=== PATIENT | female | born 1960 | race Caucasian/White ===

== ENCOUNTER → 2020-05-19 08:50 | Outpatient (CLI) | payer OTHER, SELFPAY ==
[2020-05-19 10:17] LABS: Absolute Lymphocyte Count 1.46 X10^3/uL (0.83-4.51); Absolute Neutrophil Count 1.9 X10^3/uL (2.0-7.7); Basophil# 0.01 X10^3/uL; Basophil% 0.2 % (0-1); Eosinophil# 0.21 X10^3/uL; Eosinophils% 5.2 % (0-5); Hematocrit 38.2 % (37-47); Hemoglobin 11.6 g/dL (12.0-15.0); Lymphocyte # 1.46 X10^3/ul (4.0); Lymphocyte % 36.1 % (19-41); Mean Corp Hgb Conc 30.4 g/dL (32-36); Mean Corpuscular Hgb 26.2 pg (27.0-32.0); Mean Corpuscular Volume 86.2 fL (81-99); Mean Platelet Vol. 10.5 fl (6.2-12.0); Monocyte# 0.41 X10^3/uL; Monocyte% 10.1 % (0-10); NRBC Flagged by Analyzer 0 % (0-5); Neutrophil # 1.93 X10^3/uL (2.7-7.7); Neutrophil % 47.9 % (47-70); Platelet Count 164 K/mm3 (150-450); RBC Distribution Width CV 19.5 % (11.6-14.6); RBC Distribution Width SD 57.8 fl (35.1-43.9); Red Blood Count 4.43 M/mm3 (4.2-5.4)
[2020-05-19 10:42] LABS: Hemoglobin A1c 5.6 % (3.8-5.6)
[2020-05-19 10:47] LABS: ALB/GLOB Ratio 1.5 RATIO (0.9-2.4); AST(SGOT) 15 U/L (15-37); Alanine Aminotransfer ALT/SGPT 22 U/L (13-56); Alkaline Phosphatase 73 U/L (45-117); Anion Gap 4 (5-15); BUN 17 mg/dL (7-18); BUN/Creat Ratio 23.2 RATIO (10-20); Calcium,Total 9.1 mg/dL (8.5-10.1); Chloride 110 mmol/L (98-107); Cholesterol 171 mg/dL (200); Creatinine, Serum 0.73 mg/dL (0.55-1.02); EST Glomerular Filtration Rate 86 mL/min (>60); Est Glom Filt Rate - Afr Amer 104 mL/min (>60); Globulin 2.7 g/dL (2.2-4.2); Glucose 100 mg/dL (74-106); High Density Lipoprotein 58 mg/dL; Potassium 4.4 mmol/L (3.5-5.1); Protein, Total 6.7 g/dL (6.4-8.2); Sodium Level 144 mmol/L (136-145); Thyroid Stim Hormone (TSH) 2.87 uIU/mL (0.358-3.74); Triglycerides 63 mg/dL; Very Low Density Lipoprotein 13 mg/dL (5-40)
== END ==
PROVIDERS: PCP Family Medicine; Referring Provider Family Medicine; Visit Provider Family Medicine
DX: I10 Essential (primary) hypertension (principal); R73.01 Impaired fasting glucose; E03.9 Hypothyroidism, unspecified
CPT/HCPCS: 36415; 80053; 80061; 83036; 84443; 85025

== ENCOUNTER 2021-03-15 12:00 | Outpatient (CLI) | payer OTHER, SELFPAY ==
--- NOTE | 2021-03-15 12:05 | RAD_ITS ---
STUDY: X-RAY CHEST REASON FOR EXAM: Female, 60 years old. Elevated d-dimer. COVID. TECHNIQUE: Frontal and lateral views of the chest. COMPARISON: None. FINDINGS: The lungs are clear and expanded. There is no demonstrated pleural abnormality. Normal size heart. Normal mediastinum and kathrine. Normal visualized pulmonary arteries. Normal visualized aortic arch and descending thoracic aorta. Thoracic spondylosis. Normal visualized ribs, clavicles, and shoulders. There is no demonstrated abnormality of the visualized soft tissue structures of the upper abdomen. RAD/Chest PA and Lateral IMPRESSION: No active or acute cardiopulmonary disease. Electronically Signed: Mohit Cerna MD at 9:20 EST , Service support ,
[2021-03-15 15:22] LABS: Hematocrit 38.6 % (37-47); Mean Corp Hgb Conc 31.1 g/dL (32-36); Mean Corpuscular Hgb 25.3 pg (27.0-32.0); Mean Corpuscular Volume 81.4 fL (81-99); Mean Platelet Vol. 10.6 fl (6.2-12.0); Platelet Count 224 K/mm3 (150-450); RBC Distribution Width CV 17.3 % (11.6-14.6); RBC Distribution Width SD 49.9 fl (35.1-43.9); Red Blood Count 4.74 M/mm3 (4.2-5.4); White Blood Count 6.5 K/mm3 (4.4-11.0)
[2021-03-15 15:43] LABS: Anion Gap 8 (5-15); BUN 13 mg/dL (7-18); Calcium,Total 9.2 mg/dL (8.5-10.1); Chloride 111 mmol/L (98-107); Creatinine, Serum 0.87 mg/dL (0.55-1.02); EST Glomerular Filtration Rate 71 mL/min (>60); Est Glom Filt Rate - Afr Amer 86 mL/min (>60); Glucose 103 mg/dL (74-106); Potassium 3.6 mmol/L (3.5-5.1); Sodium Level 143 mmol/L (136-145)
[2021-03-15 15:51] LABS: D-Dimer Quantitative (DVT/PE) 0.82 FEU/ug/m (0.27-0.49)
== END 2021-03-15 23:59 | disposition short-term general hospital (02) ==
LOC: MTLAB 12:02
PROVIDERS: Referring Provider Family Medicine; Visit Provider Family Medicine
DX: U07.1 COVID-19 (principal)
CPT/HCPCS: 36415; 71046; 80048; 85027; 85379

== ENCOUNTER 2021-03-15 17:18 | Outpatient (CLI) | payer OTHER, SELFPAY ==
--- NOTE | 2021-03-15 17:19 | CT_ITS ---
STUDY: CTA CHEST REASON FOR EXAM: Female, 60 years old. elevated ddimer RADIATION DOSAGE (If Supplied By Facility): CTDIvol = ( 17.53 ) mGy, DLP = ( 440.66 ) mGycm TECHNIQUE: The examination was performed with the intravenous administration of IV 100mL Isovue-370. Post-processing of the angiographic images was performed, with multiplanar reformation and 3D reconstruction. Individualized dose optimization techniques were used for this CT. COMPARISON: None. FINDINGS: Normal enhancement of the main pulmonary artery and right and left pulmonary arteries. Normal enhancement of the bilateral peripheral pulmonary arteries. There is no demonstrated pulmonary embolism. Normal thoracic aorta and visualized great vessels. There is no demonstrated aortic dissection. Normal heart and pericardium. Normal mediastinum. Normal hilar regions. Normal visualized trachea and bronchi. The lungs are well expanded. Minimal subsegmental atelectasis or scarring at left base.. Normal pleura. Normal chest wall structures. Dorsal spine demonstrates arthritic changes. Small calcified nodule in left lobe of the liver.. CT/CTA Chest W/WO Contrast IMPRESSION: Minimal scarring or subsegmental atelectasis at left base. No acute cardiopulmonary pathology. No evidence for pulmonary embolus Electronically Signed: Jaren Guardado MD at 18:20 EST , Service support ,
== END 2021-03-15 23:59 | disposition short-term general hospital (02) ==
LOC: CT 17:19
PROVIDERS: PCP Family Medicine; Referring Provider Family Medicine; Visit Provider Family Medicine
DX: R79.1 Abnormal coagulation profile (principal)
CPT/HCPCS: 71275; Q9967

== ENCOUNTER 2021-04-20 17:02 | Outpatient (CLI) | payer OTHER, SELFPAY ==
[2021-04-20 18:41] LABS: ALB/GLOB Ratio 1.1 RATIO (0.9-2.4); AST(SGOT) 16 U/L (15-37); Alanine Aminotransfer ALT/SGPT 27 U/L (13-56); Albumin, Serum 3.9 g/dL (3.2-5.0); Alkaline Phosphatase 74 U/L (45-117); Anion Gap 5 (5-15); BUN 11 mg/dL (7-18); BUN/Creat Ratio 18.5 RATIO (10-20); Calcium,Total 8.6 mg/dL (8.5-10.1); Chloride 110 mmol/L (98-107); Cholesterol 173 mg/dL (200); EST Glomerular Filtration Rate 109 mL/min (>60); Est Glom Filt Rate - Afr Amer 132 mL/min (>60); Globulin 3.4 g/dL (2.2-4.2); Glucose 121 mg/dL (74-106); High Density Lipoprotein 47 mg/dL; Potassium 3.4 mmol/L (3.5-5.1); Protein, Total 7.3 g/dL (6.4-8.2); Sodium Level 142 mmol/L (136-145); Triglycerides 127 mg/dL; Very Low Density Lipoprotein 25 mg/dL (5-40)
== END 2021-04-20 23:59 | disposition home or self-care (01) ==
LOC: MFPLAB 17:03
PROVIDERS: PCP Family Medicine; Referring Provider Family Medicine; Visit Provider Family Medicine
DX: I10 Essential (primary) hypertension (principal); E03.9 Hypothyroidism, unspecified
CPT/HCPCS: 36415; 80053; 80061; 84443

== ENCOUNTER → 2022-05-06 | Outpatient (CLI) | payer OTHER, SELFPAY ==
[2022-05-06 10:43] LABS: Microalbumin,Random Urine 20.2 mg/L (NO RANGE EST.)
[2022-05-06 11:01] LABS: ALB/GLOB Ratio 1.5 RATIO (0.9-2.4); AST(SGOT) 17 U/L (15-37); Alanine Aminotransfer ALT/SGPT 21 U/L (13-56); Albumin, Serum 4.1 g/dL (3.2-5.0); Alkaline Phosphatase 72 U/L (45-117); Anion Gap 7 (5-15); BUN 20 mg/dL (7-18); BUN/Creat Ratio 28.4 RATIO (10-20); Chloride 106 mmol/L (98-107); Cholesterol 184 mg/dL (200); EST Glomerular Filtration Rate 90 mL/min (>60); Est Glom Filt Rate - Afr Amer 108 mL/min (>60); Globulin 2.8 g/dL (2.2-4.2); Glucose 159 mg/dL (74-106); High Density Lipoprotein 50 mg/dL; Potassium 3.5 mmol/L (3.5-5.1); Protein, Total 6.9 g/dL (6.4-8.2); Sodium Level 142 mmol/L (136-145); Thyroid Stim Hormone (TSH) 3.72 uIU/mL (0.358-3.74); Triglycerides 95 mg/dL; Very Low Density Lipoprotein 19 mg/dL (5-40)
[2022-05-06 11:07] LABS: Hemoglobin A1c 6.4 % (3.8-5.6)
== END | disposition home or self-care (01) ==
LOC: MTLAB 07:59
PROVIDERS: PCP Family Medicine; Referring Provider Family Medicine; Visit Provider Family Medicine
DX: I10 Essential (primary) hypertension (principal); E11.9 Type 2 diabetes mellitus without complications; E03.9 Hypothyroidism, unspecified
CPT/HCPCS: 36415; 80053; 80061; 82043; 83036; 84443

== ENCOUNTER → 2022-10-27 | Outpatient (CLI) | payer OTHER, SELFPAY ==
--- NOTE | 2022-10-31 07:44 | PFT ---
INTRODUCTION: The patient is a 62-year-old female who presents for pulmonary function studies secondary to a diagnosis of asthma. Respiratory therapy reported good patient effort. Bronchodilators were used during testing. INTERPRETATION: Forced expiration spirometry demonstrates no evidence of a large airways obstructive ventilatory defect. There was no significant response to aerosolized bronchodilators. Spirograms are of good quality and plateau normally. Body plethysmography was performed and revealed a decreased TLC to 3.45 L, 75% of predicted, indicative of a mild restrictive ventilatory impairment. Diffusing capacity by single breath CO was within normal limits. IMPRESSION: Mild restrictive ventilatory impairment with preserved diffusing capacity.
== END | disposition home or self-care (01) ==
LOC: PSN 09:22
PROVIDERS: PCP Family Medicine; Referring Provider Family Medicine; Visit Provider Family Medicine
DX: J45.909 Unspecified asthma, uncomplicated (principal)
CPT/HCPCS: 94060; 94726; 94729

== ENCOUNTER → 2022-12-30 | Outpatient (CLI) | payer OTHER, SELFPAY ==
[2022-12-30 18:27] LABS: Thyroid Stim Hormone (TSH) 1.73 uIU/mL (0.358-3.74)
== END | disposition home or self-care (01) ==
LOC: MTLAB 14:49
PROVIDERS: PCP Family Medicine; Referring Provider Family Medicine; Visit Provider Family Medicine
DX: E03.9 Hypothyroidism, unspecified (principal)
CPT/HCPCS: 36415; 84443

== ENCOUNTER 2024-01-11 17:30 | Inpatient (IN) | payer OTHER, SELFPAY ==
[2024-01-11] VITALS (8 sets, daily range): BP systolic 145–185; BP diastolic 77–100; PULSE 86–93; RESP 16–30; TEMP 36.6–36.8; O2SAT 92–99; BMI 33.6; BMI 33.0
--- NOTE | 2024-01-11 17:49 | EKG12_ITS ---
Test Reason : Blood Pressure : */* mmHG Vent. Rate : 91 BPM Atrial Rate : 91 BPM P-R Int : 118 ms QRS Dur : 78 ms QT Int : 402 ms P-R-T Axes : 75 24 -12 degrees QTcB Int : 494 ms Normal sinus rhythm Low voltage QRS T WAVE ABNORMALITY, NON SPECIFIC Prolonged QT Abnormal ECG Confirmed by ALFONZO DORMAN, NAVIN ([id number]), movie editor MOMO HENDERSON ([id number]) on 01/15/2024 10:11:25 AM Referred By: Confirmed By: NAVIN MEJÍA MD
--- NOTE | 2024-01-11 17:54 | EDS_ITS ---
HPI <NELA Lanier - Last Filed: 01/11/24 21:09> History of Present Illness Chief Complaint: Abn Labs Narrative Narrative: 63-year-old female with past medical history of hypertension, hypothyroidism, rheumatoid arthritis states she was sent in by her primary care doctor after outpatient blood work this morning showed abnormalities. She states since the beginning of December she was sick having a cough and shortness of breath. She took antibiotics and briefly felt better but then about 5 days ago again developed a dry cough and felt very short of breath on exertion. She states after going up 1 set of stairs she have to rest for about 20 minutes till her breathing would go back to normal. She does also feel slightly short of breath at rest. She states her chest hurts with coughing but denies exertional chest pain. No nausea or vomiting. No fever or chills. She has a history of asthma and uses a rescue inhaler as needed. She has never been smoker. [facility] <NELA Lanier - Last Filed: 01/11/24 21:09> [facility] Medical History (Updated 01/11/24 @ 22:23 by Annika Adam) Hypothyroidism Diabetes Migraines Hypertension Arthritis Asthma Rheumatoid arthritis Home Medications ?Medication ?Instructions ?Recorded ?Last Taken ?Type albuterol sulfate 2.5 mg/3 mL 1 inhalation UD 01/11/24 Unknown History (0.083 %) solution for nebulization albuterol sulfate 90 mcg/actuation 1 puff inhalation Q6H PRN PRN 01/11/24 Unknown History aerosol inhaler shortness of breath or wheezing fluticasone fur. 100 mcg-umeclid 1 ea inhalation DAILY 01/11/24 Unknown History 62.5 mcg-vilant 25 mcg inhalat.powder (Trelegy Ellipta) folic acid 1 mg tablet 1 mg PO DAILY 01/11/24 Unknown History hydroxychloroquine 200 mg tablet 200 mg PO DAILY 01/11/24 Unknown History infliximab-abda 100 mg intravenous IV Q7W RA 01/11/24 11/03/23 History solution (Renflexis) ipratropium bromide 42 mcg (0.06 2 spray intranasal TID 01/11/24 Unknown History %) nasal spray levothyroxine 25 mcg tablet 25 mcg PO DAILY 01/11/24 Unknown History lisinopril 20 mg tablet 20 mg PO DAILY 01/11/24 Unknown History metformin 500 mg tablet,extended 1,000 mg PO DAILY 01/11/24 Unknown History release 24 hr methotrexate sodium 2.5 mg tablet 20 mg PO QWEEK 01/11/24 Unknown History montelukast 10 mg tablet 10 mg PO DAILY 01/11/24 Unknown History tizanidine 2 mg tablet 2 - 6 mg PO QHS PRN PRN muscle 01/11/24 Unknown History spasticity Allergy/AdvReac Type Severity Reaction Status Date / Time No Known Allergies Allergy Verified 01/11/24 17:31 Surgical History (Updated 01/11/24 @ 22:23 by Annika Adam) History of appendectomy History of cholecystectomy Social History Smoking Status: Never smoker ROS <NELA Lanier - Last Filed: 01/11/24 21:09> ROS ED ROS Narrative Constitutional: Negative for fever, chills, malaise. CVS: Negative for chest pain, syncope. Respiratory: Negative for shortness of breath, cough, orthopnea. GI: Negative for abdominal pain, nausea, vomiting, diarrhea, constipation, melena, hematochezia. : Negative for dysuria, hematuria or frequency. Neuro: Negative for headache, motor/sensory dysfunction. Skin: Negative for rash, abscess, or wound. Musc: Negative for joint pain, swelling, trauma. Heme: Negative for easy bruising, bleeding, lymphadenopathy. EXAM <NELA Lanier - Last Filed: 01/11/24 21:09> Physical Exam Narrative Exam Narrative: CONST: Patient sitting in no acute distress. EYES: Normal inspection. NECK: Normal inspection. RESP: No respiratory distress, CTAB. CVS: Regular rate and rhythm, no murmur, no gallop. SKIN: Color normal, no rash, warm, dry, intact. EXTREMITIES: Normal appearance, no pedal edema. NEURO: Alert and answering questions appropriately. PSYCH: Normal affect. Const Vital Signs: 01/11/24 17:31 01/11/24 18:08 01/11/24 18:08 Temperature 98 F 98 F Temperature Source Temporal Temporal Pulse Rate 91 93 Respiratory Rate 16 21 H Respiratory Effort Normal Respiratory Depth Respiratory Pattern Normal Blood Pressure 159/100 H 155/78 H Blood Pressure Mean 119 103 Pulse Ox 99 96 Oxygen Delivery Method Room Air 11/07/24 19:06 01/11/24 19:31 01/11/24 19:58 Temperature 98.1 F Temperature Source Temporal Pulse Rate 86 92 Respiratory Rate 23 H 18 Respiratory Effort Normal Non-Labored Respiratory Depth Normal Respiratory Pattern Normal Blood Pressure 185/92 H Blood Pressure Mean 123 Pulse Ox 94 98 Oxygen Delivery Method Room Air Room Air 01/11/24 20:00 01/11/24 21:00 Temperature 98 F 98.2 F Temperature Source Oral Oral Pulse Rate 91 91 Respiratory Rate 25 H 30 H Respiratory Effort Respiratory Depth Respiratory Pattern Blood Pressure 157/77 H 173/87 H Blood Pressure Mean 103 115 Pulse Ox 92 96 Oxygen Delivery Method Room Air Room Air <Dr. Corey De Jesus DO - Last Filed: 01/11/24 23:00> Physical Exam Const Vital Signs: 01/11/24 17:31 01/11/24 18:08 01/11/24 18:08 Temperature 98 F 98 F Temperature Source Temporal Temporal Pulse Rate 91 93 Respiratory Rate 16 21 H Respiratory Effort Normal Respiratory Depth Respiratory Pattern Normal Blood Pressure 159/100 H 155/78 H Blood Pressure Mean 119 103 Pulse Ox 99 96 Oxygen Delivery Method Room Air 01/11/24 19:06 01/11/24 19:31 01/11/24 19:58 Temperature 98.1 F Temperature Source Temporal Pulse Rate 86 92 Respiratory Rate 23 H 18 Respiratory Effort Normal Non-Labored Respiratory Depth Normal Respiratory Pattern Normal Blood Pressure 185/92 H Blood Pressure Mean 123 Pulse Ox 94 98 Oxygen Delivery Method Room Air Room Air 01/11/24 20:00 01/11/24 21:00 Temperature 98 F 98.2 F Temperature Source Oral Oral Pulse Rate 91 91 Respiratory Rate 25 H 30 H Respiratory Effort Respiratory Depth Respiratory Pattern Blood Pressure 157/77 H 173/87 H Blood Pressure Mean 103 115 Pulse Ox 92 96 Oxygen Delivery Method Room Air Room Air MDM <NELA Lanier - Last Filed: 01/11/24 21:09> [facility] Narrative Medical decision making narrative: History gathered from: Patient, family members Differential: NSTEMI, pneumonia, PE among others Consults: Cardiology, hospitalist Patient was sent in for abnormal labs. She has had recent cough and dyspnea on exertion. She appears well and nontoxic. BP is slightly elevated 159/100, otherwise normal vital signs. Heart is regular rate and rhythm and lungs are clear. Overall exam is unremarkable. Outpatient labs from this morning show her troponin was 570 and it is trended up to 581. EKG is sinus rhythm with some T wave inversions in the lateral leads and flattening/depression of the ST segment in anterior lateral leads with no prior EKG for comparison. She does not have active chest pain but with recent exertional dyspnea this is concerning for NSTEMI versus rule out PE. She is also anemic at 8.9 but denies any source of bleeding. Prior to this she was 12.0 in 2021. She had an outpatient chest x-ray done earlier today which shows no acute process. D-dimer was high so CTA was ordered and shows no pulmonary embolism but there is a left lower lobe atelectasis versus infiltrate with small effusion. Since patient has had a cough and has a white count of 13.2 treat for pneumonia with Rocephin and Zithromax. I discussed the case with cardiology, Dr. Cintron who reviewed the EKG. He recommended giving the patient Lovenox and requested that repeat cardiac enzymes and EKG to be done in the morning. Case will be discussed with the hospitalist for admission. Lab Data Attestation: I reviewed the patient's lab results. Labs: Laboratory Results - last 24 hr 01/11/24 18:00 WBC 13.2 H RBC 3.66 L Hgb 8.9 L Hct 28.8 L MCV 78.7 L MCH 24.3 L MCHC 30.9 L RDW Std Deviation 52.1 H RDW Coeff of Jeison 18.7 H Plt Count 380 MPV 8.9 Immature Gran % (Auto) 2.900 H Neut % (Auto) 75.2 H Lymph % (Auto) 11.1 L [place] % (Auto) 9.2 Eos % (Auto) 1.1 Baso % (Auto) 0.5 Absolute Neuts (auto) 9.9 H Absolute Lymphs (auto) 1.46 Nucleated RBC % 0.2 D-Dimer Quant (PE/DVT) 1.58 H* Sodium 138 Potassium 3.3 L Chloride 106 Carbon Dioxide 25.0 Anion Gap 6 BUN 9 Creatinine 0.65 Estim Creat Clear Calc 88.73 Est GFR (MDRD) Af Amer 118 Est GFR (MDRD) Non-Af 98 BUN/Creatinine Ratio 13.8 Glucose 165 H Calcium 8.9 Troponin I High Sens 581 H* Radiography Diagnostic Testing: Clinical Impression(s) from Imaging Studies Chest CTA 01/11/24 18:32 IMPRESSION: Normal CTA chest examination, without a demonstrated pulmonary embolism or arterial dissection. Atelectasis or infiltrate in the left lung base with small effusion. Electronically Signed: Emiliano Regalado MD at 19:57 EST , EKG Initial EKG: Attestation: I personally reviewed and interpreted this EKG as follows: Interpretation: Sinus Rhythm Comments: Normal sinus rhythm at 91 bpm Inverted T waves lateral leads No acute ST elevation Prolonged QTc 494 ms Prior EKG tracings: not available for review Prior: No Prior <Dr. Corey De Jesus, - Last Filed: 01/11/24 23:00> [facility] Lab Data Labs: Laboratory Results - last 24 hr 01/11/24 18:00 WBC 13.2 H RBC 3.66 L Hgb 8.9 L Hct 28.8 L MCV 78.7 L MCH 24.3 L MCHC 30.9 L RDW Std Deviation 52.1 H RDW Coeff of Jeison 18.7 H Plt Count 380 MPV 8.9 Immature Gran % (Auto) 2.900 H Neut % (Auto) 75.2 H Lymph % (Auto) 11.1 L [place] % (Auto) 9.2 Eos % (Auto) 1.1 Baso % (Auto) 0.5 Absolute Neuts (auto) 9.9 H Absolute Lymphs (auto) 1.46 Nucleated RBC % 0.2 D-Dimer Quant (PE/DVT) 1.58 H* Sodium 138 Potassium 3.3 L Chloride 106 Carbon Dioxide 25.0 Anion Gap 6 BUN 9 Creatinine 0.65 Estim Creat Clear Calc 88.73 Est GFR (MDRD) Af Amer 118 Est GFR (MDRD) Non-Af 98 BUN/Creatinine Ratio 13.8 Glucose 165 H Calcium 8.9 Troponin I High Sens 581 H* Radiography Diagnostic Testing: Clinical Impression(s) from Imaging Studies Chest CTA 01/11/24 18:32 IMPRESSION: Normal CTA chest examination, without a demonstrated pulmonary embolism or arterial dissection. Atelectasis or infiltrate in the left lung base with small effusion. Electronically Signed: Emiliano Regalado MD at 19:57 EST , Treatment and Re-Evaluation :: I have personally performed a face to face assessment of the patient and have reviewed the PETER Note. I performed a substantive portion of the visit including all aspects of the following. My day findings include: History: Patient presents with shortness of breath that has been getting worse over the past 3 to 4 days. Patient is also noted some increased swelling in her legs. Patient states her breathing is worse with any exertion. Patient states that whenever she goes up a flight of stairs, she has to stay there for several minutes until she cannot catch her breath. Patient states she has been taking some Mucinex which has been helping with her cough. Patient denies any sputum production. Patient does admit to some pain in her left scapula. Patient denies any nausea or vomiting. Patient denies any fevers or chills. Exam: Vital signs are stable. Patient is afebrile. Patient is in no acute distress. Oral mucosa is pink and moist. Neck is supple. Trachea is midline. There is no JVD. Heart with regular rate and rhythm. Lungs are diminished bilaterally. There is adequate respiratory effort noted. Abdomen is soft. Bowel sounds are normal. There is no tenderness. Cranial nerves II through XII are intact. There are no focal motor or sensory deficits noted. Medical Decision Making: Differential diagnosis includes cardiac dysrhythmia, cardiac ischemia, electrolyte abnormality, pneumonia, pulmonary embolism, and bronchitis. CBC will be obtained to assess for leukocytosis and anemia. Basic metabolic profile will be obtained to assess for electrolyte abnormality and renal function. High-sensitivity troponin will be obtained to assess for cardiac ischemia. D-dimer will be obtained to assess for pulmonary embolism. EKG will be obtained to assess for cardiac dysrhythmia and cardiac ischemia. CTA of the chest will be obtained to assess for pulmonary embolism pneumonia and bronchitis. Patient was given aspirin here. EKG was obtained. On my independent interpretation it shows a normal sinus rhythm with a rate of 91. There are nonspecific ST-T wave changes noted in the lateral leads. There is no ST elevation noted. CBC was reviewed and showed a mild leukocytosis of 13.2. There is a mild anemia with a hemoglobin of 8.9 and hematocrit of 28.8. Basic metabolic profile was reviewed. Potassium was slightly low at 3.3. Glucose is slightly elevated at 165. D-dimer was reviewed and was elevated at 1.58. High- sensitivity troponin was reviewed and was elevated at 581. Because of the elevated D-dimer, CTA of the chest was obtained. There is no evidence of pulmonary embolism or aortic dissection. This was interpreted by the radiologist and was also dependently reviewed by myself. Patient was advised of her findings. Case was discussed with Dr. Cintron from cardiology. He recommended starting the patient on Lovenox. Case was discussed with the hospitalist. He will admit the patient to his service. Patient understood and was agreeable with the plan. All questions were answered. Discharge Plan Dx/Rx/DC Orders Clinical Impression: Pneumonia, Nonspecific ST-T wave electrocardiographic changes, Elevated tr oponin Disposition Disposition: Acute Care Hospital [facility] Discharge Date/Time: 01/11/24 21:53
[2024-01-11 18:17] LABS: Absolute Lymphocyte Count 1.46 X10^3/uL (0.83-4.51); Absolute Neutrophil Count 9.9 X10^3/uL (2.0-7.7); Basophil# 0.07 X10^3/uL; Basophil% 0.5 % (0-1); Eosinophil# 0.15 X10^3/uL; Eosinophils% 1.1 % (0-5); Hematocrit 28.8 % (37-47); Hemoglobin 8.9 g/dL (12.0-15.0); Lymphocyte # 1.46 X10^3/ul (0.83-4.51); Lymphocyte % 11.1 % (19-41); Mean Corp Hgb Conc 30.9 g/dL (32-36); Mean Corpuscular Hgb 24.3 pg (27.0-32.0); Mean Corpuscular Volume 78.7 fL (81-99); Mean Platelet Vol. 8.9 fl (6.2-12.0); Monocyte# 1.22 X10^3/uL; Monocyte% 9.2 % (0-10); NRBC Flagged by Analyzer 0.2 % (0-5); Neutrophil # 9.93 X10^3/uL (2.7-7.7); Neutrophil % 75.2 % (47-70); Platelet Count 380 K/mm3 (150-450); RBC Distribution Width CV 18.7 % (11.6-14.6); RBC Distribution Width SD 52.1 fl (35.1-43.9); Red Blood Count 3.66 M/mm3 (4.2-5.4); White Blood Count 13.2 K/mm3 (4.4-11.0)
[2024-01-11] MEDS: Aspirin 325 MG Tablet PO (18:21)
[2024-01-11 18:29] LABS: D-Dimer Quantitative (DVT/PE) 1.58 FEU/ug/m (0.27-0.49)
--- NOTE | 2024-01-11 18:32 | CT_ITS ---
STUDY: CTA CHEST REASON FOR EXAM: Female, 63 years old. dyspnea, high d dimer RADIATION DOSAGE (If Supplied By Facility): CTDIvol = ( 11.19 ) mGy, DLP = ( 484.20 ) mGycm TECHNIQUE: The examination was performed with the intravenous administration of IV 100mL Isovue-370. Post-processing of the angiographic images was performed, with multiplanar reformation and 3D reconstruction. Individualized dose optimization techniques were used for this CT. COMPARISON: None. FINDINGS: Normal enhancement of the main pulmonary artery and right and left pulmonary arteries. Normal enhancement of the bilateral peripheral pulmonary arteries. There is no demonstrated pulmonary embolism. Normal thoracic aorta and visualized great vessels. There is no demonstrated aortic dissection. Normal heart and pericardium. Normal mediastinum. Normal hilar regions. Normal visualized trachea and bronchi. The lungs are well expanded. Right lung is clear. On the left there is streaky and patchy pulmonary opacities of the lung bases consistent with atelectasis or infiltrate. There is also a very small left pleural effusion. There are degenerative changes of thoracic spine. Normal visualized upper abdomen. CT/CTA Chest W/WO Contrast IMPRESSION: Normal CTA chest examination, without a demonstrated pulmonary embolism or arterial dissection. Atelectasis or infiltrate in the left lung base with small effusion. Electronically Signed: Emiliano Regalado MD at 19:57 EST ,
[2024-01-11 18:35] LABS: Anion Gap 6 (5-15); BUN 9 mg/dL (7-18); BUN/Creat Ratio 13.8 RATIO (10-20); Calcium,Total 8.9 mg/dL (8.5-10.1); Chloride 106 mmol/L (98-107); Creatinine, Serum 0.65 mg/dL (0.55-1.02); EST Glomerular Filtration Rate 98 mL/min (>60); Est Glom Filt Rate - Afr Amer 118 mL/min (>60); Estimated Creatinine Clearance 88.73 ml/min; Glucose 165 mg/dL (74-106); Potassium 3.3 mmol/L (3.5-5.1); Sodium Level 138 mmol/L (136-145); Troponin-I HS 581 pg/mL (3.0-54.0)
[2024-01-11] MEDS: Ceftriaxone 1 GM/50 ML BAG IV (20:31)
[2024-01-11] MEDS: Enoxaparin 100 MG/ML Syringe 85 MG SC (20:32)
--- NOTE | 2024-01-11 20:51 | HP.PCM.HOS_ITS ---
HPI - General General
--- NOTE | 2024-01-11 20:51 | PCM.HP.STD ---
[facility] - General General Date of Admission: 01/11/24 Date of Service: 01/11/24 Chief Complaint: Chest Pain, Cough and GUTIERREZ. HPI Narrative JAYLIN CARROLL, is a 63 F with a past medical history of essential hypertension, hypothyroidism, obesity; with BMI of 33.7 present on admission, DM-2; of unknown control on Farxiga and Metformin, RA; on Hydroxychloroquine and Methotrexate, history of asthma, OA and recently diagnosed respiratory illness with likely bronchitis in early December 2023 for which she was treated with a course of oral antibiotics with subsequent improvement who presents to [facility] ER complaining of chest pain, cough and dyspnea on exertion. Ms. Carroll reports her symptoms began approximately 5 days prior to admission with a dry cough and GUTIERREZ that has progressively worsened since that time. She then has to rest ~20 minutes after climbing a flight of stairs which is new and unusual for her so she went to be evaluated by her PCP. She denies associated chest pain, palpitations, heart racing, fever, chills, nausea, vomiting or diaphoresis. She also denies a history of tobacco abuse or known CAD. Her PCP ordered outpatient labs that revealed an elevated troponin of 570 pg/mL consistent with suspected NSTEMI so she was sent in to the ER for further evaluation and treatment. In the ER she was noted to have an elevated d-dimer of 1.58 present on admission with CT evidence of LLL infiltrate consistent with Community-Acquired Pneumonia with a corresponding Leukocytosis of 13.2K with Left-shift (2.9%) of immature granulocytes present on admission with a follow up troponin in the ER trending up to 581 pg/mL this evening compounded by laboratory evidence of hypokalemia of 3.3 mmol/L present on admission and she was then admitted to the PCU for ongoing care for a stay that is expected to extend beyond 2 midnights. [facility] Medical History (Updated 01/12/24 @ 03:[address] Zeke Silva, ) Hypothyroidism Diabetes Migraines Hypertension Arthritis Asthma Rheumatoid arthritis Home Medications ?Medication ?Instructions ?Recorded ?Last Taken ?Type albuterol sulfate 2.5 mg/3 mL 1 inhalation DAILY PRN PRN sob 01/11/24 Unknown History (0.083 %) solution for nebulization albuterol sulfate 90 mcg/actuation 1 puff inhalation Q6H PRN PRN 01/11/24 Unknown History aerosol inhaler shortness of breath or wheezing fluticasone fur. 100 mcg-umeclid 1 ea inhalation DAILY 01/11/24 Unknown History 62.5 mcg-vilant 25 mcg inhalat.powder (Trelegy Ellipta) folic acid 1 mg tablet 1 mg PO DAILY 01/11/24 Unknown History hydroxychloroquine 200 mg tablet 200 mg PO DAILY 01/11/24 Unknown History infliximab-abda 100 mg intravenous IV Q7W RA 01/11/24 11/03/23 History solution (Renflexis) ipratropium bromide 42 mcg (0.06 2 spray intranasal TID PRN sinus 01/11/24 Unknown History %) nasal spray symptoms levothyroxine 25 mcg tablet 25 mcg PO DAILY 01/11/24 Unknown History lisinopril 20 mg tablet 20 mg PO DAILY 01/11/24 Unknown History metformin 500 mg tablet,extended 1,000 mg PO DAILY 01/11/24 Unknown History release 24 hr methotrexate sodium 2.5 mg tablet 20 mg PO QWEEK RA 01/11/24 01/07/24 History montelukast 10 mg tablet 10 mg PO DAILY 01/11/24 Unknown History tizanidine 2 mg tablet 2 - 6 mg PO QHS PRN PRN muscle 01/11/24 Unknown History spasticity naproxen 500 mg tablet 500 mg PO BID arthritis 01/12/24 01/11/24 09:00 History 500 mg Allergy/AdvReac Type Severity Reaction Status Date / Time No Known Allergies Allergy Verified 01/11/24 17:31 Surgical History (Updated 01/11/24 @ 22:23 by Annika Adam) History of appendectomy History of cholecystectomy Social History Smoking Status: Never smoker ROS ROS Narrative Review of Systems: Constitutional: Patient denies fever or chills. Eyes: Patient denies changes in vision or discharge from eyes. ENT: Patient denies runny nose, sore throat or ear pain. Resp: Patient admits to progressively worsening GUTIERREZ and nonproductive cough as per HPI. CV: Patient denies chest pain, palpitations or heart racing. GI: Patient denies abdominal pain, nausea, vomiting, diarrhea or constipation. : Patient denies dysuria or hematuria. MSK: Patient denies arthralgias or myalgias. Skin: Patient denies rash, abscess or jaundice. Psych: Patient denies symptoms of uncontrolled depression or anxiety. Neuro: Patient denies headache, paresthesias or focal neurologic deficits. Allergy: Patient denies lip swelling, tongue swelling or urticaria. Hematology: Patient denies easy bleeding or easy bruisability. Endocrinology: Patient denies polyuria, polydipsia or polyphagia. !4 point ROS otherwise negative except for positives noted above in HPI. Vital Signs Vital Signs Vital Signs: 01/11/24 17:31 01/11/24 18:08 01/11/24 18:08 Temperature 98 F 98 F Temperature Source Temporal Temporal Pulse Rate 91 93 Respiratory Rate 16 21 H Respiratory Effort Normal Respiratory Depth Respiratory Pattern Normal Blood Pressure 159/100 H 155/78 H Blood Pressure Mean 119 103 Pulse Ox 99 96 Oxygen Delivery Method Room Air 01/11/24 19:06 01/11/24 19:31 01/11/24 19:58 Temperature 98.1 F Temperature Source Temporal Pulse Rate 86 92 Respiratory Rate 23 H 18 Respiratory Effort Normal Non-Labored Respiratory Depth Normal Respiratory Pattern Normal Blood Pressure 185/92 H Blood Pressure Mean 123 Pulse Ox 94 98 Oxygen Delivery Method Room Air Room Air Weight Weight: 184 lb Body Mass Index (BMI) 33.6 Physical Exam Const alert, oriented x3 and no apparent distress Constitutional Narrative: Obese. General Appearance: cooperative HEENT normocephalic, head/scalp atraumatic, hearing grossly normal bilaterally and moist oral mucous membranes Eyes PERRL and EOMs intact bilaterally Neck no lymphadenopathy and supple Resp Resp Narrative: Decreased breath sounds over LLL. Cardio regular rate and regular rhythm GI normal to inspection, nondistended, normoactive bowel sounds, soft to palpation, non-tender and non-distended GI Narrative: Obese. Extremity normal to inspection, full ROM and no clubbing, cyanosis or edema Skin Skin Narrative: Patient has no evidence of rash, abscess or jaundice. Neuro oriented x3, CN's II-XII intact bilaterally, moves all extremities and no focal motor deficits Sensorium / Orientation: awake, alert, oriented to person, oriented to place and oriented to time Speech: speech normal Psych affect normal Results Medical Records Data Attestation: I reviewed the patient's medical records Lab / Micro Data Attestation: I reviewed the patient's lab results. 01/11/24 18:00 01/11/24 18:00 Labs: Laboratory Results - last 24 hr 01/11/24 18:00: WBC 13.2 H, RBC 3.66 L, Hgb 8.9 L, Hct 28.8 L, MCV 78.7 L, MCH 24.3 L, MCHC 30.9 L, RDW Std Deviation 52.1 H, RDW Coeff of Jeison 18.7 H, Plt Count 380, MPV 8.9, Immature Gran % (Auto) 2.900 H, Neut % (Auto) 75.2 H, Lymph % (Auto) 11.1 L, [place] % (Auto) 9.2, Eos % (Auto) 1.1, Baso % (Auto) 0.5, Absolute Neuts (auto) 9.9 H, Absolute Lymphs (auto) 1.46, Nucleated RBC % 0.2, D-Dimer Quant (PE/DVT) 1.58 H*, Sodium 138, Potassium 3.3 L, Chloride 106, Carbon Dioxide 25.0, Anion Gap 6, BUN 9, Creatinine 0.65, Estim Creat Clear Calc 88.73, Est GFR (MDRD) Af Amer 118, Est GFR (MDRD) Non-Af 98, BUN/Creatinine Ratio 13.8, Glucose 165 H, Calcium 8.9, Troponin I High Sens 581 H* Imaging Radiology Impression Chest CTA 01/11/24 18:32 IMPRESSION: Normal CTA chest examination, without a demonstrated pulmonary embolism or arterial dissection. Atelectasis or infiltrate in the left lung base with small effusion. Electronically Signed: Emiliano Regalado MD at 19:57 EST , Assessment & Plan Assessment/Plan (1) NSTEMI, initial episode of care: (2) Pneumonia: QUALIFIERS: Laterality: left Lung location: lower lobe of lung Pneumonia type: due to unspecified organism Qualified Code(s): J18.9 - Pneumonia, unspecified organism (3) Hypokalemia: (4) Obesity (BMI 30.0-34.9): (5) Diabetes mellitus, type 2: QUALIFIERS: Diabetes mellitus complication status: without complication Diabetes mellitus senior care insulin use: without senior care use Qualified Code(s): E11.9 - Type 2 diabetes mellitus without complications (6) Rheumatoid arthritis: QUALIFIERS: Rheumatoid arthritis location: unspecified site Rheumatoid factor presence: unspecified presence Qualified Code(s): M06.9 - Rheumatoid arthritis, unspecified PLAN: Plan 1. NSTEMI; evidenced by elevated troponin of 570 pg/mL as outpatient rising to 581 pg/mL present on admission - Admit to PCU for treatment under the NSTEMI protocol. Serialize troponin. Maintain ECASA and full-dose Lovenox plus add Plavix and statin. Check echocardiogram to evaluate LVEF. Give SL NTG prn angina. Give IV Morphine prn for severe (level 6-10/10) pain. Finally, we will consult [facility] to see this patient on-rounds in the AM for further recommendations regarding LHC this admission with help appreciated in advance. 2. CT evidence of LLL infiltrate consistent with Community-Acquired Pneumonia with a corresponding Leukocytosis of 13.2K with Left-shift (2.9%) of immature granulocytes present on admission complicating #1 - Continue IV Rocephin and IV Azithromycin begun in the ER and await culture and sensitivity data. Check urinary antigens for Streptococcus pneumonia and Legionella. Give Tylenol prn for [id number] (level 1-5/10) pain or fever. Give Mucinex 600 mg PO BID. 3. Hypokalemia of 3.3 mmol/L present on admission compounding #1 & #2 - Give supplemental potassium chloride and then recheck level in a.m. to ensure improvement. 4. Obesity; with BMI of 33.7 present on admission - Weight loss will be recommended. Check TSH. This complicates her case and may hamper recovery. 5. DM-2; of unknown control on Farxiga and Metformin adding to the medical complexity of #1 - #3 - Hold Metformin ~72 hours after IV contrast dye. ADA diet. FSBS q. AC/HS plus SSI. Check HgbA1c to objectively evaluate quality of diabetic control. 6. Essential hypertension - Resume current regimen plus give prn Hydralazine IV for systolic blood pressure > 160 mmHg. 7. Hypothyroidism - Current dose of Synthroid to continue as previous. Check TSH. 8. RA; on Hydroxychloroquine and Methotrexate - Maintain current treatment. 9. History of asthma - Stable without evidence of acute flare at this time. Resume prn nebulizers. 10. OA - Give Tylenol prn. 11. DVT prophylaxis - Patient already on full-dose Lovenox for #1. Total time: Approximately (but not less than) 75 minutes. Charges/Coding Visit Charges Inpatient E&M: 10571 Init Hosp L3
[2024-01-11] MEDS: Azithromycin 500 MG in Dextrose 5%-Water (250mL Bag) 250 ML 250 MG IV (21:32)
--- NOTE | 2024-01-11 21:55 | ECHOCS_ITS ---
Reason For Study: S/P ID Procedure This was a 2D Doppler, Color Flow transthoracic echocardiogram. The study was technically difficult. Poor apical accoustic window. Contrast injection was performed. Exam performed portable in patient room. Left Ventricle Normal LV size. Left ventricular systolic function is normal. The estimated ejection fraction is 60 %. No evidence for diastolic dysfunction. Right Ventricle Normal RV size. Normal systolic function. Atria The left atrium is mildly enlarged. Normal right atrium. Port catheter tip noted in right atrium. Mitral Valve The mitral valve is structurally normal. No prolapse or stenosis seen. Mild-Moderate (1-2+) mitral valve insufficiency. Tricuspid Valve Normal tricuspid valve. Moderate (2+) tricuspid valve insufficiency. Pulmonary artery systolic pressure is 33 mmHg. Aortic Valve Trisinus/trileaflet aortic valve. Trivial aortic valve insufficiency. Pulmonic Valve Normal pulmonic valve. Great Vessels Normal aortic root. Pericardium/Pleural No pericardial effusion. MMode/2D Measurements & Calculations LVIDd: 4.7 cm IVSd: 1.0 cm Ao root diam: 3.0 cm LVIDs: 3.1 cm LVPWd: 1.0 cm RVDd: 3.4 cm FS: 34.0 % asc Aorta Diam: 3.7 cm LAV(MOD-bp): 61.3 ml LVAd ap4: 24.5 cm2 LAV(MOD-bp) Indexed: 33.3 ml/m2 LVLd ap4: 7.5 cm LAV(MOD-sp2): 61.4 ml EDV(MOD-sp4): 69.2 ml LAV(MOD-sp4): 60.2 ml EDV(sp4-el): 68.0 ml LVAs ap4: 13.6 cm2 LVLs ap4: 6.0 cm ESV(MOD-sp4): 26.2 ml ESV(sp4-el): 26.3 ml EF(MOD-sp4): 62.1 % EF(sp4-el): 61.3 % SV(MOD-sp4): 42.9 ml SV(sp4-el): 41.7 ml LA A4 area: 20.9 cm2 SI(MOD-sp4): 23.3 ml/m2 LA dimension(2D): 4.1 cm RA A4 area: 15.7 cm2 TAPSE: 1.1 cm Time Measurements MV dec time: 0.16 sec Doppler Measurements & Calculations MV E max jose: 94.0 cm/sec Lat Peak E' Jose: 18.4 cm/sec Med Peak E' Jose: 12.7 cm/sec MV A max jose: 54.1 cm/sec E/E' lat: 5.1 E/E' med: 7.4 MV E/A: 1.7 MV V2 max: 100.8 cm/sec MV P1/2t max jose: 112.0 cm/sec Ao V2 max: 111.8 cm/sec MV max P.1 mmHg MV P1/2t: 53.7 msec Ao max P.0 mmHg MV V2 mean: 59.5 cm/sec Ao V2 mean: 75.4 cm/sec MV mean P.6 mmHg MV dec slope: 610.7 cm/sec2 Ao mean P.6 mmHg MV V2 VTI: 25.5 cm MVA(P1/2t): 4.1 cm2 Ao V2 VTI: 19.2 cm AV (velocity ratio): 0.88 LV V1 max: 85.7 cm/sec MR max jose: 531.2 cm/sec PA V2 max: 81.2 cm/sec LV V1 max P.9 mmHg MR max P.9 mmHg PA V2 mean: 53.0 cm/sec LV V1 mean P.6 mmHg MR mean jose: 436.6 cm/sec LV V1 mean: 58.2 cm/sec MR mean P.4 mmHg LV V1 VTI: 17.0 cm MR VTI: 159.0 cm TR max jose: 272.6 cm/sec TR max P.7 mmHg ECHO/Echo Complete W/ Contrast Interpretation Summary The estimated ejection fraction is 60 %. No evidence for diastolic dysfunction. Mild-Moderate (1-2+) mitral valve insufficiency. Moderate (2+) tricuspid valve insufficiency. The study was technically difficult. Contrast injection was performed. Ordering Physician: Zeke Silva Referring Physician: Paul Huston Performed By: Saray Garcia RDCS, RVT
--- NOTE | 2024-01-11 22:42 | EKG12_ITS ---
Test Reason : NSTEMI ADMIT Blood Pressure : */* mmHG Vent. Rate : 88 BPM Atrial Rate : 88 BPM P-R Int : 122 ms QRS Dur : 82 ms QT Int : 350 ms P-R-T Axes : 74 19 -88 degrees QTcB Int : 423 ms Normal sinus rhythm Nonspecific T wave abnormality Abnormal ECG When compared with ECG of 11-Jan-2024 18:01, MANUAL COMPARISON REQUIRED DATA IS UNCONFIRMED Confirmed by ALFONZO DORMAN, NAVIN ([id number]), non linear editor BENY HARRISON ([id number]) on 01/15/2024 12:36:38 PM Referred By: LAWRENCE Confirmed By: NAVIN MEJÍA MD
[2024-01-11] MEDS: 0.9% Normal Saline (1000mL) 1,000 ML 70 ML IV (23:18)
[2024-01-11] MEDS: Potassium Chloride Oral Tablet 20 MEQ 60 MEQ PO (23:19)
[2024-01-11] MEDS: Atorvastatin Calcium 80 MG Tablet PO (23:19)
[2024-01-11 23:20] LABS: Troponin-I HS 624 pg/mL (3.0-54.0)
[2024-01-11] MEDS: Doxycycline 100 MG in Dextrose 5%-Water (250mL Bag) 250 ML 250 MG IV (23:21)
[2024-01-11] MEDS: Ipratropium Bromide 0.06% NASAL SPRAY 2 SPRAY NASAL (23:22)
[2024-01-11] MEDS: guaiFENesin 600 MG Tablet PO (23:23)
[2024-01-11] MEDS: Acetaminophen 325 MG Tablet 650 MG PO (23:24)
[2024-01-11] MEDS: tiZANidine HCl 2 MG Tablet PO (23:24)
[2024-01-11] MEDS: MELATONIN 3 MG TABLET PO (23:24)
[2024-01-11 23:40] LABS: Bedside Glucose 155 mg/dL (74-106)
[2024-01-12] VITALS (17 sets, daily range): BP systolic 100–168; BP diastolic 62–95; PULSE 77–92; RESP 14–20; TEMP 36.5–37; O2SAT 94–100; BMI 33.3
--- NOTE | 2024-01-12 05:55 | EKG12_ITS ---
Test Reason : PRE-OP Blood Pressure : */* mmHG Vent. Rate : 76 BPM Atrial Rate : 76 BPM P-R Int : 138 ms QRS Dur : 80 ms QT Int : 416 ms P-R-T Axes : 72 31 17 degrees QTcB Int : 468 ms Normal sinus rhythm Nonspecific T wave abnormality Abnormal ECG When compared with ECG of 11-Jan-2024 22:44, MANUAL COMPARISON REQUIRED DATA IS UNCONFIRMED Confirmed by ALFONZO DORMAN, NAVIN ([id number]), digital editor BENY HARRISON ([id number]) on 01/15/2024 12:36:54 PM Referred By: Confirmed By: NAVIN MEJÍA MD
[2024-01-12] MEDS: Ipratropium Bromide 0.06% NASAL SPRAY 2 SPRAY NASAL ×2 (06:12→20:09)
[2024-01-12] MEDS: Levothyroxine 25 MCG TABLET PO (06:13)
[2024-01-12] MEDS: Lisinopril 20 MG Tablet PO (06:14)
[2024-01-12] MEDS: Aspirin 81 MG TAB.CHEW PO (06:14)
[2024-01-12] MEDS: Clopidogrel Bisulfate 75 MG Tablet PO (06:14)
[2024-01-12 06:41] LABS: Absolute Lymphocyte Count 1.67 X10^3/uL (0.83-4.51); Absolute Neutrophil Count 7.3 X10^3/uL (2.0-7.7); Basophil# 0.04 X10^3/uL; Basophil% 0.4 % (0-1); Eosinophil# 0.16 X10^3/uL; Eosinophils% 1.5 % (0-5); Hematocrit 25.7 % (37-47); Hemoglobin 7.9 g/dL (12.0-15.0); Lymphocyte # 1.67 X10^3/ul (0.83-4.51); Mean Corp Hgb Conc 30.7 g/dL (32-36); Mean Corpuscular Hgb 24.1 pg (27.0-32.0); Mean Corpuscular Volume 78.4 fL (81-99); Monocyte# 1.13 X10^3/uL; Monocyte% 10.8 % (0-10); NRBC Flagged by Analyzer 0 % (0-5); Neutrophil # 7.28 X10^3/uL (2.7-7.7); Neutrophil % 69.7 % (47-70); Platelet Count 289 K/mm3 (150-450); RBC Distribution Width SD 52.6 fl (35.1-43.9); Red Blood Count 3.28 M/mm3 (4.2-5.4); White Blood Count 10.5 K/mm3 (4.4-11.0)
--- NOTE | 2024-01-12 06:58 | PCM.PN.HOSP ---
Reason for Visit Reason for Visit: Diagnoses Type 2 diabetes mellitus without complications (01/11/24) Obesity, class 1 (01/11/24) Hypokalemia (01/11/24) Non-ST elevation (NSTEMI) myocardial infarction (01/11/24) Pneumonia, unspecified organism (01/11/24) Rheumatoid arthritis, unspecified (01/11/24) Subjective Subjective Patient denies any further chest tightness or banding around her chest but does states she has reproducible discomfort with palpation to her focal left chest and left shoulder which she reports more severe with coughing and palpation of these regions. She notes feeling less dyspneic and has had less coughing but fatigued. Discussed plan of care with patient given elevated troponins and her current situation with also reviewed with cardiology with plan to continue aspirin, Plavix, Lovenox, maintain on telemetry monitoring, echocardiogram obtained and given hemoglobin mildly decreased and unclear exact baseline plan to obtain guaiac and if this is negative then would pursue cardiac stress testing otherwise patient may need GI evaluation per cardiology request and resolution of her pneumonia prior to cardiac catheterization. She denies any specific black stools or tarry stools or bright red blood. Patient denies fevers, chills, nausea, emesis, abdominal pain. Objective Data Objective Data Vital Signs: Vital Signs Temp Pulse Resp BP Pulse Ox O2 Del Method 98.3 F 77 16 100/62 99 Room Air 01/12/24 06:23 01/12/24 06:23 01/12/24 06:23 01/12/24 06:23 01/12/24 06:23 01/12/24 06:24 Oxygen Delivery Method Room Air Weight: 180 lb 5.41 oz Body Mass Index (BMI) 33.0 Intake & Output: Intake and Output for Last 24 Hours 01/10/24 01/11/24 01/12/24 23:59 23:59 23:59 Intake Total 305 / 305 260 / 260 Output Total 100 / 100 Balance 305 / 205 160 / 160 Lab / Micro Data 01/12/24 10:10 01/12/24 06:24 Labs: Laboratory Results - last 24 hr 01/11/24 18:00: WBC 13.2 H, RBC 3.66 L, Hgb 8.9 L, Hct 28.8 L, MCV 78.7 L, MCH 24.3 L, MCHC 30.9 L, RDW Std Deviation 52.1 H, RDW Coeff of Jeison 18.7 H, Plt Count 380, MPV 8.9, Immature Gran % (Auto) 2.900 H, Neut % (Auto) 75.2 H, Lymph % (Auto) 11.1 L, [place] % (Auto) 9.2, Eos % (Auto) 1.1, Baso % (Auto) 0.5, Absolute Neuts (auto) 9.9 H, Absolute Lymphs (auto) 1.46, Nucleated RBC % 0.2, D-Dimer Quant (PE/DVT) 1.58 H*, Sodium 138, Potassium 3.3 L, Chloride 106, Carbon Dioxide 25.0, Anion Gap 6, BUN 9, Creatinine 0.65, Estim Creat Clear Calc 88.73, Est GFR (MDRD) Af Amer 118, Est GFR (MDRD) Non-Af 98, BUN/Creatinine Ratio 13.8, Glucose 165 H, Calcium 8.9, Troponin I High Sens 581 H* 01/11/24 22:11: POC Glucose 155 H 01/11/24 22:30: Troponin I High Sens 624 H* 01/12/24 06:24: WBC 10.5, RBC 3.28 L, Hgb 7.9 L, Hct 25.7 L, MCV 78.4 L, MCH 24.1 L, MCHC 30.7 L, RDW Std Deviation 52.6 H, RDW Coeff of Jeison 19.0 H, Plt Count 289, MPV 9.0, Immature Gran % (Auto) 1.600 H, Neut % (Auto) 69.7, Lymph % (Auto) 16.0 L, [place] % (Auto) 10.8 H, Eos % (Auto) 1.5, Baso % (Auto) 0.4, Absolute Neuts (auto) 7.3, Absolute Lymphs (auto) 1.67, Nucleated RBC % 0 Radiography Diagnostic Testing: Radiology Impression Chest CTA 01/11/24 18:32 IMPRESSION: Normal CTA chest examination, without a demonstrated pulmonary embolism or arterial dissection. Atelectasis or infiltrate in the left lung base with small effusion. Electronically Signed: Emiliano Regalado MD at 19:57 EST , Physical Exam Narrative Physical Examination: General: Awake, alert, oriented x 3 and cooperative, laying in the PCU bed, fatigued, ill-appearing. Skin: Normal color, normal turgor, no icterus, no cyanosis. HEENT: AT/NC, EOMI, PERRLA, mildly dry MM. Lungs: Mildly diminished, greater bases, left greater than right, no evidence of any distress, no rales, ronchi or wheezing. Heart: Currently regular rate and rhythm; no gallop, rub audible. Repeat reproducible chest discomfort with palpation of the left focal chest and also behind the left shoulder blade. Abdomen: Soft, obese, NTTP, ND, normal BS. Extremities: No cyanosis, clubbing, or edema. Neurological: Patient awake, alert, oriented as noted, cognitive function intact; pupils equally reactive to light and accommodation, cranial nerves gross normal, moving all 4 extremities, no focal deficits, strength moderately global decrease secondary to acute presentation. Psychiatric: Affect appears fatigued, ill-appearing, no acute evidence of depressive or anxiety feelings. Assessment & Plan Assessment/Plan (1) NSTEMI, initial episode of care: PLAN: Plan The patient is a 63 y/o F w/ PMHx: Obesity, Diabetes mellitus type II, Asthma with allergic rhinitis, Rheumatoid arthritis, HTN, Chronic anemia, Hypothyroidism who presents to the [facility] ED on 01/12/24 with history of chest discomfort, dyspnea worse with exertion and cough with fatigue and malaise prompting eventual ED evaluation. #1. Acute NSTEMI, suspected type II, demand secondary to #2: EKG with sinus rhythm with inverted T waves laterally with QTc 494 with no prior EKGs for comparison. Chest CTA with no evidence of any PE or dissection with atelectasis and/or infiltrate in the left lung base with small effusion. Initial cardiac troponin 570. Patient admitted to PCU, maintain on a monitored bed, serial cardiac enzymes continued with repeat troponin 581-> 624-> 466. Patient magnesium level normal. Initiated upon admission on therapeutic Lovenox which is continued. Maintained on aspirin, Plavix, statin therapy. Beta-tamir initiation held given lower blood pressure. FLP with total cholesterol 69, triglyceride 71, LDL 30, VLDL 14, HDL 25. Echocardiogram with EF 60%, no evidence of any diastolic dysfunction, mild to moderate MVI, moderate TBI. As noted to given hemoglobin level preference for cardiology to obtain guaiac and if negative would pursue cardiac catheterization however if positive would require GI evaluation previous to this as well as resolution of pneumonia. #2. Left lower lobe pneumonia, unclear organism: Will maintain on oxygen with wean as tolerated to room air, ATC budesonide/DuoNeb therapies, PRN albuterol, maintained on IV Rocephin and azithromycin, HOB, IS parameters w/ pending sputum cultures and urine antigens. Bld cx x 2 obtained in the ED. Will obtain AM oxygenation trial for discharge planning daily. #3. Chronic anemia, Currently appears Microcytic, appears to be consistent at least in part with anemia of chronic disease: Admission Hgb 9.4, MCV 79.1, previous patient has been remotely 11-12 range thus suspect there is some chronic component of anemia. Most recent repeat 01/12/2024 CBC with hemoglobin 8.4, MCV 79.9, iron 11, TIBC 163, iron saturation 6.7, ferritin 290 consistent with at least in part anemia of chronic disease, stool guaiac is pending and as noted if this is positive cardiology requested that gastroenterology be consulted prior to consideration of cardiac catheterization. Will continue to trend CBC. #4. Chronic asthma with allergic rhinitis: Will maintain on oxygen with wean as tolerated to room air, hold home inhalers in the interim maintain on ATC budesonide/DuoNeb therapies, PRN albuterol, HOB, IS parameters, continue patient home montelukast regimen. #5. Hypertension: Temporarily holding patient lisinopril given low blood pressure in the acute infectious presentation, once clinically improves may need to consider beta-tamir therapy but given her underlying asthma will review with cardiology previous. #6. Diabetes mellitus type II: Hold oral home regimen, ADA diet, accu checks w/ ISS. #7. Rheumatoid arthritis: Complicates presentation, given infectious presentation currently will temporally hold Plaquenil, resume once clinically appropriate. Patient is not on any chronic steroid regimen. #8. Hypothyroidism: Will continue home levothyroxine regimen, TSH normal. #9. Obesity: Weight loss and lifestyle changes encouraged. #10. DVT prophylaxis: Continue therapeutic Lovenox. #11. CODE STATUS: Full Code status. Charges/Coding Visit Charges Inpatient E&M: 80870 Subs Hosp L3
[2024-01-12] MEDS: Budesonide Respules 0.5 MG/2 ML AMPUL.NEB. INHALATION ×2 (07:13→20:39)
[2024-01-12] MEDS: Ipratropium/Albuterol Sulfate 3 ML AMPUL.NEB INHALATION ×3 (07:13→20:39)
--- NOTE | 2024-01-12 08:46 | CON.PCM.CA_ITS ---
<Statement entered by Antolin Wolfe MD - 01/12/24 15:43> Pt seen & evaluated w/PETER. I personally interviewed & exam the pt. I was involved in all aspects of pt's orders, interpretation of results & treatment I independently examined this patient, review all the current lab evaluation Which included the high sensitive troponin which was significant elevated Patient has substernal chest pain with some radiation to the left shoulder and to the back. She also have anemia with a hemoglobin around 8.4 today. I reviewed the echocardiogram which showed LV function is within normal with no significant wall motion abnormality Based on her clinical presentation patient underwent cardiac catheterization. Which revealed moderate disease with some haziness involving the proximal RCA stenosis of around 40-50% LAUREL-3 flow noted in the RCA. Rest of the coronary arteries showed left main LAD left circumflex normal The LAD has the apical portion of the LAD had significant atherosclerosis which is a small vessel. I discussed the cardiac care plan which will include an antiplatelet with Plavix Due to history of anemia with recommend GI evaluation No aspirin at present time. Patient remained stable clinically does not have any further episode of chest pain and hemodynamically been stable The technical lead showed normal sinus rhythm An echocardiographic evaluation showed LV function is within normal. 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 Echocardiogram demonstrated preserved ejection fraction with no wall motion abnormality. Based on findings of diagnostic heart catheterization further recommendations will be made * Patient's blood pressure has been controlled. In regards to her blood pressure will continue with her home medication. Based on heart catheterization we will decide if any changes need to be done. Beta-tamir was not added overnight due to some hypotension. * Anemia: Recommend that we continue workup with guaiac to see if this is positive. If this is positive recommend that she follow-up with GI. HPI Consult Data Date of Consult: 01/12/24 HPI Narrative HPI Narrative: JAYLIN MONTIEL, is a 63 F who presented to [facility] on 01/11/2004 24 for chest pain, cough and shortness of breath with exertion. Last month she was treated with antibiotics for bronchitis because she did not feel any better. She presented to the emergency room. She also notes that 5 days prior to admission she had a dry cough and shortness of breath that progressively worsened over that time. When she does have shortness of breath she needs to stop and rest which is unusual for her. Troponin was elevated at 570 which is consistent with a non-STEMI. She did undergo CT scan for an elevated D-dimer, CT scan demonstrated left lower lobe infiltrate consistent with community-acquired pneumonia. She was admitted to PCU. Troponins have trended 570, 581, 624. She is also noted to be anemic, hemoglobin initially 9.4 has trended to 7.9. She does have a history of hypertension, rheumatoid arthritis and diabetes. [facility] Medical History (Updated 01/12/24 @ 14:43 by Ana Rosa RONDON, PA) Hypothyroidism Diabetes Migraines Hypertension Arthritis Asthma Rheumatoid arthritis Home Medications ?Medication ?Instructions ?Recorded ?Last Taken ?Type albuterol sulfate 2.5 mg/3 mL 1 inhalation DAILY PRN PRN sob 01/11/24 Unknown History (0.083 %) solution for nebulization albuterol sulfate 90 mcg/actuation 1 puff inhalation Q6H PRN PRN 01/11/24 Unknown History aerosol inhaler shortness of breath or wheezing fluticasone fur. 100 mcg-umeclid 1 ea inhalation DAILY 01/11/24 Unknown History 62.5 mcg-vilant 25 mcg inhalat.powder (Trelegy Ellipta) folic acid 1 mg tablet 1 mg PO DAILY 01/11/24 Unknown History hydroxychloroquine 200 mg tablet 200 mg PO DAILY 01/11/24 Unknown History infliximab-abda 100 mg intravenous IV Q7W RA 01/11/24 11/03/23 History solution (Renflexis) ipratropium bromide 42 mcg (0.06 2 spray intranasal TID PRN sinus 01/11/24 Unknown History %) nasal spray symptoms levothyroxine 25 mcg tablet 25 mcg PO DAILY 01/11/24 Unknown History lisinopril 20 mg tablet 20 mg PO DAILY 01/11/24 Unknown History metformin 500 mg tablet,extended 1,000 mg PO DAILY 01/11/24 Unknown History release 24 hr methotrexate sodium 2.5 mg tablet 20 mg PO QWEEK RA 01/11/24 01/07/24 History montelukast 10 mg tablet 10 mg PO DAILY 01/11/24 Unknown History tizanidine 2 mg tablet 2 - 6 mg PO QHS PRN PRN muscle 01/11/24 Unknown History spasticity naproxen 500 mg tablet 500 mg PO BID arthritis 01/12/24 01/11/24 09:00 History 500 mg Allergy/AdvReac Type Severity Reaction Status Date / Time No Known Allergies Allergy Verified 01/11/24 17:31 Surgical History (Updated 01/11/24 @ 22:23 by Annika Adam) History of appendectomy History of cholecystectomy Social History Smoking Status: Never smoker ROS Constitutional Constitutional: Reports systems reviewed and no addt'l complaints, except as documented Eyes Eyes: Reports none ENT HEENT: Reports systems reviewed and no addt'l complaints, except as documented Cardiovascular Cardiovascular: Reports chest pain with activity, dyspnea on exertion, easily tiring during activity, fatigue and other Details: Radiating to arm ; Denies chest pain at rest or dyspnea at rest Respiratory/Chest Respiratory/Chest: Reports chest congestion, chest tightness, cough and dyspnea on exertion Gastrointestinal Gastrointestinal: Denies coffee ground emesis, heartburn or hematochezia Musculoskeletal Musculoskeletal: Reports systems reviewed and no addt'l complaints, except as documented Physical Exam Const alert, oriented x3 and no apparent distress Constitutional Narrative: Obese. General Appearance: cooperative HEENT normocephalic, head/scalp atraumatic, hearing grossly normal bilaterally and moist oral mucous membranes Eyes PERRL and EOMs intact bilaterally Neck no lymphadenopathy and supple Resp Resp Narrative: Decreased breath sounds over LLL. Cardio regular rate, regular rhythm, no murmurs, no rub, no gallops, no clicks and no JVD GI normal to inspection, nondistended, normoactive bowel sounds, soft to palpation, non-tender and non-distended GI Narrative: Obese. Extremity normal to inspection, full ROM and no clubbing, cyanosis or edema Neuro oriented x3, CN's II-XII intact bilaterally, moves all extremities and no focal motor deficits Sensorium / Orientation: awake, alert, oriented to person, oriented to place and oriented to time Speech: speech normal Psych affect normal Risk Stratification Risk Stratification Applicable: Yes Age >/= 65: No >/= 3 CAD Risk Factors (HTN, HLD, DM, family hx of CAD, or current smoker): Yes Aspirin Use in the Past 7 Days: No Severe Angina (>/= episodes in 24 hours): No EKG ST Changes >/= 0.5mm: No Positive Cardiac Marker: Yes LAUREL Risk Stratification Score: 2 LAUREL % Risk: 8% Risk Charges/Coding Multi Select Codes Visit Charges Office Visit/Consults: 92901 IP Consult L4 Objective Data Vital Signs: Vital Signs Temp Pulse Resp BP Pulse Ox O2 Del Method 98.3 F 77 16 100/62 99 Room Air 01/12/24 06:23 01/12/24 06:23 01/12/24 06:23 01/12/24 06:23 01/12/24 06:23 01/12/24 08:00 Oxygen Delivery Method Room Air Weight: 181 lb 14.102 oz Body Mass Index (BMI) 33.3 Intake & Output: Intake and Output for Last 24 Hours 01/10/24 01/11/24 01/12/24 23:59 23:59 23:59 Intake Total 305 / 305 260 / 260 Output Total 100 / 100 Balance 305 / 205 160 / 160 Lab / Micro Data 01/12/24 10:10 01/12/24 06:24 Labs: Laboratory Results - last 24 hr 01/11/24 18:00: WBC 13.2 H, RBC 3.66 L, Hgb 8.9 L, Hct 28.8 L, MCV 78.7 L, MCH 24.3 L, MCHC 30.9 L, RDW Std Deviation 52.1 H, RDW Coeff of Jeison 18.7 H, Plt Count 380, MPV 8.9, Immature Gran % (Auto) 2.900 H, Neut % (Auto) 75.2 H, Lymph % (Auto) 11.1 L, [place] % (Auto) 9.2, Eos % (Auto) 1.1, Baso % (Auto) 0.5, A bsolute Neuts (auto) 9.9 H, Absolute Lymphs (auto) 1.46, Nucleated RBC % 0.2, D- Dimer Quant (PE/DVT) 1.58 H*, Sodium 138, Potassium 3.3 L, Chloride 106, Carbon Dioxide 25.0, Anion Gap 6, BUN 9, Creatinine 0.65, Estim Creat Clear Calc 88.73, Est GFR (MDRD) Af Amer 118, Est GFR (MDRD) Non-Af 98, BUN/Creatinine Ratio 13.8, Glucose 165 H, Calcium 8.9, Troponin I High Sens 581 H* 01/11/24 22:11: POC Glucose 155 H 01/11/24 22:30: Troponin I High Sens 624 H* 01/12/24 06:24: WBC 10.5, RBC 3.28 L, Hgb 7.9 L, Hct 25.7 L, MCV 78.4 L, MCH 24.1 L, MCHC 30.7 L, RDW Std Deviation 52.6 H, RDW Coeff of Jeison 19.0 H, Plt Count 289, MPV 9.0, Immature Gran % (Auto) 1.600 H, Neut % (Auto) 69.7, Lymph % (Auto) 16.0 L, [place] % (Auto) 10.8 H, Eos % (Auto) 1.5, Baso % (Auto) 0.4, Absolute Neuts (auto) 7.3, Absolute Lymphs (auto) 1.67, Nucleated RBC % 0 Micro: Microbiology 01/11/24 23:50 Urine, Random Legionella Antigen - Final 01/11/24 23:50 Urine, Random Streptococcus pneumoniae Antigen (M - Final Cardiology Labs/Tests 01/11/24 18:00: WBC 13.2 H, RBC 3.66 L, Hgb 8.9 L, Hct 28.8 L, MCV 78.7 L, MCH 24.3 L, MCHC 30.9 L, Plt Count 380, MPV 8.9, Immature Gran % (Auto) 2.900 H, N eut % (Auto) 75.2 H, Lymph % (Auto) 11.1 L, [place] % (Auto) 9.2, Eos % (Auto) 1.1, Baso % (Auto) 0.5, Absolute Neuts (auto) 9.9 H, Nucleated RBC % 0.2, D-Dimer Quant (PE/DVT) 1.58 H*, Sodium 138, Potassium 3.3 L, Chloride 106, Carbon Dioxide 25.0, Anion Gap 6, BUN 9, Creatinine 0.65, Est GFR (MDRD) Af Amer 118, Est GFR (MDRD) Non-Af 98, BUN/Creatinine Ratio 13.8, Glucose 165 H, Calcium 8.9 01/12/24 06:24: WBC 10.5, RBC 3.28 L, Hgb 7.9 L, Hct 25.7 L, MCV 78.4 L, MCH 24.1 L, MCHC 30.7 L, Plt Count 289, MPV 9.0, Immature Gran % (Auto) 1.600 H, Neut % (Auto) 69.7, Lymph % (Auto) 16.0 L, [place] % (Auto) 10.8 H, Eos % (Auto) 1.5, Baso % (Auto) 0.4, Absolute Neuts (auto) 7.3, Nucleated RBC % 0 ECHO:The estimated ejection fraction is 60 %. No evidence for diastolic dysfunction. Mild-Moderate (1-2+) mitral valve insufficiency. Moderate (2+) tricuspid valve insufficiency. The study was technically difficult. Contrast injection was performed. Radiography Diagnostic Testing: Radiology Impression Chest CTA 01/11/24 18:32 IMPRESSION: Normal CTA chest examination, without a demonstrated pulmonary embolism or arterial dissection. Atelectasis or infiltrate in the left lung base with small effusion. Electronically Signed: Emiliano Regalado MD at 19:57 EST ,
[2024-01-12 08:59] LABS: ALB/GLOB Ratio 0.6 RATIO (0.9-2.4); AST(SGOT) 20 U/L (15-37); Alanine Aminotransfer ALT/SGPT 21 U/L (13-56); Albumin, Serum 2.3 g/dL (3.2-5.0); Alkaline Phosphatase 90 U/L (45-117); Anion Gap 6 (5-15); BUN 10 mg/dL (7-18); BUN/Creat Ratio 18.1 RATIO (10-20); Calcium,Total 8.8 mg/dL (8.5-10.1); Chloride 110 mmol/L (98-107); Cholesterol 69 mg/dL (200); Creatinine, Serum 0.55 mg/dL (0.55-1.02); EST Glomerular Filtration Rate 118 mL/min (>60); Est Glom Filt Rate - Afr Amer 143 mL/min (>60); Estimated Creatinine Clearance 104.22 ml/min; Ferritin 290 ng/mL (8-252); Globulin 3.7 g/dL (2.2-4.2); Glucose 167 mg/dL (74-106); High Density Lipoprotein 25 mg/dL; Iron 11 ug/dL (50-170); Iron Binding Capacity,Total 163 ug/dL (250-450); PERCENT IRON SATURATION 6.7 % (15.0-55.0); Phosphorus 3.2 mg/dL (2.5-4.9); Potassium 3.8 mmol/L (3.5-5.1); Sodium Level 140 mmol/L (136-145); Triglycerides 71 mg/dL; Troponin-I HS 466 pg/mL (3.0-54.0); Very Low Density Lipoprotein 14 mg/dL (5-40)
[2024-01-12] MEDS: Doxycycline 100 MG in Dextrose 5%-Water (250mL Bag) 250 ML 250 MG IV ×2 (10:05→20:13)
[2024-01-12] MEDS: FLU VACC 2024-25(6MOS UP)/PF 45 MCG/0.5 ML SYRINGE IM (10:18)
[2024-01-12 10:25] LABS: Absolute Lymphocyte Count 1.19 X10^3/uL (0.83-4.51); Absolute Neutrophil Count 7.4 X10^3/uL (2.0-7.7); Basophil# 0.05 X10^3/uL; Basophil% 0.5 % (0-1); Eosinophil# 0.08 X10^3/uL; Eosinophils% 0.8 % (0-5); Hematocrit 28.6 % (37-47); Hemoglobin 8.4 g/dL (12.0-15.0); Lymphocyte # 1.19 X10^3/ul (0.83-4.51); Lymphocyte % 11.7 % (19-41); Mean Corp Hgb Conc 29.4 g/dL (32-36); Mean Corpuscular Hgb 23.5 pg (27.0-32.0); Mean Corpuscular Volume 79.9 fL (81-99); Mean Platelet Vol. 8.8 fl (6.2-12.0); Monocyte% 11.8 % (0-10); NRBC Flagged by Analyzer 0.2 % (0-5); Neutrophil # 7.39 X10^3/uL (2.7-7.7); Platelet Count 338 K/mm3 (150-450); RBC Distribution Width CV 19.1 % (11.6-14.6); RBC Distribution Width SD 53.8 fl (35.1-43.9); Red Blood Count 3.58 M/mm3 (4.2-5.4); White Blood Count 10.1 K/mm3 (4.4-11.0)
--- NOTE | 2024-01-12 10:35 | CASEMGMT ---
RN RASHMI Face to Face with patient for initial transition planning/care coordination assessment. RN CM introduced self and role at [facility]. Patient lying in bed, alert and oriented. Patient willing to participate in assessment and is able to answer all questions appropriately. Care providers, pharmacy, and demographics verified. 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 Patient is independent and able to ambulate stairs. Transportation: self, brother DME/HHC: Patient has glucometer at home. No previous SNF or HHC. Will montior for oxygen, prefers [employer]. Patient wishes to discharge home, denies need for home health at this time. Patient states she has no further needs or concerns at this time. CM to follow for discharge planning needs that may arise. Disposition Plan: Patient to discharge home with family support and follow up plans in place. Will monitor for home oxygen Kathia BUSTOS, RN, CM
--- NOTE | 2024-01-12 10:58 | CASEMGMT ---
[facility] is recommended is as follows: [facility], [facility], [facility], [facility], and . Balbina Baldwin, Discharge Planning Asst.
[2024-01-12] MEDS: Insulin Lispro 100 UNIT/ML INSULN.PEN SC ×3 (11:38→20:26)
--- NOTE | 2024-01-12 13:45 | NURSING ---
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
--- NOTE | 2024-01-12 15:26 | PCI.CARDCATH ---
PCI Cardiac Cath Report PCI Report: Left heart catheterization; 1. Moderate sedation 2. Selective left coronary angiography 3. Selective right coronary angiography 4. Measurement of LVEDP 5. Placement of TR band to close the right radial artery arteriotomy site. Preprocedure diagnosis 63-year-old patient presented with epigastric and chest pain radiating to the left shoulder Evaluation by high sensitive troponins were positive With a clinical diagnosis of non-ST elevation [place] Echocardiographic evaluation LV function is preserved. Based on her clinical presentation all records have been reviewed Patient noted to have anemia last hemoglobin is 8.4. Recommend to consult GI for further evaluation Consent; Risk and benefits of procedure explained in detail to the patient and she elected to proceed informed consent obtained. Diagnostic catheter used #1 6 [place] sheath to the right radial artery 2. 5 [place] JL 3.5 3. 5 [place] JR4. Procedure in detail; Patient brought to the [employer] in fasting state Right radial artery area prepped and draped in the usual sterile fashion Access obtained from the right radial artery and a 6 [place] sheath placed in the right radial artery. Then we proceed with diagnostic catheter we used 5 [place] JL to assess 5 and 5 [place] JR4 advanced sending aorta cannulated the left main without difficulty multiple views the left coronary system were obtained following this catheter exchange for 5 [place] JR4 catheter Angiographic view of the right coronary system obtained. Following this all catheter removed hemostasis maintained with a TR band to right radial artery arteriotomy site. Findings Hemodynamic LVEDP measuring around 15 mmHg There is no gradient across aortic valve. Coronary angiography; 1. Left main coronary artery normal angiographically bifurcating into LAD and left circumflex 2. Left anterior descending artery large vessel reach all the way to the apex Angiographically apical portion of the LAD had significant disease but small vessel. 3. Left circumflex is normal angiographically. 4. RCA large dominant Proximal RCA has mild haziness, moderate atherosclerosis of around 40-50% Impression and recommendations; This patient has a non-STEMI with elevated enzymes and symptoms of substernal chest pain, with typical radiation to left shoulder Patient has anemia with a last hemoglobin around 8.4 Start the patient on antiplatelet with Plavix will hold on aspirin awaiting further evaluation by the GI. From cardiac standpoint she has moderate disease involving the proximal RCA which is likely the culprit with a ruptured plaque which is recannulized. With recommended follow-up with the cardiology team for continuation of cardiac care. Antolin Wolfe MD, FACC,[facility] temperature inspector
[2024-01-12 15:58] LABS: Bedside Glucose 198 mg/dL (74-106)
[2024-01-12] MEDS: Zinc Sulfate 50 mg zinc (220 mg) ORAL capsule PO (16:39)
[2024-01-12] MEDS: Montelukast 10 MG Tablet PO (16:39)
[2024-01-12] MEDS: Ascorbic Acid 500 MG Tablet 1000 MG PO (16:39)
[2024-01-12] MEDS: Cholecalciferol (Vit D3) 125 MCG CAPSULE (5,000 UNITS) PO (16:39)
[2024-01-12] MEDS: Folic Acid 1 MG Tablet PO (16:43)
--- NOTE | 2024-01-12 16:49 | NURSING ---
morning medications given late at this time due to heart cath/NPO
[2024-01-12 17:05] LABS: Bedside Glucose 156 mg/dL (74-106)
[2024-01-12] MEDS: guaiFENesin 600 MG Tablet PO (20:12)
[2024-01-12] MEDS: Atorvastatin Calcium 80 MG Tablet PO (20:12)
[2024-01-12] MEDS: 0.9% Saline Lock 10 ML Syringe IV (20:25)
[2024-01-12] MEDS: Ceftriaxone 1 GM/50 ML BAG IV (22:30)
[2024-01-12 23:04] LABS: Bedside Glucose 196 mg/dL (74-106)
[2024-01-12] MEDS: MELATONIN 3 MG TABLET PO (23:41)
[2024-01-12] MEDS: tiZANidine HCl 2 MG Tablet PO (23:41)
[2024-01-13 03:00] VITALS: PULSE 89
[2024-01-13 04:51] VITALS: BMI 34.1
[2024-01-13 05:30] VITALS: BP 152/80; PULSE 86; RESP 18; TEMP 36.2; O2SAT 96
[2024-01-13] MEDS: Enoxaparin 100 MG/ML Syringe 85 MG SC (06:16)
[2024-01-13] MEDS: Ipratropium Bromide 0.06% NASAL SPRAY 2 SPRAY NASAL (06:16)
[2024-01-13] MEDS: Levothyroxine 25 MCG TABLET PO (06:17)
[2024-01-13 07:02] LABS: Absolute Lymphocyte Count 1.15 X10^3/uL (0.83-4.51); Absolute Neutrophil Count 5.9 X10^3/uL (2.0-7.7); Basophil# 0.04 X10^3/uL; Basophil% 0.5 % (0-1); Eosinophil# 0.17 X10^3/uL; Hemoglobin 8.2 g/dL (12.0-15.0); Lymphocyte # 1.15 X10^3/ul (0.83-4.51); Lymphocyte % 13.5 % (19-41); Mean Corp Hgb Conc 30.4 g/dL (32-36); Mean Corpuscular Hgb 24.1 pg (27.0-32.0); Mean Corpuscular Volume 79.4 fL (81-99); Mean Platelet Vol. 9.1 fl (6.2-12.0); Monocyte# 0.98 X10^3/uL; Monocyte% 11.5 % (0-10); NRBC Flagged by Analyzer 0.2 % (0-5); Neutrophil # 5.87 X10^3/uL (2.7-7.7); Neutrophil % 69.1 % (47-70); Platelet Count 324 K/mm3 (150-450); RBC Distribution Width CV 19.1 % (11.6-14.6); RBC Distribution Width SD 54.2 fl (35.1-43.9); White Blood Count 8.5 K/mm3 (4.4-11.0)
--- NOTE | 2024-01-13 07:21 | PN.HOSP_ITS ---
Reason for Visit Reason for Visit: Diagnoses Anemia, unspecified (01/11/24) Type 2 diabetes mellitus without complications (01/11/24) Hypokalemia (01/11/24) Essential (primary) hypertension (01/11/24) Non-ST elevation (NSTEMI) myocardial infarction (01/11/24) Objective Data Objective Data Vital Signs: Vital Signs Temp Pulse Resp BP Pulse Ox O2 Del Method 97.2 F L 86 18 152/80 H 96 Room Air 01/13/24 05:30 01/13/24 05:30 01/13/24 05:30 01/13/24 05:30 01/13/24 05:30 01/13/24 05:30 Oxygen Delivery Method Room Air Weight: 186 lb 11.704 oz Body Mass Index (BMI) 34.1 Intake & Output: Intake and Output for Last 24 Hours 01/11/24 01/12/24 01/13/24 23:59 23:59 23:59 Intake Total 305 / 305 2190.00 / 2550.00 720 / 720 Output Total 100 / 100 Balance 305 / 205 2090.00 / 2450.00 720 / 720 Lab / Micro Data 01/13/24 06:03 01/12/24 06:24 Labs: Laboratory Results - last 24 hr 01/12/24 06:24: Sodium 140, Potassium 3.8, Chloride 110 H, Carbon Dioxide 24.0, Anion Gap 6, BUN 10, Creatinine 0.55, Estim Creat Clear Calc 104.22, Est GFR (MDRD) Af Amer 143, Est GFR (MDRD) Non-Af 118, BUN/Creatinine Ratio 18.1, G lucose 167 H, Calcium 8.8, Phosphorus 3.2, Magnesium 2.0, Iron 11 L, TIBC 163 L, Iron Saturation 6.7 L, Ferritin 290 H, Total Bilirubin 0.50, AST 20, ALT 21, Alkaline Phosphatase 90, Troponin I High Sens 466 H*, Total Protein 6.0 L, A lbumin 2.3 L, Globulin 3.7, Albumin/Globulin Ratio 0.6 L, Triglycerides 71, Cholesterol 69, LDL Cholesterol 30, VLDL Cholesterol 14, HDL Cholesterol 25 L, TSH 2.490 01/12/24 10:10: WBC 10.1, RBC 3.58 L, Hgb 8.4 L, Hct 28.6 L, MCV 79.9 L, MCH 23.5 L, MCHC 29.4 L, RDW Std Deviation 53.8 H, RDW Coeff of Jeison 19.1 H, Plt Count 338, MPV 8.8, Immature Gran % (Auto) 2.200 H, Neut % (Auto) 73.0 H, Lymph % (Auto) 11.7 L, [place] % (Auto) 11.8 H, Eos % (Auto) 0.8, Baso % (Auto) 0.5, Absolute Neuts (auto) 7.4, Absolute Lymphs (auto) 1.19, Nucleated RBC % 0.2 01/12/24 11:33: POC Glucose 198 H 01/12/24 16:36: POC Glucose 156 H 01/12/24 20:24: POC Glucose 196 H 01/13/24 06:03: WBC 8.5, RBC 3.40 L, Hgb 8.2 L, Hct 27.0 L, MCV 79.4 L, MCH 24.1 L, MCHC 30.4 L, RDW Std Deviation 54.2 H, RDW Coeff of Jeison 19.1 H, Plt Count 324, MPV 9.1, Immature Gran % (Auto) 3.400 H, Neut % (Auto) 69.1, Lymph % (Auto) 13.5 L, [place] % (Auto) 11.5 H, Eos % (Auto) 2.0, Baso % (Auto) 0.5, Absolute Neuts (auto) 5.9, Absolute Lymphs (auto) 1.15, Nucleated RBC % 0.2 Micro: Microbiology 01/12/24 18:12 Stool Stool Occult Blood (MIGDALIA) - Final 01/11/24 23:50 Urine, Random Legionella Antigen - Final 01/11/24 23:50 Urine, Random Streptococcus pneumoniae Antigen (M - Final Radiography Diagnostic Testing: Radiology Impression Echocardiogram 01/11/24 21:55 Interpretation Summary The estimated ejection fraction is 60 %. No evidence for diastolic dysfunction. Mild-Moderate (1-2+) mitral valve insufficiency. Moderate (2+) tricuspid valve insufficiency. The study was technically difficult. Contrast injection was performed. Ordering Physician: Zeke Silva Referring Physician: Paul Huston Performed By: Saray Garcia, CHARLENECS, RVT Physical Exam Narrative Physical Examination: General: Awake, alert, oriented x 3 and cooperative, laying in the PCU bed, fatigued, ill-appearing. Skin: Normal color, normal turgor, no icterus, no cyanosis. HEENT: AT/NC, EOMI, PERRLA, mildly dry MM. Lungs: Mildly diminished, greater bases, left greater than right, no evidence of any distress, no rales, ronchi or wheezing. Heart: Currently regular rate and rhythm; no gallop, rub audible. Repeat reproducible chest discomfort with palpation of the left focal chest and also behind the left shoulder blade. Abdomen: Soft, obese, NTTP, ND, normal BS. Extremities: No cyanosis, clubbing, or edema. Neurological: Patient awake, alert, oriented as noted, cognitive function intact; pupils equally reactive to light and accommodation, cranial nerves gross normal, moving all 4 extremities, no focal deficits, strength moderately global decrease secondary to acute presentation. Psychiatric: Affect appears fatigued, ill-appearing, no acute evidence of depressive or anxiety feelings. Assessment & Plan Assessment/Plan (1) NSTEMI, initial episode of care: PLAN: Plan The patient is a 63 y/o F w/ PMHx: Obesity, Diabetes mellitus type II, Asthma with allergic rhinitis, Rheumatoid arthritis, HTN, Chronic anemia, Hypothyroidism who presents to the [facility] ED on 01/12/24 with history of chest discomfort, dyspnea worse with exertion and cough with fatigue and malaise prompting eventual ED evaluation. #1. Acute NSTEMI, suspected type II, demand secondary to #2: EKG with sinus rhythm with inverted T waves laterally with QTc 494 with no prior EKGs for comparison. Chest CTA with no evidence of any PE or dissection with atelectasis and/or infiltrate in the left lung base with small effusion. Initial cardiac troponin 570. Patient admitted to PCU, maintain on a monitored bed, serial cardiac enzymes continued with repeat troponin 581-> 624-> 466. Patient magnesium level normal. Initiated upon admission on therapeutic Lovenox which is continued. Maintained on aspirin, Plavix, statin therapy. Beta-tamir initiation held given lower blood pressure. FLP with total cholesterol 69, triglyceride 71, LDL 30, VLDL 14, HDL 25. Echocardiogram with EF 60%, no evidence of any diastolic dysfunction, mild to moderate MVI, moderate TBI. As noted to given hemoglobin level preference for cardiology to obtain guaiac and if negative would pursue cardiac catheterization however if positive would require GI evaluation previous to this as well as resolution of pneumonia. #2. Left lower lobe pneumonia, unclear organism: Will maintain on oxygen with wean as tolerated to room air, ATC budesonide/DuoNeb therapies, PRN albuterol, maintained on IV Rocephin and azithromycin, HOB, IS parameters w/ pending sputum cultures and urine antigens. Bld cx x 2 obtained in the ED. Will obtain AM oxygenation trial for discharge planning daily. #3. Chronic anemia, Currently appears Microcytic, appears to be consistent at least in part with anemia of chronic disease: Admission Hgb 9.4, MCV 79.1, previous patient has been remotely 11-12 range thus suspect there is some chronic component of anemia. Most recent repeat 01/12/2024 CBC with hemoglobin 8.4, MCV 79.9, iron 11, TIBC 163, iron saturation 6.7, ferritin 290 consistent with at least in part anemia of chronic disease, stool guaiac is pending and as noted if this is positive cardiology requested that gastroenterology be consulted prior to consideration of cardiac catheterization. Will continue to trend CBC. #4. Chronic asthma with allergic rhinitis: Will maintain on oxygen with wean as tolerated to room air, hold home inhalers in the interim maintain on ATC budesonide/DuoNeb therapies, PRN albuterol, HOB, IS parameters, continue patient home montelukast regimen. #5. Hypertension: Temporarily holding patient lisinopril given low blood pressure in the acute infectious presentation, once clinically improves may need to consider beta-tamir therapy but given her underlying asthma will review with cardiology previous. #6. Diabetes mellitus type II: Hold oral home regimen, ADA diet, accu checks w/ ISS. #7. Rheumatoid arthritis: Complicates presentation, given infectious presentation currently will temporally hold Plaquenil, resume once clinically appropriate. Patient is not on any chronic steroid regimen. #8. Hypothyroidism: Will continue home levothyroxine regimen, TSH normal. #9. Obesity: Weight loss and lifestyle changes encouraged. #10. DVT prophylaxis: Continue therapeutic Lovenox. #11. CODE STATUS: Full Code status.
[2024-01-13 07:26] LABS: ALB/GLOB Ratio 0.6 RATIO (0.9-2.4); AST(SGOT) 21 U/L (15-37); Alanine Aminotransfer ALT/SGPT 20 U/L (13-56); Albumin, Serum 2.3 g/dL (3.2-5.0); Alkaline Phosphatase 98 U/L (45-117); Anion Gap 5 (5-15); BUN 8 mg/dL (7-18); BUN/Creat Ratio 12.9 RATIO (10-20); Calcium,Total 8.4 mg/dL (8.5-10.1); Chloride 111 mmol/L (98-107); Creatinine, Serum 0.62 mg/dL (0.55-1.02); EST Glomerular Filtration Rate 103 mL/min (>60); Est Glom Filt Rate - Afr Amer 125 mL/min (>60); Estimated Creatinine Clearance 93.75 ml/min; Globulin 3.9 g/dL (2.2-4.2); Glucose 161 mg/dL (74-106); Magnesium 1.8 mg/dL (1.6-2.6); Phosphorus 2.8 mg/dL (2.5-4.9); Potassium 3.2 mmol/L (3.5-5.1); Protein, Total 6.2 g/dL (6.4-8.2); Sodium Level 140 mmol/L (136-145)
[2024-01-13 07:28] VITALS: PULSE 80; RESP 16; O2SAT 93
[2024-01-13] MEDS: Budesonide Respules 0.5 MG/2 ML AMPUL.NEB. INHALATION (07:28)
[2024-01-13] MEDS: Ipratropium/Albuterol Sulfate 3 ML AMPUL.NEB INHALATION ×2 (07:28→13:21)
[2024-01-13 07:41] LABS: Magnesium 1.8 mg/dL (1.6-2.6)
[2024-01-13 07:46] LABS: Bedside Glucose 148 mg/dL (74-106)
[2024-01-13 08:31] VITALS: BP 157/75; PULSE 95; RESP 20; TEMP 36; O2SAT 95
[2024-01-13] MEDS: Potassium Chloride Oral Tablet 20 MEQ 40 MEQ PO (08:43)
[2024-01-13] MEDS: Lisinopril 20 MG Tablet PO (08:44)
[2024-01-13] MEDS: Ascorbic Acid 500 MG Tablet 1000 MG PO (08:44)
[2024-01-13] MEDS: Cholecalciferol (Vit D3) 125 MCG CAPSULE (5,000 UNITS) PO (08:44)
[2024-01-13] MEDS: Montelukast 10 MG Tablet PO (08:44)
[2024-01-13] MEDS: Aspirin 81 MG TAB.CHEW PO (08:45)
[2024-01-13] MEDS: Zinc Sulfate 50 mg zinc (220 mg) ORAL capsule PO (08:45)
[2024-01-13] MEDS: guaiFENesin 600 MG Tablet PO (08:45)
[2024-01-13] MEDS: Clopidogrel Bisulfate 75 MG Tablet PO (08:50)
[2024-01-13] MEDS: Folic Acid 1 MG Tablet PO (08:50)
[2024-01-13] MEDS: Acetaminophen 325 MG Tablet 650 MG PO (08:50)
[2024-01-13] MEDS: Insulin Lispro 100 UNIT/ML INSULN.PEN SC (11:51)
[2024-01-13 11:54] VITALS: O2SAT 97
[2024-01-13] MEDS: Doxycycline 100 MG in Dextrose 5%-Water (250mL Bag) 250 ML 250 MG IV (12:00)
[2024-01-13 12:08] LABS: Bedside Glucose 203 mg/dL (74-106)
--- NOTE | 2024-01-13 12:10 | PCM.DC.SUM ---
Providers Date of Admission: 01/11/24 Date of Discharge: 01/13/24 Primary Care Physician: Paul Huston MD Consultations 01/12/24 06:56 Consult: Cardiology Routine Consulting Provider: Antolin Wolfe Reason for Consult: NSTEMI EMERGENT Consult: No MD Notified: Yes Date Notified: 01/12/24 Time Notified: 06:56 Method of Notification: Text Reason For Visit: NSTEMI & CAP Diagnosis Discharge Diagnosis (1) NSTEMI, initial episode of care: Status: Acute Code(s): I21.4 - Non-ST elevation (NSTEMI) myocardial infarction Plan: DISCHARGE DIAGNOSES: #1. Acute NSTEMI, suspected type II, demand secondary to #2 with noted proximal RCA has mild haziness, moderate atherosclerosis of around 40-50% #2. Left lower lobe pneumonia, unclear organism, Community Acquired #3. Chronic anemia, Currently appears Microcytic, appears to be consistent at least in part with anemia of chronic disease/component Fe deficiency with negative stool guiac #4. Chronic asthma with allergic rhinitis #5. Hypertension #6. Diabetes mellitus type II #7. Rheumatoid arthritis #8. Hypothyroidism #9. Obesity #10. CODE STATUS: Full Code status. Medications at Discharge Home Medications fluticasone fur. 100 mcg-umeclid 62.5 mcg-vilant 25 mcg inhalat.powder (Trelegy Ellipta) 1 ea inhalation DAILY 01/11/24 folic acid 1 mg tablet 1 mg PO DAILY 01/11/24 hydroxychloroquine 200 mg tablet 200 mg PO DAILY 01/11/24 infliximab-abda 100 mg intravenous solution (Renflexis) IV Q7W RA 01/11/24 ipratropium bromide 42 mcg (0.06 %) nasal spray 2 spray intranasal TID PRN sinus symptoms 01/11/24 levothyroxine 25 mcg tablet 25 mcg PO DAILY 01/11/24 lisinopril 20 mg tablet 20 mg PO DAILY 01/11/24 metformin 500 mg tablet,extended release 24 hr 1,000 mg PO DAILY 01/11/24 methotrexate sodium 2.5 mg tablet 20 mg PO QWEEK RA 01/11/24 montelukast 10 mg tablet 10 mg PO DAILY 01/11/24 tizanidine 2 mg tablet 2 - 6 mg PO QHS PRN PRN muscle spasticity 01/11/24 albuterol sulfate 2.5 mg/3 mL (0.083 %) solution for nebulization 2.5 mg (3 mL) inhalation Q4H PRN PRN sob #180 mL 01/13/24 albuterol sulfate 90 mcg/actuation aerosol inhaler 2 puff inhalation Q4H PRN shortness of breath or wheezing #8.5 grams 01/13/24 atorvastatin 80 mg tablet 80 mg PO QHS 30 days #30 tabs 01/13/24 clopidogrel 75 mg tablet 75 mg PO DAILY 30 days #30 tabs 01/13/24 doxycycline hyclate 100 mg tablet 100 mg PO BID Pneumonia 5 days #10 tabs 01/13/24 ferrous gluconate 240 mg (27 mg iron) tablet (Ferate) 240 mg PO DAILY 30 days #30 tabs 01/13/24 guaifenesin 600 mg tablet, extended release 12 hr (Mucinex) 600 mg PO BID 30 days #60 tabs 01/13/24 Hospital Course Operations None Procedures 2-D Echocardiogram, Cardiac catheterization and EKG Summary of Care Provided Minutes Spent on Discharge: 35 Hospital Course: The patient is a 63 y/o F w/ PMHx: Obesity, Diabetes mellitus type II, Asthma with allergic rhinitis, Rheumatoid arthritis, HTN, Chronic anemia, Hypothyroidism who presented to the [facility] ED on 01/12/24 with history of chest discomfort, dyspnea worse with exertion and cough with fatigue and malaise prompting eventual ED evaluation. EKG with sinus rhythm with inverted T waves laterally with QTc 494 with no prior EKGs for comparison. Chest CTA with no evidence of any PE or dissection with atelectasis and/or infiltrate in the left lung base with small effusion. Initial cardiac troponin 570. Patient admitted to PCU, cardiac troponin series with 570-> 581-> 624-> 466. Initially maintained on aspirin, Plavix, statin therapy. Beta-fahad initiation held given lower blood pressure I discussed that patient will be reevaluated at cardiology follow-up for consideration of initiation at that time but also considering her underlying asthma. FLP with total cholesterol 69, triglyceride 71, LDL 30, VLDL 14, HDL 25. Echocardiogram with EF 60%, no evidence of any diastolic dysfunction, mild to moderate MVI, moderate TBI. Cardiac catheterization with normal angiographically bifurcating left main coronary into LAD and left circumflex, left anterior descending artery large vessel reaching all the way to the apex with angiographically apical portion of the LAD with significant disease but small vessel, left circumflex normal angiographically, RCA large dominant with proximal RCA mild haziness, moderate atherosclerosis of around 40 to 50%. Jack Machine Operator recommendation to continue Plavix 75 mg daily only until follow-up with gastroenterology and assure that hemoglobin remained stable at which time he recommends adding baby aspirin in addition. Patient maintained on aerosols with hold on home inhalers temporarily and treated with IV doxycycline transitioned to oral regimen upon discharge for her PNA treatment. Urine antigens were negative. Encourage continued incentive spirometry usage 10x/hr from waking to bed for the next 5-7 days until pneumonia resolved. Admission Hgb 9.4, MCV 79.1, previous patient has been remotely 11-12 range thus suspect there is some chronic component of anemia with noted iron 11, TIBC 163, iron saturation 6.7, ferritin 290 consistent with at least in part anemia of chronic disease, stool guaiac negative. 01/13/24 hemoglobin 8.2, MCV 79.4 with no black tarry stools, bright red stools or dark red stools nor any hemoptysis. Given discussion and plan of care with cardiology decision for follow-up with gastroenterology outpatient at discharge with continuation of Plavix only and hold on aspirin additional regimen until cleared per gastroenterology. Patient also initiated on iron supplementation. Discussed possibility of inpatient evaluation however patient preference to follow-up outpatient with gastroenterology. Given patient's stability, clinically appropriate quicker than expected decision with patient eagerness for discharge to home with follow-up with primary care physician with repeat CBC to assure stability, cardiology as well as gastroenterology for further anemia evaluation outpatient. DAY OF DISCHARGE PROGRESS NOTE: Subjective: Patient without acute event overnight per self and nursing report. Patient denies fever, chills, nausea, emesis, abdominal pain and does report that her previous reproducible left anterior lateral chest and discomfort behind her shoulder are completely resolved at this point and improved. She denies any continued marked dyspnea but still does occasionally cough. She denies any chest pain. She is eager for discharged home. Patient will be discharged with follow-up with primary care physician within 3-5 days in addition to cardiology and gastroenterology as noted. Objective: T96.8, heart rate 95, BP 157/75, respiratory rate 20, 95% room air. Physical Examination: General: awake, alert, oriented x 3 and cooperative, seated upright in the PCU bed, NAD, much improved in appearance. Skin: normal color, turgor, no icterus, cyanosis except occasional stage ecchymoses likely from lab draws/IV placements. HEENT: AT/NC, EOMI, PERRLA, MMM. Lungs: Improved aeration, improved effort, still mildly decreased at bases, left greater than right, no rales, ronchi or wheezing; Heart: Regular rate and rhythm; no gallop, rub audible. Abdomen: soft, obese, NTTP, ND, normal BS. Extremities: no cyanosis, clubbing, or edema. Neurological: patient awake, alert, oriented as noted, cognitive function appears intact upon questioning,; pupils equally reactive to light and accommodation, cranial nerves grossly normal, moving all 4 extremities, strength improving, mildly globally decreased. Psychiatric: affect appears fatigued otherwise normal, no acute evidence of depressive or anxiety feelings. Assessment and Plan: Please see hospital summary above. Weight / BMI Weight Weight: 186 lb 11.704 oz Body Mass Index (BMI) 34.1 ABG / Lab / Microbiology Data 01/13/24 06:03 01/13/24 06:03 Laboratory: Laboratory Results - last 24 hr 01/12/24 11:33: POC Glucose 198 H 01/12/24 16:36: POC Glucose 156 H 01/12/24 20:24: POC Glucose 196 H 01/13/24 06:03: WBC 8.5, RBC 3.40 L, Hgb 8.2 L, Hct 27.0 L, MCV 79.4 L, MCH 24.1 L, MCHC 30.4 L, RDW Std Deviation 54.2 H, RDW Coeff of Jeison 19.1 H, Plt Count 324, MPV 9.1, Immature Gran % (Auto) 3.400 H, Neut % (Auto) 69.1, Lymph % (Auto) 13.5 L, [place] % (Auto) 11.5 H, Eos % (Auto) 2.0, Baso % (Auto) 0.5, Absolute Neuts (auto) 5.9, Absolute Lymphs (auto) 1.15, Nucleated RBC % 0.2, Sodium 140, Potassium 3.2 L, Chloride 111 H, Carbon Dioxide 25.0, Anion Gap 5, BUN 8, Creatinine 0.62, Estim Creat Clear Calc 93.75, Est GFR (MDRD) Af Amer 125, Est GFR (MDRD) Non-Af 103, BUN/Creatinine Ratio 12.9, Glucose 161 H, Calcium 8.4 L, Phosphorus 2.8, Magnesium 1.8 01/13/24 06:03: Magnesium 1.8, Total Bilirubin 0.30, AST 21, ALT 20, Alkaline Phosphatase 98, Total Protein 6.2 L, Albumin 2.3 L, Globulin 3.9, Albumin/Globulin Ratio 0.6 L 01/13/24 06:19: POC Glucose 148 H 01/13/24 11:49: POC Glucose 203 H Microbiology: Microbiology 01/12/24 18:12 Stool Stool Occult Blood (MIGDALIA) - Final 01/11/24 23:50 Urine, Random Legionella Antigen - Final 01/11/24 23:50 Urine, Random Streptococcus pneumoniae Antigen (M - Final D/C Instructions Discharge Diet: Low fat / Low cholesterol and 1800 Calorie Control Diet May resume sexual activity in: 10-14 days Call your doctor if you observe: Fever of 101 or Higher, Numbness or Tingling, Shortness of breath, Dizziness, Chest pain, Increased palpitations (irregular heartbeat), Calf discomfort and Uncontrolled pain Meaningful Use Info Meaningful Use Meaningful Use Diagnoses (Choose all that apply): AMI AMI/Post PCI/Angioplasty Aspirin given w/in 24hrs of arrival?: Yes ASA at discharge?: No Reason ASA not ordered:: Drug Interaction (Given anemia, cardiology decision to d/c on plavix only) Antiplatelet Therapy at Discharge:: Yes Statins at discharge?: Yes Malachi/ARB at discharge?: Yes Reason Malachi/ARB not ordered:: Hypotension Beta Fahad at discharge?: No Reason Beta Fahad not ordered:: Hypotension Done w/ Acute ID measure.: Yes Documented LVEF (%): 60 Ischemic Stroke Statin Dosing Therapy Reference: STATIN DOSE THERAPY REFERENCE: * Patients > 75 years receive moderate or high dose statin therapy. * Patients 75 years or YOUNGER should receive HIGH intensity statin dose unless contraindicated. You will be required to document reason for non-treatment if statin daily dose does not meet guidelines. HIGH DOSE STATIN THERAPY DAILY Atorvastatin > than or = to 40 mg Rosuvastatin > than or = to 20 mg Amlodipine + Atorvastatin > than or = to 2.5/40 mg Ezetimibe + Simvastatin 10/80 mg Simvastatin 80mg Discharge Plan Admission Admit Date/Time: 01/11/24 21:23 Primary Reason for Your Visit: Community Acquired Pneumonia, NSTEMI Attending Provider: Natalie Gaspar Primary Care Provider: Paul Huston Consulting Providers: Zeke Silva; Antolin Wolfe Instructions Patient Instructions: Heart Attack Dc, Pneumonia Additional Instructions / Restrictions: ADDITIONAL DISCHARGE REVIEW: #1. Acute NSTEMI, suspected type II, demand secondary to #2: --EKG with sinus rhythm with inverted T waves laterally with QTc 494 with no prior EKGs for comparison. --Chest CTA with no evidence of any PE or dissection with atelectasis and/or infiltrate in the left lung base with small effusion. --Initial cardiac troponin 570-> 581-> 624-> 466. --Maintained on aspirin, Plavix, statin therapy. --Beta-fahad initiation held given lower blood pressure. --FLP with total cholesterol 69, triglyceride 71, LDL 30, VLDL 14, HDL 25. --Echocardiogram with EF 60%, no evidence of any diastolic dysfunction, mild to moderate MVI, moderate TBI. --Cardiac catheterization with normal angiographically bifurcating left main coronary into LAD and left circumflex, left anterior descending artery large vessel reaching all the way to the apex with angiographically apical portion of the LAD with significant disease but small vessel, left circumflex normal angiographically, RCA large dominant with proximal RCA mild haziness, moderate atherosclerosis of around 40 to 50%. --Jack Machine Operator recommendation at this point to continue Plavix 75 mg daily only until follow-up with gastroenterology and assure that hemoglobin remained stable at which time he recommends adding baby aspirin in addition. -- Please follow-up with cardiology as recommended. #2. Left lower lobe pneumonia, unclear organism: --On imaging it demonstrated left lower lobe pneumonia. --Please continue antibiotic therapy until completion (doxycycline). --Pneumonia urine antigens were negative. --Continue her home inhaler regimen with refills given on albuterol inhaler and nebulizers. --Encourage continued incentive spirometry usage 10x/hr from waking to bed for the next 5-7 days until pneumonia resolved. #3. Chronic anemia, Currently appears Microcytic, appears to be consistent at least in part with anemia of chronic disease: --Admission Hgb 9.4, MCV 79.1, previous patient has been remotely 11-12 range thus suspect there is some chronic component of anemia. --01/12/2024 iron 11, TIBC 163, iron saturation 6.7, ferritin 290 consistent with at least in part anemia of chronic disease. --Stool guiac negative. --Discharge 01/13/24 Hgb 8.2, MCV 79.4, stable VS. --Per discussion per preference will plan follow-up outpatient with gastroenterology to continue assessment for anemia. --Again given your underlying disease history likely anemia of chronic disease is a component but certainly could have iron deficiency anemia therefore you have also been initiated on oral iron supplementation. --Because of this anemia we have chosen to maintain you only on Plavix and hold off on additional baby aspirin. --Please have follow-up complete blood count with your primary care physician at follow-up. Discharge Orders/Prescriptions Prescriptions: New atorvastatin 80 mg Tablet 80 mg PO QHS 30 Days Qty: 30 0RF clopidogrel 75 mg Tablet 75 mg PO DAILY 30 Days Qty: 30 0RF guaifenesin [Mucinex] 600 mg Tablet Extended Release 12hr 600 mg PO BID 30 Days Qty: 60 0RF doxycycline hyclate 100 mg tablet 100 mg PO BID 5 Days Qty: 10 0RF ferrous gluconate [Ferate] 240 mg (27 mg iron) tablet 240 mg PO DAILY 30 Days Qty: 30 0RF Continued tizanidine 2 mg tablet 2 - 6 mg PO QHS PRN PRN (Reason: muscle spasticity) lisinopril 20 mg tablet 20 mg PO DAILY levothyroxine 25 mcg tablet 25 mcg PO DAILY methotrexate sodium 2.5 mg tablet 20 mg PO QWEEK Patient Comments: takes it every Monday folic acid 1 mg tablet 1 mg PO DAILY montelukast 10 mg tablet 10 mg PO DAILY hydroxychloroquine 200 mg tablet 200 mg PO DAILY ipratropium bromide 42 mcg (0.06 %) spray,non-aerosol 2 spray INTRANASAL TID PRN (Reason: sinus symptoms) metformin 500 mg tablet extended release 24 hr 1,000 mg PO DAILY Trelegy Ellipta 100-62.5-25 mcg blister with device 1 ea inhalation DAILY Renflexis 100 mg recon soln IV Q7W Patient Comments: gets it every 7 weeks Changed albuterol sulfate 2.5 mg /3 mL (0.083 %) solution for nebulization 2.5 mg inhalation Q4H PRN PRN (Reason: sob) Qty: 180 0RF albuterol sulfate 90 mcg/actuation HFA aerosol inhaler 2 puff inhalation Q4H PRN (Reason: shortness of breath or wheezing) Qty: 8.5 0RF Discontinued naproxen 500 mg tablet 500 mg PO BID Referrals / Follow Up: Paul Huston MD [Primary Care Provider] - (Follow-up within 3-5 days to review admission and have repeat CBC to assure remains stable.) Brandon Cintron MD [Med Staff - Active Staff] - (Follow-up within 1-2 weeks. Continue plavix only per Cardiology recommendation until follow-up with GI.) Ken Xie DO [Med Staff - Active Staff] - (Follow-up in 1-2 weeks for outpatient evaluation for anemia. May see [employer]/PA.) Disposition Disposition (needs filled in before D/C Order can be placed): Home, Self Care Charges/Coding Visit Charges Inpatient E&M: 15399 Disch Hosp >30min
[2024-01-13 13:22] VITALS: PULSE 82; RESP 16
[2024-01-13] MEDS: 0.9 % NaCl (Sterile) Posiflush 10 mL IV (14:09)
== END 2024-01-13 14:25 | disposition home or self-care (01) | DRG 280 ==
LOC: ED 19:25 → PCU 22:05
PROVIDERS: Physician Assistant; Admitting Provider Internal Medicine; Emergency Provider Emergency Medicine; PCP Family Medicine; Visit Provider Family Medicine
DX: I21.A1 Myocardial infarction type 2 (principal); J18.9 Pneumonia, unspecified organism; E11.9 Type 2 diabetes mellitus without complications; M06.9 Rheumatoid arthritis, unspecified; I10 Essential (primary) hypertension; E03.9 Hypothyroidism, unspecified; J45.909 Unspecified asthma, uncomplicated; E66.9 Obesity, unspecified; E87.6 Hypokalemia; I25.10 Atherosclerotic heart disease of native coronary artery without angina pectoris; R79.89 Other specified abnormal findings of blood chemistry; Z79.890 Hormone replacement therapy; Z68.33 Body mass index [BMI] 33.0-33.9, adult; Z79.84 Long term (current) use of oral hypoglycemic drugs
CPT/HCPCS: 36415; 36591; 71275; 80048; 80053; 80061; 82274; 82728; 82962; 83540; 83550; 83735; 84100; 84443; 84484; 85025; 85379; 87449; 90656; 93005; 93306; 93454; 94640; 99152; 99153; 99285; Q9957; Q9967; A4216; C1769; C1894; C8929

== ENCOUNTER → 2024-01-11 | Outpatient (CLI) | payer OTHER, SELFPAY ==
[2024-01-11 14:56] LABS: Absolute Lymphocyte Count 1.85 X10^3/uL (0.83-4.51); Absolute Neutrophil Count 9.4 X10^3/uL (2.0-7.7); Basophil# 0.09 X10^3/uL; Basophil% 0.7 % (0-1); Eosinophil# 0.13 X10^3/uL; Hemoglobin 9.4 g/dL (12.0-15.0); Lymphocyte # 1.85 X10^3/ul (0.83-4.51); Lymphocyte % 14.4 % (19-41); Mean Corp Hgb Conc 30.3 g/dL (32-36); Mean Corpuscular Volume 79.1 fL (81-99); Monocyte# 1.11 X10^3/uL; Monocyte% 8.6 % (0-10); NRBC Flagged by Analyzer 0 % (0-5); Neutrophil # 9.41 X10^3/uL (2.7-7.7); Platelet Count 411 K/mm3 (150-450); RBC Distribution Width CV 18.7 % (11.6-14.6); RBC Distribution Width SD 52.8 fl (35.1-43.9); Red Blood Count 3.92 M/mm3 (4.2-5.4); White Blood Count 12.9 K/mm3 (4.4-11.0)
[2024-01-11 16:39] LABS: ALB/GLOB Ratio 0.7 RATIO (0.9-2.4); AST(SGOT) 13 U/L (15-37); Alanine Aminotransfer ALT/SGPT 21 U/L (13-56); Alkaline Phosphatase 103 U/L (45-117); Anion Gap 8 (5-15); BUN 6 mg/dL (7-18); BUN/Creat Ratio 8.7 RATIO (10-20); Calcium,Total 9.2 mg/dL (8.5-10.1); Chloride 107 mmol/L (98-107); Creatinine, Serum 0.69 mg/dL (0.55-1.02); EST Glomerular Filtration Rate 91 mL/min (>60); Est Glom Filt Rate - Afr Amer 110 mL/min (>60); Globulin 4.3 g/dL (2.2-4.2); Glucose 165 mg/dL (74-106); Potassium 3.1 mmol/L (3.5-5.1); Protein, Total 7.3 g/dL (6.4-8.2); Sodium Level 139 mmol/L (136-145); Troponin-I HS 570 pg/mL (3.0-54.0)
[2024-01-11 17:55] LABS: Vitamin D,25 Hydroxy 17.8 ng/mL
== END | disposition home or self-care (01) ==
PROVIDERS: PCP Family Medicine; Referring Provider Family Medicine; Visit Provider Family Medicine
DX: R06.02 Shortness of breath (principal)
CPT/HCPCS: 36415; 71046; 80053; 82306; 84443; 84484; 85025

== ENCOUNTER → 2024-01-24 | Outpatient (CLI) | payer OTHER, SELFPAY ==
--- NOTE | 2024-01-24 08:14 | PCM.CR.HP2 ---
CR - History & Physical General Arrival date:: 01/24/24 Arrival time:: 08:15 Date of Referral:: 01/17/24 Date of CR Evaluation:: 01/24/24 Referring Physician: Dr. Mondragon Primary Diagnosis: OR-NonSTEMI<12months History of Present Cardiac Event Onset Date Acute Myocardial Infarction within 12 months:: Yes (01/12/24 onset) Medications Ambulatory Orders ?Medication ?Instructions ?Recorded fluticasone fur. 100 mcg-umeclid 1 ea inhalation DAILY 01/11/24 62.5 mcg-vilant 25 mcg inhalat.powder (Trelegy Ellipta) folic acid 1 mg tablet 1 mg PO DAILY 01/11/24 hydroxychloroquine 200 mg tablet 200 mg PO DAILY 01/11/24 infliximab-abda 100 mg intravenous IV Q7W RA 01/11/24 solution (Renflexis) ipratropium bromide 42 mcg (0.06 2 spray intranasal TID PRN sinus 01/11/24 %) nasal spray symptoms levothyroxine 25 mcg tablet 25 mcg PO DAILY 01/11/24 lisinopril 20 mg tablet 20 mg PO DAILY 01/11/24 metformin 500 mg tablet,extended 1,000 mg PO DAILY 01/11/24 release 24 hr methotrexate sodium 2.5 mg tablet 20 mg PO QWEEK RA 01/11/24 montelukast 10 mg tablet 10 mg PO DAILY 01/11/24 tizanidine 2 mg tablet 2 - 6 mg PO QHS PRN PRN muscle 01/11/24 spasticity albuterol sulfate 2.5 mg/3 mL 2.5 mg (3 mL) inhalation Q4H PRN 01/13/24 (0.083 %) solution for nebulization PRN sob #180 mL albuterol sulfate 90 mcg/actuation 2 puff inhalation Q4H PRN 01/13/24 aerosol inhaler shortness of breath or wheezing #8.5 grams atorvastatin 80 mg tablet 80 mg PO QHS 30 days #30 tabs 01/13/24 clopidogrel 75 mg tablet 75 mg PO DAILY 30 days #30 tabs 01/13/24 doxycycline hyclate 100 mg tablet 100 mg PO BID Pneumonia 5 days #10 01/13/24 tabs ferrous gluconate 240 mg (27 mg 240 mg PO DAILY 30 days #30 tabs 01/13/24 iron) tablet (Ferate) guaifenesin 600 mg tablet, 600 mg PO BID 30 days #60 tabs 01/13/24 extended release 12 hr (Mucinex) Allergies Allergies No Known Allergies Allergy (Verified 01/11/24 17:31) Sleep Disorder Evaluation Hx of Sleep Apnea: No Do you snore loudly (louder than talking or can be heard through closed doors)?: No Do you often feel tired/ fatigued/ sleepy during daytime?: No Has anyone observed you stop breathing during sleep?: No History of Hypertension (for STOP score): Yes STOP Results: Negative Advanced Directives Advanced Directives Power of Refinery [employer]: No Living Will: No Advance Directives Information Provided: No Advance Directives on File: No DNR Order?:: No Past Medical History Covid-19 Screening Physicial Symptoms Other Clinical Concerns Exposure Risk Pertinent Comorbidities Has a serious heart condition:: Yes Past Medical Illness Past Medical History (Updated 01/21/24 @ 00:02 by Vipin Marion) Anemia D64.9 Diabetes mellitus, type 2 E11.9 Obesity (BMI 30.0-34.9) E66.811 NSTEMI, initial episode of care I21.4 Hypothyroidism E03.9 Diabetes E11.9 Migraines G43.909 Hypertension I10 Arthritis M19.90 Asthma J45.909 Rheumatoid arthritis M06.9 Past Surgical History Past Surgical History (Updated 01/11/24 @ 22:23 by Annika Adam) History of appendectomy Z90.49 History of cholecystectomy Z90.49 Social History Smoking History Smoking Status: Never smoker Alcohol Use Alcohol Usage: Yes (rare) Substance Abuse Hx Substance Use: No Occupation 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 (List type of work in comments):: 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 Hours worked per day:: 5 Hobbies, Recreation, Social Activities Hobbies: Other Recreational Activities: I am able to engage in all my recreational activities Social Environment Status Marital Status: Current Living Arrangements Living Environment:: Alone Children How many children do you have?: 2 Do any of your children live nearby?: No Safety Do you feel safe in your surroundings?: Yes Assistance Do you need any assistance at home?: no Review of Systems Review of Systems Hints Review of Present Symptoms: Reports Shortness of Breath with Exertion, Fatigue and Appetite - Special Diet; Denies Shortness of Breath at Rest, PVD, Operative Discomfort, Angina, Wound Healing, Dizziness/Lightheadedness, Heart Arrhythmia/Irregularities, Appetite - Normal, Sleep - Normal or Sexual Changes Pain Is Patient Pain Free?: No Pain Location: other (everywhere ) Pain Level: 5/10 Risk Factor Assessment Chief Complaint Chief Complaint: OR-NonSTEMI<12months Vital Signs Pulse Ox: 95 Blood Pressure: 150/90 Pulse Pulse Rate: 104 Pulse Rhythm: Regular Hypertension Blood Pressure Sitting - Left Arm: 150/90 Stress Stress: Work-related Diabetes Diabetic History: Type II Nutrition Referral for Diabetes: Yes Obesity Height: 5 ft 2 in Weight:: 174 lb Weight in Pounds: 174.0 lbs Body Mass Index (BMI): 31.8 Nutritional Referral for Obesity: Yes Physical Inactivity Physical Inactivity: None Risk Stratification Risk Guidelines: Moderate Risk: Risk Factor for Smoking, Risk Factor for Dyslipidemia and Risk Factor for Depression and Highest Risk: Risk Factor for Diabetes, Risk Factor for Obesity, Risk Factor for Hypertension and Risk Factor for Sedentary Lifestyle For Smoking Smoking Risk Guidelines For Dyslipidemia Dyslipidemia Risk Guidelines For Diabetes Mellitus Diabetes Risk Guidelines For Obesity/Overweight Obesity/Overweight Risk Guidelines For Hypertension Hypertension Risk Guidelines For Sedentary Lifestyle Sedentary Lifestyle Risk Guidelines For Depression Depression Risk Guidelines Motivation Motivation to Participate On a scale of 1 to 10, how prepared are you to commit to attending program?: 8 What do you see as barriers to successfully being able to complete the program?: nothing What do you see as the benefits of succesfully completing the program? In other words, what do you hope to get out of participating in the program?: energy, knowledge Are there issues you are dealing with that will interfere with completing the program?: no Do you have a spouse or signficant other, family or friends who will help support you to complete the program?: yes
--- NOTE | 2024-01-24 08:20 | CR.ITP_ITS ---
Diagnosis General Information Admitting Diagnosis: AK-NonSTEMI<12months Personal Learning Style:: Audio/Visual Barriers to Learning: No Barriers Stage of change r/t lifestyle modifications:: Contemplation Gave educational material for:: Treating Heart Disease, How The Heart Works, What it means to have Heart Disease, How Coronary Artery Disease is Diagnosed, Heart Procedures, What Heart Medications Do, Risk Factors & Modifications, Living an Active Life, Nutrition, Emotions & Heart Disease, Stress Management & Relaxation and Sleep Disorders & Heart Disease Education/Goals Cardiac Rehabilitation Goals Personal Goals: Initial Assessment: Improve management of stress and emotions, Improve energy level, Participate in home exercise program, Get back to work, or to resume activities faster, Improve knowledge of cardiac disease, Improve muscle strength and endurance, Improve diet and eating habits (eat healthier), Control risk factors (learn risk factor modification) and Other goal: Scale for measuring improvement of personal goals Diagnosis & Disease Process Outcomes/Goals: Pt IDs own risk factors & lifestyle modifications by Session 10, Verbalizes symptoms of angina & response by session 3., Pt independently manages and Other Additional Outcomes/Goals: Plan/Interventions: Assist Pt to ID & engage in lifestyle modification to reduce CVD risk, Instruct on individual risk factors, Review symptoms of angina & emergency actions, Review secondary diagnosis & identify educational needs. and Other see comment 30 day Reassessments:: Not Met 30 day Reassessments:: Not Met 30 day Reassessments:: Not Met 30 day Reassessments:: Not Met Final Reassessments:: Not Met Safety Referral to Physical Therapy: No Referral to [facility] Case Management: No Fall Risk Assessed:: Yes Assistive Devices:: None Exercise - Initial Assessment Visit Date of Eval: 01/24/24 (initial eval ) Mets: Pre-: >3 METS for 30 minutes by discharge, >5 METS for 30 minutes by discharge, >7 METS for 30 minutes by discharge and Unable to meet goal due to: (see comment below) Physician Prescribed Exercise Modalities: Treadmill, Rower, Barbara Boylene AD-7, SciFit Stepper, SciFit Pro- II Ergometer and SciFit Lateral Silk Screen Cutter Frequency: 3x/week for 12 weeks [36 sessions] Intensity: 60-80% of age predicted maximum heart rate reserve Duration: 30 - 45 minutes Current METSs:: 3 Target Heart Rate:: 94-118 Resting Blood Pressure: 150/90 EKG Type: NSR nonspecific T wave abnormality Outcomes & Goals Goals:: Verbalizes understanding of THR, RPE & goal METS by session 6, Documents in home exercise log/reports 30 min aerobic 5 day/wk by DC, Demonstrates accurate pulse taking by DC and Other additional outcome/goals: see below Intervention & Plan Exercise Program Goals: Instruct on personal THR & RPE, Instruct on MET level & personal MET goal, Show patient to take own pulse /validate performance until accurate, Instruct on home exercise and Other additional plan/int Physical Activity Home Exercise Physical Activity - Home Exercise: Safe Exercise, Warm-up, Self-monitoring, Cool-Down, Home Exercise > 30 min Daily and Sitting Time <3 hours/daily Outcomes & Goals Outcomes/Goals: Demonstrates correct Warm-up/exercise Cool-Down (S3) if = 2.5 METs, Verbalizes symptoms of exercise intolerance by Session 3 (S3), Demonstrate safe equipment use (S3) & follows exercise prescrition (6) and Other: See below Intervention & Plan Plan/Intervention: Instruct warm-up & cool-down if exercising at > 2 METs, Instruct on symptoms of exercise intolerance & actions to take, Instruct & monitor on saf, Assess intial functional capacity & safety risk and Other See below Nutrition - Initial Assessment Program Goals Nutrition Program Goals Patient has diagnosis of Hyperlipidemia (ICD E78)?: No Visit Date of Eval: 01/24/24 (initial eval ) Cholesterol/Lipids (Other Core Measures) Determine presence & major risk factors that modify LDL goal: Hypertension or hypertensive medication, Low HDL cholesterol <40 mg/dL*, Family history of premature CHD in Male < 55 years: female <65 yearsFa and Age men > 45 years; women >/= 55 years Outcomes/Goals: Pt IDs own risk factors & lifestyle modifications by Session 10, Verbalizes symptoms of angina & response by session 3., Pt independently manages and Other Additional Outcomes/Goals: Intervention/Plan: Advocate for lipid panel cholesterol medication if applicable, Instruct on personal lipid levels & lipid goals/NCEP guidelines, Instruct on cholesterol and Other additional plan/int Diabetes (Other Core Measures) Diabetes Type: Diagnosis Type II ICD-10 E11 Insulin dependent injection/pump?: No Non-Insulin Dependent?: Yes Do you monitor your blood sugar at home?: Yes Referral to Diabetic Clinic:: Yes Weight Mgt (Other Care) Height: 5 ft 2 in Weight:: 174 lb BMI: 31.8 Diagnosis Overweight/Obesity BMI> 30% ICD-10 E66: Yes Diagnosis High BMI/Morbid Obesity BMI> 35% ICD-10 Z68: No Outcomes/Goals: Pt sets, maintains & shows weight loss goal & trend during rehab and Other additional outcomes/goals Intervention/Plan: Instruct on ideal BMI & set weight loss goal w/patient, Assist pt to ID & incorporate diet changes for weight loss by S9, Refer to Structured Weight Loss program as appropriate, Encourage goal of using 250- 300dcal per session for weight loss and Other additional plan/interventions Healthy Eating Habits Will attend diet classes:: Yes Outcomes/Goals:: Consume diet rich in vegs,fruits,whole grain/high fiber,fish,lean meat, Limit sat/trans fats,cholesterol & added salts & sugars and Other additional outcome/goals: Intervention/Plan:: Assess current eating habits and Other Additional plan/interventions Education Gave educational materials for:: Signs & symptoms of hypoglycemia, Signs & sy mptoms of hyperglycemia, Relate diabetes to coronary artery disease and Healthy eating Core - Initial Assessment Visit Date of Eval: 01/24/24 (initial eval ) Medication Compliance Preventative Medication(s):: KAREN inhibitor, Clopidogrel/P2Y12 inhibit and Statin/lipid H/O mental health issues: depression, anxiety, or addiction?: No Doesn?t believe in the benefits of treatment?: No Believes medications are unnecessary or harmful?: No Has a concern about medication side effects?: No Expresses concern over the cost of medications?: No Outcomes/Goals: Verbalizes medications,desired effect & common side effects @ DC, Pt self-reports following medication regimen, Keeps card in wallet w/medications listed by DC and Other additional outcome/goals: Interventions/plans: Instruct on medication effects & side effects, Review medication list w/patient every two weeks, Instruct importance of taking meds as ordered & assist problem solving and Other additional Tobacco Use Tobacco Use: Non-smoker Hypertension Resting Blood Pressure:: 150/90 [place] [employer] Hypertension Guidelines Outcomes/Goals: Able to verbalize/achieve optimal blood pressure <130/80, Incorporates diet changes & exercise for blood pressure control by DC and Other additional outcomes/goals Interventions/plan: Instruct on optimal blood pressure, hypertension & medications, Instruct on effects of sodium, alcohol, stress, exercise &hypertension and Other additional plan/interventions Tobacco Cessation Referral Smoking Cessation Referral:: No Individual Education/Counseling:: No Education Schedule Given:: Yes Psychosocial - Initial Assess VIsit Date of Eval: 01/24/24 (initial eval ) History of previous Mental disease:: No Target Goals Target Goals Psychosocial Test Tool Used:: Vic Hilario QOL Cardiac and PHQ-9 Questionnaire phq-9 Severity Referral to Behavioral Health PS - Interventions: Yes: Attend Stress Management Classes Outcomes/Goals: See list Psychosocial Outcomes/Goals:: ID's personal stressors & 2 strategies to manage stress by discharge and Other Additional outcome/goals: Intervention/Plan: See List Interventions/Plan:: Assess stressors,coping strategies & signs of derpression on admission, Instruct/assist pt to develop coping & personal stress Mgt strategies, Refer to Behavioral Health if appropriate, Refer to Physician if appropriate, Instruct patient to recognize signs & symptoms of depression, Instruct patient to recog and Other additional plan/intervention Patient Health Questionnaire PHQ-9 Screening Initial Assessment: 1. Little interest or pleasure in doing things: Several days 2. Feeling down, depressed, or hopeless: Not at all 3. Trouble falling or staying asleep, or sleeping too much: Nearly every day 4. Feeling tired or having little energy: Several days 5. Poor appetite or overeating: Several days 6. Feeling bad about yourself -- or that you are a failure or have let yourself or your family down: Not at all 7. Trouble concentrating on things, such as reading the newspaper or watching television: Not at all 8. Moving or speaking so slowly that other people could have noticed. Or the opposite - being so fidgety or restless that you have been moving around a lot more than usual: Not at all 9. Thoughts that you would be better off , or of hurting yourself in some way: Not at all How difficult have these problems made it for you to do your work, take care of things at home, or get along with other people?: Somewhat difficult Total Score: 6 MARTINA-Q SV Test Statements CAD is a disease of the arteries in the heart: False Examples of risk factors for heart disease: False Angina is chest pain or discomfort: True The benefits of resistance training include: I Don't Know Eating more meat and dairy products: False Anti-platelet medications such as aspirin are important: I Don't Know The only effective way to manage stress: False An exercise warm-up slowly increases heart rate: I Don't Know Prepared, processed foods usually have high sodium: True Depression is common after a heart attack: True The statin medications lower cholesterol: True To control blood pressure, lower the amount of sodium: True If someone gets chest discomfort during walking: False Transfats are partially hydrogenated vegetable oils: True Sleep apnea that is not treated increases the risk: False To control cholesterol, one should become a vegetarian: False Someone knows if he/she is exercising at the right level: I Don't Know Diabetes cannot be prevented with exercise & health eating: False Stress is a large risk for heart attack: True A diet that can help lower blood pressure is rich in: True Total Score Total Correct Responses: 15 Self-Efficacy 6-Item Scale Initial Assessment: We would like to know how confident you are in doing certain activities. Please select your confidence level for: Fatigue Select Number: 5 Physical Discomfort or Pain Select Number: 7 Emotional Distress Select Number: 7 Other Symptoms or Health Problems Select Number: 7 Different Tasks and Activities Select Number: 5 Medication Select Number: 7 Total Score:: 6 Nutrition Survey Nutrition Survey Instructions Scoring Instructions Nutrition Survey Initial: Have you lost >10 lbs over the past 2 months without trying?: Yes Are you following a special diet at home for diabetes, low fat, or low salt?: Yes Are you interested in meeting with a dietitian for help understanding your diet?: Yes Do you eat less than 3 meals a day?: Yes Do you eat fatty meats (aguilar, sausage, ribs, etc), fried foods, desserts, large amounts of salad dressings, margarine, butter, or cheese most days?: No Do you have food allergies? [Enter types in comment field]: No Do you eat in restaurants more than 3 times a week?: No Do you season food with salt, seasoning salt, or garlic salt?: No Do you used canned, boxed, frozen meals, or soups, seasoning packets?: Yes Total Score:: 5 Exercise - 30-day Assessment Physician Prescribed Exercise Modalities: Treadmill, Rower, Barbara Boylene AD-7, SciFit Stepper, SciFit Pro- II Ergometer and SciFit Lateral Silk Screen Cutter Exercise - 60-day Assessment Physician Prescribed Exercise Modalities: Treadmill, Rower, Jessicainn Airdyne AD-7, SciFit Stepper, SciFit Pro- II Ergometer and SciFit Lateral Silk Screen Cutter Exercise - 90-day Assessment Physician Prescribed Exercise Modalities: Treadmill, Rower, Schwinn Airdyne AD-7, SciFit Stepper, SciFit Pro- II Ergometer and SciFit Lateral Silk Screen Cutter Exercise - Final/Discharge Physician Prescribed Exercise Modalities: Treadmill, Rower, Schwinn Airdyne AD-7, SciFit Stepper, SciFit Pro- II Ergometer and SciFit Lateral [place] Frequency: 3x/week for 12 weeks [36 sessions] Intensity: 60-80% of age predicted maximum heart rate reserve Current METSs:: 3 Target Heart Rate:: 94-118 Nutrition - 30-Day Assessment Weight Mgt (Other Care) Height: 5 ft 2 in Weight:: 174 lb BMI: 31.8 Nutrition - 60-Day Assessment Weight Mgt (Other Care) Height: 5 ft 2 in Weight:: 174 lb BMI: 31.8 Core - Final Assessment Hypertension Resting Blood Pressure:: 150/90 [place] [employer] Hypertension Guidelines Core - 60-Day Assessment Hypertension Resting Blood Pressure:: 150/90 [place] [employer] Hypertension Guidelines Psychosocial - 30-Day Assess Target Goals Target Goals Referral to Behavioral Health PS - Interventions: Yes: Attend Stress Management Classes Psychosocial - 60-Day Assess Target Goals Target Goals Referral to Behavioral Health PS - Interventions: Yes: Attend Stress Management Classes Psychosocial - 90-Day Assess Target Goals Target Goals Referral to Behavioral Health PS - Interventions: Yes: Attend Stress Management Classes Psychosocial - Final Assessmen Target Goals Target Goals Referral to Behavioral Health PS - Interventions: Yes: Attend Stress Management Classes Nutrition - 90-Day Assessment Weight Mgt (Other Care) Height: 5 ft 2 in Weight:: 174 lb BMI: 31.8 Nutrition - Final Assessment Program Goals Patient has diagnosis of Hyperlipidemia (ICD E78)?: No Weight Mgt (Other Care) Height: 5 ft 2 in Weight:: 174 lb BMI: 31.8
[2024-01-24 08:42] VITALS: BP 150/90; PULSE 104; O2SAT 95; BMI 31.8
[2024-01-24 09:04] VITALS: BP 150/90; BMI 31.8
[2024-01-24 09:22] VITALS: BP 150/90
== END | disposition home or self-care (01) ==
LOC: CR 08:07
PROVIDERS: PCP Family Medicine; Referring Provider Internal Medicine Cardiovascular Disease; Visit Provider Internal Medicine Cardiovascular Disease
DX: I21.4 Non-ST elevation (NSTEMI) myocardial infarction (principal); I10 Essential (primary) hypertension

== ENCOUNTER 2024-01-31 09:15 | Outpatient (RCR) | payer OTHER, SELFPAY ==
[2024-01-24 09:04] VITALS: BMI 31.8
== END 2024-02-03 23:59 ==
LOC: CR 09:15
PROVIDERS: PCP Family Medicine; Referring Provider Internal Medicine Cardiovascular Disease; Visit Provider Internal Medicine Cardiovascular Disease
DX: I10 Essential (primary) hypertension (principal); D64.9 Anemia, unspecified; I21.4 Non-ST elevation (NSTEMI) myocardial infarction; R79.89 Other specified abnormal findings of blood chemistry
CPT/HCPCS: 93798

== ENCOUNTER → 2024-01-31 | Outpatient (CLI) | payer OTHER, SELFPAY ==
[2024-01-24 09:04] VITALS: BMI 31.8
[2024-01-31 08:47] LABS: Absolute Lymphocyte Count 1.73 X10^3/uL (0.83-4.51); Absolute Neutrophil Count 2.4 X10^3/uL (2.0-7.7); Basophil# 0.05 X10^3/uL; Eosinophil# 0.16 X10^3/uL; Eosinophils% 3.3 % (0-5); Hematocrit 38.6 % (37-47); Hemoglobin 11.7 g/dL (12.0-15.0); Lymphocyte # 1.73 X10^3/ul (0.83-4.51); Lymphocyte % 35.6 % (19-41); Mean Corp Hgb Conc 30.3 g/dL (32-36); Mean Corpuscular Hgb 24.8 pg (27.0-32.0); Mean Corpuscular Volume 81.8 fL (81-99); Mean Platelet Vol. 9.9 fl (6.2-12.0); Monocyte# 0.48 X10^3/uL; Monocyte% 9.9 % (0-10); NRBC Flagged by Analyzer 0 % (0-5); Neutrophil # 2.43 X10^3/uL (2.7-7.7); Platelet Count 268 K/mm3 (150-450); RBC Distribution Width SD 58.1 fl (35.1-43.9); Red Blood Count 4.72 M/mm3 (4.2-5.4); White Blood Count 4.9 K/mm3 (4.4-11.0)
[2024-01-31 09:28] LABS: ALB/GLOB Ratio 1.1 RATIO (0.9-2.4); AST(SGOT) 18 U/L (15-37); Alanine Aminotransfer ALT/SGPT 23 U/L (13-56); Albumin, Serum 3.6 g/dL (3.2-5.0); Alkaline Phosphatase 107 U/L (45-117); Anion Gap 6 (5-15); BUN 9 mg/dL (7-18); BUN/Creat Ratio 12.9 RATIO (10-20); Calcium,Total 9.6 mg/dL (8.5-10.1); Chloride 105 mmol/L (98-107); EST Glomerular Filtration Rate 90 mL/min (>60); Est Glom Filt Rate - Afr Amer 109 mL/min (>60); Globulin 3.3 g/dL (2.2-4.2); Glucose 216 mg/dL (74-106); Potassium 3.1 mmol/L (3.5-5.1); Protein, Total 6.9 g/dL (6.4-8.2); Sodium Level 142 mmol/L (136-145)
[2024-01-31 11:01] LABS: BNP,B-Type NATRIURETIC PEPTIDE 55.2 pg/mL (0-100)
== END | disposition home or self-care (01) ==
LOC: LAB 07:58
PROVIDERS: PCP Family Medicine; Referring Provider Nurse Practitioner Family; Visit Provider Nurse Practitioner Family
DX: D64.9 Anemia, unspecified (principal); R06.02 Shortness of breath
CPT/HCPCS: 36415; 80053; 83880; 85025

== ENCOUNTER 2024-02-09 15:12 | Emergency (ER) | payer OTHER, SELFPAY ==
[2024-01-24 09:04] VITALS: BMI 31.8
[2024-02-09] VITALS (10 sets, daily range): BP systolic 136–176; BP diastolic 84–116; PULSE 109–148; RESP 16–22; TEMP 36.6–37.3; O2SAT 95–99; BMI 32.8
--- NOTE | 2024-02-09 15:17 | EKG12_ITS ---
Test Reason : CP Blood Pressure : */* mmHG Vent. Rate : 137 BPM Atrial Rate : 137 BPM P-R Int : 120 ms QRS Dur : 76 ms QT Int : 364 ms P-R-T Axes : 67 13 63 degrees QTcB Int : 549 ms Sinus tachycardia vs svt Nonspecific ST and T wave abnormality Abnormal ECG Confirmed by Brandon Cintron ([id number]), material expeditor MOMO HENDERSON ([id number]) on 02/12/2024 6:49:39 AM Referred By: Confirmed By: Brandon Cintron
--- NOTE | 2024-02-09 16:01 | ED.VIS.CHEST ---
HPI <NELA Lanier - Last Filed: 02/09/24 19:42> History of Present Illness Chief Complaint: Chest Pain Narrative Narrative: 63-year-old female with PMH of HTN, HLD, DM2, CAD, rheumatoid arthritis states she has had a few days of congestion and cough and this morning around 8 AM developed left-sided chest heaviness radiating to the left shoulder. With walking she does not have worsening chest pain but she does feel short of breath and very lightheaded like she may pass out. No nausea or vomiting. About a month ago on 01/11/2024 she was admitted for pneumonia and NSTEMI. She states she had a cardiac catheterization and she did not require stents. She was started on Plavix, statin, and iron for anemia. Over the last week her resting heart rate has been high between 120?130 and she was unable to complete cardiac rehab due to this. Today it is in the 140s. She had outpatient labs today showing an abnormality/possibly elevated troponin and was sent in for evaluation. PFS <NELA Lanier - Last Filed: 02/09/24 19:42> [facility] Medical History (Updated 02/09/24 @ 19:04 by NELA Lanier) Anemia Diabetes mellitus, type 2 Obesity (BMI 30.0-34.9) NSTEMI, initial episode of care Hypothyroidism Diabetes Migraines Hypertension Arthritis Asthma Rheumatoid arthritis Home Medications ?Medication ?Instructions ?Recorded ?Last Taken ?Type fluticasone fur. 100 mcg-umeclid 1 ea inhalation DAILY 01/11/24 Unknown History 62.5 mcg-vilant 25 mcg inhalat.powder (Trelegy Ellipta) folic acid 1 mg tablet 1 mg PO DAILY 01/11/24 Unknown History hydroxychloroquine 200 mg tablet 200 mg PO DAILY 01/11/24 Unknown History infliximab-abda 100 mg intravenous IV Q7W RA 01/11/24 11/03/23 History solution (Renflexis) ipratropium bromide 42 mcg (0.06 2 spray intranasal TID PRN sinus 01/11/24 Unknown History %) nasal spray symptoms levothyroxine 25 mcg tablet 25 mcg PO DAILY 01/11/24 Unknown History lisinopril 20 mg tablet 20 mg PO DAILY 01/11/24 Unknown History metformin 500 mg tablet,extended 1,000 mg PO DAILY 01/11/24 Unknown History release 24 hr methotrexate sodium 2.5 mg tablet 20 mg PO QWEEK RA 01/11/24 01/07/24 History montelukast 10 mg tablet 10 mg PO DAILY 01/11/24 Unknown History tizanidine 2 mg tablet 2 - 6 mg PO QHS PRN PRN muscle 01/11/24 Unknown History spasticity albuterol sulfate 2.5 mg/3 mL 2.5 mg (3 mL) inhalation Q4H PRN 01/13/24 Unknown Rx (0.083 %) solution for nebulization PRN sob #180 mL albuterol sulfate 90 mcg/actuation 2 puff inhalation Q4H PRN 01/13/24 Unknown Rx aerosol inhaler shortness of breath or wheezing #8.5 grams atorvastatin 80 mg tablet 80 mg PO QHS 30 days #30 tabs 01/13/24 Unknown Rx clopidogrel 75 mg tablet 75 mg PO DAILY 30 days #30 tabs 01/13/24 Unknown Rx ferrous gluconate 240 mg (27 mg 240 mg PO DAILY 30 days #30 tabs 01/13/24 Unknown Rx iron) tablet (Ferate) guaifenesin 600 mg tablet, 600 mg PO BID 30 days #60 tabs 01/13/24 Unknown Rx extended release 12 hr (Mucinex) cholecalciferol (vitamin D3) 1,250 1,250 mcg PO QWEEK 02/09/24 Unknown History mcg (50,000 unit) capsule lisinopril 30 mg tablet 30 mg PO DAILY 02/09/24 Unknown History metoprolol succinate 25 mg 25 mg PO QHS #30 tabs 02/09/24 Unknown Rx tablet,extended release 24 hr metoprolol tartrate 50 mg tablet 50 mg PO BID 30 days #60 tabs 02/09/24 Unknown Rx naproxen 500 mg tablet 500 mg PO BID 02/09/24 Unknown History potassium chloride 20 mEq 20 meq PO QDAY #30 tabs 02/09/24 Unknown Rx tablet,extended release Allergy/AdvReac Type Severity Reaction Status Date / Time meperidine (From Demerol) AdvReac HYPOTENSION Verified 02/09/24 15:15 Sulfa (Sulfonamide AdvReac Abd Verified 02/09/24 15:15 Antibiotics) cramps/diarrhea Surgical History History of appendectomy History of cholecystectomy Social History Smoking Status: Never smoker ROS <NELA Lanier - Last Filed: 02/09/24 19:42> ROS ED ROS Narrative Constitutional: Negative for fever, chills, malaise. ENT: Positive for rhinorrhea. CVS: Positive for chest pain. Respiratory: Positive for cough. GI: Negative for abdominal pain, nausea, vomiting. EXAM <NELA Lanier - Last Filed: 02/09/24 19:42> Physical Exam Narrative Exam Narrative: CONST: Patient sitting in no acute distress. EYES: Normal inspection. ENT: Normal inspection, moist mucous membranes. NECK: Normal inspection. RESP: No respiratory distress, CTAB. CVS: Tachycardic regular rate and rhythm, no murmur, no gallop. ABD: Soft and nontender, no guarding or rebound, nondistended. SKIN: Color normal, no rash, warm, dry, intact. EXTREMITIES: Normal appearance, no pedal edema. NEURO: Alert and answering questions appropriately. PSYCH: Normal affect. Const Vital Signs: 02/09/24 15:12 02/09/24 16:12 02/09/24 16:49 Temperature 97.8 F Temperature Source Oral Pulse Rate 148 H 133 H Respiratory Rate 16 22 H Respiratory Effort Blood Pressure 136/116 H 156/103 H Blood Pressure Mean 122 120 Pulse Ox 96 98 Oxygen Delivery Method Room Air Room Air Room Air 02/09/24 16:49 02/09/24 17:00 02/09/24 17:00 Temperature Temperature Source Pulse Rate 133 H 130 H Respiratory Rate 22 H 22 H Respiratory Effort Blood Pressure 176/95 H 176/95 H Blood Pressure Mean 122 119 Pulse Ox 95 98 98 Oxygen Delivery Method Room Air 02/09/24 17:09 02/09/24 17:15 02/09/24 17:30 Temperature Temperature Source Pulse Rate 128 H 129 H Respiratory Rate 16 22 H Respiratory Effort Short of Breath Blood Pressure 167/105 H 175/91 H Blood Pressure Mean 125 114 Pulse Ox 99 98 Oxygen Delivery Method Room Air 02/09/24 17:44 02/09/24 18:00 02/09/24 19:00 Temperature 98.4 F Temperature Source Oral Pulse Rate 113 H 109 H 112 H Respiratory Rate 16 19 H 16 Respiratory Effort Blood Pressure 161/84 H 166/86 H 152/95 H Blood Pressure Mean 109 112 114 Pulse Ox 97 96 96 Oxygen Delivery Method Room Air Room Air 02/09/24 19:47 Temperature 99.1 F Temperature Source Pulse Rate 111 H Respiratory Rate 16 Respiratory Effort Blood Pressure 152/95 H Blood Pressure Mean 114 Pulse Ox 96 Oxygen Delivery Method <Dr. Gustabo العلي DO - Last Filed: 02/09/24 23:36> Physical Exam Const Vital Signs: 02/09/24 15:12 02/09/24 16:12 02/09/24 16:49 Temperature 97.8 F Temperature Source Oral Pulse Rate 148 H 133 H Respiratory Rate 16 22 H Respiratory Effort Blood Pressure 136/116 H 156/103 H Blood Pressure Mean 122 120 Pulse Ox 96 98 Oxygen Delivery Method Room Air Room Air Room Air 02/09/24 16:49 02/09/24 17:00 02/09/24 17:00 Temperature Temperature Source Pulse Rate 133 H 130 H Respiratory Rate 22 H 22 H Respiratory Effort Blood Pressure 176/95 H 176/95 H Blood Pressure Mean 122 119 Pulse Ox 95 98 98 Oxygen Delivery Method Room Air 02/09/24 17:09 02/09/24 17:15 02/09/24 17:30 Temperature Temperature Source Pulse Rate 128 H 129 H Respiratory Rate 16 22 H Respiratory Effort Short of Breath Blood Pressure 167/105 H 175/91 H Blood Pressure Mean 125 114 Pulse Ox 99 98 Oxygen Delivery Method Room Air 02/09/24 17:44 02/09/24 18:00 02/09/24 19:00 Temperature 98.4 F Temperature Source Oral Pulse Rate 113 H 109 H 112 H Respiratory Rate 16 19 H 16 Respiratory Effort Blood Pressure 161/84 H 166/86 H 152/95 H Blood Pressure Mean 109 112 114 Pulse Ox 97 96 96 Oxygen Delivery Method Room Air Room Air 02/09/24 19:47 Temperature 99.1 F Temperature Source Pulse Rate 111 H Respiratory Rate 16 Respiratory Effort Blood Pressure 152/95 H Blood Pressure Mean 114 Pulse Ox 96 Oxygen Delivery Method MDM <NELA Lanier - Last Filed: 02/09/24 19:42> MDM MDM Narrative Medical decision making narrative: Patient was sent in for outpatient elevated troponin. She has had recent URI and developed chest pain this morning especially with coughing. She appears well and nontoxic. Her heart rate is in the 140s?it was read as sinus tachycardia but it is hard to tell if there may be a flutter component. Her lungs are clear. She is in no distress. Hemoglobin 11.7 is significantly improved from previous. Potassium slightly low at 3.0, otherwise unremarkable electrolytes. Troponin is 214. During her admission a month ago with pneumonia/NSTEMI was in the 500?600 range. Due to significant tachycardia and elevated troponin I ordered a CTA which shows no acute process. She was given IV metoprolol 5 mg x 2 and heart rate improved to around 110. Repeat EKG confirms this is sinus tachycardia. She had a cardiac catheterization 1 month ago which showed no significant disease requiring intervention. I discussed the case with Dr. Cintron who reviewed pictures of the EKGs and agrees this is sinus tachycardia. Since her catheterization last month did not show significant disease he did not think this was cardiac in nature. He thought that her chest pain could be pleuritic in nature from her URI and recommended Toradol here and Tylenol at home. He also wanted me to prescribe metoprolol tartrate 50 mg twice daily and she will follow-up with the cardiology office. She was discharged in stable condition. Consults: Cardiology Differential includes but not limited to viral URI, pneumonia, ACS, PE, arrhythmia External records reviewed: Cardiac cath report 01/12/2024 NSTEMI with elevated enzymes From cardiac standpoint she has moderate disease 40 to 50% involving the proximal RCA which is likely the culprit with a ruptured plaque which is recannulized. Started on Plavix, hold aspirin awaiting GI evaluation. Lab Data Attestation: I reviewed the patient's lab results. Labs: Laboratory Results - last 24 hr 02/09/24 17:05 WBC 8.0 RBC 4.62 Hgb 11.7 L Hct 37.5 MCV 81.2 MCH 25.3 L MCHC 31.2 L RDW Std Deviation 54.4 H RDW Coeff of Jeison 19.0 H Plt Count 219 MPV 10.1 Immature Gran % (Auto) 0.400 Neut % (Auto) 67.2 Lymph % (Auto) 18.8 L [place] % (Auto) 12.0 H Eos % (Auto) 1.1 Baso % (Auto) 0.5 Absolute Neuts (auto) 5.4 Absolute Lymphs (auto) 1.50 Nucleated RBC % 0 PT 13.9 INR 1.1 Sodium 141 Potassium 3.0 L Chloride 110 H Carbon Dioxide 23.0 Anion Gap 9 BUN 10 Creatinine 0.62 Estim Creat Clear Calc 91.87 Est GFR (MDRD) Af Amer 125 Est GFR (MDRD) Non-Af 104 BUN/Creatinine Ratio 16.2 Glucose 147 H Calcium 9.1 Troponin I High Sens 214 H* Radiography Diagnostic Testing: Clinical Impression(s) from Imaging Studies Chest CTA 02/09/24 16:07 IMPRESSION: Negative CTA chest. Electronically Signed: Fabrizio Zhang MD at 18:40 EST , <Dr. Gustabo العلي, DO - Last Filed: 02/09/24 23:36> [facility] MDM Narrative Medical decision making narrative: Patient was sent in for outpatient elevated troponin. She has had recent URI and developed chest pain this morning especially with coughing. She appears well and nontoxic. Her heart rate is in the 140s?it was read as sinus tachycardia but it is hard to tell if there may be a flutter component. Her lungs are clear. She is in no distress. Hemoglobin 11.7 is significantly improved from previous. Potassium slightly low at 3.0, otherwise unremarkable electrolytes. Troponin is 214. During her admission a month ago with pneumonia/NSTEMI was in the 500?600 range. Due to significant tachycardia and elevated troponin I ordered a CTA which shows no acute process. She was given IV metoprolol 5 mg x 2 and heart rate improved to around 110. Repeat EKG confirms this is sinus tachycardia. She had a cardiac catheterization 1 month ago which showed no significant disease requiring intervention. I discussed the case with Dr. Cintron who reviewed pictures of the EKGs and agrees this is sinus tachycardia. Since her catheterization last month did not show significant disease he did not think this was cardiac in nature. He thought that her chest pain could be pleuritic in nature from her URI and recommended Toradol here and Tylenol at home. He also wanted me to prescribe metoprolol tartrate 50 mg twice daily and she will follow-up with the cardiology office. She was discharged in stable condition. Consults: Cardiology Differential includes but not limited to viral URI, pneumonia, ACS, PE, arrhythmia External records reviewed: Cardiac cath report 01/12/2024 NSTEMI with elevated enzymes From cardiac standpoint she has moderate disease 40 to 50% involving the proximal RCA which is likely the culprit with a ruptured plaque which is recannulized. Started on Plavix, hold aspirin awaiting GI evaluation. Attending note: I have personally performed a face to face assessment of the patient and have reviewed the PETER note. I personally made/approved the management plan and take responsibility for the patient management. I performed a substantive portion of the visit including all aspects of the following. My day findings include: Increasing cough for past couple days chest pain with cough. Diagnosed NSTEMI secondary pneumonia earlier January. Heart cath with nonobstructive right coronary disease. She is on Plavix and Statin. No fever or chills. She was told by her doctor not to wait for illnesses significant from her department. Arrival tachycardic EKG sinus rhythm. Concern for possible a flutter. She had no vomiting or diarrhea. She was given Lopressor heart rate down to 110s, did not show any other rhythms. Cardiac workup troponin was 214 when she was admitted last month she is in the 400 range. Nonobstructive coronary disease. She has CT of the chest due to her tachycardia negative for PE. Discussed with on-call cardiology recommended starting beta-tamir agree likely sinus tachycardia. Outpatient follow-up. Lab Data Labs: Laboratory Results - last 24 hr 02/09/24 17:05 WBC 8.0 RBC 4.62 Hgb 11.7 L Hct 37.5 MCV 81.2 MCH 25.3 L MCHC 31.2 L RDW Std Deviation 54.4 H RDW Coeff of Jeison 19.0 H Plt Count 219 MPV 10.1 Immature Gran % (Auto) 0.400 Neut % (Auto) 67.2 Lymph % (Auto) 18.8 L [place] % (Auto) 12.0 H Eos % (Auto) 1.1 Baso % (Auto) 0.5 Absolute Neuts (auto) 5.4 Absolute Lymphs (auto) 1.50 Nucleated RBC % 0 PT 13.9 INR 1.1 Sodium 141 Potassium 3.0 L Chloride 110 H Carbon Dioxide 23.0 Anion Gap 9 BUN 10 Creatinine 0.62 Estim Creat Clear Calc 91.87 Est GFR (MDRD) Af Amer 125 Est GFR (MDRD) Non-Af 104 BUN/Creatinine Ratio 16.2 Glucose 147 H Calcium 9.1 Troponin I High Sens 214 H* Radiography Diagnostic Testing: Clinical Impression(s) from Imaging Studies Chest CTA 02/09/24 16:07 IMPRESSION: Negative CTA chest. Electronically Signed: Fabrizio Zhang MD at 18:40 EST Reading Location ID and State: [facility] / [place] Tel , Service support , Discharge Plan Triage Chief Complaint: Chest Pain ED Midlevel Provider: Sofya Rodrigues ED Provider: Gustabo العلي Dx/Rx/DC Orders Clinical Impression: Upper respiratory infection, Elevated troponin, Sinus tachycardia, Hypokalemia Instructions: Adult Self-Care for Colds, Understanding Tachycardia Prescriptions: New metoprolol tartrate 50 mg tablet 50 mg PO BID 30 Days Qty: 60 0RF No Action lisinopril 30 mg tablet 30 mg PO DAILY naproxen 500 mg tablet 500 mg PO BID cholecalciferol (vitamin D3) 1,250 mcg (50,000 unit) capsule 1,250 mcg PO QWEEK tizanidine 2 mg tablet 2 - 6 mg PO QHS PRN PRN (Reason: muscle spasticity) lisinopril 20 mg tablet 20 mg PO DAILY Patient Comments: increased to 30 mg today but has not started new dose yet 02/09/24 levothyroxine 25 mcg tablet 25 mcg PO DAILY methotrexate sodium 2.5 mg tablet 20 mg PO QWEEK Patient Comments: takes it every Monday folic acid 1 mg tablet 1 mg PO DAILY montelukast 10 mg tablet 10 mg PO DAILY hydroxychloroquine 200 mg tablet 200 mg PO DAILY ipratropium bromide 42 mcg (0.06 %) spray,non-aerosol 2 spray INTRANASAL TID PRN (Reason: sinus symptoms) metformin 500 mg tablet extended release 24 hr 1,000 mg PO DAILY Trelegy Ellipta 100-62.5-25 mcg blister with device 1 ea inhalation DAILY Renflexis 100 mg recon soln IV Q7W Patient Comments: gets it every 7 weeks atorvastatin 80 mg Tablet 80 mg PO QHS 30 Days Qty: 30 0RF clopidogrel 75 mg Tablet 75 mg PO DAILY 30 Days Qty: 30 0RF guaifenesin [Mucinex] 600 mg Tablet Extended Release 12hr 600 mg PO BID 30 Days Qty: 60 0RF albuterol sulfate 2.5 mg /3 mL (0.083 %) solution for nebulization 2.5 mg inhalation Q4H PRN PRN (Reason: sob) Qty: 180 0RF albuterol sulfate 90 mcg/actuation HFA aerosol inhaler 2 puff inhalation Q4H PRN (Reason: shortness of breath or wheezing) Qty: 8.5 0RF ferrous gluconate [Ferate] 240 mg (27 mg iron) tablet 240 mg PO DAILY 30 Days Qty: 30 0RF metoprolol succinate 25 mg tablet extended release 24 hr 25 mg PO QHS Qty: 30 11RF potassium chloride 20 mEq tablet extended release 20 meq PO QDAY Qty: 30 11RF Primary Care Provider: Paul Huston Referrals: Paul Huston MD [Primary Care Provider] - Activity Restrictions/Additional Instructions: Your heart enzymes are elevated likely secondary from the upper respiratory infection you have. Your CT scan showed no evidence of blood clot or pneumonia. I spoke with Dr. Cintron who recommended starting metoprolol tartrate 50 mg twice a day, morning and evening. Take Tylenol as needed for pain. Follow-up with the cardiology office. Print Language: Ukrainian Disposition Disposition: Home, Self Care Discharge Date/Time: 02/09/24 20:32
--- NOTE | 2024-02-09 16:07 | CT_ITS ---
EXAM: CT ANGIOGRAPHY CHEST WITHOUT AND WITH INTRAVENOUS CONTRAST CLINICAL INDICATION: chest pain, tachycardia TECHNIQUE: Helically acquired angiography images were obtained of the chest without and with intravenous contrast. This CT exam was performed using one or more of the following dose reduction techniques: automated exposure control, adjustment of the mA and/or kV according to patient size, and/or use of iterative reconstruction technique. MIP reconstructed images were created and reviewed. CONTRAST: IV 100mL [id number] COMPARISON: 03/15/2021 FINDINGS: PULMONARY ARTERIES: Unremarkable. Normal in caliber. No evidence of pulmonary embolism. AORTA: Unremarkable. Normal in caliber. No evidence of dissection. GREAT VESSELS OF AORTIC ARCH: Unremarkable. Normal in caliber. No evidence of dissection. LUNGS AND PLEURAL SPACES: Unremarkable. No mass. No consolidation or edema. No pleural effusion or thickening. No pneumothorax. HEART: Unremarkable. Heart size is normal. No pericardial effusion. No significant coronary artery calcifications. MEDIASTINUM: Unremarkable. No mediastinal or hilar adenopathy. Esophagus is unremarkable. No hiatal hernia. THYROID: Unremarkable. No thyroid lesions. BONES/JOINTS: Unremarkable. No suspicious lytic or blastic abnormality. CT/CTA Chest W/WO Contrast IMPRESSION: Negative CTA chest. Electronically Signed: Fabrizio Zhang MD at 18:40 EST ,
[2024-02-09] MEDS: Aspirin 325 MG Tablet PO (16:50)
[2024-02-09 17:21] LABS: Absolute Neutrophil Count 5.4 X10^3/uL (2.0-7.7); Basophil# 0.04 X10^3/uL; Basophil% 0.5 % (0-1); Eosinophil# 0.09 X10^3/uL; Eosinophils% 1.1 % (0-5); Hematocrit 37.5 % (37-47); Hemoglobin 11.7 g/dL (12.0-15.0); Lymphocyte % 18.8 % (19-41); Mean Corp Hgb Conc 31.2 g/dL (32-36); Mean Corpuscular Hgb 25.3 pg (27.0-32.0); Mean Corpuscular Volume 81.2 fL (81-99); Mean Platelet Vol. 10.1 fl (6.2-12.0); Monocyte# 0.96 X10^3/uL; NRBC Flagged by Analyzer 0 % (0-5); Neutrophil # 5.37 X10^3/uL (2.7-7.7); Neutrophil % 67.2 % (47-70); Platelet Count 219 K/mm3 (150-450); RBC Distribution Width SD 54.4 fl (35.1-43.9); Red Blood Count 4.62 M/mm3 (4.2-5.4)
[2024-02-09 17:28] LABS: International Normalized Ratio 1.1; Prothrombin Time (Protime)PT. 13.9 SECONDS (11.7-14.9)
[2024-02-09] MEDS: Metoprolol Tartrate 5 MG/5 ML Vial IV ×2 (17:36→18:12)
[2024-02-09 17:47] LABS: Anion Gap 9 (5-15); BUN 10 mg/dL (7-18); BUN/Creat Ratio 16.2 RATIO (10-20); Calcium,Total 9.1 mg/dL (8.5-10.1); Chloride 110 mmol/L (98-107); Creatinine, Serum 0.62 mg/dL (0.55-1.02); EST Glomerular Filtration Rate 104 mL/min (>60); Est Glom Filt Rate - Afr Amer 125 mL/min (>60); Estimated Creatinine Clearance 91.87 ml/min; Glucose 147 mg/dL (74-106); Sodium Level 141 mmol/L (136-145); Troponin-I HS (w/2H Reflex) 214 pg/mL (3.0-54.0)
--- NOTE | 2024-02-09 17:59 | ED.RN ---
Patient transported to CT
[2024-02-09] MEDS: Potassium Chloride Oral Tablet 20 MEQ 40 MEQ PO (18:20)
--- NOTE | 2024-02-09 18:45 | EKG12_ITS ---
Test Reason : DYSRHYTHMIA Blood Pressure : */* mmHG Vent. Rate : 110 BPM Atrial Rate : 110 BPM P-R Int : 140 ms QRS Dur : 80 ms QT Int : 352 ms P-R-T Axes : 53 0 44 degrees QTcB Int : 476 ms Sinus tachycardia Nonspecific ST abnormality Abnormal ECG Confirmed by Brandon Cintron ([id number]), story editor BENY HARRISON ([id number]) on 02/12/2024 9:07:15 AM Referred By: Confirmed By: Brandon Cintron
[2024-02-09 19:18] LABS: Reflex Troponin-HS? (from REC) Y
[2024-02-09] MEDS: Ketorolac 15 MG/ML Vial IV (19:59)
--- NOTE | 2024-02-09 20:30 | ED.RN ---
This RN was given this patient, who needed to be discharged. When this RN went to discharge the patient, this RN found that the patient had a port accessed in her chest by [facility]. However, the port access was not charted on, the flush protocol was not put in, and this RN was not informed during report.
== END 2024-02-09 20:32 | disposition home or self-care (01) ==
PROVIDERS: Emergency Provider Emergency Medicine; PCP Family Medicine; Visit Provider Emergency Medicine
DX: J06.9 Acute upper respiratory infection, unspecified (principal); E11.9 Type 2 diabetes mellitus without complications; I25.10 Atherosclerotic heart disease of native coronary artery without angina pectoris; I10 Essential (primary) hypertension; I25.2 Old myocardial infarction; E78.5 Hyperlipidemia, unspecified; E87.6 Hypokalemia; R79.89 Other specified abnormal findings of blood chemistry; R00.0 Tachycardia, unspecified; Z79.02 Long term (current) use of antithrombotics/antiplatelets; Z79.84 Long term (current) use of oral hypoglycemic drugs; Z79.899 Other long term (current) drug therapy
CPT/HCPCS: 36591; 71275; 80048; 84484; 85025; 85610; 93005; 96374; 96375; 96376; 99285; Q9967; A4216

== ENCOUNTER → 2024-02-09 | Outpatient (CLI) | payer OTHER, SELFPAY ==
[2024-01-24 09:04] VITALS: BMI 31.8
[2024-02-09 12:15] LABS: Absolute Lymphocyte Count 1.61 X10^3/uL (0.83-4.51); Absolute Neutrophil Count 6.1 X10^3/uL (2.0-7.7); Basophil# 0.04 X10^3/uL; Basophil% 0.5 % (0-1); Eosinophils% 1.1 % (0-5); Hematocrit 39.9 % (37-47); Hemoglobin 12.2 g/dL (12.0-15.0); Lymphocyte # 1.61 X10^3/ul (0.83-4.51); Lymphocyte % 18.4 % (19-41); Mean Corp Hgb Conc 30.6 g/dL (32-36); Mean Corpuscular Hgb 25.1 pg (27.0-32.0); Mean Corpuscular Volume 82.1 fL (81-99); Mean Platelet Vol. 10.5 fl (6.2-12.0); Monocyte# 0.92 X10^3/uL; Monocyte% 10.5 % (0-10); NRBC Flagged by Analyzer 0 % (0-5); Neutrophil # 6.05 X10^3/uL (2.7-7.7); Platelet Count 246 K/mm3 (150-450); RBC Distribution Width CV 19.4 % (11.6-14.6); RBC Distribution Width SD 56.5 fl (35.1-43.9); Red Blood Count 4.86 M/mm3 (4.2-5.4); White Blood Count 8.8 K/mm3 (4.4-11.0)
[2024-02-09 13:42] LABS: AST(SGOT) 12 U/L (15-37); Alanine Aminotransfer ALT/SGPT 21 U/L (13-56); Albumin, Serum 3.8 g/dL (3.2-5.0); Alkaline Phosphatase 77 U/L (45-117); Anion Gap 10 (5-15); BUN 8 mg/dL (7-18); BUN/Creat Ratio 13.1 RATIO (10-20); Calcium,Total 9.4 mg/dL (8.5-10.1); Chloride 107 mmol/L (98-107); Creatinine, Serum 0.61 mg/dL (0.55-1.02); EST Glomerular Filtration Rate 105 mL/min (>60); Est Glom Filt Rate - Afr Amer 127 mL/min (>60); Globulin 3.7 g/dL (2.2-4.2); Glucose 174 mg/dL (74-106); Potassium 3.1 mmol/L (3.5-5.1); Protein, Total 7.5 g/dL (6.4-8.2); Sodium Level 140 mmol/L (136-145); Troponin-I HS 213 pg/mL (3.0-54.0)
== END | disposition home or self-care (01) ==
LOC: MFPLAB 10:31
PROVIDERS: PCP Family Medicine; Referring Provider Family Medicine; Visit Provider Family Medicine
DX: R06.02 Shortness of breath (principal)
CPT/HCPCS: 36415; 80053; 82306; 84443; 84484; 85025

== ENCOUNTER 2024-02-21 09:15 | Outpatient (RCR) | payer OTHER, SELFPAY ==
[2024-01-24 09:04] VITALS: BMI 31.8
--- NOTE | 2024-02-23 11:14 | CR.ITP_ITS ---
Exercise - Initial Assessment Visit Session #:: 8 Physician Prescribed Exercise Modalities: Treadmill and SciFit Stepper Nutrition - Initial Assessment Weight Mgt (Other Care) Height: 5 ft 2 in Weight:: 174 lb 8 oz BMI: 31.8 Psychosocial - Initial Assess Target Goals Target Goals Referral to Behavioral Health PS - Interventions: Yes: Attend Stress Management Classes Patient Health Questionnaire PHQ-9 Screening 30-Day Re-eval Assessment: 1. Little interest or pleasure in doing things: Several days 2. Feeling down, depressed, or hopeless: Not at all 3. Trouble falling or staying asleep, or sleeping too much: Nearly every day 4. Feeling tired or having little energy: Several days 5. Poor appetite or overeating: Several days 6. Feeling bad about yourself -- or that you are a failure or have let yourself or your family down: Not at all 7. Trouble concentrating on things, such as reading the newspaper or watching television: Not at all 8. Moving or speaking so slowly that other people could have noticed. Or the opposite - being so fidgety or restless that you have been moving around a lot more than usual: Not at all 9. Thoughts that you would be better off , or of hurting yourself in some way: Not at all How difficult have these problems made it for you to do your work, take care of things at home, or get along with other people?: Somewhat difficult Total Score: 6 Self-Efficacy 6-Item Scale 30-Day Re-eval Assessment: We would like to know how confident you are in doing certain activities. Please select your confidence level for: Fatigue Select Number: 5 Physical Discomfort or Pain Select Number: 7 Emotional Distress Select Number: 7 Other Symptoms or Health Problems Select Number: 7 Different Tasks and Activities Select Number: 5 Medication Select Number: 7 Total Score:: 6 Nutrition Survey Nutrition Survey Instructions Scoring Instructions Exercise - 30-day Assessment Visit Date of Eval: 02/23/24 Session #:: 8 Physician Prescribed Exercise Modalities: Treadmill and SciFit Stepper Frequency: 3x/week for 12 weeks [36 sessions] Intensity: 60-80% of age predicted maximum heart rate reserve Duration: 30 - 45 minutes Current METSs:: 3.3 Target Heart Rate:: 94-118 Current RPE:: 13 Maximum Excercise HR:: 120 Resting Blood Pressure: 148/80 Maximum Exercise Blood Pressure: 140/80 EKG Type: Sr to ST with a rare pac, pvc. Outcomes & Goals Goals:: Verbalizes understanding of THR, RPE & goal METS by session 6, Documents in home exercise log/reports 30 min aerobic 5 day/wk by DC, Demonstrates accurate pulse taking by DC and Other additional outcome/goals: see below Intervention & Plan Exercise Program Goals: Instruct on personal THR & RPE, Instruct on MET level & personal MET goal, Show patient to take own pulse /validate performance until accurate, Instruct on home exercise and Other additional plan/int Physical Activity Home Exercise Physical Activity - Home Exercise: Safe Exercise, Warm-up, Self-monitoring, Cool-Down, Home Exercise > 30 min Daily and Sitting Time <3 hours/daily Outcomes & Goals Outcomes/Goals: Demonstrates correct Warm-up/exercise Cool-Down (S3) if = 2.5 METs, Verbalizes symptoms of exercise intolerance by Session 3 (S3), Demonstrate safe equipment use (S3) & follows exercise prescrition (6) and Other: See below Intervention & Plan Plan/Intervention: Instruct warm-up & cool-down if exercising at > 2 METs, Instruct on symptoms of exercise intolerance & actions to take, Instruct & monitor on saf, Assess intial functional capacity & safety risk and Other See below 30-day Reassessments 30 day Reassessments:: Progressing Reassessment Notes & Comments:: RPE explained to pt. Pt is able to return demonstration. Exercise - 60-day Assessment Physician Prescribed Exercise Modalities: Treadmill and SciFit Stepper Exercise - 90-day Assessment Physician Prescribed Exercise Modalities: Treadmill and SciFit Stepper Exercise - Final/Discharge Physician Prescribed Exercise Modalities: Treadmill and SciFit Stepper Nutrition - 30-Day Assessment Program Goals Nutrition Program Goals Patient has diagnosis of Hyperlipidemia (ICD E78)?: No Visit Date of Eval: 02/23/24 Session #:: 8 Cholesterol/Lipids (Other Core Measures) Determine presence & major risk factors that modify LDL goal: Hypertension or hypertensive medication, Low HDL cholesterol <40 mg/dL*, Family history of premature CHD in Male < 55 years: female <65 yearsFa and Age men > 45 years; women >/= 55 years Outcomes/Goals: Pt IDs own risk factors & lifestyle modifications by Session 10, Verbalizes symptoms of angina & response by session 3., Pt independently manages and Other Additional Outcomes/Goals: Intervention/Plan: Advocate for lipid panel cholesterol medication if applicable, Instruct on personal lipid levels & lipid goals/NCEP guidelines, Instruct on cholesterol and Other additional plan/int Diabetes (Other Core Measures) Diabetes Type: Diagnosis Type II ICD-10 E11 Insulin dependent injection/pump?: No Non-Insulin Dependent?: Yes Do you monitor your blood sugar at home?: Yes Referral to Diabetic Clinic:: Yes Outcomes/Goals:: Able to state symptoms of, Able to state, Able to state and Other additional Intervention/Plan:: Instruct on, Refer to, Instruct on and Other Weight Mgt (Other Care) Height: 5 ft 2 in Weight:: 174 lb 8 oz BMI: 31.8 Diagnosis Overweight/Obesity BMI> 30% ICD-10 E66: Yes Diagnosis High BMI/Morbid Obesity BMI> 35% ICD-10 Z68: No Outcomes/Goals: Pt sets, maintains & shows weight loss goal & trend during rehab and Other additional outcomes/goals Intervention/Plan: Instruct on ideal BMI & set weight loss goal w/patient, Assist pt to ID & incorporate diet changes for weight loss by S9, Refer to Structured Weight Loss program as appropriate, Encourage goal of using 250- 300dcal per session for weight loss and Other additional plan/interventions Healthy Eating Habits Will attend diet classes:: Yes Outcomes/Goals:: Consume diet rich in vegs,fruits,whole grain/high fiber,fish,lean meat, Limit sat/trans fats,cholesterol & added salts & sugars and Other additional outcome/goals: Intervention/Plan:: Assess current eating habits and Other Additional plan/interventions 30-day Reassessments:: Progressing Reassessment Notes & Comments:: Pt is to attend nutrition class. Pt has lost 4 lbs. Education Gave educational materials for:: Signs & symptoms of hypoglycemia, Signs & symptoms of hyperglycemia, Relate diabetes to coronary artery disease and Healthy eating Nutrition - 60-Day Assessment Weight Mgt (Other Care) Height: 5 ft 2 in Weight:: 174 lb 8 oz BMI: 31.8 Core - 30-Day Assessment Visit Date of Eval: 02/23/24 Session #:: 8 Medication Compliance Preventative Medication(s):: KAREN inhibitor, Clopidogrel/P2Y12 inhibit and Statin/lipid H/O mental health issues: depression, anxiety, or addiction?: No Doesn?t believe in the benefits of treatment?: No Believes medications are unnecessary or harmful?: No Has a concern about medication side effects?: No Expresses concern over the cost of medications?: No Outcomes/Goals: Verbalizes medications,desired effect & common side effects @ DC, Pt self-reports following medication regimen, Keeps card in wallet w/medications listed by DC and Other additional outcome/goals: Interventions/plans: Instruct on medication effects & side effects, Review medication list w/patient every two weeks, Instruct importance of taking meds as ordered & assist problem solving and Other additional Tobacco Use Tobacco Use: Non-smoker Hypertension Resting Blood Pressure:: 148/80 [place] [employer] Hypertension Guidelines Peak Exercise Blood Pressure:: 140/80 Outcomes/Goals: Able to verbalize/achieve optimal blood pressure <130/80, Incorporates diet changes & exercise for blood pressure control by DC and Other additional outcomes/goals Interventions/plan: Instruct on optimal blood pressure, hypertension & medications, Instruct on effects of sodium, alcohol, stress, exercise &hypertension and Other additional plan/interventions 30 day Reassessments:: Progressing Reassessment Notes & Comments:: Importance of taking meds stressed in education. Pt demonstrates understanding. Tobacco Cessation Referral Smoking Cessation Referral:: No Individual Education/Counseling:: No Education Schedule Given:: Yes Psychosocial - 30-Day Assess VIsit Date of Eval: 02/23/24 Session #:: 8 History of previous Mental disease:: No Target Goals Target Goals Psychosocial Test Tool Used:: [employer] QOL Cardiac and PHQ-9 Questionnaire phq-9 Severity Referral to Behavioral Health PS - Interventions: Yes: Attend Stress Management Classes Outcomes/Goals: See list Psychosocial Outcomes/Goals:: ID's personal stressors & 2 strategies to manage stress by discharge and Other Additional outcome/goals: Intervention/Plan: See List Interventions/Plan:: Assess stressors,coping strategies & signs of derpression on admission, Instruct/assist pt to develop coping & personal stress Mgt strategies, Refer to Behavioral Health if appropriate, Refer to Physician if appropriate, Instruct patient to recognize signs & symptoms of depression, Inst ruct patient to recog and Other additional plan/intervention 30-day Reassessments: 30 day Reassessments:: Met Reassessment Notes & Comments:: Pt denies any psychosocial issues at this time. Psychosocial - 60-Day Assess Target Goals Target Goals Referral to Behavioral Health PS - Interventions: Yes: Attend Stress Management Classes Outcomes/Goals: See list Psychosocial Outcomes/Goals:: ID's personal stressors & 2 strategies to manage stress by discharge and Other Additional outcome/goals: Psychosocial - 90-Day Assess Target Goals Target Goals Referral to Behavioral Health PS - Interventions: Yes: Attend Stress Management Classes Psychosocial - Final Assessmen Target Goals Target Goals Referral to Behavioral Health PS - Interventions: Yes: Attend Stress Management Classes Nutrition - 90-Day Assessment Weight Mgt (Other Care) Height: 5 ft 2 in Weight:: 174 lb 8 oz BMI: 31.8 Nutrition - Final Assessment Weight Mgt (Other Care) Height: 5 ft 2 in Weight:: 174 lb 8 oz BMI: 31.8
[2024-02-23 11:26] VITALS: BP 148/80; BMI 31.8
== END 2024-03-05 23:59 ==
LOC: CR 09:15
PROVIDERS: PCP Family Medicine; Referring Provider Internal Medicine Cardiovascular Disease; Visit Provider Internal Medicine Cardiovascular Disease
DX: I10 Essential (primary) hypertension (principal); D64.9 Anemia, unspecified; I21.4 Non-ST elevation (NSTEMI) myocardial infarction; R79.89 Other specified abnormal findings of blood chemistry
CPT/HCPCS: 93798

== ENCOUNTER → 2024-02-26 | Outpatient (CLI) | payer OTHER, SELFPAY ==
[2024-02-23 11:26] VITALS: BMI 31.8
[2024-02-26 11:06] LABS: Anion Gap 6 (5-15); BUN 10 mg/dL (7-18); BUN/Creat Ratio 16.1 RATIO (10-20); Calcium,Total 9.7 mg/dL (8.5-10.1); Chloride 106 mmol/L (98-107); Creatinine, Serum 0.62 mg/dL (0.55-1.02); EST Glomerular Filtration Rate 103 mL/min (>60); Est Glom Filt Rate - Afr Amer 125 mL/min (>60); Glucose 152 mg/dL (74-106); Potassium 4.2 mmol/L (3.5-5.1); Sodium Level 139 mmol/L (136-145)
== END | disposition home or self-care (01) ==
LOC: LAB 10:08
PROVIDERS: PCP Family Medicine; Referring Provider Physician Assistant Medical; Visit Provider Physician Assistant Medical
DX: I21.4 Non-ST elevation (NSTEMI) myocardial infarction (principal); I10 Essential (primary) hypertension; D64.9 Anemia, unspecified
CPT/HCPCS: 36415; 80048

== ENCOUNTER 2024-03-08 06:14 | Outpatient (RCR) | payer OTHER, SELFPAY ==
[2024-03-06 00:19] VITALS: BP 148/80
== END 2024-04-05 23:59 ==
LOC: CR 06:14
PROVIDERS: PCP Family Medicine; Referring Provider Internal Medicine Cardiovascular Disease; Visit Provider Internal Medicine Cardiovascular Disease
DX: I10 Essential (primary) hypertension (principal); D64.9 Anemia, unspecified; I21.4 Non-ST elevation (NSTEMI) myocardial infarction; R79.89 Other specified abnormal findings of blood chemistry

== ENCOUNTER 2024-03-10 20:18 | Emergency (ER) | payer OTHER, SELFPAY ==
[2024-03-10] VITALS (7 sets, daily range): BP systolic 147–177; BP diastolic 76–101; PULSE 105–122; RESP 18–20; TEMP 37.1; O2SAT 94–99; BMI 32.4
--- NOTE | 2024-03-10 20:37 | EKG12_ITS ---
Test Reason : CP Blood Pressure : */* mmHG Vent. Rate : 115 BPM Atrial Rate : 115 BPM P-R Int : 126 ms QRS Dur : 74 ms QT Int : 342 ms P-R-T Axes : 40 5 43 degrees QTcB Int : 473 ms Sinus tachycardia Nonspecific ST abnormality Abnormal ECG Confirmed by Brandon Cintron ([id number]), assignment editor BENY HARRISON ([id number]) on 03/11/2024 9:58:00 AM Referred By: Confirmed By: Brandon Cintron
--- NOTE | 2024-03-10 20:37 | RAD_ITS ---
EXAM: XR CHEST, 2 VIEWS CLINICAL INDICATION: chest pain TECHNIQUE: Frontal and lateral views of the chest. COMPARISON: 01/11/2024 FINDINGS: LUNGS AND PLEURAL SPACES: Unremarkable. No consolidation or edema. No pneumothorax. No effusion. HEART: Unremarkable. Cardiac silhouette not enlarged. MEDIASTINUM: Central airways and mediastinal contour are unremarkable. BONES/JOINTS: Unremarkable. No acute fracture. SOFT TISSUES: Unremarkable. TUBES, LINES AND DEVICES: Right-sided Port-A-Cath in stable position. RAD/Chest PA and Lateral IMPRESSION: No acute findings in the chest. Electronically Signed: Fabrizio Zhang MD at 21:32 EST ,
[2024-03-10] MEDS: 0.9% Normal Saline (1000mL) 1,000 ML 999 ML IV (20:44)
--- NOTE | 2024-03-10 20:49 | EDS_ITS ---
HPI <NICK Ku - Last Filed: 03/10/24 22:05> History of Present Illness Chief Complaint: Chest Pain Narrative Narrative: Patient is a 63-year-old female with history of rheumatoid arthritis, history of NSTEMI, presenting to the emergency department for cough, congestion, chest heaviness, tachycardia. Patient states that over the last month, she has been intermittently ill with different coughing. She does get her infusions for her RA every 6 weeks. Patient states that she is on a biologic and this does decrease her immune system. Patient states today, she felt flushed, she started having chest pressure palpitations and her heart rate was 161. Patient states that she got scared and called her sister, secondary to her heart rate not decreasing to normal and her recent NSTEMI she is here for evaluation. She does state to have a cough, congestion has been ongoing over the last several days. [facility] <NICK Ku - Last Filed: 03/10/24 22:05> [facility] Medical History (Updated 03/10/24 @ 22:05 by NICK Ku) Hypertension NSTEMI, initial episode of care Anemia Diabetes mellitus, type 2 Obesity (BMI 30.0-34.9) Hypothyroidism Diabetes Migraines Arthritis Asthma Rheumatoid arthritis Home Medications ?Medication ?Instructions ?Recorded ?Last Taken ?Type fluticasone fur. 100 mcg-umeclid 1 ea inhalation DAILY 01/11/24 Unknown History 62.5 mcg-vilant 25 mcg inhalat.powder (Trelegy Ellipta) folic acid 1 mg tablet 1 mg PO DAILY 01/11/24 Unknown History hydroxychloroquine 200 mg tablet 200 mg PO DAILY 01/11/24 Unknown History infliximab-abda 100 mg intravenous IV Q7W RA 01/11/24 11/03/23 History solution (Renflexis) ipratropium bromide 42 mcg (0.06 2 spray intranasal TID PRN sinus 01/11/24 Unknown History %) nasal spray symptoms levothyroxine 25 mcg tablet 25 mcg PO DAILY 01/11/24 Unknown History methotrexate sodium 2.5 mg tablet 20 mg PO QWEEK RA 01/11/24 01/07/24 History montelukast 10 mg tablet 10 mg PO DAILY 01/11/24 Unknown History tizanidine 2 mg tablet 2 - 6 mg PO QHS PRN PRN muscle 01/11/24 Unknown History spasticity albuterol sulfate 2.5 mg/3 mL 2.5 mg (3 mL) inhalation Q4H PRN 01/13/24 Unknown Rx (0.083 %) solution for nebulization PRN sob #180 mL albuterol sulfate 90 mcg/actuation 2 puff inhalation Q4H PRN 01/13/24 Unknown Rx aerosol inhaler shortness of breath or wheezing #8.5 grams atorvastatin 80 mg tablet 80 mg PO QHS 30 days #30 tabs 01/13/24 Unknown Rx clopidogrel 75 mg tablet 75 mg PO DAILY 30 days #30 tabs 01/13/24 Unknown Rx ferrous gluconate 240 mg (27 mg 240 mg PO DAILY 30 days #30 tabs 02/26/24 Unknown Rx iron) tablet (Ferate) metformin 500 mg tablet 1,000 mg PO QDAY 02/26/24 Unknown History metoprolol tartrate 50 mg tablet 50 mg PO BID #180 tabs 02/26/24 Unknown Rx spironolactone 25 mg tablet 25 mg PO DAILY #30 tabs 02/26/24 Unknown Rx Allergy/AdvReac Type Severity Reaction Status Date / Time meperidine (From Demerol) AdvReac HYPOTENSION Verified 03/10/24 20:19 Sulfa (Sulfonamide AdvReac Abd Verified 03/10/24 20:19 Antibiotics) cramps/diarrhea Surgical History History of appendectomy History of cholecystectomy Social History Smoking Status: Never smoker ROS <NICK Ku - Last Filed: 03/10/24 22:05> ROS ED ROS Narrative Constitutional: Negative for fever, chills, weight loss, weakness Eyes: Negative for vision loss, vision change, double vision ENT: Negative for any sore throat, ear pain, congestion Cardiovascular: Positive for chest tightness, palpitations Respiratory: Negative for any sputum production, hemoptysis, dyspnea on exertion, orthopnea. Positive for cough, dyspnea Gastrointestinal: Negative for any abdominal pain, nausea, vomiting, diarrhea, constipation, blood in stool, blood in vomit : Negative for any urinary frequency, dysuria, retention, blood in urine Muscle skeletal: Negative for any neck pain, back pain Neurological: Negative for any headache, syncope, dizziness Skin: Negative for any rashes, itching, abrasions, lacerations Psychiatric: Negative for any depression, anxiety, stress, suicidal ideation, homicidal ideation Hematologic: Negative for any excessive bruising, easy bleeding EXAM <NICK Ku - Last Filed: 03/10/24 22:05> Physical Exam Narrative Exam Narrative: Vital signs reviewed. Patient is in no obvious distress, patient is tachycardic at a rate of 122. HEET: Head normocephalic atraumatic, TMs clear bilaterally. Posterior pharynx is clear, moist mucous membranes. Nares clear bilaterally. Neck: Supple with no lymphadenopathy or tenderness. No signs of meningismus. Cardiac: Tachycardic rate no murmurs gallops or rubs, equal peripheral pulses bilaterally. Respiratory: Lungs have slight crackles to both bases.. No chest tenderness. Abdomen: Soft, nontender, nondistended. No abdominal bruit or pulsatile masses. No hepatosplenomegaly Extremities: No peripheral edema, no signs of gross trauma or deformity. Active full range of motion of all extremities. Neuro: Cranial nerves II through XII intact, no focal neurological deficits. Skin: Clean dry and intact with no rash, purpura, petechiae, vesicles or pustules. Backs/flank: No CVA tenderness, no midline spinal tenderness, no deformity. Psych: Normal mood and affect. No SI, HI or acute psychosis. Const Vital Signs: 03/10/24 20:18 03/10/24 20:32 03/10/24 20:32 Temperature 98.8 F Temperature Source Oral Pulse Rate 122 H Respiratory Rate 18 Respiratory Effort Normal Non-Labored Normal Non-Labored Respiratory Depth Normal Respiratory Pattern Normal Blood Pressure 177/101 H Blood Pressure Mean 126 Pulse Ox 98 Oxygen Delivery Method Room Air Room Air 03/10/24 20:47 03/10/24 21:18 03/10/24 21:21 Temperature 98.7 F Temperature Source Oral Pulse Rate 105 H 105 H Respiratory Rate 18 18 Respiratory Effort Respiratory Depth Respiratory Pattern Blood Pressure 149/82 H 149/82 H Blood Pressure Mean 104 104 Pulse Ox 98 98 Oxygen Delivery Method Room Air Room Air Room Air 03/10/24 22:00 03/10/24 23:00 03/10/24 23:25 Temperature 98.7 F 98.7 F 98.7 F Temperature Source Oral Oral Pulse Rate 107 H 112 H 111 H Respiratory Rate 19 H 20 H 20 H Respiratory Effort Respiratory Depth Respiratory Pattern Blood Pressure 147/76 H 166/83 H 166/86 H Blood Pressure Mean 99 110 112 Pulse Ox 99 94 94 Oxygen Delivery Method Room Air Room Air Positive well nourished and well developed General Appearance ED: well developed <Zurdo Polo MD - Last Filed: 03/10/24 23:54> Physical Exam Const Vital Signs: 03/10/24 20:18 03/10/24 20:32 03/10/24 20:32 Temperature 98.8 F Temperature Source Oral Pulse Rate 122 H Respiratory Rate 18 Respiratory Effort Normal Non-Labored Normal Non-Labored Respiratory Depth Normal Respiratory Pattern Normal Blood Pressure 177/101 H Blood Pressure Mean 126 Pulse Ox 98 Oxygen Delivery Method Room Air Room Air 03/10/24 20:47 03/10/24 21:18 03/10/24 21:21 Temperature 98.7 F Temperature Source Oral Pulse Rate 105 H 105 H Respiratory Rate 18 18 Respiratory Effort Respiratory Depth Respiratory Pattern Blood Pressure 149/82 H 149/82 H Blood Pressure Mean 104 104 Pulse Ox 98 98 Oxygen Delivery Method Room Air Room Air Room Air 03/10/24 22:00 03/10/24 23:00 03/10/24 23:25 Temperature 98.7 F 98.7 F 98.7 F Temperature Source Oral Oral Pulse Rate 107 H 112 H 111 H Respiratory Rate 19 H 20 H 20 H Respiratory Effort Respiratory Depth Respiratory Pattern Blood Pressure 147/76 H 166/83 H 166/86 H Blood Pressure Mean 99 110 112 Pulse Ox 99 94 94 Oxygen Delivery Method Room Air Room Air MDM <NICK Ku - Last Filed: 03/10/24 22:05> MDM Lab Data Labs: Laboratory Results - last 24 hr 03/10/24 03/10/24 20:45 23:17 WBC 10.8 RBC 4.22 Hgb 10.2 L Hct 33.5 L MCV 79.4 L MCH 24.2 L MCHC 30.4 L RDW Std Deviation 51.0 H RDW Coeff of Jeison 17.8 H Plt Count 311 MPV 9.3 Immature Gran % (Auto) 1.100 H Neut % (Auto) 74.1 H Lymph % (Auto) 14.8 L Stevens % (Auto) 8.6 Eos % (Auto) 1.1 Baso % (Auto) 0.3 Absolute Neuts (auto) 8.0 H Absolute Lymphs (auto) 1.59 Nucleated RBC % 0 Sodium 137 Potassium 3.4 L Chloride 103 Carbon Dioxide 26.0 Anion Gap 8 BUN 9 Creatinine 0.67 Estim Creat Clear Calc 84.43 Est GFR (MDRD) Af Amer 114 Est GFR (MDRD) Non-Af 94 BUN/Creatinine Ratio 13.4 Glucose 349 H Calcium 9.3 Troponin I High Sens 502 H* 508 H* Radiography Diagnostic Testing: Clinical Impression(s) from Imaging Studies Chest X-Ray 03/10/24 20:37 IMPRESSION: No acute findings in the chest. Electronically Signed: Fabrizio Zhang MD at 21:32 EST , Treatment and Re-Evaluation :: Differential diagnosis includes however is not limited to: Community-acquired pneumonia, COVID-19, influenza, RSV, PE, ACS, [place] Patient on my initial evaluation had a heart rate of 106, blood pressure 149/82, oxygen was 98% and in no obvious distress. Patient was nontoxic. Presenting to the emergency department with complaints of chest pressure, cough, tachycardia. Patient will receive a full cardiac workup including 2 view chest x-ray, troponin x 2, CBC, BMP, IV fluids. Patient was given COVID-19 influenza RSV swab. All radiologic examinations were read, reviewed by the emergency department attending. From these reads, a plan of care will be put in place. Patient's CBC shows a stable anemia with a hemoglobin of 10.2. Patient's chemistry showed potassium of 3.4 slightly low, glucose 249, patient's initial troponin was 502. Patient's viral swab was positive for COVID-19. At this time, I did look at the patient's past admission 1.5 months ago that was similar. Patient had a pneumonia with elevated troponins, this might be a type II like elevation secondary to demand. Patient's ejection fraction was 60%, cardiac cath showed no significant main artery occlusion, 40 to 50%. Some small artery disease. Patient received a second troponin. However patient will need to be admitted to the hospital. Chest x-ray was negative for any acute process. Patient is not hypoxic. EKG shows sinus tachycardia, no acute ST elevation. Patient will need to be admitted to the hospital. <Zurdo Polo MD - Last Filed: 03/10/24 23:54> [facility] Narrative Medical decision making narrative: Dr. Polo: I have personally performed a face to face assessment of the patient and have reviewed the PETER Note. I performed a substantive portion of the visit including all aspects of the following. My day findings include: History is chest pain, shortness of breath. Recent NSTEMI back in January of last year, few months ago. Exam is afebrile. Vital signs noted. Positive tachycardia. Lungs clear to auscultation bilaterally. Abdomen soft and nontender. Positive bowel sounds. Medical Decision Making: Comprehensive workup was pursued. EKG obtained and interpreted by myself independently as sinus tachycardia at 115 bpm without ect opy or acute ST changes. No STEMI. Patient bolused IV fluids and she is improved with her tachycardia. I reviewed her laboratory work and she has a white count of 10.8 normal, hemoglobin stable at 10.2 with platelet count 311. Potassium slightly low at 3.4 which I think is nonspecific, glucose of 349 but normal anion gap of 8 so I doubt diabetic ketoacidosis. Initial high- sensitivity troponin is 502. In review of prior laboratories it was high in the 500s when she had her NSTEMI. I reviewed the catheterization report and she may have had a right coronary artery lesion which was recannulated, but most of her coronary artery disease with small vessel disease. This could explain a type II elevation in her troponin. Her repeat troponin is 508 for no significant change. I did discuss the patient with Dr. Jimena Mantilla. As she is COVID- positive on her swab, she may have more of a hypercoagulable state and she remains tachycardic but is satting 94 to 98% on room air. She wanted the CTA of the chest to be performed to rule out pulmonary embolism as this could be cause of her chest pain, shortness of breath, and elevation in troponins as well. At this point in time, she was states that she will check out the results of the CTA, and discussed the patient with the oncoming physician, Dr. Osmani Marie at that time for final disposition which is anticipated admission regardless. Currently, patient is in stable condition. Other additions or changes: [None] History & Record Review Discussion w/independent historian: Patient Lab Data Attestation: I reviewed the patient's lab results. Labs: Laboratory Results - last 24 hr 03/10/24 03/10/24 20:45 23:17 WBC 10.8 RBC 4.22 Hgb 10.2 L Hct 33.5 L MCV 79.4 L MCH 24.2 L MCHC 30.4 L RDW Std Deviation 51.0 H RDW Coeff of Jeison 17.8 H Plt Count 311 MPV 9.3 Immature Gran % (Auto) 1.100 H Neut % (Auto) 74.1 H Lymph % (Auto) 14.8 L Stevens % (Auto) 8.6 Eos % (Auto) 1.1 Baso % (Auto) 0.3 Absolute Neuts (auto) 8.0 H Absolute Lymphs (auto) 1.59 Nucleated RBC % 0 Sodium 137 Potassium 3.4 L Chloride 103 Carbon Dioxide 26.0 Anion Gap 8 BUN 9 Creatinine 0.67 Estim Creat Clear Calc 84.43 Est GFR (MDRD) Af Amer 114 Est GFR (MDRD) Non-Af 94 BUN/Creatinine Ratio 13.4 Glucose 349 H Calcium 9.3 Troponin I High Sens 502 H* 508 H* Radiography Chest X-Ray - ED: Read by ED Physician and Read by Radiologist Diagnostic Testing: Clinical Impression(s) from Imaging Studies Chest X-Ray 03/10/24 20:37 IMPRESSION: No acute findings in the chest. Electronically Signed: Fabrizio Zhang MD at 21:32 EST , Discharge Plan Dx/Rx/DC Orders Clinical Impression: Cough, Shortness of breath, Elevated troponin, Tachycardia, COVID-19 Disposition Disposition: [facility] Care [facility]
[2024-03-10 21:02] LABS: Absolute Lymphocyte Count 1.59 X10^3/uL (0.83-4.51); Basophil# 0.03 X10^3/uL; Basophil% 0.3 % (0-1); Eosinophil# 0.12 X10^3/uL; Eosinophils% 1.1 % (0-5); Hematocrit 33.5 % (37-47); Hemoglobin 10.2 g/dL (12.0-15.0); Lymphocyte # 1.59 X10^3/ul (0.83-4.51); Lymphocyte % 14.8 % (19-41); Mean Corp Hgb Conc 30.4 g/dL (32-36); Mean Corpuscular Hgb 24.2 pg (27.0-32.0); Mean Corpuscular Volume 79.4 fL (81-99); Mean Platelet Vol. 9.3 fl (6.2-12.0); Monocyte# 0.93 X10^3/uL; Monocyte% 8.6 % (0-10); NRBC Flagged by Analyzer 0 % (0-5); Neutrophil # 7.98 X10^3/uL (2.7-7.7); Neutrophil % 74.1 % (47-70); Platelet Count 311 K/mm3 (150-450); RBC Distribution Width CV 17.8 % (11.6-14.6); Red Blood Count 4.22 M/mm3 (4.2-5.4); White Blood Count 10.8 K/mm3 (4.4-11.0)
[2024-03-10 21:22] LABS: Anion Gap 8 (5-15); BUN 9 mg/dL (7-18); BUN/Creat Ratio 13.4 RATIO (10-20); Calcium,Total 9.3 mg/dL (8.5-10.1); Chloride 103 mmol/L (98-107); Creatinine, Serum 0.67 mg/dL (0.55-1.02); EST Glomerular Filtration Rate 94 mL/min (>60); Est Glom Filt Rate - Afr Amer 114 mL/min (>60); Estimated Creatinine Clearance 84.43 ml/min; Glucose 349 mg/dL (74-106); Potassium 3.4 mmol/L (3.5-5.1); Sodium Level 137 mmol/L (136-145); Troponin-I HS (w/2H Reflex) 502 pg/mL (3.0-54.0)
[2024-03-10 22:57] LABS: Reflex Troponin-HS? (from REC) Y
[2024-03-10] MEDS: Acetaminophen 500 MG Tablet 1000 MG PO (23:32)
[2024-03-10 23:44] LABS: Troponin-I HS 508 pg/mL (3.0-54.0)
--- NOTE | 2024-03-10 23:50 | CT_ITS ---
STUDY: CTA CHEST REASON FOR EXAM: Female, 63 years old. tachycardia RADIATION DOSAGE (If Supplied By Facility): CTDIvol = ( 9.7 ) mGy, DLP = ( 496.85 ) mGycm TECHNIQUE: The examination was performed with the intravenous administration of IV 100mL Isovue-370. Post-processing of the angiographic images was performed, with multiplanar reformation and 3D reconstruction. Individualized dose optimization techniques were used for this CT. COMPARISON: Prior study dated: 02/09/2024 FINDINGS: PULMONARY ARTERIES: Normal enhancement of the main pulmonary artery and right and left pulmonary arteries. Normal enhancement of the bilateral peripheral pulmonary arteries. There is no demonstrated pulmonary embolism. AORTA: Normal thoracic aorta and visualized great vessels. There is no demonstrated aortic dissection. MEDIASTINUM: Enlarged heart. Small pericardial effusion. No mediastinal lymphadenopathy. Normal hilar regions. LUNGS/PLEURA: Normal visualized trachea and bronchi. Linear left basilar atelectasis. No consolidation. No pulmonary nodules. Normal pleura. No pneumothorax. CHEST WALL: Normal chest wall structures. Right chest wall port. UPPER ABDOMEN: Normal visualized upper abdomen. OSSEOUS STRUCTURES: No acute or suspicious osseous abnormality. Mild degenerative changes throughout the spine. CT/CTA Chest W/WO Contrast IMPRESSION: No pulmonary embolism. Prominent heart. Left basilar atelectasis. Electronically Signed: Bakari Jay MD at 1:02 [facility] ,
[2024-03-10] MEDS: tiZANidine HCl 2 MG Tablet 4 MG PO (23:57)
[2024-03-11 00:21] VITALS: BP 169/91; PULSE 112; RESP 20; TEMP 37.1; O2SAT 95
[2024-03-11 01:00] VITALS: BP 106/53; PULSE 101; RESP 18; TEMP 37.1; O2SAT 94
[2024-03-11 02:00] VITALS: BP 105/66; BP 150/66; PULSE 97; RESP 20; TEMP 36.9; O2SAT 95
[2024-03-11 03:00] VITALS: BP 113/65; PULSE 96; RESP 18; O2SAT 99
[2024-03-11 04:00] VITALS: BP 114/73; PULSE 93; RESP 19; O2SAT 92
[2024-03-11 04:16] LABS: Troponin-I HS 412 pg/mL (3.0-54.0)
[2024-03-11 04:26] VITALS: BP 114/73; PULSE 98; RESP 17; TEMP 36.6; O2SAT 93
== END 2024-03-11 08:30 | disposition home or self-care (01) ==
PROVIDERS: Emergency Medicine; Nurse Practitioner; Emergency Provider Emergency Medicine; PCP Family Medicine; Visit Provider Emergency Medicine
DX: U07.1 COVID-19 (principal); E11.9 Type 2 diabetes mellitus without complications; I25.10 Atherosclerotic heart disease of native coronary artery without angina pectoris; I10 Essential (primary) hypertension; I25.2 Old myocardial infarction; Z79.02 Long term (current) use of antithrombotics/antiplatelets; Z79.84 Long term (current) use of oral hypoglycemic drugs; Z79.899 Other long term (current) drug therapy
CPT/HCPCS: 36591; 71046; 71275; 80048; 84484; 85025; 87631; 93005; 96360; 96361; 99285; Q9967; A4216

== ENCOUNTER 2024-04-15 10:42 | Day surgery (SDC) | payer OTHER, SELFPAY ==
[2024-01-24 09:04] VITALS: BMI 31.8
--- NOTE | 2024-04-12 14:14 | PAT.ANESEVAL ---
Pre-Assessment Diagnosis/Proposed Procedure Planned Operative Procedure(s): EGD, COLONOSCOPY Anesthesia History Anesthesia History - correction officer supervisor: Anesthesia History - correction officer supervisor Hx Hospitalization No 04/12/24 13:46 Any Problems With Anesthesia No 04/12/24 13:46 Cholinesterase deficiency No 04/12/24 13:46 You/Your Family Experience No 04/12/24 13:46 fever (hyperthermia) with Relationship Recent Exposure to Contagious Disease Does patient have nerve No 04/12/24 13:46 stimulator Patient instructed to have device shut off --Does patient have Pacemaker or ICD? When Was Last Pacemaker Check QUESTION #4 FULL TEXT: You/Your Family Experience fever (hyperthermia) with Anesthesia Last Oral Intake Last Oral intake: Last Oral Intake NPO since Meds taken in AM with sips of water? Meds patient instructed to take am of surgery PONV PONV - correction officer supervisor: PONV - correction officer supervisor Female Yes 04/12/24 13:46 HX of Motion Sickness No 04/12/24 13:46 HX of N/V After Surgery No 04/12/24 13:46 Non-Smoker Yes 04/12/24 13:46 Duration of Surgery greater No 04/12/24 13:46 than 60 minutes Number of Risk Factors 2 04/12/24 13:46 PONV Score Moderate Risk 04/12/24 13:46 Height & Weight Height & Weight: Anesthesia: Height & Weight Height 5 ft 2 in 03/10/24 20:18 Respiratory Assessment Respiratory Assessment - correction officer supervisor: Respiratory Tract Infection Hx - correction officer supervisor Hx Respiratory Tract Infection No 04/12/24 13:46 STOP Sleep Apnea STOP Sleep Apnea - correction officer supervisor: STOP Sleep Apnea - correction officer supervisor Hx Hypertension Yes 04/12/24 13:46 Hx Sleep Apnea No 04/12/24 13:46 CPAP BIPAP Do you snore loudly (louder No 04/12/24 13:46 than talking or can be heard Do you often feel tired/ No 04/12/24 13:46 fatigued/ sleepy during daytime? Has anyone observed you stop No 04/12/24 13:46 breathing during sleep? STOP Results Negative 04/12/24 13:46 QUESTION #5 FULL TEXT : Do you snore loudly (louder than talking or can be heard through closed doors)? Tobacco Use History Tobacco Use History - correction officer supervisor: Tobacco Use History - correction officer supervisor Tobacco Use Smoking Status Never smoker 04/12/24 13:46 Hx Tobacco Use No 04/12/24 13:46 Years Smoking Packs Smoked per Day Smoking Cessation Date was within the last 15 years Hx Smoking Cessation Date Hx Smoking Cessation Counseling Hematologic Medial History Hematologic Hx - correction officer supervisor: Hematologic Medical Hx - baker bench Hx of Blood Transfusion No 04/12/24 13:46 Hx of Transfusion in last 3 No 04/12/24 13:46 Months Date of Last Transfusion (if within last 3 months) Ever experience any problems No 04/12/24 13:46 with transfusion(s)? Specify any problems Hx of Preganancy in last 3 No 04/12/24 13:46 Months Nurse Filling Out Transfusion VLEHMAN 04/12/24 13:46 & Questions: Date: 04/12/24 04/12/24 13:46 Time: 13:55 04/12/24 13:46 Patient unable to answer at this time (ie. confused, unrespo /Reproduction History /Reproductive History - correction officer supervisor: /Reproductive Hx- correction officer supervisor Hx Now Gestational Age (in weeks): EDC: Hx Hx Para Hx [facility] Medical History (Updated 04/12/24 @ 13:54 by Yarelis Hooper) Wears partial dentures Wears glasses Thyroid disease Rheumatoid arthritis High cholesterol Dietary restriction History of rheumatic fever Non-smoker History of echocardiogram Cardiology follow-up encounter Anemia Hypothyroidism Diabetes Migraines Hypertension Arthritis Asthma Diabetes mellitus, type 2 Obesity (BMI 30.0-34.9) NSTEMI, initial episode of care Rheumatoid arthritis Home Medications ?Medication ?Instructions ?Recorded ?Last Taken ?Type folic acid 1 mg tablet 1 mg PO DAILY 01/11/24 Unknown History hydroxychloroquine 200 mg tablet 200 mg PO DAILY 01/11/24 Unknown History infliximab-abda 100 mg intravenous IV .Q6W RA 01/11/24 11/03/23 History solution (Renflexis) ipratropium bromide 42 mcg (0.06 2 spray intranasal TID PRN sinus 01/11/24 Unknown History %) nasal spray symptoms levothyroxine 25 mcg tablet 25 mcg PO DAILY 01/11/24 Unknown History methotrexate sodium 2.5 mg tablet 20 mg PO QWEEK RA 01/11/24 01/07/24 History montelukast 10 mg tablet 10 mg PO DAILY 01/11/24 Unknown History tizanidine 2 mg tablet 2 - 6 mg PO QHS PRN PRN muscle 01/11/24 Unknown History spasticity albuterol sulfate 2.5 mg/3 mL 2.5 mg (3 mL) inhalation Q4H PRN 01/13/24 Unknown Rx (0.083 %) solution for nebulization PRN sob #180 mL albuterol sulfate 90 mcg/actuation 2 puff inhalation Q4H PRN 01/13/24 Unknown Rx aerosol inhaler shortness of breath or wheezing #8.5 grams atorvastatin 80 mg tablet 80 mg PO QHS 30 days #30 tabs 01/13/24 Unknown Rx clopidogrel 75 mg tablet 75 mg PO DAILY 30 days #30 tabs 01/13/24 Unknown Rx metformin 500 mg tablet 1,000 mg PO QDAY 02/26/24 Unknown History metoprolol tartrate 50 mg tablet 50 mg PO BID #180 tabs 02/26/24 Unknown Rx spironolactone 25 mg tablet 25 mg PO DAILY #30 tabs 02/26/24 Unknown Rx amlodipine 5 mg tablet 5 mg PO 1400 04/12/24 Unknown History hydralazine 25 mg tablet 25 mg PO TID 04/12/24 Unknown History Allergy/AdvReac Type Severity Reaction Status Date / Time meperidine (From Demerol) AdvReac HYPOTENSION Verified 04/12/24 13:41 Sulfa (Sulfonamide AdvReac Abd Verified 04/12/24 13:41 Antibiotics) cramps/diarrhea Surgical History (Updated 04/12/24 @ 13:54 by Yarelis Hooper) History of cardiac catheterization History of laparoscopy History of tonsillectomy History of hysterectomy History of History of appendectomy History of cholecystectomy Social History Smoking Status: Never smoker Audit: Pertinent Findings Pertinent Findings EKG Perinent findings: 03/10/2024 sinus tachycardia [address] abnormality Echo (EF%) pertinent findings: 01/11/2024 ejection fraction 60% Consult pertinent findings: Cardiology 02/26/2024 moderate coronary artery disease status post non-STEMI currently stable in cardiac rehab currently stable in cardiac rehab hypertension chronic and stable Recommendation Anesthesia Recommendation Anesthesia recommendation: OPTIMIZED for anesthesia
--- NOTE | 2024-04-15 | IMM_PTH ---
PATIENT: JAYLIN MONTIEL LOC: EN U#:[id number] AGE/SX: 63/F ROOM: RE04/15/[address]: Dr. Ken Xie DO : 1960 BED: DIS: 04/15/2024 SPEC #: [id number] RECD: 04/15/24 15:09 STATUS: SYLVAIN REJoey #: [id number] KELY: 04/15/24 00:[address]: Ken Xie DEPT: IMMUNOHISTOCHEMISTRY RECD BY: Tejinder Vela ENTERED: 04/15/24 15:10 SP TYPE: IMMUNO OTHR DR: Paul Huston MD Tissues: B - Pyloric sphincter Procedures: H Pylori (initial) PHYSICIAN & INSTITUTION [place] [id number] SPECIMEN INFORMATION: Tissue Source: B- Pyloric sphincter biopsy Clinical Info: Anemia Specimen Number: [id number] CPT code: 66775 METHODOLOGY: Deparaffinized sections of prefer/formalin-fixed tissue or PAP/DQ stained slides are incubated with monoclonal/polyclonal antibodies/oligonucleotide probes. Localization is made via biotin free immunoperoxidase method. Appropriate controls are performed and reacted as expected. Results on target cell population are indicated in the following table: RESULTS: ANTIBODY / CLONE RESULT Block B H Pylori (polyclonal) negative These tests were developed and their performance characteristics determined by [facility]. They may not have been cleared or approved by the [place]. Food and Drug Administration. The FDA has determined that such clearance or approval is not necessary. The above immunohistochemical/dualISH markers are ordered and reviewed by the Pathologist. INTERPRETATION: B. Pyloric sphincter, biopsy: Negative for Helicobacter pylori organisms. SJ. armstrong 04/16/2024
[2024-04-15 11:04] VITALS: BP 142/89; PULSE 91; RESP 16; TEMP 36.8; O2SAT 98; BMI 30.6
--- NOTE | 2024-04-15 11:14 | PCM.PRE.AN2 ---
ASA Classification* ASA Classification ASA Classification: 2 Assessment & Plan Anesthesia* Anesthesia Assessment Anesthesia Assessment: Discussed sedation and/or anesthesia options, risks, benefits, and alternatives with patient/parents/legal guardian/POA. Questions invited. The patient/parents/legal guardian/POA seems to understand and agrees to proceed with anesthesia plan. Reviewed the physical assessment, medical history, allergy history and patient home medications list prior to surgery/procedure/anesthetic and documented any changes. Performed airway and anesthesia risk assessments. Anesthesia Type Anesthesia Type: MAC Anesthesia Focused Assessment* Airway Assessment Mouth opens: >3 cm Mallampati Score: II Focused Labs Anesthesia Preop lab: CBC WBC 10.8 K/mm3 (4.4-11.0) 03/10/24 20:45 03/10/24 RBC 4.22 M/mm3 (4.2-5.4) 03/10/24 20:45 03/10/24 Hgb 10.2 g/dL (12.0-15.0) L 03/10/24 20:45 03/10/24 Hct 33.5 % (37-47) L 03/10/24 20:45 03/10/24 Plt Count 311 K/mm3 (150-450) 03/10/24 20:45 03/10/24 CHEMISTRY Potassium 3.4 mmol/L (3.5-5.1) L 03/10/24 20:45 03/10/24 Sodium 137 mmol/L (136-145) 03/10/24 20:45 03/10/24 Magnesium 1.8 mg/dL (1.6-2.6) 01/13/24 06:03 01/13/24 Phosphorus 2.8 mg/dL (2.5-4.9) 01/13/24 06:03 01/13/24 BUN 9 mg/dL (7-18) 03/10/24 20:45 03/10/24 Creatinine 0.67 mg/dL (0.55-1.02) 03/10/24 20:45 03/10/24 Glucose 349 mg/dL (74-106) H 03/10/24 20:45 03/10/24 POC Glucose 203 mg/dL (74-106) H 01/13/24 11:49 01/13/24 TSH 1.820 uIU/mL (0.358-3.740) 02/09/24 10:32 02/09/24 COAG PT 13.9 SECONDS (11.7-14.9) 02/09/24 17:05 02/09/24 Pre-Assessment Diagnosis/Proposed Procedure Planned Operative Procedure(s): EGD, COLONOSCOPY Anesthesia History Anesthesia History - assistant product manager: Anesthesia History - assistant product manager Hx Hospitalization No 04/12/24 13:46 Any Problems With Anesthesia No 04/12/24 13:46 Cholinesterase deficiency No 04/12/24 13:46 You/Your Family Experience No 04/12/24 13:46 fever (hyperthermia) with Relationship Recent Exposure to Contagious Disease Does patient have nerve No 04/12/24 13:46 stimulator Patient instructed to have device shut off --Does patient have Pacemaker or ICD? When Was Last Pacemaker Check QUESTION #4 FULL TEXT: You/Your Family Experience fever (hyperthermia) with Anesthesia Last Oral Intake Last Oral intake: Last Oral Intake NPO since Meds taken in AM with sips of water? Meds patient instructed to take am of surgery PONV PONV - assistant product manager: PONV - assistant product manager Female Yes 04/12/24 13:46 HX of Motion Sickness No 04/12/24 13:46 HX of N/V After Surgery No 04/12/24 13:46 Non-Smoker Yes 04/12/24 13:46 Duration of Surgery greater No 04/12/24 13:46 than 60 minutes Number of Risk Factors 2 04/12/24 13:46 PONV Score Moderate Risk 04/12/24 13:46 Height & Weight Height & Weight: Anesthesia: Height & Weight Height 5 ft 2 in 03/10/24 20:18 Respiratory Assessment Respiratory Assessment - assistant product manager: Respiratory Tract Infection Hx - assistant product manager Hx Respiratory Tract Infection No 04/12/24 13:46 STOP Sleep Apnea STOP Sleep Apnea - assistant product manager: STOP Sleep Apnea - assistant product manager Hx Hypertension Yes 04/12/24 13:46 Hx Sleep Apnea No 04/12/24 13:46 CPAP BIPAP Do you snore loudly (louder No 04/12/24 13:46 than talking or can be heard Do you often feel tired/ No 04/12/24 13:46 fatigued/ sleepy during daytime? Has anyone observed you stop No 04/12/24 13:46 breathing during sleep? STOP Results Negative 04/12/24 13:46 QUESTION #5 FULL TEXT : Do you snore loudly (louder than talking or can be heard through closed doors)? Tobacco Use History Tobacco Use History - assistant product manager: Tobacco Use History - assistant product manager Tobacco Use Smoking Status Never smoker 04/12/24 13:46 Hx Tobacco Use No 04/12/24 13:46 Years Smoking Packs Smoked per Day Smoking Cessation Date was within the last 15 years Hx Smoking Cessation Date Hx Smoking Cessation Counseling Hematologic Medial History Hematologic Hx - assistant product manager: Hematologic Medical Hx - child development specialist Hx of Blood Transfusion No 04/12/24 13:46 Hx of Transfusion in last 3 No 04/12/24 13:46 Months Date of Last Transfusion (if within last 3 months) Ever experience any problems No 04/12/24 13:46 with transfusion(s)? Specify any problems Hx of Preganancy in last 3 No 04/12/24 13:46 Months Nurse Filling Out Transfusion [facility] 04/12/24 13:46 & Questions: Date: 04/12/24 04/12/24 13:46 Time: 13:55 04/12/24 13:46 Patient unable to answer at this time (ie. confused, unrespo /Reproduction History /Reproductive History - assistant product manager: /Reproductive Hx- assistant product manager Hx Now Gestational Age (in weeks): EDC: Hx Hx Para Hx Section [facility] Medical History Wears partial dentures Wears glasses Thyroid disease Rheumatoid arthritis High cholesterol Dietary restriction History of rheumatic fever Non-smoker History of echocardiogram Cardiology follow-up encounter Anemia Hypothyroidism Diabetes Migraines Hypertension Arthritis Asthma Diabetes mellitus, type 2 Obesity (BMI 30.0-34.9) NSTEMI, initial episode of care Rheumatoid arthritis Home Medications ?Medication ?Instructions ?Recorded ?Last Taken ?Type folic acid 1 mg tablet 1 mg PO DAILY 01/11/24 Unknown History hydroxychloroquine 200 mg tablet 200 mg PO DAILY 01/11/24 Unknown History infliximab-abda 100 mg intravenous IV .Q6W RA 01/11/24 11/03/23 History solution (Renflexis) ipratropium bromide 42 mcg (0.06 2 spray intranasal TID PRN sinus 01/11/24 Unknown History %) nasal spray symptoms levothyroxine 25 mcg tablet 25 mcg PO DAILY 01/11/24 Unknown History methotrexate sodium 2.5 mg tablet 20 mg PO QWEEK RA 01/11/24 01/07/24 History montelukast 10 mg tablet 10 mg PO DAILY 01/11/24 Unknown History tizanidine 2 mg tablet 2 - 6 mg PO QHS PRN PRN muscle 01/11/24 Unknown History spasticity albuterol sulfate 2.5 mg/3 mL 2.5 mg (3 mL) inhalation Q4H PRN 01/13/24 Unknown Rx (0.083 %) solution for nebulization PRN sob #180 mL albuterol sulfate 90 mcg/actuation 2 puff inhalation Q4H PRN 01/13/24 Unknown Rx aerosol inhaler shortness of breath or wheezing #8.5 grams atorvastatin 80 mg tablet 80 mg PO QHS 30 days #30 tabs 01/13/24 Unknown Rx clopidogrel 75 mg tablet 75 mg PO DAILY 30 days #30 tabs 01/13/24 04/10/24 Rx metformin 500 mg tablet 1,000 mg PO QDAY 02/26/24 Unknown History metoprolol tartrate 50 mg tablet 50 mg PO BID #180 tabs 02/26/24 04/15/24 Rx spironolactone 25 mg tablet 25 mg PO DAILY #30 tabs 02/26/24 Unknown Rx amlodipine 5 mg tablet 5 mg PO 1400 04/12/24 04/14/24 History hydralazine 25 mg tablet 25 mg PO TID 04/12/24 04/15/24 History Allergy/AdvReac Type Severity Reaction Status Date / Time meperidine (From Demerol) AdvReac HYPOTENSION Verified 04/12/24 13:41 Sulfa (Sulfonamide AdvReac Abd Verified 04/12/24 13:41 Antibiotics) cramps/diarrhea Surgical History History of cardiac catheterization History of laparoscopy History of tonsillectomy History of hysterectomy History of History of appendectomy History of cholecystectomy Social History Smoking Status: Never smoker Review of Systems (Anesthesia) ROS Narrative System reviewed and no additional complaints, except as documented.
[2024-04-15 11:34] LABS: Bedside Glucose 122 mg/dL (74-106)
--- NOTE | 2024-04-15 11:50 | PCM.HP.STD ---
HPI - General General Date of Admission: 04/15/24 Date of Service: 04/15/24 HPI Narrative JAYLIN MONTIEL, is a 63 F who presents for the endoscopic evaluation of her iron deficiency anemia. Pt was recently admitted to [facility] 01.11.24-01.13.24 after being diagnosed with PNA and an AL. She underwent cardiac catheterization during her stay. She was also found to be anemic with a hemoglobin as low as 7.9. She has never had this issue before and gets regular blood work on biologic for RA. Stool tests were negative for blood. She has not had any visible blood in her stool. She denies abdominal pain, n/v, heartburn, constipation, diarrhea or melena. Her last colonoscopy was in 2014 and she has never had an upper scope. Hemoglobin from 01.31.24 was 11.7. She was referred to us for further evaluation. [facility] Medical History Wears partial dentures Wears glasses Thyroid disease Rheumatoid arthritis High cholesterol Dietary restriction History of rheumatic fever Non-smoker History of echocardiogram Cardiology follow-up encounter Anemia Hypothyroidism Diabetes Migraines Hypertension Arthritis Asthma Diabetes mellitus, type 2 Obesity (BMI 30.0-34.9) NSTEMI, initial episode of care Rheumatoid arthritis Home Medications ?Medication ?Instructions ?Recorded ?Last Taken ?Type folic acid 1 mg tablet 1 mg PO DAILY 01/11/24 Unknown History hydroxychloroquine 200 mg tablet 200 mg PO DAILY 01/11/24 Unknown History infliximab-abda 100 mg intravenous IV .Q6W RA 01/11/24 11/03/23 History solution (Renflexis) ipratropium bromide 42 mcg (0.06 2 spray intranasal TID PRN sinus 01/11/24 Unknown History %) nasal spray symptoms levothyroxine 25 mcg tablet 25 mcg PO DAILY 01/11/24 Unknown History methotrexate sodium 2.5 mg tablet 20 mg PO QWEEK RA 01/11/24 01/07/24 History montelukast 10 mg tablet 10 mg PO DAILY 01/11/24 Unknown History tizanidine 2 mg tablet 2 - 6 mg PO QHS PRN PRN muscle 01/11/24 Unknown History spasticity albuterol sulfate 2.5 mg/3 mL 2.5 mg (3 mL) inhalation Q4H PRN 01/13/24 Unknown Rx (0.083 %) solution for nebulization PRN sob #180 mL albuterol sulfate 90 mcg/actuation 2 puff inhalation Q4H PRN 01/13/24 Unknown Rx aerosol inhaler shortness of breath or wheezing #8.5 grams atorvastatin 80 mg tablet 80 mg PO QHS 30 days #30 tabs 01/13/24 Unknown Rx clopidogrel 75 mg tablet 75 mg PO DAILY 30 days #30 tabs 01/13/24 04/10/24 Rx metformin 500 mg tablet 1,000 mg PO QDAY 02/26/24 Unknown History metoprolol tartrate 50 mg tablet 50 mg PO BID #180 tabs 02/26/24 04/15/24 Rx spironolactone 25 mg tablet 25 mg PO DAILY #30 tabs 02/26/24 Unknown Rx amlodipine 5 mg tablet 5 mg PO 1400 04/12/24 04/14/24 History hydralazine 25 mg tablet 25 mg PO TID 04/12/24 04/15/24 History Allergy/AdvReac Type Severity Reaction Status Date / Time meperidine (From Demerol) AdvReac HYPOTENSION Verified 04/12/24 13:41 Sulfa (Sulfonamide AdvReac Abd Verified 04/12/24 13:41 Antibiotics) cramps/diarrhea Surgical History History of cardiac catheterization History of laparoscopy History of tonsillectomy History of hysterectomy History of History of appendectomy History of cholecystectomy Social History Smoking Status: Never smoker ROS Constitutional Constitutional: Denies fatigue, fever(s), poor appetite, weight gain or weight loss Gastrointestinal Gastrointestinal: Denies belching, bloating, change in bowel habits, change in stool character, chewing difficulty, coffee ground emesis, constipation, cramping, diarrhea, dyspepsia, dysphagia, early satiety, excessive flatus, fecal incontinence, heartburn, hematemesis, hematochezia, hemorrhoids, loose stools, melena, nausea, odynophagia, rectal bleeding, tenesmus, vomiting or weight changes Vital Signs Vital Signs Vital Signs: 04/15/24 11:04 04/15/24 11:04 Temperature 98.2 F Temperature Source Temporal Pulse Rate 91 Respiratory Rate 16 Respiratory Pattern Normal Blood Pressure 142/89 H Blood Pressure Mean 106 Blood Pressure Source Monitor Blood Pressure Position Sitting Blood Pressure Location Left Arm Pulse Ox 98 Oxygen Delivery Method Room Air Weight Weight: 167 lb 8.821 oz Body Mass Index (BMI) 30.6 Physical Exam Const alert, oriented x3, no apparent distress and healthy appearing General Appearance: cooperative GI normal to inspection, nondistended, normoactive bowel sounds, soft to palpation, non-tender and non-distended Percussion: normal to percussion Rectal Exam: deferred Results Lab / Micro Data Labs: Laboratory Results - last 24 hr 04/15/24 11:12: POC Glucose 122 H Assessment & Plan Assessment/Plan (1) Anemia: PLAN: Affect: normal affect Assessment and Plan Assessment and Plan (1) Anemia: Status: Acute Plan: This is a 63 yo female pt here today for anemia. Pt was recently in the hospital at [facility] for PNA and AL. At that time she was found to be anemic with a Hgb as low as 7.9, MCV 79.1, iron 11, TIBC 163, ferritin 290. Since then her hemoglobin has increased to 11.7. Her last colonoscopy was in 2014. She will undergo upper and lower scope to rule out bleeding in the GI tract. She is agreeable to this plan. Cardiac clearance will be obtained prior to procedure. She has no obvious signs or symptoms of bleeding at this time. -Colonosscopy -EGD
--- NOTE | 2024-04-15 12:00 | COLBX_PTH ---
PATIENT: JAYLIN MONTIEL LOC: EN U#:[id number] AGE/SX: 63/F ROOM: RE04/15/[address]: Dr. Ken Xie DO : 1960 BED: DIS: 04/15/2024 SPEC #: [id number] RECD: 04/15/24 13:53 STATUS: SYLVAIN TERRAZAS #: [id number] KELY: 04/15/24 12:[address]: Ken Xie DEPT: SURGICAL PATHOLOGY RECD BY: Thanh Willett ENTERED: 04/15/24 14:25 SP TYPE: COLON BX OTHR DR: Paul Huston MD Tissues: A - Duodenum, NOS B - Pyloric sphincter C - Transverse colon Procedures: Surgery Specimen Level IV HEADER OPERATION: Colonoscopy, EGD and biopsy PRE-OP DIAGNOSIS: Anemia TISSUE SUBMITTED: A- Duodenum biopsy, B- Pyloric sphincter biopsy, C- Transverse colon polyp MICROSCOPIC DIAGNOSIS A. Duodenum, biopsy: Fragments of duodenal mucosa with mild non-specific chronic inflammation. B. Pyloric sphincter, biopsy: Mild gastritis. See microscopic description and comment. C. Transverse colon polyp, biopsy: Fragments on inflammatory polyp. 04/16/2024 COMMENT B. The results of immunohistochemistry for Helicobacter pylori will be reported separately ([id number]). MICROSCOPIC DESCRIPTION Slides are reviewed. B. The specimen shows fragments of gastric mucosa with chronic inflammatory cell infiltrates in the lamina propria consisting of lymphocytes and plasma cells, consistent with mild chronic gastritis. GROSS DESCRIPTION A. Received in fixative is one container labeled with the patient's name and designated Duodenum biopsy. The specimen consists of two irregular fragments of light villareal soft tissue that in aggregate measure 0.8 x 0.4 x 0.1 cm. The specimen is totally submitted in one cassette. B. Received in fixative is one container labeled with the patient's name and designated Pyloric sphincter biopsy. The specimen consists of one irregular fragment of light villareal soft tissue that measures 0.5 x 0.4 x 0.1 cm. The specimen is totally submitted in one cassette. C. Received in fixative is one container labeled with the patient's name and designated Transverse colon polyp. The specimen consists of multiple irregular fragments of light villareal soft tissue that in aggregate measure 0.9 x 0.4 x 0.1 cm. The specimen is totally submitted in one cassette. MS/mr 04/15/2024 TC:3 CPT:[id number]
--- NOTE | 2024-04-15 12:53 | OP.EGD_ITS ---
Patient Name: Lisette Carroll Procedure Date: 04/15/2024 12:23 PM Date of : 1960 Age: 63 Procedure: Upper GI endoscopy Indications: Iron deficiency anemia Providers: Ken Xie DO Medicines: Monitored Anesthesia Care Patient Profile: This is a 63 year old female. Refer to note in patient chart for documentation of history and physical. Patient has symptoms. Complications: No immediate complications. Procedure: Pre-Anesthesia Assessment: - Prior to the procedure, a History and Physical was performed, and patient medications and allergies were reviewed. The patient is competent. The risks and benefits of the procedure and the sedation options and risks were discussed with the patient. All questions were answered and informed consent was obtained. Patient identification and proposed procedure were verified by the physician. Mental Status Examination: alert and oriented. Airway Examination: normal oropharyngeal airway and neck mobility. Respiratory Examination: clear to auscultation. CV Examination: normal. Prophylactic Antibiotics: The patient does not require prophylactic antibiotics. Prior Anticoagulants: The patient has taken no anticoagulant or antiplatelet agents except for NSAID medication. ASA Grade Assessment: II - A patient with mild systemic disease. After reviewing the risks and benefits, the patient was deemed in satisfactory condition to undergo the procedure. The anesthesia plan was to use monitored anesthesia care (MAC). Immediately prior to administration of medications, the patient was re-assessed for adequacy to receive sedatives. The heart rate, respiratory rate, oxygen saturations, blood pressure, adequacy of pulmonary ventilation, and response to care were monitored throughout the procedure. The physical status of the patient was re-assessed after the procedure. After obtaining informed consent, the endoscope was passed under direct vision. Throughout the procedure, the patient's blood pressure, pulse, and oxygen saturations were monitored continuously. The Colonoscope was introduced through the mouth, and advanced to the second part of duodenum. The upper GI endoscopy was accomplished without difficulty. The patient tolerated the procedure well. Scope In: 12:29:50 PM Scope Out: 12:32:57 PM Total Procedure Duration Time 0 hours 3 minutes 7 seconds Findings: The examined esophagus was normal. Patchy mildly erythematous mucosa without bleeding was found in the gastric body. Biopsies were taken with a cold forceps for histology. Biopsies were taken with a cold forceps for Helicobacter pylori testing. Verification of patient identification for the specimen was done. Estimated blood loss was minimal. No gross lesions were noted in the second portion of the duodenum. Biopsies were taken with a cold forceps for histology. Verification of patient identification for the specimen was done. Estimated blood loss was minimal. Impression: - Normal esophagus. - Erythematous mucosa in the gastric body. Biopsied. - No gross lesions in the second portion of the duodenum. Biopsied. Recommendation: - Discharge patient to home. - Resume previous diet. - Continue present medications. Procedure Code(s): --- Professional --- 85350, Esophagogastroduodenoscopy, flexible, transoral; with biopsy, single or multiple CPT copyright 2021 [employer]. All rights reserved. The codes documented in this report are preliminary and upon auditing coder review may be revised to meet current compliance requirements. Ken Xie DO 04/15/2024 12:52:57 PM This report has been signed electronically. Number of Addenda: 0 Note Initiated On: 04/15/2024 12:23 PM
--- NOTE | 2024-04-15 12:53 | OP.CCLET_ITS ---
04/15/2024 Paul Huston Md Re : Upper GI endoscopy procedure for Lisette Carroll Dear Robel This procedure was performed on Monday, April 15, 2024. My impressions and recommendations are as follows: Impressions : - Normal esophagus. - Erythematous mucosa in the gastric body. Biopsied. - No gross lesions in the second portion of the duodenum. Biopsied. Recommendations : - Discharge patient to home. - Resume previous diet. - Continue present medications. My findings are described in the full procedure note, which is enclosed. If I can be of further assistance, please feel free to contact me at . Sincerely, Ken Xie, 04/15/2024 12:52:57 PM This report has been signed electronically.
[2024-04-15 12:55] VITALS: BP 103/68; BP 142/89; PULSE 89; RESP 14; TEMP 36.2; O2SAT 95
--- NOTE | 2024-04-15 12:56 | OP.CCLET_ITS ---
04/15/2024 Paul Huston Md Re : Colonoscopy procedure for Lisette Carroll Dear Robel This procedure was performed on Monday, April 15, 2024. My impressions and recommendations are as follows: Impressions : - One 8 mm polyp in the transverse colon, removed with a jumbo cold forceps. Resected and retrieved. - Diverticulosis in the sigmoid colon. - The examined portion of the ileum was normal. - The examination was otherwise normal on direct and retroflexion views. Recommendations : - Discharge patient to home. - Resume previous diet. - Continue present medications. - Await pathology results. - Repeat colonoscopy in 5 years for surveillance. My findings are described in the full procedure note, which is enclosed. If I can be of further assistance, please feel free to contact me at . Sincerely, Ken Xie, 04/15/2024 12:55:42 PM This report has been signed electronically.
--- NOTE | 2024-04-15 12:56 | OP.COLON_ITS ---
Patient Name: Lisette Carroll Procedure Date: 04/15/2024 12:34 PM Date of : 1960 Age: 63 Procedure: Colonoscopy Indications: Iron deficiency anemia Providers: Ken Xie DO Medicines: Propofol per Anesthesia Patient Profile: This is a 63 year old female. Refer to note in patient chart for documentation of history and physical. Patient has symptoms. Last Colonoscopy: 5 years ago. Complications: No immediate complications. Procedure: Pre-Anesthesia Assessment: - Prior to the procedure, a History and Physical was performed, and patient medications and allergies were reviewed. The patient is competent. The risks and benefits of the procedure and the sedation options and risks were discussed with the patient. All questions were answered and informed consent was obtained. Patient identification and proposed procedure were verified by the physician. Mental Status Examination: alert and oriented. Airway Examination: normal oropharyngeal airway and neck mobility. Respiratory Examination: clear to auscultation. CV Examination: normal. Prophylactic Antibiotics: The patient does not require prophylactic antibiotics. Prior Anticoagulants: The patient has taken no anticoagulant or antiplatelet agents except for NSAID medication. ASA Grade Assessment: II - A patient with mild systemic disease. After reviewing the risks and benefits, the patient was deemed in satisfactory condition to undergo the procedure. The anesthesia plan was to use monitored anesthesia care (MAC). Immediately prior to administration of medications, the patient was re-assessed for adequacy to receive sedatives. The heart rate, respiratory rate, oxygen saturations, blood pressure, adequacy of pulmonary ventilation, and response to care were monitored throughout the procedure. The physical status of the patient was re-assessed after the procedure. After I obtained informed consent, the scope was passed under direct vision. Throughout the procedure, the patient's blood pressure, pulse, and oxygen saturations were monitored continuously. The Colonoscope was introduced through the anus and advanced to the terminal ileum. The colonoscopy was performed without difficulty. The patient tolerated the procedure well. The quality of the bowel preparation was adequate. The terminal ileum, ileocecal valve, appendiceal orifice, and rectum were photographed. Scope In: 12:34:23 PM Scope Withdrawal Time 0 hours 6 minutes 50 seconds Scope Out: 12:48:53 PM Total Procedure Duration Time 0 hours 14 minutes 30 seconds Findings: The perianal and digital rectal examinations were normal. An 8 mm polyp was found in the transverse colon. The polyp was sessile. The polyp was removed with a jumbo cold forceps. Resection and retrieval were complete. Verification of patient identification for the specimen was done. Estimated blood loss was minimal. A few small-mouthed diverticula were found in the sigmoid colon. The terminal ileum appeared normal. The exam was otherwise without abnormality on direct and retroflexion views. Moderate rectal prolapse was present. There was a medium-sized lipoma, in the ascending colon. Impression: - One 8 mm polyp in the transverse colon, removed with a jumbo cold forceps. Resected and retrieved. - Diverticulosis in the sigmoid colon. - The examined portion of the ileum was normal. - The examination was otherwise normal on direct and retroflexion views. Recommendation: - Discharge patient to home. - Resume previous diet. - Continue present medications. - Await pathology results. - Repeat colonoscopy in 5 years for surveillance. Procedure Code(s): --- Professional --- 03678, Colonoscopy, flexible; with biopsy, single or multiple CPT copyright 2021 [employer]. All rights reserved. The codes documented in this report are preliminary and upon harness rigger review may be revised to meet current compliance requirements. Ken Xie DO 04/15/2024 12:55:42 PM This report has been signed electronically. Number of Addenda: 0 Note Initiated On: 04/15/2024 12:34 PM
--- NOTE | 2024-04-15 12:59 | PCM.POST.ANE ---
Anesthesia: Postop Eval I Current Vital Signs Temperature: 97.1 F Pulse Rate: 90 Blood Pressure: 103/58 Respiratory Rate: 16 Pulse Ox: 96 Oxygen Delivery Method: Room Air Assessment Airway patent: Yes Spontaneous unlabored respirations: Yes Mental status: Asleep nausea: No Vomiting: No Anesthesia Complication: No Fluid Hydration Crystalloid volume administer (ml): 60 Total IV fluid infused: 60 Progress Note Anesthesia document: Postop Eval 1 completed: Yes
[2024-04-15 13:00] VITALS: BP 102/68; BP 103/58; BP 142/89; PULSE 87; PULSE 90; RESP 14; RESP 16; TEMP 36.2; O2SAT 96; O2SAT 97
[2024-04-15 13:07] VITALS: BP 108/68; BP 142/89; PULSE 85; RESP 12; O2SAT 99
[2024-04-15 13:10] VITALS: BP 104/68; BP 142/89; PULSE 84; RESP 14; TEMP 36.5; O2SAT 100
[2024-04-15] MEDS: 0.9% Saline Lock 10 ML Syringe IV (13:31)
--- NOTE | 2024-04-15 13:37 | PCM.POSTANE2 ---
Anesthesia Postop Eval I Sum Postop Eval Completion status Anesthesia document: Postop Eval 1 completed: Yes Anesthesia Postop Eval I Summary Anesthesia Postop Eval I Summary: Anesthesia Postop Eval I: Assessment Summary Airway patent Yes 04/15/24 13:00 [email or web address] Spontaneous unlabored Yes 04/15/24 13:00 [email or web address] respirations Mental status Asleep 04/15/24 13:00 [email or web address] nausea No 04/15/24 13:00 [email or web address] Vomiting No 04/15/24 13:00 [email or web address] Anesthesia Postop Eval I: Fluid Summary Crystalloid volume administer 60 04/15/24 13:00 [email or web address] (ml) Colloids volume administered ( ml) Blood Product volume administered (ml) Total IV fluid infused 60 04/15/24 13:00 [email or web address] Anesthesia Postop Eval I: Summary Notes Anesthesia Complication No 04/15/24 13:00 [email or web address] Anesthesia Complication Comment: Post-operative progress note Anesthesia: Postop Eval II Evaluation Mental status: Awake Pain Level: 0 nausea: No Vomiting: No
[2024-04-15 13:43] VITALS: BP 142/89
== END 2024-04-15 13:45 | disposition home or self-care (01) ==
LOC: EN 10:43 → AC 10:45
PROVIDERS: PCP Family Medicine; Referring Provider Family Medicine; Visit Provider Internal Medicine Gastroenterology
PROC: 0DJD8ZZ Inspection of Lower Intestinal Tract, Via Natural or Artificial Opening Endoscopic (ICD-10-PCS; CPT 45378; principal; 2024-04-15 11:55)
DX: K29.50 Unspecified chronic gastritis without bleeding (principal); K51.40 Inflammatory polyps of colon without complications; E11.9 Type 2 diabetes mellitus without complications; D50.9 Iron deficiency anemia, unspecified; I10 Essential (primary) hypertension; K57.30 Diverticulosis of large intestine without perforation or abscess without bleeding; D12.2 Benign neoplasm of ascending colon; K62.3 Rectal prolapse; E78.00 Pure hypercholesterolemia, unspecified; E03.9 Hypothyroidism, unspecified; Z79.02 Long term (current) use of antithrombotics/antiplatelets; Z79.84 Long term (current) use of oral hypoglycemic drugs; Z79.890 Hormone replacement therapy; Z79.899 Other long term (current) drug therapy
CPT/HCPCS: 43239; 45380; 82962; 88305; 88342; A4216; J2405

== ENCOUNTER → 2024-05-03 | Outpatient (CLI) | payer OTHER, SELFPAY | END | disposition home or self-care (01) | LOC: LABSPEC 11:44 | PROVIDERS: PCP Family Medicine; Visit Provider Student in an Organized Health Care Education/Training Program | DX: D64.9 Anemia, unspecified (principal) | CPT/HCPCS: 82274 ==

== ENCOUNTER 2024-05-27 01:28 | Observation (INO) | payer OTHER, SELFPAY ==
--- NOTE | 2024-05-27 01:27 | EKG12_ITS ---
Test Reason : CP ADMIT Blood Pressure : */* mmHG Vent. Rate : 89 BPM Atrial Rate : 89 BPM P-R Int : 138 ms QRS Dur : 82 ms QT Int : 390 ms P-R-T Axes : 67 32 63 degrees QTcB Int : 474 ms Normal sinus rhythm Normal ECG When compared with ECG of 10-Mar-2024 20:25, No significant change was found Confirmed by ALFONZO DORMAN, NAVIN ([id number]), editor managing director BENY HARRISON ([id number]) on 05/27/2024 9:48:40 AM Referred By: Confirmed By: NAVIN MEJÍA MD
--- NOTE | 2024-05-27 02:27 | PCM.HP.STD ---
HPI - General General Date of Admission: 05/27/24 Date of Service: 05/27/24 Chief Complaint: Chest pain, lightheadedness/near syncopal. HPI Narrative The patient is a 63 y/o F w/ PMHx: Hypothyroidism, Rheumatoid arthritis, HTN, HLD, Chronic asthma with allergic rhinitis, Obesity, Diabetes mellitus type II, Chronic anemia/Fe deficiency anemia, Hx NSTEMI w01/12/24 Cardiac catheterization with normal angiographically bifurcating left main coronary into LAD and left circumflex, left anterior descending artery large vessel reaching all the way to the apex with angiographically apical portion of the LAD with significant disease but small vessel, left circumflex normal angiographically, RCA large dominant with proximal RCA mild haziness, moderate atherosclerosis of around 40 to 50% however the admission at that time had been complicated by possible PNA and also concern for possibly GI bleed which was eventually ruled out with recommended follow-up outpatient with gastroenterology prior to following up again with cardiology with continuation of Plavix at that time and hold on aspirin until cleared per gastroenterology with most recently noted endoscopy 04/15/2024 with upper endoscopy with normal esophagus, erythematous mucosa in the gastric body which was biopsied and no gross lesions in the second part of the duodenum in addition to colonoscopy notable for an 8 mm polyp in transverse colon removed, diverticulosis otherwise normal-appearing plan continue iron supplementation, repeat negative fecal occult blood test at that time with consideration for possible upcoming future capsule endoscopy. Patient presented to the [facility] initially on 05/26/2024 secondary to history of onset of chest discomfort just as she was getting ready for bed with sudden onset sternal aching nonradiating starting at approximately 7 PM initially sharp and then became more aching /10 in severity with concurrent onset mild lightheadedness and some bilateral paresthesias sensations to the face and LUE with near syncopal type sensation prompting EMS call. She denied any nausea or emesis nor any dyspnea or diaphoresis to the outside facility ED. EMS administered full-strength aspirin and nitroglycerin. She did report onset of a headache but transiently improved in the outside ED but then was recurrent. Patient does report that on day of presentation she had nearly 2 weeks worth of laundry that she was doing and did get through all of the loads going up and down stairs which is a lot more than she does activity wang at baseline. Upon transfer and evaluation at [facility] upon arrival patient does have reproducible pain. Workup in the outside facility included initial vital signs heart rate 113, respiratory rate 20, BP 173/92 with repeat most recent vital signs upon request to transfer BP 117/64, heart rate 89, respiratory rate 14, T37, 94% on room air, proBNP 80, magnesium 1.5, BMP with sodium 138, potassium 3.6, chloride 102, CO2 27, BUN/creatinine 15/0.83, glucose 268, initial high-sensitivity troponin 81, CBC with WBC 8.0, hemoglobin 12.8, MCV 80.2, platelet 179 without marked shift, urinalysis with elevated specific gravity 1.025, negative nitrite, small leukocyte esterase, no marked urine WBCs or RBCs, repeat delta troponin 74, CT of the brain with no acute intracranial findings, chest x-ray with no acute cardiopulmonary findings with a right IJV tunneled catheter port tip projecting over the right atrium, EKG with sinus tachycardia with no acute evidence of ischemia. In the outside ED patient was administered morphine 4 mg IV x 1, Zofran 4 mg IV x 1, magnesium 2 g IV x 1. [facility] Medical History Wears partial dentures Wears glasses Thyroid disease Rheumatoid arthritis High cholesterol Dietary restriction History of rheumatic fever Non-smoker History of echocardiogram Cardiology follow-up encounter Anemia Hypothyroidism Diabetes Migraines Hypertension Arthritis Asthma Diabetes mellitus, type 2 Obesity (BMI 30.0-34.9) NSTEMI, initial episode of care Rheumatoid arthritis Home Medications ?Medication ?Instructions ?Recorded ?Last Taken ?Type folic acid 1 mg tablet 1 mg PO DAILY 01/11/24 05/27/24 History hydroxychloroquine 200 mg tablet 200 mg PO DAILY 01/11/24 05/27/24 History infliximab-abda 100 mg intravenous IV .Q6W RA 01/11/24 11/03/23 History solution (Renflexis) ipratropium bromide 42 mcg (0.06 2 spray intranasal TID PRN sinus 01/11/24 05/27/24 History %) nasal spray symptoms levothyroxine 25 mcg tablet 25 mcg PO DAILY 01/11/24 05/27/24 History methotrexate sodium 2.5 mg tablet 20 mg PO QWEEK RA 01/11/24 05/26/24 History montelukast 10 mg tablet 10 mg PO DAILY 01/11/24 05/27/24 History tizanidine 2 mg tablet 2 - 6 mg PO QHS PRN PRN muscle 01/11/24 05/24/24 History spasticity albuterol sulfate 2.5 mg/3 mL 2.5 mg (3 mL) inhalation Q4H PRN 01/13/24 Unknown Rx (0.083 %) solution for nebulization PRN sob #180 mL albuterol sulfate 90 mcg/actuation 2 puff inhalation Q4H PRN 01/13/24 Unknown Rx aerosol inhaler shortness of breath or wheezing #8.5 grams atorvastatin 80 mg tablet 80 mg PO QHS 30 days #30 tabs 01/13/24 05/26/24 Rx clopidogrel 75 mg tablet 75 mg PO DAILY 30 days #30 tabs 01/13/24 05/27/24 Rx metformin 500 mg tablet 1,000 mg PO QDAY 02/26/24 05/27/24 History metoprolol tartrate 50 mg tablet 50 mg PO BID #180 tabs 02/26/24 05/27/24 Rx spironolactone 25 mg tablet 25 mg PO DAILY #30 tabs 02/26/24 05/27/24 Rx amlodipine 5 mg tablet 5 mg PO 1200 04/12/24 05/27/24 History hydralazine 25 mg tablet 25 mg PO TID 04/12/24 05/27/24 History ferrous sulfate 324 mg (65 mg 324 mg PO QDAY #60 tabs 04/30/24 05/26/24 Rx iron) tablet,delayed release Allergy/AdvReac Type Severity Reaction Status Date / Time meperidine (From Demerol) AdvReac HYPOTENSION Verified 04/12/24 13:41 Sulfa (Sulfonamide AdvReac Abd Verified 04/12/24 13:41 Antibiotics) cramps/diarrhea Surgical History History of cardiac catheterization History of laparoscopy History of tonsillectomy History of hysterectomy History of History of appendectomy History of cholecystectomy Social History Smoking Status: Never smoker ROS ROS Narrative Admission Review of Systems: CONSTITUTIONAL: No weight loss, fever, chills, + weakness or fatigue. HEENT: + Headache, lightheadedness/dizziness/no syncopal sensation. Eyes: No visual loss, blurred vision, double vision or yellow sclerae. Ears, Nose, Throat: No hearing loss, sneezing, congestion, runny nose or sore throat. SKIN: No rash or itching, lesions, wounds. CARDIOVASCULAR: + Chest pain, lightheadedness/dizziness/near syncopal sensation. No palpitations, edema, orthopnea, syncopal events. RESPIRATORY: No shortness of breath, cough or sputum, wheezing, hemoptysis. GASTROINTESTINAL: No anorexia, nausea, vomiting or diarrhea, abdominal pain, melena, BRBPR. GENITOURINARY: No dysuria, frequency, urgency or retention. NEUROLOGICAL: + Headache, dizziness, lightheadedness/near syncopal sensation, bilateral facial transient paresthesias/LUE with onset of discomfort in the chest. No syncope, paralysis, ataxia, numbness or tingling in the extremities, focal weakness, change in bowel or bladder control, seizure. MUSCULOSKELETAL: + muscle, back pain, joint pain or stiffness. HEMATOLOGIC: + Chronic anemia, easy bleeding/bruising. LYMPHATICS: No enlarged nodes. No history of splenectomy. PSYCHIATRIC: No history of depression or anxiety. ENDOCRINOLOGIC: No reports of sweating, cold or heat intolerance. No polyuria or polydipsia. ALLERGIES: + History of asthma with allergic rhinitis. Physical Exam Narrative Physical Examination: General: Awake, alert, oriented x 3 and cooperative, seated upright in PCU bed in no apparent distress, notes some still anterior chest sternal discomfort which upon evaluation is reproducible and she confirms that that is the pain she is having. Skin: Normal color, normal turgor, no icterus, no cyanosis. HEENT: AT/NC, EOMI, PERRLA, MMM, no carotid bruits or JVD noted. Lungs: Mildly diminished, greater bases, poor effort, no rales, ronchi or wheezing. Heart: Regular rate and rhythm; no gallop, rub audible, + anterior chest discomfort with palpation which she confirms is the chest discomfort she is complaining of. Abdomen: Soft, obese, NTTP, ND, distant normal BS, no appreciated HSM. Extremities: No cyanosis, clubbing, or edema. Neurological: Patient awake, alert, oriented as noted, cognitive function intact; pupils equally reactive to light and accommodation, cranial nerves grossly normal, moving all 4 extremities, no focal deficits, strength mildly globally creased. Psychiatric: Affect appears fatigued otherwise normal, no acute evidence of depressive or anxiety feelings. Assessment & Plan Assessment/Plan (1) Chest pain: PLAN: Plan The patient is a 63 y/o F w/ PMHx: Hypothyroidism, Rheumatoid arthritis, HTN, HLD, Chronic asthma with allergic rhinitis, Obesity, Diabetes mellitus type II, Chronic anemia/Fe deficiency anemia, Hx NSTEMI w/ 01/12/24 Cardiac catheterization with normal angiographically bifurcating left main coronary into LAD and left circumflex, left anterior descending artery large vessel reaching all the way to the apex with angiographically apical portion of the LAD with significant disease but small vessel, left circumflex normal angiographically, RCA large dominant with proximal RCA mild haziness, moderate atherosclerosis of around 40 to 50% who now presents to the [facility] as a direct admission on 05/27/24 with initiall presentation to the [facility] initially on 05/26/2024 secondary to history of onset of chest discomfort just as she was getting ready for bed with sudden onset sternal aching nonradiating starting at approximately 7 PM initially sharp and then became more aching with concurrent onset mild lightheadedness and some bilateral paresthesias sensations to the face and LUE with near syncopal type sensation prompting EMS call. #1. Chest pain, near syncopal sensation with facial paresthesias concerning for ACS; however, some component reproducible pain thus potentially also musculoskeletal etiology: EKG in ED sinus tachycardia with no acute evidence of ischemia, CXR w/ no acute cardiopulmonary finding, initial trop 81 with repeat delta 74 at outside facility however initial obtained at [facility] 7 thus unclear if these were truly elevated previous as should be a similar lab value given both high-sensitivity but uncertain. Will admit to PCU from outside facility, place on a monitored bed to assure no acute myocardial infarction with serial cardiac enzymes and EKGs. If serial enzymes continue to remain normal as are currently then would plan AM cardiac stress testing. Magnesium as noted outside facility mildly decreased 1.5 with supplementation administered with plan repeat level in a.m. to ensure resolved. FLP in AM. Continue medical management. ASA, NG, morphine. #2. Hypomagnesemia: Outside facility with magnesium 1.5, supplementation administered at outside facility prior to transfer, will repeat level in a.m. to ensure improved. Ous to transfer #3. Chronic microcytic anemia/iron deficiency anemia: Outside facility labs included hemoglobin 12.8, MCV 80.2, most recent hemoglobin noted previous to this 03/10/2024 hemoglobin 10.2, following with gastroenterology, recent upper and lower endoscopies with no obvious bleeding source, recent fecal occult blood test negative, plan potential outpatient future endoscopy, encourage continued iron supplementation, continue to trend CBC. #4. Chronic asthma with allergic rhinitis: Will temporarily hold home inhalers in the interim maintain on ATC budesonide therapies, PRN albuterol, HOB, IS parameters, continue patient home montelukast regimen. #5. Hypertension: Continue home hydralazine, spironolactone, amlodipine, metoprolol with hold parameters as needed. PRN IV hydralazine. #6. Hyperlipidemia: Continue home statin regimen. AM FLP. #7. Diabetes mellitus type II: Hold oral home regimen, NPO status given planned cardiac stress testing as noted with return to ADA diet once appropriate, accu checks w/ ISS. #8. Rheumatoid arthritis: We will continue patient home Plaquenil, also on methotrexate which will temporarily be held, continue folic acid supplementation, encourage continued outpatient follow-up as previously arranged with rheumatology. From review of records also on infliximab. #9. Hypothyroidism: Will continue home levothyroxine regimen. #10. Obesity: Weight loss and lifestyle changes encouraged. #11. GERD: We will continue patient on PPI. #12. DVT prophylaxis: Lovenox, chemoprophylactic dosing as troponins are trending downward. #13. CODE STATUS: Full Code status. Charges/Coding Visit Charges Inpatient E&M: 64297 Init Hosp L3
[2024-05-27 02:30] VITALS: BMI 32.5
[2024-05-27 02:31] VITALS: BP 151/89; PULSE 84; RESP 18; TEMP 36.7; O2SAT 95
[2024-05-27] MEDS: 0.9% Normal Saline (1000mL) 1,000 ML 100 ML IV (02:52)
[2024-05-27] MEDS: 0.9% Saline Lock 10 ML Syringe IV (02:53)
[2024-05-27 03:07] LABS: Troponin T High Sensitivity 7 ng/L (<=14)
[2024-05-27 03:20] VITALS: O2SAT 96
[2024-05-27 04:13] VITALS: BMI 32.5
[2024-05-27 05:12] LABS: Troponin T High Sens 2 HR < 6 ng/L (<=14)
[2024-05-27 06:32] LABS: Absolute Neutrophil Count 3.6 X10^3/uL (2.0-7.7); Basophil# 0.02 X10^3/uL; Basophil% 0.3 % (0-1); Eosinophil# 0.24 X10^3/uL; Eosinophils% 3.4 % (0-5); Hematocrit 37.1 % (37-47); Hemoglobin 11.7 g/dL (12.0-15.0); Lymphocyte % 35.2 % (19-41); Mean Corp Hgb Conc 31.5 g/dL (32-36); Mean Corpuscular Hgb 26.1 pg (27.0-32.0); Mean Corpuscular Volume 82.8 fL (81-99); Mean Platelet Vol. 10.3 fl (6.2-12.0); Monocyte# 0.76 X10^3/uL; Monocyte% 10.7 % (0-10); NRBC Flagged by Analyzer 0 % (0-5); Neutrophil # 3.57 X10^3/uL (2.7-7.7); Neutrophil % 50.1 % (47-70); Platelet Count 183 K/mm3 (150-450); RBC Distribution Width CV 19.5 % (11.6-14.6); RBC Distribution Width SD 57.8 fl (35.1-43.9); Red Blood Count 4.48 M/mm3 (4.2-5.4); White Blood Count 7.1 K/mm3 (4.4-11.0)
[2024-05-27 06:33] VITALS: BP 120/83; PULSE 82; RESP 18; TEMP 36.7; O2SAT 96
[2024-05-27] MEDS: Levothyroxine 25 MCG TABLET PO (06:35)
[2024-05-27] MEDS: Clopidogrel Bisulfate 75 MG Tablet PO (06:35)
[2024-05-27] MEDS: Aspirin E.C. 81 MG Tablet PO (06:35)
[2024-05-27] MEDS: Budesonide Respules 0.5 MG/2 ML AMPUL.NEB. INHALATION (06:48)
[2024-05-27 06:49] VITALS: PULSE 80; RESP 18; O2SAT 98
[2024-05-27 06:54] LABS: Troponin T High Sens 4 HR < 6 ng/L (<=14)
[2024-05-27 06:55] LABS: Bedside Glucose 178 mg/dL (74-106)
[2024-05-27 10:00] VITALS: BP 139/80; PULSE 81; RESP 16; TEMP 36.6; O2SAT 95
[2024-05-27 12:28] LABS: Magnesium 2.1 mg/dL (1.5-2.2)
[2024-05-27 12:46] LABS: Bedside Glucose 124 mg/dL (74-106)
[2024-05-27 13:11] LABS: ALB/GLOB Ratio 1.9 RATIO (0.9-2.4); AST(SGOT) 19 U/L (<=31); Alanine Aminotransfer ALT/SGPT 20 U/L (<=34); Albumin, Serum 4.1 g/dL (3.4-4.8); Alkaline Phosphatase 79 U/L (35-104); Anion Gap 12 (5-15); BUN 16 mg/dL (4-19); BUN/Creat Ratio 21.9 RATIO (10-20); Calcium,Total 9.1 mg/dL (7.6-11.0); Carbon Dioxide 23.1 mmol/L (21.0-32.0); Chloride 104 mmol/L (98-108); Creatinine, Serum 0.71 mg/dL (0.70-1.20); EST Glomerular Filtration Rate 96 (>60); Estimated Creatinine Clearance 79.78 ml/min (50-250); Globulin 2.1 g/dL (2.2-4.2); Glucose 196 mg/dL (70-99); Potassium 3.9 mmol/L (3.3-5.1); Protein, Total 6.3 g/dL (5.9-8.4); Sodium Level 139 mmol/L (133-145); Total Bilirubin 0.25 mg/dL (0.00-1.30)
--- NOTE | 2024-05-27 15:03 | DCINST_ITS ---
Discharge Instructions Diet Discharge Diet: 1800 Calorie Control Diet DC O2, CPAP, BIPAP needs Home O2 Discharge instructions: No Dressing / Incision Discharge Activity: Return to Normal Activity Follow Up Care Test Results: Test results from this visit will be discussed in further detail at your follow- up appointment, if applicable. Discharge Plan Admission Admit Date/Time: 05/27/24 01:28 Primary Reason for Your Visit: Noncardiac chest pain Attending Provider: sIael Baeza Primary Care Provider: Paul Huston Consulting Providers: Natalie Gaspar Discharge Orders/Prescriptions Prescriptions: Continued metformin 500 mg tablet 1,000 mg PO QDAY metoprolol tartrate 50 mg tablet 50 mg PO BID Qty: 180 3RF ferrous sulfate 324 mg (65 mg iron) tablet,delayed release (DR/EC) 324 mg PO QDAY Qty: 60 2RF tizanidine 2 mg tablet 2 - 6 mg PO QHS PRN PRN (Reason: muscle spasticity) levothyroxine 25 mcg tablet 25 mcg PO DAILY methotrexate sodium 2.5 mg tablet 20 mg PO QWEEK Patient Comments: takes it every Monday folic acid 1 mg tablet 1 mg PO DAILY montelukast 10 mg tablet 10 mg PO DAILY hydroxychloroquine 200 mg tablet 200 mg PO DAILY ipratropium bromide 42 mcg (0.06 %) spray,non-aerosol 2 spray INTRANASAL TID PRN (Reason: sinus symptoms) Renflexis 100 mg recon soln IV .Q6W Patient Comments: gets it every 7 weeks atorvastatin 80 mg Tablet 80 mg PO QHS 30 Days Qty: 30 0RF clopidogrel 75 mg Tablet 75 mg PO DAILY 30 Days Qty: 30 0RF albuterol sulfate 2.5 mg /3 mL (0.083 %) solution for nebulization 2.5 mg inhalation Q4H PRN PRN (Reason: sob) Qty: 180 0RF albuterol sulfate 90 mcg/actuation HFA aerosol inhaler 2 puff inhalation Q4H PRN (Reason: shortness of breath or wheezing) Qty: 8.5 0RF hydralazine 25 mg tablet 25 mg PO TID amlodipine 5 mg tablet 5 mg PO 1200 Rx Instructions: 5 mg orally daily at noon; spironolactone 25 mg tablet 25 mg PO DAILY Qty: 30 11RF Referrals / Follow Up: Paul Huston MD [Primary Care Provider] - Within 2 Weeks Disposition Disposition (needs filled in before D/C Order can be placed): Home, Self Care
--- NOTE | 2024-05-27 15:04 | STRESSREP ---
Stress Test Report Pharmacologic myocardial perfusion stress test. 63-year-old lady with a history of chest pain Resting EKG demonstrates sinus rhythm with a rate of 74 bpm. Resting blood pressure is 142/80 mmHg. 0.4 mg of regadenoson was infused per usual protocol followed by rapid intravenous saline flush injection. Continuous EKG monitoring was performed. The maximum heart rate was 104 bpm which was 66% of max impacted heart rate the maximum workload was 1 metabolic equivalent. At rest there were no ST or T wave changes noted to suggest ischemia and at peak infusion nonspecific ST changes were noted which did not meet the criteria for ischemia. No clinical angina is noted. The final blood pressure was 138/74 mmHg. Myocardial perfusion protocol. 12 mCi of technetium 99m sestamibi was injected at rest. 0.4 mg of regadenoson was infused per usual protocol. At peak infusion 35.1 mCi of technetium 99m sestamibi was injected stress images were obtained stress and rest images were reconstructed and compared in the short axis vertical long and horizontal long axis. Gated images were also obtained. Perfusion SPECT analysis: Review of the stress images demonstrate normal uptake of tracer noted in all areas of the myocardium. The resting images similar demonstrated normal uptake of tracer noted in all areas of the myocardium. No areas of reversibility are noted to suggest ischemia and no previous infarct is noted. Gated SPECT analysis: The gated ejection fraction is 73%. Conclusion: Normal pharmacologic myocardial perfusion stress test. [Preserved] ejection fraction.
--- NOTE | 2024-05-27 15:06 | DS.PCM_ITS ---
Providers Date of Admission: 05/27/24 Date of Discharge: 05/27/24 Primary Care Physician: Paul Huston MD Reason For Visit: CHEST PAIN Diagnosis Discharge Diagnosis (1) Chest pain: Status: Acute Code(s): R07.9 - Chest pain, unspecified Plan 1. Musculoskeletal chest pain #2 demand ischemia-etiology unclear #3 chronic asthma #4 essential hypertension #5 hyperlipidemia #6 type 2 diabetes #7 rheumatoid arthritis Medications at Discharge Home Medications folic acid 1 mg tablet 1 mg PO DAILY 01/11/24 hydroxychloroquine 200 mg tablet 200 mg PO DAILY 01/11/24 infliximab-abda 100 mg intravenous solution (Renflexis) IV .Q6W RA 01/11/24 ipratropium bromide 42 mcg (0.06 %) nasal spray 2 spray intranasal TID PRN sinus symptoms 01/11/24 levothyroxine 25 mcg tablet 25 mcg PO DAILY 01/11/24 methotrexate sodium 2.5 mg tablet 20 mg PO QWEEK RA 01/11/24 montelukast 10 mg tablet 10 mg PO DAILY 01/11/24 tizanidine 2 mg tablet 2 - 6 mg PO QHS PRN PRN muscle spasticity 01/11/24 albuterol sulfate 2.5 mg/3 mL (0.083 %) solution for nebulization 2.5 mg (3 mL) inhalation Q4H PRN PRN sob #180 mL 01/13/24 albuterol sulfate 90 mcg/actuation aerosol inhaler 2 puff inhalation Q4H PRN shortness of breath or wheezing #8.5 grams 01/13/24 atorvastatin 80 mg tablet 80 mg PO QHS 30 days #30 tabs 01/13/24 clopidogrel 75 mg tablet 75 mg PO DAILY 30 days #30 tabs 01/13/24 metformin 500 mg tablet 1,000 mg PO QDAY 02/26/24 metoprolol tartrate 50 mg tablet 50 mg PO BID #180 tabs 02/26/24 spironolactone 25 mg tablet 25 mg PO DAILY #30 tabs 02/26/24 amlodipine 5 mg tablet 5 mg PO 1200 04/12/24 hydralazine 25 mg tablet 25 mg PO TID 04/12/24 ferrous sulfate 324 mg (65 mg iron) tablet,delayed release 324 mg PO QDAY #60 tabs 04/30/24 Hospital Course Operations None Procedures Nuclear stress test Summary of Care Provided Minutes Spent on Discharge: 30 Hospital Course: This 63-year-old white female presented to an outside hospital initially on 05/26/2024 with onset of chest discomfort which was described as an ache, and nonradiating. Patient was directly transferred to PCU as an observation patient, cardiac enzymes remained elevated but there were at approximately the same level. Patient had reproducible pain on examination when she was admitted to PCU. Magnesium at the outside emergency room was low at 1.5 troponin was 81. EKG showed a sinus tachycardia without evidence of ischemia. Patient was placed in observation status on PCU and observed, she underwent a resting nuclear stress test which was negative for reversible ischemia. On 05/27/2024, patient was seen and examined: On examination she appeared in good health and spirits, she does not appear to be in any distress. Vital signs as documented. Skin warm and dry and without overt rashes. Neck without JVD, thyroid appears normal, trachea is midline, neck is supple. Lungs clear, normal air movement was noted. Heart exam notable for regular rhythm, normal sounds and absence of murmurs, rubs or gallops. Abdomen unremarkable and without evidence of organomegaly, masses, or abdominal aortic enlargement, bowel sounds are present in all 4 quadrants, no abdominal tenderness was noted. Extremities nonedematous, no cyanosis was noted, no clubbing was noted. Neuro: Cranial nerves II through XII are grossly intact, no focal motor deficits were noted, sensation to light touch and pinprick is intact, motor exam 5/5 throughout. Psych: Patient is alert and oriented x3, she does not appear anxious or depressed, she does not appear agitated. Patient was discharged home in stable condition on 05/27/2024. Weight / BMI Weight Weight: 80.64 kg Body Mass Index (BMI) 32.5 ABG / Lab / Microbiology Data 05/27/24 06:20 05/27/24 06:20 Laboratory: Laboratory Results - last 24 hr 05/27/24 02:40: Troponin T High Sens 7 05/27/24 04:39: Troponin T Hi Sens 2 Hr < 6 05/27/24 06:20: WBC 7.1, RBC 4.48, Hgb 11.7 L, Hct 37.1, MCV 82.8, MCH 26.1 L, M CHC 31.5 L, RDW Std Deviation 57.8 H, RDW Coeff of Jeison 19.5 H, Plt Count 183, MPV 10.3, Immature Gran % (Auto) 0.300, Neut % (Auto) 50.1, Lymph % (Auto) 35.2, Cannon % (Auto) 10.7 H, Eos % (Auto) 3.4, Baso % (Auto) 0.3, Absolute Neuts (auto) 3.6, Absolute Lymphs (auto) 2.50, Nucleated RBC % 0, Sodium 139, Potassium 3.9, Chloride 104, Carbon Dioxide 23.1, Anion Gap 12, BUN 16, Creatinine 0.71, Estim Creat Clear Calc 79.78, Est GFR (MDRD) Non-Af 96, BUN/Creatinine Ratio 21.9 H, G lucose 196 H, Calcium 9.1, Magnesium 2.1, Total Bilirubin 0.25, AST 19, ALT 20, Alkaline Phosphatase 79, Troponin T Hi Sens 4Hr < 6, Total Protein 6.3, Albumin 4.1, Globulin 2.1 L, Albumin/Globulin Ratio 1.9 05/27/24 06:34: POC Glucose 178 H 05/27/24 12:27: POC Glucose 124 H D/C Instructions Discharge Diet: 1800 Calorie Control Diet DC O2, CPAP, BIPAP Needs Home O2 Discharge instructions: No Meaningful Use Info Meaningful Use Meaningful Use Diagnoses (Choose all that apply): None applicable Ischemic Stroke Statin Dosing Therapy Reference: STATIN DOSE THERAPY REFERENCE: * Patients > 75 years receive moderate or high dose statin therapy. * Patients 75 years or YOUNGER should receive HIGH intensity statin dose unless contraindicated. You will be required to document reason for non-treatment if statin daily dose does not meet guidelines. HIGH DOSE STATIN THERAPY DAILY Atorvastatin > than or = to 40 mg Rosuvastatin > than or = to 20 mg Amlodipine + Atorvastatin > than or = to 2.5/40 mg Ezetimibe + Simvastatin 10/80 mg Simvastatin 80mg Discharge Plan Admission Admit Date/Time: 05/27/24 01:28 Primary Reason for Your Visit: Noncardiac chest pain Attending Provider: Isael Baeza Primary Care Provider: Paul Huston Consulting Providers: Natalie Gaspar Discharge Orders/Prescriptions Prescriptions: Continued metformin 500 mg tablet 1,000 mg PO QDAY metoprolol tartrate 50 mg tablet 50 mg PO BID Qty: 180 3RF ferrous sulfate 324 mg (65 mg iron) tablet,delayed release (DR/EC) 324 mg PO QDAY Qty: 60 2RF tizanidine 2 mg tablet 2 - 6 mg PO QHS PRN PRN (Reason: muscle spasticity) levothyroxine 25 mcg tablet 25 mcg PO DAILY methotrexate sodium 2.5 mg tablet 20 mg PO QWEEK Patient Comments: takes it every Monday folic acid 1 mg tablet 1 mg PO DAILY montelukast 10 mg tablet 10 mg PO DAILY hydroxychloroquine 200 mg tablet 200 mg PO DAILY ipratropium bromide 42 mcg (0.06 %) spray,non-aerosol 2 spray INTRANASAL TID PRN (Reason: sinus symptoms) Renflexis 100 mg recon soln IV .Q6W Patient Comments: gets it every 7 weeks atorvastatin 80 mg Tablet 80 mg PO QHS 30 Days Qty: 30 0RF clopidogrel 75 mg Tablet 75 mg PO DAILY 30 Days Qty: 30 0RF albuterol sulfate 2.5 mg /3 mL (0.083 %) solution for nebulization 2.5 mg inhalation Q4H PRN PRN (Reason: sob) Qty: 180 0RF albuterol sulfate 90 mcg/actuation HFA aerosol inhaler 2 puff inhalation Q4H PRN (Reason: shortness of breath or wheezing) Qty: 8.5 0RF hydralazine 25 mg tablet 25 mg PO TID amlodipine 5 mg tablet 5 mg PO 1200 Rx Instructions: 5 mg orally daily at noon; spironolactone 25 mg tablet 25 mg PO DAILY Qty: 30 11RF Referrals / Follow Up: Paul Huston MD [Primary Care Provider] - Within 2 Weeks Disposition Disposition (needs filled in before D/C Order can be placed): Home, Self Care Charges/Coding Visit Charges Inpatient E&M: 83998 Disch Hosp
--- NOTE | 2024-05-27 15:11 | PHA.DC.MR.R ---
Pharmacy [place] Med Reconciliation Pharmacy Service has performed discharge medication reconciliation for this patient. The patient's discharge medication list was reviewed for discrepancies and discrepancies were resolved. Medications at Discharge Home Medications folic acid 1 mg tablet 1 mg PO DAILY 01/11/24 hydroxychloroquine 200 mg tablet 200 mg PO DAILY 01/11/24 infliximab-abda 100 mg intravenous solution (Renflexis) IV .Q6W RA 01/11/24 ipratropium bromide 42 mcg (0.06 %) nasal spray 2 spray intranasal TID PRN sinus symptoms 01/11/24 levothyroxine 25 mcg tablet 25 mcg PO DAILY 01/11/24 methotrexate sodium 2.5 mg tablet 20 mg PO QWEEK RA 01/11/24 montelukast 10 mg tablet 10 mg PO DAILY 01/11/24 tizanidine 2 mg tablet 2 - 6 mg PO QHS PRN PRN muscle spasticity 01/11/24 albuterol sulfate 2.5 mg/3 mL (0.083 %) solution for nebulization 2.5 mg (3 mL) inhalation Q4H PRN PRN sob #180 mL 01/13/24 albuterol sulfate 90 mcg/actuation aerosol inhaler 2 puff inhalation Q4H PRN shortness of breath or wheezing #8.5 grams 01/13/24 atorvastatin 80 mg tablet 80 mg PO QHS 30 days #30 tabs 01/13/24 clopidogrel 75 mg tablet 75 mg PO DAILY 30 days #30 tabs 01/13/24 metformin 500 mg tablet 1,000 mg PO QDAY 02/26/24 metoprolol tartrate 50 mg tablet 50 mg PO BID #180 tabs 02/26/24 spironolactone 25 mg tablet 25 mg PO DAILY #30 tabs 02/26/24 amlodipine 5 mg tablet 5 mg PO 1200 04/12/24 hydralazine 25 mg tablet 25 mg PO TID 04/12/24 ferrous sulfate 324 mg (65 mg iron) tablet,delayed release 324 mg PO QDAY #60 tabs 04/30/24
--- NOTE | 2024-05-27 15:27 | CASEMGMT ---
Patient has order for discharge. RN CM in to discuss needs at discharge. Patient denies needs or help at discharge. Patient had no further questions or concerns.
[2024-05-27] MEDS: Acetaminophen 325 MG Tablet 650 MG PO (15:40)
[2024-05-27 15:41] VITALS: PULSE 86
[2024-05-27] MEDS: Metoprolol Tartrate 50 MG Tablet PO (15:41)
[2024-05-27] MEDS: Hydroxychloroquine 200 MG Tablet PO (15:41)
[2024-05-27] MEDS: Folic Acid 1 MG Tablet PO (15:41)
[2024-05-27] MEDS: Montelukast 10 MG Tablet PO (15:41)
[2024-05-27] MEDS: Ferrous Sulfate 325 MG Tablet PO (15:43)
[2024-05-27] MEDS: Spironolactone 25 MG Tablet PO ×2 (15:49→15:50)
== END 2024-05-27 15:06 | disposition home or self-care (01) ==
PROVIDERS: Admitting Provider Family Medicine; PCP Family Medicine; Visit Provider Internal Medicine
DX: R07.89 Other chest pain (principal); M06.9 Rheumatoid arthritis, unspecified; I24.89 Other forms of acute ischemic heart disease; E11.9 Type 2 diabetes mellitus without complications; J45.909 Unspecified asthma, uncomplicated; I10 Essential (primary) hypertension; E66.9 Obesity, unspecified; E78.00 Pure hypercholesterolemia, unspecified; R55 Syncope and collapse; E83.42 Hypomagnesemia; D50.9 Iron deficiency anemia, unspecified; E03.9 Hypothyroidism, unspecified; K21.9 Gastro-esophageal reflux disease without esophagitis; Z68.32 Body mass index [BMI] 32.0-32.9, adult; I25.2 Old myocardial infarction; Z79.02 Long term (current) use of antithrombotics/antiplatelets; Z79.84 Long term (current) use of oral hypoglycemic drugs; Z79.890 Hormone replacement therapy; Z79.899 Other long term (current) drug therapy
CPT/HCPCS: 36415; 78452; 80053; 82962; 83735; 84484; 85025; 93005; 93017; 94640; 94668; 99221; 99252; A9500; A4216; G0378; G0463; J2785

== ENCOUNTER 2024-07-03 18:09 | Emergency (ER) | payer OTHER, SELFPAY ==
[2024-07-03] VITALS (14 sets, daily range): BP systolic 132–163; BP diastolic 57–95; PULSE 70–113; RESP 13–20; TEMP 36.6–36.8; O2SAT 96–100; BMI 34.9
--- NOTE | 2024-07-03 18:59 | EKG12_ITS ---
Test Reason : CP Blood Pressure : */* mmHG Vent. Rate : 98 BPM Atrial Rate : 98 BPM P-R Int : 126 ms QRS Dur : 84 ms QT Int : 380 ms P-R-T Axes : 58 13 72 degrees QTcB Int : 485 ms Normal sinus rhythm Nonspecific ST abnormality Abnormal ECG Confirmed by ALFONZO DORMAN, NAVIN ([id number]), editor city BENY HARRISON ([id number]) on 07/04/2024 1:29:46 PM Referred By: JULIAN Confirmed By: NAVIN MEJÍA MD
--- NOTE | 2024-07-03 18:59 | ED.VIS.CHEST ---
HPI History of Present Illness Chief Complaint: Chest Pain Informant: patient Onset/Context/Timing Onset: Today Activity at onset: sudden Timing: Continuous Quality: Positive for Dull and Sharp Location: Left Chest Worsened By: Nothing Relieved By: Nothing Associated Symptoms: Positive for Lightheadedness and Palpitations; Negative for Nausea, Vomiting, Diaphoresis, Dyspnea, Cough, Fever or Acid Reflux Narrative Narrative: Patient presents with chest pain that began today. Patient states she was driving when the pain began. Patient states she pulled into a parking lot and called EMS. Patient states her pain is dull but sharp at times. Patient states it is over the left side of her chest. Patient states she had similar episodes approximately 1 month ago and was admitted to the hospital at that time. Patient states her workup was unremarkable and she was discharged home. Patient states the pain began again today. Patient states nothing makes it better and nothing makes it worse. Patient was given 1 nitroglycerin and baby aspirin by EMS. Patient states her pain is improving at this time. CVD Risk Factors: Positive for Hypertension and Family History 1' </=55; Negative for Diabetes, Hypercholesterolemia or Smoking PE Risk Factors: Negative for Recent Travel/Surgery, Recent Immobilization, Prior DVT or PE, Cancer or OCP + Smoking + >/=35 PFSH [facility] Medical History Chest pain Wears partial dentures Wears glasses Thyroid disease Rheumatoid arthritis High cholesterol Dietary restriction History of rheumatic fever Non-smoker History of echocardiogram Cardiology follow-up encounter Anemia Hypothyroidism Diabetes Migraines Hypertension Arthritis Asthma Diabetes mellitus, type 2 Obesity (BMI 30.0-34.9) NSTEMI, initial episode of care Rheumatoid arthritis Home Medications ?Medication ?Instructions ?Recorded ?Last Taken ?Type folic acid 1 mg tablet 1 mg PO DAILY 01/11/24 07/03/24 History hydroxychloroquine 200 mg tablet 200 mg PO QHS 01/11/24 07/02/24 History infliximab-abda 100 mg intravenous IV .Q6W RA 01/11/24 06/04/24 History solution (Renflexis) ipratropium bromide 42 mcg (0.06 2 spray intranasal TID PRN sinus 01/11/24 05/27/24 History %) nasal spray symptoms levothyroxine 25 mcg tablet 25 mcg PO DAILY 01/11/24 07/03/24 History methotrexate sodium 2.5 mg tablet 15 mg PO NEVILLE RA 01/11/24 06/30/24 History montelukast 10 mg tablet 10 mg PO QHS 01/11/24 07/02/24 History tizanidine 2 mg tablet 2 mg PO QHS PRN muscle spasticity 01/11/24 05/24/24 History albuterol sulfate 90 mcg/actuation 2 puff inhalation Q4H PRN 01/13/24 Unknown Rx aerosol inhaler shortness of breath or wheezing #8.5 grams atorvastatin 80 mg tablet 80 mg PO QHS 30 days #30 tabs 01/13/24 07/02/24 Rx clopidogrel 75 mg tablet 75 mg PO DAILY 30 days #30 tabs 01/13/24 07/03/24 Rx metoprolol tartrate 50 mg tablet 50 mg PO BID #180 tabs 02/26/24 07/03/24 Rx spironolactone 25 mg tablet 25 mg PO DAILY #30 tabs 02/26/24 07/03/24 Rx amlodipine 5 mg tablet 5 mg PO 1200 04/12/24 07/03/24 History hydralazine 25 mg tablet 25 mg PO TID 04/12/24 07/03/24 History albuterol sulfate 2.5 mg/3 mL 2.5 mg inhalation Q4H PRN sob 07/03/24 Unknown History (0.083 %) solution for nebulization cholecalciferol (vitamin D3) 1,250 1,250 mcg PO WE 07/03/24 06/26/24 History mcg (50,000 unit) capsule ferrous sulfate 324 mg (65 mg 324 mg PO DAILY 07/03/24 07/03/24 History iron) tablet,delayed release metformin 500 mg tablet,extended 1,000 mg PO DAILY 07/03/24 07/03/24 History release 24 hr Allergy/AdvReac Type Severity Reaction Status Date / Time meperidine (From Demerol) AdvReac HYPOTENSION Verified 07/03/24 18:10 Sulfa (Sulfonamide AdvReac Abd Verified 07/03/24 18:10 Antibiotics) cramps/diarrhea Surgical History History of cardiac catheterization History of laparoscopy History of tonsillectomy History of hysterectomy History of History of appendectomy History of cholecystectomy Social History Smoking Status: Never smoker ROS ROS ED Constitutional Constitutional ED: Denies chills or fever(s) Eyes Eyes: Denies blurry vision or change in vision ENT ENT ED: Denies rhinorrhea or sore throat Cardiovascular Cardiovascular: Reports chest pain; Denies palpitations Respiratory/Chest Respiratory/Chest: Denies cough or dyspnea Gastrointestinal Gastrointestinal: Denies nausea or vomiting Genitourinary Genitourinary ED: Denies dysuria or hematuria Musculoskeletal Musculoskeletal: Reports neck pain; Denies back pain Integumentary Denies abscess or rash Neurologic Neurologic: Reports headache(s); Denies weakness Allergic/Immunologic Allergic/Immunologic ED: Denies mouth swelling or urticaria EXAM Physical Exam Const Vital Signs: 07/03/24 18:10 07/03/24 18:16 07/03/24 18:59 Temperature 97.9 F Temperature Source Oral Pulse Rate 107 H 102 H Respiratory Rate 17 13 Respiratory Effort Normal Non-Labored Blood Pressure 163/65 H Blood Pressure Mean 97 Pulse Ox 100 99 Oxygen Delivery Method Room Air 07/03/24 19:00 07/03/24 19:00 07/03/24 19:10 Temperature Temperature Source Pulse Rate 103 H 106 H Respiratory Rate 13 14 Respiratory Effort Blood Pressure 132/65 H 132/65 H Blood Pressure Mean 87 85 Pulse Ox 99 98 Oxygen Delivery Method Room Air Room Air 07/03/24 19:13 07/03/24 19:24 07/03/24 19:30 Temperature Temperature Source Pulse Rate 100 113 H 105 H Respiratory Rate 20 H 15 Respiratory Effort Blood Pressure 132/65 H 138/68 H 139/58 H Blood Pressure Mean 89 78 Pulse Ox 96 97 Oxygen Delivery Method 07/03/24 19:35 07/03/24 19:38 07/03/24 20:00 Temperature Temperature Source Pulse Rate 103 H 112 H 108 H Respiratory Rate 16 15 Respiratory Effort Blood Pressure 139/58 H 134/95 H 142/57 H Blood Pressure Mean 106 81 Pulse Ox 98 97 Oxygen Delivery Method 07/03/24 21:00 Temperature Temperature Source Pulse Rate 102 H Respiratory Rate 20 H Respiratory Effort Blood Pressure 145/71 H Blood Pressure Mean 95 Pulse Ox 96 Oxygen Delivery Method Positive well nourished and well developed Constitutional Narrative: BMI is 35.0 General Appearance ED: well developed and NAD HEENT Reports moist mucous membranes Neck supple and no JVD Chest Wall Chest: tenderness pectoral muscle left Resp normal respiratory effort and clear to auscultation bilaterally Cardio regular rate and regular rhythm GI soft to palpation, non-tender and non-distended Neuro oriented x3, CN's II-XII intact bilaterally and no sensory deficits noted Sensorium / Orientation: awake and alert Motor Exam: strength 5/5 throughout Psych mental status grossly normal Heart Score History: Slightly/Non-Suspicious ECG: Nonspecific Repolarization Age: >45 - <65 years Risk Factors: >/= 3 Risk Factors or History of CAD Troponin: </= Normal Limit Score: 4 MDM MDM MDM Narrative Medical decision making narrative: Differential diagnosis includes cardiac dysrhythmia, cardiac ischemia, pneumonia, bronchitis, electrolyte abnormality, pulmonary embolism, and musculoskeletal pain. EKG will be obtained to assess for cardiac dysrhythmia and cardiac ischemia. Chest x-ray will be obtained to assess for pneumonia and bronchitis. CBC will be obtained to assess for leukocytosis and anemia. Basic metabolic profile will be obtained to assess for electrolyte abnormality or renal function. D-dimer will be obtained to assess for pulmonary embolism. High-sensitivity troponin series will be obtained to assess for cardiac ischemia. PT with INR and PTT will be obtained to assess for coagulopathy. History & Record Review Additional record(s) reviewed:: Prior inpatient record, Prior ED visit and Prior labs Lab Data Attestation: I reviewed the patient's lab results. Lab results narrative: CBC was reviewed and was within normal limits. Basic metabolic profile was reviewed. Glucose was slightly elevated at 129. The remainder is within normal limits. PT with INR and PTT were reviewed and were within normal limits. D-dimer was reviewed and was less than 0.27. Initial high-sensitivity troponin was reviewed and was normal at 7. 2-hour repeat high-sensitivity troponin was reviewed and was less than 6. Labs: Laboratory Results - last 24 hr 07/03/24 07/03/24 18:50 20:56 WBC 6.8 RBC 4.61 Hgb 12.5 Hct 38.5 MCV 83.5 MCH 27.1 MCHC 32.5 RDW Std Deviation 53.6 H RDW Coeff of Jeison 18.0 H Plt Count 208 MPV 9.9 Immature Gran % (Auto) 0.300 Neut % (Auto) 47.7 Lymph % (Auto) 41.7 H [place] % (Auto) 7.5 Eos % (Auto) 2.4 Baso % (Auto) 0.4 Absolute Neuts (auto) 3.2 Absolute Lymphs (auto) 2.82 Nucleated RBC % 0 PT 12.4 INR 0.9 APTT 28.5 D-Dimer Quant (PE/DVT) < 0.27 L Sodium 142 Potassium 3.3 Chloride 108 Carbon Dioxide 21.2 Anion Gap 14 BUN 17 Creatinine 0.59 L Estim Creat Clear Calc 99.75 Est GFR (MDRD) Non-Af 101 BUN/Creatinine Ratio 28.0 H Glucose 129 H Calcium 9.3 Troponin T High Sens 7 Troponin T Hi Sens 2 Hr < 6 Radiography Chest X-Ray - ED: 1 View, Read by ED Physician, Read by Radiologist and No Acute Disease Diagnostic Testing: Clinical Impression(s) from Imaging Studies Chest X-Ray 07/03/24 19:00 IMPRESSION: No Acute Findings. Reading Location: [facility] Portable 1 view chest x-ray was obtained. On my independent interpretation, lung ricardo are clear. There is normal cardiac silhouette. Bony thorax is normal. There is no acute process noted. Radiologist also interpreted the x-ray and agrees. EKG Initial EKG: Attestation: I personally reviewed and interpreted this EKG as follows: Interpretation: Sinus Rhythm (98) and Non-Specific ST Changes Comments: EKG was obtained. On my independent interpretation, it showed a normal sinus rhythm with a rate of 98. KS interval, QRS interval, and QTc intervals were all normal. [place] was normal. There are nonspecific ST-T wave changes. Prior EKG tracings: available for review Prior: Unchanged (05/27/2024) Treatment and Re-Evaluation :: Patient was given aspirin and nitroglycerin by EMS. Patient was advised of her findings. Patient has a HEART score of 4. Patient had recent inpatient cardiac workup which included negative stress test. Because of this, I feel the patient is safe to be discharged home. Patient was instructed to follow-up with her primary care physician in 5 to 7 days for further evaluation. Patient understood and was agreeable with the plan. All questions were answered. Discharge Plan Triage Chief Complaint: Chest Pain ED Provider: Corey De Jesus Dx/Rx/DC Orders Clinical Impression: Chest pain, Hypertension Instructions: ED Chest Pain, Uncertain Cause Prescriptions: No Action metoprolol tartrate 50 mg tablet 50 mg PO BID Qty: 180 3RF tizanidine 2 mg tablet 2 mg PO QHS PRN (Reason: muscle spasticity) levothyroxine 25 mcg tablet 25 mcg PO DAILY methotrexate sodium 2.5 mg tablet 15 mg PO NEVILLE Patient Comments: takes it every Monday folic acid 1 mg tablet 1 mg PO DAILY Patient Comments: HASNT STARTED YET montelukast 10 mg tablet 10 mg PO QHS hydroxychloroquine 200 mg tablet 200 mg PO QHS ipratropium bromide 42 mcg (0.06 %) spray,non-aerosol 2 spray INTRANASAL TID PRN (Reason: sinus symptoms) Renflexis 100 mg recon soln IV .Q6W atorvastatin 80 mg Tablet 80 mg PO QHS 30 Days Qty: 30 0RF clopidogrel 75 mg Tablet 75 mg PO DAILY 30 Days Qty: 30 0RF albuterol sulfate 90 mcg/actuation HFA aerosol inhaler 2 puff inhalation Q4H PRN (Reason: shortness of breath or wheezing) Qty: 8.5 0RF hydralazine 25 mg tablet 25 mg PO TID amlodipine 5 mg tablet 5 mg PO 1200 Rx Instructions: 5 mg orally daily at noon; cholecalciferol (vitamin D3) 1,250 mcg (50,000 unit) capsule 1,250 mcg PO WE metformin 500 mg tablet extended release 24 hr 1,000 mg PO DAILY albuterol sulfate 2.5 mg /3 mL (0.083 %) solution for nebulization 2.5 mg inhalation Q4H PRN (Reason: sob) ferrous sulfate 324 mg (65 mg iron) tablet,delayed release (DR/EC) 324 mg PO DAILY spironolactone 25 mg tablet 25 mg PO DAILY Qty: 30 11RF Primary Care Provider: Paul Huston Referrals: Paul Huston MD [Primary Care Provider] - 5-7 Days Print Language: Japanese Disposition Disposition: Home, Self Care
--- NOTE | 2024-07-03 19:00 | RAD_ITS ---
PROCEDURE: CHEST 1 VIEW (PORTABLE) 07/03/2024 REASON FOR EXAM: CHEST PAIN TECHNIQUE: Frontal view of the chest. COMPARISON: 05/26/2024 FINDINGS: Hardware: Right internal jugular chest port which is unchanged. Heart: Heart size is moderately enlarged. Lungs: The lungs are clear. Bones: The bones are unremarkable. Other: RAD/Chest 1 View (Portable) IMPRESSION: No Acute Findings. Reading Location: [id number]
[2024-07-03] MEDS: Nitroglycerin SL (ED/IMG/CATH) 0.4 MG TABLET SL ×2 (19:13→19:35)
[2024-07-03 19:33] LABS: Absolute Lymphocyte Count 2.82 X10^3/uL (0.83-4.51); Absolute Neutrophil Count 3.2 X10^3/uL (2.0-7.7); Basophil# 0.03 X10^3/uL; Basophil% 0.4 % (0-1); Eosinophil# 0.16 X10^3/uL; Eosinophils% 2.4 % (0-5); Hematocrit 38.5 % (37-47); Hemoglobin 12.5 g/dL (12.0-15.0); Lymphocyte # 2.82 X10^3/ul (0.83-4.51); Lymphocyte % 41.7 % (19-41); Mean Corp Hgb Conc 32.5 g/dL (32-36); Mean Corpuscular Hgb 27.1 pg (27.0-32.0); Mean Corpuscular Volume 83.5 fL (81-99); Mean Platelet Vol. 9.9 fl (6.2-12.0); Monocyte# 0.51 X10^3/uL; Monocyte% 7.5 % (0-10); NRBC Flagged by Analyzer 0 % (0-5); Neutrophil # 3.22 X10^3/uL (2.7-7.7); Neutrophil % 47.7 % (47-70); Platelet Count 208 K/mm3 (150-450); RBC Distribution Width SD 53.6 fl (35.1-43.9); Red Blood Count 4.61 M/mm3 (4.2-5.4); White Blood Count 6.8 K/mm3 (4.4-11.0)
[2024-07-03 20:07] LABS: Anion Gap 14 (5-15); BUN 17 mg/dL (4-19); Calcium,Total 9.3 mg/dL (7.6-11.0); Carbon Dioxide 21.2 mmol/L (21.0-32.0); Chloride 108 mmol/L (98-108); Creatinine, Serum 0.59 mg/dL (0.70-1.20); EST Glomerular Filtration Rate 101 (>60); Estimated Creatinine Clearance 99.75 ml/min (50-250); Glucose 129 mg/dL (70-99); Potassium 3.3 mmol/L (3.3-5.1); Sodium Level 142 mmol/L (133-145); Troponin T High Sensitivity 7 ng/L (<=14)
[2024-07-03 20:18] LABS: International Normalized Ratio 0.9; Partial Thromboplast Time 28.5 Seconds (24.1-36.2); Prothrombin Time (Protime)PT. 12.4 SECONDS (11.7-14.9)
[2024-07-03 20:35] LABS: D-Dimer Quantitative (DVT/PE) < 0.27 FEU/ug/m (0.27-0.49)
[2024-07-03 21:38] LABS: Troponin T High Sens 2 HR < 6 ng/L (<=14)
== END 2024-07-03 22:13 | disposition home or self-care (01) ==
PROVIDERS: Emergency Provider Emergency Medicine; PCP Family Medicine; Visit Provider Emergency Medicine
DX: R07.9 Chest pain, unspecified (principal); E11.9 Type 2 diabetes mellitus without complications; I10 Essential (primary) hypertension; I25.2 Old myocardial infarction; E78.00 Pure hypercholesterolemia, unspecified; E03.9 Hypothyroidism, unspecified; Z79.02 Long term (current) use of antithrombotics/antiplatelets; Z79.84 Long term (current) use of oral hypoglycemic drugs; Z79.890 Hormone replacement therapy; Z79.899 Other long term (current) drug therapy
CPT/HCPCS: 71045; 80048; 84484; 85025; 85379; 85610; 85730; 93005; 99285; A4216

== ENCOUNTER 2024-07-25 19:02 | Emergency (ER) | payer OTHER, SELFPAY ==
[2024-07-25 19:03] VITALS: BP 188/96; PULSE 105; RESP 20; TEMP 36.8; O2SAT 100; BMI 34.7
--- NOTE | 2024-07-25 19:18 | EKG12_ITS ---
Test Reason : CP Blood Pressure : */* mmHG Vent. Rate : 92 BPM Atrial Rate : 92 BPM P-R Int : 184 ms QRS Dur : 82 ms QT Int : 394 ms P-R-T Axes : * 23 67 degrees QTcB Int : 487 ms Normal sinus rhythm Nonspecific ST and T wave abnormality Abnormal ECG Confirmed by STANLEY DORMAN, ROSIE ([id number]), brands editor BENY HARRISON ([id number]) on 07/30/2024 6:54:28 AM Referred By: Confirmed By: ROSIE ANGEL MD
--- NOTE | 2024-07-25 19:27 | EKG12_ITS ---
Test Reason : CP Blood Pressure : */* mmHG Vent. Rate : 102 BPM Atrial Rate : 102 BPM P-R Int : 150 ms QRS Dur : 82 ms QT Int : 374 ms P-R-T Axes : 56 17 71 degrees QTcB Int : 487 ms Sinus tachycardia Nonspecific ST abnormality Abnormal ECG Confirmed by STANLEY DORMAN, ROSIE ([id number]), editorial project manager BENY HARRISON ([id number]) on 07/30/2024 6:54:15 AM Referred By: Confirmed By: ROSIE ANGEL MD
--- NOTE | 2024-07-25 19:27 | ED.VIS.CHEST ---
HPI History of Present Illness Chief Complaint: Chest Pain Detail of Chief Complaint: Chest pressure, shortness of breath, nausea and lightheadedness Informant: patient Onset/Context/Timing Onset: Today and Hours Activity at onset: sudden and light activity (Washing the dishes) Timing: Continuous Quality: Positive for Pressure Location: Substernal Current Severity: Mild Maximum Severity: Severe (Developed severe discomfort in the department after first EKG. Second was ordered) Worsened By: Nothing Relieved By: Nothing Associated Symptoms: Positive for Nausea, Dyspnea, Lightheadedness and - (Pallor per neighbor); Negative for Vomiting, Diaphoresis, Cough, Fever, Acid Reflux or Palpitations Narrative Narrative: Patient is a 63-year-old woman. She has history of lung disease, iron deficiency anemia, rheumatoid arthritis, type 2 diabetes, hypertension who presents because of pressure sensation in mid chest while doing the dishes. She was in the kitchen for approximately 20 minutes. She developed chest discomfort with shortness of breath, pallor, lightheadedness, and nausea. She states that she had a weird sensation start from her hairline down to her feet. Her feet are still numb. She denies history of diabetic neuropathy. She denies history of coronary artery disease. She denies black or maroon-colored stool. She does not have history of reflux or peptic ulcer disease. She denies history of VTE. She has no risk factors for VTE. She denies leg pain, swelling or discoloration. She denies any recent infectious symptoms. As I was exiting the room she developed severe heaviness in her chest. Repeat EKG was obtained. Prior Similar Symptoms: No (She had a prior NH. She states she does not recall if she had heaviness in her chest. She states she felt terrible at the time.) Recent Illness/Hospitalization: No CVD Risk Factors: Positive for Hypertension, Diabetes and - (Coronary artery disease) PE Risk Factors: Negative for Recent Travel/Surgery, Recent Immobilization, Prior DVT or PE, Cancer or OCP + Smoking + >/=35 TAD Risk Factors: Positive for Hypertension; Negative for Marfan's Syndrome or Family History [facility] Medical History Chest pain Wears partial dentures Wears glasses Thyroid disease Rheumatoid arthritis High cholesterol Dietary restriction History of rheumatic fever Non-smoker History of echocardiogram Cardiology follow-up encounter Anemia Hypothyroidism Diabetes Migraines Hypertension Arthritis Asthma Diabetes mellitus, type 2 Obesity (BMI 30.0-34.9) NSTEMI, initial episode of care Rheumatoid arthritis Home Medications ?Medication ?Instructions ?Recorded ?Last Taken ?Type folic acid 1 mg tablet 1 mg PO DAILY 01/11/24 07/03/24 History hydroxychloroquine 200 mg tablet 200 mg PO QHS 01/11/24 07/02/24 History infliximab-abda 100 mg intravenous IV .Q6W RA 01/11/24 06/04/24 History solution (Renflexis) ipratropium bromide 42 mcg (0.06 2 spray intranasal TID PRN sinus 01/11/24 05/27/24 History %) nasal spray symptoms levothyroxine 25 mcg tablet 25 mcg PO DAILY 01/11/24 07/03/24 History methotrexate sodium 2.5 mg tablet 15 mg PO NEVILLE RA 01/11/24 06/30/24 History montelukast 10 mg tablet 10 mg PO QHS 01/11/24 07/02/24 History tizanidine 2 mg tablet 2 mg PO QHS PRN muscle spasticity 01/11/24 05/24/24 History albuterol sulfate 90 mcg/actuation 2 puff inhalation Q4H PRN 01/13/24 Unknown Rx aerosol inhaler shortness of breath or wheezing #8.5 grams atorvastatin 80 mg tablet 80 mg PO QHS 30 days #30 tabs 01/13/24 07/02/24 Rx clopidogrel 75 mg tablet 75 mg PO DAILY 30 days #30 tabs 01/13/24 07/03/24 Rx metoprolol tartrate 50 mg tablet 50 mg PO BID #180 tabs 02/26/24 07/03/24 Rx spironolactone 25 mg tablet 25 mg PO DAILY #30 tabs 02/26/24 07/03/24 Rx amlodipine 5 mg tablet 5 mg PO 1200 04/12/24 07/03/24 History hydralazine 25 mg tablet 25 mg PO TID 04/12/24 07/03/24 History albuterol sulfate 2.5 mg/3 mL 2.5 mg inhalation Q4H PRN sob 07/03/24 Unknown History (0.083 %) solution for nebulization cholecalciferol (vitamin D3) 1,250 1,250 mcg PO WE 07/03/24 06/26/24 History mcg (50,000 unit) capsule ferrous sulfate 324 mg (65 mg 324 mg PO DAILY 07/03/24 07/03/24 History iron) tablet,delayed release metformin 500 mg tablet,extended 1,000 mg PO DAILY 07/03/24 07/03/24 History release 24 hr Allergy/AdvReac Type Severity Reaction Status Date / Time meperidine (From Demerol) AdvReac HYPOTENSION Verified 07/25/24 19:03 Sulfa (Sulfonamide AdvReac Abd Verified 07/25/24 19:03 Antibiotics) cramps/diarrhea Surgical History History of cardiac catheterization History of laparoscopy History of tonsillectomy History of hysterectomy History of History of appendectomy History of cholecystectomy Social History Smoking Status: Never smoker ROS ROS ED Constitutional Constitutional ED: Denies chills, fever(s), subjective or sweats Eyes Eyes: Reports none ENT ENT ED: Denies ear pain, rhinorrhea or sore throat Cardiovascular Cardiovascular: Reports as per HPI; Denies orthopnea, palpitations, paroxysmal nocturnal dyspnea or racing heartbeat Respiratory/Chest Respiratory/Chest: Reports dyspnea; Denies cough, dyspnea on exertion, orthopnea or paroxysmal nocturnal dyspnea Gastrointestinal Gastrointestinal: Reports nausea; Denies abdominal pain, constipation, diarrhea, melena or vomiting Musculoskeletal Musculoskeletal: Denies arthralgias, back pain, myalgias or neck pain Integumentary Denies rash Neurologic Neurologic: Reports paresthesias Psychiatric Psychiatric: Reports anxiety; Denies depression Hematologic/Lymphatic Hematologic/Lymphatic: Reports other Details: Patient is on Plavix. ; Denies easy bleeding or easy bruising EXAM Physical Exam Const Vital Signs: 07/25/24 19:03 07/25/24 19:08 07/25/24 20:03 Temperature 98.2 F Temperature Source Oral Pulse Rate 105 H 92 Respiratory Rate 20 H 15 Respiratory Effort Non-Labored Blood Pressure 188/96 H 148/74 H Blood Pressure Mean 126 98 Pulse Ox 100 98 Oxygen Delivery Method Room Air 07/25/24 20:03 07/25/24 21:00 07/25/24 22:19 Temperature Temperature Source Pulse Rate 85 80 Respiratory Rate 20 H 16 Respiratory Effort Blood Pressure 145/81 H 132/66 H Blood Pressure Mean 102 88 Pulse Ox 99 98 99 Oxygen Delivery Method Room Air Positive well nourished and well developed Constitutional Narrative: BMI is 34.8. General Appearance ED: well developed and NAD; Negative for pallor HEENT Reports moist mucous membranes normocephalic and atraumatic Eyes PERRL and EOMs intact bilaterally General Eye ED: Negative for pale conjunctiva or scleral icterus Neck no lymphadenopathy, supple and no JVD Resp normal respiratory effort and clear to auscultation bilaterally Resp Narrative: There is no pain to palpation. Effort and Inspection: Negative for pain with movement Cardio regular rate, regular rhythm, S1 normal heart sound, S2 normal heart sound and no murmurs GI normal to inspection, nondistended, normoactive bowel sounds, soft to palpation, non-tender, non-distended and no masses; Negative for hepatosplenomegaly Back/Spine no CVA tenderness Extremity normal to inspection Extremity Narrative: There is no discoloration, asymmetry, leg vein distention, palpable cords tenderness on the distribution deep venous system. General Extremety ED: Negative for edema, pulses abnormal or tenderness General Extremity: Negative for edema or pulses abnormal Neuro oriented x3, CN's II-XII intact bilaterally and no sensory deficits noted Sensorium / Orientation: awake and alert Psych mental status grossly normal Skin Skin Narrative: Patient has a blanching generalized erythematous rash. Patient states she has not been out in the sun. Person with her states she is normally very pale. General Skin Exam: Negative for jaundice or pallor MDM MDM MDM Narrative Medical decision making narrative: Patient with chest pressure radiation to shoulders jaw back with nausea pallor shortness of breath need to evaluate for cardiac etiology. Noncardiac etiology would include esophageal spasm, possible reflux. Suspect her total body paresthesia may have been due to her feeling anxious and may be hyperventilating. Her prior records were reviewed. She was seen July [address] Corey Schuster for chest pain. She was discharged to home at that time. She was admitted in May of this year for chest pain. Patient was seen in May and admitted. Dr. Isael Ragsdale's discharge note was reviewed. Primary diagnosis at time of discharge was for skeletal chest pain. She also had demand ischemia unclear etiology. During that stay she did have a nuclear stress test that revealed no evidence of reversible ischemic changes. Which raises question regarding secondary diagnosis of demand ischemic etiology uncertain. There was a delay in entering laboratory studies. I was distracted because of making arrangements for a critical patient. History & Record Review Additional record(s) reviewed:: Prior inpatient record, Prior ED visit and Prior labs Lab Data Attestation: I reviewed the patient's lab results. Lab results narrative: CBC is unremarkable. Basic metabolic panel was unremarkable. Glucose is 182 oh with a normal CO2 anion gap. First troponin was less than 6. Second troponin was less than 6. Therefore patient be discharged to home. As noted in the medical record she had a recent nuclear stress that was negative. Labs: Laboratory Results - last 24 hr 07/25/24 07/25/24 19:38 21:36 WBC 7.2 RBC 4.63 Hgb 12.5 Hct 38.8 MCV 83.8 MCH 27.0 MCHC 32.2 RDW Std Deviation 51.9 H RDW Coeff of Jeison 17.1 H Plt Count 192 MPV 10.2 Immature Gran % (Auto) 0.400 Neut % (Auto) 55.7 Lymph % (Auto) 34.6 Alpine % (Auto) 6.6 Eos % (Auto) 2.4 Baso % (Auto) 0.3 Absolute Neuts (auto) 4.0 Absolute Lymphs (auto) 2.48 Nucleated RBC % 0 Sodium 142 Potassium 3.2 L Chloride 106 Carbon Dioxide 21.1 Anion Gap 15 BUN 9 Creatinine 0.66 L Estim Creat Clear Calc 88.89 Est GFR (MDRD) Non-Af 98 BUN/Creatinine Ratio 13.0 Glucose 182 H Calcium 9.3 Troponin T High Sens < 6 D Troponin T Hi Sens 2 Hr < 6 Radiography Chest X-Ray - ED: 1 View, Read by ED Physician (2031. There is a port noted on the right side.), Normal, Heart, Lungs, Mediastinum, Bony Structures and No Acute Disease Diagnostic Testing: Clinical Impression(s) from Imaging Studies Chest X-Ray 07/25/24 20:20 IMPRESSION: Linear opacity at the right mid lung zone could be the result of infection or atelectasis. Reading Location: [id number] Discharge Plan Triage Chief Complaint: Chest Pain ED Provider: Rosario,Ranjit Dx/Rx/DC Orders Clinical Impression: Chest pressure, Hypertension, Anemia, Shortness of breath Instructions: ED Chest Pain, Noncardiac, ED Chest Pain, Uncertain Cause Prescriptions: No Action metoprolol tartrate 50 mg tablet 50 mg PO BID Qty: 180 3RF tizanidine 2 mg tablet 2 mg PO QHS PRN (Reason: muscle spasticity) levothyroxine 25 mcg tablet 25 mcg PO DAILY methotrexate sodium 2.5 mg tablet 15 mg PO NEVILLE Patient Comments: takes it every Monday folic acid 1 mg tablet 1 mg PO DAILY Patient Comments: HASNT STARTED YET montelukast 10 mg tablet 10 mg PO QHS hydroxychloroquine 200 mg tablet 200 mg PO QHS ipratropium bromide 42 mcg (0.06 %) spray,non-aerosol 2 spray INTRANASAL TID PRN (Reason: sinus symptoms) Renflexis 100 mg recon soln IV .Q6W atorvastatin 80 mg Tablet 80 mg PO QHS 30 Days Qty: 30 0RF clopidogrel 75 mg Tablet 75 mg PO DAILY 30 Days Qty: 30 0RF albuterol sulfate 90 mcg/actuation HFA aerosol inhaler 2 puff inhalation Q4H PRN (Reason: shortness of breath or wheezing) Qty: 8.5 0RF hydralazine 25 mg tablet 25 mg PO TID amlodipine 5 mg tablet 5 mg PO 1200 Rx Instructions: 5 mg orally daily at noon; cholecalciferol (vitamin D3) 1,250 mcg (50,000 unit) capsule 1,250 mcg PO WE metformin 500 mg tablet extended release 24 hr 1,000 mg PO DAILY albuterol sulfate 2.5 mg /3 mL (0.083 %) solution for nebulization 2.5 mg inhalation Q4H PRN (Reason: sob) ferrous sulfate 324 mg (65 mg iron) tablet,delayed release (DR/EC) 324 mg PO DAILY spironolactone 25 mg tablet 25 mg PO DAILY Qty: 30 11RF Primary Care Provider: Paul Huston Referrals: Paul Huston MD [Primary Care Provider] - 3-5 Days Print Language: Swazi Disposition Disposition: Home, Self Care
[2024-07-25 20:03] VITALS: BP 148/74; PULSE 92; RESP 15; O2SAT 98; O2SAT 99
[2024-07-25] MEDS: Aspirin 81 MG TAB.CHEW 324 MG PO (20:07)
[2024-07-25 20:14] LABS: Absolute Lymphocyte Count 2.48 X10^3/uL (0.83-4.51); Basophil# 0.02 X10^3/uL; Basophil% 0.3 % (0-1); Eosinophil# 0.17 X10^3/uL; Eosinophils% 2.4 % (0-5); Hematocrit 38.8 % (37-47); Hemoglobin 12.5 g/dL (12.0-15.0); Lymphocyte # 2.48 X10^3/ul (0.83-4.51); Lymphocyte % 34.6 % (19-41); Mean Corp Hgb Conc 32.2 g/dL (32-36); Mean Corpuscular Volume 83.8 fL (81-99); Mean Platelet Vol. 10.2 fl (6.2-12.0); Monocyte# 0.47 X10^3/uL; Monocyte% 6.6 % (0-10); NRBC Flagged by Analyzer 0 % (0-5); Neutrophil # 3.99 X10^3/uL (2.7-7.7); Neutrophil % 55.7 % (47-70); Platelet Count 192 K/mm3 (150-450); RBC Distribution Width CV 17.1 % (11.6-14.6); RBC Distribution Width SD 51.9 fl (35.1-43.9); Red Blood Count 4.63 M/mm3 (4.2-5.4); White Blood Count 7.2 K/mm3 (4.4-11.0)
--- NOTE | 2024-07-25 20:20 | RAD_ITS ---
PROCEDURE: CHEST 1 VIEW (PORTABLE) 07/25/2024 REASON FOR EXAM: CHEST PAIN TECHNIQUE: Frontal view of the chest. COMPARISON: Chest radiograph 07/04/2019 FINDINGS: Hardware: Right chest port with tip terminating near the right atrium, unchanged. Heart: Cardiac and mediastinal contours are stable. Lungs: There is linear opacity present at the right mid lung zone. No significant pleural effusion. Bones: Degenerative changes are identified within the thoracic spine. RAD/Chest 1 View (Portable) IMPRESSION: Linear opacity at the right mid lung zone could be the result of infection or a telectasis. Reading Location: [id number]
[2024-07-25 20:34] LABS: Anion Gap 15 (5-15); BUN 9 mg/dL (4-19); Calcium,Total 9.3 mg/dL (7.6-11.0); Carbon Dioxide 21.1 mmol/L (21.0-32.0); Chloride 106 mmol/L (98-108); Creatinine, Serum 0.66 mg/dL (0.70-1.20); EST Glomerular Filtration Rate 98 (>60); Estimated Creatinine Clearance 88.89 ml/min (50-250); Glucose 182 mg/dL (70-99); Potassium 3.2 mmol/L (3.3-5.1); Sodium Level 142 mmol/L (133-145); Troponin T High Sensitivity < 6 ng/L (<=14)
[2024-07-25 21:00] VITALS: BP 145/81; PULSE 85; RESP 20; O2SAT 98
[2024-07-25 21:58] LABS: Troponin T High Sens 2 HR < 6 ng/L (<=14)
[2024-07-25 22:19] VITALS: BP 132/66; PULSE 80; RESP 16; O2SAT 99
[2024-07-25 22:24] VITALS: BP 132/66; PULSE 99; RESP 18; TEMP 36.6; O2SAT 99
== END 2024-07-25 22:39 | disposition home or self-care (01) ==
PROVIDERS: Emergency Provider Emergency Medicine; PCP Family Medicine; Visit Provider Emergency Medicine
DX: R07.89 Other chest pain (principal); E11.9 Type 2 diabetes mellitus without complications; D50.9 Iron deficiency anemia, unspecified; R06.02 Shortness of breath; I25.10 Atherosclerotic heart disease of native coronary artery without angina pectoris; I10 Essential (primary) hypertension; I25.2 Old myocardial infarction; E66.9 Obesity, unspecified; Z68.34 Body mass index [BMI] 34.0-34.9, adult; Z79.02 Long term (current) use of antithrombotics/antiplatelets; Z79.84 Long term (current) use of oral hypoglycemic drugs; Z79.899 Other long term (current) drug therapy
CPT/HCPCS: 36591; 71045; 80048; 84484; 85025; 93005; 99285; A4216

== ENCOUNTER 2024-08-06 13:22 | Outpatient (CLI) | payer OTHER, SELFPAY ==
[2024-08-06 15:03] LABS: Anion Gap 11 (5-15); BUN 14 mg/dL (4-19); BUN/Creat Ratio 20.3 RATIO (10-20); Calcium,Total 9.2 mg/dL (7.6-11.0); Carbon Dioxide 23.8 mmol/L (21.0-32.0); Chloride 106 mmol/L (98-108); Creatinine, Serum 0.67 mg/dL (0.70-1.20); EST Glomerular Filtration Rate 98 (>60); Glucose 231 mg/dL (70-99); Potassium 3.5 mmol/L (3.3-5.1); Sodium Level 141 mmol/L (133-145)
--- OUTSIDE RECORDS SUMMARY | 2024-08-06 21:50 | XMS RPT_ITS | CCD ---
Author Organization [facility] Care Team Providers Care Sports Medicine Specialist Name Role Phone Edis Trejo Primary Care Provider ROBERT FARIAS Referring Unavailable EDIS TREJO Primary Care Unavailable Edis Trejo DO Primary Care Provider [phone] Edis Trejo DO Primary Care Provider [phone] DO Alisa Escobar Primary Care Provider [phone] DO Alisa Escobar Referring Provider DO Alisa Escobar Other Provider Dr. Morgan Duarte Attending Provider Edis Trejo DO Primary Care Provider [phone] Edis Trejo DO Primary Care Provider [phone] Paul Greco MD Primary Care Provider Paul Greco MD Primary Care Provider Dr. Jose Mondragon MD Attending Provider Dr. Jose Mondragon MD Referring Provider Roof UNIT SECRETARY-CXiang Attending Provider Roof UNIT SECRETARY-CXiang Referring Provider Paul Greco MD Referring Provider Andressa Wasserman Attending Provider Paul Greco MD Attending Provider Dr. Gustabo العلي DO Attending Provider Dr. Gustabo العلي DO Emergency Provider [phone] Ana Rosa Hardin Attending Provider Ana Rosa Hardin Referring Provider Zurdo Polo MD Attending Provider Zurdo Polo MD Emergency Provider Anne-Marie SHETH, Dr. Rogers Attending Provider Anne-Marie SHETH, Dr. Rogers Other [facility] DO Attending Unavailable PHYSICIAN, NOT RECORDED Primary Care Unavaila kelvin Greco MD, Paul Primary Care Provider Giancarlo DORMAN, Dr. Garcia Attending Provider Giancarlo DORMAN, Dr. Garcia Referring Provider Hubert DORMAN, Dr. Natalie Higuera Admit Provider Hubert DORMAN, Dr. Natalie Higuera Other Provider Felisha SHETH, Dr. Kirkland Attending Provider Hubert DORMAN, Dr. Natalie Higuera Attending Provider Felisha SHETH, Dr. Kirkland Other Provider Petar DORMAN, Dr. Bowman Attending Provider Angus DORMAN, Paul Primary Care Provider Paul Greco MD Referring Provider Andressa Wasserman Attending Provider Ana Rosa Hardin Attending Provider Dr. Corey DeJ esus DO Attending Provider Dr. Corey De Jesus DO Emergency Provider Dr. Ranjit Rosario MD Emergency Provider Ambreen Hoffmann Attending Provider Paul Greco Primary Care Unavailable Zeke Silva Referring Unavailable Colby Davey Attending Unavailable White, Natalie L Consulting Unavailable White Natalie L Attending Unavailable Hubert Natalie L Admitting Unavailable Paul Greco Primary Care Unavailable White, Natalie L Consulting Unavailable White, Natalie L Admitting Unavailable Petar, Lucinda Attending Unavailable Angus, Chalon Primary Care Unavailable Isael Baeza Consulting Unavailable Angus, Chalon Referring Unavailable Angus, Chalon Primary Care Unavailable Andressa Haney Attending Unavailable BelalAntolin Attending Unavailable Angus, Chalon Primary Care Unavailable Giancarlo, Jose Attending Unavailable Angus, Chalon Primary Care Unavailable Giancarlo, Jose Referring Unavailable Giancarlo, Jose Attending Unavailable Angus, Chalon Primary Care Unavailable Giancarlo, Jose Attending Unavailable Giancarlo, Jose Referring Unavailable Angus, Chalon Primary Care Unavailable Angus, Chalon Primary Care Unavailable Angus, Chalon Referring Unavailable Ken Xie Attending Unavailable Angus, Chalon Referring Unavailable Azra RONDON, Ana Rosa Vivar Attending Unavail able Angus, Chalon Primary Care Unavailable Angus, Chalon Referring Unavailable Ambreen Delaney NP Attending Unavailable Angus, Chalon Primary Care Unavailable Natalie Gaspar Attending Unavailable Angus, Chalon Primary Care Unavailable Zeke Silva Admitting Unavailable Zeke Silva Consulting Unavailable Rylieal, Antolin Consulting Unavailable Natalie Gaspar Consulting Unavailable Zeke Silva Attending Unavailable Angus, Chalon Referring Unavailable Angus, Chalon Attending Unavailable Angus, Chalon Primary Care Unavailable Angus, Chalon Primary Care Unavailable Angus, Chalon Attending Unavailable Angus, Chalon Referring Unavailable Angus, Chalon Primary Care Unavailable Andressa Haney Attending Unavailable Ana Rosa Hardin Attending Unavail able Ana Rosa Hardin Referring Unavail able Angus, Chalon Primary Care Unavailable Angus, Chalon Referring Unavailable Angus, Chalon Primary Care Unavailable Andressa Haney Attending Unavailable Angus, Chalon Referring Unavailable Ana Rosa Hardin Attending Unavail able Angus, Chalon Primary Care Unavailable Angus, Chalon Primary Care Unavailable Nagus, Chalon Referring Unavailable Andressa Haney Attending Unavailable Angus, Chalon Referring Unavailable Angus, Chalon Primary Care Unavailable Ken Xie Consulting Unavailable FriendeKn Attending Unavailable WhiteNatalie Consulting Unavailable WhiteNatalie L Admitting Unavailable Isael Baeza Attending Unavailable Angus, Chalon Primary Care Unavailable Natalie Gaspar Attending Unavailable Zeke Silva Admitting Unavailable Angus, Chalon Primary Care Unavailable Zeke Silva Consulting Unavailable Belal, Phillipk Consulting Unavailable Rosario, Ranjit Attending Unavailable Angus, Chalon Primary Care Unavailable Angus, Chalon Primary Care Unavailable Reshaylee, Zurdo Attending Unavailable Corey De Jesus Attending Unavailable Angus, Chalon Primary Care Unavailable Angus, Chalon Primary Care Unavailable Gustabo العلي Attending Unavailable Roof UNIT SECRETARY, Xiang H Attending Unavailable Roof UNIT SECRETARY, Xiang H Referring Unavailable Angus, Chalon Primary Care Unavailable Giancarlo, Jose Attending Unavailable Giancarlo, Jose Referring Unavailable Angus, Chalon Primary Care Unavailable Giancarlo, Jose Referring Unavailable Giancarlo, Jose Attending Unavailable Angus, Chalon Primary Care Unavailable Giancarlo, Jose Referring Unavailable Giancarlo, Jose Attending Unavailable Angus, Chalon Primary Care Unavailable FARIAS, INDERPRIT Referring Unavailable ANGUS, CHALON Primary Care Unavailable FARIAS, INDERPRIT Attending Unavailable FARIAS, INDERPRIT Referring Unavailable ANGUS, CHALON Primary Care Unavailable FARIAS, INDERPRIT Referring Unavailable ANGUS, CHALON Primary Care Unavailable FARIAS, INDERPRIT Referring Unavailable ANGUS, CHALON Primary Care Unavailable FARIAS, INDERPRIT Referring Unavailable ANGUS, CHALON Primary Care Unavailable FARIAS, INDERPRIT Attending Unavailable FARIAS, INDERPRIT Referring Unavailable ANGUS, CHALON Primary Care Unavailable FARIAS, INDERPRIT Referring Unavailable MAYA, EDIS F Primary Care Unavailable FARIAS, INDERPRIT Referring Unavailable MAYA, EDIS F Primary Care Unavailable FARIAS, INDERPRIT Attending Unavailable FARIAS, INDERPRIT Referring Unavailable ANGUS, CHALON Primary Care Unavailable FARIAS, INDERPRIT Referring Unavailable ANGUS, CHALON Primary Care Unavailable Allergies Allergy Classification Reported Allergen(s) Allergy Type Date of Onset Reaction(s) Facility Opioid Agonists (9 sources) Meperidine Drug Allergy 1 Other: See Comments [facility] Sulfonamides (antibiotic) (9 sources) Sulfonamides (Antibiotic) Drug Allergy 1 GI Upset [facility] (20 sources) Meperidine; Translations: [MEPERIDINE] Drug Allergy 1 Other: See Comments [facility] (20 sources) Sulfonamides (Antibiotic); Translations: [SULFA (SULFONAMIDE ANTIBIOTICS)] Drug Allergy 1 GI Upset [facility] (3 sources) Sulfonamides (Antibiotic) Propensity to adverse reactions 5 Abd cramps/diarrhea [facility] (1 source) Meperidine Drug Allergy 5 [facility] (1 source) Sulfonamides (Antibiotic) Drug allergy (disorder) 5 [facility] Medications Current Medications Medication Drug Class(es) Dates Sig (Normalized) Sig (Original) 0.8 ml adalimumab 50 mg/ml auto-injector (2 sources) Tumor Necrosis Factor Fahad Start: 07-20-2021 End: 01-16-2022 inject 0.8 mL by subcutaneous injection every other week Adalimumab (HUMIRA PEN) 40 mg/0.8 mL Indications: Rheumatoid arthritis involving both hands with positive rheumatoid factor (HCC) Inject 0.8 mL subcutaneously every other week. 6 Each 1 07/20/2021 01/16/2022 Active Comment on above: Inject 0.8 mL subcutaneously every other week. albuterol 0.83 mg/ml inhalation solution (20 sources) beta2-Adrenergic Agonist Start: 01-13-2024 End: 07-03-2024 take 2.5 mg by inhalation every four hours as needed Albuterol Sulfate 2.5 mg /3 mL (0.083 %) solution for nebulization Active 2.5 mg INHALATION Q4H as needed for sob July 03, 2024 12:00am Start: 01-13-2024 Albuterol Sulf ate 90 mcg/actuation HFA aerosol inhaler Active 2 NMA INHALATION Q4H as needed for shortness of breath or wheezing 8.5 January 13, 2024 12:51pm Start: 01-11-2024 End: 01-13-2024 Albuterol Sulfate 2.5 mg /3 mL (0.083 %) solution for nebulization Discontinued 1 INHALATION DAILY NEEDED as needed for sob January 11, 2024 1:00am January 13, 2024 12:51pm Start: 01-11-2024 End: 01-13-2024 Albuterol Sulfate 90 mcg/act uation HFA aerosol inhaler Discontinued 1 NMA INHALATION EVERY 6 HOURS NEEDED as needed for shortness of breath or wheezing January 11, 2024 1:00am January 13, 2024 12:51pm Start: 05-22-2020 take 1 puff(s) by mo uth every six hours as needed albuterol HFA (PROVENTIL HFA, VENTOLIN HFA) 90 mcg/actuation inhaler INHALE 1 PUFF BY MOUTH EVERY 6 HOURS NEEDED 05/22/2020 Active Comment on above: INHALE 1 PUFF BY PARTH TH EVERY 6 HOURS NEEDED atorvastatin 80 mg oral tablet (16 sources) HMG-CoA Reductase Inhibitor Start: 01-13-20 take 1 tablet by mouth at bedtime Atorvastatin 80 mg Tablet Active 80 mg PO AT BEDTIME January 13, 2024 1:00am cholecalciferol 1.25 mg oral capsule (5 sources) Vitamin D Start: 07-04-19 End: 07-04-19 take 1 capsule by mouth every week Cholecalciferol (Vitamin D3) 1,250 mcg (50,000 unit) capsule Discontinued 1250 ug PO EVERY WEEK July 03, 2024 12:00am July 03, 2024 7:57pm Start: 02-09-2024 End: 02-26-2024 take 1 capsule by mouth every week Cholecalciferol (Vitamin D3) 1,250 mcg (50,000 unit) capsule Discontinued 1250 ug PO EVERY WEEK February 09, 2024 1:00am February 26, 2024 10:15am clopidogrel 75 mg oral tablet (16 sources) [id number] Platelet Inhibitor Start: 01-13-2024 take 1 tablet by mouth once daily Clopidogrel 75 mg Tablet Active 75 mg PO DAILY January 13, 2024 1:00am ferrous sulfate 324 mg delayed release oral tablet (17 sources) Start: 04-30-2024 End: 07-03-2024 take 1 tablet by mouth once daily Ferrous Sulfate 324 mg (65 mg iron) tablet,delayed release (DR/EC) Active 324 mg PO DAILY July 03, 2024 12:00am take 1 tablet by mouth once cindy y ferrous sulfate (IRON) 325 mg (65 mg iron) tablet Take 325 mg by mouth once daily. Active folic acid 1 mg oral tablet (20 sources) Start: 02-17-2021 End: 04-10-2024 take 1 tablet by mouth once daily Folic Acid 1 mg tablet Active 1 mg PO DAILY January 11, 2024 1:00am Start: 07-26-2016 folic acid 1 m g tablet folic acid 1 mg tablet 0 07/26/2016 Active Comment on above: folic acid 1 mg tabl et TAKE 1 TABLET BY PARTH TH EVERY DAY Take 1 tablet by parth th once daily. Infliximab-Abda (Renflexis) 100 mg recon soln (3 sources) Start: 01-11-20 Infliximab-Abda (Renflexis) 100 mg recon soln Active IV .Q6W January 11, 2024 1:00am levothyroxine sodium 0.025 mg oral tablet (20 sources) l-Thyroxine Start: 05-23-19 take 1 tablet by mouth once daily Levothyroxine 25 mcg tablet Active 25 ug PO DAILY January 11, 2024 1:00am Comment on above: Take 25 mcg by mouth once daily. lidocaine 25 mg/ml / prilocaine 25 mg/ml topical cream (20 sources) Antiarrhythmic, Amide Local Anesthetic Start: 09-29-19 lidocaine-prilocaine 2.5-2.5 % (EMLA) losartan potassium 25 mg oral tablet (1 source) Angiotensin 2 Receptor Afhad Start: 07-31-19 take 1 tablet by mouth twice daily Losartan 25 mg tablet Active 25 mg PO TWICE A DAY 60 July 30, 2024 12:00am methotrexate 2.5 mg oral tablet (20 sources) Folate Analog Metabolic Inhibitor Start: 02-05-20 End: 08-04-19 25 take 6 tablets by mouth every week methotrexate 2.5 mg tablet Take 6 tablets by mouth one time a week. 72 tablet 1 02/05/2024 08/03/2024 Active Start: 01-11-2024 End: 07-30-2024 Methotrexate Sodium 2.5 mg t ablet Discontinued 15 mg PO NEVILLE January 11, 2024 1:00am July 30, 2024 8:24am Start: 01-11-2024 Methotrexate S odium 2.5 mg tablet Active 20 mg PO EVERY WEEK January 11, 2024 1:00am Start: 11-21-2023 End: 02-19-2024 take 8 tablets by mouth every week methotrexate 2.5 mg tablet Take 8 tablets by mouth one time a week. 96 tablet 11/21/2023 02/05/2024 Discontinued Start: 06-06-2023 End: 10-31-2023 take 8 tablets by mouth every week methotrexate 2.5 mg tablet Take 8 tablets by mouth one time a week. 96 tablet 08/02/2023 Active Start: 01-16-2022 End: 05-25-2023 take 8 tablets by mouth every week methotrexate 2.5 mg tablet Take 8 tablets by mouth one time a week. 96 tablet 0 02/24/2023 05/25/2023 Active Start: 06-21-2020 End: 01-12-2022 take 8 tablets by mouth once methotrexate 2.5 mg table t Take 8 tablets by mouth every Monday. 96 tablet 0 06/21/2020 01/12/2022 Discontinued Start: 06-23-2016 End: 06-19-2020 methotrexate 2.5 mg tablet methotrexate sodium 2.5 mg tablet 0 06/23/2016 06/19/2020 Discontinued Comment on above: methotrexate sodium 2.5 mg tablet Take 8 tablets by mo uth every Monday. Take 8 tablets by mo uth one time a week. metoprolol tartrate 50 mg oral tablet (12 sources) beta-Adrenergic Fahad Start: End: take 1 tablet by mouth twice daily metoprolol tartrate, short acting, (LOPRESSOR) 50 mg tablet Take 50 mg by mouth two times a day. 05/30/2024 Active Start: 02-09-2024 End: 02-26-2024 take 1 tablet by mouth every twenty-four hours at bedtime Metoprolol Succinate 25 mg tablet extended release 24 hr Discontinued 25 mg PO AT BEDTIME February 09, 2024 1:00am February 26, 2024 10:47am montelukast 10 mg oral tablet (20 sources) Leukotriene Receptor Antagonist Start: 05-22-2020 take 1 tablet by mouth at bedtime Montelukast 10 mg tablet Active 10 mg PO AT BEDTIME January 11, 2024 1:00am Comment on above: Take 10 mg by mouth once daily. spironolactone 25 mg oral tablet (3 sources) Aldosterone Antagonist Start: 02-26-2024 take 1 tablet by mouth once daily Spironolactone 25 mg tablet Active 25 mg PO DAILY February 26, 2024 1:00am tiZANidine 2 mg oral tablet (20 sources) Central alpha-2 Adrenergic Agonist Start: 06-02-2023 End: 07-07-2024 take 1 tablet by mouth at bedtime as needed Tizanidine 2 mg tablet Active 2 mg PO AT BEDTIME as needed for muscle spasticity January 11, 2024 1:00am Start: 11-11-2021 End: 05-02-2023 take 1 tablet by mouth at bedtime tiZANidine (ZANAFLEX) 2 mg tablet take 1 to 3 tablets by mouth at bedtime if needed 60 tablet 2 04/05/2023 Active Start: 12-17-2020 End: 09-10-2021 tiZANidine (ZANAFLEX) 2 mg t ablet TAKE 1-3 TABLETS AT BEDTIME NEEDED 60 tablet 1 09/10/2021 Active Start: 05-22-2020 tiZANidine (ZA NAFLEX) 2 mg tablet TAKE 1 3 TABLETS AT BEDTIME NEEDED 0 05/22/2020 Active Comment on above: TAKE 1 3 TABLETS AT BEDTIME NEEDED TAKE 1-3 TABLETS AT BEDTIME NEEDED TAKE 1-3 TABLETS BY MOUTH AT BEDTIME NEEDED TAKE 1 TO 3 TABLETS BY MOUTH AT BEDTIME NEEDED Take 1-3 tablets by mouth at bedtime as needed. take 1 to 3 tablets by mouth at bedtime if needed Completed/Discontinued Medications Medication Drug Class(es) Dates Sig (Normalized) Sig (Original) acetaminophen 325 mg oral tablet (1 source) Start: 01-18-2024 End: 01-18-2024 take 1 dose by mouth once as needed for pain 650 mg, ORAL, ONCE, 1 dose, On Aruna 01/18/24 at 0900, If ordered PRN for pain, patient/guardian may elect to receive this medication for higher pain levels INSTEAD of the opioid, if preferred: N/A Start: 01-18-2024 End: 01-18-2024 take 1 dose by mouth once as needed for pain 650 mg, ORAL, ONCE, 1 dose, On Aruna 01/18/24 at 0900, If ordered PRN for pain, patient/guardian may elect to receive this medication for higher pain levels INSTEAD of the opioid, if preferred: N/A amLODIPine 5 mg oral tablet (12 sources) Dihydropyridine Calcium Channel Fahad Start: 03-29-2024 End: 04-12-2024 take 1 tablet by mouth once daily Amlodipine 5 mg tablet Discontinued 5 mg PO .COMPLEX March 29, 2024 11:27am April 12, 2024 2:45pm 5 mg orally daily at noon; codeine phosphate 2 mg/ml / guaiFENesin 20 mg/ml oral solution (3 sources) Opioid Agonist Start: 03-11-2024 End: 04-12-2024 take 1 mL by mouth four times daily as needed for cough Codeine-Guaifenesi n (Guaifenesin Ac) 10-100 mg/5 mL liquid Discontinued 5 mL PO 4 TIMES DAILY as needed for cough 140 7 March 11, 2024 5:26am April 12, 2024 2:42pm dapagliflozin 10 mg oral tablet (12 sources) Sodium-Glucose Cotransporter 2 Inhibitor Start: 01-11-2024 End: 01-11-2024 take 1 tablet by mouth once daily Dapagliflozin Propanediol (Dapagliflozin Propanediol 10 Mg Tablet) 10 mg tablet Discontinued 10 mg PO DAILY January 11, 2024 1:00am January 11, 2024 11:30pm End: 09-29-2023 take 1 tablet by mouth once daily at breakfast dapagliflozin propanediol (FARXIGA) 10 mg tablet Take 10 mg by mouth daily with breakfast. 0 09/29/2023 Discontinued (Course of therapy completed) Comment on above: Take 10 mg by mouth daily with breakfast. doxycycline hyclate 100 mg oral tablet (3 sources) Tetracycline-class Drug Start: End: 4 take 1 tablet by mouth twice daily Doxycycline Hyclate 100 mg tablet Discontinued 100 mg PO TWICE A DAY 12 08January 13, 2024 1:00am February 09, 2024 6:41pm ferrous gluconate 240 mg oral tablet (6 sources) Start: End: take 1 tablet by mouth once daily Ferrous Gluconate (Ferate) 240 mg (27 mg iron) tablet Discontinued 240 mg PO DAILY February 26, 2024 12:57pm April 12, 2024 2:43pm Fluticasone-Umeclidin -Vilanter (16 sources) Anticholinergic, Corticosteroid, beta2-Adrenergic Agonist Start: 4 End: 5 Fluticasone-Umeclidin -Vilanter (Trelegy Ellipta) 100-62.5-25 mcg blister with device Discontinued 1 NMA INHALATION DAILY January 11, 2024 1:00am April 12, 2024 2:43pm Start: 12-21-2023 take 1 puff(s) by in halation once daily TRELEGY ELLIPTA 100-62.5-25 mcg inhalation powder Inhale 1 Puff as instructed once daily. 12/21/2023 Active 60 actuat formoterol fumarate 0.005 mg/actuat / mometasone furoate 0.1 mg/actuat metered dose inhaler (20 sources) Corticosteroid, beta2-Adrenergic Agonist End: 02-05-2024 take 2 puff(s) by inhalation twice daily mometasone-formoterol (DULERA) 100-5 mcg/actuation inhaler Inhale 2 Puffs as instructed two times a day. 02/05/2024 Discontinued (Course of therapy completed) Comment on above: Inhale 2 Puffs as instructed two times a day. 12 hr guaiFENesin 600 mg extended release oral tablet (3 sources) Start: 01-13-2024 End: 02-26-2024 take 1 tablet by mouth twice daily, then take 1 tablet by mouth every twelve hours Guaifenesin (Mucinex) 600 mg Tablet Extended Release 12hr Discontinued 600 mg PO TWICE A DAY 60 30 January 13, 2024 1:00am February 26, 2024 10:15am hydrALAZINE hydrochloride 25 mg oral tablet (7 sources) Arteriolar Vasodilator Start: 07-30-2024 End: 07-30-2024 take 5 mg by mouth three times daily Hydralazine 25 mg tablet Discontinued 5 mg PO THREE TIMES A DAY July 30, 2024 8:22am July 30, 2024 8:58am Start: 04-12-2024 End: 07-30-2024 take 1 tablet by mouth three times daily hydrALAZINE (APRESOLINE) 25 mg tablet Take 25 mg by mouth three times a day. 05/30/2024 Active hydroxychloroquine sulfate 200 mg oral tablet (20 sources) Antimalarial, Antirheumatic Agent Start: 05-08-2023 End: 07-30-2024 take 1 tablet by mouth at bedtime Hydroxychloroquine 200 mg tablet Discontinued 200 mg PO AT BEDTIME January 11, 2024 1:00am July 30, 2024 8:23am Start: 11-15-2021 End: 05-02-2023 take 1 tablet by mouth once daily hydrOXYchloroQUINE (PLAQUENIL) 200 mg tablet Take 1 tablet by mouth once daily. 30 tablet 2 02/01/2023 05/02/2023 Active Start: 05-10-2021 End: 08-09-2021 take 1 tablet by mouth once daily hydrOXYchloroQUINE (PLAQUENIL) 200 mg tablet TAKE 1 TABLET BY MOUTH EVERY DAY 30 tablet 2 08/09/2021 Active Start: 05-25-2020 take 1 tablet by parth th twice daily, then take 2 tablets by mouth once daily hydrOXYchloroQUINE (PLAQUENIL) 200 mg tablet TAKE 1 TABLET BY MOUTH TWICE A DAY OR 2 TABLETS ONCE DAILY 0 05/25/2020 Active Comment on above: TAKE 1 TABLET BY PARTH TH TWICE A DAY OR 2 TABLETS ONCE DAILY TAKE 1 TABLET BY PARTH TH EVERY DAY Take 1 tablet by parth th once daily. take 1 tablet by parth th once daily inFLIXimab-abda 400 mg in NaCl 0.9% 250 mL (RENFLEXIS) (7 sources) Start: 06-03-2024 End: 06-03-2024 400 mg (rounded from 408 mg = 5 mg/kg/dose 81.6 kg), INTRAVENOUS, at 83.33-250 mL/hr, Administer over 1-3 Hours, ONCE, 1 dose, On 06/03/24 at 1200, TOTAL VOLUME = 250 mL. REFRIG EXP: 06/13/24 1200 Administer with 0.2 micron filter. Start: 04-11-2024 End: 04-11-2024 400 mg (rounded from 392 mg = 5 mg/kg/dose 78.4 kg), INTRAVENOUS, at 83.33-250 mL/hr, Administer over 1-3 Hours, ONCE, 1 dose, On Aruna 04/11/24 at 1030, TOTAL VOLUME = 250 mL. REFRIG EXP: 04/21/24 1100 Administer with 0.2 micron filter. Start: 02-29-2024 End: 02-29-2024 400 mg (rounded from 408 mg = 5 mg/kg/dose 81.6 kg), INTRAVENOUS, at 83.33-250 mL/hr, Administer over 1-3 Hours, ONCE, 1 dose, On Aruna 02/29/24 at 1100, TOTAL VOLUME = 250 mL. EXP:_02/29/240 Administer with 0.2 micron filter. Start: 01-18-2024 End: 01-18-2024 400 mg (rounded from 408 mg = 5 mg/kg/dose 81.6 kg), INTRAVENOUS, at 83.33-250 mL/hr, Administer over 1-3 Hours, ONCE, 1 dose, On Mon01/18/24 at 0900, TOTAL VOLUME = 250 mL. EXP: Administer with 0.2 micron filter. Start: 11-10-2023 End: 11-10-2023 400 mg (rounded from 422.5 m g = 5 mg/kg/dose 84.5 kg), INTRAVENOUS, at 83.33-250 mL/hr, Administer over 1-3 Hours, ONCE, 1 dose, On Mon11/10/23 at 1030, TOTAL VOLUME = 250 mL. EXP: 11/10/23 2200 Administer with 0.2 micron filter. Start: 09-22-2023 End: 09-22-2023 inFLIXimab-abda 400 mg in Na Cl 0.9% 250 mL (RENFLEXIS) Start: 08-04-2023 End: 08-04-2023 inFLIXimab-abda 400 mg in Na Cl 0.9% 250 mL (RENFLEXIS) ipratropium bromide 0.042 mg/actuat metered dose nasal spray (3 sources) Anticholinergic Start: 01-11-2024 End: 07-30-2024 Ipratropium [place] 42 mcg (0.06 %) spray,non-aerosol Discontinued 2 NMA INTRANASAL THREE TIMES A DAY as needed for sinus symptoms January 11, 2024 1:00am July 30, 2024 8:24am lisinopril 30 mg oral tablet (20 sources) Angiotensin Converting Enzyme Inhibitor Start: 02-09-2024 End: 03-10-2024 take 1 tablet by mouth once daily Lisinopril 30 mg tablet Discontinued 30 mg PO DAILY February 09, 2024 1:00am March 11, 2024 12:22am Start: 01-11-2024 End: 01-11-2024 take 1 tablet by mouth once daily Lisinopril 10 mg tablet Discontinued 10 mg PO DAILY January 11, 2024 1:00am January 11, 2024 11:28pm Start: 11-20-2019 lisinopril (ZE STRIL, PRINIVIL) 10 mg tablet lisinopril 10 mg tablet 0 11/20/2019 Active Start: 11-20-2019 End: 02-26-2024 take 1 tablet by mouth once daily Lisinopril 20 mg tablet Discontinued 20 mg PO DAILY January 11, 2024 1:00am February 26, 2024 10:47am Comment on above: lisinopril 10 mg tab let 24 hr metFORMIN hydrochloride 500 mg extended release oral tablet (20 sources) Biguanide Start: 07-03-2024 End: 07-30-2024 Metformin 500 mg tablet extended release 24 hr Discontinued 1000 mg PO DAILY July 03, 2024 12:00am July 03, 2024 7:58pm Start: 02-26-2024 End: 07-03-2024 take 2 tablets by mouth once daily Metformin 500 mg tablet Discontinued 1000 mg PO daily February 26, 2024 1:00am July 03, 2024 7:39pm Start: 01-11-2024 End: 02-26-2024 Metformin 500 mg tablet exte nded release 24 hr Discontinued 1000 mg PO DAILY January 11, 2024 1:00am February 26, 2024 10:15am Start: 09-27-2023 take 1 tablet by parth th once daily at breakfast metFORMIN ER (GLUCOPHAGE XR) 500 mg 24 hr tablet Take 1,000 mg by mouth daily with breakfast. 09/27/2023 Active naproxen 500 mg oral tablet (20 sources) Nonsteroidal Anti-inflammatory Drug Start: 02-09-2024 End: 03-10-2024 take 1 tablet by mouth twice daily Naproxen 500 mg tablet Discontinued 500 mg PO TWICE A DAY February 09, 2024 1:00am March 11, 2024 12:21am Start: 07-26-2023 End: 02-05-2024 take 1 tablet by mouth twice daily Naproxen 500 mg tablet Discontinued 500 mg PO TWICE A DAY January 12, 2024 1:00am January 13, 2024 12:45pm Start: 08-09-2016 End: 07-24-2023 take 1 tablet by mouth twice daily at mealtime naproxen (NAPROSYN) 500 mg tablet Take 1 tablet by mouth two times a day with meals. 180 tablet 0 04/25/2023 07/24/2023 Active Comment on above: naproxen 500 mg tabl et Take 500 mg by mouth twice daily with meals. TAKE 1 TABLET BY PARTH TH TWICE A DAY WITH MEALS Take 1 tablet by parth th twice daily with meals. Take 1 tablet by parth th two times a day with meals. Nirmatrelvir-Ritonavir (Paxlovid) 300 mg (150 mg x 2)-100 mg tablets,dose pack (3 sources) Start: 5 End: 5 Nirmatrelvir-Ritonav ir (Paxlovid) 300 mg (150 mg x 2)-100 mg tablets,dose pack Discontinued 0 PO .COMPLEX March 11, 2024 1:00am April 12, 2024 2:44pm take TWO 150 mg tablets of nirmatrelvir with ONE 100 mg tablet of ritonavir twice daily for 5 days omeprazole 20 mg delayed release oral capsule (20 sources) Proton Pump Inhibitor Start: 1 End: 5 take 1 capsule by mouth once daily before mealtime omeprazole (PRILOSEC) 20 mg capsule TAKE 1 CAPSULE BY MOUTH EVERY DAY BEFORE A MEAL 06/06/2020 06/14/2024 Discontinued (Course of therapy completed) Comment on above: TA[facility] 1 CAPSU[facility] BEFORE A MEAL potassium chloride 20 meq extended release oral tablet (3 sources) Start: 4 End: 4 take 1 tablet by mouth once daily Potassium Chloride 20 mEq tablet extended release Discontinued 20 meq PO daily February 09, 2024 1:00am February 26, 2024 3:40pm traMADol hydrochloride 50 mg oral tablet (7 sources) Opioid Agonist Start: 0 take 1 tablet by mouth every six hours as needed for pain traMADol (ULTRAM) 50 mg tablet tramadol 50 mg tablet TAKE 1 TABLET BY MOUTH EVERY 6 HOURS NEEDED FOR MODERATE PAIN OR SEVERE PAIN. 0 07/09/2019 Active Comment on above: tramadol 50 mg table t TAKE 1 TABLET BY MOUTH EVERY 6 HOURS NEEDED FOR MODERATE PAIN OR SEVERE PAIN. Problems Active Problems Problem Classification Problem Date Documented Date Episodic/Chronic Acute myocardial infarction (7 sources) Myocardial infarction; Translations: [Non-ST elevation (NSTEMI) myocardial infarction] Onset: 01-13-2024 02-26-2024 Chronic Cardiac dysrhythmias (6 sources) Sinus tachycardia; Translations: [Tachycardia, unspecified] 02-17-2024 Episodic Deficiency and other anemia (15 sources) Anemia of chronic disease; Translations: [Anemia in other chronic diseases classified elsewhere] Onset: 02-05-2024 01-20-2024 Chronic Deficiency and other anemia (1 source) Anemia in other chronic diseases classified elsewhere; Translations: [Anemia, chronic disease] Onset: 02-05-2024 Chronic Deficiency and other anemia (14 sources) Anemia; Translations: [Anemia, unspecified] 01-29-2024 Episodic Deficiency and other anemia (2 sources) Anemia, unspecified; Translations: [Anemia, unspecified] Onset: 04-30-2024 Episodic Deficiency and other anemia (1 source) Deficiency and other anemia Diabetes mellitus without complication (4 sources) Type 2 diabetes mellitus; Translations: [Type 2 diabetes mellitus without complications] Onset: 01-13-2024 01-21-2024 Chronic Essential hypertension (9 sources) Hypertensive disorder; Translations: [Essential (primary) hypertension] Onset: 01-13-2024 02-26-2024 Chronic Nonspecific chest pain (10 sources) Chest pain; Translations: [Chest pain, unspecified] Onset: 05-30-2024 05-27-2024 Episodic Other aftercare (1 source) Taking high risk medication; Translations: [Other fpc (current) drug therapy] 06-14-2024 Episodic Other aftercare (1 source) Other joint terminal attack controller (current) drug therapy; Translations: [High risk medication use] Onset: 06-14-2024 Episodic Other lower respiratory disease (6 sources) Dyspnea; Translations: [Shortness of breath] 01-29-2024 Episodic Other lower respiratory disease (3 sources) Cough; Translations: [Cough] 03-19-2024 Episodic Other nervous system disorders (2 sources) Anesthesia of skin; Translations: [Anesthesia of skin] Episodic Other nutritional; endocrine; and metabolic disorders (3 sources) Obese class I; Translations: [Class 1 obesity] 01-21-2024 Chronic Other screening for suspected conditions (not mental disorders or infectious disease) (9 sources) Raised cardiac enzyme or marker; Translations: [Other specified abnormal findings of blood chemistry] 01-11-2024 Episodic Other upper respiratory infections (3 sources) Upper respiratory infection; Translations: [Acute upper respiratory infection, unspecified] 02-17-2024 Episodic Residual codes; unclassified (4 sources) Postmenopausal state; Translations: [Asymptomatic menopausal state] Episodic Residual codes; unclassified (1 source) Asymptomatic menopausal state; Translations: [Asymptomatic postmenopausal status] Onset: 06-14-2024 Episodic Rheumatoid arthritis and related disease (20 sources) Bilateral rheumatoid arthritis of hands; Translations: [Rheumatoid arthritis with rheumatoid factor of right hand without organ or systems involvement] Onset: 06-19-2020 Chronic Unclassified (1 source) Obesity, class 1; Translations: [Obesity, class 1] Onset: 01-13-2024 Viral infection (3 sources) Disease caused by 2019-nCoV; Translations: [COVID-19] 03-10-2024 Episodic Past or Other Problems Problem Classification Problem Date Documented Da te Episodic/Chronic Deficiency and other anemia (1 source) Iron deficiency anemia, unspecified; Translations: [Iron deficiency anemia, unspecified] Onset: 04-30-2024 Episodic Fluid and electrolyte disorders (4 sources) Hypokalemia; Translations: [Hypokalemia] Onset: 01-13-2024 02-17-2024 Episodic Other infections; including parasitic (14 sources) Recurrent infectious disease; Translations: [Unspecified infectious disease] Onset: 02-05-2024 02-05-2024 Episodic Other infections; including parasitic (1 source) Unspecified infectious disease; Translations: [Recurrent infections] Onset: 02-05-2024 Episodic Other lower respiratory disease (1 source) Shortness of breath; Translations: [Shortness of breath] Onset: 03-11-2024 Episodic Pneumonia (except that caused by tuberculosis or sexually transmitted disease) (1 source) Pneumonia, unspecified organism; Translations: [Pneumonia, unspecified organism] Onset: 01-13-2024 Episodic Spondylosis; intervertebral disc disorders; other back problems (20 sources) Chronic low back pain; Translations: [Low back pain] Onset: 06-19-2020 06-19-2020 Episodic Results Test Name Value Interpretation Reference Range Facility Cardiology Visit Reporton Cardiology Visit Report Normal [facility] L499.0043on 07-26-2024 Trop T High Sen Normal <=14 [facility] Comment on above: Result Comment: Canc elled via OM: Order cancelled - Patient discharged Performed By: #### L 499.0043 ####[facility] [address] [place], [address] 12 Lead EKGon 07-25-2024 12 Lead EKG Normal [facility] 12 Lead EKG Normal [facility] Absolute lymphocyte countOrd ered By: [facility] on 07-25-2024 Lymphocytes Auto (Unsp spec) [#/Vol] 2.48 10*3/uL 0.83-4.51 [facility] Absolute neutrophil countOrd ered By: [facility] on 07-25-2024 Neutrophils (Bld) [#/Vol] 4.0 10*3/uL 2.0-7.7 [facility] Anion gap in Serum or Plasma Ordered By: [facility] on 07-25-2024 Anion gap [Moles/Vol] 15 mmol/L 5- [facility] Automated lymphocyte count a s percentage of total leukocytesOrdered By: [facility] on 07-25-2024 Lymphocytes/100 WBC Auto (Unsp spec) 34.6 % - [facility] BUN/creatinine ratioOrdered By: [facility] on 07-25-2024 Urea nitrogen/Creatinine [Mass ratio] 13.0 mg/mg - [facility] Basic Metabolic Profile (BMP )on 07-25-2024 BUN/CRE 13.0 RATIO Normal - [facility] Comment on above: Performed By: #### L 100.0100, L500.2500, L501.4021 ####[facility] [address] [place], [address] Calcium [Mass/Vol] 9.3 mg/dL Normal 7.6-11.0 [facility] Comment on above: Performed By: #### L 100.0100, L500.2500, L501.4021 ####[facility] [address] [place], [address] Chloride [Moles/Vol] 106 mmol/L Normal 98-108 [facility] Comment on above: Performed By: #### L 100.0100, L500.2500, L501.4021 ####[facility] [address] [place], [address] CO2 [Moles/Vol] 21.1 mmol/L Normal 21.0-32.0 [facility] Comment on above: Performed By: #### L 100.0100, L500.2500, L501.4021 ####[facility] [address] [place], [address] Creatinine [Mass/Vol] 0.66 mg/dL Low 0.70-1.20 [facility] Comment on above: Performed By: #### L 100.0100, L500.2500, L501.4021 ####[facility] [address] [place], [address] ECRCL 88.89 ml/min Normal 50-250 [facility] Comment on above: Performed By: #### L 100.0100, L500.2500, L501.4021 ####[facility] [address] [place], [address] GAP 15 Normal 5-15 [facility] Comment on above: Performed By: #### L 100.0100, L500.2500, L501.4021 ####[facility] [address] [place], [address] GFR/1.73 sq M.predicted among non-blacks MDRD (S/P/Bld) [Vol rate/Area] 98 mL/min/{1.73_m2} Normal >60 [facility] Comment on above: Result Comment: mL/m in/1.73m2 CKD-EPI Creatinine Equation (2020) Performed By: #### L 100.0100, L500.2500, L501.4021 ####[facility] [address] [place], [address] Glucose [Mass/Vol] 182 mg/dL High 70-99 [facility] Comment on above: Performed By: #### L 100.0100, L500.2500, L501.4021 ####[facility] [address] [place], [address] Potassium [Moles/Vol] 3.2 mmol/L Low 3.3-5.1 [facility] Comment on above: Performed By: #### L 100.0100, L500.2500, L501.4021 ####[facility] [address] [place], [address] Sodium [Moles/Vol] 142 mmol/L Normal 133-145 [facility] Comment on above: Performed By: #### L 100.0100, L500.2500, L501.4021 ####[facility] [address] [place], [address] Urea nitrogen [Mass/Vol] 9 mg/dL Normal 4-19 [facility] Comment on above: Performed By: #### L 100.0100, L500.2500, L501.4021 ####[facility] [address] [place], [address] Basophil percentageOrdered B y: Ranjit Rosario on 07-25-2024 Basophils/100 WBC (Bld) 0.3 % 0-[address] [facility] CBC W/Diff, Automatedon 07-05 Absolute Lymph 2.48 X10 3/uL Normal 0.83-4.51 [facility] Comment on above: Performed By: #### L 100.0100, L500.2500, L501.4021 ####[facility] [address] [place], [address] Absolute Neut 4.0 X10 3/uL Normal 2.0-7.7 [facility] Comment on above: Performed By: #### L 100.0100, L500.2500, L501.4021 ####[facility] [address] [place], [address] Basophils/100 WBC (Bld) 0.3 % Normal 0-[address] [facility] Comment on above: Performed By: #### L 100.0100, L500.2500, L501.4021 ####[facility] [address] [place], [address] Eosinophils/100 WBC (Bld) 2.4 % Normal 0-5 [facility] Comment on above: Performed By: #### L 100.0100, L500.2500, L501.4021 ####[facility] [address] [place], [address] Erythrocyte distribution width (RBC) [Ratio] 17.1 % High 11.6-14.6 [facility] Comment on above: Performed By: #### L 100.0100, L500.2500, L501.4021 ####[facility] [address] [place], [address] Hematocrit (Bld) [Volume fraction] 38.8 % Normal 37-47 [facility] Comment on above: Performed By: #### L 100.0100, L500.2500, L501.4021 ####[facility] [address] [place], [address] Hemoglobin (Bld) [Mass/Vol] 12.5 g/dL Normal 12.0-15.0 [facility] Comment on above: Performed By: #### L 100.0100, L500.2500, L501.4021 ####[facility] [address] [place], [address] IG% 0.400 Normal 0.0-0.9 [facility] Comment on above: Result Comment: IG% - Immature Granulocytes (promyelocytes, myelocytes andmetamyelocytes) > 1% indicates that a LEFT SHIFT is Present. Performed By: #### L 100.0100, L500.2500, L501.4021 ####[facility] [address] [place], [address] Lymphocytes/100 WBC (Bld) 34.6 % Normal 19-41 [facility] Comment on above: Performed By: #### L 100.0100, L500.2500, L501.4021 ####[facility] [address] [place], [address] MCH (RBC) [Entitic mass] 27.0 pg Normal 27.0-32.0 [facility] Comment on above: Performed By: #### L 100.0100, L500.2500, L501.4021 ####[facility] [address] [place], [address] MCHC (RBC) [Mass/Vol] 32.2 g/dL Normal 32-36 [facility] Comment on above: Performed By: #### L 100.0100, L500.2500, L501.4021 ####[facility] [address] [place], [address] MCV (RBC) [Entitic vol] 83.8 fL Normal 81-99 [facility] Comment on above: Performed By: #### L 100.0100, L500.2500, L501.4021 ####[facility] [address] [place], [address] Monocytes/100 WBC (Bld) 6.6 % Normal 0-[address] [facility] Comment on above: Performed By: #### L 100.0100, L500.2500, L501.4021 ####[facility] [address] [place], [address] Neutrophils/100 WBC (Bld) 55.7 % Normal 47-70 [facility] Comment on above: Performed By: #### L 100.0100, L500.2500, L501.4021 ####[facility] [address] [place], [address] Nucleated RBC (Bld) [#/Vol] 0 10*3/uL Normal 0-5 [facility] Comment on above: Performed By: #### L 100.0100, L500.2500, L501.4021 ####[facility] [address] [place], [address] Platelet mean volume (Bld) [Entitic vol] 10.2 fL Normal 6.2-12.0 [facility] Comment on above: Performed By: #### L 100.0100, L500.2500, L501.4021 ####[facility] [address] [place], [address] Platelets (Bld) [#/Vol] 192 10*3/uL Normal 150-450 [facility] Comment on above: Performed By: #### L 100.0100, L500.2500, L501.4021 ####[facility] [address] [place], [address] RBC (Bld) [#/Vol] 4.63 10*6/uL Normal 4.2-5.4 [facility] Comment on above: Performed By: #### L 100.0100, L500.2500, L501.4021 ####[facility] [address] [place], [address] RDW SD 51.9 fl High 35.1-43.9 [facility] Comment on above: Performed By: #### L 100.0100, L500.2500, L501.4021 ####[facility] [address] [place], [address] WBC (Bld) [#/Vol] 7.2 10*3/uL Normal 4.4-11.0 [facility] Comment on above: Performed By: #### L 100.0100, L500.2500, L501.4021 ####[facility] [address] [place], [address] Carbon dioxide, total [Moles /volume] in Central venous bloodOrdered By: Ranjit Rosario on 07-25-2024 CO2 [Moles/Vol] 21.1 mmol/L 21.0-32.0 [facility] Chest 1 View (Portable)on Chest 1 View (Portable) Normal [facility] Chloride assayOrdered By: Chan Rosario on 07-25-2024 Chloride [Moles/Vol] 106 mmol/L 98-108 [facility] Emergency Department Summary on 07-25-2024 Emergency Department Summary Normal [facility] Eosinophil percentageOrdered By: [facility] on 07-25-2024 Eosinophils/100 WBC (Bld) 2.4 % 0-5 [facility] Erythrocyte distribution wid th ratioOrdered By: Ranjitannabella Rosario on 07-25-2024 Erythrocyte distribution width (RBC) [Ratio] 17.1 % High 11.6-14.6 [facility] Erythrocyte distribution wid th standard deviationOrdered By: Ranjitannabella Rosario on 07-25-2024 Erythrocyte distribution width (RBC) [Ratio] 51.9 fl High 35.1-43.9 [facility] Glomerular filtration rate ( GFR) estimation/1.73 sq m using serum, plasma, or whole bOrdered By: Ranjit Rosario on 07-25-2024 GFR/1.73 sq M.predicted among non-blacks MDRD (S/P/Bld) [Vol rate/Area] 98 mL/min/{1.73_m2} >60 [facility] Comment on above: mL/min/1.73m2 CKD-EP I Creatinine Equation (2020) Hematocrit Auto (Bld) [Volum e fraction]Ordered By: Ranjit Rosario on 07-25-2024 Hematocrit (Bld) [Volume fraction] 38.8 % 37-47 [facility] Hemoglobin measurementOrdere d By: Ranjit Rosario on 07-25-2024 Hemoglobin (Bld) [Mass/Vol] 12.5 g/dL 12.0-15.0 [facility] Immature granulocytes/100 WB C Auto (Bld)Ordered By: Ranjit Rosario on 07-25-2024 Immature granulocytes/100 WBC (Bld) 0.400 % 0.0-0.9 [facility] Comment on above: IG% - Immature Granu locytes (promyelocytes, myelocytes and metamyelocytes) > 1% indicates that a LEFT SHIFT is Present. L499.0042on 07-25-2024 Trop T High Sen < 6 Normal <=14 [facility] Comment on above: Performed By: #### L 499.0042 ####[facility] [address] [place], [address] L501.4021on 07-25-2024 Trop T High Sen < 6 Normal <=14 [facility] Comment on above: Performed By: #### L 100.0100, L500.2500, L501.4021 ####[facility] [address] [place], [address] MCV (mean corpuscular volume ) determinationOrdered By: Ranjitannabella Rosario on 07-25-2024 MCV (RBC) [Entitic vol] 83.8 fL 81-[address] [facility] Mean corpuscular hemoglobin (MCH) determinationOrdered By: Ranjit Rosario on 07-25-2024 MCH (RBC) [Entitic mass] 27.0 pg 27.0-32.0 [facility] Mean corpuscular hemoglobin concentration (MCHC) determinationOrdered By: Ranjitannabella Rosario on 07-25-2024 MCHC (RBC) [Mass/Vol] 32.2 g/dL 32-36 [facility] Mean platelet volume determi nationOrdered By: Ranjitannabella Rosario on 07-25-2024 Platelet mean volume (Bld) [Entitic vol] 10.2 fL 6.2-12.0 [facility] Monocyte percentageOrdered B y: Ranjitannabella Rosario on 07-25-2024 Monocytes/100 WBC (Bld) 6.6 % 0-[address] [facility] Neutrophil percentageOrdered By: Ranjitannabella Rosario on 07-25-2024 Neutrophils/100 WBC (Bld) 55.7 % 47-70 [facility] Nucleated red blood cell per centageOrdered By: Ranjitannabella Rosario on 07-25-2024 Nucleated RBC/100 WBC (Bld) [Ratio] 0 % 0-5 [facility] Platelet countOrdered By: Chan Rosario on 07-25-2024 Platelets (Bld) [#/Vol] 192 10*3/uL 150-450 [facility] Potassium measurement (mass/ volume)Ordered By: Ranjit Rosario on 07-25-2024 Potassium (Unsp spec) [Mass/Vol] 3.2 mmol/L Low 3.3-5.1 [facility] RBC Auto (Bld) [#/Vol]Ordere d By: Ranjit Rosario on 07-25-2024 RBC (Bld) [#/Vol] 4.63 10*6/uL 4.2-5.4 [facility] Serum creatinine measurement (mass/volume)Ordered By: Ranjit Rosario on 07-25-2024 Creatinine [Mass/Vol] 0.66 mg/dL Low 0.70-1.20 [facility] Serum glucose measurement (m ass/volume)Ordered By: Ranjit Rosario on 07-25-2024 Glucose [Mass/Vol] 182 mg/dL High 70-99 [facility] Serum or plasma calcium aminta urement (mass/volume)Ordered By: Ranjit Rosario on 07-25-2024 Calcium [Mass/Vol] 9.3 mg/dL 7.6-11.0 [facility] Serum or plasma urea nitroge n measurement (mass/volume)Ordered By: Ranjit Rosario on 07-25-2024 Urea nitrogen [Mass/Vol] 9 mg/dL 4-19 [facility] Sodium levelOrdered By: Ranjit Rosario on 07-25-2024 Sodium [Moles/Vol] 142 mmol/L 133-145 [facility] Troponin T.cardiac [Mass/vol ume] in Serum or Plasma by High sensitivity methodOrdered By: Ranjit Rosario on 07-25-2024 Troponin T.cardiac High sensitivity method [Mass/Vol] < 6 ng/L <14 [facility] Troponin T.cardiac High sensitivity method [Mass/Vol] < 6 ng/L <14 [facility] Comment on above: Delta: 7 on 07/03/24 -0 White blood cell (WBC) count Ordered By: Ranjit Rosario on 07-25-2024 WBC (Bld) [#/Vol] 7.2 10*3/uL 4.4-11.0 [facility] 07-18-2024 CNPN Telephone (AGRHEUHWN ) JAYLIN CARROLL ([id number]) 1960 F Date Time Provider Department 07/18/24 ROBERT FARIAS During your visit today, we recorded the following information about you: Balbina Alford 07/30/2024 9:18 AM Addendum [facility], [place] - PENDING [id number] [facility] Balbina Alford [employer] Balbina Alford 07/30/2024 9:19 AM Signed [facility], [place] - PENDING [id number] [facility]Portal [facility] DENIED - Need to try and fail [facility] or [facility] Balbina Alford [employer] Allergies As of Date: 07/18/2024 Noted Allergy Reaction DEMEROL (MEPERIDINE) 06/19/2020 14 - Other: See Comments Comments: Lowered blood pressure extremely low SULFA (SULFONAMIDE ANTIBIOTICS) 06/19/2020 8 - GI Upset Comments: Stomach pain severe Date Reviewed: 06/14/2024 Reviewed by: Ashley Bedoya MA - Fully Assessed Reason for Visit: [facility] - PENDING [Other] Cmt: [facility], [place] - PENDING [id number] [facility]Portal Renflex[facility], [place] - DENIED [id number] [facility]al Prescriptions as of 07/30/2024 - methotrexate 2.5 mg tablet take 6 tablets by mouth ONCE EVERY WEEK - hydrOXYchloroQUINE (PLAQUENIL) 200 mg tablet take 1 tablet by mouth once daily - metoprolol tartrate, short acting, (LOPRESSOR) 50 mg tablet Take 50 mg by mouth two times a day. - amLODIPine (NORVASC) 5 mg tablet Take 5 mg by mouth once daily. - hydrALAZINE (APRESOLINE) 25 mg tablet Take 25 mg by mouth three times a day. - tiZANidine (ZANAFLEX) 2 mg tablet Take 1 tablet by mouth daily at bedtime. - folic acid 1 mg tablet take 1 tablet by mouth once daily - TRELEGY ELLIPTA 100-62.5-25 mcg inhalation powder Inhale 1 Puff as instructed once daily. - ferrous sulfate (IRON) 325 mg (65 mg iron) tablet Take 325 mg by mouth once daily. - clopidogrel (PLAVIX) 75 mg tablet Take 75 mg by mouth once daily. - atorvastatin (LIPITOR) 80 mg tablet Take 80 mg by mouth once daily. - metFORMIN ER (GLUCOPHAGE XR) 500 mg 24 hr tablet Take 1,000 mg by mouth daily with breakfast. - lisinopril (ZESTRIL) 20 mg tablet Take 20 mg by mouth once daily. - levothyroxine (SYNTHROID) 25 mcg tablet Take 25 mcg by mouth once daily. - albuterol HFA (PROVENTIL HFA, VENTOLIN HFA) 90 mcg/actuation inhaler INHALE 1 PUFF BY MOUTH EVERY 6 HOURS NEEDED - montelukast (SINGULAIR) 10 mg tablet Take 10 mg by mouth once daily. Facility-Administered Medications as of 07/30/2024 - lidocaine-prilocaine 2.5-2.5 % (EMLA) Problem List As Of Date 07/18/2024 Noted Resolved Rheumatoid arthritis involving both hands with *06/19/2020 Chronic bilateral low back pain without sciatic*06/19/2020 Anemia, chronic disease [D63.8] 02/05/2024 Recurrent infections [B99.9] 02/05/2024 Encounter Status:Closed by BALBINA ALFORD on 07/18/24 Normal [facility] 12 Lead EKGon 07-03-2024 12 Lead EKG Normal [facility] Absolute lymphocyte countOrd ered By: Corey De Jesus on 07-03-2024 Lymphocytes Auto (Unsp spec) [#/Vol] 2.82 10*3/uL 0.83-4.51 [facility] Absolute neutrophil countOrd ered By: Corey De Jesus on 07-03-2024 Neutrophils (Bld) [#/Vol] 3.2 10*3/uL 2.0-7.7 [facility] Activated partial thrombopla stin time (aPTT) in platelet poor plasma by coagulation aOrdered By: Corey De Jesus on 07-03-2024 aPTT Coag (PPP) [Time] 28.5 s 24.1-36.2 [facility] Anion gap in Serum or Plasma Ordered By: Corey De Jesus on 07-03-2024 Anion gap [Moles/Vol] 14 mmol/L 5-15 [facility] Automated lymphocyte count a s percentage of total leukocytesOrdered By: Corey De Jesus on 07-03-2024 Lymphocytes/100 WBC Auto (Unsp spec) 41.7 % High 19-41 [facility] BUN/creatinine ratioOrdered By: Corey De Jesus on 07-03-2024 Urea nitrogen/Creatinine [Mass ratio] 28.0 mg/mg High 10-20 [facility] Basic Metabolic Profile (BMP )on 07-03-2024 BUN/CRE 28.0 RATIO High 10- [facility] Comment on above: Performed By: #### L 100.0100, L500.2500, L501.4021, L300.3900, L300.4310, L300.8000 ####[facility] [address] [place], [address] Calcium [Mass/Vol] 9.3 mg/dL Normal 7.6-11.0 [facility] Comment on above: Performed By: #### L 100.0100, L500.2500, L501.4021, L300.3900, L300.4310, L300.8000 ####[facility] [address] [place], [address] Chloride [Moles/Vol] 108 mmol/L Normal 98-108 [facility] Comment on above: Performed By: #### L 100.0100, L500.2500, L501.4021, L300.3900, L300.4310, L300.8000 ####[facility] [address] [place], [address] CO2 [Moles/Vol] 21.2 mmol/L Normal 21.0-32.0 [facility] Comment on above: Performed By: #### L 100.0100, L500.2500, L501.4021, L300.3900, L300.4310, L300.8000 ####[facility] [address] [place], [place], [phone]) Creatinine [Mass/Vol] 0.59 mg/dL Low 0.70-1.20 [facility] Comment on above: Performed By: #### L 100.0100, L500.2500, L501.4021, L300.3900, L300.4310, L300.8000 ####[facility] [address] [place], [place], [phone] ECRCL 99.75 ml/min Normal 50-250 [facility] Comment on above: Performed By: #### L 100.0100, L500.2500, L501.4021, L300.3900, L300.4310, L300.8000 ####[facility] [address] [place], [place], [phone] GAP 14 Normal 5-15 [facility] Comment on above: Performed By: #### L 100.0100, L500.2500, L501.4021, L300.3900, L300.4310, L300.8000 ####[facility] [address] [place], [address] GFR/1.73 sq M.predicted among non-blacks MDRD (S/P/Bld) [Vol rate/Area] 101 mL/min/{1.73_m2} Normal >60 [facility] Comment on above: Result Comment: mL/m in/1.73m2 CKD-EPI Creatinine Equation (2020) Performed By: #### L 100.0100, L500.2500, L501.4021, L300.3900, L300.4310, L300.8000 ####[facility] [address] [place], [address] Glucose [Mass/Vol] 129 mg/dL High 70-99 [facility] Comment on above: Performed By: #### L 100.0100, L500.2500, L501.4021, L300.3900, L300.4310, L300.8000 ####[facility] [address] [place], [address] Potassium [Moles/Vol] 3.3 mmol/L Normal 3.3-5.1 [facility] Comment on above: Performed By: #### L 100.0100, L500.2500, L501.4021, L300.3900, L300.4310, L300.8000 ####[facility] [address] [place], [address] Sodium [Moles/Vol] 142 mmol/L Normal 133-145 [facility] Comment on above: Performed By: #### L 100.0100, L500.2500, L501.4021, L300.3900, L300.4310, L300.8000 ####[facility] [address] [place], [address] Urea nitrogen [Mass/Vol] 17 mg/dL Normal 4-19 [facility] Comment on above: Performed By: #### L 100.0100, L500.2500, L501.4021, L300.3900, L300.4310, L300.8000 ####[facility] [address] [place], [address] Basophil percentageOrdered B y: Corey De Jesus on 07-03-2024 Basophils/100 WBC (Bld) 0.4 % 0-[address] [facility] CBC W/Diff, Automatedon 06-06 Absolute Lymph 2.82 X10 3/uL Normal 0.83-4.51 [facility] Comment on above: Performed By: #### L 100.0100, L500.2500, L501.4021, L300.3900, L300.4310, L300.8000 ####[facility] [address] [place], [address] Absolute Neut 3.2 X10 3/uL Normal 2.0-7.7 [facility] Comment on above: Performed By: #### L 100.0100, L500.2500, L501.4021, L300.3900, L300.4310, L300.8000 ####[facility] [address] [place], [address] Basophils/100 WBC (Bld) 0.4 % Normal 0-[address] [facility] Comment on above: Performed By: #### L 100.0100, L500.2500, L501.4021, L300.3900, L300.4310, L300.8000 ####[facility] [address] [place], [address] Eosinophils/100 WBC (Bld) 2.4 % Normal 0-5 [facility] Comment on above: Performed By: #### L 100.0100, L500.2500, L501.4021, L300.3900, L300.4310, L300.8000 ####[facility] [address] [place], [address] Erythrocyte distribution width (RBC) [Ratio] 18.0 % High 11.6-14.6 [facility] Comment on above: Performed By: #### L 100.0100, L500.2500, L501.4021, L300.3900, L300.4310, L300.8000 ####[facility] [address] [place], [address] Hematocrit (Bld) [Volume fraction] 38.5 % Normal 37-47 [facility] Comment on above: Performed By: #### L 100.0100, L500.2500, L501.4021, L300.3900, L300.4310, L300.8000 ####[facility] [address] [place], [address] Hemoglobin (Bld) [Mass/Vol] 12.5 g/dL Normal 12.0-15.0 [facility] Comment on above: Performed By: #### L 100.0100, L500.2500, L501.4021, L300.3900, L300.4310, L300.8000 ####[facility] [address] [place], [address] IG% 0.300 Normal 0.0-0.9 [facility] Comment on above: Result Comment: IG% - Immature Granulocytes (promyelocytes, myelocytes andmetamyelocytes) > 1% indicates that a LEFT SHIFT is Present. Performed By: #### L 100.0100, L500.2500, L501.4021, L300.3900, L300.4310, L300.8000 ####[facility] [address] [place], [address] Lymphocytes/100 WBC (Bld) 41.7 % High 19-41 [facility] Comment on above: Performed By: #### L 100.0100, L500.2500, L501.4021, L300.3900, L300.4310, L300.8000 ####[facility] [address] [place], [address] MCH (RBC) [Entitic mass] 27.1 pg Normal 27.0-32.0 [facility] Comment on above: Performed By: #### L 100.0100, L500.2500, L501.4021, L300.3900, L300.4310, L300.8000 ####[facility] [address] [place], [address] MCHC (RBC) [Mass/Vol] 32.5 g/dL Normal 32-36 [facility] Comment on above: Performed By: #### L 100.0100, L500.2500, L501.4021, L300.3900, L300.4310, L300.8000 ####[facility] [address] [place], [address] MCV (RBC) [Entitic vol] 83.5 fL Normal 81-[address] [facility] Comment on above: Performed By: #### L 100.0100, L500.2500, L501.4021, L300.3900, L300.4310, L300.8000 ####[facility] [address] [place], [address] Monocytes/100 WBC (Bld) 7.5 % Normal 0-[address] [facility] Comment on above: Performed By: #### L 100.0100, L500.2500, L501.4021, L300.3900, L300.4310, L300.8000 ####[facility] [address] [place], [address] Neutrophils/100 WBC (Bld) 47.7 % Normal 47-70 [facility] Comment on above: Performed By: #### L 100.0100, L500.2500, L501.4021, L300.3900, L300.4310, L300.8000 ####[facility] [address] [place], [address] Nucleated RBC (Bld) [#/Vol] 0 10*3/uL Normal 0-5 [facility] Comment on above: Performed By: #### L 100.0100, L500.2500, L501.4021, L300.3900, L300.4310, L300.8000 ####[facility] [address] [place], [address] Platelet mean volume (Bld) [Entitic vol] 9.9 fL Normal 6.2-12.0 [facility] Comment on above: Performed By: #### L 100.0100, L500.2500, L501.4021, L300.3900, L300.4310, L300.8000 ####[facility] [address] [place], [address] Platelets (Bld) [#/Vol] 208 10*3/uL Normal 150-450 [facility] Comment on above: Performed By: #### L 100.0100, L500.2500, L501.4021, L300.3900, L300.4310, L300.8000 ####[facility] [address] [place], [address] RBC (Bld) [#/Vol] 4.61 10*6/uL Normal 4.2-5.4 [facility] Comment on above: Performed By: #### L 100.0100, L500.2500, L501.4021, L300.3900, L300.4310, L300.8000 ####[facility] [address] [place], [address] RDW SD 53.6 fl High 35.1-43.9 [facility] Comment on above: Performed By: #### L 100.0100, L500.2500, L501.4021, L300.3900, L300.4310, L300.8000 ####[facility] [address] [place], [address] WBC (Bld) [#/Vol] 6.8 10*3/uL Normal 4.4-11.0 [facility] Comment on above: Performed By: #### L 100.0100, L500.2500, L501.4021, L300.3900, L300.4310, L300.8000 ####[facility] [address] [place], [address] Carbon dioxide, total [Moles /volume] in Central venous bloodOrdered By: Corey De Jesus on 07-03-2024 CO2 [Moles/Vol] 21.2 mmol/L 21.0-32.0 [facility] Chest 1 View (Portable)on Chest 1 View (Portable) Normal [facility] Chloride assayOrdered By: Trever De Jesus on 07-03-2024 Chloride [Moles/Vol] 108 mmol/L 98-108 [facility] D-Dimer Quantitative (DVT/PE )on 07-03-2024 D-DIMER QUANT < 0.27 Low 0.27-0.49 [facility] Comment on above: Result Comment: NORM AL D-Dimer level (<0.50) indicates no DVT or PE. Performed By: #### L 100.0100, L500.2500, L501.4021, L300.3900, L300.4310, L300.8000 ####[facility] [address] [place], [address] Emergency Department Summary on 07-03-2024 Emergency Department Summary Normal [facility] Eosinophil percentageOrdered By: Corey De Jesus on 07-03-2024 Eosinophils/100 WBC (Bld) 2.4 % 0-5 [facility] Erythrocyte distribution wid th ratioOrdered By: Corey De Jesus on 07-03-2024 Erythrocyte distribution width (RBC) [Ratio] 18.0 % High 11.6-14.6 [facility] Erythrocyte distribution wid th standard deviationOrdered By: Corey De Jesus on 07-03-2024 Erythrocyte distribution width (RBC) [Ratio] 53.6 fl High 35.1-43.9 [facility] Glomerular filtration rate ( GFR) estimation/1.73 sq m using serum, plasma, or whole bOrdered By: Corey De Jesus on 07-03-2024 GFR/1.73 sq M.predicted among non-blacks MDRD (S/P/Bld) [Vol rate/Area] 101 mL/min/{1.73_m2} >60 [facility] Comment on above: mL/min/1.73m2 CKD-EP I Creatinine Equation (2020) Hematocrit Auto (Bld) [Volum e fraction]Ordered By: Corey De Jesus on 07-03-2024 Hematocrit (Bld) [Volume fraction] 38.5 % 37-47 [facility] Hemoglobin measurementOrdere d By: Corey De Jesus on 07-03-2024 Hemoglobin (Bld) [Mass/Vol] 12.5 g/dL 12.0-15.0 [facility] Immature granulocytes/100 WB C Auto (Bld)Ordered By: Corey De Jesus on 07-03-2024 Immature granulocytes/100 WBC (Bld) 0.300 % 0.0-0.9 [facility] Comment on above: IG% - Immature Granu locytes (promyelocytes, myelocytes and metamyelocytes) > 1% indicates that a LEFT SHIFT is Present. International normalized rat io (INR) calculationOrdered By: Corey De Jesus on 07-03-2024 INR Coag (Bld) [Relative time] 0.9 {INR} [facility] L499.0042on 07-03-2024 Trop T High Sen < 6 Normal <=14 [facility] Comment on above: Performed By: #### L 499.0042 ####[facility] [address] [place], [address] L499.0043on 07-03-2024 Trop T High Sen Normal <=14 [facility] Comment on above: Result Comment: Canc elled via OM: Order cancelled - Patient discharged Performed By: #### L 499.0043 ####[facility] [address] [place], [address] L501.4021on 07-03-2024 Trop T High Sen 7 ng/L Normal <=14 [facility] Comment on above: Performed By: #### L 100.0100, L500.2500, L501.4021, L300.3900, L300.4310, L300.8000 ####[facility] [address] [place], [address] MCV (mean corpuscular volume ) determinationOrdered By: Corey De Jesus on 07-03-2024 MCV (RBC) [Entitic vol] 83.5 fL 81-[address] [facility] Mean corpuscular hemoglobin (MCH) determinationOrdered By: Corey De Jesus on 07-03-2024 MCH (RBC) [Entitic mass] 27.1 pg 27.0-32.0 [facility] Mean corpuscular hemoglobin concentration (MCHC) determinationOrdered By: Corey De Jesus on 07-03-2024 MCHC (RBC) [Mass/Vol] 32.5 g/dL 32-36 [facility] Mean platelet volume determi nationOrdered By: Corey De Jesus on 07-03-2024 Platelet mean volume (Bld) [Entitic vol] 9.9 fL 6.2-12.0 [facility] Monocyte percentageOrdered B y: Corey De Jesus on 07-03-2024 Monocytes/100 WBC (Bld) 7.5 % 0-[address] [facility] Neutrophil percentageOrdered By: Corey De Jesus on 07-03-2024 Neutrophils/100 WBC (Bld) 47.7 % 47-70 [facility] Nucleated red blood cell per centageOrdered By: Corey De Jesus on 07-03-2024 Nucleated RBC/100 WBC (Bld) [Ratio] 0 % 0-5 [facility] Partial Thromboplast Timeon 07-03-2024 aPTT Coag (Bld) [Time] 28.5 s Normal 24.1-36.2 [facility] Comment on above: Performed By: #### L 100.0100, L500.2500, L501.4021, L300.3900, L300.4310, L300.8000 ####[facility] [address] [place], [place], [id number] Platelet countOrdered By: Trever De Jesus on 07-03-2024 Platelets (Bld) [#/Vol] 208 10*3/uL 150-450 [facility] Potassium measurement (mass/ volume)Ordered By: Corey De Jesus on 07-03-2024 Potassium (Unsp spec) [Mass/Vol] 3.3 mmol/L 3.3-5.1 [facility] Prothrombin Time w/INRon INR Coag (PPP) [Relative time] 0.9 {INR} Normal [facility] Comment on above: Performed By: #### L 100.0100, L500.2500, L501.4021, L300.3900, L300.4310, L300.8000 ####[facility] [address] [place], [address] PT Coag (PPP) [Time] 12.4 s Normal 11.7-14.9 [facility] Comment on above: Performed By: #### L 100.0100, L500.2500, L501.4021, L300.3900, L300.4310, L300.8000 ####[facility] [address] [place], [address] Prothrombin timeOrdered By: Corey De Jesus on 07-03-2024 PT Coag (PPP) [Time] 12.4 s 11.7-14.9 [facility] RBC Auto (Bld) [#/Vol]Ordere d By: Corey De Jesus on 07-03-2024 RBC (Bld) [#/Vol] 4.61 10*6/uL 4.2-5.4 [facility] Serum creatinine measurement (mass/volume)Ordered By: Corey De Jesus on 07-03-2024 Creatinine [Mass/Vol] 0.59 mg/dL Low 0.70-1.20 [facility] Serum glucose measurement (m ass/volume)Ordered By: Corey De Jesus on 07-03-2024 Glucose [Mass/Vol] 129 mg/dL High 70-99 [facility] Serum or plasma calcium aminta urement (mass/volume)Ordered By: Corey De Jesus on 07-03-2024 Calcium [Mass/Vol] 9.3 mg/dL 7.6-11.0 [facility] Serum or plasma urea nitroge n measurement (mass/volume)Ordered By: Corey De Jesus on 07-03-2024 Urea nitrogen [Mass/Vol] 17 mg/dL 4-19 [facility] Sodium levelOrdered By: Corey De Jesus on 07-03-2024 Sodium [Moles/Vol] 142 mmol/L 133-145 [facility] Troponin T.cardiac [Mass/vol ume] in Serum or Plasma by High sensitivity methodOrdered By: Corey De Jesus on 07-03-2024 Troponin T.cardiac High sensitivity method [Mass/Vol] < 6 ng/L <14 [facility] Troponin T.cardiac High sensitivity method [Mass/Vol] 7 ng/L <14 [facility] White blood cell (WBC) count Ordered By: Corey De Jesus on 07-03-2024 WBC (Bld) [#/Vol] 6.8 10*3/uL 4.4-11.0 [facility] CNOVon 06-14-2024 CNOV Office Visit (MARCIAAGK ) JAYLIN CARROLL ([id number]) 1960 F Date Time Provider Department 06/14/24 2:40 PM ROBERT FARIAS During your visit today, we recorded the following information about you: Temperature Pulse Blood pressure Weight 98.2 degrees 84/minute 139/85 81.9 kg Height 1.549 m Robert Farias MD 06/14/2024 5:16 PM Signed This note was created using [employer]. Subjective Jaylin Carroll is a 63 year old female. I am good Trying to get BP controlled Home reading vary 154/90 210/110 and went to ER On 3 BP med Cardio seen and logging reading No sob No chest pain No belly issue No side effect with med Doing good not in pain May be back pain but that is normal Review of Systems Objective BP 139/85 Pulse 84 Temp 36.8 ?C (98.2 ?F) Ht 154.9 cm (5' 1) Wt 81.9 kg (180 lb 9.6 oz) BMI 34.12 kg/m? Physical Exam Vitals reviewed. Constitutional: General: She is not in acute distress. Appearance: She is not ill-appearing or toxic-appearing. Cardiovascular: Rate and Rhythm: Normal rate and regular rhythm. Heart sounds: Normal heart sounds. No murmur heard. No friction rub. No gallop. Pulmonary: Effort: No respiratory distress. Breath sounds: Normal breath sounds. No stridor. No wheezing or rhonchi. Abdominal: General: There is no distension. Palpations: Abdomen is soft. There is no mass. Tenderness: There is no abdominal tenderness. Hernia: No hernia is present. Musculoskeletal: Right shoulder: Normal. Left shoulder: Normal. Right elbow: Normal. Left elbow: Normal. Right wrist: Normal. Left wrist: Normal. Right hand: Normal. Left hand: Normal. Cervical back: No rigidity or tenderness. Thoracic back: Normal. Lumbar back: Normal. Right hip: Normal. Left hip: Normal. Right knee: Normal. Left knee: Normal. Right lower leg: No edema. Left lower leg: No edema. Right ankle: Normal. Left ankle: Normal. Right foot: Normal. Left foot: Normal. Comments: There is no evidence on exam of synovitis, enthesitis, and hypermobility / tenderness. Lymphadenopathy: Cervical: No cervical adenopathy. Assessment and Plan First visit 06/19/2020 ( moved from [place] ) RA and wants treatment for that 06/24 ( Q 4 months )) NV coronary artery disease cannot use NSAID.. RA ( RF 184, CCP 125 ) age 15 onset 2023 Quantiferon M. 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 Mendes [place] [facility] [place] [facility] : 01/2020 last visit ( record reviewed and scanned) ( 2 miscarriages ,no DVT no Raynaud's Phenomenon , no serositis , no photosensitivity ) (sun burn easy ))))) TREATMENT Enbrel positive response 12/19 to 05/20 stopped insurance issue. OFF Simponi 2017 excellent response allergic reaction OFF Sulfa allergy : severe GI upset, no rash no angioedema OFF plaquenil 200 mg bid ( 2014 ) 06/2020 plaquenil 200 mg . (Optha 03/2024 ) MTX 25 mg ( 5 am 5 pm ) ( started ) 06/19/2020 MTX 8 pill weekly . 02/05/24 mtx 15 mg ( cut back on immunosupp, as pneumonia ) Renflexis 04/24 excellent response, 5mg/kg ( 7 week ) (02/2020 last infusion) 06/19/2020 resumed ( missed result of change in location ) insurance covering 02/24 fully covered next 02/26/24 (( last infusion 01/18/2024, before that nov 09 ) ) 10/25 02/24 05/26 08/26 10.04/2906/14/2024 remission . ( coronary artery disease will not cut back on med as cannot use NSAID ) Drug and disease monitoring 11/2019 wbc 3900 low cbc cmp normal 05/19/2020 cbc 4000 wbc cmp normal, chol 171 ldl 100 trig 63, HLD 58 08/14/2020 cbc hg 11.4 low cmp normal esr 2 mm 12/03/2020 esr 5 cmp cbc normal 07/25 cmp glu 156, cbc diff , ESR 2 mm. 11/25 esr 2 cmp cbc normal 05/20/22 cmp cbc normal esr 2 10/14/22 cbc diff cmp esr 2 mm 06/27 cbc cmp normal 09/22/23 cbc cmp normal 01/18/24 cmp cr 0.46, .04/12/2024 K 3.5 Anemia 2023 nov 9.4/30.9 low (( not on NSAID ) (( 01/2024 NSAID stopped as NV ) (( no GI bleed, stool blood neg ) 2024 10.9/36.9 02/05/24 hicks pending, will be seeing GI for this issue 02/21 Vit D 39 .11/2019 Vit D 41. 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 Knee OA bilateral : observe. 07/25 Toe pain 07/16/21 ( compression stocking ) 07/16/21 Right foot fx : 2019 pain off and on ( uses tennis shoe with good results ) Diabetes Mellitus Type II HTN Allergic Rhinitis and Allergic Conjunctivitis Fall allergy ( skin testing (more content not included)... Normal [facility] Cardiology Visit Reporton Cardiology Visit Report Normal [facility] Gastroenterology Visit Repor ton 05-29-2024 Gastroenterology Visit Report Normal [facility] CNPNon 05-28-2024 CNPN Telephone (AGRHEUHWN ) JAYLIN CARROLL ([id number]) 1960 F Date Time Provider Department 05/28/24 ROBERT FARIAS During your visit today, we recorded the following information about you: Balbina Alford 05/28/2024 10:11 AM Signed Kirill Contreras - PENDING [id number] [facility] [employer] Balbina Alford 05/30/2024 10:50 AM Signed Kirill Contreras - ALREADY AUTH ON FILE [id number] 08.04.23 - 08.02.24 [facility] Gypsy [employer] Allergies As of Date: 05/28/2024 Noted Allergy Reaction DEMEROL (MEPERIDINE) 06/19/2020 14 - Other: See Comments Comments: Lowered blood pressure extremely low SULFA (SULFONAMIDE ANTIBIOTICS) 06/19/2020 8 - GI Upset Comments: Stomach pain severe Date Reviewed: 04/11/2024 Reviewed by: Heide Vasquez, IAM - Fully Assessed Reason for Visit: RENFLEXIS - APPROVED [Other] Cmt: Kirill Contreras - JUAN AUTH ON FILE [id number] 08.04.23 - 08.02.24 [facility] Prescriptions as of 05/30/2024 - hydrOXYchloroQUINE (PLAQUENIL) 200 mg tablet take 1 tablet by mouth once daily - tiZANidine (ZANAFLEX) 2 mg tablet Take 1 tablet by mouth daily at bedtime. - folic acid 1 mg tablet take 1 tablet by mouth once daily - SOFIA ELLIPTA 100-62.5-25 mcg inhalation powder Inhale 1 Puff as instructed once daily. - ferrous sulfate (IRON) 325 mg (65 mg iron) tablet Take 325 mg by mouth once daily. - clopidogrel (PLAVIX) 75 mg tablet Take 75 mg by mouth once daily. - atorvastatin (LIPITOR) 80 mg tablet Take 80 mg by mouth once daily. - methotrexate 2.5 mg tablet Take 6 tablets by mouth one time a week. - metFORMIN ER (GLUCOPHAGE XR) 500 mg 24 hr tablet Take 1,000 mg by mouth daily with breakfast. - lisinopril (ZESTRIL) 20 mg tablet Take 20 mg by mouth once daily. - levothyroxine (SYNTHROID) 25 mcg tablet Take 25 mcg by mouth once daily. - omeprazole (PRILOSEC) 20 mg capsule TAKE 1 CAPSULE BY MOUTH EVERY DAY BEFORE A MEAL - albuterol HFA (PROVENTIL HFA, VENTOLIN HFA) 90 mcg/actuation inhaler INHALE 1 PUFF BY MOUTH EVERY 6 HOURS NEEDED - montelukast (SINGULAIR) 10 mg tablet Take 10 mg by mouth once daily. Facility-Administered Medications as of 05/30/2024 - lidocaine-prilocaine 2.5-2.5 % (EMLA) Problem List As Of Date 05/28/2024 Noted Resolved Rheumatoid arthritis involving both hands with *06/19/2020 Chronic bilateral low back pain without sciatic*06/19/2020 Anemia, chronic disease [D63.8] 02/05/2024 Recurrent infections [B99.9] 02/05/2024 Encounter Status:Closed by BALBINA ALFORD on 05/28/24 Normal [facility] Lipid Profileon 05-28-2024 CHOL Normal <=200 [facility] Comment on above: Result Comment: Canc elled via OM: Order cancelled - Patient discharged Performed By: #### L 500.4100 ####[facility] [address] [place], [place], [id number] CHOL:HDL Normal [facility] Comment on above: Result Comment: Canc elled via OM: Order cancelled - Patient discharged Performed By: #### L 500.4100 ####[facility] [address] [place], [address] CLDL Normal [facility] Comment on above: Result Comment: Canc elled via OM: Order cancelled - Patient discharged Performed By: #### L 500.4100 ####[facility] [address] [place], [address] HDL Normal [facility] Comment on above: Result Comment: Canc elled via OM: Order cancelled - Patient discharged Performed By: #### L 500.4100 ####[facility] [address] [place], [address] TRIG Normal [facility] Comment on above: Result Comment: Canc elled via OM: Order cancelled - Patient discharged Performed By: #### L 500.4100 ####[facility] [address] [place], [address] VLDL Normal 5-40 [facility] Comment on above: Result Comment: Canc elled via OM: Order cancelled - Patient discharged Performed By: #### L 500.4100 ####[facility] [address] [place], [address] 12 Lead EKGon 05-27-2024 12 Lead EKG Normal [facility] Absolute lymphocyte countOrd ered By: Natalie Gaspar on 05-27-2024 Lymphocytes Auto (Unsp spec) [#/Vol] 2.50 10*3/uL 0.83-4.51 [facility] Absolute neutrophil countOrd ered By: Natalie Hubert on 05-27-2024 Neutrophils (Bld) [#/Vol] 3.6 10*3/uL 2.0-7.7 [facility] Anion gap in Serum or Plasma Ordered By: Natalie Gaspar on 05-27-2024 Anion gap [Moles/Vol] 12 mmol/L 5-15 [facility] Automated lymphocyte count a s percentage of total leukocytesOrdered By: Natalie Gaspar on 05-27-2024 Lymphocytes/100 WBC Auto (Unsp spec) 35.2 % 19-41 [facility] BUN/creatinine ratioOrdered By: Natalie Gaspar on 05-27-2024 Urea nitrogen/Creatinine [Mass ratio] 21.9 mg/mg High 10-20 [facility] Basophil percentageOrdered B y: Natalie Gaspar on 05-27-2024 Basophils/100 WBC (Bld) 0.3 % 0-[address] [facility] Bedside Glucoseon 05-27-2024 FINGERSTICK GLU 124 mg/dL High 74-106 [facility] Comment on above: Result Comment: DILIA GEMENT OF PATIENT CARE PER NURSING PROTOCOL Performed By: #### L 501.080 ####[facility] [address] [place], [address] FINGERSTICK GLU 178 mg/dL High 74-106 [facility] Comment on above: Result Comment: DILIA GEMENT OF PATIENT CARE PER NURSING PROTOCOL Performed By: #### L 501.080 ####[facility] [address] [place], [address] Bilirubin, totalOrdered By: Natalie Gaspar on 05-27-2024 Bilirubin [Mass/Vol] 0.25 mg/dL 0.00-1.30 [facility] CBC W/Diff, Automatedon 05-05 Absolute Lymph 2.50 X10 3/uL Normal 0.83-4.51 [facility] Comment on above: Performed By: #### L 100.0100, L501.5200, L500.4050 ####[facility] [address] [place], [address] Absolute Neut 3.6 X10 3/uL Normal 2.0-7.7 [facility] Comment on above: Performed By: #### L 100.0100, L501.5200, L500.4050 ####[facility] [address] [place], [address] Basophils/100 WBC (Bld) 0.3 % Normal 0-[address] [facility] Comment on above: Performed By: #### L 100.0100, L501.5200, L500.4050 ####[facility] [address] [place], [address] Eosinophils/100 WBC (Bld) 3.4 % Normal 0-5 [facility] Comment on above: Performed By: #### L 100.0100, L501.5200, L500.4050 ####[facility] [address] [place], [address] Erythrocyte distribution width (RBC) [Ratio] 19.5 % High 11.6-14.6 [facility] Comment on above: Performed By: #### L 100.0100, L501.5200, L500.4050 ####[facility] [address] [place], [address] Hematocrit (Bld) [Volume fraction] 37.1 % Normal 37-47 [facility] Comment on above: Performed By: #### L 100.0100, L501.5200, L500.4050 ####[facility] [address] [place], [address] Hemoglobin (Bld) [Mass/Vol] 11.7 g/dL Low 12.0-15.0 [facility] Comment on above: Performed By: #### L 100.0100, L501.5200, L500.4050 ####[facility] [address] [place], [address] IG% 0.300 Normal 0.0-0.9 [facility] Comment on above: Result Comment: IG% - Immature Granulocytes (promyelocytes, myelocytes andmetamyelocytes) > 1% indicates that a LEFT SHIFT is Present. Performed By: #### L 100.0100, L501.5200, L500.4050 ####[facility] [address] [place], [address] Lymphocytes/100 WBC (Bld) 35.2 % Normal 19-41 [facility] Comment on above: Performed By: #### L 100.0100, L501.5200, L500.4050 ####[facility] [address] [place], [address] MCH (RBC) [Entitic mass] 26.1 pg Low 27.0-32.0 [facility] Comment on above: Performed By: #### L 100.0100, L501.5200, L500.4050 ####[facility] [address] [place], [address] MCHC (RBC) [Mass/Vol] 31.5 g/dL Low 32-36 [facility] Comment on above: Performed By: #### L 100.0100, L501.5200, L500.4050 ####[facility] [address] [place], [address] MCV (RBC) [Entitic vol] 82.8 fL Normal 81-99 [facility] Comment on above: Performed By: #### L 100.0100, L501.5200, L500.4050 ####[facility] [address] [place], [address] Monocytes/100 WBC (Bld) 10.7 % High 0-10 [facility] Comment on above: Performed By: #### L 100.0100, L501.5200, L500.4050 ####[facility] [address] [place], [address] Neutrophils/100 WBC (Bld) 50.1 % Normal 47-70 [facility] Comment on above: Performed By: #### L 100.0100, L501.5200, L500.4050 ####[facility] [address] [place], [address] Nucleated RBC (Bld) [#/Vol] 0 10*3/uL Normal 0-5 [facility] Comment on above: Performed By: #### L 100.0100, L501.5200, L500.4050 ####[facility] [address] [place], [address] Platelet mean volume (Bld) [Entitic vol] 10.3 fL Normal 6.2-12.0 [facility] Comment on above: Performed By: #### L 100.0100, L501.5200, L500.4050 ####[facility] [address] [place], [address] Platelets (Bld) [#/Vol] 183 10*3/uL Normal 150-450 [facility] Comment on above: Performed By: #### L 100.0100, L501.5200, L500.4050 ####[facility] [address] [place], [address] RBC (Bld) [#/Vol] 4.48 10*6/uL Normal 4.2-5.4 [facility] Comment on above: Performed By: #### L 100.0100, L501.5200, L500.4050 ####[facility] [address] [place], [address] RDW SD 57.8 fl High 35.1-43.9 [facility] Comment on above: Performed By: #### L 100.0100, L501.5200, L500.4050 ####[facility] [address] [place], [address] WBC (Bld) [#/Vol] 7.1 10*3/uL Normal 4.4-11.0 [facility] Comment on above: Performed By: #### L 100.0100, L501.5200, L500.4050 ####[facility] [address] [place], [address] Carbon dioxide, total [Moles /volume] in Central venous bloodOrdered By: Natalie Gaspar on 05-27-2024 CO2 [Moles/Vol] 23.1 mmol/L 21.0-32.0 [facility] Cardiovascular stress test r eportOrdered By: Colby Davey on 05-27-2024 Study report [facility] Cardi[facility] Services [address] [place] [address] MR#: [id number] Acct: [id number] Name: JAYLIN CARROLL Rep #: [id number] : 1960 63 From: Colby Davey MD Primary Care: Dr. Paul Greco MD Status: ADM MACIEL Referring Dr: Sex: F C Stress Test Report Pharmacologic myocardial perfusion stress test. 63-year-old lady with a history of chest pain Resting EKG demonstrates sinus rhythm with a rate of 74 bpm. Resting blood pressure is 142/80 mmHg. 0.4 mg of regadenoson was infused per usual protocol followed by rapid intravenous saline flush injection. Continuous EKG monitoringwas performed. The maximum heart rate was 104 bpm which was 66% of max impactedheart rate the maximum workload was 1 metabolic equivalent. At rest there were no ST or T wave changes noted to suggest ischemia and at peak infusion nonspecific ST changes were noted which did not meet the criteria for ischemia. No clinical angina is noted. The final blood pressure was 138/74 mmHg. Myocardial perfusion protocol. 12 mCi of technetium 99m sestamibi was injected at rest. 0.4 mg of regadenoson was infused per usual protocol. At peak infusion 35.1 mCi of technetium 99m sestamibi was injected stress images were obtained stress and rest images were reconstructed and compared in the short axis vertical long and horizontal long axis. Gated images were also obtained. Perfusion SPECT analysis: Review of the stress images demonstrate normal uptake of tracer noted in all areas of the myocardium. The resting images similar demonstrated normal uptake of tracer noted in all areas of the myocardium. No areas of reversibility are noted to suggest ischemia and no previous infarct is noted. Gated SPECT analysis: The gated ejection fraction is 73%. Conclusion: Normal pharmacologic myocardial perfusion stress test. [Preserved] ejection fraction. 05/27/24 1505 Date _ Colby Davey MD CC: Dr. Natalie Gaspar MD; Dr. Paul Greco MD; Dr. Isael Baeza DO ~ Date Dictated: 05/27/241503 Date Transcribed: 05/27/241503 Stenotype Operator: [place] Signed [facility] Work Phone: Chloride assayOrdered By: Jenelle Gaspar on 05-27-2024 Chloride [Moles/Vol] 104 mmol/L 98-108 [facility] Comprehensive Metabolic Prof ilon 05-27-2024 Albumin [Mass/Vol] 4.1 g/dL Normal 3.4-4.8 [facility] Comment on above: Performed By: #### L 100.0100, L501.5200, L500.4050 ####[facility] [address] [place], [address] Albumin/Globulin [Mass ratio] 1.9 {ratio} Normal 0.9-2.4 [facility] Comment on above: Performed By: #### L 100.0100, L501.5200, L500.4050 ####[facility] [address] [place], [address] ALK PHOS 79 U/L Normal 35-104 [facility] Comment on above: Performed By: #### L 100.0100, L501.5200, L500.4050 ####[facility] [address] [place], [address] ALT [Catalytic activity/Vol] 20 U/L Normal <=34 [facility] Comment on above: Performed By: #### L 100.0100, L501.5200, L500.4050 ####[facility] [address] [place], [address] AST [Catalytic activity/Vol] 19 U/L Normal <=31 [facility] Comment on above: Performed By: #### L 100.0100, L501.5200, L500.4050 ####[facility] [address] [place], [address] Bilirubin [Mass/Vol] 0.25 mg/dL Normal 0.00-1.30 [facility] Comment on above: Performed By: #### L 100.0100, L501.5200, L500.4050 ####[facility] [address] [place], [address] BUN/CRE 21.9 RATIO High 10-20 [facility] Comment on above: Performed By: #### L 100.0100, L501.5200, L500.4050 ####[facility] [address] [place], [address] Calcium [Mass/Vol] 9.1 mg/dL Normal 7.6-11.0 [facility] Comment on above: Performed By: #### L 100.0100, L501.5200, L500.4050 ####[facility] [address] [place], [address] Chloride [Moles/Vol] 104 mmol/L Normal 98-108 [facility] Comment on above: Performed By: #### L 100.0100, L501.5200, L500.4050 ####[facility] [address] [place], [address] CO2 [Moles/Vol] 23.1 mmol/L Normal 21.0-32.0 [facility] Comment on above: Performed By: #### L 100.0100, L501.5200, L500.4050 ####[facility] [address] [place], [address] Creatinine [Mass/Vol] 0.71 mg/dL Normal 0.70-1.20 [facility] Comment on above: Performed By: #### L 100.0100, L501.5200, L500.4050 ####[facility] [address] [place], [address] ECRCL 79.78 ml/min Normal 50-250 [facility] Comment on above: Performed By: #### L 100.0100, L501.5200, L500.4050 ####[facility] [address] [place], [address] GAP 12 Normal 5-15 [facility] Comment on above: Performed By: #### L 100.0100, L501.5200, L500.4050 ####[facility] [address] [place], [address] GFR/1.73 sq M.predicted among non-blacks MDRD (S/P/Bld) [Vol rate/Area] 96 mL/min/{1.73_m2} Normal >60 [facility] Comment on above: Result Comment: mL/m in/1.73m2 CKD-EPI Creatinine Equation (2020) Performed By: #### L 100.0100, L501.5200, L500.4050 ####[facility] [address] [place], [address] Globulin (S) [Mass/Vol] 2.1 g/dL Low 2.2-4.2 [facility] Comment on above: Performed By: #### L 100.0100, L501.5200, L500.4050 ####[facility] [address] [place], [address] Glucose [Mass/Vol] 196 mg/dL High 70-99 [facility] Comment on above: Performed By: #### L 100.0100, L501.5200, L500.4050 ####[facility] [address] [place], [address] Potassium [Moles/Vol] 3.9 mmol/L Normal 3.3-5.1 [facility] Comment on above: Performed By: #### L 100.0100, L501.5200, L500.4050 ####[facility] [address] [place], [address] Sodium [Moles/Vol] 139 mmol/L Normal 133-145 [facility] Comment on above: Performed By: #### L 100.0100, L501.5200, L500.4050 ####[facility] [address] [place], [address] T PROT 6.3 g/dL Normal 5.9-8.4 [facility] Comment on above: Performed By: #### L 100.0100, L501.5200, L500.4050 ####[facility] [address] [place], [address] Urea nitrogen [Mass/Vol] 16 mg/dL Normal 4-19 [facility] Comment on above: Performed By: #### L 100.0100, L501.5200, L500.4050 ####[facility] [address] [place], [address] Discharge Instructionon 05-05 Discharge Instruction Normal [facility] Electrocardiogram reportOrde red By: Colby Davey on 05-27-2024 EKG study [facility] Cardiovascular Services [address] [place] [address] 12 Lead EKG 05/27/24 0314 MR#: [id number] Acct: [id number] Name: JAYLIN CARROLL Rep #:[id number] : 1960 63 From: Colby Davey MD Attending Dr: Dr. Isael Baeza, DO Status: ADM MACIEL Ordering Dr: Natalie Gaspar MD Date: 05/27/24 Location: U Sex: F C Admitted: 05/27/24 Test Reason : CP ADMIT Blood Pressure : */* mmHG Vent. Rate : 89 BPM Atrial Rate : 89 BPM P-R Int : 138 ms QRS Dur : 82 ms QT Int : 390 ms P-R-T Axes : 67 32 63 degrees QTcB Int : 474 ms Normal sinus rhythm Normal ECG When compared with ECG of 10-Mar-2024 20:25, No significant change was found Confirmed by PETAR DORMAN, COLBY ([id number]), assistant editor ANNALISE HARRISON ([id number]) on :48:40 AM Referred By: Confirmed By: COLBY DAVEY MD 05/27/24 0948 Date _ Colby Davey MD CC: Dr. Natalie Gaspar MD; Dr. Paul Greco MD; Dr. Isael Baeza, DO ~ Signed [facility] Work Phone: [phone] Eosinophil percentageOrdered By: Natalie Gaspar on 05-27-2024 Eosinophils/100 WBC (Bld) 3.4 % 0-5 [facility] Erythrocyte distribution wid th ratioOrdered By: Natalie Gaspar on 05-27-2024 Erythrocyte distribution width (RBC) [Ratio] 19.5 % High 11.6-14.6 [facility] Erythrocyte distribution wid th standard deviationOrdered By: Natalie Gaspar on 05-27-2024 Erythrocyte distribution width (RBC) [Entitic vol] 57.8 fL High 35.1-43.9 [facility] Erythrocyte distribution width (RBC) [Ratio] 57.8 fl High 35.1-43.9 [facility] Estimation of creatinine debbie aranceOrdered By: Natalie Gaspar on 05-27-2024 Estimated Creatinine Clearance Calc 79.78 ml/min 50-250 [facility] GFR/1.73 sq M.predicted selma g non-blacks MDRD (S/P/Bld) [Vol rate/Area]Ordered By: Natalie Gaspar on 05-27-2024 Estimated GFR (MDRD) Non-Af Amer 96 >60 [facility] Comment on above: mL/min/1.73m2 CKD-EP I Creatinine Equation (2020) Glomerular filtration rate ( GFR) estimation/1.73 sq m using serum, plasma, or whole bOrdered By: Natalie Gaspar on 05-27-2024 GFR/1.73 sq M.predicted among non-blacks MDRD (S/P/Bld) [Vol rate/Area] 96 mL/min/{1.73_m2} >60 [facility] Comment on above: mL/min/1.73m2 CKD-EP I Creatinine Equation (2020) [facility] deOrdered By: Isael Baeza on 05-27-2024 [facility]side [facility] 124 mg/dL High 74-106 [facility] Comment on above: MANAGEMENT OF PATIEN T CARE PER NURSING PROTOCOL Glucose [Mass/Vol] 124 mg/dL High 74-106 [facility] Comment on above: MANAGEMENT OF PATIEN T CARE PER NURSING PROTOCOL H AND P Exam - [facility] 05-27-2024 H&P Exam - Hospitalist Normal [facility] Hematocrit Auto (Bld) [Volum e fraction]Ordered By: Natalie Gaspar on 05-27-2024 Hematocrit (Bld) [Volume fraction] 37.1 % 37-47 [facility] Hemoglobin measurementOrdere d By: Natalie Gaspar on 05-27-2024 Hemoglobin (Bld) [Mass/Vol] 11.7 g/dL Low 12.0-15.0 [facility] Immature granulocytes/100 WB C Auto (Bld)Ordered By: Natalie Gaspar on 05-27-2024 Immature granulocytes/100 WBC (Bld) 0.300 % 0.0-0.9 [facility] Comment on above: IG% - Immature Granu locytes (promyelocytes, myelocytes and metamyelocytes) > 1% indicates that a LEFT SHIFT is Present. L499.0042on 05-27-2024 Trop T High Sen < 6 Normal <=14 [facility] Comment on above: Performed By: #### L 499.0042 ####[facility] [address] [place], [place], [address] L499.0043on 05-27-2024 Trop T High Sen < 6 Normal <=14 [facility] Comment on above: Performed By: #### L 499.0043 ####[facility] [address] [place], [address] L501.4021on 05-27-2024 Trop T High Sen 7 ng/L Normal <=14 [facility] Comment on above: Performed By: #### L 501.4021 ####[facility] [address] [place], [place], [id number] Laboratory - Chemistry and C hemistry - challengeOrdered By: Natalie Gaspar on 05-27-2024 AST [Catalytic activity/Vol] 19 U/L <32 [facility] Lymphocytes Auto (Unsp spec) [#/Vol]Ordered By: Natalie Hubert on 05-27-2024 Lymphocytes (Bld) [#/Vol] 2.50 10*3/uL 0.83-4.51 [facility] Lymphocytes/100 WBC Auto (Un sp spec)Ordered By: Hubert on 05-27-2024 Lymphocytes/100 WBC (Bld) 35.2 % 19-41 [facility] MCV (mean corpuscular volume ) determinationOrdered By: Natalie Hubert on 05-27-2024 MCV (RBC) [Entitic vol] 82.8 fL 81-[address] [facility] Magnesiumon 05-27-2024 Magnesium [Mass/Vol] 2.1 mg/dL Normal 1.5-2.2 [facility] Comment on above: Performed By: #### L 100.0100, L501.5200, L500.4050 ####[facility] [address] [facility] [place], [place], [id number] Magnesium (Unsp spec) [Mass/ Vol]Ordered By: Natalie Gaspar on 05-27-2024 Magnesium [Mass/Vol] 2.1 mg/dL 1.5-2.2 [facility] Magnesium measurement (mass/ volume)Ordered By: Natalie Hubert on 05-27-2024 Magnesium (Unsp spec) [Mass/Vol] 2.1 mg/dL 1.5-2.2 [facility] Mean corpuscular hemoglobin (MCH) determinationOrdered By: Natalie Hubert on 05-27-2024 MCH (RBC) [Entitic mass] 26.1 pg Low 27.0-32.0 [facility] Mean corpuscular hemoglobin concentration (MCHC) determinationOrdered By: Natalie Hubert on 05-27-2024 MCHC (RBC) [Mass/Vol] 31.5 g/dL Low 32-36 [facility] Mean platelet volume determi nationOrdered By: Natalie Gaspar on 05-27-2024 Platelet mean volume (Bld) [Entitic vol] 10.3 fL 6.2-12.0 [facility] Monocyte percentageOrdered B y: Nataile White on 05-27-2024 Monocytes/100 WBC (Bld) 10.7 % High 0-[address] [facility] Neutrophil percentageOrdered By: White on 05-27-2024 Neutrophils/100 WBC (Bld) 50.1 % 47-70 [facility] No Panel InformationOrdered By: Natalie Gaspar on 05-27-2024 Troponin T High Sensitivity 7 ng/L <14 [facility] Nucleated red blood cell per centageOrdered By: Natalie White on 05-27-2024 Nucleated RBC/100 WBC (Bld) [Ratio] 0 % 0-5 [facility] Platelet countOrdered By: Jenelle willson Hubert on 05-27-2024 Platelets (Bld) [#/Vol] 183 10*3/uL 150-450 [facility] Potassium (Unsp spec) [Mass/ Vol]Ordered By: Natalie Gaspar on 05-27-2024 Potassium [Moles/Vol] 3.9 mmol/L 3.3-5.1 [facility] Potassium measurement (mass/ volume)Ordered By: Natalie Hubert on 05-27-2024 Potassium (Unsp spec) [Mass/Vol] 3.9 mmol/L 3.3-5.1 [facility] RBC Auto (Bld) [#/Vol]Ordere d By: Natalie Hubert on 05-27-2024 RBC (Bld) [#/Vol] 4.48 10*6/uL 4.2-5.4 [facility] Serum creatinine measurement (mass/volume)Ordered By: Natalie Gaspar on 05-27-2024 Creatinine [Mass/Vol] 0.71 mg/dL 0.70-1.20 [facility] Serum globulin measurementOr dered By: Natalie Gaspar on 05-27-2024 Globulin (S) [Mass/Vol] 2.1 g/dL Low 2.2-4.[address] [facility] Serum glucose measurement (m ass/volume)Ordered By: Natalie Gaspar on 05-27-2024 Glucose [Mass/Vol] 196 mg/dL High 70-99 [facility] Serum or plasma alanine mesa otransferase (ALT) measurementOrdered By: Natalie Gaspar on 05-27-2024 ALT [Catalytic activity/Vol] 20 U/L <35 [facility] Serum or plasma albumin aminta urement (mass/volume)Ordered By: Natalie Gaspar on 05-27-2024 Albumin [Mass/Vol] 4.1 g/dL 3.4-4.8 [facility] Serum or plasma albumin/glob ulin mass ratioOrdered By: Natalie Gaspar on 05-27-2024 Albumin/Globulin [Mass ratio] 1.9 {ratio} 0.9-2.4 [facility] Serum or plasma alkaline arcelia sphatase measurementOrdered By: Natalie Gaspar on 05-27-2024 ALP [Catalytic activity/Vol] 79 U/L 35-104 [facility] Serum or plasma calcium aminta urement (mass/volume)Ordered By: Natalie Gaspar on 05-27-2024 Calcium [Mass/Vol] 9.1 mg/dL 7.6-11.0 [facility] Serum or plasma urea nitroge n measurement (mass/volume)Ordered By: Natalie Gaspar on 05-27-2024 Urea nitrogen [Mass/Vol] 16 mg/dL 4-19 [facility] Sodium levelOrdered By: Phu mn Hubert on 05-27-2024 Sodium [Moles/Vol] 139 mmol/L 133-145 [facility] Stress Reporton 05-27-2024 Stress Report Normal [facility] Total proteinOrdered By: Loy olmosn Hubert on 05-27-2024 Protein [Mass/Vol] 6.3 g/dL 5.9-8.4 [facility] Troponin T.cardiac High sens itivity method [Mass/Vol]Ordered By: Natalie Gaspar on 05-27-2024 Troponin T High Sensitivity 4 Hour < 6 ng/L <14 [facility] Troponin T High Sensitivity 2 Hour < 6 ng/L <14 [facility] Troponin T.cardiac [Mass/vol ume] in Serum or Plasma by High sensitivity methodOrdered By: Natalie Gaspar on 05-27-2024 Troponin T.cardiac High sensitivity method [Mass/Vol] < 6 ng/L <14 [facility] Troponin T.cardiac High sensitivity method [Mass/Vol] < 6 ng/L <14 [facility] White blood cell (WBC) count Ordered By: Natalie Gaspar on 05-27-2024 WBC (Bld) [#/Vol] 7.1 10*3/uL 4.4-11.0 [facility] .Auto Diffon 05-26-2024 Basophil, Absolute 0.0 10 3/mcL Normal 0.0-0.2 [facility] Comment on above: Performed By: #### M DW, MG, TROPHS, ANEU, PBNP, CBC, GFR, BMP, ADIFF #### [address] [address] Basophils/100 WBC (Bld) 0.5 % Normal 0.0-2.5 [facility] Comment on above: Performed By: #### M DW, MG, TROPHS, ANEU, PBNP, CBC, GFR, BMP, ADIFF #### [address] [address] Eosinophil, Absolute 0.3 10 3/mcL Normal 0.0-0.7 [facility] Comment on above: Performed By: #### M DW, MG, TROPHS, ANEU, PBNP, CBC, GFR, BMP, ADIFF #### [address] [address] Eosinophils/100 WBC (Bld) 3.2 % Normal 0.0-7.0 [facility] Comment on above: Performed By: #### M DW, MG, TROPHS, ANEU, PBNP, CBC, GFR, BMP, ADIFF #### [address] [address] Lymphocyte, Absolute 2.6 10 3/mcL Normal 0.9-4.3 [facility] Comment on above: Performed By: #### M DW, MG, TROPHS, ANEU, PBNP, CBC, GFR, BMP, ADIFF #### [address] [address] Lymphocytes/100 WBC (Bld) 33.0 % Normal 20.0-40.0 [facility] Comment on above: Performed By: #### M DW, MG, TROPHS, ANEU, PBNP, CBC, GFR, BMP, ADIFF #### [address] [address] Monocyte, Absolute 0.7 10 3/mcL Normal 0.1-1.4 [facility] Comment on above: Performed By: #### M DW, MG, TROPHS, ANEU, PBNP, CBC, GFR, BMP, ADIFF #### [address] [place], [place] [address] Monocytes/100 WBC (Bld) 8.5 % Normal 2.0-13.0 [facility] Comment on above: Performed By: #### M DW, MG, TROPHS, ANEU, PBNP, CBC, GFR, BMP, ADIFF #### [address] [address] Neutrophils/100 WBC (Bld) 54.8 % Normal 50.0-75.0 [facility] Comment on above: Performed By: #### M DW, MG, TROPHS, ANEU, PBNP, CBC, GFR, BMP, ADIFF #### [address] [address] .GFRon 05-26-2024 Estimated Glomerular Filtration Rate 79 ml/min/1.73sqm Normal [facility] Comment on above: Result Comment: Stages of Chronic Kidney Disease (CKD) Stage Description eGFR(ml/min/1.73 sq.m.) CKD 1 Normal kidney function or >=90 normal kindney function with possible kidney damage (ex. Proteinuria) CKD 2 Kidney damage with mild loss 60-89 of kidney function CKD 3a Mild to moderate loss of kidney 45-59 function CKD 3b Moderate to severe loss of 30-44 of kindey function CKD 4 Severe loss of kidney function 15-29 CKD 5 Kidney failure <15 Note: (go live 2024) the eGFR calculation was updated to the 2020 CKD-EPI creatinine equation without a race factor to calculate the eGFR results. Performed By: #### M DW, MG, TROPHS, ANEU, PBNP, CBC, GFR, BMP, ADIFF ####[address] [place], [place] [address] .MDWon 05-26-2024 Monocyte Distribution Width 18.55 Normal 0.00-20.00 [facility] Comment on above: Result Comment: For ED adult patients suspected of sepsis, MDW<=20.0 does not rule out sepsis or risk of sepsis Performed By: #### M DW, MG, TROPHS, ANEU, PBNP, CBC, GFR, BMP, ADIFF #### [address] [address] .NEUABSon 05-26-2024 Neutrophil, Absolute 4.4 10 3/mcL Normal 2.3-8.1 [facility] Comment on above: Performed By: #### M DW, MG, TROPHS, ANEU, PBNP, CBC, GFR, BMP, ADIFF #### [place] [address] .Urinalysis Microscopic (AO) on 05-26-2024 UA RBC None Seen Normal None Seen [facility] Comment on above: Performed By: #### U A, UAMICAO ####[place] [address] UA Squam Epithelial 0-5 Abnormal None Seen [facility] Comment on above: Performed By: #### U A, UAMICAO ####[place] [address] UA WBC 0-5 Abnormal None Seen [facility] Comment on above: Performed By: #### U A, UAMICAO ####[place] [address] BMPon 05-26-2024 BUN/Creatinine Ratio 18 ratio Normal 7-27 [facility] Comment on above: Performed By: #### M DW, MG, TROPHS, ANEU, PBNP, CBC, GFR, BMP, ADIFF #### [place] [address] Calcium [Mass/Vol] 9.5 mg/dL Normal 8.4-10.2 [facility] Comment on above: Performed By: #### M DW, MG, TROPHS, ANEU, PBNP, CBC, GFR, BMP, ADIFF #### [address] [address] Chloride [Moles/Vol] 102 mmol/L Normal 98-107 [facility] Comment on above: Performed By: #### M DW, MG, TROPHS, ANEU, PBNP, CBC, GFR, BMP, ADIFF #### [address] [address] CO2 [Moles/Vol] 27 mmol/L Normal 23-31 [facility] Comment on above: Performed By: #### M DW, MG, TROPHS, ANEU, PBNP, CBC, GFR, BMP, ADIFF #### [address] [address] Creatinine [Mass/Vol] 0.83 mg/dL Normal 0.55-1.02 [facility] Comment on above: Result Comment: Test ing performed on Siemens Dimension EXL analyzer using a modified kinetic Jaya technique. Performed By: #### M DW, MG, TROPHS, ANEU, PBNP, CBC, GFR, BMP, ADIFF #### [address] [address] Electrolyte Balance 9.0 mEq/L Normal 4.0-15.0 [facility] Comment on above: Performed By: #### M DW, MG, TROPHS, ANEU, PBNP, CBC, GFR, BMP, ADIFF #### [address] [address] Glucose [Mass/Vol] 268 mg/dL High 80-115 [facility] Comment on above: Performed By: #### M DW, MG, TROPHS, ANEU, PBNP, CBC, GFR, BMP, ADIFF #### [address] [address] Potassium [Moles/Vol] 3.6 mmol/L Normal 3.5-5.1 [facility] Comment on above: Performed By: #### M DW, MG, TROPHS, ANEU, PBNP, CBC, GFR, BMP, ADIFF #### [address] [address] Sodium [Moles/Vol] 138 mmol/L Normal 136-145 [facility] Comment on above: Performed By: #### M DW, MG, TROPHS, ANEU, PBNP, CBC, GFR, BMP, ADIFF #### [address] [address] Urea nitrogen [Mass/Vol] 15 mg/dL Normal 7-18 [facility] Comment on above: Performed By: #### M DW, MG, TROPHS, ANEU, PBNP, CBC, GFR, BMP, ADIFF #### [address] [address] CBCon 05-26-2024 Erythrocyte distribution width (RBC) [Ratio] 21.0 % High 11.5-15.5 [facility] Comment on above: Performed By: #### M DW, MG, TROPHS, ANEU, PBNP, CBC, GFR, BMP, ADIFF #### [place] [address] Hematocrit (Bld) [Volume fraction] 39.8 % Normal 34.0-46.0 [facility] Comment on above: Performed By: #### M DW, MG, TROPHS, ANEU, PBNP, CBC, GFR, BMP, ADIFF #### [address] [address] Hgb 12.8 G/dL Normal 12.0-16.0 [facility] Comment on above: Performed By: #### M DW, MG, TROPHS, ANEU, PBNP, CBC, GFR, BMP, ADIFF #### [address] [address] MCH (RBC) [Entitic mass] 25.7 pg Low 27.0-33.0 [facility] Comment on above: Performed By: #### M DW, MG, TROPHS, ANEU, PBNP, CBC, GFR, BMP, ADIFF #### [address] [address] MCHC 32.1 G/dL Normal 32.0-36.0 [facility] Comment on above: Performed By: #### M DW, MG, TROPHS, ANEU, PBNP, CBC, GFR, BMP, ADIFF #### [address] [address] MCV (RBC) [Entitic vol] 80.2 fL Normal 80.0-99.0 [facility] Comment on above: Performed By: #### M DW, MG, TROPHS, ANEU, PBNP, CBC, GFR, BMP, ADIFF #### [place] [address] Platelet 179 10 3/mcL Normal 150-450 [facility] Comment on above: Performed By: #### M DW, MG, TROPHS, ANEU, PBNP, CBC, GFR, BMP, ADIFF #### [place] [address] Platelet mean volume (Bld) [Entitic vol] 8.6 fL Normal 6.6-10.5 [facility] Comment on above: Performed By: #### M DW, MG, TROPHS, ANEU, PBNP, CBC, GFR, BMP, ADIFF #### [place] [id number] RBC 4.96 10 6/mcL Normal 4.10-5.30 [facility] Comment on above: Performed By: #### M DW, MG, TROPHS, ANEU, PBNP, CBC, GFR, BMP, ADIFF #### [place] [id number] WBC 8.0 10 3/mcL Normal 4.5-10.8 [facility] Comment on above: Performed By: #### M DW, MG, TROPHS, ANEU, PBNP, CBC, GFR, BMP, ADIFF #### [address] [address] [address] HEAD OR BRAIN W/O CONTRAS Ton 05-26-2024 CT HEAD OR BRAIN W/O CONTRAST ORIGINAL EXAMINATION: CT OF THE HEAD WITHOUT CONTRAST 05/26/2024 9:20 pm TECHNIQUE: CT of the head was performed without the administration of intravenous contrast. Automated exposure control, iterative reconstruction, and/or weight based adjustment of the mA/kV was utilized to reduce the radiation dose to as low as reasonably achievable. COMPARISON: None. HISTORY: ORDERING SYSTEM PROVIDED HISTORY: Reason for Exam: pain FINDINGS: BRAIN/VENTRICLES: No evidence of acute intracranial hemorrhage, mass effect, midline shift, hydrocephalus, or acute large territorial infarction is identified. Normal ventricles, sulci, and cisterns for age. ORBITS: The visualized portion of the orbits demonstrate no acute abnormality. SINUSES: The visualized paranasal sinuses and mastoid air cells demonstrate no acute abnormality. SOFT TISSUES/SKULL: No acute abnormality of the visualized skull or soft tissues. IMPRESSION: No CT evidence of an acute intracranial abnormality. I have reviewed the resident's preliminary report and agree with findings and impression. Interpreted by: Bubba Sorto Preliminary Report By: Mikey Wren Electronically signed By Bubba Sorto Dictated Date: 05/26/2024 9:22:53 PM Prelim Date: 05/26/2024 9:26:23 PM Sign Date: 05/26/2024 9:29:37 PM Ordering Provider: GAUTAM ADAM Normal [facility] Magnesium [Mass/Vol] 1.5 mg/dL Low 1.8-2.4 [facility] Comment on above: Performed By: #### M DW, MG, TROPHS, ANEU, PBNP, CBC, GFR, BMP, ADIFF #### [address] [address] PBNPon 05-26-2024 Natriuretic peptide B (Bld) [Mass/Vol] 80 pg/mL Normal 0-125 [facility] Comment on above: Result Comment: NT-p roBNP results of less than 300 pg/mL effectively rules out acute congestive heart failure with 99% negative predictive value. Performed By: #### M DW, MG, TROPHS, ANEU, PBNP, CBC, GFR, BMP, ADIFF #### [id number] [place], [place] [address] [facility] 05-26-2024 High Sensitivity Troponin I 74 ng/L High 0-51 [facility] Comment on above: Result Comment: High Sensitive Troponin I Reference Ranges: Female: 0-51 ng/L Male: 0-76 ng/L Testing performed on [employer] using a homogeneous sandwich chemiluminescent immunoassay based on RadioFrame technology. Performed By: #### T ROP ####[address] [place], [place] [address] High Sensitivity Troponin I 81 ng/L High 0-51 [facility] Comment on above: Result Comment: High Sensitive Troponin I Reference Ranges: Female: 0-51 ng/L Male: 0-76 ng/L Testing performed on Dimension [employer] [place] using a homogeneous sandwich chemiluminescent immunoassay based on RadioFrame technology. Performed By: #### M DW, MG, TROPHS, ANEU, PBNP, CBC, GFR, BMP, ADIFF #### [address] [place], [place] [address] UAon 05-26-2024 Color (U) Yellow Normal [facility] Comment on above: Performed By: #### U A, UAMICAO ####[address] [place] [id number] Glucose (U) [Mass/Vol] Negative Normal Negative [facility] Comment on above: Performed By: #### U A, UAMICAO ####[address] [place], [place] [address] Ketones Ql (U) Negative Normal Negative [facility] Comment on above: Performed By: #### U A, UAMICAO ####[address] [place], [place] [address] UA Appear Clear Normal Clear [facility] Comment on above: Performed By: #### U A, UAMICAO ####[address] [place] [address] UA Blood Negative Normal Negative [facility] Comment on above: Performed By: #### U A, UAMICAO ####[address] [place], [place] [address] UA Leuk Est Small Abnormal Negative [facility] Comment on above: Performed By: #### U A, UAMICAO ####[address] [place], [place] [address] UA Nitrite Negative Normal Negative [facility] Comment on above: Performed By: #### U A, UAMICAO ####[place] [address] [place] [address] UA pH 6.0 Normal 5.0 - 8.0 [facility] Comment on above: Performed By: #### U A, UAMICAO ####[address] [place] [address] UA Protein Negative Normal Negative [facility] Comment on above: Performed By: #### U A, UAMICAO ####[address] [place] [address] UA Spec Grav 1.025 Normal 1.015-1.025 [facility] Comment on above: Performed By: #### U A, UAMICAO ####[place] [address] [place] [address] UA Specimen Type Clean Catch Normal [facility] Comment on above: Performed By: #### U A, UAMICAO ####[facility] [place] [address] UA Urobilinogen 0.2 E.U./dL Normal 0.2-1.0 [facility] Comment on above: Performed By: #### U A, UAMICAO ####[place] [address] [place] [address] Urobilinogen (U) [Mass/Vol] Negative Normal Negative [facility] Comment on above: Performed By: #### U A, UAMICAO ####[facility] [place] [address] XR CHEST 1 VIEWon 05-26-2024 XR CHEST 1 VIEW ORIGINAL EXAMINATION: ONE XRAY VIEW OF THE CHEST 05/26/2024 9:19 pm COMPARISON: None. HISTORY: ORDERING SYSTEM PROVIDED HISTORY: Reason for Exam: chest pain FINDINGS: Right IJV tunneled catheter port tip projects over the right atrium. The cardiomediastinal silhouette is within normal limits of size and contour. No pleural effusion or pneumothorax. No focal consolidation. No evidence of an acute displaced fracture. IMPRESSION: No evidence of an acute cardiopulmonary process. Support device as above. Radiodensities projecting just lateral to the right scapula is favored may represent findings external to the patient. I have reviewed the resident's preliminary report and agree with findings and impression. Interpreted by: Bubba Sorto Preliminary Report By: Mikey Wren Electronically signed By Bubba Sorto Dictated Date: 05/26/2024 9:26:30 PM Prelim Date: 05/26/2024 9:29:19 PM Sign Date: 05/26/2024 9:32:39 PM Ordering Provider: GAUTAM ADAM Normal [facility] Lower GI hemoglobin IA Ql (S tl)Ordered By: Andressa Haney on 05-03-2024 Stool Occult Blood (MIGDALIA) [facility] Stool Occult Blood iFOBon STOB Normal [facility] Comment on above: Performed By: #### M 100.7900 ####[facility] [id number] [place], [place], [id number] Stool gastrointestinal hemog lobin detection by immunologic methodOrdered By: Andressa Haney on 05-03-2024 Lower GI hemoglobin IA Ql (Stl) [facility] Gastroenterology Visit Repor ton 04-30-2024 Gastroenterology Visit Report Normal [facility] Bedside Glucoseon 04-15-2024 FINGERSTICK GLU 122 mg/dL High 74-106 [facility] Comment on above: Result Comment: DILIA SALCEDO OF PATIENT CARE PER NURSING PROTOCOL Performed By: #### L 501.080 ####[facility] [address] [place], [place], [address] Colonoscopy Reporton 025 Colonoscopy Report Normal [facility] EGD Reporton 04-15-2024 EGD Report Normal [facility] deOrdered By: Ken Xie on 04-15-2024 Bedside Glucose (Misc Panel) 122 mg/dL High 74-106 [facility] Comment on above: MANAGEMENT OF PATIEN T CARE PER NURSING PROTOCOL Glucose [Mass/Vol] 122 mg/dL High 74-106 [facility] Comment on above: MANAGEMENT OF PATIEN T CARE PER NURSING PROTOCOL H Pylori (initial)on 025 H Pylori (initial) Normal [facility] Comment on above: Performed By: #### P H.PYLORI ####[facility] [id number] [place], [place], [id number] MR/POSTOP.ANEon 04-15-2024 MR/POSTOP.ANE Normal [facility] MR/[id number] 04-15-2024 MR/POSTOPAN2 Normal [facility] Surgery Specimen Level Naina 04-15-2024 Surgery Specimen Level IV Normal [facility] Comment on above: Performed By: #### P SUIV ####[facility] [id number] [place], [place], [address] MR/PAT.ANEon 04-12-2024 MR/PAT.ANE Normal [facility] CBC W Auto Differential pane l (Bld)on 04-11-2024 Basophils (Bld) [#/Vol] 0.03 10*3/uL [facility] Basophils/100 WBC (Bld) 0.4 % C [facility] Differential cell count method Nom (Bld) Auto [facility] Eosinophils (Bld) [#/Vol] 0.23 10*3/uL [facility] Eosinophils/100 WBC (Bld) 3.2 % [facility] Erythrocyte distribution width (RBC) [Ratio] 19.3 % High 11.5 - 15.0 % [facility] Hematocrit (Bld) [Volume fraction] 36.9 % 36.0 - 46.0 % [facility] Hemoglobin (Bld) [Mass/Vol] 10.9 g/dL Low 11.5 - 15.5 g/dL [facility] Immature granulocytes (Bld) [#/Vol] 0.03 10*3/uL [facility] Immature granulocytes/100 WBC (Bld) 0.4 % [facility] Interpretation and review of laboratory results Abnormal [facility] Lymphocytes (Bld) [#/Vol] 2.65 10*3/uL [facility] Lymphocytes/100 WBC (Bld) 36.6 % [facility] MCH (RBC) [Entitic mass] 24.8 pg Low 26.0 - 34.0 pg [facility] MCHC (RBC) [Mass/Vol] 29.5 g/dL Low 30.5 - 36.0 g/dL [facility] MCV (RBC) [Entitic vol] 83.9 fL 80.0 - 100.0 fL [facility] Monocytes (Bld) [#/Vol] 0.42 10*3/uL [facility] Monocytes/100 WBC (Bld) 5.8 % C [facility] Neutrophils (Bld) [#/Vol] 3.89 10*3/uL [facility] Neutrophils/100 WBC (Bld) 53.6 % [facility] Nucleated RBC (Bld) [#/Vol] NINF [facility] Nucleated RBC/100 WBC (Bld) [Ratio] 0.0 % /100 WBC [facility] Platelet mean volume (Bld) [Entitic vol] 10.1 fL 9.0 - 12.7 fL [facility] Platelets (Bld) [#/Vol] 315 10*3/uL [facility] RBC (Bld) [#/Vol] 4.40 10*6/uL 3.90 - 5.2 0 m/uL [facility] WBC (Bld) [#/Vol] 7.25 10*3/uL [facility] Basophils (Bld) [#/Vol] 0.03 10*3/uL Normal <0.11 [facility] Comment on above: Order Comment: Speci men Type: BLOOD SPECIMEN Ordering Facility: Address: [address] [place] [address] Performed By: #### 5 7021-8 #### [facility] CLIA [id number] [address] Basophils/100 WBC (Bld) 0.4 % Normal A [facility] Comment on above: Order Comment: Speci men Type: BLOOD SPECIMEN Ordering Facility: Address: [address] [place] [address] Performed By: #### 5 7021-8 #### [facility] CLIA [id number] [address] Differential cell count method Nom (Bld) Auto Normal [facility] Comment on above: Order Comment: Speci men Type: BLOOD SPECIMEN Ordering Facility: Address: [address] [place] [address] Performed By: #### 5 7021-8 #### [facility] CLIA [id number] [address] [place] Eosinophils (Bld) [#/Vol] 0.23 10*3/uL Normal <0.46 [facility] Comment on above: Order Comment: Speci men Type: BLOOD SPECIMEN Ordering Facility: Address: [address] [place] [address] Performed By: #### 5 7021-8 #### [facility] CLIA [id number] [address] [place] Eosinophils/100 WBC (Bld) 3.2 % Normal [facility] Comment on above: Order Comment: Speci men Type: BLOOD SPECIMEN Ordering Facility: Address: [address] [place] [address] Performed By: #### 5 7021-8 #### [facility] CLIA [id number] [address] Erythrocyte distribution width (RBC) [Ratio] 19.3 % High 11.5-15.0 [facility] Comment on above: Order Comment: Speci men Type: BLOOD SPECIMEN Ordering Facility: Address: [address] [place] [address] Performed By: #### 5 7021-8 #### [facility] CLIA [id number] [address] OF [facility] Hematocrit (Bld) [Volume fraction] 36.9 % Normal 36.0-46.0 [facility] Comment on above: Order Comment: Speci men Type: BLOOD SPECIMEN Ordering Facility: Address: [address] [place] [address] Performed By: #### 5 7021-8 #### [facility] CLIA [id number] [address] [place] Hemoglobin (Bld) [Mass/Vol] 10.9 g/dL Low 11.5-15.5 [facility] Comment on above: Order Comment: Speci men Type: BLOOD SPECIMEN Ordering Facility: Address: [facility] [place] [address] Performed By: #### 5 7021-8 #### [facility] CLIA [id number] [address] Immature granulocytes (Bld) [#/Vol] 0.03 10*3/uL Normal <0.10 [facility] Comment on above: Order Comment: Speci men Type: BLOOD SPECIMEN Ordering Facility: Address: [address] [place] [address] Performed By: #### 5 7021-8 #### [facility] CLIA [id number] [address] Immature granulocytes/100 WBC (Bld) 0.4 % Normal [facility] Comment on above: Order Comment: Speci men Type: BLOOD SPECIMEN Ordering Facility: Address: [address] [place] [address] Performed By: #### 5 7021-8 #### [facility] CLIA [id number] [address] Lymphocytes (Bld) [#/Vol] 2.65 10*3/uL Normal 1.00-4.00 [facility] Comment on above: Order Comment: Speci men Type: BLOOD SPECIMEN Ordering Facility: Address: [address] [place] [address] Performed By: #### 5 7021-8 #### [facility] CLIA [id number] [address] Lymphocytes/100 WBC (Bld) 36.6 % Normal [facility] Comment on above: Order Comment: Speci men Type: BLOOD SPECIMEN Ordering Facility: Address: [address] [place] [address] Performed By: #### 5 7021-8 #### [facility] CLIA [id number] [address] [place] MCH (RBC) [Entitic mass] 24.8 pg Low 26.0-34.0 [facility] Comment on above: Order Comment: Speci men Type: BLOOD SPECIMEN Ordering Facility: Address: [place] [address] Performed By: #### 5 7021-8 #### [facility] CLIA [id number] [address] MCHC (RBC) [Mass/Vol] 29.5 g/dL Low 30.5-36.0 [facility] Comment on above: Order Comment: Speci men Type: BLOOD SPECIMEN Ordering Facility: Address: [address] [place] [address] Performed By: #### 5 7021-8 #### [facility] CLIA [id number] [address] MCV (RBC) [Entitic vol] 83.9 fL Normal 80.0-100.0 [facility] Comment on above: Order Comment: Speci men Type: BLOOD SPECIMEN Ordering Facility: Address: [address] [place] [address] Performed By: #### 5 7021-8 #### [facility] CLIA [id number] [address] Monocytes (Bld) [#/Vol] 0.42 10*3/uL Normal <0.87 [facility] Comment on above: Order Comment: Speci men Type: BLOOD SPECIMEN Ordering Facility: Address: [address] [place] [address] Performed By: #### 5 7021-8 #### [facility] CLIA [id number] [address] Monocytes/100 WBC (Bld) 5.8 % Normal [facility] Comment on above: Order Comment: Speci men Type: BLOOD SPECIMEN Ordering Facility: Address: [address] [place] [address] Performed By: #### 5 7021-8 #### [facility] CLIA [id number] [address] [place] Neutrophils (Bld) [#/Vol] 3.89 10*3/uL Normal 1.45-7.50 [facility] Comment on above: Order Comment: Speci men Type: BLOOD SPECIMEN Ordering Facility: Address: [address] [place] [address] Performed By: #### 5 7021-8 #### [facility] CLIA [id number] [address] Neutrophils/100 WBC (Bld) 53.6 % Normal [facility] Comment on above: Order Comment: Speci men Type: BLOOD SPECIMEN Ordering Facility: Address: [address] [place] [address] Performed By: #### 5 7021-8 #### [facility] CLIA [id number] [address] Nucleated RBC (Bld) [#/Vol] 10*3/uL Normal <0.01 [facility] Comment on above: Order Comment: Speci men Type: BLOOD SPECIMEN Ordering Facility: Address: [address] [place] [address] Performed By: #### 5 7021-8 #### [facility] CLIA [id number] [address] Nucleated RBC/100 WBC (Bld) [Ratio] 0.0 /100 WBC Normal [facility] Comment on above: Order Comment: Speci men Type: BLOOD SPECIMEN Ordering Facility: Address: [address] [place] [address] Performed By: #### 5 7021-8 #### [facility] CLIA [id number] [address] Platelet mean volume (Bld) [Entitic vol] 10.1 fL Normal 9.0-12.7 [facility] Comment on above: Order Comment: Speci men Type: BLOOD SPECIMEN Ordering Facility: Address: [facility] [place] [address] Performed By: #### 5 7021-8 #### [facility] CLIA [id number] [address] Platelets (Bld) [#/Vol] 315 10*3/uL Normal 150-400 [facility] Comment on above: Order Comment: Speci men Type: BLOOD SPECIMEN Ordering Facility: Address: [address] [place] [address] Performed By: #### 5 7021-8 #### [facility] CLIA [id number] [address] RBC (Bld) [#/Vol] 4.40 10*6/uL Normal 3.90-5.20 [facility] Comment on above: Order Comment: Speci men Type: BLOOD SPECIMEN Ordering Facility: Address: [address] [place] [address] Performed By: #### 5 7021-8 #### [facility] CLIA [id number] [address] WBC (Bld) [#/Vol] 7.25 10*3/uL Normal 3.70-11.00 [facility] Comment on above: Order Comment: Speci men Type: BLOOD SPECIMEN Ordering Facility: Address: [address] [place] [address] Performed By: #### 5 7021-8 #### [facility] CLIA [id number] [address] Comprehensive metabolic 2000 panelon 04-11-2024 Albumin [Mass/Vol] 4.1 g/dL 3.9 - 4.9 g/dL [facility] ALP [Catalytic activity/Vol] 88 U/L 34 - 123 U/L [facility] ALT [Catalytic activity/Vol] 19 U/L 7 - 38 U/L [facility] Anion gap [Moles/Vol] 8 mmol/L 8 - 15 mmol/L [facility] AST [Catalytic activity/Vol] 13 U/L 13 - 35 U/L [facility] Bilirubin [Mass/Vol] 0.4 mg/dL 0.2 - 1 .3 mg/dL [facility] Comment on above: Use of this assay is not recommended for patients undergoing treatment with eltrombopag due to the potential for falsely elevated results. Calcium [Mass/Vol] 9.5 mg/dL 8.5 - 10. 2 mg/dL [facility] Chloride [Moles/Vol] 106 mmol/L 98 - 10 7 mmol/L [facility] CO2 [Moles/Vol] 25 mmol/L 22 - 30 mmol/L [facility] Creatinine [Mass/Vol] 0.54 mg/dL Low 0.58 - 0.96 mg/dL [facility] Comment on above: Use of this assay is not recommended for patients undergoing treatment with phenindione, due to the potential for falsely depressed results. GFR/1.73 sq M.predicted among non-blacks MDRD (S/P/Bld) [Vol rate/Area] 104 mL/min/{1.73_m2} - PINF [facility] Comment on above: Estimated Glomerular Filtration Rate (eGFR) is calculated using the 2020 CKD-EPI creatinine equation. This equation utilizes serum creatinine, sex, and age as parameters. The creatinine assay has traceable calibration to isotope dilution-mass spectrometry. Refer to KDIGO guidelines for clinical interpretation. In patients with unstable renal function, e.g. those with acute kidney injury, the eGFR may not accurately reflect actual GFR. Glucose [Mass/Vol] 148 mg/dL High 74 - 99 mg/dL [facility] Comment on above: The [place] Diabete s Association (ADA) provides guidance for cutoff values for fasting glucose and random glucose. The ADA defines fasting as no caloric intake for at least 8 hours. Fasting plasma glucose results between 100 to 125 mg/dL indicate increased risk for diabetes (prediabetes). Fasting plasma glucose results greater than or equal to 126 mg/dL meet the criteria for diagnosis of diabetes. In the absence of unequivocal hyperglycemia, results should be confirmed by repeat testing. In a patient with classic symptoms of hyperglycemia or hyperglycemic crisis, random plasma glucose results greater than or equal to 200 mg/dL meet the criteria for diagnosis of diabetes. Reference: Standards of Medical Care in Diabetes 2016, [place] [employer]. Diabetes Care. 2016.39(Suppl 1). Interpretation and review of laboratory results Abnormal [facility] Potassium [Moles/Vol] 3.5 mmol/L Low 3.7 - 5.1 mmol/L [facility] Protein [Mass/Vol] 7.1 g/dL 6.3 - 8.0 g/dL [facility] Sodium [Moles/Vol] 139 mmol/L 136 - 144 mmol/L [facility] Urea nitrogen [Mass/Vol] 12 mg/dL 7 - 21 mg/dL [facility] Albumin [Mass/Vol] 4.1 g/dL Normal 3.9-4.9 [facility] Comment on above: Order Comment: Speci men Type: BLOOD SPECIMENOrdering Facility: Address: [address] [place] [address] Performed By: #### 2 4323-8 ####[facility] [id number] [place] [address] [place] ALP [Catalytic activity/Vol] 88 U/L Normal 34-123 [facility] Comment on above: Order Comment: Speci men Type: BLOOD SPECIMENOrdering Facility: Address: [address] [place] [address] Performed By: #### 2 4323-8 ####[facility] [id number] [place] [address] [place] ALT [Catalytic activity/Vol] 19 U/L Normal 7-38 [facility] Comment on above: Order Comment: Speci men Type: BLOOD SPECIMENOrdering Facility: Address: [address] [place] [address] Performed By: #### 2 4323-8 ####[facility] [id number] [place] [id number] [place] Anion gap [Moles/Vol] 8 mmol/L Normal 8-15 [facility] Comment on above: Order Comment: Speci men Type: BLOOD SPECIMENOrdering Facility: Address: [address] [place] [address] Performed By: #### 2 4323-8 ####[facility] [id number] [place] [address] [place] AST [Catalytic activity/Vol] 13 U/L Normal 13-35 [facility] Comment on above: Order Comment: Speci men Type: BLOOD SPECIMENOrdering Facility: Address: [address] [place] [address] Performed By: #### 2 4323-8 ####[facility] [id number] [place] [address] [place] Bilirubin [Mass/Vol] 0.4 mg/dL Normal 0.2-1.3 [facility] Comment on above: Order Comment: Speci men Type: BLOOD SPECIMENOrdering Facility: Address: [address] [place] [address] Result Comment: Use of this assay is not recommended for patients undergoing treatment with eltrombopag due to the potential for falsely elevated results. Performed By: #### 2 4323-8 ####[facility] [id number] [place] [address] [place] Calcium [Mass/Vol] 9.5 mg/dL Normal 8.5-10.2 [facility] Comment on above: Order Comment: Speci men Type: BLOOD SPECIMENOrdering Facility: Address: [address] [place] [address] Performed By: #### 2 4323-8 ####[facility] [id number] [place] [address] [place] Chloride [Moles/Vol] 106 mmol/L Normal 98-107 [facility] Comment on above: Order Comment: Speci men Type: BLOOD SPECIMENOrdering Facility: Address: [address] [place] [address] Performed By: #### 2 4323-8 ####[facility] [id number] [place] [address] [place] CO2 [Moles/Vol] 25 mmol/L Normal 22-30 [facility] Comment on above: Order Comment: Speci men Type: BLOOD SPECIMENOrdering Facility: Address: [address] [place] [address] Performed By: #### 2 4323-8 ####[facility] [id number] [place] [address] [place] Creatinine [Mass/Vol] 0.54 mg/dL Low 0.58-0.96 [facility] Comment on above: Order Comment: Matt patricio Type: BLOOD SPECIMENOrdering Facility: Address: [address] [place] [address] Result Comment: Use of this assay is not recommended for patients undergoing treatment with phenindione, due to the potential for falsely depressed results. Performed By: #### 2 4323-8 ####[facility] [id number] [address] Creatinine and Glomerular filtration rate.predicted panel (S/P/Bld) 104 mL/min/1.73m??? Normal >=60 [facility] Comment on above: Order Comment: Matt patricio Type: BLOOD SPECIMENOrdering Facility: Address: [address] [place] [address] Result Comment: Glynn mated Glomerular Filtration Rate (eGFR) is calculated using the 2020 CKD-EPI creatinine equation. This equation utilizes serum creatinine, sex, and age as parameters. The creatinine assay has traceable calibration to isotope dilution-mass spectrometry. Refer to KDIGO guidelines for clinical interpretation. In patients with unstable renal function, e.g. those with acute kidney injury, the eGFR may not accurately reflect actual GFR. Performed By: #### 2 4323-8 ####[facility] [id number] [address] [place] Glucose [Mass/Vol] 148 mg/dL High 74-99 [facility] Comment on above: Order Comment: Matt sheng Type: BLOOD SPECIMENOrdering Facility: Address: [address] [place] [address] Result Comment: The [place] Diabetes Association (ADA) provides guidance for cutoff values for fasting glucose and random glucose. The ADA defines fasting as no caloric intake for at least 8 hours. Fasting plasma glucose results between 100 to 125 mg/dL indicate increased risk for diabetes (prediabetes). Fasting plasma glucose results greater than or equal to 126 mg/dL meet the criteria for diagnosis of diabetes. In the absence of unequivocal hyperglycemia, results should be confirmed by repeat testing. In a patient with classic symptoms of hyperglycemia or hyperglycemic crisis, random plasma glucose results greater than or equal to 200 mg/dL meet the criteria for diagnosis of diabetes. Reference: Standards of Medical Care in Diabetes 2016, [place] Diabetes Association. Diabetes Care. 2016.39(Suppl 1). Performed By: #### 2 4323-8 ####[facility] [id number] [place] [address] [place] Potassium [Moles/Vol] 3.5 mmol/L Low 3.7-5.1 [facility] Comment on above: Order Comment: Speci men Type: BLOOD SPECIMENOrdering Facility: Address: [address] [place] [address] Performed By: #### 2 4323-8 ####[facility] [id number] [address] STATES OF [facility] Protein [Mass/Vol] 7.1 g/dL Normal 6.3-8.0 [facility] Comment on above: Order Comment: Speci men Type: BLOOD SPECIMENOrdering Facility: Address: [address] [place] [address] Performed By: #### 2 4323-8 ####[facility] [id number] [address] STATES [facility] Sodium [Moles/Vol] 139 mmol/L Normal 136-144 [facility] Comment on above: Order Comment: Speci men Type: BLOOD SPECIMENOrdering Facility: Address: [address] [place] [address] Performed By: #### 2 4323-8 ####[facility] [id number] [place] [address] [place] Urea nitrogen [Mass/Vol] 12 mg/dL Normal 7-21 [facility] Comment on above: Order Comment: Speci men Type: BLOOD SPECIMENOrdering Facility: Address: [address] [place] [address] Performed By: #### 2 4323-8 ####[facility] [id number] [place] [address] [place] L501.4020on 03-11-2024 TROPONIN-I HS 412 pg/mL Invalid Interpretation Code 3.0-54.0 [facility] Comment on above: Order Comment: 'TROP ' Serial specimen #1, #2 or #3: 3 Result Comment: Marybeth ical Result(s) Called at: 04:15:30 03/11/2024 by: Karin. to [employer]. Results read back by same. Please Note: New Test Units and Gender Specific Reference Ranges. For more information see Policy Stat Procedure [place] High Sensitivity Troponin (TNIH) and attachments. Performed By: #### L 501.4020 ####[facility] [address] [place], [address] Troponin IOrdered By: Osmani Marie on 03-11-2024 Troponin I High Sensitivity 412 pg/mL High 3.0-54.0 [facility] Comment on above: Critical Result(s) C alled at: 04:15:30 03/11/2024 by: Pj Oswald. to [employer]. Results read back by same. Please Note: New Test Units and Gender Specific Reference Ranges. For more information see Policy Stat Procedure [place] High Sensitivity Troponin (TNIH) and attachments. 12 Lead EKGon 03-10-2024 12 Lead EKG Normal [facility] Absolute neutrophil countOrd ered By: Paco Sellers on 03-10-2024 Neutrophils (Bld) [#/Vol] 8.0 10*3/uL High 2.0-7.7 [facility] Basic Metabolic Profile (BMP )on 03-10-2024 BUN/CRE 13.4 RATIO Normal 10-20 [facility] Comment on above: Order Comment: 1Y Performed By: #### L 100.0100, L500.2500, L501.5425 ####[facility] [address] [place], [place], [address] CA,Total 9.3 mg/dL Normal 8.5-10.1 [facility] Comment on above: Order Comment: 1Y Performed By: #### L 100.0100, L500.2500, L501.5425 ####[facility] [address] [place], [address] Chloride [Moles/Vol] 103 mmol/L Normal 98-107 [facility] Comment on above: Order Comment: 1Y Performed By: #### L 100.0100, L500.2500, L501.5425 ####[facility] [address] [place], [address] CO2 [Moles/Vol] 26.0 mmol/L Normal 21.0-32.0 [facility] Comment on above: Order Comment: 1Y Performed By: #### L 100.0100, L500.2500, L501.5425 ####[facility] [address] [place], [address] Creatinine [Mass/Vol] 0.67 mg/dL Normal 0.55-1.02 [facility] Comment on above: Order Comment: 1Y Result Comment: The validity of the calculated GFR GFRAA in patients over70 years has not been determined. Clinical correlation isessential. Performed By: #### L 100.0100, L500.2500, L501.5425 ####[facility] [address] [place], [address] ECRCL 84.43 ml/min Normal [facility] Comment on above: Order Comment: 1Y Performed By: #### L 100.0100, L500.2500, L501.5425 ####[facility] [address] [place], [address] EST GFR - AA 114 mL/min Normal >60 [facility] Comment on above: Order Comment: 1Y Result Comment: Afri can [place] GFR Calc Performed By: #### L 100.0100, L500.2500, L501.5425 ####[facility] [address] [place], [address] GAP 8 Normal 5-15 [facility] Comment on above: Order Comment: 1Y Performed By: #### L 100.0100, L500.2500, L501.5425 ####[facility] [address] [place], [address] GFR/1.73 sq M.predicted among non-blacks MDRD (S/P/Bld) [Vol rate/Area] 94 mL/min/{1.73_m2} Normal >60 [facility] Comment on above: Order Comment: 1Y Result Comment: Non- GFR Calc Performed By: #### L 100.0100, L500.2500, L501.5425 ####[facility] [address] [place], [address] Glucose [Mass/Vol] 349 mg/dL High 74-106 [facility] Comment on above: Order Comment: 1Y Result Comment: Gluc ose result greater than or equal to 200 mg/dLsuggests DIABETES MELLITUS per A.D.A. criteria. Performed By: #### L 100.0100, L500.2500, L501.5425 ####[facility] [address] [place], [address] Potassium [Moles/Vol] 3.4 mmol/L Low 3.5-5.1 [facility] Comment on above: Order Comment: 1Y Performed By: #### L 100.0100, L500.2500, L501.5425 ####[facility] [address] [place], [address] Sodium [Moles/Vol] 137 mmol/L Normal 136-145 [facility] Comment on above: Order Comment: 1Y Performed By: #### L 100.0100, L500.2500, L501.5425 ####[facility] [address] [place], [address] Urea nitrogen [Mass/Vol] 9 mg/dL Normal 7-18 [facility] Comment on above: Order Comment: 1Y Performed By: #### L 100.0100, L500.2500, L501.5425 ####[facility] [address] [place], [address] Basophil percentageOrdered B y: Paco Sellers on 03-10-2024 Basophils/100 WBC (Bld) 0.3 % 0-[address] [facility] Blood urea nitrogen (BUN)/cr eatinine ratioOrdered By: Paco Sellers on 03-10-2024 Urea nitrogen/Creatinine [Mass ratio] 13.4 mg/mg 10-20 [facility] CBC W/Diff, Automatedon Absolute Lymph 1.59 X10 3/uL Normal 0.83-4.51 [facility] Comment on above: Performed By: #### L 100.0100, L500.2500, L501.5425 ####[facility] [address] [place], [address] Absolute Neut 8.0 X10 3/uL High 2.0-7.7 [facility] Comment on above: Performed By: #### L 100.0100, L500.2500, L501.5425 ####[facility] [address] [place], [address] Basophils/100 WBC (Bld) 0.3 % Normal 0-[address] [facility] Comment on above: Performed By: #### L 100.0100, L500.2500, L501.5425 ####[facility] [address] [place], [address] Eosinophils/100 WBC (Bld) 1.1 % Normal 0-5 [facility] Comment on above: Performed By: #### L 100.0100, L500.2500, L501.5425 ####[facility] [address] [place], [address] Erythrocyte distribution width (RBC) [Ratio] 17.8 % High 11.6-14.6 [facility] Comment on above: Performed By: #### L 100.0100, L500.2500, L501.5425 ####[facility] [address] [place], [address] Hematocrit (Bld) [Volume fraction] 33.5 % Low 37-47 [facility] Comment on above: Performed By: #### L 100.0100, L500.2500, L501.5425 ####[facility] [address] [place], [address] Hemoglobin (Bld) [Mass/Vol] 10.2 g/dL Low 12.0-15.0 [facility] Comment on above: Performed By: #### L 100.0100, L500.2500, L501.5425 ####[facility] [address] [place], [address] IG% 1.100 High 0.0-0.9 [facility] Comment on above: Result Comment: IG% - Immature Granulocytes (promyelocytes, myelocytes andmetamyelocytes) > 1% indicates that a LEFT SHIFT is Present. Performed By: #### L 100.0100, L500.2500, L501.5425 ####[facility] [address] [place], [address] Lymphocytes/100 WBC (Bld) 14.8 % Low 19-41 [facility] Comment on above: Performed By: #### L 100.0100, L500.2500, L501.5425 ####[facility] [address] [place], [address] MCH (RBC) [Entitic mass] 24.2 pg Low 27.0-32.0 [facility] Comment on above: Performed By: #### L 100.0100, L500.2500, L501.5425 ####[facility] [address] [place], [address] MCHC (RBC) [Mass/Vol] 30.4 g/dL Low 32-36 [facility] Comment on above: Performed By: #### L 100.0100, L500.2500, L501.5425 ####[facility] [address] [place], [address] MCV (RBC) [Entitic vol] 79.4 fL Low 81-[address] [facility] Comment on above: Performed By: #### L 100.0100, L500.2500, L501.5425 ####[facility] [address] [place], [address] Monocytes/100 WBC (Bld) 8.6 % Normal 0-[address] [facility] Comment on above: Performed By: #### L 100.0100, L500.2500, L501.5425 ####[facility] [address] [place], [address] Neutrophils/100 WBC (Bld) 74.1 % High 47-70 [facility] Comment on above: Performed By: #### L 100.0100, L500.2500, L501.5425 ####[facility] [address] [place], [address] Nucleated RBC (Bld) [#/Vol] 0 10*3/uL Normal 0-5 [facility] Comment on above: Performed By: #### L 100.0100, L500.2500, L501.5425 ####[facility] [address] [place], [address] Platelet mean volume (Bld) [Entitic vol] 9.3 fL Normal 6.2-12.0 [facility] Comment on above: Performed By: #### L 100.0100, L500.2500, L501.5425 ####[facility] [address] [place], [address] Platelets (Bld) [#/Vol] 311 10*3/uL Normal 150-450 [facility] Comment on above: Performed By: #### L 100.0100, L500.2500, L501.5425 ####[facility] [address] [place], [address] RBC (Bld) [#/Vol] 4.22 10*6/uL Normal 4.2-5.4 [facility] Comment on above: Performed By: #### L 100.0100, L500.2500, L501.5425 ####[facility] [address] [place], [address] RDW SD 51.0 fl High 35.1-43.9 [facility] Comment on above: Performed By: #### L 100.0100, L500.2500, L501.5425 ####[facility] [address] [place], [address] WBC (Bld) [#/Vol] 10.8 10*3/uL Normal 4.4-11.0 [facility] Comment on above: Performed By: #### L 100.0100, L500.2500, L501.5425 ####[facility] [address] [place], [address] CTA Chest W/WO Contraston CTA Chest W/WO Contrast Normal [facility] Carbon dioxide measurementOr dered By: Paco Sellers on 03-10-2024 CO2 [Moles/Vol] 26.0 mmol/L 21.0-32.0 [facility] Chest PA and Lateralon 03-10 Chest PA and Lateral Normal [facility] Chloride measurementOrdered By: Paco Sellers on 03-10-2024 Chloride [Moles/Vol] 103 mmol/L 98-107 [facility] Emergency Department Summary on 03-10-2024 Emergency Department Summary Normal [facility] Eosinophil percentageOrdered By: Paco Sellers on 03-10-2024 Eosinophils/100 WBC (Bld) 1.1 % 0-5 [facility] Erythrocyte distribution wid th ratioOrdered By: Paco Sellers on 03-10-2024 Erythrocyte distribution width (RBC) [Ratio] 17.8 % High 11.6-14.6 [facility] Erythrocyte distribution wid th standard deviationOrdered By: Paco Sellers on 03-10-2024 Erythrocyte distribution width (RBC) [Entitic vol] 51.0 fL High 35.1-43.9 [facility] Estimated glomerular filtrat ion rate (GFR) AmericanOrdered By: Paco Sellers on 03-10-2024 Estimated GFR (MDRD) Amer 114 mL/min >60 [facility] Comment on above: GFR Calc Estimation of creatinine debbie aranceOrdered By: Paco Sellers on 03-10-2024 Estimated Creatinine Clearance Calc 84.43 ml/min [facility] Glomerular filtration rate ( GFR) estimationOrdered By: Paco Sellers on 03-10-2024 Estimated GFR (MDRD) Non-Af Amer 94 mL/min >60 [facility] Comment on above: Non- GFR Calc Glucose measurementOrdered B y: Paco Sellers on 03-10-2024 Glucose [Mass/Vol] 349 mg/dL High 74-106 [facility] Comment on above: Glucose result great er than or equal to 200 mg/dLsuggests DIABETES MELLITUS per A.D.A. criteria. Hematocrit Auto (Bld) [Volum e fraction]Ordered By: Paco Sellers on 03-10-2024 Hematocrit (Bld) [Volume fraction] 33.5 % Low 37-47 [facility] Hemoglobin measurementOrdere d By: Paco Sellers on 03-10-2024 Hemoglobin (Bld) [Mass/Vol] 10.2 g/dL Low 12.0-15.0 [facility] Immature granulocytes/100 WB C Auto (Bld)Ordered By: Paco Sellers on 03-10-2024 Immature granulocytes/100 WBC (Bld) 1.100 % High 0.0-0.9 [facility] Comment on above: IG% - Immature Granu locytes (promyelocytes, myelocytes and metamyelocytes) > 1% indicates that a LEFT SHIFT is Present. Influenza virus A and B and SARS-CoV-2 (COVID-19) and Respiratory syncytial virus RNAOrdered By: Paco Sellers on 03-10-2024 SARS-CoV-2 (COVID-19) RNA RAMIREZ+probe Ql (Unsp spec) SARS-CoV-2 (COVID 19 PCR) Abnormal [facility] L501.4020on 03-10-2024 TROPONIN-I HS 508 pg/mL Invalid Interpretation Code 3.0-54.0 [facility] Comment on above: Result Comment: Crit ical Result(s) Called at: 23:43:14 03/10/2024 by: Karin. velasquez [employer]. Results read back by same. Please Note: New Test Units and Gender Specific Reference Ranges. For more information see Policy Stat Procedure [place] High Sensitivity Troponin (TNIH) and attachments. Performed By: #### L 501.4020 ####[facility] [address] [place], [address] L501.5425on 03-10-2024 TROPONIN-I HS 502 pg/mL Invalid Interpretation Code 3.0-54.0 [facility] Comment on above: Order Comment: 1Y Result Comment: Crit ical Result(s) Called at: 21:21:21 03/10/2024 by: BERNARDINO. Results read back by Samuel Salinas Please Note: New Test Units and Gender Specific Reference Ranges. For more information see Policy Stat Procedure [place] High Sensitivity Troponin (TNIH) and attachments. Performed By: #### L 100.0100, L500.2500, L501.5425 ####[facility] [address] [place], [address] Lymphocytes Auto (Unsp spec) [#/Vol]Ordered By: Paco Sellers on 03-10-2024 Lymphocytes (Bld) [#/Vol] 1.59 10*3/uL 0.83-4.51 [facility] Lymphocytes/100 WBC Auto (Un sp spec)Ordered By: Paco Sellers on 03-10-2024 Lymphocytes/100 WBC (Bld) 14.8 % Low 19-41 [facility] M100.678on 03-10-2024 M100.678 Normal [facility] Comment on above: Performed By: #### M 100.678 ####[facility] [address] [place], [address] MCV (mean corpuscular volume ) determinationOrdered By: Paco Sellers on 03-10-2024 MCV (RBC) [Entitic vol] 79.4 fL Low 81-[address] [facility] Mean corpuscular hemoglobin (MCH) determinationOrdered By: Paco Sellers on 03-10-2024 MCH (RBC) [Entitic mass] 24.2 pg Low 27.0-32.0 [facility] Mean corpuscular hemoglobin concentration (MCHC) determinationOrdered By: Paco Sellers on 03-10-2024 MCHC (RBC) [Mass/Vol] 30.4 g/dL Low 32-36 [facility] Mean platelet volume determi nationOrdered By: Paco Sellers on 03-10-2024 Platelet mean volume (Bld) [Entitic vol] 9.3 fL 6.2-12.0 [facility] Monocyte percentageOrdered B y: Paco Sellers on 03-10-2024 Monocytes/100 WBC (Bld) 8.6 % 0-[address] [facility] Neutrophil percentageOrdered By: Paco Sellers on 03-10-2024 Neutrophils/100 WBC (Bld) 74.1 % High 47-70 [facility] Nucleated red blood cell per centageOrdered By: Paco Sellers on 03-10-2024 Nucleated RBC/100 WBC (Bld) [Ratio] 0 % 0-5 [facility] Platelet countOrdered By: Nela Sellers on 03-10-2024 Platelets (Bld) [#/Vol] 311 10*3/uL 150-450 [facility] Potassium measurementOrdered By: Paco Sellers on 03-10-2024 Potassium [Moles/Vol] 3.4 mmol/L Low 3.5-5.1 [facility] RBC Auto (Bld) [#/Vol]Ordere d By: Pcao Sellers on 03-10-2024 RBC (Bld) [#/Vol] 4.22 10*6/uL 4.2-5.4 [facility] Serum anion gap measurementO rdered By: Paco Sellers on 03-10-2024 Anion gap [Moles/Vol] 8 mmol/L 5-15 [facility] Serum or plasma calcium aminta urement (mass/volume)Ordered By: Paco Sellers on 03-10-2024 Calcium [Mass/Vol] 9.3 mg/dL 8.5-10.1 [facility] Serum or plasma creatinine m easurement (mass/volume)Ordered By: Paco Sellers on 03-10-2024 Creatinine [Mass/Vol] 0.67 mg/dL 0.55-1.02 [facility] Comment on above: The validity of the calculated GFR & GFRAA in patients over 70 years has not been determined. Clinical correlation is essential. Serum or plasma urea nitroge n measurement (mass/volume)Ordered By: Paco Sellers on 03-10-2024 Urea nitrogen [Mass/Vol] 9 mg/dL 7-18 [facility] Sodium levelOrdered By: Paco Sellers on 03-10-2024 Sodium [Moles/Vol] 137 mmol/L 136-145 [facility] White blood cell (WBC) count Ordered By: Paco Sellers on 03-10-2024 WBC (Bld) [#/Vol] 10.8 10*3/uL 4.4-11.0 [facility] Basic Metabolic Profile (BMP )on 02-26-2024 BUN/CRE 16.1 RATIO Normal 10-20 [facility] Comment on above: Performed By: #### L 500.2500 ####[facility] [address] [place], [address] CA,Total 9.7 mg/dL Normal 8.5-10.1 [facility] Comment on above: Performed By: #### L 500.2500 ####[facility] [address] [place], [address] Chloride [Moles/Vol] 106 mmol/L Normal 98-107 [facility] Comment on above: Performed By: #### L 500.2500 ####[facility] [address] [place], [address] CO2 [Moles/Vol] 27.0 mmol/L Normal 21.0-32.0 [facility] Comment on above: Performed By: #### L 500.2500 ####[facility] [address] [place], [address] Creatinine [Mass/Vol] 0.62 mg/dL Normal 0.55-1.02 [facility] Comment on above: Result Comment: The validity of the calculated GFR GFRAA in patients over70 years has not been determined. Clinical correlation isessential. Performed By: #### L 500.2500 ####[facility] [address] [place], [address] EST GFR - AA 125 mL/min Normal >60 [facility] Comment on above: Result Comment: Afri can [place] GFR Calc Performed By: #### L 500.2500 ####[facility] [address] [place], [address] GAP 6 Normal 5-15 [facility] Comment on above: Performed By: #### L 500.2500 ####[facility] [address] [place], [address] GFR/1.73 sq M.predicted among non-blacks MDRD (S/P/Bld) [Vol rate/Area] 103 mL/min/{1.73_m2} Normal >60 [facility] Comment on above: Result Comment: Non- GFR Calc Performed By: #### L 500.2500 ####[facility] [address] [place], [address] Glucose [Mass/Vol] 152 mg/dL High 74-106 [facility] Comment on above: Result Comment: Fast ing Glucose result greater than or equal to 126 mg/dLsuggests DIABETES MELLITUS per A.D.A. criteria. Performed By: #### L 500.2500 ####[facility] [address] [place], [address] Potassium [Moles/Vol] 4.2 mmol/L Normal 3.5-5.1 [facility] Comment on above: Performed By: #### L 500.2500 ####[facility] [address] [place], [place], [address] Sodium [Moles/Vol] 139 mmol/L Normal 136-145 [facility] Comment on above: Performed By: #### L 500.2500 ####[facility] [address] [place], [place], [id number] Urea nitrogen [Mass/Vol] 10 mg/dL Normal 7-18 [facility] Comment on above: Performed By: #### L 500.2500 ####[facility] [address] [place], [place], [address] Blood urea nitrogen (BUN)/cr eatinine ratioOrdered By: Ana Rosa Oquendo on 02-26-2024 Urea nitrogen/Creatinine [Mass ratio] 16.1 mg/mg 10-20 [facility] Carbon dioxide measurementOr dered By: Ana Rosa Oquendo on 02-26-2024 CO2 [Moles/Vol] 27.0 mmol/L 21.0-32.0 [facility] Cardiology Visit Reporton Cardiology Visit Report Normal [facility] Chloride measurementOrdered By: Ana Rosa Oquendo on 02-26-2024 Chloride [Moles/Vol] 106 mmol/L 98-107 [facility] Estimated glomerular filtrat ion rate (GFR) AmericanOrdered By: Ana Rosa Oquendo on 02-26-2024 Estimated GFR (MDRD) Amer 125 mL/min >60 [facility] Comment on above: GFR Calc Glomerular filtration rate ( GFR) estimationOrdered By: Ana Rosa Oquendo on 02-26-2024 Estimated GFR (MDRD) Non-Af Amer 103 mL/min >60 [facility] Comment on above: Non- GFR Calc Glucose measurementOrdered B y: Ana Rosa Oquendo on 02-26-2024 Glucose [Mass/Vol] 152 mg/dL High 74-106 [facility] Comment on above: Fasting Glucose resu lt greater than or equal to 126 mg/dL suggests DIABETES MELLITUS per A.D.A. criteria. Potassium measurementOrdered By: Ana Rosa Oquendo on 02-26-2024 Potassium [Moles/Vol] 4.2 mmol/L 3.5-5.1 [facility] Serum anion gap measurementO rdered By: Ana Rosa Oquendo on 02-26-2024 Anion gap [Moles/Vol] 6 mmol/L 5-15 [facility] Serum or plasma calcium aminta urement (mass/volume)Ordered By: Ana Rosa Oquendo on 02-26-2024 Calcium [Mass/Vol] 9.7 mg/dL 8.5-10.1 [facility] Serum or plasma creatinine m easurement (mass/volume)Ordered By: Ana Rosa Oquendo on 02-26-2024 Creatinine [Mass/Vol] 0.62 mg/dL 0.55-1.02 [facility] Comment on above: The validity of the calculated GFR & GFRAA in patients over 70 years has not been determined. Clinical correlation is essential. Serum or plasma urea nitroge n measurement (mass/volume)Ordered By: Ana Rosa Oquendo on 02-26-2024 Urea nitrogen [Mass/Vol] 10 mg/dL 7-18 [facility] Sodium levelOrdered By: J Carlos Oquendo on 02-26-2024 Sodium [Moles/Vol] 139 mmol/L 136-145 [facility] 12 Lead EKGon 02-09-2024 12 Lead EKG Normal [facility] 12 Lead EKG Normal [facility] 23-AA-Iyqwwlw DOrdered By: Che Greco on 02-09-2024 Vitamin D 25-Hydroxy 72.0 ng/mL [facility] Comment on above: Vitamin D 25(OH) Sta tus Range Deficiency <20 ng/mL (50nmol/L) Insufficiency 20 - 30 ng/mL (50 - 75 nmol/L) Sufficiency 30 - 100 ng/mL (75 - 250 nmol/L) Toxicity >100 ng/mL (>250 nmol/L) Absolute neutrophil countOrd ered By: Gustabo العلي on 02-09-2024 Neutrophils (Bld) [#/Vol] 5.4 10*3/uL 2.0-7.7 [facility] Absolute neutrophil countOrd ered By: Paul Greco on 02-09-2024 Neutrophils (Bld) [#/Vol] 6.1 10*3/uL 2.0-7.7 [facility] Albumin to globulin ratioOrd ered By: Paul Greco on 02-09-2024 Albumin/Globulin [Mass ratio] 1.0 {ratio} 0.9-2.4 [facility] Basic Metabolic Profile (BMP )on 02-09-2024 BUN/CRE 16.2 RATIO Normal 10-20 [facility] Comment on above: Order Comment: 1Y Performed By: #### L 100.0100, L300.3900, L500.2500, L501.5425 ####[facility] [address] [place], [address] CA,Total 9.1 mg/dL Normal 8.5-10.1 [facility] Comment on above: Order Comment: 1Y Performed By: #### L 100.0100, L300.3900, L500.2500, L501.5425 ####[facility] [address] [place], [address] Chloride [Moles/Vol] 110 mmol/L High 98-107 [facility] Comment on above: Order Comment: 1Y Performed By: #### L 100.0100, L300.3900, L500.2500, L501.5425 ####[facility] [address] [place], [address] CO2 [Moles/Vol] 23.0 mmol/L Normal 21.0-32.0 [facility] Comment on above: Order Comment: 1Y Performed By: #### L 100.0100, L300.3900, L500.2500, L501.5425 ####[facility] [address] [place], [address] Creatinine [Mass/Vol] 0.62 mg/dL Normal 0.55-1.02 [facility] Comment on above: Order Comment: 1Y Result Comment: The validity of the calculated GFR GFRAA in patients over70 years has not been determined. Clinical correlation isessential. Performed By: #### L 100.0100, L300.3900, L500.2500, L501.5425 ####[facility] [address] [place], [address] ECRCL 91.87 ml/min Normal [facility] Comment on above: Order Comment: 1Y Performed By: #### L 100.0100, L300.3900, L500.2500, L501.5425 ####[facility] [address] [place], [address] EST GFR - AA 125 mL/min Normal >60 [facility] Comment on above: Order Comment: 1Y Result Comment: Afri can [place] GFR Calc Performed By: #### L 100.0100, L300.3900, L500.2500, L501.5425 ####[facility] [address] [place], [address] GAP 9 Normal 5-15 [facility] Comment on above: Order Comment: 1Y Performed By: #### L 100.0100, L300.3900, L500.2500, L501.5425 ####[facility] [address] [place], [address] GFR/1.73 sq M.predicted among non-blacks MDRD (S/P/Bld) [Vol rate/Area] 104 mL/min/{1.73_m2} Normal >60 [facility] Comment on above: Order Comment: 1Y Result Comment: Non- GFR Calc Performed By: #### L 100.0100, L300.3900, L500.2500, L501.5425 ####[facility] [address] [place], [address] Glucose [Mass/Vol] 147 mg/dL High 74-106 [facility] Comment on above: Order Comment: 1Y Result Comment: Fast ing Glucose result greater than or equal to 126 mg/dLsuggests DIABETES MELLITUS per A.D.A. criteria. Performed By: #### L 100.0100, L300.3900, L500.2500, L501.5425 ####[facility] [address] [place], [address] Potassium [Moles/Vol] 3.0 mmol/L Low 3.5-5.1 [facility] Comment on above: Order Comment: 1Y Performed By: #### L 100.0100, L300.3900, L500.2500, L501.5425 ####[facility] [address] [place], [address] Sodium [Moles/Vol] 141 mmol/L Normal 136-145 [facility] Comment on above: Order Comment: 1Y Performed By: #### L 100.0100, L300.3900, L500.2500, L501.5425 ####[facility] [address] [place], [address] Urea nitrogen [Mass/Vol] 10 mg/dL Normal 7-18 [facility] Comment on above: Order Comment: 1Y Performed By: #### L 100.0100, L300.3900, L500.2500, L501.5425 ####[facility] [address] [place], [address] Basophil percentageOrdered B y: Gustabo العلي on 02-09-2024 Basophils/100 WBC (Bld) 0.5 % 0-[address] [facility] Basophil percentageOrdered B y: Paul Greco on 02-09-2024 Basophils/100 WBC (Bld) 0.5 % 0-[address] [facility] Bilirubin, totalOrdered By: Paul Greco on 02-09-2024 Bilirubin [Mass/Vol] 0.80 mg/dL 0.20-1.00 [facility] Comment on above: For patients on eltr ombopag therapy, use of Dimension [place] TBIL is not recommended. Blood urea nitrogen (BUN)/cr eatinine ratioOrdered By: Gustabo العلي on 02-09-2024 Urea nitrogen/Creatinine [Mass ratio] 16.2 mg/mg 12-23 [facility] Blood urea nitrogen (BUN)/cr eatinine ratioOrdered By: Paul Greco on 02-09-2024 Urea nitrogen/Creatinine [Mass ratio] 13.1 mg/mg 12-23 [facility] CBC W/Diff, Automatedon Absolute Lymph 1.50 X10 3/uL Normal 0.83-4.51 [facility] Comment on above: Performed By: #### L 100.0100, L300.3900, L500.2500, L501.5425 ####[facility] [address] [place], [address] Absolute Neut 5.4 X10 3/uL Normal 2.0-7.7 [facility] Comment on above: Performed By: #### L 100.0100, L300.3900, L500.2500, L501.5425 ####[facility] [address] [place], [address] Basophils/100 WBC (Bld) 0.5 % Normal 0-[address] [facility] Comment on above: Performed By: #### L 100.0100, L300.3900, L500.2500, L501.5425 ####[facility] [address] [place], [address] Eosinophils/100 WBC (Bld) 1.1 % Normal 0-5 [facility] Comment on above: Performed By: #### L 100.0100, L300.3900, L500.2500, L501.5425 ####[facility] [address] [place], [address] Erythrocyte distribution width (RBC) [Ratio] 19.0 % High 11.6-14.6 [facility] Comment on above: Performed By: #### L 100.0100, L300.3900, L500.2500, L501.5425 ####[facility] [address] [place], [address] Hematocrit (Bld) [Volume fraction] 37.5 % Normal 37-47 [facility] Comment on above: Performed By: #### L 100.0100, L300.3900, L500.2500, L501.5425 ####[facility] [address] [place], [address] Hemoglobin (Bld) [Mass/Vol] 11.7 g/dL Low 12.0-15.0 [facility] Comment on above: Performed By: #### L 100.0100, L300.3900, L500.2500, L501.5425 ####[facility] [facility] [address] [place], [address] IG% 0.400 Normal 0.0-0.9 [facility] Comment on above: Result Comment: IG% - Immature Granulocytes (promyelocytes, myelocytes andmetamyelocytes) > 1% indicates that a LEFT SHIFT is Present. Performed By: #### L 100.0100, L300.3900, L500.2500, L501.5425 ####[facility] [address] [place], [address] Lymphocytes/100 WBC (Bld) 18.8 % Low 19-41 [facility] Comment on above: Performed By: #### L 100.0100, L300.3900, L500.2500, L501.5425 ####[facility] [address] [place], [address] MCH (RBC) [Entitic mass] 25.3 pg Low 27.0-32.0 [facility] Comment on above: Performed By: #### L 100.0100, L300.3900, L500.2500, L501.5425 ####[facility] [address] [place], [address] MCHC (RBC) [Mass/Vol] 31.2 g/dL Low 32-36 [facility] Comment on above: Performed By: #### L 100.0100, L300.3900, L500.2500, L501.5425 ####[facility] [address] [place], [address] MCV (RBC) [Entitic vol] 81.2 fL Normal 81-99 [facility] Comment on above: Performed By: #### L 100.0100, L300.3900, L500.2500, L501.5425 ####[facility] [address] [place], [address] Monocytes/100 WBC (Bld) 12.0 % High 0-10 [facility] Comment on above: Performed By: #### L 100.0100, L300.3900, L500.2500, L501.5425 ####[facility] [address] [place], [address] Neutrophils/100 WBC (Bld) 67.2 % Normal 47-70 [facility] Comment on above: Performed By: #### L 100.0100, L300.3900, L500.2500, L501.5425 ####[facility] [address] [place], [address] Nucleated RBC (Bld) [#/Vol] 0 10*3/uL Normal 0-5 [facility] Comment on above: Performed By: #### L 100.0100, L300.3900, L500.2500, L501.5425 ####[facility] [address] [place], [address] Platelet mean volume (Bld) [Entitic vol] 10.1 fL Normal 6.2-12.0 [facility] Comment on above: Performed By: #### L 100.0100, L300.3900, L500.2500, L501.5425 ####[facility] [address] [place], [address] Platelets (Bld) [#/Vol] 219 10*3/uL Normal 150-450 [facility] Comment on above: Performed By: #### L 100.0100, L300.3900, L500.2500, L501.5425 ####[facility] [address] [place], [address] RBC (Bld) [#/Vol] 4.62 10*6/uL Normal 4.2-5.4 [facility] Comment on above: Performed By: #### L 100.0100, L300.3900, L500.2500, L501.5425 ####[facility] [address] [place], [address] RDW SD 54.4 fl High 35.1-43.9 [facility] Comment on above: Performed By: #### L 100.0100, L300.3900, L500.2500, L501.5425 ####[facility] [address] [place], [address] WBC (Bld) [#/Vol] 8.0 10*3/uL Normal 4.4-11.0 [facility] Comment on above: Performed By: #### L 100.0100, L300.3900, L500.2500, L501.5425 ####[facility] [address] [place], [address] Absolute Lymph 1.61 X10 3/uL Normal 0.83-4.51 [facility] Comment on above: Order Comment: Order Date: 01/11/24Order Info: 0184-1 - CBCD Performed By: #### L 100.0100, L500.4050, L501.9520, L506.1000 ####[facility] [address] [place], [address] Absolute Neut 6.1 X10 3/uL Normal 2.0-7.7 [facility] Comment on above: Order Comment: Order Date: 01/11/24Order Info: 0184-1 - CBCD Performed By: #### L 100.0100, L500.4050, L501.9520, L506.1000 ####[facility] [address] [place], [address] Basophils/100 WBC (Bld) 0.5 % Normal 0-[address] [facility] Comment on above: Order Comment: Order Date: 01/11/24Order Info: 0184-1 - CBCD Performed By: #### L 100.0100, L500.4050, L501.9520, L506.1000 ####[facility] [address] [place], [address] Eosinophils/100 WBC (Bld) 1.1 % Normal 0-5 [facility] Comment on above: Order Comment: Order Date: 01/11/24Order Info: 0184-1 - CBCD Performed By: #### L 100.0100, L500.4050, L501.9520, L506.1000 ####[facility] [address] [place], [address] Erythrocyte distribution width (RBC) [Ratio] 19.4 % High 11.6-14.6 [facility] Comment on above: Order Comment: Order Date: 01/11/24Order Info: 0184-1 - CBCD Performed By: #### L 100.0100, L500.4050, L501.9520, L506.1000 ####[facility] [address] [place], [address] Hematocrit (Bld) [Volume fraction] 39.9 % Normal 37-47 [facility] Comment on above: Order Comment: Order Date: 01/11/24Order Info: 0184-1 - CBCD Performed By: #### L 100.0100, L500.4050, L501.9520, L506.1000 ####[facility] [address] [place], [address] Hemoglobin (Bld) [Mass/Vol] 12.2 g/dL Normal 12.0-15.0 [facility] Comment on above: Order Comment: Order Date: 01/11/24Order Info: 0184-1 - CBCD Performed By: #### L 100.0100, L500.4050, L501.9520, L506.1000 ####[facility] [address] [place], [address] IG% 0.500 Normal 0.0-0.9 [facility] Comment on above: Order Comment: Order Date: 01/11/24Order Info: 0184-1 - CBCD Result Comment: IG% - Immature Granulocytes (promyelocytes, myelocytes andmetamyelocytes) > 1% indicates that a LEFT SHIFT is Present. Performed By: #### L 100.0100, L500.4050, L501.9520, L506.1000 ####[facility] [address] [place], [address] Lymphocytes/100 WBC (Bld) 18.4 % Low 19-41 [facility] Comment on above: Order Comment: Order Date: 01/11/24Order Info: 0184-1 - CBCD Performed By: #### L 100.0100, L500.4050, L501.9520, L506.1000 ####[facility] [address] [place], [address] MCH (RBC) [Entitic mass] 25.1 pg Low 27.0-32.0 [facility] Comment on above: Order Comment: Order Date: 01/11/24Order Info: 0184-1 - CBCD Performed By: #### L 100.0100, L500.4050, L501.9520, L506.1000 ####[facility] [address] [place], [address] MCHC (RBC) [Mass/Vol] 30.6 g/dL Low 32-36 [facility] Comment on above: Order Comment: Order Date: 01/11/24Order Info: 0184-1 - CBCD Performed By: #### L 100.0100, L500.4050, L501.9520, L506.1000 ####[facility] [address] [place], [address] MCV (RBC) [Entitic vol] 82.1 fL Normal 81-99 [facility] Comment on above: Order Comment: Order Date: 01/11/24Order Info: 018- - CBCD Performed By: #### L 100.0100, L500.4050, L501.9520, L506.1000 ####[facility] [address] [place], [address] Monocytes/100 WBC (Bld) 10.5 % High 0-10 [facility] Comment on above: Order Comment: Order Date: 01/11/24Order Info: 018- - CBCD Performed By: #### L 100.0100, L500.4050, L501.9520, L506.1000 ####[facility] [address] [place], [address] Neutrophils/100 WBC (Bld) 69.0 % Normal 47-70 [facility] Comment on above: Order Comment: Order Date: 01/11/24Order Info: 018-1 - CBCD Performed By: #### L 100.0100, L500.4050, L501.9520, L506.1000 ####[facility] [address] [place], [address] Nucleated RBC (Bld) [#/Vol] 0 10*3/uL Normal 0-5 [facility] Comment on above: Order Comment: Order Date: 01/11/24Order Info: 0184-1 - CBCD Performed By: #### L 100.0100, L500.4050, L501.9520, L506.1000 ####[facility] [address] [place], [address] Platelet mean volume (Bld) [Entitic vol] 10.5 fL Normal 6.2-12.0 [facility] Comment on above: Order Comment: Order Date: 01/11/24Order Info: 0184-1 - CBCD Performed By: #### L 100.0100, L500.4050, L501.9520, L506.1000 ####[facility] [address] [place], [address] Platelets (Bld) [#/Vol] 246 10*3/uL Normal 150-450 [facility] Comment on above: Order Comment: Order Date: 01/11/24Order Info: 0184-1 - CBCD Performed By: #### L 100.0100, L500.4050, L501.9520, L506.1000 ####[facility] [address] [place], [address] RBC (Bld) [#/Vol] 4.86 10*6/uL Normal 4.2-5.4 [facility] Comment on above: Order Comment: Order Date: 01/11/24Order Info: 0184-1 - CBCD Performed By: #### L 100.0100, L500.4050, L501.9520, L506.1000 ####[facility] [address] [place], [address] RDW SD 56.5 fl High 35.1-43.9 [facility] Comment on above: Order Comment: Order Date: 01/11/24Order Info: 0184-1 - CBCD Performed By: #### L 100.0100, L500.4050, L501.9520, L506.1000 ####[facility] [address] [place], [address] WBC (Bld) [#/Vol] 8.8 10*3/uL Normal 4.4-11.0 [facility] Comment on above: Order Comment: Order Date: 01/11/24Order Info: 0184-1 - CBCD Performed By: #### L 100.0100, L500.4050, L501.9520, L506.1000 ####[facility] [address] [place], [address] CTA Chest W/WO Contraston CTA Chest W/WO Contrast Normal [facility] Carbon dioxide measurementOr dered By: Gustabo العلي on 02-09-2024 CO2 [Moles/Vol] 23.0 mmol/L 21.0-32.0 [facility] Carbon dioxide measurementOr dered By: Paul Greco on 02-09-2024 CO2 [Moles/Vol] 23.0 mmol/L 21.0-32.0 [facility] Chloride measurementOrdered By: Gustabo العلي on 02-09-2024 Chloride [Moles/Vol] 110 mmol/L High 98-107 [facility] Chloride measurementOrdered By: Paul Greco on 02-09-2024 Chloride [Moles/Vol] 107 mmol/L 98-107 [facility] Comprehensive Metabolic Prof ilon 02-09-2024 Albumin [Mass/Vol] 3.8 g/dL Normal 3.2-5.0 [facility] Comment on above: Order Comment: Order Date: 01/11/24Order Info: 0786-1 - CMPOrder Info: 3016-3 - TSH1 Performed By: #### L 100.0100, L500.4050, L501.9520, L506.1000 ####[facility] [address] [place], [address] Albumin/Globulin [Mass ratio] 1.0 {ratio} Normal 0.9-2.4 [facility] Comment on above: Order Comment: Order Date: 01/11/24Order Info: 0786-1 - CMPOrder Info: 3016-3 - TSH1 Performed By: #### L 100.0100, L500.4050, L501.9520, L506.1000 ####[facility] [address] [place], [address] ALK P 77 U/L Normal 45-117 [facility] Comment on above: Order Comment: Order Date: 01/11/24Order Info: 0786-1 - CMPOrder Info: 3016-3 - TSH1 Performed By: #### L 100.0100, L500.4050, L501.9520, L506.1000 ####[facility] [address] [place], [address] ALT [Catalytic activity/Vol] 21 U/L Normal 13-56 [facility] Comment on above: Order Comment: Order Date: 01/11/24Order Info: 0786-1 - CMPOrder Info: 6-3 - TSH1 Performed By: #### L 100.0100, L500.4050, L501.9520, L506.1000 ####[facility] [address] [place], [address] AST [Catalytic activity/Vol] 12 U/L Low 15-37 [facility] Comment on above: Order Comment: Order Date: 01/11/24Order Info: 0786-1 - CMPOrder Info: 3016-3 - TSH1 Performed By: #### L 100.0100, L500.4050, L501.9520, L506.1000 ####[facility] [address] [place], [address] Bilirubin [Mass/Vol] 0.80 mg/dL Normal 0.20-1.00 [facility] Comment on above: Order Comment: Order Date: 01/11/24Order Info: 0786-1 - CMPOrder Info: 3016-3 - TSH1 Result Comment: For patients on eltrombopag therapy, use of Dimension [place] TBIL is not recommended. Performed By: #### L 100.0100, L500.4050, L501.9520, L506.1000 ####[facility] [address] [place], [address] BUN/CRE 13.1 RATIO Normal 10-20 [facility] Comment on above: Order Comment: Order Date: 01/11/24Order Info: 0786-1 - CMPOrder Info: 6-3 - TSH1 Performed By: #### L 100.0100, L500.4050, L501.9520, L506.1000 ####[facility] [address] [place], [address] CA,Total 9.4 mg/dL Normal 8.5-10.1 [facility] Comment on above: Order Comment: Order Date: 01/11/24Order Info: 785- - CMPOrder Info: 3015-3 - TSH1 Performed By: #### L 100.0100, L500.4050, L501.9520, L506.1000 ####[facility] [address] [place], [address] Chloride [Moles/Vol] 107 mmol/L Normal 98-107 [facility] Comment on above: Order Comment: Order Date: 01/11/24Order Info: 785-03 - CMPOrder Info: 3015-3 - TSH1 Performed By: #### L 100.0100, L500.4050, L501.9520, L506.1000 ####[facility] [address] [place], [address] CO2 [Moles/Vol] 23.0 mmol/L Normal 21.0-32.0 [facility] Comment on above: Order Comment: Order Date: 01/11/24Order Info: 0786- - CMPOrder Info: [id number] - TSH1 Performed By: #### L 100.0100, L500.4050, L501.9520, L506.1000 ####[facility] [address] [place], [address] Creatinine [Mass/Vol] 0.61 mg/dL Normal 0.55-1.02 [facility] Comment on above: Order Comment: Order Date: 01/11/24Order Info: 785-1 - CMPOrder Info: 6-3 - TSH1 Result Comment: The validity of the calculated GFR GFRAA in patients over70 years has not been determined. Clinical correlation isessential. Performed By: #### L 100.0100, L500.4050, L501.9520, L506.1000 ####[facility] [address] [place], [address] EST GFR - AA 127 mL/min Normal >60 [facility] Comment on above: Order Comment: Order Date: 01/11/24Order Info: 0786-1 - CMPOrder Info: [id number] Result Comment: Afri can O[place]i GFR Calc Performed By: #### L 100.0100, L500.4050, L501.9520, L506.1000 ####[facility] [address] [place], [address] GAP 10 Normal 5-15 [facility] Comment on above: Order Comment: Order Date: 01/11/24Order Info: 0786-1 - CMPOrder Info: [id number] Performed By: #### L 100.0100, L500.4050, L501.9520, L506.1000 ####[facility] [address] [place], [address] GFR/1.73 sq M.predicted among non-blacks MDRD (S/P/Bld) [Vol rate/Area] 105 mL/min/{1.73_m2} Normal >60 [facility] Comment on above: Order Comment: Order Date: 01/11/24Order Info: 0786-1 - CMPOrder Info: 3016 - TSH Result Comment: Non- GFR Calc Performed By: #### L 100.0100, L500.4050, L501.9520, L506.1000 ####[facility] [address] [place], [address] Globulin (S) [Mass/Vol] 3.7 g/dL Normal 2.2-4.[address] [facility] Comment on above: Order Comment: Order Date: 01/11/24Order Info: 0786-1 - CMPOrder Info: 3 - TSH1 Performed By: #### L 100.0100, L500.4050, L501.9520, L506.1000 ####[facility] [address] [place], [address] Glucose [Mass/Vol] 174 mg/dL High 74-106 [facility] Comment on above: Order Comment: Order Date: 01/11/24Order Info: 86- - CMPOrder Info: 3 - TSH1 Result Comment: Fast ing Glucose result greater than or equal to 126 mg/dLsuggests DIABETES MELLITUS per A.D.A. criteria. Performed By: #### L 100.0100, L500.4050, L501.9520, L506.1000 ####[facility] [address] [place], [address] Potassium [Moles/Vol] 3.1 mmol/L Low 3.5-5.1 [facility] Comment on above: Order Comment: Order Date: 01/11/24Order Info: 0786- - CMPOrder Info: 3 - TSH1 Performed By: #### L 100.0100, L500.4050, L501.9520, L506.1000 ####[facility] [address] [place], [address] Sodium [Moles/Vol] 140 mmol/L Normal 136-145 [facility] Comment on above: Order Comment: Order Date: 01/11/24Order Info: 0786-1 - CMPOrder Info: 3 - TSH1 Performed By: #### L 100.0100, L500.4050, L501.9520, L506.1000 ####[facility] [address] [place], [address] T PROT 7.5 g/dL Normal 6.4-8.2 [facility] Comment on above: Order Comment: Order Date: 01/11/24Order Info: 0786-1 - CMPOrder Info: 3016-3 - TSH1 Performed By: #### L 100.0100, L500.4050, L501.9520, L506.1000 ####[facility] [address] [place], [address] Urea nitrogen [Mass/Vol] 8 mg/dL Normal 7-18 [facility] Comment on above: Order Comment: Order Date: 01/11/24Order Info: 0786-1 - CMPOrder Info: [id number] - TSH1 Performed By: #### L 100.0100, L500.4050, L501.9520, L506.1000 ####[facility] [address] [place], [place], [address] Emergency Department Summary on 02-09-2024 Emergency Department Summary Normal [facility] Eosinophil percentageOrdered By: Gustabo العلي on 02-09-2024 Eosinophils/100 WBC (Bld) 1.1 % 0-5 [facility] Eosinophil percentageOrdered By: Paul Greco on 02-09-2024 Eosinophils/100 WBC (Bld) 1.1 % 0-5 [facility] Erythrocyte distribution wid th ratioOrdered By: Gustabo العلي on 02-09-2024 Erythrocyte distribution width (RBC) [Ratio] 19.0 % High 11.6-14.6 [facility] Erythrocyte distribution wid th ratioOrdered By: Paul Greco on 02-09-2024 Erythrocyte distribution width (RBC) [Ratio] 19.4 % High 11.6-14.6 [facility] Erythrocyte distribution wid th standard deviationOrdered By: Gustabo العلي on 02-09-2024 Erythrocyte distribution width (RBC) [Entitic vol] 54.4 fL High 35.1-43.9 [facility] Erythrocyte distribution wid th standard deviationOrdered By: Paul Greco on 02-09-2024 Erythrocyte distribution width (RBC) [Entitic vol] 56.5 fL High 35.1-43.9 [facility] Estimated glomerular filtrat ion rate (GFR) AmericanOrdered By: Gustabo العلي on 02-09-2024 Estimated GFR (MDRD) Amer 125 mL/min >60 [facility] Comment on above: GFR Calc Estimated glomerular filtrat ion rate (GFR) AmericanOrdered By: Paul Greco on 02-09-2024 Estimated GFR (MDRD) Amer 127 mL/min >60 [facility] Comment on above: GFR Calc Estimation of creatinine debbie aranceOrdered By: Gustabo العلي on 02-09-2024 Estimated Creatinine Clearance Calc 91.87 ml/min [facility] Glomerular filtration rate ( GFR) estimationOrdered By: Gustabo العلي on 02-09-2024 Estimated GFR (MDRD) Non-Af Amer 104 mL/min >60 [facility] Comment on above: Non- GFR Calc Glomerular filtration rate ( GFR) estimationOrdered By: Paul Greco on 02-09-2024 Estimated GFR (MDRD) Non-Af Amer 105 mL/min >60 [facility] Comment on above: Non- GFR Calc Glucose measurementOrdered B y: Gustabo العلي on 02-09-2024 Glucose [Mass/Vol] 147 mg/dL [address] Comment on above: Fasting Glucose resu lt greater than or equal to 126 mg/dL suggests DIABETES MELLITUS per A.D.A. criteria. Glucose measurementOrdered B y: Paul Greco on 02-09-2024 Glucose [Mass/Vol] 174 mg/dL [address] Comment on above: Fasting Glucose resu lt greater than or equal to 126 mg/dL suggests DIABETES MELLITUS per A.D.A. criteria. Hematocrit Auto (Bld) [Volum e fraction]Ordered By: Gustabo العلي on 02-09-2024 Hematocrit (Bld) [Volume fraction] 37.5 % [address] [place] [address] Hematocrit Auto (Bld) [Volum e fraction]Ordered By: Paul Greco on 02-09-2024 Hematocrit (Bld) [Volume fraction] 39.9 % [address] [place] [address] Hemoglobin measurementOrdere d By: Gustabo العلي on 02-09-2024 Hemoglobin (Bld) [Mass/Vol] 11.7 g/dL Low 12.0-15.0 [facility] Hemoglobin measurementOrdere d By: Paul Greco on 02-09-2024 Hemoglobin (Bld) [Mass/Vol] 12.2 g/dL 12.0-15.0 [facility] Immature granulocytes/100 WB C Auto (Bld)Ordered By: Gustabo العلي on 02-09-2024 Immature granulocytes/100 WBC (Bld) 0.400 % 0.0-0.9 [facility] Comment on above: IG% - Immature Granu locytes (promyelocytes, myelocytes and metamyelocytes) > 1% indicates that a LEFT SHIFT is Present. Immature granulocytes/100 WB C Auto (Bld)Ordered By: Paul Greco on 02-09-2024 Immature granulocytes/100 WBC (Bld) 0.500 % 0.0-0.9 [facility] Comment on above: IG% - Immature Granu locytes (promyelocytes, myelocytes and metamyelocytes) > 1% indicates that a LEFT SHIFT is Present. International normalized rat io (INR) calculationOrdered By: Gustabo العلي on 02-09-2024 INR Coag (Bld) [Relative time] 1.1 {INR} [facility] L501.4020on 02-09-2024 TROPONIN-I HS 213 pg/mL Invalid Interpretation Code 3.0-54.0 [facility] Comment on above: Order Comment: Order Date: 01/11/24Order Info: 0786-1 - CMPOrder Info: [id number] - TSH1 Result Comment: Crit ical Result(s) Called at: 13:41:02 02/09/2024 by:Millicent Hansen. Results read back by same. Please Note: New Test Units and Gender Specific Reference Ranges. For more information see Policy Stat Procedure [place] High Sensitivity Troponin (TNIH) and attachments. Performed By: #### L 501.4020 ####[facility] [address] [place], [address] L501.5425on 02-09-2024 TROPONIN-I HS 214 pg/mL Invalid Interpretation Code 3.0-54.0 [facility] Comment on above: Order Comment: 1Y Result Comment: Crit ical Result(s) Called at: 17:46:00 02/09/2024 by: BERNARDINO. Results read back by Dr. العلي Please Note: New Test Units and Gender Specific Reference Ranges. For more information see Policy Stat Procedure [place] High Sensitivity Troponin (TNIH) and attachments. Performed By: #### L 100.0100, L300.3900, L500.2500, L501.5471 ####[facility] [address] [place], [address] Laboratory - Chemistry and C hemistry - challengeOrdered By: Paul Greco on 02-09-2024 AST [Catalytic activity/Vol] 12 U/L Low 15-37 [facility] Lymphocytes Auto (Unsp spec) [#/Vol]Ordered By: Gustabo العلي on 02-09-2024 Lymphocytes (Bld) [#/Vol] 1.50 10*3/uL 0.83-4.51 [facility] Lymphocytes Auto (Unsp spec) [#/Vol]Ordered By: Paul Greco on 02-09-2024 Lymphocytes (Bld) [#/Vol] 1.61 10*3/uL 0.83-4.51 [facility] Lymphocytes/100 WBC Auto (Un sp spec)Ordered By: Gustabo العلي on 02-09-2024 Lymphocytes/100 WBC (Bld) 18.8 % Low 19-41 [facility] Lymphocytes/100 WBC Auto (Un sp spec)Ordered By: Paul Greco on 02-09-2024 Lymphocytes/100 WBC (Bld) 18.4 % Low 19-41 [facility] MCV (mean corpuscular volume ) determinationOrdered By: Gustabo العلي on 02-09-2024 MCV (RBC) [Entitic vol] 81.2 fL 81-[address] [facility] MCV (mean corpuscular volume ) determinationOrdered By: Paul Greco on 02-09-2024 MCV (RBC) [Entitic vol] 82.1 fL 81-[address] [facility] Mean corpuscular hemoglobin (MCH) determinationOrdered By: Gustabo العلي on 02-09-2024 MCH (RBC) [Entitic mass] 25.3 pg Low 27.0-32.0 [facility] Mean corpuscular hemoglobin (MCH) determinationOrdered By: Paul Greco on 02-09-2024 MCH (RBC) [Entitic mass] 25.1 pg Low 27.0-32.0 [facility] Mean corpuscular hemoglobin concentration (MCHC) determinationOrdered By: Gustabo العلي on 02-09-2024 MCHC (RBC) [Mass/Vol] 31.2 g/dL Low 32-36 [facility] Mean corpuscular hemoglobin concentration (MCHC) determinationOrdered By: Paul Greco on 02-09-2024 MCHC (RBC) [Mass/Vol] 30.6 g/dL Low 32-36 [facility] Mean platelet volume determi nationOrdered By: Gustabo العلي on 02-09-2024 Platelet mean volume (Bld) [Entitic vol] 10.1 fL 6.2-12.0 [facility] Mean platelet volume determi nationOrdered By: Paul Greco on 02-09-2024 Platelet mean volume (Bld) [Entitic vol] 10.5 fL 6.2-12.0 [facility] Monocyte percentageOrdered B y: Gustabo العلي on 02-09-2024 Monocytes/100 WBC (Bld) 12.0 % High 0-[address] [facility] Monocyte percentageOrdered B y: Paul Greco on 02-09-2024 Monocytes/100 WBC (Bld) 10.5 % High 0-[address] [facility] Neutrophil percentageOrdered By: Gustabo العلي on 02-09-2024 Neutrophils/100 WBC (Bld) 67.2 % 47-70 [facility] Neutrophil percentageOrdered By: Paul Greco on 02-09-2024 Neutrophils/100 WBC (Bld) 69.0 % 47-70 [facility] Nucleated red blood cell per centageOrdered By: Gustabo العلي on 02-09-2024 Nucleated RBC/100 WBC (Bld) [Ratio] 0 % 0-5 [facility] Nucleated red blood cell per centageOrdered By: Paul Greco on 02-09-2024 Nucleated RBC/100 WBC (Bld) [Ratio] 0 % 0-5 [facility] Platelet countOrdered By: Velasquez العلي on 02-09-2024 Platelets (Bld) [#/Vol] 219 10*3/uL 150-450 [facility] Platelet countOrdered By: Julianna Greco on 02-09-2024 Platelets (Bld) [#/Vol] 246 10*3/uL 150-450 [facility] Potassium measurementOrdered By: Gustabo العلي on 02-09-2024 Potassium [Moles/Vol] 3.0 mmol/L Low 3.5-5.1 [facility] Potassium measurementOrdered By: Paul Greco on 02-09-2024 Potassium [Moles/Vol] 3.1 mmol/L Low 3.5-5.1 [facility] Prothrombin Time w/INRon INR Coag (PPP) [Relative time] 1.1 {INR} Normal [facility] Comment on above: Performed By: #### L 100.0100, L300.3900, L500.2500, L501.5425 ####[facility] [address] [place], [address] PT Coag (PPP) [Time] 13.9 s Normal 11.7-14.9 [facility] Comment on above: Performed By: #### L 100.0100, L300.3900, L500.2500, L501.5425 ####[facility] [address] [place], [place], [address] Prothrombin timeOrdered By: Gustabo العلي on 02-09-2024 PT Coag (PPP) [Time] 13.9 s 11.7-14.9 [facility] RBC Auto (Bld) [#/Vol]Ordere d By: Gustabo العلي on 02-09-2024 RBC (Bld) [#/Vol] 4.62 10*6/uL 4.2-5.4 [facility] RBC Auto (Bld) [#/Vol]Ordere d By: Paul Greco on 02-09-2024 RBC (Bld) [#/Vol] 4.86 10*6/uL 4.2-5.4 [facility] Serum anion gap measurementO rdered By: Gustabo العلي on 02-09-2024 Anion gap [Moles/Vol] 9 mmol/L 5-15 [facility] Serum anion gap measurementO rdered By: Paul Greco on 02-09-2024 Anion gap [Moles/Vol] 10 mmol/L 5-15 [facility] Serum globulin measurementOr dered By: Paul Greco on 02-09-2024 Globulin (S) [Mass/Vol] 3.7 g/dL 2.2-4.[address] [facility] Serum or plasma alanine mesa otransferase (ALT) measurementOrdered By: Paul Greco on 02-09-2024 ALT [Catalytic activity/Vol] 21 U/L 13-56 [facility] Serum or plasma albumin aminta urement (mass/volume)Ordered By: Paul Greco on 02-09-2024 Albumin [Mass/Vol] 3.8 g/dL 3.2-5.0 [facility] Serum or plasma alkaline arcelia sphatase measurementOrdered By: Paul Greco on 02-09-2024 ALP [Catalytic activity/Vol] 77 U/L 45-117 [facility] Serum or plasma calcium aminta urement (mass/volume)Ordered By: Gustabo العلي on 02-09-2024 Calcium [Mass/Vol] 9.1 mg/dL 8.5-10.1 [facility] Serum or plasma calcium aminta urement (mass/volume)Ordered By: Paul Greco on 02-09-2024 Calcium [Mass/Vol] 9.4 mg/dL 8.5-10.1 [facility] Serum or plasma creatinine m easurement (mass/volume)Ordered By: Gustabo العلي on 02-09-2024 Creatinine [Mass/Vol] 0.62 mg/dL 0.55-1.02 [facility] Comment on above: The validity of the calculated GFR & GFRAA in patients over 70 years has not been determined. Clinical correlation is essential. Serum or plasma creatinine m easurement (mass/volume)Ordered By: Paul Greco on 02-09-2024 Creatinine [Mass/Vol] 0.61 mg/dL 0.55-1.02 [facility] Comment on above: The validity of the calculated GFR & GFRAA in patients over 70 years has not been determined. Clinical correlation is essential. Serum or plasma urea nitroge n measurement (mass/volume)Ordered By: Gustabo العلي on 02-09-2024 Urea nitrogen [Mass/Vol] 10 mg/dL 09-20 [facility] Serum or plasma urea nitroge n measurement (mass/volume)Ordered By: Paul Greco on 02-09-2024 Urea nitrogen [Mass/Vol] 8 mg/dL 09-20 [facility] Sodium levelOrdered By: Gustabo العلي on 02-09-2024 Sodium [Moles/Vol] 141 mmol/L 136-145 [facility] Sodium levelOrdered By: Fredy Greco on 02-09-2024 Sodium [Moles/Vol] 140 mmol/L 136-145 [facility] TSH QnOrdered By: Paul Nazario e on 02-09-2024 Thyroid Stimulating Hormone (TSH) 1.820 uIU/mL 0.358-3.740 [facility] Thyroid Stim Hormone (TSH)on 02-09-2024 TSH 1.820 uIU/mL Normal 0.358-3.740 [facility] Comment on above: Order Comment: Order Date: 01/11/24Order Info: [id number] - CMPOrder Info: [id number] - TSH1 Performed By: #### L 100.0100, L500.4050, L501.9520, L506.1000 ####[facility] [address] [place], [place], [address] Total proteinOrdered By: Renate Greco on 02-09-2024 Protein [Mass/Vol] 7.5 g/dL 6.4-8.2 [facility] Tropinin I.cardiac panel Hig h sensitivity methodOrdered By: Gustabo العلي on 02-09-2024 Troponin I High Sensitivity 214 pg/mL High 3.0-54.0 [facility] Comment on above: Critical Result(s) C alled at: 17:46:00 02/09/2024 by: CAM STONE. Results read back by Dr. العلي Please Note: New Test Units and Gender Specific Reference Ranges. For more information see Policy Stat Procedure [place] High Sensitivity Troponin (TNIH) and attachments. Troponin IOrdered By: Paul Greco on 02-09-2024 Troponin I High Sensitivity 213 pg/mL High 3.0-54.0 [facility] Comment on above: Critical Result(s) C pippa at: 13:41:02 02/09/2024 by: Millicent Hansen. Results read back by same. Please Note: New Test Units and Gender Specific Reference Ranges. For more information see Policy Stat Procedure [place] High Sensitivity Troponin (TNIH) and attachments. Vitamin D,25 Hydroxyon 02-08 Vitamin D 25-OH 72.0 ng/mL Normal [facility] Comment on above: Order Comment: Order Date: 01/11/24Order Info: [id number] - [id number] Result Comment: [place]dal[place] min D 25(OH) Status Range Deficiency <20 ng/mL (50nmol/L) Insufficiency 20 - 30 ng/mL (50 - 75 nmol/L) Sufficiency 30 - 100 ng/mL (75 - 250 nmol/L) Toxicity >100 ng/mL (>250 nmol/L) Performed By: #### L 100.0100, L500.4050, L501.9520, L506.1000 ####[facility] [address] [place], [address] White blood cell (WBC) count Ordered By: Gustabo العلي on 02-09-2024 WBC (Bld) [#/Vol] 8.0 10*3/uL 4.4-11.0 [facility] White blood cell (WBC) count Ordered By: Paul Greco on 02-09-2024 WBC (Bld) [#/Vol] 8.8 10*3/uL 4.4-11.0 [facility] Gastroenterology Visit Repor waylon 02-06-2024 Gastroenterology Visit Report Normal [facility] Absolute neutrophil countOrd ered By: Xiang Rogers on 01-31-2024 Neutrophils (Bld) [#/Vol] 2.4 10*3/uL 2.0-7.7 [facility] Albumin to globulin ratioOrd ered By: Xiang Rogers on 01-31-2024 Albumin/Globulin [Mass ratio] 1.1 {ratio} 0.9-2.4 [facility] BNP (brain natriuretic pepti de measurement)Ordered By: Xiang Rogers on 01-31-2024 Natriuretic peptide B (Bld) [Mass/Vol] 55.2 pg/mL 0-100 [facility] BNP,B-Type NATRIURETIC PEPTI Kem 01-31-2024 Natriuretic peptide B (Bld) [Mass/Vol] 55.2 pg/mL Normal 0-100 [facility] Comment on above: Performed By: #### L 100.0100, L500.4050, L503.6620 ####[facility] [address] [place], [address] Basophil percentageOrdered B y: Xiang Rogers on 01-31-2024 Basophils/100 WBC (Bld) 1.0 % 0-[address] [facility] Bilirubin, totalOrdered By: Xiang Rogers on 01-31-2024 Bilirubin [Mass/Vol] 0.50 mg/dL 0.20-1.00 [facility] Comment on above: For patients on eltr ombopag therapy, use of Dimension [place] TBIL is not recommended. Blood urea nitrogen (BUN)/cr eatinine ratioOrdered By: Xiang Rogers on 01-31-2024 Urea nitrogen/Creatinine [Mass ratio] 12.9 mg/mg - [facility] CBC W/Diff, Automatedon 01-05 Absolute Lymph 1.73 X10 3/uL Normal 0.83-4.51 [facility] Comment on above: Performed By: #### L 100.0100, L500.4050, L503.6620 ####[facility] [address] [place], [address] Absolute Neut 2.4 X10 3/uL Normal 2.0-7.7 [facility] Comment on above: Performed By: #### L 100.0100, L500.4050, L503.6620 ####[facility] [address] [place], [address] Basophils/100 WBC (Bld) 1.0 % Normal 0-[address] [facility] Comment on above: Performed By: #### L 100.0100, L500.4050, [id number] ####[facility] [address] [place], [address] Eosinophils/100 WBC (Bld) 3.3 % Normal 0-5 [facility] Comment on above: Performed By: #### L 100.0100, L500.4050, [id number] ####[facility] [address] [place], [address] Erythrocyte distribution width (RBC) [Ratio] 20.0 % High 11.6-14.6 [facility] Comment on above: Performed By: #### L 100.0100, L500.4050, [id number] ####[facility] [address] [place], [address] Hematocrit (Bld) [Volume fraction] 38.6 % Normal 37-47 [facility] Comment on above: Performed By: #### L 100.0100, L500.4050, [id number] ####[facility] [address] [place], [address] Hemoglobin (Bld) [Mass/Vol] 11.7 g/dL Low 12.0-15.0 [facility] Comment on above: Performed By: #### L 100.0100, L500.4050, L503.6620 ####[facility] [address] [place], [address] IG% 0.200 Normal 0.0-0.9 [facility] Comment on above: Result Comment: IG% - Immature Granulocytes (promyelocytes, myelocytes andmetamyelocytes) > 1% indicates that a LEFT SHIFT is Present. Performed By: #### L 100.0100, L500.4050, L503.6620 ####[facility] [address] [place], [address] Lymphocytes/100 WBC (Bld) 35.6 % Normal 19-41 [facility] Comment on above: Performed By: #### L 100.0100, L500.4050, [id number] ####[facility] [address] [place], [address] MCH (RBC) [Entitic mass] 24.8 pg Low 27.0-32.0 [facility] Comment on above: Performed By: #### L 100.0100, L500.4050, [id number] ####[facility] [address] [place], [address] MCHC (RBC) [Mass/Vol] 30.3 g/dL Low 32-36 [facility] Comment on above: Performed By: #### L 100.0100, L500.4050, [id number] ####[facility] [address] [place], [address] MCV (RBC) [Entitic vol] 81.8 fL Normal 81-99 [facility] Comment on above: Performed By: #### L 100.0100, L500.4050, [id number] ####[facility] [address] [place], [address] Monocytes/100 WBC (Bld) 9.9 % Normal 0-10 [facility] Comment on above: Performed By: #### L 100.0100, L500.4050, [id number] ####[facility] [address] [place], [address] Neutrophils/100 WBC (Bld) 50.0 % Normal 47-70 [facility] Comment on above: Performed By: #### L 100.0100, L500.4050, [id number] ####[facility] [address] [place], [address] Nucleated RBC (Bld) [#/Vol] 0 10*3/uL Normal 0-5 [facility] Comment on above: Performed By: #### L 100.0100, L500.4050, [id number] ####[facility] [address] [place], [address] Platelet mean volume (Bld) [Entitic vol] 9.9 fL Normal 6.2-12.0 [facility] Comment on above: Performed By: #### L 100.0100, L500.4050, [id number] ####[facility] [address] [place], [address] Platelets (Bld) [#/Vol] 268 10*3/uL Normal 150-450 [facility] Comment on above: Performed By: #### L 100.0100, L500.4050, [id number] ####[facility] [address] [place], [address] RBC (Bld) [#/Vol] 4.72 10*6/uL Normal 4.2-5.4 [facility] Comment on above: Performed By: #### L 100.0100, L500.4050, [id number] ####[facility] [address] [place], [address] RDW SD 58.1 fl High 35.1-43.9 [facility] Comment on above: Performed By: #### L 100.0100, L500.4050, [id number] ####[facility] [address] [place], [address] WBC (Bld) [#/Vol] 4.9 10*3/uL Normal 4.4-11.0 [facility] Comment on above: Performed By: #### L 100.0100, L500.4050, [id number] ####[facility] [address] [place], [address] Carbon dioxide measurementOr dered By: Xiang Rogers on 01-31-2024 CO2 [Moles/Vol] 31.0 mmol/L 21.0-32.0 [facility] Chloride measurementOrdered By: Xiang Rogers on 01-31-2024 Chloride [Moles/Vol] 105 mmol/L 98-107 [facility] Comprehensive Metabolic Prof ilon 01-31-2024 Albumin [Mass/Vol] 3.6 g/dL Normal 3.2-5.0 [facility] Comment on above: Performed By: #### L 100.0100, L500.4050, [id number] ####[facility] [address] [place], [address] Albumin/Globulin [Mass ratio] 1.1 {ratio} Normal 0.9-2.4 [facility] Comment on above: Performed By: #### L 100.0100, L500.4050, [id number] ####[facility] [address] [place], [address] ALK P 107 U/L Normal 45-117 [facility] Comment on above: Performed By: #### L 100.0100, L500.4050, [id number] ####[facility] [address] [place], [address] ALT [Catalytic activity/Vol] 23 U/L Normal 13-56 [facility] Comment on above: Performed By: #### L 100.0100, L500.4050, [id number] ####[facility] [address] [place], [address] AST [Catalytic activity/Vol] 18 U/L Normal 15-37 [facility] Comment on above: Performed By: #### L 100.0100, L500.4050, [id number] ####[facility] [address] [place], [address] Bilirubin [Mass/Vol] 0.50 mg/dL Normal 0.20-1.00 [facility] Comment on above: Result Comment: For patients on eltrombopag therapy, use of Dimension [place] TBIL is not recommended. Performed By: #### L 100.0100, L500.4050, [id number] ####[facility] [address] [place], [address] BUN/CRE 12.9 RATIO Normal 10-20 [facility] Comment on above: Performed By: #### L 100.0100, L500.4050, [id number] ####[facility] [address] [place], [address] CA,Total 9.6 mg/dL Normal 8.5-10.1 [facility] Comment on above: Performed By: #### L 100.0100, L500.4050, [id number] ####[facility] [address] [place], [address] Chloride [Moles/Vol] 105 mmol/L Normal 98-107 [facility] Comment on above: Performed By: #### L 100.0100, L500.4050, [id number] ####[facility] [address] [place], [address] CO2 [Moles/Vol] 31.0 mmol/L Normal 21.0-32.0 [facility] Comment on above: Performed By: #### L 100.0100, L500.4050, [id number] ####[facility] [address] [place], [address] Creatinine [Mass/Vol] 0.70 mg/dL Normal 0.55-1.02 [facility] Comment on above: Result Comment: The validity of the calculated GFR GFRAA in patients over70 years has not been determined. Clinical correlation isessential. Performed By: #### L 100.0100, L500.4050, L503.6620 ####[facility] [address] [place], [address] EST GFR - AA 109 mL/min Normal >60 [facility] Comment on above: Result Comment: Afri can [place] GFR Calc Performed By: #### L 100.0100, L500.4050, [id number] ####[facility] [address] [place], [address] GAP 6 Normal 5-15 [facility] Comment on above: Performed By: #### L 100.0100, L500.4050, [id number] ####[facility] [address] [place], [address] GFR/1.73 sq M.predicted among non-blacks MDRD (S/P/Bld) [Vol rate/Area] 90 mL/min/{1.73_m2} Normal >60 [facility] Comment on above: Result Comment: Non- GFR Calc Performed By: #### L 100.0100, L500.4050, L503.6620 ####[facility] [address] [place], [address] Globulin (S) [Mass/Vol] 3.3 g/dL Normal 2.2-4.2 [facility] Comment on above: Performed By: #### L 100.0100, L500.4050, [id number] ####[facility] [address] [place], [address] Glucose [Mass/Vol] 216 mg/dL High 74-106 [facility] Comment on above: Result Comment: Gluc ose result greater than or equal to 200 mg/dLsuggests DIABETES MELLITUS per A.D.A. criteria. Performed By: #### L 100.0100, L500.4050, L503.6620 ####[facility] [address] [place], [address] Potassium [Moles/Vol] 3.1 mmol/L Low 3.5-5.1 [facility] Comment on above: Performed By: #### L 100.0100, L500.4050, [id number] ####[facility] [address] [place], [address] Sodium [Moles/Vol] 142 mmol/L Normal 136-145 [facility] Comment on above: Performed By: #### L 100.0100, L500.4050, [id number] ####[facility] [address] [place], [address] T PROT 6.9 g/dL Normal 6.4-8.2 [facility] Comment on above: Performed By: #### L 100.0100, L500.4050, L503.6620 ####[facility] [address] [place], [address] Urea nitrogen [Mass/Vol] 9 mg/dL Normal 7-18 [facility] Comment on above: Performed By: #### L 100.0100, L500.4050, [id number] ####[facility] [address] [place], [address] Eosinophil percentageOrdered By: Xiang Rogers on 01-31-2024 Eosinophils/100 WBC (Bld) 3.3 % 0-5 [facility] Erythrocyte distribution wid th ratioOrdered By: Xiang Rogers on 01-31-2024 Erythrocyte distribution width (RBC) [Ratio] 20.0 % High 11.6-14.6 [facility] Erythrocyte distribution wid th standard deviationOrdered By: Xiang Rogers on 01-31-2024 Erythrocyte distribution width (RBC) [Entitic vol] 58.1 fL High 35.1-43.9 [facility] Estimated glomerular filtrat ion rate (GFR) AmericanOrdered By: Xiang Rogers on 01-31-2024 Estimated GFR (MDRD) Amer 109 mL/min >60 [facility] Comment on above: GFR Calc Glomerular filtration rate ( GFR) estimationOrdered By: Xiang Rogers on 01-31-2024 Estimated GFR (MDRD) Non-Af Amer 90 mL/min >60 [facility] Comment on above: Non- GFR Calc Glucose measurementOrdered B y: Xiang Rogers on 01-31-2024 Glucose [Mass/Vol] 216 mg/dL High 74-106 [facility] Comment on above: Glucose result great er than or equal to 200 mg/dLsuggests DIABETES MELLITUS per A.D.A. criteria. Hematocrit Auto (Bld) [Volum e fraction]Ordered By: Xiang Rogers on 01-31-2024 Hematocrit (Bld) [Volume fraction] 38.6 % 37-47 [facility] Hemoglobin measurementOrdere d By: Xiang Rogers on 01-31-2024 Hemoglobin (Bld) [Mass/Vol] 11.7 g/dL Low 12.0-15.0 [facility] Immature granulocytes/100 WB C Auto (Bld)Ordered By: Xiang Rogers on 01-31-2024 Immature granulocytes/100 WBC (Bld) 0.200 % 0.0-0.9 [facility] Comment on above: IG% - Immature Granu locytes (promyelocytes, myelocytes and metamyelocytes) > 1% indicates that a LEFT SHIFT is Present. Laboratory - Chemistry and C hemistry - challengeOrdered By: Xiang Rogers on 01-31-2024 AST [Catalytic activity/Vol] 18 U/L 15-37 [facility] Lymphocytes Auto (Unsp spec) [#/Vol]Ordered By: Xiang Rogers on 01-31-2024 Lymphocytes (Bld) [#/Vol] 1.73 10*3/uL 0.83-4.51 [facility] Lymphocytes/100 WBC Auto (Un sp spec)Ordered By: Xiang Rogers on 01-31-2024 Lymphocytes/100 WBC (Bld) 35.6 % 19-41 [facility] MCV (mean corpuscular volume ) determinationOrdered By: Xiang Rogers on 01-31-2024 MCV (RBC) [Entitic vol] 81.8 fL 81-[address] [facility] Mean corpuscular hemoglobin (MCH) determinationOrdered By: Xiang Rogers on 01-31-2024 MCH (RBC) [Entitic mass] 24.8 pg Low 27.0-32.0 [facility] Mean corpuscular hemoglobin concentration (MCHC) determinationOrdered By: Xiang Rogers on 01-31-2024 MCHC (RBC) [Mass/Vol] 30.3 g/dL Low 32-36 [facility] Mean platelet volume determi nationOrdered By: Xiang Rogers on 01-31-2024 Platelet mean volume (Bld) [Entitic vol] 9.9 fL 6.2-12.0 [facility] Monocyte percentageOrdered B y: Xiang Rogers on 01-31-2024 Monocytes/100 WBC (Bld) 9.9 % 0-[address] [facility] Neutrophil percentageOrdered By: Xiang Rogers on 01-31-2024 Neutrophils/100 WBC (Bld) 50.0 % 47-70 [facility] Nucleated red blood cell per centageOrdered By: Xiang Rogers on 01-31-2024 Nucleated RBC/100 WBC (Bld) [Ratio] 0 % 0-5 [facility] Platelet countOrdered By: Nicole Rogers on 01-31-2024 Platelets (Bld) [#/Vol] 268 10*3/uL 150-450 [facility] Potassium measurementOrdered By: Xiang Rogers on 01-31-2024 Potassium [Moles/Vol] 3.1 mmol/L Low 3.5-5.1 [facility] RBC Auto (Bld) [#/Vol]Ordere d By: Xiang Rogers on 01-31-2024 RBC (Bld) [#/Vol] 4.72 10*6/uL 4.2-5.4 [facility] Serum anion gap measurementO rdered By: Xiang Rogers on 01-31-2024 Anion gap [Moles/Vol] 6 mmol/L 5-15 [facility] Serum globulin measurementOr dered By: Xiang Rogers on 01-31-2024 Globulin (S) [Mass/Vol] 3.3 g/dL 2.2-4.[address] [facility] Serum or plasma alanine mesa otransferase (ALT) measurementOrdered By: Xiang Rogers on 01-31-2024 ALT [Catalytic activity/Vol] 23 U/L 13-56 [facility] Serum or plasma albumin aminta urement (mass/volume)Ordered By: Xiang Rogers on 01-31-2024 Albumin [Mass/Vol] 3.6 g/dL 3.2-5.0 [facility] Serum or plasma alkaline arcelia sphatase measurementOrdered By: Xiang Rogers on 01-31-2024 ALP [Catalytic activity/Vol] 107 U/L 45-117 [facility] Serum or plasma calcium aminta urement (mass/volume)Ordered By: Xiang Rogers on 01-31-2024 Calcium [Mass/Vol] 9.6 mg/dL 8.5-10.1 [facility] Serum or plasma creatinine m easurement (mass/volume)Ordered By: Xiang Rogers on 01-31-2024 Creatinine [Mass/Vol] 0.70 mg/dL 0.55-1.02 [facility] Comment on above: The validity of the calculated GFR & GFRAA in patients over 70 years has not been determined. Clinical correlation is essential. Serum or plasma urea nitroge n measurement (mass/volume)Ordered By: Xiang Rogers on 01-31-2024 Urea nitrogen [Mass/Vol] 9 mg/dL 7-18 [facility] Sodium levelOrdered By: Xiang Rogers on 01-31-2024 Sodium [Moles/Vol] 142 mmol/L 136-145 [facility] Total proteinOrdered By: Florencio Rogers on 01-31-2024 Protein [Mass/Vol] 6.9 g/dL 6.4-8.2 [facility] White blood cell (WBC) count Ordered By: Xiang Rogers on 01-31-2024 WBC (Bld) [#/Vol] 4.9 10*3/uL 4.4-11.0 [facility] CR - History AND Physicalon 01-24-2024 CR - History & Physical Normal [facility] JAYLIN CARROLL ([id number]) 1960 F Date Time Provider Department 01/20/24 ROBERT FARIAS During your visit today, we recorded the following information about you: Robert Farias MD 01/20/2024 2:58 PM Signed Please let her know labs show anemia Get test done ordered Also stool test MD Sylwia Reis Gail, ELIDIA 01/22/2024 9:27 AM Signed Pt was discharged on Monday after a two day stay at [facility] diagnosed with pneumonia and NV (NSTEMI). Discharge summary in [facility] (care everywhere). Pt had a heart cath done without intervention but was started on plavix. ABX tx has been completed and pt also was diagnosed with anemia and started on oral iron. Pt is to follow up with GI and that appointment will be made with a provider in the [place] area. Pt reports that the stool for OB was negative in the hospital. Pt would prefer to follow up with GI and not do the additional blood work as ordered by as she has many post admission follow ups scheduled. Brynn Fofana LPN Allergies As of Date: 01/20/2024 Noted Allergy Reaction DEMEROL (MEPERIDINE) 06/19/2020 14 - Other: See Comments Comments: Lowered blood pressure extremely low SULFA (SULFONAMIDE ANTIBIOTICS) 06/19/2020 8 - GI Upset Comments: Stomach pain severe Date Reviewed: 01/18/2024 Reviewed by: Goldie Bullock RN - Fully Assessed Primary Visit Diagnosis:Anemia, chronic disease [D63.8] Order(s):IRON AND TIBC [SQIRON] Order #: [id number] FUTURE VITAMIN B12 [SQB12] Order #: [id number] FUTURE FOLATE, SERUM [SQSERFOL] Order #: [id number] FUTURE FERRITIN [SQFERR] Order #: [id number] FUTURE IMMUNOCHEMICAL FECAL OCCULT BLOOD TEST [SQIFOBT] Order #: [id number]. #:[id number] Prescriptions as of 01/22/2024 - hydrOXYchloroQUINE (PLAQUENIL) 200 mg tablet take 1 tablet by mouth once daily - methotrexate 2.5 mg tablet Take 8 tablets by mouth one time a week. - tiZANidine (ZANAFLEX) 2 mg tablet take 1 to 3 tablets by mouth at bedtime if needed - naproxen (NAPROSYN) 500 mg tablet Take 1 tablet by mouth two times a day with meals. - folic acid 1 mg tablet Take 1 tablet by mouth once daily. - metFORMIN ER (GLUCOPHAGE XR) 500 mg 24 hr tablet Take 1,000 mg by mouth daily with breakfast. - mometasone-formoterol (DULERA) 100-5 mcg/actuation inhaler Inhale 2 Puffs as instructed two times a day. - lisinopril (ZESTRIL) 20 mg tablet Take 20 mg by mouth once daily. - levothyroxine (SYNTHROID) 25 mcg tablet Take 25 mcg by mouth once daily. - omeprazole (PRILOSEC) 20 mg capsule TAKE 1 CAPSULE BY MOUTH EVERY DAY BEFORE A MEAL - albuterol HFA (PROVENTIL HFA, VENTOLIN HFA) 90 mcg/actuation inhaler INHALE 1 PUFF BY MOUTH EVERY 6 HOURS NEEDED - montelukast (SINGULAIR) 10 mg tablet Take 10 mg by mouth once daily. Facility-Administered Medications as of 01/22/2024 - lidocaine-prilocaine 2.5-2.5 % (EMLA) Problem List As Of Date 01/20/2024 Noted Resolved Rheumatoid arthritis involving both hands with *06/19/2020 Chronic bilateral low back pain without sciatic*06/19/2020 Encounter Status:Closed by BRYNN FOFANA on 01/22/24 Normal [facility] CBC W Auto Differential pane l (Bld)on 01-18-2024 Basophils (Bld) [#/Vol] 0.05 10*3/uL Normal <0.11 [facility] Comment on above: Order Comment: Speci men Type: BLOOD SPECIMEN Ordering Facility: Address: [address] [place] [address] Performed By: #### 5 7021-8 #### [facility] CLIA [id number] [address] [place] Basophils/100 WBC (Bld) 0.6 % Normal A [facility] Comment on above: Order Comment: Speci men Type: BLOOD SPECIMEN Ordering Facility: Address: [address] [place] [address] Performed By: #### 5 7021-8 #### [facility] CLIA [id number] [address] [place] Differential cell count method Nom (Bld) Auto Normal [facility] Comment on above: Order Comment: Speci men Type: BLOOD SPECIMEN Ordering Facility: Address: [address] [place] [address] Performed By: #### 5 7021-8 #### [facility] CLIA [id number] [address] Eosinophils (Bld) [#/Vol] 0.20 10*3/uL Normal <0.46 [facility] Comment on above: Order Comment: Speci men Type: BLOOD SPECIMEN Ordering Facility: Address: [address] [place] [address] Performed By: #### 5 7021-8 #### [facility] CLIA [id number] [address] Eosinophils/100 WBC (Bld) 2.5 % Normal [facility] Comment on above: Order Comment: Speci men Type: BLOOD SPECIMEN Ordering Facility: Address: [address] [place] [address] Performed By: #### 5 7021-8 #### [facility] CLIA [id number] [address] [facility] Erythrocyte distribution width (RBC) [Ratio] 19.1 % High 11.5-15.0 [facility] Comment on above: Order Comment: Speci men Type: BLOOD SPECIMEN Ordering Facility: Address: [address] [place] [address] Performed By: #### 5 7021-8 #### [facility] CLIA [id number] [address] [place] Hematocrit (Bld) [Volume fraction] 30.9 % Low 36.0-46.0 [facility] Comment on above: Order Comment: Speci men Type: BLOOD SPECIMEN Ordering Facility: Address: [facility] [place] [address] Performed By: #### 5 7021-8 #### [facility] CLIA [id number] [address] [place] Hemoglobin (Bld) [Mass/Vol] 9.4 g/dL Low 11.5-15.5 [facility] Comment on above: Order Comment: Speci men Type: BLOOD SPECIMEN Ordering Facility: Address: [address] [place] [address] Performed By: #### 5 7021-8 #### [facility] CLIA [id number] [address] Immature granulocytes (Bld) [#/Vol] 0.33 10*3/uL High <0.10 [facility] Comment on above: Order Comment: Speci men Type: BLOOD SPECIMEN Ordering Facility: Address: [address] [place] [address] Performed By: #### 5 7021-8 #### [facility] CLIA [id number] [address] Immature granulocytes/100 WBC (Bld) 4.1 % Normal [facility] Comment on above: Order Comment: Speci men Type: BLOOD SPECIMEN Ordering Facility: Address: [address] [place] [address] Performed By: #### 5 7021-8 #### [facility] CLIA [id number] [address] Lymphocytes (Bld) [#/Vol] 1.27 10*3/uL Normal 1.00-4.00 [facility] Comment on above: Order Comment: Speci men Type: BLOOD SPECIMEN Ordering Facility: Address: [facility] [place] [address] Performed By: #### 5 7021-8 #### [facility] CLIA [id number] [address] Lymphocytes/100 WBC (Bld) 15.8 % Normal [facility] Comment on above: Order Comment: Speci men Type: BLOOD SPECIMEN Ordering Facility: Address: [address] [place] [address] Performed By: #### 5 7021-8 #### [facility] CLIA [id number] [address] [place] MCH (RBC) [Entitic mass] 24.6 pg Low 26.0-34.0 [facility] Comment on above: Order Comment: Speci men Type: BLOOD SPECIMEN Ordering Facility: Address: [address] [place] [address] Performed By: #### 5 7021-8 #### [facility] CLIA [id number] [address] MCHC (RBC) [Mass/Vol] 30.4 g/dL Low 30.5-36.0 [facility] Comment on above: Order Comment: Speci men Type: BLOOD SPECIMEN Ordering Facility: Address: [address] [place] [address] Performed By: #### 5 7021-8 #### [facility] CLIA [id number] [address] MCV (RBC) [Entitic vol] 80.9 fL Normal 80.0-100.0 [facility] Comment on above: Order Comment: Speci men Type: BLOOD SPECIMEN Ordering Facility: Address: [address] [place] [address] Performed By: #### 5 7021-8 #### [facility] CLIA [id number] [address] Monocytes (Bld) [#/Vol] 0.24 10*3/uL Normal <0.87 [facility] Comment on above: Order Comment: Speci men Type: BLOOD SPECIMEN Ordering Facility: Address: [address] [place] [address] Performed By: #### 5 7021-8 #### [facility] CLIA [id number] [address] Monocytes/100 WBC (Bld) 3.0 % Normal A [facility] Comment on above: Order Comment: Speci men Type: BLOOD SPECIMEN Ordering Facility: Address: [address] [place] [address] Performed By: #### 5 7021-8 #### [facility] CLIA [id number] 1 [place] [address] [place] Neutrophils (Bld) [#/Vol] 5.94 10*3/uL Normal 1.45-7.50 [facility] Comment on above: Order Comment: Speci men Type: BLOOD SPECIMEN Ordering Facility: Address: [address] [place] [address] Performed By: #### 5 7021-8 #### [facility] CLIA [id number] [address] [place] Neutrophils/100 WBC (Bld) 74.0 % Normal [facility] Comment on above: Order Comment: Speci men Type: BLOOD SPECIMEN Ordering Facility: Address: [address] [place] [address] Performed By: #### 5 7021-8 #### [facility] CLIA [id number] [address] [place] Nucleated RBC (Bld) [#/Vol] 10*3/uL Normal <0.01 [facility] Comment on above: Order Comment: Speci men Type: BLOOD SPECIMEN Ordering Facility: Address: [address] [place] [address] Performed By: #### 5 7021-8 #### [facility] CLIA [id number] [address] [place] Nucleated RBC/100 WBC (Bld) [Ratio] 0.0 /100 WBC Normal [facility] Comment on above: Order Comment: Speci men Type: BLOOD SPECIMEN Ordering Facility: Address: [address] [place] [address] Performed By: #### 5 7021-8 #### [facility] CLIA [id number] [address] [place] Platelet mean volume (Bld) [Entitic vol] 9.5 fL Normal 9.0-12.7 [facility] Comment on above: Order Comment: Speci men Type: BLOOD SPECIMEN Ordering Facility: Address: [address] [place], [place] [id number] Performed By: #### 5 7021-8 #### [facility] CLIA [id number] [address] Platelets (Bld) [#/Vol] 352 10*3/uL Normal 150-400 [facility] Comment on above: Order Comment: Speci men Type: BLOOD SPECIMEN Ordering Facility: Address: [address] [place] [address] Performed By: #### 5 7021-8 #### [facility] CLIA [id number] [address] RBC (Bld) [#/Vol] 3.82 10*6/uL Low 3.90-5.20 [facility] Comment on above: Order Comment: Speci men Type: BLOOD SPECIMEN Ordering Facility: Address: [address] [place] [address] Performed By: #### 5 7021-8 #### [facility] CLIA [id number] [address] WBC (Bld) [#/Vol] 8.03 10*3/uL Normal 3.70-11.00 [facility] Comment on above: Order Comment: Speci men Type: BLOOD SPECIMEN Ordering Facility: Address: [address] [place] [address] Performed By: #### 5 7021-8 #### [facility] CLIA [id number] [address] Comprehensive metabolic 2000 panelon 01-18-2024 Albumin [Mass/Vol] 3.6 g/dL Low 3.9-4.9 [facility] Comment on above: Order Comment: Speci men Type: BLOOD SPECIMEN Ordering Facility: Address: [address] [place] [address] Performed By: #### 2 4323-8 #### [facility] CLIA [id number] [address] ALP [Catalytic activity/Vol] 101 U/L Normal 34-123 [facility] Comment on above: Order Comment: Speci men Type: BLOOD SPECIMEN Ordering Facility: Address: [address] [place] [address] Performed By: #### 2 4323-8 #### [facility] CLIA [id number] [address] ALT With P-5'-P [Catalytic activity/Vol] 27 U/L Normal 7-38 [facility] Comment on above: Order Comment: Speci men Type: BLOOD SPECIMEN Ordering Facility: Address: [address] [place] [address] Performed By: #### 2 4323-8 #### [facility] CLIA [id number] [address] Anion gap [Moles/Vol] 14 mmol/L Normal 8-15 [facility] Comment on above: Order Comment: Speci men Type: BLOOD SPECIMEN Ordering Facility: Address: [address] [place] [address] Performed By: #### 2 4323-8 #### [facility] CLIA [id number] [address] AST With P-5'-P [Catalytic activity/Vol] 23 U/L Normal 13-35 [facility] Comment on above: Order Comment: Speci men Type: BLOOD SPECIMEN Ordering Facility: Address: [address] [place] [address] Performed By: #### 2 4323-8 #### [facility] CLIA [id number] [address] Bilirubin [Mass/Vol] 0.3 mg/dL Normal 0.2-1.3 [facility] Comment on above: Order Comment: Speci men Type: BLOOD SPECIMEN Ordering Facility: Address: [address] [place] [address] Performed By: #### 2 4323-8 #### [facility] CLIA [id number] [address] [facility] Calcium [Mass/Vol] 9.2 mg/dL Normal 8.5-10.2 [facility] Comment on above: Order Comment: Speci men Type: BLOOD SPECIMEN Ordering Facility: Address: [address] [place] [address] Performed By: #### 2 4323-8 #### [facility] CLIA [id number] [address] [place] Chloride [Moles/Vol] 104 mmol/L Normal 98-107 [facility] Comment on above: Order Comment: Speci men Type: BLOOD SPECIMEN Ordering Facility: Address: [address] [place] [address] Performed By: #### 2 4323-8 #### [facility] CLIA [id number] [address] [facility] CO2 [Moles/Vol] 23 mmol/L Normal 22-30 [facility] Comment on above: Order Comment: Speci men Type: BLOOD SPECIMEN Ordering Facility: Address: [address] [place] [address] Performed By: #### 2 4323-8 #### [facility] CLIA [id number] [address] [place] Creatinine [Mass/Vol] 0.46 mg/dL Low 0.58-0.96 [facility] Comment on above: Order Comment: Speci men Type: BLOOD SPECIMEN Ordering Facility: Address: [address] [place] [address] Performed By: #### 2 4323-8 #### [facility] CLIA [id number] [address] Creatinine and Glomerular filtration rate.predicted panel (S/P/Bld) 108 mL/min/1.73m??? Normal >=60 [facility] Comment on above: Order Comment: Speci men Type: BLOOD SPECIMEN Ordering Facility: Address: [address] [place] [address] Result Comment: Glynn mated Glomerular Filtration Rate (eGFR) is calculated using the 2020 CKD-EPI creatinine equation. This equation utilizes serum creatinine, sex, and age as parameters. The creatinine assay has traceable calibration to isotope dilution-mass spectrometry. Refer to KDIGO guidelines for clinical interpretation. In patients with unstable renal function, e.g. those with acute kidney injury, the eGFR may not accurately reflect actual GFR. Performed By: #### 2 4323-8 #### [facility] CLIA [id number] 1 [place] [address] [place] Glucose [Mass/Vol] 192 mg/dL High 74-99 [facility] Comment on above: Order Comment: Matt patricio Type: BLOOD SPECIMEN Ordering Facility: Address: [address] [place] [address] Result Comment: The [place] [employer] (ADA) provides guidance for cutoff values for fasting glucose and random glucose. The ADA defines fasting as no caloric intake for at least 8 hours. Fasting plasma glucose results between 100 to 125 mg/dL indicate increased risk for diabetes (prediabetes). Fasting plasma glucose results greater than or equal to 126 mg/dL meet the criteria for diagnosis of diabetes. In the absence of unequivocal hyperglycemia, results should be confirmed by repeat testing. In a patient with classic symptoms of hyperglycemia or hyperglycemic crisis, random plasma glucose results greater than or equal to 200 mg/dL meet the criteria for diagnosis of diabetes. Reference: Standards of Medical Care in Diabetes 2016, [place] [employer]. Diabetes Care. 2016.39(Suppl 1). Performed By: #### 2 4323-8 #### [facility] CLIA [id number] [address] [place] Potassium [Moles/Vol] 3.6 mmol/L Low 3.7-5.1 [facility] Comment on above: Order Comment: Matt patricio Type: BLOOD SPECIMEN Ordering Facility: Address: [address] [place] [id number] Performed By: #### 2 4323-8 #### [facility] CLIA [id number] 1 [place] [address] [place] Protein [Mass/Vol] 6.3 g/dL Normal 6.3-8.0 [facility] Comment on above: Order Comment: Speci men Type: BLOOD SPECIMEN Ordering Facility: Address: [address] [place] [address] Performed By: #### 2 4323-8 #### [facility] CLIA [id number] [address] [place] Sodium [Moles/Vol] 141 mmol/L Normal 136-144 [facility] Comment on above: Order Comment: Speci men Type: BLOOD SPECIMEN Ordering Facility: Address: [address] [place] [address] Performed By: #### 2 4323-8 #### [facility] CLIA [id number] [address] [place] Urea nitrogen [Mass/Vol] 10 mg/dL Normal 7-21 [facility] Comment on above: Order Comment: Speci men Type: BLOOD SPECIMEN Ordering Facility: Address: [address] [place] [address] Performed By: #### 2 4323-8 #### [facility] CLIA [id number] [address] [place] CBC W/Diff, Automatedon 11- Absolute Neut Normal 2.0-7.7 [facility] Comment on above: Result Comment: Canc elled via OM: Order cancelled - Patient discharged Performed By: #### L 500.4050, L100.0100 ####[facility] [address] [place], [address] HCT Normal 37-47 [facility] Comment on above: Result Comment: Canc elled via OM: Order cancelled - Patient discharged Performed By: #### L 500.4050, L100.0100 ####[facility] [address] [place], [address] HGB Normal 12.0-15.0 [facility] Comment on above: Result Comment: Canc elled via OM: Order cancelled - Patient discharged Performed By: #### L 500.4050, L100.0100 ####[facility] [address] [place], [address] MCH Normal 27.0-32.0 [facility] Comment on above: Result Comment: Canc elled via OM: Order cancelled - Patient discharged Performed By: #### L 500.4050, L100.0100 ####[facility] [address] [place], [address] MCHC Normal 32-36 [facility] Comment on above: Result Comment: Canc elled via OM: Order cancelled - Patient discharged Performed By: #### L 500.4050, L100.0100 ####[facility] [address] [place], [address] MCV Normal 81-99 [facility] Comment on above: Result Comment: Canc elled via OM: Order cancelled - Patient discharged Performed By: #### L 500.4050, L100.0100 ####[facility] [address] [place], [address] NEUT% Normal 47-70 [facility] Comment on above: Result Comment: Canc elled via OM: Order cancelled - Patient discharged Performed By: #### L 500.4050, L100.0100 ####[facility] [address] [place], [address] PLT Normal 150-450 [facility] Comment on above: Result Comment: Canc elled via OM: Order cancelled - Patient discharged Performed By: #### L 500.4050, L100.0100 ####[facility] [address] [place], [address] RBC Normal 4.2-5.4 [facility] Comment on above: Result Comment: Canc elled via OM: Order cancelled - Patient discharged Performed By: #### L 500.4050, L100.0100 ####[facility] [address] [place], [address] RDW CV Normal 11.6-14.6 [facility] Comment on above: Result Comment: Canc elled via OM: Order cancelled - Patient discharged Performed By: #### L 500.4050, L100.0100 ####[facility] [address] [place], [address] RDW SD Normal 35.1-43.9 [facility] Comment on above: Result Comment: Canc elled via OM: Order cancelled - Patient discharged Performed By: #### L 500.4050, L100.0100 ####[facility] [address] [place], [address] WBC Normal 4.4-11.0 [facility] [facility] Comment on above: Result Comment: Canc elled via OM: Order cancelled - Patient discharged Performed By: #### L 500.4050, L100.0100 ####[facility] [address] [place], [address] Comprehensive Metabolic Prof ilon 01-16-2024 ALB Normal 3.2-5.0 [facility] Comment on above: Result Comment: Canc elled via OM: Order cancelled - Patient discharged Performed By: #### L 500.4050, L100.0100 ####[facility] [address] [place], [address] ALK P Normal 45-117 [facility] Comment on above: Result Comment: Canc elled via OM: Order cancelled - Patient discharged Performed By: #### L 500.4050, L100.0100 ####[facility] [address] [place], [address] ALT Normal 13-56 [facility] Comment on above: Result Comment: Canc elled via OM: Order cancelled - Patient discharged Performed By: #### L 500.4050, L100.0100 ####[facility] [address] [place], [address] AST Normal 15-37 [facility] Comment on above: Result Comment: Canc elled via OM: Order cancelled - Patient discharged Performed By: #### L 500.4050, L100.0100 ####[facility] [address] [place], [address] BUN Normal 7-18 [facility] Comment on above: Result Comment: Canc elled via OM: Order cancelled - Patient discharged Performed By: #### L 500.4050, L100.0100 ####[facility] [address] [place], [address] BUN/CRE Normal 10-20 [facility] Comment on above: Result Comment: Canc elled via OM: Order cancelled - Patient discharged Performed By: #### L 500.4050, L100.0100 ####[facility] [address] [place], [address] CA,Total Normal 8.5-10.1 [facility] Comment on above: Result Comment: Canc elled via OM: Order cancelled - Patient discharged Performed By: #### L 500.4050, L100.0100 ####[facility] [address] [place], [address] CL Normal 98-107 [facility] Comment on above: Result Comment: Canc elled via OM: Order cancelled - Patient discharged Performed By: #### L 500.4050, L100.0100 ####[facility] [address] [place], [address] CO2 Normal 21.0-32.0 [facility] Comment on above: Result Comment: Canc elled via OM: Order cancelled - Patient discharged Performed By: #### L 500.4050, L100.0100 ####[facility] [address] [place], [address] CREAT,SERUM Normal 0.55-1.02 [facility] Comment on above: Result Comment: Canc elled via OM: Order cancelled - Patient discharged Performed By: #### L 500.4050, L100.0100 ####[facility] [address] [place], [address] EST GFR Normal >60 [facility] Comment on above: Result Comment: Canc elled via OM: Order cancelled - Patient discharged Performed By: #### L 500.4050, L100.0100 ####[facility] [address] [place], [address] EST GFR - AA Normal >60 [facility] Comment on above: Result Comment: Canc elled via OM: Order cancelled - Patient discharged Performed By: #### L 500.4050, L100.0100 ####[facility] [address] [place], [address] GAP Normal 5-15 [facility] Comment on above: Result Comment: Canc elled via OM: Order cancelled - Patient discharged Performed By: #### L 500.4050, L100.0100 ####[facility] [address] [place], [address] GLU Normal 74-106 [facility] Comment on above: Result Comment: Canc elled via OM: Order cancelled - Patient discharged Performed By: #### L 500.4050, L100.0100 ####[facility] [address] [place], [address] Potassium Normal 3.5-5.1 [facility] Comment on above: Result Comment: Canc elled via OM: Order cancelled - Patient discharged Performed By: #### L 500.4050, L100.0100 ####[facility] [address] [place], [address] T BILI Normal 0.20-1.00 [facility] Comment on above: Result Comment: Canc elled via OM: Order cancelled - Patient discharged Performed By: #### L 500.4050, L100.0100 ####[facility] [address] [place], [address] T PROT Normal 6.4-8.2 [facility] Comment on above: Result Comment: Canc elled via OM: Order cancelled - Patient discharged Performed By: #### L 500.4050, L100.0100 ####[facility] [address] [place], [address] Comprehensive Metabolic Profil Normal 136-145 [facility] Comment on above: Result Comment: Canc elled via OM: Order cancelled - Patient discharged Performed By: #### L 500.4050, L100.0100 ####[facility] [address] [place], [address] CBC W/Diff, Automatedon 11- Absolute Neut Normal 2.0-7.7 [facility] Comment on above: Result Comment: Canc elled via OM: Order cancelled - Patient discharged Performed By: #### L 500.4050, L100.0100 ####[facility] [address] [place], [address] HCT Normal 37-47 [facility] Comment on above: Result Comment: Canc elled via OM: Order cancelled - Patient discharged Performed By: #### L 500.4050, L100.0100 ####[facility] [address] [place], [address] HGB Normal 12.0-15.0 [facility] Comment on above: Result Comment: Canc elled via OM: Order cancelled - Patient discharged Performed By: #### L 500.4050, L100.0100 ####[facility] [address] [place], [address] MCH Normal 27.0-32.0 [facility] Comment on above: Result Comment: Canc elled via OM: Order cancelled - Patient discharged Performed By: #### L 500.4050, L100.0100 ####[facility] [address] [place], [address] MCHC Normal 32-36 [facility] Comment on above: Result Comment: Canc elled via OM: Order cancelled - Patient discharged Performed By: #### L 500.4050, L100.0100 ####[facility] [address] [place], [address] MCV Normal 81-99 [facility] Comment on above: Result Comment: Canc elled via OM: Order cancelled - Patient discharged Performed By: #### L 500.4050, L100.0100 ####[facility] [address] [place], [address] NEUT% Normal 47-70 [facility] Comment on above: Result Comment: Canc elled via OM: Order cancelled - Patient discharged Performed By: #### L 500.4050, L100.0100 ####[facility] [address] [place], [address] PLT Normal 150-450 [facility] Comment on above: Result Comment: Canc elled via OM: Order cancelled - Patient discharged Performed By: #### L 500.4050, L100.0100 ####[facility] [address] [place], [address] RBC Normal 4.2-5.4 [facility] Comment on above: Result Comment: Canc elled via OM: Order cancelled - Patient discharged Performed By: #### L 500.4050, L100.0100 ####[facility] [address] [place], [address] RDW CV Normal 11.6-14.6 [facility] Comment on above: Result Comment: Canc elled via OM: Order cancelled - Patient discharged Performed By: #### L 500.4050, L100.0100 ####[facility] [address] [place], [address] RDW SD Normal 35.1-43.9 [facility] Comment on above: Result Comment: Canc elled via OM: Order cancelled - Patient discharged Performed By: #### L 500.4050, L100.0100 ####[facility] [address] [place], [address] WBC Normal 4.4-11.0 [facility] Comment on above: Result Comment: Canc elled via OM: Order cancelled - Patient discharged Performed By: #### L 500.4050, L100.0100 ####[facility] [address] [place], [address] Comprehensive Metabolic Prof ilon 01-15-2024 ALB Normal 3.2-5.0 [facility] Comment on above: Result Comment: Canc elled via OM: Order cancelled - Patient discharged Performed By: #### L 500.4050, L100.0100 ####[facility] [address] [place], [address] ALK P Normal 45-117 [facility] Comment on above: Result Comment: Canc elled via OM: Order cancelled - Patient discharged Performed By: #### L 500.4050, L100.0100 ####[facility] [address] [place], [address] ALT Normal 13-56 [facility] Comment on above: Result Comment: Canc elled via OM: Order cancelled - Patient discharged Performed By: #### L 500.4050, L100.0100 ####[facility] [address] [place], [address] AST Normal 15-37 [facility] Comment on above: Result Comment: Canc elled via OM: Order cancelled - Patient discharged Performed By: #### L 500.4050, L100.0100 ####[facility] [address] [place], [address] BUN Normal 7-18 [facility] Comment on above: Result Comment: Canc elled via OM: Order cancelled - Patient discharged Performed By: #### L 500.4050, L100.0100 ####[facility] [address] [place], [address] BUN/CRE Normal 10-20 [facility] Comment on above: Result Comment: Canc elled via OM: Order cancelled - Patient discharged Performed By: #### L 500.4050, L100.0100 ####[facility] [address] [place], [address] CA,Total Normal 8.5-10.1 [facility] Comment on above: Result Comment: Canc elled via OM: Order cancelled - Patient discharged Performed By: #### L 500.4050, L100.0100 ####[facility] [address] [place], [address] CL Normal 98-107 [facility] Comment on above: Result Comment: Canc elled via OM: Order cancelled - Patient discharged Performed By: #### L 500.4050, L100.0100 ####[facility] [address] [place], [address] CO2 Normal 21.0-32.0 [facility] Comment on above: Result Comment: Canc elled via OM: Order cancelled - Patient discharged Performed By: #### L 500.4050, L100.0100 ####[facility] [address] [place], [address] CREAT,SERUM Normal 0.55-1.02 [facility] Comment on above: Result Comment: Canc elled via OM: Order cancelled - Patient discharged Performed By: #### L 500.4050, L100.0100 ####[facility] [address] [place], [address] EST GFR Normal >60 [facility] Comment on above: Result Comment: Canc elled via OM: Order cancelled - Patient discharged Performed By: #### L 500.4050, L100.0100 ####[facility] [address] [place], [address] EST GFR - AA Normal >60 [facility] Comment on above: Result Comment: Canc elled via OM: Order cancelled - Patient discharged Performed By: #### L 500.4050, L100.0100 ####[facility] [address] [place], [address] GAP Normal 5-15 [facility] Comment on above: Result Comment: Canc elled via OM: Order cancelled - Patient discharged Performed By: #### L 500.4050, L100.0100 ####[facility] [address] [place], [address] GLU Normal 74-106 [facility] Comment on above: Result Comment: Canc elled via OM: Order cancelled - Patient discharged Performed By: #### L 500.4050, L100.0100 ####[facility] [address] [place], [address] Potassium Normal 3.5-5.1 [facility] Comment on above: Result Comment: Canc elled via OM: Order cancelled - Patient discharged Performed By: #### L 500.4050, L100.0100 ####[facility] [address] [place], [address] T BILI Normal 0.20-1.00 [facility] Comment on above: Result Comment: Canc elled via OM: Order cancelled - Patient discharged Performed By: #### L 500.4050, L100.0100 ####[facility] [address] [place], [address] T PROT Normal 6.4-8.2 [facility] Comment on above: Result Comment: Canc elled via OM: Order cancelled - Patient discharged Performed By: #### L 500.4050, L100.0100 ####[facility] [address] [place], [address] Comprehensive Metabolic Profil Normal 136-145 [facility] Comment on above: Result Comment: Canc elled via OM: Order cancelled - Patient discharged Performed By: #### L 500.4050, L100.0100 ####[facility] [address] [place], [address] CBC W/Diff, Automatedon 11--2023 Absolute Neut Normal 2.0-7.7 [facility] Comment on above: Result Comment: Canc elled via OM: Order cancelled - Patient discharged Performed By: #### L 500.4050, L100.0100 ####[facility] [address] [place], [address] HCT Normal 37-47 [facility] Comment on above: Result Comment: Canc elled via OM: Order cancelled - Patient discharged Performed By: #### L 500.4050, L100.0100 ####[facility] [address] [place], [address] HGB Normal 12.0-15.0 [facility] Comment on above: Result Comment: Canc elled via OM: Order cancelled - Patient discharged Performed By: #### L 500.4050, L100.0100 ####[facility] [address] [place], [address] MCH Normal 27.0-32.0 [facility] Comment on above: Result Comment: Canc elled via OM: Order cancelled - Patient discharged Performed By: #### L 500.4050, L100.0100 ####[facility] [address] [place], [address] MCHC Normal 32-36 [facility] Comment on above: Result Comment: Canc elled via OM: Order cancelled - Patient discharged Performed By: #### L 500.4050, L100.0100 ####[facility] [address] [place], [address] MCV Normal 81-99 [facility] Comment on above: Result Comment: Canc elled via OM: Order cancelled - Patient discharged Performed By: #### L 500.4050, L100.0100 ####[facility] [address] [place], [address] NEUT% Normal 47-70 [facility] Comment on above: Result Comment: Canc elled via OM: Order cancelled - Patient discharged Performed By: #### L 500.4050, L100.0100 ####[facility] [address] [place], [address] PLT Normal 150-450 [facility] Comment on above: Result Comment: Canc elled via OM: Order cancelled - Patient discharged Performed By: #### L 500.4050, L100.0100 ####[facility] [address] [place], [address] RBC Normal 4.2-5.4 [facility] Comment on above: Result Comment: Canc elled via OM: Order cancelled - Patient discharged Performed By: #### L 500.4050, L100.0100 ####[facility] [address] [place], [address] RDW CV Normal 11.6-14.6 [facility] Comment on above: Result Comment: Canc elled via OM: Order cancelled - Patient discharged Performed By: #### L 500.4050, L100.0100 ####[facility] [address] [place], [address] RDW SD Normal 35.1-43.9 [facility] Comment on above: Result Comment: Canc elled via OM: Order cancelled - Patient discharged Performed By: #### L 500.4050, L100.0100 ####[facility] [address] [place], [address] WBC Normal 4.4-11.0 [facility] Comment on above: Result Comment: Canc elled via OM: Order cancelled - Patient discharged Performed By: #### L 500.4050, L100.0100 ####[facility] [address] [place], [address] Comprehensive Metabolic Prof ilon 01-14-2024 ALB Normal 3.2-5.0 [facility] Comment on above: Result Comment: Canc elled via OM: Order cancelled - Patient discharged Performed By: #### L 500.4050, L100.0100 ####[facility] [address] [place], [address] ALK P Normal 45-117 [facility] Comment on above: Result Comment: Canc elled via OM: Order cancelled - Patient discharged Performed By: #### L 500.4050, L100.0100 ####[facility] [address] [place], [address] ALT Normal 13-56 [facility] Comment on above: Result Comment: Canc elled via OM: Order cancelled - Patient discharged Performed By: #### L 500.4050, L100.0100 ####[facility] [address] [place], [address] AST Normal 15-37 [facility] Comment on above: Result Comment: Canc elled via OM: Order cancelled - Patient discharged Performed By: #### L 500.4050, L100.0100 ####[facility] [address] [place], [address] BUN Normal 7-18 [facility] Comment on above: Result Comment: Canc elled via OM: Order cancelled - Patient discharged Performed By: #### L 500.4050, L100.0100 ####[facility] [address] [place], [address] BUN/CRE Normal 10-20 [facility] Comment on above: Result Comment: Canc elled via OM: Order cancelled - Patient discharged Performed By: #### L 500.4050, L100.0100 ####[facility] [address] [place], [address] CA,Total Normal 8.5-10.1 [facility] Comment on above: Result Comment: Canc elled via OM: Order cancelled - Patient discharged Performed By: #### L 500.4050, L100.0100 ####[facility] [address] [place], [address] CL Normal 98-107 [facility] Comment on above: Result Comment: Canc elled via OM: Order cancelled - Patient discharged Performed By: #### L 500.4050, L100.0100 ####[facility] [address] [place], [address] CO2 Normal 21.0-32.0 [facility] Comment on above: Result Comment: Canc elled via OM: Order cancelled - Patient discharged Performed By: #### L 500.4050, L100.0100 ####[facility] [address] [place], [address] CREAT,SERUM Normal 0.55-1.02 [facility] Comment on above: Result Comment: Canc elled via OM: Order cancelled - Patient discharged Performed By: #### L 500.4050, L100.0100 ####[facility] [address] [place], [address] EST GFR Normal >60 [facility] Comment on above: Result Comment: Canc elled via OM: Order cancelled - Patient discharged Performed By: #### L 500.4050, L100.0100 ####[facility] [address] [place], [address] EST GFR - AA Normal >60 [facility] Comment on above: Result Comment: Canc elled via OM: Order cancelled - Patient discharged Performed By: #### L 500.4050, L100.0100 ####[facility] [address] [place], [address] GAP Normal 5-15 [facility] Comment on above: Result Comment: Canc elled via OM: Order cancelled - Patient discharged Performed By: #### L 500.4050, L100.0100 ####[facility] [address] [place], [address] GLU Normal 74-106 [facility] Comment on above: Result Comment: Canc elled via OM: Order cancelled - Patient discharged Performed By: #### L 500.4050, L100.0100 ####[facility] [address] [place], [address] Potassium Normal 3.5-5.1 [facility] Comment on above: Result Comment: Canc elled via OM: Order cancelled - Patient discharged Performed By: #### L 500.4050, L100.0100 ####[facility] [address] [place], [address] T BILI Normal 0.20-1.00 [facility] Comment on above: Result Comment: Canc elled via OM: Order cancelled - Patient discharged Performed By: #### L 500.4050, L100.0100 ####[facility] [address] [place], [address] T PROT Normal 6.4-8.2 [facility] Comment on above: Result Comment: Canc elled via OM: Order cancelled - Patient discharged Performed By: #### L 500.4050, L100.0100 ####[facility] [address] [place], [address] Comprehensive Metabolic Profil Normal 136-145 [facility] Comment on above: Result Comment: Canc elled via OM: Order cancelled - Patient discharged Performed By: #### L 500.4050, L100.0100 ####[facility] [address] [place], [address] Bedside Glucoseon 01-13-2024 FINGERSTICK GLU 203 mg/dL High 74-106 [facility] Comment on above: Result Comment: DILIA GEMENT OF PATIENT CARE PER NURSING PROTOCOL Performed By: #### L 501.080 ####[facility] [address] [place], [address] FINGERSTICK GLU 148 mg/dL High 74-106 [facility] Comment on above: Result Comment: DILIA GEMENT OF PATIENT CARE PER NURSING PROTOCOL Performed By: #### L 501.080 ####[facility] [address] [place], [address] CBC W/Diff, Automatedon 11- Absolute Lymph 1.15 X10 3/uL Normal 0.83-4.51 [facility] Comment on above: Performed By: #### L 100.0100 ####[facility] [address] [place], [address] Absolute Neut 5.9 X10 3/uL Normal 2.0-7.7 [facility] Comment on above: Performed By: #### L 100.0100 ####[facility] [address] [place], [address] Basophils/100 WBC (Bld) 0.5 % Normal 0-[address] [facility] Comment on above: Performed By: #### L 100.0100 ####[facility] [address] [place], [address] Eosinophils/100 WBC (Bld) 2.0 % Normal 0-5 [facility] Comment on above: Performed By: #### L 100.0100 ####[facility] [address] [place], [address] Erythrocyte distribution width (RBC) [Ratio] 19.1 % High 11.6-14.6 [facility] Comment on above: Performed By: #### L 100.0100 ####[facility] [address] [place], [address] Hematocrit (Bld) [Volume fraction] 27.0 % Low 37-47 [facility] Comment on above: Performed By: #### L 100.0100 ####[facility] [address] [place], [address] Hemoglobin (Bld) [Mass/Vol] 8.2 g/dL Low 12.0-15.0 [facility] Comment on above: Performed By: #### L 100.0100 ####[facility] [address] [place], [address] IG% 3.400 High 0.0-0.9 [facility] Comment on above: Result Comment: IG% - Immature Granulocytes (promyelocytes, myelocytes andmetamyelocytes) > 1% indicates that a LEFT SHIFT is Present. Performed By: #### L 100.0100 ####[facility] [address] [place], [address] Lymphocytes/100 WBC (Bld) 13.5 % Low 19-41 [facility] Comment on above: Performed By: #### L 100.0100 ####[facility] [address] [place], [address] MCH (RBC) [Entitic mass] 24.1 pg Low 27.0-32.0 [facility] Comment on above: Performed By: #### L 100.0100 ####[facility] [address] [place], [address] MCHC (RBC) [Mass/Vol] 30.4 g/dL Low 32-36 [facility] Comment on above: Performed By: #### L 100.0100 ####[facility] [address] [place], [address] MCV (RBC) [Entitic vol] 79.4 fL Low 81-[address] [facility] Comment on above: Performed By: #### L 100.0100 ####[facility] [address] [place], [address] Monocytes/100 WBC (Bld) 11.5 % High 0-[address] [facility] Comment on above: Performed By: #### L 100.0100 ####[facility] [address] [place], [address] Neutrophils/100 WBC (Bld) 69.1 % Normal 47-70 [facility] Comment on above: Performed By: #### L 100.0100 ####[facility] [address] [place], [address] Nucleated RBC (Bld) [#/Vol] 0.2 10*3/uL Normal 0-5 [facility] Comment on above: Performed By: #### L 100.0100 ####[facility] [address] [place], [address] Platelet mean volume (Bld) [Entitic vol] 9.1 fL Normal 6.2-12.0 [facility] Comment on above: Performed By: #### L 100.0100 ####[facility] [address] [place], [address] Platelets (Bld) [#/Vol] 324 10*3/uL Normal 150-450 [facility] Comment on above: Performed By: #### L 100.0100 ####[facility] [address] [place], [address] RBC (Bld) [#/Vol] 3.40 10*6/uL Low 4.2-5.4 [facility] Comment on above: Performed By: #### L 100.0100 ####[facility] [address] [place], [address] RDW SD 54.2 fl High 35.1-43.9 [facility] Comment on above: Performed By: #### L 100.0100 ####[facility] [address] [place], [address] WBC (Bld) [#/Vol] 8.5 10*3/uL Normal 4.4-11.0 [facility] Comment on above: Performed By: #### L 100.0100 ####[facility] [address] [place], [address] Comprehensive Metabolic Prof [facility] 01-13-2024 Albumin [Mass/Vol] 2.3 g/dL Low 3.2-5.0 [facility] Comment on above: Performed By: #### L 500.4050, L501.2300, L501.5200 ####[facility] [address] [place], [address] Albumin/Globulin [Mass ratio] 0.6 {ratio} Low 0.9-2.4 [facility] Comment on above: Performed By: #### L 500.4050, L501.2300, L501.5200 ####[facility] [address] [place], [address] ALK P 98 U/L Normal 45-117 [facility] Comment on above: Performed By: #### L 500.4050, L501.2300, L501.5200 ####[facility] [address] [place], [address] ALT [Catalytic activity/Vol] 20 U/L Normal 13-56 [facility] Comment on above: Performed By: #### L 500.4050, L501.2300, L501.5200 ####[facility] [address] [place], [address] AST [Catalytic activity/Vol] 21 U/L Normal 15-37 [facility] Comment on above: Performed By: #### L 500.4050, L501.2300, L501.5200 ####[facility] [address] [place], [address] Bilirubin [Mass/Vol] 0.30 mg/dL Normal 0.20-1.00 [facility] Comment on above: Result Comment: For patients on eltrombopag therapy, use of Dimension [place] TBIL is not recommended. Performed By: #### L 500.4050, L501.2300, L501.5200 ####[facility] [address] [place], [address] BUN/CRE 12.9 RATIO Normal 10-20 [facility] Comment on above: Performed By: #### L 500.4050, L501.2300, L501.5200 ####[facility] [address] [place], [address] CA,Total 8.4 mg/dL Low 8.5-10.1 [facility] Comment on above: Performed By: #### L 500.4050, L501.2300, L501.5200 ####[facility] [address] [place], [address] Chloride [Moles/Vol] 111 mmol/L High 98-107 [facility] Comment on above: Performed By: #### L 500.4050, L501.2300, L501.5200 ####[facility] [address] [place], [address] CO2 [Moles/Vol] 25.0 mmol/L Normal 21.0-32.0 [facility] Comment on above: Performed By: #### L 500.4050, L501.2300, L501.5200 ####[facility] [address] [place], [address] Creatinine [Mass/Vol] 0.62 mg/dL Normal 0.55-1.02 [facility] Comment on above: Result Comment: The validity of the calculated GFR GFRAA in patients over70 years has not been determined. Clinical correlation isessential. Performed By: #### L 500.4050, L501.2300, L501.5200 ####[facility] [address] [place], [address] ECRCL 93.75 ml/min Normal [facility] Comment on above: Performed By: #### L 500.4050, L501.2300, L501.5200 ####[facility] [address] [place], [address] EST GFR - AA 125 mL/min Normal >60 [facility] Comment on above: Result Comment: Afri can Omani GFR Calc Performed By: #### L 500.4050, L501.2300, L501.5200 ####[facility] [address] [place], [address] GAP 5 Normal 5-15 [facility] Comment on above: Performed By: #### L 500.4050, L501.2300, L501.5200 ####[facility] [address] [place], [address] GFR/1.73 sq M.predicted among non-blacks MDRD (S/P/Bld) [Vol rate/Area] 103 mL/min/{1.73_m2} Normal >60 [facility] Comment on above: Result Comment: Non- GFR Calc Performed By: #### L 500.4050, L501.2300, L501.5200 ####[facility] [address] [place], [address] Globulin (S) [Mass/Vol] 3.9 g/dL Normal 2.2-4.[address] [facility] Comment on above: Performed By: #### L 500.4050, L501.2300, L501.5200 ####[facility] [address] [place], [address] Glucose [Mass/Vol] 161 mg/dL High 74-106 [facility] Comment on above: Result Comment: Fast ing Glucose result greater than or equal to 126 mg/dLsuggests DIABETES MELLITUS per A.D.A. criteria. Performed By: #### L 500.4050, L501.2300, L501.5200 ####[facility] [address] [place], [address] Potassium [Moles/Vol] 3.2 mmol/L Low 3.5-5.1 [facility] Comment on above: Performed By: #### L 500.4050, L501.2300, L501.5200 ####[facility] [address] [place], [address] Sodium [Moles/Vol] 140 mmol/L Normal 136-145 [facility] Comment on above: Performed By: #### L 500.4050, L501.2300, L501.5200 ####[facility] [address] [place], [address] T PROT 6.2 g/dL Low 6.4-8.2 [facility] Comment on above: Performed By: #### L 500.4050, L501.2300, L501.5200 ####[facility] [address] [place], [address] Urea nitrogen [Mass/Vol] 8 mg/dL Normal 7-18 [facility] Comment on above: Performed By: #### L 500.4050, L501.2300, L501.5200 ####[facility] [address] [place], [address] Discharge Instructionon 11-0 Discharge Instruction Normal [facility] Magnesiumon 01-13-2024 Magnesium [Mass/Vol] 1.8 mg/dL Normal 1.6-2.6 [facility] Comment on above: Order Comment: Comme nts: add to am labs Performed By: #### L 501.5200 ####[facility] [address] [place], [address] Magnesium [Mass/Vol] 1.8 mg/dL Normal 1.6-2.6 [facility] Comment on above: Performed By: #### L 500.4050, L501.2300, L501.5200 ####[facility] [address] [place], [address] Phosphoruson 01-13-2024 Phosphate [Mass/Vol] 2.8 mg/dL Normal 2.5-4.9 [facility] Comment on above: Performed By: #### L 500.4050, L501.2300, L501.5200 ####[facility] [address] [place], [address] 12 Lead EKGon 01-12-2024 12 Lead EKG Normal [facility] Bedside Glucoseon 01-12-2024 FINGERSTICK GLU 196 mg/dL High 74-106 [facility] Comment on above: Result Comment: DILIA GEMENT OF PATIENT CARE PER NURSING PROTOCOL Performed By: #### L 501.080 ####[facility] [address] [place], [address] FINGERSTICK GLU 156 mg/dL High 74-106 [facility] Comment on above: Result Comment: DILIA GEMENT OF PATIENT CARE PER NURSING PROTOCOL Performed By: #### L 501.080 ####[facility] [address] [place], [address] FINGERSTICK GLU 198 mg/dL High 74-106 [facility] Comment on above: Result Comment: DILIA SALCEDO OF PATIENT CARE PER NURSING PROTOCOL Performed By: #### L 501.080 ####[facility] [address] [place], [address] CBC W/Diff, Automatedon 11-0 8-4 Absolute Lymph 1.19 X10 3/uL Normal 0.83-4.51 [facility] Comment on above: Performed By: #### L 100.0100 ####[facility] [address] [place], [address] Absolute Neut 7.4 X10 3/uL Normal 2.0-7.7 [facility] Comment on above: Performed By: #### L 100.0100 ####[facility] [address] [place], [address] Basophils/100 WBC (Bld) 0.5 % Normal 0-[address] [facility] Comment on above: Performed By: #### L 100.0100 ####[facility] [address] [place], [address] Eosinophils/100 WBC (Bld) 0.8 % Normal 0-5 [facility] Comment on above: Performed By: #### L 100.0100 ####[facility] [address] [place], [address] Erythrocyte distribution width (RBC) [Ratio] 19.1 % High 11.6-14.6 [facility] Comment on above: Performed By: #### L 100.0100 ####[facility] [address] [place], [address] Hematocrit (Bld) [Volume fraction] 28.6 % Low 37-47 [facility] Comment on above: Performed By: #### L 100.0100 ####[facility] [address] [place], [address] Hemoglobin (Bld) [Mass/Vol] 8.4 g/dL Low 12.0-15.0 [facility] Comment on above: Performed By: #### L 100.0100 ####[facility] [address] [place], [address] IG% 2.200 High 0.0-0.9 [facility] Comment on above: Result Comment: IG% - Immature Granulocytes (promyelocytes, myelocytes andmetamyelocytes) > 1% indicates that a LEFT SHIFT is Present. Performed By: #### L 100.0100 ####[facility] [address] [place], [address] Lymphocytes/100 WBC (Bld) 11.7 % Low 19-41 [facility] Comment on above: Performed By: #### L 100.0100 ####[facility] [address] [place], [address] MCH (RBC) [Entitic mass] 23.5 pg Low 27.0-32.0 [facility] Comment on above: Performed By: #### L 100.0100 ####[facility] [address] [place], [address] MCHC (RBC) [Mass/Vol] 29.4 g/dL Low 32-36 [facility] Comment on above: Performed By: #### L 100.0100 ####[facility] [address] [place], [address] MCV (RBC) [Entitic vol] 79.9 fL Low 81-[address] [facility] Comment on above: Performed By: #### L 100.0100 ####[facility] [address] [place], [address] Monocytes/100 WBC (Bld) 11.8 % High 0-[address] [facility] Comment on above: Performed By: #### L 100.0100 ####[facility] [address] [place], [address] Neutrophils/100 WBC (Bld) 73.0 % High 47-70 [facility] Comment on above: Performed By: #### L 100.0100 ####[facility] [address] [place], [address] Nucleated RBC (Bld) [#/Vol] 0.2 10*3/uL Normal 0-5 [facility] Comment on above: Performed By: #### L 100.0100 ####[facility] [address] [place], [address] Platelet mean volume (Bld) [Entitic vol] 8.8 fL Normal 6.2-12.0 [facility] Comment on above: Performed By: #### L 100.0100 ####[facility] [address] [place], [address] Platelets (Bld) [#/Vol] 338 10*3/uL Normal 150-450 [facility] Comment on above: Performed By: #### L 100.0100 ####[facility] [address] [place], [address] RBC (Bld) [#/Vol] 3.58 10*6/uL Low 4.2-5.4 [facility] Comment on above: Performed By: #### L 100.0100 ####[facility] [address] [place], [address] RDW SD 53.8 fl High 35.1-43.9 [facility] Comment on above: Performed By: #### L 100.0100 ####[facility] [address] [place], [address] WBC (Bld) [#/Vol] 10.1 10*3/uL Normal 4.4-11.0 [facility] Comment on above: Performed By: #### L 100.0100 ####[facility] [address] [place], [address] Absolute Lymph 1.67 X10 3/uL Normal 0.83-4.51 [facility] Comment on above: Performed By: #### L 100.0100, L500.4050, L501.2300, L501.5200, L501.9520 ####[facility] [address] [place], [address] Absolute Neut 7.3 X10 3/uL Normal 2.0-7.7 [facility] Comment on above: Performed By: #### L 100.0100, L500.4050, L501.2300, L501.5200, L501.9520 ####[facility] [address] [place], [address] Basophils/100 WBC (Bld) 0.4 % Normal 0-[address] [facility] Comment on above: Performed By: #### L 100.0100, L500.4050, L501.2300, L501.5200, L501.9520 ####[facility] [address] [place], [address] Eosinophils/100 WBC (Bld) 1.5 % Normal 0-5 [facility] Comment on above: Performed By: #### L 100.0100, L500.4050, L501.2300, L501.5200, L501.9520 ####[facility] [address] [place], [address] Erythrocyte distribution width (RBC) [Ratio] 19.0 % High 11.6-14.6 [facility] Comment on above: Performed By: #### L 100.0100, L500.4050, L501.2300, L501.5200, L501.9520 ####[facility] [address] [place], [address] Hematocrit (Bld) [Volume fraction] 25.7 % Low 37-47 [facility] Comment on above: Performed By: #### L 100.0100, L500.4050, L501.2300, L501.5200, L501.9520 ####[facility] [address] [place], [address] Hemoglobin (Bld) [Mass/Vol] 7.9 g/dL Low 12.0-15.0 [facility] Comment on above: Performed By: #### L 100.0100, L500.4050, L501.2300, L501.5200, L501.9520 ####[facility] [address] [place], [address] IG% 1.600 High 0.0-0.9 [facility] Comment on above: Result Comment: IG% - Immature Granulocytes (promyelocytes, myelocytes andmetamyelocytes) > 1% indicates that a LEFT SHIFT is Present. Performed By: #### L 100.0100, L500.4050, L501.2300, L501.5200, L501.9520 ####[facility] [address] [place], [address] Lymphocytes/100 WBC (Bld) 16.0 % Low 19-41 [facility] Comment on above: Performed By: #### L 100.0100, L500.4050, L501.2300, L501.5200, L501.9520 ####[facility] [address] [place], [address] MCH (RBC) [Entitic mass] 24.1 pg Low 27.0-32.0 [facility] Comment on above: Performed By: #### L 100.0100, L500.4050, L501.2300, L501.5200, L501.9520 ####[facility] [address] [place], [address] MCHC (RBC) [Mass/Vol] 30.7 g/dL Low 32-36 [facility] Comment on above: Performed By: #### L 100.0100, L500.4050, L501.2300, L501.5200, L501.9520 ####[facility] [address] [place], [address] MCV (RBC) [Entitic vol] 78.4 fL Low 81-[address] [facility] Comment on above: Performed By: #### L 100.0100, L500.4050, L501.2300, L501.5200, L501.9520 ####[facility] [address] [place], [address] Monocytes/100 WBC (Bld) 10.8 % High 0-[address] [facility] Comment on above: Performed By: #### L 100.0100, L500.4050, L501.2300, L501.5200, L501.9520 ####[facility] [address] [place], [address] Neutrophils/100 WBC (Bld) 69.7 % Normal 47-70 [facility] Comment on above: Performed By: #### L 100.0100, L500.4050, L501.2300, L501.5200, L501.9520 ####[facility] [address] [place], [address] Nucleated RBC (Bld) [#/Vol] 0 10*3/uL Normal 0-5 [facility] Comment on above: Performed By: #### L 100.0100, L500.4050, L501.2300, L501.5200, L501.9520 ####[facility] [address] [place], [address] Platelet mean volume (Bld) [Entitic vol] 9.0 fL Normal 6.2-12.0 [facility] Comment on above: Performed By: #### L 100.0100, L500.4050, L501.2300, L501.5200, L501.9520 ####[facility] [address] [place], [address] Platelets (Bld) [#/Vol] 289 10*3/uL Normal 150-450 [facility] Comment on above: Performed By: #### L 100.0100, L500.4050, L501.2300, L501.5200, L501.9520 ####[facility] [address] [place], [address] RBC (Bld) [#/Vol] 3.28 10*6/uL Low 4.2-5.4 [facility] Comment on above: Performed By: #### L 100.0100, L500.4050, L501.2300, L501.5200, L501.9520 ####[facility] [address] [place], [address] RDW SD 52.6 fl High 35.1-43.9 [facility] Comment on above: Performed By: #### L 100.0100, L500.4050, L501.2300, L501.5200, L501.9520 ####[facility] [address] [place], [address] WBC (Bld) [#/Vol] 10.5 10*3/uL Normal 4.4-11.0 [facility] Comment on above: Performed By: #### L 100.0100, L500.4050, L501.2300, L501.5200, L501.9520 ####[facility] [address] [place], [address] CVS/PCIREPORTon 01-12-2024 CVS/PCIREPORT Normal [facility] Comprehensive Metabolic Prof ilon 01-12-2024 Albumin [Mass/Vol] 2.3 g/dL Low 3.2-5.0 [facility] Comment on above: Performed By: #### L 100.0100, L500.4050, L501.2300, L501.5200, L501.9520 ####[facility] [address] [place], [address] Albumin/Globulin [Mass ratio] 0.6 {ratio} Low 0.9-2.4 [facility] Comment on above: Performed By: #### L 100.0100, L500.4050, L501.2300, L501.5200, L501.9520 ####[facility] [address] [place], [address] ALK P 90 U/L Normal 45-117 [facility] Comment on above: Performed By: #### L 100.0100, L500.4050, L501.2300, L501.5200, L501.9520 ####[facility] [address] [place], [address] ALT [Catalytic activity/Vol] 21 U/L Normal 13-56 [facility] Comment on above: Performed By: #### L 100.0100, L500.4050, L501.2300, L501.5200, L501.9520 ####[facility] [address] [place], [address] AST [Catalytic activity/Vol] 20 U/L Normal 15-37 [facility] [facility] Comment on above: Performed By: #### L 100.0100, L500.4050, L501.2300, L501.5200, L501.9520 ####[facility] [address] [place], [address] Bilirubin [Mass/Vol] 0.50 mg/dL Normal 0.20-1.00 [facility] Comment on above: Result Comment: For patients on eltrombopag therapy, use of Dimension [place] TBIL is not recommended. Performed By: #### L 100.0100, L500.4050, L501.2300, L501.5200, L501.9520 ####[facility] [address] [place], [address] BUN/CRE 18.1 RATIO Normal 10-20 [facility] Comment on above: Performed By: #### L 100.0100, L500.4050, L501.2300, L501.5200, L501.9520 ####[facility] [address] [place], [address] CA,Total 8.8 mg/dL Normal 8.5-10.1 [facility] Comment on above: Performed By: #### L 100.0100, L500.4050, L501.2300, L501.5200, L501.9520 ####[facility] [address] [place], [address] Chloride [Moles/Vol] 110 mmol/L High 98-107 [facility] Comment on above: Performed By: #### L 100.0100, L500.4050, L501.2300, L501.5200, L501.9520 ####[facility] [address] [place], [address] CO2 [Moles/Vol] 24.0 mmol/L Normal 21.0-32.0 [facility] Comment on above: Performed By: #### L 100.0100, L500.4050, L501.2300, L501.5200, L501.9520 ####[facility] [address] [place], [address] Creatinine [Mass/Vol] 0.55 mg/dL Normal 0.55-1.02 [facility] Comment on above: Result Comment: The validity of the calculated GFR GFRAA in patients over70 years has not been determined. Clinical correlation isessential. Performed By: #### L 100.0100, L500.4050, L501.2300, L501.5200, L501.9520 ####[facility] [address] [place], [address] ECRCL 104.22 ml/min Normal [facility] Comment on above: Performed By: #### L 100.0100, L500.4050, L501.2300, L501.5200, L501.9520 ####[facility] [address] [place], [address] EST GFR - AA 143 mL/min Normal >60 [facility] Comment on above: Result Comment: Afri can Omani GFR Calc Performed By: #### L 100.0100, L500.4050, L501.2300, L501.5200, L501.9520 ####[facility] [address] [place], [address] GAP 6 Normal 5-15 [facility] Comment on above: Performed By: #### L 100.0100, L500.4050, L501.2300, L501.5200, L501.9520 ####[facility] [address] [place], [address] GFR/1.73 sq M.predicted among non-blacks MDRD (S/P/Bld) [Vol rate/Area] 118 mL/min/{1.73_m2} Normal >60 [facility] Comment on above: Result Comment: Non- GFR Calc Performed By: #### L 100.0100, L500.4050, L501.2300, L501.5200, L501.9520 ####[facility] [address] [place], [address] Globulin (S) [Mass/Vol] 3.7 g/dL Normal 2.2-4.2 [facility] Comment on above: Performed By: #### L 100.0100, L500.4050, L501.2300, L501.5200, L501.9520 ####[facility] [address] [place], [address] Glucose [Mass/Vol] 167 mg/dL High 74-106 [facility] Comment on above: Result Comment: Fast ing Glucose result greater than or equal to 126 mg/dLsuggests DIABETES MELLITUS per A.D.A. criteria. Performed By: #### L 100.0100, L500.4050, L501.2300, L501.5200, L501.9520 ####[facility] [address] [place], [address] Potassium [Moles/Vol] 3.8 mmol/L Normal 3.5-5.1 [facility] Comment on above: Performed By: #### L 100.0100, L500.4050, L501.2300, L501.5200, L501.9520 ####[facility] [address] [place], [address] Sodium [Moles/Vol] 140 mmol/L Normal 136-145 [facility] Comment on above: Performed By: #### L 100.0100, L500.4050, L501.2300, L501.5200, L501.9520 ####[facility] [address] [place], [address] T PROT 6.0 g/dL Low 6.4-8.2 [facility] Comment on above: Performed By: #### L 100.0100, L500.4050, L501.2300, L501.5200, L501.9520 ####[facility] [address] [place], [address] Urea nitrogen [Mass/Vol] 10 mg/dL Normal 7-18 [facility] Comment on above: Performed By: #### L 100.0100, L500.4050, L501.2300, L501.5200, L501.9520 ####[facility] [address] [place], [address] Consultation - Cardiologyon 01-12-2024 Consultation - Cardiology Normal [facility] Ferritinon 01-12-2024 Ferritin [Mass/Vol] 290 ng/mL High 8-252 [facility] Comment on above: Order Comment: Comme nts: add to am labs'TROP' Serial specimen #1, #2 or #3: 1add to am labs Performed By: #### L 500.4100, L501.4020, L503.6030, L503.6550 ####[facility] [address] [place], [address] Iron+Iron Binding Capacityon 01-12-2024 Iron [Mass/Vol] 11 ug/dL Low 50-170 [facility] Comment on above: Order Comment: Comme nts: add to am labs'TROP' Serial specimen #1, #2 or #3: 1add to am labs Performed By: #### L 500.4100, L501.4020, L503.6030, L503.6550 ####[facility] [address] [place], [address] IRON SATURATION 6.7 Low 15.0-55.0 [facility] Comment on above: Order Comment: Comme nts: add to am labs'TROP' Serial specimen #1, #2 or #3: 1add to am labs Performed By: #### L 500.4100, L501.4020, L503.6030, L503.6550 ####[facility] [address] [place], [address] TIBC 163 ug/dL Low 250-450 [facility] Comment on above: Order Comment: Comme nts: add to am labs'TROP' Serial specimen #1, #2 or #3: 1add to am labs Performed By: #### L 500.4100, L501.4020, L503.6030, L503.6550 ####[facility] [address] [place], [address] L501.4020on 01-12-2024 TROPONIN-I HS 466 pg/mL Invalid Interpretation Code 3.0-54.0 [facility] Comment on above: Order Comment: Comme nts: add to am labs'TROP' Serial specimen #1, #2 or #3: 1add to am labs Result Comment: Crit ical Result(s) Called at: 08:57:24 01/12/2024 by: García to Annalise Gore. Results read back by same. Please Note: New Test Units and Gender Specific Reference Ranges. For more information see Policy Stat Procedure [place] High Sensitivity Troponin (TNIH) and attachments. Performed By: #### L 500.4100, L501.4020, L503.6030, L503.6550 ####[facility] [address], [address] Legionella Antigen Urineon 1 03-13-2023 LEGU URINE, RANDOM Negative Presumptive negative for Legionella pneumophila serogroup 1 antigen in urine, suggesting no recent or current infection. Legionella Ag, Urine Negative (See interpretation below) Normal [facility] Comment on above: Performed By: #### M 300.4500, M300.4600 ####[facility] [address] [place], [address] Lipid Profileon 01-12-2024 Cholesterol [Mass/Vol] 69 mg/dL Normal 200 [facility] Comment on above: Order Comment: Comme nts: add to am labs'TROP' Serial specimen #1, #2 or #3: 1add to am labs Result Comment: <200 mg/dL Desirable 200-240 mg/dL Borderline >240 mg/dL High Risk Performed By: #### L 500.4100, L501.4020, L503.6030, L503.6550 ####[facility] [address] [place], [address] Cholesterol in HDL [Mass/Vol] 25 mg/dL Low [facility] Comment on above: Order Comment: Comme nts: add to am labs'TROP' Serial specimen #1, #2 or #3: 1add to am labs Result Comment: The drugs N-Acetylcysteine and Metamizole may falselydepress this assay. Reference Range HDL <40 mg/dL Low HDL Cholesterol HDL >or= 60 mg/dL High HDL Cholesterol Performed By: #### L 500.4100, L501.4020, L503.6030, L503.6550 ####[facility] [address] [place], [address] Cholesterol in LDL [Mass/Vol] 30 mg/dL Normal 0-130 [facility] Comment on above: Order Comment: Comme nts: add to am labs'TROP' Serial specimen #1, #2 or #3: 1add to am labs Performed By: #### L 500.4100, L501.4020, L503.6030, L503.6550 ####[facility] [address] [place], [address] Cholesterol in VLDL [Mass/Vol] 14 mg/dL Normal 5-40 [facility] Comment on above: Order Comment: Comme nts: add to am labs'TROP' Serial specimen #1, #2 or #3: 1add to am labs Performed By: #### L 500.4100, L501.4020, L503.6030, L503.6550 ####[facility] [address] [place], [address] Triglyceride [Mass/Vol] 71 mg/dL Normal [facility] Comment on above: Order Comment: Comme nts: add to am labs'TROP' Serial specimen #1, #2 or #3: 1add to am labs Result Comment: The drugs N-Acetylcysteine and Metamizole may falselydepress this assay.Serum Triglycerides Reference Interval Normal <150 mg/dL Borderline high 150 - 199 mg/dL High 200 - 499 mg/dL Very High > or = 500 mg/dL Performed By: #### L 500.4100, L501.4020, L503.6030, L503.6550 ####[facility] [address] [place], [address] Magnesiumon 01-12-2024 Magnesium [Mass/Vol] 2.0 mg/dL Normal 1.6-2.6 [facility] Comment on above: Performed By: #### L 100.0100, L500.4050, L501.2300, L501.5200, L501.9520 ####[facility] [address] [place], [address] Phosphoruson 01-12-2024 Phosphate [Mass/Vol] 3.2 mg/dL Normal 2.5-4.9 [facility] Comment on above: Performed By: #### L 100.0100, L500.4050, L501.2300, L501.5200, L501.9520 ####[facility] [address] [place], [address] Stool Occult Blood iFOBon STOB Normal [facility] Comment on above: Performed By: #### M 100.7900 ####[facility] [address] [place], [address] Strep pneumoniae Antig(UR,CS F)on 01-12-2024 STPAG Normal [facility] Comment on above: Performed By: #### M 300.4500, M300.4600 ####[facility] [address] [place], [address] Thyroid Stim Hormone (TSH)on 01-12-2024 TSH 2.490 uIU/mL Normal 0.358-3.740 [facility] Comment on above: Performed By: #### L 100.0100, L500.4050, L501.2300, L501.5200, L501.9520 ####[facility] [address] [place], [address] 12 Lead EKGon 01-11-2024 12 Lead EKG Normal [facility] 12 Lead EKG Normal [facility] Basic Metabolic Profile (BMP )on 01-11-2024 BUN/CRE 13.8 RATIO Normal 10-20 [facility] Comment on above: Order Comment: 'TROP ' Serial specimen #1, #2 or #3: 1 Performed By: #### L 500.2500, L501.4020, L100.0100 ####[facility] [address] [place], [address] CA,Total 8.9 mg/dL Normal 8.5-10.1 [facility] Comment on above: Order Comment: 'TROP ' Serial specimen #1, #2 or #3: 1 Performed By: #### L 500.2500, L501.4020, L100.0100 ####[facility] [address] [place], [address] Chloride [Moles/Vol] 106 mmol/L Normal 98-107 [facility] Comment on above: Order Comment: 'TROP ' Serial specimen #1, #2 or #3: 1 Performed By: #### L 500.2500, L501.4020, L100.0100 ####[facility] [address] [place], [address] CO2 [Moles/Vol] 25.0 mmol/L Normal 21.0-32.0 [facility] Comment on above: Order Comment: 'TROP ' Serial specimen #1, #2 or #3: 1 Performed By: #### L 500.2500, L501.4020, L100.0100 ####[facility] [address] [place], [address] Creatinine [Mass/Vol] 0.65 mg/dL Normal 0.55-1.02 [facility] Comment on above: Order Comment: 'TROP ' Serial specimen #1, #2 or #3: 1 Result Comment: The validity of the calculated GFR GFRAA in patients over70 years has not been determined. Clinical correlation isessential. Performed By: #### L 500.2500, L501.4020, L100.0100 ####[facility] [address] [place], [address] ECRCL 88.73 ml/min Normal [facility] Comment on above: Order Comment: 'TROP ' Serial specimen #1, #2 or #3: 1 Performed By: #### L 500.2500, L501.4020, L100.0100 ####[facility] [address] [place], [address] EST GFR - AA 118 mL/min Normal >60 [facility] Comment on above: Order Comment: 'TROP ' Serial specimen #1, #2 or #3: 1 Result Comment: Afri can [place]i GFR Calc Performed By: #### L 500.2500, L501.4020, L100.0100 ####[facility] [address] [place], [address] GAP 6 Normal 5-15 [facility] Comment on above: Order Comment: 'TROP ' Serial specimen #1, #2 or #3: 1 Performed By: #### L 500.2500, L501.4020, L100.0100 ####[facility] [address] [place], [address] GFR/1.73 sq M.predicted among non-blacks MDRD (S/P/Bld) [Vol rate/Area] 98 mL/min/{1.73_m2} Normal >60 [facility] Comment on above: Order Comment: 'TROP ' Serial specimen #1, #2 or #3: 1 Result Comment: Non- GFR Calc Performed By: #### L 500.2500, L501.4020, L100.0100 ####[facility] [address] [place], [address] Glucose [Mass/Vol] 165 mg/dL High 74-106 [facility] Comment on above: Order Comment: 'TROP ' Serial specimen #1, #2 or #3: 1 Result Comment: Fast ing Glucose result greater than or equal to 126 mg/dLsuggests DIABETES MELLITUS per A.D.A. criteria. Performed By: #### L 500.2500, L501.4020, L100.0100 ####[facility] [address] [place], [address] Potassium [Moles/Vol] 3.3 mmol/L Low 3.5-5.1 [facility] Comment on above: Order Comment: 'TROP ' Serial specimen #1, #2 or #3: 1 Performed By: #### L 500.2500, L501.4020, L100.0100 ####[facility] [address] [place], [address] Sodium [Moles/Vol] 138 mmol/L Normal 136-145 [facility] Comment on above: Order Comment: 'TROP ' Serial specimen #1, #2 or #3: 1 Performed By: #### L 500.2500, L501.4020, L100.0100 ####[facility] [address] [place], [address] Urea nitrogen [Mass/Vol] 9 mg/dL Normal 7-18 [facility] Comment on above: Order Comment: 'TROP ' Serial specimen #1, #2 or #3: 1 Performed By: #### L 500.2500, L501.4020, L100.0100 ####[facility] [address] [place], [address] Bedside Glucoseon 01-11-2024 FINGERSTICK GLU 155 mg/dL High 74-106 [facility] Comment on above: Result Comment: DILIA SALCEDO OF PATIENT CARE PER NURSING PROTOCOL Performed By: #### L 501.080 ####[facility] [address] [place], [address] CBC W/Diff, Automatedon 11 Absolute Lymph 1.46 X10 3/uL Normal 0.83-4.51 [facility] Comment on above: Performed By: #### L 500.2500, L501.4020, L100.0100 ####[facility] [address] [place], [address] Absolute Neut 9.9 X10 3/uL High 2.0-7.7 [facility] Comment on above: Performed By: #### L 500.2500, L501.4020, L100.0100 ####[facility] [address] [place], [address] Basophils/100 WBC (Bld) 0.5 % Normal 0-[address] [facility] Comment on above: Performed By: #### L 500.2500, L501.4020, L100.0100 ####[facility] [address] [place], [address] Eosinophils/100 WBC (Bld) 1.1 % Normal 0-5 [facility] Comment on above: Performed By: #### L 500.2500, L501.4020, L100.0100 ####[facility] [address] [place], [address] Erythrocyte distribution width (RBC) [Ratio] 18.7 % High 11.6-14.6 [facility] Comment on above: Performed By: #### L 500.2500, L501.4020, L100.0100 ####[facility] [address] [place], [address] Hematocrit (Bld) [Volume fraction] 28.8 % Low 37-47 [facility] Comment on above: Performed By: #### L 500.2500, L501.4020, L100.0100 ####[facility] [address] [place], [address] Hemoglobin (Bld) [Mass/Vol] 8.9 g/dL Low 12.0-15.0 [facility] Comment on above: Performed By: #### L 500.2500, L501.4020, L100.0100 ####[facility] [address] [place], [address] IG% 2.900 High 0.0-0.9 [facility] Comment on above: Result Comment: IG% - Immature Granulocytes (promyelocytes, myelocytes andmetamyelocytes) > 1% indicates that a LEFT SHIFT is Present. Performed By: #### L 500.2500, L501.4020, L100.0100 ####[facility] [address] [place], [address] Lymphocytes/100 WBC (Bld) 11.1 % Low 19-41 [facility] Comment on above: Performed By: #### L 500.2500, L501.4020, L100.0100 ####[facility] [address] [place], [address] MCH (RBC) [Entitic mass] 24.3 pg Low 27.0-32.0 [facility] Comment on above: Performed By: #### L 500.2500, L501.4020, L100.0100 ####[facility] [address] [place], [address] MCHC (RBC) [Mass/Vol] 30.9 g/dL Low 32-36 [facility] Comment on above: Performed By: #### L 500.2500, L501.4020, L100.0100 ####[facility] [address] [place], [address] MCV (RBC) [Entitic vol] 78.7 fL Low 81-99 [facility] Comment on above: Performed By: #### L 500.2500, L501.4020, L100.0100 ####[facility] [address] [place], [address] Monocytes/100 WBC (Bld) 9.2 % Normal 0-[address] [facility] Comment on above: Performed By: #### L 500.2500, L501.4020, L100.0100 ####[facility] [address] [place], [address] Neutrophils/100 WBC (Bld) 75.2 % High 47-70 [facility] Comment on above: Performed By: #### L 500.2500, L501.4020, L100.0100 ####[facility] [address] [place], [address] Nucleated RBC (Bld) [#/Vol] 0.2 10*3/uL Normal 0-5 [facility] Comment on above: Performed By: #### L 500.2500, L501.4020, L100.0100 ####[facility] [address] [place], [address] Platelet mean volume (Bld) [Entitic vol] 8.9 fL Normal 6.2-12.0 [facility] Comment on above: Performed By: #### L 500.2500, L501.4020, L100.0100 ####[facility] [address] [place], [address] Platelets (Bld) [#/Vol] 380 10*3/uL Normal 150-450 [facility] Comment on above: Performed By: #### L 500.2500, L501.4020, L100.0100 ####[facility] [address] [place], [address] RBC (Bld) [#/Vol] 3.66 10*6/uL Low 4.2-5.4 [facility] Comment on above: Performed By: #### L 500.2500, L501.4020, L100.0100 ####[facility] [address] [place], [address] RDW SD 52.1 fl High 35.1-43.9 [facility] Comment on above: Performed By: #### L 500.2500, L501.4020, L100.0100 ####[facility] [address] [place], [address] WBC (Bld) [#/Vol] 13.2 10*3/uL High 4.4-11.0 [facility] Comment on above: Performed By: #### L 500.2500, L501.4020, L100.0100 ####[facility] [address] [place], [address] Absolute Lymph 1.85 X10 3/uL Normal 0.83-4.51 [facility] Comment on above: Performed By: #### L 100.0100, L500.4050, L501.4020, L501.9520, L506.1000 ####[facility] [address] [place], [address] Absolute Neut 9.4 X10 3/uL High 2.0-7.7 [facility] Comment on above: Performed By: #### L 100.0100, L500.4050, L501.4020, L501.9520, L506.1000 ####[facility] [address] [place], [address] Basophils/100 WBC (Bld) 0.7 % Normal 0-[address] [facility] Comment on above: Performed By: #### L 100.0100, L500.4050, L501.4020, L501.9520, L506.1000 ####[facility] [address] [place], [address] Eosinophils/100 WBC (Bld) 1.0 % Normal 0-5 [facility] Comment on above: Performed By: #### L 100.0100, L500.4050, L501.4020, L501.9520, L506.1000 ####[facility] [address] [place], [address] Erythrocyte distribution width (RBC) [Ratio] 18.7 % High 11.6-14.6 [facility] Comment on above: Performed By: #### L 100.0100, L500.4050, L501.4020, L501.9520, L506.1000 ####[facility] [address] [place], [address] Hematocrit (Bld) [Volume fraction] 31.0 % Low 37-47 [facility] Comment on above: Performed By: #### L 100.0100, L500.4050, L501.4020, L501.9520, L506.1000 ####[facility] [address] [place], [address] Hemoglobin (Bld) [Mass/Vol] 9.4 g/dL Low 12.0-15.0 [facility] Comment on above: Performed By: #### L 100.0100, L500.4050, L501.4020, L501.9520, L506.1000 ####[facility] [address] [place], [address] IG% 2.300 High 0.0-0.9 [facility] Comment on above: Result Comment: IG% - Immature Granulocytes (promyelocytes, myelocytes andmetamyelocytes) > 1% indicates that a LEFT SHIFT is Present. Performed By: #### L 100.0100, L500.4050, L501.4020, L501.9520, L506.1000 ####[facility] [address] [place], [address] Lymphocytes/100 WBC (Bld) 14.4 % Low 19-41 [facility] Comment on above: Performed By: #### L 100.0100, L500.4050, L501.4020, L501.9520, L506.1000 ####[facility] [address] [place], [address] MCH (RBC) [Entitic mass] 24.0 pg Low 27.0-32.0 [facility] Comment on above: Performed By: #### L 100.0100, L500.4050, L501.4020, L501.9520, L506.1000 ####[facility] [address] [place], [address] MCHC (RBC) [Mass/Vol] 30.3 g/dL Low 32-36 [facility] Comment on above: Performed By: #### L 100.0100, L500.4050, L501.4020, L501.9520, L506.1000 ####[facility] [address] [place], [address] MCV (RBC) [Entitic vol] 79.1 fL Low 81-99 [facility] Comment on above: Performed By: #### L 100.0100, L500.4050, L501.4020, L501.9520, L506.1000 ####[facility] [address] [place], [address] Monocytes/100 WBC (Bld) 8.6 % Normal 0-10 [facility] Comment on above: Performed By: #### L 100.0100, L500.4050, L501.4020, L501.9520, L506.1000 ####[facility] [address] [place], [address] Neutrophils/100 WBC (Bld) 73.0 % High 47-70 [facility] Comment on above: Performed By: #### L 100.0100, L500.4050, L501.4020, L501.9520, L506.1000 ####[facility] [address] [place], [address] Nucleated RBC (Bld) [#/Vol] 0 10*3/uL Normal 0-5 [facility] Comment on above: Performed By: #### L 100.0100, L500.4050, L501.4020, L501.9520, L506.1000 ####[facility] [address] [place], [address] Platelet mean volume (Bld) [Entitic vol] 9.0 fL Normal 6.2-12.0 [facility] Comment on above: Performed By: #### L 100.0100, L500.4050, L501.4020, L501.9520, L506.1000 ####[facility] [address] [place], [address] Platelets (Bld) [#/Vol] 411 10*3/uL Normal 150-450 [facility] Comment on above: Performed By: #### L 100.0100, L500.4050, L501.4020, L501.9520, L506.1000 ####[facility] [address] [place], [address] RBC (Bld) [#/Vol] 3.92 10*6/uL Low 4.2-5.4 [facility] Comment on above: Performed By: #### L 100.0100, L500.4050, L501.4020, L501.9520, L506.1000 ####[facility] [address] [place], [address] RDW SD 52.8 fl High 35.1-43.9 [facility] Comment on above: Performed By: #### L 100.0100, L500.4050, L501.4020, L501.9520, L506.1000 ####[facility] [address] [place], [address] WBC (Bld) [#/Vol] 12.9 10*3/uL High 4.4-11.0 [facility] Comment on above: Performed By: #### L 100.0100, L500.4050, L501.4020, L501.9520, L506.1000 ####[facility] [address] [place], [address] CTA Chest W/WO Contraston 11 -07-2024 CTA Chest W/WO Contrast Normal [facility] Chest PA and Lateralon 01-10 Chest PA and Lateral Normal [facility] Comprehensive Metabolic Prof ilon 01-11-2024 Albumin [Mass/Vol] 3.0 g/dL Low 3.2-5.0 [facility] Comment on above: Order Comment: 1 Performed By: #### L 100.0100, L500.4050, L501.4020, L501.9520, L506.1000 ####[facility] [address] [place], [address] Albumin/Globulin [Mass ratio] 0.7 {ratio} Low 0.9-2.4 [facility] Comment on above: Order Comment: 1 Performed By: #### L 100.0100, L500.4050, L501.4020, L501.9520, L506.1000 ####[facility] [address] [place], [address] ALK P 103 U/L Normal 45-117 [facility] Comment on above: Order Comment: 1 Performed By: #### L 100.0100, L500.4050, L501.4020, L501.9520, L506.1000 ####[facility] [address] [place], [address] ALT [Catalytic activity/Vol] 21 U/L Normal 13-56 [facility] Comment on above: Order Comment: 1 Performed By: #### L 100.0100, L500.4050, L501.4020, L501.9520, L506.1000 ####[facility] [address] [place], [address] AST [Catalytic activity/Vol] 13 U/L Low 15-37 [facility] Comment on above: Order Comment: 1 Performed By: #### L 100.0100, L500.4050, L501.4020, L501.9520, L506.1000 ####[facility] [address] [place], [address] Bilirubin [Mass/Vol] 0.50 mg/dL Normal 0.20-1.00 [facility] Comment on above: Order Comment: 1 Result Comment: For patients on eltrombopag therapy, use of Dimension [place] TBIL is not recommended. Performed By: #### L 100.0100, L500.4050, L501.4020, L501.9520, L506.1000 ####[facility] [address] [place], [address] BUN/CRE 8.7 RATIO Low 10-20 [facility] Comment on above: Order Comment: 1 Performed By: #### L 100.0100, L500.4050, L501.4020, L501.9520, L506.1000 ####[facility] [address] [place], [address] CA,Total 9.2 mg/dL Normal 8.5-10.1 [facility] Comment on above: Order Comment: 1 Performed By: #### L 100.0100, L500.4050, L501.4020, L501.9520, L506.1000 ####[facility] [address] [place], [address] Chloride [Moles/Vol] 107 mmol/L Normal 98-107 [facility] Comment on above: Order Comment: 1 Performed By: #### L 100.0100, L500.4050, L501.4020, L501.9520, L506.1000 ####[facility] [address] [place], [address] CO2 [Moles/Vol] 25.0 mmol/L Normal 21.0-32.0 [facility] Comment on above: Order Comment: 1 Performed By: #### L 100.0100, L500.4050, L501.4020, L501.9520, L506.1000 ####[facility] [address] [place], [address] Creatinine [Mass/Vol] 0.69 mg/dL Normal 0.55-1.02 [facility] Comment on above: Order Comment: 1 Result Comment: The validity of the calculated GFR GFRAA in patients over70 years has not been determined. Clinical correlation isessential. Performed By: #### L 100.0100, L500.4050, L501.4020, L501.9520, L506.1000 ####[facility] [address] [place], [address] EST GFR - AA 110 mL/min Normal >60 [facility] Comment on above: Order Comment: 1 Result Comment: Afri can Omani GFR Calc Performed By: #### L 100.0100, L500.4050, L501.4020, L501.9520, L506.1000 ####[facility] [address] [place], [address] GAP 8 Normal 5-15 [facility] Comment on above: Order Comment: 1 Performed By: #### L 100.0100, L500.4050, L501.4020, L501.9520, L506.1000 ####[facility] [address] [place], [address] GFR/1.73 sq M.predicted among non-blacks MDRD (S/P/Bld) [Vol rate/Area] 91 mL/min/{1.73_m2} Normal >60 [facility] Comment on above: Order Comment: 1 Result Comment: Non- GFR Calc Performed By: #### L 100.0100, L500.4050, L501.4020, L501.9520, L506.1000 ####[facility] [address] [place], [address] Globulin (S) [Mass/Vol] 4.3 g/dL High 2.2-4.[address] [facility] Comment on above: Order Comment: 1 Performed By: #### L 100.0100, L500.4050, L501.4020, L501.9520, L506.1000 ####[facility] [address] [place], [address] Glucose [Mass/Vol] 165 mg/dL High 74-106 [facility] Comment on above: Order Comment: 1 Result Comment: Fast ing Glucose result greater than or equal to 126 mg/dLsuggests DIABETES MELLITUS per A.D.A. criteria. Performed By: #### L 100.0100, L500.4050, L501.4020, L501.9520, L506.1000 ####[facility] [address] [place], [address] Potassium [Moles/Vol] 3.1 mmol/L Low 3.5-5.1 [facility] Comment on above: Order Comment: 1 Performed By: #### L 100.0100, L500.4050, L501.4020, L501.9520, L506.1000 ####[facility] [address] [place], [address] Sodium [Moles/Vol] 139 mmol/L Normal 136-145 [facility] Comment on above: Order Comment: 1 Performed By: #### L 100.0100, L500.4050, L501.4020, L501.9520, L506.1000 ####[facility] [address] [place], [address] T PROT 7.3 g/dL Normal 6.4-8.2 [facility] Comment on above: Order Comment: 1 Performed By: #### L 100.0100, L500.4050, L501.4020, L501.9520, L506.1000 ####[facility] [address] [place], [address] Urea nitrogen [Mass/Vol] 6 mg/dL Low 7-18 [facility] Comment on above: Order Comment: 1 Performed By: #### L 100.0100, L500.4050, L501.4020, L501.9520, L506.1000 ####[facility] [address] [place], [address] D-Dimer Quantitative (DVT/PE )on 01-11-2024 D-DIMER QUANT 1.58 FEU/ug/m Invalid Interpretation Code 0.27-0.49 [facility] Comment on above: Result Comment: D-Di emily ELEVATED (>0.49): Additional studies and clinicalassessments are indicated to conclude diagnosis of:Deep Vein Thrombosis (DVT) or Pulmonary Embolism (PE)RESULTS CALLED TO MARKUS 01/11/24 Yovani Stone.REPORT READ BACK BY .SAME Performed By: #### L 300.8000 ####[facility] [address] [place], [place], [id number] Echo Complete W/ Contraston 01-11-2024 Echo Complete W/ Contrast Normal [facility] Emergency Department Summary on 01-11-2024 Emergency Department Summary Normal [facility] H AND P Exam - Hospitaliston 01-11-2024 H&P Exam - Hospitalist Normal [facility] L501.4020on 01-11-2024 TROPONIN-I HS 624 pg/mL Invalid Interpretation Code 3.0-54.0 [facility] Comment on above: Order Comment: 'TROP ' Serial specimen #1, #2 or #3: 2 Result Comment: Crit ical Result(s) Called at: 23:17:55 01/11/2024 by:Annalise BROWN. Results read back by same. Please Note: New Test Units and Gender Specific Reference Ranges. For more information see Policy Stat Procedure [place] High Sensitivity Troponin (TNIH) and attachments. Performed By: #### L 501.4020 ####[facility] [address] [place], [place], [id number] TROPONIN-I HS 581 pg/mL Invalid Interpretation Code 3.0-54.0 [facility] Comment on above: Order Comment: 'TROP ' Serial specimen #1, #2 or #3: 1 Result Comment: Crit ical Result(s) Called at: 18:32:20 01/11/2024 by: KYAW TO ETHAN TOLEDO. Results read back by same. Please Note: New Test Units and Gender Specific Reference Ranges. For more information see Policy Stat Procedure [place] High Sensitivity Troponin (TNIH) and attachments. Performed By: #### L 500.2500, L501.4020, L100.0100 ####[facility] [address] [place], [address] TROPONIN-I HS 570 pg/mL Invalid Interpretation Code 3.0-54.0 [facility] Comment on above: Order Comment: 1 Result Comment: Crit ical Result(s) Called at: 16:27:33 01/11/2024 by: KYAW GRECO. Results read back by same. Please Note: New Test Units and Gender Specific Reference Ranges. For more information see Policy Stat Procedure [place] High Sensitivity Troponin (TNIH) and attachments. Performed By: #### L 100.0100, L500.4050, L501.4020, L501.9520, L506.1000 ####[facility] [address] [place], [address] Thyroid Stim Hormone (TSH)on 01-11-2024 TSH 2.240 uIU/mL Normal 0.358-3.740 [facility] Comment on above: Order Comment: 1 Performed By: #### L 100.0100, L500.4050, L501.4020, L501.9520, L506.1000 ####[facility] [address] [place], [address] Vitamin D,25 Hydroxyon 01-10 Vitamin D 25-OH 17.8 ng/mL Normal [facility] Comment on above: Result Comment: Magdalena min D 25(OH) Status Range Deficiency <20 ng/mL (50nmol/L) Insufficiency 20 - 30 ng/mL (50 - 75 nmol/L) Sufficiency 30 - 100 ng/mL (75 - 250 nmol/L) Toxicity >100 ng/mL (>250 nmol/L) Performed By: #### L 100.0100, L500.4050, L501.4020, L501.9520, L506.1000 ####[facility] [address] [place], [address] CNOVon 09-29-2023 CNOV Office Visit (AGRHUK ) JAYLIN CARROLL ([id number]) 1960 F Date Time Provider Department 09/29/23 2:20 PM ROBERT FARIAS During your visit today, we recorded the following information about you: Temperature Pulse Blood pressure Weight 98.2 degrees 105/minute 173/83 85 kg Height 1.549 m Robert Farias MD 01/20/2024 2:56 PM Addendum This note was created using NoteWriter. Subjective Jaylin Carroll is a 63 year old female. I am good Back tweaked 2 week ago Was in [facility] Not sure what happened Then [address] worse Given diff muscle relaxer and now scan tolerate Yesterday was not able to move Flared back up No pain else Naproxen bid all the time Review of Systems Objective BP 173/83 (BP Site: Left Arm, BP Position: Sitting) Pulse 105 Temp 36.8 ?C (98.2 ?F) Ht 154.9 cm (5' 1) Wt 85 kg (187 lb 4.8 oz) BMI 35.39 kg/m? Physical Exam Vitals reviewed. Constitutional: General: She is not in acute distress. Appearance: She is not ill-appearing or toxic-appearing. Cardiovascular: Rate and Rhythm: Normal rate and regular rhythm. Heart sounds: No murmur heard. No friction rub. No gallop. Pulmonary: Effort: No respiratory distress. Breath sounds: Normal breath sounds. No stridor. No wheezing or rhonchi. Abdominal: General: There is no distension. Palpations: Abdomen is soft. There is no mass. Tenderness: There is no abdominal tenderness. Hernia: No hernia is present. Musculoskeletal: Right shoulder: Normal. Left shoulder: Normal. Right elbow: Normal. Left elbow: Normal. Right wrist: Normal. Left wrist: Normal. Right hand: Normal. Left hand: Normal. Cervical back: No rigidity or tenderness. Thoracic back: Normal. Lumbar back: Normal. Right hip: Normal. Left hip: Normal. Right knee: Normal. Left knee: Normal. Right lower leg: No edema. Left lower leg: No edema. Right ankle: Normal. Left ankle: Normal. Right foot: Normal. Left foot: Normal. Comments: Decreased range of motion Pain rt side spasm Lymphadenopathy: Cervical: No cervical adenopathy. Skin: Findings: No rash. 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 Mendes [place] [facility] [place] [facility] : 01/2020 last visit ( record reviewed and scanned) ( 2 miscarriages ,no DVT no Raynaud's Phenomenon , no serositis , no photosensitivity ) (sun burn easy ))))) TREATMENT Enbrel positive response 12/19 to 05/20 stopped insurance issue. OFF Simponi 2017 excellent response allergic reaction OFF Sulfa allergy : severe GI upset, no rash no angioedema OFF plaquenil 200 mg bid ( 2014 ) 06/2020 plaquenil 200 mg . (optha pending ) MTX 25 mg ( 5 am 5 pm ) ( started ) 06/19/2020 MTX 8 pill weekly . Renflexis 04/24 excellent response, 5mg/kg ( 7 week ) (02/2020 last infusion) 06/19/2020 resumed ( missed result of change in location ) insurance covering 02/24 fully covered next 02/26/2410/25 10.04/29 remission . Optha pending, ( working mon to Monday 5 pm ) wants some one open on sat, get labs Drug and disease monitoring 11/2019 wbc 3900 low cbc cmp normal 05/19/2020 cbc 4000 wbc cmp normal, chol 171 ldl 100 trig 63, HLD 58 08/14/2020 cbc hg 11.4 low cmp normal esr 2 mm 12/03/2020 esr 5 cmp cbc normal 07/25 cmp glu 156, cbc diff , ESR 2 mm. 11/25 esr 2 cmp cbc normal 05/20/22 cmp cbc normal esr 2 10/14/22 cbc diff cmp esr 2 mm 06/27 cbc cmp normal 09/22/23 cbc cmp normal Anemia 2023 9.4/30.9 low (( not on NSAID ) hicks next visit . 02/21 Vit D 39 .11/2019 Vit D 41. 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 Knee OA bilateral : observe. 07/25 Toe pain 07/16/21 ( compression stocking ) 07/16/21 Right foot fx : 2019 pain off and on ( uses tennis shoe with good results ) Diabetes Mellitus Type II HTN Allergic Rhinitis and Allergic Conjunctivitis Fall allergy ( skin testing done past negative ) Asthma No atopic dermatitis 01/08/2021 Osteopenia 02/21 DXA -2.1 hip neck -1.9 total hip ( SC ) 03/28 DXA : L1, L2, L3 BMD is 0.91 g/cm2 -2.2 Right hip BMD is 0.89 -0.9 , Right femoral neck BMD is 0.82 g/cm2 -1.6... TT none 05/12/22 observe Pain mgt ( pain adv done ) 09/2020 Ultram 50 mg every 6 hour ( (more content not included)... Normal [facility] CBC W Auto Differential pane l (Bld)on 09-22-2023 Basophils (Bld) [#/Vol] NINF [facility] Basophils/100 WBC (Bld) 0.4 % C [facility] Differential cell count method Nom (Bld) Auto [facility] Eosinophils (Bld) [#/Vol] 0.12 10*3/uL [facility] Eosinophils/100 WBC (Bld) 2.3 % [facility] Erythrocyte distribution width (RBC) [Ratio] 17.6 % High 11.5 - 15.0 % [facility] Hematocrit (Bld) [Volume fraction] 37.3 % 36.0 - 46.0 % [facility] Hemoglobin (Bld) [Mass/Vol] 11.7 g/dL 11.5 - 15.5 g/dL [facility] Immature granulocytes (Bld) [#/Vol] 0.03 10*3/uL [facility] Immature granulocytes/100 WBC (Bld) 0.6 % [facility] Interpretation and review of laboratory results Abnormal [facility] Lymphocytes (Bld) [#/Vol] 1.64 10*3/uL [facility] Lymphocytes/100 WBC (Bld) 31.2 % [facility] MCH (RBC) [Entitic mass] 25.1 pg Low 26.0 - 34.0 pg [facility] MCHC (RBC) [Mass/Vol] 31.4 g/dL 30.5 - 36.0 g/dL [facility] MCV (RBC) [Entitic vol] 80.0 fL 80.0 - 100.0 fL [facility] Monocytes (Bld) [#/Vol] 0.49 10*3/uL [facility] Monocytes/100 WBC (Bld) 9.3 % C [facility] Neutrophils (Bld) [#/Vol] 2.95 10*3/uL [facility] Neutrophils/100 WBC (Bld) 56.2 % [facility] Nucleated RBC (Bld) [#/Vol] [facility] Nucleated RBC/100 WBC (Bld) [Ratio] [facility] Platelet mean volume (Bld) [Entitic vol] 9.3 fL 9.0 - 12.7 fL [facility] Platelets (Bld) [#/Vol] 260 10*3/uL [facility] RBC (Bld) [#/Vol] 4.66 10*6/uL 3.90 - 5.2 0 m/uL [facility] WBC (Bld) [#/Vol] 5.25 10*3/uL [facility] Basophils (Bld) [#/Vol] 10*3/uL Normal <0.11 A [facility] Comment on above: Order Comment: Speci men Type: BLOOD SPECIMEN Ordering Facility: Address: [address] [place] [address] Performed By: #### 5 7021-8 #### [facility] CLIA [id number] [address] [place] [address] [place] Basophils/100 WBC (Bld) 0.4 % Normal A [facility] Comment on above: Order Comment: Speci men Type: BLOOD SPECIMEN Ordering Facility: Address: [address] [place] [address] Performed By: #### 5 7021-8 #### [facility] CLIA [id number] [address] [place] [address] [place] Differential cell count method Nom (Bld) Auto Normal [facility] Comment on above: Order Comment: Speci men Type: BLOOD SPECIMEN Ordering Facility: Address: [address] [place] [address] Performed By: #### 5 7021-8 #### [facility] CLIA [id number] [address] [place] [address] [place] Eosinophils (Bld) [#/Vol] 0.12 10*3/uL Normal <0.46 [facility] Comment on above: Order Comment: Speci men Type: BLOOD SPECIMEN Ordering Facility: Address: [address] [place] [address] Performed By: #### 5 7021-8 #### [facility] CLIA [id number] [address] [place] [address] [place] Eosinophils/100 WBC (Bld) 2.3 % Normal [facility] Comment on above: Order Comment: Speci men Type: BLOOD SPECIMEN Ordering Facility: Address: [address] [place] [address] Performed By: #### 5 7021-8 #### [facility] CLIA [id number] [address] [place] [address] [place] Erythrocyte distribution width (RBC) [Ratio] 17.6 % High 11.5-15.0 [facility] Comment on above: Order Comment: Speci men Type: BLOOD SPECIMEN Ordering Facility: Address: [address] [place] [address] Performed By: #### 5 7021-8 #### [facility] CLIA [id number] [address] [place] [address] [place] Hematocrit (Bld) [Volume fraction] 37.3 % Normal 36.0-46.0 [facility] Comment on above: Order Comment: Speci men Type: BLOOD SPECIMEN Ordering Facility: Address: [address] [place] [address] Performed By: #### 5 7021-8 #### [facility] CLIA [id number] [address] [place] [address] [place] Hemoglobin (Bld) [Mass/Vol] 11.7 g/dL Normal 11.5-15.5 [facility] Comment on above: Order Comment: Speci men Type: BLOOD SPECIMEN Ordering Facility: Address: [address] [place] [address] Performed By: #### 5 7021-8 #### [facility] CLIA [id number] [address] [place] [address] [place] Immature granulocytes (Bld) [#/Vol] 0.03 10*3/uL Normal <0.10 [facility] Comment on above: Order Comment: Speci men Type: BLOOD SPECIMEN Ordering Facility: Address: [address] [place] [address] Performed By: #### 5 7021-8 #### [facility] CLIA [id number] [address] [place] [address] [place] Immature granulocytes/100 WBC (Bld) 0.6 % Normal [facility] Comment on above: Order Comment: Speci men Type: BLOOD SPECIMEN Ordering Facility: Address: [address] [place] [address] Performed By: #### 5 7021-8 #### [facility] CLIA [id number] [address] [place] [address] [place] Lymphocytes (Bld) [#/Vol] 1.64 10*3/uL Normal 1.00-4.00 [facility] Comment on above: Order Comment: Speci men Type: BLOOD SPECIMEN Ordering Facility: Address: [address] [place] [address] Performed By: #### 5 7021-8 #### [facility] CLIA [id number] [address] [place] [address] Lymphocytes/100 WBC (Bld) 31.2 % Normal [facility] Comment on above: Order Comment: Speci men Type: BLOOD SPECIMEN Ordering Facility: Address: [address] [place] [address] Performed By: #### 5 7021-8 #### [facility] CLIA [id number] [address] [place] [address] [place] MCH (RBC) [Entitic mass] 25.1 pg Low 26.0-34.0 [facility] Comment on above: Order Comment: Speci men Type: BLOOD SPECIMEN Ordering Facility: Address: [address] [place] [address] Performed By: #### 5 7021-8 #### [facility] CLIA [id number] [address] [place] [address] [place] MCHC (RBC) [Mass/Vol] 31.4 g/dL Normal 30.5-36.0 [facility] Comment on above: Order Comment: Speci men Type: BLOOD SPECIMEN Ordering Facility: Address: [address] [place] [address] Performed By: #### 5 7021-8 #### [facility] CLIA [id number] [address] [place] [address] [place] MCV (RBC) [Entitic vol] 80.0 fL Normal 80.0-100.0 [facility] Comment on above: Order Comment: Speci men Type: BLOOD SPECIMEN Ordering Facility: Address: [address] [place] [address] Performed By: #### 5 7021-8 #### [facility] CLIA [id number] [address] [place] [address] [place] Monocytes (Bld) [#/Vol] 0.49 10*3/uL Normal <0.87 [facility] Comment on above: Order Comment: Speci men Type: BLOOD SPECIMEN Ordering Facility: Address: [address] [place] [address] Performed By: #### 5 7021-8 #### [facility] CLIA [id number] [address] [place] [address] [place] Monocytes/100 WBC (Bld) 9.3 % Normal A [facility] Comment on above: Order Comment: Speci men Type: BLOOD SPECIMEN Ordering Facility: Address: [address] [place] [address] Performed By: #### 5 7021-8 #### [facility] CLIA [id number] [address] [place] [address] [place] Neutrophils (Bld) [#/Vol] 2.95 10*3/uL Normal 1.45-7.50 [facility] Comment on above: Order Comment: Speci men Type: BLOOD SPECIMEN Ordering Facility: Address: [address] [place] [address] Performed By: #### 5 7021-8 #### [facility] CLIA [id number] [address] [place] [address] [place] Neutrophils/100 WBC (Bld) 56.2 % Normal [facility] Comment on above: Order Comment: Speci men Type: BLOOD SPECIMEN Ordering Facility: Address: [address] [place] [address] Performed By: #### 5 7021-8 #### [facility] CLIA [id number] [address] [place] [address] [place] Nucleated RBC (Bld) [#/Vol] Normal [facility] Comment on above: Order Comment: Speci men Type: BLOOD SPECIMEN Ordering Facility: Address: [address] [place] [address] Performed By: #### 5 7021-8 #### [facility] CLIA [id number] [address] [place] [address] [place] Nucleated RBC/100 WBC (Bld) [Ratio] Normal [facility] Comment on above: Order Comment: Speci men Type: BLOOD SPECIMEN Ordering Facility: Address: [address] [place] [address] Performed By: #### 5 7021-8 #### [facility] CLIA [id number] [address] [place] [address] [place] Platelet mean volume (Bld) [Entitic vol] 9.3 fL Normal 9.0-12.7 [facility] Comment on above: Order Comment: Speci men Type: BLOOD SPECIMEN Ordering Facility: Address: [address] [place] [address] Performed By: #### 5 7021-8 #### [facility] CLIA [id number] [address] [place] [address] [place] Platelets (Bld) [#/Vol] 260 10*3/uL Normal 150-400 [facility] Comment on above: Order Comment: Speci men Type: BLOOD SPECIMEN Ordering Facility: Address: [address] [place] [address] Performed By: #### 5 7021-8 #### [facility] CLIA [id number] [address] [place] [address] [place] RBC (Bld) [#/Vol] 4.66 10*6/uL Normal 3.90-5.20 [facility] Comment on above: Order Comment: Speci men Type: BLOOD SPECIMEN Ordering Facility: Address: [address] [place] [address] Performed By: #### 5 7021-8 #### [facility] CLIA [id number] [address] [place] [address] [place] WBC (Bld) [#/Vol] 5.25 10*3/uL Normal 3.70-11.00 [facility] Comment on above: Order Comment: Speci men Type: BLOOD SPECIMEN Ordering Facility: Address: [address] [place] [address] Performed By: #### 5 7021-8 #### [facility] CLIA [id number] [facility] [place] [id number] [place] Comprehensive metabolic 2000 panelon 09-22-2023 Albumin [Mass/Vol] 4.1 g/dL 3.9 - 4.9 g/dL [facility] ALP [Catalytic activity/Vol] 73 U/L 34 - 123 U/L [facility] ALT With P-5'-P [Catalytic activity/Vol] 14 U/L 7 - 38 U/L [facility] Anion gap [Moles/Vol] 11 mmol/L 8 - 15 mmol/L [facility] AST With P-5'-P [Catalytic activity/Vol] 15 U/L 13 - 35 U/L [facility] Bilirubin [Mass/Vol] 0.2 mg/dL 0.2 - 1 .3 mg/dL [facility] Calcium [Mass/Vol] 9.2 mg/dL 8.5 - 10. 2 mg/dL [facility] Chloride [Moles/Vol] 105 mmol/L 98 - 10 7 mmol/L [facility] CO2 [Moles/Vol] 24 mmol/L 22 - 30 mmol/L [facility] Creatinine [Mass/Vol] 0.53 mg/dL Low 0.58 - 0.96 mg/dL [facility] GFR/1.73 sq M.predicted among non-blacks MDRD (S/P/Bld) [Vol rate/Area] 104 mL/min/{1.73_m2} - PINF [facility] Comment on above: Estimated Glomerular Filtration Rate (eGFR) is calculated using the 2020 CKD-EPI creatinine equation. This equation utilizes serum creatinine, sex, and age as parameters. The creatinine assay has traceable calibration to isotope dilution-mass spectrometry. Refer to KDIGO guidelines for clinical interpretation. In patients with unstable renal function, e.g. those with acute kidney injury, the eGFR may not accurately reflect actual GFR. Glucose [Mass/Vol] 136 mg/dL High 74 - 99 mg/dL [facility] Comment on above: The [place] Diab[employer] Association (ADA) provides guidance for cutoff values for fasting glucose and random glucose. The ADA defines fasting as no caloric intake for at least 8 hours. Fasting plasma glucose results between 100 to 125 mg/dL indicate increased risk for diabetes (prediabetes). Fasting plasma glucose results greater than or equal to 126 mg/dL meet the criteria for diagnosis of diabetes. In the absence of unequivocal hyperglycemia, results should be confirmed by repeat testing. In a patient with classic symptoms of hyperglycemia or hyperglycemic crisis, random plasma glucose results greater than or equal to 200 mg/dL meet the criteria for diagnosis of diabetes. Reference: Standards of Medical Care in Diabetes 2016, [place] [employer] Association. Diabetes Care. 2016.39(Suppl 1). Interpretation and review of laboratory results Abnormal [facility] Potassium [Moles/Vol] 3.9 mmol/L 3.7 - 5.1 mmol/L [facility] Protein [Mass/Vol] 6.7 g/dL 6.3 - 8.0 g/dL [facility] Sodium [Moles/Vol] 140 mmol/L 136 - 144 mmol/L [facility] Urea nitrogen [Mass/Vol] 15 mg/dL 7 - 21 mg/dL [facility] Albumin [Mass/Vol] 4.1 g/dL Normal 3.9-4.9 [facility] Comment on above: Order Comment: Speci men Type: BLOOD SPECIMENOrdering Facility: Address: [address] [place] [address] Performed By: #### 2 4323-8 ####[facility] [id number] [address] ALP [Catalytic activity/Vol] 73 U/L Normal 34-123 [facility] Comment on above: Order Comment: Speci men Type: BLOOD SPECIMENOrdering Facility: Address: [address] [place] [address] Performed By: #### 2 4323-8 ####[facility]ORYCLIA [id number] [address] [place] [facility] ALT With P-5'-P [Catalytic activity/Vol] 14 U/L Normal 7-38 [facility] Comment on above: Order Comment: Speci men Type: BLOOD SPECIMENOrdering Facility: Address: [address] [place] [address] Performed By: #### 2 4323-8 ####[facility]ORYCLIA [id number] [address] [place] Anion gap [Moles/Vol] 11 mmol/L Normal 8-15 [facility] Comment on above: Order Comment: Speci men Type: BLOOD SPECIMENOrdering Facility: Address: [address] [place] [address] Performed By: #### 2 4323-8 ####[facility]ORYCLIA [id number] [address] [place] AST With P-5'-P [Catalytic activity/Vol] 15 U/L Normal 13-35 [facility] Comment on above: Order Comment: Speci men Type: BLOOD SPECIMENOrdering Facility: Address: [address] [place] [address] Performed By: #### 2 4323-8 ####[facility]ORYCLIA [id number] [address] [place] Bilirubin [Mass/Vol] 0.2 mg/dL Normal 0.2-1.3 [facility] Comment on above: Order Comment: Speci men Type: BLOOD SPECIMENOrdering Facility: Address: [address] [place] [address] Performed By: #### 2 4323-8 ####[facility]ORYCLIA [id number] [address] [place] Calcium [Mass/Vol] 9.2 mg/dL Normal 8.5-10.2 [facility] Comment on above: Order Comment: Speci men Type: BLOOD SPECIMENOrdering Facility: Address: [address] [place] [address] Performed By: #### 2 4323-8 ####[facility]ORYCLIA [id number] [address] [place] Chloride [Moles/Vol] 105 mmol/L Normal 98-107 [facility] Comment on above: Order Comment: Speci men Type: BLOOD SPECIMENOrdering Facility: Address: [address] [place] [address] Performed By: #### 2 4323-8 ####[facility]ATORYCLIA [id number] [address] CO2 [Moles/Vol] 24 mmol/L Normal 22-30 [facility] Comment on above: Order Comment: Speci men Type: BLOOD SPECIMENOrdering Facility: Address: [address] [place] [address] Performed By: #### 2 4323-8 ####[facility]ORYCLIA [id number] [address] Creatinine [Mass/Vol] 0.53 mg/dL Low 0.58-0.96 [facility] Comment on above: Order Comment: Speci men Type: BLOOD SPECIMENOrdering Facility: Address: [address] [place] [address] Performed By: #### 2 4323-8 ####[facility]ATORYCLIA [id number] [address] Creatinine and Glomerular filtration rate.predicted panel (S/P/Bld) 104 mL/min/1.73m??? Normal >=60 [facility] Comment on above: Order Comment: Speci men Type: BLOOD SPECIMENOrdering Facility: Address: [address] [place] [address] Result Comment: Glynn mated Glomerular Filtration Rate (eGFR) is calculated using the 2020 CKD-EPI creatinine equation. This equation utilizes serum creatinine, sex, and age as parameters. The creatinine assay has traceable calibration to isotope dilution-mass spectrometry. Refer to KDIGO guidelines for clinical interpretation. In patients with unstable renal function, e.g. those with acute kidney injury, the eGFR may not accurately reflect actual GFR. Performed By: #### 2 4323-8 ####[facility]ATORYCLIA [id number] [place] [address] [place] Glucose [Mass/Vol] 136 mg/dL High 74-99 [facility] Comment on above: Order Comment: Speci men Type: BLOOD SPECIMENOrdering Facility: Address: [address] [place] [address] Result Comment: The [place] Diabetes Association (ADA) provides guidance for cutoff values for fasting glucose and random glucose. The ADA defines fasting as no caloric intake for at least 8 hours. Fasting plasma glucose results between 100 to 125 mg/dL indicate increased risk for diabetes (prediabetes). Fasting plasma glucose results greater than or equal to 126 mg/dL meet the criteria for diagnosis of diabetes. In the absence of unequivocal hyperglycemia, results should be confirmed by repeat testing. In a patient with classic symptoms of hyperglycemia or hyperglycemic crisis, random plasma glucose results greater than or equal to 200 mg/dL meet the criteria for diagnosis of diabetes. Reference: Standards of Medical Care in Diabetes 2016, [place] Diabetes Association. Diabetes Care. 2016.39(Suppl 1). Performed By: #### 2 4323-8 ####[facility]ORATORYCLIA [id number] [place] [address] [place] Potassium [Moles/Vol] 3.9 mmol/L Normal 3.7-5.1 [facility] Comment on above: Order Comment: Latonyai sheng Type: BLOOD SPECIMENOrdering Facility: Address: [address] [place] [address] Performed By: #### 2 4323-8 ####[facility]ATORYCLIA [id number] [place] [address] [place] Protein [Mass/Vol] 6.7 g/dL Normal 6.3-8.0 [facility] Comment on above: Order Comment: Speci men Type: BLOOD SPECIMENOrdering Facility: Address: [address] [place] [address] Performed By: #### 2 4323-8 ####[facility]ATORYCLIA [id number] [place] [address] [place] Sodium [Moles/Vol] 140 mmol/L Normal 136-144 [facility] Comment on above: Order Comment: Speci men Type: BLOOD SPECIMENOrdering Facility: Address: [address] [place] [address] Performed By: #### 2 4323-8 ####[facility]ATORYCLIA [id number] [address] [place] [facility] Urea nitrogen [Mass/Vol] 15 mg/dL Normal 7-21 [facility] Comment on above: Order Comment: Speci men Type: BLOOD SPECIMENOrdering Facility: Address: [address] [place] [address] Performed By: #### 2 4323-8 ####[facility]ORATORYCLIA [id number] [address] STATES OF [facility] CBC W Auto Differential pane l (Bld)on 06-16-2023 Basophils (Bld) [#/Vol] 0.03 10*3/uL <0.11 k/uL [facility] Basophils/100 WBC (Bld) 0.5 % [facility] Differential cell count method Nom (Bld) Auto [facility] Eosinophils (Bld) [#/Vol] 0.11 10*3/uL <0.46 k/uL [facility] Eosinophils/100 WBC (Bld) 1.8 % [facility] Erythrocyte distribution width (RBC) [Ratio] 20.1 % High 11.5 - 15.0 % [facility] Hematocrit (Bld) [Volume fraction] 40.9 % 36.0 - 46.0 % [facility] Hemoglobin (Bld) [Mass/Vol] 12.7 g/dL 11.5 - 15.5 g/dL [facility] Immature granulocytes (Bld) [#/Vol] <0.10 k/uL [facility] Immature granulocytes/100 WBC (Bld) 0.3 % [facility] Lymphocytes (Bld) [#/Vol] 1.83 10*3/uL 1.00 - 4.00 k/uL [facility] Lymphocytes/100 WBC (Bld) 29.9 % [facility] MCH (RBC) [Entitic mass] 25.3 pg Low 26.0 - 34.0 pg [facility] MCHC (RBC) [Mass/Vol] 31.1 g/dL 30.5 - 36.0 g/dL [facility] MCV (RBC) [Entitic vol] 81.5 fL 80.0 - 100.0 fL [facility] Monocytes (Bld) [#/Vol] 0.40 10*3/uL <0.87 k/uL [facility] Monocytes/100 WBC (Bld) 6.5 % [facility] Neutrophils (Bld) [#/Vol] 3.73 10*3/uL 1.45 - 7.50 k/uL [facility] Neutrophils/100 WBC (Bld) 61.0 % [facility] Nucleated RBC (Bld) [#/Vol] <0.01 k/uL [facility] Nucleated RBC/100 WBC (Bld) [Ratio] 0.0 /100 WBC [facility] Platelet mean volume (Bld) [Entitic vol] 10.6 fL 9.0 - 12.7 fL [facility] Platelets (Bld) [#/Vol] 244 10*3/uL 150 - 400 k/uL [facility] RBC (Bld) [#/Vol] 5.02 10*6/uL 3.90 - 5.2 0 m/uL [facility] WBC (Bld) [#/Vol] 6.12 10*3/uL 3.70 - 11. 00 k/uL [facility] Comprehensive metabolic 2000 panelon 06-16-2023 Albumin [Mass/Vol] 4.6 g/dL 3.9 - 4.9 g/dL [facility] ALP [Catalytic activity/Vol] 65 U/L 34 - 123 U/L [facility] ALT With P-5'-P [Catalytic activity/Vol] 14 U/L 7 - 38 U/L [facility] Anion gap [Moles/Vol] 10 mmol/L 9 - 18 mmol/L [facility] AST With P-5'-P [Catalytic activity/Vol] 16 U/L 13 - 35 U/L [facility] Bilirubin [Mass/Vol] 0.2 mg/dL 0.2 - 1 .3 mg/dL [facility] Calcium [Mass/Vol] 9.4 mg/dL 8.5 - 10. 2 mg/dL [facility] Chloride [Moles/Vol] 107 mmol/L High 97 - 10 5 mmol/L [facility] CO2 [Moles/Vol] 24 mmol/L 22 - 30 mmol/L [facility] Creatinine [Mass/Vol] 0.60 mg/dL 0.58 - 0.96 mg/dL [facility] Estimated Glomerular Filtration Rate 102 mL/min/1.73m >=60 mL/min/1.73m [facility] Glucose [Mass/Vol] 114 mg/dL High 74 - 99 mg/dL [facility] Potassium [Moles/Vol] 3.7 mmol/L 3.7 - 5.1 mmol/L [facility] Protein [Mass/Vol] 7.0 g/dL 6.3 - 8.0 g/dL [facility] Sodium [Moles/Vol] 141 mmol/L 136 - 144 mmol/L [facility] Urea nitrogen [Mass/Vol] 15 mg/dL 7 - 21 mg/dL [facility] CBC W Auto Differential pane l (Bld)on 01-20-2023 Basophils (Bld) [#/Vol] <0.11 k/uL [facility] Basophils/100 WBC (Bld) 0.4 % [facility] Differential cell count method Nom (Bld) Auto [facility] Eosinophils (Bld) [#/Vol] 0.10 10*3/uL <0.46 k/uL [facility] Eosinophils/100 WBC (Bld) 1.8 % [facility] Erythrocyte distribution width (RBC) [Ratio] 18.2 % High 11.5 - 15.0 % [facility] Hematocrit (Bld) [Volume fraction] 36.7 % 36.0 - 46.0 % [facility] Hemoglobin (Bld) [Mass/Vol] 11.5 g/dL 11.5 - 15.5 g/dL [facility] Immature granulocytes (Bld) [#/Vol] 0.03 10*3/uL <0.10 k/uL [facility] Immature granulocytes/100 WBC (Bld) 0.5 % [facility] Lymphocytes (Bld) [#/Vol] 1.16 10*3/uL 1.00 - 4.00 k/uL [facility] Lymphocytes/100 WBC (Bld) 21.1 % [facility] MCH (RBC) [Entitic mass] 25.1 pg Low 26.0 - 34.0 pg [facility] MCHC (RBC) [Mass/Vol] 31.3 g/dL 30.5 - 36.0 g/dL [facility] MCV (RBC) [Entitic vol] 80.1 fL 80.0 - 100.0 fL [facility] Monocytes (Bld) [#/Vol] 0.42 10*3/uL <0.87 k/uL [facility] Monocytes/100 WBC (Bld) 7.7 % [facility] Neutrophils (Bld) [#/Vol] 3.76 10*3/uL 1.45 - 7.50 k/uL [facility] Neutrophils/100 WBC (Bld) 68.5 % [facility] Nucleated RBC (Bld) [#/Vol] <0.01 k/uL [facility] Nucleated RBC/100 WBC (Bld) [Ratio] 0.0 /100 WBC [facility] Platelet mean volume (Bld) [Entitic vol] 9.5 fL 9.0 - 12.7 fL [facility] Platelets (Bld) [#/Vol] 229 10*3/uL 150 - 400 k/uL [facility] RBC (Bld) [#/Vol] 4.58 10*6/uL 3.90 - 5.2 0 m/uL [facility] WBC (Bld) [#/Vol] 5.49 10*3/uL 3.70 - 11. 00 k/uL [facility] Comprehensive metabolic 2000 panelon 01-20-2023 Albumin [Mass/Vol] 4.5 g/dL 3.9 - 4.9 g/dL [facility] ALP [Catalytic activity/Vol] 76 U/L 34 - 123 U/L [facility] ALT With P-5'-P [Catalytic activity/Vol] 17 U/L 7 - 38 U/L [facility] Anion gap [Moles/Vol] 11 mmol/L 9 - 18 mmol/L [facility] AST With P-5'-P [Catalytic activity/Vol] 17 U/L 13 - 35 U/L [facility] Bilirubin [Mass/Vol] 0.3 mg/dL 0.2 - 1 .3 mg/dL [facility] Calcium [Mass/Vol] 9.6 mg/dL 8.5 - 10. 2 mg/dL [facility] Chloride [Moles/Vol] 106 mmol/L High 97 - 10 5 mmol/L [facility] CO2 [Moles/Vol] 23 mmol/L 22 - 30 mmol/L [facility] Creatinine [Mass/Vol] 0.61 mg/dL 0.58 - 0.96 mg/dL [facility] Estimated Glomerular Filtration Rate 101 mL/min/1.73m >=60 mL/min/1.73m [facility] Glucose [Mass/Vol] 132 mg/dL High 74 - 99 mg/dL [facility] Potassium [Moles/Vol] 3.6 mmol/L Low 3.7 - 5.1 mmol/L [facility] Protein [Mass/Vol] 7.4 g/dL 6.3 - 8.0 g/dL [facility] Sodium [Moles/Vol] 140 mmol/L 136 - 144 mmol/L [facility] Urea nitrogen [Mass/Vol] 17 mg/dL 7 - 21 mg/dL [facility] No Panel InformationOrdered By: Alisa Escobar on 12-30-2022 Thyroid Stimulating Hormone (TSH) 1.73 uIU/mL 0.358-3.74 [facility] CBC W Auto Differential pane l (Bld)on 10-14-2022 Basophils (Bld) [#/Vol] 0.03 10*3/uL <0.11 k/uL [facility] Basophils/100 WBC (Bld) 0.4 % [facility] Differential cell count method Nom (Bld) Auto [facility] Eosinophils (Bld) [#/Vol] 0.20 10*3/uL <0.46 k/uL [facility] Eosinophils/100 WBC (Bld) 2.8 % [facility] Erythrocyte distribution width (RBC) [Ratio] 17.1 % High 11.5 - 15.0 % [facility] Hematocrit (Bld) [Volume fraction] 38.7 % 36.0 - 46.0 % [facility] Hemoglobin (Bld) [Mass/Vol] 12.4 g/dL 11.5 - 15.5 g/dL [facility] Immature granulocytes (Bld) [#/Vol] 0.04 10*3/uL <0.10 k/uL [facility] Immature granulocytes/100 WBC (Bld) 0.6 % [facility] Lymphocytes (Bld) [#/Vol] 2.47 10*3/uL 1.00 - 4.00 k/uL [facility] Lymphocytes/100 WBC (Bld) 34.5 % [facility] MCH (RBC) [Entitic mass] 27.0 pg 26.0 - 34.0 pg [facility] MCHC (RBC) [Mass/Vol] 32.0 g/dL 30.5 - 36.0 g/dL [facility] MCV (RBC) [Entitic vol] 84.1 fL 80.0 - 100.0 fL [facility] Monocytes (Bld) [#/Vol] 0.48 10*3/uL <0.87 k/uL [facility] Monocytes/100 WBC (Bld) 6.7 % [facility] [#/Vol] 3.93 10*3/uL 1.45 - 7.50 k/uL [facility] Neutrophils/100 WBC (Bld) 55.0 % [facility] Nucleated RBC (Bld) [#/Vol] <0.01 k/uL [facility] Nucleated RBC/100 WBC (Bld) [Ratio] 0.0 /100 WBC [facility] Platelet mean volume (Bld) [Entitic vol] 11.2 fL 9.0 - 12.7 fL [facility] Platelets (Bld) [#/Vol] 231 10*3/uL 150 - 400 k/uL [facility] RBC (Bld) [#/Vol] 4.60 10*6/uL 3.90 - 5.2 0 m/uL [facility] WBC (Bld) [#/Vol] 7.15 10*3/uL 3.70 - 11. 00 k/uL [facility] Comprehensive metabolic 2000 panelon 10-14-2022 Albumin [Mass/Vol] 4.4 g/dL 3.9 - 4.9 g/dL [facility] ALP [Catalytic activity/Vol] 74 U/L 34 - 123 U/L [facility] ALT With P-5'-P [Catalytic activity/Vol] 10 U/L 7 - 38 U/L [facility] Anion gap [Moles/Vol] 12 mmol/L 9 - 18 mmol/L [facility] AST With P-5'-P [Catalytic activity/Vol] 20 U/L 13 - 35 U/L [facility] Bilirubin [Mass/Vol] 0.2 mg/dL 0.2 - 1 .3 mg/dL [facility] Calcium [Mass/Vol] 9.4 mg/dL 8.5 - 10. 2 mg/dL [facility] Chloride [Moles/Vol] 105 mmol/L 97 - 10 5 mmol/L [facility] CO2 [Moles/Vol] 24 mmol/L 22 - 30 mmol/L [facility] [facility] Creatinine [Mass/Vol] 0.62 mg/dL 0.58 - 0.96 mg/dL [facility] Estimated Glomerular Filtration Rate 101 mL/min/1.73m >=60 mL/min/1.73m [facility] Glucose [Mass/Vol] 155 mg/dL High 74 - 99 mg/dL [facility] Potassium [Moles/Vol] 3.8 mmol/L 3.7 - 5.1 mmol/L [facility] Protein [Mass/Vol] 6.7 g/dL 6.3 - 8.0 g/dL [facility] Sodium [Moles/Vol] 141 mmol/L 136 - 144 mmol/L [facility] Urea nitrogen [Mass/Vol] 23 mg/dL High 7 - 21 mg/dL [facility] ESR Westergren method (Bld) [Velocity]on 10-14-2022 ESR (Bld) [Velocity] 2 mm/h 0 - 20 mm/hr Cl [facility] Basophil percentageOrdered B y: Alisa Williamnger on 05-06-2022 Bilirubin [Mass/Vol] 0.40 mg/dL 0.20-1.00 [facility] Comment on above: For patients on eltr ombopag therapy, use of Dimension [place] TBIL is not recommended. Chloride [Moles/Vol] 106 mmol/L 98-107 [facility] Cholesterol [Mass/Vol] 184 mg/dL <200 [facility] Comment on above: <200 mg/dL Desirable 200-240 mg/dL Borderline >240 mg/dL High Risk Glucose [Mass/Vol] 159 mg/dL 74-106 [facility] Comment on above: Fasting Glucose resu lt greater than or equal to 126 mg/dL suggests DIABETES MELLITUS per A.D.A. criteria. Potassium [Moles/Vol] 3.5 mmol/L 3.5-5.1 [facility] Protein [Mass/Vol] 6.9 g/dL 6.4-8.2 [facility] Sodium [Moles/Vol] 142 mmol/L 136-145 [facility] Triglyceride [Mass/Vol] 95 mg/dL <[address] [facility] Comment on above: The drugs N-Acetylcy steine and Metamizole may falsely depress this assay.Serum Triglycerides Reference Interval Normal <150 mg/dL Borderline high 150 - 199 mg/dL High 200 - 499 mg/dL Very High > or = 500 mg/dL Laboratory - Chemistry and C hemistry - challengeOrdered By: Alisa Escobar on 05-06-2022 ALP [Catalytic activity/Vol] 72 U/L 45-117 [facility] ALT [Catalytic activity/Vol] 21 U/L 13-56 [facility] CO2 [Moles/Vol] 29.0 mmol/L 21.0-32.0 [facility] Globulin (S) [Mass/Vol] 2.8 g/dL 2.2-4.[address] [facility] Urea nitrogen/Creatinine [Mass ratio] 28.4 mg/mg 10-20 [facility] No Panel InformationOrdered By: Alisa Escobar on 05-06-2022 Estimated GFR (MDRD) Amer 108 mL/min >60 [facility] Comment on above: GFR Calc Estimated GFR (MDRD) Non-Af Amer 90 mL/min >60 [facility] Comment on above: Non- GFR Calc Thyroid Stimulating Hormone (TSH) 3.72 uIU/mL 0.358-3.74 [facility] Serum or plasma albumin aminta urement (mass/volume)Ordered By: Alisa Escobar on 05-06-2022 Albumin [Mass/Vol] 4.1 g/dL 3.2-5.0 [facility] Serum or plasma albumin/glob ulin mass ratioOrdered By: Alisa Escobar on 05-06-2022 Albumin/Globulin [Mass ratio] 1.5 {ratio} 0.9-2.4 [facility] Serum or plasma calcium aminta urement (mass/volume)Ordered By: Alisa Escobar on 05-06-2022 Calcium [Mass/Vol] 9.0 mg/dL 8.5-10.1 [facility] Serum or plasma cholesterol in HDL measurement (mass/volume)Ordered By: Alisa Escobar on 05-06-2022 Cholesterol in HDL [Mass/Vol] 50 mg/dL >40 [facility] Comment on above: The drugs N-Acetylcy steine and Metamizole may falsely depress this assay. Reference Range HDL <40 mg/dL Low HDL Cholesterol HDL >or= 60 mg/dL High HDL Cholesterol Serum or plasma cholesterol in VLDL measurement (mass/volume)Ordered By: Alisa Escobar on 05-06-2022 Cholesterol in VLDL [Mass/Vol] 19 mg/dL 5-40 [facility] Serum or plasma creatinine m easurement (mass/volume)Ordered By: Alisa Escobar on 05-06-2022 Creatinine [Mass/Vol] 0.70 mg/dL 0.55-1.02 [facility] Comment on above: The validity of the calculated GFR & GFRAA in patients over 70 years has not been determined. Clinical correlation is essential. Serum or plasma low density lipoprotein (LDL) cholesterol measurement (mass/volume)Ordered By: Alisa Escobar on 05-06-2022 Cholesterol in LDL [Mass/Vol] 115 mg/dL 0-130 [facility] Serum or plasma urea nitroge n measurement (mass/volume)Ordered By: Alisa Escobar on 05-06-2022 Urea nitrogen [Mass/Vol] 20 mg/dL 7-18 [facility] Thin prep Papanicolaou smear with manual screeningOrdered By: Alisa Escobar on 05-06-2022 Thin prep Papanicolaou smear with manual screening 17 U/L 15-37 [facility] Thin prep Papanicolaou smear with manual screening 7 5-15 [facility] Thin prep Papanicolaou smear with manual screening 20.2 mg/L NO RANGE EST. [facility] Whole blood hemoglobin A1c/t otal hemoglobin ratio (mass fraction)Ordered By: Alisa Escobar on 05-06-2022 HbA1c (Bld) [Mass fraction] 6.4 % 3.8-5.6 [facility] Comment on above: Normal < 5.7 % Predi abetic 5.7 - 6.4 % Diabetic >or= 6.5 % Please note range changes. CBC panel Auto (Bld)on 03-31 Erythrocyte distribution width (RBC) [Ratio] 18.4 % High 11.5 - 15.0 % [facility] Hematocrit (Bld) [Volume fraction] 37.9 % 36.0 - 46.0 % [facility] Hemoglobin (Bld) [Mass/Vol] 12.1 g/dL 11.5 - 15.5 g/dL [facility] MCH (RBC) [Entitic mass] 26.9 pg 26.0 - 34.0 pg [facility] MCHC (RBC) [Mass/Vol] 31.9 g/dL 30.5 - 36.0 g/dL [facility] MCV (RBC) [Entitic vol] 84.2 fL 80.0 - 100.0 fL [facility] Nucleated RBC (Bld) [#/Vol] <0.01 k/uL [facility] Platelet mean volume (Bld) [Entitic vol] 11.8 fL 9.0 - 12.7 fL [facility] Platelets (Bld) [#/Vol] 192 10*3/uL 150 - 400 k/uL [facility] RBC (Bld) [#/Vol] 4.50 10*6/uL 3.90 - 5.2 0 m/uL [facility] WBC (Bld) [#/Vol] 4.63 10*3/uL 3.70 - 11. 00 k/uL [facility] Comprehensive metabolic 2000 panelon 03-31-2022 Albumin [Mass/Vol] 4.3 g/dL 3.9 - 4.9 g/dL [facility] ALP [Catalytic activity/Vol] 80 U/L 34 - 123 U/L [facility] ALT With P-5'-P [Catalytic activity/Vol] 18 U/L 7 - 38 U/L [facility] Anion gap [Moles/Vol] 10 mmol/L 9 - 18 mmol/L [facility] AST With P-5'-P [Catalytic activity/Vol] 21 U/L 13 - 35 U/L [facility] Bilirubin [Mass/Vol] 0.3 mg/dL 0.2 - 1 .3 mg/dL [facility] Calcium [Mass/Vol] 9.1 mg/dL 8.5 - 10. 2 mg/dL [facility] Chloride [Moles/Vol] 106 mmol/L High 97 - 10 5 mmol/L [facility] CO2 [Moles/Vol] 25 mmol/L 22 - 30 mmol/L [facility] Creatinine [Mass/Vol] 0.61 mg/dL 0.58 - 0.96 mg/dL [facility] Estimated Glomerular Filtration Rate 102 mL/min/1.73m >=60 mL/min/1.73m [facility] Glucose [Mass/Vol] 222 mg/dL High 74 - 99 mg/dL [facility] Potassium [Moles/Vol] 3.5 mmol/L Low 3.7 - 5.1 mmol/L [facility] Protein [Mass/Vol] 6.6 g/dL 6.3 - 8.0 g/dL [facility] Sodium [Moles/Vol] 141 mmol/L 136 - 144 mmol/L [facility] Urea nitrogen [Mass/Vol] 10 mg/dL 7 - 21 mg/dL [facility] DXA-AXIAL SKELETONon 023 [facility] CBC panel Auto (Bld)on 11-19 Erythrocyte distribution width (RBC) [Ratio] 17.4 % High 11.5 - 15.0 % [facility] Hematocrit (Bld) [Volume fraction] 38.6 % 36.0 - 46.0 % [facility] Hemoglobin (Bld) [Mass/Vol] 12.3 g/dL 11.5 - 15.5 g/dL [facility] MCH (RBC) [Entitic mass] 26.3 pg 26.0 - 34.0 pg [facility] MCHC (RBC) [Mass/Vol] 31.9 g/dL 30.5 - 36.0 g/dL [facility] MCV (RBC) [Entitic vol] 82.5 fL 80.0 - 100.0 fL [facility] Nucleated RBC (Bld) [#/Vol] <0.01 k/uL [facility] Platelet mean volume (Bld) [Entitic vol] 10.7 fL 9.0 - 12.7 fL [facility] Platelets (Bld) [#/Vol] 219 10*3/uL 150 - 400 k/uL [facility] RBC (Bld) [#/Vol] 4.68 10*6/uL 3.90 - 5.2 0 m/uL [facility] WBC (Bld) [#/Vol] 4.99 10*3/uL 3.70 - 11. 00 k/uL [facility] Comprehensive metabolic 2000 panelon 11-19-2021 Albumin [Mass/Vol] 4.6 g/dL 3.9 - 4.9 g/dL [facility] ALP [Catalytic activity/Vol] 61 U/L 34 - 123 U/L [facility] ALT With P-5'-P [Catalytic activity/Vol] 25 U/L 7 - 38 U/L [facility] Anion gap [Moles/Vol] 12 mmol/L 9 - 18 mmol/L [facility] AST With P-5'-P [Catalytic activity/Vol] 22 U/L 13 - 35 U/L [facility] Bilirubin [Mass/Vol] 0.4 mg/dL 0.2 - 1 .3 mg/dL [facility] Calcium [Mass/Vol] 8.9 mg/dL 8.5 - 10. 2 mg/dL [facility] Chloride [Moles/Vol] 105 mmol/L 97 - 10 5 mmol/L [facility] CO2 [Moles/Vol] 24 mmol/L 22 - 30 mmol/L [facility] Creatinine [Mass/Vol] 0.58 mg/dL 0.58 - 0.96 mg/dL [facility] Estimated Glomerular Filtration Rate 103 mL/min/1.73m >=60 mL/min/1.73m [facility] Glucose [Mass/Vol] 139 mg/dL High 74 - 99 mg/dL [facility] Potassium [Moles/Vol] 3.7 mmol/L 3.7 - 5.1 mmol/L [facility] Protein [Mass/Vol] 6.7 g/dL 6.3 - 8.0 g/dL [facility] Sodium [Moles/Vol] 141 mmol/L 136 - 144 mmol/L [facility] Urea nitrogen [Mass/Vol] 14 mg/dL 7 - 21 mg/dL [facility] CBC W Auto Differential pane l (Bld)on 09-16-2021 Basophils (Bld) [#/Vol] 0.03 10*3/uL Normal <0.11 [facility] Comment on above: Order Comment: Speci men Type: BLOOD SPECIMEN Ordering Facility: Address: [address] [place] [address] Performed By: #### 5 7021-8 #### [facility] CLIA [id number] [address] [place] [address] [facility] Basophils/100 WBC (Bld) 0.5 % Normal [facility] Comment on above: Order Comment: Speci men Type: BLOOD SPECIMEN Ordering Facility: Address: [address] [place], [place] [id number] Performed By: #### 5 7021-8 #### [facility] CLIA [id number] [address] [place] [address] [place] Differential cell count method Nom (Bld) Auto Normal [facility] Comment on above: Order Comment: Speci men Type: BLOOD SPECIMEN Ordering Facility: Address: [address] [place], [place] [id number] Performed By: #### 5 7021-8 #### [facility] CLIA [id number] [address] [place] [address] [place] Eosinophils (Bld) [#/Vol] 0.20 10*3/uL Normal <0.46 [facility] Comment on above: Order Comment: Speci men Type: BLOOD SPECIMEN Ordering Facility: Address: [address] [place], [place] [id number] Performed By: #### 5 7021-8 #### [facility] CLIA [id number] [address] [place] [address] [place] Eosinophils/100 WBC (Bld) 3.0 % Normal [facility] Comment on above: Order Comment: Speci men Type: BLOOD SPECIMEN Ordering Facility: Address: [address] [place], [place] [id number] Performed By: #### 5 7021-8 #### [facility] CLIA [id number] [address] [place] [address] [place] Erythrocyte distribution width (RBC) [Ratio] 18.0 % High 11.5-15.0 [facility] Comment on above: Order Comment: Speci men Type: BLOOD SPECIMEN Ordering Facility: Address: [address] [place], [place] [id number] Performed By: #### 5 7021-8 #### [facility] CLIA [id number] [address] [place] [address] [place] Hematocrit (Bld) [Volume fraction] 40.2 % Normal 36.0-46.0 [facility] Comment on above: Order Comment: Speci men Type: BLOOD SPECIMEN Ordering Facility: Address: [address] [place] [address] Performed By: #### 5 7021-8 #### [facility] CLIA [id number] [address] [place] [address] [place] Hemoglobin (Bld) [Mass/Vol] 12.8 g/dL Normal 11.5-15.5 [facility] Comment on above: Order Comment: Speci men Type: BLOOD SPECIMEN Ordering Facility: Address: [address] [place] [address] Performed By: #### 5 7021-8 #### [facility] CLIA [id number] [address] [place] [address] OF [facility] IMMATURE GRAN % 0.5 % Normal [facility] Comment on above: Order Comment: Speci men Type: BLOOD SPECIMEN Ordering Facility: Address: [address] [place] [address] Performed By: #### 5 7021-8 #### [facility] CLIA [id number] [address] [place] [address] [place] IMMATURE GRAN ABS 0.03 k/uL Normal <0.10 [facility] Comment on above: Order Comment: Speci men Type: BLOOD SPECIMEN Ordering Facility: Address: [address] [place], [place] [id number] Performed By: #### 5 7021-8 #### [facility] CLIA [id number] [address] [place] [address] [place] Lymphocytes (Bld) [#/Vol] 2.34 10*3/uL Normal 1.00-4.00 [facility] Comment on above: Order Comment: Speci men Type: BLOOD SPECIMEN Ordering Facility: Address: [address] [place], [place] [id number] Performed By: #### 5 7021-8 #### [facility] CLIA [id number] [address] [place] [address] [place] Lymphocytes/100 WBC (Bld) 35.6 % Normal [facility] Comment on above: Order Comment: Speci men Type: BLOOD SPECIMEN Ordering Facility: Address: [address] [place] [address] Performed By: #### 5 7021-8 #### [facility] CLIA [id number] [address] [place] [address] [place] MCH (RBC) [Entitic mass] 26.1 pg Normal 26.0-34.0 [facility] Comment on above: Order Comment: Speci men Type: BLOOD SPECIMEN Ordering Facility: Address: [address] [place], [place] [id number] Performed By: #### 5 7021-8 #### [facility] CLIA [id number] [address] [place] [address] [place] MCHC (RBC) [Mass/Vol] 31.8 g/dL Normal 30.5-36.0 [facility] Comment on above: Order Comment: Speci men Type: BLOOD SPECIMEN Ordering Facility: Address: [address] [place], [place] [id number] Performed By: #### 5 7021-8 #### [facility] CLIA [id number] [address] [place] [address] [place] MCV (RBC) [Entitic vol] 82.0 fL Normal 80.0-100.[address] [facility] Comment on above: Order Comment: Speci men Type: BLOOD SPECIMEN Ordering Facility: Address: [address] [place], [place] [id number] Performed By: #### 5 7021-8 #### [facility] CLIA [id number] [address] [place] [address] [place] Monocytes (Bld) [#/Vol] 0.54 10*3/uL Normal <0.87 [facility] Comment on above: Order Comment: Speci men Type: BLOOD SPECIMEN Ordering Facility: Address: [address] [place], [place] [id number] Performed By: #### 5 7021-8 #### [facility] CLIA [id number] [address] [place] [address] [place] Monocytes/100 WBC (Bld) 8.2 % Normal [facility] Comment on above: Order Comment: Speci men Type: BLOOD SPECIMEN Ordering Facility: Address: [address] [place], [place] [id number] Performed By: #### 5 7021-8 #### [facility] CLIA [id number] [address] [place] [address] [place] Neutrophils (Bld) [#/Vol] 3.43 10*3/uL Normal 1.45-7.50 [facility] Comment on above: Order Comment: Speci men Type: BLOOD SPECIMEN Ordering Facility: Address: [address] [place], [place] [id number] Performed By: #### 5 7021-8 #### [facility] CLIA [id number] [address] [place] [address] [place] Neutrophils/100 WBC (Bld) 52.2 % Normal [facility] Comment on above: Order Comment: Speci men Type: BLOOD SPECIMEN Ordering Facility: Address: [address] [place], [place] [id number] Performed By: #### 5 7021-8 #### [facility] CLIA [id number] [address] [place] [address] [place] Nucleated RBC (Bld) [#/Vol] 10*3/uL Normal <0.01 [facility] Comment on above: Order Comment: Speci men Type: BLOOD SPECIMEN Ordering Facility: Address: [address] [place], [place] [id number] Performed By: #### 5 7021-8 #### [facility] CLIA [id number] [address] [place] [address] [place] Nucleated RBC/100 WBC (Bld) [Ratio] 0.0 /100 WBC Normal [facility] Comment on above: Order Comment: Speci men Type: BLOOD SPECIMEN Ordering Facility: Address: [address] [place], [place] [id number] Performed By: #### 5 7021-8 #### [facility] CLIA [id number] [address] [place] [address] [place] Platelet mean volume (Bld) [Entitic vol] 10.7 fL Normal 9.0-12.7 [facility] Comment on above: Order Comment: Speci men Type: BLOOD SPECIMEN Ordering Facility: Address: [address] [place], [place] [id number] Performed By: #### 5 7021-8 #### [facility] CLIA [id number] [address] [place] [address] [place] Platelets (Bld) [#/Vol] 243 10*3/uL Normal 150-400 [facility] Comment on above: Order Comment: Speci men Type: BLOOD SPECIMEN Ordering Facility: Address: [address] [place], [place] [id number] Performed By: #### 5 7021-8 #### [facility] CLIA [id number] [address] [place] [address] [place] RBC (Bld) [#/Vol] 4.90 10*6/uL Normal 3.90-5.20 [facility] Comment on above: Order Comment: Speci men Type: BLOOD SPECIMEN Ordering Facility: Address: [address] [place] [address] Performed By: #### 5 7021-8 #### [facility] CLIA [id number] [address] [place] [address] [place] WBC (Bld) [#/Vol] 6.57 10*3/uL Normal 3.70-11.00 [facility] Comment on above: Order Comment: Speci men Type: BLOOD SPECIMEN Ordering Facility: Address: [address] [place] [address] Performed By: #### 5 7021-8 #### [facility] CLIA [id number] [address] [place] [address] [place] Vital Signs Date Time Vital Sign Value Performing Clinician Facility 07-30-2024 06:42-0400 Body mass index (BMI) [Ratio] 34.2 kg/m2 Paul Greco MD Work Phone: [facility] 07-30-2024 06:42-0400 Body weight 84.82 kg Paul Greco MD Work Phone: [facility] 07-30-2024 06:42-0400 Diastolic blood pressure 84 mm[Hg] Paul Greco MD Work Phone: [facility] 07-30-2024 06:42-0400 Heart rate 74 /min Paul Greco MD Work Phone: [facility] 07-30-2024 06:42-0400 Respiratory rate 18 /min Paul Greco MD Work Phone: [facility] 07-30-2024 06:42-0400 SaO2% (BldA) [Mass fraction] 95 % Paul Greco MD Work Phone: [facility] 07-30-2024 06:42-0400 Systolic blood pressure 125 mm[Hg] Paul Greco MD Work Phone: [facility] 07-25-2024 22:24-0400 Body temperature 97.8 [degF] Paul Greco MD Work Phone: [facility] 07-25-2024 22:24-0400 Diastolic blood pressure 66 mm[Hg] Paul Greco MD Work Phone: [facility] 07-25-2024 22:24-0400 Heart rate 99 /min Paul Greco MD Work Phone: [facility] 07-25-2024 22:24-0400 Respiratory rate 18 /min Paul Greco MD Work Phone: [phone])[phone] [address] 07-25-2024 22:24-0400 SaO2% (BldA) [Mass fraction] 99 % Paul Greco MD Work Phone: 6(113)[phone] [place] [address] 07-25-2024 22:24-0400 Systolic blood pressure 132 mm[Hg] Paul Greco MD Work Phone: [facility] 07-25-2024 19:03-0400 Body height 157.48 cm Paul Greco MD Work Phone: [phone])[phone] [place] [address] 07-25-2024 19:03-0400 Body mass index (BMI) [Ratio] 34.7 kg/m2 Paul Greco MD Work Phone: [phone])[phone] [place] [address] 07-25-2024 19:03-0400 Body weight 86.2 kg Paul Greco MD Work Phone: [facility] 07-03-2024 22:13-0400 Body temperature 98.3 [degF] Paul Greco MD Work Phone: 1(413)[phone] [address] 07-03-2024 22:13-0400 Diastolic blood pressure 65 mm[Hg] Paul Greco MD Work Phone: [facility] 07-03-2024 22:13-0400 Heart rate 70 /min Paul Greco MD Work Phone: [facility] 07-03-2024 22:13-0400 Respiratory rate 18 /min Paul Greco MD Work Phone: [facility] 07-03-2024 22:13-0400 SaO2% (BldA) [Mass fraction] 100 % Paul Greco MD Work Phone: [facility] 07-03-2024 22:13-0400 Systolic blood pressure 142 mm[Hg] Paul Greco MD Work Phone: [facility] 07-03-2024 18:10-0400 Body mass index (BMI) [Ratio] 34.9 kg/m2 Paul Greco MD Work Phone: [facility] 07-03-2024 18:10-0400 Body weight 86.7 kg Paul Greco MD Work Phone: [facility] 06-14-2024 14:27-0400 Body height 154.9 cm Robert Farias MD Work Phone: [facility] 06-14-2024 14:27-0400 Body mass index (BMI) [Ratio] 34.12 kg/m2 Robert Farias MD Work Phone: [facility] 06-14-2024 14:27-0400 Body temperature 98.2 [degF] Robert Farias MD Work Phone: [facility] 06-14-2024 14:27-0400 Body weight 81.92 kg Robert Farias MD Work Phone: [facility] 06-14-2024 14:27-0400 Diastolic blood pressure 85 mm[Hg] Robert Farias MD Work Phone: [facility] 06-14-2024 14:27-0400 Heart rate 84 /min Robert Farias MD Work Phone: [facility] 06-14-2024 14:27-0400 Systolic blood pressure 139 mm[Hg] Robert Farias MD Work Phone: [facility] 06-03-2024 11:40-0400 Diastolic blood pressure 71 mm[Hg] [facility] 06-03-2024 11:40-0400 Heart rate 76 /min [facility] 06-03-2024 11:40-0400 SaO2% (BldA) [Mass fraction] 98 % [facility] Comment on above: RA 06-03-2024 11:40-0400 Systolic blood pressure 119 mm[Hg] [facility] 06-03-2024 11:32-0400 Body mass index (BMI) [Ratio] 33.99 kg/m2 [facility] 06-03-2024 11:32-0400 Body weight 81.6 kg [facility] 06-03-2024 11:32-0400 Respiratory rate 18 /min [facility] 05-31-2024 07:57-0400 Body mass index (BMI) [Ratio] 32.1 kg/m2 Paul Greco MD Work Phone: [facility] 05-31-2024 07:57-0400 Body weight 79.83 kg Paul Greco MD Work Phone: [facility] 05-31-2024 07:57-0400 Diastolic blood pressure 77 mm[Hg] Paul Greco MD Work Phone: [facility] 05-31-2024 07:57-0400 Heart rate 81 /min Paul Greco MD Work Phone: [facility] 05-31-2024 07:57-0400 Respiratory rate 18 /min Paul Greco MD Work Phone: [facility] 05-31-2024 07:57-0400 SaO2% (BldA) [Mass fraction] 97 % Paul Greco MD Work Phone: [facility] 05-31-2024 07:57-0400 Systolic blood pressure 110 mm[Hg] Paul Greco MD Work Phone: [facility] 05-27-2024 15:41-0400 Heart rate 86 /min Paul Greco MD Work Phone: [facility] 05-27-2024 10:00-0400 Body temperature 97.9 [degF] Paul Greco MD Work Phone: [facility] 05-27-2024 10:00-0400 Diastolic blood pressure 80 mm[Hg] Paul Greco MD Work Phone: [facility] 05-27-2024 10:00-0400 Respiratory rate 16 /min Paul Greco MD Work Phone: [facility] 05-27-2024 10:00-0400 SaO2% (BldA) [Mass fraction] 95 % Paul Greco MD Work Phone: [facility] 05-27-2024 10:00-0400 Systolic blood pressure 139 mm[Hg] Paul Greco MD Work Phone: [facility] 05-27-2024 04:13-0400 Body mass index (BMI) [Ratio] 32.5 kg/m2 Paul Greco MD Work Phone: [facility] 05-27-2024 04:13-0400 Body weight 80.64 kg Paul Greco MD Work Phone: [facility] 05-27-2024 02:30-0400 Body height 157.48 cm Paul Greco MD Work Phone: [facility] 04-15-2024 13:10-0500 Body temperature 97.7 [degF] Paul Greco MD Work Phone: [facility] 04-15-2024 13:10-0500 Diastolic blood pressure 68 mm[Hg] Paul Greco MD Work Phone: [facility] 04-15-2024 13:10-0500 Heart rate 84 /min Paul Greco MD Work Phone: [facility] 04-15-2024 13:10-0500 Respiratory rate 14 /min Paul Greco MD Work Phone: [facility] 04-15-2024 13:10-0500 SaO2% (BldA) [Mass fraction] 100 % Paul Greco MD Work Phone: [facility] 04-15-2024 13:10-0500 Systolic blood pressure 104 mm[Hg] Paul Greco MD Work Phone: [facility] 04-15-2024 11:04-0500 Body height 157.48 cm Paul Greco MD Work Phone: [facility] 04-15-2024 11:04-0500 Body mass index (BMI) [Ratio] 30.6 kg/m2 Paul Greco MD Work Phone: [facility] 04-15-2024 11:04-0500 Body weight 76 kg Paul Greco MD Work Phone: [facility] 04-11-2024 10:15-0500 Body mass index (BMI) [Ratio] 32.66 kg/m2 [facility] 04-11-2024 10:15-0500 Body temperature 96.8 [degF] [facility] 04-11-2024 10:15-0500 Body weight 78.4 kg [facility] 04-11-2024 10:15-0500 Diastolic blood pressure 81 mm[Hg] [facility] 04-11-2024 10:15-0500 Heart rate 85 /min [facility] 04-11-2024 10:15-0500 Respiratory rate 18 /min [facility] 04-11-2024 10:15-0500 SaO2% (BldA) [Mass fraction] 98 % [facility] 04-11-2024 10:15-0500 Systolic blood pressure 160 mm[Hg] [facility] 03-11-2024 04:26-0500 Body temperature 98 [degF] Paul Greco MD Work Phone: [facility] 03-11-2024 04:26-0500 Diastolic blood pressure 73 mm[Hg] Paul Greco MD Work Phone: [facility] 03-11-2024 04:26-0500 Heart rate 98 /min Paul Greco MD Work Phone: [facility] 03-11-2024 04:26-0500 Respiratory rate 17 /min Paul Greco MD Work Phone: [facility] 03-11-2024 04:26-0500 SaO2% (BldA) [Mass fraction] 93 % Paul Greco MD Work Phone: [facility] 03-11-2024 04:26-0500 Systolic blood pressure 114 mm[Hg] Paul Greco MD Work Phone: [facility] 03-10-2024 20:18-0500 Body mass index (BMI) [Ratio] 32.4 kg/m2 Paul Greco MD Work Phone: [facility] 03-10-2024 20:18-0500 Body weight 80.42 kg Paul Greco MD Work Phone: [facility] 03-06-2024 00:19-0500 Body weight 79.15 kg Paul Greco MD Work Phone: [facility] 02-29-2024 11:53-0500 Diastolic blood pressure 84 mm[Hg] [facility] 02-29-2024 11:53-0500 Heart rate 81 /min [facility] 02-29-2024 11:53-0500 Systolic blood pressure 126 mm[Hg] [facility] 02-29-2024 10:33-0500 Body mass index (BMI) [Ratio] 33.03 kg/m2 [facility] 02-29-2024 10:33-0500 Body temperature 97.3 [degF] [facility] 02-29-2024 10:33-0500 Body weight 79.3 kg [facility] 02-29-2024 10:33-0500 Respiratory rate 16 /min [facility] 02-26-2024 09:13-0500 Body mass index (BMI) [Ratio] 31.2 kg/m2 Paul Greco MD Work Phone: [facility] 02-26-2024 09:13-0500 Body weight 77.56 kg Paul Greco MD Work Phone: [facility] 02-26-2024 09:13-0500 Diastolic blood pressure 94 mm[Hg] Paul Greco MD Work Phone: [facility] 02-26-2024 09:13-0500 Heart rate 84 /min Paul Greco MD Work Phone: [facility] 02-26-2024 09:13-0500 Respiratory rate 18 /min Paul Greco MD Work Phone: [facility] 02-26-2024 09:13-0500 SaO2% (BldA) [Mass fraction] 95 % Paul Greco MD Work Phone: [facility] 02-26-2024 09:13-0500 Systolic blood pressure 132 mm[Hg] Paul Greco MD Work Phone: [facility] 02-23-2024 11:26-0500 Body weight 79.15 kg Paul Greco MD Work Phone: [facility] 02-09-2024 19:47-0500 Body temperature 99.1 [degF] Paul Greco MD Work Phone: [facility] 02-09-2024 19:47-0500 Diastolic blood pressure 95 mm[Hg] Paul Greco MD Work Phone: [facility] 02-09-2024 19:47-0500 Heart rate 111 /min Paul Greco MD Work Phone: [facility] 02-09-2024 19:47-0500 Respiratory rate 16 /min Paul Greco MD Work Phone: [facility] 02-09-2024 19:47-0500 SaO2% (BldA) [Mass fraction] 96 % Paul Greco MD Work Phone: [facility] 02-09-2024 19:47-0500 Systolic blood pressure 152 mm[Hg] Paul Greco MD Work Phone: [facility] 02-09-2024 17:09-0500 Body mass index (BMI) [Ratio] 32.8 kg/m2 Paul Greco MD Work Phone: [facility] 02-09-2024 17:09-0500 Body weight 81.5 kg Paul Greco MD Work Phone: [facility] 01-24-2024 09:04-0500 Body weight 78.92 kg Paul Greco MD Work Phone: [facility] 01-24-2024 08:42-0500 Body mass index (BMI) [Ratio] 31.8 kg/m2 Paul Greco MD Work Phone: [facility] 01-24-2024 08:42-0500 Diastolic blood pressure 90 mm[Hg] Paul Greco MD Work Phone: [facility] 01-24-2024 08:42-0500 Heart rate 104 /min Paul Greco MD Work Phone: [facility] 01-24-2024 08:42-0500 SaO2% (BldA) [Mass fraction] 95 % Paul Greco MD Work Phone: [facility] 01-24-2024 08:42-0500 Systolic blood pressure 150 mm[Hg] Paul Greco MD Work Phone: [facility] 01-18-2024 10:06-0500 Body temperature 97.3 [degF] [facility] 01-18-2024 10:06-0500 Diastolic blood pressure 94 mm[Hg] [facility] 01-18-2024 10:06-0500 Heart rate 99 /min [facility] 01-18-2024 10:06-0500 Respiratory rate 18 /min [facility] 01-18-2024 10:06-0500 SaO2% (BldA) [Mass fraction] 97 % [facility] 01-18-2024 10:06-0500 Systolic blood pressure 157 mm[Hg] [facility] 01-18-2024 08:45-0500 Body mass index (BMI) [Ratio] 33.99 kg/m2 [facility] 01-18-2024 08:45-0500 Body weight 81.6 kg [facility] 11-10-2023 10:34-0400 Body temperature 97.7 [degF] [facility] 11-10-2023 10:34-0400 Diastolic blood pressure 91 mm[Hg] [facility] 11-10-2023 10:34-0400 Heart rate 88 /min [facility] 11-10-2023 10:34-0400 Respiratory rate 18 /min [facility] 11-10-2023 10:34-0400 SaO2% (BldA) [Mass fraction] 98 % [facility] 11-10-2023 10:34-0400 Systolic blood pressure 177 mm[Hg] [facility] 11-10-2023 10:23-0400 Body mass index (BMI) [Ratio] 35.2 kg/m2 [facility] 11-10-2023 10:23-0400 Body weight 84.5 kg [facility] 09-29-2023 14:27-0400 Body height 154.9 cm Robert Farias MD Work Phone: [facility] 09-29-2023 14:27-0400 Body mass index (BMI) [Ratio] 35.39 kg/m2 Robert Farias MD Work Phone: [facility] 09-29-2023 14:27-0400 Body temperature 98.2 [degF] Robert Farias MD Work Phone: [facility] 09-29-2023 14:27-0400 Body weight 84.96 kg Robert Farias MD Work Phone: [facility] 09-29-2023 14:27-0400 Diastolic blood pressure 83 mm[Hg] Robert Farias MD Work Phone: [facility] 09-29-2023 14:27-0400 Heart rate 105 /min Robert Farias MD Work Phone: [facility] 09-29-2023 14:27-0400 Systolic blood pressure 173 mm[Hg] Robert Farias MD Work Phone: [facility] 09-22-2023 12:00-0400 Diastolic blood pressure 89 mm[Hg] [facility] 09-22-2023 12:00-0400 Heart rate 80 /min [facility] 09-22-2023 12:00-0400 Respiratory rate 16 /min [facility] 09-22-2023 12:00-0400 Systolic blood pressure 188 mm[Hg] [facility] 09-22-2023 10:27-0400 Body mass index (BMI) [Ratio] 35.31 kg/m2 [facility] 09-22-2023 10:27-0400 Body temperature 98.6 [degF] [facility] 09-22-2023 10:27-0400 Body weight 84.78 kg [facility] 09-22-2023 10:27-0400 SaO2% (BldA) [Mass fraction] 97 % [facility] 08-04-2023 10:54-0400 Body temperature 97.7 [degF] [facility] 08-04-2023 10:54-0400 Diastolic blood pressure 94 mm[Hg] [facility] 08-04-2023 10:54-0400 Heart rate 64 /min [facility] 08-04-2023 10:54-0400 Respiratory rate 18 /min [facility] 08-04-2023 10:54-0400 SaO2% (BldA) [Mass fraction] 98 % [facility] 08-04-2023 10:54-0400 Systolic blood pressure 162 mm[Hg] [facility] 08-04-2023 10:36-0400 Body mass index (BMI) [Ratio] 34.8 kg/m2 [facility] 08-04-2023 10:36-0400 Body weight 83.55 kg [facility] 06-16-2023 10:35-0400 Body temperature 98.91 [degF] [facility] 06-16-2023 10:35-0400 Diastolic blood pressure 92 mm[Hg] [facility] 06-16-2023 10:35-0400 Heart rate 79 /min [facility] 06-16-2023 10:35-0400 Respiratory rate 16 /min [facility] 06-16-2023 10:35-0400 Systolic blood pressure 160 mm[Hg] [facility] 06-16-2023 10:28-0400 Body weight 83.37 kg [facility] 04-28-2023 10:59-0500 Body temperature 97.3 [degF] Chair [place] Work Phone: [facility] 04-28-2023 10:59-0500 Diastolic blood pressure 90 mm[Hg] Chair [place] Work Phone: [facility] 04-28-2023 10:59-0500 Heart rate 61 /min Chair [place] Work Phone: [facility] 04-28-2023 10:59-0500 Respiratory rate 18 /min Chair [place] Work Phone: [facility] 04-28-2023 10:59-0500 Systolic blood pressure 168 mm[Hg] Chair [place] Work Phone: [facility] 04-28-2023 10:31-0500 Body weight 83.87 kg Chair [place] Work Phone: [facility] 01-20-2023 12:30-0500 Diastolic blood pressure 80 mm[Hg] [facility] 01-20-2023 12:30-0500 Heart rate 82 /min [facility] 01-20-2023 12:30-0500 Systolic blood pressure 168 mm[Hg] [facility] 01-20-2023 10:40-0500 Body temperature 97.9 [degF] [facility] 01-20-2023 10:40-0500 Body weight 83.51 kg [facility] 01-20-2023 10:40-0500 Respiratory rate 20 /min [facility] 12-02-2022 13:06-0400 Diastolic blood pressure 82 mm[Hg] Chair [place] Work Phone: [facility] 12-02-2022 13:06-0400 Heart rate 89 /min Chair [place] Work Phone: [facility] 12-02-2022 13:06-0400 Respiratory rate 18 /min Chair [place] Work Phone: [facility] 12-02-2022 13:06-0400 SaO2% (BldA) [Mass fraction] 97 % Chair [place] Work Phone: [facility] 12-02-2022 13:06-0400 Systolic blood pressure 149 mm[Hg] Chair [place] Work Phone: [facility] 12-02-2022 11:42-0400 Body temperature 97.9 [degF] Chair [place] Work Phone: [facility] 12-02-2022 11:42-0400 Body weight 85.91 kg Chair [place] Work Phone: [facility] 10-14-2022 10:24-0400 Body temperature 98.1 [degF] [facility] 10-14-2022 10:24-0400 Body weight 89.22 kg [facility] 10-14-2022 10:24-0400 Diastolic blood pressure 90 mm[Hg] [facility] 10-14-2022 10:24-0400 Heart rate 72 /min [facility] 10-14-2022 10:24-0400 Respiratory rate 20 /min [facility] 10-14-2022 10:24-0400 Systolic blood pressure 166 mm[Hg] [facility] 08-26-2022 12:03-0400 Diastolic blood pressure 80 mm[Hg] Chair [place] Work Phone: [facility] 08-26-2022 12:03-0400 Heart rate 69 /min Chair [place] Work Phone: [facility] 08-26-2022 12:03-0400 Respiratory rate 18 /min Chair [place] Work Phone: [facility] 08-26-2022 12:03-0400 Systolic blood pressure 154 mm[Hg] Chair [place] Work Phone: [facility] 08-26-2022 10:30-0400 Body temperature 97.5 [degF] Chair [place] Work Phone: [facility] 08-26-2022 10:30-0400 Body weight 88.27 kg Chair [place] Work Phone: [facility] 08-26-2022 10:30-0400 SaO2% (BldA) [Mass fraction] 98 % Chair [place] Work Phone: [facility] 07-08-2022 09:37-0400 Body weight 89.09 kg Chair [place] Work Phone: [facility] 05-20-2022 09:48-0400 Diastolic blood pressure 85 mm[Hg] [facility] 05-20-2022 09:48-0400 Heart rate 74 /min [facility] 05-20-2022 09:48-0400 Respiratory rate 18 /min [facility] 05-20-2022 09:48-0400 Systolic blood pressure 180 mm[Hg] [facility] 05-20-2022 09:37-0400 Body weight 90.72 kg [facility] 03-31-2022 10:38-0500 Body temperature 98.1 [degF] [facility] 03-31-2022 10:38-0500 Body weight 89.5 kg [facility] 03-31-2022 10:38-0500 Diastolic blood pressure 79 mm[Hg] [facility] 03-31-2022 10:38-0500 Heart rate 83 /min [facility] 03-31-2022 10:38-0500 Respiratory rate 16 /min [facility] 03-31-2022 10:38-0500 Systolic blood pressure 161 mm[Hg] Chair [facility] 01-07-2022 10:07-0400 Diastolic blood pressure 83 mm[Hg] Chair [place] Work Phone: [facility] 01-07-2022 10:07-0400 Heart rate 80 /min Chair [place] Work Phone: [facility] 01-07-2022 10:07-0400 Systolic blood pressure 158 mm[Hg] Chair [place] Work Phone: [facility] 01-07-2022 10:06-0400 Body temperature 98.2 [degF] Chair [place] Work Phone: [facility] 01-07-2022 10:06-0400 Respiratory rate 16 /min Chair [place] Work Phone: [facility] 01-07-2022 10:00-0400 Body weight 89.63 kg Chair [place] Work Phone: [facility] 11-19-2021 11:46-0400 Diastolic blood pressure 73 mm[Hg] Chair [place] Work Phone: [facility] 11-19-2021 11:46-0400 Heart rate 72 /min Chair [place] Work Phone: [facility] 11-19-2021 11:46-0400 Respiratory rate 18 /min Chair [place] Work Phone: [facility] 11-19-2021 11:46-0400 Systolic blood pressure 142 mm[Hg] Chair [place] Work Phone: [facility] 11-19-2021 10:40-0400 Body temperature 97.5 [degF] Chair [place] Work Phone: [facility] 10-22-2021 14:25-0400 Body height 154.9 cm Robert Farias MD Work Phone: [facility] 10-22-2021 14:25-0400 Body temperature 98.1 [degF] Robert Farias MD Work Phone: [facility] 10-22-2021 14:25-0400 Body weight 92.67 kg Robert Farias MD Work Phone: [facility] 10-22-2021 14:25-0400 Diastolic blood pressure 97 mm[Hg] Robert Farias MD Work Phone: [facility] 10-22-2021 14:25-0400 Heart rate 84 /min Robert Farias MD Work Phone: [facility] 10-22-2021 14:25-0400 Systolic blood pressure 169 mm[Hg] Robert Farias MD Work Phone: [facility] 10-01-2021 10:07-0400 Body weight 93.44 kg [facility] 08-13-2021 10:10-0400 Body temperature 97.81 [degF] [facility] 08-13-2021 10:10-0400 Diastolic blood pressure 71 mm[Hg] [facility] 08-13-2021 10:10-0400 Heart rate 79 /min [facility] 08-13-2021 10:10-0400 Respiratory rate 16 /min [facility] 08-13-2021 10:10-0400 Systolic blood pressure 149 mm[Hg] [facility] 08-13-2021 10:08-0400 Body weight 91.99 kg [facility] 07-16-2021 15:33-0400 Body height 154.9 cm Robert Farias MD Work Phone: [facility] 07-16-2021 15:33-0400 Body temperature 98.2 [degF] Robert Farias MD Work Phone: [facility] 07-16-2021 15:33-0400 Body weight 89.81 kg Robert Farias MD Work Phone: [facility] 07-16-2021 15:33-0400 Diastolic blood pressure 108 mm[Hg] Robert Farias MD Work Phone: [facility] 07-16-2021 15:33-0400 Heart rate 86 /min Robert Farias MD Work Phone: [facility] 07-16-2021 15:33-0400 Systolic blood pressure 188 mm[Hg] Robert Farias MD Work Phone: [facility] 06-25-2021 09:30-0400 Body temperature 97.7 [degF] [facility] 06-25-2021 09:30-0400 Body weight 90.81 kg [facility] 06-25-2021 09:30-0400 Diastolic blood pressure 95 mm[Hg] [facility] 06-25-2021 09:30-0400 Heart rate 82 /min [facility] 06-25-2021 09:30-0400 Respiratory rate 20 /min [facility] 06-25-2021 09:30-0400 Systolic blood pressure 165 mm[Hg] [facility] 06-19-2020 14:10-0400 Body temperature 98.6 [degF] Robert Farias Work Phone: [facility] 06-19-2020 14:10-0400 Body weight 86.55 kg Robert Farias Work Phone: [facility] 06-19-2020 14:10-0400 Diastolic blood pressure 91 mm[Hg] Hiraprchucho Farias Work Phone: [facility] 06-19-2020 14:10-0400 Heart rate 88 /min Robert Farias Work Phone: [facility] 06-19-2020 14:10-0400 Systolic blood pressure 133 mm[Hg] Amayaerprchucho Farias Work Phone: [facility] Encounters Encounter Date Encounter Type Care Provider Facility Start: 07-30-2024 End: 07-30-2024 Patient encounter procedure Ambreen ROMERO -[facility] Work Phone: Start: 07-30-2024 End: 07-30-2024 ambulatory Paul Greco MD Work Phone: [facility] Work Phone: Start: 07-25-2024 End: 07-25-2024 Emergency department patient visit Paul Greco MD Work Phone: -Emergency Department Work Phone: Start: 07-18-2024 End: 07-18-2024 Telephone encounter Robert Farias MD Work Phone: [facility] Comment on above: RENFLEXIS - PENDING (Renflexis, [place] - PENDING [id number] [employer]Portal) Start: 07-09-2024 End: 07-09-2024 Refill Robert Farias MD Work Phone: [facility] [place] Comment on above: Refill Request Start: 07-03-2024 End: 07-03-2024 Emergency department patient visit Dr. Corey De Jesus DO -Emergency Department Work Phone: Start: 06-14-2024 End: 06-14-2024 Patient encounter procedure Robert Farias MD Work Phone: [facility] [place] Comment on above: Rheumatoid arthritis involving both hands with positive rheumatoid factor (HCC) (Primary Dx); Asymptomatic postmenopausal status; High risk medication use Start: 06-14-2024 End: 06-14-2024 ambulatory ROBERT FARIAS Facility:[facility] Start: 06-03-2024 End: 06-03-2024 ambulatory [facility] Hematology/Oncology Comment on above: Rheumatoid arthritis involving both hands with positive rheumatoid factor (HCC) (Primary Dx) Start: 05-31-2024 End: 05-31-2024 Patient encounter procedure Ana Rosa RONDON -[facility] Work Phone: Start: 05-31-2024 End: 05-31-2024 ambulatory Paul Greco Facility:[facility] Start: 05-29-2024 End: 05-29-2024 Patient encounter procedure Andressa RONDON -[facility] Work Phone: Start: 05-29-2024 End: 05-29-2024 ambulatory Paul Greco Facility:[facility] Start: 05-28-2024 End: 05-28-2024 Telephone encounter Robert Farias MD Work Phone: [facility]ology Comment on above: RENFLEXIS - PENDING (Renflexis, [place] - PENDING [id number] [facility]) Start: 05-27-2024 Non-patient / Non-visit Dr. Esparza [facility] -[facility] Start: 05-27-2024 Non-patient / Non-visit Dr. Jenelle Gaspar MD -[facility] Work Phone: Start: 05-27-2024 End: 05-27-2024 ambulatory Natalie Gaspar Facility:[facility] Start: 05-27-2024 End: 05-27-2024 Evaluation and management of inpatient Dr. Isael Baeza DO -Progressive Care Unit Work Phone: Start: 05-27-2024 End: 05-27-2024 observation encounter Paul Greco MD Work Phone: [facility] Work Phone: Start: 05-26-2024 End: 05-27-2024 Emergency department patient visit GAUTAM ADAM DO Facility:[facility] Start: 05-03-2024 End: 05-03-2024 ambulatory Paul Greco MD Work Phone: [facility] Work Phone: Start: 05-03-2024 End: 05-03-2024 Patient encounter procedure Andressa RONDON -Laboratory, Specimen Work Phone: Start: 05-03-2024 End: 05-03-2024 ambulatory Paul Greco Facility:[facility] Start: 04-30-2024 End: 04-30-2024 Patient encounter procedure Andressa RONDON -[facility] Work Phone: Start: 04-30-2024 End: 04-30-2024 ambulatory Paul Greco Facility:[facility] Start: 04-16-2024 ambulatory Jose Giancarlo Facility:[facility] Start: 04-15-2024 ambulatory Paul Angus Facility:[facility] Start: 04-15-2024 Non-patient / Non-visit Ken Mead nd DO -[facility] Start: 04-15-2024 End: 04-15-2024 Admission to same day surgery center Ken Xie -Endoscopy Work Phone: Start: 04-15-2024 End: 04-15-2024 ambulatory Chalon Angus [facility] [facility] Start: 04-13-2024 End: 06-13-2024 Follow-up encounter Robert Farias MD Work Phone: [facility] [place] Start: 04-11-2024 End: 04-11-2024 ambulatory Chair 2 [facility] Hematology/Oncology Comment on above: Rheumatoid arthritis involving both hands with positive rheumatoid factor (HCC) (Primary Dx) Start: 04-10-2024 End: 04-10-2024 Refill Robert Farias MD Work Phone: [facility] [place] Comment on above: Refill Request Start: 04-05-2024 End: 04-08-2024 Refill Robert Farias MD Work Phone: [facility] [place] Comment on above: Refill Request Start: 03-31-2024 End: 04-01-2024 Refill oRbert Farias MD Work Phone: [facility] [place] Comment on above: Refill Request Start: 03-10-2024 End: 03-11-2024 Emergency department patient visit Dr. Zurdo Polo MD -Emergency Department Work Phone: Start: 03-08-2024 End: 04-05-[address] Jose Mondragon MD -Cardiac Rehab Work Phone: Start: 03-08-2024 End: 04-05-2024 ambulatory Jose Mondragon Facility:[facility] Start: 02-29-2024 End: 02-29-2024 ambulatory Chair 2 [facility] Hematology/Oncology Comment on above: Rheumatoid arthritis involving both hands with positive rheumatoid factor (HCC) (Primary Dx) Start: 02-26-2024 End: 02-26-2024 Patient encounter procedure Ana Rosa RONDON -[facility] Work Phone: Start: 02-26-2024 End: 02-26-2024 ambulatory Paul Greco Facility:[facility] Start: 02-26-2024 End: 02-26-2024 ambulatory Ana Rosa RONDON Facility:[facility] Start: 02-21-2024 End: 03-05-2024 ambulatory Jose Mondragon Facility:[facility] Start: 02-21-2024 End: 03-05-[address] Jose Mondragon MD -Cardiac Rehab Work Phone: Start: 02-09-2024 End: 02-09-2024 Emergency department patient visit Dr. Gustabo Harris -Emergency Department Work Phone: Start: 02-09-2024 End: 02-09-[address] [facility] Start: 02-09-2024 End: 02-09-2024 ambulatory Paul Greco Facility:[facility] Start: 02-06-2024 End: 02-06-2024 Patient encounter procedure Andressa RONDON -[facility] Work Phone: Start: 02-06-2024 End: 02-06-2024 ambulatory Paul Greco Facility:[facility] Start: 02-05-2024 End: 02-05-2024 Patient encounter procedure Robert Farias MD Work Phone: [facility] [place] Comment on above: Rheumatoid arthritis involving both hands with positive rheumatoid factor (HCC) (Primary Dx); Anemia, chronic disease; Recurrent infections Start: 02-05-2024 End: 02-05-2024 Telemedicine consultation with patient Robert Farias MD Work Phone: [facility] [place] Start: 02-05-2024 End: 02-05-2024 ambulatory ROBERT FARIAS Facility:[facility] Start: 01-31-2024 End: 02-03-2024 ambulatory Jose Giancarlo Facility:[facility] Start: 01-31-2024 End: 02-03-[address] Jose Mondragon MD -Cardiac Rehab Work Phone: Start: 01-31-2024 End: 01-31-2024 Patient encounter procedure Xiang Rogers UNIT SECRETARY-C -Laboratory Work Phone: Start: 01-31-2024 End: 01-31-2024 ambulatory Xiang Rogers UNIT SECRETARY Facility:[facility] Start: 01-24-2024 End: 01-24-[address] Jose Mondragon MD -Cardiac Rehab Work Phone: Start: 01-24-2024 End: 01-24-2024 ambulatory Jose Giancarlo Facility:[facility] Start: 01-22-2024 End: 01-22-2024 Refill Robert Farias MD Work Phone: [facility] [place] Comment on above: Refill Request Start: 01-20-2024 End: 01-22-2024 Telephone encounter Robert Farias MD Work Phone: [facility] Start: 01-18-2024 End: 01-18-2024 ambulatory Chair 5 [facility] Hematology/Oncology Comment on above: Rheumatoid arthritis involving both hands with positive rheumatoid factor (HCC) (Primary Dx) Start: 01-17-2024 Non-patient / Non-visit Dr. Reinaldo Mondragon MD -[facility] Start: 01-17-2024 ambulatory Jose Giancarlo Facility:[facility] Start: 01-12-2024 ambulatory Farjesusk Belal Facility:[facility] Start: 01-11-2024 End: 01-11-2024 ambulatory Chalon Angus Facility:[facility] Start: 01-11-2024 ambulatory Natalie L White Facility :[facility] Start: 01-11-2024 End: 01-13-2024 Evaluation and management of inpatient Natalie L White Facility:[facility] Start: 01-11-2024 End: 01-11-2024 Refill Robert Farias MD Work Phone: [facility] [place] Comment on above: Refill Request Start: 01-11-2024 End: 01-11-2024 ambulatory Chalkamryn Angus Facility:[facility] Start: 11-20-2023 End: 11-21-2023 Refill Robert Farias MD Work Phone: [facility] [place] Comment on above: Refill Request Start: 11-10-2023 End: 11-10-2023 ambulatory Chair 6 [facility] Hematology/Oncology Comment on above: Rheumatoid arthritis involving both hands with positive rheumatoid factor (HCC) (Primary Dx) Start: 11-02-2023 End: 11-02-2023 Refill Robert Farias MD Work Phone: [facility] [place] Comment on above: Refill Request Start: 10-13-2023 Refill Robert darden MD Work Phone: [facility] [place] Comment on above: Refill Request Start: 10-13-2023 Refill Robert darden MD Work Phone: [facility] [place] Comment on above: Refill Request Start: 09-29-2023 End: 09-29-2023 Patient encounter procedure Robert Farias MD Work Phone: [facility] [place] Comment on above: Rheumatoid arthritis involving both hands with positive rheumatoid factor (HCC) (Primary Dx) Start: 09-29-2023 End: 09-29-2023 ambulatory ROBERT FARIAS Facility:[facility] Start: 09-22-2023 End: 09-22-2023 ambulatory Chair 3 [facility] Hematology/Oncology Comment on above: Rheumatoid arthritis involving both hands with positive rheumatoid factor (HCC) (Primary Dx) Start: 09-13-2023 Orders Only Cheyenne Garcia PA-C Work Phone: [facility] Start: 08-04-2023 End: 08-04-2023 ambulatory Chair 3 [facility] Hematology/Oncology Comment on above: Rheumatoid arthritis involving both hands with positive rheumatoid factor (HCC) (Primary Dx) Start: 08-03-2023 Telephone encounter Robert Farias MD Work Phone: [facility] Comment on above: Medication Preauthor ization ([facility] Approved [id number] [facility]/Faxed 08.04.23-08.03.24) Start: 08-02-2023 Refill Robert darden MD Work Phone: [facility] [place] Comment on above: Refill Request Start: 07-28-2023 Orders Only Robert darden MD Work Phone: [facility] [place] Start: 07-25-2023 Refill Robert darden MD Work Phone: [facility] [place] Comment on above: Refill Request Start: 06-16-2023 End: 06-16-2023 ambulatory Chair 6 [facility] Hematology/Oncology Comment on above: Rheumatoid arthritis involving both hands with positive rheumatoid factor (HCC) (Primary Dx) Start: 06-05-2023 Refill Robert darden MD Work Phone: [facility] [place] Comment on above: Refill Request Start: 05-07-2023 Refill Robert darden MD Work Phone: [facility] [place] Comment on above: Refill Request Start: 04-28-2023 End: 04-28-2023 ambulatory Chair 7 [facility] Work Phone: Hematology/Oncology Comment on above: Rheumatoid arthritis involving both hands with positive rheumatoid factor (HCC) (Primary Dx) Start: 04-24-2023 Refill Robert darden MD Work Phone: [facility] [place] Comment on above: Refill Request Start: 04-20-2023 Telephone encounter Robert Farias MD Work Phone: [facility] [place] Start: 04-17-2023 End: 04-17-2023 ambulatory Robert Farias MD Work Phone: [facility] [place] Comment on above: Rheumatoid arthritis involving both hands with positive rheumatoid factor (HCC) (Primary Dx) Start: 04-17-2023 End: 04-17-2023 Telemedicine consultation with patient Robert Farias MD Work Phone: [facility] Start: 02-01-2023 Refill Robert darden MD Work Phone: [facility] [place] Comment on above: Refill Request Start: 01-20-2023 End: 01-20-2023 ambulatory Chair [address] [place] [address] Hematology/Oncology Comment on above: Rheumatoid arthritis involving both hands with positive rheumatoid factor (HCC) (Primary Dx) Start: 01-12-2023 Telephone encounter Robert Farias MD Work Phone: [facility] [place] Comment on above: Medication Request ( Renflexis Order) Start: 01-10-2023 Refill Robert darden MD Work Phone: [facility] [place] Comment on above: Refill Request Start: 12-30-2022 End: 12-30-2022 ambulatory DO Alisa Escobar Work Phone: [facility] Work Phone: Start: 12-30-2022 End: 12-30-2022 Patient encounter procedure DO Alisa Escobar Work Phone: [facility] Work Phone: Start: 12-26-2022 End: 12-26-2022 ambulatory Robert Farias MD Work Phone: [facility] [place] Comment on above: Rheumatoid arthritis involving both hands with positive rheumatoid factor (HCC) (Primary Dx) Start: 12-26-2022 End: 12-26-2022 Telemedicine consultation with patient Robert Farias MD Work Phone: [facility] Start: 12-19-2022 Refill Robert darden MD Work Phone: Medical Records Comment on above: Refill Request Start: 12-08-2022 Refill Robert darden MD Work Phone: [facility] [place] Comment on above: Refill Request Start: 12-07-2022 Refill Robert darden MD Work Phone: [facility] Comment on above: Refill Request Start: 12-02-2022 End: 12-02-2022 ambulatory Chair 9 [facility] Work Phone: Hematology/Oncology Comment on above: Rheumatoid arthritis involving both hands with positive rheumatoid factor (HCC) (Primary Dx) Start: 11-26-2022 Orders Only Robert darden MD Work Phone: [facility] [place] Start: 11-11-2022 Refill Robert darden MD Work Phone: [facility] [place] Comment on above: Refill Request Start: 10-31-2022 Non-patient / Non-visit DO Olegario Escobar Work Phone: [facility] Start: 10-27-2022 End: 10-27-2022 ambulatory DO Alisa Escobar Work Phone: [facility] Work Phone: Start: 10-27-2022 End: 10-27-2022 Patient encounter procedure DO Alisa Escobar Work Phone: [facility]-Pulmonary Services/Neurology Work Phone: Start: 10-14-2022 End: 10-14-2022 ambulatory Chair 1 [facility] Hematology/Oncology Comment on above: Rheumatoid arthritis involving both hands with positive rheumatoid factor (HCC) (Primary Dx) Start: 10-09-2022 Refill Robert darden MD Work Phone: [facility] [place] Comment on above: Refill Request Start: 09-14-2022 Refill Robert darden MD Work Phone: [facility] Comment on above: Refill Request Start: 09-08-2022 Refill Robert darden MD Work Phone: Medical Records Comment on above: Refill Request Start: 09-02-2022 End: 09-02-2022 ambulatory Robert Farias MD Work Phone: [facility] [place] Comment on above: Rheumatoid arthritis involving both hands with positive rheumatoid factor (HCC) (Primary Dx) Start: 09-02-2022 End: 09-02-2022 Telemedicine consultation with patient Robert Farias MD Work Phone: [facility] Start: 08-26-2022 End: 08-26-2022 ambulatory Chair 7 [facility] [place] Work Phone: Hematology/Oncology Comment on above: Rheumatoid arthritis involving both hands with positive rheumatoid factor (HCC) (Primary Dx) Start: 08-24-2022 Orders Only Robert darden MD Work Phone: [facility] [place] Start: 08-10-2022 Refill Robert darden MD Work Phone: [facility] [place] Comment on above: Refill Request Start: 07-08-2022 End: 07-08-2022 ambulatory Chair 7 [facility] [place] Work Phone: Hematology/Oncology Comment on above: Rheumatoid arthritis involving both hands with positive rheumatoid factor (HCC) (Primary Dx) Start: 06-30-2022 Orders Only Robert darden MD Work Phone: [facility] [place] Start: 06-29-2022 Refill Robert darden MD Work Phone: Medical Records Comment on above: Refill Request Start: 06-21-2022 Refill Robert darden MD Work Phone: [facility] Comment on above: Refill Request Start: 06-10-2022 Refill Robert darden MD Work Phone: [facility] [place] Comment on above: Refill Request Start: 05-20-2022 End: 05-20-2022 ambulatory Chair 3 [facility] Hematology/Oncology Comment on above: Rheumatoid arthritis involving both hands with positive rheumatoid factor (HCC) (Primary Dx) Start: 05-12-2022 Refill Indjenaro darden MD Work Phone: [facility] [place] Comment on above: Refill Request Start: 05-06-2022 End: 05-06-2022 ambulatory [facility] Work Phone: Start: 05-06-2022 End: 05-06-2022 Patient encounter procedure [facility] Start: 05-02-2022 Refill Indjenaro darden MD Work Phone: Medical Records Comment on above: Refill Request Start: 04-13-2022 Refill Indjenaro darden MD Work Phone: [facility] [place] Comment on above: Refill Request Start: 03-31-2022 End: 03-31-2022 ambulatory Chair 4 [facility] Hematology/Oncology Comment on above: Rheumatoid arthritis involving both hands with positive rheumatoid factor (HCC) (Primary Dx) Start: 03-31-2022 End: 03-31-2022 Subsequent hospital visit by physician [facility] [place] [facility] Comment on above: Asymptomatic postmen opausal status [Z78.0] Start: 03-30-2022 Refill Inderedelmira darden MD Work Phone: [facility] Comment on above: Refill Request Start: 03-04-2022 Refill Indjenaro darden MD Work Phone: Medical Records Comment on above: Refill Request Start: 02-13-2022 Refill Indjenaro darden MD Work Phone: Medical Records Comment on above: Refill Request Start: 02-07-2022 Refill Indjenaro darden MD Work Phone: [facility] [place] Comment on above: Refill Request Start: 02-04-2022 End: 02-04-2022 ambulatory Robert Farias MD Work Phone: [facility] [place] Comment on above: Rheumatoid arthritis involving both hands with positive rheumatoid factor (HCC) (Primary Dx); Asymptomatic postmenopausal status Start: 02-04-2022 End: 02-04-2022 Telemedicine consultation with patient Robert Farias MD Work Phone: [facility] Start: 01-20-2022 Refill Robert darden MD Work Phone: Medical Records Comment on above: Refill Request Start: 01-20-2022 Telephone encounter Shawn Farias [facility] [place] Comment on above: [facility] - O ther Start: 01-12-2022 Refill Robert darden MD Work Phone: [facility] Comment on above: Refill Request Start: 01-07-2022 End: 01-07-2022 ambulatory Chair 8 [facility] [place] Work Phone: Hematology/Oncology Comment on above: Rheumatoid arthritis involving both hands with positive rheumatoid factor (HCC) (Primary Dx) Start: 01-03-2022 Orders Only Robert darden MD Work Phone: [facility] [place] Start: 12-24-2021 Refill Robert darden MD Work Phone: Medical Records Comment on above: Refill Request Start: 12-15-2021 Refill Robert darden MD Work Phone: [facility] [place] Comment on above: Refill Request Start: 11-19-2021 End: 11-19-2021 ambulatory Chair 7 [facility] [place] Work Phone: Hematology/Oncology Comment on above: Rheumatoid arthritis involving both hands with positive rheumatoid factor (HCC) (Primary Dx) Start: 11-12-2021 Orders Only Robert darden MD Work Phone: [facility] [place] Start: 10-22-2021 End: 10-22-2021 Patient encounter procedure Robert Farias MD Work Phone: [facility] [place] Comment on above: Rheumatoid arthritis involving both hands with positive rheumatoid factor (HCC) (Primary Dx) Start: 10-14-2021 Refill Robert darden MD Work Phone: [facility] [place] Comment on above: Refill Request Start: 10-01-2021 End: 10-01-2021 ambulatory Chair 1 [facility] Hematology/Oncology Comment on above: Rheumatoid arthritis involving both hands with positive rheumatoid factor (HCC) (Primary Dx) Start: 09-29-2021 Telephone encounter Robert Farias MD Work Phone: [facility] [place] Comment on above: Refill Request Start: 09-28-2021 Telephone encounter Robert Farias MD Work Phone: [facility] [place] Comment on above: Patient Question Start: 09-16-2021 End: 09-16-2021 ambulatory INDJENARO FARIAS Facility:[facility] Start: 09-10-2021 Refill Robert darden MD Work Phone: Medical Records Comment on above: Refill Request Start: 08-14-2021 Refill Robert darden MD Work Phone: [facility] [place] Comment on above: Refill Request Start: 08-13-2021 End: 08-13-2021 ambulatory Chair 4 [facility] Hematology/Oncology Comment on above: Rheumatoid arthritis involving both hands with positive rheumatoid factor (HCC) (Primary Dx) Start: 08-11-2021 Telephone encounter Robert Farias MD Work Phone: [facility] Comment on above: PENDING (Renflexis P ENDING with [employer] fax with office note pt scheduled) Start: 08-10-2021 Orders Only Robert darden MD Work Phone: [facility] [place] Start: 08-09-2021 Refill Robert darden MD Work Phone: [facility] [place] Comment on above: Refill Request Start: 07-22-2021 Telephone encounter Robert Farias MD Work Phone: [facility] Comment on above: APPROVED (Humira Pen APPROVED [id number] 07.04.2021 - 07.21.2022 with [employer]/cover my meds) Start: 07-16-2021 End: 07-16-2021 Patient encounter procedure Robert Farias MD Work Phone: [facility] [place] Comment on above: Rheumatoid arthritis involving both hands with positive rheumatoid factor (HCC) (Primary Dx) Start: 07-16-2021 Telephone encounter Robert Farias MD Work Phone: [facility] [place] Comment on above: Patient Update Start: 06-25-2021 End: 06-25-2021 ambulatory Chair 1 [facility] Hematology/Oncology Comment on above: Rheumatoid arthritis involving both hands with positive rheumatoid factor (HCC) (Primary Dx) Start: 08-11-2020 ambulatory [facility] Comment on above: RE:Labs Needed Pleas e Start: 08-11-2020 End: 08-11-2020 E-mail encounter from caregiver [facility] Provider [facility] Start: 08-11-2020 End: 08-11-2020 Telephone encounter Robert Farias MD Work Phone: [facility] Comment on above: Phone Call Start: 08-10-2020 End: 08-10-2020 Telephone encounter Robert Farias MD Work Phone: [facility] [place] Comment on above: Patient Update Start: 08-04-2020 End: 08-04-2020 Telephone encounter Robert Farias MD Work Phone: [facility] Comment on above: Pending PA (Renflexi s fax pending with [employer]) Start: 06-19-2020 End: 06-19-2020 Hemonc Orders Only Inderprit Farias Work Phone: [facility] Comment on above: Rheumatoid arthritis involving both hands with positive rheumatoid factor (HCC) Rheumatoid arthritis involving both hands with positive rheumatoid factor (HCC) (Primary Dx); Chronic bilateral low back pain without sciatica Medication Authoriza tion (remicade) Procedures Date Procedure Procedure Detail Performing Clinician Start: 07-25-2024 Plain chest X-ray Ruel Greco MD Work Phone: Start: 07-25-2024 Estimated creatinine clearance Paul Greco MD Work Phone: Start: 07-03-2024 Plain chest X-ray Ruel Greco MD Work Phone: Start: 07-03-2024 D-dimer assay, quantitative Paul Greco MD Work Phone: Comment on above: NORMAL D-Dimer level (<0.50) indicates no DVT or PE. Start: 07-03-2024 Estimated creatinine clearance Paul Greco MD Work Phone: Start: 05-27-2024 Estimated creatinine clearance Paul Greco MD Work Phone: Start: 05-27-2024 Cardiovascular stres s test using pharmacologic stress agent Paul Greco MD Work Phone: Start: 05-03-2024 Measurement of occul t blood in stool specimen using immunoassay Paul Greco MD Work Phone: Start: 04-11-2024 Blood count complete auto&auto difrntl wbc Cheyenne Jose PA-C Work Phone: Start: 03-10-2024 CT angiography of ch est with contrast Paul Greco MD Work Phone: Start: 03-10-2024 X-ray of chest, PA a nd lateral views Paul Greco MD Work Phone: Start: 03-10-2024 SARS-CoV-2, Influenz a & RSV (PCR) Paul Greco MD Work Phone: Start: 02-09-2024 CT angiography of ch est with contrast Paul Greco MD Work Phone: Start: 09-22-2023 Blood count complete auto&auto difrntl wbc Cheyenne Garcia PA-C Work Phone: Start: 06-16-2023 Blood count complete auto&auto difrntl wbc Robert Farias MD Work Phone: Start: 01-20-2023 Blood count complete auto&auto difrntl wbc Robert Farias MD Work Phone: Start: 10-14-2022 Blood count complete auto&auto difrntl wbc Robert Farias MD Work Phone: Start: 03-31-2022 Blood count complete automated Robert Farias MD Work Phone: Start: 03-31-2022 Dxa bone density ellie dy 1/> sites axial skel Robert Farias MD Work Phone: Start: 11-19-2021 Blood count complete automated Robert Farias MD Work Phone: Start: 05-24-2018 Lipid 1996 panel - S umesh or Plasma Robert Farias MD Work Phone: Plan of Treatment Date Care Activity Detail Author Start: 09-22-2029 Urine microalbumin profile DTaP,Tdap,Td Vaccine (2 - Td or Tdap) [facility] Start: 04-11-2027 Diabetes Screening Diabetes Screenin [facility] Start: 01-17-2027 Diabetes Screening Diabetes Screenin [facility] Start: 10-29-2026 Screening for malign ant neoplasm of colon [facility] Start: 09-21-2026 Diabetes Screening Diabetes Screenin [facility] Start: 06-15-2026 Diabetes Screening Diabetes Screenin [facility] Start: 01-20-2026 Diabetes Screening Diabetes Screenin [facility] Start: 10-14-2025 DIABETES SCREEN DIABETES SCREEN [facility] Start: 10-14-2025 Diabetes Screening Diabetes Screenin [facility] Start: 05-20-2025 DIABETES SCREEN DIABETES SCREEN [facility] Start: 03-31-2025 DIABETES SCREEN DIABETES SCREEN [facility] Start: 11-19-2024 DIABETES SCREEN DIABETES SCREEN [facility] Start: 07-25-2024 [facility] Start: 07-25-2024 [facility] Start: 07-23-2024 End: 07-23-2024 ambulatory Hematology/Oncology Comment on above: *Renflex[facility] Renflex[facility] - (Auth Pe nding) Start: 07-12-2024 DIABETES SCREEN DIABETES SCREEN [facility] Start: 07-04-2024 End: 07-04-2024 ambulatory 07/04/2024 10:30 AM EDT [facility] Hematology/Oncology [address] [place], [place] [id number] *[facility] Hematology/Oncology Comment on above: *[facility] Start: 07-03-2024 [facility] Start: 07-03-2024 [facility] Start: 06-14-2024 End: 06-14-2024 Patient encounter procedure 06/14/2024 2:40 PM EDT Office Visit [facility] [place] [address] Robert Farias MD [address] [place], [place] [id number] Follow up [facility] [place] Comment on above: Follow up Start: 06-14-2024 End: 09-13-2024 BLOOD TB SCREEN, INCUBATED BLOOD TB SCREEN, INCUBATED Lab Routine Rheumatoid arthritis involving both hands with positive rheumatoid factor (HCC) Expected: 06/14/2024, Expires: 09/13/2024 [facility] Comment on above: Expected: 06/14/2024 , Expires: 09/13/2024 Start: 06-14-2024 End: 09-13-2024 CBC panel - Blood by Automated count COMPLETE BLOOD COUNT Lab Routine Rheumatoid arthritis involving both hands with positive rheumatoid factor (HCC) Expected: 06/14/2024, Expires: 09/13/2024 [facility] Comment on above: Expected: 06/14/2024 , Expires: 09/13/2024 Start: 06-14-2024 End: 09-13-2024 Comprehensive metabolic 2000 panel - Serum or Plasma COMPREHENSIVE METABOLIC PANEL Lab Routine Rheumatoid arthritis involving both hands with positive rheumatoid factor (HCC) Expected: 06/14/2024, Expires: 09/13/2024 [facility] Comment on above: Expected: 06/14/2024 , Expires: 09/13/2024 Start: 06-14-2024 End: 09-13-2024 Erythrocyte sedimentation rate SEDIMENTATION RATE, WESTERGREN Lab Routine Rheumatoid arthritis involving both hands with positive rheumatoid factor (HCC) Expected: 06/14/2024, Expires: 09/13/2024 [facility] Comment on above: Expected: 06/14/2024 , Expires: 09/13/2024 Start: 06-03-2024 End: 06-03-2024 ambulatory 06/03/2024 12:00 PM EDT [facility] Hematology/Oncology [address] [place] [address] [facility] - (Auth Pending) Hematology/Oncology Comment on above: Renflex[facility] - (Auth Pe nding) Start: 05-27-2024 Patient discharge [facility] Start: 05-27-2024 Venous catheter care management [facility] Start: 05-27-2024 Care regimes management [facility] Start: 05-27-2024 Notification of physician [facility] Start: 05-27-2024 Admission procedure [facility] Start: 05-27-2024 Assessment of risk o f venous thromboembolism [facility] Start: 05-27-2024 Incentive spirometry [facility] Start: 05-27-2024 Insertion of cathete r into peripheral vein [facility] Start: 05-27-2024 Measuring intake and output [facility] Start: 05-27-2024 Providing care accor ding to standard [facility] Start: 05-27-2024 Provision of activit y privileges [facility] Start: 05-27-2024 Introduction of urin yimi catheter [facility] Start: 05-27-2024 Oxygen therapy [facility] Start: 05-27-2024 Referral to service [facility] Start: 05-27-2024 End: 05-27-2024 [facility] Start: 05-23-2024 End: 05-23-2024 ambulatory 05/23/2024 10:30 AM EDT [facility]Oncology [address] [place] [address] *[facility] Hematology/Oncology Comment on above: *[facility] Start: 04-15-2024 Colonoscopy w/biopsy single/multiple COLONOSCOPY AND BIOPSY [facility] Start: 04-15-2024 Egd transoral biopsy single/multiple EGD BIOPSY SINGLE/MULTIPLE [facility] Start: 04-15-2024 Venous catheter care management [facility] Start: 04-15-2024 Irrigation of vascul ar catheter [facility] Start: 04-15-2024 Patient discharge [facility] Start: 04-13-2024 DIABETES SCREEN DIABETES SCREEN [facility] Start: 04-11-2024 End: 04-11-2024 ambulatory 04/11/2024 10:30 AM EST [facility] H[facility]Oncology [address] [place] [address] *[facility] Hematology/Oncology Comment on above: *[facility] Start: 03-11-2024 [facility] Start: 03-11-2024 Venous catheter care management [facility] Start: 03-10-2024 [facility] Start: 02-29-2024 End: 02-29-2024 ambulatory 02/29/2024 10:30 AM EST [facility] H[facility]Oncology [address] [place] [address] *[facility] Hematology/Oncology Comment on above: *[facility] Start: 02-16-2024 End: 02-16-2024 ambulatory 02/16/2024 10:30 AM EST [facility] H[facility]Oncology [address] [place] [address] *[facility] Hematology/Oncology Comment on above: *[facility] Start: 02-09-2024 Venous catheter care management [facility] Start: 02-09-2024 [facility] Start: 02-09-2024 End: 02-09-2024 [facility] Start: 02-05-2024 End: 02-05-2024 Patient encounter procedure 02/05/2024 9:00 AM EST [facility] Ar[facility]ritis and Rheumatology [address] [address] Robert Farias MD [address] [place] [address] 4 months [facility] [place] Comment on above: 4 months Start: 01-24-2024 Patient referral to dietitian [facility] Start: 01-20-2024 End: 04-20-2024 Cobalamin (Vitamin B12) [Mass/volume] in Serum or Plasma VITAMIN B12 Lab Routine Anemia, chronic disease Expected: 01/20/2024, Expires: 04/20/2024 [facility] Comment on above: Expected: 01/20/2024 , Expires: 04/20/2024 Start: 01-20-2024 End: 04-20-2024 Ferritin [Mass/volume] in Serum or Plasma FERRITIN Lab Routine Anemia, chronic disease Expected: 01/20/2024, Expires: 04/20/2024 [facility] Comment on above: Expected: 01/20/2024 , Expires: 04/20/2024 Start: 01-20-2024 End: 04-20-2024 Folate [Mass/volume] in Serum or Plasma FOLATE, SERUM Lab Routine Anemia, chronic disease Expected: 01/20/2024, Expires: 04/20/2024 [facility] Comment on above: Expected: 01/20/2024 , Expires: 04/20/2024 Start: 01-20-2024 End: 04-20-2024 Iron and Iron binding capacity panel - Serum or Plasma IRON AND TIBC Lab Routine Anemia, chronic disease Expected: 01/20/2024, Expires: 04/20/2024 [facility] Work Phone: Comment on above: Expected: 01/20/2024 , Expires: 04/20/2024 Start: 01-18-2024 End: 01-18-2024 ambulatory 01/18/2024 9:00 AM [facility] Hematology/Oncology [address] [place] [address] *[facility] Hematology/Oncology Comment on above: *[facility] Start: 01-17-2024 Patient referral [facility] Work Phone: Start: 12-29-2023 End: 12-29-2023 ambulatory 12/29/2023 10:30 AM EDT [facility] H[facility]ology[facility]Oncology [address] [place], [place] [id number] *[facility] Hematology/Oncology Comment on above: *[facility] Start: 11-10-2023 End: 11-10-2023 ambulatory 11/10/2023 10:30 AM EDT [facility] Hematology[facility]Oncology [address] [place], [place] [id number] *[facility] Hematology/Oncology Comment on above: *[facility] Start: 11-05-2023 Covid-19 Vaccine () Covid-19 Vaccine () [facility] Start: 11-05-2023 Covid-19 Vaccine () Covid-19 Vaccine () [facility] Start: 11-05-2023 Influenza vaccination Influenza Vacc ine (#1) [facility] Start: 09-29-2023 End: 09-29-2023 Patient encounter procedure 09/29/2023 2:20 PM EDT Office Visit [facility] [place] [facility] [place] [id number] Robert Farias MD [address] [place], [place] [id number] Follow up [facility] [place] [place] Comment on above: Follow up Start: 09-22-2023 End: 09-22-2023 ambulatory 09/22/2023 10:30 AM EDT [facility] Hematology[facility]Oncology [address] [place], [place] [id number] *[facility] Hematology/Oncology Comment on above: *[facility] Start: 09-15-2023 End: 09-15-2023 Patient encounter procedure 09/15/2023 2:40 PM EDT Office Visit [facility] [place] [facility] [address] [id number] Robert Farias MD [address] [place], [place] [id number] Follow up [facility] [place] [facility] [place] Comment on above: Follow up Start: 08-04-2023 End: 08-04-2023 ambulatory Hematology/Oncology Comment on above: *[facility]flexis Renflexis - (Auth Pe nding) Start: 06-16-2023 End: 09-15-2023 BLOOD TB SCREEN, INCUBATED [facility] Work Phone: Comment on above: Expected: 06/16/2023 , Expires: 09/15/2023 Start: 05-25-2023 Lipid 1996 panel - S umesh or Plasma Lipid Screening [facility] Start: 05-25-2023 Lipid panel Lipid Screening [facility] Start: 05-25-2023 LIPID SCREEN LIPID SCREEN [facility] Start: 04-17-2023 End: 07-17-2023 BLOOD TB SCREEN BLOOD TB SCREEN Lab Routine Rheumatoid arthritis involving both hands with positive rheumatoid factor (HCC) Expected: 04/17/2023, Expires: 07/17/2023 [facility] Work Phone: Comment on above: Expected: 04/17/2023 , Expires: 07/17/2023 Start: 04-17-2023 End: 07-17-2023 CBC W Auto Differential panel - Blood CBC + DIFF Lab Routine Rheumatoid arthritis involving both hands with positive rheumatoid factor (HCC) Expected: 04/17/2023, Expires: 07/17/2023 [facility] Work Phone: Comment on above: Expected: 04/17/2023 , Expires: 07/17/2023 Start: 04-17-2023 End: 07-17-2023 Comprehensive metabolic 2000 panel - Serum or Plasma COMP METABOLIC PANEL Lab Routine Rheumatoid arthritis involving both hands with positive rheumatoid factor (HCC) Expected: 04/17/2023, Expires: 07/17/2023 [facility] Work Phone: Comment on above: Expected: 04/17/2023 , Expires: 07/17/2023 Start: 03-09-2023 Covid-19 Vaccine () Covid-19 Vaccine () [facility] Start: 03-06-2023 Behavioral Health Screening Behavioral Health Screening [facility] Start: 03-06-2023 Depression Assessment Depression Ass essment [facility] Start: 12-26-2022 End: 03-27-2023 CBC W Auto Differential panel - Blood CBC + DIFF Lab Routine Rheumatoid arthritis involving both hands with positive rheumatoid factor (HCC) Expected: 12/26/2022, Expires: 03/27/2023 [facility] Work Phone: Comment on above: Expected: 12/26/2022 , Expires: 03/27/2023 Start: 12-26-2022 End: 03-27-2023 Comprehensive metabolic 2000 panel - Serum or Plasma COMP METABOLIC PANEL Lab Routine Rheumatoid arthritis involving both hands with positive rheumatoid factor (HCC) Expected: 12/26/2022, Expires: 03/27/2023 [facility] Work Phone: Comment on above: Expected: 12/26/2022 , Expires: 03/27/2023 Start: 12-26-2022 End: 03-27-2023 Erythrocyte sedimentation rate SED RATE WESTERGREN Lab Routine Rheumatoid arthritis involving both hands with positive rheumatoid factor (HCC) Expected: 12/26/2022, Expires: 03/27/2023 [facility] Work Phone: Comment on above: Expected: 12/26/2022 , Expires: 03/27/2023 Start: 11-04-2022 Covid-19 Vaccine () Covid-19 Vaccine () [facility] Start: 11-04-2022 Influenza vaccination [facility] Start: 09-02-2022 End: 11-02-2022 CBC W Auto Differential panel - Blood CBC + DIFF Lab Routine Rheumatoid arthritis involving both hands with positive rheumatoid factor (HCC) Expected: 09/02/2022, Expires: 11/02/2022 [facility] Work Phone: Comment on above: Expected: 09/02/2022 , Expires: 11/02/2022 Start: 09-02-2022 End: 11-02-2022 Comprehensive metabolic 2000 panel - Serum or Plasma COMP METABOLIC PANEL Lab Routine Rheumatoid arthritis involving both hands with positive rheumatoid factor (HCC) Expected: 09/02/2022, Expires: 11/02/2022 [facility] Work Phone: Comment on above: Expected: 09/02/2022 , Expires: 11/02/2022 Start: 09-02-2022 End: 11-02-2022 Erythrocyte sedimentation rate SED RATE WESTERGREN Lab Routine Rheumatoid arthritis involving both hands with positive rheumatoid factor (HCC) Expected: 09/02/2022, Expires: 11/02/2022 [facility] Work Phone: Comment on above: Expected: 09/02/2022 , Expires: 11/02/2022 Start: 03-10-2022 COVID-19 VACCINE (5 - Moderna risk series) COVID-19 VACCINE (5 - Moderna risk series) [facility] Start: 03-06-2022 DEPRESSION ASSESSMENT DEPRESSION ASS ESSMENT [facility] Start: 02-04-2022 End: 04-06-2022 CBC panel - Blood by Automated count CBC Lab Routine Rheumatoid arthritis involving both hands with positive rheumatoid factor (HCC) Expected: 02/04/2022, Expires: 04/06/2022 [facility] Work Phone: Comment on above: Expected: 02/04/2022 , Expires: 04/06/2022 Start: 02-04-2022 End: 04-06-2022 Comprehensive metabolic 2000 panel - Serum or Plasma COMP METABOLIC PANEL Lab Routine Rheumatoid arthritis involving both hands with positive rheumatoid factor (HCC) Expected: 02/04/2022, Expires: 04/06/2022 [facility] Work Phone: Comment on above: Expected: 02/04/2022 , Expires: 04/06/2022 Start: 02-04-2022 End: 04-06-2022 Erythrocyte sedimentation rate SED RATE WESTERGREN Lab Routine Rheumatoid arthritis involving both hands with positive rheumatoid factor (HCC) Expected: 02/04/2022, Expires: 04/06/2022 [facility] Work Phone: Comment on above: Expected: 02/04/2022 , Expires: 04/06/2022 Start: 11-04-2021 Influenza vaccination INFLUENZA (#1) [facility] Start: 10-22-2021 End: 12-22-2021 BLOOD TB SCREEN, INCUBATED BLOOD TB SCREEN, INCUBATED Lab Routine Rheumatoid arthritis involving both hands with positive rheumatoid factor (HCC) Expected: 10/22/2021, Expires: 12/22/2021 [facility] Work Phone: Comment on above: Expected: 10/22/2021 , Expires: 12/22/2021 Start: 10-22-2021 End: 12-22-2021 CBC panel - Blood by Automated count CBC Lab Routine Rheumatoid arthritis involving both hands with positive rheumatoid factor (HCC) Expected: 10/22/2021, Expires: 12/22/2021 [facility] Work Phone: Comment on above: Expected: 10/22/2021 , Expires: 12/22/2021 Start: 10-22-2021 End: 12-22-2021 Comprehensive metabolic 2000 panel - Serum or Plasma COMP METABOLIC PANEL Lab Routine Rheumatoid arthritis involving both hands with positive rheumatoid factor (HCC) Expected: 10/22/2021, Expires: 12/22/2021 [facility] Work Phone: Comment on above: Expected: 10/22/2021 , Expires: 12/22/2021 Start: 10-22-2021 End: 12-22-2021 Erythrocyte sedimentation rate SED RATE WESTERGREN Lab Routine Rheumatoid arthritis involving both hands with positive rheumatoid factor (HCC) Expected: 10/22/2021, Expires: 12/22/2021 [facility] Work Phone: Comment on above: Expected: 10/22/2021 , Expires: 12/22/2021 Start: 04-25-2021 COVID-19 VACCINE (4 - Booster for Moderna series) COVID-19 VACCINE (4 - Booster for Moderna series) [facility] Start: 04-17-2021 COVID-19 VACCINE (4 - Booster for Moderna series) COVID-19 VACCINE (4 - Booster for Moderna series) [facility] Start: 03-20-2021 COVID-19 VACCINE (4 - Booster for Moderna series) COVID-19 VACCINE (4 - Booster for Moderna series) [facility] Start: 03-06-2021 DEPRESSION ASSESSMENT DEPRESSION ASS ESSMENT [facility] Start: 11-04-2020 Influenza vaccination INFLUENZ A (Season Ended) [facility] Start: 08-10-2020 End: 08-10-2021 BLOOD TB SCREEN, INCUBATED BLOOD TB SCREEN, INCUBATED Lab Routine Rheumatoid arthritis involving both hands with positive rheumatoid factor (HCC) Expected: 08/10/2020, Expires: 08/10/2021 [facility] Comment on above: Expected: 08/10/2020 , Expires: 08/10/2021 Start: 08-10-2020 End: 08-10-2021 CBC W Auto Differential panel - Blood CBC + DIFF Lab Routine Rheumatoid arthritis involving both hands with positive rheumatoid factor (HCC) Expected: 08/10/2020, Expires: 08/10/2021 [facility] Comment on above: Expected: 08/10/2020 , Expires: 08/10/2021 Start: 08-10-2020 End: 08-10-2021 Comprehensive metabolic 2000 panel - Serum or Plasma COMP METABOLIC PANEL Lab Routine Rheumatoid arthritis involving both hands with positive rheumatoid factor (HCC) Expected: 08/10/2020, Expires: 08/10/2021 [facility] Comment on above: Expected: 08/10/2020 , Expires: 08/10/2021 Start: 08-10-2020 End: 08-10-2021 Erythrocyte sedimentation rate SED RATE WESTERGREN Lab Routine Rheumatoid arthritis involving both hands with positive rheumatoid factor (HCC) Expected: 08/10/2020, Expires: 08/10/2021 [facility] Comment on above: Expected: 08/10/2020 , Expires: 08/10/2021 Start: 08-10-2020 End: 08-10-2021 Hepatitis B virus surface Ab [Presence] in Serum by Immunoassay HEP B SURF AG SCRN Lab Routine Rheumatoid arthritis involving both hands with positive rheumatoid factor (HCC) Expected: 08/10/2020, Expires: 08/10/2021 [facility] Comment on above: Expected: 08/10/2020 , Expires: 08/10/2021 Start: 08-10-2020 End: 08-10-2021 Hepatitis C virus Ab [Presence] in Serum HEP C AB IA W/CONF SCRN Lab Routine Rheumatoid arthritis involving both hands with positive rheumatoid factor (HCC) Expected: 08/10/2020, Expires: 08/10/2021 [facility] Comment on above: Expected: 08/10/2020 , Expires: 08/10/2021 Start: 2020 RSV Vaccine (1 - 1-d ose 60+ series) RSV Vaccine (1 - 1-dose 60+ series) [facility] Start: 2020 RSV Vaccine (1 - Ris k 60-74 years 1-dose series) RSV Vaccine (1 - Risk 60-74 years 1-dose series) [facility] Start: 06-18-2020 COVID-19 VACCINE (2 - Moderna 2-dose series) COVID-19 VACCINE (2 - Moderna 2-dose series) [facility] Start: 11-18-2019 Shingrix Vaccine (2 of 2) Shingrix Vaccine (2 of 2) [facility] Start: 05-25-2019 Screening for malign ant neoplasm of breast Mammogram Screening [facility] Start: 07-24-2018 Pneumococcal vaccination [facility] Start: 2010 Screening for malign ant neoplasm of colon [facility] Start: 2010 SHINGRIX VACCINE (1 of 2) SHINGRIX VACCINE (1 of 2) [facility] Start: 2005 COLOGUARD (FIT-DNA) COLOGUARD (FIT-D NA) [facility] Start: 2005 Colonoscopy COLONOSCOPY [facility] Start: 2005 COLORECTAL CANCER SCREENING COLORECTAL CANCER SCREENING [facility] Start: [address] COLONOGRAPHY [facility] Start: 2005 DIABETES SCREEN DIABETES SCREEN [facility] Start: 2005 FECAL OCCULT BLOOD FECAL OCCULT BLOO D [facility] Start: 2005 LIPID SCREEN LIPID SCREEN [facility] Start: 2005 Screening for malign ant neoplasm of colon [facility] Start: 2005 SIGMOIDOSCOPY SIGMOIDOSCOPY [facility] Start: 2000 Mammography [facility] Start: 2000 Screening for malign ant neoplasm of breast Mammogram Screening [facility] Start: 1990 HPV TESTING HPV TESTING [facility] Start: 1990 Screening for malign ant neoplasm of cervix HPV Testing [facility] Start: 1981 PAP TESTING PAP TESTING [facility] Start: 1981 Screening for malign ant neoplasm of cervix Pap Testing [facility] Start: 08-01-1979 SHINGRIX VACCINE (1 of 2) SHINGRIX VACCINE (1 of 2) [facility] Start: 08-01-1979 Urine microalbumin profile [facility] Start: 1978 Anxiety Screening Anxiety Screening [facility] Start: 1978 Depression Screening Depression Scre ening [facility] Start: 1978 HEPATITIS C SCREENING HEPATITIS C SC REENING [facility] Start: 1978 HIV SCREENING HIV SCREENING [facility] Start: 1978 HIV screening HIV Screening [facility] Start: 1972 Adult depression screening assessment DEPRESSION SCREENING [facility] Start: 08-01-1971 Screening for malign ant neoplasm of cervix Cervical Cancer Screening [facility] Start: 1966 PNEUMOCOCCAL (1 - PCV) PNEUMOCOCCAL (1 - PCV) [facility] Start: 1966 Pneumococcal vaccination Pneum ococcal Vaccine (1 - PCV) [facility] Ambulatory blood pressure recording [facility] Basic metabolic 2008 panel with ionized calcium - Serum or Plasma [facility] BLOOD TB SCREEN, INCUBATED BLOOD TB SCREEN, INCUBATED Lab Routine Rheumatoid arthritis involving both hands with positive rheumatoid factor (HCC) 11/19/2021 10:36 AM EDT [facility] Work Phone: CBC W Auto Different ial panel - Blood CBC + DIFF Lab Routine Rheumatoid arthritis involving both hands with positive rheumatoid factor (HCC) 05/20/2022 9:45 AM T [facility] Work Phone: End: 09-21-2024 CBC W Auto Differential panel - Blood COMPLETE BLOOD COUNT AND DIFFERENTIAL Lab Routine Rheumatoid arthritis involving both hands with positive rheumatoid factor (HCC) Every 3 months for 4 Occurrences starting 09/22/2023 until 09/21/2024, 1 completed [facility] Work Phone: Comment on above: Every 3 months for 4 Occurrences starting 09/22/2023 until 09/21/2024, 1 completed End: 01-17-2025 CBC W Auto Differential panel - Blood COMPLETE BLOOD COUNT AND DIFFERENTIAL Lab Routine Rheumatoid arthritis involving both hands with positive rheumatoid factor (HCC) Every 3 months for 4 Occurrences starting 01/18/2024 until 01/17/2025 [facility] Work Phone: Comment on above: Every 3 months for 4 Occurrences starting 01/18/2024 until 01/17/2025 CBC W Auto Different ial panel - Blood COMPLETE BLOOD COUNT AND DIFFERENTIAL Lab Routine Rheumatoid arthritis involving both hands with positive rheumatoid factor (HCC) 01/18/2024 8:50 AM EST [facility] End: 04-11-2025 CBC W Auto Differential panel - Blood COMPLETE BLOOD COUNT AND DIFFERENTIAL Lab Routine Rheumatoid arthritis involving both hands with positive rheumatoid factor (HCC) Every 3 months for 4 Occurrences starting 04/11/2024 until 04/11/2025 [facility] Work Phone: Comment on above: Every 3 months for 4 Occurrences starting 04/11/2024 until 04/11/2025 Comprehensive metabo lic 2000 panel - Serum or Plasma COMP METABOLIC PANEL Lab Routine Rheumatoid arthritis involving both hands with positive rheumatoid factor (HCC) [facility] End: 09-21-2024 Comprehensive metabolic 2000 panel - Serum or Plasma COMPREHENSIVE METABOLIC PANEL Lab Routine Rheumatoid arthritis involving both hands with positive rheumatoid factor (HCC) Every 3 months for 4 Occurrences starting 09/22/2023 until 09/21/2024, 1 completed [facility] Comment on above: Every 3 months for 4 Occurrences starting 09/22/2023 until 09/21/2024, 1 completed End: 01-17-2025 Comprehensive metabolic 2000 panel - Serum or Plasma COMPREHENSIVE METABOLIC PANEL Lab Routine Rheumatoid arthritis involving both hands with positive rheumatoid factor (HCC) Every 3 months for 4 Occurrences starting 01/18/2024 until 01/17/2025 [facility] Comment on above: Every 3 months for 4 Occurrences starting 01/18/2024 until 01/17/2025 Comprehensive metabo lic 2000 panel - Serum or Plasma COMPREHENSIVE METABOLIC PANEL Lab Routine Rheumatoid arthritis involving both hands with positive rheumatoid factor (HCC) 01/18/2024 8:50 AM EST [facility] End: 04-11-2025 Comprehensive metabolic 2000 panel - Serum or Plasma COMPREHENSIVE METABOLIC PANEL Lab Routine Rheumatoid arthritis involving both hands with positive rheumatoid factor (HCC) Every 3 months for 4 Occurrences starting 04/11/2024 until 04/11/2025 [facility] Comment on above: Every 3 months for 4 Occurrences starting 04/11/2024 until 04/11/2025 End: 07-14-2025 DXA Skeletal system.axial Views for bone density DXA-AXIAL SKELETON Radiology Routine Asymptomatic postmenopausal status 1 Occurrences starting 06/14/2024 until 07/14/2025 [facility] Work Phone: Comment on above: 1 Occurrences starti ng 06/14/2024 until 07/14/2025 End: 03-06-2023 DXA-AXIAL SKELETON DXA-AXIAL SKELETON Radiology Routine Asymptomatic postmenopausal status 1 Occurrences starting 02/04/2022 until 03/06/2023 [facility] Work Phone: Comment on above: 1 Occurrences starti ng 02/04/2022 until 03/06/2023 Erythrocyte sedimentation rate SED RATE WESTERGREN Lab Routine Rheumatoid arthritis involving both hands with positive rheumatoid factor ([facility]) 11/19/2021 10:36 AM EDT [facility] Work Phone: Erythrocyte sedimentation rate SED RATE WESTERGREN Lab Routine Rheumatoid arthritis involving both hands with positive rheumatoid factor ([facility]) 03/31/2022 10:47 AM [facility] Work Phone: Erythrocyte sedimentation rate SED RATE WESTERGREN Lab Routine Rheumatoid arthritis involving both hands with positive rheumatoid factor ([facility]) 05/20/2022 9:45 AM [facility] Work Phone: Erythrocyte sedimentation rate SED RATE WESTERGREN Lab Routine Rheumatoid arthritis involving both hands with positive rheumatoid factor ([facility]) 01/20/2023 10:51 AM [facility] Work Phone: Hemoglobin.gastroint glynn nal.lower [Presence] in Stool by Immunoassay IMMUNOCHEMICAL FECAL OCCULT BLOOD TEST Lab Routine Anemia, chronic disease Ordered: 01/20/2024 [facility] Comment on above: Ordered: 01/20/2024 IR PERIPH INSERTED T [place] IR PERIPH INSERTED [place] Radiology Routine Rheumatoid arthritis involving both hands with positive rheumatoid factor (HCC) Ordered: 07/19/2021 [facility] Work Phone: Comment on above: Ordered: 07/19/2021 Patient Education [facility] Work Phone: Patient referral [facility] Work Phone: [facility] Immunizations Immunization Date Immunization Notes Care Provider Fa cili 01-12-2024 influenza, seasonal, injectable, preservative free Paul Greco MD Work Phone: [facility] 01-12-2023 influenza virus vaccine, unspecified formulation hCeyenne Garcia PA-C Work Phone: [facility] 01-13-2022 influenza virus vaccine, unspecified formulation Robert Farias MD Work Phone: [facility] Payers Date Payer Category Payer Unknown [id number] 2024 Self-pay [id number] 2020 Private Health Insurance [facility] [id number] 2020 Unknown [id number]. [id number] 2020 Unknown [id number]. 1.13.159.2. [id number] 2020 Unknown [id number] 1960 Unknown [id number] 2.16.840.1.772276.3.579.2. 627 Medicaid MEDICAID [id number] Unknown [id number] 2.16.840.1.748900.3.579.2. 462 Unknown [id number] 2.16.840.1.779907.3.579.2. 462 Unknown [id number] 2.16.840.1.261306.3.579.2. 462 Unknown [id number] 2.16.840.1.413657.3.579.2. 462 Unknown [id number] 2.16.840.1.906680.3.579.2. 462 Unknown [id number] 2.16.840.1.709107.3.579.2. 462 Unknown [id number] 2.16.840.1.837922.3.579.2. 462 Unknown [id number] 2.16.840.1.874218.3.579.2. 462 Unknown [id number] 2.16.840.1.526303.3.579.2. 462 Unknown [id number] 2.16.840.1.637205.3.579.2. 462 Unknown [id number] 2.16.840.1.365220.3.579.2. 462 Unknown [id number] 2.16.840.1.184396.3.579.2. 462 Unknown [id number] 2.16.840.1.844933.3.579.2. 462 Unknown [id number] 2.16.840.1.851624.3.579.2. 462 Unknown [id number] 2.16.840.1.033865.3.579.2. 462 Unknown [id number] 2.16.840.1.591860.3.579.2. 462 Unknown [id number] 2.16.840.1.904423.3.579.2. 462 Unknown [id number] 2.16.840.1.357651.3.579.2. 462 Unknown [id number] 2.16.840.1.697493.3.579.2. 462 Unknown [id number] 2.16.840.1.871690.3.579.2. 462 Unknown [id number] 2.16.840.1.755478.3.579.2. 462 Unknown [id number] 2.16.840.1.941685.3.579.2. 462 Unknown [id number] 2.840.1.731019.3.579.2. 462 Unknown [id number] 2.16.840.1.420718.3.579.2. 462 Unknown [id number] 2.16.840.1.216607.3.579.2. 462 Unknown [id number] 2.16.840.1.067293.3.579.2. 462 Unknown [id number] 2.16.840.1.746248.3.579.2. 462 Unknown [id number] 2.16.840.1.935524.3.579.2. 462 Unknown [id number] 2.16840.1.999139.3.579.2. 462 Unknown [id number] 2.16.840.1.206104.3.579.2. 462 Unknown [id number] 2.16840.1.883578.3.579.2. 462 Unknown [id number] 2.16.840.1.258663.3.579.2. 462 Social History Date Type Detail Facility Start: 06-19-2020 End: 07-25-2024 Tobacco smoking status NHIS Never smoker [facility] Start: 06-19-2020 End: 09-29-2023 Tobacco use and exposure Never used [facility] Start: 06-19-2020 End: 06-14-2024 Alcohol intake Ex-drinker (finding) [facility] Start: 1960 Sex Assigned At Not on file [facility] Start: 06-15-2021 End: 10-22-2021 Exposure to SARS-CoV-2 (event) Not sure [facility] Start: 1960 Sex Assigned At Female W [facility] Start: 10-22-2021 End: 07-08-2022 History of Social function [facility] Start: 10-22-2021 End: 07-08-2022 Tobacco use panel [facility] National Score (1-10 0), lower number is lower risk 74 [facility] Start: 05-16-2024 End: 05-27-2024 Sex Female (finding) [facility] Medical Equipment Procedure Code Equipment Code Equipment Origin al Text Equipment Identifier Dates Port [employer] I sp Mri 8fr Implantable Infusion 1 Lumen Attachable - [id number] Start: 09-21-2021 Goals Date Patient Goal Desired Activity /State Functional Status Date Assessment Result Facility 05-27-2024 Functional status Ambulates;Bathroom Priv ilege [facility] Work Phone: Mental Status Date Assessment Result Facility 07-25-2024 Cognitive function Voice/Name [facility] Work Phone: 07-03-2024 Cognitive function Voice/Name [facility] Work Phone: 05-27-2024 Cognitive function Voice/Name [facility] Work Phone: 04-15-2024 Cognitive function Level Of Cons ciousness Sedated [facility] Work Phone: 04-15-2024 Cognitive function Patient Orien tation Person;Place;Time [facility] Work Phone: 03-10-2024 Cognitive function Awake;Alert;A ppropriate;Follo ws Commands [facility] Work Phone: 02-09-2024 Cognitive function Voice/Name Sidd[facility] Work Phone: Clinical Notes 06-19-2020 to 07-18-2024 Telephone Encounter - Balbina Alford - 07/18/2024 12:14 PM EDTTelephone Encounter - Balbina Alford - 07/18/2024 12:14 PM EDTTelephone Encounter - Brynn Fofana LPN - 07/09/2024 10:11 AM EDT Note Date & Type Note Facility 07-18-2024 Telephone encounter Note Yue Contrerasw - PENDING [id number] Caresource/Portal Balbina Alford [employer] [facility] 07-18-2024 Miscellaneous Notes Yue Contrerasw - PENDING [id number] Caresobeckie/Portal Balbina Alford [employer] documented in this encounter [facility] 07-09-2024 Telephone encounter Note Pharmacy faxed requesting the following refill Refill(s) Requested: Requested Prescriptions Pending Prescriptions Disp Refills hydrOXYchloroQUINE (PLAQUENIL) 200 mg tablet [Pharmacy Med Name: HYDROXYCHLOROQUINE 200 MG TAB] 90 tablet 0 Sig: take 1 tablet by mouth once daily ALLERGIES Allergen Reactions Demerol [Meperidine] Other: See Comments Lowered blood pressure extremely low Sulfa (Sulfonamide * GI Upset Stomach pain severe (home) [phone] (cell) Last Office Visit Date: 06/14/2024 Last Distance Health Visit: Visit date not found Future Appointment: Visit date not found The patients preferred pharmacy has been captured for this encounter? yes Request is for script(s) to be escript to pharmacy. Brynn Fofana LPN [facility] 07-09-2024 Miscellaneous Notes Pharmacy faxed requesting the following refill Refill(s) Requested: Requested Prescriptions Pending Prescriptions Disp Refills hydrOXYchloroQUINE (PLAQUENIL) 200 mg tablet [Pharmacy Med Name: HYDROXYCHLOROQUINE 200 MG TAB] 90 tablet 0 Sig: take 1 tablet by mouth once daily ALLERGIES Allergen Reactions Demerol [Meperidine] Other: See Comments Lowered blood pressure extremely low Sulfa (Sulfonamide * GI Upset Stomach pain severe (home) [phone] (cell) Last Office Visit Date: 06/14/2024 Last [facility] Visit: Visit date not found Future Appointment: Visit date not found The patients preferred pharmacy has been captured for this encounter? yes Request is for script(s) to be escript to pharmacy. Brynn Fofana LPN documented in this encounter [facility] 06-14-2024 Instructions Robert Farias MD - 06/14/2024 2:47 PM EDT BONE MINERAL DENSITY PATIENT INSTRUCTIONS ======== Bone mineral density testing measures the amount of calcium in certain parts of your bones. This information determines how strong your bones are. The test is used to detect osteoporosis, a disease in which the bone's mineral content and density are low, increasing a person's risk of fractures. The lumbar spine (lower back) and the hip are the skeletal sites usually examined. For the test, remember that: 1. You cannot take this test if you are . 2. Eat a normal diet on the day of the test. 3. Take your medications as you normally would. 4. DO NOT take calcium supplements (such as Tums) for 24 hours before the test. 5. On the day of the test, leave valuables (jewelry or credit cards) at home. 6. The test should be performed prior to oral, rectal or IV contrast studies, or at least 7 days after any of these studies. For the test, you may be asked to wear a hospital gown. You will lie on your back, on a padded table, in a comfortable position. Generally, you can resume your usual activities immediately. documented in this encounter [facility] 06-14-2024 Note HNO ID: [id number] Author: ROBERT FARIAS MD Service: ? Author Type: Physician Type: Progress Notes Filed: 06/14/2024 17:16 Note Text: This note was created using EveryRack. Subjective Jaylin Carroll is a 63 year old female. I am good Trying to get BP controlled Home reading vary 154/90 210/110 and went to ER On 3 BP med Cardio seen and logging reading No sob No chest pain No belly issue No side effect with med Doing good not in pain May be back pain but that is normal Review of Systems Objective BP 139/85 Pulse 84 Temp 36.8 ?C (98.2 ?F) Ht 154.9 cm (5' 1) Wt 81.9 kg (180 lb 9.6 oz) BMI 34.12 kg/m? Physical Exam Vitals reviewed. Constitutional: General: She is not in acute distress. Appearance: She is not ill-appearing or toxic-appearing. Cardiovascular: Rate and Rhythm: Normal rate and regular rhythm. Heart sounds: Normal heart sounds. No murmur heard. No friction rub. No gallop. Pulmonary: Effort: No respiratory distress. Breath sounds: Normal breath sounds. No stridor. No wheezing or rhonchi. Abdominal: General: There is no distension. Palpations: Abdomen is soft. There is no mass. Tenderness: There is no abdominal tenderness. Hernia: No hernia is present. Musculoskeletal: Right shoulder: Normal. Left shoulder: Normal. Right elbow: Normal. Left elbow: Normal. Right wrist: Normal. Left wrist: Normal. Right hand: Normal. Left hand: Normal. Cervical back: No rigidity or tenderness. Thoracic back: Normal. Lumbar back: Normal. Right hip: Normal. Left hip: Normal. Right knee: Normal. Left knee: Normal. Right lower leg: No edema. Left lower leg: No edema. Right ankle: Normal. Left ankle: Normal. Right foot: Normal. Left foot: Normal. Comments: There is no evidence on exam of synovitis, enthesitis, and hypermobility / tenderness. Lymphadenopathy: Cervical: No cervical adenopathy. Assessment and Plan First visit 06/19/2020 ( moved from [place] ) RA and wants treatment for that 06/24 ( Q 4 months )) NV coronary artery disease cannot use NSAID.. RA ( RF 184, CCP 125 ) age 15 onset 2023 Quantiferon M. 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 Mendes [place] [facility] [place] [facility] : 01/2020 last visit ( record reviewed and scanned) ( 2 miscarriages ,no DVT no Raynaud's Phenomenon , no serositis , no photosensitivity ) (sun burn easy ))))) TREATMENT Enbrel positive response 12/19 to 05/20 stopped insurance issue. OFF Simponi 2017 excellent response allergic reaction OFF Sulfa allergy : severe GI upset, no rash no angioedema OFF plaquenil 200 mg bid ( 2014 ) 06/2020 plaquenil 200 mg . (Optha 03/2024 ) MTX 25 mg ( 5 am 5 pm ) ( started ) 06/19/2020 MTX 8 pill weekly . 02/05/24 mtx 15 mg ( cut back on immunosupp, as pneumonia ) Renflexis 04/24 excellent response, 5mg/kg ( 7 week ) (02/2020 last infusion) 06/19/2020 resumed ( missed result of change in location ) insurance covering 02/24 fully covered next 02/26/24 (( last infusion 01/18/2024, before that nov 09 ) ) 10/25 02/24 05/26 08/26 10.04/2906/14/2024 remission . ( coronary artery disease will not cut back on med as cannot use NSAID ) Drug and disease monitoring 11/2019 wbc 3900 low cbc cmp normal 05/19/2020 cbc 4000 wbc cmp normal, chol 171 ldl 100 trig 63, HLD 58 08/14/2020 cbc hg 11.4 low cmp normal esr 2 mm 12/03/2020 esr 5 cmp cbc normal 07/25 cmp glu 156, cbc diff , ESR 2 mm. 11/25 esr 2 cmp cbc normal 05/20/22 cmp cbc normal esr 2 10/14/22 cbc diff cmp esr 2 mm 06/27 cbc cmp normal 09/22/23 cbc cmp normal 01/18/24 cmp cr 0.46, .04/12/2024 K 3.5 Anemia 2023 nov 9.4/30.9 low (( not on NSAID ) (( 01/2024 NSAID stopped as NV ) (( no GI bleed, stool blood neg ) 2024 10.9/36.9 02/05/24 hicks pending, will be seeing GI for this issue 02/21 Vit D 39 .11/2019 Vit D 41. 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 Knee OA bilateral : observe. 07/25 Toe pain 07/16/21 ( compression stocking ) 07/16/21 Right foot fx : 2019 pain off and on ( uses tennis shoe with good results ) Diabetes Mellitus Type II HTN Allergic Rhinitis and Allergic Conjunctivitis Fall allergy ( skin testing done past negative ) Asthma No atopic dermatitis (( 2023 dec :: pneumonia sick 12/2023, went to hospital 01/2024 after PCP advised admission ) ( Recurrent pneumonia 3 time as kid, and then pneumonia 2017 and then 2023 ) (( PPSV23 2018 done )) prevnar 21 done 2024 coronary artery d (more content not included)... [facility] 06-14-2024 History of Present illness Narrative This note was created using NoteWriter. Subjective Jaylin Carroll is a 63 year old female. I am good Trying to get BP controlled Home reading vary 154/90 210/110 and went to ER On 3 BP med Cardio seen and logging reading No sob No chest pain No belly issue No side effect with med Doing good not in pain May be back pain but that is normal Review of Systems Objective BP 139/85 Pulse 84 Temp 36.8 C (98.2 F) Ht 154.9 cm (5' 1) Wt 81.9 kg (180 lb 9.6 oz) BMI 34.12 kg/m Physical Exam Vitals reviewed. Constitutional: General: She is not in acute distress. Appearance: She is not ill-appearing or toxic-appearing. Cardiovascular: Rate and Rhythm: Normal rate and regular rhythm. Heart sounds: Normal heart sounds. No murmur heard. No friction rub. No gallop. Pulmonary: Effort: No respiratory distress. Breath sounds: Normal breath sounds. No stridor. No wheezing or rhonchi. Abdominal: General: There is no distension. Palpations: Abdomen is soft. There is no mass. Tenderness: There is no abdominal tenderness. Hernia: No hernia is present. Musculoskeletal: Right shoulder: Normal. Left shoulder: Normal. Right elbow: Normal. Left elbow: Normal. Right wrist: Normal. Left wrist: Normal. Right hand: Normal. Left hand: Normal. Cervical back: No rigidity or tenderness. Thoracic back: Normal. Lumbar back: Normal. Right hip: Normal. Left hip: Normal. Right knee: Normal. Left knee: Normal. Right lower leg: No edema. Left lower leg: No edema. Right ankle: Normal. Left ankle: Normal. Right foot: Normal. Left foot: Normal. Comments: There is no evidence on exam of synovitis, enthesitis, and hypermobility / tenderness. Lymphadenopathy: Cervical: No cervical adenopathy. Assessment and Plan First visit 06/19/2020 ( moved [place] ) RA and wants treatment for that 06/24 ( Q 4 months )) NV coronary artery disease cannot use NSAID.. RA ( RF 184, CCP 125 ) age 15 onset 2023 Quantiferon M. 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 Mendes [place] [facility] [place] [facility] : 01/2020 last visit ( record reviewed and scanned) ( 2 miscarriages ,no DVT no Raynaud's Phenomenon , no serositis , no photosensitivity ) (sun burn easy ))))) TREATMENT Enbrel positive response 12/19 to 05/20 stopped insurance issue. OFF Simponi 2017 excellent response allergic reaction OFF Sulfa allergy : severe GI upset, no rash no angioedema OFF plaquenil 200 mg bid ( 2014 ) 06/2020 plaquenil 200 mg . (Optha 03/2024 ) MTX 25 mg ( 5 am 5 pm ) ( started ) 06/19/2020 MTX 8 pill weekly . 02/05/24 mtx 15 mg ( cut back on immunosupp, as pneumonia ) Renflexis 04/24 excellent response, 5mg/kg ( 7 week ) (02/2020 last infusion) 06/19/2020 resumed ( missed result of change in location ) insurance covering 02/24 fully covered next 02/26/24 (( last infusion 01/18/2024, before that nov 09 ) ) 10/25 02/24 05/26 08/26 10.04/2906/14/2024 remission . ( coronary artery disease will not cut back on med as cannot use NSAID ) Drug and disease monitoring 11/2019 wbc 3900 low cbc cmp normal 05/19/2020 cbc 4000 wbc cmp normal, chol 171 ldl 100 trig 63, HLD 58 08/14/2020 cbc hg 11.4 low cmp normal esr 2 mm 12/03/2020 esr 5 cmp cbc normal 07/25 cmp glu 156, cbc diff , ESR 2 mm. 11/25 esr 2 cmp cbc normal 05/20/22 cmp cbc normal esr 2 10/14/22 cbc diff cmp esr 2 mm 06/27 cbc cmp normal 09/22/23 cbc cmp normal 01/18/24 cmp cr 0.46, .04/12/2024 K 3.5 Anemia 2023 9.4/30.9 low (( not on NSAID ) (( 01/2024 NSAID stopped as NV ) (( no GI bleed, stool blood neg ) 2024 10.9/36.9 02/05/24 hicks pending, will be seeing GI for this issue 02/21 Vit D 39 .11/2019 Vit D 41. 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 Knee OA bilateral : observe. 07/25 Toe pain 07/16/21 ( compression stocking ) 07/16/21 Right foot fx : 2019 pain off and on ( uses tennis shoe with good results ) Diabetes Mellitus Type II HTN Allergic Rhinitis and Allergic Conjunctivitis Fall allergy ( skin testing done past negative ) Asthma No atopic dermatitis (( 2023 dec :: pneumonia sick 12/2023, went to hospital 01/2024 after PCP advised admission ) ( Recurrent pneumonia 3 time as kid, and then pneumonia 2017 and then 2023 ) (( PPSV23 2018 done )) prevnar 21 done 2024 coronary artery disease (( 2023 :: hospitalized pneumonia 2023, found to have NV ) ( NSTEMI ) 2023 CTA chest : no PE, left lung base infiltrate 2023 ECHO EF 60%, moderate MVI ( MR ) mod TVI Pulm art pressure 33 mm 2023 cath Cardiac catheterization with normal angiographically bifurcating left main coronary into LAD and left circumflex, left anterior descending artery large vessel reaching all the way to the apex with angiographically apical portion of the LAD with significant disease but small vessel, left circumflex normal angiographically, RCA large dominant with proximal RCA mild haziness, moderate atherosclerosis of around 40 to 50%. TT 02/05/24 cardiology following . 2023 stool for occult blood neg 2015 Colonoscopy last 2023 cologuard neg Osteopenia 2023 chest xr : diffuse degenerative changes of the visualized thoracic spine 02/21 DXA -2.1 hip neck -1.9 total hip ( SC ) 03/28 DXA : L1, L2, L3 BMD is 0.91 g/cm2 -2.2 Right hip BMD is 0.89 -0.9 , Right femoral neck BMD is 0.82 g/cm2 -1.6... TT none 06/14/2024 DXA ordered Pain mgt ( pain adv done ) 09/2020 Ultram 50 mg every 6 hour ( rare use with flare < 10 months ) last refill > 6 months ago. ( Rheum ) 10/02/2020 give her one week to deal with current flare. 10/25 off ultram Naproxen 500 mg bid prn 2014 started ( using 2-3 times week ) 04/17/20232023 went OFF Tylenol prn 10/25 ( weather related use, 500 mg pill 1 pills once a week ) 04/17/2023 zanaflex 2 mg hs before 2020 ( only at night ) ( daily )) 04/17/2023 Brief Personal and family history: Gym 12/25 spending 1 hour to 90 min low impact. 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 ( leukemia age 43 ) 06/24 2 son in [facility] 06/19/2020 Brother 2 healthy 06/19/2020 3 sister healthy 06/19/2020 Mother 58 ( CHF cancer spinal from breast ) 06/19/2020 ( did not smoke ) Father brain aneurysm 67 06/19/2020 ( did smoke) 02/23 COVID cough, sneezing, sore throat, no temp etc . 03/2023 COVID pneumonia and NV documented in this encounter [facility] 05-28-2024 Telephone encounter Note Ben, [place] - [facility] [employer] [facility] 05-28-2024 Miscellaneous Notes Yue Contrerasw - PENDRADHA Torresbeckie Portal [employer] documented in this encounter [facility] 05-27-2024 Discharge summary [facility] 05-27-2024 Consult note [facility] 05-27-2024 Discharge summary [facility] 05-27-2024 Note [facility] 05-27-2024 History and physi costa note Note Date/Time May 27, 2024 3:28am [facility] Medical Records Department [address] [place] [address] H&P Exam - Hospitalist 05/27/24 0227 MR#: [id number] Acct: [id number] Name: JAYLIN CARROLL Rep #:[id number] : 1960 63 From: Natalie Gaspar MD PCP: Dr. Paul Greco MD Status:ADM IN O Location: [address] HPI - General General Date of Admission: 05/27/24 Date of Service: 05/27/24 Chief Complaint: Chest pain, lightheadedness/near syncopal. HPI Narrative The patient is a 63 y/o F w/ PMHx: Hypothyroidism, Rheumatoid arthritis, HTN, HLD, Chronic asthma with allergic rhinitis, Obesity, Diabetes mellitus type II, Chronic anemia/Fe deficiency anemia, Hx NSTEMI w/ 01/12/24 Cardiac catheterization with normal angiographically bifurcating left main coronary intoLAD and left circumflex, left anterior descending artery large vessel reaching all the way to the apex with angiographically apical portion of the LAD with significant disease but small vessel, left circumflex normal angiographically, RCA large dominant with proximal RCA mild haziness, moderate atherosclerosis of around 40 to 50% however the admission at that time had been complicated by possible PNA and also concern for possibly GI bleed which was eventually ruled out with recommended follow-up outpatient with gastroenterology prior to following up again with cardiology with continuation of Plavix at that time and hold on aspirin until cleared per gastroenterology with most recently noted endoscopy 04/15/2024 with upper endoscopy with normal esophagus, erythematous mucosa in the gastric body which was biopsied and no gross lesions in the secondpart of the duodenum in addition to colonoscopy notable for an 8 mm polyp in transverse colon removed, diverticulosis otherwise normal-appearing plan continue iron supplementation, repeat negative fecal occult blood test at that time with consideration for possible upcoming future capsule endoscopy. Patient presented to the [facility] initially on 05/26/2024 secondary to history of onset of chest discomfort just as she was getting ready for bed with sudden onset sternal aching nonradiating starting at approximately 7 PM initially sharp and then became more aching 8/10 in severity with concurrent onset mild lightheadedness and some bilateral paresthesias sensations to the face and LUE with near syncopal type sensation prompting EMS call. She denied any nausea or emesis nor any dyspnea or diaphoresis to the outside facility ED. EMS administered full-strength aspirin and nitroglycerin. She did report onset of a headache but transiently improved in the outside ED but then was recurrent. Patient does report that on day of presentation she had nearly 2 weeks worth oflaundry that she was doing and did get through all of the loads going up and down stairs which is a lot more than she does activity wang at baseline. Upon transfer and evaluation at [facility] upon arrival patient does have reproducible pain. Workup in the outside facility included initial vital signs heart rate 113, respiratory rate 20, BP 173/92 with repeat most recent vital signs upon request to transfer BP 117/64, heart rate 89, respiratory rate 14, T37, 94% on room air,proBNP 80, magnesium 1.5, BMP with sodium 138, potassium 3.6, chloride 102, CO2 27, BUN/creatinine 15/0.83, glucose 268, initial high-sensitivity troponin 81, CBC with WBC 8.0, hemoglobin 12.8, MCV 80.2, platelet 179 without marked shift, urinalysis with elevated specific gravity 1.025, negative nitrite, small leukocyte esterase, no marked urine WBCs or RBCs, repeat delta troponin 74, CT of the brain with no acute intracranial findings, chest x-ray with no acute cardiopulmonary findings with a right IJV tunneled catheter port tip projecting over the right atrium, EKG with sinus tachycardia with no acute evidence of ischemia. In the outside ED patient was administered morphine 4 mg IV x 1, Zofran 4 mg IV x 1, magnesium 2 g IV x 1. [facility] Medical History Wears partial dentures Wears glasses Thyroid disease Rheumatoid arthritis High cholesterol Dietary restriction History of rheumatic fever Non-smoker History of echocardiogram Cardiology follow-up encounter Anemia Hypothyroidism Diabetes Migraines Hypertension Arthritis Asthma Diabetes mellitus, type 2 Obesity (BMI 30.0-34.9) NSTEMI, initial episode of care Rheumatoid arthritis Home Medications ?Medication ?Instructions ?Recorded ?Last Taken ?Type folic acid 1 mg tablet 1 mg PO DAILY 01/11/2405/27 History hydroxychloroquine 200 mg tablet 200 mg PO DAILY 01/1005/27/24 History infliximab-abda 100 mg intravenous IV .Q6W RA 01/11/24 11/03/23 History solution (Renflexis) ipratropium bromide 42 mcg (0.06 2 spray intranasal TI D PRN sinus 01/11/24 05/27/24 History %) nasal spray symptoms levothyroxine 25 mcg tablet 25 mcg PO DAILY 01/11/24 0 05/27/24 History methotrexate sodium 2.5 mg tablet 20 mg PO QWEEK RA 05/26/24 History montelukast 10 mg tablet 10 mg PO DAILY 01/11/2405/05 History tizanidine 2 mg tablet 2 - 6 mg PO QHS PRN PRN musc le 01/11/24 05/24/24 History spasticity albuterol sulfate 2.5 mg/3 mL 2.5 mg (3 mL) inhalation Q4H PRN 01/13/24 Unknown Rx (0.083 %) solution for nebulization PRN sob #180 mL albuterol sulfate 90 mcg/actuation 2 puff inhalation Q 4H PRN 01/13/24 Unknown Rx aerosol inhaler shortness of breath or wheez ing #8.5 grams atorvastatin 80 mg tablet 80 mg PO QHS 30 days #30 tab s 01/13/24 05/26/24 Rx clopidogrel 75 mg tablet 75 mg PO DAILY 30 days #30 t abs 01/13/24 05/27/24 Rx metformin 500 mg tablet 1,000 mg PO QDAY 02/26/24 History metoprolol tartrate 50 mg tablet 50 mg PO BID #180 tab s 02/26/24 05/27/24 Rx spironolactone 25 mg tablet 25 mg PO DAILY #30 tabs 05/27/24 Rx amlodipine 5 mg tablet 5 mg PO 1200 04/12/24 History hydralazine 25 mg tablet 25 mg PO TID 04/12/24 History ferrous sulfate 324 mg (65 mg 324 mg PO QDAY #60 tabs 04/30/24 05/26/24 Rx iron) tablet,delayed release Allergy/AdvReac Type Severity Reaction Status Date / Time meperidine (From Demerol) AdvReac HYPOTENSION Verified 04/12/24 13:41 Sulfa (Sulfonamide AdvReac Abd Verified 04/12/24 13:41 Antibiotics) cramps/diarrhea Surgical History History of cardiac catheterization History of laparoscopy History of tonsillectomy History of hysterectomy History of History of appendectomy History of cholecystectomy Social History Smoking Status: Never smoker ROS ROS Narrative Admission Review of Systems: CONSTITUTIONAL: No weight loss, fever, chills, + weakness or fatigue. HEENT: + Headache, lightheadedness/dizziness/no syncopal sensation. Eyes: No visual loss, blurred vision, double vision or yellow sclerae. Ears, Nose, Throat: No hearing loss, sneezing, congestion, runny nose or sore throat. SKIN: No rash or itching, lesions, wounds. CARDIOVASCULAR: + Chest pain, lightheadedness/dizziness/near syncopal sensation.No palpitations, edema, orthopnea, syncopal events. RESPIRATORY: No shortness of breath, cough or sputum, wheezing, hemoptysis. GASTROINTESTINAL: No anorexia, nausea, vomiting or diarrhea, abdominal pain, melena, BRBPR. GENITOURINARY: No dysuria, frequency, urgency or retention. NEUROLOGICAL: + Headache, dizziness, lightheadedness/near syncopal sensation, bilateral facial transient paresthesias/LUE with onset of discomfort in the chest. No syncope, paralysis, ataxia, numbness or tingling in the extremities, focal weakness, change in bowel or bladder control, seizure. MUSCULOSKELETAL: + muscle, back pain, joint pain or stiffness. HEMATOLOGIC: + Chronic anemia, easy bleeding/bruising. LYMPHATICS: No enlarged nodes. No history of splenectomy. PSYCHIATRIC: No history of depression or anxiety. ENDOCRINOLOGIC: No reports of sweating, cold or heat intolerance. No polyuria orpolydipsia. ALLERGIES: + History of asthma with allergic rhinitis. Physical Exam Narrative Physical Examination: General: Awake, alert, oriented x 3 and cooperative, seated upright in PCU bed in no apparent distress, notes some still anterior chest sternal discomfort which upon evaluation is reproducible and she confirms that that is the pain sheis having. Skin: Normal color, normal turgor, no icterus, no cyanosis. HEENT: AT/NC, EOMI, PERRLA, MMM, no carotid bruits or JVD noted. Lungs: Mildly diminished, greater bases, poor effort, no rales, ronchi or wheezing. Heart: Regular rate and rhythm; no gallop, rub audible, + anterior chest discomfort with palpation which she confirms is the chest discomfort she is complaining of. Abdomen: Soft, obese, NTTP, ND, distant normal BS, no appreciated HSM. Extremities: No cyanosis, clubbing, or edema. Neurological: Patient awake, alert, oriented as noted, cognitive function intact; pupils equally reactive to light and accommodation, cranial nerves grossly normal, moving all 4 extremities, no focal deficits, strength mildly globally creased. Psychiatric: Affect appears fatigued otherwise normal, no acute evidence of depressive or anxiety feelings. Assessment & Plan Assessment/Plan (1) Chest pain: PLAN: Plan The patient is a 63 y/o F w/ PMHx: Hypothyroidism, Rheumatoid arthritis, HTN, HLD, Chronic asthma with allergic rhinitis, Obesity, Diabetes mellitus type II, Chronic anemia/Fe deficiency anemia, Hx NSTEMI w/ 01/12/24 Cardiac catheterization with normal angiographically bifurcating left main coronary intoLAD and left circumflex, left anterior descending artery large vessel reaching all the way to the apex with angiographically apical portion of the LAD with significant disease but small vessel, left circumflex normal angiographically, RCA large dominant with proximal RCA mild haziness, moderate atherosclerosis of around 40 to 50% who now presents to the [facility] as a direct admission on 05/27/24 with initiall presentation to the [facility] ED [facility] initially on 05/26/2024secondary to history of onset of chest discomfort just as she was getting ready for bed with sudden onset sternal aching nonradiating starting at approximately 7 PM initially sharp and then became more aching with concurrent onset mild lightheadedness and some bilateral paresthesias sensations to the face and LUE with near syncopal type sensation prompting EMS call. #1. Chest pain, near syncopal sensation with facial paresthesias concerning forACS; however, some component reproducible pain thus potentially also musculoskeletal etiology: EKG in ED sinus tachycardia with no acute evidence of ischemia, CXR w/ no acute cardiopulmonary finding, initial trop 81 with repeat delta 74 at outside facility however initial obtained at [facility] 7 thus unclear if these were truly elevated previous as should be a similar lab value given both high-sensitivity but uncertain. Will admit to PCU from outside facility, place on a monitored bed to assure no acute myocardial infarction with serial cardiac enzymes and EKGs. If serial enzymes continue to remain normal as are currently then would plan AM cardiac stress testing. Magnesium as noted outside facility mildly decreased 1.5 with supplementation administered with plan repeat level norma.m. to ensure resolved. FLP in AM. Continue medical management. ASA, NG, morphine. #2. Hypomagnesemia: Outside facility with magnesium 1.5, supplementation administered at outside facility prior to transfer, will repeat level in a.m. toensure improved. Ous to transfer #3. Chronic microcytic anemia/iron deficiency anemia: Outside facility labs included hemoglobin 12.8, MCV 80.2, most recent hemoglobin noted previous to this 03/10/2024 hemoglobin 10.2, following with gastroenterology, recent upper andlower endoscopies with no obvious bleeding source, recent fecal occult blood test negative, plan potential outpatient future endoscopy, encourage continued iron supplementation, continue to trend CBC. #4. Chronic asthma with allergic rhinitis: Will temporarily hold home inhalers in the interim maintain on ATC budesonide therapies, PRN albuterol, HOB, IS parameters, continue patient home montelukast regimen. #5. Hypertension: Continue home hydralazine, spironolactone, amlodipine, metoprolol with hold parameters as needed. PRN IV hydralazine. #6. Hyperlipidemia: Continue home statin regimen. AM FLP. #7. Diabetes mellitus type II: Hold oral home regimen, NPO status given plannedcardiac stress testing as noted with return to ADA diet once appropriate, accu checks w/ ISS. #8. Rheumatoid arthritis: We will continue patient home Plaquenil, also on methotrexate which will temporarily be held, continue folic acid supplementation, encourage continued outpatient follow-up as previously arrangedwith rheumatology. From review of records also on infliximab. #9. Hypothyroidism: Will continue home levothyroxine regimen. #10. Obesity: Weight loss and lifestyle changes encouraged. #11. GERD: We will continue patient on PPI. #12. DVT prophylaxis: Lovenox, chemoprophylactic dosing as troponins are trending downward. #13. CODE STATUS: Full Code status. Charges/Coding Visit Charges Inpatient E&M: 77340 Init Hosp L3 05/27/24 0328 <Electronically signed by Natalie Gaspar MD> Cosigner Signature (if applicable): CC: Dr. Natalie Gaspar MD; Dr. Paul Greco MD~ Signed [facility] Work Phone: [phone]) 271-601203-24-2025 History and physical note [facility] Medical Records Department [address] [facility] [place] [address] H&P Exam - Hospitalist 05/27/247 MR#: [id number] Acct: [id number] Name: JAYLIN CARROLL Rep #:[id number] : 1960 63 From: Natalie Gaspar MD PCP: Dr. Paul Greco MD Status:ADM IN O Location: [place] [id number]- HPI - General General Date of Admission: 05/27/24 Date of Service: 05/27/24 Chief Complaint: Chest pain, lightheadedness/near syncopal. HPI Narrative The patient is a 63 y/o F w/ PMHx: Hypothyroidism, Rheumatoid arthritis, HTN, HLD, Chronic asthma with allergic rhinitis, Obesity, Diabetes mellitus type II, Chronic anemia/Fe deficiency anemia, Hx NSTEMI w/ 01/12/24 Cardiac catheterization with normal angiographically bifurcating left main coronary intoLAD and left circumflex, left anterior descending artery large vessel reaching all the way to the apex with angiographically apical portion of the LAD with significant disease but small vessel, left circumflex normal angiographically, RCA large dominant with proximal RCA mild haziness, moderate atherosclerosis of around 40 to 50% however the admission at that time had been complicated by possible PNA and also concern for possibly GI bleed which was eventually ruled out with recommended follow-up outpatient with gastroenterology prior to following up again with cardiology with continuationof Plavix at that time and hold on aspirin until cleared per gastroenterology with most recently noted endoscopy 04/15/2024 with upper endoscopy with normal esophagus, erythematous mucosa in the gastric body which was biopsied and no gross lesions in the secondpart of the duodenum in addition to colonoscopy notable for an 8 mm polyp in transverse colon removed, diverticulosis otherwise normal-appearing plan continue iron supplementation, repeat negative fecal occult blood test at that time with consideration for possible upcoming future capsule endoscopy. Patient presented to [facility] initially on 05/26/2024 secondary to history of onset of chest discomfort just as she was getting ready for bed with sudden onset sternal aching nonradiating starting at approximately 7 PM initially sharp and then became more aching 8/10 in severity with concurrent onset mild lightheadedness and some bilateral paresthesias sensations to the face and LUE with near syncopal type sensation prompting EMS call. She denied any nausea or emesis nor any dyspnea or diaphoresis [facility] EMS administered full-strength aspirin and nitroglycerin. She did report onset of a headache but transiently improved in the outside ED but then was recurrent. Patient does report that on day of presentation she had nearly 2 weeks worth oflaundry that she was doing and did get through allof the loads going up and down stairs which is a lot more than she does activity wang at baseline. Upon transfer and evaluation at [facility] upon arrival patient does have reproducible pain. Workup in the outside facility included initial vital signs heart rate 113, respiratory rate 20, BP 173/92 with repeat most recent vital signs upon request to transfer BP 117/64, heart rate 89, respiratory rate 14, T37, 94% on room air,proBNP 80, magnesium 1.5, BMP with sodium 138, potassium 3.6, chloride 102, CO2 27, BUN/creatinine 15/0.83, glucose 268, initial high- sensitivity troponin 81, CBC with WBC 8.0, hemoglobin 12.8, MCV 80.2, platelet 179 without marked shift, urinalysis with elevated specific gravity 1.025, negative nitrite, small leukocyte esterase, no marked urine WBCs or RBCs, repeat delta troponin 74, CT of the brain with no acute intracranial findings, chest x-ray with no acute cardiopulmonary findings with a right IJV tunneled catheter port tip projecting over the right atrium, EKG withsinus tachycardia with no acute evidence of ischemia. In the outside ED patient was administered morphine 4 mg IV x 1, Zofran 4 mg IV x 1, magnesium 2 g IV x 1. [facility] Medical History Wears partial dentures Wears glasses Thyroid disease Rheumatoid arthritis High cholesterol Dietary restriction History of rheumatic fever Non-smoker History of echocardiogram Cardiology follow-up encounter Anemia Hypothyroidism Diabetes Migraines Hypertension Arthritis Asthma Diabetes mellitus, type 2 Obesity (BMI 30.0-34.9) NSTEMI, initial episode of care Rheumatoid arthritis Home Medications ?Medication ?Instructions ?Recorded ?Last Taken ?Type folic acid 1 mg tablet 1 mg PO DAILY 01/11/2405/27 History hydroxychloroquine 200 mg tablet 200 mg PO DAILY 01/1005/27/24 History infliximab-abda 100 mg intravenous IV .Q6W RA 01/11/24 11/03/23 History solution (Renflexis) ipratropium bromide 42 mcg (0.06 2 spray intranasal TI D PRN sinus 01/11/24 05/27/24 History %) nasal spray symptoms levothyroxine 25 mcg tablet 25 mcg PO DAILY 01/11/24 0 05/27/24 History methotrexate sodium 2.5 mg tablet 20 mg PO QWEEK RA 05/26/24 History montelukast 10 mg tablet 10 mg PO DAILY 01/11/2405/05 History tizanidine 2 mg tablet 2 - 6 mg PO QHS PRN PRN musc le 01/11/24 05/24/24 History spasticity albuterol sulfate 2.5 mg/3 mL 2.5 mg (3 mL) inhalation Q4H PRN 01/13/24 Unknown Rx (0.083 %) solution for nebulization PRN sob #180 mL albuterol sulfate 90 mcg/actuation 2 puff inhalation Q 4H PRN 01/13/24 Unknown Rx aerosol inhaler shortness of breath or wheez ing #8.5 grams atorvastatin 80 mg tablet 80 mg PO QHS 30 days #30 tab s 01/13/24 05/26/24 Rx clopidogrel 75 mg tablet 75 mg PO DAILY 30 days #30 t abs 01/13/24 05/27/24 Rx metformin 500 mg tablet 1,000 mg PO QDAY 02/26/24 History metoprolol tartrate 50 mg tablet 50 mg PO BID #180 tab s 02/26/24 05/27/24 Rx spironolactone 25 mg tablet 25 mg PO DAILY #30 tabs 05/27/24 Rx amlodipine 5 mg tablet 5 mg PO 1200 04/12/24 History hydralazine 25 mg tablet 25 mg PO TID 04/12/24 History ferrous sulfate 324 mg (65 mg 324 mg PO QDAY #60 tabs 04/30/24 05/26/24 Rx iron) tablet,delayed release Allergy/AdvReac Type Severity Reaction Status Date / Time meperidine (From Demerol) AdvReac HYPOTENSION Verified 04/12/24 13:41 Sulfa (Sulfonamide AdvReac Abd Verified 04/12/24 13:41 Antibiotics) cramps/diarrhea Surgical History History of cardiac catheterization History of laparoscopy History of tonsillectomy History of hysterectomy History of History of appendectomy History of cholecystectomy Social History Smoking Status: Never smoker ROS ROS Narrative Admission Review of Systems: CONSTITUTIONAL: No weight loss, fever, chills, + weakness or fatigue. HEENT: + Headache, lightheadedness/dizziness/no syncopal sensation. Eyes: No visual loss, blurred vision, double vision or yellow sclerae. Ears, Nose, Throat: No hearing loss, sneezing, congestion, runny nose or sore throat. SKIN: No rash or itching, lesions, wounds. CARDIOVASCULAR: + Chest pain, lightheadedness/dizziness/near syncopal sensation.No palpitations, edema, orthopnea, syncopal events. RESPIRATORY: No shortness of breath, cough or sputum, wheezing, hemoptysis. GASTROINTESTINAL: No anorexia, nausea, vomiting or diarrhea, abdominal pain, melena, BRBPR. GENITOURINARY: No dysuria, frequency, urgency or retention. NEUROLOGICAL: + Headache, dizziness, lightheadedness/near syncopal sensation, bilateral facial transient paresthesias/LUE with onset of discomfort in the chest. No syncope, paralysis, ataxia, numbness or tingling in the extremities, focal weakness, change in bowel or bladder control, seizure. MUSCULOSKELETAL: + muscle, back pain, joint pain or stiffness. HEMATOLOGIC: + Chronic anemia, easy bleeding/bruising. LYMPHATICS: No enlarged nodes. No history of splenectomy. PSYCHIATRIC: No history of depression or anxiety. ENDOCRINOLOGIC: No reports of sweating, cold or heat intolerance. No polyuria orpolydipsia. ALLERGIES: + History of asthma with allergic rhinitis. Physical Exam Narrative Physical Examination: General: Awake, alert, oriented x 3 and cooperative, seated upright in PCU bed in no apparent distress, notes some still anterior chest sternal discomfort which upon evaluation is reproducible and she confirms that that is the pain sheis having. Skin: Normal color, normal turgor, no icterus, no cyanosis. HEENT: AT/NC, EOMI, PERRLA, MMM, no carotid bruits or JVD noted. Lungs: Mildly diminished, greater bases, poor effort, no rales, ronchi or wheezing. Heart: Regular rate and rhythm; no gallop, rub audible, + anterior chest discomfort with palpation which she confirms is the chest discomfort she is complaining of. Abdomen: Soft, obese, NTTP, ND, distant normal BS, no appreciated HSM. Extremities: No cyanosis, clubbing, or edema. Neurological: Patient awake, alert, oriented as noted, cognitive function intact; pupils equally reactive to light and accommodation, cranial nerves grossly normal, moving all 4 extremities, no focaldeficits, strength mildly globally creased. Psychiatric: Affect appears fatigued otherwise normal, no acute evidence of depressive or anxiety feelings. Assessment & Plan Assessment/Plan (1) Chest pain: PLAN: Plan The patient is a 63 y/o F w/ PMHx: Hypothyroidism, Rheumatoid arthritis, HTN, HLD, Chronic asthma with allergic rhinitis, Obesity, Diabetes mellitus type II, Chronic anemia/Fe deficiency anemia, Hx NSTEMI w/ 01/12/24 Cardiac catheterization with normal angiographically bifurcating left main coronary intoLAD and left circumflex, left anterior descending artery large vessel reaching all the way to the apex with angiographically apical portion of the LAD with significant disease but small vessel, left circumflex normal angiographically, RCA large dominant with proximal RCA mild haziness, moderate atherosclerosis of around 40 to 50% who now presents to the [facility] as a direct admission on 05/27/24 with initiall presentation to [facility] initially on 05/26/2024secondary to history of onset of chest discomfort just as she was getting ready for bed with sudden onset sternal aching nonradiating starting at approximately 7 PM initially sharp and then became more aching with concurrent onset mild lightheadedness and some bilateral paresthesias sensations to the face and LUE with near syncopal type sensation prompting EMS call. #1. Chest pain, near syncopal sensation with facial paresthesias concerning forACS; however, some component reproducible pain thus potentially also musculoskeletal etiology: EKG in ED sinus tachycardia with no acute evidence of ischemia, CXR w/ no acute cardiopulmonary finding, initial trop 81 withrepeat delta 74 at outside facility however initial obtained at [facility] 7 thus unclear if these were truly elevated previous as should be a similar lab value given both high-sensitivity but uncertain. Will admit to PCU from outside facility, place on a monitored bed to assure no acute myocardial infarction with serial cardiac enzymes and EKGs. If serial enzymes continue to remain normal as are currently then would plan AM cardiac stress testing. Magnesium as noted outside facility mildly decreased 1.5 with supplementation administered with plan repeat level norma.m. to ensure resolved. FLP in AM. Continue medical management. ASA, NG, morphine. #2. Hypomagnesemia: Outside facility with magnesium 1.5, supplementation administered at outside facility prior to transfer, will repeat level in a.m. toensure improved. Ous to transfer #3. Chronic microcytic anemia/iron deficiency anemia: Outside facility labs included hemoglobin 12.8, MCV 80.2, most recent hemoglobin noted previous to this 03/10/2024 hemoglobin 10.2, following with gastroenterology, recent upper andlower endoscopies with no obvious bleeding source, recent fecal occult blood test negative, plan potential outpatient future endoscopy, encourage continued iron supplementation, continue to trend CBC. #4. Chronic asthma with allergic rhinitis: Will temporarily hold home inhalers in the interim maintain on ATC budesonide therapies, PRN albuterol, HOB, IS parameters, continue patient home montelukast regimen. #5. Hypertension: Continue home hydralazine, spironolactone, amlodipine, metoprolol with hold parameters as needed. PRN IV hydralazine. #6. Hyperlipidemia: Continue home statin regimen. AM FLP. #7. Diabetes mellitus type II: Hold oral home regimen, NPO status given plannedcardiac stress testing as noted with return to ADA diet once appropriate, accu checks w/ ISS. #8. Rheumatoid arthritis: We will continue patient home Plaquenil, also on methotrexate which will temporarily be held, continue folic acid supplementation, encourage continued outpatient follow-up as previously arrangedwith rheumatology. From review of records also on infliximab. #9. Hypothyroidism: Will continue home levothyroxine regimen. #10. Obesity: Weight loss and lifestyle changes encouraged. #11. GERD: We will continue patient on PPI. #12. DVT prophylaxis: Lovenox, chemoprophylactic dosing as troponins are trending downward. #13. CODE STATUS: Full Code status. Charges/Coding Visit Charges Inpatient E&M: 60733 Init Hosp L3 05/27/24 0328 Cosigner Signature (if applicable): CC: Dr. Natalie Gaspar MD; Dr. Paul Greco MD~ Signed [facility]02-10-2025 Evaluation note* Diagnosis Onset Date Resolution Status Admit Date Anemia acute April 15, 2024 10:42am Anemia acute April 30, 2024 7:58am Chest pain inactive May 27 1:28am Anemia acute May 29 7:45am Hypertension chronic May 31, 2024 9:02am Chest pain inactive May 31 9:02am Hypertension chronic July 30 8:18am [employer] Work Phone: 1(334) 312-690602-10-2025 [facility]02-05-2025 Telephone encounter Note* Telephone Encounter - Ashley Bedoya MA - 04/10/2024 2:15 PM EST Pharmacy sent a ClassWallet message requesting the following refill. Requested Prescriptions Pending Prescriptions Disp Refills hydrOXYchloroQUINE (PLAQUENIL) 200 mg tablet [Pharmacy Med Name: HYDROXYCHLOROQUINE 200 MG TAB] 90 tablet 0 Sig: take 1 tablet by mouth once daily Patient last appointment: 02/05/2024 Next Appointment: 06/14/2024 Patient Phone numbers: [phone] (home) Request is for script(s) to be escript to pharmacy. Ashley Bedoya MA [facility]02-05-2025 Miscellaneous Notes* Telephone Encounter - Ashley Bedoya MA - 04/10/2024 2:15 PM EST Pharmacy sent a ClassWallet message requesting the following refill. Requested Prescriptions Pending Prescriptions Disp Refills hydrOXYchloroQUINE (PLAQUENIL) 200 mg tablet [Pharmacy Med Name: HYDROXYCHLOROQUINE 200 MG TAB] 90 tablet 0 Sig: take 1 tablet by mouth once daily Patient last appointment: 02/05/2024 Next Appointment: 06/14/2024 Patient Phone numbers: [phone] (home) Request is for script(s) to be escript to pharmacy. Ashley Bedoya MA [facility] Telephone encounter Note * Telephone Encounter - Ashley Bedoya MA - 04/08/2024 8:10 AM EST Ignore, already approved. [facility]02-03-2025 Miscellaneous Notes* Telephone Encounter - Ashley Bedoya MA - 04/08/2024 8:10 AM EST Ignore, already approved. documented in [facility]Tr[facility] Telephone encounter Note * Telephone Encounter - Ashley Bedoya MA - 04/08/2024 8:09 AM EST Pharmacy sent a ClassWallet message requesting the following refill. Requested Prescriptions Pending Prescriptions Disp Refills tiZANidine (ZANAFLEX) 2 mg tablet 30 tablet 2 Sig: Take 1 tablet by mouth daily at bedtime. Patient last appointment: 02/05/2024 Next Appointment: 06/14/2024 Patient Phone numbers: [phone] (home) Request is for script(s) to be escript to pharmacy. Ashley Bedoya MA [facility]02-03-2025 Miscellaneous Notes* Telephone Encounter - Ashley Bedoya MA - 04/08/2024 8:09 AM EST Pharmacy sent a MyChart message requesting the following refill. Requested Prescriptions Pending Prescriptions Disp Refills tiZANidine (ZANAFLEX) 2 mg tablet 30 tablet 2 Sig: Take 1 tablet by mouth daily at bedtime. Patient last appointment: 02/05/2024 Next Appointment: 06/14/2024 Patient Phone numbers: [phone] (home) Request is for script(s) to be escript to pharmacy. Ashley Bedoya MA documented [facility]Tr[facility] Telephone encounter Note * Telephone Encounter - Ashley Bedoya MA - 04/01/2024 9:08 AM EST Pharmacy sent a [employer] message requesting the following refill. Requested Prescriptions Pending Prescriptions Disp Refills folic acid 1 mg tablet [Pharmacy Med Name: FOLIC ACID 1 MG TABLET] 90 tablet 1 Sig: take 1 tablet by mouth once daily Patient last appointment: 02/05/2024 Next Appointment: 06/14/2024 Patient Phone numbers: [phone] (home) Request is for script(s) to be escript to pharmacy. Ashley Bedoya MA [facility]01-27-2025 Miscellaneous Notes* Telephone Encounter - Ashley Bedoya MA - 04/01/2024 9:08 AM EST Pharmacy sent a ClassWallet message requesting the following refill. Requested Prescriptions Pending Prescriptions Disp Refills folic acid 1 mg tablet [Pharmacy Med Name: FOLIC ACID 1 MG TABLET] 90 tablet 1 Sig: take 1 tablet by mouth once daily Patient last appointment: 02/05/2024 Next Appointment: 06/14/2024 Patient Phone numbers: [phone] (home) Request is for script(s) to be escript to pharmacy. Ashley Bedoya MA documented in [facility]Tr[facility] Evaluation note* Diagnosis Onset Date Resolution Status Admit Date Anemia acute February 06, 2024 9:25am Anemia acute February 26, 2024 9:09am Hypertension chronic February 9:09am NSTEMI, initial episode of care resolved February 25, 2 024 9:09am Anemia acute April 15, 2024 10:42am Anemia acute April 30, 2024 7:58am [facility] Work Phone: 1(367) 443-930412-03-2024 Evaluation note* Diagnosis Onset Date Resolution Status Admit Date Anemia acute February 06, 2024 9:25am Anemia acute February 26, 2024 9:09am Hypertension chronic February 9:09am NSTEMI, initial episode of care resolved February 25, 024 9:09am Anemia acute April 15, 2024 10:42am Anemia acute April 30, 2024 7:58am Chest pain acute May 27 1:28am [facility] Work Phone: 1(476) 557-914512-02-2024 NoteHNO ID: [id number] Author: ROBERT FARIAS MD Service: ? Author Type: Physician Type: Progress Notes Filed: 04/13/2024 12:51 Note Text: This note was created using NoteWriter. Subjective Jaylin Carroll is a 63 year old female. NV (( was sick with pneumonia and was not aware of this issue ) Pneumonia 12/27 issue sob and cough, seen PCP initial viral diagnosis, and then pneumonia diagnosis Done with this Pneumonia diagnosis on CT and not on chest xr No fever sob or cough at present Chest is fine at present If climbs steps sob Tired at present Recently anemia Now having resting HR 115 Cardio 02/26 visit Cardiac rehab Has send message to cardio about HR issue No chest pain No sob If over exert then sob Over all doing good RA getting remicade RA not with joint pain May be MCP Off NSAID No swelling in any joint Review of Systems Objective There were no vitals taken for this visit. Physical Exam Constitutional: General: She is not in acute distress. Appearance: She is not ill-appearing or toxic-appearing. Comments: No clear syoviitis Assessment and Plan First visit 06/19/2020 ( moved from [place] ) RA and wants treatment for that 06/24 ( Q 4 months )) NV coronary artery disease cannot use NSAID RA ( RF 184, CCP 125 ) age 15 onset 2023 Quantiferon M. 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 Mendes [place] [facility] [place] [facility] : 01/2020 last visit ( record reviewed and scanned) ( 2 miscarriages ,no DVT no Raynaud's Phenomenon , no serositis , no photosensitivity ) (sun burn easy ))))) TREATMENT Enbrel positive response 12/19 to 05/20 stopped insurance issue. OFF Simponi 2017 excellent response allergic reaction OFF Sulfa allergy : severe GI upset, no rash no angioedema OFF plaquenil 200 mg bid ( 2014 ) 06/2020 plaquenil 200 mg . (optha pending 02/05/24 ) MTX 25 mg ( 5 am 5 pm ) ( started ) 06/19/2020 MTX 8 pill weekly . 02/05/24 mtx 15 mg ( cut back on immunosupp, as pneumonia ) Renflexis 04/24 excellent response, 5mg/kg ( 7 week ) (02/2020 last infusion) 06/19/2020 resumed ( missed result of change in location ) insurance covering 02/24 fully covered next 02/26/24 (( last infusion 01/18/2024, before that nov 09 ) ) 10/25 02/24 05/26 08/26 10.23 04/29 09/26 remission . Optha pending, ( working mon to Monday 5 pm ) wants some one open on sat, get labs Drug and disease monitoring 11/2019 wbc 3900 low cbc cmp normal 05/19/2020 cbc 4000 wbc cmp normal, chol 171 ldl 100 trig 63, HLD 58 08/14/2020 cbc hg 11.4 low cmp normal esr 2 mm 12/03/2020 esr 5 cmp cbc normal 07/25 cmp glu 156, cbc diff , ESR 2 mm. 11/25 esr 2 cmp cbc normal 05/20/22 cmp cbc normal esr 2 10/14/22 cbc diff cmp esr 2 mm 06/27 cbc cmp normal 09/22/23 cbc cmp normal 01/18/24 cmp cr 0.46, .04/12/2024 K 3.5 Anemia 2023 9.4/30.9 low (( not on NSAID ) (( 01/2024 NSAID stopped as NV ) (( no GI bleed, stool blood neg ) 2024 10.9/36.9 02/05/24 hicks pending, will be seeing GI for this issue 02/21 Vit D 39 .11/2019 Vit D 41. 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 Knee OA bilateral : observe. 07/25 Toe pain 07/16/21 ( compression stocking ) 07/16/21 Right foot fx : 2019 pain off and on ( uses tennis shoe with good results ) Diabetes Mellitus Type II HTN Allergic Rhinitis and Allergic Conjunctivitis Fall allergy ( skin testing done past negative ) Asthma No atopic dermatitis (( 2023 :: pneumonia sick 12/2023, went to hospital 01/2024 after PCP advised admission ) ( Recurrent pneumonia 3 time as kid, and then pneumonia 2017 and then 2023 ) (( PPSV23 2018 done )) 02/05/24 get prevnar 20 / prevnar 21 done 02/05/24 coronary artery disease (( 2023 dec :: hospitalized pneumonia 2023, found to have NV ) ( NSTEMI ) 2023 CTA chest : no PE, left lung base infiltrate 2023 ECHO EF 60%, moderate MVI ( MR ) mod TVI Pulm art pressure 33 mm 2023 cath Cardiac catheterization with normal angiographically bifurcating left main coronary into LAD and left circumflex, left anterior descending artery large vessel reaching all the way to the apex with angiographically apical portion of the LAD with significant disease but small vessel, left circumflex normal angiographically, RCA large dominant with proximal RCA mild haziness, moderate atherosclerosis of around 40 to 50%. TT 02/05/24 cardiology following . 2023 stool for occult blood neg 2016 Colonoscopy last 2023 cologuard neg (more content not included)...[facility] 02-05-2024 History of Present illness Narrative* Robert Farias MD - 02/05/2024 9:18 AM EST This note was created using Resy Networkriter. Subjective Jaylin Carroll is a 63 year old female. NV (( was sick with pneumonia and was not aware of this issue ) Pneumonia 12/27 issue sob and cough, seen PCP initial viral diagnosis, and then pneumonia diagnosis Done with this Pneumonia diagnosis on CT and not on chest xr No fever sob or cough at present Chest is fine at present If climbs steps sob Tired at present Recently anemia Now having resting HR 115 Cardio 02/26 visit Cardiac rehab Has send message to cardio about HR issue No chest pain No sob If over exert then sob Over all doing good RA getting remicade RA not with joint pain May be MCP Off NSAID No swelling in any joint Review of Systems Objective There were no vitals taken for this visit. Physical Exam Constitutional: General: She is not in acute distress. Appearance: She is not ill-appearing or toxic-appearing. Comments: No clear syoviitis Assessment and Plan First visit 06/19/2020 ( moved [place] ) RA and wants treatment for that 06/24 ( Q 4 months )) NV coronary artery disease cannot use NSAID RA ( RF 184, CCP 125 ) age 15 onset 2023 Quantiferon M. 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 Mendes [place] [facility] [place] [facility] : 01/2020 last visit ( record reviewed and scanned) ( 2 miscarriages ,no DVT no Raynaud's Phenomenon , no serositis , no photosensitivity ) (sun burn easy ))))) TREATMENT Enbrel positive response 12/19 to 05/20 stopped insurance issue. OFF Simponi 2017 excellent response allergic reaction OFF Sulfa allergy : severe GI upset, no rash no angioedema OFF plaquenil 200 mg bid ( 2014 ) 06/2020 plaquenil 200 mg . (optha pending 02/05/24 ) MTX 25 mg ( 5 am 5 pm ) ( started ) 06/19/2020 MTX 8 pill weekly . 02/05/24 mtx 15 mg ( cut back on immunosupp, as pneumonia ) Renflexis 04/24 excellent response, 5mg/kg ( 7 week ) (02/2020 last infusion) 06/19/2020 resumed ( missed result of change in location ) insurance covering 02/24 fully covered next 02/26/24 (( last infusion 01/18/2024, before that nov 09 ) ) 10/25.04/29 remission . Optha pending, ( working mon to Monday 5 pm ) wants some one open on sat, get labs Drug and disease monitoring 11/2019 wbc 3900 low cbc cmp normal 05/19/2020 cbc 4000 wbc cmp normal, chol 171 ldl 100 trig 63, HLD 58 08/14/2020 cbc hg 11.4 low cmp normal esr 2 mm 12/03/2020 esr 5 cmp cbc normal 07/25 cmp glu 156, cbc diff , ESR 2 mm. 11/25 esr 2 cmp cbc normal 05/20/22 cmp cbc normal esr 2 10/14/22 cbc diff cmp esr 2 mm 06/27 cbc cmp normal 09/22/23 cbc cmp normal 01/18/24 cmp cr 0.46, Anemia 2023 nov 9.4/30.9 low (( not on NSAID ) (( 01/2024 NSAID stopped as NV ) (( no GI bleed, stool blood neg ) 02/05/24 hicks pending, will be seeing GI for this issue 02/21 Vit D 39 .11/2019 Vit D 41. 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 Knee OA bilateral : observe. 07/25 Toe pain 07/16/21 ( compression stocking ) 07/16/21 Right foot fx : 2019 pain off and on ( uses tennis shoe with good results ) Diabetes Mellitus Type II HTN Allergic Rhinitis and Allergic Conjunctivitis Fall allergy ( skin testing done past negative ) Asthma No atopic dermatitis (( 2023 :: pneumonia sick 12/2023, went to hospital 01/2024 after PCP advised admission ) ( Recurrent pneumonia 3 time as kid, and then pneumonia 2017 and then 2023 ) (( PPSV23 2018 done )) 02/05/24 get prevnar 20 / prevnar 21 done 02/05/24 coronary artery disease (( 2023 dec :: hospitalized pneumonia 2023, found to have NV ) ( NSTEMI ) 2023 CTA chest : no PE, left lung base infiltrate 2023 ECHO EF 60%, moderate MVI ( MR ) mod TVI Pulm art pressure 33 mm 2023 cath Cardiac catheterization with normal angiographically bifurcating left main coronary into LAD and left circumflex, left anterior descending artery large vessel reaching all the way to the apex with angiographically apical portion of the LAD with significant disease but small vessel, left circumflex normal angiographically, RCA large dominant with proximal RCA mild haziness, moderate atherosclerosis of around 40 to 50%. TT 02/05/24 cardiology following . 2023 stool for occult blood neg 2015 Colonoscopy last 2023 cologuard neg Osteopenia 2023 chest xr : diffuse degenerative changes of the visualized thoracic spine 02/21 DXA -2.1 hip neck -1.9 total hip ( SC ) 03/28 DXA : L1, L2, L3 BMD is 0.91 g/cm2 -2.2 Right hip BMD is 0.89 -0.9 , Right femoral neck BMD is0.82 g/cm2 -1.6... TT none 05/12/22 observe Pain mgt ( pain adv done ) 09/2020 Ultram 50 mg every 6 hour ( rare use with flare < 10 months ) last refill > 6 months ago. ( Rheum ) 10/02/2020 give her one week to deal with current flare. 10/25 off ultram Naproxen 500 mg bid prn 2014 started ( using 2-3 times week ) 04/17/20232023 went OFF Tylenol prn 10/25 ( weather related use, 500 mg pill 1 pills once a week ) 04/17/2023 zanaflex 2 mg hs before 2020 ( only at night ) ( daily )) 04/17/2023 Brief Personal and family history: Gym 12/25 spending 1 hour to 90 min low impact. 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 ( leukemia age 43 ) 06/24 2 son in [facility] 06/19/2020 Brother 2 healthy 06/19/2020 3 sister healthy 06/19/2020 Mother 58 ( CHF cancer spinal from breast ) 06/19/2020 ( did not smoke ) Father brain aneurysm 67 06/19/2020 ( did smoke) 02/23 COVID cough, sneezing, sore throat, no temp etc . This is a virtual visit. It required patient provider interaction for the medical decision making as documented below . .I have communicated my name and active licensure. The patient's identity and physical location were verified at the time of this visit. Either the patient or their legal international account representative has been informed of the risks and benefits of -- and alternatives to -- treatment through a remote evaluation and consents to proceed with the evaluation remotely. I spent a total of 30 minutes on the date of the service which included [id number] patient care. [facility]Tr[facility] Telephone encounter Note * Telephone Encounter - Ashley Bedoya MA - 01/22/2024 10:26 AM EST Pharmacy sent a ClassWallet message requesting the following refill. Requested Prescriptions Pending Prescriptions Disp Refills tiZANidine (ZANAFLEX) 2 mg tablet [Pharmacy Med Name: TIZANIDINE HCL 2 MG TABLET] 60 tablet 2 Sig: TAKE 1 TO 3 TABLETS BY MOUTH AT BEDTIME IF NEEDED Patient last appointment: 09/29/2023 Next Appointment: 02/05/2024 Patient Phone numbers: [phone] (home) Request is for script(s) to be escript to pharmacy. Ashley Bedoya MA [facility]11-18-2024 Miscellaneous Notes* Telephone Encounter - Ashley Bedoya MA - 01/22/2024 10:26 AM EST Pharmacy sent a [employer]Wallet message requesting the following refill. Requested Prescriptions Pending Prescriptions Disp Refills tiZANidine (ZANAFLEX) 2 mg tablet [Pharmacy Med Name: TIZANIDINE HCL 2 MG TABLET] 60 tablet 2 Sig: TAKE 1 TO 3 TABLETS BY MOUTH AT BEDTIME IF NEEDED Patient last appointment: 09/29/2023 Next Appointment: 02/05/2024 Patient Phone numbers: [phone] (home) Request is for script(s) to be escript to pharmacy. Ashley Bedoya MA documented in this encounterTr[facility]11-[facility]24 Telephone encounter Note * Telephone Encounter - Brynn Fofana LPN - 01/22/2024 9:14 AM EST Pt was discharged on Monday after a two day stay at [facility] diagnosed with pneumonia andMI (NSTEMI). Discharge summary in [facility] (care everywhere). Pt had a heart cath done without intervention but was started on plavix. ABX tx has been completed and pt also was diagnosed with anemia and started on oral iron. Pt is to follow up with GI and that appointment will be made with a provider in the [place] area. Pt reports that the stool for OB was negative in the hospital. Pt would prefer to follow up with GI and not do the additional blood work as ordered by Dr.Singh neri has many post admission follow ups scheduled. Brynn Fofana LPN [facility]11-18-2024 Miscellaneous Notes* Telephone Encounter - Brynn Fofana LPN - 01/22/2024 9:14 AM EST Pt was discharged on Monday after a two day stay at [facility] diagnosed with pneumonia andMI (NSTEMI). Discharge summary in [facility] (care everywhere). Pt had a heart cath done without intervention but was started on plavix. ABX tx has been completed and pt also was diagnosed with anemia and started on oral iron. Pt is to follow up with GI and that appointment will be made with a provider in the [place] area. Pt reports that the stool for OB was negative in the hospital. Pt would prefer to follow up with GI and not do the additional blood work as ordered by Dr.Singh neri has many post admission follow ups scheduled. Brynn Fofana LPN * Telephone Encounter - Robert Farias MD - 01/20/2024 2:57 PM EST Please let her know labs show anemia Get test done ordered Also stool test Robert Farias MD documented in this encounterTr[facility]11-16-2024 Telephone encounter Note * Telephone Encounter - Robert Farias MD - 01/20/2024 2:57 PM EST Please let her know labs show anemia Get test done ordered Also stool test Robert Farias MD [facility]11-09-2024 [facility]11-07-2024 Telephone encounter Note* Telephone Encounter - Ashley Bedoya MA - 01/11/2024 1:12 PM EST Pharmacy sent a ClassWallet message requesting the following refill. Requested Prescriptions Pending Prescriptions Disp Refills hydrOXYchloroQUINE (PLAQUENIL) 200 mg tablet [Pharmacy Med Name: HYDROXYCHLOROQUINE 200 MG TAB] 90 tablet 0 Sig: take 1 tablet by mouth once daily Patient last appointment: 09/29/2023 Next Appointment: 02/05/2024 Patient Phone numbers: [phone] (home) Request is for script(s) to be escript to pharmacy. Ashley Bedoya MA [facility]11-07-2024 Miscellaneous Notes* Telephone Encounter - Ashley Bedoya MA - 01/11/2024 1:12 PM EST Pharmacy sent a Viablewarehart message requesting the following refill. Requested Prescriptions Pending Prescriptions Disp Refills hydrOXYchloroQUINE (PLAQUENIL) 200 mg tablet [Pharmacy Med Name: HYDROXYCHLOROQUINE 200 MG TAB] 90 tablet 0 Sig: take 1 tablet by mouth once daily Patient last appointment: 09/29/2023 Next Appointment: 02/05/2024 Patient Phone numbers: [phone] (home) Request is for script(s) to be escript to pharmacy. Ashley Bedoya MA documented in this [facility] Telephone encounter Note * Telephone Encounter - Ashley Bedoya MA - 11/21/2023 9:10 AM EDT Patient sent a The [employer] message requesting the following refill. Requested Prescriptions Pending Prescriptions Disp Refills tiZANidine (ZANAFLEX) 2 mg tablet 60 tablet 2 Sig: take 1 to 3 tablets by mouth at bedtime if needed Patient last appointment: 09/29/2023 Next Appointment: 02/05/2024 Patient Phone numbers: [phone] (home) Request is for script(s) to be escript to pharmacy. Ashley Bedoya MA [facility]09-[facility]24 Miscellaneous Notes* Telephone Encounter - Ashley Bedoya MA - 11/21/2023 9:10 AM EDT Patient sent a [employer] message requesting the following refill. Requested Prescriptions Pending Prescriptions Disp Refills tiZANidine (ZANAFLEX) 2 mg tablet 60 tablet 2 Sig: take 1 to 3 tablets by mouth at bedtime if needed Patient last appointment: 09/29/2023 Next Appointment: 02/05/2024 Patient Phone numbers: [phone] (home) Request is for script(s) to be escript to pharmacy. Ashley Bedoya MA documented in this encounterTr[facility]24 Telephone encounter Note * Telephone Encounter - Ashley Bedoya MA - 11/21/2023 9:09 AM EDT Patient sent a [employer] message requesting the following refill. Requested Prescriptions Pending Prescriptions Disp Refills methotrexate 2.5 mg tablet 96 tablet 0 Sig: Take 8 tablets by mouth one time a week. Patient last appointment: 09/29/2023 Next Appointment: 11/20/2023 Patient Phone numbers: [phone] (home) Request is for script(s) to be escript to pharmacy. Ashley Bedoya MA [facility] Miscellaneous Notes* Telephone Encounter - Ashley Bedoya MA - 11/21/2023 9:09 AM EDT Patient sent a [employer] message requesting the following refill. Requested Prescriptions Pending Prescriptions Disp Refills methotrexate 2.5 mg tablet 96 tablet 0 Sig: Take 8 tablets by mouth one time a week. Patient last appointment: 09/29/2023 Next Appointment: 11/20/2023 Patient Phone numbers: [phone] (home) Request is for script(s) to be escript to pharmacy. Ashley Bedoya MA documented in this encounterTr[facility]24 Telephone encounter Note * Telephone Encounter - Ashley Bedoya MA - 11/02/2023 8:22 AM EDT Patient sent a MyChart message requesting the following refill. Requested Prescriptions Pending Prescriptions Disp Refills naproxen (NAPROSYN) 500 mg tablet 180 tablet 0 Sig: Take 1 tablet by mouth two times a day with meals. Patient last appointment: 09/29/2023 Next Appointment: 02/05/2024 Patient Phone numbers: [phone] (home) Request is for script(s) to be escript to pharmacy. Ashley Bedoya MA [facility] Miscellaneous Notes* Telephone Encounter - Ashley Bedoya MA - 11/02/2023 8:22 AM EDT Patient sent a [employer] message requesting the following refill. Requested Prescriptions Pending Prescriptions Disp Refills naproxen (NAPROSYN) 500 mg tablet 180 tablet 0 Sig: Take 1 tablet by mouth two times a day with meals. Patient last appointment: 09/29/2023 Next Appointment: 02/05/2024 Patient Phone numbers: [phone] (home) Request is for script(s) to be escript to pharmacy. Ashley Bedoya MA documented in this encounterTr[facility]24 Telephone encounter Note * Telephone Encounter - Ashley Bedoya MA - 10/16/2023 7:56 AM EDT Pharmacy sent a [employer] message requesting the following refill. Requested Prescriptions Pending Prescriptions Disp Refills hydrOXYchloroQUINE (PLAQUENIL) 200 mg tablet [Pharmacy Med Name: HYDROXYCHLOROQUINE 200 MG TAB] 90 tablet 0 Sig: take 1 tablet by mouth once daily Patient last appointment: 09/29/2023 Next Appointment: 02/05/2024 Patient Phone numbers: [phone] (home) Request is for script(s) to be escript to pharmacy. Ashley Bedoya MA [facility] Miscellaneous Notes* Telephone Encounter - Ashley Bedoya MA - 10/16/2023 7:56 AM EDT Pharmacy sent a [employer] message requesting the following refill. Requested Prescriptions Pending Prescriptions Disp Refills hydrOXYchloroQUINE (PLAQUENIL) 200 mg tablet [Pharmacy Med Name: HYDROXYCHLOROQUINE 200 MG TAB] 90 tablet 0 Sig: take 1 tablet by mouth once daily Patient last appointment: 09/29/2023 Next Appointment: 02/05/2024 Patient Phone numbers: [phone] (home) Request is for script(s) to be escript to pharmacy. Ashley Bedoya MA documented in this [facility]Tr[facility]08-[facility]-2024 Telephone encounter Note * Telephone Encounter - Ashley Bedoya MA - 10/13/2023 1:04 PM EDT Pharmacy sent a [employer] message requesting the following refill. Requested Prescriptions Pending Prescriptions Disp Refills folic acid 1 mg tablet 90 tablet 1 Sig: Take 1 tablet by mouth once daily. Patient last appointment: 09/29/2023 Next Appointment: 02/05/2024 Patient Phone numbers: [phone] (home) Request is for script(s) to be escript to pharmacy. Ashley Bedoya MA [facility]08-[facility]-2024 Miscellaneous Notes* Telephone Encounter - Ashley Bedoya MA - 10/13/2023 1:04 PM EDT Pharmacy sent a [employer] message requesting the following refill. Requested Prescriptions Pending Prescriptions Disp Refills folic acid 1 mg tablet 90 tablet 1 Sig: Take 1 tablet by mouth once daily. Patient last appointment: 09/29/2023 Next Appointment: 02/05/2024 Patient Phone numbers: [phone] (home) Request is for script(s) to be escript to pharmacy. Ashley Bedoya MA documented in this encounterTr[facility]07-26-2024 NoteHNO ID: [id number] Author: ROBERT FARIAS MD Service: ? Author Type: Physician Type: Progress Notes Filed: 01/20/2024 14:56 Note Text: This note was created using Resy Networkriter. Subjective Jaylin Carroll is a 63 year old female. I am good Back tweaked 2 week ago Was in [facility] Not sure what happened Then [address] worse Given diff muscle relaxer and now scan tolerate Yesterday was not able to move Flared back up No pain else Naproxen bid all the time Review of Systems Objective BP 173/83 (BP Site: Left Arm, BP Position: Sitting) Pulse 105 Temp 36.8 ?C (98.2 ?F) Ht 154.9 cm (5' 1) Wt 85 kg (187 lb 4.8 oz) BMI 35.39 kg/m? Physical Exam Vitals reviewed. Constitutional: General: She is not in acute distress. Appearance: She is not ill-appearing or toxic-appearing. Cardiovascular: Rate and Rhythm: Normal rate and regular rhythm. Heart sounds: No murmur heard. No friction rub. No gallop. Pulmonary: Effort: No respiratory distress. Breath sounds: Normal breath sounds. No stridor. No wheezing or rhonchi. Abdominal: General: There is no distension. Palpations: Abdomen is soft. There is no mass. Tenderness: There is no abdominal tenderness. Hernia: No hernia is present. Musculoskeletal: Right shoulder: Normal. Left shoulder: Normal. Right elbow: Normal. Left elbow: Normal. Right wrist: Normal. Left wrist: Normal. Right hand: Normal. Left hand: Normal. Cervical back: No rigidity or tenderness. Thoracic back: Normal. Lumbar back: Normal. Right hip: Normal. Left hip: Normal. Right knee: Normal. Left knee: Normal. Right lower leg: No edema. Left lower leg: No edema. Right ankle: Normal. Left ankle: Normal. Right foot: Normal. Left foot: Normal. Comments: Decreased range of motion Pain rt side spasm Lymphadenopathy: Cervical: No cervical adenopathy. Skin: Findings: No rash. 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 Mendes [place] [facility] [place] [facility] : 01/2020 last visit ( record reviewed and scanned) ( 2 miscarriages ,no DVT no Raynaud's Phenomenon , no serositis , no photosensitivity ) (sun burn easy ))))) TREATMENT Enbrel positive response 12/19 to 05/20 stopped insurance issue. OFF Simponi 2017 excellent response allergic reaction OFF Sulfa allergy : severe GI upset, no rash no angioedema OFF plaquenil 200 mg bid ( 2014 ) 06/2020 plaquenil 200 mg . (optha pending ) MTX 25 mg ( 5 am 5 pm ) ( started ) 06/19/2020 MTX 8 pill weekly . Renflexis 04/24 excellent response, 5mg/kg ( 7 week ) (02/2020 last infusion) 06/19/2020 resumed ( missed result of change in location ) insurance covering 02/24 fully covered next 02/26/2410/25 10.23 04/29 09/26 remission . Optha pending, ( working mon to Monday 5 pm ) wants some one open on sat, get labs Drug and disease monitoring 11/2019 wbc 3900 low cbc cmp normal 05/19/2020 cbc 4000 wbc cmp normal, chol 171 ldl 100 trig 63, HLD 58 08/14/2020 cbc hg 11.4 low cmp normal esr 2 mm 12/03/2020 esr 5 cmp cbc normal 07/25 cmp glu 156, cbc diff , ESR 2 mm. 11/25 esr 2 cmp cbc normal 05/20/22 cmp cbc normal esr 2 10/14/22 cbc diff cmp esr 2 mm 06/27 cbc cmp normal 09/22/23 cbc cmp normal Anemia 2023 nov 9.4/30.9 low (( not on NSAID ) hicks next visit . 02/21 Vit D 39 .11/2019 Vit D 41. 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 Knee OA bilateral : observe. 07/25 Toe pain 07/16/21 ( compression stocking ) 07/16/21 Right foot fx : 2019 pain off and on ( uses tennis shoe with good results ) Diabetes Mellitus Type II HTN Allergic Rhinitis and Allergic Conjunctivitis Fall allergy ( skin testing done past negative ) Asthma No atopic dermatitis 01/08/2021 Osteopenia 02/21 DXA -2.1 hip neck -1.9 total hip ( SC ) 03/28 DXA : L1, L2, L3 BMD is 0.91 g/cm2 -2.2 Right hip BMD is 0.89 -0.9 , Right femoral neck BMD is 0.82 g/cm2 -1.6... TT none 05/12/22 observe Pain mgt ( pain adv done ) 09/2020 Ultram 50 mg every 6 hour ( rare use with flare < 10 months ) last refill > 6 months ago. ( Rheum ) 10/02/2020 give her one week to deal with current flare. 10/25 off ultram Tylenol prn 10/25 ( weather related use, 500 mg pill 1 pills once a week ) 04/17/2023 Naproxen 500 mg bid prn 2014 started ( using 2-3 times week ) (more content not included)...[facility]07-26-2024 History of Present illness Narrative* Robert Farias MD - 09/29/2023 2:45 PM EDT This note was created using NoteWriter. Subjective Jaylin Carroll is a 63 year old female. I am good Back tweaked 2 week ago Was in [facility] Not sure what happened Then [address] worse Given diff muscle relaxer and now scan tolerate Yesterday was not able to move Flared back up No pain else Naproxen bid all the time Review of Systems Objective BP 173/83 (BP Site: Left Arm, BP Position: Sitting) Pulse 105 Temp 36.8 C (98.2 F) Ht 154.9 cm (5' 1) Wt 85 kg (187 lb 4.8 oz) BMI 35.39 kg/m Physical Exam Vitals reviewed. Constitutional: General: She is not in acute distress. Appearance: She is not ill-appearing or toxic-appearing. Cardiovascular: Rate and Rhythm: Normal rate and regular rhythm. Heart sounds: No murmur heard. No friction rub. No gallop. Pulmonary: Effort: No respiratory distress. Breath sounds: Normal breath sounds. No stridor. No wheezing or rhonchi. Abdominal: General: There is no distension. Palpations: Abdomen is soft. There is no mass. Tenderness: There is no abdominal tenderness. Hernia: No hernia is present. Musculoskeletal: Right shoulder: Normal. Left shoulder: Normal. Right elbow: Normal. Left elbow: Normal. Right wrist: Normal. Left wrist: Normal. Right hand: Normal. Left hand: Normal. Cervical back: No rigidity or tenderness. Thoracic back: Normal. Lumbar back: Normal. Right hip: Normal. Left hip: Normal. Right knee: Normal. Left knee: Normal. Right lower leg: No edema. Left lower leg: No edema. Right ankle: Normal. Left ankle: Normal. Right foot: Normal. Left foot: Normal. Comments: Decreased range of motion Pain rt side spasm Lymphadenopathy: Cervical: No cervical adenopathy. Skin: Findings: No rash. 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 Mendes [place] [facility] [place] [facility] : 01/2020 last visit ( record reviewed and scanned) ( 2 miscarriages ,no DVT no Raynaud's Phenomenon , no serositis , no photosensitivity ) (sun burn easy ))))) TREATMENT Enbrel positive response 12/19 to 05/20 stopped insurance issue. OFF Simponi 2017 excellent response allergic reaction OFF Sulfa allergy : severe GI upset, no rash no angioedema OFF plaquenil 200 mg bid ( 2014 ) 06/2020 plaquenil 200 mg . (optha pending ) MTX 25 mg ( 5 am 5 pm ) ( started ) 06/19/2020 MTX 8 pill weekly . Renflexis 04/24 excellent response, 5mg/kg ( 7 week ) (02/2020 last infusion) 06/19/2020 resumed ( missed result of change in location ) insurance covering 02/24 fully covered next 02/26/2410/25.04/29 remission . Optha pending, ( working mon to Monday 5 pm ) wants some one open on sat, get labs Drug and disease monitoring 02/21 Vit D 39 .11/2019 Vit D 41. 11/2019 wbc 3900 low cbc cmp normal 05/19/2020 cbc 4000 wbc cmp normal, chol 171 ldl 100 trig 63, HLD 58 08/14/2020 cbc hg 11.4 low cmp normal esr 2 mm 12/03/2020 esr 5 cmp cbc normal 07/25 cmp glu 156, cbc diff , ESR 2 mm. 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 Knee OA bilateral : observe. 07/25 Toe pain 07/16/21 ( compression stocking ) 07/16/21 Right foot fx : 2019 pain off and on ( uses tennis shoe with good results ) Diabetes Mellitus Type II HTN Allergic Rhinitis and Allergic Conjunctivitis Fall allergy ( skin testing done past negative ) Asthma No atopic dermatitis 01/08/2021 Osteopenia 02/21 DXA -2.1 hip neck -1.9 total hip ( SC ) 03/28 DXA : L1, L2, L3 BMD is 0.91 g/cm2 -2.2 Right hip BMD is 0.89 -0.9 , Right femoral neck BMD is0.82 g/cm2 -1.6... TT none 05/12/22 observe Pain mgt ( pain adv done ) 09/2020 Ultram 50 mg every 6 hour ( rare use with flare < 10 months ) last refill > 6 months ago. ( Rheum ) 10/02/2020 give her one week to deal with current flare. 10/25 off ultram Tylenol prn 10/25 ( weather related use, 500 mg pill 1 pills once a week ) 04/17/2023 Naproxen 500 mg bid prn 2014 started ( using 2-3 times week ) 04/17/2023 zanaflex 2 mg hs before 2020 ( only at night ) ( daily )) 04/17/2023 Brief Personal and family history: Gym 12/25 spending 1 hour to 90 min low impact. 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 ( leukemia age 43 ) 06/24 2 son in [facility] 06/19/2020 Brother 2 healthy 06/19/2020 3 sister healthy 06/19/2020 Mother 58 ( CHF cancer spinal from breast ) 06/19/2020 ( did not smoke ) Father brain aneurysm 67 06/19/2020 ( did smoke) 02/23 COVID cough, sneezing, sore throat, no temp etc . documented in this [facility]Tr[facility]07-10-2024 NoteHNO ID: [id number] Author: CHEYENNE GARCIA PA-C Service: ? Author Type: Physician Dictating Machine Transcriber Type: Progress Notes Filed: 09/13/2023 09:10 Note Text: Patient needs to keep follow up in September to continue treatment.[facility]07-10-2024 History of Present illness Narrative* Cheyenne Garcia PA-C - 09/13/2023 9:07 AM EDT Patient needs to keep follow up in September to continue treatment. documented in this encounterTr[facility]05-30-2024 Telephone encounter Note * Telephone Encounter - Deysi Fried - 08/03/2023 9:00 AM EDT [facility] Approved [id number] [facility]/Faxed 08.04.23-08.03.24 Deysi Mantilla, Case Management Associate [facility]05-30-2024 Miscellaneous Notes* Telephone Encounter - Deysi Fried - 08/03/2023 9:00 AM EDT [facility] Approved [id number] [facility]/Faxed 08.04.23-08.03.24 Deysi Mantilla, Case Management Associate documented in this encounterTrinity [facility]05-29-2024 Telephone encounter Note * Telephone Encounter - Ashley Bedoya MA - 08/02/2023 9:31 AM EDT Pharmacy sent a [employer] message requesting the following refill. Requested Prescriptions Pending Prescriptions Disp Refills methotrexate 2.5 mg tablet 96 tablet 0 Sig: Take 8 tablets by mouth one time a week. Patient last appointment: 04/17/2023 Next Appointment: 09/15/2023 Patient Phone numbers: [phone] (home) Request is for script(s) to be escript to pharmacy. Ashley Bedoya MA [facility]05-29-2024 Miscellaneous Notes* Telephone Encounter - Ashley Bedoya MA - 08/02/2023 9:31 AM EDT Pharmacy sent a [employer] message requesting the following refill. Requested Prescriptions Pending Prescriptions Disp Refills methotrexate 2.5 mg tablet 96 tablet 0 Sig: Take 8 tablets by mouth one time a week. Patient last appointment: 04/17/2023 Next Appointment: 09/15/2023 Patient Phone numbers: [phone] (home) Request is for script(s) to be escript to pharmacy. Ashley Bedoya MA documented in this encounterTr[facility]05-24-2024 History of Present illness Narrative* Robert Farias MD - 07/28/2023 10:55 AM EDT Noted Robert Farias MD documented in this encounterTrinity [facility]05-22-2024 Telephone encounter Note * Telephone Encounter - Ashley Bedoya MA - 07/26/2023 9:09 AM EDT Patient sent a The [employer] message requesting the following refill. Requested Prescriptions Pending Prescriptions Disp Refills naproxen (NAPROSYN) 500 mg tablet 180 tablet 0 Sig: Take 1 tablet by mouth two times a day with meals. hydrOXYchloroQUINE (PLAQUENIL) 200 mg tablet 30 tablet 2 Sig: Take 1 tablet by mouth once daily. tiZANidine (ZANAFLEX) 2 mg tablet 60 tablet 2 Patient last appointment: 04/16/2021 Next Appointment: 09/15/2023 Patient Phone numbers: [phone] (home) Request is for script(s) to be escript to pharmacy. Ashley Bedoya MA Patient wants 90 day supply as she will be on vacation. [facility]05-[facility] Miscellaneous Notes* Telephone Encounter - Ashley Bedoya MA - 07/26/2023 9:09 AM EDT Patient sent a [employer] message requesting the following refill. Requested Prescriptions Pending Prescriptions Disp Refills naproxen (NAPROSYN) 500 mg tablet 180 tablet 0 Sig: Take 1 tablet by mouth two times a day with meals. hydrOXYchloroQUINE (PLAQUENIL) 200 mg tablet 30 tablet 2 Sig: Take 1 tablet by mouth once daily. tiZANidine (ZANAFLEX) 2 mg tablet 60 tablet 2 Patient last appointment: 04/16/2021 Next Appointment: 09/15/2023 Patient Phone numbers: [phone] (home) Request is for script(s) to be escript to pharmacy. Ashley Bedoya MA Patient wants 90 day supply as she will be on vacation. documented in this encounterTr[facility]04-12-2024 Miscellaneous Notes* Addendum Note - Emiliano Nassar - 06/16/2023 2:16 PM EDTAddended by: EMILIANO NASSAR on: 06/16/2023 02:16 PM Modules accepted: Orders documented in this encounterTrinity [facility]04-02-2024 Miscellaneous Notes* Telephone Encounter - Brynn Fofana LPN - 06/06/2023 7:12 AM EDT Pharmacy faxed requesting the following refill Refill(s) Requested: Requested Prescriptions Pending Prescriptions Disp Refills methotrexate 2.5 mg tablet 96 tablet 0 Sig: Take 8 tablets by mouth one time a week. ALLERGIES Allergen Reactions Demerol [Meperidine] Other: See Comments Lowered blood pressure extremely low Sulfa (Sulfonamide * GI Upset Stomach pain severe (home) [phone] (cell) Last Office Visit Date: 04/16/2021 Last [facility] Visit: 04/17/2023 Future Appointment: 09/15/2023 The patients preferred pharmacy has been captured for this encounter? yes Request is for script(s) to be escript to pharmacy. Brynn Fofana LPN documented in this encounterTrinity [facility]03-04-2024 Miscellaneous Notes* Telephone Encounter - Pauly Weeks - 05/08/2023 3:31 PM EST Patient is scheduled. Pauly Weeks * Telephone Encounter - Ashley Bedoya MA - 05/08/2023 7:46 AM EST Pharmacy sent a [employer] message requesting the following refill. Requested Prescriptions Pending Prescriptions Disp Refills hydrOXYchloroQUINE (PLAQUENIL) 200 mg tablet [Pharmacy Med Name: HYDROXYCHLOROQUINE 200 MG TAB] 30 tablet 2 Sig: take 1 tablet by mouth once daily Patient last appointment: 04/17/2023 Next Appointment: Visit date not found Patient Phone numbers: [phone] (home) Request is for script(s) to be escript to pharmacy. Ashley Bedoya MA Needs 3 mth follow up documented in this encounterTrinity [facility]02-20-2024 Miscellaneous Notes* Telephone Encounter - Ashley Bedoya MA - 04/25/2023 10:00 AM EST Patient sent a Viable[employer] message requesting the following refill. Requested Prescriptions Pending Prescriptions Disp Refills naproxen (NAPROSYN) 500 mg tablet 180 tablet 0 Sig: Take 1 tablet by mouth two times a day with meals. Patient last appointment: 04/16/2021 Next Appointment: Visit date not found Patient Phone numbers: [phone] (home) Request is for script(s) to be escript to pharmacy. Ashley Bedoya MA documented in this encounterTrinity [facility]02-15-2024 Miscellaneous Notes* Telephone Encounter - Ashley Bedoya MA - 04/20/2023 10:34 AM EST Spoke to patient she will sign papers that she needs at the infusion center. Nothing for us to do. * Telephone Encounter - Elke MAYELIN Ramirez - 04/20/2023 10:34 AM EST ----- Message from Deysi Tate sent at 04/18/2023 1:02 PM EST ----- Regarding: FW: Anna/ [Maria Esther Farias MD]/ Message ----- Message ----- From: Dulce Rehman Sent: 04/18/2023 9:44 AM EST To: [facility] Triage Pool Subject: Anna/ [Maria Esther Farias MD]/ Message Subject Line Format: Anna/ [Maria Esther Farias MD]/ Message Patient: Jaylin Carroll Date of : 1960 Primary Care Provider: Edis Trejo DO Patient has been identified by name and Date of (Y/N): y Patient: Jaylin Carroll Date of : 1960 Provider for this encounter: Edis Trejo DO Reason for the call/escalation: Message Was Patient Referred to [facility]/Seek Emergency Treatment (Y/N): n Did Patient Agree (Y/N): n Was An Attempt Made To Transfer The Patient To The Office (Y/N): n Were You Able To Reach Someone At The Office (Y/N): n If Yes - Patient Was Transferred To (Caregivers Name): n If No - Which [facility] Leadership Sports Medicine Specialist Did You Speak With Regarding This Patient: n Was an appointment scheduled (Y/N): n Reason patient was requesting visit (RFV/signs and symptoms/diagnosis) : [facility] completed [facility] enrollment packet to be faxed back to [phone] Person calling if other than patient: yes Return call to if other than patient: yes Best contact number: Thank you, Dulce Rehman April 18, 2023 9:42 AM documented in this encounterTrinity [facility]02-12-2024 History of Present illness Narrative* Robert Farias MD - 04/17/2023 2:24 PM EST This note was created using NoteWriter. Subjective Jaylin Carroll is a 62 year old female. I am going good Aching in hand Not all the time Weather change and worse No swelling No major issue No sob No chest pain Gastric issue, bloating tummy ache Comes and goes will be seeing PCP in two visit No side effect with med No am stiffness Gets up and gets going Trying to get more exercise Going to pool two time a week Review of Systems Objective There were no vitals taken for this visit. Physical Exam Constitutional: General: She is not in acute distress. Appearance: She is not ill-appearing or toxic-appearing. Comments: No synovitis hand wrist Assessment and Plan First visit 06/19/2020 ( moved from [place] ) RA and wants treatment for that 06/24 RA ( RF 184, CCP 125 ) age 15 onset Quantiferon M. 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 Mendes [place] [facility] [place] [facility] : 01/2020 last visit ( record reviewed and scanned) ( 2 miscarriages ,no DVT no Raynaud's Phenomenon , no serositis , no photosensitivity ) (sun burn easy ))))) TREATMENT Enbrel positive response 12/19 to 05/20 stopped insurance issue. OFF Simponi 2017 excellent response allergic reaction OFF Sulfa allergy : severe GI upset, no rash no angioedema OFF plaquenil 200 mg bid ( 2014 ) 06/2020 plaquenil 200 mg . (optha pending ) MTX 25 mg ( 5 am 5 pm ) ( started ) 06/19/2020 MTX 8 pill weekly . Renflexis 04/24 excellent response, 5mg/kg ( 7 week ) (02/2020 last infusion) 06/19/2020 resumed ( missed result of change in location ) insurance covering 02/24 fully covered next 02/26/2410/25 10.04/29 remission . Optha pending, ( working mon to Monday 5 pm ) wants some one open on sat, get labs 04/17/2023 more physically active 30 lbs wt loss great. Remission get labs Drug and disease monitoring 02/21 Vit D 39 .11/2019 Vit D 41. 11/2019 wbc 3900 low cbc cmp normal 05/19/2020 cbc 4000 wbc cmp normal, chol 171 ldl 100 trig 63, HLD 58 08/14/2020 cbc hg 11.4 low cmp normal esr 2 mm 12/03/2020 esr 5 cmp cbc normal 07/25 cmp glu 156, cbc diff , ESR 2 mm. 11/25 esr 2 cmp cbc normal 05/20/22 cmp cbc normal esr 2 10/14/22 cbc diff cmp esr 2 mm Chronic low back pain 12/27 doing better. 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 Knee OA bilateral : observe. 07/25 Toe pain 07/16/21 ( compression stocking ) 07/16/21 Right foot fx : 2019 pain off and on ( uses tennis shoe with good results ) Diabetes Mellitus Type II HTN Allergic Rhinitis and Allergic Conjunctivitis Fall allergy ( skin testing done past negative ) Asthma No atopic dermatitis 01/08/2021 Osteopenia 02/21 DXA -2.1 hip neck -1.9 total hip ( SC ) 03/28 DXA : L1, L2, L3 BMD is 0.91 g/cm2 -2.2 Right hip BMD is 0.89 -0.9 , Right femoral neck BMD is0.82 g/cm2 -1.6... TT none 05/12/22 observe Pain mgt ( pain adv done ) 09/2020 Ultram 50 mg every 6 hour ( rare use with flare < 10 months ) last refill > 6 months ago. ( Rheum ) 10/02/2020 give her one week to deal with current flare. 10/25 off ultram Tylenol prn 10/25 ( weather related use, 500 mg pill 1 pills once a week ) 04/17/2023 Naproxen 500 mg bid prn 2014 started ( using 2-3 times week ) 04/17/2023 zanaflex 2 mg hs before 2020 ( only at night ) ( daily )) 04/17/2023 Brief Personal and family history: Gym 12/25 spending 1 hour to 90 min low impact. 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 ( leukemia age 43 ) 06/24 2 son in [facility] 06/19/2020 Brother 2 healthy 06/19/2020 3 sister healthy 06/19/2020 Mother 58 ( CHF cancer spinal from breast ) 06/19/2020 ( did not smoke ) Father brain aneurysm 67 06/19/2020 ( did smoke) 02/23 COVID cough, sneezing, sore throat, no temp etc . This is a virtual visit. It required patient provider interaction for the medical decision making as documented below . I have communicated my name and active licensure. The patient's identity and physical location wereverified at the time of this visit. Either the patient or their legal international account representative has been informed of the risks and benefits of -- and alternatives to -- treatment through a remote evaluation andconsents to proceed with the evaluation remotely. documented in this encounterTrinity [facility]11-29-2023 Miscellaneous Notes* Telephone Encounter - Ann Marie Frank MA - 02/01/2023 2:13 PM EST Patient sent a [employer] message requesting the following refill. Requested Prescriptions Pending Prescriptions Disp Refills hydrOXYchloroQUINE (PLAQUENIL) 200 mg tablet 30 tablet 2 Sig: Take 1 tablet by mouth once daily. methotrexate 2.5 mg tablet 96 tablet 0 Sig: Take 8 tablets by mouth one time a week. folic acid 1 mg tablet 90 tablet 1 Sig: Take 1 tablet by mouth once daily. tiZANidine (ZANAFLEX) 2 mg tablet 60 tablet 2 Sig: Take 1-3 tablets by mouth at bedtime as needed. naproxen (NAPROSYN) 500 mg tablet 180 tablet 0 Sig: Take 1 tablet by mouth two times a day with meals. Patient last appointment: 12/26/22 Next Appointment: 04/17/2023 Patient Phone numbers: [phone] (home) Request is for script(s) to be escript to pharmacy. Ann Marie Frank MA documented in this encounterTrinity Health System [facility] Campus11-09-2023 Miscellaneous Notes* Telephone Encounter - Bianca Kent - 01/12/2023 2:31 PM EST Summary: Renflexis copay I think this is in regards to her needing to reapply for next year. I haven't got any forms yet so I will have to give them a call. Please let me know if you get anything from them over the fax. Thanks!! * Telephone Encounter - Roverto West MA - 01/12/2023 1:20 PM EST Keke from [employer] called and stated they needed Renflexis order form. She said can call them back if there's any questions, . documented in this encounterTrinity Health System [facility] Campus11-07-2023 Miscellaneous Notes* Telephone Encounter - Roverto West MA - 01/10/2023 10:38 AM EST Pharmacy faxed requesting the following refill. Requested Prescriptions Pending Prescriptions Disp Refills naproxen (NAPROSYN) 500 mg tablet [Pharmacy Med Name: NAPROXEN 500 MG TABLET] 180 tablet 0 Sig: Take 1 tablet by mouth two times a day with meals. Patient last appointment: 04/16/2021 Next Appointment: 04/17/2023 Patient Phone numbers: [phone] (home) Request is for script(s) to be escript to pharmacy. Roverto West MA documented in this encounterTrinity Health System [facility] Campus10-23-2023 History of Present illness Narrative* Robert Farias MD - 12/26/2022 3:26 PM EDT This note was created using [employer] Network[employer]. Subjective Jaylin Carroll is a 62 year old female. Back was hurting and now is better Mild pains in the hand Some pain across the toes Am stiffness only in the back pain N sob No belly issue No chest pain No issue Going to Y and exercise and lot better 3 time a week Trying to build up to one hour Review of Systems Objective There were no vitals taken for this visit. Physical Exam Constitutional: General: She is not in acute distress. Appearance: She is not ill-appearing or toxic-appearing. Comments: Wrist hand no synovitis Assessment and Plan First visit 06/19/2020 ( moved from [place] ) RA and wants treatment for that 06/24 RA ( RF 184, CCP 125 ) age 15 onset Quantiferon M. 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 Mendes [place] [facility] [place] [facility] : 01/2020 last visit ( record reviewed and scanned) ( 2 miscarriages ,no DVT no Raynaud's Phenomenon , no serositis , no photosensitivity ) (sun burn easy ))))) TREATMENT Enbrel positive response 12/19 to 05/20 stopped insurance issue. OFF Simponi 2017 excellent response allergic reaction OFF Sulfa allergy : severe GI upset, no rash no angioedema OFF plaquenil 200 mg bid ( 2014 ) 06/2020 plaquenil 200 mg . (optha pending ) MTX 25 mg ( 5 am 5 pm ) ( started ) 06/19/2020 MTX 8 pill weekly . Renflexis 04/24 excellent response, 5mg/kg ( 7 week ) (02/2020 last infusion) 06/19/2020 resumed ( missed result of change in location ) insurance covering 02/24 fully covered next 01/20/2310/25 10. remission . Optha pending, ( working mon to Monday 5 pm ) wants some oneopen on sat, get labs Drug and disease monitoring 02/21 Vit D 39 .11/2019 Vit D 41. 11/2019 wbc 3900 low cbc cmp normal 05/19/2020 cbc 4000 wbc cmp normal, chol 171 ldl 100 trig 63, HLD 58 08/14/2020 cbc hg 11.4 low cmp normal esr 2 mm 12/03/2020 esr 5 cmp cbc normal 07/25 cmp glu 156, cbc diff , ESR 2 mm. 11/25 esr 2 cmp cbc normal 05/20/22 cmp cbc normal esr 2 10/14/22 cbc diff cmp esr 2 mm Chronic low back pain 12/27 doing better. 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 Knee OA bilateral : observe. 07/25 Toe pain 07/16/21 ( compression stocking ) 07/16/21 Right foot fx : 2019 pain off and on ( uses tennis shoe with good results ) Diabetes Mellitus Type II HTN Allergic Rhinitis and Allergic Conjunctivitis Fall allergy ( skin testing done past negative ) Asthma No atopic dermatitis 01/08/2021 Osteopenia 02/21 DXA -2.1 hip neck -1.9 total hip ( SC ) 03/28 DXA : L1, L2, L3 BMD is 0.91 g/cm2 -2.2 Right hip BMD is 0.89 -0.9 , Right femoral neck BMD is0.82 g/cm2 -1.6... TT none 05/12/22 observe Pain mgt ( pain adv done ) 09/2020 Ultram 50 mg every 6 hour ( rare use with flare < 10 months ) last refill > 6 months ago. ( Rheum ) 10/02/2020 give her one week to deal with current flare. 10/25 off ultram Tylenol prn 10/25 ( weather related use, 500 mg pill 1 pills once a week ) 10/22/21 Naproxen 500 mg bid prn 2014 started ( using 2-3 times week ) 10/25 zanaflex 2 mg hs 06/19/2020 ( only at night ) ( daily )) Brief Personal and family history: Gym 12/25 spending 1 hour to 90 min low impact. 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 ( leukemia age 43 ) 06/24 2 son in [facility] 06/19/2020 Brother 2 healthy 06/19/2020 3 sister healthy 06/19/2020 Mother 58 ( CHF cancer spinal from breast ) 06/19/2020 ( did not smoke ) Father brain aneurysm 67 06/19/2020 ( did smoke) 02/23 COVID cough, sneezing, sore throat, no temp etc . This is a virtual visit. It required patient provider interaction for the medical decision making as documented below . I have communicated my name and active licensure. The patient's identity and physical location wereverified at the time of this visit. Either the patient or their legal international account representative has been informed of the risks and benefits of -- and alternatives to -- treatment through a remote evaluation andconsents to proceed with the evaluation remotely. documented in this encounterTrinity Health [facility] Campus10-16-2023 Miscellaneous Notes* Telephone Encounter - Roverto West MA - 12/19/2022 2:05 PM EDT Patient sent a [employer] message requesting the following refill. Requested Prescriptions Pending Prescriptions Disp Refills tiZANidine (ZANAFLEX) 2 mg tablet 60 tablet 2 Sig: Take 1-3 tablets by mouth at bedtime as needed. Patient last appointment: Visit date not found Next Appointment: 12/26/2022 Patient Phone numbers: [phone] (home) Request is for script(s) to be escript to pharmacy. Roverto West MA * Telephone Encounter - Roverto West MA - 12/19/2022 2:04 PM EDTMessage [facility] Refills have been requested for the following medications: tiZANidine (ZANAFLEX) 2 mg tablet [Dr. Bradley Farias] Preferred pharmacy: [id number] [place] [address] - [address] [facility] [facility] [phone] Delivery method: Pickup documented in this encounterTrinity Health System [facility] Campus10-05-2023 Miscellaneous Notes* Telephone Encounter - Roverto West MA - 12/08/2022 9:16 AM EDT Pharmacy faxed requesting the following refill. Requested Prescriptions Pending Prescriptions Disp Refills folic acid 1 mg tablet [Pharmacy Med Name: FOLIC ACID 1 MG TABLET] 90 tablet 1 Sig: Take 1 tablet by mouth once daily. Patient last appointment: 04/16/2021 Next Appointment: 12/26/2022 Patient Phone numbers: [phone] (home) Request is for script(s) to be escript to pharmacy. Roverto West MA documented in this encounterTrinity Health System [facility] Campus10-04-2023 Miscellaneous Notes* Telephone Encounter - Roverto West MA - 12/07/2022 8:32 AM EDT Pharmacy faxed requesting the following refill. Requested Prescriptions Pending Prescriptions Disp Refills methotrexate 2.5 mg tablet [Pharmacy Med Name: METHOTREXATE 2.5 MG TABLET] 96 tablet 0 Sig: Take 8 tablets by mouth one time a week. Patient last appointment: 06/19/2020 Next Appointment: 12/26/2022 Patient Phone numbers: [phone] (home) Request is for script(s) to be escript to pharmacy. Roverto West MA documented in this encounterTrinity Health System [facility] Campus09-23-2023 History of Present illness Narrative* Robert Farias MD - 11/26/2022 7:02 PM EDT Merna Farias MD documented in this encounterTrinity Health System [facility] Campus09-08-2023 Miscellaneous Notes* Telephone Encounter - Roverto West MA - 11/11/2022 9:30 AM EDT Pharmacy faxed requesting the following refill. Requested Prescriptions Pending Prescriptions Disp Refills hydrOXYchloroQUINE (PLAQUENIL) 200 mg tablet [Pharmacy Med Name: HYDROXYCHLOROQUINE 200 MG TAB] 30 tablet 2 Sig: Take 1 tablet by mouth once daily. Patient last appointment: 04/16/2021 Next Appointment: 12/26/2022 Patient Phone numbers: [phone] (home) Request is for script(s) to be escript to pharmacy. Roverto West MA documented in this encounterTrinity Health System [facility] Campus08-28-2023 [facility]08-07-2023 Miscellaneous Notes* Telephone Encounter - Roverto West MA - 10/10/2022 11:08 AM EDT Pharmacy faxed requesting the following refill. Requested Prescriptions Pending Prescriptions Disp Refills naproxen (NAPROSYN) 500 mg tablet [Pharmacy Med Name: NAPROXEN 500 MG TABLET] 180 tablet 0 Sig: Take 1 tablet by mouth twice daily with meals. Patient last appointment: 04/16/2021 Next Appointment: 12/26/2022 Patient Phone numbers: [phone] (home) Request is for script(s) to be escript to pharmacy. Roverto West MA documented in this encounterTrinity Health System [facility] Campus07-12-2023 Miscellaneous Notes* Telephone Encounter - Roverto West MA - 09/14/2022 9:07 AM EDT Pharmacy faxed requesting the following refill. Requested Prescriptions Pending Prescriptions Disp Refills methotrexate 2.5 mg tablet [Pharmacy Med Name: METHOTREXATE 2.5 MG TABLET] 96 tablet 0 Sig: Take 8 tablets by mouth one time a week. Patient last appointment: 06/19/2020 Next Appointment: 12/26/2022 Patient Phone numbers: [phone] (home) Request is for script(s) to be escript to pharmacy. Roverto West MA documented in this encounterTrinity Health System [facility] Campus07-06-2023 Miscellaneous Notes* Telephone Encounter - Roverto West MA - 09/08/2022 1:35 PM EDT Pharmacy faxed requesting the following refill. Requested Prescriptions Pending Prescriptions Disp Refills tiZANidine (ZANAFLEX) 2 mg tablet [Pharmacy Med Name: TIZANIDINE HCL 2 MG TABLET] 60 tablet 2 Sig: Take 1-3 tablets by mouth at bedtime as needed. Patient last appointment: Visit date not found Next Appointment: 12/26/2022 Patient Phone numbers: [phone] (home) Request is for script(s) to be escript to pharmacy. Roverto West MA documented in this encounterTrinity Health System [facility] Campus06-30-2023 History of Present illness Narrative* Robert Farias MD - 09/02/2022 3:12 PM EDT This note was created using [employer] Network[employer]. Subjective Jaylin Carroll is a 62 year old female. I am good Fall about one months ago Hurt shoulder Tripped over the dog Fall on the hand Hurt pop Painful range of motion full range of motion Fall forward Was coming down steps Was on the last step down I am doing good Right foot past fx and pain in it at time Tennis shoes and help Cannot wear sandles Review of Systems Constitutional: Negative for fatigue. Respiratory: Negative. Cardiovascular: Negative. Objective There were no vitals taken for this visit. Physical Exam Constitutional: General: She is not in acute distress. Appearance: She is not ill-appearing or toxic-appearing. Comments: Shoulder both full range of motion Wrist hand no clear synovitis is noted Assessment and Plan First visit 06/19/2020 ( moved [place] ) RA and wants treatment for that 06/24 RA ( RF 184, CCP 125 ) age 15 onset Quantiferon M. 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 Mendes [place] [place] [facility] : 01/2020 last visit ( record reviewed and scanned) ( 2 miscarriages ,no DVT no Raynaud's Phenomenon , no serositis , no photosensitivity ) (sun burn easy ))))) TREATMENT Enbrel positive response 12/19 to 05/20 stopped insurance issue. OFF Simponi 2017 excellent response allergic reaction OFF Sulfa allergy : severe GI upset, no rash no angioedema OFF plaquenil 200 mg bid ( 2014 ) 06/2020 plaquenil 200 mg . (optha pending ) MTX 25 mg ( 5 am 5 pm ) ( started ) 06/19/2020 MTX 8 pill weekly . Renflexis 04/24 excellent response, 5mg/kg ( 7 week ) (02/2020 last infusion) 06/19/2020 resumed ( missed result of change in location ) insurance covering 02/24 fully covered 10/25 02/24 05/26 08/26 remission . Optha pending, get optha . Get labs Drug and disease monitoring 02/21 Vit D 39 .11/2019 Vit D 41. 11/2019 wbc 3900 low cbc cmp normal 05/19/2020 cbc 4000 wbc cmp normal, chol 171 ldl 100 trig 63, HLD 58 08/14/2020 cbc hg 11.4 low cmp normal esr 2 mm 12/03/2020 esr 5 cmp cbc normal 07/25 cmp glu 156, cbc diff , ESR 2 mm. 11/25 esr 2 cmp cbc normal 05/20/22 cmp cbc normal esr 2 Chronic low back pain zanaflex helped 06/19/2020 06/19/2020 controlled observe keep same med. 02/24 gym and better. 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 Knee OA bilateral : observe. 07/25 Toe pain 07/16/21 ( compression stocking ) 07/16/21 Right foot fx : 2019 pain off and on ( uses tennis shoe with good results ) Diabetes Mellitus Type II HTN Allergic Rhinitis and Allergic Conjunctivitis Fall allergy ( skin testing done past negative ) Asthma No atopic dermatitis 01/08/2021 Osteopenia 02/21 DXA -2.1 hip neck -1.9 total hip ( SC ) 03/28 DXA : L1, L2, L3 BMD is 0.91 g/cm2 -2.2 Right hip BMD is 0.89 -0.9 , Right femoral neck BMD is0.82 g/cm2 -1.6... TT none 05/12/22 observe Pain mgt ( pain adv done ) 09/2020 Ultram 50 mg every 6 hour ( rare use with flare < 10 months ) last refill > 6 months ago. ( Rheum ) 10/02/2020 give her one week to deal with current flare. 10/25 off ultram Tylenol prn 10/25 ( weather related use, 500 mg pill 1 pills once a week ) 10/22/21 Naproxen 500 mg bid prn 2014 started ( using 2-3 times week ) 10/25 zanaflex 2 mg hs 06/19/2020 ( only at night ) ( daily )) Brief Personal and family history: Gym 12/25 spending 1 hour to 90 min low impact. 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 ( leukemia age 43 ) 06/24 2 son in [facility] 06/19/2020 Brother 2 healthy 06/19/2020 3 sister healthy 06/19/2020 Mother 58 ( CHF cancer spinal from breast ) 06/19/2020 ( did not smoke ) Father brain aneurysm 67 06/19/2020 ( did smoke) 02/23 COVID cough, sneezing, sore throat, no temp etc . This is a virtual visit. It required patient provider interaction for the medical decision making as documented below . I have communicated my name and active licensure. The patient's identity and physical location wereverified at the time of this visit. Either the patient or their legal international account representative has been informed of the risks and benefits of -- and alternatives to -- treatment through a remote evaluation andconsents to proceed with the evaluation remotely. documented in this encounterTrinity Health System [facility]06-21-2023 History of Present illness Narrative* Robert Farias MD - 08/24/2022 6:30 PM EDT Noted Robert Farias MD documented in this encounterTrinity Health System [facility] Campus06-07-2023 Miscellaneous Notes* Telephone Encounter - Roverto West MA - 08/10/2022 3:31 PM EDT Pharmacy faxed requesting the following refill. Requested Prescriptions Pending Prescriptions Disp Refills hydrOXYchloroQUINE (PLAQUENIL) 200 mg tablet [Pharmacy Med Name: HYDROXYCHLOROQUINE 200 MG TAB] 30 tablet 2 Sig: Take 1 tablet by mouth once daily. Patient last appointment: 04/16/2021 Next Appointment: 09/02/2022 Patient Phone numbers: [phone] (home) Request is for script(s) to be escript to pharmacy. Roverto West MA documented in this encounterTrinity Health System [facility] Campus04-27-2023 History of Present illness Narrative* Robert Farias MD - 06/30/2022 8:36 PM EDT Noted Robert Farias MD documented in this encounterTrinity Health System [facility] Campus04-26-2023 Miscellaneous Notes* Telephone Encounter - Roverto West MA - 06/29/2022 11:16 AM EDT Pharmacy faxed requesting the following refill. Requested Prescriptions Pending Prescriptions Disp Refills tiZANidine (ZANAFLEX) 2 mg tablet [Pharmacy Med Name: TIZANIDINE HCL 2 MG TABLET] 60 tablet 2 Sig: TAKE 1 TO 3 TABLETS BY MOUTH AT BEDTIME NEEDED Patient last appointment: Visit date not found Next Appointment: 09/02/2022 Patient Phone numbers: [phone] (home) Request is for script(s) to be escript to pharmacy. Roverto West MA documented in this encounterTrinity Health System [facility] Campus04-18-2023 Miscellaneous Notes* Telephone Encounter - Roverto West MA - 06/21/2022 1:56 PM EDT Pharmacy faxed requesting the following refill. Requested Prescriptions Pending Prescriptions Disp Refills methotrexate 2.5 mg tablet [Pharmacy Med Name: METHOTREXATE 2.5 MG TABLET] 96 tablet 0 Sig: Take 8 tablets by mouth every Monday. Patient last appointment: 06/19/2020 Next Appointment: 09/02/2022 Patient Phone numbers: [phone] (home) Request is for script(s) to be escript to pharmacy. Roverto West MA documented in this encounterTrinity Health System [facility] Campus04-07-2023 Miscellaneous Notes* Telephone Encounter - Brynn Fofana LPN - 06/10/2022 10:41 AM EDT Pharmacy faxed requesting the following refill Refill(s) Requested: Requested Prescriptions Pending Prescriptions Disp Refills folic acid 1 mg tablet [Pharmacy Med Name: FOLIC ACID 1 MG TABLET] 90 tablet 1 Sig: TAKE 1 TABLET BY MOUTH EVERY DAY ALLERGIES Allergen Reactions Demerol [Meperidine] Other: See Comments Lowered blood pressure extremely low Sulfa (Sulfonamide * GI Upset Stomach pain severe (home) [phone] (cell) Last Office Visit Date: 04/16/2021 Last [facility] Visit: 05/12/2022 Future Appointment: Visit date not found The patients preferred pharmacy has been captured for this encounter? yes Request is for script(s) to be escript to pharmacy. Brynn Fofana LPN documented in this encounterTrinity Health System [facility] Campus03-09-2023 Miscellaneous Notes* Telephone Encounter - Roverto West MA - 05/12/2022 11:48 AM EST Pharmacy faxed requesting the following refill. Requested Prescriptions Pending Prescriptions Disp Refills hydrOXYchloroQUINE (PLAQUENIL) 200 mg tablet [Pharmacy Med Name: HYDROXYCHLOROQUINE 200 MG TAB] 30 tablet 2 Sig: Take 1 tablet by mouth once daily. Patient last appointment: 04/16/2021 Next Appointment: 05/12/2022 Patient Phone numbers: [phone] (home) Request is for script(s) to be escript to pharmacy. Roverto West MA documented in this encounterTr[facility]02-27-2023 Miscellaneous Notes* Telephone Encounter - Roverto West MA - 05/02/2022 11:46 AM EST Pharmacy faxed requesting the following refill. Requested Prescriptions Pending Prescriptions Disp Refills tiZANidine (ZANAFLEX) 2 mg tablet [Pharmacy Med Name: TIZANIDINE HCL 2 MG TABLET] 60 tablet 2 Sig: TAKE 1 TO 3 TABLETS BY MOUTH AT BEDTIME NEEDED Patient last appointment: Visit date not found Next Appointment: 05/12/2022 Patient Phone numbers: [phone] (home) Request is for script(s) to be escript to pharmacy. Roverto West MA documented in this encounterTrinity [facility]02-08-2023 Miscellaneous Notes* Telephone Encounter - Roverto West MA - 04/13/2022 10:19 AM EST Pharmacy faxed requesting the following refill. Requested Prescriptions Pending Prescriptions Disp Refills naproxen (NAPROSYN) 500 mg tablet [Pharmacy Med Name: NAPROXEN 500 MG TABLET] 180 tablet 1 Sig: TAKE 1 TABLET BY MOUTH TWICE A DAY WITH MEALS Patient last appointment: 04/16/2021 Next Appointment: 05/12/2022 Patient Phone numbers: [phone] (home) Request is for script(s) to be escript to pharmacy. Roverto West MA documented in this encounterTr[facility]01-26-2023 History of Present illness Narrative* RT Alan(R) - 03/31/2022 9:30 AM EST Radiology Service Progress Note PATIENT NAME: Jaylin Carroll DATE OF SERVICE: March 31, 2022 TIME: 9:36 AM PATIENT IDENTITY VERIFICATION COMPLETED USING TWO (2) IDENTIFIERS: Name and Date of confirmedby patient verbally and Name and Date of confirmed by identification band. FALL SCREENING: Has the patient had 2 falls in the last year or 1 fall with injury or currently using an Ambulatory Assistive Device (Walker, Cane, Wheelchair, Crutches, etc.)? No PATIENT GENDER DATA: Female. status: : No status: NO. PATIENT RELEVANT IMPLANT DATA REVIEWED: Not Applicable RADIOLOGY DEPARTMENT: Bone Density PERIPHERAL IV DATA: Not applicable SIGNED BY: RT Alan(R) March 31, 2022 9:36 AM documented in this encounterTrinity [facility]01-25-2023 Miscellaneous Notes* Telephone Encounter - Roverto West MA - 03/30/2022 1:24 PM EST Pharmacy faxed requesting the following refill. Requested Prescriptions Pending Prescriptions Disp Refills methotrexate 2.5 mg tablet [Pharmacy Med Name: METHOTREXATE 2.5 MG TABLET] 96 tablet 0 Sig: TAKE 8 TABLETS BY MOUTH EVERY MONDAY. Patient last appointment: 06/19/2020 Next Appointment: 05/12/2022 Patient Phone numbers: [phone] (home) Request is for script(s) to be escript to pharmacy. Roverto West MA documented in this encounterTrinity [facility]12-30-2022 Miscellaneous Notes* Telephone Encounter - Roverto West MA - 03/04/2022 2:16 PM EST Pharmacy faxed requesting the following refill. Requested Prescriptions Pending Prescriptions Disp Refills tiZANidine (ZANAFLEX) 2 mg tablet [Pharmacy Med Name: TIZANIDINE HCL 2 MG TABLET] 60 tablet 2 Sig: TAKE 1 TO 3 TABLETS BY MOUTH AT BEDTIME NEEDED Patient last appointment: Visit date not found Next Appointment: 05/12/2022 Patient Phone numbers: [phone] (home) Request is for script(s) to be escript to pharmacy. Roverto West MA documented in this encounterTrinity [facility]12-12-2022 Miscellaneous Notes* Telephone Encounter - Brynn Fofana LPN - 02/14/2022 3:12 PM EST Pharmacy faxed requesting the following refill. Requested Prescriptions Pending Prescriptions Disp Refills tiZANidine (ZANAFLEX) 2 mg tablet [Pharmacy Med Name: TIZANIDINE HCL 2 MG TABLET] 60 tablet 0 Sig: TAKE 1 TO 3 TABLETS BY MOUTH AT BEDTIME NEEDED Patient last appointment: 02/04/2022 virtual Next Appointment: 05/12/2022 Patient Phone numbers: [phone] (home) Request is for script(s) to be escript to pharmacy. Brynn Fofana LPN documented in this encounterTrinity [facility]12-05-2022 Miscellaneous Notes* Telephone Encounter - Brynn Fofana LPN - 02/07/2022 3:04 PM EST Pharmacy faxed requesting the following refill. Requested Prescriptions Pending Prescriptions Disp Refills hydrOXYchloroQUINE (PLAQUENIL) 200 mg tablet 30 tablet 2 Sig: Take 1 tablet by mouth once daily. Patient last appointment: 02/04/2022 virtual Next Appointment: 05/12/2022 Patient Phone numbers: [phone] (home) Request is for script(s) to be escript to pharmacy. Brynn Fofana LPN documented in this encounterTrinity Health [facility]12-02-2022 Instructions* Patient Instructions* Robert Farias MD - 02/04/2022 3:08 PM EST BONE MINERAL DENSITY PATIENT INSTRUCTIONS Bone mineral density testing measures the amount of calcium in certain parts of your bones. This information determines how strong your bones are. The test is used to detect osteoporosis, a disease in which the bone's mineral content and density are low, increasing a person's risk of fractures. Thelumbar spine (lower back) and the hip are the skeletal sites usually examined. For the test, remember that: 1. You cannot take this test if you are . 2. Eat a normal diet on the day of the test. 3. Take your medications as you normally would. 4. DO NOT take calcium supplements (such as Tums) for 24 hours before the test. 5. On the day of the test, leave valuables (jewelry or credit cards) at home. 6. The test should be performed prior to oral, rectal or IV contrast studies, or at least 7 days after any of these studies. For the test, you may be asked to wear a hospital gown. You will lie on your back, on a padded table, in a comfortable position. Generally, you can resume your usual activities immediately. documented in this encounterTrinity Health [facility] Campus12-01-2022 History of Present illness Narrative* Robert Farias MD - 02/03/2022 8:01 PM EST This note was created using Resy Networkriter. Subjective Jaylin Carroll is a 61 year old female. This is a virtual visit. It required patient provider interaction for the medical decision making as documented below . Hand pain flare Weather now evened out and this is better No side effect with current med 1-2 hour stiffness Going to gym and that is helping Hip pain and going to gym twice a week Stretching and is doing better Not as bad in am like before Review of Systems Objective There were no vitals taken for this visit. Physical Exam Constitutional: General: She is not in acute distress. Appearance: She is not ill-appearing or toxic-appearing. Assessment and Plan First visit 06/19/2020 ( moved from [place] ) RA and wants treatment for that 06/24 RA ( RF 184, CCP 125 ) age 15 onset Quantiferon M. 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 Mendes [place] [facility] [place] [facility] : 01/2020 last visit ( record reviewed and scanned) ( 2 miscarriages ,no DVT no Raynaud's Phenomenon , no serositis , no photosensitivity ) (sun burn easy ) TREATMENT Enbrel positive response 12/19 to 05/20 stopped insurance issue. OFF Simponi 2017 excellent response allergic reaction OFF Sulfa allergy : severe GI upset, no rash no angioedema OFF plaquenil 200 mg bid ( 2014 ) 06/19/2020 plaquenil 200 mg daily.. (optha pending ) MTX 25 mg ( 5 am 5 pm ) ( started ) 06/19/2020 MTX 8 pill weekly . Renflexis 04/24 excellent response, 5mg/kg ( 7 week ) (02/2020 last infusion) 06/19/2020 resumed ( missed result of change in location ) insurance covering 02/24 fully covered 10/25 02/22 remission . Get labs Drug and disease monitoring 02/21 Vit D 39 .11/2019 Vit D 41. 11/2019 wbc 3900 low cbc cmp normal 05/19/2020 cbc 4000 wbc cmp normal, chol 171 ldl 100 trig 63, HLD 58 08/14/2020 cbc hg 11.4 low cmp normal esr 2 mm 12/03/2020 esr 5 cmp cbc normal 07/25 cmp glu 156, cbc diff , ESR 2 mm. 11/25 esr 2 cmp cbc normal Chronic low back pain zanaflex helped 06/19/2020 06/19/2020 controlled observe keep same med. 02/24 gym and better. 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 07/25 Toe pain 07/16/21 ( compression stocking ) 07/16/21 Diabetes Mellitus Type II HTN Allergic Rhinitis and Allergic Conjunctivitis Fall allergy ( skin testing done past negative ) Asthma No atopic dermatitis 01/08/2021 Osteopenia 02/21 DXA -2.1 hip neck -1.9 total hip ( SC ) TT none 02/24 get DXA Pain mgt ( pain adv done ) 09/2020 Ultram 50 mg every 6 hour ( rare use with flare < 10 months ) last refill > 6 months ago. ( Rheum ) 10/02/2020 give her one week to deal with current flare. 10/25 off ultram Tylenol prn 10/25 ( weather related use, 500 mg pill 1 pills once a week ) 10/22/21 Naproxen 500 mg bid prn 2014 started ( using 2-3 times week ) 10/25 zanaflex 2 mg hs 06/19/2020 ( only at night ) ( daily )) Brief Personal and family history: Gym 12/25 spending 1 hour to 90 min low impact. 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 ( leukemia age 43 ) 06/24 2 son in [facility] 06/19/2020 Brother 2 healthy 06/19/2020 3 sister healthy 06/19/2020 Mother 58 ( CHF cancer spinal from breast ) 06/19/2020 ( did not smoke ) Father brain aneurysm 67 06/19/2020 ( did smoke) COVID Moderna 01/2021 (3) done 02/23 COVID cough, sneezing, sore throat, no temp etc . documented in this encounterTrinity [facility]11-17-2022 Miscellaneous Notes* Telephone Encounter - Brynn Fofana LPN - 01/20/2022 3:41 PM EST Area Coordinator from [employer] calls today and leaves reference # of [id number] in regards to renflexis. Asked for call back at [phone]. Brynn Fofana LPN documented in this encounterTrinity [facility]11-17-2022 Miscellaneous Notes* Telephone Encounter - Roverto West MA - 01/20/2022 2:28 PM EST Pharmacy faxed requesting the following refill. Requested Prescriptions Pending Prescriptions Disp Refills tiZANidine (ZANAFLEX) 2 mg tablet [Pharmacy Med Name: TIZANIDINE HCL 2 MG TABLET] 60 tablet 0 Sig: TAKE 1 TO 3 TABLETS BY MOUTH AT BEDTIME NEEDED Patient last appointment: Visit date not found Next Appointment: 02/04/2022 Patient Phone numbers: [phone] (home) Request is for script(s) to be escript to pharmacy. Roverto West MA documented in this encounterTrinity [facility]11-09-2022 Miscellaneous Notes* Telephone Encounter - Roverto West MA - 01/12/2022 2:49 PM EST Pharmacy faxed requesting the following refill. Requested Prescriptions Pending Prescriptions Disp Refills methotrexate 2.5 mg tablet 96 tablet 0 Sig: Take 8 tablets by mouth every Monday. Patient last appointment: 06/19/2020 Next Appointment: 02/04/2022 Patient Phone numbers: [phone] (home) Request is for script(s) to be escript to pharmacy. Roverto West MA documented in this encounterTrinity [facility]10-31-2022 History of Present illness Narrative* Robert Farias MD - 01/03/2022 2:40 PM EDT Noted Robert Farias MD documented in this encounterTrinity [facility]10-21-2022 Miscellaneous Notes* Telephone Encounter - Roverto West MA - 12/24/2021 9:43 AM EDT Pharmacy faxed requesting the following refill. Requested Prescriptions Pending Prescriptions Disp Refills tiZANidine (ZANAFLEX) 2 mg tablet [Pharmacy Med Name: TIZANIDINE HCL 2 MG TABLET] 60 tablet 1 Sig: TAKE 1 TO 3 TABLETS BY MOUTH AT BEDTIME NEEDED Patient last appointment: Visit date not found Next Appointment: 02/04/2022 Patient Phone numbers: [phone] (home) Request is for script(s) to be escript to pharmacy. Roverto West MA documented in this encounterTrinity Health [facility] Campus10-12-2022 Miscellaneous Notes* Telephone Encounter - Roverto West MA - 12/15/2021 12:08 PM EDT Pharmacy faxed requesting the following refill. Requested Prescriptions Pending Prescriptions Disp Refills folic acid 1 mg tablet [Pharmacy Med Name: FOLIC ACID 1 MG TABLET] 90 tablet 1 Sig: TAKE 1 TABLET BY MOUTH EVERY DAY Patient last appointment: 04/16/2021 Next Appointment: 02/04/2022 Patient Phone numbers: [phone] (home) Request is for script(s) to be escript to pharmacy. Roverto West MA documented in this encounterTrinity [facility]09-09-2022 History of Present illness Narrative* Robert Farias MD - 11/12/2021 7:14 AM EDT noted documented in this encounterTrinity Health [facility] Campus08-19-2022 History of Present illness Narrative* Robert Farias MD - 10/22/2021 2:30 PM EDT This note was created using EveryRack. Subjective Jaylin Carroll is a 61 year old female. 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 Walks around better During work also tends to walk around to get rid of stiffness Not with side effect with med Asthma Seeing PCP Flared with pollen etc. Review of Systems Respiratory: Positive for shortness of breath. Cardiovascular: Negative. Objective Blood Pressure 169/97 Pulse 84 Temperature 36.7 C (98.1 F) (Temporal) Height 154.9 cm (5' 1) Weight 92.7 kg (204 lb 4.8 oz) Body Mass Index 38.60 kg/m Physical Exam Vitals reviewed. Constitutional: General: She is not in acute distress. Appearance: She is not ill-appearing or toxic-appearing. Cardiovascular: Rate and Rhythm: Normal rate and regular rhythm. Heart sounds: Normal heart sounds. No murmur heard. No friction rub. No gallop. Pulmonary: Effort: No respiratory distress. Breath sounds: No stridor. No wheezing or rhonchi. Abdominal: General: There is no distension. Palpations: Abdomen is soft. There is no mass. Tenderness: There is no abdominal tenderness. Hernia: No hernia is present. Musculoskeletal: Right shoulder: Normal. Left shoulder: Normal. Right elbow: Normal. Left elbow: Normal. Right wrist: Normal. Left wrist: Normal. Right hand: Normal. Left hand: Normal. Cervical back: No rigidity or tenderness. Thoracic back: Normal. Lumbar back: Normal. Right hip: Normal. Left hip: Normal. Right knee: Normal. Left knee: Normal. Right ankle: Normal. Left ankle: Normal. Right foot: Normal. Left foot: Normal. Comments: There is no evidence on exam of synovitis, enthesitis, and hypermobility / tenderness. Lymphadenopathy: Cervical: No cervical adenopathy. Assessment and Plan First visit 06/19/2020 ( moved from [place] ) RA and wants treatment for that RA ( RF 184, CCP 125 ) age 15 onset Quantiferon M. 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 Mendes [place] [facility] [place] [facility] : 01/2020 last visit ( record reviewed and scanned) ( 2 miscarriages ,no DVT no Raynaud's Phenomenon , no serositis , no photosensitivity ) (sun burn easy ) TREATMENT Enbrel positive response 12/19 to 05/20 stopped insurance issue. OFF Simponi 2017 excellent response allergic reaction OFF Sulfa allergy : severe GI upset, no rash no angioedema OFF plaquenil 200 mg bid ( 2014 ) 06/19/2020 plaquenil 200 mg daily.. MTX 25 mg ( 5 am 5 pm ) ( started ) 06/19/2020 MTX 8 pill weekly . Renflexis 04/24 excellent response, 5mg/kg ( 7 week ) (02/2020 last infusion) 06/19/2020 resumed ( missed result of change in location ) insurance covering 10/25 remission Drug and disease monitoring 02/21 Vit D 39 .11/2019 Vit D 41. 11/2019 wbc 3900 low cbc cmp normal 05/19/2020 cbc 4000 wbc cmp normal, chol 171 ldl 100 trig 63, HLD 58 08/14/2020 cbc hg 11.4 low cmp normal esr 2 mm 12/03/2020 esr 5 cmp cbc normal 07/25 cmp glu 156, cbc diff , ESR 2 mm. Chronic low back pain zanaflex helped 06/19/2020 06/19/2020 controlled observe keep same med. 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 07/25 Toe pain 07/16/21 ( compression stocking ) 07/16/21 Diabetes Mellitus Type II HTN Allergic Rhinitis and Allergic Conjunctivitis Fall allergy ( skin testing done past negative ) Asthma No atopic dermatitis 01/08/2021 Osteopenia 02/21 DXA -2.1 hip neck -1.9 total hip Pain mgt ( pain adv done ) 09/2020 Ultram 50 mg every 6 hour ( rare use with flare < 10 months ) last refill > 6 months ago. ( Rheum ) 10/02/2020 give her one week to deal with current flare. 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 ( leukemia age 43 ) 2 son in [facility] 06/19/2020 Brother 2 healthy 06/19/2020 3 sister healthy 06/19/2020 Mother 58 ( CHF cancer spinal from breast ) 06/19/2020 ( did not smoke ) Father brain aneurysm 67 06/19/2020 ( did smoke) COVID Moderna 01/2021 (3) done 02/23 COVID cough, sneezing, sore throat, no temp etc . documented in this encounterTrinity [facility]08-12-2022 Miscellaneous Notes* Telephone Encounter - Tia Carcamo MA - 10/15/2021 8:31 AM EDT Pharmacy faxed requesting the following refill. Requested Prescriptions Pending Prescriptions Disp Refills naproxen (NAPROSYN) 500 mg tablet [Pharmacy Med Name: NAPROXEN 500 MG TABLET] 180 tablet 1 Sig: TAKE 1 TABLET BY MOUTH TWICE A DAY WITH MEALS Patient last appointment: 04/16/2021 Next Appointment: 10/22/2021 Patient Phone numbers: [phone] (home) Request is for script(s) to be escript to pharmacy. Tia Carcamo MA documented in this encounterTrinity Health [facility] Campus07-27-2022 Miscellaneous Notes* Telephone Encounter - Brynn Fofana LPN - 09/29/2021 9:47 AM EDT Med had to be called into pts pharmacy- That was done for one 30 g tube to [facility] in [place]. Pt has been notified that cream is to be applied one hour prior to infusion around port site and cover with an occlusive drsg for skin anesthesia and voiced understanding. Brynn Fofana LPN * Telephone Encounter - Brynn Fofana LPN - 09/29/2021 9:06 AM EDT Med needs called in to pharm Brynn Fofana LPN documented in this encounterTrinity [facility] Campus07-26-2022 Miscellaneous Notes* Addendum Note - Brynn Fofana LPN - 09/28/2021 2:30 PM EDT Addended by: BRYNN FOFANA on: 09/28/2021 02:30 PM Modules accepted: Orders * Telephone Encounter - Brynn Fofana LPN - 09/28/2021 2:22 PM EDT Order would be for Emla cream and that has been pended to this encounter Brynn Fofana LPN * Telephone Encounter - Brynn Fofana LPN - 09/28/2021 1:37 PM EDT Pt is asking for lidocaine cream that could be placed to port site that would make upcoming infusion more comfortable. This was suggested by infusion staff. Sent message to [place] infusion staff to seetheir recommendation Brynn Fofana LPN documented in this encounterTrinity Health [facility] Campus07-08-2022 Miscellaneous Notes* Telephone Encounter - Brynn Fofana LPN - 09/10/2021 12:50 PM EDT Pharmacy faxed requesting the following refill. Pending Prescriptions Disp Refills TIZANIDINE 2 MG TABLET Sig: TAKE 1-3 TABLETS AT BEDTIME NEEDED BETTY: No Patient last appointment: 07/16/2021 Next Appointment: 10/22/2021 Patient Phone numbers: [phone] (home) Request is for script(s) to be escript to pharmacy. Brynn Fofana LPN documented in this encounterTrinity Health [facility] Campus06-13-2022 Miscellaneous Notes* Telephone Encounter - Tia Carcamo MA - 08/16/2021 9:40 AM EDT Pharmacy faxed requesting the following refill. Pending Prescriptions Disp Refills FOLIC ACID 1 MG TABLET 30 tablet 5 Sig: TAKE 1 TABLET BY MOUTH EVERY DAY BETTY: No Patient last appointment: 04/16/2021 Next Appointment: 10/22/2021 Patient Phone numbers: [phone] (home) Request is for script(s) to be escript to pharmacy. Tia Carcamo MA documented in this encounterTrinity [facility] Campus06-08-2022 Miscellaneous Notes* Telephone Encounter - Isabela Bal Cameron Ppg - 08/11/2021 2:01 PM EDT Renflexis PENDING with [facility] fax with office note pt scheduled Isabela Bal Cameron Ppg documented in this encounterTrinity Health [facility] Campus06-06-2022 Miscellaneous Notes* Telephone Encounter - Tia Carcamo MA - 08/09/2021 9:11 AM EDT Pharmacy faxed requesting the following refill. Pending Prescriptions Disp Refills HYDROXYCHLOROQUINE 200 MG TABLET 30 tablet 2 Sig: TAKE 1 TABLET BY MOUTH EVERY DAY BETTY: Yes Patient last appointment: 04/16/2021 Next Appointment: 10/22/2021 Patient Phone numbers: [phone] (home) Request is for script(s) to be escript to pharmacy. Tia Carcamo MA documented in this encounterTrinity Health [facility] Campus05-26-2022 Miscellaneous Notes* Telephone Encounter - Brynn Fofana LPN - 07/29/2021 12:49 PM EDT Pt calls extremely confused. She has been approved for humira. Does she now stop the infusions of remicade. Port order was placed. I did call IR and they were to call her to schedule this as order isin the EMR. Does she still have this placed? Brynn Fofana LPN * Telephone Encounter - Robert Farias MD - 07/20/2021 6:47 PM EDT Have entered in the EMR Thanks Robert Farias MD Diagnosis RA * Telephone Encounter - Robert Farias MD - 07/16/2021 4:12 PM EDT Patient is on remicade at present time, Does not have to pay for this If I change to humira will insurance cover her humira ? Please let me know , if insurance will not cover then will leave on remicade Robert Farias MD documented in this encounterTrinity Health [facility] Campus05-19-2022 Miscellaneous Notes* Telephone Encounter - Isabela Bal [employer]er Ppg - 07/22/2021 10:38 AM EDT Rick Medina APPROVED [id number] 07.04.2021 - 07.21.2022 with caresource/cover my meds Isabela Bal Cameron Ppg * Telephone Encounter - Isabela Bal [employer] Ppg - 07/22/2021 9:33 AM EDT Rick Medina PENDING with caresource/cover my meds Isabela Bal [employer]er Ppg documented in this encounterTrinity Health System [facility] Campus05-16-2022 Miscellaneous Notes* Addendum Note - Robert Farias MD - 07/19/2021 12:37 PM EDT Addended by: ROBERT FARIAS on: 07/19/2021 12:37 PM Modules accepted: Orders * Telephone Encounter - Robert Farias MD - 07/19/2021 12:36 PM EDT Placed orders Thanks Robert Farias MD * Telephone Encounter - Brynn Fofana LPN - 07/19/2021 10:42 AM EDT Called an spoke to Josefa at [facility] IR- the order needs placed for IR Peripheral Inserted Tunnel Port.Procedure # [id number]. Once this order is placed they will take care of scheduling pt. I gave them all of the pts information over the phone today. Brynn Fofana LPN * Telephone Encounter - Robert Farias MD - 07/16/2021 4:14 PM EDT Brynn She needs a port for infusion for remicade Can you find out which one Thanks Robert Farias MD documented in this encounterTrinity Health System [facility] Campus05-13-2022 History of Present illness Narrative* Robert Farias MD - 07/16/2021 10:50 AM EDT This note was created using EveryRack. Subjective Jaylin Carroll is a 60 year old female. Feeling better and present Weather changes and is better Back and hip pain is there Not to bad Bearable Achy pain Nothing major Morning stiffness is lasting about 30 minutes Exercise daily Am knee are hurting diff with steps Mild pain in the left shoulder not daily Hand good Stiff am but good after wards Hip pain left Knee am pain step Then OK Mostly step main issue Feet pain toes No ankle pain Does not walk barefoot Asthma issue PCP called today BP has been running high Does not check this at home Work stressful few months Review of Systems Objective Blood Pressure 188/108 Pulse 86 Temperature 36.8 C (98.2 F) (Temporal) Height 154.9 cm (5' 1) Weight 89.8 kg (198 lb) Body Mass Index 37.41 kg/m Physical Exam Vitals reviewed. Constitutional: General: She is not in acute distress. Appearance: Normal appearance. She is not ill-appearing or toxic-appearing. Cardiovascular: Rate and Rhythm: Normal rate and regular rhythm. Heart sounds: Normal heart sounds. No murmur heard. No friction rub. No gallop. Pulmonary: Effort: No respiratory distress. Breath sounds: Normal breath sounds. No stridor. No wheezing or rhonchi. Abdominal: General: There is no distension. Palpations: There is no mass. Tenderness: There is no abdominal tenderness. Hernia: No hernia is present. Musculoskeletal: Right shoulder: Normal. Left shoulder: Normal. Right elbow: Normal. Left elbow: Normal. Right wrist: Normal. Left wrist: Normal. Right hand: Normal. Left hand: Normal. Cervical back: No rigidity or tenderness. Thoracic back: Normal. Lumbar back: Normal. Right hip: Normal. Left hip: Normal. Right knee: Normal. Left knee: Normal. Right lower leg: No edema. Left lower leg: No edema. Right ankle: Normal. Left ankle: Normal. Right foot: Normal. Left foot: Normal. Comments: Knee crepitus Left shoulder mild crepitus No clear synovitis Low grade tenderness in the toes BP 160/80 Lymphadenopathy: Cervical: No cervical adenopathy. Skin: Findings: No rash. Neurological: Mental Status: She is alert. Psychiatric: Mood and Affect: Mood normal. Behavior: Behavior normal. Thought Content: Thought content normal. Judgment: Judgment normal. Assessment and Plan First visit 06/19/2020 ( moved from [place] ) RA and wants treatment for that RA ( RF 184, CCP 125 ) age 15 onset Quantiferon M. 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 Mendes [place] [facility] [place] [facility] : 01/2020 last visit ( record reviewed and scanned) ( 2 miscarriages ,no DVT no Raynaud's Phenomenon , no serositis , no photosensitivity ) (sun burn easy ) TREATMENT Enbrel positive response 12/19 to 05/20 stopped insurance issue. OFF Simponi 2017 excellent response allergic reaction OFF Sulfa allergy : severe GI upset, no rash no angioedema OFF plaquenil 200 mg bid ( 2014 ) 06/19/2020 plaquenil 200 mg daily.. MTX 25 mg ( 5 am 5 pm ) ( started ) 06/19/2020 MTX 8 pill weekly . Renflexis 04/24 excellent response, 5mg/kg ( 7 week ) (02/2020 last infusion) 06/19/2020 resume for now, severe RA now flaring. of each lot better 03/12/2021 last infusion ( insurance covering ) 04/16/2021 ( next infusion is 08/13/2021 ( ( arrange port before infusion, delay infusion if no port by then ) Drug and disease monitoring 02/21 Vit D 39 .11/2019 Vit D 41. 11/2019 wbc 3900 low cbc cmp normal 05/19/2020 cbc 4000 wbc cmp normal, chol 171 ldl 100 trig 63, HLD 58 08/14/2020 cbc hg 11.4 low cmp normal esr 2 mm 12/03/2020 esr 5 cmp cbc normal 07/25 cmp glu 156, cbc diff , ESR 2 mm. Chronic low back pain zanaflex helped 06/19/2020 06/19/2020 controlled observe keep same med. 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 07/25 Toe pain 07/16/21 ( compression stocking ) 07/16/21 Diabetes Mellitus Type II HTN Allergic Rhinitis and Allergic Conjunctivitis Fall allergy ( skin testing done past negative ) Asthma No atopic dermatitis 01/08/2021 Osteopenia 02/21 DXA -2.1 hip neck -1.9 total hip Pain mgt ( pain adv done ) 09/2020 Ultram 50 mg every 6 hour ( rare use with flare < 10 months ) last refill > 6 months ago. ( Rheum ) 10/02/2020 give her one week to deal with current flare. 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 ( leukemia age 43 ) 2 son in [facility] 06/19/2020 Brother 2 healthy 06/19/2020 3 sister healthy 06/19/2020 Mother 58 ( CHF cancer spinal from breast ) 06/19/2020 ( did not smoke ) Father brain aneurysm 67 06/19/2020 ( did smoke) COVID Moderna 01/2021 (3) done 02/23 COVID cough, sneezing, sore throat, no temp etc . [facility] Miscellaneous Notes* Telephone Encounter - Tia Carcamo MA - 08/11/2020 4:01 PM EDT Pt is aware and understand. * Telephone Encounter - Robert Farias MD - 08/10/2020 6:01 PM EDT Please inform patient to get labs done Robert Farias MD documented in this [facility]Tr[facility]06[facility]-2021 Miscellaneous Notes* Telephone Encounter - Kelsea Sosa - 08/11/2020 1:52 PM EDT I spoke with the patient, she was calm and pleasant, said she will get her TB test done LUISA. Askedthat we communicate with her via phone going forward as MyChart is not preferred. Would like a [facility] infusion center close to her home (not sure if the [facility] infusion). * Telephone Encounter - Deysi Fried - 08/11/2020 10:12 AM EDT Patient called and was extremely upset. She said that her prior auth has been in the works for 2 months. She wants answers on why it has been taking this long. She said that no one calls her for any updates and she rarely checks MyChart. She said that she is getting her bloodwork done for the priorauth on Tuesday 08/15 and if she doesn't hear anything in a week she will be changing doctors. Shestates that this is ridiculous how long it is taking and the communication from our office is horrible. Apologized to patient and informed her that I would let my contract sheltered workshop supervisor aware of the situation. Deysi TATE documented in this [facility]Tr[facility]06-[facility]-2021 Miscellaneous Notes* Telephone Encounter - Deysi Fried - 08/11/2020 10:02 AM EDT Patient states she will get the labs done on Tuesday 08/15. Deysi Mantilla PSS documented in this [facility]Tr[facility]06[facility]-2021 Miscellaneous Notes* Telephone Encounter - Valeriano Gutiérrezary Isabela Vann - 08/04/2020 3:54 PM EDT Renflexis fax pending with nathanael Bal [employer] documented in this [facility]Tr[facility]04[facility]16-2021 Miscellaneous Notes* Telephone Encounter - Emily CameronTatyana - 06/19/2020 3:17 PM EDT At checkout per Dr Farias: Please get remicade (order in [place] prior authorized) Patient had been on it in [place], last dose beginning of February. She has Nathanael romero, gave her brochure, she will check on copay assistance for infusions, fyi. Tatyana Diaz [employer] documented in this [facility]04-16-[facility] History of Present illness Narrative* Robert Farias - 06/19/2020 2:24 PM EDT This note was created using [employer]y Network[employer]. Subjective Jaylin Carroll is a 59 year old female. At present I am here for fatique Ultimate issue No energy to do anything Dog used to waking three time a day but cannot Cannot do this. Good sleep But by mid day tired Not a jason so suffers through Morning stiffness is lasting about 30 minutes to one hour. Before she can get moving Has to get up every 2 hour to get the stiffness out of her body No jaw pain Neck pain Localized Just hurts Pain from the cervical spine is radiating to the shoulders. Low back pain Depends upon the activity zanaflex during night Restless sleeper moves all night Left shoulder >> right shoulder Elbow pain bilateral Wrist hand pain bilateral On account of the jobs she has Left hip pain Knee pain bilateral bilateral ankle pain bilateral feet pain . On biologic with excellent relief and now is flaring . Way more energy . Moved in 02/2021 Review of Systems Constitutional: Positive for fatigue. HENT: Negative. Eyes: Negative. Respiratory: Negative. Cardiovascular: Negative. Gastrointestinal: Negative. Endocrine: Negative. Genitourinary: Negative. Allergic/Immunologic: Negative. Neurological: Negative. Hematological: Negative. Psychiatric/Behavioral: Negative. Objective Blood Pressure 133/91 (BP Site: Right Arm, BP Position: Sitting) Pulse 88 Temperature 37 C (98.6 F) (Skin) Weight 86.5 kg (190 lb 12.8 oz) Physical Exam Vitals reviewed. Constitutional: General: She is not in acute distress. Appearance: Normal appearance. She is not ill-appearing or toxic-appearing. Eyes: General: Right eye: No discharge. Left eye: No discharge. Cardiovascular: Rate and Rhythm: Normal rate and regular rhythm. Heart sounds: Normal heart sounds. No murmur heard. No friction rub. No gallop. Pulmonary: Effort: No respiratory distress. Breath sounds: Normal breath sounds. No stridor. No wheezing or rhonchi. Abdominal: General: There is no distension. Palpations: Abdomen is soft. There is no mass. Tenderness: There is no abdominal tenderness. Hernia: No hernia is present. Musculoskeletal: Right shoulder: Normal. Left shoulder: Normal. Right elbow: Normal. Left elbow: Normal. Right wrist: Normal. Left wrist: Normal. Right hand: Normal. Left hand: Normal. Cervical back: No rigidity or tenderness. Thoracic back: Normal. Lumbar back: Normal. Right hip: Normal. Left hip: Normal. Right knee: Normal. Left knee: Normal. Right lower leg: No edema. Left lower leg: No edema. Right ankle: Normal. Left ankle: Normal. Right foot: Normal. Left foot: Normal. Comments: Tender wrist MCP 2-5 tender PIP tender Ankle tender Feet tender Lymphadenopathy: Cervical: No cervical adenopathy. Skin: Findings: No rash. Neurological: Mental Status: She is alert. Gait: Gait normal. Psychiatric: Mood and Affect: Mood normal. Behavior: Behavior normal. Thought Content: Thought content normal. Judgment: Judgment normal. 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 Mendes [place] [facility] [place] [facility] : 01/2020 last visit ( record reviewed and scanned) ( 2 miscarriages ,no DVT no Raynaud's Phenomenon , no serositis , no photosensitivity ) (sun burn easy ) TREATMENT Sulfa allergy : severe GI upset, no rash no angioedema OFF plaquenil 200 mg bid ( 2014 ) 06/19/2020 MTX 25 mg ( 5 am 5 pm ) ( started ) 06/19/2020 ( borderline low wbc, cut back to 8 pill a week once on renflexis) Enbrel positive response 12/19 to 05/20 stopped insurance issue. OFF Simponi 2017 excellent response allergic reaction OFF Renflexis 04/24 excellent response, 5mg/kg ( 7 week ) (02/2020 last infusion) 06/19/2020 resume for now, severe RA now flaring. Drug and disease monitoring 02/21 Vit D 39 .11/2019 Vit D 41. 11/2019 wbc 3900 low cbc cmp normal 05/19/2020 cbc 4000 wbc cmp normal, chol 171 ldl 100 trig 63, HLD 58 Chronic low back pain zanaflex helped 06/19/2020 06/19/2020 controlled observe keep same med. 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 Never smoked of each No ETOH . ( leukemia age 43 ) 2 son in [facility] 06/19/2020 Brother 2 healthy 06/19/2020 3 sister healthy 06/19/2020 Mother 58 ( CHF cancer spinal from breast ) 06/19/2020 ( did not smoke ) Father brain aneurysm 67 06/19/2020 ( did smoke) documented in this [facility] note Author Kat Tryalor [facility] Note Date/Time May 27, 2024 3:1 [facility] [address] [place] [address] Counseling Note - Pharmacy 05/27/24 1511 MR#: [id number] Acct: [id number] Name: JAYLIN CARROLL Rep #:[id number] : 1960 63 From: Kat Traylor PCP: Dr. Paul Greco MD Status:ADM IN O Y Location: [place] [address] Pharmacy [place] Med Reconciliation Pharmacy Service has performed discharge medication reconciliation for this patient. The patient's discharge medication list was reviewed for discrepancies and discrepancies were resolved. Medications at Discharge Home Medications folic acid 1 mg tablet 1 mg PO DAILY 01/11/24 hydroxychloroquine 200 mg tablet 200 mg PO DAILY 01/11/24 infliximab-abda 100 mg intravenous solution (Renflexis) IV .Q6W RA 01/11/24 ipratropium bromide 42 mcg (0.06 %) nasal spray 2 spray intranasal TID PRN sinussymptoms 01/11/24 levothyroxine 25 mcg tablet 25 mcg PO DAILY 01/11/24 methotrexate sodium 2.5 mg tablet 20 mg PO QWEEK RA 01/11/24 montelukast 10 mg tablet 10 mg PO DAILY 01/11/24 tizanidine 2 mg tablet 2 - 6 mg PO QHS PRN PRN muscle spasticity 01/11/24 albuterol sulfate 2.5 mg/3 mL (0.083 %) solution for nebulization 2.5 mg (3 mL) inhalation Q4H PRN PRN sob #180 mL 01/13/24 albuterol sulfate 90 mcg/actuation aerosol inhaler 2 puff inhalation Q4H PRN shortness of breath or wheezing #8.5 grams 01/13/24 atorvastatin 80 mg tablet 80 mg PO QHS 30 days #30 tabs 01/13/24 clopidogrel 75 mg tablet 75 mg PO DAILY 30 days #30 tabs 01/13/24 metformin 500 mg tablet 1,000 mg PO QDAY 02/26/24 metoprolol tartrate 50 mg tablet 50 mg PO BID #180 tabs 02/26/24 spironolactone 25 mg tablet 25 mg PO DAILY #30 tabs 02/26/24 amlodipine 5 mg tablet 5 mg PO 1200 04/12/24 hydralazine 25 mg tablet 25 mg PO TID 04/12/24 ferrous sulfate 324 mg (65 mg iron) tablet,delayed release 324 mg PO QDAY #60 tabs 04/30/24 05/27/24 1511 <Electronically signed by Kat Traylor> Date _ Kat Traylor Cosigner Signature (if applicable): Date CC: ~ Signed [facility] Work Phone: Discharge summary Author Isael Baeza [facility] Note Date/Time May 27, 2024 3:0 6pm [facility] Medical Records Department [address] [place] [address] Instructions for Home/Discharge Instructions 05/27/24 1503 MR#: [id number] Acct: [id number] Name: JAYLIN CARROLL Rep #:[id number] : 1960 63 From: Isael Baeza DO PCP: Dr. Paul Greco MD Status:ADM IN O Discharge Instructions Diet Discharge Diet: 1800 Calorie Control Diet DC O2, CPAP, BIPAP needs Home O2 Discharge instructions: No Dressing / Incision Discharge Activity: Return to Normal Activity Follow Up Care Test Results: Test results from this visit will be discussed in further detail at your follow- up appointment, if applicable. Discharge Plan Admission Admit Date/Time: 05/27/24 01:28 Primary Reason for Your Visit: Noncardiac chest pain Attending Provider: Isael Baeza Primary Care Provider: Paul Greco Consulting Providers: Natalie Gaspar Discharge Orders/Prescriptions Prescriptions: Continued metformin 500 mg tablet 1,000 mg PO QDAY metoprolol tartrate 50 mg tablet 50 mg PO BID Qty: 180 3RF ferrous sulfate 324 mg (65 mg iron) tablet,delayed release (DR/EC) 324 mg PO QDAY Qty: 60 2RF tizanidine 2 mg tablet 2 - 6 mg PO QHS PRN PRN (Reason: muscle spasticity) levothyroxine 25 mcg tablet 25 mcg PO DAILY methotrexate sodium 2.5 mg tablet 20 mg PO QWEEK Patient Comments: takes it every Monday folic acid 1 mg tablet 1 mg PO DAILY montelukast 10 mg tablet 10 mg PO DAILY hydroxychloroquine 200 mg tablet 200 mg PO DAILY ipratropium bromide 42 mcg (0.06 %) spray,non-aerosol 2 spray INTRANASAL TID PRN (Reason: sinus symptoms) Renflexis 100 mg recon soln IV .Q6W Patient Comments: gets it every 7 weeks atorvastatin 80 mg Tablet 80 mg PO QHS 30 Days Qty: 30 0RF clopidogrel 75 mg Tablet 75 mg PO DAILY 30 Days Qty: 30 0RF albuterol sulfate 2.5 mg /3 mL (0.083 %) solution for nebulization 2.5 mg inhalation Q4H PRN PRN (Reason: sob) Qty: 180 0RF albuterol sulfate 90 mcg/actuation HFA aerosol inhaler 2 puff inhalation Q4H PRN (Reason: shortness of breath or wheezing) Qty: 8.5 0RF hydralazine 25 mg tablet 25 mg PO TID amlodipine 5 mg tablet 5 mg PO 1200 Rx Instructions: 5 mg orally daily at noon; spironolactone 25 mg tablet 25 mg PO DAILY Qty: 30 11RF Referrals / Follow Up: Paul Greco MD [Primary Care Provider] - Within 2 Weeks Disposition Disposition (needs filled in before D/C Order can be placed): Home, Self Care 05/27/24 1506<Electronically signed by Isael Baeza DO>Isael Baeza DO CC: Dr. Natalie Gaspar MD; Dr. Paul Greco MD ~ Signed [facility] Work Phone: Discharge summary Author Isael Baeza [facility] Note Date/Time May 27, 2024 3:[address] [place] [address] Medical Records Department [address] [place] [address] Discharge Summary 05/27/24 1506 MR#: [id number] Acct: [id number] Name: JAYLIN CARROLL Rep #:[id number] : 1960 63 From: Isael Baeza DO PCP: Dr. Paul Greco MD Status:ADM IN Location: [place] [address]- Providers Date of Admission: 05/27/24 Date of Discharge: 05/27/24 Primary Care Physician: Paul Greco MD Reason For Visit: CHEST PAIN Diagnosis Discharge Diagnosis (1) Chest pain: Status: Acute Code(s): R07.9 - Chest pain, unspecified Plan 1. Musculoskeletal chest pain #2 demand ischemia-etiology unclear #3 chronic asthma #4 essential hypertension #5 hyperlipidemia #6 type 2 diabetes #7 rheumatoid arthritis Medications at Discharge Home Medications folic acid 1 mg tablet 1 mg PO DAILY 01/11/24 hydroxychloroquine 200 mg tablet 200 mg PO DAILY 01/11/24 infliximab-abda 100 mg intravenous solution (Renflexis) IV .Q6W RA 01/11/24 ipratropium bromide 42 mcg (0.06 %) nasal spray 2 spray intranasal TID PRN sinussymptoms 01/11/24 levothyroxine 25 mcg tablet 25 mcg PO DAILY 01/11/24 methotrexate sodium 2.5 mg tablet 20 mg PO QWEEK RA 01/11/24 montelukast 10 mg tablet 10 mg PO DAILY 01/11/24 tizanidine 2 mg tablet 2 - 6 mg PO QHS PRN PRN muscle spasticity 01/11/24 albuterol sulfate 2.5 mg/3 mL (0.083 %) solution for nebulization 2.5 mg (3 mL) inhalation Q4H PRN PRN sob #180 mL 01/13/24 albuterol sulfate 90 mcg/actuation aerosol inhaler 2 puff inhalation Q4H PRN shortness of breath or wheezing #8.5 grams 01/13/24 atorvastatin 80 mg tablet 80 mg PO QHS 30 days #30 tabs 01/13/24 clopidogrel 75 mg tablet 75 mg PO DAILY 30 days #30 tabs 01/13/24 metformin 500 mg tablet 1,000 mg PO QDAY 02/26/24 metoprolol tartrate 50 mg tablet 50 mg PO BID #180 tabs 02/26/24 spironolactone 25 mg tablet 25 mg PO DAILY #30 tabs 02/26/24 amlodipine 5 mg tablet 5 mg PO 1200 04/12/24 hydralazine 25 mg tablet 25 mg PO TID 04/12/24 ferrous sulfate 324 mg (65 mg iron) tablet,delayed release 324 mg PO QDAY #60 tabs 04/30/24 Hospital Course Operations None Procedures Nuclear stress test Summary of Care Provided Minutes Spent on Discharge: 30 Hospital Course: This 63-year-old white female presented to an outside hospital initially on 05/26/2024 with onset of chest discomfort which was described as an ache, and nonradiating. Patient was directly transferred to PCU as an observation patient, cardiac enzymes remained elevated but there were at approximately the same level. Patient had reproducible pain on examination when she was admitted to PCU. Magnesium at the outside emergency room was low at 1.5 troponin was 81. EKG showed a sinus tachycardia without evidence of ischemia. Patient was placed in observation status on PCU and observed, she underwent a resting nuclear stress test which was negative for reversible ischemia. On 05/27/2024, patient was seen and examined: On examination she appeared in good health and spirits, she does not appear to be in any distress. Vital signs as documented. Skin warm and dry and without overt rashes. Neck without JVD, thyroid appears normal, trachea is midline, neck is supple. Lungs clear, normal air movement wasnoted. Heart exam notable for regular rhythm, normal sounds and absence of murmurs, rubs or gallops. Abdomen unremarkable and without evidence of organomegaly, masses, or abdominal aortic enlargement, bowel sounds are present in all 4 quadrants, no abdominal tenderness was noted. Extremities nonedematous,no cyanosis was noted, no clubbing was noted. Neuro: Cranial nerves II through XII are grossly intact, no focal motor deficits were noted, sensation to light touch and pinprick is intact, motor exam 5/5 throughout. Psych: Patient is alert and oriented x3, she does not appear anxious or depressed, she does not appear agitated. Patient was discharged home in stable condition on 05/27/2024. Weight / BMI Weight Weight: 80.64 kg Body Mass Index (BMI) 32.5 ABG / Lab / Microbiology Data 05/27/24 06:20 05/27/24 06:20 Laboratory: Laboratory Results - last 24 hr 05/27/24 02:40: Troponin T High Sens 7 05/27/24 04:39: Troponin T Hi Sens 2 Hr < 6 05/27/24 06:20: WBC 7.1, RBC 4.48, Hgb 11.7 L, Hct 37.1, MCV 82.8, MCH 26.1 L, MCHC 31.5 L, RDW Std Deviation 57.8 H, RDW Coeff of Jeison 19.5 H, Plt Count 183, MPV 10.3, Immature Gran % (Auto) 0.300, Neut % (Auto) 50.1, Lymph % (Auto) 35.2,[place] % (Auto) 10.7 H, Eos % (Auto) 3.4, Baso % (Auto) 0.3, Absolute Neuts (auto)3.6, Absolute Lymphs (auto) 2.50, Nucleated RBC % 0, Sodium 139, Potassium 3.9, Chloride 104, Carbon Dioxide 23.1, Anion Gap 12, BUN 16, Creatinine 0.71, Estim Creat Clear Calc 79.78, Est GFR (MDRD) Non-Af 96, BUN/Creatinine Ratio 21.9 H, Glucose 196 H, Calcium 9.1, Magnesium 2.1, Total Bilirubin 0.25, AST 19, ALT 20, Alkaline Phosphatase 79, Troponin T Hi Sens 4Hr < 6, Total Protein 6.3, Albumin 4.1, Globulin 2.1 L, Albumin/Globulin Ratio 1.9 05/27/24 06:34: POC Glucose 178 H 05/27/24 12:27: POC Glucose 124 H D/C Instructions Discharge Diet: 1800 Calorie Control Diet DC O2, CPAP, BIPAP Needs Home O2 Discharge instructions: No Meaningful Use Info Meaningful Use Meaningful Use Diagnoses (Choose all that apply): None applicable Ischemic Stroke Statin Dosing Therapy Reference: STATIN DOSE THERAPY REFERENCE: * Patients > 75 years receive moderate or high dose statin therapy. * Patients 75 years or YOUNGER should receive HIGH intensity statin dose unless contraindicated. You will be required to document reason for non-treatment if statin daily dose does not meet guidelines. HIGH DOSE STATIN THERAPY DAILY Atorvastatin > than or = to 40 mg Rosuvastatin > than or = to 20 mg Amlodipine + Atorvastatin > than or = to 2.5/40 mg Ezetimibe + Simvastatin 10/80 mg Simvastatin 80mg Discharge Plan Admission Admit Date/Time: 05/27/24 01:28 Primary Reason for Your Visit: Noncardiac chest pain Attending Provider: Isael Baeza Primary Care Provider: Paul Greco Consulting Providers: Natalie Gaspar Discharge Orders/Prescriptions Prescriptions: Continued metformin 500 mg tablet 1,000 mg PO QDAY metoprolol tartrate 50 mg tablet 50 mg PO BID Qty: 180 3RF ferrous sulfate 324 mg (65 mg iron) tablet,delayed release (DR/EC) 324 mg PO QDAY Qty: 60 2RF tizanidine 2 mg tablet 2 - 6 mg PO QHS PRN PRN (Reason: muscle spasticity) levothyroxine 25 mcg tablet 25 mcg PO DAILY methotrexate sodium 2.5 mg tablet 20 mg PO QWEEK Patient Comments: takes it every Monday folic acid 1 mg tablet 1 mg PO DAILY montelukast 10 mg tablet 10 mg PO DAILY hydroxychloroquine 200 mg tablet 200 mg PO DAILY ipratropium bromide 42 mcg (0.06 %) spray,non-aerosol 2 spray INTRANASAL TID PRN (Reason: sinus symptoms) Renflexis 100 mg recon soln IV .Q6W Patient Comments: gets it every 7 weeks atorvastatin 80 mg Tablet 80 mg PO QHS 30 Days Qty: 30 0RF clopidogrel 75 mg Tablet 75 mg PO DAILY 30 Days Qty: 30 0RF albuterol sulfate 2.5 mg /3 mL (0.083 %) solution for nebulization 2.5 mg inhalation Q4H PRN PRN (Reason: sob) Qty: 180 0RF albuterol sulfate 90 mcg/actuation HFA aerosol inhaler 2 puff inhalation Q4H PRN (Reason: shortness of breath or wheezing) Qty: 8.5 0RF hydralazine 25 mg tablet 25 mg PO TID amlodipine 5 mg tablet 5 mg PO 1200 Rx Instructions: 5 mg orally daily at noon; spironolactone 25 mg tablet 25 mg PO DAILY Qty: 30 11RF Referrals / Follow Up: Paul Greco MD [Primary Care Provider] - Within 2 Weeks Disposition Disposition (needs filled in before D/C Order can be placed): Home, Self Care Charges/Coding Visit Charges Inpatient E&M: 23897 Disch Hosp 05/27/24 1512 <Electronically signed by Isael Baeza DO> Cosigner Signature (if applicable): CC: Dr. Paul Greco MD; Dr. Isael Baeza DO~ Signed [facility] Work Phone: Evaluation note* Diagnosis Rheumatoid arthritis involving both hands with positive rheumatoid factor (HCC[facility] Rheumatoid arthritis involving both hands with positive rheumatoid factor (HCC)- Primary Chronic bilateral low back pain without sciatica [facility] Diagnosis Rheumatoid arthritis involving both hands with positive rheumatoid factor (HCC)- Primary [facility] Diagnosis Rheumatoid arthritis involving both hands with positive rheumatoid factor (HCC)- Primary [facility] Diagnosis Rheumatoid arthritis involving both hands with positive rheumatoid factor (HCC)- Primary [facility] Diagnosis Rheumatoid arthritis involving both hands with positive rheumatoid factor (HCC)- Primary [facility] Diagnosis Rheumatoid arthritis involving both hands with positive rheumatoid factor (HCC)- Primary Rheumatoid arthritis involving both hands with positive rheumatoid factor (HCC) [facility] Diagnosis Anesthesia of skin- Primary Disturbance of skin sensation [facility] Diagnosis Anesthesia of skin- Primary Disturbance of skin sensation [facility] Diagnosis Rheumatoid arthritis involving both hands with positive rheumatoid factor (HCC)- Primary [facility] Diagnosis Rheumatoid arthritis involving both hands with positive rheumatoid factor (HCC)- Primary [facility] Diagnosis Rheumatoid arthritis involving both hands with positive rheumatoid factor (HCC)- Primary [facility] Diagnosis Rheumatoid arthritis involving both hands with positive rheumatoid factor (HCC)- Primary [facility] Diagnosis Rheumatoid arthritis involving both hands with positive rheumatoid factor (HCC)- Primary Asymptomatic postmenopausal status [facility] Diagnosis Rheumatoid arthritis involving both hands with positive rheumatoid factor (HCC)- Primary [facility] Diagnosis Asymptomatic postmenopausal status documented in this encounter [facility] noteNo assessment information availableWMercy [facility] Work Phone: Evaluation note* Diagnosis Rheumatoid arthritis involving both hands with positive rheumatoid factor (HCC)- Primary documented in this encounter [facility] note* Diagnosis Rheumatoid arthritis involving both hands with positive rheumatoid factor (HCC)- Primary documented in this encounter [facility] note* Diagnosis Rheumatoid arthritis involving both hands with positive rheumatoid factor (HCC)- Primary documented in this encounter [facility] note* Diagnosis Rheumatoid arthritis involving both hands with positive rheumatoid factor (HCC)- Primary [facility] Diagnosis Rheumatoid arthritis involving both hands with positive rheumatoid factor (HCC)- Primary documented in this encounter [facility] note* Diagnosis Anemia, chronic disease- Primary Anemia of other chronic disease documented in this encounter [facility] note* Diagnosis Rheumatoid arthritis involving both hands with positive rheumatoid factor (HCC)- Primary Anemia, chronic disease Anemia of other chronic disease Recurrent infections Unspecified infectious and parasitic diseases documented in this encounter [facility] note* Diagnosis Rheumatoid arthritis involving both hands with positive rheumatoid factor (HCC)- Primary documented in this encounter [facility] note* Diagnosis Rheumatoid arthritis involving both hands with positive rheumatoid factor (HCC)- Primary documented in this encounter [facility] note* Diagnosis Rheumatoid arthritis involving both hands with positive rheumatoid factor (HCC)- Primary documented in this encounter [facility] note* Diagnosis Rheumatoid arthritis involving both hands with positive rheumatoid factor (HCC)- Primary Asymptomatic postmenopausal status High risk medication use Encounter for long-term (current) use of other medications documented in this encounter [facility] for referral (narrative)No reason for referral information availableWMercy Health St. [facility] Work Phone: Reason for visit Narrative* Outpatient Procedure (Routine) - Pending Review Specialty Diagnoses / Procedures Referred By Berenice krause Referred To Contact [facility] Diagnoses Asymptomatic menopausal state Procedures DXA BONE DENSITY AXIAL 1+ SITES DXA-AXIAL SKELETON [[id number]] Robert Farias MD [address] [address] [facility] Referral ID Status Reason Start Date Expiration Date Visits Requested Visits Authorized [id number] Pending Review OON/Self Pay Override 02/07/2022 05/08/2022 1 1 [facility] Medications Administered Section Inactive Administered Medications - up to 3 most recent administrations Medication Order MAR Action Action Date Dose Rate Site acetaminophen 650 mg tab(s) (TYLENOL) 650 mg, ORAL, ONCE, 1 dose, On Mon06/25/21 at 1000, No more than 4000 mg of acetaminophen should be given per day (FROM ALL SOURCES) Given 06/25/2021 9:40 AM EDT 650 mg diphenhydrAMINE 25 mg (BENADRYL) 25 mg, ORAL, ONCE, 1 dose, On Mon06/25/21 at 1000, May give diphenhydramine as PO or IV. Given 06/25/2021 9:40 AM EDT 25 mg inFLIXimab-abda 400 mg in NaCl 0.9% 250 mL (RENFLEXIS) 400 mg (rounded from 425 mg = 5 mg/kg/dose 85 kg Order-specific weight), INTRAVENOUS, at 125 mL/hr, Administer over 2 Hours, ONCE, 1 dose, On Mon06/25/21 at 1000, TOTAL VOLUME = 275 mL. EXP: Administer with 0.2 micron filter. New Bag/Syringe/Bottle 06/25/2021 9:57 AM EDT 400 mg 125 mL/hr Inactive Administered Medications - up to 3 most recent administrations Medication Order MAR Action Action Date Dose Rate Site acetaminophen 650 mg tab(s) (TYLENOL) 650 mg, ORAL, ONCE, 1 dose, On Mon08/13/21 at 1030, No more than 4000 mg of acetaminophen should be given per day (FROM ALL SOURCES) Given 08/13/2021 10:23 AM EDT 650 mg diphenhydrAMINE 25 mg (BENADRYL) 25 mg, ORAL, ONCE, 1 dose, On Mon08/13/21 at 1030, May give diphenhydramine as PO or IV. Given 08/13/2021 10:23 AM EDT 25 mg inFLIXimab-abda 400 mg in NaCl 0.9% 250 mL (RENFLEXIS) 400 mg (rounded from 425 mg = 5 mg/kg/dose 85 kg Order-specific weight), INTRAVENOUS, at 125 mL/hr, Administer over 2 Hours, ONCE, 1 dose, On Mon08/13/21 at 1030, TOTAL VOLUME = 275 mL. EXP: 08/13/21 @ 2200 Administer with 0.2 micron filter. New Bag/Syringe/Bottle 08/13/2021 10:44 AM EDT 400 mg 125 mL/hr Inactive Administered Medications - up to 3 most recent administrations Medication Order MAR Action Action Date Dose Rate Site acetaminophen 650 mg tab(s) (TYLENOL) 650 mg, ORAL, ONCE, 1 dose, On Mon10/01/21 at 1030, No more than 4000 mg of acetaminophen should be given per day (FROM ALL SOURCES) Given 10/01/2021 10:11 AM EDT 650 mg diphenhydrAMINE 25 mg (BENADRYL) 25 mg, ORAL, ONCE, 1 dose, On Mon10/01/21 at 1030, May give diphenhydramine as PO or IV. Given 10/01/2021 10:11 AM EDT 25 mg inFLIXimab-abda 400 mg in NaCl 0.9% 250 mL (RENFLEXIS) 400 mg (rounded from 425 mg = 5 mg/kg/dose 85 kg Order-specific weight), INTRAVENOUS, at 125 mL/hr, Administer over 2 Hours, ONCE, 1 dose, On Mon10/01/21 at 1030, TOTAL VOLUME = 275 mL. EXP: 10/01/21 @ 2100 Administer with 0.2 micron filter. New Bag/Syringe/Bottle 10/01/2021 10:40 AM EDT 400 mg 125 mL/hr Inactive Administered Medications - up to 3 most recent administrations Medication Order MAR Action Action Date Dose Rate Site acetaminophen 650 mg tab(s) (TYLENOL) 650 mg, ORAL, ONCE, 1 dose, On Mon11/19/21 at 1030, No more than 4000 mg of acetaminophen should be given per day (FROM ALL SOURCES) Given 11/19/2021 10:13 AM EDT 650 mg diphenhydrAMINE 25 mg (BENADRYL) 25 mg, ORAL, ONCE, 1 dose, On Mon11/19/21 at 1030, May give diphenhydramine as PO or IV. Given 11/19/2021 10:13 AM EDT 25 mg inFLIXimab-abda 400 mg in NaCl 0.9% 250 mL (RENFLEXIS) 400 mg (rounded from 425 mg = 5 mg/kg/dose 85 kg Order-specific weight), INTRAVENOUS, at 157.5 mL/hr, Administer over 2 Hours, ONCE, 1 dose, On Mon11/19/21 at 1030, TOTAL VOLUME 250mL EXP: 11/26/21 1100 Administer with 0.2 micron filter. New Bag/Syringe/Bottle 11/19/2021 10:40 AM EDT 400 mg 250 mL/hr Inactive Administered Medications - up to 3 most recent administrations Medication Order MAR Action Action Date Dose Rate Site acetaminophen 650 mg tab(s) (TYLENOL) 650 mg, ORAL, ONCE, 1 dose, On Mon01/07/22 at 1030, No more than 4000 mg of acetaminophen should be given per day (FROM ALL SOURCES) Given 01/07/2022 10:22 AM EDT 650 mg diphenhydrAMINE 25 mg (BENADRYL) 25 mg, ORAL, ONCE, 1 dose, On Mon01/07/22 at 1030, May give diphenhydramine as PO or IV. Given 01/07/2022 10:22 AM EDT 25 mg hydrocortisone sodium succinate (PF) 100 mg injection (Solu-CORTEF) 100 mg, INTRAVENOUS, ONCE, 1 dose, On Mon01/07/22 at 1030 Given 01/07/2022 10:24 AM EDT 100 mg inFLIXimab-abda 400 mg in NaCl 0.9% 250 mL (RENFLEXIS) 400 mg (rounded from 425 mg = 5 mg/kg/dose 85 kg Order-specific weight), INTRAVENOUS, at 125 mL/hr, Administer over 2 Hours, ONCE, 1 dose, On Mon01/07/22 at 1030, TOTAL VOLUME = 250mL EXP 01/16/22 1100 Administer with 0.2 micron filter. New Bag/Syringe/Bottle 01/07/2022 10:50 AM EDT 400 mg 125 mL/hr Inactive Administered Medications - up to 3 most recent administrations Medication Order MAR Action Action Date Dose Rate Site inFLIXimab-abda 400 mg in NaCl 0.9% 250 mL (RENFLEXIS) 400 mg (rounded from 425 mg = 5 mg/kg/dose 85 kg Order-specific weight), INTRAVENOUS, at 125 mL/hr, Administer over 2 Hours, ONCE, 1 dose, On Mon03/31/22 at 1100, TOTAL VOLUME = 250 mL. EXP: 04/09/22 1100 Administer with 0.2 micron filter. New Bag/Syringe/Bottle 03/31/2022 10:49 AM EST 400 mg 125 mL/hr Inactive Administered Medications - up to 3 most recent administrations Medication Order MAR Action Action Date Dose Rate Site inFLIXimab-abda 500 mg in NaCl 0.9% 250 mL (RENFLEXIS) 500 mg, INTRAVENOUS, at 150 mL/hr, Administer over 2 Hours, ONCE, 1 dose, On Mon05/20/22 at 1000, TOTAL VOLUME 250mL EXP: 05/29/22 1000 Original Dose 5mg/kg rounded to 500mg per [facility] Vial/Dose Rounding Policy Administer with 0.2 micron filter. New Bag/Syringe/Bottle 05/20/2022 10:05 AM EDT 500 mg 150 mL/hr Inactive Administered Medications - up to 3 most recent administrations Medication Order MAR Action Action Date Dose Rate Site acetaminophen 650 mg tab(s) (TYLENOL) 650 mg, ORAL, ONCE, 1 dose, On Mon07/08/22 at 1000, No more than 4000 mg of acetaminophen should be given per day (FROM ALL SOURCES) Given 07/08/2022 9:44 AM EDT 650 mg inFLIXimab-abda 400 mg in NaCl 0.9% 250 mL (RENFLEXIS) 400 mg, INTRAVENOUS, at 125 mL/hr, Administer over 2 Hours, ONCE, 1 dose, On Mon07/08/22 at 1000, TOTAL VOLUME = 250mL EXP 07/09/22 1100 Original Dose 5mg/kg rounded to 400mg per [facility] Vial/Dose Rounding Policy Administer with 0.2 micron filter. New Bag/Syringe/Bottle 07/08/2022 9:52 AM EDT 400 mg 125 mL/hr Inactive Administered Medications - up to 3 most recent administrations Medication Order MAR Action Action Date Dose Rate Site acetaminophen 650 mg tab(s) (TYLENOL) 650 mg, ORAL, ONCE, 1 dose, On Mon08/26/22 at 1100, No more than 4000 mg of acetaminophen should be given per day (FROM ALL SOURCES) Given 08/26/2022 10:46 AM EDT 650 mg inFLIXimab-abda 400 mg in NaCl 0.9% 250 mL (RENFLEXIS) 400 mg, INTRAVENOUS, at 125 mL/hr, Administer over 2 Hours, ONCE, 1 dose, On Mon08/26/22 at 1100, TOTAL VOLUME = 250 mL. EXP: 09/04/221099 Original Dose rounded to 400mg per [facility] Vial rounding policy Administer with 0.2 micron filter. New Bag/Syringe/Bottle 08/26/2022 10:55 AM EDT 400 mg 250 mL/hr Inactive Administered Medications - up to 3 most recent administrations Medication Order MAR Action Action Date Dose Rate Site acetaminophen 650 mg tab(s) (TYLENOL) 650 mg, ORAL, ONCE, 1 dose, On Mon10/14/22 at 1100, No more than 4000 mg of acetaminophen should be given per day (FROM ALL SOURCES) Given 10/14/2022 10:54 AM EDT 650 mg heparin 100 unit/mL 500 Units injection 500 Units (5 mL), INTRAVENOUS, DIRECTED NEEDED, Starting on Mon10/14/22 at 1049, Until Mon10/14/22 at 1432, See Administration Instructions, If no allergy to Heparin: IVADS not in use should be accessed and flushed once every 4 to 6 weeks with 5 mL of Heparin (100units/mL). Upon de-access of Martinez needle, when re-access is not indicated, ports will be flushed with 5 mL of Heparin (100 units/mL). Do not remove or delete this order unless patient has an allergy/contraindication to Heparin. Given 10/14/2022 12:26 PM EDT 500 Units inFLIXimab-abda 500 mg in NaCl 0.9% 250 mL (RENFLEXIS) 500 mg, INTRAVENOUS, at 150 mL/hr, Administer over 2 Hours, ONCE, 1 dose, On Mon10/14/22 at 1100, TOTAL VOLUME 250mL EXP: 10/23/22 1100 Original Dose 5mg/kg rounded to 500mg per [facility] Vial/Dose Rounding Policy Administer with 0.2 micron filter. New Bag/Syringe/Bottl e 10/14/2022 11:21 AM EDT 500 mg 260 mL/hr Inactive Administered Medications - up to 3 most recent administrations Medication Order MAR Action Action Date Dose Rate Site acetaminophen 650 mg tab(s) (TYLENOL) 650 mg, ORAL, ONCE, 1 dose, On Mon12/02/22 at 1200, No more than 4000 mg of acetaminophen should be given per day (FROM ALL SOURCES) Given 12/02/2022 11:51 AM EDT 650 mg heparin 100 unit/mL 500 Units injection 500 Units (5 mL), INTRAVENOUS, DIRECTED NEEDED, Starting on Mon12/02/22 at 1142, Until Mon12/02/22 at 1558, See Administration Instructions, If no allergy to Heparin: IVADS not in use should be accessed and flushed once every 4 to 6 weeks with 5 mL of Heparin (100units/mL). Upon de-access of Martinez needle, when re-access is not indicated, ports will be flushed with 5 mL of Heparin (100 units/mL). Do not remove or delete this order unless patient has an allergy/contraindication to Heparin. Given 12/02/2022 1:06 PM EDT 500 Units hydrocortisone sodium succinate (PF) 100 mg injection (Solu-CORTEF) 100 mg, INTRAVENOUS, ONCE, 1 dose, On Mon12/02/22 at 1200 Given 12/02/2022 11:51 AM EDT 100 mg inFLIXimab-abda 400 mg in NaCl 0.9% 250 mL (RENFLEXIS) 400 mg, INTRAVENOUS, at 125 mL/hr, Administer over 2 Hours, ONCE, 1 dose, On Mon12/02/22 at 1200, TOTAL VOLUME = 250mL EXP 12/11/22 1200 Original Dose 5mg/kg rounded to 400mg per [facility] Vial/Dose Rounding Policy Administer with 0.2 micron filter. New Bag/Syringe/Bottl e 12/02/2022 12:04 PM EDT 400 mg 125 mL/hr sodium chloride 0.9 % (flush) 10-20 mL (BD POSIFLUSH) 10-20 mL, INTRAVENOUS, NEEDED, Starting on Mon12/02/22 at 1142, Until Mon12/02/22 at 1558, See Administration Instructions, If no IVAD access, may place IV if needed for labs or possible treatment. Flush 10-20ml on IV start and as needed. D5W or LR may be used in place of NS for medication that are incompatible (i.e. with oxaliplatin). Given 12/02/2022 1:06 PM EDT 20 mL Inactive Administered Medications - up to 3 most recent administrations Medication Order MAR Action Action Date Dose Rate Site acetaminophen 650 mg tab(s) (TYLENOL) 650 mg, ORAL, ONCE, 1 dose, On Mon01/20/23 at 1100, No more than 4000 mg of acetaminophen should be given per day (FROM ALL SOURCES) Given 01/20/2023 11:00 AM EST 650 mg heparin 100 unit/mL 500 Units injection 500 Units (5 mL), INTRAVENOUS, DIRECTED NEEDED, Starting on Mon01/20/23 at 1053, Until Mon01/20/23 at 1438, See Administration Instructions, If no allergy to Heparin: IVADS not in use should be accessed and flushed once every 4 to 6 weeks with 5 mL of Heparin (100units/mL). Upon de-access of Martinez needle, when re-access is not indicated, ports will be flushed with 5 mL of Heparin (100 units/mL). Do not remove or delete this order unless patient has an allergy/contraindication to Heparin. Given 01/20/2023 12:34 PM EST 500 Units inFLIXimab-abda 400 mg in NaCl 0.9% 250 mL (RENFLEXIS) 400 mg, INTRAVENOUS, at 125 mL/hr, Administer over 2 Hours, ONCE, 1 dose, On Mon01/20/23 at 1100, TOTAL VOLUME = 250 mL. EXP: 01/20/23 1100 Original Dose rounded to 400mg per [facility] Vial rounding policy Administer with 0.2 micron filter. New Bag/Syringe/Bottl e 01/20/2023 11:30 AM EST 400 mg 125 mL/hr Advance Directives No Advanced Directives Records FoundDocuments on File Type Date Recorded Patient Area Coordinator Expl anation Advance Directive(s) 09/21/2021 7:41 AM Documents on File Type Date Recorded Patient Area Coordinator Expl anation Advance Directive(s) 09/21/2021 7:41 AM Advance Directive Response Recorded Date/ Time Advance Directives on File No Novem 2023 9:20am Living Will No January 23, 2 024 9:20am Power of Glassware Maker No January 24, 2024 9:20am Living Will No February 08 6:09pm Power of Glassware Maker No February 09, 2024 6:09pm Living Will No April 12 2:46pm Power of Glassware Maker No April 12, 2024 2:46pm Living Will No March 10 9:33pm Power of Glassware Maker No March 10 025 9:33pm Advance Directive Response Recorded Date/ Time Living Will No February 08 6:09pm Do you have a Healthcare Power of Glassware Maker? No February 09, 2024 6:09pm Living Will No April 12 2:46pm Do you have a Healthcare Power of Glassware Maker? No April 12, 2024 2:46pm Living Will No March 10 9:33pm Do you have a Healthcare Power of Glassware Maker? No March 10, 2024 9:33pm Living Will No May 27, 2024 2:54am Do you have a Healthcare Power of Glassware Maker? No May 27, 2024 2:54am Advance Directive Response Recorded Date/ Time Do you have a Healthcare Power of Glassware Maker? No July 25, 2024 7:08pm Living Will No April 12 2:46pm Do you have a Healthcare Power of Glassware Maker? No April 12, 2024 2:46pm Living Will No May 27, 2024 2:54am Do you have a Healthcare Power of Glassware Maker? No May 27, 2024 2:54am Do you have a Healthcare Power of Glassware Maker? No July 03, 2024 6:16pm Chief Complaint and Reason for Visit Chief Complaint EORDER Chief Complaint ASTHMA Asthma Chief Complaint ASTHMA Asthma EORDER Chief Complaint Admit Date NV-NonSTEMI<12months January 24, 2024 8:05am INT LABS January 31, 2024 7:57am NV-NonSTEMI<12months January 31, 2024 9:15am Hospital FU-ANEMIA February 06, 2024 9 :25am chest pain February 09, 2024 3 :12pm NV-NonSTEMI<12months February 21, 2024 9:15am S/P [facility] 11/8 NONSTEMI/OK TO LEAVE PER MM M February 26, 2024 9:09am E ORDER February 26, 2024 10:06am NV-NonSTEMI<12months March 08, 2024 6 :14am CHEST PAIN March 10, 2024 8: 18pm Test Result April 30, 2024 7:58am EORDER May 03, 2024 11:43am Reason for Visit Admit Date Anemia February 06, 2024 9 :25am Anemia February 26, 2024 9:09am Hypertension February 26, 2024 9:09am NSTEMI, initial episode of care February 26, 2024 9:09am Anemia April 15, 2024 10:42am Anemia April 30, 2024 7:58am Chief Complaint Admit Date INT LABS January 31, 2024 7:57am NV-NonSTEMI<12months January 31, 2024 9:15am Hospital FU-ANEMIA February 06, 2024 9 :25am chest pain February 09, 2024 3 :12pm NV-NonSTEMI<12months February 21, 2024 9:15am S/P [facility] 11/8 NONSTEMI/OK TO LEAVE PER MM M February 26, 2024 9:09am E ORDER February 26, 2024 10:06am NV-NonSTEMI<12months March 08, 2024 6 :14am CHEST PAIN March 10, 2024 8: 18pm Test Result April 30, 2024 7:58am EORDER May 03, 2024 11:43am CHEST PAIN May 27, 2024 1:2 8am CHEST PAIN May 27, 2024 2:2 7am CHEST PAIN May 27, 2024 3:0 4pm Reason for Visit Admit Date Anemia February 06, 2024 9 :25am Anemia February 26, 2024 9:09am Hypertension February 26, 2024 9:09am NSTEMI, initial episode of care February 26, 2024 9:09am Anemia April 15, 2024 10:42am Anemia April 30, 2024 7:58am Chest pain May 27, 2024 1:2 8am Chief Complaint Admit Date Test Result April 30, 2024 7:58am EORDER May 03, 2024 11:43am CHEST PAIN May 27, 2024 1:2 8am CHEST PAIN May 27, 2024 2:2 7am CHEST PAIN May 27, 2024 3:0 4pm 1 M FU May 29, 2024 7:4 5am 3 M FU May 31, 2024 9:0 2am chest pain July 03, 2024 6:0 9pm CHEST PAIN July 25, 2024 7:02p m 2 M FU July 30, 2024 8:18a m Reason for Visit Admit Date Anemia April 15, 2024 10:42am Anemia April 30, 2024 7:58am Chest pain May 27, 2024 1:2 8am Anemia May 29, 2024 7:4 5am Hypertension May 31, 2024 9:0 2am Chest pain May 31, 2024 9:0 2am Hypertension July 30, 2024 8:18a m Summary Purpose Family History No Family History Records FoundNo Family History Records FoundNo Family History Records FoundNo Family History Records Found Additional Source Comments Source Comments (unrecognize d section and content) In the event this informatio n is protected by the Federal Confidentiality of Alcohol and Drug Abuse Patient Records regulations: The Federal rules restrict any use of the information to criminally investigate or prosecute any alcohol or drug abuse patient.[facility] the event this information is protected by the Federal Confidentiality of Alcohol and Drug Abuse Patient Records regulations: The Federal rules restrict any use of the information to criminally investigate or prosecute any alcohol or drug abuse patient.[facility] the event this information is protected by the Federal Confidentiality of Alcohol and Drug Abuse Patient Records regulations: The Federal rules restrict any use of the information to criminally investigate or prosecute any alcohol or drug abuse patient.[facility] the event this information is protected by the Federal Confidentiality of Alcohol and Drug Abuse Patient Records regulations: The Federal rules restrict any use of the information to criminally investigate or prosecute any alcohol or drug abuse patient.[facility] the event this information is protected by the Federal Confidentiality of Alcohol and Drug Abuse Patient Records regulations: The Federal rules restrict any use of the information to criminally investigate or prosecute any alcohol or drug abuse patient.[facility] the event this information is protected by the Federal Confidentiality of Alcohol and Drug Abuse Patient Records regulations: The Federal rules restrict any use of the information to criminally investigate or prosecute any alcohol or drug abuse patient.[facility] the event this information is protected by the Federal Confidentiality of Alcohol and Drug Abuse Patient Records regulations: The Federal rules restrict any use of the information to criminally investigate or prosecute any alcohol or drug abuse patient.[facility] the event this information is protected by the Federal Confidentiality of Alcohol and Drug Abuse Patient Records regulations: The Federal rules restrict any use of the information to criminally investigate or prosecute any alcohol or drug abuse patient.[facility] the event this information is protected by the Federal Confidentiality of Alcohol and Drug Abuse Patient Records regulations: The Federal rules restrict any use of the information to criminally investigate or prosecute any alcohol or drug abuse patient.[facility] the event this information is protected by the Federal Confidentiality of Alcohol and Drug Abuse Patient Records regulations: The Federal rules restrict any use of the information to criminally investigate or prosecute any alcohol or drug abuse patient.[facility] the event this information is protected by the Federal Confidentiality of Alcohol and Drug Abuse Patient Records regulations: The Federal rules restrict any use of the information to criminally investigate or prosecute any alcohol or drug abuse patient.[facility]In the event this information is protected by the Federal Confidentiality of Alcohol and Drug Abuse Patient Records regulations: The Federal rules restrict any use of the information to criminally investigate or prosecute any alcohol or drug abuse patient.[facility] CampusIn the event this information is protected by the Federal Confidentiality of Alcohol and Drug Abuse Patient Records regulations: The Federal rules restrict any use of the information to criminally investigate or prosecute any alcohol or drug abuse patient.[facility] CampusIn the event this information is protected by the Federal Confidentiality of Alcohol and Drug Abuse Patient Records regulations: The Federal rules restrict any use of the information to criminally investigate or prosecute any alcohol or drug abuse patient.[facility] CampusIn the event this information is protected by the Federal Confidentiality of Alcohol and Drug Abuse Patient Records regulations: The Federal rules restrict any use of the information to criminally investigate or prosecute any alcohol or drug abuse patient.[facility] CampusIn the event this information is protected by the Federal Confidentiality of Alcohol and Drug Abuse Patient Records regulations: The Federal rules restrict any use of the information to criminally investigate or prosecute any alcohol or drug abuse patient.[facility] CampusIn the event this information is protected by the Federal Confidentiality of Alcohol and Drug Abuse Patient Records regulations: The Federal rules restrict any use of the information to criminally investigate or prosecute any alcohol or drug abuse patient.[facility] CampusIn the event this information is protected by the Federal Confidentiality of Alcohol and Drug Abuse Patient Records regulations: The Federal rules restrict any use of the information to criminally investigate or prosecute any alcohol or drug abuse patient.[facility] CampusIn the event this information is protected by the Federal Confidentiality of Alcohol and Drug Abuse Patient Records regulations: The Federal rules restrict any use of the information to criminally investigate or prosecute any alcohol or drug abuse patient.[facility] CampusIn the event this information is protected by the Federal Confidentiality of Alcohol and Drug Abuse Patient Records regulations: The Federal rules restrict any use of the information to criminally investigate or prosecute any alcohol or drug abuse patient.[facility] CampusIn the event this information is protected by the Federal Confidentiality of Alcohol and Drug Abuse Patient Records regulations: The Federal rules restrict any use of the information to criminally investigate or prosecute any alcohol or drug abuse patient.[facility] CampusIn the event this information is protected by the Federal Confidentiality of Alcohol and Drug Abuse Patient Records regulations: The Federal rules restrict any use of the information to criminally investigate or prosecute any alcohol or drug abuse patient.[facility] CampusIn the event this information is protected by the Federal Confidentiality of Alcohol and Drug Abuse Patient Records regulations: The Federal rules restrict any use of the information to criminally investigate or prosecute any alcohol or drug abuse patient.[facility] CampusIn the event this information is protected by the Federal Confidentiality of Alcohol and Drug Abuse Patient Records regulations: The Federal rules restrict any use of the information to criminally investigate or prosecute any alcohol or drug abuse patient.[facility] CampusIn the event this information is protected by the Federal Confidentiality of Alcohol and Drug Abuse Patient Records regulations: The Federal rules restrict any use of the information to criminally investigate or prosecute any alcohol or drug abuse patient.[facility] CampusIn the event this information is protected by the Federal Confidentiality of Alcohol and Drug Abuse Patient Records regulations: The Federal rules restrict any use of the information to criminally investigate or prosecute any alcohol or drug abuse patient.[facility] CampusIn the event this information is protected by the Federal Confidentiality of Alcohol and Drug Abuse Patient Records regulations: The Federal rules restrict any use of the information to criminally investigate or prosecute any alcohol or drug abuse patient.[facility] CampusIn the event this information is protected by the Federal Confidentiality of Alcohol and Drug Abuse Patient Records regulations: The Federal rules restrict any use of the information to criminally investigate or prosecute any alcohol or drug abuse patient.[facility] CampusIn the event this information is protected by the Federal Confidentiality of Alcohol and Drug Abuse Patient Records regulations: The Federal rules restrict any use of the information to criminally investigate or prosecute any alcohol or drug abuse patient.[facility] CampusIn the event this information is protected by the Federal Confidentiality of Alcohol and Drug Abuse Patient Records regulations: The Federal rules restrict any use of the information to criminally investigate or prosecute any alcohol or drug abuse patient.[facility] CampusIn the event this information is protected by the Federal Confidentiality of Alcohol and Drug Abuse Patient Records regulations: The Federal rules restrict any use of the information to criminally investigate or prosecute any alcohol or drug abuse patient.[facility] CampusIn the event this information is protected by the Federal Confidentiality of Alcohol and Drug Abuse Patient Records regulations: The Federal rules restrict any use of the information to criminally investigate or prosecute any alcohol or drug abuse patient.[facility] CampusIn the event this information is protected by the Federal Confidentiality of Alcohol and Drug Abuse Patient Records regulations: The Federal rules restrict any use of the information to criminally investigate or prosecute any alcohol or drug abuse patient.[facility] CampusIn the event this information is protected by the Federal Confidentiality of Alcohol and Drug Abuse Patient Records regulations: The Federal rules restrict any use of the information to criminally investigate or prosecute any alcohol or drug abuse patient.[facility] CampusIn the event this information is protected by the Federal Confidentiality of Alcohol and Drug Abuse Patient Records regulations: The Federal rules restrict any use of the information to criminally investigate or prosecute any alcohol or drug abuse patient.[facility] CampusIn the event this information is protected by the Federal Confidentiality of Alcohol and Drug Abuse Patient Records regulations: The Federal rules restrict any use of the information to criminally investigate or prosecute any alcohol or drug abuse patient.[facility] CampusIn the event this information is protected by the Federal Confidentiality of Alcohol and Drug Abuse Patient Records regulations: The Federal rules restrict any use of the information to criminally investigate or prosecute any alcohol or drug abuse patient.[facility] CampusIn the event this information is protected by the Federal Confidentiality of Alcohol and Drug Abuse Patient Records regulations: The Federal rules restrict any use of the information to criminally investigate or prosecute any alcohol or drug abuse patient.[facility] CampusIn the event this information is protected by the Federal Confidentiality of Alcohol and Drug Abuse Patient Records regulations: The Federal rules restrict any use of the information to criminally investigate or prosecute any alcohol or drug abuse patient.[facility] CampusIn the event this information is protected by the Federal Confidentiality of Alcohol and Drug Abuse Patient Records regulations: The Federal rules restrict any use of the information to criminally investigate or prosecute any alcohol or drug abuse patient.[facility] CampusIn the event this information is protected by the Federal Confidentiality of Alcohol and Drug Abuse Patient Records regulations: The Federal rules restrict any use of the information to criminally investigate or prosecute any alcohol or drug abuse patient.[facility] CampusIn the event this information is protected by the Federal Confidentiality of Alcohol and Drug Abuse Patient Records regulations: The Federal rules restrict any use of the information to criminally investigate or prosecute any alcohol or drug abuse patient.[facility] CampusIn the event this information is protected by the Federal Confidentiality of Alcohol and Drug Abuse Patient Records regulations: The Federal rules restrict any use of the information to criminally investigate or prosecute any alcohol or drug abuse patient.[facility] CampusIn the event this information is protected by the Federal Confidentiality of Alcohol and Drug Abuse Patient Records regulations: The Federal rules restrict any use of the information to criminally investigate or prosecute any alcohol or drug abuse patient.[facility] CampusIn the event this information is protected by the Federal Confidentiality of Alcohol and Drug Abuse Patient Records regulations: The Federal rules restrict any use of the information to criminally investigate or prosecute any alcohol or drug abuse patient.[facility] CampusIn the event this information is protected by the Federal Confidentiality of Alcohol and Drug Abuse Patient Records regulations: The Federal rules restrict any use of the information to criminally investigate or prosecute any alcohol or drug abuse patient.[facility] CampusIn the event this information is protected by the Federal Confidentiality of Alcohol and Drug Abuse Patient Records regulations: The Federal rules restrict any use of the information to criminally investigate or prosecute any alcohol or drug abuse patient.[facility] CampusIn the event this information is protected by the Federal Confidentiality of Alcohol and Drug Abuse Patient Records regulations: The Federal rules restrict any use of the information to criminally investigate or prosecute any alcohol or drug abuse patient.[facility] CampusIn the event this information is protected by the Federal Confidentiality of Alcohol and Drug Abuse Patient Records regulations: The Federal rules restrict any use of the information to criminally investigate or prosecute any alcohol or drug abuse patient.[facility] CampusIn the event this information is protected by the Federal Confidentiality of Alcohol and Drug Abuse Patient Records regulations: The Federal rules restrict any use of the information to criminally investigate or prosecute any alcohol or drug abuse patient.[facility] CampusIn the event this information is protected by the Federal Confidentiality of Alcohol and Drug Abuse Patient Records regulations: The Federal rules restrict any use of the information to criminally investigate or prosecute any alcohol or drug abuse patient.[facility] CampusIn the event this information is protected by the Federal Confidentiality of Alcohol and Drug Abuse Patient Records regulations: The Federal rules restrict any use of the information to criminally investigate or prosecute any alcohol or drug abuse patient.[facility] CampusIn the event this information is protected by the Federal Confidentiality of Alcohol and Drug Abuse Patient Records regulations: The Federal rules restrict any use of the information to criminally investigate or prosecute any alcohol or drug abuse patient.[facility] CampusIn the event this information is protected by the Federal Confidentiality of Alcohol and Drug Abuse Patient Records regulations: The Federal rules restrict any use of the information to criminally investigate or prosecute any alcohol or drug abuse patient.[facility] CampusIn the event this information is protected by the Federal Confidentiality of Alcohol and Drug Abuse Patient Records regulations: The Federal rules restrict any use of the information to criminally investigate or prosecute any alcohol or drug abuse patient.[facility] CampusIn the event this information is protected by the Federal Confidentiality of Alcohol and Drug Abuse Patient Records regulations: The Federal rules restrict any use of the information to criminally investigate or prosecute any alcohol or drug abuse patient.[facility] CampusIn the event this information is protected by the Federal Confidentiality of Alcohol and Drug Abuse Patient Records regulations: The Federal rules restrict any use of the information to criminally investigate or prosecute any alcohol or drug abuse patient.[facility]In the event this information is protected by the Federal Confidentiality of Alcohol and Drug Abuse Patient Records regulations: The Federal rules restrict any use of the information to criminally investigate or prosecute any alcohol or drug abuse patient.[facility] CampusIn the event this information is protected by the Federal Confidentiality of Alcohol and Drug Abuse Patient Records regulations: The Federal rules restrict any use of the information to criminally investigate or prosecute any alcohol or drug abuse patient.[facility] CampusIn the event this information is protected by the Federal Confidentiality of Alcohol and Drug Abuse Patient Records regulations: The Federal rules restrict any use of the information to criminally investigate or prosecute any alcohol or drug abuse patient.[facility] CampusIn the event this information is protected by the Federal Confidentiality of Alcohol and Drug Abuse Patient Records regulations: The Federal rules restrict any use of the information to criminally investigate or prosecute any alcohol or drug abuse patient.[facility] CampusIn the event this information is protected by the Federal Confidentiality of Alcohol and Drug Abuse Patient Records regulations: The Federal rules restrict any use of the information to criminally investigate or prosecute any alcohol or drug abuse patient.[facility] CampusIn the event this information is protected by the Federal Confidentiality of Alcohol and Drug Abuse Patient Records regulations: The Federal rules restrict any use of the information to criminally investigate or prosecute any alcohol or drug abuse patient.[facility] CampusIn the event this information is protected by the Federal Confidentiality of Alcohol and Drug Abuse Patient Records regulations: The Federal rules restrict any use of the information to criminally investigate or prosecute any alcohol or drug abuse patient.[facility] CampusIn the event this information is protected by the Federal Confidentiality of Alcohol and Drug Abuse Patient Records regulations: The Federal rules restrict any use of the information to criminally investigate or prosecute any alcohol or drug abuse patient.[facility] CampusIn the event this information is protected by the Federal Confidentiality of Alcohol and Drug Abuse Patient Records regulations: The Federal rules restrict any use of the information to criminally investigate or prosecute any alcohol or drug abuse patient.[facility] CampusIn the event this information is protected by the Federal Confidentiality of Alcohol and Drug Abuse Patient Records regulations: The Federal rules restrict any use of the information to criminally investigate or prosecute any alcohol or drug abuse patient.[facility] CampusIn the event this information is protected by the Federal Confidentiality of Alcohol and Drug Abuse Patient Records regulations: The Federal rules restrict any use of the information to criminally investigate or prosecute any alcohol or drug abuse patient.[facility] CampusIn the event this information is protected by the Federal Confidentiality of Alcohol and Drug Abuse Patient Records regulations: The Federal rules restrict any use of the information to criminally investigate or prosecute any alcohol or drug abuse patient.[facility] CampusIn the event this information is protected by the Federal Confidentiality of Alcohol and Drug Abuse Patient Records regulations: The Federal rules restrict any use of the information to criminally investigate or prosecute any alcohol or drug abuse patient.[facility] CampusIn the event this information is protected by the Federal Confidentiality of Alcohol and Drug Abuse Patient Records regulations: The Federal rules restrict any use of the information to criminally investigate or prosecute any alcohol or drug abuse patient.[facility] CampusIn the event this information is protected by the Federal Confidentiality of Alcohol and Drug Abuse Patient Records regulations: The Federal rules restrict any use of the information to criminally investigate or prosecute any alcohol or drug abuse patient.[facility] CampusIn the event this information is protected by the Federal Confidentiality of Alcohol and Drug Abuse Patient Records regulations: The Federal rules restrict any use of the information to criminally investigate or prosecute any alcohol or drug abuse patient.[facility] CampusIn the event this information is protected by the Federal Confidentiality of Alcohol and Drug Abuse Patient Records regulations: The Federal rules restrict any use of the information to criminally investigate or prosecute any alcohol or drug abuse patient.[facility] CampusIn the event this information is protected by the Federal Confidentiality of Alcohol and Drug Abuse Patient Records regulations: The Federal rules restrict any use of the information to criminally investigate or prosecute any alcohol or drug abuse patient.[facility] CampusIn the event this information is protected by the Federal Confidentiality of Alcohol and Drug Abuse Patient Records regulations: The Federal rules restrict any use of the information to criminally investigate or prosecute any alcohol or drug abuse patient.[facility] CampusIn the event this information is protected by the Federal Confidentiality of Alcohol and Drug Abuse Patient Records regulations: The Federal rules restrict any use of the information to criminally investigate or prosecute any alcohol or drug abuse patient.[facility] CampusIn the event this information is protected by the Federal Confidentiality of Alcohol and Drug Abuse Patient Records regulations: The Federal rules restrict any use of the information to criminally investigate or prosecute any alcohol or drug abuse patient.[facility] CampusIn the event this information is protected by the Federal Confidentiality of Alcohol and Drug Abuse Patient Records regulations: The Federal rules restrict any use of the information to criminally investigate or prosecute any alcohol or drug abuse patient.[facility] CampusIn the event this information is protected by the Federal Confidentiality of Alcohol and Drug Abuse Patient Records regulations: The Federal rules restrict any use of the information to criminally investigate or prosecute any alcohol or drug abuse patient.[facility] CampusIn the event this information is protected by the Federal Confidentiality of Alcohol and Drug Abuse Patient Records regulations: The Federal rules restrict any use of the information to criminally investigate or prosecute any alcohol or drug abuse patient.[facility] CampusIn the event this information is protected by the Federal Confidentiality of Alcohol and Drug Abuse Patient Records regulations: The Federal rules restrict any use of the information to criminally investigate or prosecute any alcohol or drug abuse patient.[facility] CampusIn the event this information is protected by the Federal Confidentiality of Alcohol and Drug Abuse Patient Records regulations: The Federal rules restrict any use of the information to criminally investigate or prosecute any alcohol or drug abuse patient.[facility] CampusIn the event this information is protected by the Federal Confidentiality of Alcohol and Drug Abuse Patient Records regulations: The Federal rules restrict any use of the information to criminally investigate or prosecute any alcohol or drug abuse patient.[facility] CampusIn the event this information is protected by the Federal Confidentiality of Alcohol and Drug Abuse Patient Records regulations: The Federal rules restrict any use of the information to criminally investigate or prosecute any alcohol or drug abuse patient.[facility] CampusIn the event this information is protected by the Federal Confidentiality of Alcohol and Drug Abuse Patient Records regulations: The Federal rules restrict any use of the information to criminally investigate or prosecute any alcohol or drug abuse patient.[facility] CampusIn the event this information is protected by the Federal Confidentiality of Alcohol and Drug Abuse Patient Records regulations: The Federal rules restrict any use of the information to criminally investigate or prosecute any alcohol or drug abuse patient.[facility] CampusIn the event this information is protected by the Federal Confidentiality of Alcohol and Drug Abuse Patient Records regulations: The Federal rules restrict any use of the information to criminally investigate or prosecute any alcohol or drug abuse patient.[facility] CampusIn the event this information is protected by the Federal Confidentiality of Alcohol and Drug Abuse Patient Records regulations: The Federal rules restrict any use of the information to criminally investigate or prosecute any alcohol or drug abuse patient.[facility] CampusIn the event this information is protected by the Federal Confidentiality of Alcohol and Drug Abuse Patient Records regulations: The Federal rules restrict any use of the information to criminally investigate or prosecute any alcohol or drug abuse patient.[facility] CampusIn the event this information is protected by the Federal Confidentiality of Alcohol and Drug Abuse Patient Records regulations: The Federal rules restrict any use of the information to criminally investigate or prosecute any alcohol or drug abuse patient.[facility] CampusIn the event this information is protected by the Federal Confidentiality of Alcohol and Drug Abuse Patient Records regulations: The Federal rules restrict any use of the information to criminally investigate or prosecute any alcohol or drug abuse patient.[facility] CampusIn the event this information is protected by the Federal Confidentiality of Alcohol and Drug Abuse Patient Records regulations: The Federal rules restrict any use of the information to criminally investigate or prosecute any alcohol or drug abuse patient.[facility] CampusIn the event this information is protected by the Federal Confidentiality of Alcohol and Drug Abuse Patient Records regulations: The Federal rules restrict any use of the information to criminally investigate or prosecute any alcohol or drug abuse patient.[facility] CampusIn the event this information is protected by the Federal Confidentiality of Alcohol and Drug Abuse Patient Records regulations: The Federal rules restrict any use of the information to criminally investigate or prosecute any alcohol or drug abuse patient.[facility] CampusIn the event this information is protected by the Federal Confidentiality of Alcohol and Drug Abuse Patient Records regulations: The Federal rules restrict any use of the information to criminally investigate or prosecute any alcohol or drug abuse patient.[facility] CampusIn the event this information is protected by the Federal Confidentiality of Alcohol and Drug Abuse Patient Records regulations: The Federal rules restrict any use of the information to criminally investigate or prosecute any alcohol or drug abuse patient.[facility] CampusIn the event this information is protected by the Federal Confidentiality of Alcohol and Drug Abuse Patient Records regulations: The Federal rules restrict any use of the information to criminally investigate or prosecute any alcohol or drug abuse patient.[facility] CampusIn the event this information is protected by the Federal Confidentiality of Alcohol and Drug Abuse Patient Records regulations: The Federal rules restrict any use of the information to criminally investigate or prosecute any alcohol or drug abuse patient.[facility] CampusIn the event this information is protected by the Federal Confidentiality of Alcohol and Drug Abuse Patient Records regulations: The Federal rules restrict any use of the information to criminally investigate or prosecute any alcohol or drug abuse patient.[facility] CampusIn the event this information is protected by the Federal Confidentiality of Alcohol and Drug Abuse Patient Records regulations: The Federal rules restrict any use of the information to criminally investigate or prosecute any alcohol or drug abuse patient.[facility] CampusIn the event this information is protected by the Federal Confidentiality of Alcohol and Drug Abuse Patient Records regulations: The Federal rules restrict any use of the information to criminally investigate or prosecute any alcohol or drug abuse patient.[facility] CampusIn the event this information is protected by the Federal Confidentiality of Alcohol and Drug Abuse Patient Records regulations: The Federal rules restrict any use of the information to criminally investigate or prosecute any alcohol or drug abuse patient.[facility] CampusIn the event this information is protected by the Federal Confidentiality of Alcohol and Drug Abuse Patient Records regulations: The Federal rules restrict any use of the information to criminally investigate or prosecute any alcohol or drug abuse patient.[facility] CampusIn the event this information is protected by the Federal Confidentiality of Alcohol and Drug Abuse Patient Records regulations: The Federal rules restrict any use of the information to criminally investigate or prosecute any alcohol or drug abuse patient.[facility] CampusIn the event this information is protected by the Federal Confidentiality of Alcohol and Drug Abuse Patient Records regulations: The Federal rules restrict any use of the information to criminally investigate or prosecute any alcohol or drug abuse patient.[facility] Reason for Visit (unrecogniz ed section and content) Reason Comments Joint Pain Specialty Diagnoses / Procedures Referred By Contac t Referred To Contact Diagnoses Rheumatoid arthritis involving both hands with positive rheumatoid factor (HCC) Procedures INJECTION, RENFLEXIS INJECTION, RENFLEXIS Renflexis Robert Farias MD [address] [place] [address] [facility] [address] [place] [address] Referral ID Status Reason Start Date Expiration Date Visits Requested Visits Authorized [id number] Authorized OON/Self Pay Override Patient Cleared INN/SMCP Payor Auth Obtained Patient Cleared - Admin/Chairm an/Director advise to proceed or did not respond 08/13/2021 08/03/2024 7 28 Reason Comments Chemotherapy Treatment Specialty Diagnoses / Procedures Referred By Contac t Referred To Contact Diagnoses Rheumatoid arthritis involving both hands with positive rheumatoid factor (HCC) Procedures INJECTION, RENFLEXIS Robert Hinojosa MD [address] [address] [facility] [place] [address] [place] [address] Referral ID Status Reason Start Date Expiration Date Visits Requested Visits Authorized [id number] Authorized OON/Self Pay Override Patient Cleared INN/SMCP Payor Auth Obtained Patient Cleared - Admin/Chairm an/Director advise to proceed or did not respond 08/13/2021 08/27/2023 7 21 Reason Comments Infusion Specialty Diagnoses / Procedures Referred By Contac t Referred To Contact Diagnoses Rheumatoid arthritis involving both hands with positive rheumatoid factor (HCC) Procedures Robert Hinojosa MD [address] [address] [facility] [address] [place] [address] Referral ID Status Reason Start Date Expiration Date Visits Requested Visits Authorized [id number] Authorized OON/Self Pay Override Patient Cleared INN/SMCP Payor Auth Obtained Patient Cleared - Admin/Chairm an/Director advise to proceed 08/13/2021 08/13/2022 12 24 Specialty Diagnoses / Procedures Referred By Contac t Referred To Contact RHEUMATOLOGY Diagnoses Rheumatoid arthritis with rheumatoid factor of right hand without organ or systems involvement Procedures office visit Robert Farias MD [address] [place] [address] [place] [address] Referral ID Status Reason Start Date Expiration Date Visits Requested Visits Authorized [id number] Pending Review OON/Self Pay Override 12/04/2021 03/04/2022 1 1 Reason Comments New Patient old records here Status Reason Specialty Diagnoses / Procedures Referred By Contact Referred To Contact Closed OON/Self Pay Override RHEUMATOLOGY Diagnoses Rheumatoid arthritis (HCC) Procedures EST PATIENT VISIT LEVEL 4 Office Visit Robert Farias [address] [place] [address] [facility] [address] [place] [address] Reason Comments Medication Authorization remicade Reason Comments Pending PA Renflexis fax pendin g with [facility] Reason Comments Phone Call Reason Comments Patient Update Referral ID Status Reason Start Date Expiration Date Visits Requested Visits Authorized [id number] Authorized OON/Self Pay Override Patient Cleared INN/SMCP Payor Auth Obtained 08/04/2020 08/04/2021 12 12 Reason Comments Hip Pain Reason Comments APPROVED Humira Pen APPROVED [id number] 07.04.2021 - 07.21.2022 with [facility]/cover my meds Reason Comments Refill Request Reason Comments PENDING Renflexis PENDING [facility] fax with office note pt scheduled Reason Onset Date Comments Refill Request 09/10/2021 Reason Comments Patient Question Reason Onset Date Comments Refill Request 09/29/2021 Specialty Diagnoses / Procedures Referred By Contac t Referred To Contact Diagnoses Rheumatoid arthritis involving both hands with positive rheumatoid factor (HCC) Procedures Renflexis Robert Farias MD [address] [id number] [facility] [address] [place] [address] Specialty Diagnoses / Procedures Referred By Contac t Referred To Contact RHEUMATOLOGY Diagnoses Rheumatoid arthritis (HCC) Procedures follow up Robert Farias MD [address] [address] [place] [address] [place] [address] Referral ID Status Reason Start Date Expiration Date Visits Requested Visits Authorized [id number] Pending Review OON/Self Pay Override 10/04/2021 01/02/2022 1 1 Reason Onset Date Comments Refill Request 01/12/2022 Reason Comments Mate Fourth - Other Reason Onset Date Comments Refill Request 02/07/2022 Specialty Diagnoses / Procedures Referred By Contac t Referred To Contact RHEUMATOLOGY Diagnoses Rheumatoid arthritis with rheumatoid factor of right hand without organ or systems involvement Procedures FOLLOW-UP E-ASSESSMENT Robert Farias MD [address] [place] [address] [facility] [place] [address] Referral ID Status Reason Start Date Expiration Date Visits Requested Visits Authorized [id number] Pending Review OON/Self Pay Override 04/06/2022 10/03/2022 1 1 Specialty Diagnoses / Procedures [facility] Referred To Contact Diagnoses Rheumatoid arthritis involving both hands with positive rheumatoid factor (HCC) Procedures INJECTION, RENFLEXIS Renflexis Robert Farias MD [address] [place] [address] [facility] [address] [place] [address] Referral ID Status Reason Start Date Expiration Date Visits Requested Visits Authorized [id number] Pending Review OON/Self Pay Override Patient Cleared INN/SMCP Payor Auth Obtained Patient Cleared - Admin/Chair man/Directo r advise to proceed or did not respond 08/13/2021 08/27/2023 7 21 Reason Onset Date Comments Refill Request 12/19/2022 Referral ID Status Reason Start Date Expiration Date Visits Requested Visits Authorized [id number] Pending Review OON/Self Pay Override 09/04/2022 03/03/2023 2 2 Reason Comments Medication Request Renflexis Order Reason Onset Date Comments Refill Request 02/01/2023 Specialty Diagnoses / Procedures Referred By Contac t Referred To Contact RHEUMATOLOGY Diagnoses Rheumatoid arthritis with rheumatoid factor of right hand without organ or systems involvement Procedures FOLLOW-UP E-ASSESSMENT Robert Farias MD [address] [place] [address] [place] [address] [facility] [address] [place] [address] Referral ID Status Reason Start Date Expiration Date Visits Requested Visits Authorized [id number] Pending Review OON/Self Pay Override 05/04/2023 1 1 Reason Onset Date Comments Refill Request 04/24/2023 Reason Onset Date Comments Refill Request 06/05/2023 Reason Onset Date Comments Refill Request 07/25/2023 Reason Onset Date Comments Refill Request 08/02/2023 Reason Comments Medication Preauthorization Renflexis- S tow Approved [id number] [facility]/Faxed 08.04.23-08.03.24 Reason Comments Rheumatoid Arthritis Specialty Diagnoses / Procedures Referred By Contac t Referred To Contact RHEUMATOLOGY Diagnoses Rheumatoid arthritis with rheumatoid factor of right hand without organ or systems involvement Procedures FOLLOW-UP E-ASSESSMENT Robert Farias MD [address] [place] [address] [place] [address] Referral ID Status Reason Start Date Expiration Date Visits Requested Visits Authorized [id number] Pending Review OON/Self Pay Override 05/08/2023 10/04/2023 1 1 Reason Onset Date Comments Refill Request 10/13/2023 Reason Onset Date Comments Refill Request 11/02/2023 Reason Onset Date Comments Refill Request 11/20/2023 Reason Onset Date Comments Refill Request 04/05/2024 Reason Comments RENFLEXIS - PENDING Renflexis, [place] - PE NDING [id number] [facility] Specialty Diagnoses / Procedures Referred By Contac t Referred To Contact Diagnoses Rheumatoid arthritis involving both hands with positive rheumatoid factor (HCC) Procedures INJECTION, RENFLEXCheyenne Arreola PA-C [address] [place] [address] Phone: tel: fax: Hematology/Oncology [address] [place] [address] Phone: tel: fax: Referral ID Status Reason Start Date Expiration Date Visits Requested Visits Authorized [id number] Authorized OON/Self Pay Override 09/13/2023 08/02/2024 2 6 Reason Comments Rheumatoid Arthritis Specialty Diagnoses / Procedures Referred By Contac t Referred To Contact RHEUMATOLOGY Diagnoses Rheumatoid arthritis with rheumatoid factor of right hand without organ or systems involvement Procedures FOLLOW-UP E-ASSESSMENT Robert Farias MD [address] [place] [address] Phone: tel: fax: [facility] General [place] [place] [address] Phone: tel: fax: Referral ID Status Reason Start Date Expiration Date Visits Requested Visits Authorized [id number] New Request OON/Self Pay Override 02/05/2024 07/03/2024 1 1 Reason Comments RENFLEXIS - PENDING Kirill Contreras - [place] NDING [id number] [employer] Teams (unrecognized sec tion and content) Team Status: Active Member Role Status Sakshi Greco MD Primary Care Provider Active Team Status: Inactive Member Role Status Sakshi Greco MD Primary Care Provider Active St art: January 31, 2024 End: January 31, 2024 Xiang Rogers UNIT SECRETARY, UNIT SECRETARY-C Attending Provider Active S tart: January 31, 2024 End: January 31, 2024 Xiang Rogers NP, UNIT SECRETARY-C Referring Provider Active S tart: January 31, 2024 End: January 31, 2024 Team Status: Inactive Member Role Status Sakshi Greco MD Primary Care Provider Active St art: January 31, 2024 End: February 03, 2024 Dr. Jose Mondragon MD Attending Provider Active Start: January 31, 2024 End: February 03, 2024 Dr. Jose Mondragon MD Referring Provider Active Start: January 31, 2024 End: February 03, 2024 Team Status: Inactive Member Role Status Sakshi Greco MD Primary Care Provider Active St art: February 06, 2024 End: February 06, 2024 Paul Greco MD Referring Provider Active Start : February 06, 2024 End: February 06, 2024 NELA Solo Attending Provider Active Start: February 06, 2024 End: February 06, 2024 Team Status: Inactive Member Role Status Sakshi Greco MD Primary Care Provider Active St art: February 09, 2024 End: February 09, 2024 Paul Greco MD Attending Provider Active Start : February 09, 2024 End: February 09, 2024 Paul Greco MD Referring Provider Active Start : February 09, 2024 End: February 09, 2024 Team Status: Inactive Member Role Status Sakshi Greco MD Primary Care Provider Active St art: February 09, 2024 End: February 09, 2024 Dr. Gustabo العلي DO Attending Provider Active Start : February 09, 2024 End: February 09, 2024 Dr. Gustabo العلي DO Emergency Provider Active Start : February 09, 2024 End: February 09, 2024 Team Status: Inactive Member Role Status Sakshi Greco MD Primary Care Provider Active St art: February 21, 2024 End: March 05, 2024 Dr. Jose Mondragon MD Attending Provider Active Start: February 21, 2024 End: March 05, 2024 Dr. Jose Mondragon MD Referring Provider Active Start: February 21, 2024 End: March 05, 2024 Team Status: Inactive Member Role Status Sakshi Greco MD Primary Care Provider Active St art: February 26, 2024 End: February 26, 2024 Paul Greco MD Referring Provider Active Start : February 26, 2024 End: February 26, 2024 Ana Rosa [place], [place] Attending Provider Active Start: February 26, 2024 End: February 26, 2024 Team Status: Inactive Member Role Status Sakshi Greco MD Primary Care Provider Active St art: February 26, 2024 End: February 26, 2024 NELA Luo Attending Provider Active Start: February 26, 2024 End: February 26, 2024 NELA Luo Referring Provider Active Start: February 26, 2024 End: February 26, 2024 Team Status: Inactive Member Role Status Sakshi Greco MD Primary Care Provider Active St art: March 08, 2024 End: April 05, 2024 Dr. Jose Mondragon MD Attending Provider Active Start: March 08, 2024 End: April 05, 2024 Dr. Jose Mondragon MD Referring Provider Active Start: March 08, 2024 End: April 05, 2024 Team Status: Inactive Member Role Status Sakshi Greco MD Primary Care Provider Active St art: March 10, 2024 End: March 11, 2024 Zurdo Polo MD Attending Provider Active Star t: March 10, 2024 End: March 11, 2024 Zurdo Polo MD Emergency Provider Active Star t: March 10, 2024 End: March 11, 2024 Team Status: Inactive Member Role Status Sakshi Greco MD Primary Care Provider Active St art: April 15, 2024 End: April 15, 2024 Paul Greco MD Referring Provider Active Start : April 15, 2024 End: April 15, 2024 Dr. Ken Xie DO Attending Provider Active Start: April 15, 2024 End: April 15, 2024 Team Status: Active Member Role Status Sakshi Greco MD Primary Care Provider Active St art: April 15, 2024 Paul Greco MD Referring Provider Active Start : April 15, 2024 Dr. Ken Xie DO Attending Provider Active Start: April 15, 2024 Dr. Ken Xie DO Other Provider Active St art: April 15, 2024 Team Status: Inactive Member Role Status Sakshi Greco MD Primary Care Provider Active St art: April 30, 2024 End: April 30, 2024 Paul Greco MD Referring Provider Active Start : April 30, 2024 End: April 30, 2024 NELA Solo Attending Provider Active Start: April 30, 2024 End: April 30, 2024 Team Status: Inactive Member Role Status Sakshi Greco MD Primary Care Provider Active St art: May 03, 2024 End: May 03, 2024 NELA Solo Attending Provider Active Start: May 03, 2024 End: May 03, 2024 Team Status: Inactive Member Role Status Sakshi Greco MD Primary Care Provider Active St art: May 27, 2024 End: May 27, 2024 Dr. Natalie Gaspar MD Admit Provider Active St art: May 27, 2024 End: May 27, 2024 Dr. Natalie Gaspar MD Other Provider Active St art: May 27, 2024 End: May 27, 2024 Dr. Isael Baeza DO Attending Provider Active Start: May 27, 2024 End: May 27, 2024 Team Status: Active Member Role Status Sakshi Greco MD Primary Care Provider Active St art: May 27, 2024 Dr. Natalie Gaspar MD Admit Provider Active St art: May 27, 2024 Dr. Natalie Gaspar MD Attending Provider Active Start: May 27, 2024 Dr. Natalie Gaspar MD Other Provider Active St art: May 27, 2024 Team Status: Active Member Role Status Sakshi Greco MD Primary Care Provider Active St art: May 27, 2024 Dr. Natalie Gaspar MD Admit Provider Active St art: May 27, 2024 Dr. Natalie Gaspar MD Other Provider Active St art: May 27, 2024 Dr. Isael Baeza DO Other Provider Active S tart: May 27, 2024 Dr. Colby Davey MD Attending Provider Active S tart: May 27, 2024 Sports Medicine Specialist Relationship Specialty Start Date End Date Edis Trejo [address] [place] [address] PCP - General Family Practice 04/07/20 Sports Medicine Specialist Relationship Specialty Start Date End Date Edis Trejo [address] [place] [address] PCP - General Family Practice 04/07/20 Sports Medicine Specialist Relationship Specialty Start Date End Date Edis Trejo [address] [place] [address] PCP - General Family Practice 04/07/20 Sports Medicine Specialist Relationship Specialty Start Date End Date Edis Trejo [address] [place] [address] PCP - General Family Practice 04/07/20 Sports Medicine Specialist Relationship Specialty Start Date End Date Edis Trejo [address] [place] [address] PCP - General Family Practice 04/07/20 Sports Medicine Specialist Relationship Specialty Start Date End Date Edis Trejo [address] [place] [address] PCP - General Family Practice 04/07/20 Sports Medicine Specialist Relationship Specialty Start Date End Date Edis Trejo [address] [place] [address] PCP - General Family Practice 04/07/20 Sports Medicine Specialist Relationship Specialty Start Date End Date Edis Trejo [address] [place] [address] PCP - General Family Practice 04/07/20 Sports Medicine Specialist Relationship Specialty Start Date End Date Edis Trejo [address] [place] [address] PCP - General Family Practice 04/07/20 Sports Medicine Specialist Relationship Specialty Start Date End Date Edis Trejo [address] [place] [address] PCP - General Family Practice 04/07/20 Sports Medicine Specialist Relationship Specialty Start Date End Date Edis Trejo [address] [place] [address] PCP - General Family Practice 04/07/20 Sports Medicine Specialist Relationship Specialty Start Date End Date Edis Trejo [address] [place] [address] PCP - General Family Medicine 04/07/20 Sports Medicine Specialist Relationship Specialty Start Date End Date Edis Trejo [address] [place] [address] PCP - General Family Medicine 04/07/20 Sports Medicine Specialist Relationship Specialty Start Date End Date Edis Trejo [address] [place] [address] PCP - General Family Medicine 04/07/20 Sports Medicine Specialist Relationship Specialty Start Date End Date Edis Trejo [address] [place] [address] PCP - General Family Medicine 04/07/20 Sports Medicine Specialist Relationship Specialty Start Date End Date Edis Trejo DO [address] [place] [address] PCP - General Family Medicine 04/07/20 Sports Medicine Specialist Relationship Specialty Start Date End Date Edis Trejo DO [address] [place] [address] PCP - General Family Medicine 04/07/20 Sports Medicine Specialist Relationship Specialty Start Date End Date Edis Trejo DO [address] [place] [address] PCP - General Family Medicine 04/07/20 Sports Medicine Specialist Relationship Specialty Start Date End Date Edis Trejo DO [address] [place] [address] PCP - General Family Medicine 04/07/20 Sports Medicine Specialist Relationship Specialty Start Date End Date Edis Trejo DO [address] [place] [address] PCP - General Family Medicine 04/07/20 Team Status: Active Member Role Status Dates Dr. Jaren Huerta MD Family Provider Active Alisa Escobar DO Primary Care Provider Active Team Status: Inactive Member Role Status Dates Alisa Escobar , Primary Care Provi lorna, Attending Provider, Referring Provider Active Sports Medicine Specialist Relationship Specialty Start Date End Date Edis Trejo DO [address] [place] [address] PCP - General Family Medicine 04/07/20 Sports Medicine Specialist Relationship Specialty Start Date End Date Edis Trejo DO [address] [place] [address] PCP - General Family Medicine 04/07/20 Sports Medicine Specialist Relationship Specialty Start Date End Date Edis Trejo DO [address] [place] [address] PCP - General Family Medicine 04/07/20 Sports Medicine Specialist Relationship Specialty Start Date End Date Edis Trejo DO [address] [place] [address] PCP - General Family Medicine 04/07/20 Sports Medicine Specialist Relationship Specialty Start Date End Date Edis Trejo DO [address] [place] [address] PCP - General Family Medicine 04/07/20 Sports Medicine Specialist Relationship Specialty Start Date End Date Edis Trejo DO [address] [place] [address] PCP - General Family Medicine 04/07/20 Sports Medicine Specialist Relationship Specialty Start Date End Date Edis Trejo DO [address] [place] [address] PCP - General Family Medicine 04/07/20 Team Status: Active Member Role Status Dates Alisa Escobar , Primary Care Provi lorna, Referring Provider, Other Provider Active Dr. Morgan Duarte DO Attending Provider Active Sports Medicine Specialist Relationship Specialty Start Date End Date Edis Trejo DO [address] [place] [address] PCP - General Family Medicine 04/07/20 Sports Medicine Specialist Relationship Specialty Start Date End Date Edis Trejo DO [address] [place] [address] PCP - General Family Medicine 04/07/20 Sports Medicine Specialist Relationship Specialty Start Date End Date Edis Trejo DO [address] [place] [address] PCP - General Family Medicine 04/07/20 Sports Medicine Specialist Relationship Specialty Start Date End Date Edis Trejo DO [address] [place] [address] PCP - General Family Medicine 04/07/20 Sports Medicine Specialist Relationship Specialty Start Date End Date Edis Trejo DO [address] [place] [address] PCP - General Family Medicine 04/07/20 Sports Medicine Specialist Relationship Specialty Start Date End Date Edis Trejo DO [address] [place] [address] PCP - General Family Medicine 04/07/20 Sports Medicine Specialist Relationship Specialty Start Date End Date Edis Trejo DO [address] [place] [address] PCP - General Family Medicine 04/07/20 Sports Medicine Specialist Relationship Specialty Start Date End Date Edis Trejo DO [address] [place] [address] PCP - General Family Medicine 04/07/20 Sports Medicine Specialist Relationship Specialty Start Date End Date Edis Trejo DO [address] [place] [address] PCP - General Family Medicine 04/07/20 Sports Medicine Specialist Relationship Specialty Start Date End Date Edis Trejo DO [address] [place] [address] PCP - General Family Medicine 04/07/20 Sports Medicine Specialist Relationship Specialty Start Date End Date Edis Trejo DO [address] [place] [address] PCP - General Family Medicine 04/07/20 Sports Medicine Specialist Relationship Specialty Start Date End Date Edis Trejo DO [address] [place] [address] PCP - General Family Medicine 04/07/20 Sports Medicine Specialist Relationship Specialty Start Date End Date Edis Trejo DO [address] [place] [address] PCP - General Family Medicine 04/07/20 Sports Medicine Specialist Relationship Specialty Start Date End Date Edis Trejo DO [address] [place] [address] PCP - General Family Medicine 04/07/20 Sports Medicine Specialist Relationship Specialty Start Date End Date Edis Trejo DO [address] [place] [address] PCP - General Family Medicine 04/07/20 Sports Medicine Specialist Relationship Specialty Start Date End Date Edis Trejo DO [address] [place] [id number] PCP - General Family Medicine 04/07/20 Sports Medicine Specialist Relationship Specialty Start Date End Date Paul Greco MD [address] [place] [address] PCP - General Internal Medicine 09/29/23 Sports Medicine Specialist Relationship Specialty Start Date End Date Paul Greco MD [address] [place] [address] PCP - General Internal Medicine 09/29/23 Sports Medicine Specialist Relationship Specialty Start Date End Date Paul Greco MD [address] [place] [address] PCP - General Internal Medicine 09/29/23 Sports Medicine Specialist Relationship Specialty Start Date End Date Paul Greco MD [address] [place] [address] PCP - General Internal Medicine 09/29/23 Sports Medicine Specialist Relationship Specialty Start Date End Date Paul Greco MD [address] [place] [address] PCP - General Internal Medicine 09/29/23 Sports Medicine Specialist Relationship Specialty Start Date End Date Paul Greco MD [address] [place] [address] PCP - General Internal Medicine 09/29/23 Sports Medicine Specialist Relationship Specialty Start Date End Date Paul Greco MD [address] [place] [address] PCP - General Internal Medicine 09/29/23 Sports Medicine Specialist Relationship Specialty Start Date End Date Paul Greco MD [address] [facility] [address] [place], [place] [id number] PCP - General Internal Medicine 09/29/23 Sports Medicine Specialist Relationship Specialty Start Date End Date Paul Greco MD [address] [facility] [address] [place], [place] [phone] PCP - General Internal Medicine 09/29/23 Sports Medicine Specialist Relationship Specialty Start Date End Date Paul Greco MD [address] [facility] [address] [place], [place] [address] PCP - General Internal Medicine 09/29/23 Team Status: Active Member Role Status Dates Paul Greco MD Primary Care Provider Active St art: January 17, 2024 Dr. Jose Mondragon MD Attending Provider Active Start: January 17, 2024 Team Status: Inactive Member Role Status Dates Paul Greco MD Primary Care Provider Active St art: January 24, 2024 End: January 24, 2024 Dr. Jose Mondragon MD Attending Provider Active Start: January 24, 2024 End: January 24, 2024 Dr. Jose Mondragon MD Referring Provider Active Start: January 24, 2024 End: January 24, 2024 Sports Medicine Specialist Relationship Specialty Start Date End Date Paul Greco MD [address] [facility] [address] [place] [address] PCP - General Internal Medicine 09/29/23 Sports Medicine Specialist Relationship Specialty Start Date End Date Paul Greco MD [address] [facility] [address] [place], [place] [id number] PCP - General Internal Medicine 09/29/23 Team Status: Inactive Member Role Status Sakshi Greco MD Primary Care Provider Active St art: May 29, 2024 End: May 29, 2024 Paul Greco MD Referring Provider Active Start : May 29, 2024 End: May 29, 2024 NELA Solo Attending Provider Active Start: May 29, 2024 End: May 29, 2024 Team Status: Inactive Member Role Status Sakshi Greco MD Primary Care Provider Active St art: May 31, 2024 End: May 31, 2024 Paul Greco MD Referring Provider Active Start : May 31, 2024 End: May 31, 2024 Ana Rosa [place], [place] Attending Provider Active Start: May 31, 2024 End: May 31, 2024 Team Status: Inactive Member Role Status Sakshi Greco MD Primary Care Provider Active St art: July 03, 2024 End: July 03, 2024 Dr. Corey De Jesus DO Attending Provider Active Start: July 03, 2024 End: July 03, 2024 Dr. Corey De Jesus DO Emergency Provider Active Start: July 03, 2024 End: July 03, 2024 Team Status: Inactive Member Role Status Sakshi Greco MD Primary Care Provider Active St art: July 25, 2024 End: July 25, 2024 Dr. Ranjit Rosario MD Emergency Provider Active Sta rt: July 25, 2024 End: July 25, 2024 Team Status: Inactive Member Role Status Sakshi Greco MD Primary Care Provider Active St art: July 30, 2024 End: July 30, 2024 Paul Greco MD Referring Provider Active Start : July 30, 2024 End: July 30, 2024 Ambreen Delaney UNIT SECRETARY, UNIT SECRETARY-C Attending Provider Active Start: July 30, 2024 End: July 30, 2024 Goals (unrecognized section and content) Goals may be documented in a n alternate sectionGoals may be documented in an alternate sectionGoals may be documented in an alternate section INFORMATION SOURCE (unrecogn ized section and content) DATE CREATED AUTHOR 08/15/2022 [facility] DATE CREATED AUTHOR AUTHOR'S ORGANIZ ATION 06/02/2024 [facility] DATE CREATED AUTHOR AUTHOR'S ORGANIZ ATION 08/01/2024 [facility] DATE CREATED AUTHOR AUTHOR'S ORGANIZ ATION 08/02/2024 [facility] Inactive Administered Medications - up to 3 most recent administrations Administered Medications (un recognized section and content) Medication Order MAR Action Action Date Dose Rate Site hydrocortisone sodium succinate (PF) 100 mg injection (Solu-CORTEF) 100 mg, INTRAVENOUS, ONCE, 1 dose, On Mon04/28/23 at 1100 Given 04/28/2023 10:45 AM EST 100 mg inFLIXimab-abda 400 mg in NaCl 0.9% 250 mL (RENFLEXIS) 400 mg, INTRAVENOUS, at 125 mL/hr, Administer over 2 Hours, ONCE, 1 dose, On Mon04/28/23 at 1100, TOTAL VOLUME = 250mL REFRIG EXP: 05/07/23 1100 Original Dose 5mg/kg rounded to 400mg per [facility] Vial/Dose Rounding Policy Administer with 0.2 micron filter. New Bag/Syringe/Bottle 04/28/2023 10:59 AM EST 400 mg 125 mL/hr Inactive Administered Medications - up to 3 most recent administrations Medication Order MAR Action Action Date Dose Rate Site inFLIXimab-abda 400 mg in NaCl 0.9% 250 mL (RENFLEXIS) 400 mg, INTRAVENOUS, at 125 mL/hr, Administer over 2 Hours, ONCE, 1 dose, On Mon06/16/23 at 1100, TOTAL VOLUME = 250 mL. EXP: 06/16/23 2200 Original Dose rounded to 400mg per [facility] Vial rounding policy Administer with 0.2 micron filter. New Bag/Syringe/Bottle 06/16/2023 10:48 AM EDT 400 mg 125 mL/hr FOR RECORDS PERTAINING TO PATIENTS WHO ARE OR HAVE BEEN ENROLLED IN A CHEMICAL DEPENDENCY/SUBSTANCEABUSE PROGRAM, SOME INFORMATION MAY BE OMITTED. This clinical summary was aggregated from multiple sources. Caution should be exercised in using it in the provision of clinical care. This summary normalizes information from multiple sources, and as a consequence, information in this document may materially change the coding, format and clinical context of patient data. In addition, data may be omitted in some cases. CLINICAL DECISIONS SHOULD BE BASED ON THE PRIMARY CLINICAL RECORDS. [employer] [facility]. provides no warranty or guarantee of the accuracy or completeness of information in this document.
== END 2024-08-06 23:59 | disposition home or self-care (01) ==
LOC: LAB 13:24
PROVIDERS: PCP Family Medicine; Referring Provider Nurse Practitioner Gerontology; Visit Provider Nurse Practitioner Gerontology
DX: I10 Essential (primary) hypertension (principal)
CPT/HCPCS: 36415; 80048

== ENCOUNTER → 2024-08-13 | Outpatient (CLI) | payer OTHER, SELFPAY | END | disposition home or self-care (01) | LOC: CVS 09:03 | PROVIDERS: PCP Family Medicine; Referring Provider Nurse Practitioner Gerontology; Visit Provider Nurse Practitioner Gerontology | DX: I10 Essential (primary) hypertension (principal) | CPT/HCPCS: 93788 ==

== ENCOUNTER → 2024-08-23 | Outpatient (CLI) | payer OTHER, SELFPAY ==
--- NOTE | 2024-08-23 06:45 | MRI_ITS ---
PROCEDURE: BRAIN WITHOUT CONTRAST 08/23/2024 REASON FOR EXAM: STROKE LIKE SYMPTOMS TECHNIQUE: BRAIN WITHOUT CONTRAST Multiplanar and multisequence images were obtained. COMPARISON: 05-26-2024 CT FINDINGS: No intracerebral or extra-axial hematomas. No hyperacute or acute infarctions could be depicted. Right frontal subcortical patchy area of high T2/FLAIR signal. No perifocal edema or mass effect. Normal MRI appearance of the left cerebral hemisphere, cerebellum and brain stem. Normal appearance of the ventricular system. Prominent cortical sulci and extra-axial CSF spaces. No midline shift. Normal MRI appearance of the petrous temporal bones and cerebellopontine angles with no obvious masses. Normal MRI appearance of orbital structures, both globes, optic nerves, optic chiasm, optic tracts and optic radiations. Scanned paranasal sinuses are unremarkable. MRI/Brain without Contrast IMPRESSION: Right cerebral chronic ischemic patch. No acute infarcts, intracerebral or extra-axial hematomas. Reading [facility]
--- OUTSIDE RECORDS SUMMARY | 2024-08-23 07:12 | XMS RPT_ITS | CCD ---
Author Organization [facility] Care Team Providers Care Groover Operator Name Role Phone Edis Trejo Primary Care Provider ROBERT FARIAS Referring Unavailable EDIS TREJO Primary Care Unavailable Edis Trejo DO Primary Care Provider [phone] Edis Trejo DO Primary Care Provider [phone] DO Alisa Escobar Primary Care Provider DO Alisa Escobar Referring Provider DO Alisa Escobar Other Provider Dr. Morgan Duarte Attending Provider Edis Trejo DO Primary Care Provider [phone] Edis Trejo DO Primary Care Provider [phone] Paul Greco MD Primary Care Provider Paul Greco MD Primary Care Provider Dr. Jose Mondragon MD Attending Provider Dr. Jose Mondragon MD Referring Provider Roof FRANCHISE MANAGER-C, Xiang Barger Attending Provider Roof FRANCHISE MANAGER-C, Xiang Barger Referring Provider Paul Greco MD Referring Provider Andressa Wasserman Attending Provider Paul Greco MD Attending Provider Dr. Gustabo العلي DO Attending Provider Dr. Gustabo العلي DO Emergency Provider Ana Rosa Hardin Attending Provider Ana Rosa Hardin Referring Provider Zurdo Polo MD Attending Provider Zurdo Polo MD Emergency Provider Dr. Ken Xie DO Attending Provider Anne-Marie SHETH, Dr. Rogers Other Provider [facility]use DO Attending Unavailable PHYSICIAN, NOT RECORDED Primary Care Unavaila kelvin Greco MD, Paul Primary Care Provider Giancarlo DORMAN, Dr. Garcia Attending Provider Giancarlo DORMAN, Dr. Garcia Referring Provider Hubert DORMAN, Dr. Natalie Higuera Admit Provider Hubert DORMAN, Dr. Natalie Higuera Other Provider Felisha SHETH, Dr. Kirkland Attending Provider Hubert DORMAN, Dr. Natalie Higuera Attending Provider Dr. Isael Baeza DO Other Provider Petar DORMAN, Dr. Bowman Attending Provider Angus DORMAN, Pual Primary Care Provider Paul Greco MD Referring Provider Andressa Wasserman Attending Provider Ana Rosa Hardin Attending Provider Dr. Corey De Jesus DO Attending Provider Dr. Corey De Jesus DO Emergency Provider Dr. Ranjit Rosario MD Emergency Provider Ambreen Hoffmann Attending Provider Dr. Ranjit Rosario MD Attending Provider Rhett CHRISTIANSON-Ambreen Bolton Referring Provider JARRETT INDERPRIT Referring Unavailable PAUL GRECO Primary Care Unavailable JARRETT INDERPRIT Attending Unavailable FARIAS INDERPRIT Referring Unavailable ANGUS, CHALON Primary Care Unavailable FARIAS, INDERPRIT Referring Unavailable ANGUS, CHALON Primary Care Unavailable FARIAS, INDERPRIT Attending Unavailable FARIAS, INDERPRIT Referring Unavailable ANGUS, CHALON Primary Care Unavailable EDIS TREJO Primary Care Unavailable FARIAS, INDERPRIT Referring Unavailable FARIAS, INDERPRIT Referring Unavailable ANGUS, CHALON Primary Care Unavailable FARIAS, INDERPRIT Referring Unavailable FARIAS, INDERPRIT Attending Unavailable ANGUS, CHALON Primary Care Unavailable ANGUS, CHALON Primary Care Unavailable FARIAS, INDERPRIT Referring Unavailable FARIAS, INDERPRIT Referring Unavailable ANGUS, CHALON Primary Care Unavailable FARIAS, INDERPRIT Referring Unavailable ANGUS, CHALON Primary Care Unavailable Angus DORMAN, Chalon Primary Care Provider [phone] Angus DORMAN, Chalon Referring Provider Angus, Chalon Primary Care Unavailable Rhett FRANCHISE MANAGER, Ambreen Attending Unavailable Rhett FRANCHISE MANAGER, Ambreen Referring Unavailable Angus, Chalon Primary Care Unavailable Giancarlo, Jose Referring Unavailable Giancarlo, Jose Attending Unavailable Angus, Chalon Primary Care Unavailable Giancarlo, Jose Referring Unavailable Giancarlo, Jose Attending Unavailable Angus, Chalon Primary Care Unavailable Roof FRANCHISE MANAGER, Xiang H Attending Unavailable Roof FRANCHISE MANAGER, Xiang H Referring Unavailable Angus, Chalon Primary Care Unavailable Rhett FRANCHISE MANAGER, Ambreen Referring Unavailable Rhett FRANCHISE MANAGER, Ambreen Attending Unavailable Angus, Chalon Primary Care Unavailable Ginacarlo, Jose Referring Unavailable Giancarlo, Jose Attending Unavailable Angus, Chalon Primary Care Unavailable Isael Baeza Attending Unavailable Natalie Gaspar Consulting Unavailable Natalie Gaspar Admitting Unavailable Angus, Chalon Primary Care Unavailable Natalie Gaspar Attending Unavailable Zeke Silva Consulting Unavailable Zeke Silva Admitting Unavailable Antolin Wolfe Consulting Unavailable Angus, Chalon Primary Care Unavailable Ana Rosa Hardin Referring Unavail able Ana Rosa Hardin Attending Unavail able Angus, Chalon Primary Care Unavailable Angus, Chalon Referring Unavailable Angus, Chalon Attending Unavailable Angus, Chalon Primary Care Unavailable Corey De Jesus Attending Unavailable Angus, Chalon Primary Care Unavailable Ranjit Rosario Attending Unavailable Angus, Chalon Primary Care Unavailable Gustabo العلي Attending Unavailable Angus, Chalon Primary Care Unavailable Zurdo Polo Attending Unavailable Angus, Chalon Primary Care Unavailable Angus, Chalon Attending Unavailable Angus, Chalon Referring Unavailable Angus, Chalon Primary Care Unavailable Andressa Haney Attending Unavailable Angus, Chalon Primary Care Unavailable Giancarlo, Jose Referring Unavailable Giancarlo, Jose Attending Unavailable Angus, Chalon Primary Care Unavailable Angus, Chalon Referring Unavailable AtanasovAndressa Attending Unavailable Angus, Chalon Referring Unavailable Angus, Chalon Primary Care Unavailable AtanasovAndressa Attending Unavailable Angus, Chalon Primary Care Unavailable Giancarlo, Jose Referring Unavailable Giancarlo, Jose Attending Unavailable Angus, Chalon Primary Care Unavailable Angus, Chalon Referring Unavailable Friend, Ken Attending Unavailable Angus, Chalon Referring Unavailable Angsu, Chalon Primary Care Unavailable Ana Rosa Hardin Attending Unavail able Angus, Chalon Primary Care Unavailable Angus, Chalon Attending Unavailable Angus, Chalon Referring Unavailable Angus, Chalon Referring Unavailable AtanasovAndressa Attending Unavailable Angus, Chalon Primary Care Unavailable Angus, Chalon Primary Care Unavailable Giancarlo, Jose Attending Unavailable Angus, Chalon Primary Care Unavailable Petar, Donnelly Attending Unavailable de Zeke Clayton Referring Unavailable Angus, Chalon Primary Care Unavailable Belal, Phillipk Attending Unavailable Angus, Chalon Referring Unavailable Angus, Chalon Primary Care Unavailable Friend, Ken Attending Unavailable Friend, Ken Consulting Unavailable Zeke Silva Admitting Unavailable Angus, Chalon Primary Care Unavailable Hubert, Natalie L Attending Unavailable Zeke Silva Consulting Unavailable Belal, Farjesusk Consulting Unavailable White, Natalie L Consulting Unavailable Zeke Silva Attending Unavailable Angus, Chalon Primary Care Unavailable White, Natalie L Admitting Unavailable Petar, Donnelly Attending Unavailable White, Natalie L Consulting Unavailable Isael Baeza Consulting Unavailable Angus, Chalon Primary Care Unavailable Angus, Chalon Referring Unavailable Ambreen Delaney NP Attending Unavailable Angus, Chalon Primary Care Unavailable White, Natalie L Attending Unavailable White, Natalie L Consulting Unavailable White, Natalie L Admitting Unavailable Angus, Chalon Referring Unavailable Angus, Chalon Primary Care Unavailable Ana Rosa Hardin Attending Unavail able Allergies Allergy Classification Reported Allergen(s) Allergy Type Date of Onset Reaction(s) Facility Opioid Agonists (9 sources) Meperidine Drug Allergy 1 Other: See Comments [facility] Sulfonamides (antibiotic) (9 sources) Sulfonamides (Antibiotic) Drug Allergy 1 GI Upset [facility] (20 sources) Meperidine; Translations: [MEPERIDINE] Drug Allergy 1 Other: See Comments [facility] (20 sources) Sulfonamides (Antibiotic); Translations: [SULFA (SULFONAMIDE ANTIBIOTICS)] Drug Allergy 1 GI Upset [facility] (5 sources) Sulfonamides (Antibiotic) Propensity to adverse reactions 5 Abd cramps/diarrhea [facility] (1 source) Meperidine Drug Allergy 5 [facility] (1 source) Sulfonamides (Antibiotic) Drug allergy (disorder) 5 [facility] Medications Current Medications Medication Drug [...] Start: 05-22-2020 take 1 puff(s) by mo [facility] every six hours as needed albuterol HFA (PROVENTIL HFA, VENTOLIN HFA) 90 mcg/actuation inhaler INHALE 1 PUFF BY MOUTH EVERY 6 HOURS NEEDED 05/22/2020 Active Comment on above: INHALE 1 PUFF BY PARTH EVERY 6 HOURS NEEDED atorvastatin 80 mg oral tablet (20 sources) HMG-CoA Reductase Inhibitor Start: 01-13-20 take 1 tablet by mouth at bedtime Atorvastatin 80 mg Tablet Active 80 mg PO AT BEDTIME January 13, 2024 1:00am cholecalciferol 1.25 mg oral capsule (11 sources) Vitamin D Start: 07-04-19 End: 07-04-19 Cholecalciferol (Vitamin D3) 1,250 mcg (50,000 unit) capsule Active 1250 ug PO WE July 03, 2024 12:00am Start: 02-09-2024 End: 02-26-2024 take 1 capsule by mouth every week Cholecalciferol (Vitamin D3) 1,250 mcg (50,000 unit) capsule Discontinued 1250 ug PO EVERY WEEK February 09, 2024 1:00am February 26, 2024 10:15am clopidogrel 75 mg oral tablet (20 sources) P2Y12 Platelet Inhibitor Start: 01-13-2024 take 1 tablet by mouth once daily Clopidogrel 75 mg Tablet Active 75 mg PO DAILY January 13, 2024 1:00am ferrous sulfate 324 mg delayed release oral tablet (20 sources) Start: 04-30-2024 End: 07-03-2024 take 1 [...] daily. Infliximab-Abda (Renflexis) 100 mg recon soln (5 sources) Start: 01-11-20 Infliximab-Abda (Renflexis) 100 mg [...] (EMLA) losartan potassium 25 mg oral tablet (3 sources) Angiotensin 2 Receptor Fahad Start: 07-31-19 take 1 tablet by mouth twice daily Losartan 25 mg tablet Active 25 mg PO TWICE A DAY 60 July 30, 2024 12:00am methotrexate 2.5 mg oral tablet (20 sources) Folate Analog Metabolic Inhibitor Start: 08-19-19 End: 08-19-19 take 6 tablets by mouth once methotrexate 2.5 mg tablet Take 6 tablets by mouth every Monday. 72 tablet 1 08/18/2024 08/18/2025 Active Start: 02-05-2024 End: 08-13-2024 take 6 tablets by mouth every week methotrexate 2.5 mg tablet take 6 tablets by mouth ONCE EVERY WEEK 72 tablet 1 07/25/2024 08/13/2024 Discontinued Start: 01-11-2024 End: 07-30-2024 Methotrexate Sodium 2.5 [...] week. metoprolol tartrate 50 mg oral tablet (20 sources) beta-Adrenergic Fahad Start: End: take 1 [...] once daily. spironolactone 25 mg oral tablet (5 sources) Aldosterone Antagonist Start: 02-26-2024 take 1 tablet by mouth once daily Spironolactone 25 mg tablet Active 25 mg PO DAILY February 26, 2024 1:00am tiZANidine 2 mg oral tablet (20 sources) Central alpha-2 Adrenergic Agonist Start: 06-02-2023 End: 11-12-2024 take 1 tablet by mouth once daily at bedtime tiZANidine (ZANAFLEX) 2 mg tablet Take 1 tablet by mouth daily at bedtime. 30 tablet 2 08/14/2024 11/12/2024 Active Start: 11-11-2021 End: 05-02-2023 take 1 tablet [...] Sig (Original) acetaminophen 325 mg oral tablet (2 sources) Start: 08-09-2024 End: 08-09-2024 take 1 dose by mouth once as needed for pain 650 mg, ORAL, ONCE, 1 dose, On Mon08/09/24 at 1400, If ordered PRN for pain, patient/guardian may [...] preferred: N/A amLODIPine 5 mg oral tablet (20 sources) Dihydropyridine Calcium Channel Fahad Start: 03-29-2024 End: 04-12-2024 take 1 tablet by mouth once daily Amlodipine 5 mg tablet Discontinued 5 mg PO .COMPLEX March 29, 2024 11:27am April 12, 2024 2:45pm 5 mg orally daily at noon; codeine phosphate 2 mg/ml / guaiFENesin 20 mg/ml oral solution (5 sources) Opioid Agonist Start: 03-11-2024 End: 04-12-2024 take 1 mL by mouth four times daily as needed for cough Codeine-Guaifenesi n (Guaifenesin Ac) 10-100 mg/5 mL liquid Discontinued 5 mL PO 4 TIMES DAILY as needed for cough 140 March 11, 2024 5:26am April 12, 2024 2:42pm dapagliflozin 10 mg oral tablet (14 sources) Sodium-Glucose Cotransporter 2 Inhibitor Start: 01-11-2024 [...] breakfast. doxycycline hyclate 100 mg oral tablet (5 sources) Tetracycline-class Drug Start: End: take 1 tablet by mouth twice daily Doxycycline Hyclate 100 mg tablet Discontinued 100 mg PO TWICE A DAY 10 January 13, 2024 1:00am February 09, 2024 6:41pm ferrous gluconate 240 mg oral tablet (10 sources) Start: End: take 1 tablet by mouth once daily Ferrous Gluconate (Ferate) 240 mg (27 mg iron) tablet Discontinued 240 mg PO DAILY February 26, 2024 12:57pm April 12, 2024 2:43pm Fluticasone-Umeclidin -Vilanter (20 sources) Anticholinergic, Corticosteroid, beta2-Adrenergic Agonist Start: End: Fluticasone-Umeclidin -Vilanter (Trelegy Ellipta) 100-62.5-25 mcg blister [...] guaiFENesin 600 mg extended release oral tablet (5 sources) Start: 01-13-2024 End: 02-26-2024 take 1 tablet by mouth twice daily, then take 1 tablet by mouth every twelve hours Guaifenesin (Mucinex) 600 mg Tablet Extended Release 12hr Discontinued 600 mg PO TWICE A DAY January 13, 2024 1:00am February 26, 2024 10:15am hydrALAZINE hydrochloride 25 mg oral tablet (15 sources) Arteriolar Vasodilator Start: 07-30-2024 End: 07-30-2024 take 5 mg by mouth three times daily Hydralazine 25 mg tablet Discontinued 5 mg PO THREE TIMES A DAY July 30, 2024 8:22am July 30, 2024 8:58am Start: 04-12-2024 End: 07-30-2024 take 1 tablet by mouth three times daily Hydralazine 25 mg tablet Discontinued 25 mg PO THREE TIMES A DAY April 12, 2024 1:00am July 30, 2024 8:24am hydroxychloroquine sulfate 200 mg oral tablet (20 [...] Start: 05-25-2020 take 1 tablet by parth twice daily, then take 2 tablets by [...] at 1100, TOTAL VOLUME = 250 mL. EXP:_02/29/242199 Administer with 0.2 micron filter. Start: 01-18-2024 End: 01-18-2024 400 mg (rounded from 408 mg = 5 mg/kg/dose 81.6 kg), INTRAVENOUS, at 83.33-250 mL/hr, Administer over 1-3 Hours, ONCE, 1 dose, On Aruna 01/18/24 at 0900, TOTAL VOLUME = 250 mL. EXP: Administer with 0.2 micron filter. Start: 11-10-2023 End: 11-10-2023 400 mg (rounded from 422.5 m g = 5 mg/kg/dose 84.5 kg), INTRAVENOUS, at 83.33-250 mL/hr, Administer over 1-3 Hours, ONCE, 1 dose, On Mon11/10/23 at 1030, TOTAL VOLUME = 250 mL. EXP: 11/10/232199 Administer with 0.2 micron filter. Start: 09-22-2023 End: 09-22-2023 inFLIXimab-abda 400 mg in Na Cl 0.9% 250 mL (RENFLEXIS) Start: 08-04-2023 End: 08-04-2023 inFLIXimab-abda 400 mg in Na Cl 0.9% 250 mL (RENFLEXIS) inFLIXimab-dyyb 400 mg in NaCl 0.9% 250 mL (INFLECTRA) (1 source) Start: 08-09-2024 End: 08-09-2024 400 mg (rounded from 426 mg = 5 mg/kg/dose 85.2 kg), INTRAVENOUS, at 83.33-250 mL/hr, Administer over 1-3 Hours, ONCE, 1 dose, On Mon08/09/24 at 1400, Total Volume: = 250 mL REFRIG EXP: 08/19/24 1400 Administer with 0.2 micron filter., Medication Substitution: [facility] preferred product has been replaced with the insurance mandated product ipratropium bromide 0.042 mg/actuat metered dose nasal spray (5 sources) Anticholinergic Start: 01-11-2024 End: 07-30-2024 Ipratropium [place] 42 mcg (0.06 %) spray,non-aerosol Discontinued 2 [...] with meals. TAKE 1 TABLET BY PARTH TWICE A DAY WITH MEALS Take 1 tablet by parth th twice daily with meals. Take 1 tablet by parth th two times a day with meals. Nirmatrelvir-Ritonavir (Paxlovid) 300 mg (150 mg x 2)-100 mg tablets,dose pack (5 sources) Start: End: Nirmatrelvir-Ritonav ir (Paxlovid) 300 mg (150 mg [...] Comment on above: TAKE 1 CAPSULE BY [facility] EVERY DAY BEFORE A MEAL potassium chloride 20 meq extended release oral tablet (5 sources) Start: 4 End: 4 take 1 [...] Date Documented Date Episodic/Chronic Acute myocardial infarction (9 sources) Myocardial infarction; Translations: [Non-ST elevation (NSTEMI) myocardial infarction] Onset: 01-13-2024 02-26-2024 Chronic Cardiac dysrhythmias (10 sources) Sinus tachycardia; Translations: [Tachycardia, unspecified] 02-17-2024 Episodic Deficiency and other anemia (19 sources) Anemia of chronic disease; Translations: [Anemia in other chronic diseases classified elsewhere] Onset: 02-05-2024 01-20-2024 Chronic Deficiency and other anemia (1 source) Anemia in other chronic diseases classified elsewhere; Translations: [Anemia, chronic disease] Onset: 02-05-2024 Chronic Deficiency and other anemia (20 sources) Anemia; Translations: [Anemia, unspecified] 01-29-2024 Episodic Deficiency and other anemia (1 source) Deficiency and other anemia Diabetes mellitus without complication (6 sources) Type 2 diabetes mellitus; Translations: [Type 2 diabetes mellitus without complications] Onset: 01-13-2024 01-21-2024 Chronic Essential hypertension (15 sources) Hypertensive disorder; Translations: [Essential (primary) hypertension] Onset: 01-13-2024 02-26-2024 Chronic Nonspecific chest pain (20 sources) Chest pain; Translations: [Chest pain, unspecified] Onset: 05-30-2024 05-27-2024 Episodic Other aftercare (1 source) Taking high risk medication; Translations: [Other termite renewal inspector (current) drug therapy] 06-14-2024 Episodic Other aftercare (1 source) Other termite renewal inspector (current) drug therapy; Translations: [High risk medication use] Onset: 06-14-2024 Episodic Other connective tissue disease (1 source) Unspecified symptoms and signs involving the nervous system; Translations: [Unspecified symptoms and signs involving the nervous system] Onset: 08-21-2024 Episodic Other lower respiratory disease (10 sources) Dyspnea; Translations: [Shortness of breath] 01-29-2024 Episodic Other lower respiratory disease (5 sources) Cough; Translations: [Cough] 03-19-2024 Episodic Other nervous system disorders (2 sources) Anesthesia of skin; Translations: [Anesthesia of skin] Episodic Other nutritional; endocrine; and metabolic disorders (5 sources) Obese class I; Translations: [Class 1 obesity] 01-21-2024 Chronic Other screening for suspected conditions (not mental disorders or infectious disease) (15 sources) Raised cardiac enzyme or marker; Translations: [Other specified abnormal findings of blood chemistry] 01-11-2024 Episodic Other upper respiratory infections (5 sources) Upper respiratory infection; Translations: [Acute upper [...] [Obesity, class 1] Onset: 01-13-2024 Viral infection (5 sources) Disease caused by 2019-nCoV; Translations: [COVID-19] 03-10-2024 Episodic Past or Other Problems Problem Classification Problem Date Documented Da te Episodic/Chronic Deficiency and other anemia (2 sources) Anemia, unspecified; Translations: [Anemia, unspecified] Onset: 04-30-2024 Episodic Deficiency and other anemia (1 source) Iron deficiency anemia, unspecified; Translations: [Iron deficiency anemia, unspecified] Onset: 04-30-2024 Episodic Fluid and electrolyte disorders (6 sources) Hypokalemia; Translations: [Hypokalemia] Onset: 01-13-2024 02-17-2024 Episodic Other infections; including parasitic (18 sources) Recurrent infectious disease; Translations: [Unspecified infectious [...] Test Name Value Interpretation Reference Range Facility [facility] 08-12-2024 [facility] Telephone ([place]) JAYLIN CARROLL ([id number]) 1960 F Date Time Provider Department 08/12/24 ROBERT FARIAS During your visit today, we recorded the following information about you: Brynn Fofana LPN 08/12/2024 3:03 PM Signed Isael from [facility] states the TB test will need reordered. The lab did draw the specimen but the tubes were under filled. BrynnELIDIA Monroe Inderprit, MD 08/12/2024 7:35 PM Signed Ordered MD Jarrett Reis Inderprit, MD 08/12/2024 7:36 PM Signed Addended by: ROBERT FARIAS on: 08/12/2024 07:36 PM Modules accepted: Orders Allergies As of Date: 08/12/2024 Noted Allergy Reaction DEMEROL (MEPERIDINE) 06/19/2020 14 - Other: See Comments Comments: Lowered blood pressure extremely low SULFA (SULFONAMIDE ANTIBIOTICS) 06/19/2020 8 - GI Upset Comments: Stomach pain severe Date Reviewed: 08/09/2024 Reviewed by: Ryan Vasquez RN - Fully Assessed Primary Visit Diagnosis:Rheumatoid arthritis involving both hands with positive rheumatoid factor (HCC) [M05.741, M05.742] Order(s):BLOOD TB SCREEN, INCUBATED [[id number]] Order #: [id number] FUTURE Prescriptions as of 08/12/2024 - methotrexate 2.5 mg tablet take 6 [...] mouth once daily. Facility-Administered Medications as of 08/12/2024 - lidocaine-prilocaine 2.5-2.5 % (EMLA) Problem List As Of Date 08/12/2024 Noted Resolved Rheumatoid arthritis involving both hands with *06/19/2020 Chronic bilateral low back pain without sciatic*06/19/2020 Anemia, chronic disease [D63.8] 02/05/2024 Recurrent infections [B99.9] 02/05/2024 Encounter Status:Closed by BRYNN FOFANA on 08/12/24 Normal [facility] CBC W Auto Differential pane l (Bld)on 08-09-2024 Basophils (Bld) [#/Vol] 0.06 10*3/uL [facility] Basophils/100 WBC (Bld) 0.8 % C [facility] Differential cell count method Nom (Bld) Auto [facility] Eosinophils (Bld) [#/Vol] 0.25 10*3/uL [facility] Eosinophils/100 WBC (Bld) 3.4 % [facility] Erythrocyte distribution width (RBC) [Ratio] 17.2 % High 11.5 - 15.0 % [facility] Hematocrit (Bld) [Volume fraction] 38.6 % 36.0 - 46.0 % [facility] Hemoglobin (Bld) [Mass/Vol] 11.9 g/dL 11.5 - 15.5 g/dL [facility] Immature granulocytes (Bld) [#/Vol] 0.03 10*3/uL [facility] Immature granulocytes/100 WBC (Bld) 0.4 % [facility] Interpretation and review of laboratory results Abnormal [facility] Lymphocytes (Bld) [#/Vol] 2.41 10*3/uL [facility] Lymphocytes/100 WBC (Bld) 33 % [facility] MCH (RBC) [Entitic mass] 26.4 pg 26.0 - 34.0 pg [facility] MCHC (RBC) [Mass/Vol] 30.8 g/dL 30.5 - 36.0 g/dL [facility] MCV (RBC) [Entitic vol] 85.8 fL 80.0 - 100.0 fL [facility] Monocytes (Bld) [#/Vol] 0.55 10*3/uL [facility] Monocytes/100 WBC (Bld) 7.5 % C [facility] Neutrophils (Bld) [#/Vol] 4 10*3/uL [facility] Neutrophils/100 WBC (Bld) 54.9 % [facility] Nucleated RBC (Bld) [#/Vol] NINF [facility] Nucleated RBC/100 WBC (Bld) [Ratio] 0 % /100 WBC [facility] Platelet mean volume (Bld) [Entitic vol] 11 fL 9.0 - 12.7 fL [facility] Platelets (Bld) [#/Vol] 187 10*3/uL [facility] RBC (Bld) [#/Vol] 4.5 10*6/uL 3.90 - 5.2 0 m/uL [facility] WBC (Bld) [#/Vol] 7.3 10*3/uL [facility] Basophils (Bld) [#/Vol] 0.06 10*3/uL Normal <0.11 [facility] Comment on above: Order Comment: Speci men Type: BLOOD SPECIMENOrdering Facility: [facility] Address: [address] [place] [address] Performed By: #### 5 7021-8 ####[facility] LABORATORYCLIA [id number] [address] STATES OF [facility] Basophils/100 WBC (Bld) 0.8 % Normal A [facility] Comment on above: Order Comment: Speci men Type: BLOOD SPECIMENOrdering Facility: [facility] Address: [address] [place] [address] Performed By: #### 5 7021-8 ####[facility] LABORATORYCLIA [id number] [address] STATES OF [place] Differential cell count method Nom (Bld) Auto Normal [facility] Comment on above: Order Comment: Speci men Type: BLOOD SPECIMENOrdering Facility: [facility] Address: [address] [place] [address] Performed By: #### 5 7021-8 ####[facility] LABORATORYCLIA [id number] OF [place] Eosinophils (Bld) [#/Vol] 0.25 10*3/uL Normal <0.46 [facility] Comment on above: Order Comment: Speci men Type: BLOOD SPECIMENOrdering Facility: [facility] Address: [address] [place] [address] Performed By: #### 5 7021-8 ####[facility] LABORATORYCLIA [id number] [address] Eosinophils/100 WBC (Bld) 3.4 % Normal [facility] Comment on above: Order Comment: Speci men Type: BLOOD SPECIMENOrdering Facility: [facility] Address: [address] [place] [address] Performed By: #### 5 7021-8 ####[facility] LABORATORYCLIA [id number] [address] STATES OF [facility] Erythrocyte distribution width (RBC) [Ratio] 17.2 % High 11.5-15.0 [facility] Comment on above: Order Comment: Speci men Type: BLOOD SPECIMENOrdering Facility: [facility] Address: [address] [place] [address] Performed By: #### 5 7021-8 ####[facility] LABORATORYCLIA [id number] [address] [place] Hematocrit (Bld) [Volume fraction] 38.6 % Normal 36.0-46.0 [facility] Comment on above: Order Comment: Speci men Type: BLOOD SPECIMENOrdering Facility: [facility] Address: [address] [place] [address] Performed By: #### 5 7021-8 ####[facility] LABORATORYCLIA [id number] [address] [place] Hemoglobin (Bld) [Mass/Vol] 11.9 g/dL Normal 11.5-15.5 [facility] Comment on above: Order Comment: Speci men Type: BLOOD SPECIMENOrdering Facility: [facility] Address: [address] [place] [address] Performed By: #### 5 7021-8 ####[facility] LABORATORYCLIA [id number] [address] Immature granulocytes (Bld) [#/Vol] 0.03 10*3/uL Normal <0.10 [facility] Comment on above: Order Comment: Speci men Type: BLOOD SPECIMENOrdering Facility: [facility] Address: [address] [place] [address] Performed By: #### 5 7021-8 ####[facility] LABORATORYCLIA [id number] [address] Immature granulocytes/100 WBC (Bld) 0.4 % Normal [facility] Comment on above: Order Comment: Speci men Type: BLOOD SPECIMENOrdering Facility: [facility] Address: [address] [place] [address] Performed By: #### 5 7021-8 ####[facility] LABORATORYCLIA [id number] [address] Lymphocytes (Bld) [#/Vol] 2.41 10*3/uL Normal 1.00-4.00 [facility] Comment on above: Order Comment: Speci men Type: BLOOD SPECIMENOrdering Facility: [facility] Address: [address] [place] [address] Performed By: #### 5 7021-8 ####[facility]ORATORYCLIA [id number] [address] Lymphocytes/100 WBC (Bld) 33.0 % Normal [facility] Comment on above: Order Comment: Speci men Type: BLOOD SPECIMENOrdering Facility: [facility] Address: [address] [place] [address] Performed By: #### 5 7021-8 ####[facility]ORATORYCLIA [id number] [address] [place] MCH (RBC) [Entitic mass] 26.4 pg Normal 26.0-34.0 [facility] Comment on above: Order Comment: Speci men Type: BLOOD SPECIMENOrdering Facility: [facility] Address: [address] [place] [address] Performed By: #### 5 7021-8 ####[facility] LABORATORYCLIA [id number] [address] OF [facility] MCHC (RBC) [Mass/Vol] 30.8 g/dL Normal 30.5-36.0 [facility] Comment on above: Order Comment: Speci men Type: BLOOD SPECIMENOrdering Facility: [facility] Address: [address] [place] [address] Performed By: #### 5 7021-8 ####[facility] LABORATORYCLIA [id number] [address] MCV (RBC) [Entitic vol] 85.8 fL Normal 80.0-100.0 [facility] Comment on above: Order Comment: Speci men Type: BLOOD SPECIMENOrdering Facility: [facility] Address: [address] [place] [address] Performed By: #### 5 7021-8 ####[facility] LABORATORYCLIA [id number] [address] Monocytes (Bld) [#/Vol] 0.55 10*3/uL Normal <0.87 [facility] Comment on above: Order Comment: Speci men Type: BLOOD SPECIMENOrdering Facility: [facility] Address: [address] [place] [address] Performed By: #### 5 7021-8 ####[facility] LABORATORYCLIA [id number] [address] Monocytes/100 WBC (Bld) 7.5 % Normal [facility] Comment on above: Order Comment: Speci men Type: BLOOD SPECIMENOrdering Facility: [facility] Address: [address] [place] [address] Performed By: #### 5 7021-8 ####[facility]ORATORYCLIA [id number] [place] [address] [place] Neutrophils (Bld) [#/Vol] 4.00 10*3/uL Normal 1.45-7.50 [facility] Comment on above: Order Comment: Speci men Type: BLOOD SPECIMENOrdering Facility: [facility] Address: [address] [place] [address] Performed By: #### 5 7021-8 ####[facility]ORATORYCLIA [id number] [address] [place] Neutrophils/100 WBC (Bld) 54.9 % Normal [facility] Comment on above: Order Comment: Speci men Type: BLOOD SPECIMENOrdering Facility: [facility] Address: [address] [place] [address] Performed By: #### 5 7021-8 ####[facility] LABORATORYCLIA [id number] [place] [address] [place] Nucleated RBC (Bld) [#/Vol] 10*3/uL Normal <0.01 [facility] Comment on above: Order Comment: Speci men Type: BLOOD SPECIMENOrdering Facility: [facility] Address: [address] [place] [address] Performed By: #### 5 7021-8 ####[facility]ORATORYCLIA [id number] [address] [place] Nucleated RBC/100 WBC (Bld) [Ratio] 0.0 /100 WBC Normal [facility] Comment on above: Order Comment: Speci men Type: BLOOD SPECIMENOrdering Facility: [facility] Address: [address] [place] [address] Performed By: #### 5 7021-8 ####[facility] LABORATORYCLIA [id number] [address] [place] Platelet mean volume (Bld) [Entitic vol] 11.0 fL Normal 9.0-12.7 [facility] Comment on above: Order Comment: Speci men Type: BLOOD SPECIMENOrdering Facility: [facility] Address: [address] [place] [address] Performed By: #### 5 7021-8 ####[facility] LABORATORYCLIA [id number] [address] Platelets (Bld) [#/Vol] 187 10*3/uL Normal 150-400 [facility] Comment on above: Order Comment: Speci men Type: BLOOD SPECIMENOrdering Facility: [facility] Address: [address] [place] [address] Performed By: #### 5 7021-8 ####[facility] LABORATORYCLIA [id number] [address] RBC (Bld) [#/Vol] 4.50 10*6/uL Normal 3.90-5.20 [facility] Comment on above: Order Comment: Speci men Type: BLOOD SPECIMENOrdering Facility: [facility] Address: [address] [place] [address] Performed By: #### 5 7021-8 ####[facility] LABORATORYCLIA [id number] [address] OF [facility] WBC (Bld) [#/Vol] 7.30 10*3/uL Normal 3.70-11.00 [facility] Comment on above: Order Comment: Speci men Type: BLOOD SPECIMENOrdering Facility: [facility] Address: [address] [place] [address] Performed By: #### 5 7021-8 ####[facility] LABORATORYCLIA [id number] [address] Comprehensive metabolic 2000 panelon 08-09-2024 Albumin [Mass/Vol] 4.2 g/dL 3.9 - 4.9 g/dL [facility] ALP [Catalytic activity/Vol] 66 U/L 34 - 123 U/L [facility] ALT With P-5'-P [Catalytic activity/Vol] 24 U/L 7 - 38 U/L [facility] Anion gap [Moles/Vol] 13 mmol/L 8 - 15 mmol/L [facility] AST With P-5'-P [Catalytic activity/Vol] 16 U/L 13 - 35 U/L [facility] Bilirubin [Mass/Vol] 0.3 mg/dL 0.2 - 1 .3 mg/dL [facility] Calcium [Mass/Vol] 9.2 mg/dL 8.5 - 10. 2 mg/dL [facility] Chloride [Moles/Vol] 105 mmol/L 98 - 10 7 mmol/L [facility] CO2 [Moles/Vol] 23 mmol/L 22 - 30 mmol/L [facility] Creatinine [Mass/Vol] 0.59 mg/dL 0.58 - 0.96 mg/dL [facility] GFR/1.73 sq M.predicted among non-blacks MDRD (S/P/Bld) [Vol rate/Area] 101 mL/min/{1.73_m2} - PINF [facility] Comment on above: Estimated Glomerular Filtration Rate [...] not accurately reflect actual GFR. Glucose [Mass/Vol] 182 mg/dL High 74 - 99 mg/dL [facility] Comment on above: The [place] Diabete s Association (ADA) provides guidance for [...] Standards of Medical Care in Diabetes 2016, [place] [employer]. Diabetes Care. 2016.39(Suppl 1). Interpretation and review of laboratory results Abnormal [facility] Potassium [Moles/Vol] 3.5 mmol/L Low 3.7 - 5.1 mmol/L [facility] Protein [Mass/Vol] 6.5 g/dL 6.3 - 8.0 g/dL [facility] Sodium [Moles/Vol] 141 mmol/L 136 - 144 mmol/L [facility] Urea nitrogen [Mass/Vol] 8 mg/dL 7 - 21 mg/dL [facility] Albumin [Mass/Vol] 4.2 g/dL Normal 3.9-4.9 [facility] Comment on above: Order Comment: Speci men Type: BLOOD SPECIMENOrdering Facility: [facility] Address: [address] [place] [address] Performed By: #### 2 4323-8 ####[facility] LABORATORYCLIA [id number] [address] [place] ALP [Catalytic activity/Vol] 66 U/L Normal 34-123 [facility] Comment on above: Order Comment: Speci men Type: BLOOD SPECIMENOrdering Facility: [facility] Address: [address] [place] [address] Performed By: #### 2 4323-8 ####[facility] LABORATORYCLIA [id number] [address] STATES OF [facility] ALT With P-5'-P [Catalytic activity/Vol] 24 U/L Normal 7-38 [facility] Comment on above: Order Comment: Speci men Type: BLOOD SPECIMENOrdering Facility: [facility] Address: [address] [place] [address] Performed By: #### 2 4323-8 ####[facility] LABORATORYCLIA [id number] [address] [place] Anion gap [Moles/Vol] 13 mmol/L Normal 8-15 [facility] Comment on above: Order Comment: Speci men Type: BLOOD SPECIMENOrdering Facility: [facility] Address: [address] [place] [address] Performed By: #### 2 4323-8 ####[facility] LABORATORYCLIA [id number] [place] [address] [place] AST With P-5'-P [Catalytic activity/Vol] 16 U/L Normal 13-35 [facility] Comment on above: Order Comment: Speci men Type: BLOOD SPECIMENOrdering Facility: [facility] Address: [address] [place] [address] Performed By: #### 2 4323-8 ####[facility]ORATORYCLIA [id number] [place] [address] [place] Bilirubin [Mass/Vol] 0.3 mg/dL Normal 0.2-1.3 [facility] Comment on above: Order Comment: Speci men Type: BLOOD SPECIMENOrdering Facility: [facility] Address: [address] [place] [address] Performed By: #### 2 4323-8 ####[facility]ORATORYCLIA [id number] [place] [address] [place] Calcium [Mass/Vol] 9.2 mg/dL Normal 8.5-10.2 [facility] Comment on above: Order Comment: Speci men Type: BLOOD SPECIMENOrdering Facility: [facility] Address: [address] [place] [address] Performed By: #### 2 4323-8 ####[facility]ORATORYCLIA [id number] [place] [address] [place] Chloride [Moles/Vol] 105 mmol/L Normal 98-107 [facility] Comment on above: Order Comment: Speci men Type: BLOOD SPECIMENOrdering Facility: [facility] Address: [address] [place] [address] Performed By: #### 2 4323-8 ####[facility]ORATORYCLIA [id number] [place] [address] [place] CO2 [Moles/Vol] 23 mmol/L Normal 22-30 [facility] Comment on above: Order Comment: Speci men Type: BLOOD SPECIMENOrdering Facility: [facility] Address: [address] [place] [address] Performed By: #### 2 4323-8 ####[facility]ORATORYCLIA [id number] [place] [address] [place] Creatinine [Mass/Vol] 0.59 mg/dL Normal 0.58-0.96 [facility] Comment on above: Order Comment: Matt sheng Type: BLOOD SPECIMENOrdering Facility: [facility] Address: [address] [place] [address] Performed By: #### 2 4323-8 ####[facility] LABORATORYCLIA [id number] [place] [address] [place] Creatinine and Glomerular filtration rate.predicted panel (S/P/Bld) 101 mL/min/1.73m??? Normal >=60 [facility] Comment on above: Order Comment: Matt patricio Type: BLOOD SPECIMENOrdering Facility: [facility] Address: [address] [place] [address] Result Comment: Glynn mated Glomerular Filtration Rate [...] Performed By: #### 2 4323-8 ####[facility] LABORATORYCLIA [id number] [place] [address] [place] Glucose [Mass/Vol] 182 mg/dL High 74-99 [facility] Comment on above: Order Comment: Matt sheng Type: BLOOD SPECIMENOrdering Facility: [facility] Address: [address] [place] [address] Result Comment: The [place] Diabetes Association (ADA) provides guidance for cutoff [...] Standards of Medical Care in Diabetes 2016, [place] [employer]. Diabetes Care. 2016.39(Suppl 1). Performed By: #### 2 4323-8 ####[facility] LABORATORYCLIA [id number] [address] STATES [facility] Potassium [Moles/Vol] 3.5 mmol/L Low 3.7-5.1 [facility] Comment on above: Order Comment: Speci men Type: BLOOD SPECIMENOrdering Facility: [facility] Address: [address] [place] [address] Performed By: #### 2 4323-8 ####[facility] LABORATORYCLIA [id number] [address] [place] Protein [Mass/Vol] 6.5 g/dL Normal 6.3-8.0 [facility] Comment on above: Order Comment: Speci men Type: BLOOD SPECIMENOrdering Facility: [facility] Address: [address] [place] [address] Performed By: #### 2 4323-8 ####[facility] LABORATORYCLIA [id number] [address] Sodium [Moles/Vol] 141 mmol/L Normal 136-144 [facility] Comment on above: Order Comment: Speci men Type: BLOOD SPECIMENOrdering Facility: [facility] Address: [address] [place] [address] Performed By: #### 2 4323-8 ####[facility] LABORATORYCLIA [id number] [address] Urea nitrogen [Mass/Vol] 8 mg/dL Normal 7-21 [facility] Comment on above: Order Comment: Speci men Type: BLOOD SPECIMENOrdering Facility: [facility] Address: [address] [place] [address] Performed By: #### 2 4323-8 ####[facility] LABORATORYCLIA [id number] [address] ESR Westergren method (Bld) [Velocity]on 08-09-2024 ESR (Bld) [Velocity] 5 mm/h Normal 0-20 [facility] Comment on above: Order Comment: Speci men Type: BLOOD SPECIMENOrdering Facility: [facility] Address: [address] [place] [address] Performed By: #### 4 537-7 ####[facility] LABCLIA [id number] JUNG CRUZ [address] [address] [place] STATES OF [facility] Anion gap in Serum or Plasma Ordered By: Ambreen Delaney on 08-06-2024 Anion gap [Moles/Vol] 11 mmol/L 5-15 [facility] BUN/creatinine ratioOrdered By: Ambreen Delaney on 08-06-2024 Urea nitrogen/Creatinine [Mass ratio] 20.3 mg/mg High - [facility] Basic Metabolic Profile (BMP )on 08-06-2024 BUN/CRE 20.3 RATIO High - [facility] Comment on above: Performed By: #### L 500.2500 ####[facility] [address] [place], [address] Calcium [Mass/Vol] 9.2 mg/dL Normal 7.6-11.0 [facility] Comment on above: Performed By: #### L 500.2500 ####[facility] [address] [place], [address] Chloride [Moles/Vol] 106 mmol/L Normal 98-108 [facility] Comment on above: Performed By: #### L 500.2500 ####[facility] [address] [place], [address] CO2 [Moles/Vol] 23.8 mmol/L Normal 21.0-32.0 [facility] Comment on above: Performed By: #### L 500.2500 ####[facility] [address] [place], [address] Creatinine [Mass/Vol] 0.67 mg/dL Low 0.70-1.20 [facility] Comment on above: Performed By: #### L 500.2500 ####[facility] [address] [place], [address] GAP 11 Normal 5-15 [facility] Comment on above: Performed By: #### L 500.2500 ####[facility] [address] [place], [address] GFR/1.73 sq M.predicted among non-blacks MDRD (S/P/Bld) [Vol rate/Area] 98 mL/min/{1.73_m2} Normal >60 [facility] Comment on above: Result Comment: mL/m in/1.73m2 CKD-EPI Creatinine Equation (2020) Performed By: #### L 500.2500 ####[facility] [address] [place], [address] Glucose [Mass/Vol] 231 mg/dL High 70-99 [facility] Comment on above: Performed By: #### L 500.2500 ####[facility] [address] [place], [address] Potassium [Moles/Vol] 3.5 mmol/L Normal 3.3-5.1 [facility] Comment on above: Performed By: #### L 500.2500 ####[facility] [address] [place], [address] Sodium [Moles/Vol] 141 mmol/L Normal 133-145 [facility] Comment on above: Performed By: #### L 500.2500 ####[facility] [address] [place], [address] Urea nitrogen [Mass/Vol] 14 mg/dL Normal 4-19 [facility] Comment on above: Performed By: #### L 500.2500 ####[facility] [address] [place], [address] BUN Normal 4-19 [facility] Comment on above: Result Comment: DUP ORDER Performed By: #### L 500.2500 ####[facility] [address] [place], [address] BUN/CRE Normal 10-20 [facility] Comment on above: Result Comment: DUP ORDER Performed By: #### L 500.2500 ####[facility] [address] [place], [address] Calcium Normal 7.6-11.0 [facility] Comment on above: Result Comment: DUP ORDER Performed By: #### L 500.2500 ####[facility] [address] [place], [address] CL Normal 98-108 [facility] Comment on above: Result Comment: DUP ORDER Performed By: #### L 500.2500 ####[facility] [address] [place], [address] CO2 Normal 21.0-32.0 [facility] Comment on above: Result Comment: DUP ORDER Performed By: #### L 500.2500 ####[facility] [address] [place], [address] CREAT,SERUM Normal 0.70-1.20 [facility] Comment on above: Result Comment: DUP ORDER Performed By: #### L 500.2500 ####[facility] [address] [place], [address] eGFR Normal >60 [facility] Comment on above: Result Comment: DUP ORDER Performed By: #### L 500.2500 ####[facility] [address] [place], [address] GAP Normal 5-15 [facility] Comment on above: Result Comment: DUP ORDER Performed By: #### L 500.2500 ####[facility] [address] [place], [address] GLU Normal 70-99 [facility] Comment on above: Result Comment: DUP ORDER Performed By: #### L 500.2500 ####[facility] [address] [place], [address] Potassium Normal 3.3-5.1 [facility] Comment on above: Result Comment: DUP ORDER Performed By: #### L 500.2500 ####[facility] [address] [place], [address] Basic Metabolic Profile (BMP) Normal 133-145 [facility] Comment on above: Result Comment: DUP ORDER Performed By: #### L 500.2500 ####[facility] [address] [place], [address] Carbon dioxide, total [Moles /volume] in Central venous bloodOrdered By: Ambreen Delaney on 08-06-2024 CO2 [Moles/Vol] 23.8 mmol/L 21.0-32.0 [facility] Chloride assayOrdered By: Abran Delaney on 08-06-2024 Chloride [Moles/Vol] 106 mmol/L 98-108 [facility] Glomerular filtration rate ( GFR) estimation/1.73 sq m using serum, plasma, or whole bOrdered By: Ambreen Delaney on 08-06-2024 GFR/1.73 sq M.predicted among non-blacks MDRD (S/P/Bld) [Vol rate/Area] 98 mL/min/{1.73_m2} >60 [facility] Comment on above: mL/min/1.73m2 CKD-EP I Creatinine Equation (2020) Potassium measurement (mass/ volume)Ordered By: Ambreen Delaney on 08-06-2024 Potassium (Unsp spec) [Mass/Vol] 3.5 mmol/L 3.3-5.1 [facility] Serum creatinine measurement (mass/volume)Ordered By: Ambreen Delaney on 08-06-2024 Creatinine [Mass/Vol] 0.67 mg/dL Low 0.70-1.20 [facility] Serum glucose measurement (m ass/volume)Ordered By: Ambreen Delaney on 08-06-2024 Glucose [Mass/Vol] 231 mg/dL High 70-99 [facility] Serum or plasma calcium aminta urement (mass/volume)Ordered By: Ambreen Delaney on 08-06-2024 Calcium [Mass/Vol] 9.2 mg/dL 7.6-11.0 [facility] Serum or plasma urea nitroge n measurement (mass/volume)Ordered By: Ambreen Delaney on 08-06-2024 Urea nitrogen [Mass/Vol] 14 mg/dL 4- [facility] Sodium levelOrdered By: Ximena Delaney on 08-06-2024 Sodium [Moles/Vol] 141 mmol/L 133-145 [facility] Cardiology Visit Reporton Cardiology Visit Report Normal [facility] L499.0043on 07-26-2024 Trop T High Sen Normal <=14 [facility] Comment on above: Result Comment: Canc elled via OM: Order cancelled - Patient discharged Performed By: #### L 499.0043 ####[facility] [address] [place], [address] 12 Lead EKGon 07-25-2024 12 Lead EKG Normal [facility] 12 Lead EKG Normal [facility] Absolute lymphocyte countOrd ered By: Ranjit Rosario on 07-25-2024 Lymphocytes Auto (Unsp spec) [#/Vol] 2.48 10*3/uL 0.83-4.51 [facility] Absolute neutrophil countOrd ered By: Ranjit Rosario on 07-25-2024 Neutrophils (Bld) [#/Vol] 4.0 10*3/uL 2.0-7.7 [facility] Anion gap in Serum or Plasma Ordered By: Ranjit Rosario on 07-25-2024 Anion gap [Moles/Vol] 15 mmol/L 5- [facility] Automated lymphocyte count a s percentage of total leukocytesOrdered By: Ranjit Rosario on 07-25-2024 Lymphocytes/100 WBC Auto (Unsp spec) 34.6 % - [facility] BUN/creatinine ratioOrdered By: Ranjitannabella Rosario on 07-25-2024 Urea nitrogen/Creatinine [Mass ratio] 13.0 mg/mg - [facility] Basic Metabolic Profile (BMP )on 07-25-2024 BUN/CRE 13.0 RATIO Normal - [facility] Comment on above: Performed By: #### L 500.2500, L501.4021, L100.0100 ####[facility] [address] [place], [address] Calcium [Mass/Vol] 9.3 mg/dL Normal 7.6-11.0 [facility] Comment on above: Performed By: #### L 500.2500, L501.4021, L100.0100 ####[facility] [address] [place], [address] Chloride [Moles/Vol] 106 mmol/L Normal 98-108 [facility] Comment on above: Performed By: #### L 500.2500, L501.4021, L100.0100 ####[facility] [address] [place], [address] CO2 [Moles/Vol] 21.1 mmol/L Normal 21.0-32.0 [facility] Comment on above: Performed By: #### L 500.2500, L501.4021, L100.0100 ####[facility] [address] [place], [address] Creatinine [Mass/Vol] 0.66 mg/dL Low 0.70-1.20 [facility] Comment on above: Performed By: #### L 500.2500, L501.4021, L100.0100 ####[facility] [address] [place], [address] ECRCL 88.89 ml/min Normal 50-250 [facility] Comment on above: Performed By: #### L 500.2500, L501.4021, L100.0100 ####[facility] [address] [place], [address] GAP 15 Normal 5-15 [facility] Comment on above: Performed By: #### L 500.2500, L501.4021, L100.0100 ####[facility] [address] [place], [address] GFR/1.73 sq M.predicted among non-blacks MDRD (S/P/Bld) [Vol rate/Area] 98 mL/min/{1.73_m2} Normal >60 [facility] Comment on above: Result Comment: mL/m in/1.73m2 CKD-EPI Creatinine Equation (2020) Performed By: #### L 500.2500, L501.4021, L100.0100 ####[facility] [address] [place], [address] Glucose [Mass/Vol] 182 mg/dL High 70-99 [facility] Comment on above: Performed By: #### L 500.2500, L501.4021, L100.0100 ####[facility] [address] [place], [address] Potassium [Moles/Vol] 3.2 mmol/L Low 3.3-5.1 [facility] Comment on above: Performed By: #### L 500.2500, L501.4021, L100.0100 ####[facility] [address] [place], [address] Sodium [Moles/Vol] 142 mmol/L Normal 133-145 [facility] Comment on above: Performed By: #### L 500.2500, L501.4021, L100.0100 ####[facility] [address] [place], [address] Urea nitrogen [Mass/Vol] 9 mg/dL Normal 4-19 [facility] Comment on above: Performed By: #### L 500.2500, L501.4021, L100.0100 ####[facility] [address] [place], [address] Basophil percentageOrdered B y: Ranjit Rosario on 07-25-2024 Basophils/100 WBC (Bld) 0.3 % 0-1 [facility] CBC W/Diff, Automatedon 07-05 Absolute Lymph 2.48 X10 3/uL Normal 0.83-4.51 [facility] Comment on above: Performed By: #### L 500.2500, L501.4021, L100.0100 ####[facility] [address] [place], [address] Absolute Neut 4.0 X10 3/uL Normal 2.0-7.7 [facility] Comment on above: Performed By: #### L 500.2500, L501.4021, L100.0100 ####[facility] [address] [place], [address] Basophils/100 WBC (Bld) 0.3 % Normal 0-1 [facility] Comment on above: Performed By: #### L 500.2500, L501.4021, L100.0100 ####[facility] [address] [place], [address] Eosinophils/100 WBC (Bld) 2.4 % Normal 0-5 [facility] Comment on above: Performed By: #### L 500.2500, L501.4021, L100.0100 ####[facility] [address] [place], [address] Erythrocyte distribution width (RBC) [Ratio] 17.1 % High 11.6-14.6 [facility] Comment on above: Performed By: #### L 500.2500, L501.4021, L100.0100 ####[facility] [address] [place], [address] Hematocrit (Bld) [Volume fraction] 38.8 % Normal 37-47 [facility] Comment on above: Performed By: #### L 500.2500, L501.4021, L100.0100 ####[facility] [address] [place], [address] Hemoglobin (Bld) [Mass/Vol] 12.5 g/dL Normal 12.0-15.0 [facility] Comment on above: Performed By: #### L 500.2500, L501.4021, L100.0100 ####[facility] [address] [place], [address] IG% 0.400 Normal 0.0-0.9 [facility] Comment on above: Result Comment: IG% - Immature Granulocytes (promyelocytes, myelocytes andmetamyelocytes) > 1% indicates that a LEFT SHIFT is Present. Performed By: #### L 500.2500, L501.4021, L100.0100 ####[facility] [address] [place], [address] Lymphocytes/100 WBC (Bld) 34.6 % Normal 19-41 [facility] Comment on above: Performed By: #### L 500.2500, L501.4021, L100.0100 ####[facility] [address] [place], [address] MCH (RBC) [Entitic mass] 27.0 pg Normal 27.0-32.0 [facility] Comment on above: Performed By: #### L 500.2500, L501.4021, L100.0100 ####[facility] [address] [place], [address] MCHC (RBC) [Mass/Vol] 32.2 g/dL Normal 32-36 [facility] Comment on above: Performed By: #### L 500.2500, L501.4021, L100.0100 ####[facility] [address] [place], [address] MCV (RBC) [Entitic vol] 83.8 fL Normal 81-99 [facility] Comment on above: Performed By: #### L 500.2500, L501.4021, L100.0100 ####[facility] [address] [place], [address] Monocytes/100 WBC (Bld) 6.6 % Normal 0-10 [facility] Comment on above: Performed By: #### L 500.2500, L501.4021, L100.0100 ####[facility] [address] [place], [address] Neutrophils/100 WBC (Bld) 55.7 % Normal 47-70 [facility] Comment on above: Performed By: #### L 500.2500, L501.4021, L100.0100 ####[facility] [address] [place], [address] Nucleated RBC (Bld) [#/Vol] 0 10*3/uL Normal 0-5 [facility] Comment on above: Performed By: #### L 500.2500, L501.4021, L100.0100 ####[facility] [address] [place], [address] Platelet mean volume (Bld) [Entitic vol] 10.2 fL Normal 6.2-12.0 [facility] Comment on above: Performed By: #### L 500.2500, L501.4021, L100.0100 ####[facility] [address] [place], [address] Platelets (Bld) [#/Vol] 192 10*3/uL Normal 150-450 [facility] Comment on above: Performed By: #### L 500.2500, L501.4021, L100.0100 ####[facility] [address] [place], [address] RBC (Bld) [#/Vol] 4.63 10*6/uL Normal 4.2-5.[address] [facility] Comment on above: Performed By: #### L 500.2500, L501.4021, L100.0100 ####[facility] [address] [place], [address] RDW SD 51.9 fl High 35.1-43.9 [facility] Comment on above: Performed By: #### L 500.2500, L501.4021, L100.0100 ####[facility] [address] [place], [address] WBC (Bld) [#/Vol] 7.2 10*3/uL Normal 4.4-11.0 [facility] Comment on above: Performed By: #### L 500.2500, L501.4021, L100.0100 ####[facility] [address] [place], [address] Carbon dioxide, total [Moles /volume] in Central venous bloodOrdered By: Ranjit Rosario on 07-25-2024 CO2 [Moles/Vol] 21.1 mmol/L 21.0-32.0 [facility] Chest 1 View (Portable)on Chest 1 View (Portable) Normal [facility] Chloride assayOrdered By: Chan Rosario on 07-25-2024 Chloride [Moles/Vol] 106 mmol/L 98-108 [facility] Emergency Department Summary on 07-25-2024 Emergency Department Summary Normal [facility] Eosinophil percentageOrdered By: Ranjit Rosario on 07-25-2024 Eosinophils/100 WBC (Bld) 2.4 % 0-5 [facility] Erythrocyte distribution wid th ratioOrdered By: Ranjit Rosario on 07-25-2024 Erythrocyte distribution width (RBC) [Ratio] 17.1 % High 11.6-14.6 [facility] Erythrocyte distribution wid th standard deviationOrdered By: Ranjit Rosario on 07-25-2024 Erythrocyte distribution width (RBC) [Ratio] 51.9 fl High 35.1-43.9 [facility] Glomerular filtration rate ( GFR) estimation/1.73 sq m using serum, plasma, or whole bOrdered By: Ranjit Rosario on 07-25-2024 GFR/1.73 sq M.predicted among non-blacks MDRD (S/P/Bld) [Vol rate/Area] 98 mL/min/{1.73_m2} >60 [facility] Comment on above: mL/min/1.73m2 CKD-EP I Creatinine Equation (2020) Hematocrit Auto (Bld) [Volum e fraction]Ordered By: Ranjit Rosario on 07-25-2024 Hematocrit (Bld) [Volume fraction] 38.8 % 37-47 [facility] Hemoglobin measurementOrdere d By: Ranjit Rosario on 07-25-2024 Hemoglobin (Bld) [Mass/Vol] 12.5 g/dL 12.0-15.0 [facility] Immature granulocytes/100 WB C Auto (Bld)Ordered By: Ranjit Rosario on 07-25-2024 Immature granulocytes/100 WBC (Bld) 0.400 % 0.0-0.9 [facility] Comment on above: IG% - Immature Granu locytes (promyelocytes, myelocytes and metamyelocytes) > 1% indicates that a LEFT SHIFT is Present. L499.0042on 07-25-2024 Trop T High Sen < 6 Normal <=14 [facility] Comment on above: Performed By: #### L 499.0042 ####[facility] [address] [place], [address] L501.4021on 07-25-2024 Trop T High Sen < 6 Normal <=14 [facility] Comment on above: Performed By: #### L 500.2500, L501.4021, L100.0100 ####[facility] [address] [place], [address] MCV (mean corpuscular volume ) determinationOrdered By: Ranjit Rosario on 07-25-2024 MCV (RBC) [Entitic vol] 83.8 fL 81-99 [facility] Mean corpuscular hemoglobin (MCH) determinationOrdered By: Ranjit Rosario on 07-25-2024 MCH (RBC) [Entitic mass] 27.0 pg 27.0-32.0 [facility] Mean corpuscular hemoglobin concentration (MCHC) determinationOrdered By: Ranjit Rosario on 07-25-2024 MCHC (RBC) [Mass/Vol] 32.2 g/dL 32-36 [facility] Mean platelet volume determi nationOrdered By: Ranjit Rosario on 07-25-2024 Platelet mean volume (Bld) [Entitic vol] 10.2 fL 6.2-12.0 [facility] Monocyte percentageOrdered B y: Ranjit Rosario on 07-25-2024 Monocytes/100 WBC (Bld) 6.6 % 0-10 [facility] Neutrophil percentageOrdered By: Ranjit Rosario on 07-25-2024 Neutrophils/100 WBC (Bld) 55.7 % 47-70 [facility] Nucleated red blood cell per centageOrdered By: Ranjit Rosario on 07-25-2024 Nucleated RBC/100 WBC (Bld) [Ratio] 0 % 0-5 [facility] Platelet countOrdered By: Chan Rosario on 07-25-2024 Platelets (Bld) [#/Vol] 192 10*3/uL 150-450 [facility] Potassium measurement (mass/ volume)Ordered By: Ranjit Rosario on 07-25-2024 Potassium (Unsp spec) [Mass/Vol] 3.2 mmol/L Low 3.3-5.1 [facility] RBC Auto (Bld) [#/Vol]Ordere d By: Ranjit Rosario on 07-25-2024 RBC (Bld) [#/Vol] 4.63 10*6/uL 4.2-5.[address] [facility] Serum creatinine measurement (mass/volume)Ordered By: Ranjit Rosario on 07-25-2024 Creatinine [Mass/Vol] 0.66 mg/dL Low 0.70-1.20 [facility] Serum glucose measurement (m ass/volume)Ordered By: Ranjit Rosario on 07-25-2024 Glucose [Mass/Vol] 182 mg/dL High 70-99 [facility] Serum or plasma calcium aminta urement (mass/volume)Ordered By: Ranjit Rosario on 07-25-2024 Calcium [Mass/Vol] 9.3 mg/dL 7.6-11.0 [facility] Serum or plasma urea nitroge n measurement (mass/volume)Ordered By: Ranjit Rosario on 07-25-2024 Urea nitrogen [Mass/Vol] 9 mg/dL 4-19 [facility] Sodium levelOrdered By: Ranjit Rosairo on 07-25-2024 Sodium [Moles/Vol] 142 mmol/L 133-145 [facility] Troponin T.cardiac [Mass/vol ume] in Serum or Plasma by High sensitivity methodOrdered By: Ranjit Rosario on 07-25-2024 Troponin T.cardiac High sensitivity method [Mass/Vol] < 6 ng/L <14 [facility] Troponin T.cardiac High sensitivity method [Mass/Vol] < 6 ng/L <14 [facility] Comment on above: Delta: 7 on 07/03/24 -1850 White blood cell (WBC) count Ordered By: Ranjit Rosario on 07-25-2024 WBC (Bld) [#/Vol] 7.2 10*3/uL 4.4-11.0 [facility] CNPNon 07-18-2024 CNPN Telephone (AGRHEUHWN ) JAYLIN CARROLL ([id number]) 1960 F Date Time Provider Department 07/18/24 ROBERT FARIAS During your visit today, we recorded the following information about you: Balbina Alford 07/30/2024 9:18 AM Addendum Renvaldemar, [place] - PENDING [id number] [facility]/Portal Akash Bullard Lori 07/30/2024 9:19 AM Signed Inflectra, [place] - PENDING [id number] [facility]Portal Renflexsukumar DENIED - Need to try and fail [facility] or Avsola Akash Bullard Lori 08/07/2024 9:39 AM Signed [facility], [place] - APPROVED [id number] 07.30.24 - 10.28.24 for 3 visits Melissasourcdevon/Portal Akash Bullard Allergies As of Date: 07/18/2024 Noted Allergy Reaction DEMEROL (MEPERIDINE) 06/19/2020 14 - Other: See Comments Comments: Lowered blood pressure extremely low SULFA (SULFONAMIDE ANTIBIOTICS) 06/19/2020 8 - GI Upset Comments: Stomach pain severe Date Reviewed: 06/14/2024 Reviewed by: Ashley Bedoya MA - Fully Assessed Reason for Visit: INFLECTRA - APPROVED [Other] Cmt: Kirill Esquivel - APPROVED [id number] 07.30.24 - 10.28.24 for 3 visits [facility] Renflexsuukmar [place] - DENIED [id number] [facility]al Prescriptions as of 08/07/2024 - methotrexate 2.5 mg tablet take 6 [...] mouth once daily. Facility-Administered Medications as of 08/07/2024 - lidocaine-prilocaine 2.5-2.5 % (EMLA) Problem List As Of Date 07/18/2024 Noted Resolved Rheumatoid arthritis involving both hands with *06/19/2020 Chronic bilateral low back pain without sciatic*06/19/2020 Anemia, chronic disease [D63.8] 02/05/2024 Recurrent infections [B99.9] 02/05/2024 Encounter Status:Closed by BALBINA ALFORD on 07/18/24 Normal [facility] 12 Lead EKGon 07-03-2024 12 Lead EKG Normal [facility] Absolute lymphocyte countOrd ered By: Corey De Jesus on 07-03-2024 Lymphocytes Auto (Unsp spec) [#/Vol] 2.82 10*3/uL 0.83-4.51 [facility] Absolute neutrophil countOrd ered By: Corey De Jesus on 07-03-2024 Neutrophils (Bld) [#/Vol] 3.2 10*3/uL 2.0-7.7 [facility] Activated partial thrombopla stin time (aPTT) in platelet poor plasma by coagulation aOrdered By: Corey De Jesus on 07-03-2024 aPTT Coag (PPP) [Time] 28.5 s 24.1-36.2 [facility] Anion gap in Serum or Plasma Ordered By: Corey De Jesus on 07-03-2024 Anion gap [Moles/Vol] 14 mmol/L 07-18 [facility] Automated lymphocyte count a s percentage of total leukocytesOrdered By: Corey De Jesus on 07-03-2024 Lymphocytes/100 WBC Auto (Unsp spec) 41.7 % High 19-41 [facility] BUN/creatinine ratioOrdered By: Corey De Jesus on 07-03-2024 Urea nitrogen/Creatinine [Mass ratio] 28.0 mg/mg High 10-20 [facility] Basic Metabolic Profile (BMP )on 07-03-2024 BUN/CRE 28.0 RATIO High 10- [facility] Comment on above: Performed By: #### L 500.2500, L501.4021, L300.4310, L300.8000, L100.0100, L300.3900 ####[facility] [address] [place], [address] Calcium [Mass/Vol] 9.3 mg/dL Normal 7.6-11.0 [facility] Comment on above: Performed By: #### L 500.2500, L501.4021, L300.4310, L300.8000, L100.0100, L300.3900 ####[facility] [address] [place], [address] Chloride [Moles/Vol] 108 mmol/L Normal 98-108 [facility] Comment on above: Performed By: #### L 500.2500, L501.4021, L300.4310, L300.8000, L100.0100, L300.3900 ####[facility] [address] [place], [address] CO2 [Moles/Vol] 21.2 mmol/L Normal 21.0-32.0 [facility] Comment on above: Performed By: #### L 500.2500, L501.4021, L300.4310, L300.8000, L100.0100, L300.3900 ####[facility] [address] [place], [address] Creatinine [Mass/Vol] 0.59 mg/dL Low 0.70-1.20 [facility] Comment on above: Performed By: #### L 500.2500, L501.4021, L300.4310, L300.8000, L100.0100, L300.3900 ####[facility] [address] [place], [address] ECRCL 99.75 ml/min Normal 50-250 [facility] Comment on above: Performed By: #### L 500.2500, L501.4021, L300.4310, L300.8000, L100.0100, L300.3900 ####[facility] [address] [place], [address] GAP 14 Normal 5-15 [facility] Comment on above: Performed By: #### L 500.2500, L501.4021, L300.4310, L300.8000, L100.0100, L300.3900 ####[facility] [address] [place], [address] GFR/1.73 sq M.predicted among non-blacks MDRD (S/P/Bld) [Vol rate/Area] 101 mL/min/{1.73_m2} Normal >60 [facility] Comment on above: Result Comment: mL/m in/1.73m2 CKD-EPI Creatinine Equation (2020) Performed By: #### L 500.2500, L501.4021, L300.4310, L300.8000, L100.0100, L300.3900 ####[facility] [address] [place], [address] Glucose [Mass/Vol] 129 mg/dL High 70-99 [facility] Comment on above: Performed By: #### L 500.2500, L501.4021, L300.4310, L300.8000, L100.0100, L300.3900 ####[facility] [address] [place], [address] Potassium [Moles/Vol] 3.3 mmol/L Normal 3.3-5.1 [facility] Comment on above: Performed By: #### L 500.2500, L501.4021, L300.4310, L300.8000, L100.0100, L300.3900 ####[facility] [address] [place], [address] Sodium [Moles/Vol] 142 mmol/L Normal 133-145 [facility] Comment on above: Performed By: #### L 500.2500, L501.4021, L300.4310, L300.8000, L100.0100, L300.3900 ####[facility] [address] [place], [address] Urea nitrogen [Mass/Vol] 17 mg/dL Normal 4-19 [facility] Comment on above: Performed By: #### L 500.2500, L501.4021, L300.4310, L300.8000, L100.0100, L300.3900 ####[facility] [address] [place], [address] Basophil percentageOrdered B y: Corey Lopezryland on 07-03-2024 Basophils/100 WBC (Bld) 0.4 % 0-1 [facility] CBC W/Diff, Automatedon 06-06-2024 Absolute Lymph 2.82 X10 3/uL Normal 0.83-4.51 [facility] Comment on above: Performed By: #### L 500.2500, L501.4021, L300.4310, L300.8000, L100.0100, L300.3900 ####[facility] [address] [place], [address] Absolute Neut 3.2 X10 3/uL Normal 2.0-7.7 [facility] Comment on above: Performed By: #### L 500.2500, L501.4021, L300.4310, L300.8000, L100.0100, L300.3900 ####[facility] [address] [place], [address] Basophils/100 WBC (Bld) 0.4 % Normal 0-1 [facility] Comment on above: Performed By: #### L 500.2500, L501.4021, L300.4310, L300.8000, L100.0100, L300.3900 ####[facility] [address] [place], [address] Eosinophils/100 WBC (Bld) 2.4 % Normal 0-5 [facility] Comment on above: Performed By: #### L 500.2500, L501.4021, L300.4310, L300.8000, L100.0100, L300.3900 ####[facility] [address] [place], [address] Erythrocyte distribution width (RBC) [Ratio] 18.0 % High 11.6-14.6 [facility] Comment on above: Performed By: #### L 500.2500, L501.4021, L300.4310, L300.8000, L100.0100, L300.3900 ####[facility] [address] [place], [address] Hematocrit (Bld) [Volume fraction] 38.5 % Normal 37-47 [facility] Comment on above: Performed By: #### L 500.2500, L501.4021, L300.4310, L300.8000, L100.0100, L300.3900 ####[facility] [address] [place], [address] Hemoglobin (Bld) [Mass/Vol] 12.5 g/dL Normal 12.0-15.0 [facility] Comment on above: Performed By: #### L 500.2500, L501.4021, L300.4310, L300.8000, L100.0100, L300.3900 ####[facility] [address] [place], [address] IG% 0.300 Normal 0.0-0.9 [facility] Comment on above: Result Comment: IG% - Immature Granulocytes (promyelocytes, myelocytes andmetamyelocytes) > 1% indicates that a LEFT SHIFT is Present. Performed By: #### L 500.2500, L501.4021, L300.4310, L300.8000, L100.0100, L300.3900 ####[facility] [address] [place], [address] Lymphocytes/100 WBC (Bld) 41.7 % High 19-41 [facility] Comment on above: Performed By: #### L 500.2500, L501.4021, L300.4310, L300.8000, L100.0100, L300.3900 ####[facility] [address] [place], [address] MCH (RBC) [Entitic mass] 27.1 pg Normal 27.0-32.0 [facility] Comment on above: Performed By: #### L 500.2500, L501.4021, L300.4310, L300.8000, L100.0100, L300.3900 ####[facility] [address] [place], [address] MCHC (RBC) [Mass/Vol] 32.5 g/dL Normal 32-36 [facility] Comment on above: Performed By: #### L 500.2500, L501.4021, L300.4310, L300.8000, L100.0100, L300.3900 ####[facility] [address] [place], [address] MCV (RBC) [Entitic vol] 83.5 fL Normal 81-99 [facility] Comment on above: Performed By: #### L 500.2500, L501.4021, L300.4310, L300.8000, L100.0100, L300.3900 ####[facility] [address] [place], [address] Monocytes/100 WBC (Bld) 7.5 % Normal 0-10 [facility] Comment on above: Performed By: #### L 500.2500, L501.4021, L300.4310, L300.8000, L100.0100, L300.3900 ####[facility] [address] [place], [address] Neutrophils/100 WBC (Bld) 47.7 % Normal 47-70 [facility] Comment on above: Performed By: #### L 500.2500, L501.4021, L300.4310, L300.8000, L100.0100, L300.3900 ####[facility] [address] [place], [address] Nucleated RBC (Bld) [#/Vol] 0 10*3/uL Normal 0-5 [facility] Comment on above: Performed By: #### L 500.2500, L501.4021, L300.4310, L300.8000, L100.0100, L300.3900 ####[facility] [address] [place], [address] Platelet mean volume (Bld) [Entitic vol] 9.9 fL Normal 6.2-12.0 [facility] Comment on above: Performed By: #### L 500.2500, L501.4021, L300.4310, L300.8000, L100.0100, L300.3900 ####[facility] [address] [place], [address] Platelets (Bld) [#/Vol] 208 10*3/uL Normal 150-450 [facility] Comment on above: Performed By: #### L 500.2500, L501.4021, L300.4310, L300.8000, L100.0100, L300.3900 ####[facility] [address] [place], [address] RBC (Bld) [#/Vol] 4.61 10*6/uL Normal 4.2-5.[address] [facility] Comment on above: Performed By: #### L 500.2500, L501.4021, L300.4310, L300.8000, L100.0100, L300.3900 ####[facility] [address] [place], [address] RDW SD 53.6 fl High 35.1-43.9 [facility] Comment on above: Performed By: #### L 500.2500, L501.4021, L300.4310, L300.8000, L100.0100, L300.3900 ####[facility] [address] [place], [place], [address] WBC (Bld) [#/Vol] 6.8 10*3/uL Normal 4.4-11.0 [facility] Comment on above: Performed By: #### L 500.2500, L501.4021, L300.4310, L300.8000, L100.0100, L300.3900 ####[facility] [address] [place], [address] Carbon dioxide, total [Moles /volume] in Central venous bloodOrdered By: Corey De Jesus on 07-03-2024 CO2 [Moles/Vol] 21.2 mmol/L 21.0-32.0 [facility] Chest 1 View (Portable)on Chest 1 View (Portable) Normal [facility] Chloride assayOrdered By: Trever De Jesus on 07-03-2024 Chloride [Moles/Vol] 108 mmol/L 98-108 [facility] D-Dimer Quantitative (DVT/PE )on 07-03-2024 D-DIMER QUANT < 0.27 Low 0.27-0.49 [facility] Comment on above: Result Comment: NORM AL D-Dimer level (<0.50) indicates no DVT or PE. Performed By: #### L 500.2500, L501.4021, L300.4310, L300.8000, L100.0100, L300.3900 ####[facility] [address] [place], [address] Emergency Department Summary on 07-03-2024 Emergency Department Summary Normal [facility] Eosinophil percentageOrdered By: Corey De Jesus on 07-03-2024 Eosinophils/100 WBC (Bld) 2.4 % 0-5 [facility] Erythrocyte distribution wid th ratioOrdered By: Corey De Jesus on 07-03-2024 Erythrocyte distribution width (RBC) [Ratio] 18.0 % High 11.6-14.6 [facility] Erythrocyte distribution wid th standard deviationOrdered By: Corey De Jesus on 07-03-2024 Erythrocyte distribution width (RBC) [Ratio] 53.6 fl High 35.1-43.9 [facility] Glomerular filtration rate ( GFR) estimation/1.73 sq m using serum, plasma, or whole bOrdered By: Corey De Jesus on 07-03-2024 GFR/1.73 sq M.predicted among non-blacks MDRD (S/P/Bld) [Vol rate/Area] 101 mL/min/{1.73_m2} >60 [facility] Comment on above: mL/min/1.73m2 CKD-EP I Creatinine Equation (2020) Hematocrit Auto (Bld) [Volum e fraction]Ordered By: Corey De Jesus on 07-03-2024 Hematocrit (Bld) [Volume fraction] 38.5 % 37-47 [facility] Hemoglobin measurementOrdere d By: Corey De Jesus on 07-03-2024 Hemoglobin (Bld) [Mass/Vol] 12.5 g/dL 12.0-15.0 [facility] Immature granulocytes/100 WB C Auto (Bld)Ordered By: Corey De Jesus on 07-03-2024 Immature granulocytes/100 WBC (Bld) 0.300 % 0.0-0.9 [facility] Comment on above: IG% - Immature Granu locytes (promyelocytes, myelocytes and metamyelocytes) > 1% indicates that a LEFT SHIFT is Present. International normalized rat io (INR) calculationOrdered By: Corey De Jesus on 07-03-2024 INR Coag (Bld) [Relative time] 0.9 {INR} [facility] L499.0042on 07-03-2024 Trop T High Sen < 6 Normal <=14 [facility] Comment on above: Performed By: #### L 499.0042 ####[facility] [address] [place], [address] L499.0043on 07-03-2024 Trop T High Sen Normal <=14 [facility] Comment on above: Result Comment: Canc elled via OM: Order cancelled - Patient discharged Performed By: #### L 499.0043 ####[facility] [address] [place], [address] L501.4021on 07-03-2024 Trop T High Sen 7 ng/L Normal <=14 [facility] Comment on above: Performed By: #### L 500.2500, L501.4021, L300.4310, L300.8000, L100.0100, L300.3900 ####[facility] [address] [place], [address] MCV (mean corpuscular volume ) determinationOrdered By: Corey De Jesus on 07-03-2024 MCV (RBC) [Entitic vol] 83.5 fL 81-99 [facility] Mean corpuscular hemoglobin (MCH) determinationOrdered By: Corey De Jesus on 07-03-2024 MCH (RBC) [Entitic mass] 27.1 pg 27.0-32.0 [facility] Mean corpuscular hemoglobin concentration (MCHC) determinationOrdered By: Corey De Jesus on 07-03-2024 MCHC (RBC) [Mass/Vol] 32.5 g/dL 32-36 [facility] Mean platelet volume determi nationOrdered By: Corey De Jesus on 07-03-2024 Platelet mean volume (Bld) [Entitic vol] 9.9 fL 6.2-12.0 [facility] Monocyte percentageOrdered B y: Corey De Jesus on 07-03-2024 Monocytes/100 WBC (Bld) 7.5 % 0-10 [facility] Neutrophil percentageOrdered By: Corey De Jesus on 07-03-2024 Neutrophils/100 WBC (Bld) 47.7 % 47-70 [facility] Nucleated red blood cell per centageOrdered By: Corey De Jesus on 07-03-2024 Nucleated RBC/100 WBC (Bld) [Ratio] 0 % 0-5 [facility] Partial Thromboplast Timeon 07-03-2024 aPTT Coag (Bld) [Time] 28.5 s Normal 24.1-36.2 [facility] Comment on above: Performed By: #### L 500.2500, L501.4021, L300.4310, L300.8000, L100.0100, L300.3900 ####[facility] [address] [place], [address] Platelet countOrdered By: Trever De Jesus on 07-03-2024 Platelets (Bld) [#/Vol] 208 10*3/uL 150-450 [facility] Potassium measurement (mass/ volume)Ordered By: Corey De Jesus on 07-03-2024 Potassium (Unsp spec) [Mass/Vol] 3.3 mmol/L 3.3-5.1 [facility] Prothrombin Time w/INRon INR Coag (PPP) [Relative time] 0.9 {INR} Normal [facility] Comment on above: Performed By: #### L 500.2500, L501.4021, L300.4310, L300.8000, L100.0100, L300.3900 ####[facility] [address] [place], [address] PT Coag (PPP) [Time] 12.4 s Normal 11.7-14.9 [facility] Comment on above: Performed By: #### L 500.2500, L501.4021, L300.4310, L300.8000, L100.0100, L300.3900 ####[facility] [address] [place], [address] Prothrombin timeOrdered By: Corey De Jesus on 07-03-2024 PT Coag (PPP) [Time] 12.4 s 11.7-14.9 [facility] RBC Auto (Bld) [#/Vol]Ordere d By: Corey De Jesus on 07-03-2024 RBC (Bld) [#/Vol] 4.61 10*6/uL 4.2-5.[address] [facility] Serum creatinine measurement (mass/volume)Ordered By: Corey De Jesus on 07-03-2024 Creatinine [Mass/Vol] 0.59 mg/dL Low 0.70-1.20 [facility] Serum glucose measurement (m ass/volume)Ordered By: Corey De Jesus on 07-03-2024 Glucose [Mass/Vol] 129 mg/dL High 70-99 [facility] Serum or plasma calcium aminta urement (mass/volume)Ordered By: Corey De Jesus on 07-03-2024 Calcium [Mass/Vol] 9.3 mg/dL 7.6-11.0 [facility] Serum or plasma urea nitroge n measurement (mass/volume)Ordered By: Corey De Jesus on 07-03-2024 Urea nitrogen [Mass/Vol] 17 mg/dL 4-19 [facility] Sodium levelOrdered By: Corey De Jesus on 07-03-2024 Sodium [Moles/Vol] 142 mmol/L 133-145 [facility] Troponin T.cardiac [Mass/vol ume] in Serum or Plasma by High sensitivity methodOrdered By: Corey De Jesus on 07-03-2024 Troponin T.cardiac High sensitivity method [Mass/Vol] < 6 ng/L <14 [facility] Troponin T.cardiac High sensitivity method [Mass/Vol] 7 ng/L <14 [facility] White blood cell (WBC) count Ordered By: Corey De Jesus on 07-03-2024 WBC (Bld) [#/Vol] 6.8 10*3/uL 4.4-11.0 [facility] CNOVon 06-14-2024 CNOV Office Visit (MACRINA ) JAYLIN CARROLL ([id number]) 1960 F Date Time Provider Department 06/14/24 2:40 PM ROBERT FARIAS During your visit today, we recorded the following information about you: Temperature Pulse Blood pressure Weight 98.2 degrees 84/minute 139/85 81.9 kg Height 1.549 m Robert Farias MD 06/14/2024 5:16 PM Signed This note was created using PowerPracticalriter. Subjective Jaylin aCrroll is a 63 year old female. I [...] Plan First visit 06/19/2020 ( moved from [place] ) RA and wants treatment for that 06/24 ( Q 4 months )) [facility] coronary artery disease cannot use NSAID.. RA [...] 2nd 3 [address] MCP ) Dr. Mendes [place] [facility] : 01/2020 last [...] ) ) 10/25 02/24 05/26 08/26 10.23 04/2906/14/2024 remission . ( coronary artery disease will [...] cmp cr 0.46, .04/12/2024 K 3.5 Anemia 2024 nov 9.4/30.9 low (( not on NSAID ) (( 01/2024 NSAID stopped as [facility] ) (( no GI bleed, stool blood [...] skin testing (more content not included)... Normal [facility] Cardiology Visit Reporton Cardiology Visit Report Normal [facility] Gastroenterology Visit Repor ton 05-29-2024 Gastroenterology Visit Report Normal [facility] CNPNon 05-28-2024 [facility] Tele[facility] ([facility]HWN ) JAYLIN CARROLL ([id number]) 1960 F Date Time Provider Department 05/28/24 ROBERT FARIAS During your visit today, we recorded the following information about you: Balbina Alford 05/28/2024 10:11 AM Signed Kirill Contreras - PENDING [id number] [facility] [employer] Alford, Parts Analyst Balbina Alford 05/30/2024 10:50 AM Signed Kirill Contreras - ALREADY AUTH ON FILE [id number] 08.04.23 - 08.02.24 [employer]uan [employer] Analyst Allergies As of Date: 05/28/2024 Noted Allergy Reaction DEMEROL (MEPERIDINE) 06/19/2020 14 - Other: See Comments Comments: Lowered blood pressure extremely low SULFA (SULFONAMIDE ANTIBIOTICS) 06/19/2020 8 - GI Upset Comments: Stomach pain severe Date Reviewed: 04/11/2024 Reviewed by: Ryan Vasquez RN - Fully Assessed Reason for Visit: RENFLEXIS - APPROVED [Other] Cmt: Kirill Contreras - ALREADY AUTH ON FILE [id number] 08.04.23 - 08.02.24 [facility] associationAir[facility] Prescriptions as of 05/30/2024 - hydrOXYchloroQUINE (PLAQUENIL) [...] Status:Closed by BALBINA ALFORD on 05/28/24 Normal [facility] Lipid Profileon 05-28-2024 CHOL Normal <=200 [facility] Comment on above: Result Comment: Canc elled via OM: Order cancelled - Patient discharged Performed By: #### L 500.4100 ####[facility] [address] [place], [address] CHOL:HDL Normal [facility] Comment on above: Result Comment: Canc elled via OM: Order cancelled - Patient discharged Performed By: #### L 500.4100 ####[facility] [address] [place], [address] CLDL Normal [facility] Comment on above: Result Comment: Canc elled via OM: Order cancelled - Patient discharged Performed By: #### L 500.4100 ####[facility] [address] [place], [address] HDL Normal [facility] Comment on above: Result Comment: Canc elled via OM: Order cancelled - Patient discharged Performed By: #### L 500.4100 ####[facility] [address] [place], [address] TRIG Normal [facility] Comment on above: Result Comment: Canc elled via OM: Order cancelled - Patient discharged Performed By: #### L 500.4100 ####[facility] [address] [place], [address] VLDL Normal 5-40 [facility] Comment on above: Result Comment: Canc elled via OM: Order cancelled - Patient discharged Performed By: #### L 500.4100 ####[facility] [address] [place], [address] 12 Lead EKGon 05-27-2024 12 Lead EKG Normal [facility] Absolute lymphocyte countOrd ered By: Natalie Gaspar on 05-27-2024 Lymphocytes Auto (Unsp spec) [#/Vol] 2.50 10*3/uL 0.83-4.51 [facility] Absolute neutrophil countOrd ered By: Natalie Hubert on 05-27-2024 Neutrophils (Bld) [#/Vol] 3.6 10*3/uL 2.0-7.7 [facility] Anion gap in Serum or Plasma Ordered By: Natalie Hubert on 05-27-2024 Anion gap [Moles/Vol] 12 mmol/L 5-15 [facility] Automated lymphocyte count a s percentage of total leukocytesOrdered By: Natalie Hubert on 05-27-2024 Lymphocytes/100 WBC Auto (Unsp spec) 35.2 % 19-41 [facility] BUN/creatinine ratioOrdered By: Natalie Hubert on 05-27-2024 Urea nitrogen/Creatinine [Mass ratio] 21.9 mg/mg High 10-20 [facility] Basophil percentageOrdered B y: Natalie Hubert on 05-27-2024 Basophils/100 WBC (Bld) 0.3 % 0-1 [facility] Bedside Glucoseon 05-27-2024 FINGERSTICK GLU 124 mg/dL High 74-106 [facility] Comment on above: Result Comment: DILIA GEMENT OF PATIENT CARE PER NURSING PROTOCOL Performed By: #### L 501.080 ####[facility] [address] [place], [address] FINGERSTICK GLU 178 mg/dL High 74-106 [facility] Comment on above: Result Comment: DILIA GEMENT OF PATIENT CARE PER NURSING PROTOCOL Performed By: #### L 501.080 ####[facility] [address] [place], [address] Bilirubin, totalOrdered By: Natalie Gaspar on 05-27-2024 Bilirubin [Mass/Vol] 0.25 mg/dL 0.00-1.30 [facility] CBC W/Diff, Automatedon 05-05 Absolute Lymph 2.50 X10 3/uL Normal 0.83-4.51 [facility] Comment on above: Performed By: #### L 100.0100, L500.4050, L501.5200 ####[facility] [address] [place], [address] Absolute Neut 3.6 X10 3/uL Normal 2.0-7.7 [facility] Comment on above: Performed By: #### L 100.0100, L500.4050, L501.5200 ####[facility] [address] [place], [address] Basophils/100 WBC (Bld) 0.3 % Normal 0-1 [facility] Comment on above: Performed By: #### L 100.0100, L500.4050, L501.5200 ####[facility] [address] [place], [address] Eosinophils/100 WBC (Bld) 3.4 % Normal 0-5 [facility] Comment on above: Performed By: #### L 100.0100, L500.4050, L501.5200 ####[facility] [address] [place], [address] Erythrocyte distribution width (RBC) [Ratio] 19.5 % High 11.6-14.6 [facility] Comment on above: Performed By: #### L 100.0100, L500.4050, L501.5200 ####[facility] [address] [place], [address] Hematocrit (Bld) [Volume fraction] 37.1 % Normal 37-47 [facility] Comment on above: Performed By: #### L 100.0100, L500.4050, L501.5200 ####[facility] [address] [place], [address] Hemoglobin (Bld) [Mass/Vol] 11.7 g/dL Low 12.0-15.0 [facility] Comment on above: Performed By: #### L 100.0100, L500.4050, L501.5200 ####[facility] [address] [place], [address] IG% 0.300 Normal 0.0-0.9 [facility] Comment on above: Result Comment: IG% - Immature Granulocytes (promyelocytes, myelocytes andmetamyelocytes) > 1% indicates that a LEFT SHIFT is Present. Performed By: #### L 100.0100, L500.4050, L501.5200 ####[facility] [address] [place], [address] Lymphocytes/100 WBC (Bld) 35.2 % Normal 19-41 [facility] Comment on above: Performed By: #### L 100.0100, L500.4050, L501.5200 ####[facility] [address] [place], [address] MCH (RBC) [Entitic mass] 26.1 pg Low 27.0-32.0 [facility] Comment on above: Performed By: #### L 100.0100, L500.4050, L501.5200 ####[facility] [address] [place], [address] MCHC (RBC) [Mass/Vol] 31.5 g/dL Low 32-36 [facility] Comment on above: Performed By: #### L 100.0100, L500.4050, L501.5200 ####[facility] [address] [place], [address] MCV (RBC) [Entitic vol] 82.8 fL Normal 81-99 [facility] Comment on above: Performed By: #### L 100.0100, L500.4050, L501.5200 ####[facility] [address] [place], [address] Monocytes/100 WBC (Bld) 10.7 % High 0-10 [facility] Comment on above: Performed By: #### L 100.0100, L500.4050, L501.5200 ####[facility] [address] [place], [address] Neutrophils/100 WBC (Bld) 50.1 % Normal 47-70 [facility] Comment on above: Performed By: #### L 100.0100, L500.4050, L501.5200 ####[facility] [address] [place], [address] Nucleated RBC (Bld) [#/Vol] 0 10*3/uL Normal 0-5 [facility] Comment on above: Performed By: #### L 100.0100, L500.4050, L501.5200 ####[facility] [address] [place], [address] Platelet mean volume (Bld) [Entitic vol] 10.3 fL Normal 6.2-12.0 [facility] Comment on above: Performed By: #### L 100.0100, L500.4050, L501.5200 ####[facility] [address] [place], [address] Platelets (Bld) [#/Vol] 183 10*3/uL Normal 150-450 [facility] Comment on above: Performed By: #### L 100.0100, L500.4050, L501.5200 ####[facility] [address] [place], [address] RBC (Bld) [#/Vol] 4.48 10*6/uL Normal 4.2-5.[address] [facility] Comment on above: Performed By: #### L 100.0100, L500.4050, L501.5200 ####[facility] [address] [place], [address] RDW SD 57.8 fl High 35.1-43.9 [facility] Comment on above: Performed By: #### L 100.0100, L500.4050, L501.5200 ####[facility] [address] [place], [address] WBC (Bld) [#/Vol] 7.1 10*3/uL Normal 4.4-11.0 [facility] Comment on above: Performed By: #### L 100.0100, L500.4050, L501.5200 ####[facility] [address] [place], [address] Carbon dioxide, total [Moles /volume] in Central venous bloodOrdered By: Natalie Gaspar on 05-27-2024 CO2 [Moles/Vol] 23.1 mmol/L 21.0-32.0 [facility] Cardiovascular stress test r eportOrdered By: Colby Davey on 05-27-2024 Study report [facility] [address] [place] [address] MR#: [id number] Acct: [id number] Name: JAYLIN CARROLL Rep #: [id number] : 1960 63 From: Colby Davey MD [...] Dr. Isael Baeza DO ~ Date Dictated: 05/27/24 1504 Date Transcribed: 05/27/241503 Spine Surgeon: [place] Signed [facility] Work Phone: Chloride assayOrdered By: Jenelle Gaspar on 05-27-2024 Chloride [Moles/Vol] 104 mmol/L 98-108 [facility] Comprehensive Metabolic Prof ilon 05-27-2024 Albumin [Mass/Vol] 4.1 g/dL Normal 3.4-4.8 [facility] Comment on above: Performed By: #### L 100.0100, L500.4050, L501.5200 ####[facility] [address] [place], [place], [address] Albumin/Globulin [Mass ratio] 1.9 {ratio} Normal 0.9-2.4 [facility] Comment on above: Performed By: #### L 100.0100, L500.4050, L501.5200 ####[facility] [address] [place], [address] ALK PHOS 79 U/L Normal 35-104 [facility] Comment on above: Performed By: #### L 100.0100, L500.4050, L501.5200 ####[facility] [address] [place], [address] ALT [Catalytic activity/Vol] 20 U/L Normal <=34 [facility] Comment on above: Performed By: #### L 100.0100, L500.4050, L501.5200 ####[facility] [address] [place], [address] AST [Catalytic activity/Vol] 19 U/L Normal <=31 [facility] Comment on above: Performed By: #### L 100.0100, L500.4050, L501.5200 ####[facility] [address] [place], [address] Bilirubin [Mass/Vol] 0.25 mg/dL Normal 0.00-1.30 [facility] Comment on above: Performed By: #### L 100.0100, L500.4050, L501.5200 ####[facility] [address] [place], [address] BUN/CRE 21.9 RATIO High 10-20 [facility] Comment on above: Performed By: #### L 100.0100, L500.4050, L501.5200 ####[facility] [address] [place], [address] Calcium [Mass/Vol] 9.1 mg/dL Normal 7.6-11.0 [facility] Comment on above: Performed By: #### L 100.0100, L500.4050, L501.5200 ####[facility] [address] [place], [address] Chloride [Moles/Vol] 104 mmol/L Normal 98-108 [facility] Comment on above: Performed By: #### L 100.0100, L500.4050, L501.5200 ####[facility] [address] [place], [address] CO2 [Moles/Vol] 23.1 mmol/L Normal 21.0-32.0 [facility] Comment on above: Performed By: #### L 100.0100, L500.4050, L501.5200 ####[facility] [address] [place], [address] Creatinine [Mass/Vol] 0.71 mg/dL Normal 0.70-1.20 [facility] Comment on above: Performed By: #### L 100.0100, L500.4050, L501.5200 ####[facility] [address] [place], [address] ECRCL 79.78 ml/min Normal 50-250 [facility] Comment on above: Performed By: #### L 100.0100, L500.4050, L501.5200 ####[facility] [address] [place], [address] GAP 12 Normal 5-15 [facility] Comment on above: Performed By: #### L 100.0100, L500.4050, L501.5200 ####[facility] [address] [place], [address] GFR/1.73 sq M.predicted among non-blacks MDRD (S/P/Bld) [Vol rate/Area] 96 mL/min/{1.73_m2} Normal >60 [facility] Comment on above: Result Comment: mL/m in/1.73m2 CKD-EPI Creatinine Equation (2020) Performed By: #### L 100.0100, L500.4050, L501.5200 ####[facility] [address] [place], [address] Globulin (S) [Mass/Vol] 2.1 g/dL Low 2.2-4.2 [facility] Comment on above: Performed By: #### L 100.0100, L500.4050, L501.5200 ####[facility] [address] [place], [address] Glucose [Mass/Vol] 196 mg/dL High 70-99 [facility] Comment on above: Performed By: #### L 100.0100, L500.4050, L501.5200 ####[facility] [address] [place], [address] Potassium [Moles/Vol] 3.9 mmol/L Normal 3.3-5.1 [facility] Comment on above: Performed By: #### L 100.0100, L500.4050, L501.5200 ####[facility] [address] [place], [address] Sodium [Moles/Vol] 139 mmol/L Normal 133-145 [facility] Comment on above: Performed By: #### L 100.0100, L500.4050, L501.5200 ####[facility] [address] [place], [address] T PROT 6.3 g/dL Normal 5.9-8.4 [facility] Comment on above: Performed By: #### L 100.0100, L500.4050, L501.5200 ####[facility] [address] [place], [address] Urea nitrogen [Mass/Vol] 16 mg/dL Normal 4-19 [facility] Comment on above: Performed By: #### L 100.0100, L500.4050, L501.5200 ####[facility] [address] [place], [address] Discharge Instructionon 03-2 Discharge Instruction Normal [facility] Electrocardiogram reportOrde red By: Colby Davey on 05-27-2024 EKG study [facility] Cardi[facility] Services [address] [place] [address] 12 Lead EKG 05/27/244 MR#: [id number] Acct: [id number] Name: JAYLIN CARROLL Rep #:[id number] : 1960 63 From: Colby Davey MD Attending Dr: Dr. Isael Baeza DO Status: ADM MACIEL Ordering Dr: Natalie Gaspar MD Date: 05/27/24 Location: [facility] Sex: F C Admitted: 05/27/24 Test Reason [...] No significant change was found Confirmed by COLBY DAVEY MD ([id number]), social media editor ANNALISE HARRISON ([id number]) on 59:48:40 AM Referred By: Confirmed By: COLBY DAVEY MD 05/27/24 0948 Date _ Colby Davey MD CC: Dr. Natalie Gaspar MD; Dr. Paul Greco MD; Dr. Isael Baeza, ~ Signed [facility] Work Phone: Eosinophil percentageOrdered By: Hubert on 05-27-2024 Eosinophils/100 WBC (Bld) 3.4 % 0-5 [facility] Erythrocyte distribution wid th ratioOrdered By: White on 05-27-2024 Erythrocyte distribution width (RBC) [Ratio] 19.5 % High 11.6-14.6 [facility] Erythrocyte distribution wid th standard deviationOrdered By: White on 05-27-2024 Erythrocyte distribution width (RBC) [Entitic vol] 57.8 fL High 35.1-43.9 [facility] Erythrocyte distribution width (RBC) [Ratio] 57.8 fl High 35.1-43.9 [facility] Estimation of creatinine debbie aranceOrdered By: Natalie Gaspar on 05-27-2024 Estimated Creatinine Clearance Calc 79.78 ml/min 50-250 [facility] GFR/1.73 sq M.predicted selma g non-blacks MDRD (S/P/Bld) [Vol rate/Area]Ordered By: Natalie Gaspar on 05-27-2024 Estimated GFR (MDRD) Non-Af Amer 96 >60 [facility] Comment on above: mL/min/1.73m2 CKD-EP I Creatinine Equation (2020) Glomerular filtration rate ( GFR) estimation/1.73 sq m using serum, plasma, or whole bOrdered By: Natalie Gaspar on 05-27-2024 GFR/1.73 sq M.predicted among non-blacks MDRD (S/P/Bld) [Vol rate/Area] 96 mL/min/{1.73_m2} >60 [facility] Comment on above: mL/min/1.73m2 CKD-EP I Creatinine Equation (2020) Glucose measurement at [facility] center barbouri deOrdered By: Isael Baeza on 05-27-2024 Bedside Glucose (Misc Panel) 124 mg/dL High 74-106 [facility] Comment on above: MANAGEMENT OF PATIEN T CARE PER NURSING PROTOCOL Glucose [Mass/Vol] 124 mg/dL High 74-106 [facility] Comment on above: MANAGEMENT OF PATIEN T CARE PER NURSING PROTOCOL H AND P Exam - Hospitaliston 05-27-2024 H&P Exam - Hospitalist Normal [facility] Hematocrit Auto (Bld) [Volum e fraction]Ordered By: Natalie Gaspar on 05-27-2024 Hematocrit (Bld) [Volume fraction] 37.1 % 37-47 [facility] Hemoglobin measurementOrdere d By: Natalie Gaspar on 05-27-2024 Hemoglobin (Bld) [Mass/Vol] 11.7 g/dL Low 12.0-15.0 [facility] Immature granulocytes/100 WB C Auto (Bld)Ordered By: Natalie Gaspar on 05-27-2024 Immature granulocytes/100 WBC (Bld) 0.300 % 0.0-0.9 [facility] Comment on above: IG% - Immature Granu locytes (promyelocytes, myelocytes and metamyelocytes) > 1% indicates that a LEFT SHIFT is Present. L499.0042on 05-27-2024 Trop T High Sen < 6 Normal <=14 [facility] Comment on above: Performed By: #### L 499.0042 ####[facility] [address] [place], [address] L499.0043on 05-27-2024 Trop T High Sen < 6 Normal <=14 [facility] Comment on above: Performed By: #### L 499.0043 ####[facility] [address] [place], [address] L501.4021on 05-27-2024 Trop T High Sen 7 ng/L Normal <=14 [facility] Comment on above: Performed By: #### L 501.4021 ####[facility] [address] [place], [place], [address] Laboratory - Chemistry and C hemistry - challengeOrdered By: [facility] on 05-27-2024 AST [Catalytic activity/Vol] 19 U/L <32 [facility] Lymphocytes Auto (Unsp spec) [#/Vol]Ordered By: [facility] on 05-27-2024 Lymphocytes (Bld) [#/Vol] 2.50 10*3/uL 0.83-4.51 [facility] Lymphocytes/100 WBC Auto (Un sp spec)Ordered By: [facility] on 05-27-2024 Lymphocytes/100 WBC (Bld) 35.2 % 19-41 [facility] MCV (mean corpuscular volume ) determinationOrdered By: [facility] on 05-27-2024 MCV (RBC) [Entitic vol] 82.8 fL 81-99 [facility] Magnesiumon 05-27-2024 Magnesium [Mass/Vol] 2.1 mg/dL Normal 1.5-2.2 [facility] Comment on above: Performed By: #### L 100.0100, L500.4050, L501.5200 ####[facility] [address] [place], [address] Magnesium (Unsp spec) [Mass/ Vol]Ordered By: Natalie Hubert on 05-27-2024 Magnesium [Mass/Vol] 2.1 mg/dL 1.5-2.2 [facility] Magnesium measurement (mass/ volume)Ordered By: Hubert on 05-27-2024 Magnesium (Unsp spec) [Mass/Vol] 2.1 mg/dL 1.5-2.2 [facility] Mean corpuscular hemoglobin (MCH) determinationOrdered By: Hubert on 05-27-2024 MCH (RBC) [Entitic mass] 26.1 pg Low 27.0-32.0 [facility] Mean corpuscular hemoglobin concentration (MCHC) determinationOrdered By: Hubert on 05-27-2024 MCHC (RBC) [Mass/Vol] 31.5 g/dL Low 32-36 [facility] Mean platelet volume determi nationOrdered By: Natalie Gaspar on 05-27-2024 Platelet mean volume (Bld) [Entitic vol] 10.3 fL 6.2-12.0 [facility] Monocyte percentageOrdered B y: Natalie Hubert on 05-27-2024 Monocytes/100 WBC (Bld) 10.7 % High 0-10 [facility] Neutrophil percentageOrdered By: Hubert on 05-27-2024 Neutrophils/100 WBC (Bld) 50.1 % 47-70 [facility] No Panel InformationOrdered By: Natalie Hubert on 05-27-2024 Troponin T High Sensitivity 7 ng/L <14 [facility] Nucleated red blood cell per centageOrdered By: Natalie Hubert on 05-27-2024 Nucleated RBC/100 WBC (Bld) [Ratio] 0 % 0-5 [facility] Platelet countOrdered By: Jenelle willson Hubert on 05-27-2024 Platelets (Bld) [#/Vol] 183 10*3/uL 150-450 [facility] Potassium (Unsp spec) [Mass/ Vol]Ordered By: Natalie Hubert on 05-27-2024 Potassium [Moles/Vol] 3.9 mmol/L 3.3-5.1 [facility] Potassium measurement (mass/ volume)Ordered By: Natalie Gaspar on 05-27-2024 Potassium (Unsp spec) [Mass/Vol] 3.9 mmol/L 3.3-5.1 [facility] RBC Auto (Bld) [#/Vol]Ordere d By: Natalie Gaspar on 05-27-2024 RBC (Bld) [#/Vol] 4.48 10*6/uL 4.2-5.[address] [facility] Serum creatinine measurement (mass/volume)Ordered By: Natalie Gaspar on 05-27-2024 Creatinine [Mass/Vol] 0.71 mg/dL 0.70-1.20 [facility] Serum globulin measurementOr dered By: Natalie Gaspar on 05-27-2024 Globulin (S) [Mass/Vol] 2.1 g/dL Low 2.2-4.2 [facility] Serum glucose measurement (m ass/volume)Ordered By: Natalie Gaspar on 05-27-2024 Glucose [Mass/Vol] 196 mg/dL High 70-99 [facility] Serum or plasma alanine mesa otransferase (ALT) measurementOrdered By: Natalie Gaspar on 05-27-2024 ALT [Catalytic activity/Vol] 20 U/L <35 [facility] Serum or plasma albumin aminta urement (mass/volume)Ordered By: Natalie Gaspar on 05-27-2024 Albumin [Mass/Vol] 4.1 g/dL 3.4-4.8 [facility] Serum or plasma albumin/glob ulin mass ratioOrdered By: Natalie Gaspar on 05-27-2024 Albumin/Globulin [Mass ratio] 1.9 {ratio} 0.9-2.4 [facility] Serum or plasma alkaline arcelia sphatase measurementOrdered By: Natalie Gaspar on 05-27-2024 ALP [Catalytic activity/Vol] 79 U/L 35-104 [facility] Serum or plasma calcium aminta urement (mass/volume)Ordered By: Natalie Gaspar 05-27-2024 Calcium [Mass/Vol] 9.1 mg/dL 7.6-11.0 [facility] Serum or plasma urea nitroge n measurement (mass/volume)Ordered By: Natalie Gaspar on 05-27-2024 Urea nitrogen [Mass/Vol] 16 mg/dL 4-19 [facility] Sodium levelOrdered By: Phu Gaspar on 05-27-2024 Sodium [Moles/Vol] 139 mmol/L 133-145 [facility] Stress Reporton 05-27-2024 Stress Report Normal [facility] Total proteinOrdered By: Loy Gaspar on 05-27-2024 Protein [Mass/Vol] 6.3 g/dL 5.9-8.4 [facility] Troponin T.cardiac High sens itivity method [Mass/Vol]Ordered By: Natalie Gaspar on 05-27-2024 Troponin T High Sensitivity 4 Hour < 6 ng/L <14 [facility] Troponin T High Sensitivity 2 Hour < 6 ng/L <14 [facility] Troponin T.cardiac [Mass/vol ume] in Serum or Plasma by High sensitivity methodOrdered By: Natalie Gaspar on 05-27-2024 Troponin T.cardiac High sensitivity method [Mass/Vol] < 6 ng/L <14 [facility] Troponin T.cardiac High sensitivity method [Mass/Vol] < 6 ng/L <14 [facility] White blood cell (WBC) count Ordered By: Natalie Gaspar on 05-27-2024 WBC (Bld) [#/Vol] 7.1 10*3/uL 4.4-11.0 [facility] .Auto Diffon 05-26-2024 Basophil, Absolute 0.0 10 3/mcL Normal 0.0-0.2 [facility] Comment on above: Performed By: #### M DW, MG, TROPHS, ANEU, PBNP, CBC, GFR, BMP, ADIFF #### [address] [address] Basophils/100 WBC (Bld) 0.5 % Normal 0.0-2.5 [facility] Comment on above: Performed By: #### M DW, MG, TROPHS, ANEU, PBNP, CBC, GFR, BMP, ADIFF #### [address] [address] Eosinophil, Absolute 0.3 10 3/mcL Normal 0.0-0.7 [facility] Comment on above: Performed By: #### M DW, MG, TROPHS, ANEU, PBNP, CBC, GFR, BMP, ADIFF #### [address] [address] Eosinophils/100 WBC (Bld) 3.2 % Normal 0.0-7.0 [facility] Comment on above: Performed By: #### M DW, MG, TROPHS, ANEU, PBNP, CBC, GFR, BMP, ADIFF #### [address] [address] Lymphocyte, Absolute 2.6 10 3/mcL Normal 0.9-4.3 [facility] Comment on above: Performed By: #### M DW, MG, TROPHS, ANEU, PBNP, CBC, GFR, BMP, ADIFF #### [address] [address] Lymphocytes/100 WBC (Bld) 33.0 % Normal 20.0-40.0 [facility] Comment on above: Performed By: #### M DW, MG, TROPHS, ANEU, PBNP, CBC, GFR, BMP, ADIFF #### [address] [address] Monocyte, Absolute 0.7 10 3/mcL Normal 0.1-1.4 [facility] Comment on above: Performed By: #### M DW, MG, TROPHS, ANEU, PBNP, CBC, GFR, BMP, ADIFF #### [address] [address] Monocytes/100 WBC (Bld) 8.5 % Normal 2.0-13.0 [facility] Comment on above: Performed By: #### M DW, MG, TROPHS, ANEU, PBNP, CBC, GFR, BMP, ADIFF #### [address] [address] Neutrophils/100 WBC (Bld) 54.8 % Normal 50.0-75.0 [facility] Comment on above: Performed By: #### M DW, MG, TROPHS, ANEU, PBNP, CBC, GFR, BMP, ADIFF #### [address] [address] .GFRon 05-26-2024 Estimated Glomerular Filtration Rate 79 ml/min/1.73sqm Normal [facility] Comment on above: Result Comment: Stages of [...] TROPHS, ANEU, PBNP, CBC, GFR, BMP, ADIFF ####[place] [phone] .MDWon 05-26-2024 Monocyte Distribution Width 18.55 Normal 0.00-20.00 [facility] Comment on above: Result Comment: For ED adult patients suspected of sepsis, MDW<=20.0 does not rule out sepsis or risk of sepsis Performed By: #### M DW, MG, TROPHS, ANEU, PBNP, CBC, GFR, BMP, ADIFF #### [address] [address] .NEUABSon 05-26-2024 Neutrophil, Absolute 4.4 10 3/mcL Normal 2.3-8.1 [facility] Comment on above: Performed By: #### M DW, MG, TROPHS, ANEU, PBNP, CBC, GFR, BMP, ADIFF #### [address] [address] .Urinalysis Microscopic (AO) on 05-26-2024 UA RBC None Seen Normal None Seen [facility] Comment on above: Performed By: #### U A, UAMICAO ####[address] [address] UA Squam Epithelial 0-5 Abnormal None Seen [facility] Comment on above: Performed By: #### U A, UAMICAO ####[address] [address] UA WBC 0-5 Abnormal None Seen [facility] Comment on above: Performed By: #### U LIU Hope ####[address] [address] BMPon 05-26-2024 BUN/Creatinine Ratio 18 ratio Normal 7-27 [facility] Comment on above: Performed By: #### M DW, MG, TROPHS, ANEU, PBNP, CBC, GFR, BMP, ADIFF #### [address] [address] Calcium [Mass/Vol] 9.5 mg/dL Normal 8.4-10.2 [facility] Comment on above: Performed By: #### M DW, MG, TROPHS, ANEU, PBNP, CBC, GFR, BMP, ADIFF #### [address] [address] Chloride [Moles/Vol] 102 mmol/L Normal 98-107 [facility] Comment on above: Performed By: #### M DW, MG, TROPHS, ANEU, PBNP, CBC, GFR, BMP, ADIFF #### [address] [address] CO2 [Moles/Vol] 27 mmol/L Normal 23-31 [facility] Comment on above: Performed By: #### M DW, MG, TROPHS, ANEU, PBNP, CBC, GFR, BMP, ADIFF #### [address] [address] Creatinine [Mass/Vol] 0.83 mg/dL Normal 0.55-1.02 [facility] Comment on above: Result Comment: Test ing performed on Siemens Dimension EXL analyzer using a modified kinetic Jaya technique. Performed By: #### M DW, MG, TROPHS, ANEU, PBNP, CBC, GFR, BMP, ADIFF #### [address] [address] Electrolyte Balance 9.0 mEq/L Normal 4.0-15.0 [facility] Comment on above: Performed By: #### M DW, MG, TROPHS, ANEU, PBNP, CBC, GFR, BMP, ADIFF #### [address] [address] Glucose [Mass/Vol] 268 mg/dL High 80-115 [facility] Comment on above: Performed By: #### M DW, MG, TROPHS, ANEU, PBNP, CBC, GFR, BMP, ADIFF #### [address] [address] Potassium [Moles/Vol] 3.6 mmol/L Normal 3.5-5.1 [facility] Comment on above: Performed By: #### M DW, MG, TROPHS, ANEU, PBNP, CBC, GFR, BMP, ADIFF #### [address] [address] Sodium [Moles/Vol] 138 mmol/L Normal 136-145 [facility] Comment on above: Performed By: #### M DW, MG, TROPHS, ANEU, PBNP, CBC, GFR, BMP, ADIFF #### [address] [address] Urea nitrogen [Mass/Vol] 15 mg/dL Normal 7-18 [facility] Comment on above: Performed By: #### M DW, MG, TROPHS, ANEU, PBNP, CBC, GFR, BMP, ADIFF #### [address] [address] CBCon 05-26-2024 Erythrocyte distribution width (RBC) [Ratio] 21.0 % High 11.5-15.5 [facility] Comment on above: Performed By: #### M DW, MG, TROPHS, ANEU, PBNP, CBC, GFR, BMP, ADIFF #### [address] [address] Hematocrit (Bld) [Volume fraction] 39.8 % Normal 34.0-46.0 [facility] Comment on above: Performed By: #### M DW, MG, TROPHS, ANEU, PBNP, CBC, GFR, BMP, ADIFF #### [address] [address] Hgb 12.8 G/dL Normal 12.0-16.0 [facility] Comment on above: Performed By: #### M DW, MG, TROPHS, ANEU, PBNP, CBC, GFR, BMP, ADIFF #### [address] [address] MCH (RBC) [Entitic mass] 25.7 pg Low 27.0-33.0 [facility] Comment on above: Performed By: #### M DW, MG, TROPHS, ANEU, PBNP, CBC, GFR, BMP, ADIFF #### [place] [address] MCHC 32.1 G/dL Normal 32.0-36.0 [facility] Comment on above: Performed By: #### M DW, MG, TROPHS, ANEU, PBNP, CBC, GFR, BMP, ADIFF #### [place] [address] MCV (RBC) [Entitic vol] 80.2 fL Normal 80.0-99.0 [facility] Comment on above: Performed By: #### M DW, MG, TROPHS, ANEU, PBNP, CBC, GFR, BMP, ADIFF #### [address] [address] Platelet 179 10 3/mcL Normal 150-450 [facility] Comment on above: Performed By: #### M DW, MG, TROPHS, ANEU, PBNP, CBC, GFR, BMP, ADIFF #### [address] [address] Platelet mean volume (Bld) [Entitic vol] 8.6 fL Normal 6.6-10.5 [facility] Comment on above: Performed By: #### M DW, MG, TROPHS, ANEU, PBNP, CBC, GFR, BMP, ADIFF #### [place] [address] RBC 4.96 10 6/mcL Normal 4.10-5.30 [facility] Comment on above: Performed By: #### M DW, MG, TROPHS, ANEU, PBNP, CBC, GFR, BMP, ADIFF #### [place] [address] [place], [place] [address] WBC 8.0 10 3/mcL Normal 4.5-10.8 [facility] Comment on above: Performed By: #### M DW, MG, TROPHS, ANEU, PBNP, CBC, GFR, BMP, ADIFF #### [place] [address] [place], [place] [address] CT HEAD OR BRAIN W/O CONTRAS Ton [...] 9:29:37 PM Ordering Provider: GAUTAM ADAM Normal [facility] MGon 05-26-2024 Magnesium [Mass/Vol] 1.5 mg/dL Low 1.8-2.4 [facility] Comment on above: Performed By: #### M DW, MG, TROPHS, ANEU, PBNP, CBC, GFR, BMP, ADIFF #### [address] [address] PBNPon 05-26-2024 Natriuretic peptide B (Bld) [Mass/Vol] 80 pg/mL Normal 0-125 [facility] Comment on above: Result Comment: NT-p roBNP results of less than 300 pg/mL effectively rules out acute congestive heart failure with 99% negative predictive value. Performed By: #### M DW, MG, TROPHS, ANEU, PBNP, CBC, GFR, BMP, ADIFF #### [address] [address] TROPHSon 05-26-2024 High Sensitivity Troponin I 74 ng/L High 0-51 [facility] Comment on above: Result Comment: High Sensitive Troponin I Reference Ranges: Female: 0-51 ng/L Male: 0-76 ng/L Testing performed on Dimension [employer] using a homogeneous sandwich chemiluminescent immunoassay based on [employer] technology. Performed By: #### T RAVINDER ####[place] [phone] High Sensitivity Troponin I 81 ng/L High 0-51 [facility] Comment on above: Result Comment: High Sensitive Troponin I Reference Ranges: Female: 0-51 ng/L Male: 0-76 ng/L Testing performed on Dimension EXL using a homogeneous sandwich chemiluminescent immunoassay based on [employer] technology. Performed By: #### M DW, MG, TROPHS, ANEU, PBNP, CBC, GFR, BMP, ADIFF #### [address] [address] UAon 05-26-2024 Color (U) Yellow Normal [facility] Comment on above: Performed By: #### U A, UAMICAO ####[place] [address] [address] Glucose (U) [Mass/Vol] Negative Normal Negative [facility] Comment on above: Performed By: #### U A, UAMICAO ####[place] [address] [address] Ketones Ql (U) Negative Normal Negative [facility] Comment on above: Performed By: #### U A, UAMICAO ####[place] [address] [place] [address] UA Appear Clear Normal Clear [facility] Comment on above: Performed By: #### U A, UAMICAO ####[place] [address] [place] [address] UA Blood Negative Normal Negative [facility] Comment on above: Performed By: #### U A, UAMICAO ####[place] [address] [place] [address] UA Leuk Est Small Abnormal Negative [facility] Comment on above: Performed By: #### U A, UAMICAO ####[place] [address] [place] [address] UA Nitrite Negative Normal Negative [facility] Comment on above: Performed By: #### U A, UAMICAO ####[place] [address] [place] [address] UA pH 6.0 Normal 5.0 - 8.0 [facility] Comment on above: Performed By: #### U A, UAMICAO ####[place] [address] [place] [address] UA Protein Negative Normal Negative [facility] Comment on above: Performed By: #### U A, UAMICAO ####[place] [address] [place] [address] UA Spec Grav 1.025 Normal 1.015-1.025 [facility] Comment on above: Performed By: #### U A, UAMICAO ####[place] [address] [place] [address] UA Specimen Type Clean Catch Normal [facility] Comment on above: Performed By: #### U A, UAMICAO ####[place] [address] [place] [address] UA Urobilinogen 0.2 E.U./dL Normal 0.2-1.0 [facility] Comment on above: Performed By: #### U A, UAMICAO ####[place] [address] [place], [place] [address] Urobilinogen (U) [Mass/Vol] Negative Normal Negative [facility] Comment on above: Performed By: #### LIU Rodriguez ####[place] [address] [place], [place] [address] XR CHEST 1 VIEWon 05-26-2024 XR CHEST [...] 9:32:39 PM Ordering Provider: GAUTAM ADAM Normal [facility] Lower GI hemoglobin IA Ql (S tl)Ordered By: Andressa Haney on 05-03-2024 Stool Occult Blood (MIGDALIA) [facility] Stool Occult Blood iFOBon STOB Normal [facility] Comment on above: Performed By: #### M 100.7900 ####[facility] [address] [place], [address] Stool gastrointestinal hemog lobin detection by immunologic methodOrdered By: Andressa Haney on 05-03-2024 Lower GI hemoglobin IA Ql (Stl) [facility] Gastroenterology Visit Repor ton 04-30-2024 Gastroenterology Visit Report Normal [facility] Bedside Glucoseon 04-15-2024 FINGERSTICK GLU 122 mg/dL High 74-106 [facility] Comment on above: Result Comment: DILIA GEMENT OF PATIENT CARE PER NURSING PROTOCOL Performed By: #### L 501.080 ####[facility] [address] [place], [place], [address] Colonoscopy Reporton 025 Colonoscopy Report Normal [facility] EGD Reporton 04-15-2024 EGD Report Normal [facility] Glucose measurement at [facility] deOrdered By: Ken Xie on 04-15-2024 Bedside Glucose (Misc Panel) 122 mg/dL High 74-106 [facility] Comment on above: MANAGEMENT OF PATIEN T CARE PER NURSING PROTOCOL Glucose [Mass/Vol] 122 mg/dL High 74-106 [facility] Comment on above: MANAGEMENT OF PATIEN T CARE PER NURSING PROTOCOL H Pylori (initial)on 025 H Pylori (initial) Normal [facility] Comment on above: Performed By: #### P H.PYLORI ####[facility] [address] [place], [place], [address] MR/POSTOP.ANEon 04-15-2024 MR/POSTOP.ANE Normal [facility] MR/[id number] 04-15-2024 MR/POSTOPAN2 Normal [facility] Surgery Specimen Level Naina 04-15-2024 Surgery Specimen Level IV Normal [facility] Comment on above: Performed By: #### P SUIV ####[facility] [address] [place], [place], [address] MR/PAT.ANEon 04-12-2024 MR/PAT.ANE Normal [facility] CBC W Auto Differential pane l (Bld)on 04-11-2024 Basophils (Bld) [#/Vol] 0.03 10*3/uL [facility] Basophils/100 WBC (Bld) 0.4 % C [facility] Differential cell count method Nom (Bld) Auto [facility] Eosinophils (Bld) [#/Vol] 0.23 10*3/uL [facility] Eosinophils/100 WBC (Bld) 3.2 % [facility] Erythrocyte distribution width (RBC) [Ratio] 19.3 % High 11.5 - 15.0 % [facility] Hematocrit (Bld) [Volume fraction] 36.9 % 36.0 - 46.0 % [facility] Hemoglobin (Bld) [Mass/Vol] 10.9 g/dL Low 11.5 - 15.5 g/dL [facility] Immature granulocytes (Bld) [#/Vol] 0.03 10*3/uL [facility] Immature granulocytes/100 WBC (Bld) 0.4 % [facility] Interpretation and review of laboratory results Abnormal [facility] Lymphocytes (Bld) [#/Vol] 2.65 10*3/uL [facility] Lymphocytes/100 WBC (Bld) 36.6 % [facility] MCH (RBC) [Entitic mass] 24.8 pg Low 26.0 - 34.0 pg [facility] MCHC (RBC) [Mass/Vol] 29.5 g/dL Low 30.5 - 36.0 g/dL [facility] MCV (RBC) [Entitic vol] 83.9 fL 80.0 - 100.0 fL [facility] Monocytes (Bld) [#/Vol] 0.42 10*3/uL [facility] Monocytes/100 WBC (Bld) 5.8 % [facility] Neutrophils (Bld) [#/Vol] 3.89 10*3/uL [facility] Neutrophils/100 WBC (Bld) 53.6 % [facility] Nucleated RBC (Bld) [#/Vol] [facility] Nucleated RBC/100 WBC (Bld) [Ratio] 0.0 % /100 WBC [facility] Platelet mean volume (Bld) [Entitic vol] 10.1 fL 9.0 - 12.7 fL [facility] Platelets (Bld) [#/Vol] 315 10*3/uL [facility] RBC (Bld) [#/Vol] 4.40 10*6/uL 3.90 - 5.2 0 m/uL [facility] WBC (Bld) [#/Vol] 7.25 10*3/uL [facility] Basophils (Bld) [#/Vol] 0.03 10*3/uL Normal <0.11 [facility] Comment on above: Order Comment: Speci men Type: BLOOD SPECIMENOrdering Facility: [facility] Address: [address] [place] [address] Performed By: #### 5 7021-8 ####[facility]ORYCLIA [id number] [address] STATES [facility] Basophils/100 WBC (Bld) 0.4 % Normal A [facility] Comment on above: Order Comment: Speci men Type: BLOOD SPECIMENOrdering Facility: [facility] Address: [address] [place] [address] Performed By: #### 5 7021-8 ####[facility]ORYCLIA [id number] [address] OF [facility] Differential cell count method Nom (Bld) Auto Normal [facility] Comment on above: Order Comment: Speci men Type: BLOOD SPECIMENOrdering Facility: [facility] Address: [address] [place] [address] Performed By: #### 5 7021-8 ####[facility]ATORYCLIA [id number] [address] STATES OF [facility] Eosinophils (Bld) [#/Vol] 0.23 10*3/uL Normal <0.46 [facility] Comment on above: Order Comment: Speci men Type: BLOOD SPECIMENOrdering Facility: [facility] Address: [address] [place] [address] Performed By: #### 5 7021-8 ####[facility]ATORYCLIA [id number] [address] Eosinophils/100 WBC (Bld) 3.2 % Normal [facility] Comment on above: Order Comment: Speci men Type: BLOOD SPECIMENOrdering Facility: [facility] Address: [address] [place] [address] Performed By: #### 5 7021-8 ####[facility]ATORYCLIA [id number] [address] Erythrocyte distribution width (RBC) [Ratio] 19.3 % High 11.5-15.0 [facility] Comment on above: Order Comment: Speci men Type: BLOOD SPECIMENOrdering Facility: [facility] Address: [address] [place] [address] Performed By: #### 5 7021-8 ####[facility] LABORATORYCLIA [id number] [address] [place] Hematocrit (Bld) [Volume fraction] 36.9 % Normal 36.0-46.0 [facility] Comment on above: Order Comment: Speci men Type: BLOOD SPECIMENOrdering Facility: [facility] Address: [address] [place] [address] Performed By: #### 5 7021-8 ####[facility]ORATORYCLIA [id number] [address] [place] Hemoglobin (Bld) [Mass/Vol] 10.9 g/dL Low 11.5-15.5 [facility] Comment on above: Order Comment: Speci men Type: BLOOD SPECIMENOrdering Facility: [facility] Address: [address] [place] [address] Performed By: #### 5 7021-8 ####[facility]ORATORYCLIA [id number] [address] [place] Immature granulocytes (Bld) [#/Vol] 0.03 10*3/uL Normal <0.10 [facility] Comment on above: Order Comment: Speci men Type: BLOOD SPECIMENOrdering Facility: [facility] Address: [address] [place] [address] Performed By: #### 5 7021-8 ####[facility]ORATORYCLIA [id number] [address] [place] Immature granulocytes/100 WBC (Bld) 0.4 % Normal [facility] Comment on above: Order Comment: Speci men Type: BLOOD SPECIMENOrdering Facility: [facility] Address: [address] [place] [address] Performed By: #### 5 7021-8 ####[facility]ORATORYCLIA [id number] [address] [place] Lymphocytes (Bld) [#/Vol] 2.65 10*3/uL Normal 1.00-4.00 [facility] Comment on above: Order Comment: Speci men Type: BLOOD SPECIMENOrdering Facility: [facility] Address: [address] [place] [address] Performed By: #### 5 7021-8 ####[facility] LABORATORYCLIA [id number] [address] Lymphocytes/100 WBC (Bld) 36.6 % Normal [facility] Comment on above: Order Comment: Speci men Type: BLOOD SPECIMENOrdering Facility: [facility] Address: [address] [place] [address] Performed By: #### 5 7021-8 ####[facility]ORATORYCLIA [id number] [address] MCH (RBC) [Entitic mass] 24.8 pg Low 26.0-34.0 [facility] Comment on above: Order Comment: Speci men Type: BLOOD SPECIMENOrdering Facility: [facility] Address: [address] [place] [address] Performed By: #### 5 7021-8 ####[facility] LABORATORYCLIA [id number] [address] MCHC (RBC) [Mass/Vol] 29.5 g/dL Low 30.5-36.0 [facility] Comment on above: Order Comment: Speci men Type: BLOOD SPECIMENOrdering Facility: [facility] Address: [address] [place] [address] Performed By: #### 5 7021-8 ####[facility]ORATORYCLIA [id number] [address] MCV (RBC) [Entitic vol] 83.9 fL Normal 80.0-100.0 [facility] Comment on above: Order Comment: Speci men Type: BLOOD SPECIMENOrdering Facility: [facility] Address: [address] [place] [address] Performed By: #### 5 7021-8 ####[facility] LABORATORYCLIA [id number] [address] [place] Monocytes (Bld) [#/Vol] 0.42 10*3/uL Normal <0.87 [facility] Comment on above: Order Comment: Speci men Type: BLOOD SPECIMENOrdering Facility: [facility] Address: [address] [place] [address] Performed By: #### 5 7021-8 ####[facility] LABORATORYCLIA [id number] [address] [place] Monocytes/100 WBC (Bld) 5.8 % Normal [facility] Comment on above: Order Comment: Speci men Type: BLOOD SPECIMENOrdering Facility: [facility] Address: [address] [place] [address] Performed By: #### 5 7021-8 ####[facility] LABORATORYCLIA [id number] [address] [place] Neutrophils (Bld) [#/Vol] 3.89 10*3/uL Normal 1.45-7.50 [facility] Comment on above: Order Comment: Speci men Type: BLOOD SPECIMENOrdering Facility: [facility] Address: [address] [place] [address] Performed By: #### 5 7021-8 ####[facility] LABORATORYCLIA [id number] [address] [place] Neutrophils/100 WBC (Bld) 53.6 % Normal [facility] Comment on above: Order Comment: Speci men Type: BLOOD SPECIMENOrdering Facility: [facility] Address: [address] [place] [address] Performed By: #### 5 7021-8 ####[facility] LABORATORYCLIA [id number] [place] [address] [place] Nucleated RBC (Bld) [#/Vol] 10*3/uL Normal <0.01 [facility] Comment on above: Order Comment: Speci men Type: BLOOD SPECIMENOrdering Facility: [facility] Address: [address] [place] [address] Performed By: #### 5 7021-8 ####[facility] LABORATORYCLIA [id number] [address] [place] Nucleated RBC/100 WBC (Bld) [Ratio] 0.0 /100 WBC Normal [facility] Comment on above: Order Comment: Speci men Type: BLOOD SPECIMENOrdering Facility: [facility] Address: [address] [place] [address] Performed By: #### 5 7021-8 ####[facility] LABORATORYCLIA [id number] [address] [place] Platelet mean volume (Bld) [Entitic vol] 10.1 fL Normal 9.0-12.7 [facility] Comment on above: Order Comment: Speci men Type: BLOOD SPECIMENOrdering Facility: [facility] Address: [address] [place] [address] Performed By: #### 5 7021-8 ####[facility] LABORATORYCLIA [id number] [address] [place] Platelets (Bld) [#/Vol] 315 10*3/uL Normal 150-400 [facility] Comment on above: Order Comment: Speci men Type: BLOOD SPECIMENOrdering Facility: [facility] Address: [address] [place] [address] Performed By: #### 5 7021-8 ####[facility] LABORATORYCLIA [id number] [place] [address] [place] RBC (Bld) [#/Vol] 4.40 10*6/uL Normal 3.90-5.20 [facility] Comment on above: Order Comment: Speci men Type: BLOOD SPECIMENOrdering Facility: [facility] Address: [address] [place] [address] Performed By: #### 5 7021-8 ####[facility] LABORATORYCLIA [id number] [address] [place] WBC (Bld) [#/Vol] 7.25 10*3/uL Normal 3.70-11.00 [facility] Comment on above: Order Comment: Speci men Type: BLOOD SPECIMENOrdering Facility: [facility] Address: [address] [place] [address] Performed By: #### 5 7021-8 ####[facility] LABORATORYCLIA [id number] [place] [address] [place] [facility] Comprehensive metabolic 2000 panelon 04-11-2024 Albumin [Mass/Vol] 4.1 g/dL 3.9 - 4.9 g/dL [facility] ALP [Catalytic activity/Vol] 88 U/L 34 - 123 U/L [facility] ALT [Catalytic activity/Vol] 19 U/L 7 - 38 U/L [facility] Anion gap [Moles/Vol] 8 mmol/L 8 - 15 mmol/L [facility] AST [Catalytic activity/Vol] 13 U/L 13 - 35 U/L [facility] Bilirubin [Mass/Vol] 0.4 mg/dL 0.2 - 1 .3 mg/dL [facility] Comment on above: Use of this assay is not recommended for patients undergoing treatment with eltrombopag due to the potential for falsely elevated results. Calcium [Mass/Vol] 9.5 mg/dL 8.5 - 10. 2 mg/dL [facility] Chloride [Moles/Vol] 106 mmol/L 98 - 10 7 mmol/L [facility] CO2 [Moles/Vol] 25 mmol/L 22 - 30 mmol/L [facility] Creatinine [Mass/Vol] 0.54 mg/dL Low 0.58 - 0.96 mg/dL [facility] Comment on above: Use of this assay is not recommended for patients undergoing treatment with phenindione, due to the potential for falsely depressed results. GFR/1.73 sq M.predicted among non-blacks MDRD (S/P/Bld) [Vol rate/Area] 104 mL/min/{1.73_m2} - PINF [facility] Comment on above: Estimated Glomerular Filtration Rate [...] 148 mg/dL High 74 - 99 mg/dL [facility] Comment on above: The [place] Diabete s Association (ADA) provides guidance for [...] Standards of Medical Care in Diabetes 2016, [place] Diabetes Association. Diabetes Care. 2016.39(Suppl 1). Interpretation and review of laboratory results Abnormal [facility] Potassium [Moles/Vol] 3.5 mmol/L Low 3.7 - 5.1 mmol/L [facility] Protein [Mass/Vol] 7.1 g/dL 6.3 - 8.0 g/dL [facility] Sodium [Moles/Vol] 139 mmol/L 136 - 144 mmol/L [facility] Urea nitrogen [Mass/Vol] 12 mg/dL 7 - 21 mg/dL [facility] Albumin [Mass/Vol] 4.1 g/dL Normal 3.9-4.9 [facility] Comment on above: Order Comment: Speci men Type: BLOOD SPECIMENOrdering Facility: [facility] Address: [address] [place] [address] Performed By: #### 2 4323-8 ####[facility] LABCLIA [id number] [place] [address] [place] [facility] ALP [Catalytic activity/Vol] 88 U/L Normal 34-123 [facility] Comment on above: Order Comment: Speci men Type: BLOOD SPECIMENOrdering Facility: [facility] Address: [address] [place] [address] Performed By: #### 2 4323-8 ####[facility] LABCLIA [id number] [place] [address] [place] ALT [Catalytic activity/Vol] 19 U/L Normal 7-38 [facility] Comment on above: Order Comment: Speci men Type: BLOOD SPECIMENOrdering Facility: [facility] Address: [address] [place] [address] Performed By: #### 2 4323-8 ####[facility] LABCLIA [id number] [place] [address] [place] Anion gap [Moles/Vol] 8 mmol/L Normal 8-15 [facility] Comment on above: Order Comment: Speci men Type: BLOOD SPECIMENOrdering Facility: [facility] Address: [address] [place] [address] Performed By: #### 2 4323-8 ####[facility] LABCLIA [id number] [place] [address] [place] AST [Catalytic activity/Vol] 13 U/L Normal 13-35 [facility] Comment on above: Order Comment: Speci men Type: BLOOD SPECIMENOrdering Facility: [facility] Address: [address] [place] [address] Performed By: #### 2 4323-8 ####[facility] LABCLIA [id number] [place] [address] [place] Bilirubin [Mass/Vol] 0.4 mg/dL Normal 0.2-1.3 [facility] Comment on above: Order Comment: Speci men Type: BLOOD SPECIMENOrdering Facility: [facility] Address: [address] [place] [address] Result Comment: Use of this assay is not recommended for patients undergoing treatment with eltrombopag due to the potential for falsely elevated results. Performed By: #### 2 4323-8 ####[facility] LABCLIA [id number] [place] [id number] [place] Calcium [Mass/Vol] 9.5 mg/dL Normal 8.5-10.2 [facility] Comment on above: Order Comment: Speci men Type: BLOOD SPECIMENOrdering Facility: [facility] Address: [address] [place] [address] Performed By: #### 2 4323-8 ####[facility] LABCLIA [id number] [place] [address] [place] Chloride [Moles/Vol] 106 mmol/L Normal 98-107 [facility] Comment on above: Order Comment: Speci men Type: BLOOD SPECIMENOrdering Facility: [facility] Address: [address] [place] [address] Performed By: #### 2 4323-8 ####[facility] LABCLIA [id number] [address] [place] CO2 [Moles/Vol] 25 mmol/L Normal 22-30 [facility] Comment on above: Order Comment: Speci men Type: BLOOD SPECIMENOrdering Facility: [facility] Address: [address] [place] [address] Performed By: #### 2 4323-8 ####[facility] LABIA [id number] [address] Creatinine [Mass/Vol] 0.54 mg/dL Low 0.58-0.96 [facility] Comment on above: Order Comment: Speci men Type: BLOOD SPECIMENOrdering Facility: [facility] Address: [address] [place] [address] Result Comment: Use of this assay is not recommended for patients undergoing treatment with phenindione, due to the potential for falsely depressed results. Performed By: #### 2 4323-8 ####[facility] LABIA [id number] [address] Creatinine and Glomerular filtration rate.predicted panel (S/P/Bld) 104 mL/min/1.73m??? Normal >=60 [facility] Comment on above: Order Comment: Speci men Type: BLOOD SPECIMENOrdering Facility: [facility] Address: [address] [place] [address] Result Comment: Glynn mated Glomerular Filtration Rate [...] actual GFR. Performed By: #### 2 4323-8 ####[facility] LABIA [id number] [place] [address] [place] Glucose [Mass/Vol] 148 mg/dL High 74-99 [facility] Comment on above: Order Comment: Matt patricio Type: BLOOD SPECIMENOrdering Facility: [facility] Address: [address] [place] [address] Result Comment: The [place] Diabetes Association (ADA) provides guidance for cutoff [...] Standards of Medical Care in Diabetes 2016, [place] Diabetes Association. Diabetes Care. 2016.39(Suppl 1). Performed By: #### 2 4323-8 ####[facility] LABIA [id number] [place] [address] [place] Potassium [Moles/Vol] 3.5 mmol/L Low 3.7-5.1 [facility] Comment on above: Order Comment: Matt patricio Type: BLOOD SPECIMENOrdering Facility: [facility] Address: [address] [place] [address] Performed By: #### 2 4323-8 ####[facility] LABIA [id number] [place] [id number] [place] Protein [Mass/Vol] 7.1 g/dL Normal 6.3-8.0 [facility] Comment on above: Order Comment: Matt patricio Type: BLOOD SPECIMENOrdering Facility: [facility] Address: [address] [place] [address] Performed By: #### 2 4323-8 ####[facility] LABCLIA [id number] [place] [address] [place] Sodium [Moles/Vol] 139 mmol/L Normal 136-144 [facility] Comment on above: Order Comment: Speci men Type: BLOOD SPECIMENOrdering Facility: [facility] Address: [address] [place], [place] [address] Performed By: #### 2 4323-8 ####[facility] LABCLIA [id number] [place] [address] [place] Urea nitrogen [Mass/Vol] 12 mg/dL Normal 7-21 [facility] Comment on above: Order Comment: Speci men Type: BLOOD SPECIMENOrdering Facility: [facility] Address: [address] [place], [place] [address] Performed By: #### 2 4323-8 ####[facility] LABCLIA [id number] [place] [id number] [place] L501.4020on 03-11-2024 TROPONIN-I HS 412 pg/mL Invalid Interpretation Code 3.0-54.0 [facility] Comment on above: Order Comment: 'TROP ' Serial specimen #1, #2 or #3: 3 Result Comment: Crit ical Result(s) Called at: 04:15:30 03/11/2024 by: Karin. to [facility]. Results read back by same. Please Note: New Test Units and Gender Specific Reference Ranges. For more information see Policy Stat Procedure [place] High Sensitivity Troponin (TNIH) and attachments. Performed By: #### L 501.4020 ####[facility] [address] [place], [place], [address] Troponin IOrdered By: Osmani Marie on 03-11-2024 Troponin I High Sensitivity 412 pg/mL High 3.0-54.0 [facility] Comment on above: Critical Result(s) C alled at: 04:15:30 03/11/2024 by: Pj Oswald. to [facility]. Results read back by same. Please Note: New Test Units and Gender Specific Reference Ranges. For more information see Policy Stat Procedure [place] High Sensitivity Troponin (TNIH) and attachments. 12 Lead EKGon 03-10-2024 12 Lead EKG Normal [facility] Absolute neutrophil countOrd ered By: Paco Sellers on 03-10-2024 Neutrophils (Bld) [#/Vol] 8.0 10*3/uL High 2.0-7.7 [facility] Basic Metabolic Profile (BMP )on 03-10-2024 BUN/CRE 13.4 RATIO Normal 10-20 [facility] Comment on above: Order Comment: 1Y Performed By: #### L 500.2500, L100.0100, L501.5425 ####[facility] [address] [place], [address] CA,Total 9.3 mg/dL Normal 8.5-10.1 [facility] Comment on above: Order Comment: 1Y Performed By: #### L 500.2500, L100.0100, L501.5425 ####[facility] [address] [place], [address] Chloride [Moles/Vol] 103 mmol/L Normal 98-107 [facility] Comment on above: Order Comment: 1Y Performed By: #### L 500.2500, L100.0100, L501.5425 ####[facility] [address] [place], [address] CO2 [Moles/Vol] 26.0 mmol/L Normal 21.0-32.0 [facility] Comment on above: Order Comment: 1Y Performed By: #### L 500.2500, L100.0100, L501.5425 ####[facility] [address] [place], [address] Creatinine [Mass/Vol] 0.67 mg/dL Normal 0.55-1.02 [facility] Comment on above: Order Comment: 1Y Result Comment: The validity of the calculated GFR GFRAA in patients over70 years has not been determined. Clinical correlation isessential. Performed By: #### L 500.2500, L100.0100, L501.5425 ####[facility] [address] [place], [address] ECRCL 84.43 ml/min Normal [facility] Comment on above: Order Comment: 1Y Performed By: #### L 500.2500, L100.0100, L501.5425 ####[facility] [address] [place], [address] EST GFR - AA 114 mL/min Normal >60 [facility] Comment on above: Order Comment: 1Y Result Comment: Afri can [place] GFR Calc Performed By: #### L 500.2500, L100.0100, L501.5425 ####[facility] [address] [place], [address] GAP 8 Normal 5-15 [facility] Comment on above: Order Comment: 1Y Performed By: #### L 500.2500, L100.0100, L501.5425 ####[facility] [address] [place], [address] GFR/1.73 sq M.predicted among non-blacks MDRD (S/P/Bld) [Vol rate/Area] 94 mL/min/{1.73_m2} Normal >60 [facility] Comment on above: Order Comment: 1Y Result Comment: Non- GFR Calc Performed By: #### L 500.2500, L100.0100, L501.5425 ####[facility] [address] [place], [address] Glucose [Mass/Vol] 349 mg/dL High 74-106 [facility] Comment on above: Order Comment: 1Y Result Comment: Gluc ose result greater than or equal to 200 mg/dLsuggests DIABETES MELLITUS per A.D.A. criteria. Performed By: #### L 500.2500, L100.0100, L501.5425 ####[facility] [address] [place], [address] Potassium [Moles/Vol] 3.4 mmol/L Low 3.5-5.1 [facility] Comment on above: Order Comment: 1Y Performed By: #### L 500.2500, L100.0100, L501.5425 ####[facility] [address] [place], [address] Sodium [Moles/Vol] 137 mmol/L Normal 136-145 [facility] Comment on above: Order Comment: 1Y Performed By: #### L 500.2500, L100.0100, L501.5425 ####[facility] [address] [place], [address] Urea nitrogen [Mass/Vol] 9 mg/dL Normal 7-18 [facility] Comment on above: Order Comment: 1Y Performed By: #### L 500.2500, L100.0100, L501.5425 ####[facility] [address] [place], [address] Basophil percentageOrdered B y: Paco Sellers on 03-10-2024 Basophils/100 WBC (Bld) 0.3 % 0-1 [facility] Blood urea nitrogen (BUN)/cr eatinine ratioOrdered By: Paco Sellers on 03-10-2024 Urea nitrogen/Creatinine [Mass ratio] 13.4 mg/mg 10-20 [facility] CBC W/Diff, Automatedon Absolute Lymph 1.59 X10 3/uL Normal 0.83-4.51 [facility] Comment on above: Performed By: #### L 500.2500, L100.0100, L501.5425 ####[facility] [address] [place], [address] Absolute Neut 8.0 X10 3/uL High 2.0-7.7 [facility] Comment on above: Performed By: #### L 500.2500, L100.0100, L501.5425 ####[facility] [address] [place], [address] Basophils/100 WBC (Bld) 0.3 % Normal 0-1 [facility] Comment on above: Performed By: #### L 500.2500, L100.0100, L501.5425 ####[facility] [address] [place], [address] Eosinophils/100 WBC (Bld) 1.1 % Normal 0-5 [facility] Comment on above: Performed By: #### L 500.2500, L100.0100, L501.5425 ####[facility] [address] [place], [address] Erythrocyte distribution width (RBC) [Ratio] 17.8 % High 11.6-14.6 [facility] Comment on above: Performed By: #### L 500.2500, L100.0100, L501.5425 ####[facility] [address] [place], [address] Hematocrit (Bld) [Volume fraction] 33.5 % Low 37-47 [facility] Comment on above: Performed By: #### L 500.2500, L100.0100, L501.5425 ####[facility] [address] [place], [address] Hemoglobin (Bld) [Mass/Vol] 10.2 g/dL Low 12.0-15.0 [facility] Comment on above: Performed By: #### L 500.2500, L100.0100, L501.5425 ####[facility] [address] [place], [address] IG% 1.100 High 0.0-0.9 [facility] Comment on above: Result Comment: IG% - Immature Granulocytes (promyelocytes, myelocytes andmetamyelocytes) > 1% indicates that a LEFT SHIFT is Present. Performed By: #### L 500.2500, L100.0100, L501.5425 ####[facility] [address] [place], [address] Lymphocytes/100 WBC (Bld) 14.8 % Low 19-41 [facility] Comment on above: Performed By: #### L 500.2500, L100.0100, L501.5425 ####[facility] [address] [place], [address] MCH (RBC) [Entitic mass] 24.2 pg Low 27.0-32.0 [facility] Comment on above: Performed By: #### L 500.2500, L100.0100, L501.5425 ####[facility] [address] [place], [address] MCHC (RBC) [Mass/Vol] 30.4 g/dL Low 32-36 [facility] Comment on above: Performed By: #### L 500.2500, L100.0100, L501.5425 ####[facility] [address] [place], [address] MCV (RBC) [Entitic vol] 79.4 fL Low 81-99 [facility] Comment on above: Performed By: #### L 500.2500, L100.0100, L501.5425 ####[facility] [address] [place], [address] Monocytes/100 WBC (Bld) 8.6 % Normal 0-10 [facility] Comment on above: Performed By: #### L 500.2500, L100.0100, L501.5425 ####[facility] [address] [place], [address] Neutrophils/100 WBC (Bld) 74.1 % High 47-70 [facility] Comment on above: Performed By: #### L 500.2500, L100.0100, L501.5425 ####[facility] [address] [place], [address] Nucleated RBC (Bld) [#/Vol] 0 10*3/uL Normal 0-5 [facility] Comment on above: Performed By: #### L 500.2500, L100.0100, L501.5425 ####[facility] [address] [place], [address] Platelet mean volume (Bld) [Entitic vol] 9.3 fL Normal 6.2-12.0 [facility] Comment on above: Performed By: #### L 500.2500, L100.0100, L501.5425 ####[facility] [address] [place], [address] Platelets (Bld) [#/Vol] 311 10*3/uL Normal 150-450 [facility] Comment on above: Performed By: #### L 500.2500, L100.0100, L501.5425 ####[facility] [address] [place], [address] RBC (Bld) [#/Vol] 4.22 10*6/uL Normal 4.2-5.[address] [facility] Comment on above: Performed By: #### L 500.2500, L100.0100, L501.5425 ####[facility] [address] [place], [address] RDW SD 51.0 fl High 35.1-43.9 [facility] Comment on above: Performed By: #### L 500.2500, L100.0100, L501.5425 ####[facility] [address] [place], [address] WBC (Bld) [#/Vol] 10.8 10*3/uL Normal 4.4-11.[address] [facility] Comment on above: Performed By: #### L 500.2500, L100.0100, L501.5425 ####[facility] [address] [place], [address] CTA Chest W/WO Contraston CTA Chest W/WO Contrast Normal [facility] Carbon dioxide measurementOr dered By: Paco Sellers on 03-10-2024 CO2 [Moles/Vol] 26.0 mmol/L 21.0-32.0 [facility] Chest PA and Lateralon 03-10 Chest PA and Lateral Normal [facility] Chloride measurementOrdered By: Paco Sellers on 03-10-2024 Chloride [Moles/Vol] 103 mmol/L 98-107 [facility] Emergency Department Summary on 03-10-2024 Emergency Department Summary Normal [facility] Eosinophil percentageOrdered By: Paco Sellers on 03-10-2024 Eosinophils/100 WBC (Bld) 1.1 % 0-5 [facility] Erythrocyte distribution wid th ratioOrdered By: Paco Sellers on 03-10-2024 Erythrocyte distribution width (RBC) [Ratio] 17.8 % High 11.6-14.6 [facility] Erythrocyte distribution wid th standard deviationOrdered By: Paco Sellers on 03-10-2024 Erythrocyte distribution width (RBC) [Entitic vol] 51.0 fL High 35.1-43.9 [facility] Estimated glomerular filtrat ion rate (GFR) AmericanOrdered By: Paco Sellers on 03-10-2024 Estimated GFR (MDRD) Amer 114 mL/min >60 [facility] Comment on above: GFR Calc Estimation of creatinine debbie aranceOrdered By: Paco Sellers on 03-10-2024 Estimated Creatinine Clearance Calc 84.43 ml/min [facility] Glomerular filtration rate ( GFR) estimationOrdered By: Paco Sellers on 03-10-2024 Estimated GFR (MDRD) Non-Af Amer 94 mL/min >60 [facility] Comment on above: Non- GFR Calc Glucose measurementOrdered B y: Paco Sellers on 03-10-2024 Glucose [Mass/Vol] 349 mg/dL High 74-106 [facility] Comment on above: Glucose result great er than or equal to 200 mg/dLsuggests DIABETES MELLITUS per A.D.A. criteria. Hematocrit Auto (Bld) [Volum e fraction]Ordered By: Paco Sellers on 03-10-2024 Hematocrit (Bld) [Volume fraction] 33.5 % Low 37-47 [facility] Hemoglobin measurementOrdere d By: Paco Sellers on 03-10-2024 Hemoglobin (Bld) [Mass/Vol] 10.2 g/dL Low 12.0-15.0 [facility] Immature granulocytes/100 WB C Auto (Bld)Ordered By: Paco Sellers on 03-10-2024 Immature granulocytes/100 WBC (Bld) 1.100 % High 0.0-0.9 [facility] Comment on above: IG% - Immature Granu locytes (promyelocytes, myelocytes and metamyelocytes) > 1% indicates that a LEFT SHIFT is Present. Influenza virus A and B and SARS-CoV-2 (COVID-19) and Respiratory syncytial virus RNAOrdered By: Paco Sellers on 03-10-2024 SARS-CoV-2 (COVID-19) RNA RAMIREZ+probe Ql (Unsp spec) SARS-CoV-2 (COVID 19 PCR) Abnormal [facility] L501.4020on 03-10-2024 TROPONIN-I HS 508 pg/mL Invalid Interpretation Code 3.0-54.0 [facility] Comment on above: Result Comment: Crit ical Result(s) Called at: 23:43:14 03/10/2024 by: NoahBurns. velasquez Rivera RN ED. Results read back by same. Please Note: New Test Units and Gender Specific Reference Ranges. For more information see Policy Stat Procedure [place] High Sensitivity Troponin (TNIH) and attachments. Performed By: #### L 501.4020 ####[facility] [address] [place], [address] L501.5425on 03-10-2024 TROPONIN-I HS 502 pg/mL Invalid Interpretation Code 3.0-54.0 [facility] Comment on above: Order Comment: 1Y Result Comment: Crit ical Result(s) Called at: 21:21:21 03/10/2024 by: BERNARDINO. Results read back by Samuel Salinas Please Note: New Test Units and Gender Specific Reference Ranges. For more information see Policy Stat Procedure [place] High Sensitivity Troponin (TNIH) and attachments. Performed By: #### L 500.2500, L100.0100, L501.5425 ####[facility] [address] [place], [place], [address] Lymphocytes Auto (Unsp spec) [#/Vol]Ordered By: Paco Sellers on 03-10-2024 Lymphocytes (Bld) [#/Vol] 1.59 10*3/uL 0.83-4.51 [facility] Lymphocytes/100 WBC Auto (Un sp spec)Ordered By: Paco Sellers on 03-10-2024 Lymphocytes/100 WBC (Bld) 14.8 % Low 19-41 [facility] M100.678on 03-10-2024 M100.678 Normal [facility] Comment on above: Performed By: #### M 100.678 ####[facility] [address] [place], [place], [address] MCV (mean corpuscular volume ) determinationOrdered By: Paco Sellers on 03-10-2024 MCV (RBC) [Entitic vol] 79.4 fL Low 81-99 [facility] Mean corpuscular hemoglobin (MCH) determinationOrdered By: Paco Sellers on 03-10-2024 MCH (RBC) [Entitic mass] 24.2 pg Low 27.0-32.0 [facility] Mean corpuscular hemoglobin concentration (MCHC) determinationOrdered By: Paco Sellers on 03-10-2024 MCHC (RBC) [Mass/Vol] 30.4 g/dL Low 32-36 [facility] Mean platelet volume determi nationOrdered By: Paco Sellers on 03-10-2024 Platelet mean volume (Bld) [Entitic vol] 9.3 fL 6.2-12.0 [facility] Monocyte percentageOrdered B y: Paco Sellers on 03-10-2024 Monocytes/100 WBC (Bld) 8.6 % 0-10 [facility] Neutrophil percentageOrdered By: Paco Sellers on 03-10-2024 Neutrophils/100 WBC (Bld) 74.1 % High 47-70 [facility] Nucleated red blood cell per centageOrdered By: Paco Sellers on 03-10-2024 Nucleated RBC/100 WBC (Bld) [Ratio] 0 % 0-5 [facility] Platelet countOrdered By: Nela Sellers on 03-10-2024 Platelets (Bld) [#/Vol] 311 10*3/uL 150-450 [facility] Potassium measurementOrdered By: Paco Sellers on 03-10-2024 Potassium [Moles/Vol] 3.4 mmol/L Low 3.5-5.1 [facility] RBC Auto (Bld) [#/Vol]Ordere d By: Paco Sellers on 03-10-2024 RBC (Bld) [#/Vol] 4.22 10*6/uL 4.2-5.[address] [facility] Serum anion gap measurementO rdered By: Paco Sellers on 03-10-2024 Anion gap [Moles/Vol] 8 mmol/L 5-15 [facility] Serum or plasma calcium aminta urement (mass/volume)Ordered By: Paco Sellers on 03-10-2024 Calcium [Mass/Vol] 9.3 mg/dL 8.5-10.1 [facility] Serum or plasma creatinine m easurement (mass/volume)Ordered By: Paco Sellers on 03-10-2024 Creatinine [Mass/Vol] 0.67 mg/dL 0.55-1.02 [facility] Comment on above: The validity of the calculated GFR & GFRAA in patients over 70 years has not been determined. Clinical correlation is essential. Serum or plasma urea nitroge n measurement (mass/volume)Ordered By: Paco Sellers on 03-10-2024 Urea nitrogen [Mass/Vol] 9 mg/dL 7-18 [facility] Sodium levelOrdered By: Paco Sellers on 03-10-2024 Sodium [Moles/Vol] 137 mmol/L 136-145 [facility] White blood cell (WBC) count Ordered By: Paco Sellers on 03-10-2024 WBC (Bld) [#/Vol] 10.8 10*3/uL 4.4-11.[address] [facility] Basic Metabolic Profile (BMP )on 02-26-2024 BUN/CRE 16.1 RATIO Normal 10-20 [facility] Comment on above: Performed By: #### L 500.2500 ####[facility] [address] [place], [address] CA,Total 9.7 mg/dL Normal 8.5-10.1 [facility] Comment on above: Performed By: #### L 500.2500 ####[facility] [address] [place], [address] Chloride [Moles/Vol] 106 mmol/L Normal 98-107 [facility] Comment on above: Performed By: #### L 500.2500 ####[facility] [address] [place], [address] CO2 [Moles/Vol] 27.0 mmol/L Normal 21.0-32.0 [facility] Comment on above: Performed By: #### L 500.2500 ####[facility] [address] [place], [address] Creatinine [Mass/Vol] 0.62 mg/dL Normal 0.55-1.02 [facility] Comment on above: Result Comment: The validity of the calculated GFR GFRAA in patients over70 years has not been determined. Clinical correlation isessential. Performed By: #### L 500.2500 ####[facility] [address] [place], [address] EST GFR - AA 125 mL/min Normal >60 [facility] Comment on above: Result Comment: Afri can Andorran GFR Calc Performed By: #### L 500.2500 ####[facility] [address] [place], [address] GAP 6 Normal 5-15 [facility] Comment on above: Performed By: #### L 500.2500 ####[facility] [address] [place], [address] GFR/1.73 sq M.predicted among non-blacks MDRD (S/P/Bld) [Vol rate/Area] 103 mL/min/{1.73_m2} Normal >60 [facility] Comment on above: Result Comment: Non- GFR Calc Performed By: #### L 500.2500 ####[facility] [address] [place], [address] Glucose [Mass/Vol] 152 mg/dL High 74-106 [facility] Comment on above: Result Comment: Fast ing Glucose result greater than or equal to 126 mg/dLsuggests DIABETES MELLITUS per A.D.A. criteria. Performed By: #### L 500.2500 ####[facility] [address] [place], [address] Potassium [Moles/Vol] 4.2 mmol/L Normal 3.5-5.1 [facility] Comment on above: Performed By: #### L 500.2500 ####[facility] [address] [place], [address] Sodium [Moles/Vol] 139 mmol/L Normal 136-145 [facility] Comment on above: Performed By: #### L 500.2500 ####[facility] [address] [place], [address] Urea nitrogen [Mass/Vol] 10 mg/dL Normal 7-18 [facility] Comment on above: Performed By: #### L 500.2500 ####[facility] [address] [place], [address] Blood urea nitrogen (BUN)/cr eatinine ratioOrdered By: Ana Rosa Oquendo on 02-26-2024 Urea nitrogen/Creatinine [Mass ratio] 16.1 mg/mg 10-20 [facility] Carbon dioxide measurementOr dered By: Ana Rosa Oquendo on 02-26-2024 CO2 [Moles/Vol] 27.0 mmol/L 21.0-32.0 [facility] Cardiology Visit Reporton Cardiology Visit Report Normal [facility] Chloride measurementOrdered By: Ana Rosa Oquendo on 02-26-2024 Chloride [Moles/Vol] 106 mmol/L 98-107 [facility] Estimated glomerular filtrat ion rate (GFR) AmericanOrdered By: Ana Rosa Oquendo on 02-26-2024 Estimated GFR (MDRD) Amer 125 mL/min >60 [facility] Comment on above: GFR Calc Glomerular filtration rate ( GFR) estimationOrdered By: Ana Rosa Oquendo on 02-26-2024 Estimated GFR (MDRD) Non-Af Amer 103 mL/min >60 [facility] Comment on above: Non- GFR Calc Glucose measurementOrdered B y: Ana Rosa Oquendo on 02-26-2024 Glucose [Mass/Vol] 152 mg/dL High 74-106 [facility] Comment on above: Fasting Glucose resu lt greater than or equal to 126 mg/dL suggests DIABETES MELLITUS per A.D.A. criteria. Potassium measurementOrdered By: Ana Rosa Oquendo on 02-26-2024 Potassium [Moles/Vol] 4.2 mmol/L 3.5-5.1 [facility] Serum anion gap measurementO rdered By: Ana Rosa Oquendo on 02-26-2024 Anion gap [Moles/Vol] 6 mmol/L 5-15 [facility] Serum or plasma calcium aminta urement (mass/volume)Ordered By: Ana Rosa Oquendo on 02-26-2024 Calcium [Mass/Vol] 9.7 mg/dL 8.5-10.1 [facility] Serum or plasma creatinine m easurement (mass/volume)Ordered By: Ana Rosa Oquendo on 02-26-2024 Creatinine [Mass/Vol] 0.62 mg/dL 0.55-1.02 [facility] Comment on above: The validity of the calculated GFR & GFRAA in patients over 70 years has not been determined. Clinical correlation is essential. Serum or plasma urea nitroge n measurement (mass/volume)Ordered By: Ana Rosa Oquendo on 02-26-2024 Urea nitrogen [Mass/Vol] 10 mg/dL - [facility] Sodium levelOrdered By: J Carlos coronel Azra on 02-26-2024 Sodium [Moles/Vol] 139 mmol/L 136-145 [facility] 12 Lead EKGon 02-09-2024 12 Lead EKG Normal [facility] 12 Lead EKG Normal [facility] 44-TL-Ndxomtz DOrdered By: Che Greco on 02-09-2024 Vitamin D 25-Hydroxy 72.0 ng/mL [facility] Comment on above: Vitamin D 25(OH) Sta tus Range Deficiency <20 ng/mL (50nmol/L) Insufficiency 20 - 30 ng/mL (50 - 75 nmol/L) Sufficiency 30 - 100 ng/mL (75 - 250 nmol/L) Toxicity >100 ng/mL (>250 nmol/L) Absolute neutrophil countOrd ered By: Gustabo العلي on 02-09-2024 Neutrophils (Bld) [#/Vol] 5.4 10*3/uL 2.0-7.7 [facility] Absolute neutrophil countOrd ered By: Paul Greco on 02-09-2024 Neutrophils (Bld) [#/Vol] 6.1 10*3/uL 2.0-7.7 [facility] Albumin to globulin ratioOrd ered By: Paul Greco on 02-09-2024 Albumin/Globulin [Mass ratio] 1.0 {ratio} 0.9-2.4 [facility] Basic Metabolic Profile (BMP )on 02-09-2024 BUN/CRE 16.2 RATIO Normal 10- [facility] Comment on above: Order Comment: 1Y Performed By: #### L 500.2500, L501.5425, L300.3900, L100.0100 ####[facility] [address] [place], [address] CA,Total 9.1 mg/dL Normal 8.5-10.1 [facility] Comment on above: Order Comment: 1Y Performed By: #### L 500.2500, L501.5425, L300.3900, L100.0100 ####[facility] [address] [place], [address] Chloride [Moles/Vol] 110 mmol/L High 98-107 [facility] Comment on above: Order Comment: 1Y Performed By: #### L 500.2500, L501.5425, L300.3900, L100.0100 ####[facility] [address] [place], [address] CO2 [Moles/Vol] 23.0 mmol/L Normal 21.0-32.0 [facility] Comment on above: Order Comment: 1Y Performed By: #### L 500.2500, L501.5425, L300.3900, L100.0100 ####[facility] [address] [place], [address] Creatinine [Mass/Vol] 0.62 mg/dL Normal 0.55-1.02 [facility] Comment on above: Order Comment: 1Y Result Comment: The validity of the calculated GFR GFRAA in patients over70 years has not been determined. Clinical correlation isessential. Performed By: #### L 500.2500, L501.5425, L300.3900, L100.0100 ####[facility] [address] [place], [address] ECRCL 91.87 ml/min Normal [facility] Comment on above: Order Comment: 1Y Performed By: #### L 500.2500, L501.5425, L300.3900, L100.0100 ####[facility] [address] [place], [address] EST GFR - AA 125 mL/min Normal >60 [facility] Comment on above: Order Comment: 1Y Result Comment: Afri can Andorran GFR Calc Performed By: #### L 500.2500, L501.5425, L300.3900, L100.0100 ####[facility] [address] [place], [address] GAP 9 Normal 5-15 [facility] Comment on above: Order Comment: 1Y Performed By: #### L 500.2500, L501.5425, L300.3900, L100.0100 ####[facility] [address] [place], [address] GFR/1.73 sq M.predicted among non-blacks MDRD (S/P/Bld) [Vol rate/Area] 104 mL/min/{1.73_m2} Normal >60 [facility] Comment on above: Order Comment: 1Y Result Comment: Non- GFR Calc Performed By: #### L 500.2500, L501.5425, L300.3900, L100.0100 ####[facility] [address] [place], [address] Glucose [Mass/Vol] 147 mg/dL High 74-106 [facility] Comment on above: Order Comment: 1Y Result Comment: Fast ing Glucose result greater than or equal to 126 mg/dLsuggests DIABETES MELLITUS per A.D.A. criteria. Performed By: #### L 500.2500, L501.5425, L300.3900, L100.0100 ####[facility] [address] [place], [address] Potassium [Moles/Vol] 3.0 mmol/L Low 3.5-5.1 [facility] Comment on above: Order Comment: 1Y Performed By: #### L 500.2500, L501.5425, L300.3900, L100.0100 ####[facility] [address] [place], [address] Sodium [Moles/Vol] 141 mmol/L Normal 136-145 [facility] Comment on above: Order Comment: 1Y Performed By: #### L 500.2500, L501.5425, L300.3900, L100.0100 ####[facility] [address] [place], [address] Urea nitrogen [Mass/Vol] 10 mg/dL Normal 7-18 [facility] Comment on above: Order Comment: 1Y Performed By: #### L 500.2500, L501.5425, L300.3900, L100.0100 ####[facility] [address] [place], [address] Basophil percentageOrdered B y: Gustabo العلي on 02-09-2024 Basophils/100 WBC (Bld) 0.5 % 0-1 [facility] Basophil percentageOrdered B y: Paul Greco on 02-09-2024 Basophils/100 WBC (Bld) 0.5 % 0-1 [facility] Bilirubin, totalOrdered By: Paul Greco on 02-09-2024 Bilirubin [Mass/Vol] 0.80 mg/dL 0.20-1.00 [facility] Comment on above: For patients on eltr ombopag therapy, use of Dimension Stanton TBIL is not recommended. Blood urea nitrogen (BUN)/cr eatinine ratioOrdered By: Gustabo العلي on 02-09-2024 Urea nitrogen/Creatinine [Mass ratio] 16.2 mg/mg 12-23 [facility] Blood urea nitrogen (BUN)/cr eatinine ratioOrdered By: Paul Greco on 02-09-2024 Urea nitrogen/Creatinine [Mass ratio] 13.1 mg/mg 12-23 [facility] CBC W/Diff, Automatedon 12-0 Absolute Lymph 1.50 X10 3/uL Normal 0.83-4.51 [facility] Comment on above: Performed By: #### L 500.2500, L501.5425, L300.3900, L100.0100 ####[facility] [address] [place], [address] Absolute Neut 5.4 X10 3/uL Normal 2.0-7.7 [facility] Comment on above: Performed By: #### L 500.2500, L501.5425, L300.3900, L100.0100 ####[facility] [address] [place], [address] Basophils/100 WBC (Bld) 0.5 % Normal 0-1 [facility] Comment on above: Performed By: #### L 500.2500, L501.5425, L300.3900, L100.0100 ####[facility] [address] [place], [address] Eosinophils/100 WBC (Bld) 1.1 % Normal 0-5 [facility] Comment on above: Performed By: #### L 500.2500, L501.5425, L300.3900, L100.0100 ####[facility] [address] [place], [address] Erythrocyte distribution width (RBC) [Ratio] 19.0 % High 11.6-14.6 [facility] Comment on above: Performed By: #### L 500.2500, L501.5425, L300.3900, L100.0100 ####[facility] [address] [place], [address] Hematocrit (Bld) [Volume fraction] 37.5 % Normal 37-47 [facility] Comment on above: Performed By: #### L 500.2500, L501.5425, L300.3900, L100.0100 ####[facility] [address] [place], [address] Hemoglobin (Bld) [Mass/Vol] 11.7 g/dL Low 12.0-15.0 [facility] Comment on above: Performed By: #### L 500.2500, L501.5425, L300.3900, L100.0100 ####[facility] [address] [place], [address] IG% 0.400 Normal 0.0-0.9 [facility] Comment on above: Result Comment: IG% - Immature Granulocytes (promyelocytes, myelocytes andmetamyelocytes) > 1% indicates that a LEFT SHIFT is Present. Performed By: #### L 500.2500, L501.5425, L300.3900, L100.0100 ####[facility] [address] [place], [address] Lymphocytes/100 WBC (Bld) 18.8 % Low 19-41 [facility] Comment on above: Performed By: #### L 500.2500, L501.5425, L300.3900, L100.0100 ####[facility] [address] [place], [address] MCH (RBC) [Entitic mass] 25.3 pg Low 27.0-32.0 [facility] Comment on above: Performed By: #### L 500.2500, L501.5425, L300.3900, L100.0100 ####[facility] [address] [place], [address] MCHC (RBC) [Mass/Vol] 31.2 g/dL Low 32-36 [facility] Comment on above: Performed By: #### L 500.2500, L501.5425, L300.3900, L100.0100 ####[facility] [address] [place], [address] MCV (RBC) [Entitic vol] 81.2 fL Normal 81-99 [facility] Comment on above: Performed By: #### L 500.2500, L501.5425, L300.3900, L100.0100 ####[facility] [address] [place], [address] Monocytes/100 WBC (Bld) 12.0 % High 0-10 [facility] Comment on above: Performed By: #### L 500.2500, L501.5425, L300.3900, L100.0100 ####[facility] [address] [place], [address] Neutrophils/100 WBC (Bld) 67.2 % Normal 47-70 [facility] Comment on above: Performed By: #### L 500.2500, L501.5425, L300.3900, L100.0100 ####[facility] [address] [place], [address] Nucleated RBC (Bld) [#/Vol] 0 10*3/uL Normal 0-5 [facility] Comment on above: Performed By: #### L 500.2500, L501.5425, L300.3900, L100.0100 ####[facility] [address] [place], [address] Platelet mean volume (Bld) [Entitic vol] 10.1 fL Normal 6.2-12.0 [facility] Comment on above: Performed By: #### L 500.2500, L501.5425, L300.3900, L100.0100 ####[facility] [address] [place], [address] Platelets (Bld) [#/Vol] 219 10*3/uL Normal 150-450 [facility] Comment on above: Performed By: #### L 500.2500, L501.5425, L300.3900, L100.0100 ####[facility] [address] [place], [address] RBC (Bld) [#/Vol] 4.62 10*6/uL Normal 4.2-5.[address] [facility] Comment on above: Performed By: #### L 500.2500, L501.5425, L300.3900, L100.0100 ####[facility] [address] [place], [address] RDW SD 54.4 fl High 35.1-43.9 [facility] Comment on above: Performed By: #### L 500.2500, L501.5425, L300.3900, L100.0100 ####[facility] [address] [place], [address] WBC (Bld) [#/Vol] 8.0 10*3/uL Normal 4.4-11.0 [facility] Comment on above: Performed By: #### L 500.2500, L501.5425, L300.3900, L100.0100 ####[facility] [address] [place], [address] Absolute Lymph 1.61 X10 3/uL Normal 0.83-4.51 [facility] Comment on above: Order Comment: Order Date: 01/11/24Order Info: 0184-1 - CBCD Performed By: #### L 506.1000, L100.0100, L501.9520, L500.4050 ####[facility] [address] [place], [address] Absolute Neut 6.1 X10 3/uL Normal 2.0-7.7 [facility] Comment on above: Order Comment: Order Date: 01/11/24Order Info: 0184-1 - CBCD Performed By: #### L 506.1000, L100.0100, L501.9520, L500.4050 ####[facility] [address] [place], [address] Basophils/100 WBC (Bld) 0.5 % Normal 0-1 [facility] Comment on above: Order Comment: Order Date: 01/11/24Order Info: 0184-1 - CBCD Performed By: #### L 506.1000, L100.0100, L501.9520, L500.4050 ####[facility] [address] [place], [address] Eosinophils/100 WBC (Bld) 1.1 % Normal 0-5 [facility] Comment on above: Order Comment: Order Date: 01/11/24Order Info: 0184-1 - CBCD Performed By: #### L 506.1000, L100.0100, L501.9520, L500.4050 ####[facility] [address] [place], [address] Erythrocyte distribution width (RBC) [Ratio] 19.4 % High 11.6-14.6 [facility] Comment on above: Order Comment: Order Date: 01/11/24Order Info: 0184-1 - CBCD Performed By: #### L 506.1000, L100.0100, L501.9520, L500.4050 ####[facility] [address] [place], [address] Hematocrit (Bld) [Volume fraction] 39.9 % Normal 37-47 [facility] Comment on above: Order Comment: Order Date: 01/11/24Order Info: 0184-1 - CBCD Performed By: #### L 506.1000, L100.0100, L501.9520, L500.4050 ####[facility] [address] [place], [address] Hemoglobin (Bld) [Mass/Vol] 12.2 g/dL Normal 12.0-15.0 [facility] Comment on above: Order Comment: Order Date: 01/11/24Order Info: 0184-1 - CBCD Performed By: #### L 506.1000, L100.0100, L501.9520, L500.4050 ####[facility] [address] [place], [address] IG% 0.500 Normal 0.0-0.9 [facility] Comment on above: Order Comment: Order Date: 01/11/24Order Info: 0184-1 - CBCD Result Comment: IG% - Immature Granulocytes (promyelocytes, myelocytes andmetamyelocytes) > 1% indicates that a LEFT SHIFT is Present. Performed By: #### L 506.1000, L100.0100, L501.9520, L500.4050 ####[facility] [address] [place], [address] Lymphocytes/100 WBC (Bld) 18.4 % Low 19-41 [facility] Comment on above: Order Comment: Order Date: 01/11/24Order Info: 0184-1 - CBCD Performed By: #### L 506.1000, L100.0100, L501.9520, L500.4050 ####[facility] [address] [place], [address] MCH (RBC) [Entitic mass] 25.1 pg Low 27.0-32.0 [facility] Comment on above: Order Comment: Order Date: 01/11/24Order Info: 018-1 - CBCD Performed By: #### L 506.1000, L100.0100, L501.9520, L500.4050 ####[facility] [address] [place], [address] MCHC (RBC) [Mass/Vol] 30.6 g/dL Low 32-36 [facility] Comment on above: Order Comment: Order Date: 01/11/24Order Info: 0184-1 - CBCD Performed By: #### L 506.1000, L100.0100, L501.9520, L500.4050 ####[facility] [address] [place], [address] MCV (RBC) [Entitic vol] 82.1 fL Normal 81-99 [facility] Comment on above: Order Comment: Order Date: 01/11/24Order Info: 0184-1 - CBCD Performed By: #### L 506.1000, L100.0100, L501.9520, L500.4050 ####[facility] [address] [place], [address] Monocytes/100 WBC (Bld) 10.5 % High 0-10 [facility] Comment on above: Order Comment: Order Date: 01/11/24Order Info: 0184-1 - CBCD Performed By: #### L 506.1000, L100.0100, L501.9520, L500.4050 ####[facility] [address] [place], [address] Neutrophils/100 WBC (Bld) 69.0 % Normal 47-70 [facility] Comment on above: Order Comment: Order Date: 01/11/24Order Info: 0184-1 - CBCD Performed By: #### L 506.1000, L100.0100, L501.9520, L500.4050 ####[facility] [address] [place], [address] Nucleated RBC (Bld) [#/Vol] 0 10*3/uL Normal 0-5 [facility] Comment on above: Order Comment: Order Date: 01/11/24Order Info: 018- - CBCD Performed By: #### L 506.1000, L100.0100, L501.9520, L500.4050 ####[facility] [address] [place], [address] Platelet mean volume (Bld) [Entitic vol] 10.5 fL Normal 6.2-12.0 [facility] Comment on above: Order Comment: Order Date: 01/11/24Order Info: 018- - CBCD Performed By: #### L 506.1000, L100.0100, L501.9520, L500.4050 ####[facility] [address] [place], [address] Platelets (Bld) [#/Vol] 246 10*3/uL Normal 150-450 [facility] Comment on above: Order Comment: Order Date: 01/11/24Order Info: 0184-1 - CBCD Performed By: #### L 506.1000, L100.0100, L501.9520, L500.4050 ####[facility] [address] [place], [address] RBC (Bld) [#/Vol] 4.86 10*6/uL Normal 4.2-5.[address] [facility] Comment on above: Order Comment: Order Date: 01/11/24Order Info: 0184-1 - CBCD Performed By: #### L 506.1000, L100.0100, L501.9520, L500.4050 ####[facility] [address] [place], [address] RDW SD 56.5 fl High 35.1-43.9 [facility] Comment on above: Order Comment: Order Date: 01/11/24Order Info: 0184- - CBCD Performed By: #### L 506.1000, L100.0100, L501.9520, L500.4050 ####[facility] [address] [place], [address] WBC (Bld) [#/Vol] 8.8 10*3/uL Normal 4.4-11.0 [facility] Comment on above: Order Comment: Order Date: 01/11/24Order Info: 0184- - CBCD Performed By: #### L 506.1000, L100.0100, L501.9520, L500.4050 ####[facility] [address] [place], [address] CTA Chest W/WO Contraston CTA Chest W/WO Contrast Normal [facility] Carbon dioxide measurementOr dered By: Gustabo العلي on 02-09-2024 CO2 [Moles/Vol] 23.0 mmol/L 21.0-32.0 [facility] Carbon dioxide measurementOr dered By: Paul Greco on 02-09-2024 CO2 [Moles/Vol] 23.0 mmol/L 21.0-32.0 [facility] Chloride measurementOrdered By: Gustabo العلي on 02-09-2024 Chloride [Moles/Vol] 110 mmol/L High 98-107 [facility] Chloride measurementOrdered By: Paul Greco on 02-09-2024 Chloride [Moles/Vol] 107 mmol/L 98-107 [facility] Comprehensive Metabolic Prof ilon 02-09-2024 Albumin [Mass/Vol] 3.8 g/dL Normal 3.2-5.0 [facility] Comment on above: Order Comment: Order Date: 01/11/24Order Info: [id number] - CMPOrder Info: 3016-3 - TSH1 Performed By: #### L 506.1000, L100.0100, L501.9520, L500.4050 ####[facility] [address] [place], [address] Albumin/Globulin [Mass ratio] 1.0 {ratio} Normal 0.9-2.4 [facility] Comment on above: Order Comment: Order Date: 01/11/24Order Info: [id number] - CMPOrder Info: 6-3 - TSH1 Performed By: #### L 506.1000, L100.0100, L501.9520, L500.4050 ####[facility] [address] [place], [address] ALK P 77 U/L Normal 45-117 [facility] Comment on above: Order Comment: Order Date: 01/11/24Order Info: 0786- - CMPOrder Info: 3016-3 - TSH1 Performed By: #### L 506.1000, L100.0100, L501.9520, L500.4050 ####[facility] [address] [place], [address] ALT [Catalytic activity/Vol] 21 U/L Normal 13-56 [facility] Comment on above: Order Comment: Order Date: 01/11/24Order Info: [id number] - CMPOrder Info: 3016-3 - TSH1 Performed By: #### L 506.1000, L100.0100, L501.9520, L500.4050 ####[facility] [address] [place], [address] AST [Catalytic activity/Vol] 12 U/L Low 15-37 [facility] Comment on above: Order Comment: Order Date: 01/11/24Order Info: 0786-1 - CMPOrder Info: 3015-3 - TSH1 Performed By: #### L 506.1000, L100.0100, L501.9520, L500.4050 ####[facility] [address] [place], [address] Bilirubin [Mass/Vol] 0.80 mg/dL Normal 0.20-1.00 [facility] Comment on above: Order Comment: Order Date: 01/11/24Order Info: 785-1 - CMPOrder Info: 6-3 - TSH1 Result Comment: For patients on eltrombopag therapy, use of Dimension [place] TBIL is not recommended. Performed By: #### L 506.1000, L100.0100, L501.9520, L500.4050 ####[facility] [address] [place], [address] BUN/CRE 13.1 RATIO Normal 10-20 [facility] Comment on above: Order Comment: Order Date: 01/11/24Order Info: 0786- - CMPOrder Info: 3015-3 - TSH1 Performed By: #### L 506.1000, L100.0100, L501.9520, L500.4050 ####[facility] [address] [place], [address] CA,Total 9.4 mg/dL Normal 8.5-10.1 [facility] Comment on above: Order Comment: Order Date: 01/11/24Order Info: 0786- - CMPOrder Info: 3015-3 - TSH1 Performed By: #### L 506.1000, L100.0100, L501.9520, L500.4050 ####[facility] [address] [place], [address] Chloride [Moles/Vol] 107 mmol/L Normal 98-107 [facility] Comment on above: Order Comment: Order Date: 01/11/24Order Info: 0786-1 - CMPOrder Info: 3016-3 - TSH1 Performed By: #### L 506.1000, L100.0100, L501.9520, L500.4050 ####[facility] [address] [place], [address] CO2 [Moles/Vol] 23.0 mmol/L Normal 21.0-32.0 [facility] Comment on above: Order Comment: Order Date: 01/11/24Order Info: 0786- - CMPOrder Info: 3015-05 - TSH1 Performed By: #### L 506.1000, L100.0100, L501.9520, L500.4050 ####[facility] [address] [place], [address] Creatinine [Mass/Vol] 0.61 mg/dL Normal 0.55-1.02 [facility] Comment on above: Order Comment: Order Date: 01/11/24Order Info: 0786- - CMPOrder Info: 3015-05 - TSH1 Result Comment: The validity of the calculated GFR GFRAA in patients over70 years has not been determined. Clinical correlation isessential. Performed By: #### L 506.1000, L100.0100, L501.9520, L500.4050 ####[facility] [address] [place], [address] EST GFR - AA 127 mL/min Normal >60 [facility] Comment on above: Order Comment: Order Date: 01/11/24Order Info: [id number] - CMPOrder Info: 3015-05 - TSH1 Result Comment: Afri can Andorran GFR Calc Performed By: #### L 506.1000, L100.0100, L501.9520, L500.4050 ####[facility] [address] [place], [address] GAP 10 Normal 5-15 [facility] Comment on above: Order Comment: Order Date: 01/11/24Order Info: [id number] - CMPOrder Info: 3015-05 - TSH1 Performed By: #### L 506.1000, L100.0100, L501.9520, L500.4050 ####[facility] [address] [place], [address] GFR/1.73 sq M.predicted among non-blacks MDRD (S/P/Bld) [Vol rate/Area] 105 mL/min/{1.73_m2} Normal >60 [facility] Comment on above: Order Comment: Order Date: 01/11/24Order Info: [id number] - CMPOrder Info: [id number] - TSH1 Result Comment: Non- GFR Calc Performed By: #### L 506.1000, L100.0100, L501.9520, L500.4050 ####[facility] [address] [place], [address] Globulin (S) [Mass/Vol] 3.7 g/dL Normal 2.2-4.2 [facility] Comment on above: Order Comment: Order Date: 01/11/24Order Info: [id number] - CMPOrder Info: [id number] - TSH1 Performed By: #### L 506.1000, L100.0100, L501.9520, L500.4050 ####[facility] [address] [place], [address] Glucose [Mass/Vol] 174 mg/dL High 74-106 [facility] Comment on above: Order Comment: Order Date: 01/11/24Order Info: [id number] - CMPOrder Info: [id number] - TSH1 Result Comment: Fast ing Glucose result greater than or equal to 126 mg/dLsuggests DIABETES MELLITUS per A.D.A. criteria. Performed By: #### L 506.1000, L100.0100, L501.9520, L500.4050 ####[facility] [address] [place], [address] Potassium [Moles/Vol] 3.1 mmol/L Low 3.5-5.1 [facility] Comment on above: Order Comment: Order Date: 01/11/24Order Info: [id number] - CMPOrder Info: 3015-3 - TSH1 Performed By: #### L 506.1000, L100.0100, L501.9520, L500.4050 ####[facility] [address] [place], [address] Sodium [Moles/Vol] 140 mmol/L Normal 136-145 [facility] Comment on above: Order Comment: Order Date: 01/11/24Order Info: 0786- - CMPOrder Info: [id number] - TSH1 Performed By: #### L 506.1000, L100.0100, L501.9520, L500.4050 ####[facility] [address] [place], [address] T PROT 7.5 g/dL Normal 6.4-8.2 [facility] Comment on above: Order Comment: Order Date: 01/11/24Order Info: 0786- - CMPOrder Info: 3 - TSH1 Performed By: #### L 506.1000, L100.0100, L501.9520, L500.4050 ####[facility] [address] [place], [address] Urea nitrogen [Mass/Vol] 8 mg/dL Normal 7-18 [facility] Comment on above: Order Comment: Order Date: 01/11/24Order Info: 0786- - CMPOrder Info: [id number] - TSH1 Performed By: #### L 506.1000, L100.0100, L501.9520, L500.4050 ####[facility] [address] [place], [address] Emergency Department Summary on 02-09-2024 Emergency Department Summary Normal [facility] Eosinophil percentageOrdered By: Gustabo العلي on 02-09-2024 Eosinophils/100 WBC (Bld) 1.1 % 0-5 [facility] Eosinophil percentageOrdered By: Paul Greco on 02-09-2024 Eosinophils/100 WBC (Bld) 1.1 % 0-5 [facility] Erythrocyte distribution wid th ratioOrdered By: Gustabo العلي on 02-09-2024 Erythrocyte distribution width (RBC) [Ratio] 19.0 % High 11.6-14.6 [facility] Erythrocyte distribution wid th ratioOrdered By: Paul Greco on 02-09-2024 Erythrocyte distribution width (RBC) [Ratio] 19.4 % High 11.6-14.6 [facility] Erythrocyte distribution wid th standard deviationOrdered By: Gustabo العلي on 02-09-2024 Erythrocyte distribution width (RBC) [Entitic vol] 54.4 fL High 35.1-43.9 [facility] Erythrocyte distribution wid th standard deviationOrdered By: Paul Greco on 02-09-2024 Erythrocyte distribution width (RBC) [Entitic vol] 56.5 fL High 35.1-43.9 [facility] Estimated glomerular filtrat ion rate (GFR) AmericanOrdered By: Gustabo العلي on 02-09-2024 Estimated GFR (MDRD) Amer 125 mL/min >60 [facility] Comment on above: GFR Calc Estimated glomerular filtrat ion rate (GFR) AmericanOrdered By: Paul Greco on 02-09-2024 Estimated GFR (MDRD) Amer 127 mL/min >60 [facility] Comment on above: GFR Calc Estimation of creatinine debbie aranceOrdered By: Gustabo العلي on 02-09-2024 Estimated Creatinine Clearance Calc 91.87 ml/min [facility] Glomerular filtration rate ( GFR) estimationOrdered By: Gustabo العلي on 02-09-2024 Estimated GFR (MDRD) Non-Af Amer 104 mL/min >60 [facility] Comment on above: Non- GFR Calc Glomerular filtration rate ( GFR) estimationOrdered By: Paul Greco on 02-09-2024 Estimated GFR (MDRD) Non-Af Amer 105 mL/min >60 [facility] Comment on above: Non- GFR Calc Glucose measurementOrdered B y: Gustabo العلي on 02-09-2024 Glucose [Mass/Vol] 147 mg/dL High 74-106 [facility] Comment on above: Fasting Glucose resu lt greater than or equal to 126 mg/dL suggests DIABETES MELLITUS per A.D.A. criteria. Glucose measurementOrdered B y: Paul Greco on 02-09-2024 Glucose [Mass/Vol] 174 mg/dL High 74-106 [facility] Comment on above: Fasting Glucose resu lt greater than or equal to 126 mg/dL suggests DIABETES MELLITUS per A.D.A. criteria. Hematocrit Auto (Bld) [Volum e fraction]Ordered By: Gustabo العلي on 02-09-2024 Hematocrit (Bld) [Volume fraction] 37.5 % 37-47 [facility] Hematocrit Auto (Bld) [Volum e fraction]Ordered By: Paul Greco on 02-09-2024 Hematocrit (Bld) [Volume fraction] 39.9 % 37-47 [facility] Hemoglobin measurementOrdere d By: Gustabo العلي on 02-09-2024 Hemoglobin (Bld) [Mass/Vol] 11.7 g/dL Low 12.0-15.0 [facility] Hemoglobin measurementOrdere d By: Paul Greco on 02-09-2024 Hemoglobin (Bld) [Mass/Vol] 12.2 g/dL 12.0-15.0 [facility] Immature granulocytes/100 WB C Auto (Bld)Ordered By: Gustabo العلي on 02-09-2024 Immature granulocytes/100 WBC (Bld) 0.400 % 0.0-0.9 [facility] Comment on above: IG% - Immature Granu locytes (promyelocytes, myelocytes and metamyelocytes) > 1% indicates that a LEFT SHIFT is Present. Immature granulocytes/100 WB C Auto (Bld)Ordered By: Paul Greco on 02-09-2024 Immature granulocytes/100 WBC (Bld) 0.500 % 0.0-0.9 [facility] Comment on above: IG% - Immature Granu locytes (promyelocytes, myelocytes and metamyelocytes) > 1% indicates that a LEFT SHIFT is Present. International normalized rat io (INR) calculationOrdered By: Gustabo العلي on 02-09-2024 INR Coag (Bld) [Relative time] 1.1 {INR} [facility] L501.4020on 02-09-2024 TROPONIN-I HS 213 pg/mL Invalid Interpretation Code 3.0-54.0 [facility] Comment on above: Order Comment: Order Date: 01/11/24Order Info: [id number] - CMPOrder Info: [id number] - TSH1 Result Comment: Crit ical Result(s) Called at: 13:41:02 02/09/2024 by:Millicent Hansen. Results read back by same. Please Note: New Test Units and Gender Specific Reference Ranges. For more information see Policy Stat Procedure [place] High Sensitivity Troponin (TNIH) and attachments. Performed By: #### L 501.4020 ####[facility] [address] [place], [address] L501.5425on 02-09-2024 TROPONIN-I HS 214 pg/mL Invalid Interpretation Code 3.0-54.0 [facility] Comment on above: Order Comment: 1Y Result Comment: Crit ical Result(s) Called at: 17:46:00 02/09/2024 by: BERNARDINO. Results read back by Dr. العلي Please Note: New Test Units and Gender Specific Reference Ranges. For more information see Policy Stat Procedure [place] High Sensitivity Troponin (TNIH) and attachments. Performed By: #### L 500.2500, L501.5425, L300.3900, L100.0100 ####[facility] [address] [place], [place], [address] Laboratory - Chemistry and C hemistry - challengeOrdered By: Paul Greco on 02-09-2024 AST [Catalytic activity/Vol] 12 U/L Low 15-37 [facility] Lymphocytes Auto (Unsp spec) [#/Vol]Ordered By: Gustabo العلي on 02-09-2024 Lymphocytes (Bld) [#/Vol] 1.50 10*3/uL 0.83-4.51 [facility] Lymphocytes Auto (Unsp spec) [#/Vol]Ordered By: Paul Greco on 02-09-2024 Lymphocytes (Bld) [#/Vol] 1.61 10*3/uL 0.83-4.51 [facility] Lymphocytes/100 WBC Auto (Un sp spec)Ordered By: Gustabo العلي on 02-09-2024 Lymphocytes/100 WBC (Bld) 18.8 % Low 19-41 [facility] Lymphocytes/100 WBC Auto (Un sp spec)Ordered By: Paul Greco on 02-09-2024 Lymphocytes/100 WBC (Bld) 18.4 % Low 19-41 [facility] MCV (mean corpuscular volume ) determinationOrdered By: Gustabo العلي on 02-09-2024 MCV (RBC) [Entitic vol] 81.2 fL 81-99 [facility] MCV (mean corpuscular volume ) determinationOrdered By: Paul Greco on 02-09-2024 MCV (RBC) [Entitic vol] 82.1 fL 81-99 [facility] Mean corpuscular hemoglobin (MCH) determinationOrdered By: Gustabo العلي on 02-09-2024 MCH (RBC) [Entitic mass] 25.3 pg Low 27.0-32.0 [facility] Mean corpuscular hemoglobin (MCH) determinationOrdered By: Paul Greco on 02-09-2024 MCH (RBC) [Entitic mass] 25.1 pg Low 27.0-32.0 [facility] Mean corpuscular hemoglobin concentration (MCHC) determinationOrdered By: Gustabo العلي on 02-09-2024 MCHC (RBC) [Mass/Vol] 31.2 g/dL Low 32-36 [facility] Mean corpuscular hemoglobin concentration (MCHC) determinationOrdered By: Paul Greco on 02-09-2024 MCHC (RBC) [Mass/Vol] 30.6 g/dL [facility] 32-36 [facility] Mean platelet volume determi nationOrdered By: Gustabo العلي on 02-09-2024 Platelet mean volume (Bld) [Entitic vol] 10.1 fL 6.2-12.0 [facility] Mean platelet volume determi nationOrdered By: Paul Greco on 02-09-2024 Platelet mean volume (Bld) [Entitic vol] 10.5 fL 6.2-12.0 [facility] Monocyte percentageOrdered B y: Gustabo العلي on 02-09-2024 Monocytes/100 WBC (Bld) 12.0 % High 0-10 [facility] Monocyte percentageOrdered B y: Paul Greco on 02-09-2024 Monocytes/100 WBC (Bld) 10.5 % High 0-10 [facility] Neutrophil percentageOrdered By: Gustabo العلي on 02-09-2024 Neutrophils/100 WBC (Bld) 67.2 % 47-70 [facility] Neutrophil percentageOrdered By: Paul Angus on 02-09-2024 Neutrophils/100 WBC (Bld) 69.0 % 47-70 [facility] Nucleated red blood cell per centageOrdered By: Gustabo العلي on 02-09-2024 Nucleated RBC/100 WBC (Bld) [Ratio] 0 % 0-5 [facility] Nucleated red blood cell per centageOrdered By: Paul Greco on 02-09-2024 Nucleated RBC/100 WBC (Bld) [Ratio] 0 % 0-5 [facility] Platelet countOrdered By: Velasquez العلي on 02-09-2024 Platelets (Bld) [#/Vol] 219 10*3/uL 150-450 [facility] Platelet countOrdered By: Julianna Greco on 02-09-2024 Platelets (Bld) [#/Vol] 246 10*3/uL 150-450 [facility] Potassium measurementOrdered By: Gustabo العلي on 02-09-2024 Potassium [Moles/Vol] 3.0 mmol/L Low 3.5-5.1 [facility] Potassium measurementOrdered By: Paul Greco on 02-09-2024 Potassium [Moles/Vol] 3.1 mmol/L Low 3.5-5.1 [facility] Prothrombin Time w/INRon INR Coag (PPP) [Relative time] 1.1 {INR} Normal [facility] Comment on above: Performed By: #### L 500.2500, L501.5425, L300.3900, L100.0100 ####[facility] [address] [place], [place], [address] PT Coag (PPP) [Time] 13.9 s Normal 11.7-14.9 [facility] Comment on above: Performed By: #### L 500.2500, L501.5425, L300.3900, L100.0100 ####[facility] [address] [place], [place], [address] Prothrombin timeOrdered By: Gustabo العلي on 02-09-2024 PT Coag (PPP) [Time] 13.9 s 11.7-14.9 [facility] RBC Auto (Bld) [#/Vol]Ordere d By: Gustabo العلي on 02-09-2024 RBC (Bld) [#/Vol] 4.62 10*6/uL 4.2-5.[address] [facility] RBC Auto (Bld) [#/Vol]Ordere d By: Paul Greco on 02-09-2024 RBC (Bld) [#/Vol] 4.86 10*6/uL 4.2-5.[address] [facility] Serum anion gap measurementO rdered By: Gustabo العلي on 02-09-2024 Anion gap [Moles/Vol] 9 mmol/L -15 [facility] Serum anion gap measurementO rdered By: Paul Greco on 02-09-2024 Anion gap [Moles/Vol] 10 mmol/L 5-15 [facility] Serum globulin measurementOr dered By: Paul Greco on 02-09-2024 Globulin (S) [Mass/Vol] 3.7 g/dL 2.2-4.2 [facility] Serum or plasma alanine mesa otransferase (ALT) measurementOrdered By: Paul Greco on 02-09-2024 ALT [Catalytic activity/Vol] 21 U/L 13-56 [facility] Serum or plasma albumin aminta urement (mass/volume)Ordered By: Paul Greco on 02-09-2024 Albumin [Mass/Vol] 3.8 g/dL 3.2-5.0 [facility] Serum or plasma alkaline arcelia sphatase measurementOrdered By: Paul Greco on 02-09-2024 ALP [Catalytic activity/Vol] 77 U/L 45-117 [facility] Serum or plasma calcium aminta urement (mass/volume)Ordered By: Gustabo العلي on 02-09-2024 Calcium [Mass/Vol] 9.1 mg/dL 8.5-10.1 [facility] Serum or plasma calcium aminta urement (mass/volume)Ordered By: Paul Greco on 02-09-2024 Calcium [Mass/Vol] 9.4 mg/dL 8.5-10.1 [facility] Serum or plasma creatinine m easurement (mass/volume)Ordered By: Gustabo العلي on 02-09-2024 Creatinine [Mass/Vol] 0.62 mg/dL 0.55-1.02 [facility] Comment on above: The validity of the calculated GFR & GFRAA in patients over 70 years has not been determined. Clinical correlation is essential. Serum or plasma creatinine m easurement (mass/volume)Ordered By: Paul Greco on 02-09-2024 Creatinine [Mass/Vol] 0.61 mg/dL 0.55-1.02 [facility] Comment on above: The validity of the calculated GFR & GFRAA in patients over 70 years has not been determined. Clinical correlation is essential. Serum or plasma urea nitroge n measurement (mass/volume)Ordered By: Gustabo العلي on 02-09-2024 Urea nitrogen [Mass/Vol] 10 mg/dL 09-20 [facility] Serum or plasma urea nitroge n measurement (mass/volume)Ordered By: Paul Greco on 02-09-2024 Urea nitrogen [Mass/Vol] 8 mg/dL 09-20 [facility] Sodium levelOrdered By: Gustabo العلي on 02-09-2024 Sodium [Moles/Vol] 141 mmol/L 136-145 [facility] Sodium levelOrdered By: Fredy Greco on 02-09-2024 Sodium [Moles/Vol] 140 mmol/L 136-145 [facility] TSH QnOrdered By: Paul osorio on 02-09-2024 Thyroid Stimulating Hormone (TSH) 1.820 uIU/mL 0.358-3.740 [facility] Thyroid Stim Hormone (TSH)on 02-09-2024 TSH 1.820 uIU/mL Normal 0.358-3.740 [facility] Comment on above: Order Comment: Order Date: 01/11/24Order Info: [id number] - CMPOrder Info: [id number] - TSH1 Performed By: #### L 506.1000, L100.0100, L501.9520, L500.4050 ####[facility] [address] [place], [address] Total proteinOrdered By: Renate flood Angus on 02-09-2024 Protein [Mass/Vol] 7.5 g/dL 6.4-8.2 [facility] Tropinin I.cardiac panel Hig h sensitivity methodOrdered By: Gustabo العلي on 02-09-2024 Troponin I High Sensitivity 214 pg/mL High 3.0-54.0 [facility] Comment on above: Critical Result(s) C alled at: 17:46:00 02/09/2024 by: CAM STONE. Results read back by Dr. العلي Please Note: New Test Units and Gender Specific Reference Ranges. For more information see Policy Stat Procedure [place] High Sensitivity Troponin (TNIH) and attachments. Troponin IOrdered By: Paul Greco on 02-09-2024 Troponin I High Sensitivity 213 pg/mL High 3.0-54.0 [facility] Comment on above: Critical Result(s) C alled at: 13:41:02 02/09/2024 by: Millicent Hansen. Results read back by same. Please Note: New Test Units and Gender Specific Reference Ranges. For more information see Policy Stat Procedure [facility] High Sensitivity Troponin (TNIH) and attachments. Vitamin D,25 Hydroxyon 02-08 Vitamin D 25-OH 72.0 ng/mL Normal [facility] Comment on above: Order Comment: Order Date: 01/11/24Order Info: [id number] - VITD25 Result Comment: Magdalena min D 25(OH) Status Range Deficiency <20 ng/mL (50nmol/L) Insufficiency 20 - 30 ng/mL (50 - 75 nmol/L) Sufficiency 30 - 100 ng/mL (75 - 250 nmol/L) Toxicity >100 ng/mL (>250 nmol/L) Performed By: #### L 506.1000, L100.0100, L501.9520, L500.4050 ####[facility] [address] [place], [address] White blood cell (WBC) count Ordered By: Gustabo العلي on 02-09-2024 WBC (Bld) [#/Vol] 8.0 10*3/uL 4.4-11.0 [facility] White blood cell (WBC) count Ordered By: Paul Greco on 02-09-2024 WBC (Bld) [#/Vol] 8.8 10*3/uL 4.4-11.0 [facility] Gastroenterology Visit Repor ton 02-06-2024 Gastroenterology Visit Report Normal [facility] Absolute neutrophil countOrd ered By: Xiang Rogers on 01-31-2024 Neutrophils (Bld) [#/Vol] 2.4 10*3/uL 2.0-7.7 [facility] Albumin to globulin ratioOrd ered By: Xiang Rogers on 01-31-2024 Albumin/Globulin [Mass ratio] 1.1 {ratio} 0.9-2.4 [facility] BNP (brain natriuretic pepti de measurement)Ordered By: Xiang Rogers on 01-31-2024 Natriuretic peptide B (Bld) [Mass/Vol] 55.2 pg/mL 0-100 [facility] BNP,B-Type NATRIURETIC PEPTI Kem 01-31-2024 Natriuretic peptide B (Bld) [Mass/Vol] 55.2 pg/mL Normal 0-100 [facility] Comment on above: Performed By: #### L 500.4050, L100.0100, L503.6620 ####[facility] [address] [place], [place], [id number] Basophil percentageOrdered B y: Xiang Rogers on 01-31-2024 Basophils/100 WBC (Bld) 1.0 % 0-1 [facility] Bilirubin, totalOrdered By: Xiang Rogers on 01-31-2024 Bilirubin [Mass/Vol] 0.50 mg/dL 0.20-1.00 [facility] Comment on above: For patients on eltr ombopag therapy, use of Dimension [place] TBIL is not recommended. Blood urea nitrogen (BUN)/cr eatinine ratioOrdered By: Xiang Rogers on 01-31-2024 Urea nitrogen/Creatinine [Mass ratio] 12.9 mg/mg 10-20 [facility] CBC W/Diff, Automatedon 11-2 Absolute Lymph 1.73 X10 3/uL Normal 0.83-4.51 [facility] Comment on above: Performed By: #### L 500.4050, L100.0100, L503.6620 ####[facility] [address] [place], [address] Absolute Neut 2.4 X10 3/uL Normal 2.0-7.7 [facility] Comment on above: Performed By: #### L 500.4050, L100.0100, L503.6620 ####[facility] [address] [place], [address] Basophils/100 WBC (Bld) 1.0 % Normal 0-1 [facility] Comment on above: Performed By: #### L 500.4050, L100.0100, L503.6620 ####[facility] [address] [place], [address] Eosinophils/100 WBC (Bld) 3.3 % Normal 0-5 [facility] Comment on above: Performed By: #### L 500.4050, L100.0100, L503.6620 ####[facility] [address] [place], [address] Erythrocyte distribution width (RBC) [Ratio] 20.0 % High 11.6-14.6 [facility] Comment on above: Performed By: #### L 500.4050, L100.0100, L503.6620 ####[facility] [address] [place], [address] Hematocrit (Bld) [Volume fraction] 38.6 % Normal 37-47 [facility] Comment on above: Performed By: #### L 500.4050, L100.0100, L503.6620 ####[facility] [address] [place], [address] Hemoglobin (Bld) [Mass/Vol] 11.7 g/dL Low 12.0-15.0 [facility] Comment on above: Performed By: #### L 500.4050, L100.0100, L503.6620 ####[facility] [address] [place], [address] IG% 0.200 Normal 0.0-0.9 [facility] Comment on above: Result Comment: IG% - Immature Granulocytes (promyelocytes, myelocytes andmetamyelocytes) > 1% indicates that a LEFT SHIFT is Present. Performed By: #### L 500.4050, L100.0100, L503.6620 ####[facility] [address] [place], [address] Lymphocytes/100 WBC (Bld) 35.6 % Normal 19-41 [facility] Comment on above: Performed By: #### L 500.4050, L100.0100, L503.6620 ####[facility] [address] [place], [address] MCH (RBC) [Entitic mass] 24.8 pg Low 27.0-32.0 [facility] Comment on above: Performed By: #### L 500.4050, L100.0100, L503.6620 ####[facility] [address] [place], [address] MCHC (RBC) [Mass/Vol] 30.3 g/dL Low 32-36 [facility] Comment on above: Performed By: #### L 500.4050, L100.0100, L503.6620 ####[facility] [address] [place], [address] MCV (RBC) [Entitic vol] 81.8 fL Normal 81-99 [facility] Comment on above: Performed By: #### L 500.4050, L100.0100, L503.6620 ####[facility] [address] [place], [address] Monocytes/100 WBC (Bld) 9.9 % Normal 0-10 [facility] Comment on above: Performed By: #### L 500.4050, L100.0100, L503.6620 ####[facility] [address] [place], [address] Neutrophils/100 WBC (Bld) 50.0 % Normal 47-70 [facility] Comment on above: Performed By: #### L 500.4050, L100.0100, L503.6620 ####[facility] [address] [place], [address] Nucleated RBC (Bld) [#/Vol] 0 10*3/uL Normal 0-5 [facility] Comment on above: Performed By: #### L 500.4050, L100.0100, L503.6620 ####[facility] [address] [place], [address] Platelet mean volume (Bld) [Entitic vol] 9.9 fL Normal 6.2-12.0 [facility] Comment on above: Performed By: #### L 500.4050, L100.0100, L503.6620 ####[facility] [address] [place], [address] Platelets (Bld) [#/Vol] 268 10*3/uL Normal 150-450 [facility] Comment on above: Performed By: #### L 500.4050, L100.0100, L503.6620 ####[facility] [address] [place], [address] RBC (Bld) [#/Vol] 4.72 10*6/uL Normal 4.2-5.[address] [facility] Comment on above: Performed By: #### L 500.4050, L100.0100, L503.6620 ####[facility] [address] [place], [address] RDW SD 58.1 fl High 35.1-43.9 [facility] Comment on above: Performed By: #### L 500.4050, L100.0100, L503.6620 ####[facility] [address] [place], [address] WBC (Bld) [#/Vol] 4.9 10*3/uL Normal 4.4-11.0 [facility] Comment on above: Performed By: #### L 500.4050, L100.0100, L503.6620 ####[facility] [address] [place], [address] Carbon dioxide measurementOr dered By: Xiang Rogers on 01-31-2024 CO2 [Moles/Vol] 31.0 mmol/L 21.0-32.0 [facility] Chloride measurementOrdered By: Xiang Rogers on 01-31-2024 Chloride [Moles/Vol] 105 mmol/L 98-107 [facility] Comprehensive Metabolic Prof ilon 01-31-2024 Albumin [Mass/Vol] 3.6 g/dL Normal 3.2-5.0 [facility] Comment on above: Performed By: #### L 500.4050, L100.0100, L503.6620 ####[facility] [address] [place], [address] Albumin/Globulin [Mass ratio] 1.1 {ratio} Normal 0.9-2.4 [facility] Comment on above: Performed By: #### L 500.4050, L100.0100, L503.6620 ####[facility] [address] [place], [address] ALK P 107 U/L Normal 45-117 [facility] Comment on above: Performed By: #### L 500.4050, L100.0100, L503.6620 ####[facility] [address] [place], [address] ALT [Catalytic activity/Vol] 23 U/L Normal 13-56 [facility] Comment on above: Performed By: #### L 500.4050, L100.0100, L503.6620 ####[facility] [address] [place], [address] AST [Catalytic activity/Vol] 18 U/L Normal 15-37 [facility] Comment on above: Performed By: #### L 500.4050, L100.0100, L503.6620 ####[facility] [address] [place], [address] Bilirubin [Mass/Vol] 0.50 mg/dL Normal 0.20-1.00 [facility] Comment on above: Result Comment: For patients on eltrombopag therapy, use of Dimension [place] TBIL is not recommended. Performed By: #### L 500.4050, L100.0100, [id number] ####[facility] [address] [place], [address] BUN/CRE 12.9 RATIO Normal 10-20 [facility] Comment on above: Performed By: #### L 500.4050, L100.0100, [id number] ####[facility] [address] [place], [address] CA,Total 9.6 mg/dL Normal 8.5-10.1 [facility] Comment on above: Performed By: #### L 500.4050, L100.0100, [id number] ####[facility] [address] [place], [address] Chloride [Moles/Vol] 105 mmol/L Normal 98-107 [facility] Comment on above: Performed By: #### L 500.4050, L100.0100, [id number] ####[facility] [address] [place], [address] CO2 [Moles/Vol] 31.0 mmol/L Normal 21.0-32.0 [facility] Comment on above: Performed By: #### L 500.4050, L100.0100, L503.6620 ####[facility] [address] [place], [address] Creatinine [Mass/Vol] 0.70 mg/dL Normal 0.55-1.02 [facility] Comment on above: Result Comment: The validity of the calculated GFR GFRAA in patients over70 years has not been determined. Clinical correlation isessential. Performed By: #### L 500.4050, L100.0100, L503.6620 ####[facility] [address] [place], [address] EST GFR - AA 109 mL/min Normal >60 [facility] Comment on above: Result Comment: Afri can Andorran GFR Calc Performed By: #### L 500.4050, L100.0100, L503.6620 ####[facility] [address] [place], [address] GAP 6 Normal 5-15 [facility] Comment on above: Performed By: #### L 500.4050, L100.0100, L503.6620 ####[facility] [address] [place], [address] GFR/1.73 sq M.predicted among non-blacks MDRD (S/P/Bld) [Vol rate/Area] 90 mL/min/{1.73_m2} Normal >60 [facility] Comment on above: Result Comment: Non- GFR Calc Performed By: #### L 500.4050, L100.0100, L503.6620 ####[facility] [address] [place], [address] Globulin (S) [Mass/Vol] 3.3 g/dL Normal 2.2-4.2 [facility] Comment on above: Performed By: #### L 500.4050, L100.0100, L503.6620 ####[facility] [address] [place], [address] Glucose [Mass/Vol] 216 mg/dL High 74-106 [facility] Comment on above: Result Comment: Gluc ose result greater than or equal to 200 mg/dLsuggests DIABETES MELLITUS per A.D.A. criteria. Performed By: #### L 500.4050, L100.0100, L503.6620 ####[facility] [address] [place], [address] Potassium [Moles/Vol] 3.1 mmol/L Low 3.5-5.1 [facility] Comment on above: Performed By: #### L 500.4050, L100.0100, L503.6620 ####[facility] [address] [place], [address] Sodium [Moles/Vol] 142 mmol/L Normal 136-145 [facility] Comment on above: Performed By: #### L 500.4050, L100.0100, L503.6620 ####[facility] [address] [place], [address] T PROT 6.9 g/dL Normal 6.4-8.2 [facility] Comment on above: Performed By: #### L 500.4050, L100.0100, L503.6620 ####[facility] [address] [place], [address] Urea nitrogen [Mass/Vol] 9 mg/dL Normal 7-18 [facility] Comment on above: Performed By: #### L 500.4050, L100.0100, L503.6620 ####[facility] [address] [place], [address] Eosinophil percentageOrdered By: Xiang Rogers on 01-31-2024 Eosinophils/100 WBC (Bld) 3.3 % 0-5 [facility] Erythrocyte distribution wid th ratioOrdered By: Xiang Rogers on 01-31-2024 Erythrocyte distribution width (RBC) [Ratio] 20.0 % High 11.6-14.6 [facility] Erythrocyte distribution wid th standard deviationOrdered By: Xiang Rogers on 01-31-2024 Erythrocyte distribution width (RBC) [Entitic vol] 58.1 fL High 35.1-43.9 [facility] Estimated glomerular filtrat ion rate (GFR) AmericanOrdered By: Xiang Rogers on 01-31-2024 Estimated GFR (MDRD) Amer 109 mL/min >60 [facility] Comment on above: GFR Calc Glomerular filtration rate ( GFR) estimationOrdered By: Xiang Rogers on 01-31-2024 Estimated GFR (MDRD) Non-Af Amer 90 mL/min >60 [facility] Comment on above: Non- GFR Calc Glucose measurementOrdered B y: Xiang Rogers on 01-31-2024 Glucose [Mass/Vol] 216 mg/dL High 74-106 [facility] Comment on above: Glucose result great er than or equal to 200 mg/dLsuggests DIABETES MELLITUS per A.D.A. criteria. Hematocrit Auto (Bld) [Volum e fraction]Ordered By: Xiang Rogers on 01-31-2024 Hematocrit (Bld) [Volume fraction] 38.6 % 37-47 [facility] Hemoglobin measurementOrdere d By: Xiang Rogers on 01-31-2024 Hemoglobin (Bld) [Mass/Vol] 11.7 g/dL Low 12.0-15.0 [facility] Immature granulocytes/100 WB C Auto (Bld)Ordered By: Xiang Rogers on 01-31-2024 Immature granulocytes/100 WBC (Bld) 0.200 % 0.0-0.9 [facility] Comment on above: IG% - Immature Granu locytes (promyelocytes, myelocytes and metamyelocytes) > 1% indicates that a LEFT SHIFT is Present. Laboratory - Chemistry and C hemistry - challengeOrdered By: Xiang Rogers on 01-31-2024 AST [Catalytic activity/Vol] 18 U/L 15-37 [facility] Lymphocytes Auto (Unsp spec) [#/Vol]Ordered By: Xiang Rogers on 01-31-2024 Lymphocytes (Bld) [#/Vol] 1.73 10*3/uL 0.83-4.51 [facility] Lymphocytes/100 WBC Auto (Un sp spec)Ordered By: Xiang Rogers on 01-31-2024 Lymphocytes/100 WBC (Bld) 35.6 % 19-41 [facility] MCV (mean corpuscular volume ) determinationOrdered By: Xiang Rogers on 01-31-2024 MCV (RBC) [Entitic vol] 81.8 fL 81-99 [facility] Mean corpuscular hemoglobin (MCH) determinationOrdered By: Xiang Rogers on 01-31-2024 MCH (RBC) [Entitic mass] 24.8 pg Low 27.0-32.0 [facility] Mean corpuscular hemoglobin concentration (MCHC) determinationOrdered By: Xiang Rogers on 01-31-2024 MCHC (RBC) [Mass/Vol] 30.3 g/dL Low 32-36 [facility] Mean platelet volume determi nationOrdered By: Xiang Rogers on 01-31-2024 Platelet mean volume (Bld) [Entitic vol] 9.9 fL 6.2-12.0 [facility] Monocyte percentageOrdered B y: Xiang Rogers on 01-31-2024 Monocytes/100 WBC (Bld) 9.9 % 0-10 [facility] Neutrophil percentageOrdered By: Xiang Rogers on 01-31-2024 Neutrophils/100 WBC (Bld) 50.0 % 47-70 [facility] Nucleated red blood cell per centageOrdered By: Xiang Rogers on 01-31-2024 Nucleated RBC/100 WBC (Bld) [Ratio] 0 % 0-5 [facility] Platelet countOrdered By: Nicole Rogers on 01-31-2024 Platelets (Bld) [#/Vol] 268 10*3/uL 150-450 [facility] Potassium measurementOrdered By: Xiang Rogers on 01-31-2024 Potassium [Moles/Vol] 3.1 mmol/L Low 3.5-5.1 [facility] RBC Auto (Bld) [#/Vol]Ordere d By: Xiang Rogers on 01-31-2024 RBC (Bld) [#/Vol] 4.72 10*6/uL 4.2-5.[address] [facility] Serum anion gap measurementO rdered By: Xiang Rogers on 01-31-2024 Anion gap [Moles/Vol] 6 mmol/L 5-15 [facility] Serum globulin measurementOr dered By: Xiang Rogers on 01-31-2024 Globulin (S) [Mass/Vol] 3.3 g/dL 2.2-4.2 [facility] Serum or plasma alanine mesa otransferase (ALT) measurementOrdered By: Xiang Rogers on 01-31-2024 ALT [Catalytic activity/Vol] 23 U/L 13-56 [facility] Serum or plasma albumin aminta urement (mass/volume)Ordered By: Xiang Rogers on 01-31-2024 Albumin [Mass/Vol] 3.6 g/dL 3.2-5.0 [facility] Serum or plasma alkaline arcelia sphatase measurementOrdered By: Xiang Rogers on 01-31-2024 ALP [Catalytic activity/Vol] 107 U/L 45-117 [facility] Serum or plasma calcium aminta urement (mass/volume)Ordered By: Xiang Rogers on 01-31-2024 Calcium [Mass/Vol] 9.6 mg/dL 8.5-10.1 [facility] Serum or plasma creatinine m easurement (mass/volume)Ordered By: Xiang Rogers on 01-31-2024 Creatinine [Mass/Vol] 0.70 mg/dL 0.55-1.02 [facility] Comment on above: The validity of the calculated GFR & GFRAA in patients over 70 years has not been determined. Clinical correlation is essential. Serum or plasma urea nitroge n measurement (mass/volume)Ordered By: Xiang Rogers on 01-31-2024 Urea nitrogen [Mass/Vol] 9 mg/dL 7-18 [facility] Sodium levelOrdered By: Xiang Rogers on 01-31-2024 Sodium [Moles/Vol] 142 mmol/L 136-145 [facility] Total proteinOrdered By: Florencio Rogers on 01-31-2024 Protein [Mass/Vol] 6.9 g/dL 6.4-8.2 [facility] White blood cell (WBC) count Ordered By: Xiang Rogers on 01-31-2024 WBC (Bld) [#/Vol] 4.9 10*3/uL 4.4-11.0 [facility] CR - History AND Physicalon 01-24-2024 CR - History & Physical Normal [facility] CNPNon 01-20-2024 CNPN Telephone (AGRHEUHWN ) JAYLIN CARROLL ([id number]) 1960 F Date Time Provider Department 01/20/24 ROBERT AFRIAS During your visit today, we recorded the following information about you: Robert Farias MD 01/20/2024 2:58 PM Signed Please let her know labs show anemia Get test done ordered Also stool test MD Sylwia Reis Gail, LPN 01/22/2024 9:27 AM Signed Pt was discharged on Monday after a two day stay at [facility] diagnosed with pneumonia and VA (NSTEMI). Discharge summary in [facility] (care everywhere). Pt had a heart cath done without intervention but was started on plavix. ABX tx has been completed and pt also was diagnosed with anemia and started on oral iron. Pt is to follow up with GI and that appointment will be made with a provider in the [place] area. Pt reports that the stool for [...] severe Date Reviewed: 01/18/2024 Reviewed by: Goldie Bullock, RN - Fully Assessed Primary Visit Diagnosis:Anemia, chronic disease [D63.8] Order(s):IRON AND TIBC [SQIRON] Order #: [id number] FUTURE VITAMIN B12 [SQB12] Order #: [id number] FUTURE FOLATE, SERUM [SQSERFOL] Order #: [id number] FUTURE FERRITIN [SQFERR] Order #: [id number] FUTURE IMMUNOCHEMICAL FECAL OCCULT BLOOD TEST [SQIFOBT] Order #: [id number]. #:[id number] Prescriptions as of 01/22/2024 - hydrOXYchloroQUINE (PLAQUENIL) [...] Encounter Status:Closed by BRYNN FOFANA on 01/22/24 [facility] CBC W Auto Differential pane l (Bld)on 01-18-2024 Basophils (Bld) [#/Vol] 0.05 10*3/uL Normal <0.11 [facility] Comment on above: Order Comment: Speci men Type: BLOOD SPECIMENOrdering Facility: [facility] Address: [address] [place] [address] Performed By: #### 5 7021-8 ####[facility]ORYCLIA [id number] [address] [place] Basophils/100 WBC (Bld) 0.6 % Normal A [facility] Comment on above: Order Comment: Speci men Type: BLOOD SPECIMENOrdering Facility: [facility] Address: [address] [place] [address] Performed By: #### 5 7021-8 ####[facility]ATORYCLIA [id number] [address] [place] Differential cell count method Nom (Bld) Auto Normal [facility] Comment on above: Order Comment: Speci men Type: BLOOD SPECIMENOrdering Facility: [facility] Address: [address] [place] [address] Performed By: #### 5 7021-8 ####[facility]ORATORYCLIA [id number] [place] [address] [place] Eosinophils (Bld) [#/Vol] 0.20 10*3/uL Normal <0.46 [facility] Comment on above: Order Comment: Speci men Type: BLOOD SPECIMENOrdering Facility: [facility] Address: [address] [place] [address] Performed By: #### 5 7021-8 ####[facility]ORYCLIA [id number] [address] [place] Eosinophils/100 WBC (Bld) 2.5 % Normal [facility] Comment on above: Order Comment: Speci men Type: BLOOD SPECIMENOrdering Facility: [facility] Address: [address] [place] [address] Performed By: #### 5 7021-8 ####[facility]ORYCLIA [id number] [address] [place] Erythrocyte distribution width (RBC) [Ratio] 19.1 % High 11.5-15.0 [facility] Comment on above: Order Comment: Speci men Type: BLOOD SPECIMENOrdering Facility: [facility] Address: [address] [place] [address] Performed By: #### 5 7021-8 ####[facility]ORATORYCLIA [id number] [address] [place] Hematocrit (Bld) [Volume fraction] 30.9 % Low 36.0-46.0 [facility] Comment on above: Order Comment: Speci men Type: BLOOD SPECIMENOrdering Facility: [facility] Address: [address] [place] [address] Performed By: #### 5 7021-8 ####[facility]ORATORYCLIA [id number] [address] [place] Hemoglobin (Bld) [Mass/Vol] 9.4 g/dL Low 11.5-15.5 [facility] Comment on above: Order Comment: Speci men Type: BLOOD SPECIMENOrdering Facility: [facility] Address: [address] [place] [address] Performed By: #### 5 7021-8 ####[facility]ORATORYCLIA [id number] [address] [place] Immature granulocytes (Bld) [#/Vol] 0.33 10*3/uL High <0.10 [facility] Comment on above: Order Comment: Speci men Type: BLOOD SPECIMENOrdering Facility: [facility] Address: [address] [place] [address] Performed By: #### 5 7021-8 ####[facility] LABORATORYCLIA [id number] [address] Immature granulocytes/100 WBC (Bld) 4.1 % Normal [facility] Comment on above: Order Comment: Speci men Type: BLOOD SPECIMENOrdering Facility: [facility] Address: [address] [place] [address] Performed By: #### 5 7021-8 ####[facility]ORATORYCLIA [id number] [address] OF [facility] Lymphocytes (Bld) [#/Vol] 1.27 10*3/uL Normal 1.00-4.00 [facility] Comment on above: Order Comment: Speci men Type: BLOOD SPECIMENOrdering Facility: [facility] Address: [address] [place] [address] Performed By: #### 5 7021-8 ####[facility]ORATORYCLIA [id number] [address] Lymphocytes/100 WBC (Bld) 15.8 % Normal [facility] Comment on above: Order Comment: Speci men Type: BLOOD SPECIMENOrdering Facility: [facility] Address: [address] [place] [address] Performed By: #### 5 7021-8 ####[facility]ORATORYCLIA [id number] [address] OF [facility] MCH (RBC) [Entitic mass] 24.6 pg Low 26.0-34.0 [facility] Comment on above: Order Comment: Speci men Type: BLOOD SPECIMENOrdering Facility: [facility] Address: [address] [place] [address] Performed By: #### 5 7021-8 ####[facility]ORATORYCLIA [id number] [address] [place] MCHC (RBC) [Mass/Vol] 30.4 g/dL Low 30.5-36.0 [facility] Comment on above: Order Comment: Speci men Type: BLOOD SPECIMENOrdering Facility: [facility] Address: [address] [place] [address] Performed By: #### 5 7021-8 ####[facility] LABORATORYCLIA [id number] [address] [place] MCV (RBC) [Entitic vol] 80.9 fL Normal 80.0-100.0 [facility] Comment on above: Order Comment: Speci men Type: BLOOD SPECIMENOrdering Facility: [facility] Address: [address] [place] [address] Performed By: #### 5 7021-8 ####[facility]ORATORYCLIA [id number] [address] [place] Monocytes (Bld) [#/Vol] 0.24 10*3/uL Normal <0.87 [facility] Comment on above: Order Comment: Speci men Type: BLOOD SPECIMENOrdering Facility: [facility] Address: [address] [place] [address] Performed By: #### 5 7021-8 ####[facility]ORATORYCLIA [id number] [address] [place] Monocytes/100 WBC (Bld) 3.0 % Normal A [facility] Comment on above: Order Comment: Speci men Type: BLOOD SPECIMENOrdering Facility: [facility] Address: [address] [place] [address] Performed By: #### 5 7021-8 ####[facility]ORATORYCLIA [id number] [address] [place] Neutrophils (Bld) [#/Vol] 5.94 10*3/uL Normal 1.45-7.50 [facility] Comment on above: Order Comment: Speci men Type: BLOOD SPECIMENOrdering Facility: [facility] Address: [address] [place] [address] Performed By: #### 5 7021-8 ####[facility]ORATORYCLIA [id number] [address] [place] Neutrophils/100 WBC (Bld) 74.0 % Normal [facility] Comment on above: Order Comment: Speci men Type: BLOOD SPECIMENOrdering Facility: [facility] Address: [address] [place] [address] Performed By: #### 5 7021-8 ####[facility]ATORYCLIA [id number] [place] [address] [place] Nucleated RBC (Bld) [#/Vol] 10*3/uL Normal <0.01 [facility] Comment on above: Order Comment: Speci men Type: BLOOD SPECIMENOrdering Facility: [facility] Address: [address] [place] [address] Performed By: #### 5 7021-8 ####[facility]ORATORYCLIA [id number] [address] STATES OF [facility] Nucleated RBC/100 WBC (Bld) [Ratio] 0.0 /100 WBC Normal [facility] Comment on above: Order Comment: Speci men Type: BLOOD SPECIMENOrdering Facility: [facility] Address: [address] [place] [address] Performed By: #### 5 7021-8 ####[facility]ORATORYCLIA [id number] [address] [place] Platelet mean volume (Bld) [Entitic vol] 9.5 fL Normal 9.0-12.7 [facility] Comment on above: Order Comment: Speci men Type: BLOOD SPECIMENOrdering Facility: [facility] Address: [address] [place] [address] Performed By: #### 5 7021-8 ####[facility]ORATORYCLIA [id number] [address] [place] Platelets (Bld) [#/Vol] 352 10*3/uL Normal 150-400 [facility] Comment on above: Order Comment: Speci men Type: BLOOD SPECIMENOrdering Facility: [facility] Address: [address] [place] [address] Performed By: #### 5 7021-8 ####[facility]ORATORYCLIA [id number] [address] [place] RBC (Bld) [#/Vol] 3.82 10*6/uL Low 3.90-5.20 [facility] Comment on above: Order Comment: Speci men Type: BLOOD SPECIMENOrdering Facility: [facility] Address: [address] [place] [address] Performed By: #### 5 7021-8 ####[facility]ORATORYCLIA [id number] [place] [id number] [place] WBC (Bld) [#/Vol] 8.03 10*3/uL Normal 3.70-11.00 [facility] Comment on above: Order Comment: Speci men Type: BLOOD SPECIMENOrdering Facility: [facility] Address: [address] [place] [address] Performed By: #### 5 7021-8 ####[facility]ORATORYCLIA [id number] [address] OF [facility] Comprehensive metabolic 2000 panelon 01-18-2024 Albumin [Mass/Vol] 3.6 g/dL Low 3.9-4.9 [facility] Comment on above: Order Comment: Speci men Type: BLOOD SPECIMENOrdering Facility: [facility] Address: [address] [place] [address] Performed By: #### 2 4323-8 ####[facility]ORATORYCLIA [id number] [address] [place] ALP [Catalytic activity/Vol] 101 U/L Normal 34-123 [facility] Comment on above: Order Comment: Speci men Type: BLOOD SPECIMENOrdering Facility: [facility] Address: [address] [place] [address] Performed By: #### 2 4323-8 ####[facility]ORATORYCLIA [id number] [address] [place] ALT With P-5'-P [Catalytic activity/Vol] 27 U/L Normal 7-38 [facility] Comment on above: Order Comment: Speci men Type: BLOOD SPECIMENOrdering Facility: [facility] Address: [address] [place] [address] Performed By: #### 2 4323-8 ####[facility]ORATORYCLIA [id number] [address] [place] Anion gap [Moles/Vol] 14 mmol/L Normal 8-15 [facility] Comment on above: Order Comment: Speci men Type: BLOOD SPECIMENOrdering Facility: [facility] Address: [address] [place] [address] Performed By: #### 2 4323-8 ####[facility]ORYCLIA [id number] [place] [address] [place] AST With P-5'-P [Catalytic activity/Vol] 23 U/L Normal 13-35 [facility] Comment on above: Order Comment: Speci men Type: BLOOD SPECIMENOrdering Facility: [facility] Address: [address] [place] [address] Performed By: #### 2 4323-8 ####[facility]ORYCLIA [id number] [place] [address] [place] Bilirubin [Mass/Vol] 0.3 mg/dL Normal 0.2-1.3 [facility] Comment on above: Order Comment: Speci men Type: BLOOD SPECIMENOrdering Facility: [facility] Address: [address] [place] [address] Performed By: #### 2 4323-8 ####[facility]ORYCLIA [id number] [place] [address] [place] Calcium [Mass/Vol] 9.2 mg/dL Normal 8.5-10.2 [facility] Comment on above: Order Comment: Speci men Type: BLOOD SPECIMENOrdering Facility: [facility] Address: [address] [place] [address] Performed By: #### 2 4323-8 ####[facility]ORYCLIA [id number] [place] [address] [place] Chloride [Moles/Vol] 104 mmol/L Normal 98-107 [facility] Comment on above: Order Comment: Speci men Type: BLOOD SPECIMENOrdering Facility: [facility] Address: [address] [place] [address] Performed By: #### 2 4323-8 ####[facility]ORYCLIA [id number] [place] [address] [place] CO2 [Moles/Vol] 23 mmol/L Normal 22-30 [facility] Comment on above: Order Comment: Speci men Type: BLOOD SPECIMENOrdering Facility: [facility] Address: [address] [place] [address] Performed By: #### 2 4323-8 ####[facility] [id number] [address] STATES OF [facility] Creatinine [Mass/Vol] 0.46 mg/dL Low 0.58-0.96 [facility] Comment on above: Order Comment: Speci men Type: BLOOD SPECIMENOrdering Facility: [facility] Address: [address] [place] [address] Performed By: #### 2 4323-8 ####[facility]ORATORYCLIA [id number] [address] Creatinine and Glomerular filtration rate.predicted panel (S/P/Bld) 108 mL/min/1.73m??? Normal >=60 [facility] Comment on above: Order Comment: Speci men Type: BLOOD SPECIMENOrdering Facility: [facility] Address: [address] [place] [address] Result Comment: Glynn mated Glomerular Filtration Rate [...] Performed By: #### 2 4323-8 ####[facility]ORATORYCLIA [id number] [address] [place] Glucose [Mass/Vol] 192 mg/dL High 74-99 [facility] Comment on above: Order Comment: Matt patricio Type: BLOOD SPECIMENOrdering Facility: [facility] Address: [address] [place] [address] Result Comment: The [place] [employer] (ADA) provides guidance for cutoff [...] Standards of Medical Care in Diabetes 2016, [place] [employer]. Diabetes Care. 2016.39(Suppl 1). Performed By: #### 2 4323-8 ####[facility]ORATORYCLIA [id number] [place] [address] [place] Potassium [Moles/Vol] 3.6 mmol/L Low 3.7-5.1 [facility] Comment on above: Order Comment: Matt patricio Type: BLOOD SPECIMENOrdering Facility: [facility] Address: [address] [place] [address] Performed By: #### 2 4323-8 ####[facility] LABORATORYCLIA [id number] [place] [address] [place] Protein [Mass/Vol] 6.3 g/dL Normal 6.3-8.0 [facility] Comment on above: Order Comment: Matt patricio Type: BLOOD SPECIMENOrdering Facility: [facility] Address: [address] [place] [address] Performed By: #### 2 4323-8 ####[facility] LABORATORYCLIA [id number] [address] [place] Sodium [Moles/Vol] 141 mmol/L Normal 136-144 [facility] Comment on above: Order Comment: Latonyai men Type: BLOOD SPECIMENOrdering Facility: [facility] Address: [address] [place] [address] Performed By: #### 2 4323-8 ####[facility] LABORATORYCLIA [id number] [place] [address] [place] Urea nitrogen [Mass/Vol] 10 mg/dL Normal 7-21 [facility] Comment on above: Order Comment: Latonyai men Type: BLOOD SPECIMENOrdering Facility: [facility] Address: [address] [place] [address] Performed By: #### 2 4323-8 ####[facility] LABORATORYCLIA [id number] [place] [address] [place] CBC W/Diff, Automatedon 11- Absolute Neut Normal 2.0-7.7 [facility] Comment on above: Result Comment: Canc elled via OM: Order cancelled - Patient discharged Performed By: #### L 500.4050, L100.0100 ####[facility] [address] [place], [address] HCT Normal 37-47 [facility] Comment on above: Result Comment: Canc elled via OM: Order cancelled - Patient discharged Performed By: #### L 500.4050, L100.0100 ####[facility] [address] [place], [address] HGB Normal 12.0-15.0 [facility] Comment on above: Result Comment: Canc elled via OM: Order cancelled - Patient discharged Performed By: #### L 500.4050, L100.0100 ####[facility] [address] [place], [address] MCH Normal 27.0-32.0 [facility] Comment on above: Result Comment: Canc elled via OM: Order cancelled - Patient discharged Performed By: #### L 500.4050, L100.0100 ####[facility] [address] [place], [address] MCHC Normal 32-36 [facility] Comment on above: Result Comment: Canc elled via OM: Order cancelled - Patient discharged Performed By: #### L 500.4050, L100.0100 ####[facility] [address] [place], [address] MCV Normal 81-99 [facility] Comment on above: Result Comment: Canc elled via OM: Order cancelled - Patient discharged Performed By: #### L 500.4050, L100.0100 ####[facility] [address] [place], [address] NEUT% Normal 47-70 [facility] Comment on above: Result Comment: Canc elled via OM: Order cancelled - Patient discharged Performed By: #### L 500.4050, L100.0100 ####[facility] [address] [place], [address] PLT Normal 150-450 [facility] Comment on above: Result Comment: Canc elled via OM: Order cancelled - Patient discharged Performed By: #### L 500.4050, L100.0100 ####[facility] [address] [place], [address] RBC Normal 4.2-5.4 [facility] Comment on above: Result Comment: Canc elled via OM: Order cancelled - Patient discharged Performed By: #### L 500.4050, L100.0100 ####[facility] [address] [place], [address] RDW CV Normal 11.6-14.6 [facility] Comment on above: Result Comment: Canc elled via OM: Order cancelled - Patient discharged Performed By: #### L 500.4050, L100.0100 ####[facility] [address] [place], [address] RDW SD Normal 35.1-43.9 [facility] Comment on above: Result Comment: Canc elled via OM: Order cancelled - Patient discharged Performed By: #### L 500.4050, L100.0100 ####[facility] [address] [place], [address] WBC Normal 4.4-11.0 [facility] Comment on above: Result Comment: Canc elled via OM: Order cancelled - Patient discharged Performed By: #### L 500.4050, L100.0100 ####[facility] [address] [place], [address] Comprehensive Metabolic Prof juan carlos 01-16-2024 ALB Normal 3.2-5.0 [facility] Comment on above: Result Comment: Canc elled via OM: Order cancelled - Patient discharged Performed By: #### L 500.4050, L100.0100 ####[facility] [address] [place], [address] ALK P Normal 45-117 [facility] Comment on above: Result Comment: Canc elled via OM: Order cancelled - Patient discharged Performed By: #### L 500.4050, L100.0100 ####[facility] [address] [place], [address] ALT Normal 13-56 [facility] Comment on above: Result Comment: Canc elled via OM: Order cancelled - Patient discharged Performed By: #### L 500.4050, L100.0100 ####[facility] [address] [place], [address] AST Normal 15-37 [facility] Comment on above: Result Comment: Canc elled via OM: Order cancelled - Patient discharged Performed By: #### L 500.4050, L100.0100 ####[facility] [address] [place], [address] BUN Normal 7-18 [facility] Comment on above: Result Comment: Canc elled via OM: Order cancelled - Patient discharged Performed By: #### L 500.4050, L100.0100 ####[facility] [address] [place], [address] BUN/CRE Normal 10-20 [facility] Comment on above: Result Comment: Canc elled via OM: Order cancelled - Patient discharged Performed By: #### L 500.4050, L100.0100 ####[facility] [address] [place], [address] CA,Total Normal 8.5-10.1 [facility] Comment on above: Result Comment: Canc elled via OM: Order cancelled - Patient discharged Performed By: #### L 500.4050, L100.0100 ####[facility] [address] [place], [address] CL Normal 98-107 [facility] Comment on above: Result Comment: Canc elled via OM: Order cancelled - Patient discharged Performed By: #### L 500.4050, L100.0100 ####[facility] [address] [place], [address] CO2 Normal 21.0-32.0 [facility] Comment on above: Result Comment: Canc elled via OM: Order cancelled - Patient discharged Performed By: #### L 500.4050, L100.0100 ####[facility] [address] [place], [address] CREAT,SERUM Normal 0.55-1.02 [facility] Comment on above: Result Comment: Canc elled via OM: Order cancelled - Patient discharged Performed By: #### L 500.4050, L100.0100 ####[facility] [address] [place], [address] EST GFR Normal >60 [facility] Comment on above: Result Comment: Canc elled via OM: Order cancelled - Patient discharged Performed By: #### L 500.4050, L100.0100 ####[facility] [address] [place], [address] EST GFR - AA Normal >60 [facility] Comment on above: Result Comment: Canc elled via OM: Order cancelled - Patient discharged Performed By: #### L 500.4050, L100.0100 ####[facility] [address] [place], [address] GAP Normal 5-15 [facility] Comment on above: Result Comment: Canc elled via OM: Order cancelled - Patient discharged Performed By: #### L 500.4050, L100.0100 ####[facility] [address] [place], [address] GLU Normal 74-106 [facility] Comment on above: Result Comment: Canc elled via OM: Order cancelled - Patient discharged Performed By: #### L 500.4050, L100.0100 ####[facility] [address] [place], [address] Potassium Normal 3.5-5.1 [facility] Comment on above: Result Comment: Canc elled via OM: Order cancelled - Patient discharged Performed By: #### L 500.4050, L100.0100 ####[facility] [address] [place], [address] T BILI Normal 0.20-1.00 [facility] Comment on above: Result Comment: Canc elled via OM: Order cancelled - Patient discharged Performed By: #### L 500.4050, L100.0100 ####[facility] [address] [place], [address] T PROT Normal 6.4-8.2 [facility] Comment on above: Result Comment: Canc elled via OM: Order cancelled - Patient discharged Performed By: #### L 500.4050, L100.0100 ####[facility] [address] [place], [address] Comprehensive Metabolic Profil Normal 136-145 [facility] Comment on above: Result Comment: Canc elled via OM: Order cancelled - Patient discharged Performed By: #### L 500.4050, L100.0100 ####[facility] [address] [place], [address] CBC W/Diff, Automatedon 11-1 Absolute Neut Normal 2.0-7.7 [facility] Comment on above: Result Comment: Canc elled via OM: Order cancelled - Patient discharged Performed By: #### L 500.4050, L100.0100 ####[facility] [address] [place], [address] HCT Normal 37-47 [facility] Comment on above: Result Comment: Canc elled via OM: Order cancelled - Patient discharged Performed By: #### L 500.4050, L100.0100 ####[facility] [address] [place], [address] HGB Normal 12.0-15.0 [facility] Comment on above: Result Comment: Canc elled via OM: Order cancelled - Patient discharged Performed By: #### L 500.4050, L100.0100 ####[facility] [address] [place], [address] MCH Normal 27.0-32.0 [facility] Comment on above: Result Comment: Canc elled via OM: Order cancelled - Patient discharged Performed By: #### L 500.4050, L100.0100 ####[facility] [address] [place], [address] MCHC Normal 32-36 [facility] Comment on above: Result Comment: Canc elled via OM: Order cancelled - Patient discharged Performed By: #### L 500.4050, L100.0100 ####[facility] [address] [place], [address] MCV Normal 81-99 [facility] Comment on above: Result Comment: Canc elled via OM: Order cancelled - Patient discharged Performed By: #### L 500.4050, L100.0100 ####[facility] [address] [place], [address] NEUT% Normal 47-70 [facility] Comment on above: Result Comment: Canc elled via OM: Order cancelled - Patient discharged Performed By: #### L 500.4050, L100.0100 ####[facility] [address] [place], [address] PLT Normal 150-450 [facility] Comment on above: Result Comment: Canc elled via OM: Order cancelled - Patient discharged Performed By: #### L 500.4050, L100.0100 ####[facility] [address] [place], [address] RBC Normal 4.2-5.4 [facility] Comment on above: Result Comment: Canc elled via OM: Order cancelled - Patient discharged Performed By: #### L 500.4050, L100.0100 ####[facility] [address] [place], [address] RDW CV Normal 11.6-14.6 [facility] Comment on above: Result Comment: Canc elled via OM: Order cancelled - Patient discharged Performed By: #### L 500.4050, L100.0100 ####[facility] [address] [place], [address] RDW SD Normal 35.1-43.9 [facility] Comment on above: Result Comment: Canc elled via OM: Order cancelled - Patient discharged Performed By: #### L 500.4050, L100.0100 ####[facility] [address] [place], [address] WBC Normal 4.4-11.0 [facility] Comment on above: Result Comment: Canc elled via OM: Order cancelled - Patient discharged Performed By: #### L 500.4050, L100.0100 ####[facility] [address] [place], [address] Comprehensive Metabolic Prof ilon 01-15-2024 ALB Normal 3.2-5.0 [facility] Comment on above: Result Comment: Canc elled via OM: Order cancelled - Patient discharged Performed By: #### L 500.4050, L100.0100 ####[facility] [address] [place], [address] ALK P Normal 45-117 [facility] Comment on above: Result Comment: Canc elled via OM: Order cancelled - Patient discharged Performed By: #### L 500.4050, L100.0100 ####[facility] [address] [place], [address] ALT Normal 13-56 [facility] Comment on above: Result Comment: Canc elled via OM: Order cancelled - Patient discharged Performed By: #### L 500.4050, L100.0100 ####[facility] [address] [place], [address] AST Normal 15-37 [facility] Comment on above: Result Comment: Canc elled via OM: Order cancelled - Patient discharged Performed By: #### L 500.4050, L100.0100 ####[facility] [address] [place], [address] BUN Normal 7-18 [facility] Comment on above: Result Comment: Canc elled via OM: Order cancelled - Patient discharged Performed By: #### L 500.4050, L100.0100 ####[facility] [address] [place], [address] BUN/CRE Normal 10-20 [facility] Comment on above: Result Comment: Canc elled via OM: Order cancelled - Patient discharged Performed By: #### L 500.4050, L100.0100 ####[facility] [address] [place], [address] CA,Total Normal 8.5-10.1 [facility] Comment on above: Result Comment: Canc elled via OM: Order cancelled - Patient discharged Performed By: #### L 500.4050, L100.0100 ####[facility] [address] [place], [address] CL Normal 98-107 [facility] Comment on above: Result Comment: Canc elled via OM: Order cancelled - Patient discharged Performed By: #### L 500.4050, L100.0100 ####[facility] [address] [place], [address] CO2 Normal 21.0-32.0 [facility] Comment on above: Result Comment: Canc elled via OM: Order cancelled - Patient discharged Performed By: #### L 500.4050, L100.0100 ####[facility] [address] [place], [address] CREAT,SERUM Normal 0.55-1.02 [facility] Comment on above: Result Comment: Canc elled via OM: Order cancelled - Patient discharged Performed By: #### L 500.4050, L100.0100 ####[facility] [address] [place], [address] EST GFR Normal >60 [facility] Comment on above: Result Comment: Canc elled via OM: Order cancelled - Patient discharged Performed By: #### L 500.4050, L100.0100 ####[facility] [address] [place], [address] EST GFR - AA Normal >60 [facility] Comment on above: Result Comment: Canc elled via OM: Order cancelled - Patient discharged Performed By: #### L 500.4050, L100.0100 ####[facility] [address] [place], [address] GAP Normal 5-15 [facility] Comment on above: Result Comment: Canc elled via OM: Order cancelled - Patient discharged Performed By: #### L 500.4050, L100.0100 ####[facility] [address] [place], [address] GLU Normal 74-106 [facility] Comment on above: Result Comment: Canc elled via OM: Order cancelled - Patient discharged Performed By: #### L 500.4050, L100.0100 ####[facility] [address] [place], [address] Potassium Normal 3.5-5.1 [facility] Comment on above: Result Comment: Canc elled via OM: Order cancelled - Patient discharged Performed By: #### L 500.4050, L100.0100 ####[facility] [address] [place], [address] T BILI Normal 0.20-1.00 [facility] Comment on above: Result Comment: Canc elled via OM: Order cancelled - Patient discharged Performed By: #### L 500.4050, L100.0100 ####[facility] [address] [place], [address] T PROT Normal 6.4-8.2 [facility] Comment on above: Result Comment: Canc elled via OM: Order cancelled - Patient discharged Performed By: #### L 500.4050, L100.0100 ####[facility] [address] [place], [address] Comprehensive Metabolic Profil Normal 136-145 [facility] Comment on above: Result Comment: Canc elled via OM: Order cancelled - Patient discharged Performed By: #### L 500.4050, L100.0100 ####[facility] [address] [place], [address] CBC W/Diff, Automatedon 11-1 0-2023 Absolute Neut Normal 2.0-7.7 [facility] Comment on above: Result Comment: Canc elled via OM: Order cancelled - Patient discharged Performed By: #### L 100.0100, L500.4050 ####[facility] [address] [place], [address] HCT Normal 37-47 [facility] Comment on above: Result Comment: Canc elled via OM: Order cancelled - Patient discharged Performed By: #### L 100.0100, L500.4050 ####[facility] [address] [place], [address] HGB Normal 12.0-15.0 [facility] Comment on above: Result Comment: Canc elled via OM: Order cancelled - Patient discharged Performed By: #### L 100.0100, L500.4050 ####[facility] [address] [place], [address] MCH Normal 27.0-32.0 [facility] Comment on above: Result Comment: Canc elled via OM: Order cancelled - Patient discharged Performed By: #### L 100.0100, L500.4050 ####[facility] [address] [place], [address] MCHC Normal 32-36 [facility] Comment on above: Result Comment: Canc elled via OM: Order cancelled - Patient discharged Performed By: #### L 100.0100, L500.4050 ####[facility] [address] [place], [address] MCV Normal 81-99 [facility] Comment on above: Result Comment: Canc elled via OM: Order cancelled - Patient discharged Performed By: #### L 100.0100, L500.4050 ####[facility] [address] [place], [address] NEUT% Normal 47-70 [facility] Comment on above: Result Comment: Canc elled via OM: Order cancelled - Patient discharged Performed By: #### L 100.0100, L500.4050 ####[facility] [address] [place], [address] PLT Normal 150-450 [facility] Comment on above: Result Comment: Canc elled via OM: Order cancelled - Patient discharged Performed By: #### L 100.0100, L500.4050 ####[facility] [address] [place], [address] RBC Normal 4.2-5.4 [facility] Comment on above: Result Comment: Canc elled via OM: Order cancelled - Patient discharged Performed By: #### L 100.0100, L500.4050 ####[facility] [address] [place], [address] RDW CV Normal 11.6-14.6 [facility] Comment on above: Result Comment: Canc elled via OM: Order cancelled - Patient discharged Performed By: #### L 100.0100, L500.4050 ####[facility] [address] [place], [address] RDW SD Normal 35.1-43.9 [facility] Comment on above: Result Comment: Canc elled via OM: Order cancelled - Patient discharged Performed By: #### L 100.0100, L500.4050 ####[facility] [address] [place], [address] WBC Normal 4.4-11.0 [facility] Comment on above: Result Comment: Canc elled via OM: Order cancelled - Patient discharged Performed By: #### L 100.0100, L500.4050 ####[facility] [address] [place], [address] Comprehensive Metabolic Prof ilon 01-14-2024 ALB Normal 3.2-5.0 [facility] Comment on above: Result Comment: Canc elled via OM: Order cancelled - Patient discharged Performed By: #### L 100.0100, L500.4050 ####[facility] [address] [place], [address] ALK P Normal 45-117 [facility] Comment on above: Result Comment: Canc elled via OM: Order cancelled - Patient discharged Performed By: #### L 100.0100, L500.4050 ####[facility] [address] [place], [address] ALT Normal 13-56 [facility] Comment on above: Result Comment: Canc elled via OM: Order cancelled - Patient discharged Performed By: #### L 100.0100, L500.4050 ####[facility] [address] [place], [address] AST Normal 15-37 [facility] Comment on above: Result Comment: Canc elled via OM: Order cancelled - Patient discharged Performed By: #### L 100.0100, L500.4050 ####[facility] [address] [place], [address] BUN Normal 7-18 [facility] Comment on above: Result Comment: Canc elled via OM: Order cancelled - Patient discharged Performed By: #### L 100.0100, L500.4050 ####[facility] [address] [place], [address] BUN/CRE Normal 10-20 [facility] Comment on above: Result Comment: Canc elled via OM: Order cancelled - Patient discharged Performed By: #### L 100.0100, L500.4050 ####[facility] [address] [place], [address] CA,Total Normal 8.5-10.1 [facility] Comment on above: Result Comment: Canc elled via OM: Order cancelled - Patient discharged Performed By: #### L 100.0100, L500.4050 ####[facility] [address] [place], [address] CL Normal 98-107 [facility] Comment on above: Result Comment: Canc elled via OM: Order cancelled - Patient discharged Performed By: #### L 100.0100, L500.4050 ####[facility] [address] [place], [address] CO2 Normal 21.0-32.0 [facility] Comment on above: Result Comment: Canc elled via OM: Order cancelled - Patient discharged Performed By: #### L 100.0100, L500.4050 ####[facility] [address] [place], [address] CREAT,SERUM Normal 0.55-1.02 [facility] Comment on above: Result Comment: Canc elled via OM: Order cancelled - Patient discharged Performed By: #### L 100.0100, L500.4050 ####[facility] [address] [place], [address] EST GFR Normal >60 [facility] Comment on above: Result Comment: Canc elled via OM: Order cancelled - Patient discharged Performed By: #### L 100.0100, L500.4050 ####[facility] [address] [place], [address] EST GFR - AA Normal >60 [facility] Comment on above: Result Comment: Canc elled via OM: Order cancelled - Patient discharged Performed By: #### L 100.0100, L500.4050 ####[facility] [address] [place], [address] GAP Normal 5-15 [facility] Comment on above: Result Comment: Canc elled via OM: Order cancelled - Patient discharged Performed By: #### L 100.0100, L500.4050 ####[facility] [address] [place], [address] GLU Normal 74-106 [facility] Comment on above: Result Comment: Canc elled via OM: Order cancelled - Patient discharged Performed By: #### L 100.0100, L500.4050 ####[facility] [address] [place], [address] Potassium Normal 3.5-5.1 [facility] Comment on above: Result Comment: Canc elled via OM: Order cancelled - Patient discharged Performed By: #### L 100.0100, L500.4050 ####[facility] [address] [place], [address] T BILI Normal 0.20-1.00 [facility] Comment on above: Result Comment: Canc elled via OM: Order cancelled - Patient discharged Performed By: #### L 100.0100, L500.4050 ####[facility] [address] [place], [address] T PROT Normal 6.4-8.2 [facility] Comment on above: Result Comment: Canc elled via OM: Order cancelled - Patient discharged Performed By: #### L 100.0100, L500.4050 ####[facility] [address] [place], [address] Comprehensive Metabolic Profil Normal 136-145 [facility] Comment on above: Result Comment: Canc elled via OM: Order cancelled - Patient discharged Performed By: #### L 100.0100, L500.4050 ####[facility] [address] [place], [address] Bedside Glucoseon 01-13-2024 FINGERSTICK GLU 203 mg/dL High 74-106 [facility] Comment on above: Result Comment: DILIA GEMENT OF PATIENT CARE PER NURSING PROTOCOL Performed By: #### L 501.080 ####[facility] [address] [place], [address] FINGERSTICK GLU 148 mg/dL High 74-106 [facility] Comment on above: Result Comment: DILIA GEMENT OF PATIENT CARE PER NURSING PROTOCOL Performed By: #### L 501.080 ####[facility] [address] [place], [address] CBC W/Diff, Automatedon 11-0 9-4 Absolute Lymph 1.15 X10 3/uL Normal 0.83-4.51 [facility] Comment on above: Performed By: #### L 100.0100 ####[facility] [address] [place], [address] Absolute Neut 5.9 X10 3/uL Normal 2.0-7.7 [facility] Comment on above: Performed By: #### L 100.0100 ####[facility] [address] [place], [address] Basophils/100 WBC (Bld) 0.5 % Normal 0-1 [facility] Comment on above: Performed By: #### L 100.0100 ####[facility] [address] [place], [address] Eosinophils/100 WBC (Bld) 2.0 % Normal 0-5 [facility] Comment on above: Performed By: #### L 100.0100 ####[facility] [address] [place], [address] Erythrocyte distribution width (RBC) [Ratio] 19.1 % High 11.6-14.6 [facility] Comment on above: Performed By: #### L 100.0100 ####[facility] [address] [place], [address] Hematocrit (Bld) [Volume fraction] 27.0 % Low 37-47 [facility] Comment on above: Performed By: #### L 100.0100 ####[facility] [address] [place], [address] Hemoglobin (Bld) [Mass/Vol] 8.2 g/dL Low 12.0-15.0 [facility] Comment on above: Performed By: #### L 100.0100 ####[facility] [address] [place], [address] IG% 3.400 High 0.0-0.9 [facility] Comment on above: Result Comment: IG% - Immature Granulocytes (promyelocytes, myelocytes andmetamyelocytes) > 1% indicates that a LEFT SHIFT is Present. Performed By: #### L 100.0100 ####[facility] [address] [place], [address] Lymphocytes/100 WBC (Bld) 13.5 % Low 19-41 [facility] Comment on above: Performed By: #### L 100.0100 ####[facility] [address] [place], [address] MCH (RBC) [Entitic mass] 24.1 pg Low 27.0-32.0 [facility] Comment on above: Performed By: #### L 100.0100 ####[facility] [address] [place], [address] MCHC (RBC) [Mass/Vol] 30.4 g/dL Low 32-36 [facility] Comment on above: Performed By: #### L 100.0100 ####[facility] [address] [place], [address] MCV (RBC) [Entitic vol] 79.4 fL Low 81-99 [facility] Comment on above: Performed By: #### L 100.0100 ####[facility] [address] [place], [address] Monocytes/100 WBC (Bld) 11.5 % High 0-10 [facility] Comment on above: Performed By: #### L 100.0100 ####[facility] [address] [place], [address] Neutrophils/100 WBC (Bld) 69.1 % Normal 47-70 [facility] Comment on above: Performed By: #### L 100.0100 ####[facility] [address] [place], [address] Nucleated RBC (Bld) [#/Vol] 0.2 10*3/uL Normal 0-5 [facility] Comment on above: Performed By: #### L 100.0100 ####[facility] [address] [place], [address] Platelet mean volume (Bld) [Entitic vol] 9.1 fL Normal 6.2-12.0 [facility] Comment on above: Performed By: #### L 100.0100 ####[facility] [address] [place], [address] Platelets (Bld) [#/Vol] 324 10*3/uL Normal 150-450 [facility] Comment on above: Performed By: #### L 100.0100 ####[facility] [address] [place], [address] RBC (Bld) [#/Vol] 3.40 10*6/uL Low 4.2-5.[address] [facility] Comment on above: Performed By: #### L 100.0100 ####[facility] [address] [place], [address] RDW SD 54.2 fl High 35.1-43.9 [facility] Comment on above: Performed By: #### L 100.0100 ####[facility] [address] [place], [address] WBC (Bld) [#/Vol] 8.5 10*3/uL Normal 4.4-11.0 [facility] Comment on above: Performed By: #### L 100.0100 ####[facility] [address] [place], [address] Comprehensive Metabolic Prof juan carlos 01-13-2024 Albumin [Mass/Vol] 2.3 g/dL Low 3.2-5.0 [facility] Comment on above: Performed By: #### L 501.5200, L500.4050, L501.2300 ####[facility] [address] [place], [address] Albumin/Globulin [Mass ratio] 0.6 {ratio} Low 0.9-2.4 [facility] Comment on above: Performed By: #### L 501.5200, L500.4050, L501.2300 ####[facility] [address] [place], [address] ALK P 98 U/L Normal 45-117 [facility] Comment on above: Performed By: #### L 501.5200, L500.4050, L501.2300 ####[facility] [address] [place], [address] ALT [Catalytic activity/Vol] 20 U/L Normal 13-56 [facility] Comment on above: Performed By: #### L 501.5200, L500.4050, L501.2300 ####[facility] [address] [place], [address] AST [Catalytic activity/Vol] 21 U/L Normal 15-37 [facility] Comment on above: Performed By: #### L 501.5200, L500.4050, L501.2300 ####[facility] [address] [place], [address] Bilirubin [Mass/Vol] 0.30 mg/dL Normal 0.20-1.00 [facility] Comment on above: Result Comment: For patients on eltrombopag therapy, use of Dimension Stanton TBIL is not recommended. Performed By: #### L 501.5200, L500.4050, L501.2300 ####[facility] [address] [place], [address] BUN/CRE 12.9 RATIO Normal 10-20 [facility] Comment on above: Performed By: #### L 501.5200, L500.4050, L501.2300 ####[facility] [address] [place], [address] CA,Total 8.4 mg/dL Low 8.5-10.1 [facility] Comment on above: Performed By: #### L 501.5200, L500.4050, L501.2300 ####[facility] [address] [place], [address] Chloride [Moles/Vol] 111 mmol/L High 98-107 [facility] Comment on above: Performed By: #### L 501.5200, L500.4050, L501.2300 ####[facility] [address] [place], [address] CO2 [Moles/Vol] 25.0 mmol/L Normal 21.0-32.0 [facility] Comment on above: Performed By: #### L 501.5200, L500.4050, L501.2300 ####[facility] [address] [place], [address] Creatinine [Mass/Vol] 0.62 mg/dL Normal 0.55-1.02 [facility] Comment on above: Result Comment: The validity of the calculated GFR GFRAA in patients over70 years has not been determined. Clinical correlation isessential. Performed By: #### L 501.5200, L500.4050, L501.2300 ####[facility] [address] [place], [address] ECRCL 93.75 ml/min Normal [facility] Comment on above: Performed By: #### L 501.5200, L500.4050, L501.2300 ####[facility] [address] [place], [address] EST GFR - AA 125 mL/min Normal >60 [facility] Comment on above: Result Comment: Afri can Andorran GFR Calc Performed By: #### L 501.5200, L500.4050, L501.2300 ####[facility] [address] [place], [address] GAP 5 Normal 5-15 [facility] Comment on above: Performed By: #### L 501.5200, L500.4050, L501.2300 ####[facility] [address] [place], [address] GFR/1.73 sq M.predicted among non-blacks MDRD (S/P/Bld) [Vol rate/Area] 103 mL/min/{1.73_m2} Normal >60 [facility] Comment on above: Result Comment: Non- GFR Calc Performed By: #### L 501.5200, L500.4050, L501.2300 ####[facility] [address] [place], [address] Globulin (S) [Mass/Vol] 3.9 g/dL Normal 2.2-4.2 [facility] Comment on above: Performed By: #### L 501.5200, L500.4050, L501.2300 ####[facility] [address] [place], [address] Glucose [Mass/Vol] 161 mg/dL High 74-106 [facility] Comment on above: Result Comment: Fast ing Glucose result greater than or equal to 126 mg/dLsuggests DIABETES MELLITUS per A.D.A. criteria. Performed By: #### L 501.5200, L500.4050, L501.2300 ####[facility] [address] [place], [address] Potassium [Moles/Vol] 3.2 mmol/L Low 3.5-5.1 [facility] Comment on above: Performed By: #### L 501.5200, L500.4050, L501.2300 ####[facility] [address] [place], [address] Sodium [Moles/Vol] 140 mmol/L Normal 136-145 [facility] Comment on above: Performed By: #### L 501.5200, L500.4050, L501.2300 ####[facility] [address] [place], [address] T PROT 6.2 g/dL Low 6.4-8.2 [facility] Comment on above: Performed By: #### L 501.5200, L500.4050, L501.2300 ####[facility] [address] [place], [address] Urea nitrogen [Mass/Vol] 8 mg/dL Normal 7-18 [facility] Comment on above: Performed By: #### L 501.5200, L500.4050, L501.2300 ####[facility] [address] [place], [address] Discharge Instructionon 11-0 Discharge Instruction Normal [facility] Magnesiumon 01-13-2024 Magnesium [Mass/Vol] 1.8 mg/dL Normal 1.6-2.6 [facility] Comment on above: Order Comment: Comme nts: add to am labs Performed By: #### L 501.5200 ####[facility] [address] [place], [address] Magnesium [Mass/Vol] 1.8 mg/dL Normal 1.6-2.6 [facility] Comment on above: Performed By: #### L 501.5200, L500.4050, L501.2300 ####[facility] [address] [place], [address] Phosphoruson 01-13-2024 Phosphate [Mass/Vol] 2.8 mg/dL Normal 2.5-4.9 [facility] Comment on above: Performed By: #### L 501.5200, L500.4050, L501.2300 ####[facility] [address] [place], [address] 12 Lead EKGon 01-12-2024 12 Lead EKG Normal [facility] Bedside Glucoseon 01-12-2024 FINGERSTICK GLU 196 mg/dL High 74-106 [facility] Comment on above: Result Comment: DILIA GEMENT OF PATIENT CARE PER NURSING PROTOCOL Performed By: #### L 501.080 ####[facility] [address] [place], [address] FINGERSTICK GLU 156 mg/dL High 74-106 [facility] Comment on above: Result Comment: DILIA GEMENT OF PATIENT CARE PER NURSING PROTOCOL Performed By: #### L 501.080 ####[facility] [address] [place], [address] FINGERSTICK GLU 198 mg/dL High 74-106 [facility] Comment on above: Result Comment: DILIA GEMENT OF PATIENT CARE PER NURSING PROTOCOL Performed By: #### L 501.080 ####[facility] [address] [place], [address] CBC W/Diff, Automatedon Absolute Lymph 1.19 X10 3/uL Normal 0.83-4.51 [facility] Comment on above: Performed By: #### L 100.0100 ####[facility] [address] [place], [address] Absolute Neut 7.4 X10 3/uL Normal 2.0-7.7 [facility] Comment on above: Performed By: #### L 100.0100 ####[facility] [address] [place], [address] Basophils/100 WBC (Bld) 0.5 % Normal 0-1 [facility] Comment on above: Performed By: #### L 100.0100 ####[facility] [address] [place], [address] Eosinophils/100 WBC (Bld) 0.8 % Normal 0-5 [facility] Comment on above: Performed By: #### L 100.0100 ####[facility] [address] [place], [address] Erythrocyte distribution width (RBC) [Ratio] 19.1 % High 11.6-14.6 [facility] Comment on above: Performed By: #### L 100.0100 ####[facility] [address] [place], [address] Hematocrit (Bld) [Volume fraction] 28.6 % Low 37-47 [facility] Comment on above: Performed By: #### L 100.0100 ####[facility] [address] [place], [address] Hemoglobin (Bld) [Mass/Vol] 8.4 g/dL Low 12.0-15.0 [facility] Comment on above: Performed By: #### L 100.0100 ####[facility] [address] [place], [address] IG% 2.200 High 0.0-0.9 [facility] Comment on above: Result Comment: IG% - Immature Granulocytes (promyelocytes, myelocytes andmetamyelocytes) > 1% indicates that a LEFT SHIFT is Present. Performed By: #### L 100.0100 ####[facility] [address] [place], [address] Lymphocytes/100 WBC (Bld) 11.7 % Low 19-41 [facility] Comment on above: Performed By: #### L 100.0100 ####[facility] [address] [place], [address] MCH (RBC) [Entitic mass] 23.5 pg Low 27.0-32.0 [facility] Comment on above: Performed By: #### L 100.0100 ####[facility] [address] [place], [address] MCHC (RBC) [Mass/Vol] 29.4 g/dL Low 32-36 [facility] Comment on above: Performed By: #### L 100.0100 ####[facility] [address] [place], [address] MCV (RBC) [Entitic vol] 79.9 fL Low 81-99 [facility] Comment on above: Performed By: #### L 100.0100 ####[facility] [address] [place], [address] Monocytes/100 WBC (Bld) 11.8 % High 0-10 [facility] Comment on above: Performed By: #### L 100.0100 ####[facility] [address] [place], [address] Neutrophils/100 WBC (Bld) 73.0 % High 47-70 [facility] Comment on above: Performed By: #### L 100.0100 ####[facility] [address] [place], [address] Nucleated RBC (Bld) [#/Vol] 0.2 10*3/uL Normal 0-5 [facility] Comment on above: Performed By: #### L 100.0100 ####[facility] [address] [place], [address] Platelet mean volume (Bld) [Entitic vol] 8.8 fL Normal 6.2-12.0 [facility] Comment on above: Performed By: #### L 100.0100 ####[facility] [address] [place], [address] Platelets (Bld) [#/Vol] 338 10*3/uL Normal 150-450 [facility] Comment on above: Performed By: #### L 100.0100 ####[facility] [address] [place], [address] RBC (Bld) [#/Vol] 3.58 10*6/uL Low 4.2-5.[address] [facility] Comment on above: Performed By: #### L 100.0100 ####[facility] [address] [place], [address] RDW SD 53.8 fl High 35.1-43.9 [facility] Comment on above: Performed By: #### L 100.0100 ####[facility] [address] [place], [address] WBC (Bld) [#/Vol] 10.1 10*3/uL Normal 4.4-11.[address] [facility] Comment on above: Performed By: #### L 100.0100 ####[facility] [address] [place], [address] Absolute Lymph 1.67 X10 3/uL Normal 0.83-4.51 [facility] Comment on above: Performed By: #### L 500.4050, L501.9520, L100.0100, L501.2300, L501.5200 ####[facility] [address] [place], [address] Absolute Neut 7.3 X10 3/uL Normal 2.0-7.7 [facility] Comment on above: Performed By: #### L 500.4050, L501.9520, L100.0100, L501.2300, L501.5200 ####[facility] [address] [place], [address] Basophils/100 WBC (Bld) 0.4 % Normal 0-1 [facility] Comment on above: Performed By: #### L 500.4050, L501.9520, L100.0100, L501.2300, L501.5200 ####[facility] [address] [place], [address] Eosinophils/100 WBC (Bld) 1.5 % Normal 0-5 [facility] Comment on above: Performed By: #### L 500.4050, L501.9520, L100.0100, L501.2300, L501.5200 ####[facility] [address] [place], [address] Erythrocyte distribution width (RBC) [Ratio] 19.0 % High 11.6-14.6 [facility] Comment on above: Performed By: #### L 500.4050, L501.9520, L100.0100, L501.2300, L501.5200 ####[facility] [address] [place], [address] Hematocrit (Bld) [Volume fraction] 25.7 % Low 37-47 [facility] Comment on above: Performed By: #### L 500.4050, L501.9520, L100.0100, L501.2300, L501.5200 ####[facility] [address] [place], [address] Hemoglobin (Bld) [Mass/Vol] 7.9 g/dL Low 12.0-15.0 [facility] Comment on above: Performed By: #### L 500.4050, L501.9520, L100.0100, L501.2300, L501.5200 ####[facility] [address] [place], [address] IG% 1.600 High 0.0-0.9 [facility] Comment on above: Result Comment: IG% - Immature Granulocytes (promyelocytes, myelocytes andmetamyelocytes) > 1% indicates that a LEFT SHIFT is Present. Performed By: #### L 500.4050, L501.9520, L100.0100, L501.2300, L501.5200 ####[facility] [address] [place], [address] Lymphocytes/100 WBC (Bld) 16.0 % Low 19-41 [facility] Comment on above: Performed By: #### L 500.4050, L501.9520, L100.0100, L501.2300, L501.5200 ####[facility] [address] [place], [address] MCH (RBC) [Entitic mass] 24.1 pg Low 27.0-32.0 [facility] Comment on above: Performed By: #### L 500.4050, L501.9520, L100.0100, L501.2300, L501.5200 ####[facility] [address] [place], [address] MCHC (RBC) [Mass/Vol] 30.7 g/dL Low 32-36 [facility] Comment on above: Performed By: #### L 500.4050, L501.9520, L100.0100, L501.2300, L501.5200 ####[facility] [address] [place], [address] MCV (RBC) [Entitic vol] 78.4 fL Low 81-99 [facility] Comment on above: Performed By: #### L 500.4050, L501.9520, L100.0100, L501.2300, L501.5200 ####[facility] [address] [place], [address] Monocytes/100 WBC (Bld) 10.8 % High 0-10 [facility] Comment on above: Performed By: #### L 500.4050, L501.9520, L100.0100, L501.2300, L501.5200 ####[facility] [address] [place], [address] Neutrophils/100 WBC (Bld) 69.7 % Normal 47-70 [facility] Comment on above: Performed By: #### L 500.4050, L501.9520, L100.0100, L501.2300, L501.5200 ####[facility] [address] [place], [address] Nucleated RBC (Bld) [#/Vol] 0 10*3/uL Normal 0-5 [facility] Comment on above: Performed By: #### L 500.4050, L501.9520, L100.0100, L501.2300, L501.5200 ####[facility] [address] [place], [address] Platelet mean volume (Bld) [Entitic vol] 9.0 fL Normal 6.2-12.0 [facility] Comment on above: Performed By: #### L 500.4050, L501.9520, L100.0100, L501.2300, L501.5200 ####[facility] [address] [place], [address] Platelets (Bld) [#/Vol] 289 10*3/uL Normal 150-450 [facility] Comment on above: Performed By: #### L 500.4050, L501.9520, L100.0100, L501.2300, L501.5200 ####[facility] [address] [place], [address] RBC (Bld) [#/Vol] 3.28 10*6/uL Low 4.2-5.[address] [facility] Comment on above: Performed By: #### L 500.4050, L501.9520, L100.0100, L501.2300, L501.5200 ####[facility] [address] [place], [address] RDW SD 52.6 fl High 35.1-43.9 [facility] Comment on above: Performed By: #### L 500.4050, L501.9520, L100.0100, L501.2300, L501.5200 ####[facility] [address] [place], [address] WBC (Bld) [#/Vol] 10.5 10*3/uL Normal 4.4-11.[address] [facility] Comment on above: Performed By: #### L 500.4050, L501.9520, L100.0100, L501.2300, L501.5200 ####[facility] [address] [place], [address] CVS/PCIREPORTon 01-12-2024 CVS/PCIREPORT Normal [facility] Comprehensive Metabolic Prof ilon 01-12-2024 Albumin [Mass/Vol] 2.3 g/dL Low 3.2-5.0 [facility] Comment on above: Performed By: #### L 500.4050, L501.9520, L100.0100, L501.2300, L501.5200 ####[facility] [address] [place], [address] Albumin/Globulin [Mass ratio] 0.6 {ratio} Low 0.9-2.4 [facility] Comment on above: Performed By: #### L 500.4050, L501.9520, L100.0100, L501.2300, L501.5200 ####[facility] [address] [place], [address] ALK P 90 U/L Normal 45-117 [facility] Comment on above: Performed By: #### L 500.4050, L501.9520, L100.0100, L501.2300, L501.5200 ####[facility] [address] [place], [address] ALT [Catalytic activity/Vol] 21 U/L Normal 13-56 [facility] Comment on above: Performed By: #### L 500.4050, L501.9520, L100.0100, L501.2300, L501.5200 ####[facility] [address] [place], [address] AST [Catalytic activity/Vol] 20 U/L Normal 15-37 [facility] Comment on above: Performed By: #### L 500.4050, L501.9520, L100.0100, L501.2300, L501.5200 ####[facility] [address] [place], [address] Bilirubin [Mass/Vol] 0.50 mg/dL Normal 0.20-1.00 [facility] Comment on above: Result Comment: For patients on eltrombopag therapy, use of Dimension Stanton TBIL is not recommended. Performed By: #### L 500.4050, L501.9520, L100.0100, L501.2300, L501.5200 ####[facility] [address] [place], [address] BUN/CRE 18.1 RATIO Normal 10-20 [facility] Comment on above: Performed By: #### L 500.4050, L501.9520, L100.0100, L501.2300, L501.5200 ####[facility] [address] [place], [address] CA,Total 8.8 mg/dL Normal 8.5-10.1 [facility] Comment on above: Performed By: #### L 500.4050, L501.9520, L100.0100, L501.2300, L501.5200 ####[facility] [address] [place], [address] Chloride [Moles/Vol] 110 mmol/L High 98-107 [facility] Comment on above: Performed By: #### L 500.4050, L501.9520, L100.0100, L501.2300, L501.5200 ####[facility] [address] [place], [address] CO2 [Moles/Vol] 24.0 mmol/L Normal 21.0-32.0 [facility] Comment on above: Performed By: #### L 500.4050, L501.9520, L100.0100, L501.2300, L501.5200 ####[facility] [address] [place], [address] Creatinine [Mass/Vol] 0.55 mg/dL Normal 0.55-1.02 [facility] Comment on above: Result Comment: The validity of the calculated GFR GFRAA in patients over70 years has not been determined. Clinical correlation isessential. Performed By: #### L 500.4050, L501.9520, L100.0100, L501.2300, L501.5200 ####[facility] [address] [place], [address] ECRCL 104.22 ml/min Normal [facility] Comment on above: Performed By: #### L 500.4050, L501.9520, L100.0100, L501.2300, L501.5200 ####[facility] [address] [place], [address] EST GFR - AA 143 mL/min Normal >60 [facility] Comment on above: Result Comment: Afri can Andorran GFR Calc Performed By: #### L 500.4050, L501.9520, L100.0100, L501.2300, L501.5200 ####[facility] [address] [place], [address] GAP 6 Normal 5-15 [facility] Comment on above: Performed By: #### L 500.4050, L501.9520, L100.0100, L501.2300, L501.5200 ####[facility] [address] [place], [address] GFR/1.73 sq M.predicted among non-blacks MDRD (S/P/Bld) [Vol rate/Area] 118 mL/min/{1.73_m2} Normal >60 [facility] Comment on above: Result Comment: Non- GFR Calc Performed By: #### L 500.4050, L501.9520, L100.0100, L501.2300, L501.5200 ####[facility] [address] [place], [address] Globulin (S) [Mass/Vol] 3.7 g/dL Normal 2.2-4.2 [facility] Comment on above: Performed By: #### L 500.4050, L501.9520, L100.0100, L501.2300, L501.5200 ####[facility] [address] [place], [address] Glucose [Mass/Vol] 167 mg/dL High 74-106 [facility] Comment on above: Result Comment: Fast ing Glucose result greater than or equal to 126 mg/dLsuggests DIABETES MELLITUS per A.D.A. criteria. Performed By: #### L 500.4050, L501.9520, L100.0100, L501.2300, L501.5200 ####[facility] [address] [place], [address] Potassium [Moles/Vol] 3.8 mmol/L Normal 3.5-5.1 [facility] Comment on above: Performed By: #### L 500.4050, L501.9520, L100.0100, L501.2300, L501.5200 ####[facility] [address] [place], [address] Sodium [Moles/Vol] 140 mmol/L Normal 136-145 [facility] Comment on above: Performed By: #### L 500.4050, L501.9520, L100.0100, L501.2300, L501.5200 ####[facility] [address] [place], [address] T PROT 6.0 g/dL Low 6.4-8.2 [facility] Comment on above: Performed By: #### L 500.4050, L501.9520, L100.0100, L501.2300, L501.5200 ####[facility] [address] [place], [address] Urea nitrogen [Mass/Vol] 10 mg/dL Normal 7-18 [facility] Comment on above: Performed By: #### L 500.4050, L501.9520, L100.0100, L501.2300, L501.5200 ####[facility] [address] [place], [address] Consultation - Cardiologyon 01-12-2024 Consultation - Cardiology Normal [facility] Ferritinon 01-12-2024 Ferritin [Mass/Vol] 290 ng/mL High 8-[address] [facility] Comment on above: Order Comment: Comme nts: add to am labs'TROP' Serial specimen #1, #2 or #3: 1add to am labs Performed By: #### L 501.4020, L500.4100, L503.6550, L503.6030 ####[facility] [address] [place], [address] Iron+Iron Binding Capacityon 01-12-2024 Iron [Mass/Vol] 11 ug/dL Low 50-170 [facility] Comment on above: Order Comment: Comme nts: add to am labs'TROP' Serial specimen #1, #2 or #3: 1add to am labs Performed By: #### L 501.4020, L500.4100, L503.6550, L503.6030 ####[facility] [address] [place], [address] IRON SATURATION 6.7 Low 15.0-55.0 [facility] Comment on above: Order Comment: Comme nts: add to am labs'TROP' Serial specimen #1, #2 or #3: 1add to am labs Performed By: #### L 501.4020, L500.4100, L503.6550, L503.6030 ####[facility] [address] [place], [address] TIBC 163 ug/dL Low 250-450 [facility] Comment on above: Order Comment: Comme nts: add to am labs'TROP' Serial specimen #1, #2 or #3: 1add to am labs Performed By: #### L 501.4020, L500.4100, L503.6550, L503.6030 ####[facility] [address] [place], [address] L501.4020on 01-12-2024 TROPONIN-I HS 466 pg/mL Invalid Interpretation Code 3.0-54.0 [facility] Comment on above: Order Comment: Comme nts: add to am labs'TROP' Serial specimen #1, #2 or #3: 1add to am labs Result Comment: Crit ical Result(s) Called at: 08:57:24 01/12/2024 by: García to Annalise Gore. Results read back by same. Please Note: New Test Units and Gender Specific Reference Ranges. For more information see Policy Stat Procedure [facility] High Sensitivity Troponin (TNIH) and attachments. Performed By: #### L 501.4020, L500.4100, L503.6550, L503.6030 ####[facility] [address] [place], [address] Legionella Antigen Urineon 1 03-13-2023 LEGU URINE, RANDOM Negative Presumptive negative for Legionella pneumophila serogroup 1 antigen in urine, suggesting no recent or current infection. Legionella Ag, Urine Negative (See interpretation below) Normal [facility] Comment on above: Performed By: #### M 300.4500, M300.4600 ####[facility] [address] [place], [address] Lipid Profileon 01-12-2024 Cholesterol [Mass/Vol] 69 mg/dL Normal 200 [facility] Comment on above: Order Comment: Comme nts: add to am labs'TROP' Serial specimen #1, #2 or #3: 1add to am labs Result Comment: <200 mg/dL Desirable 200-240 mg/dL Borderline >240 mg/dL High Risk Performed By: #### L 501.4020, L500.4100, L503.6550, L503.6030 ####[facility] [address] [place], [address] Cholesterol in HDL [Mass/Vol] 25 mg/dL Low [facility] Comment on above: Order Comment: Comme nts: add to am labs'TROP' Serial specimen #1, #2 or #3: 1add to am labs Result Comment: The drugs N-Acetylcysteine and Metamizole may falselydepress this assay. Reference Range HDL <40 mg/dL Low HDL Cholesterol HDL >or= 60 mg/dL High HDL Cholesterol Performed By: #### L 501.4020, L500.4100, L503.6550, L503.6030 ####[facility] [address] [place], [address] Cholesterol in LDL [Mass/Vol] 30 mg/dL Normal 0-130 [facility] Comment on above: Order Comment: Comme nts: add to am labs'TROP' Serial specimen #1, #2 or #3: 1add to am labs Performed By: #### L 501.4020, L500.4100, L503.6550, L503.6030 ####[facility] [address] [place], [address] Cholesterol in VLDL [Mass/Vol] 14 mg/dL Normal 5-40 [facility] Comment on above: Order Comment: Comme nts: add to am labs'TROP' Serial specimen #1, #2 or #3: 1add to am labs Performed By: #### L 501.4020, L500.4100, L503.6550, L503.6030 ####[facility] [address] [place], [address] Triglyceride [Mass/Vol] 71 mg/dL Normal [facility] Comment on above: Order Comment: Comme nts: add to am labs'TROP' Serial specimen #1, #2 or #3: 1add to am labs Result Comment: The drugs N-Acetylcysteine and Metamizole may falselydepress this assay.Serum Triglycerides Reference Interval Normal <150 mg/dL Borderline high 150 - 199 mg/dL High 200 - 499 mg/dL Very High > or = 500 mg/dL Performed By: #### L 501.4020, L500.4100, L503.6550, L503.6030 ####[facility] [address] [place], [address] Magnesiumon 01-12-2024 Magnesium [Mass/Vol] 2.0 mg/dL Normal 1.6-2.6 [facility] Comment on above: Performed By: #### L 500.4050, L501.9520, L100.0100, L501.2300, L501.5200 ####[facility] [address] [place], [address] Phosphoruson 01-12-2024 Phosphate [Mass/Vol] 3.2 mg/dL Normal 2.5-4.9 [facility] Comment on above: Performed By: #### L 500.4050, L501.9520, L100.0100, L501.2300, L501.5200 ####[facility] [address] [place], [address] Stool Occult Blood iFOBon STOB Normal [facility] Comment on above: Performed By: #### M 100.7900 ####[facility] [address] [place], [address] Strep pneumoniae Antig(UR,CS F)on 01-12-2024 STPAG Normal [facility] Comment on above: Performed By: #### M 300.4500, M300.4600 ####[facility] [address] [place], [address] Thyroid Stim Hormone (TSH)on 01-12-2024 TSH 2.490 uIU/mL Normal 0.358-3.740 [facility] Comment on above: Performed By: #### L 500.4050, L501.9520, L100.0100, L501.2300, L501.5200 ####[facility] [address] [place], [address] 12 Lead EKGon 01-11-2024 12 Lead EKG Normal [facility] 12 Lead EKG Normal [facility] Basic Metabolic Profile (BMP )on 01-11-2024 BUN/CRE 13.8 RATIO Normal 10-20 [facility] Comment on above: Order Comment: 'TROP ' Serial specimen #1, #2 or #3: 1 Performed By: #### L 501.4020, L100.0100, L500.2500 ####[facility] [address] [place], [address] CA,Total 8.9 mg/dL Normal 8.5-10.1 [facility] Comment on above: Order Comment: 'TROP ' Serial specimen #1, #2 or #3: 1 Performed By: #### L 501.4020, L100.0100, L500.2500 ####[facility] [address] [place], [address] Chloride [Moles/Vol] 106 mmol/L Normal 98-107 [facility] Comment on above: Order Comment: 'TROP ' Serial specimen #1, #2 or #3: 1 Performed By: #### L 501.4020, L100.0100, L500.2500 ####[facility] [address] [place], [address] CO2 [Moles/Vol] 25.0 mmol/L Normal 21.0-32.0 [facility] Comment on above: Order Comment: 'TROP ' Serial specimen #1, #2 or #3: 1 Performed By: #### L 501.4020, L100.0100, L500.2500 ####[facility] [address] [place], [address] Creatinine [Mass/Vol] 0.65 mg/dL Normal 0.55-1.02 [facility] Comment on above: Order Comment: 'TROP ' Serial specimen #1, #2 or #3: 1 Result Comment: The validity of the calculated GFR GFRAA in patients over70 years has not been determined. Clinical correlation isessential. Performed By: #### L 501.4020, L100.0100, L500.2500 ####[facility] [address] [place], [address] ECRCL 88.73 ml/min Normal [facility] Comment on above: Order Comment: 'TROP ' Serial specimen #1, #2 or #3: 1 Performed By: #### L 501.4020, L100.0100, L500.2500 ####[facility] [address] [place], [address] EST GFR - AA 118 mL/min Normal >60 [facility] Comment on above: Order Comment: 'TROP ' Serial specimen #1, #2 or #3: 1 Result Comment: Afri can Andorran GFR Calc Performed By: #### L 501.4020, L100.0100, L500.2500 ####[facility] [address] [place], [address] GAP 6 Normal 5-15 [facility] Comment on above: Order Comment: 'TROP ' Serial specimen #1, #2 or #3: 1 Performed By: #### L 501.4020, L100.0100, L500.2500 ####[facility] [address] [place], [address] GFR/1.73 sq M.predicted among non-blacks MDRD (S/P/Bld) [Vol rate/Area] 98 mL/min/{1.73_m2} Normal >60 [facility] Comment on above: Order Comment: 'TROP ' Serial specimen #1, #2 or #3: 1 Result Comment: Non- GFR Calc Performed By: #### L 501.4020, L100.0100, L500.2500 ####[facility] [address] [place], [address] Glucose [Mass/Vol] 165 mg/dL High 74-106 [facility] Comment on above: Order Comment: 'TROP ' Serial specimen #1, #2 or #3: 1 Result Comment: Fast ing Glucose result greater than or equal to 126 mg/dLsuggests DIABETES MELLITUS per A.D.A. criteria. Performed By: #### L 501.4020, L100.0100, L500.2500 ####[facility] [address] [place], [address] Potassium [Moles/Vol] 3.3 mmol/L Low 3.5-5.1 [facility] Comment on above: Order Comment: 'TROP ' Serial specimen #1, #2 or #3: 1 Performed By: #### L 501.4020, L100.0100, L500.2500 ####[facility] [address] [place], [address] Sodium [Moles/Vol] 138 mmol/L Normal 136-145 [facility] Comment on above: Order Comment: 'TROP ' Serial specimen #1, #2 or #3: 1 Performed By: #### L 501.4020, L100.0100, L500.2500 ####[facility] [address] [place], [address] Urea nitrogen [Mass/Vol] 9 mg/dL Normal 7-18 [facility] Comment on above: Order Comment: 'TROP ' Serial specimen #1, #2 or #3: 1 Performed By: #### L 501.4020, L100.0100, L500.2500 ####[facility] [address] [place], [address] Bedside Glucoseon 01-11-2024 FINGERSTICK GLU 155 mg/dL High 74-106 [facility] Comment on above: Result Comment: DILIA SALCEDO OF PATIENT CARE PER NURSING PROTOCOL Performed By: #### L 501.080 ####[facility] [address] [place], [address] CBC W/Diff, Automatedon 11-0 Absolute Lymph 1.46 X10 3/uL Normal 0.83-4.51 [facility] Comment on above: Performed By: #### L 501.4020, L100.0100, L500.2500 ####[facility] [address] [place], [address] Absolute Neut 9.9 X10 3/uL High 2.0-7.7 [facility] Comment on above: Performed By: #### L 501.4020, L100.0100, L500.2500 ####[facility] [address] [place], [address] Basophils/100 WBC (Bld) 0.5 % Normal 0-1 [facility] Comment on above: Performed By: #### L 501.4020, L100.0100, L500.2500 ####[facility] [address] [place], [address] Eosinophils/100 WBC (Bld) 1.1 % Normal 0-5 [facility] Comment on above: Performed By: #### L 501.4020, L100.0100, L500.2500 ####[facility] [address] [place], [address] Erythrocyte distribution width (RBC) [Ratio] 18.7 % High 11.6-14.6 [facility] Comment on above: Performed By: #### L 501.4020, L100.0100, L500.2500 ####[facility] [address] [place], [address] Hematocrit (Bld) [Volume fraction] 28.8 % Low 37-47 [facility] Comment on above: Performed By: #### L 501.4020, L100.0100, L500.2500 ####[facility] [address] [place], [address] Hemoglobin (Bld) [Mass/Vol] 8.9 g/dL Low 12.0-15.0 [facility] Comment on above: Performed By: #### L 501.4020, L100.0100, L500.2500 ####[facility] [address] [place], [address] IG% 2.900 High 0.0-0.9 [facility] Comment on above: Result Comment: IG% - Immature Granulocytes (promyelocytes, myelocytes andmetamyelocytes) > 1% indicates that a LEFT SHIFT is Present. Performed By: #### L 501.4020, L100.0100, L500.2500 ####[facility] [address] [place], [address] Lymphocytes/100 WBC (Bld) 11.1 % Low 19-41 [facility] Comment on above: Performed By: #### L 501.4020, L100.0100, L500.2500 ####[facility] [address] [place], [address] MCH (RBC) [Entitic mass] 24.3 pg Low 27.0-32.0 [facility] Comment on above: Performed By: #### L 501.4020, L100.0100, L500.2500 ####[facility] [address] [place], [address] MCHC (RBC) [Mass/Vol] 30.9 g/dL Low 32-36 [facility] Comment on above: Performed By: #### L 501.4020, L100.0100, L500.2500 ####[facility] [address] [place], [address] MCV (RBC) [Entitic vol] 78.7 fL Low 81-99 [facility] Comment on above: Performed By: #### L 501.4020, L100.0100, L500.2500 ####[facility] [address] [place], [address] Monocytes/100 WBC (Bld) 9.2 % Normal 0-10 [facility] Comment on above: Performed By: #### L 501.4020, L100.0100, L500.2500 ####[facility] [address] [place], [address] Neutrophils/100 WBC (Bld) 75.2 % High 47-70 [facility] Comment on above: Performed By: #### L 501.4020, L100.0100, L500.2500 ####[facility] [address] [place], [address] Nucleated RBC (Bld) [#/Vol] 0.2 10*3/uL Normal 0-5 [facility] Comment on above: Performed By: #### L 501.4020, L100.0100, L500.2500 ####[facility] [address] [place], [address] Platelet mean volume (Bld) [Entitic vol] 8.9 fL Normal 6.2-12.0 [facility] Comment on above: Performed By: #### L 501.4020, L100.0100, L500.2500 ####[facility] [address] [place], [address] Platelets (Bld) [#/Vol] 380 10*3/uL Normal 150-450 [facility] Comment on above: Performed By: #### L 501.4020, L100.0100, L500.2500 ####[facility] [address] [place], [address] RBC (Bld) [#/Vol] 3.66 10*6/uL Low 4.2-5.[address] [facility] Comment on above: Performed By: #### L 501.4020, L100.0100, L500.2500 ####[facility] [address] [place], [address] RDW SD 52.1 fl High 35.1-43.9 [facility] Comment on above: Performed By: #### L 501.4020, L100.0100, L500.2500 ####[facility] [address] [place], [address] WBC (Bld) [#/Vol] 13.2 10*3/uL High 4.4-11.[address] [facility] Comment on above: Performed By: #### L 501.4020, L100.0100, L500.2500 ####[facility] [address] [place], [address] Absolute Lymph 1.85 X10 3/uL Normal 0.83-4.51 [facility] Comment on above: Performed By: #### L 501.4020, L100.0100, L500.4050, L501.9520, L506.1000 ####[facility] [address] [place], [address] Absolute Neut 9.4 X10 3/uL High 2.0-7.7 [facility] Comment on above: Performed By: #### L 501.4020, L100.0100, L500.4050, L501.9520, L506.1000 ####[facility] [address] [place], [address] Basophils/100 WBC (Bld) 0.7 % Normal 0-1 [facility] Comment on above: Performed By: #### L 501.4020, L100.0100, L500.4050, L501.9520, L506.1000 ####[facility] [address] [place], [address] Eosinophils/100 WBC (Bld) 1.0 % Normal 0-5 [facility] Comment on above: Performed By: #### L 501.4020, L100.0100, L500.4050, L501.9520, L506.1000 ####[facility] [address] [place], [address] Erythrocyte distribution width (RBC) [Ratio] 18.7 % High 11.6-14.6 [facility] Comment on above: Performed By: #### L 501.4020, L100.0100, L500.4050, L501.9520, L506.1000 ####[facility] [address] [place], [address] Hematocrit (Bld) [Volume fraction] 31.0 % Low 37-47 [facility] Comment on above: Performed By: #### L 501.4020, L100.0100, L500.4050, L501.9520, L506.1000 ####[facility] [address] [place], [address] Hemoglobin (Bld) [Mass/Vol] 9.4 g/dL Low 12.0-15.0 [facility] Comment on above: Performed By: #### L 501.4020, L100.0100, L500.4050, L501.9520, L506.1000 ####[facility] [address] [place], [address] IG% 2.300 High 0.0-0.9 [facility] Comment on above: Result Comment: IG% - Immature Granulocytes (promyelocytes, myelocytes andmetamyelocytes) > 1% indicates that a LEFT SHIFT is Present. Performed By: #### L 501.4020, L100.0100, L500.4050, L501.9520, L506.1000 ####[facility] [address] [place], [address] Lymphocytes/100 WBC (Bld) 14.4 % Low 19-41 [facility] Comment on above: Performed By: #### L 501.4020, L100.0100, L500.4050, L501.9520, L506.1000 ####[facility] [address] [place], [address] MCH (RBC) [Entitic mass] 24.0 pg Low 27.0-32.0 [facility] Comment on above: Performed By: #### L 501.4020, L100.0100, L500.4050, L501.9520, L506.1000 ####[facility] [address] [place], [address] MCHC (RBC) [Mass/Vol] 30.3 g/dL Low 32-36 [facility] Comment on above: Performed By: #### L 501.4020, L100.0100, L500.4050, L501.9520, L506.1000 ####[facility] [address] [place], [address] MCV (RBC) [Entitic vol] 79.1 fL Low 81-99 [facility] Comment on above: Performed By: #### L 501.4020, L100.0100, L500.4050, L501.9520, L506.1000 ####[facility] [address] [place], [address] Monocytes/100 WBC (Bld) 8.6 % Normal 0-10 [facility] Comment on above: Performed By: #### L 501.4020, L100.0100, L500.4050, L501.9520, L506.1000 ####[facility] [address] [place], [address] Neutrophils/100 WBC (Bld) 73.0 % High 47-70 [facility] Comment on above: Performed By: #### L 501.4020, L100.0100, L500.4050, L501.9520, L506.1000 ####[facility] [address] [place], [address] Nucleated RBC (Bld) [#/Vol] 0 10*3/uL Normal 0-5 [facility] Comment on above: Performed By: #### L 501.4020, L100.0100, L500.4050, L501.9520, L506.1000 ####[facility] [address] [place], [address] Platelet mean volume (Bld) [Entitic vol] 9.0 fL Normal 6.2-12.0 [facility] Comment on above: Performed By: #### L 501.4020, L100.0100, L500.4050, L501.9520, L506.1000 ####[facility] [address] [place], [address] Platelets (Bld) [#/Vol] 411 10*3/uL Normal 150-450 [facility] Comment on above: Performed By: #### L 501.4020, L100.0100, L500.4050, L501.9520, L506.1000 ####[facility] [address] [place], [address] RBC (Bld) [#/Vol] 3.92 10*6/uL Low 4.2-5.[address] [facility] Comment on above: Performed By: #### L 501.4020, L100.0100, L500.4050, L501.9520, L506.1000 ####[facility] [address] [place], [address] RDW SD 52.8 fl High 35.1-43.9 [facility] Comment on above: Performed By: #### L 501.4020, L100.0100, L500.4050, L501.9520, L506.1000 ####[facility] [address] [place], [address] WBC (Bld) [#/Vol] 12.9 10*3/uL High 4.4-11.[address] [facility] Comment on above: Performed By: #### L 501.4020, L100.0100, L500.4050, L501.9520, L506.1000 ####[facility] [address] [place], [address] CTA Chest W/WO Contraston CTA Chest W/WO Contrast Normal [facility] Chest PA and Lateralon 01-10 Chest PA and Lateral Normal [facility] Comprehensive Metabolic Prof ilon 01-11-2024 Albumin [Mass/Vol] 3.0 g/dL Low 3.2-5.0 [facility] Comment on above: Order Comment: 1 Performed By: #### L 501.4020, L100.0100, L500.4050, L501.9520, L506.1000 ####[facility] [address] [place], [address] Albumin/Globulin [Mass ratio] 0.7 {ratio} Low 0.9-2.4 [facility] Comment on above: Order Comment: 1 Performed By: #### L 501.4020, L100.0100, L500.4050, L501.9520, L506.1000 ####[facility] [address] [place], [address] ALK P 103 U/L Normal 45-117 [facility] Comment on above: Order Comment: 1 Performed By: #### L 501.4020, L100.0100, L500.4050, L501.9520, L506.1000 ####[facility] [address] [place], [address] ALT [Catalytic activity/Vol] 21 U/L Normal 13-56 [facility] Comment on above: Order Comment: 1 Performed By: #### L 501.4020, L100.0100, L500.4050, L501.9520, L506.1000 ####[facility] [address] [place], [address] AST [Catalytic activity/Vol] 13 U/L Low 15-37 [facility] Comment on above: Order Comment: 1 Performed By: #### L 501.4020, L100.0100, L500.4050, L501.9520, L506.1000 ####[facility] [address] [place], [address] Bilirubin [Mass/Vol] 0.50 mg/dL Normal 0.20-1.00 [facility] Comment on above: Order Comment: 1 Result Comment: For patients on eltrombopag therapy, use of Dimension [place] TBIL is not recommended. Performed By: #### L 501.4020, L100.0100, L500.4050, L501.9520, L506.1000 ####[facility] [address] [place], [address] BUN/CRE 8.7 RATIO Low 10-20 [facility] Comment on above: Order Comment: 1 Performed By: #### L 501.4020, L100.0100, L500.4050, L501.9520, L506.1000 ####[facility] [address] [place], [address] CA,Total 9.2 mg/dL Normal 8.5-10.1 [facility] Comment on above: Order Comment: 1 Performed By: #### L 501.4020, L100.0100, L500.4050, L501.9520, L506.1000 ####[facility] [address] [place], [address] Chloride [Moles/Vol] 107 mmol/L Normal 98-107 [facility] Comment on above: Order Comment: 1 Performed By: #### L 501.4020, L100.0100, L500.4050, L501.9520, L506.1000 ####[facility] [address] [place], [address] CO2 [Moles/Vol] 25.0 mmol/L Normal 21.0-32.0 [facility] Comment on above: Order Comment: 1 Performed By: #### L 501.4020, L100.0100, L500.4050, L501.9520, L506.1000 ####[facility] [address] [place], [address] Creatinine [Mass/Vol] 0.69 mg/dL Normal 0.55-1.02 [facility] Comment on above: Order Comment: 1 Result Comment: The validity of the calculated GFR GFRAA in patients over70 years has not been determined. Clinical correlation isessential. Performed By: #### L 501.4020, L100.0100, L500.4050, L501.9520, L506.1000 ####[facility] [address] [place], [address] EST GFR - AA 110 mL/min Normal >60 [facility] Comment on above: Order Comment: 1 Result Comment: Afri can Andorran GFR Calc Performed By: #### L 501.4020, L100.0100, L500.4050, L501.9520, L506.1000 ####[facility] [address] [place], [address] GAP 8 Normal 5-15 [facility] Comment on above: Order Comment: 1 Performed By: #### L 501.4020, L100.0100, L500.4050, L501.9520, L506.1000 ####[facility] [address] [place], [address] GFR/1.73 sq M.predicted among non-blacks MDRD (S/P/Bld) [Vol rate/Area] 91 mL/min/{1.73_m2} Normal >60 [facility] Comment on above: Order Comment: 1 Result Comment: Non- GFR Calc Performed By: #### L 501.4020, L100.0100, L500.4050, L501.9520, L506.1000 ####[facility] [address] [place], [address] Globulin (S) [Mass/Vol] 4.3 g/dL High 2.2-4.2 [facility] Comment on above: Order Comment: 1 Performed By: #### L 501.4020, L100.0100, L500.4050, L501.9520, L506.1000 ####[facility] [address] [place], [address] Glucose [Mass/Vol] 165 mg/dL High 74-106 [facility] Comment on above: Order Comment: 1 Result Comment: Fast ing Glucose result greater than or equal to 126 mg/dLsuggests DIABETES MELLITUS per A.D.A. criteria. Performed By: #### L 501.4020, L100.0100, L500.4050, L501.9520, L506.1000 ####[facility] [address] [place], [address] Potassium [Moles/Vol] 3.1 mmol/L Low 3.5-5.1 [facility] Comment on above: Order Comment: 1 Performed By: #### L 501.4020, L100.0100, L500.4050, L501.9520, L506.1000 ####[facility] [address] [place], [address] Sodium [Moles/Vol] 139 mmol/L Normal 136-145 [facility] Comment on above: Order Comment: 1 Performed By: #### L 501.4020, L100.0100, L500.4050, L501.9520, L506.1000 ####[facility] [address] [place], [address] T PROT 7.3 g/dL Normal 6.4-8.2 [facility] Comment on above: Order Comment: 1 Performed By: #### L 501.4020, L100.0100, L500.4050, L501.9520, L506.1000 ####[facility] [address] [place], [address] Urea nitrogen [Mass/Vol] 6 mg/dL Low 7-18 [facility] Comment on above: Order Comment: 1 Performed By: #### L 501.4020, L100.0100, L500.4050, L501.9520, L506.1000 ####[facility] [address] [place], [address] D-Dimer Quantitative (DVT/PE )on 01-11-2024 D-DIMER QUANT 1.58 FEU/ug/m Invalid Interpretation Code 0.27-0.49 [facility] Comment on above: Result Comment: D-Di emily ELEVATED (>0.49): Additional studies and clinicalassessments are indicated to conclude diagnosis of:Deep Vein Thrombosis (DVT) or Pulmonary Embolism (PE)RESULTS CALLED TO MARKUS 01/11/24 Yovani Stone.REPORT READ BACK BY .SAME Performed By: #### L 300.8000 ####[facility] [address] [place], [place], [address] Echo Complete W/ Contraston 01-11-2024 Echo Complete W/ Contrast Normal [facility] Emergency Department Summary on 01-11-2024 Emergency Department Summary Normal [facility] H AND P Exam - Hospitaliston 01-11-2024 H&P Exam - Hospitalist Normal [facility] L501.4020on 01-11-2024 TROPONIN-I HS 624 pg/mL Invalid Interpretation Code 3.0-54.0 [facility] Comment on above: Order Comment: 'TROP ' Serial specimen #1, #2 or #3: 2 Result Comment: Crit ical Result(s) Called at: 23:17:55 01/11/2024 by:Annalise BROWN. Results read back by same. Please Note: New Test Units and Gender Specific Reference Ranges. For more information see Policy Stat Procedure [place] High Sensitivity Troponin (TNIH) and attachments. Performed By: #### L 501.4020 ####[facility] [address] [place], [place], [address] TROPONIN-I HS 581 pg/mL Invalid Interpretation Code 3.0-54.0 [facility] Comment on above: Order Comment: 'TROP ' Serial specimen #1, #2 or #3: 1 Result Comment: Crit ical Result(s) Called at: 18:32:20 01/11/2024 by: KYAW TOLEDO. Results read back by same. Please Note: New Test Units and Gender Specific Reference Ranges. For more information see Policy Stat Procedure [place] High Sensitivity Troponin (TNIH) and attachments. Performed By: #### L 501.4020, L100.0100, L500.2500 ####[facility] [address] [place], [address] TROPONIN-I HS 570 pg/mL Invalid Interpretation Code 3.0-54.0 [facility] Comment on above: Order Comment: 1 Result Comment: Crit ical Result(s) Called at: 16:27:33 01/11/2024 by: KYAW GRECO. Results read back by same. Please Note: New Test Units and Gender Specific Reference Ranges. For more information see Policy Stat Procedure [place] High Sensitivity Troponin (TNIH) and attachments. Performed By: #### L 501.4020, L100.0100, L500.4050, L501.9520, L506.1000 ####[facility] [id number] [place], [address] Thyroid Stim Hormone (TSH)on 01-11-2024 TSH 2.240 uIU/mL Normal 0.358-3.740 [facility] Comment on above: Order Comment: 1 Performed By: #### L 501.4020, L100.0100, L500.4050, L501.9520, L506.1000 ####[facility] [id number] [place], [address] Vitamin D,25 Hydroxyon 01-10 Vitamin D 25-OH 17.8 ng/mL Normal [facility] Comment on above: Result Comment: Magdalena min D 25(OH) Status Range Deficiency <20 ng/mL (50nmol/L) Insufficiency 20 - 30 ng/mL (50 - 75 nmol/L) Sufficiency 30 - 100 ng/mL (75 - 250 nmol/L) Toxicity >100 ng/mL (>250 nmol/L) Performed By: #### L 501.4020, L100.0100, L500.4050, L501.9520, L506.1000 ####[facility] [id number] [place], [place], [address] CNOVon 09-29-2023 CNOV Office Visit (AGRK ) JAYLIN CARROLL ([id number]) 1960 F Date Time Provider Department 09/29/23 2:20 PM ROBERT FARIAS During your visit today, we recorded the following information about you: Temperature Pulse Blood pressure Weight 98.2 degrees 105/minute 173/83 85 kg Height 1.549 m Robert Farias MD 01/20/2024 2:56 PM Addendum This note was created using PowerPracticalriter. Subjective Jaylin Carroll is a 63 year old female. I am good Back tweaked 2 week ago Was in [facility] Not sure what happened Then 12 hour [...] Plan First visit 06/19/2020 ( moved from [place] ) RA and wants treatment for that [...] Chronic low back pain 09/29/23 PCP addressing 7/26/24 Left shoulder pain injury 2019 worked as [...] hour ( (more content not included)... Normal [facility] CBC W Auto Differential pane l (Bld)on 09-22-2023 Basophils (Bld) [#/Vol] [facility] Basophils/100 WBC (Bld) 0.4 % [facility] Differential cell count method Nom (Bld) Auto [facility] Eosinophils (Bld) [#/Vol] 0.12 10*3/uL [facility] Eosinophils/100 WBC (Bld) 2.3 % [facility] Erythrocyte distribution width (RBC) [Ratio] 17.6 % High 11.5 - 15.0 % [facility] Hematocrit (Bld) [Volume fraction] 37.3 % 36.0 - 46.0 % [facility] Hemoglobin (Bld) [Mass/Vol] 11.7 g/dL 11.5 - 15.5 g/dL [facility] Immature granulocytes (Bld) [#/Vol] 0.03 10*3/uL [facility] Immature granulocytes/100 WBC (Bld) 0.6 % [facility] Interpretation and review of laboratory results Abnormal [facility] Lymphocytes (Bld) [#/Vol] 1.64 10*3/uL [facility] Lymphocytes/100 WBC (Bld) 31.2 % [facility] MCH (RBC) [Entitic mass] 25.1 pg Low 26.0 - 34.0 pg [facility] MCHC (RBC) [Mass/Vol] 31.4 g/dL 30.5 - 36.0 g/dL [facility] MCV (RBC) [Entitic vol] 80.0 fL 80.0 - 100.0 fL [facility] Monocytes (Bld) [#/Vol] 0.49 10*3/uL NINF [facility] Monocytes/100 WBC (Bld) 9.3 % C [facility] Neutrophils (Bld) [#/Vol] 2.95 10*3/uL [facility] Neutrophils/100 WBC (Bld) 56.2 % [facility] Nucleated RBC (Bld) [#/Vol] [facility] Nucleated RBC/100 WBC (Bld) [Ratio] [facility] Platelet mean volume (Bld) [Entitic vol] 9.3 fL 9.0 - 12.7 fL [facility] Platelets (Bld) [#/Vol] 260 10*3/uL [facility] RBC (Bld) [#/Vol] 4.66 10*6/uL 3.90 - 5.2 0 m/uL [facility] WBC (Bld) [#/Vol] 5.25 10*3/uL [facility] Basophils (Bld) [#/Vol] 10*3/uL Normal <0.11 A [facility] Comment on above: Order Comment: Speci men Type: BLOOD SPECIMENOrdering Facility: [facility] Address: [address] [place] [address] Performed By: #### 5 7021-8 ####[facility] LABCLIA [id number] [address] STATES OF [facility] Basophils/100 WBC (Bld) 0.4 % Normal A [facility] Comment on above: Order Comment: Speci men Type: BLOOD SPECIMENOrdering Facility: [facility] Address: [address] [place] [address] Performed By: #### 5 7021-8 ####[facility] LABCLIA [id number] [address] Differential cell count method Nom (Bld) Auto Normal [facility] Comment on above: Order Comment: Speci men Type: BLOOD SPECIMENOrdering Facility: [facility] Address: [address] [place] [address] Performed By: #### 5 7021-8 ####[facility] LABCLIA [id number] [place] [address] [place] Eosinophils (Bld) [#/Vol] 0.12 10*3/uL Normal <0.46 [facility] Comment on above: Order Comment: Speci men Type: BLOOD SPECIMENOrdering Facility: [facility] Address: [address] [place] [address] Performed By: #### 5 7021-8 ####[facility] LABCLIA [id number] [address] Eosinophils/100 WBC (Bld) 2.3 % Normal [facility] Comment on above: Order Comment: Speci men Type: BLOOD SPECIMENOrdering Facility: [facility] Address: [address] [place] [address] Performed By: #### 5 7021-8 ####[facility] LABCLIA [id number] [address] [place] Erythrocyte distribution width (RBC) [Ratio] 17.6 % High 11.5-15.0 [facility] Comment on above: Order Comment: Speci men Type: BLOOD SPECIMENOrdering Facility: [facility] Address: [address] [place] [address] Performed By: #### 5 7021-8 ####[facility] LABCLIA [id number] [address] Hematocrit (Bld) [Volume fraction] 37.3 % Normal 36.0-46.0 [facility] Comment on above: Order Comment: Speci men Type: BLOOD SPECIMENOrdering Facility: [facility] Address: [address] [place] [address] Performed By: #### 5 7021-8 ####[facility] LABCLIA [id number] [place] [address] [place] Hemoglobin (Bld) [Mass/Vol] 11.7 g/dL Normal 11.5-15.5 [facility] Comment on above: Order Comment: Speci men Type: BLOOD SPECIMENOrdering Facility: [facility] Address: [address] [place] [address] Performed By: #### 5 7021-8 ####[facility] LABCLIA [id number] [place] [address] [place] Immature granulocytes (Bld) [#/Vol] 0.03 10*3/uL Normal <0.10 [facility] Comment on above: Order Comment: Speci men Type: BLOOD SPECIMENOrdering Facility: [facility] Address: [address] [place] [address] Performed By: #### 5 7021-8 ####[facility] LABCLIA [id number] [address] [place] Immature granulocytes/100 WBC (Bld) 0.6 % Normal [facility] Comment on above: Order Comment: Speci men Type: BLOOD SPECIMENOrdering Facility: [facility] Address: [address] [place] [address] Performed By: #### 5 7021-8 ####[facility] LABCLIA [id number] [place] [address] [place] Lymphocytes (Bld) [#/Vol] 1.64 10*3/uL Normal 1.00-4.00 [facility] Comment on above: Order Comment: Speci men Type: BLOOD SPECIMENOrdering Facility: [facility] Address: [address] [place] [address] Performed By: #### 5 7021-8 ####[facility] LABCLIA [id number] [address] [place] Lymphocytes/100 WBC (Bld) 31.2 % Normal [facility] Comment on above: Order Comment: Speci men Type: BLOOD SPECIMENOrdering Facility: [facility] Address: [address] [place] [address] Performed By: #### 5 7021-8 ####[facility] LABCLIA [id number] [address] MCH (RBC) [Entitic mass] 25.1 pg Low 26.0-34.0 [facility] Comment on above: Order Comment: Speci men Type: BLOOD SPECIMENOrdering Facility: [facility] Address: [address] [place] [address] Performed By: #### 5 7021-8 ####[facility] LABCLIA [id number] [address] MCHC (RBC) [Mass/Vol] 31.4 g/dL Normal 30.5-36.0 [facility] Comment on above: Order Comment: Speci men Type: BLOOD SPECIMENOrdering Facility: [facility] Address: [address] [place] [address] Performed By: #### 5 7021-8 ####[facility] LABCLIA [id number] [address] MCV (RBC) [Entitic vol] 80.0 fL Normal 80.0-100.0 [facility] Comment on above: Order Comment: Speci men Type: BLOOD SPECIMENOrdering Facility: [facility] Address: [address] [place] [address] Performed By: #### 5 7021-8 ####[facility] LABCLIA [id number] [address] Monocytes (Bld) [#/Vol] 0.49 10*3/uL Normal <0.87 [facility] Comment on above: Order Comment: Speci men Type: BLOOD SPECIMENOrdering Facility: [facility] Address: [address] [place] [address] Performed By: #### 5 7021-8 ####[facility] LABCLIA [id number] [place] [address] [place] Monocytes/100 WBC (Bld) 9.3 % Normal A [facility] Comment on above: Order Comment: Speci men Type: BLOOD SPECIMENOrdering Facility: [facility] Address: [address] [place] [address] Performed By: #### 5 7021-8 ####[facility] LABCLIA [id number] [place] [address] [place] Neutrophils (Bld) [#/Vol] 2.95 10*3/uL Normal 1.45-7.50 [facility] Comment on above: Order Comment: Speci men Type: BLOOD SPECIMENOrdering Facility: [facility] Address: [address] [place] [address] Performed By: #### 5 7021-8 ####[facility] LABCLIA [id number] [address] [place] Neutrophils/100 WBC (Bld) 56.2 % Normal [facility] Comment on above: Order Comment: Speci men Type: BLOOD SPECIMENOrdering Facility: [facility] Address: [address] [place] [address] Performed By: #### 5 7021-8 ####[facility] LABCLIA [id number] [place] [address] [place] Nucleated RBC (Bld) [#/Vol] Normal [facility] Comment on above: Order Comment: Speci men Type: BLOOD SPECIMENOrdering Facility: [facility] Address: [address] [place] [address] Performed By: #### 5 7021-8 ####[facility] LABCLIA [id number] [place] [id number] [place] Nucleated RBC/100 WBC (Bld) [Ratio] Normal [facility] Comment on above: Order Comment: Speci men Type: BLOOD SPECIMENOrdering Facility: [facility] Address: [address] [place] [address] Performed By: #### 5 7021-8 ####[facility] LABCLIA [id number] [address] Platelet mean volume (Bld) [Entitic vol] 9.3 fL Normal 9.0-12.7 [facility] Comment on above: Order Comment: Speci men Type: BLOOD SPECIMENOrdering Facility: [facility] Address: [address] [place] [address] Performed By: #### 5 7021-8 ####[facility] LABCLIA [id number] [place] [address] [place] Platelets (Bld) [#/Vol] 260 10*3/uL Normal 150-400 [facility] Comment on above: Order Comment: Speci men Type: BLOOD SPECIMENOrdering Facility: [facility] Address: [address] [place] [address] Performed By: #### 5 7021-8 ####[facility] LABCLIA [id number] [address] RBC (Bld) [#/Vol] 4.66 10*6/uL Normal 3.90-5.20 [facility] Comment on above: Order Comment: Speci men Type: BLOOD SPECIMENOrdering Facility: [facility] Address: [address] [place] [address] Performed By: #### 5 7021-8 ####[facility] LABCLIA [id number] [address] [place] WBC (Bld) [#/Vol] 5.25 10*3/uL Normal 3.70-11.00 [facility] Comment on above: Order Comment: Speci men Type: BLOOD SPECIMENOrdering Facility: [facility] Address: [address] [place] [address] Performed By: #### 5 7021-8 ####[facility] LABCLIA [id number] [place] [id number] [facility] Comprehensive metabolic 2000 panelon 09-22-2023 Albumin [Mass/Vol] 4.1 g/dL 3.9 - 4.9 g/dL [facility] ALP [Catalytic activity/Vol] 73 U/L 34 - 123 U/L [facility] ALT With P-5'-P [Catalytic activity/Vol] 14 U/L 7 - 38 U/L [facility] Anion gap [Moles/Vol] 11 mmol/L 8 - 15 mmol/L [facility] AST With P-5'-P [Catalytic activity/Vol] 15 U/L 13 - 35 U/L [facility] Bilirubin [Mass/Vol] 0.2 mg/dL 0.2 - 1 .3 mg/dL [facility] Calcium [Mass/Vol] 9.2 mg/dL 8.5 - 10. 2 mg/dL [facility] Chloride [Moles/Vol] 105 mmol/L 98 - 10 7 mmol/L [facility] CO2 [Moles/Vol] 24 mmol/L 22 - 30 mmol/L [facility] Creatinine [Mass/Vol] 0.53 mg/dL Low 0.58 - 0.96 mg/dL [facility] GFR/1.73 sq M.predicted among non-blacks MDRD (S/P/Bld) [Vol rate/Area] 104 mL/min/{1.73_m2} - PINF [facility] Comment on above: Estimated Glomerular Filtration Rate [...] 136 mg/dL High 74 - 99 mg/dL [facility] Comment on above: The [place] Diabete s Association (ADA) provides guidance for [...] Standards of Medical Care in Diabetes 2016, [place] [employer] Association. Diabetes Care. 2016.39(Suppl 1). Interpretation and review of laboratory results Abnormal [facility] Potassium [Moles/Vol] 3.9 mmol/L 3.7 - 5.1 mmol/L [facility] Protein [Mass/Vol] 6.7 g/dL 6.3 - 8.0 g/dL [facility] Sodium [Moles/Vol] 140 mmol/L 136 - 144 mmol/L [facility] Urea nitrogen [Mass/Vol] 15 mg/dL 7 - 21 mg/dL [facility] Albumin [Mass/Vol] 4.1 g/dL Normal 3.9-4.9 [facility] Comment on above: Order Comment: Speci men Type: BLOOD SPECIMENOrdering Facility: [facility] Address: [address] [place] [address] Performed By: #### 2 4323-8 ####[facility] LABORATORYCLIA [id number] [address] STATES OF [facility] ALP [Catalytic activity/Vol] 73 U/L Normal 34-123 [facility] Comment on above: Order Comment: Speci men Type: BLOOD SPECIMENOrdering Facility: [facility] Address: [address] [place] [address] Performed By: #### 2 4323-8 ####[facility] LABORATORYCLIA [id number] [address] STATES OF [facility] ALT With P-5'-P [Catalytic activity/Vol] 14 U/L Normal 7-38 [facility] Comment on above: Order Comment: Speci men Type: BLOOD SPECIMENOrdering Facility: [facility] Address: [address] [place] [address] Performed By: #### 2 4323-8 ####[facility] LABORATORYCLIA [id number] [address] STATES OF [facility] Anion gap [Moles/Vol] 11 mmol/L Normal 8-15 [facility] Comment on above: Order Comment: Speci men Type: BLOOD SPECIMENOrdering Facility: [facility] Address: [address] [place] [address] Performed By: #### 2 4323-8 ####[facility]ORATORYCLIA [id number] [place] [address] [place] AST With P-5'-P [Catalytic activity/Vol] 15 U/L Normal 13-35 [facility] Comment on above: Order Comment: Speci men Type: BLOOD SPECIMENOrdering Facility: [facility] Address: [address] [place] [address] Performed By: #### 2 4323-8 ####[facility] LABORATORYCLIA [id number] [place] [address] [place] Bilirubin [Mass/Vol] 0.2 mg/dL Normal 0.2-1.3 [facility] Comment on above: Order Comment: Speci men Type: BLOOD SPECIMENOrdering Facility: [facility] Address: [address] [place] [address] Performed By: #### 2 4323-8 ####[facility] LABORATORYCLIA [id number] [place] [address] [place] Calcium [Mass/Vol] 9.2 mg/dL Normal 8.5-10.2 [facility] Comment on above: Order Comment: Speci men Type: BLOOD SPECIMENOrdering Facility: [facility] Address: [address] [place] [address] Performed By: #### 2 4323-8 ####[facility] LABORATORYCLIA [id number] [place] [address] [place] Chloride [Moles/Vol] 105 mmol/L Normal 98-107 [facility] Comment on above: Order Comment: Speci men Type: BLOOD SPECIMENOrdering Facility: [facility] Address: [address] [place] [address] Performed By: #### 2 4323-8 ####[facility] LABORATORYCLIA [id number] [place] [address] [place] CO2 [Moles/Vol] 24 mmol/L Normal 22-30 [facility] Comment on above: Order Comment: Speci men Type: BLOOD SPECIMENOrdering Facility: [facility] Address: [address] [place] [address] Performed By: #### 2 4323-8 ####[facility] LABORATORYCLIA [id number] [address] STATES OF [facility] Creatinine [Mass/Vol] 0.53 mg/dL Low 0.58-0.96 [facility] Comment on above: Order Comment: Matt patricio Type: BLOOD SPECIMENOrdering Facility: [facility] Address: [address] [place] [address] Performed By: #### 2 4323-8 ####[facility] [id number] [address] Creatinine and Glomerular filtration rate.predicted panel (S/P/Bld) 104 mL/min/1.73m??? Normal >=60 [facility] Comment on above: Order Comment: Matt patricio Type: BLOOD SPECIMENOrdering Facility: [facility] Address: [address] [place] [address] Result Comment: Glynn mated Glomerular Filtration Rate [...] Performed By: #### 2 4323-8 ####[facility] LABORATORYCLIA [id number] [address] [place] Glucose [Mass/Vol] 136 mg/dL High 74-99 [facility] Comment on above: Order Comment: Matt patricio Type: BLOOD SPECIMENOrdering Facility: [facility] Address: [address] [place] [address] Result Comment: The [place] Diabetes Association (ADA) provides guidance for cutoff [...] Standards of Medical Care in Diabetes 2016, [place] Diabetes Association. Diabetes Care. 2016.39(Suppl 1). Performed By: #### 2 4323-8 ####[facility] LABORATORYCLIA [id number] [place] [address] [place] Potassium [Moles/Vol] 3.9 mmol/L Normal 3.7-5.1 [facility] Comment on above: Order Comment: Speci men Type: BLOOD SPECIMENOrdering Facility: [facility] Address: [address] [place] [address] Performed By: #### 2 4323-8 ####[facility] LABORATORYCLIA [id number] [place] [address] [place] Protein [Mass/Vol] 6.7 g/dL Normal 6.3-8.0 [facility] Comment on above: Order Comment: Speci men Type: BLOOD SPECIMENOrdering Facility: [facility] Address: [address] [place] [address] Performed By: #### 2 4323-8 ####[facility] LABORATORYCLIA [id number] [place] [address] [place] Sodium [Moles/Vol] 140 mmol/L Normal 136-144 [facility] Comment on above: Order Comment: Speci men Type: BLOOD SPECIMENOrdering Facility: [facility] Address: [address] [place] [address] Performed By: #### 2 4323-8 ####[facility] LABORATORYCLIA [id number] [place] [address] [place] Urea nitrogen [Mass/Vol] 15 mg/dL Normal 7-21 [facility] Comment on above: Order Comment: Speci men Type: BLOOD SPECIMENOrdering Facility: [facility] Address: [address] [place] [address] Performed By: #### 2 4323-8 ####[facility] LABORATORYCLIA [id number] [place] [address] [place] CBC W Auto Differential pane l (Bld)on 06-16-2023 Basophils (Bld) [#/Vol] 0.03 10*3/uL <0.11 k/uL [facility] Basophils/100 WBC (Bld) 0.5 % C [facility] Differential cell count method Nom (Bld) Auto [facility] Eosinophils (Bld) [#/Vol] 0.11 10*3/uL <0.46 k/uL [facility] Eosinophils/100 WBC (Bld) 1.8 % [facility] Erythrocyte distribution width (RBC) [Ratio] 20.1 % High 11.5 - 15.0 % [facility] Hematocrit (Bld) [Volume fraction] 40.9 % 36.0 - 46.0 % [facility] Hemoglobin (Bld) [Mass/Vol] 12.7 g/dL 11.5 - 15.5 g/dL [facility] Immature granulocytes (Bld) [#/Vol] <0.10 k/uL [facility] Immature granulocytes/100 WBC (Bld) 0.3 % [facility] Lymphocytes (Bld) [#/Vol] 1.83 10*3/uL 1.00 - 4.00 k/uL [facility] Lymphocytes/100 WBC (Bld) 29.9 % [facility] MCH (RBC) [Entitic mass] 25.3 pg Low 26.0 - 34.0 pg [facility] MCHC (RBC) [Mass/Vol] 31.1 g/dL 30.5 - 36.0 g/dL [facility] MCV (RBC) [Entitic vol] 81.5 fL 80.0 - 100.0 fL [facility] Monocytes (Bld) [#/Vol] 0.40 10*3/uL <0.87 k/uL [facility] Monocytes/100 WBC (Bld) 6.5 % [facility] Neutrophils (Bld) [#/Vol] 3.73 10*3/uL 1.45 - 7.50 k/uL [facility] Neutrophils/100 WBC (Bld) 61.0 % [facility] Nucleated RBC (Bld) [#/Vol] <0.01 k/uL [facility] Nucleated RBC/100 WBC (Bld) [Ratio] 0.0 /100 WBC [facility] Platelet mean volume (Bld) [Entitic vol] 10.6 fL 9.0 - 12.7 fL [facility] Platelets (Bld) [#/Vol] 244 10*3/uL 150 - 400 k/uL [facility] RBC (Bld) [#/Vol] 5.02 10*6/uL 3.90 - 5.2 0 m/uL [facility] WBC (Bld) [#/Vol] 6.12 10*3/uL 3.70 - 11. 00 k/uL [facility] Comprehensive metabolic 2000 panelon 06-16-2023 Albumin [Mass/Vol] 4.6 g/dL 3.9 - 4.9 g/dL [facility] ALP [Catalytic activity/Vol] 65 U/L 34 - 123 U/L [facility] ALT With P-5'-P [Catalytic activity/Vol] 14 U/L 7 - 38 U/L [facility] Anion gap [Moles/Vol] 10 mmol/L 9 - 18 mmol/L [facility] AST With P-5'-P [Catalytic activity/Vol] 16 U/L 13 - 35 U/L [facility] Bilirubin [Mass/Vol] 0.2 mg/dL 0.2 - 1 .3 mg/dL [facility] Calcium [Mass/Vol] 9.4 mg/dL 8.5 - 10. 2 mg/dL [facility] Chloride [Moles/Vol] 107 mmol/L High 97 - 10 5 mmol/L [facility] CO2 [Moles/Vol] 24 mmol/L 22 - 30 mmol/L [facility] Creatinine [Mass/Vol] 0.60 mg/dL 0.58 - 0.96 mg/dL [facility] Estimated Glomerular Filtration Rate 102 mL/min/1.73m >=60 mL/min/1.73m [facility] Glucose [Mass/Vol] 114 mg/dL High 74 - 99 mg/dL [facility] Potassium [Moles/Vol] 3.7 mmol/L 3.7 - 5.1 mmol/L [facility] Protein [Mass/Vol] 7.0 g/dL 6.3 - 8.0 g/dL [facility] Sodium [Moles/Vol] 141 mmol/L 136 - 144 mmol/L [facility] Urea nitrogen [Mass/Vol] 15 mg/dL 7 - 21 mg/dL [facility] [facility] W Auto Differential pane l (Bld)on 01-20-2023 Basophils (Bld) [#/Vol] <0.11 k/uL [facility] Basophils/100 WBC (Bld) 0.4 % [facility] Differential cell count method Nom (Bld) Auto [facility] Eosinophils (Bld) [#/Vol] 0.10 10*3/uL <0.46 k/uL [facility] Eosinophils/100 WBC (Bld) 1.8 % [facility] Erythrocyte distribution width (RBC) [Ratio] 18.2 % High 11.5 - 15.0 % [facility] Hematocrit (Bld) [Volume fraction] 36.7 % 36.0 - 46.0 % [facility] Hemoglobin (Bld) [Mass/Vol] 11.5 g/dL 11.5 - 15.5 g/dL [facility] Immature granulocytes (Bld) [#/Vol] 0.03 10*3/uL <0.10 k/uL [facility] Immature granulocytes/100 WBC (Bld) 0.5 % [facility] Lymphocytes (Bld) [#/Vol] 1.16 10*3/uL 1.00 - 4.00 k/uL [facility] Lymphocytes/100 WBC (Bld) 21.1 % [facility] MCH (RBC) [Entitic mass] 25.1 pg Low 26.0 - 34.0 pg [facility] MCHC (RBC) [Mass/Vol] 31.3 g/dL 30.5 - 36.0 g/dL [facility] MCV (RBC) [Entitic vol] 80.1 fL 80.0 - 100.0 fL [facility] Monocytes (Bld) [#/Vol] 0.42 10*3/uL <0.87 k/uL [facility] Monocytes/100 WBC (Bld) 7.7 % [facility] Neutrophils (Bld) [#/Vol] 3.76 10*3/uL 1.45 - 7.50 k/uL [facility] Neutrophils/100 WBC (Bld) 68.5 % [facility] Nucleated RBC (Bld) [#/Vol] <0.01 k/uL [facility] Nucleated RBC/100 WBC (Bld) [Ratio] 0.0 /100 WBC [facility] Platelet mean volume (Bld) [Entitic vol] 9.5 fL 9.0 - 12.7 fL [facility] Platelets (Bld) [#/Vol] 229 10*3/uL 150 - 400 k/uL [facility] RBC (Bld) [#/Vol] 4.58 10*6/uL 3.90 - 5.2 0 m/uL [facility] WBC (Bld) [#/Vol] 5.49 10*3/uL 3.70 - 11. 00 k/uL [facility] Comprehensive metabolic 2000 panelon 01-20-2023 Albumin [Mass/Vol] 4.5 g/dL 3.9 - 4.9 g/dL [facility] ALP [Catalytic activity/Vol] 76 U/L 34 - 123 U/L [facility] ALT With P-5'-P [Catalytic activity/Vol] 17 U/L 7 - 38 U/L [facility] Anion gap [Moles/Vol] 11 mmol/L 9 - 18 mmol/L [facility] AST With P-5'-P [Catalytic activity/Vol] 17 U/L 13 - 35 U/L [facility] Bilirubin [Mass/Vol] 0.3 mg/dL 0.2 - 1 .3 mg/dL [facility] Calcium [Mass/Vol] 9.6 mg/dL 8.5 - 10. 2 mg/dL [facility] Chloride [Moles/Vol] 106 mmol/L High 97 - 10 5 mmol/L [facility] CO2 [Moles/Vol] 23 mmol/L 22 - 30 mmol/L [facility] Creatinine [Mass/Vol] 0.61 mg/dL 0.58 - 0.96 mg/dL [facility] Estimated Glomerular Filtration Rate 101 mL/min/1.73m >=60 mL/min/1.73m [facility] Glucose [Mass/Vol] 132 mg/dL High 74 - 99 mg/dL [facility] Potassium [Moles/Vol] 3.6 mmol/L Low 3.7 - 5.1 mmol/L [facility] Protein [Mass/Vol] 7.4 g/dL 6.3 - 8.0 g/dL [facility] Sodium [Moles/Vol] 140 mmol/L 136 - 144 mmol/L [facility] Urea nitrogen [Mass/Vol] 17 mg/dL 7 - 21 mg/dL [facility] No Panel InformationOrdered By: Alisa Escobar on 12-30-2022 Thyroid Stimulating Hormone (TSH) 1.73 uIU/mL 0.358-3.74 [facility] CBC W Auto Differential pane l (Bld)on 10-14-2022 Basophils (Bld) [#/Vol] 0.03 10*3/uL <0.11 k/uL [facility] Basophils/100 WBC (Bld) 0.4 % [facility] Differential cell count method Nom (Bld) Auto [facility] Eosinophils (Bld) [#/Vol] 0.20 10*3/uL <0.46 k/uL [facility] Eosinophils/100 WBC (Bld) 2.8 % [facility] Erythrocyte distribution width (RBC) [Ratio] 17.1 % High 11.5 - 15.0 % [facility] Hematocrit (Bld) [Volume fraction] 38.7 % 36.0 - 46.0 % [facility] Hemoglobin (Bld) [Mass/Vol] 12.4 g/dL 11.5 - 15.5 g/dL [facility] Immature granulocytes (Bld) [#/Vol] 0.04 10*3/uL <0.10 k/uL [facility] Immature granulocytes/100 WBC (Bld) 0.6 % [facility] Lymphocytes (Bld) [#/Vol] 2.47 10*3/uL 1.00 - 4.00 k/uL [facility] Lymphocytes/100 WBC (Bld) 34.5 % [facility] MCH (RBC) [Entitic mass] 27.0 pg 26.0 - 34.0 pg [facility] MCHC (RBC) [Mass/Vol] 32.0 g/dL 30.5 - 36.0 g/dL [facility] MCV (RBC) [Entitic vol] 84.1 fL 80.0 - 100.0 fL [facility] Monocytes (Bld) [#/Vol] 0.48 10*3/uL <0.87 k/uL [facility] Monocytes/100 WBC (Bld) 6.7 % [facility] Neutrophils (Bld) [#/Vol] 3.93 10*3/uL 1.45 - 7.50 k/uL [facility] Neutrophils/100 WBC (Bld) 55.0 % [facility] Nucleated RBC (Bld) [#/Vol] <0.01 k/uL [facility] Nucleated RBC/100 WBC (Bld) [Ratio] 0.0 /100 WBC [facility] Platelet mean volume (Bld) [Entitic vol] 11.2 fL 9.0 - 12.7 fL [facility] Platelets (Bld) [#/Vol] 231 10*3/uL 150 - 400 k/uL [facility] RBC (Bld) [#/Vol] 4.60 10*6/uL 3.90 - 5.2 0 m/uL [facility] WBC (Bld) [#/Vol] 7.15 10*3/uL 3.70 - 11. 00 k/uL [facility] Comprehensive metabolic 2000 panelon 10-14-2022 Albumin [Mass/Vol] 4.4 g/dL 3.9 - 4.9 g/dL [facility] ALP [Catalytic activity/Vol] 74 U/L 34 - 123 U/L [facility] ALT With P-5'-P [Catalytic activity/Vol] 10 U/L 7 - 38 U/L [facility] Anion gap [Moles/Vol] 12 mmol/L 9 - 18 mmol/L [facility] AST With P-5'-P [Catalytic activity/Vol] 20 U/L 13 - 35 U/L [facility] Bilirubin [Mass/Vol] 0.2 mg/dL 0.2 - 1 .3 mg/dL [facility] Calcium [Mass/Vol] 9.4 mg/dL 8.5 - 10. 2 mg/dL [facility] Chloride [Moles/Vol] 105 mmol/L 97 - 10 5 mmol/L [facility] CO2 [Moles/Vol] 24 mmol/L 22 - 30 mmol/L [facility] Creatinine [Mass/Vol] 0.62 mg/dL 0.58 - 0.96 mg/dL [facility] Estimated Glomerular Filtration Rate 101 mL/min/1.73m >=60 mL/min/1.73m [facility] Glucose [Mass/Vol] 155 mg/dL High 74 - 99 mg/dL [facility] Potassium [Moles/Vol] 3.8 mmol/L 3.7 - 5.1 mmol/L [facility] Protein [Mass/Vol] 6.7 g/dL 6.3 - 8.0 g/dL [facility] Sodium [Moles/Vol] 141 mmol/L 136 - 144 mmol/L [facility] Urea nitrogen [Mass/Vol] 23 mg/dL High 7 - 21 mg/dL [facility] ESR Westergren method (Bld) [Velocity]on 10-14-2022 ESR (Bld) [Velocity] 2 mm/h 0 - 20 mm/hr Cl [facility] Basophil percentageOrdered B y: Alisa Escobar on 05-06-2022 Bilirubin [Mass/Vol] 0.40 mg/dL 0.20-1.00 [facility] Comment on above: For patients on eltr ombopag therapy, use of Dimension [place] TBIL is not recommended. Chloride [Moles/Vol] 106 mmol/L 98-107 [facility] Cholesterol [Mass/Vol] 184 mg/dL <200 [facility] Comment on above: <200 mg/dL Desirable 200-240 mg/dL Borderline >240 mg/dL High Risk Glucose [Mass/Vol] 159 mg/dL 74-106 [facility] Comment on above: Fasting Glucose resu lt greater than or equal to 126 mg/dL suggests DIABETES MELLITUS per A.D.A. criteria. Potassium [Moles/Vol] 3.5 mmol/L 3.5-5.1 [facility] Protein [Mass/Vol] 6.9 g/dL 6.4-8.2 [facility] Sodium [Moles/Vol] 142 mmol/L 136-145 [facility] Triglyceride [Mass/Vol] 95 mg/dL <199 [facility] Comment on above: The drugs N-Acetylcy steine and Metamizole may falsely depress this assay.Serum Triglycerides Reference Interval Normal <150 mg/dL Borderline high 150 - 199 mg/dL High 200 - 499 mg/dL Very High > or = 500 mg/dL Laboratory - Chemistry and C hemistry - challengeOrdered By: Alisa Escobar on 05-06-2022 ALP [Catalytic activity/Vol] 72 U/L 45-117 [facility] ALT [Catalytic activity/Vol] 21 U/L 13-56 [facility] CO2 [Moles/Vol] 29.0 mmol/L 21.0-32.0 [facility] Globulin (S) [Mass/Vol] 2.8 g/dL 2.2-4.2 [facility] Urea nitrogen/Creatinine [Mass ratio] 28.4 mg/mg 10-20 [facility] No Panel InformationOrdered By: Alisa Escobar on 05-06-2022 Estimated GFR (MDRD) Amer 108 mL/min >60 [facility] Comment on above: GFR Calc Estimated GFR (MDRD) Non-Af Amer 90 mL/min >60 [facility] Comment on above: Non- GFR Calc Thyroid Stimulating Hormone (TSH) 3.72 uIU/mL 0.358-3.74 [facility] Serum or plasma albumin aminta urement (mass/volume)Ordered By: Alisa Escobar on 05-06-2022 Albumin [Mass/Vol] 4.1 g/dL 3.2-5.0 [facility] Serum or plasma albumin/glob ulin mass ratioOrdered By: Alisa Escobra on 05-06-2022 Albumin/Globulin [Mass ratio] 1.5 {ratio} 0.9-2.4 [facility] Serum or plasma calcium aminta urement (mass/volume)Ordered By: Alisa Escobar on 05-06-2022 Calcium [Mass/Vol] 9.0 mg/dL 8.5-10.1 [facility] Serum or plasma cholesterol in HDL measurement (mass/volume)Ordered By: Alisa Escobar on 05-06-2022 Cholesterol in HDL [Mass/Vol] 50 mg/dL >40 [facility] Comment on above: The drugs N-Acetylcy steine and Metamizole may falsely depress this assay. Reference Range HDL <40 mg/dL Low HDL Cholesterol HDL >or= 60 mg/dL High HDL Cholesterol Serum or plasma cholesterol in VLDL measurement (mass/volume)Ordered By: Alisa Escobar on 05-06-2022 Cholesterol in VLDL [Mass/Vol] 19 mg/dL 5-40 [facility] Serum or plasma creatinine m easurement (mass/volume)Ordered By: Alisa Escobar on 05-06-2022 Creatinine [Mass/Vol] 0.70 mg/dL 0.55-1.02 [facility] Comment on above: The validity of the calculated GFR & GFRAA in patients over 70 years has not been determined. Clinical correlation is essential. Serum or plasma low density lipoprotein (LDL) cholesterol measurement (mass/volume)Ordered By: Alisa Escobar on 05-06-2022 Cholesterol in LDL [Mass/Vol] 115 mg/dL 0-130 [facility] Serum or plasma urea nitroge n measurement (mass/volume)Ordered By: Alisa Escobar on 05-06-2022 Urea nitrogen [Mass/Vol] 20 mg/dL 7-18 [facility] Thin prep Papanicolaou smear with manual screeningOrdered By: Alisa Escobar on 05-06-2022 Thin prep Papanicolaou smear with manual screening 17 U/L 15-37 [facility] Thin prep Papanicolaou smear with manual screening 7 5-15 [facility] Thin prep Papanicolaou smear with manual screening 20.2 mg/L NO RANGE EST. [facility] Whole blood hemoglobin A1c/t otal hemoglobin ratio (mass fraction)Ordered By: Alisa Escobar on 05-06-2022 HbA1c (Bld) [Mass fraction] 6.4 % 3.8-5.6 [facility] Comment on above: Normal < 5.7 % Predi abetic 5.7 - 6.4 % Diabetic >or= 6.5 % Please note range changes. CBC panel Auto (Bld)on 03-31 Erythrocyte distribution width (RBC) [Ratio] 18.4 % High 11.5 - 15.0 % [facility] Hematocrit (Bld) [Volume fraction] 37.9 % 36.0 - 46.0 % [facility] Hemoglobin (Bld) [Mass/Vol] 12.1 g/dL 11.5 - 15.5 g/dL [facility] MCH (RBC) [Entitic mass] 26.9 pg 26.0 - 34.0 pg [facility] MCHC (RBC) [Mass/Vol] 31.9 g/dL 30.5 - 36.0 g/dL [facility] MCV (RBC) [Entitic vol] 84.2 fL 80.0 - 100.0 fL [facility] Nucleated RBC (Bld) [#/Vol] <0.01 k/uL [facility] Platelet mean volume (Bld) [Entitic vol] 11.8 fL 9.0 - 12.7 fL [facility] Platelets (Bld) [#/Vol] 192 10*3/uL 150 - 400 k/uL [facility] RBC (Bld) [#/Vol] 4.50 10*6/uL 3.90 - 5.2 0 m/uL [facility] WBC (Bld) [#/Vol] 4.63 10*3/uL 3.70 - 11. 00 k/uL [facility] Comprehensive metabolic 2000 panelon 03-31-2022 Albumin [Mass/Vol] 4.3 g/dL 3.9 - 4.9 g/dL [facility] ALP [Catalytic activity/Vol] 80 U/L 34 - 123 U/L [facility] ALT With P-5'-P [Catalytic activity/Vol] 18 U/L 7 - 38 U/L [facility] Anion gap [Moles/Vol] 10 mmol/L 9 - 18 mmol/L [facility] AST With P-5'-P [Catalytic activity/Vol] 21 U/L 13 - 35 U/L [facility] Bilirubin [Mass/Vol] 0.3 mg/dL 0.2 - 1 .3 mg/dL [facility] Calcium [Mass/Vol] 9.1 mg/dL 8.5 - 10. 2 mg/dL [facility] Chloride [Moles/Vol] 106 mmol/L High 97 - 10 5 mmol/L [facility] CO2 [Moles/Vol] 25 mmol/L 22 - 30 mmol/L [facility] Creatinine [Mass/Vol] 0.61 mg/dL 0.58 - 0.96 mg/dL [facility] Estimated Glomerular Filtration Rate 102 mL/min/1.73m >=60 mL/min/1.73m [facility] Glucose [Mass/Vol] 222 mg/dL High 74 - 99 mg/dL [facility] Potassium [Moles/Vol] 3.5 mmol/L Low 3.7 - 5.1 mmol/L [facility] Protein [Mass/Vol] 6.6 g/dL 6.3 - 8.0 g/dL [facility] Sodium [Moles/Vol] 141 mmol/L 136 - 144 mmol/L [facility] Urea nitrogen [Mass/Vol] 10 mg/dL 7 - 21 mg/dL [facility] DXA-AXIAL SKELETONon 023 [facility] CBC panel Auto (Bld)on 11-19 Erythrocyte distribution width (RBC) [Ratio] 17.4 % High 11.5 - 15.0 % [facility] Hematocrit (Bld) [Volume fraction] 38.6 % 36.0 - 46.0 % [facility] Hemoglobin (Bld) [Mass/Vol] 12.3 g/dL 11.5 - 15.5 g/dL [facility] MCH (RBC) [Entitic mass] 26.3 pg 26.0 - 34.0 pg [facility] MCHC (RBC) [Mass/Vol] 31.9 g/dL 30.5 - 36.0 g/dL [facility] MCV (RBC) [Entitic vol] 82.5 fL 80.0 - 100.0 fL [facility] Nucleated RBC (Bld) [#/Vol] <0.01 k/uL [facility] Platelet mean volume (Bld) [Entitic vol] 10.7 fL 9.0 - 12.7 fL [facility] Platelets (Bld) [#/Vol] 219 10*3/uL 150 - 400 k/uL [facility] RBC (Bld) [#/Vol] 4.68 10*6/uL 3.90 - 5.2 0 m/uL [facility] WBC (Bld) [#/Vol] 4.99 10*3/uL 3.70 - 11. 00 k/uL [facility] Comprehensive metabolic 2000 panelon 11-19-2021 Albumin [Mass/Vol] 4.6 g/dL 3.9 - 4.9 g/dL [facility] ALP [Catalytic activity/Vol] 61 U/L 34 - 123 U/L [facility] ALT With P-5'-P [Catalytic activity/Vol] 25 U/L 7 - 38 U/L [facility] Anion gap [Moles/Vol] 12 mmol/L 9 - 18 mmol/L [facility] AST With P-5'-P [Catalytic activity/Vol] 22 U/L 13 - 35 U/L [facility] Bilirubin [Mass/Vol] 0.4 mg/dL 0.2 - 1 .3 mg/dL [facility] Calcium [Mass/Vol] 8.9 mg/dL 8.5 - 10. 2 mg/dL [facility] Chloride [Moles/Vol] 105 mmol/L 97 - 10 5 mmol/L [facility] CO2 [Moles/Vol] 24 mmol/L 22 - 30 mmol/L [facility] Creatinine [Mass/Vol] 0.58 mg/dL 0.58 - 0.96 mg/dL [facility] Estimated Glomerular Filtration Rate 103 mL/min/1.73m >=60 mL/min/1.73m [facility] Glucose [Mass/Vol] 139 mg/dL High 74 - 99 mg/dL [facility] Potassium [Moles/Vol] 3.7 mmol/L 3.7 - 5.1 mmol/L [facility] Protein [Mass/Vol] 6.7 g/dL 6.3 - 8.0 g/dL [facility] Sodium [Moles/Vol] 141 mmol/L 136 - 144 mmol/L [facility] Urea nitrogen [Mass/Vol] 14 mg/dL 7 - 21 mg/dL [facility] CBC W Auto Differential pane l (Bld)on 09-16-2021 Basophils (Bld) [#/Vol] 0.03 10*3/uL Normal <0.11 [facility] Comment on above: Order Comment: Speci men Type: BLOOD SPECIMEN Ordering Facility: [facility] Address: [address] [place] [address] Performed By: #### 5 7021-8 #### [facility] CLIA [id number] [address] [place] [address] [place] Basophils/100 WBC (Bld) 0.5 % Normal [facility] Comment on above: Order Comment: Speci men Type: BLOOD SPECIMEN Ordering Facility: [facility] Address: [address] [place] [address] Performed By: #### 5 7021-8 #### [facility] CLIA [id number] [address] [place] [address] [place] Differential cell count method Nom (Bld) Auto Normal [facility] Comment on above: Order Comment: Speci men Type: BLOOD SPECIMEN Ordering Facility: [facility] Address: [address] [place] [address] Performed By: #### 5 7021-8 #### [facility] CLIA [id number] [address] [place] [address] [place] Eosinophils (Bld) [#/Vol] 0.20 10*3/uL Normal <0.46 [facility] Comment on above: Order Comment: Speci men Type: BLOOD SPECIMEN Ordering Facility: [facility] Address: [address] [place], [place] [phone] Performed By: #### 5 7021-8 #### [facility] CLIA [id number] [address] [place] [address] [place] Eosinophils/100 WBC (Bld) 3.0 % Normal [facility] Comment on above: Order Comment: Speci men Type: BLOOD SPECIMEN Ordering Facility: [facility] Address: [address] [place], [place] [phone] Performed By: #### 5 7021-8 #### [facility] CLIA [id number] [address] [place] [address] [place] Erythrocyte distribution width (RBC) [Ratio] 18.0 % High 11.5-15.0 [facility] Comment on above: Order Comment: Speci men Type: BLOOD SPECIMEN Ordering Facility: [facility] Address: [address] [place], [place] [phone] Performed By: #### 5 7021-8 #### [facility] CLIA [id number] [address] [place] [address] [place] Hematocrit (Bld) [Volume fraction] 40.2 % Normal 36.0-46.0 [facility] Comment on above: Order Comment: Speci men Type: BLOOD SPECIMEN Ordering Facility: [facility] Address: [address] [place], [place] [phone] Performed By: #### 5 7021-8 #### [facility] CLIA [id number] [address] [place] [address] [place] Hemoglobin (Bld) [Mass/Vol] 12.8 g/dL Normal 11.5-15.5 [facility] Comment on above: Order Comment: Speci men Type: BLOOD SPECIMEN Ordering Facility: [facility] Address: [address] [place], [place] [phone] Performed By: #### 5 7021-8 #### [facility] CLIA [id number] [address] [place] [address] [place] IMMATURE GRAN % 0.5 % Normal [facility] Comment on above: Order Comment: Speci men Type: BLOOD SPECIMEN Ordering Facility: [facility] Address: [address] [place], [place] [phone] Performed By: #### 5 7021-8 #### [facility] CLIA [id number] [address] [place] [address] [place] IMMATURE GRAN ABS 0.03 k/uL Normal <0.10 [facility] Comment on above: Order Comment: Speci men Type: BLOOD SPECIMEN Ordering Facility: [facility] Address: [address] [place], [place] [phone] Performed By: #### 5 7021-8 #### [facility] CLIA [id number] [address] [place] [address] [place] Lymphocytes (Bld) [#/Vol] 2.34 10*3/uL Normal 1.00-4.00 [facility] Comment on above: Order Comment: Speci men Type: BLOOD SPECIMEN Ordering Facility: [facility] Address: [address] [place], [place] [phone] Performed By: #### 5 7021-8 #### [facility] CLIA [id number] [address] [place] [address] [place] Lymphocytes/100 WBC (Bld) 35.6 % Normal [facility] Comment on above: Order Comment: Speci men Type: BLOOD SPECIMEN Ordering Facility: [facility] Address: [address] [place], [place] [phone] Performed By: #### 5 7021-8 #### [facility] CLIA [id number] [address] [place] [address] [place] MCH (RBC) [Entitic mass] 26.1 pg Normal 26.0-34.0 [facility] Comment on above: Order Comment: Speci men Type: BLOOD SPECIMEN Ordering Facility: [facility] Address: [address] [place] [address] Performed By: #### 5 7021-8 #### [facility] CLIA [id number] [address] [place] [address] [place] MCHC (RBC) [Mass/Vol] 31.8 g/dL Normal 30.5-36.[address] [facility] Comment on above: Order Comment: Speci men Type: BLOOD SPECIMEN Ordering Facility: [facility] Address: [address] [place] [address] Performed By: #### 5 7021-8 #### [facility] CLIA [id number] [address] [place] [address] [place] MCV (RBC) [Entitic vol] 82.0 fL Normal 80.0-100.0 [facility] Comment on above: Order Comment: Speci men Type: BLOOD SPECIMEN Ordering Facility: [facility] Address: [address] [place] [address] Performed By: #### 5 7021-8 #### [facility] CLIA [id number] [address] [place] [address] [place] Monocytes (Bld) [#/Vol] 0.54 10*3/uL Normal <0.87 [facility] Comment on above: Order Comment: Speci men Type: BLOOD SPECIMEN Ordering Facility: [facility] Address: [address] [place], [place] [phone] Performed By: #### 5 7021-8 #### [facility] CLIA [id number] [address] [place] [address] [place] Monocytes/100 WBC (Bld) 8.2 % Normal C [facility] Comment on above: Order Comment: Speci men Type: BLOOD SPECIMEN Ordering Facility: [facility] Address: [address] [place], [place] [phone] Performed By: #### 5 7021-8 #### [facility] CLIA [id number] [address] [place], [place] [address] [place] Neutrophils (Bld) [#/Vol] 3.43 10*3/uL Normal 1.45-7.50 [facility] Comment on above: Order Comment: Speci men Type: BLOOD SPECIMEN Ordering Facility: [facility] Address: [address] [place], [place] [phone] Performed By: #### 5 7021-8 #### [facility] CLIA [id number] [address] [place] [address] [place] Neutrophils/100 WBC (Bld) 52.2 % Normal [facility] Comment on above: Order Comment: Speci men Type: BLOOD SPECIMEN Ordering Facility: [facility] Address: [address] [place], [place] [phone] Performed By: #### 5 7021-8 #### [facility] CLIA [id number] [address] [place] [address] [place] Nucleated RBC (Bld) [#/Vol] 10*3/uL Normal <0.01 [facility] Comment on above: Order Comment: Speci men Type: BLOOD SPECIMEN Ordering Facility: [facility] Address: [address] [place], [place] [phone] Performed By: #### 5 7021-8 #### [facility] CLIA [id number] [address] [place] [address] [place] Nucleated RBC/100 WBC (Bld) [Ratio] 0.0 /100 WBC Normal [facility] Comment on above: Order Comment: Speci men Type: BLOOD SPECIMEN Ordering Facility: [facility] Address: [address] [place], [place] [phone] Performed By: #### 5 7021-8 #### [facility] CLIA [id number] [address] [place] [address] [place] Platelet mean volume (Bld) [Entitic vol] 10.7 fL Normal 9.0-12.7 [facility] Comment on above: Order Comment: Speci men Type: BLOOD SPECIMEN Ordering Facility: [facility] Address: [address] [place] [address] Performed By: #### 5 7021-8 #### [facility] CLIA [id number] [address] [place] [address] [place] Platelets (Bld) [#/Vol] 243 10*3/uL Normal 150-400 [facility] Comment on above: Order Comment: Speci men Type: BLOOD SPECIMEN Ordering Facility: [facility] Address: [address] [place], [place] [id number] Performed By: #### 5 7021-8 #### [facility] CLIA [id number] [address] [place] [address] [place] RBC (Bld) [#/Vol] 4.90 10*6/uL Normal 3.90-5.20 [facility] Comment on above: Order Comment: Speci men Type: BLOOD SPECIMEN Ordering Facility: [facility] Address: [address] [place] [phone] Performed By: #### 5 7021-8 #### [facility] CLIA [id number] [address] [place] [address] [place] WBC (Bld) [#/Vol] 6.57 10*3/uL Normal 3.70-11.00 [facility] Comment on above: Order Comment: Speci men Type: BLOOD SPECIMEN Ordering Facility: [facility] Address: [address] [place], [place] [id number] Performed By: #### 5 7021-8 #### [facility] CLIA [id number] [address] [place] [address] [place] Vital Signs Date Time Vital Sign Value Performing Clinician Facility 08-09-2024 15:07-0400 Diastolic blood pressure 83 mm[Hg] [facility] 08-09-2024 15:07-0400 Heart rate 68 /min [facility] 08-09-2024 15:07-0400 Systolic blood pressure 134 mm[Hg] [facility] 08-09-2024 14:29-0400 Respiratory rate 18 /min [facility] 08-09-2024 13:29-0400 Body mass index (BMI) [Ratio] 35.49 kg/m2 [facility] 08-09-2024 13:29-0400 Body temperature 97.59 [degF] [facility] 08-09-2024 13:29-0400 Body weight 85.2 kg [facility] 08-09-2024 13:29-0400 SaO2% (BldA) [Mass fraction] 99 % [facility] 07-30-2024 06:42-0400 Body mass index (BMI) [Ratio] 34.2 kg/m2 Paul Greco MD Work Phone: [facility] 07-30-2024 06:42-0400 Body weight 84.82 kg Paul Greco MD Work Phone: [facility] 07-30-2024 06:42-0400 Diastolic blood pressure 84 mm[Hg] Paul Greco MD Work Phone: [facility] 07-30-2024 06:42-0400 Heart rate 74 /min Paul Greco MD Work Phone: [facility] 07-30-2024 06:42-0400 Respiratory rate 18 /min Paul Greco MD Work Phone: [facility] 07-30-2024 06:42-0400 SaO2% (BldA) [Mass fraction] 95 % Paul Greco MD Work Phone: [facility] 07-30-2024 06:42-0400 Systolic blood pressure 125 mm[Hg] Paul Greco MD Work Phone: [facility] 07-25-2024 22:24-0400 Body temperature 97.8 [degF] Paul Greco MD Work Phone: [facility] 07-25-2024 22:24-0400 Diastolic blood pressure 66 mm[Hg] Paul Greco MD Work Phone: [facility] 07-25-2024 22:24-0400 Heart rate 99 /min Paul Greco MD Work Phone: [facility] 07-25-2024 22:24-0400 Respiratory rate 18 /min Paul Gerco MD Work Phone: [facility] 07-25-2024 22:24-0400 SaO2% (BldA) [Mass fraction] 99 % Paul Greco MD Work Phone: [facility] 07-25-2024 22:24-0400 Systolic blood pressure 132 mm[Hg] Paul Greco MD Work Phone: [facility] 07-25-2024 19:03-0400 Body height 157.48 cm Paul Greco MD Work Phone: [facility] 07-25-2024 19:03-0400 Body mass index (BMI) [Ratio] 34.7 kg/m2 Paul Greco MD Work Phone: [facility] 07-25-2024 19:03-0400 Body weight 86.2 kg Paul Greco MD Work Phone: [facility] 07-03-2024 22:13-0400 Body temperature 98.3 [degF] Paul Greco MD Work Phone: [facility] 07-03-2024 22:13-0400 Diastolic blood pressure 65 mm[Hg] Paul Greco MD Work Phone: [facility] 07-03-2024 22:13-0400 Heart rate 70 /min Paul Greco MD Work Phone: [facility] 07-03-2024 22:13-0400 Respiratory rate 18 /min Paul Greco MD Work Phone: [facility] 07-03-2024 22:13-0400 SaO2% (BldA) [Mass fraction] 100 % Paul Greco MD Work Phone: [facility] 07-03-2024 22:13-0400 Systolic blood pressure 142 mm[Hg] Paul Greco MD Work Phone: [facility] 07-03-2024 18:10-0400 Body mass index (BMI) [Ratio] 34.9 kg/m2 Paul Greco MD Work Phone: [facility] 07-03-2024 18:10-0400 Body weight 86.7 kg Paul Greco MD Work Phone: [facility] 06-14-2024 14:27-0400 Body height 154.9 cm Robert Farias MD Work Phone: [facility] 06-14-2024 14:27-0400 Body mass index (BMI) [Ratio] 34.12 kg/m2 Robert Farias MD Work Phone: [facility] 06-14-2024 14:27-0400 Body temperature 98.2 [degF] Robert Farias MD Work Phone: [facility] 06-14-2024 14:27-0400 Body weight 81.92 kg Robert Farias MD Work Phone: [facility] 06-14-2024 14:27-0400 Diastolic blood pressure 85 mm[Hg] Robert Farias MD Work Phone: [facility] 06-14-2024 14:27-0400 Heart rate 84 /min Robert Farias MD Work Phone: [facility] 06-14-2024 14:27-0400 Systolic blood pressure 139 mm[Hg] Robert Farias MD Work Phone: [facility] 06-03-2024 11:40-0400 Diastolic blood pressure 71 mm[Hg] [facility] 06-03-2024 11:40-0400 Heart rate 76 /min [facility] 06-03-2024 11:40-0400 SaO2% (BldA) [Mass fraction] 98 % [facility] Comment on above: RA 06-03-2024 11:40-0400 Systolic blood pressure 119 mm[Hg] [facility] 06-03-2024 11:32-0400 Body mass index (BMI) [Ratio] 33.99 kg/m2 [facility] 06-03-2024 11:32-0400 Body weight 81.6 kg [facility] 06-03-2024 11:32-0400 Respiratory rate 18 /min [facility] 05-31-2024 07:57-0400 Body mass index (BMI) [Ratio] 32.1 kg/m2 Paul Greco MD Work Phone: [facility] 05-31-2024 07:57-0400 Body weight 79.83 kg Paul Greco MD Work Phone: [facility] 05-31-2024 07:57-0400 Diastolic blood pressure 77 mm[Hg] Paul Greco MD Work Phone: [facility] 05-31-2024 07:57-0400 Heart rate 81 /min Paul Greco MD Work Phone: [facility] 05-31-2024 07:57-0400 Respiratory rate 18 /min Paul Greco MD Work Phone: [facility] 05-31-2024 07:57-0400 SaO2% (BldA) [Mass fraction] 97 % Paul Greco MD Work Phone: [facility] 05-31-2024 07:57-0400 Systolic blood pressure 110 mm[Hg] Paul Greco MD Work Phone: [facility] 05-27-2024 15:41-0400 Heart rate 86 /min Paul Greco MD Work Phone: [facility] 05-27-2024 10:00-0400 Body temperature 97.9 [degF] Paul Greco MD Work Phone: [facility] 05-27-2024 10:00-0400 Diastolic blood pressure 80 mm[Hg] Paul Greco MD Work Phone: 5(824)409-334951 [place] [address] 05-27-2024 10:00-0400 Respiratory rate 16 /min Paul Greco MD Work Phone: [facility] 05-27-2024 10:00-0400 SaO2% (BldA) [Mass fraction] 95 % Paul Greco MD Work Phone: 7(998)493-059071 [address] 05-27-2024 10:00-0400 Systolic blood pressure 139 mm[Hg] Paul Greco MD Work Phone: 6(370)466-335371 [address] 05-27-2024 04:13-0400 Body mass index (BMI) [Ratio] 32.5 kg/m2 Paul Greco MD Work Phone: 6(507)182-178271 [address] 05-27-2024 04:13-0400 Body weight 80.64 kg Paul Greco MD Work Phone: 0(261)412-852354 [place] [address] 05-27-2024 02:30-0400 Body height 157.48 cm Paul Greco MD Work Phone: 6(945)[phone] [address] 04-15-2024 13:10-0500 Body temperature 97.7 [degF] Paul Greco MD Work Phone: [facility] 04-15-2024 13:10-0500 Diastolic blood pressure 68 mm[Hg] Paul Greco MD Work Phone: 2(648)100-122451 [place] [address] 04-15-2024 13:10-0500 Heart rate 84 /min Paul Grceo MD Work Phone: 9(133)632-371851 [place] [address] 04-15-2024 13:10-0500 Respiratory rate 14 /min Paul Greco MD Work Phone: 3(525)689-854751 [place] [address] 04-15-2024 13:10-0500 SaO2% (BldA) [Mass fraction] 100 % Paul Greco MD Work Phone: [facility] 04-15-2024 13:10-0500 Systolic blood pressure 104 mm[Hg] Paul Greco MD Work Phone: [facility] 04-15-2024 11:04-0500 Body height 157.48 cm Paul Greco MD Work Phone: [facility] 04-15-2024 11:04-0500 Body mass index (BMI) [Ratio] 30.6 kg/m2 Paul Greco MD Work Phone: [facility] 04-15-2024 11:04-0500 Body weight 76 kg Paul Greco MD Work Phone: [facility] 04-11-2024 10:15-0500 Body mass index (BMI) [Ratio] 32.66 kg/m2 [facility] 04-11-2024 10:15-0500 Body temperature 96.8 [degF] [facility] 04-11-2024 10:15-0500 Body weight 78.4 kg [facility] 04-11-2024 10:15-0500 Diastolic blood pressure 81 mm[Hg] [facility] 04-11-2024 10:15-0500 Heart rate 85 /min [facility] 04-11-2024 10:15-0500 Respiratory rate 18 /min [facility] 04-11-2024 10:15-0500 SaO2% (BldA) [Mass fraction] 98 % [facility] 04-11-2024 10:15-0500 Systolic blood pressure 160 mm[Hg] [facility] 03-11-2024 04:26-0500 Body temperature 98 [degF] Paul Greco MD Work Phone: [facility] 03-11-2024 04:26-0500 Diastolic blood pressure 73 mm[Hg] Paul Greco MD Work Phone: [facility] 03-11-2024 04:26-0500 Heart rate 98 /min Paul Greco MD Work Phone: [facility] 03-11-2024 04:26-0500 Respiratory rate 17 /min Paul Greco MD Work Phone: [facility] 03-11-2024 04:26-0500 SaO2% (BldA) [Mass fraction] 93 % Paul Greco MD Work Phone: [facility] 03-11-2024 04:26-0500 Systolic blood pressure 114 mm[Hg] Paul Greco MD Work Phone: [facility] 03-10-2024 20:18-0500 Body mass index (BMI) [Ratio] 32.4 kg/m2 Paul Greco MD Work Phone: [facility] 03-10-2024 20:18-0500 Body weight 80.42 kg Paul Greco MD Work Phone: [facility] 03-06-2024 00:19-0500 Body weight 79.15 kg Paul Greco MD Work Phone: [facility] 02-29-2024 11:53-0500 Diastolic blood pressure 84 mm[Hg] [facility] 02-29-2024 11:53-0500 Heart rate 81 /min [facility] 02-29-2024 11:53-0500 Systolic blood pressure 126 mm[Hg] [facility] 02-29-2024 10:33-0500 Body mass index (BMI) [Ratio] 33.03 kg/m2 [facility] 02-29-2024 10:33-0500 Body temperature 97.3 [degF] [facility] 02-29-2024 10:33-0500 Body weight 79.3 kg [facility] 02-29-2024 10:33-0500 Respiratory rate 16 /min [facility] 02-26-2024 09:13-0500 Body mass index (BMI) [Ratio] 31.2 kg/m2 Paul Greco MD Work Phone: [facility] 02-26-2024 09:13-0500 Body weight 77.56 kg Paul Greco MD Work Phone: [facility] 02-26-2024 09:13-0500 Diastolic blood pressure 94 mm[Hg] Paul Greco MD Work Phone: [facility] 02-26-2024 09:13-0500 Heart rate 84 /min Paul Greco MD Work Phone: [facility] 02-26-2024 09:13-0500 Respiratory rate 18 /min Paul Greco MD Work Phone: [facility] 02-26-2024 09:13-0500 SaO2% (BldA) [Mass fraction] 95 % Paul Greco MD Work Phone: [facility] 02-26-2024 09:13-0500 Systolic blood pressure 132 mm[Hg] Paul Greco MD Work Phone: [facility] 02-23-2024 11:26-0500 Body weight 79.15 kg Paul Greco MD Work Phone: [facility] 02-09-2024 19:47-0500 Body temperature 99.1 [degF] Paul Greco MD Work Phone: [facility] 02-09-2024 19:47-0500 Diastolic blood pressure 95 mm[Hg] Paul Greco MD Work Phone: [facility] 02-09-2024 19:47-0500 Heart rate 111 /min Paul Greco MD Work Phone: [facility] 02-09-2024 19:47-0500 Respiratory rate 16 /min Paul Greco MD Work Phone: [facility] 02-09-2024 19:47-0500 SaO2% (BldA) [Mass fraction] 96 % Paul Greco MD Work Phone: [facility] 02-09-2024 19:47-0500 Systolic blood pressure 152 mm[Hg] Paul Greco MD Work Phone: [facility] 02-09-2024 17:09-0500 Body mass index (BMI) [Ratio] 32.8 kg/m2 Paul Greco MD Work Phone: [facility] 02-09-2024 17:09-0500 Body weight 81.5 kg Paul Greco MD Work Phone: [facility] 01-24-2024 09:04-0500 Body weight 78.92 kg Paul Greco MD Work Phone: [facility] 01-24-2024 08:42-0500 Body mass index (BMI) [Ratio] 31.8 kg/m2 Paul Greco MD Work Phone: [facility] 01-24-2024 08:42-0500 Diastolic blood pressure 90 mm[Hg] Paul Greco MD Work Phone: [facility] 01-24-2024 08:42-0500 Heart rate 104 /min Paul Greco MD Work Phone: [facility] 01-24-2024 08:42-0500 SaO2% (BldA) [Mass fraction] 95 % Paul Greco MD Work Phone: [facility] 01-24-2024 08:42-0500 Systolic blood pressure 150 mm[Hg] Paul Greco MD Work Phone: [facility] 01-18-2024 10:06-0500 Body temperature 97.3 [degF] [facility] 01-18-2024 10:06-0500 Diastolic blood pressure 94 mm[Hg] [facility] 01-18-2024 10:06-0500 Heart rate 99 /min [facility] 01-18-2024 10:06-0500 Respiratory rate 18 /min [facility] 01-18-2024 10:06-0500 SaO2% (BldA) [Mass fraction] 97 % [facility] 01-18-2024 10:06-0500 Systolic blood pressure 157 mm[Hg] [facility] 01-18-2024 08:45-0500 Body mass index (BMI) [Ratio] 33.99 kg/m2 [facility] 01-18-2024 08:45-0500 Body weight 81.6 kg [facility] 11-10-2023 10:34-0400 Body temperature 97.7 [degF] [facility] 11-10-2023 10:34-0400 Diastolic blood pressure 91 mm[Hg] [facility] 11-10-2023 10:34-0400 Heart rate 88 /min [facility] 11-10-2023 10:34-0400 Respiratory rate 18 /min [facility] 11-10-2023 10:34-0400 SaO2% (BldA) [Mass fraction] 98 % [facility] 11-10-2023 10:34-0400 Systolic blood pressure 177 mm[Hg] [facility] 11-10-2023 10:23-0400 Body mass index (BMI) [Ratio] 35.2 kg/m2 [facility] 11-10-2023 10:23-0400 Body weight 84.5 kg [facility] 09-29-2023 14:27-0400 Body height 154.9 cm Robert Farias MD Work Phone: [facility] 09-29-2023 14:27-0400 Body mass index (BMI) [Ratio] 35.39 kg/m2 Robert Farias MD Work Phone: [facility] 09-29-2023 14:27-0400 Body temperature 98.2 [degF] Robert Farias MD Work Phone: [facility] 09-29-2023 14:27-0400 Body weight 84.96 kg Robert Farias MD Work Phone: [facility] 09-29-2023 14:27-0400 Diastolic blood pressure 83 mm[Hg] Robert Farias MD Work Phone: [facility] 09-29-2023 14:27-0400 Heart rate 105 /min Robert Farias MD Work Phone: [facility] 09-29-2023 14:27-0400 Systolic blood pressure 173 mm[Hg] Robert Farias MD Work Phone: [facility] 09-22-2023 12:00-0400 Diastolic blood pressure 89 mm[Hg] [facility] 09-22-2023 12:00-0400 Heart rate 80 /min [facility] 09-22-2023 12:00-0400 Respiratory rate 16 /min [facility] 09-22-2023 12:00-0400 Systolic blood pressure 188 mm[Hg] [facility] 09-22-2023 10:27-0400 Body mass index (BMI) [Ratio] 35.31 kg/m2 [facility] 09-22-2023 10:27-0400 Body temperature 98.6 [degF] [facility] 09-22-2023 10:27-0400 Body weight 84.78 kg [facility] 09-22-2023 10:27-0400 SaO2% (BldA) [Mass fraction] 97 % [facility] 08-04-2023 10:54-0400 Body temperature 97.7 [degF] [facility] 08-04-2023 10:54-0400 Diastolic blood pressure 94 mm[Hg] [facility] 08-04-2023 10:54-0400 Heart rate 64 /min [facility] 08-04-2023 10:54-0400 Respiratory rate 18 /min [facility] 08-04-2023 10:54-0400 SaO2% (BldA) [Mass fraction] 98 % [facility] 08-04-2023 10:54-0400 Systolic blood pressure 162 mm[Hg] [facility] 08-04-2023 10:36-0400 Body mass index (BMI) [Ratio] 34.8 kg/m2 [facility] 08-04-2023 10:36-0400 Body weight 83.55 kg [facility] 06-16-2023 10:35-0400 Body temperature 98.91 [degF] [facility] 06-16-2023 10:35-0400 Diastolic blood pressure 92 mm[Hg] [facility] 06-16-2023 10:35-0400 Heart rate 79 /min [facility] 06-16-2023 10:35-0400 Respiratory rate 16 /min [facility] 06-16-2023 10:35-0400 Systolic blood pressure 160 mm[Hg] [facility] 06-16-2023 10:28-0400 Body weight 83.37 kg [facility] 04-28-2023 10:59-0500 Body temperature 97.3 [degF] Chair Benedicta Work Phone: [facility] 04-28-2023 10:59-0500 Diastolic blood pressure 90 mm[Hg] Chair Benedicta Work Phone: [facility] 04-28-2023 10:59-0500 Heart rate 61 /min Chair Benedicta Work Phone: [facility] 04-28-2023 10:59-0500 Respiratory rate 18 /min Chair Benedicta Work Phone: [facility] 04-28-2023 10:59-0500 Systolic blood pressure 168 mm[Hg] Chair Benedicta Work Phone: [facility] 04-28-2023 10:31-0500 Body weight 83.87 kg Chair Benedicta Work Phone: [facility] 01-20-2023 12:30-0500 Diastolic blood pressure 80 mm[Hg] [facility] 01-20-2023 12:30-0500 Heart rate 82 /min [facility] 01-20-2023 12:30-0500 Systolic blood pressure 168 mm[Hg] [facility] 01-20-2023 10:40-0500 Body temperature 97.9 [degF] [facility] 01-20-2023 10:40-0500 Body weight 83.51 kg [facility] 01-20-2023 10:40-0500 Respiratory rate 20 /min [facility] 12-02-2022 13:06-0400 Diastolic blood pressure 82 mm[Hg] Chair Benedicta Work Phone: [facility] 12-02-2022 13:06-0400 Heart rate 89 /min Chair Benedicta Work Phone: [facility] 12-02-2022 13:06-0400 Respiratory rate 18 /min Chair Benedicta Work Phone: [facility] 12-02-2022 13:06-0400 SaO2% (BldA) [Mass fraction] 97 % Chair Benedicta Work Phone: [facility] 12-02-2022 13:06-0400 Systolic blood pressure 149 mm[Hg] Chair Benedicta Work Phone: [facility] 12-02-2022 11:42-0400 Body temperature 97.9 [degF] Chair Benedicta Work Phone: [facility] 12-02-2022 11:42-0400 Body weight 85.91 kg Chair Benedicta Work Phone: [facility] 10-14-2022 10:24-0400 Body temperature 98.1 [degF] [facility] 10-14-2022 10:24-0400 Body weight 89.22 kg [facility] 10-14-2022 10:24-0400 Diastolic blood pressure 90 mm[Hg] [facility] 10-14-2022 10:24-0400 Heart rate 72 /min [facility] 10-14-2022 10:24-0400 Respiratory rate 20 /min [facility] 10-14-2022 10:24-0400 Systolic blood pressure 166 mm[Hg] [facility] 08-26-2022 12:03-0400 Diastolic blood pressure 80 mm[Hg] Chair Benedicta Work Phone: [facility] 08-26-2022 12:03-0400 Heart rate 69 /min Chair Benedicta Work Phone: [facility] 08-26-2022 12:03-0400 Respiratory rate 18 /min Chair Benedicta Work Phone: [facility] 08-26-2022 12:03-0400 Systolic blood pressure 154 mm[Hg] Chair Benedicta Work Phone: [facility] 08-26-2022 10:30-0400 Body temperature 97.5 [degF] Chair Benedicta Work Phone: [facility] 08-26-2022 10:30-0400 Body weight 88.27 kg Chair Benedicta Work Phone: [facility] 08-26-2022 10:30-0400 SaO2% (BldA) [Mass fraction] 98 % Chair Benedicta Work Phone: [facility] 07-08-2022 09:37-0400 Body weight 89.09 kg Chair Benedicta Work Phone: [facility] 05-20-2022 09:48-0400 Diastolic blood pressure 85 mm[Hg] [facility] 05-20-2022 09:48-0400 Heart rate 74 /min [facility] 05-20-2022 09:48-0400 Respiratory rate 18 /min [facility] 05-20-2022 09:48-0400 Systolic blood pressure 180 mm[Hg] [facility] 05-20-2022 09:37-0400 Body weight 90.72 kg [facility] 03-31-2022 10:38-0500 Body temperature 98.1 [degF] [facility] 03-31-2022 10:38-0500 Body weight 89.5 kg [facility] 03-31-2022 10:38-0500 Diastolic blood pressure 79 mm[Hg] [facility] 03-31-2022 10:38-0500 Heart rate 83 /min [facility] 03-31-2022 10:38-0500 Respiratory rate 16 /min Chair Benedicta [facility] 03-31-2022 10:38-0500 Systolic blood pressure 161 mm[Hg] Chair Benedicta [facility] 01-07-2022 10:07-0400 Diastolic blood pressure 83 mm[Hg] Chair Benedicta Work Phone: [facility] 01-07-2022 10:07-0400 Heart rate 80 /min Chair Benedicta Work Phone: [facility] 01-07-2022 10:07-0400 Systolic blood pressure 158 mm[Hg] Chair Benedicta Work Phone: [facility] 01-07-2022 10:06-0400 Body temperature 98.2 [degF] Chair Benedicta Work Phone: [facility] 01-07-2022 10:06-0400 Respiratory rate 16 /min Chair Benedicta Work Phone: [facility] 01-07-2022 10:00-0400 Body weight 89.63 kg Chair Benedicta Work Phone: [facility] 11-19-2021 11:46-0400 Diastolic blood pressure 73 mm[Hg] Chair Benedicta Work Phone: [facility] 11-19-2021 11:46-0400 Heart rate 72 /min Chair Benedicta Work Phone: [facility] 11-19-2021 11:46-0400 Respiratory rate 18 /min Chair Benedicta Work Phone: [facility] 11-19-2021 11:46-0400 Systolic blood pressure 142 mm[Hg] Chair Benedicta Work Phone: [facility] 11-19-2021 10:40-0400 Body temperature 97.5 [degF] Chair Benedicta Work Phone: [facility] 10-22-2021 14:25-0400 Body height 154.9 cm Robert Farias MD Work Phone: [facility] 10-22-2021 14:25-0400 Body temperature 98.1 [degF] Robert Farias MD Work Phone: [facility] 10-22-2021 14:25-0400 Body weight 92.67 kg Robert Farias MD Work Phone: [facility] 10-22-2021 14:25-0400 Diastolic blood pressure 97 mm[Hg] Robert Farias MD Work Phone: [facility] 10-22-2021 14:25-0400 Heart rate 84 /min Robert Farias MD Work Phone: [facility] 10-22-2021 14:25-0400 Systolic blood pressure 169 mm[Hg] Robert Farias MD Work Phone: [facility] 10-01-2021 10:07-0400 Body weight 93.44 kg [facility] 08-13-2021 10:10-0400 Body temperature 97.81 [degF] [facility] 08-13-2021 10:10-0400 Diastolic blood pressure 71 mm[Hg] [facility] 08-13-2021 10:10-0400 Heart rate 79 /min [facility] 08-13-2021 10:10-0400 Respiratory rate 16 /min [facility] 08-13-2021 10:10-0400 Systolic blood pressure 149 mm[Hg] [facility] 08-13-2021 10:08-0400 Body weight 91.99 kg [facility] 07-16-2021 15:33-0400 Body height 154.9 cm Robert Farias MD Work Phone: [facility] 07-16-2021 15:33-0400 Body temperature 98.2 [degF] Robert Farias MD Work Phone: [facility] 07-16-2021 15:33-0400 Body weight 89.81 kg Robert Farias MD Work Phone: [facility] 07-16-2021 15:33-0400 Diastolic blood pressure 108 mm[Hg] Robert Farias MD Work Phone: [facility] 07-16-2021 15:33-0400 Heart rate 86 /min Robert Farias MD Work Phone: [facility] 07-16-2021 15:33-0400 Systolic blood pressure 188 mm[Hg] Robert Farias MD Work Phone: [facility] 06-25-2021 09:30-0400 Body temperature 97.7 [degF] [facility] 06-25-2021 09:30-0400 Body weight 90.81 kg [facility] 06-25-2021 09:30-0400 Diastolic blood pressure 95 mm[Hg] [facility] 06-25-2021 09:30-0400 Heart rate 82 /min [facility] 06-25-2021 09:30-0400 Respiratory rate 20 /min [facility] 06-25-2021 09:30-0400 Systolic blood pressure 165 mm[Hg] [facility] 06-19-2020 14:10-0400 Body temperature 98.6 [degF] Robert Farias Work Phone: [facility] 06-19-2020 14:10-0400 Body weight 86.55 kg Robert Farias Work Phone: [facility] 06-19-2020 14:10-0400 Diastolic blood pressure 91 mm[Hg] Hiraprchucho Farias Work Phone: [facility] 06-19-2020 14:10-0400 Heart rate 88 /min Robert Farias Work Phone: [facility] 06-19-2020 14:10-0400 Systolic blood pressure 133 mm[Hg] Amayaerprchucho Farias Work Phone: [facility] Encounters Encounter Date Encounter Type Care Provider Facility Start: 08-23-2024 ambulatory [facility] Facility:[facility] Start: 08-13-2024 End: 08-13-2024 Patient encounter procedure Ambreen Delaney [facility] -Cardiovascular Services Work Phone: Start: 08-13-2024 End: 08-14-2024 Refill Robert Farias MD Work Phone: [facility] [place] Comment on above: Refill Request Start: 08-13-2024 End: 08-13-2024 ambulatory [facility] Facility:[facility] Start: 08-12-2024 End: 08-12-2024 Telephone encounter Robert Farias MD Work Phone: [facility] [place] Start: 08-11-2024 Encounter for genera l adult medical examination without abnormal findings Ambreen Delaney NP [facility] Start: 08-09-2024 End: 08-09-2024 ambulatory Chair 5 [facility] Comment on above: Rheumatoid arthritis involving both hands with positive rheumatoid factor (HCC) (Primary Dx) Start: 08-06-2024 End: 08-06-2024 ambulatory Paul Greco MD Work Phone: [facility] Work Phone: Start: 08-06-2024 End: 08-06-2024 Patient encounter procedure Ambreen ROMERO -Laboratory Work Phone: Start: 08-06-2024 End: 08-06-2024 ambulatory [facility] Facility:[facility] Start: 07-30-2024 End: 07-30-2024 Patient encounter procedure Ambreen ROMERO -[facility] Work Phone: Start: 07-30-2024 End: 07-30-2024 ambulatory Paul Greco MD Work Phone: [facility] Work Phone: Start: 07-25-2024 End: 07-25-2024 Emergency department patient visit Paul Greco MD Work Phone: -Emergency Department Work Phone: Start: 07-18-2024 End: 07-18-2024 Telephone encounter Robert Farias MD Work Phone: [facility] Arthritis & Rheumatology Comment on above: RENFLEXIS - PENDING (Renflexis, [place] - PENDING [id number] [facility]/Portal) Start: 07-09-2024 End: 07-09-2024 Refill Robert Farias MD Work Phone: [facility] Arthritis and Rheumatology [place] Comment on above: Refill Request Start: 07-03-2024 End: 07-03-2024 Emergency department patient visit Dr. Corey De Jesus DO -Emergency Department Work Phone: Start: 06-14-2024 End: 06-14-2024 Patient encounter procedure Robert Farias MD Work Phone: [facility] Rheumat[facility] [place] Comment on above: Rheumatoid arthritis involving both hands with positive rheumatoid factor (HCC) (Primary Dx); Asymptomatic postmenopausal status; High risk medication use Start: 06-14-2024 End: 06-14-2024 ambulatory ROBERT FARIAS Facility:[facility] Start: 06-03-2024 End: 06-03-2024 ambulatory [facility] 3 [facility] Hematology/Oncology Comment on above: Rheumatoid arthritis involving both hands with positive rheumatoid factor (HCC) (Primary Dx) Start: 05-31-2024 End: 05-31-2024 Patient encounter procedure Ana Rosa RONDON [facility] Work Phone: Start: 05-31-2024 End: 05-31-2024 ambulatory Chalon Angus Facility:[facility] Start: 05-29-2024 End: 05-29-2024 Patient encounter procedure Andressa RONDON [facility] Gastroenterology Work Phone: Start: 05-29-2024 End: 05-29-2024 ambulatory Chalon Angus Facility:[facility] Start: 05-28-2024 End: 05-28-2024 Telephone encounter Robert Farias MD Work Phone: [facility] Arthritis & Rheumatology Comment on above: RENFLEXIS - PENDING (Renflexis, [place] - PENDING [id number] [facility] Portal) Start: 05-27-2024 Non-patient / Non-visit Dr. vYonne DORMAN -[facility] Start: 05-27-2024 Non-patient / Non-visit Dr. Jenelle Gaspar MD -[facility] Work Phone: Start: 05-27-2024 End: 05-27-2024 ambulatory Paul Angus Facility:[facility] Start: 05-27-2024 End: 05-27-2024 Evaluation and management of inpatient Dr. Isael Baeza DO -Progressive Care Unit Work Phone: Start: 05-27-2024 End: 05-27-2024 observation encounter Paul Greco MD Work Phone: [facility] Work Phone: Start: 05-26-2024 End: 05-27-2024 Emergency department patient visit GAUTAM ADAM DO Facility:[facility] Start: 05-03-2024 End: 05-03-2024 ambulatory Paul Greco MD Work Phone: [facility] Work Phone: Start: 05-03-2024 End: 05-03-2024 Patient encounter procedure Andressa RONDON -Laboratory, Specimen Work Phone: Start: 05-03-2024 End: 05-03-2024 ambulatory [facility] Start: 04-30-2024 End: 04-30-2024 Patient encounter procedure Andressa RONDON -[facility] Work Phone: Start: 04-30-2024 End: 04-30-2024 ambulatory Chalon Angus Facility:[facility] Start: 04-16-2024 ambulatory Chalon Angus Facility:[facility] Start: 04-15-2024 ambulatory Chalon Angus Facility:[facility] Start: 04-15-2024 Non-patient / Non-visit Ken Mead nd, DO -[facility] Start: 04-15-2024 End: 04-15-2024 Admission to same day surgery center Ken Xie DO -Endoscopy Work Phone: Start: 04-15-2024 End: 04-15-2024 ambulatory Chalon Angus Facility:[facility] Start: 04-13-2024 End: 06-13-2024 Follow-up encounter Robert Farias MD Work Phone: [facility] [place] Start: 04-11-2024 End: 04-11-2024 ambulatory Chair 2 [facility] Hematology/Oncology Comment on above: Rheumatoid arthritis involving both hands with positive rheumatoid factor (HCC) (Primary Dx) Start: 04-10-2024 End: 04-10-2024 Refill Robert Farias MD Work Phone: [facility] [place] Comment on above: Refill Request Start: 04-05-2024 End: 04-08-2024 Refill Robert Farias MD Work Phone: [facility] [place] Comment on above: Refill Request Start: 03-31-2024 End: 04-01-2024 Refill Robert Farias MD Work Phone: [facility] [place] Comment on above: Refill Request Start: 03-10-2024 End: 03-11-2024 Emergency department patient visit Dr. Zurdo Polo MD -Emergency Department Work Phone: Start: 03-08-2024 End: 04-05-[address] Jose Mondragon MD -Cardiac Rehab Work Phone: Start: 03-08-2024 End: 04-05-2024 ambulatory Chalon Angus Facility:[facility] Start: 02-29-2024 End: 02-29-2024 ambulatory Chair 2 [facility] Hematology/Oncology Comment on above: Rheumatoid arthritis involving both hands with positive rheumatoid factor (HCC) (Primary Dx) Start: 02-26-2024 End: 02-26-2024 Patient encounter procedure Ana Rosa RONDON -[facility] Work Phone: Start: 02-26-2024 End: 02-26-2024 ambulatory Chalon Angus Facility:[facility] Start: 02-26-2024 End: 02-26-2024 ambulatory Chalon Angus Facility:[facility] Start: 02-21-2024 End: 03-05-2024 ambulatory Chalon Angus Facility:[facility] Start: 02-21-2024 End: 03-05-[address] Jose Mondragon MD -Cardiac Rehab Work Phone: Start: 02-09-2024 End: 02-09-2024 Emergency department patient visit Dr. Gustabo Harris -Emergency Department Work Phone: Start: 02-09-2024 End: 02-09-[address] Paul Greco MD -Laboratory, [facility] Start: 02-09-2024 End: 02-09-2024 ambulatory [facility] Facility:[facility] Start: 02-06-2024 End: 02-06-2024 Patient encounter procedure Andressa RONDON -[facility] Work Phone: Start: 02-06-2024 End: 02-06-2024 ambulatory [facility] Facility:[facility] Start: 02-05-2024 End: 02-05-2024 Patient encounter procedure Robert Farias MD Work Phone: [facility] Ar[facility]ritis and Rheumatology [place] Comment on above: Rheumatoid arthritis involving both hands with positive rheumatoid factor (HCC) (Primary Dx); Anemia, chronic disease; Recurrent infections Start: 02-05-2024 End: 02-05-2024 Telemedicine consultation with patient Robert Farias MD Work Phone: [facility] Rhe[facility] [place] Start: 02-05-2024 End: 02-05-2024 ambulatory ROBERT FARIAS Facility:[facility] Start: 01-31-2024 End: 02-03-2024 [facility] Start: 01-31-2024 End: 02-03-[address] Jose Mondragon MD -Cardiac Rehab Work Phone: Start: 01-31-2024 End: 01-31-2024 Patient encounter procedure Xiang PETERSC -Laboratory Work Phone: Start: 01-31-2024 End: 01-31-2024 [facility] Start: 01-24-2024 End: 01-24-[address] Jose Mondragon MD -Cardiac Rehab Work Phone: Start: 01-24-2024 End: 01-24-2024 ambulatory Chalon Angus Facility:[facility] Start: 01-22-2024 End: 01-22-2024 Refill Robert Farias MD Work Phone: [facility] Rheumat[facility] [place] Comment on above: Refill Request Start: 01-20-2024 End: 01-22-2024 Telephone encounter Robert Farias MD Work Phone: [facility] Arthritis & Rheumatology Start: 01-18-2024 End: 01-18-2024 ambulatory Chair 5 [facility] Hematology/Oncology Comment on above: Rheumatoid arthritis involving both hands with positive rheumatoid factor (HCC) (Primary Dx) Start: 01-17-2024 Non-patient / Non-visit Dr. Reinaldo Mondragon MD -[facility] Start: 01-17-2024 ambulatory Chalon Angus Facility[facility] Start: 01-12-2024 ambulatory Chalon Angus [facility] Start: 01-11-2024 End: 01-11-2024 ambulatory Chalon Angus Facility:[facility] Start: 01-11-2024 ambulatory Zeke Mcclain ty:[facility] Start: 01-11-2024 End: 01-13-2024 Evaluation and management of inpatient Chalon Angus Facility:[facility] Start: 01-11-2024 End: 01-11-2024 Refill Robert Farias MD Work Phone: [facility]ritis and Rheumatology [place] Comment on above: Refill Request Start: 01-11-2024 End: 01-11-2024 ambulatory Chalon Angus Facility:[facility] Start: 11-20-2023 End: 11-21-2023 Refill Robert Farias MD Work Phone: [facility] Ar[facility]ritis and Rheumatology [place] Comment on above: Refill Request Start: 11-10-2023 End: 11-10-2023 ambulatory Chair 6 [facility] Hematology/Oncology Comment on above: Rheumatoid arthritis involving both hands with positive rheumatoid factor (HCC) (Primary Dx) Start: 11-02-2023 End: 11-02-2023 Refill Robert Farias MD Work Phone: [facility]ritis and Rheumatology [place] Comment on above: Refill Request Start: 10-13-2023 Refill Robert barger MD Work Phone: [facility] Ar[facility]ritis and Rheumatology [place] Comment on above: Refill Request Start: 10-13-2023 Refill Robert barger MD Work Phone: [facility]ritis and Rheumatology [place] Comment on above: Refill Request Start: 09-29-2023 End: 09-29-2023 Patient encounter procedure Robert Farias MD Work Phone: [facility]ritis and Rheumatology [place] Comment on above: Rheumatoid arthritis involving both hands with positive rheumatoid factor (HCC) (Primary Dx) Start: 09-29-2023 End: 09-29-2023 ambulatory INDERSHANDRAIT JARRETT Facility:[facility] Start: 09-22-2023 End: 09-22-2023 ambulatory Chair 3 [facility] Hematology/Oncology Comment on above: Rheumatoid arthritis involving both hands with positive rheumatoid factor (HCC) (Primary Dx) Start: 09-13-2023 Orders Only Cheyenne Garcia PA-C Work Phone: [facility] Rheumatology and Arthritis Start: 08-04-2023 End: 08-04-2023 ambulatory Chair 3 [facility] Hematology/Oncology Comment on above: Rheumatoid arthritis involving both hands with positive rheumatoid factor (HCC) (Primary Dx) Start: 08-03-2023 Telephone encounter Robert Farias MD Work Phone: [facility] Arthritis & Rheumatology Comment on above: Medication Preauthor ization (Renflexis- [place] Approved [id number] [facility]/Faxed 08.04.23-08.03.24) Start: 08-02-2023 Refill Robert barger MD Work Phone: [facility] Ar[facility]ritis and Rheumatology [place] Comment on above: Refill Request Start: 07-28-2023 Orders Only Robert barger MD Work Phone: [facility]ritis [facility] Rheumatology [place] Start: 07-25-2023 Refill Robert barger MD Work Phone: [facility]ritis and Rheumatology [place] Comment on above: Refill Request Start: 06-16-2023 End: 06-16-2023 ambulatory Chair 6 [facility] Hematology/Oncology Comment on above: Rheumatoid arthritis involving both hands with positive rheumatoid factor (HCC) (Primary Dx) Start: 06-05-2023 Refill Robert barger MD Work Phone: [facility] Ar[facility]ritis and Rheumatology [place] Comment on above: Refill Request Start: 05-07-2023 Refill Robert barger MD Work Phone: [facility] Ar[facility]ritis and Rheumatology [place] Comment on above: Refill Request Start: 04-28-2023 End: 04-28-2023 ambulatory Chair 7 [facility] Work Phone: Hematology/Oncology Comment on above: Rheumatoid arthritis involving both hands with positive rheumatoid factor (HCC) (Primary Dx) Start: 04-24-2023 Refill Robert barger MD Work Phone: [facility]ritis and Rheumatology [place] Comment on above: Refill Request Start: 04-20-2023 Telephone encounter Robert Farias MD Work Phone: [facility]ritis and Rheumatology [place] Start: 04-17-2023 End: 04-17-2023 ambulatory Robert Farias MD Work Phone: [facility]ritis and Rheumatology [place] Comment on above: Rheumatoid arthritis involving both hands with positive rheumatoid factor (HCC) (Primary Dx) Start: 04-17-2023 End: 04-17-2023 Telemedicine consultation with patient Robert Farias MD Work Phone: [facility] Start: 02-01-2023 Refill Robert barger MD Work Phone: [facility] Ar[facility]ritis and Rheumatology [place] Comment on above: Refill Request Start: 01-20-2023 End: 01-20-2023 ambulatory Chair 5 [facility] Hematology/Oncology Comment on above: Rheumatoid arthritis involving both hands with positive rheumatoid factor (HCC) (Primary Dx) Start: 01-12-2023 Telephone encounter Robert Farias MD Work Phone: [facility]ritis and Rheumatology [place] Comment on above: Medication Request ( Renflexis Order) Start: 01-10-2023 Refill Robert barger MD Work Phone: [facility]ritis and Rheumatology [place] Comment on above: Refill Request Start: 12-30-2022 End: 12-30-2022 ambulatory DO Alisa Escobar Work Phone: [facility] Work Phone: Start: 12-30-2022 End: 12-30-2022 Patient encounter procedure DO Alisa Escobar Work Phone: [facility]-Laboratory, [place] Work Phone: Start: 12-26-2022 End: 12-26-2022 ambulatory Robert Farias MD Work Phone: [facility] Arthritis and Rheumatology [place] Comment on above: Rheumatoid arthritis involving both hands with positive rheumatoid factor (HCC) (Primary Dx) Start: 12-26-2022 End: 12-26-2022 Telemedicine consultation with patient Robert Farias MD Work Phone: [facility] Start: 12-19-2022 Refill Robert barger MD Work Phone: Medical Records Comment on above: Refill Request Start: 12-08-2022 Refill Robert barger MD Work Phone: [facility] Arthritis and Rheumatology [place] Comment on above: Refill Request Start: 12-07-2022 Refill Robert barger MD Work Phone: [facility] Arthritis & Rheumatology Comment on above: Refill Request Start: 12-02-2022 End: 12-02-2022 ambulatory Chair 9 [facility] Work Phone: Hematology/Oncology Comment on above: Rheumatoid arthritis involving both hands with positive rheumatoid factor (HCC) (Primary Dx) Start: 11-26-2022 Orders Only Robert barger MD Work Phone: [facility]ritis and Rheumatology [place] Start: 11-11-2022 Refill Robert barger MD Work Phone: [facility] Ar[facility]ritis and Rheumatology [place] Comment on above: Refill Request Start: 10-31-2022 Non-patient / Non-visit DO Olegario stephan Escobar Work Phone: [facility] Start: 10-27-2022 End: 10-27-2022 ambulatory DO Alisa M Shawn Work Phone: [facility] Work Phone: Start: 10-27-2022 End: 10-27-2022 Patient encounter procedure DO Alisa Williamnger Work Phone: [facility]-Pulmonary Services/Neurology Work Phone: Start: 10-14-2022 End: 10-14-2022 ambulatory Chair 1 [facility] Hematology/Oncology Comment on above: Rheumatoid arthritis involving both hands with positive rheumatoid factor (HCC) (Primary Dx) Start: 10-09-2022 Refill Robert barger MD Work Phone: [facility] Arthritis and Rheumatology [place] Comment on above: Refill Request Start: 09-14-2022 Refill Robert barger MD Work Phone: [facility] Arthritis & Rheumatology Comment on above: Refill Request Start: 09-08-2022 Refill Robert barger MD Work Phone: Medical Records Comment on above: Refill Request Start: 09-02-2022 End: 09-02-2022 ambulatory Robert Farias MD Work Phone: [facility] Ar[facility]ritis and Rheumatology [place] Comment on above: Rheumatoid arthritis involving both hands with positive rheumatoid factor (HCC) (Primary Dx) Start: 09-02-2022 End: 09-02-2022 Telemedicine consultation with patient Robert Farias MD Work Phone: [facility] Start: 08-26-2022 End: 08-26-2022 ambulatory Chair 7 [facility] Work Phone: Hematology/Oncology Comment on above: Rheumatoid arthritis involving both hands with positive rheumatoid factor (HCC) (Primary Dx) Start: 08-24-2022 Orders Only Robert barger MD Work Phone: [facility]umat[facility] [place] Start: 08-10-2022 Refill Robert barger MD Work Phone: [facility]ritis [facility] Rheumatology [place] Comment on above: Refill Request Start: 07-08-2022 End: 07-08-2022 ambulatory Chair 7 [facility] Work Phone: Hematology/Oncology Comment on above: Rheumatoid arthritis involving both hands with positive rheumatoid factor (HCC) (Primary Dx) Start: 06-30-2022 Orders Only Robert barger MD Work Phone: [facility]ritis and Rheumatology [place] Start: 06-29-2022 Refill Robert barger MD Work Phone: Medical Records Comment on above: Refill Request Start: 06-21-2022 Refill Robert barger MD Work Phone: [facility] Arthritis & Rheumatology Comment on above: Refill Request Start: 06-10-2022 Refill Robert barger MD Work Phone: [facility]ritis and Rheumatology [place] Comment on above: Refill Request Start: 05-20-2022 End: 05-20-2022 ambulatory Chair 3 [facility] Hematology/Oncology Comment on above: Rheumatoid arthritis involving both hands with positive rheumatoid factor (HCC) (Primary Dx) Start: 05-12-2022 Refill Roebrt barger MD Work Phone: [facility]ritis and Rheumatology [place] Comment on above: Refill Request Start: 05-06-2022 End: 05-06-2022 ambulatory [facility] Work Phone: Start: 05-06-2022 End: 05-06-2022 [facility] Start: 05-02-2022 Refill Robert barger MD Work Phone: Medical Records Comment on above: Refill Request Start: 04-13-2022 Refill Indneda barger MD Work Phone: [facility] Ar[facility]ritis and Rheumatology [place] Comment on above: Refill Request Start: 03-31-2022 End: 03-31-2022 ambulatory Chair 4 [facility] [place] Hematology/Oncology Comment on above: Rheumatoid arthritis involving both hands with positive rheumatoid factor (HCC) (Primary Dx) Start: 03-31-2022 End: 03-31-2022 Subsequent hospital visit by physician Bone D[facility] [place] [facility]IO BONE [facility]ENS[facility] Comment on above: Asymptomatic postmen opausal status [Z78.0] Start: 03-30-2022 Refill Indneda barger MD Work Phone: [facility] Arthritis & Rheumatology Comment on above: Refill Request Start: 03-04-2022 Refill Robert barger MD Work Phone: Medical Records Comment on above: Refill Request Start: 02-13-2022 Refill Robert barger MD Work Phone: Medical Records Comment on above: Refill Request Start: 02-07-2022 Refill Indneda barger MD Work Phone: [facility] Ar[facility]ritis and Rheumatology [place] Comment on above: Refill Request Start: 02-04-2022 End: 02-04-2022 ambulatory Robert Farias MD Work Phone: [facility] Arthritis and Rheumatology [place] Comment on above: Rheumatoid arthritis involving both hands with positive rheumatoid factor (HCC) (Primary Dx); Asymptomatic postmenopausal status Start: 02-04-2022 End: 02-04-2022 Telemedicine consultation with patient Robert Farias MD Work Phone: [facility] Start: 01-20-2022 Refill Indneda barger MD Work Phone: Medical Records Comment on above: Refill Request Start: 01-20-2022 Telephone encounter Shawn Farias [facility] Arthritis and Rheumatology [place] Comment on above: [employer] [facility] [employer] Start: 01-12-2022 Refill Robert barger MD Work Phone: [facility] Arthritis & Rheumatology Comment on above: Refill Request Start: 01-07-2022 End: 01-07-2022 ambulatory Chair 8 [facility] [place] Work Phone: Hematology/Oncology Comment on above: Rheumatoid arthritis involving both hands with positive rheumatoid factor (HCC) (Primary Dx) Start: 01-03-2022 Orders Only Robert barger MD Work Phone: [facility] Rheumat[facility] [place] Start: 12-24-2021 Refill Robert barger MD Work Phone: Medical Records Comment on above: Refill Request Start: 12-15-2021 Refill Robert barger MD Work Phone: [facility] Ar[facility]ritis and Rheumatology [place] Comment on above: Refill Request Start: 11-19-2021 End: 11-19-2021 ambulatory Chair 7 [facility] [place] Work Phone: Hematology/Oncology Comment on above: Rheumatoid arthritis involving both hands with positive rheumatoid factor (HCC) (Primary Dx) Start: 11-12-2021 Orders Only Robert barger MD Work Phone: [facility]ritis and Rheumatology [place] Start: 10-22-2021 End: 10-22-2021 Patient encounter procedure Robert Farias MD Work Phone: [facility] Arthritis and Rheumatology [place] Comment on above: Rheumatoid arthritis involving both hands with positive rheumatoid factor (HCC) (Primary Dx) Start: 10-14-2021 Refill Robert barger MD Work Phone: [facility] Arthritis and Rheumatology [place] Comment on above: Refill Request Start: 10-01-2021 End: 10-01-2021 ambulatory Chair 1 [facility] Hematology/Oncology Comment on above: Rheumatoid arthritis involving both hands with positive rheumatoid factor (HCC) (Primary Dx) Start: 09-29-2021 Telephone encounter Robert Farias MD Work Phone: [facility] Ar[facility]ritis and Rheumatology [place] Comment on above: Refill Request Start: 09-28-2021 Telephone encounter Robert Farias MD Work Phone: [facility] Arthritis and Rheumatology [place] Comment on above: Patient Question Start: 09-16-2021 End: 09-16-2021 ambulatory ROBERT FAIRAS Facility:[facility] Start: 09-10-2021 Refill Robert barger MD Work Phone: Medical Records Comment on above: Refill Request Start: 08-14-2021 Refill Robert barger MD Work Phone: [facility] Ar[facility]ritis and Rheumatology [place] Comment on above: Refill Request Start: 08-13-2021 End: 08-13-2021 ambulatory Chair 4 [facility] Hematology/Oncology Comment on above: Rheumatoid arthritis involving both hands with positive rheumatoid factor (HCC) (Primary Dx) Start: 08-11-2021 Telephone encounter Robert Farias MD Work Phone: [facility] Arthritis & Rheumatology Comment on above: PENDING (Renflexis P ENDING with [employer] fax with office note pt scheduled) Start: 08-10-2021 Orders Only Robert barger MD Work Phone: [facility]ritis [facility] Rheumatology [place] Start: 08-09-2021 Refill Robert barger MD Work Phone: [facility] Ar[facility]ritis and Rheumatology [place] Comment on above: Refill Request Start: 07-22-2021 Telephone encounter Robert Farias MD Work Phone: [facility] Arthritis & Rheumatology Comment on above: APPROVED (Rick Medina APPROVED [id number] 07.04.2021 - 07.21.2022 with [employer]/cover my meds) Start: 07-16-2021 End: 07-16-2021 Patient encounter procedure Robert Farias MD Work Phone: [facility] [place] Comment on above: Rheumatoid arthritis involving both hands with positive rheumatoid factor (HCC) (Primary Dx) Start: 07-16-2021 Telephone encounter Robert Farias MD Work Phone: [facility] [place] Comment on above: Patient Update Start: 06-25-2021 End: 06-25-2021 ambulatory Chair 1 [facility] Hematology/Oncology Comment on above: Rheumatoid arthritis involving both hands with positive rheumatoid factor (HCC) (Primary Dx) Start: 08-11-2020 ambulatory [facility] Provider [facility] Comment on above: RE:Labs Needed Pleas e Start: 08-11-2020 End: 08-11-2020 E-mail encounter from caregiver [facility] Provider [facility] Start: 08-11-2020 End: 08-11-2020 Telephone encounter Robert Farias MD Work Phone: [facility] Comment on above: Phone Call Start: 08-10-2020 End: 08-10-2020 Telephone encounter Robert Farias MD Work Phone: [facility] [place] Comment on above: Patient Update Start: 08-04-2020 End: 08-04-2020 Telephone encounter Robert Farias MD Work Phone: [facility] Comment on above: Pending PA (Jamie s fax pending with [facility]) Start: 06-19-2020 End: 06-19-2020 Hemonc Orders Only Robert Farias Work Phone: [facility] Comment on above: Rheumatoid arthritis involving both hands with positive rheumatoid factor (HCC) Rheumatoid arthritis involving both hands with positive rheumatoid factor (HCC) (Primary Dx); Chronic bilateral low back pain without sciatica Medication Authoriza tion (remicade) Procedures Date Procedure Procedure Detail Performing Clinician Start: 08-09-2024 Blood count complete auto&auto difrntl wbc Cheyenne Garcia PA-C Work Phone: Start: 07-25-2024 Plain chest X-ray Ruel Greco [...] 04-11-2024 Blood count complete auto&auto difrntl wbc [employer] Work Phone: Start: 03-10-2024 CT angiography of [...] Blood count complete auto&auto difrntl wbc Che[place]enne [employer] Work Phone: Start: 06-16-2023 Blood count complete auto&auto difrntl wbc Indneda Farias MD Work Phone: Start: 01-20-2023 Blood [...] Start: 05-24-2018 Lipid 1996 panel - S uemsh or Plasma Robert Farias MD Work Phone: Plan of Treatment Date Care Activity Detail Author Start: 09-22-2029 Urine microalbumin profile DTaP,Tdap,Td Vaccine (2 - Td or Tdap) [facility] Start: 08-10-2027 [facility] Start: 04-11-2027 [facility] Start: 01-17-2027 [facility] Start: 10-29-2026 Screening for malign ant neoplasm of colon [facility] Start: 09-21-2026 [facility] Start: 06-15-2026 [facility] Start: 01-20-2026 [facility] Start: 10-14-2025 DIABETES SCREEN DIABETES SCREEN [facility] Start: 10-14-2025 Diabetes Screening Diabetes Screen[facility] Start: 05-20-2025 DIABETES SCREEN DIABETES SCREEN [facility] Start: 03-31-2025 DIABETES SCREEN DIABETES SCREEN [facility] Start: 11-19-2024 DIABETES SCREEN DIABETES SCREEN [facility] Start: 10-25-2024 End: 10-25-2024 [facility] 10/25/2024 7:00 AM EDT [facility] [place] [address] [place] [address] Robert Farias MD [address] [place], [place] [id number] 4 mo f/up, MTX refill, pe [facility] [place] Comment on above: 4 mo f/up, MTX refil l, pe Start: 09-27-2024 End: 09-27-2024 ambulatory 09/27/2024 1:30 PM EDT [facility] Hematology[facility]Oncology [address] [place], [place] [id number] *[facility] Comment on above: *[facility] Start: 08-12-2024 End: 11-11-2024 BLOOD TB SCREEN, INCUBATED BLOOD TB SCREEN, INCUBATED Lab Routine Rheumatoid arthritis involving both hands with positive rheumatoid factor (HCC) Expected: 08/12/2024, Expires: 11/11/2024 [place] Work Phone: Comment on above: Expected: 08/12/2024 , Expires: 11/11/2024 Start: 07-25-2024 [facility] Start: 07-25-2024 [facility] Start: 07-23-2024 End: 07-23-2024 ambulatory Hematology/Oncology Comment on above: *[facility] - (Auth Pe nding) Start: 07-12-2024 DIABETES SCREEN DIABETES SCREEN [facility] Start: 07-04-2024 End: 07-04-2024 ambulatory 07/04/2024 10:30 AM EDT [facility]fusion [facility] Hematology/Oncology [address] [place], [place] [id number] *[facility] Hematology/Oncology Comment on above: *[facility] Start: 07-03-2024 [facility] Start: 07-03-2024 [facility] Start: 06-14-2024 End: 06-14-2024 Patient encounter procedure 06/14/2024 2:40 PM EDT Office Visit [facility] [place] [id number] [place] [id number] Robert Farias MD [address] [place] [address] Follow up [facility] [place] Comment on above: Follow up Start: 06-14-2024 End: 09-13-2024 BLOOD TB SCREEN, INCUBATED BLOOD TB SCREEN, INCUBATED Lab Routine Rheumatoid arthritis involving both hands with positive rheumatoid factor (HCC) Expected: 06/14/2024, Expires: 09/13/2024 [facility] Comment on above: Expected: 06/14/2024 , Expires: 09/13/2024 Start: 06-14-2024 End: 09-13-2024 CBC panel - Blood by Automated count COMPLETE BLOOD COUNT Lab Routine Rheumatoid arthritis involving both hands with positive rheumatoid factor (HCC) Expected: 06/14/2024, Expires: 09/13/2024 [facility] Comment on above: Expected: 06/14/2024 , Expires: 09/13/2024 Start: 06-14-2024 End: 09-13-2024 Comprehensive metabolic 2000 panel - Serum or Plasma COMPREHENSIVE METABOLIC PANEL Lab Routine Rheumatoid arthritis involving both hands with positive rheumatoid factor (HCC) Expected: 06/14/2024, Expires: 09/13/2024 [facility] Comment on above: Expected: 06/14/2024 , Expires: 09/13/2024 Start: 06-14-2024 End: 09-13-2024 Erythrocyte sedimentation rate SEDIMENTATION RATE, WESTERGREN Lab Routine Rheumatoid arthritis involving both hands with positive rheumatoid factor (HCC) Expected: 06/14/2024, Expires: 09/13/2024 [facility] Comment on above: Expected: 06/14/2024 , Expires: 09/13/2024 Start: 06-03-2024 End: 06-03-2024 ambulatory 06/03/2024 12:00 PM EDT [facility] Hematology/Oncology [address] [place] [address] [facility] - (Auth Pending) Hematology/Oncology Comment on above: [facility] - (Auth Pe nding) Start: 05-27-2024 Patient discharge [facility] Start: 05-27-2024 Venous catheter care management [facility] Start: 05-27-2024 Care regimes management [facility] Start: 05-27-2024 Notification of physician [facility] Start: 05-27-2024 Admission procedure [facility] Start: 05-27-2024 Assessment of risk o f venous thromboembolism [facility] Start: 05-27-2024 Incentive spirometry [facility] Start: 05-27-2024 Insertion of cathete r into peripheral vein [facility] Start: 05-27-2024 Measuring intake and output [facility] Start: 05-27-2024 Providing care accor ding to standard [facility] Start: 05-27-2024 Provision of activit y privileges [facility] Start: 05-27-2024 Introduction of urin yimi catheter [facility] Start: 05-27-2024 Oxygen therapy [facility] Start: 05-27-2024 Referral to service [facility] Start: 05-27-2024 End: 05-27-2024 [facility] Start: 05-23-2024 End: 05-23-2024 ambulatory 05/23/2024 10:30 AM EDT [facility]fusion [facility] Hematology/Oncology [address] [place] [address] *[facility]On[facility] Comment on above: *[facility] Start: 04-15-2024 Colonoscopy w/biopsy single/multiple COLONOSCOPY AND BIOPSY [facility] Start: 04-15-2024 Egd transoral biopsy single/multiple EGD BIOPSY SINGLE/MULTIPLE [facility] Start: 04-15-2024 Venous catheter care management [facility] Start: 04-15-2024 Irrigation of vascul ar catheter [facility] Start: 04-15-2024 Patient discharge [facility] Start: 04-13-2024 DIABETES SCREEN DIABETES SCREEN [facility] Start: 04-11-2024 End: 04-11-2024 ambulatory 04/11/2024 10:30 AM EST [facility]fusion [facility] Hematology/Oncology [address] [place] [address] *[facility] H[facility]ology[facility]On[facility] Comment on above: *[facility] Start: 03-11-2024 [facility] Start: 03-11-2024 Venous catheter care management [facility] Start: 03-10-2024 [facility] Start: 02-29-2024 End: 02-29-2024 ambulatory 02/29/2024 10:30 AM EST [facility] Hematology[facility]Oncology [address] [place] [address] *[facility]ology[facility]On[facility] Comment on above: *[facility] Start: 02-16-2024 End: 02-16-2024 ambulatory 02/16/2024 10:30 AM EST [facility]fusion [facility] Hematology/Oncology [address] [place] [address] *[facility] Hematology/On[facility] Comment on above: *[facility] Start: 02-09-2024 Venous catheter care management [facility] Start: 02-09-2024 [facility] Start: 02-09-2024 End: 02-09-2024 [facility] Start: 02-05-2024 End: 02-05-2024 Patient encounter procedure 02/05/2024 9:00 AM [facility] [address] [address] Robert Farias MD [address] [place] [address] 4 months [facility] [place] Comment on above: 4 months Start: 01-24-2024 Patient referral to dietitian [facility] Start: 01-20-2024 End: 04-20-2024 Cobalamin (Vitamin B12) [Mass/volume] in Serum or Plasma VITAMIN B12 Lab Routine Anemia, chronic disease Expected: 01/20/2024, Expires: 04/20/2024 [facility] Comment on above: Expected: 01/20/2024 , Expires: 04/20/2024 Start: 01-20-2024 End: 04-20-2024 Ferritin [Mass/volume] in Serum or Plasma FERRITIN Lab Routine Anemia, chronic disease Expected: 01/20/2024, Expires: 04/20/2024 [facility] Comment on above: Expected: 01/20/2024 , Expires: 04/20/2024 Start: 01-20-2024 End: 04-20-2024 Folate [Mass/volume] in Serum or Plasma FOLATE, SERUM Lab Routine Anemia, chronic disease Expected: 01/20/2024, Expires: 04/20/2024 [facility] Comment on above: Expected: 01/20/2024 , Expires: 04/20/2024 Start: 01-20-2024 End: 04-20-2024 Iron and Iron binding capacity panel - Serum or Plasma IRON AND TIBC Lab Routine Anemia, chronic disease Expected: 01/20/2024, Expires: 04/20/2024 [place] Work Phone: Comment on above: Expected: 01/20/2024 , Expires: 04/20/2024 Start: 01-18-2024 End: 01-18-2024 ambulatory 01/18/2024 9:00 AM EST [facility]fusion Center Hematology/Oncology [address] [place], [place] [id number] *[facility] Comment on above: *[facility] Start: 01-17-2024 Patient referral [facility] Work Phone: Start: 12-29-2023 End: 12-29-2023 ambulatory 12/29/2023 10:30 AM EDT Infusion Center Hematology/Oncology [address] [place], [place] [id number] *[facility] Comment on above: *[facility] Start: 11-10-2023 End: 11-10-2023 ambulatory 11/10/2023 10:30 AM EDT Infusion Center Hematology/Oncology [address] [place], [place] [id number] *[facility] Comment on above: *[facility] Start: 11-05-2023 Covid-19 Vaccine ( season) Covid-19 Vaccine ( season) [facility] Start: 11-05-2023 Covid-19 Vaccine ( season) Covid-19 Vaccine ( season) [facility] Start: 11-05-2023 Influenza vaccination Influenza Vacc ine (#1) [facility] Start: 09-29-2023 End: 09-29-2023 Patient encounter procedure 09/29/2023 2:20 PM EDT Office Visit [facility] [place] [place] [address] Robert Farias MD [address] [place], [place] [id number] Follow up [facility] [place] Comment on above: Follow up Start: 09-22-2023 End: 09-22-2023 ambulatory 09/22/2023 10:30 AM EDT [facility] Center Hematology/Oncology [address] [place], [place] [id number] *[facility]On[facility] Comment on above: *[facility] Start: 09-15-2023 End: 09-15-2023 Patient encounter procedure 09/15/2023 2:40 PM EDT Office Visit [facility] Ar[facility]ritis [facility] Rheumatology [place] [phone] Robert Farias MD [address] [place], [place] [id number] Follow up [facility] [place] Comment on above: Follow up Start: 08-04-2023 End: 08-04-2023 ambulatory Hematology/Oncology Comment on above: *[facility] - (Auth Pe nding) Start: 06-16-2023 End: 09-15-2023 BLOOD TB SCREEN, INCUBATED [place] Work Phone: Comment on above: Expected: 06/16/2023 , Expires: 09/15/2023 Start: 05-25-2023 Lipid 1996 panel - S umesh or Plasma Lipid Screening [facility] Start: 05-25-2023 Lipid panel Lipid Screening [facility] Start: 05-25-2023 LIPID SCREEN LIPID SCREEN [facility] Start: 04-17-2023 End: 07-17-2023 BLOOD TB SCREEN BLOOD TB SCREEN Lab Routine Rheumatoid arthritis involving both hands with positive rheumatoid factor (HCC) Expected: 04/17/2023, Expires: 07/17/2023 [place] Work Phone: Comment on above: Expected: 04/17/2023 , Expires: 07/17/2023 Start: 04-17-2023 End: 07-17-2023 CBC W Auto Differential panel - Blood CBC + DIFF Lab Routine Rheumatoid arthritis involving both hands with positive rheumatoid factor (HCC) Expected: 04/17/2023, Expires: 07/17/2023 [place] Work Phone: Comment on above: Expected: 04/17/2023 , Expires: 07/17/2023 Start: 04-17-2023 End: 07-17-2023 Comprehensive metabolic 2000 panel - Serum or Plasma COMP METABOLIC PANEL Lab Routine Rheumatoid arthritis involving both hands with positive rheumatoid factor (HCC) Expected: 04/17/2023, Expires: 07/17/2023 [place] Work Phone: Comment on above: Expected: 04/17/2023 , Expires: 07/17/2023 Start: 03-09-2023 Covid-19 Vaccine () Covid-19 Vaccine () [facility] Start: 03-06-2023 Behavioral Health Screening Behavioral Health Screening [facility] Start: 03-06-2023 Depression Assessment Depression Ass essment [facility] Start: 12-26-2022 End: 03-27-2023 CBC W Auto Differential panel - Blood CBC + DIFF Lab Routine Rheumatoid arthritis involving both hands with positive rheumatoid factor (HCC) Expected: 12/26/2022, Expires: 03/27/2023 [place] Work Phone: Comment on above: Expected: 12/26/2022 , Expires: 03/27/2023 Start: 12-26-2022 End: 03-27-2023 Comprehensive metabolic 2000 panel - Serum or Plasma COMP METABOLIC PANEL Lab Routine Rheumatoid arthritis involving both hands with positive rheumatoid factor (HCC) Expected: 12/26/2022, Expires: 03/27/2023 [place] Work Phone: Comment on above: Expected: 12/26/2022 , Expires: 03/27/2023 Start: 12-26-2022 End: 03-27-2023 Erythrocyte sedimentation rate SED RATE WESTERGREN Lab Routine Rheumatoid arthritis involving both hands with positive rheumatoid factor (HCC) Expected: 12/26/2022, Expires: 03/27/2023 [place] Work Phone: Comment on above: Expected: 12/26/2022 , Expires: 03/27/2023 Start: 11-04-2022 Covid-19 Vaccine (2022-) Covid-19 Vaccine () [facility] Start: 11-04-2022 Influenza vaccination C [facility] Start: 09-02-2022 End: 11-02-2022 CBC W Auto Differential panel - Blood CBC + DIFF Lab Routine Rheumatoid arthritis involving both hands with positive rheumatoid factor (HCC) Expected: 09/02/2022, Expires: 11/02/2022 [place] Work Phone: Comment on above: Expected: 09/02/2022 , Expires: 11/02/2022 Start: 09-02-2022 End: 11-02-2022 Comprehensive metabolic 2000 panel - Serum or Plasma COMP METABOLIC PANEL Lab Routine Rheumatoid arthritis involving both hands with positive rheumatoid factor (HCC) Expected: 09/02/2022, Expires: 11/02/2022 [place] Work Phone: Comment on above: Expected: 09/02/2022 , Expires: 11/02/2022 Start: 09-02-2022 End: 11-02-2022 Erythrocyte sedimentation rate SED RATE WESTERGREN Lab Routine Rheumatoid arthritis involving both hands with positive rheumatoid factor (HCC) Expected: 09/02/2022, Expires: 11/02/2022 [place] Work Phone: Comment on above: Expected: 09/02/2022 , Expires: 11/02/2022 Start: 03-10-2022 COVID-19 VACCINE (5 - Moderna risk series) COVID-19 VACCINE (5 - Moderna risk series) [facility] Start: 03-06-2022 DEPRESSION ASSESSMENT DEPRESSION ASS ESSMENT [facility] Start: 02-04-2022 End: 04-06-2022 CBC panel - Blood by Automated count CBC Lab Routine Rheumatoid arthritis involving both hands with positive rheumatoid factor (HCC) Expected: 02/04/2022, Expires: 04/06/2022 [place] Work Phone: Comment on above: Expected: 02/04/2022 , Expires: 04/06/2022 Start: 02-04-2022 End: 04-06-2022 Comprehensive metabolic 2000 panel - Serum or Plasma COMP METABOLIC PANEL Lab Routine Rheumatoid arthritis involving both hands with positive rheumatoid factor (HCC) Expected: 02/04/2022, Expires: 04/06/2022 [place] Work Phone: Comment on above: Expected: 02/04/2022 , Expires: 04/06/2022 Start: 02-04-2022 End: 04-06-2022 Erythrocyte sedimentation rate SED RATE WESTERGREN Lab Routine Rheumatoid arthritis involving both hands with positive rheumatoid factor (HCC) Expected: 02/04/2022, Expires: 04/06/2022 [place] Work Phone: Comment on above: Expected: 02/04/2022 , Expires: 04/06/2022 Start: 11-04-2021 Influenza vaccination INFLUENZA (#1) [facility] Start: 10-22-2021 End: 12-22-2021 BLOOD TB SCREEN, INCUBATED BLOOD TB SCREEN, INCUBATED Lab Routine Rheumatoid arthritis involving both hands with positive rheumatoid factor (HCC) Expected: 10/22/2021, Expires: 12/22/2021 [place] Work Phone: Comment on above: Expected: 10/22/2021 , Expires: 12/22/2021 Start: 10-22-2021 End: 12-22-2021 CBC panel - Blood by Automated count CBC Lab Routine Rheumatoid arthritis involving both hands with positive rheumatoid factor (HCC) Expected: 10/22/2021, Expires: 12/22/2021 [place] Work Phone: Comment on above: Expected: 10/22/2021 , Expires: 12/22/2021 Start: 10-22-2021 End: 12-22-2021 Comprehensive metabolic 2000 panel - Serum or Plasma COMP METABOLIC PANEL Lab Routine Rheumatoid arthritis involving both hands with positive rheumatoid factor (HCC) Expected: 10/22/2021, Expires: 12/22/2021 [place] Work Phone: Comment on above: Expected: 10/22/2021 , Expires: 12/22/2021 Start: 10-22-2021 End: 12-22-2021 Erythrocyte sedimentation rate SED RATE WESTERGREN Lab Routine Rheumatoid arthritis involving both hands with positive rheumatoid factor (HCC) Expected: 10/22/2021, Expires: 12/22/2021 [place] Work Phone: Comment on above: Expected: 10/22/2021 , Expires: 12/22/2021 Start: 04-25-2021 COVID-19 VACCINE (4 - Booster for Moderna series) COVID-19 VACCINE (4 - Booster for Moderna series) [facility] Start: 04-17-2021 COVID-19 VACCINE (4 - Booster for Moderna series) COVID-19 VACCINE (4 - Booster for Moderna series) [facility] Start: 03-20-2021 COVID-19 VACCINE (4 - Booster for Moderna series) COVID-19 VACCINE (4 - Booster for Moderna series) [facility] Start: 03-06-2021 DEPRESSION ASSESSMENT DEPRESSION ASS ESSMENT [facility] Start: 11-04-2020 Influenza vaccination INFLUENZ A (Season Ended) [facility] Start: 08-10-2020 End: 08-10-2021 BLOOD TB SCREEN, INCUBATED BLOOD TB SCREEN, INCUBATED Lab Routine Rheumatoid arthritis involving both hands with positive rheumatoid factor (HCC) Expected: 08/10/2020, Expires: 08/10/2021 [facility] Comment on above: Expected: 08/10/2020 , Expires: 08/10/2021 Start: 08-10-2020 End: 08-10-2021 CBC W Auto Differential panel - Blood CBC + DIFF Lab Routine Rheumatoid arthritis involving both hands with positive rheumatoid factor (HCC) Expected: 08/10/2020, Expires: 08/10/2021 [facility] Comment on above: Expected: 08/10/2020 , Expires: 08/10/2021 Start: 08-10-2020 End: 08-10-2021 Comprehensive metabolic 2000 panel - Serum or Plasma COMP METABOLIC PANEL Lab Routine Rheumatoid arthritis involving both hands with positive rheumatoid factor (HCC) Expected: 08/10/2020, Expires: 08/10/2021 [facility] Comment on above: Expected: 08/10/2020 , Expires: 08/10/2021 Start: 08-10-2020 End: 08-10-2021 Erythrocyte sedimentation rate SED RATE WESTERGREN Lab Routine Rheumatoid arthritis involving both hands with positive rheumatoid factor (HCC) Expected: 08/10/2020, Expires: 08/10/2021 [facility] Comment on above: Expected: 08/10/2020 , Expires: 08/10/2021 Start: 08-10-2020 End: 08-10-2021 Hepatitis B virus surface Ab [Presence] in Serum by Immunoassay HEP B SURF AG SCRN Lab Routine Rheumatoid arthritis involving both hands with positive rheumatoid factor (HCC) Expected: 08/10/2020, Expires: 08/10/2021 [facility] Comment on above: Expected: 08/10/2020 , Expires: 08/10/2021 Start: 08-10-2020 End: 08-10-2021 Hepatitis C virus Ab [Presence] in Serum HEP C AB IA W/CONF SCRN Lab Routine Rheumatoid arthritis involving both hands with positive rheumatoid factor (HCC) Expected: 08/10/2020, Expires: 08/10/2021 [facility] Comment on above: Expected: 08/10/2020 , Expires: 08/10/2021 Start: 2020 RSV Vaccine (1 - 1-d ose 60+ series) RSV Vaccine (1 - 1-dose 60+ series) [facility] Start: 2020 RSV Vaccine (1 - Ris k 60-74 years 1-dose series) RSV Vaccine (1 - Risk 60-74 years 1-dose series) [facility] Start: 06-18-2020 COVID-19 VACCINE (2 - Moderna 2-dose series) COVID-19 VACCINE (2 - Moderna 2-dose series) [facility] Start: 11-18-2019 Shingrix Vaccine (2 of 2) Shingrix Vaccine (2 of 2) [facility] Start: 05-25-2019 Screening for malign ant neoplasm of breast Mammogram Screening [facility] Start: 07-24-2018 Pneumococcal vaccination [facility] Start: 2010 Screening for malign ant neoplasm of colon [facility] Start: 2010 SHINGRIX VACCINE (1 of 2) SHINGRIX VACCINE (1 of 2) [facility] Start: 2005 COLOGUARD (FIT-DNA) COLOGUARD (FIT-D NA) [facility] Start: 2005 Colonoscopy COLONOSCOPY [facility] Start: 2005 COLORECTAL CANCER SCREENING COLORECTAL CANCER SCREENING [facility] Start: [address] COLONOGRAPHY [facility] Start: 2005 DIABETES SCREEN DIABETES SCREEN [facility] Start: 2005 FECAL OCCULT BLOOD FECAL OCCULT BLOO D [facility] Start: 2005 LIPID SCREEN LIPID SCREEN [facility] Start: 2005 Screening for malign ant neoplasm of colon [facility] Start: 2005 SIGMOIDOSCOPY SIGMOIDOSCOPY [facility] Start: 2000 Mammography [facility] Start: 2000 Screening for malign ant neoplasm of breast Mammogram Screening [facility] Start: 1990 HPV TESTING HPV TESTING [facility] Start: 1990 Screening for malign ant neoplasm of cervix HPV Testing [facility] Start: 1981 PAP TESTING PAP TESTING [facility] Start: 1981 Screening for malign ant neoplasm of cervix Pap Testing [facility] Start: 08-01-1979 SHINGRIX VACCINE (1 of 2) SHINGRIX VACCINE (1 of 2) [facility] Start: 08-01-1979 Urine microalbumin profile [facility] Start: 1978 Anxiety Screening Anxiety Screening [facility] Start: 1978 Depression Screening Depression Scre ening [facility] Start: 1978 HEPATITIS C SCREENING HEPATITIS C SC REENING [facility] Start: 1978 HIV SCREENING HIV SCREENING [facility] Start: 1978 HIV screening HIV Screening [facility] Start: 1972 Adult depression screening assessment DEPRESSION SCREENING [facility] Start: 08-01-1971 Screening for malign ant neoplasm of cervix Cervical Cancer Screening [facility] Start: 1966 PNEUMOCOCCAL (1 - PCV) PNEUMOCOCCAL (1 - PCV) [facility] Start: 1966 Pneumococcal vaccination Pneum ococcal Vaccine (1 - PCV) [facility] Ambulatory blood pressure recording [facility] Basic metabolic 2008 panel with ionized calcium - Serum or Plasma [facility] BLOOD TB SCREEN, INCUBATED BLOOD TB SCREEN, INCUBATED Lab Routine Rheumatoid arthritis involving both hands with positive rheumatoid factor (HCC) 11/19/2021 10:36 AM T [place] Work Phone: BLOOD TB SCREEN, INCUBATED BLOOD TB SCREEN, INCUBATED Lab Routine Rheumatoid arthritis involving both hands with positive rheumatoid factor (HCC) 08/09/2024 2:08 PM [facility] CBC W Auto Different ial panel - Blood CBC + DIFF Lab Routine Rheumatoid arthritis involving both hands with positive rheumatoid factor (HCC) 05/20/2022 9:45 AM EDT [place] Work Phone: End: 09-21-2024 CBC W Auto Differential panel - Blood COMPLETE BLOOD COUNT AND DIFFERENTIAL Lab Routine Rheumatoid arthritis involving both hands with positive rheumatoid factor (HCC) Every 3 months for 4 Occurrences starting 09/22/2023 until 09/21/2024, 1 completed [place] Work Phone: Comment on above: Every 3 months for 4 Occurrences starting 09/22/2023 until 09/21/2024, 1 completed End: 01-17-2025 CBC W Auto Differential panel - Blood COMPLETE BLOOD COUNT AND DIFFERENTIAL Lab Routine Rheumatoid arthritis involving both hands with positive rheumatoid factor (HCC) Every 3 months for 4 Occurrences starting 01/18/2024 until 01/17/2025 [place] Work Phone: Comment on above: Every 3 months for 4 Occurrences starting 01/18/2024 until 01/17/2025 CBC W Auto Different ial panel - Blood COMPLETE BLOOD COUNT AND DIFFERENTIAL Lab Routine Rheumatoid arthritis involving both hands with positive rheumatoid factor (HCC) 01/18/2024 8:50 AM [facility] End: 04-11-2025 CBC W Auto Differential panel - Blood COMPLETE BLOOD COUNT AND DIFFERENTIAL Lab Routine Rheumatoid arthritis involving both hands with positive rheumatoid factor (HCC) Every 3 months for 4 Occurrences starting 04/11/2024 until 04/11/2025 [place] Work Phone: Comment on above: Every 3 months for 4 Occurrences starting 04/11/2024 until 04/11/2025 End: 08-09-2025 CBC W Auto Differential panel - Blood COMPLETE BLOOD COUNT AND DIFFERENTIAL Lab Routine Rheumatoid arthritis involving both hands with positive rheumatoid factor (HCC) Every 3 months for 4 Occurrences starting 08/09/2024 until 08/09/2025 [place] Work Phone: Comment on above: Every 3 months for 4 Occurrences starting 08/09/2024 until 08/09/2025 Comprehensive metabo lic 2000 panel - Serum or Plasma COMP METABOLIC PANEL Lab Routine Rheumatoid arthritis involving both hands with positive rheumatoid factor (HCC) 05/20/2022 9:45 AM EDT [place] Work Phone: End: 09-21-2024 Comprehensive metabolic 2000 panel - Serum or Plasma COMPREHENSIVE METABOLIC PANEL Lab Routine Rheumatoid arthritis involving both hands with positive rheumatoid factor (HCC) Every 3 months for 4 Occurrences starting 09/22/2023 until 09/21/2024, 1 completed [facility] Comment on above: Every 3 months for 4 Occurrences starting 09/22/2023 until 09/21/2024, 1 completed End: 01-17-2025 Comprehensive metabolic 2000 panel - Serum or Plasma COMPREHENSIVE METABOLIC PANEL Lab Routine Rheumatoid arthritis involving both hands with positive rheumatoid factor (HCC) Every 3 months for 4 Occurrences starting 01/18/2024 until 01/17/2025 [facility] Comment on above: Every 3 months for 4 Occurrences starting 01/18/2024 until 01/17/2025 Comprehensive metabo lic 2000 panel - Serum or Plasma COMPREHENSIVE METABOLIC PANEL Lab Routine Rheumatoid arthritis involving both hands with positive rheumatoid factor (HCC) 01/18/2024 8:50 AM EST [facility] End: 04-11-2025 Comprehensive metabolic 2000 panel - Serum or Plasma COMPREHENSIVE METABOLIC PANEL Lab Routine Rheumatoid arthritis involving both hands with positive rheumatoid factor (HCC) Every 3 months for 4 Occurrences starting 04/11/2024 until 04/11/2025 [facility] Comment on above: Every 3 months for 4 Occurrences starting 04/11/2024 until 04/11/2025 End: 08-09-2025 Comprehensive metabolic 2000 panel - Serum or Plasma COMPREHENSIVE METABOLIC PANEL Lab Routine Rheumatoid arthritis involving both hands with positive rheumatoid factor (HCC) Every 3 months for 4 Occurrences starting 08/09/2024 until 08/09/2025 [facility] Comment on above: Every 3 months for 4 Occurrences starting 08/09/2024 until 08/09/2025 End: 07-14-2025 DXA Skeletal system.axial Views for bone density DXA-AXIAL SKELETON Radiology Routine Asymptomatic postmenopausal status 1 Occurrences starting 06/14/2024 until 07/14/2025 [place] Work Phone: Comment on above: 1 Occurrences starti ng 06/14/2024 until 07/14/2025 End: 03-06-2023 DXA-AXIAL SKELETON DXA-AXIAL SKELETON Radiology Routine Asymptomatic postmenopausal status 1 Occurrences starting 02/04/2022 until 03/06/2023 [place] Work Phone: Comment on above: 1 Occurrences starti ng 02/04/2022 until 03/06/2023 Erythrocyte sedimentation rate SED RATE WESTERGREN Lab Routine Rheumatoid arthritis involving both hands with positive rheumatoid factor (HCC) 11/19/2021 10:36 AM EDT [place] Work Phone: Erythrocyte sedimentation rate SED RATE WESTERGREN Lab Routine Rheumatoid arthritis involving both hands with positive rheumatoid factor (HCC) 03/31/2022 10:47 AM [facility] Work Phone: Erythrocyte sedimentation rate SED RATE WESTERGREN Lab Routine Rheumatoid arthritis involving both hands with positive rheumatoid factor (HCC) 05/20/2022 9:45 AM [facility] Work Phone: Erythrocyte sedimentation rate SED RATE WESTERGREN Lab Routine Rheumatoid arthritis involving both hands with positive rheumatoid factor ([facility]) 01/20/2023 10:51 AM [facility] Work Phone: Erythrocyte sedimentation rate SEDIMENTATION RATE, WESTERGREN Lab Routine Rheumatoid arthritis involving both hands with positive rheumatoid factor ([facility]) 08/09/2024 2:08 PM T [place] Work Phone: Hemoglobin.gastroint glynn nal.lower [Presence] in Stool by Immunoassay IMMUNOCHEMICAL FECAL OCCULT BLOOD TEST Lab Routine Anemia, chronic disease Ordered: 01/20/2024 [facility] Comment on above: Ordered: 01/20/2024 IR PERIPH INSERTED T [place] IR PERIPH INSERTED [place] Radiology Routine Rheumatoid arthritis involving both hands with positive rheumatoid factor (HCC) Ordered: 07/19/2021 [place] Work Phone: Comment on above: Ordered: 07/19/2021 Patient Education [facility] Work Phone: Patient referral [facility] Work Phone: [facility] Immunizations Immunization Date Immunization Notes Care Provider [facility] 01-12-2024 influenza, seasonal, injectable, preservative free Paul Greco MD Work Phone: [facility] 01-12-2023 influenza virus vaccine, unspecified formulation Cheyenne Garcia PA-C Work Phone: [facility] 01-13-2022 influenza virus vaccine, unspecified formulation Robert Farias MD Work Phone: [facility] Payers Date Payer Category Payer Unknown [id number] 2024 Self-pay [id number] 2020 Private Health Insurance [facility] KARINA [id number] 2020 Unknown [id number]. [id number] 2020 Unknown [id number]. [id number]. [id number] 2020 Unknown [id number] 1960 Unknown [id number] 2.16.840.1.072678.3.579.2. 627 Medicaid MEDICAID [id number] Unknown [id number] 2.16.840.1.301850.3.579.2. 462 Unknown [id number] 2.16.840.1.498746.3.579.2. 462 Unknown [id number] 2.16.840.1.092366.3.579.2. 462 Unknown [id number] 2.16.840.1.343214.3.579.2. 462 Unknown [id number] 2.16.840.1.710512.3.579.2. 462 Unknown [id number] 2.16.840.1.131418.3.579.2. 462 Unknown [id number] 2.16.840.1.347001.3.579.2. 462 Unknown [id number] 2.16.840.1.051231.3.579.2. 462 Unknown [id number] 2.16.840.1.291527.3.579.2. 462 Unknown [id number] 2.16.840.1.115147.3.579.2. 462 Unknown [id number] 2.16.840.1.005190.3.579.2. 462 Unknown [id number] 2.16.840.1.943997.3.579.2. 462 Unknown [id number] 2.16.840.1.816292.3.579.2. 462 Unknown [id number] 2.16.840.1.084594.3.579.2. 462 Unknown [id number] 2.16.840.1.723736.3.579.2. 462 Unknown [id number] 2.16.840.1.944891.3.579.2. 462 Unknown [id number] 2.16.840.1.770368.3.579.2. 462 Unknown [id number] 2.16.840.1.434698.3.579.2. 462 Unknown [id number] 2.16.840.1.937506.3.579.2. 462 Unknown [id number] 2.16840.1.031235.3.579.2. 462 Unknown [id number] 2.16840.1.550631.3.579.2. 462 Unknown [id number] 2.16840.1.430528.3.579.2. 462 Unknown [id number] 2.840.1.820264.3.579.2. 462 Unknown [id number] 2.840.1.945105.3.579.2. 462 Unknown [id number] 2.840.1.691919.3.579.2. 462 Unknown [id number] 2.16840.1.152638.3.579.2. 462 Unknown [id number] 2.16840.1.671449.3.579.2. 462 Unknown [id number] 2.16840.1.112166.3.579.2. 462 Unknown [id number] 2.16.840.1.772136.3.579.2. 462 Unknown [id number] 2.16840.1.250426.3.579.2. 462 Unknown [id number] 2.16.840.1.303863.3.579.2. 462 Unknown [id number] 2.16.840.1.853318.3.579.2. 462 Unknown [id number] 2.16840.1.324341.3.579.2. 462 Unknown [id number] 2.16.840.1.191666.3.579.2. 462 Unknown [id number] 2.16.840.1.931560.3.579.2. 462 Social History Date Type Detail Facility Start: 06-19-2020 End: 07-25-2024 Tobacco smoking status NHIS Never smoker [facility] Start: 06-19-2020 End: 09-29-2023 Tobacco use and exposure Never used [facility] Start: 06-19-2020 End: 06-14-2024 Alcohol intake Ex-drinker (finding) [facility] Start: 1960 Sex Assigned At Not on file [facility] Start: 06-15-2021 End: 10-22-2021 Exposure to SARS-CoV-2 (event) Not sure [facility] Start: 1960 Sex Assigned At Female [facility] Start: 10-22-2021 End: 07-08-2022 History of Social function [facility] Start: 10-22-2021 End: 07-08-2022 Tobacco use panel [facility] National Score (1-10 0), lower number is lower risk 74 [facility] Start: 05-16-2024 End: 05-27-2024 Sex Female (finding) [facility] Medical Equipment Procedure Code Equipment Code Equipment Origin al Text Equipment Identifier Dates [employer] I sp Mri 8fr Implantable Infusion 1 Lumen Attachable - [id number] Start: 09-21-2021 Goals Date Patient Goal Desired Activity /State Functional Status Date Assessment Result Facility 05-27-2024 Functional status Ambulates;Bathroom Priv ilege [facility] Work Phone: Mental Status Date Assessment Result Facility 07-25-2024 Cognitive function Voice/Name [facility] Work Phone: 07-03-2024 Cognitive function Voice/Name [facility] Work Phone: 05-27-2024 Cognitive function Voice/Name [facility] Work Phone: 04-15-2024 Cognitive function Level Of Cons ciousness Sedated [facility] Work Phone: 04-15-2024 Cognitive function Patient Orien tation Person;Place;Time [facility] Work Phone: 03-10-2024 Cognitive function Awake;Alert;A ppropriate;Follo ws Commands [facility] Work Phone: 02-09-2024 Cognitive function Voice/Name [facility] Work Phone: Clinical Notes 06-19-2020 to 08-14-2024 Telephone Encounter - Ann Marie Frank MA - 08/14/2024 8:51 AM EDTTelephone Encounter - Ann Marie Frank MA - 08/14/2024 8:51 AM EDTTelephone Encounter - Ann Marie Frank MA - 08/14/2024 8:45 AM EDT Note Date & Type Note Facility 08-14-2024 Telephone encounter Note Patient sent a [employer] message requesting the following refill. Requested Prescriptions Pending Prescriptions Disp Refills tiZANidine (ZANAFLEX) 2 mg tablet 30 tablet 2 Sig: Take 1 tablet by mouth daily at bedtime. Patient last appointment: 06/14/2024 Next Appointment: 10/25/2024 Patient Phone numbers: [phone] (home) Request is for script(s) to be escript to pharmacy. Ann Marie Frank MA [facility] 08-14-2024 Miscellaneous Notes Patient sent a [employer] message requesting the following refill. Requested Prescriptions Pending Prescriptions Disp Refills tiZANidine (ZANAFLEX) 2 mg tablet 30 tablet 2 Sig: Take 1 tablet by mouth daily at bedtime. Patient last appointment: 06/14/2024 Next Appointment: 10/25/2024 Patient Phone numbers: [phone] (home) Request is for script(s) to be escript to pharmacy. Ann Marie Frank MA documented in this encounter [facility] 08-14-2024 Telephone encounter Note Patient sent a MyChart message requesting the following refill. On patient's medication list: Sig: take 6 tablets by mouth once every week Requested Prescriptions Pending Prescriptions Disp Refills methotrexate 2.5 mg tablet 72 tablet 1 Patient last appointment: 06/14/2024 Next Appointment: 10/25/24 Patient Phone numbers: [phone] (home) Request is for script(s) to be escript to pharmacy. Ann Marie Frank MA [facility] 08-14-2024 Miscellaneous Notes Patient sent a MyChart message requesting the following refill. On patient's medication list: Sig: take 6 tablets by mouth once every week Requested Prescriptions Pending Prescriptions Disp Refills methotrexate 2.5 mg tablet 72 tablet 1 Patient last appointment: 06/14/2024 Next Appointment: 10/25/24 Patient Phone numbers: [phone] (home) Request is for script(s) to be escript to pharmacy. Ann Marie Frank MA documented in this encounter [facility] 08-12-2024 Note Addended by: ROBERT FARIAS on: 08/12/2024 07:36 PM Modules accepted: Orders [facility] 08-12-2024 Miscellaneous Notes Addended by: ROBERT FARIAS on: 08/12/2024 07:36 PM Modules accepted: Orders Ordered Robert Farias MD Isael from [facility] states the TB test will need reordered. The lab did draw the specimen but the tubes were under filled. Brynn Fofana LPN documented in this encounter [facility] 08-12-2024 Telephone encounter Note Ordered Robert Farias MD [facility] 08-12-2024 Telephone encounter Note Isael from [facility] states the TB test will need reordered. The lab did draw the specimen but the tubes were under filled. Brynn Fofana LPN [facility] 08-09-2024 Note HNO ID: [id number] Author: RYAN VASQUEZ RN Service: ? Author Type: Registered Nurse Type: Progress Notes Filed: 08/09/2024 15:27 Note Text: 14:27 Pt getting inflectra infusion and c/o vertigo and headache. She states it is not from the inflectra and has had 3 other similar episodes recently with ER visits. Pt states they are not able to find anything wrong and this is so weird. Pt BP elevated 160/80 and then 5 min later 140/80. HR remained in the 70's. Pt stated after about 3-5 minutes she was starting to feel better but now had tingling in feet. Pt A/O x 4 with brother (mechanic welder truck driver) present. She states she has started to monitor herself at home. She has upcoming MRI scheduled and is anxious to see what it shows. 15:07 Pt states she is having another episode. RN suggests pt needs to get checked out in ER and she declines. Pt discharged from infusion center. Pts brother is driving her to his home tonight since she does not feel it would be helpful to be seen in ER. Pt states she is going to call her civil preparedness training officer and PCP. [facility] 08-09-2024 History of Present illness Narrative 14:27 Pt getting inflectra infusion and c/o vertigo and headache. She states it is not from the inflectra and has had 3 other similar episodes recently with ER visits. Pt states they are not able to find anything wrong and this is so weird. Pt BP elevated 160/80 and then 5 min later 140/80. HR remained in the 70's. Pt stated after about 3-5 minutes she was starting to feel better but now had tingling in feet. Pt A/O x 4 with brother (mechanic welder truck driver) present. She states she has started to monitor herself at home. She has upcoming MRI scheduled and is anxious to see what it shows. 15:07 Pt states she is having another episode. RN suggests pt needs to get checked out in ER and she declines. Pt discharged from infusion center. Pts brother is driving her to his home tonight since she does not feel it would be helpful to be seen in ER. Pt states she is going to call her civil preparedness training officer and PCP. documented in this encounter [facility] 07-18-2024 Telephone encounter Note Yue Contrerasw - PENDING [id number] [employer] Analyst [facility] 07-18-2024 Miscellaneous Notes Yue Contrerasw - PENDING [id number] [employer] Analyst documented in this encounter [facility] 07-09-2024 Telephone encounter Note Pharmacy faxed requesting the following refill Refill(s) Requested: Requested Prescriptions Pending Prescriptions Disp Refills hydrOXYchloroQUINE (PLAQUENIL) 200 mg tablet [Pharmacy Med Name: HYDROXYCHLOROQUINE 200 MG TAB] 90 tablet 0 Sig: take 1 tablet by mouth once daily ALLERGIES Allergen Reactions Demerol [Meperidine] Other: See Comments Lowered blood pressure extremely low Sulfa (Sulfonamide * GI Upset Stomach pain severe (home) [phone] (cell) Last Office Visit Date: 06/14/2024 Last Distance Health Visit: Visit date not found Future Appointment: Visit date not found The patients preferred pharmacy has been captured for this encounter? yes Request is for script(s) to be escript to pharmacy. Brynn Fofana LPN [facility] 07-09-2024 Miscellaneous Notes Pharmacy faxed requesting the following refill Refill(s) Requested: Requested Prescriptions Pending Prescriptions Disp Refills hydrOXYchloroQUINE (PLAQUENIL) 200 mg tablet [Pharmacy Med Name: HYDROXYCHLOROQUINE 200 MG TAB] 90 tablet 0 Sig: take 1 tablet by mouth once daily ALLERGIES Allergen Reactions Demerol [Meperidine] Other: See Comments Lowered blood pressure extremely low Sulfa (Sulfonamide * GI Upset Stomach pain severe (home) [phone] (cell) Last Office Visit Date: 06/14/2024 Last Distance Health Visit: Visit date not found Future Appointment: Visit date not found The patients preferred pharmacy has been captured for this encounter? yes Request is for script(s) to be escript to pharmacy. Brynn Fofana LPN documented in this encounter [facility] 06-14-2024 Instructions Robert Farias MD - 06/14/2024 [...] usual activities immediately. documented in this encounter [facility] 06-14-2024 Note HNO ID: [id number] Author: ROBERT FARIAS MD Service: ? Author Type: Physician Type: Progress Notes Filed: 06/14/2024 17:16 Note Text: This note was created using PowerPractical[employer]. Subjective Jaylin Carroll is a 63 year [...] Plan First visit 06/19/2020 ( moved from [place] ) RA and wants treatment for that 06/24 ( Q 4 months )) VA coronary artery disease cannot use NSAID.. RA [...] 2nd 3 rd MCP ) Dr. Mendes [place] [facility] [place] [facility] : 01/2020 last [...] NSAID ) (( 01/2024 NSAID stopped as VA ) (( no GI bleed, stool blood [...] 2017 and then 2023 ) (( PPSV23 2017 done )) prevnar 21 done 2024 coronary artery d (more content not included)... [facility] 06-14-2024 History of Present illness Narrative This note was created using [employer]. Subjective Jaylin Carroll is a 63 year [...] Plan First visit 06/19/2020 ( moved from [place] ) RA and wants treatment for that 06/24 ( Q 4 months )) VA coronary artery disease cannot use NSAID.. RA [...] 2nd 3 rd MCP ) Dr. Mendes [place] [facility] [place] [facility] : 01/2020 last [...] ) ) 10/25 02/24 05/26 08/26 10.23 04/2906/14/2024 remission . ( coronary artery disease will [...] NSAID ) (( 01/2024 NSAID stopped as VA ) (( no GI bleed, stool blood [...] :: hospitalized pneumonia 2023, found to have VA ) ( NSTEMI ) 2023 CTA chest [...] neg 2016 Colonoscopy last 2023 cologuard neg Osteopenia 2023 [...] 90 min low impact. 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 ( leukemia age 43 ) 06/24 2 son in [facility] 06/19/2020 Brother 2 healthy 06/19/2020 3 sister healthy 06/19/2020 Mother 58 ( CHF cancer spinal from breast ) 06/19/2020 ( did not smoke ) Father brain aneurysm 67 06/19/2020 ( did smoke) 02/23 COVID cough, sneezing, sore throat, no temp etc . 03/2023 COVID pneumonia and VA documented in this encounter [facility] 05-28-2024 Telephone encounter Note Kirill Contreras - PENDING GINA [facility] [employer], Parts Analyst [facility] 05-28-2024 Miscellaneous Notes Yue Contrerasw - PENDING [facility] [employer] documented in this encounter [facility] 05-27-2024 Discharge summary [facility] 05-27-2024 Consult note [facility] 05-27-2024 Discharge summary [facility] 05-27-2024 Note [facility] 05-27-2024 History and physi costa note Note Date/Time May 27, 2024 3:28am [facility] Medical Records Department [address] [place] [address] H&P Exam - Hospitalist 05/27/24 0227 MR#: [id number] Acct: [id number] Name: JAYLIN CARROLL Rep #:[id number] : 1960 63 From: Natalie Gaspar MD PCP: Dr. Paul Greco MD Status:ADM IN O Location: [place] [address] HPI - General General Date of Admission: 05/27/24 Date of Service: 05/27/24 Chief Complaint: Chest pain, lightheadedness/near syncopal. HPI Narrative The patient is a 63 y/o F w/ PMHx: Hypothyroidism, Rheumatoid arthritis, HTN, HLD, Chronic asthma with allergic rhinitis, Obesity, Diabetes mellitus type II, Chronic anemia/Fe deficiency anemia, Hx NSTEMI w01/12/24 Cardiac catheterization with normal angiographically bifurcating left [...] future capsule endoscopy. Patient presented to the [facility] initially on 05/26/2024 secondary [...] at baseline. Upon transfer and evaluation at [facility] upon arrival patient does have reproducible [...] 1, magnesium 2 [address] [facility] Medical History Wears partial dentures Wears glasses [...] 5 mg tablet 5 mg PO 1200 02/07/25 03/24/ 25 History hydralazine 25 mg tablet 25 mg [...] to 50% who now presents to the [facility] as a direct admission on 05/27/24 with initiall presentation to the [facility] [place] initially on 05/26/2024secondary to history of onset [...] at outside facility however initial obtained at [facility] 7 thus unclear if these were [...] Code status. Charges/Coding Visit Charges Inpatient E&M: 81461 Init Hosp L3 05/27/24 0328 <Electronically signed by Natalie Gaspar MD> Cosigner Signature (if applicable): CC: Dr. Natalie Gaspar MD; Dr. Paul Greco MD~ Signed [facility] Work Phone: 1(745) 262-710303-24-2025 History and physical note [facility] Medical Records Department [address] [place] [address] H&P Exam - Hospitalist 05/27/24226 MR#: [id number] Acct: [id number] Name: JAYLIN CARROLL Rep #:[id number] : 1960 63 From: Natalie Gaspar MD PCP: Dr. Paul Greco MD Status:ADM IN O Location: [place] [address]- 1 HPI - General General Date of [...] future capsule endoscopy. Patient presented to the [facility] initially on 05/26/2024 secondary to history of onset of chest discomfort just as she was getting ready for bed with sudden onset sternal aching nonradiating starting at approximately 7 PM initially sharp and then became more aching 10/13 in severity with concurrent onset mild lightheadedness and some bilateral paresthesias sensations to the face and LUE with near syncopal type sensation prompting EMS call. She denied any nausea or emesis nor any dyspnea or diaphoresis to the outside [facility] ED. EMS administered full-strength aspirin and nitroglycerin. [...] at baseline. Upon transfer and evaluation at [facility] upon arrival patient does have reproducible [...] 1, magnesium [address] [facility] Medical History Wears partial dentures Wears glasses [...] to 50% who now presents to the [facility] as a direct admission on 05/27/24 with initiall presentation to the OSH ED [facility] initially on 05/26/2024secondary to history of [...] at outside facility however initial obtained at [facility] 7 thus unclear if these were [...] Code status. Charges/Coding Visit Charges Inpatient E&M: 74693 Init Hosp L3 05/27/24 0327 Cosigner Signature (if applicable): CC: Dr. Natalie Gaspar MD; Dr. Paul Greco MD~ Signed [facility]02-25-2025 Evaluation note* Diagnosis Onset Date Resolution Status Admit Date Anemia acute April 30, 2024 7:58am Chest pain inactive May 27 1:28am Anemia acute May 29 7:45am Hypertension chronic May 31, 2024 9:02am Chest pain inactive May 31 9:02am Hypertension chronic July 30 8:18am [facility] Work Phone: 1(163) 990-425002-10-2025 Evaluation note* Diagnosis Onset Date Resolution Status Admit Date Anemia acute April 15, 2024 10:42am Anemia acute April 30, 2024 7:58am Chest pain inactive May 27 1:28am Anemia acute May 29 7:45am Hypertension chronic May 31, 2024 9:02am Chest pain inactive May 31 9:02am Hypertension chronic July 30 8:18am [facility] Work Phone: 1(406) 387-773002-10-2025 [facility]02-05-2025 Telephone encounter Note* Telephone Encounter - Ashley Bedoya MA - 04/10/2024 2:15 PM EST Pharmacy sent a [employer] message requesting the following refill. Requested Prescriptions Pending Prescriptions Disp Refills hydrOXYchloroQUINE (PLAQUENIL) 200 mg tablet [Pharmacy Med Name: HYDROXYCHLOROQUINE 200 MG TAB] 90 tablet 0 Sig: take 1 tablet by mouth once daily Patient last appointment: 02/05/2024 Next Appointment: 06/14/2024 Patient Phone numbers: [phone] (home) Request is for script(s) to be escript to pharmacy. Ashley Bedoya MA [facility]02-05-2025 Miscellaneous Notes* Telephone Encounter - Ashley Bedoya MA - 04/10/2024 2:15 PM EST Pharmacy sent a [employer] message requesting the following refill. Requested Prescriptions Pending Prescriptions Disp Refills hydrOXYchloroQUINE (PLAQUENIL) 200 mg tablet [Pharmacy Med Name: HYDROXYCHLOROQUINE 200 MG TAB] 90 tablet 0 Sig: take 1 tablet by mouth once daily Patient last appointment: 02/05/2024 Next Appointment: 06/14/2024 Patient Phone numbers: [phone] (home) Request is for script(s) to be escript to pharmacy. Ashley Bedoya MA documented [facility]02[facility] Telephone encounter Note * Telephone Encounter - Ashley Bedoya MA - 04/08/2024 8:10 AM EST Ignore, already approved. [facility]02-03-2025 Miscellaneous Notes* Telephone Encounter - Ashley Bedoya MA - 04/08/2024 8:10 AM EST Ignore, already approved. documented in this encounterSamaritan Hospital02-03-2025 Telephone encounter Note * Telephone Encounter - Ashley Bedoya MA - 04/08/2024 8:09 AM EST Pharmacy sent a [employer] message requesting the following refill. Requested Prescriptions Pending Prescriptions Disp Refills tiZANidine (ZANAFLEX) 2 mg tablet 30 tablet 2 Sig: Take 1 tablet by mouth daily at bedtime. Patient last appointment: 02/05/2024 Next Appointment: 06/14/2024 Patient Phone numbers: [phone] (home) Request is for script(s) to be escript to pharmacy. Ashley Bedoay MA [facility]02-03-2025 Miscellaneous Notes* Telephone Encounter - Ashley Bedoya MA - 04/08/2024 8:09 AM EST Pharmacy sent a [employer] message requesting the following refill. Requested Prescriptions Pending Prescriptions Disp Refills tiZANidine (ZANAFLEX) 2 mg tablet 30 tablet 2 Sig: Take 1 tablet by mouth daily at bedtime. Patient last appointment: 02/05/2024 Next Appointment: 06/14/2024 Patient Phone numbers: [phone] (home) Request is for script(s) to be escript to pharmacy. Ashley Bedoya MA documented in this encounterSam[facility] Hospital01-27-2025 Telephone encounter Note * Telephone Encounter - Ashley Bedoya MA - 04/01/2024 9:08 AM EST Pharmacy sent a [employer] message requesting the following refill. Requested Prescriptions Pending Prescriptions Disp Refills folic acid 1 mg tablet [Pharmacy Med Name: FOLIC ACID 1 MG TABLET] 90 tablet 1 Sig: take 1 tablet by mouth once daily Patient last appointment: 02/05/2024 Next Appointment: 06/14/2024 Patient Phone numbers: [phone] (home) Request is for script(s) to be escript to pharmacy. Ashley Bedoya MA [facility]01-27-2025 Miscellaneous Notes* Telephone Encounter - Ashley Bedoya MA - 04/01/2024 9:08 AM EST Pharmacy sent a [employer] message requesting the following refill. Requested Prescriptions Pending Prescriptions Disp Refills folic acid 1 mg tablet [Pharmacy Med Name: FOLIC ACID 1 MG TABLET] 90 tablet 1 Sig: take 1 tablet by mouth once daily Patient last appointment: 02/05/2024 Next Appointment: 06/14/2024 Patient Phone numbers: [phone] (home) Request is for script(s) to be escript to pharmacy. Ashley Bedoya MA documented in this encounterSam[facility] Hospital12-03-2024 Evaluation note* Diagnosis Onset Date Resolution Status Admit Date Anemia acute February 06, 2024 9:25am Anemia acute February 26, 2024 9:09am Hypertension chronic February d2023 9:09am NSTEMI, initial episode of care resolved February 25, 2 024 9:09am Anemia acute April 15, 2024 10:42am Anemia acute April 30, 2024 7:58am [facility] Work Phone: 1(693) 610-349712-03-2024 Evaluation note* Diagnosis Onset Date Resolution Status Admit Date Anemia acute February 06, 2024 9:25am Anemia acute February 26, 2024 9:09am Hypertension chronic February 9:09am NSTEMI, initial episode of care resolved February 25, 2 024 9:09am Anemia acute April 15, 2024 10:42am Anemia acute April 30, 2024 7:58am Chest pain acute May 27 1:28am [facility] Work Phone: 1(404) 937-193712-02-2024 NoteHNO ID: [id number] Author: ROBERT FARIAS MD Service: ? Author Type: Physician Type: Progress Notes Filed: 04/13/2024 12:51 Note Text: This note was created using NoteWriter. Subjective Jaylin Carroll is a 63 year old female. [place] (( was sick with pneumonia and was [...] Plan First visit 06/19/2020 ( moved from [place] ) RA and wants treatment for that 06/24 ( Q 4 months )) [place] coronary artery disease cannot use NSAID RA [...] 2nd 3 rd MCP ) Dr. Mendes [place] [facility] [place] [facility] : 01/2020 last [...] NSAID ) (( 01/2024 NSAID stopped as VA ) (( no GI bleed, stool blood [...] :: hospitalized pneumonia 2023, found to have VA ) ( NSTEMI ) 2023 CTA chest [...] neg 2015 Colonoscopy last 2023 cologuard neg (more content not included)...[facility] 02-05-2024 History of Present illness Narrative* Robert Farias MD - 02/05/2024 9:18 AM EST This note was created using NoteWriter. Subjective Jaylin Carroll is a 63 year old female. [place] (( was sick with pneumonia and was [...] Plan First visit 06/19/2020 ( moved from [place] ) RA and wants treatment for that 06/24 ( Q 4 months )) [place] coronary artery disease cannot use NSAID RA [...] 2nd 3 rd MCP ) Dr. Mendes [place] [facility] [place] [facility] : 01/2020 last [...] 09 ) ) 10/25 02/24 05/26 08/26 10.04/29 remission . Optha pending, ( working [...] normal 01/18/24 cmp cr 0.46, Anemia 2023 9.4/30.9 low (( not on NSAID ) (( 01/2024 NSAID stopped as VA ) (( no GI bleed, stool blood [...] :: hospitalized pneumonia 2023, found to have VA ) ( NSTEMI ) 2023 CTA chest [...] 90 min low impact. 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 ( leukemia age 43 ) 06/24 2 son in [facility] 06/19/2020 Brother 2 healthy 06/19/2020 3 sister [...] visit. Either the patient or their legal appliance service representative has been informed of the risks and benefits of -- and alternatives to -- treatment through a remote evaluation and consents to proceed with the evaluation remotely. I spent a total of 30 minutes on the date of the service which included [id number] patient care. documented in this encounterSamaritan Hospital11-18-2024 Telephone encounter Note * Telephone Encounter - Ashley Bedoya MA - 01/22/2024 10:26 AM EST Pharmacy sent a [employer] message requesting the following refill. Requested Prescriptions Pending Prescriptions Disp Refills tiZANidine (ZANAFLEX) 2 mg tablet [Pharmacy Med Name: TIZANIDINE HCL 2 MG TABLET] 60 tablet 2 Sig: TAKE 1 TO 3 TABLETS BY MOUTH AT BEDTIME IF NEEDED Patient last appointment: 09/29/2023 Next Appointment: 02/05/2024 Patient Phone numbers: [phone] (home) Request is for script(s) to be escript to pharmacy. Ashley Bedoya MA [facility]11-18-2024 Miscellaneous Notes* Telephone Encounter - Ashley Bedoya MA - 01/22/2024 10:26 AM EST Pharmacy sent a [employer] message requesting the following refill. Requested Prescriptions Pending Prescriptions Disp Refills tiZANidine (ZANAFLEX) 2 mg tablet [Pharmacy Med Name: TIZANIDINE HCL 2 MG TABLET] 60 tablet 2 Sig: TAKE 1 TO 3 TABLETS BY MOUTH AT BEDTIME IF NEEDED Patient last appointment: 09/29/2023 Next Appointment: 02/05/2024 Patient Phone numbers: [phone] (home) Request is for script(s) to be escript to pharmacy. Ashley Bedoya MA documented in this encounterSamaritan Hospital11-18-2024 Telephone encounter Note * Telephone Encounter - Brynn Fofana LPN - 01/22/2024 9:14 AM EST Pt was discharged on Monday after a two day stay at [facility] diagnosed with pneumonia andMI (NSTEMI). Discharge summary in Epic (care everywhere). Pt had a heart cath done without intervention but was started on plavix. ABX tx has been completed and pt also was diagnosed with anemia and started on oral iron. Pt is to follow up with GI and that appointment will be made with a provider in the [place] area. Pt reports that the stool for OB was negative in the hospital. Pt would prefer to follow up with GI and not do the additional blood work as ordered by Dr.Singh neri has many post admission follow ups scheduled. Brynn Fofana LPN [facility]11-18-2024 Miscellaneous Notes* Telephone Encounter - Brynn Fofana LPN - 01/22/2024 9:14 AM EST Pt was discharged on Monday after a two day stay at [facility] diagnosed with pneumonia andMI (NSTEMI). Discharge summary in [facility] (care everywhere). Pt had a heart cath done without intervention but was started on plavix. ABX tx has been completed and pt also was diagnosed with anemia and started on oral iron. Pt is to follow up with GI and that appointment will be made with a provider in the [place] area. Pt reports that the stool for [...] test Robert Farias MD documented in this encounterSamaritan Hospital11-16-2024 Telephone encounter Note * Telephone Encounter - Robert Farias MD - 01/20/2024 2:57 PM EST Please let her know labs show anemia Get test done ordered Also stool test Robert Farias MD [facility]11-09-2024 [facility]11-07-2024 Telephone encounter Note* Telephone Encounter - Ashley Bedoya MA - 01/11/2024 1:12 PM EST Pharmacy sent a [employer] message requesting the following refill. Requested Prescriptions Pending Prescriptions Disp Refills hydrOXYchloroQUINE (PLAQUENIL) 200 mg tablet [Pharmacy Med Name: HYDROXYCHLOROQUINE 200 MG TAB] 90 tablet 0 Sig: take 1 tablet by mouth once daily Patient last appointment: 09/29/2023 Next Appointment: 02/05/2024 Patient Phone numbers: [phone] (home) Request is for script(s) to be escript to pharmacy. Ashley Bedoya MA [facility]11-07-2024 Miscellaneous Notes* Telephone Encounter - Ashley Bedoya MA - 01/11/2024 1:12 PM EST Pharmacy sent a [employer] message requesting the following refill. Requested Prescriptions Pending Prescriptions Disp Refills hydrOXYchloroQUINE (PLAQUENIL) 200 mg tablet [Pharmacy Med Name: HYDROXYCHLOROQUINE 200 MG TAB] 90 tablet 0 Sig: take 1 tablet by mouth once daily Patient last appointment: 09/29/2023 Next Appointment: 02/05/2024 Patient Phone numbers: [phone] (home) Request is for script(s) to be escript to pharmacy. Ashley Bedoya MA documented in this encounterSamaritan Hospital09-17-2024 Telephone encounter Note * Telephone Encounter - Ashley Bedoya MA - 11/21/2023 9:10 AM EDT Patient sent a [employer] message requesting the following refill. Requested Prescriptions Pending Prescriptions Disp Refills tiZANidine (ZANAFLEX) 2 mg tablet 60 tablet 2 Sig: take 1 to 3 tablets by mouth at bedtime if needed Patient last appointment: 09/29/2023 Next Appointment: 02/05/2024 Patient Phone numbers: [phone] (home) Request is for script(s) to be escript to pharmacy. Ashley Bedoya MA [facility]09-17-2024 Miscellaneous Notes* Telephone Encounter - Ashley Bedoya MA - 11/21/2023 9:10 AM EDT Patient sent a [employer] message requesting the following refill. Requested Prescriptions Pending Prescriptions Disp Refills tiZANidine (ZANAFLEX) 2 mg tablet 60 tablet 2 Sig: take 1 to 3 tablets by mouth at bedtime if needed Patient last appointment: 09/29/2023 Next Appointment: 02/05/2024 Patient Phone numbers: [phone] (home) Request is for script(s) to be escript to pharmacy. Ashley Bedoya MA documented in this encounterSamaritan Hospital09-17-2024 Telephone encounter Note * Telephone Encounter - Ashley Bedoya MA - 11/21/2023 9:09 AM EDT Patient sent a [employer] message requesting the following refill. Requested Prescriptions Pending Prescriptions Disp Refills methotrexate 2.5 mg tablet 96 tablet 0 Sig: Take 8 tablets by mouth one time a week. Patient last appointment: 09/29/2023 Next Appointment: 11/20/2023 Patient Phone numbers: [phone] (home) Request is for script(s) to be escript to pharmacy. Ashley Bedoya MA [facility]09-17-2024 Miscellaneous Notes* Telephone Encounter - Ashley Bedoya MA - 11/21/2023 9:09 AM EDT Patient sent a MyChart message requesting the following refill. Requested Prescriptions Pending Prescriptions Disp Refills methotrexate 2.5 mg tablet 96 tablet 0 Sig: Take 8 tablets by mouth one time a week. Patient last appointment: 09/29/2023 Next Appointment: 11/20/2023 Patient Phone numbers: [phone] (home) Request is for script(s) to be escript to pharmacy. Ashley Bedoya MA documented in this encounterSamaritan Hospital08-29-2024 Telephone encounter Note * Telephone Encounter - Ashley Bedoya MA - 11/02/2023 8:22 AM EDT Patient sent a MyChart message requesting the following refill. Requested Prescriptions Pending Prescriptions Disp Refills naproxen (NAPROSYN) 500 mg tablet 180 tablet 0 Sig: Take 1 tablet by mouth two times a day with meals. Patient last appointment: 09/29/2023 Next Appointment: 02/05/2024 Patient Phone numbers: [phone] (home) Request is for script(s) to be escript to pharmacy. Ashely Bedoya MA [facility]08-29-2024 Miscellaneous Notes* Telephone Encounter - Ashley Bedoya MA - 11/02/2023 8:22 AM EDT Patient sent a MyChart message requesting the following refill. Requested Prescriptions Pending Prescriptions Disp Refills naproxen (NAPROSYN) 500 mg tablet 180 tablet 0 Sig: Take 1 tablet by mouth two times a day with meals. Patient last appointment: 09/29/2023 Next Appointment: 02/05/2024 Patient Phone numbers: [phone] (home) Request is for script(s) to be escript to pharmacy. Ashley Bedoya MA documented in this encounterSamaritan Hospital08-12-2024 Telephone encounter Note * Telephone Encounter - Ashley Bedoya MA - 10/16/2023 7:56 AM EDT Pharmacy sent a [employer] message requesting the following refill. Requested Prescriptions Pending Prescriptions Disp Refills hydrOXYchloroQUINE (PLAQUENIL) 200 mg tablet [Pharmacy Med Name: HYDROXYCHLOROQUINE 200 MG TAB] 90 tablet 0 Sig: take 1 tablet by mouth once daily Patient last appointment: 09/29/2023 Next Appointment: 02/05/2024 Patient Phone numbers: [phone] (home) Request is for script(s) to be escript to pharmacy. Ashley Bedoya MA [facility]08-12-2024 Miscellaneous Notes* Telephone Encounter - Ashley Bedoya MA - 10/16/2023 7:56 AM EDT Pharmacy sent a [employer] message requesting the following refill. Requested Prescriptions Pending Prescriptions Disp Refills hydrOXYchloroQUINE (PLAQUENIL) 200 mg tablet [Pharmacy Med Name: HYDROXYCHLOROQUINE 200 MG TAB] 90 tablet 0 Sig: take 1 tablet by mouth once daily Patient last appointment: 09/29/2023 Next Appointment: 02/05/2024 Patient Phone numbers: [phone] (home) Request is for script(s) to be escript to pharmacy. Ashley Bedoya MA documented in this encounterSamaritan Hospital08-09-2024 Telephone encounter Note * Telephone Encounter - Ashley Bedoya MA - 10/13/2023 1:04 PM EDT Pharmacy sent a [employer] message requesting the following refill. Requested Prescriptions Pending Prescriptions Disp Refills folic acid 1 mg tablet 90 tablet 1 Sig: Take 1 tablet by mouth once daily. Patient last appointment: 09/29/2023 Next Appointment: 02/05/2024 Patient Phone numbers: [phone] (home) Request is for script(s) to be escript to pharmacy. Ashley Bedoya MA [facility]08-09-2024 Miscellaneous Notes* Telephone Encounter - Ashley Bedoya MA - 10/13/2023 1:04 PM EDT Pharmacy sent a [employer] message requesting the following refill. Requested Prescriptions Pending Prescriptions Disp Refills folic acid 1 mg tablet 90 tablet 1 Sig: Take 1 tablet by mouth once daily. Patient last appointment: 09/29/2023 Next Appointment: 02/05/2024 Patient Phone numbers: [phone] (home) Request is for script(s) to be escript to pharmacy. Ahsley Bedoya MA documented in this encounterSamaritan Hospital07-26-2024 NoteHNO ID: [id number] Author: ROBERT FARIAS MD Service: ? Author Type: Physician Type: Progress Notes Filed: 01/20/2024 14:56 Note Text: This note was created using NoteWriter. Subjective Jaylin Carroll is a 63 year old female. I am good Back tweaked 2 week ago Was in [facility] Not sure what happened Then 12 hour [...] Plan First visit 06/19/2020 ( moved from [place] ) RA and wants treatment for that [...] 2nd 3 rd MCP ) Dr. [place] [facility] [place] [facility] : 01/2020 last [...] ) insurance covering 02/24 fully covered next 1210/25 10.23 04/29 09/26 remission . Optha pending, [...] ) 04/17/2023 Naproxen 500 mg bid prn 2015 started ( using 2-3 times week ) (more content not included)...[facility]07-26-2024 History of Present illness Narrative* Robert Farias MD - 09/29/2023 2:45 PM EDT This note was created using [employer]Writer. Subjective Jaylin Carroll is a 63 year old female. I am good Back tweaked 2 week ago Was in [facility] Not sure what happened Then 12 hour [...] Plan First visit 06/19/2020 ( moved from [place] ) RA and wants treatment for that [...] 2nd 3 rd MCP ) Dr. [place] [facility] [place] [facility] : 01/2020 last [...] 90 min low impact. 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 ( leukemia age 43 ) 06/24 2 son in [facility] 06/19/2020 Brother 2 healthy 06/19/2020 3 sister healthy 06/19/2020 Mother 58 ( CHF cancer spinal from breast ) 06/19/2020 ( did not smoke ) Father brain aneurysm 67 06/19/2020 ( did smoke) 02/23 COVID cough, sneezing, sore throat, no temp etc . documented in this encounterSamaritan Hospital07-10-2024 NoteHNO ID: [id number] Author: CHEYENNE GARCIA PA-C Service: ? Author Type: Physician Rail Switchman Type: Progress Notes Filed: 09/13/2023 09:10 Note Text: Patient needs to keep follow up in September to continue treatment.[facility]07-10-2024 History of Present illness Narrative* Cheyenne Garcia PA-C - 09/13/2023 9:07 AM EDT Patient needs to keep follow up in September to continue treatment. documented in this encounterSamaritan Hospital05-30-2024 Telephone encounter Note * Telephone Encounter - Deysi Fried - 08/03/2023 9:00 AM EDT [facility] [id number] [facility]/Faxed [phone] Deysi Mantilla, Mud Analysis Operator [facility]05-30-2024 Miscellaneous Notes* Telephone Encounter - Deysi Fried - 08/03/2023 9:00 AM EDT [facility] Approved [id number] [facility]/Faxed [phone] Deysi Mantilla Mud Analysis Operator documented in this encounterSamaritan Hospital05-29-2024 Telephone encounter Note * Telephone Encounter - Ashley Bedoya MA - 08/02/2023 9:31 AM EDT Pharmacy sent a MyChart message requesting the following refill. Requested Prescriptions Pending Prescriptions Disp Refills methotrexate 2.5 mg tablet 96 tablet 0 Sig: Take 8 tablets by mouth one time a week. Patient last appointment: 04/17/2023 Next Appointment: 09/15/2023 Patient Phone numbers: [phone] (home) Request is for script(s) to be escript to pharmacy. Ashley Bedoya MA [facility]05-29-2024 Miscellaneous Notes* Telephone Encounter - Ashley Bedoya MA - 08/02/2023 9:31 AM EDT Pharmacy sent a [employer] message requesting the following refill. Requested Prescriptions Pending Prescriptions Disp Refills methotrexate 2.5 mg tablet 96 tablet 0 Sig: Take 8 tablets by mouth one time a week. Patient last appointment: 04/17/2023 Next Appointment: 09/15/2023 Patient Phone numbers: [phone] (home) Request is for script(s) to be escript to pharmacy. Ashley Bedoya MA documented in this encounterSamaritan Hospital05-24-2024 History of Present illness Narrative* Robert Farias MD - 07/28/2023 10:55 AM EDT Noted Robert Farias MD documented in this encounterSamaritan Hospital05-22-2024 Telephone encounter Note * Telephone Encounter - Ashley Bedoya MA - 07/26/2023 9:09 AM EDT Patient sent a [employer] message requesting the following refill. Requested Prescriptions [...] 04/16/2021 Next Appointment: 09/15/2023 Patient Phone numbers: [phone] (home) Request is for script(s) to be escript to pharmacy. Ashley Bedoya MA Patient wants 90 day supply as she will be on vacation. [facility] Miscellaneous Notes* Telephone Encounter - Ashley Bedoya MA - 07/26/2023 9:09 AM EDT Patient sent a [employer] message requesting the following refill. Requested Prescriptions [...] 04/16/2021 Next Appointment: 09/15/2023 Patient Phone numbers: [phone] (home) Request is for script(s) to be escript to pharmacy. Ashley Bedoya MA Patient wants 90 day supply as she will be on vacation. documented in this encounterSamaritan Hospital04-12-2024 Miscellaneous Notes* Addendum Note - Zena Nassar - 06/16/2023 2:16 PM EDTAddended by: ZENA NASSAR on: 06/16/2023 02:16 PM Modules accepted: Orders documented in this encounterSamaritan Hospital04-02-2024 Miscellaneous Notes* Telephone Encounter - Brynn Fofana [...] * GI Upset Stomach pain severe (home) [phone] (cell) Last Office Visit Date: 04/16/2021 Last [facility] Health Visit: 04/17/2023 Future Appointment: 09/15/2023 The patients preferred pharmacy has been captured for this encounter? yes Request is for script(s) to be escript to pharmacy. Brynn Fofana LPN documented in this encounterSamaritan Hospital03-04-2024 Miscellaneous Notes* Telephone Encounter - Pauly Weeks - 05/08/2023 3:31 PM EST Patient is scheduled. Pauly Weeks * Telephone Encounter - Ashley Bedoya MA - 05/08/2023 7:46 AM EST Pharmacy sent a [employer] message requesting the following refill. Requested Prescriptions Pending Prescriptions Disp Refills hydrOXYchloroQUINE (PLAQUENIL) 200 mg tablet [Pharmacy Med Name: HYDROXYCHLOROQUINE 200 MG TAB] 30 tablet 2 Sig: take 1 tablet by mouth once daily Patient last appointment: 04/17/2023 Next Appointment: Visit date not found Patient Phone numbers: [phone] (home) Request is for script(s) to be escript to pharmacy. Ashley Bedoya MA Needs 3 mth follow up documented in this encounterSamaritan Hospital02-20-2024 Miscellaneous Notes* Telephone Encounter - Ashley Bedoya MA - 04/25/2023 10:00 AM EST Patient sent a [employer] message requesting the following refill. Requested Prescriptions Pending Prescriptions Disp Refills naproxen (NAPROSYN) 500 mg tablet 180 tablet 0 Sig: Take 1 tablet by mouth two times a day with meals. Patient last appointment: 04/16/2021 Next Appointment: Visit date not found Patient Phone numbers: [phone] (home) Request is for script(s) to be escript to pharmacy. Ashley Bedoya MA documented in this encounterSamaritan Hospital02-15-2024 Miscellaneous Notes* Telephone Encounter - Ashley Bedoya MA - 04/20/2023 10:34 AM EST Spoke to patient she will sign papers that she needs at the infusion center. Nothing for us to do. * Telephone Encounter - Ashley Bedoya MA - 04/20/2023 10:34 AM EST ----- Message from Deysi Tate sent at 04/18/2023 1:02 PM EST ----- Regarding: FW: Anna/ Ronaldo Farias MD]/ Message ----- Message ----- From: Dulce Rehman Sent: 04/18/2023 9:44 AM EST To: Levi Castillo Triage Pool Subject: Anna/ [Maria Esther Farias MD]/ Message Subject Line Format: Anna/ Ronaldo Farias MD]/ Message Patient: Jaylin Carroll Date of : 1960 Primary Care Provider: Edis Trejo DO Patient has been identified by name and Date of (Y/N): y Patient: Jaylin Carroll Date of : 1960 Provider for this encounter: Edis Trejo DO Reason for the call/escalation: Message Was Patient Referred to [facility]/Seek Emergency Treatment (Y/N): n Did Patient Agree (Y/N): n Was An Attempt Made To Transfer The Patient To The Office (Y/N): n Were You Able To Reach Someone At The Office (Y/N): n If Yes - Patient Was Transferred To (Caregivers Name): n If No - Which [employer] Operator Did You Speak With Regarding This Patient: n Was an appointment scheduled (Y/N): n Reason patient was requesting visit (RFV/signs and symptoms/diagnosis) : Monika jordan [facility] in needing the completed re enrollment packet to be faxed back to [phone] Person calling if other than patient: yes Return call to if other than patient: yes Best contact number: Thank you, Dulce Rehman April 18, 2023 9:42 AM documented in this encounterSamaritan Hospital02-12-2024 History of Present illness Narrative* Robert Farias [...] Plan First visit 06/19/2020 ( moved from [place] ) RA and wants treatment for that [...] 90 min low impact. 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 ( leukemia age 43 ) 06/24 2 son in [facility] 06/19/2020 Brother 2 healthy 06/19/2020 3 sister [...] visit. Either the patient or their legal appliance service representative has been informed of the risks and benefits of -- and alternatives to -- treatment through a remote evaluation andconsents to proceed with the evaluation remotely. documented in this encounterSamaritan Hospital11-29-2023 Miscellaneous Notes* Telephone Encounter - Ann Marie Frank MA - 02/01/2023 2:13 PM EST Patient sent a [employer] message requesting the following refill. Requested Prescriptions [...] 12/26/22 Next Appointment: 04/17/2023 Patient Phone numbers: [phone] (home) Request is for script(s) to be escript to pharmacy. Ann Marie Frank MA documented in this encounterSamaritan Hospital11-09-2023 Miscellaneous Notes* Telephone Encounter - Bianca Kent [...] - 01/12/2023 1:20 PM EST Keke from [employer] called and stated they needed Renflexis order form. She said can call them back if there's any questions, . documented in this encounterSamaritan Hospital11-07-2023 Miscellaneous Notes* Telephone Encounter - Roverto West MA - 01/10/2023 10:38 AM EST Pharmacy faxed requesting the following refill. Requested Prescriptions Pending Prescriptions Disp Refills naproxen (NAPROSYN) 500 mg tablet [Pharmacy Med Name: NAPROXEN 500 MG TABLET] 180 tablet 0 Sig: Take 1 tablet by mouth two times a day with meals. Patient last appointment: 04/16/2021 Next Appointment: 04/17/2023 Patient Phone numbers: [phone] (home) Request is for script(s) to be escript to pharmacy. Roverto West MA documented in this encounterSamaritan Hospital10-23-2023 History of Present illness Narrative* Robert Farias MD - 12/26/2022 3:26 PM EDT This note was created using PowerPracticalriter. Subjective Jaylin Carroll is a 62 year [...] Plan First visit 06/19/2020 ( moved from [place] ) RA and wants treatment for that [...] 90 min low impact. 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 ( leukemia age 43 ) 06/24 2 son in [facility] 06/19/2020 Brother 2 healthy 06/19/2020 3 sister [...] visit. Either the patient or their legal appliance service representative has been informed of the risks and benefits of -- and alternatives to -- treatment through a remote evaluation andconsents to proceed with the evaluation remotely. documented in this encounterSamaritan Hospital10-16-2023 Miscellaneous Notes* Telephone Encounter - Roverto West MA - 12/19/2022 2:05 PM EDT Patient sent a [employer] message requesting the following refill. Requested Prescriptions Pending Prescriptions Disp Refills tiZANidine (ZANAFLEX) 2 mg tablet 60 tablet 2 Sig: Take 1-3 tablets by mouth at bedtime as needed. Patient last appointment: Visit date not found Next Appointment: 12/26/2022 Patient Phone numbers: [phone] (home) Request is for script(s) to be escript to pharmacy. Roverto West MA * Telephone Encounter - Roverto West MA - 12/19/2022 2:04 PM EDTMessage [facility] Refills have been requested for the following medications: tiZANidine (ZANAFLEX) 2 mg tablet [Dr. Bradley Farias] Preferred pharmacy: [id number] [place] [address] - [address] [facility] [phone] Delivery method: Pickup documented in this encounterSamaritan Hospital10-05-2023 Miscellaneous Notes* Telephone Encounter - Roverto West MA - 12/08/2022 9:16 AM EDT Pharmacy faxed requesting the following refill. Requested Prescriptions Pending Prescriptions Disp Refills folic acid 1 mg tablet [Pharmacy Med Name: FOLIC ACID 1 MG TABLET] 90 tablet 1 Sig: Take 1 tablet by mouth once daily. Patient last appointment: 04/16/2021 Next Appointment: 12/26/2022 Patient Phone numbers: [phone] (home) Request is for script(s) to be escript to pharmacy. Roverto West MA documented in this encounterSamaritan Hospital10-04-2023 Miscellaneous Notes* Telephone Encounter - Roverto West MA - 12/07/2022 8:32 AM EDT Pharmacy faxed requesting the following refill. Requested Prescriptions Pending Prescriptions Disp Refills methotrexate 2.5 mg tablet [Pharmacy Med Name: METHOTREXATE 2.5 MG TABLET] 96 tablet 0 Sig: Take 8 tablets by mouth one time a week. Patient last appointment: 06/19/2020 Next Appointment: 12/26/2022 Patient Phone numbers: [phone] (home) Request is for script(s) to be escript to pharmacy. Roverto West MA documented in this encounterSamaritan Hospital09-23-2023 History of Present illness Narrative* Robert Farias MD - 11/26/2022 7:02 PM EDT Noted Robert Farias MD documented in this encounterSamaritan Hospital09-08-2023 Miscellaneous Notes* Telephone Encounter - Roverto West MA - 11/11/2022 9:30 AM EDT Pharmacy faxed requesting the following refill. Requested Prescriptions Pending Prescriptions Disp Refills hydrOXYchloroQUINE (PLAQUENIL) 200 mg tablet [Pharmacy Med Name: HYDROXYCHLOROQUINE 200 MG TAB] 30 tablet 2 Sig: Take 1 tablet by mouth once daily. Patient last appointment: 04/16/2021 Next Appointment: 12/26/2022 Patient Phone numbers: [phone] (home) Request is for script(s) to be escript to pharmacy. Roverto West MA documented in this encounterSamaritan Hospital08-28-2023 Procedure [facility]08-07-2023 Miscellaneous Notes* Telephone Encounter - Roverto West MA - 10/10/2022 11:08 AM EDT Pharmacy faxed requesting the following refill. Requested Prescriptions Pending Prescriptions Disp Refills naproxen (NAPROSYN) 500 mg tablet [Pharmacy Med Name: NAPROXEN 500 MG TABLET] 180 tablet 0 Sig: Take 1 tablet by mouth twice daily with meals. Patient last appointment: 04/16/2021 Next Appointment: 12/26/2022 Patient Phone numbers: [phone] (home) Request is for script(s) to be escript to pharmacy. Roverto West MA documented in this encounterSamaritan Hospital07-12-2023 Miscellaneous Notes* Telephone Encounter - Roverto West MA - 09/14/2022 9:07 AM EDT Pharmacy faxed requesting the following refill. Requested Prescriptions Pending Prescriptions Disp Refills methotrexate 2.5 mg tablet [Pharmacy Med Name: METHOTREXATE 2.5 MG TABLET] 96 tablet 0 Sig: Take 8 tablets by mouth one time a week. Patient last appointment: 06/19/2020 Next Appointment: 12/26/2022 Patient Phone numbers: [phone] (home) Request is for script(s) to be escript to pharmacy. Roverto West MA documented in this encounterSamaritan Hospital07-06-2023 Miscellaneous Notes* Telephone Encounter - Roverto West [...] found Next Appointment: 12/26/2022 Patient Phone numbers: [phone] (home) Request is for script(s) to be escript to pharmacy. Roverto West MA documented in this encounterSamaritan Hospital06-30-2023 History of Present illness Narrative* Robetr Farias MD - 09/02/2022 3:12 PM EDT This note was created using [employer]Practical[employer]. Subjective Jaylin Carroll is a 62 year [...] Plan First visit 06/19/2020 ( moved from [place] ) RA and wants treatment for that [...] 2nd 3 rd MCP ) Dr. Mendes [place] [facility] [place] [facility] : 01/2020 last [...] ) 10/22/21 Naproxen 500 mg bid prn 2015 started ( using 2-3 times week ) 10/25 zanaflex 2 mg hs 06/19/2020 ( only at night ) ( daily )) Brief Personal and family history: Gym 12/25 spending 1 hour to 90 min low impact. 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 ( leukemia age 43 ) 06/24 2 son in [facility] 06/19/2020 Brother 2 healthy 06/19/2020 3 sister [...] visit. Either the patient or their legal appliance service representative has been informed of the risks and benefits of -- and alternatives to -- treatment through a remote evaluation andconsents to proceed with the evaluation remotely. documented in this encounterSamaritan Hospital06-21-2023 History of Present illness Narrative* Robert Farias MD - 08/24/2022 6:30 PM EDT Noted Robert Farias MD documented in this encounterSamaritan Hospital06-07-2023 Miscellaneous Notes* Telephone Encounter - Roverto West MA - 08/10/2022 3:31 PM EDT Pharmacy faxed requesting the following refill. Requested Prescriptions Pending Prescriptions Disp Refills hydrOXYchloroQUINE (PLAQUENIL) 200 mg tablet [Pharmacy Med Name: HYDROXYCHLOROQUINE 200 MG TAB] 30 tablet 2 Sig: Take 1 tablet by mouth once daily. Patient last appointment: 04/16/2021 Next Appointment: 09/02/2022 Patient Phone numbers: [phone] (home) Request is for script(s) to be escript to pharmacy. Roverto West MA documented in this encounterSamaritan Hospital04-27-2023 History of Present illness Narrative* Robert Farias MD - 06/30/2022 8:36 PM EDT Noted Robert Farias MD documented in this encounterSamaritan Hospital04-26-2023 Miscellaneous Notes* Telephone Encounter - Roverto West [...] found Next Appointment: 09/02/2022 Patient Phone numbers: [phone] (home) Request is for script(s) to be escript to pharmacy. Roverto West MA documented in this encounterSamaritan Hospital04-18-2023 Miscellaneous Notes* Telephone Encounter - Roverto West MA - 06/21/2022 1:56 PM EDT Pharmacy faxed requesting the following refill. Requested Prescriptions Pending Prescriptions Disp Refills methotrexate 2.5 mg tablet [Pharmacy Med Name: METHOTREXATE 2.5 MG TABLET] 96 tablet 0 Sig: Take 8 tablets by mouth every Monday. Patient last appointment: 06/19/2020 Next Appointment: 09/02/2022 Patient Phone numbers: [phone] (home) Request is for script(s) to be escript to pharmacy. Roverto West MA documented in this encounterSamaritan Hospital04-07-2023 Miscellaneous Notes* Telephone Encounter - Brynn Fofana [...] * GI Upset Stomach pain severe (home) [phone] (cell) Last Office Visit Date: 04/16/2021 Last [facility] Visit: 05/12/2022 Future Appointment: Visit date not found The patients preferred pharmacy has been captured for this encounter? yes Request is for script(s) to be escript to pharmacy. Brynn Fofana LPN documented in this encounterSamaritan Hospital03-09-2023 Miscellaneous Notes* Telephone Encounter - Roverto West MA - 05/12/2022 11:48 AM EST Pharmacy faxed requesting the following refill. Requested Prescriptions Pending Prescriptions Disp Refills hydrOXYchloroQUINE (PLAQUENIL) 200 mg tablet [Pharmacy Med Name: HYDROXYCHLOROQUINE 200 MG TAB] 30 tablet 2 Sig: Take 1 tablet by mouth once daily. Patient last appointment: 04/16/2021 Next Appointment: 05/12/2022 Patient Phone numbers: [phone] (home) Request is for script(s) to be escript to pharmacy. Roverto West MA documented in this encounterSamaritan Hospital02-27-2023 Miscellaneous Notes* Telephone Encounter - Roverto West [...] found Next Appointment: 05/12/2022 Patient Phone numbers: [phone] (home) Request is for script(s) to be escript to pharmacy. Roverto West MA documented in this encounterSamaritan Hospital02-08-2023 Miscellaneous Notes* Telephone Encounter - Roverto West MA - 04/13/2022 10:19 AM EST Pharmacy faxed requesting the following refill. Requested Prescriptions Pending Prescriptions Disp Refills naproxen (NAPROSYN) 500 mg tablet [Pharmacy Med Name: NAPROXEN 500 MG TABLET] 180 tablet 1 Sig: TAKE 1 TABLET BY MOUTH TWICE A DAY WITH MEALS Patient last appointment: 04/16/2021 Next Appointment: 05/12/2022 Patient Phone numbers: [phone] (home) Request is for script(s) to be escript to pharmacy. Roverto West MA documented in this encounterSamaritan Hospital01-26-2023 History of Present illness Narrative* RT Alan(R) [...] 31, 2022 9:36 AM documented in this [facility]01-25-2023 Miscellaneous Notes* Telephone Encounter - Roverto West MA - 03/30/2022 1:24 PM EST Pharmacy faxed requesting the following refill. Requested Prescriptions Pending Prescriptions Disp Refills methotrexate 2.5 mg tablet [Pharmacy Med Name: METHOTREXATE 2.5 MG TABLET] 96 tablet 0 Sig: TAKE 8 TABLETS BY MOUTH EVERY MONDAY. Patient last appointment: 06/19/2020 Next Appointment: 05/12/2022 Patient Phone numbers: [phone] (home) Request is for script(s) to be escript to pharmacy. Roverto West MA documented in this [facility]12-30-2022 Miscellaneous Notes* Telephone Encounter - Roverto West [...] found Next Appointment: 05/12/2022 Patient Phone numbers: [phone] (home) Request is for script(s) to be escript to pharmacy. Roverto West MA documented in this [facility]12-12-[facility]22 Miscellaneous Notes* Telephone Encounter - Brynn Fofana LPN - 02/14/2022 3:12 PM EST Pharmacy faxed requesting the following refill. Requested Prescriptions Pending Prescriptions Disp Refills tiZANidine (ZANAFLEX) 2 mg tablet [Pharmacy Med Name: TIZANIDINE HCL 2 MG TABLET] 60 tablet 0 Sig: TAKE 1 TO 3 TABLETS BY MOUTH AT BEDTIME NEEDED Patient last appointment: 02/04/2022 virtual Next Appointment: 05/12/2022 Patient Phone numbers: [phone] (home) Request is for script(s) to be escript to pharmacy. Brynn Fofana LPN documented in this encounterSamaritan Hospital12-05-2022 Miscellaneous Notes* Telephone Encounter - Brynn Fofana LPN - 02/07/2022 3:04 PM EST Pharmacy faxed requesting the following refill. Requested Prescriptions Pending Prescriptions Disp Refills hydrOXYchloroQUINE (PLAQUENIL) 200 mg tablet 30 tablet 2 Sig: Take 1 tablet by mouth once daily. Patient last appointment: 02/04/2022 virtual Next Appointment: 05/12/2022 Patient Phone numbers: [phone] (home) Request is for script(s) to be escript to pharmacy. Brynn Fofana LPN documented in this encounterSamaritan Hospital12-02-2022 Instructions* Patient Instructions* Robert Farias MD - [...] your usual activities immediately. documented in this encounterSamaritan Hospital12-01-2022 History of Present illness Narrative* Robert Farias MD - 02/03/2022 8:01 PM EST This note was created using [employer]. Subjective Jaylin Carroll is a 61 year [...] Plan First visit 06/19/2020 ( moved from [place] ) RA and wants treatment for that [...] 90 min low impact. 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 ( leukemia age 43 ) 06/24 2 son in [facility] 06/19/2020 Brother 2 healthy 06/19/2020 3 sister healthy 06/19/2020 Mother 58 ( CHF cancer spinal from breast ) 06/19/2020 ( did not smoke ) Father brain aneurysm 67 06/19/2020 ( did smoke) COVID Moderna 01/2021 (3) done 02/23 COVID cough, sneezing, sore throat, no temp etc . documented in this encounterSamaritan Hospital11-17-2022 Miscellaneous Notes* Telephone Encounter - Brynn Fofana LPN - 01/20/2022 3:41 PM EST Senior Regulatory Affairs Specialist from [employer] calls today and leaves reference # of [id number] in regards to renflexis. Asked for call back at [phone]. Brynn Fofana LPN documented in this encounterSamaritan Hospital11-17-2022 Miscellaneous Notes* Telephone Encounter - Roverto West [...] found Next Appointment: 02/04/2022 Patient Phone numbers: [phone] (home) Request is for script(s) to be escript to pharmacy. Roverto West MA documented in this [facility]11-09-2022 Miscellaneous Notes* Telephone Encounter - Roverto West MA - 01/12/2022 2:49 PM EST Pharmacy faxed requesting the following refill. Requested Prescriptions Pending Prescriptions Disp Refills methotrexate 2.5 mg tablet 96 tablet 0 Sig: Take 8 tablets by mouth every Monday. Patient last appointment: 06/19/2020 Next Appointment: 02/04/2022 Patient Phone numbers: [phone] (home) Request is for script(s) to be escript to pharmacy. Roverto West MA documented in this [facility]10-31-20[facility] History of Present illness Narrative* Robert Farias MD - 01/03/2022 2:40 PM EDT Noted Robert Farias MD documented in this [facility]10-21-2022 Miscellaneous Notes* Telephone Encounter - Roverto West [...] found Next Appointment: 02/04/2022 Patient Phone numbers: [phone] (home) Request is for script(s) to be escript to pharmacy. Roverto West MA documented in this encounterSamaritan Hospital10-12-2022 Miscellaneous Notes* Telephone Encounter - Roverto West MA - 12/15/2021 12:08 PM EDT Pharmacy faxed requesting the following refill. Requested Prescriptions Pending Prescriptions Disp Refills folic acid 1 mg tablet [Pharmacy Med Name: FOLIC ACID 1 MG TABLET] 90 tablet 1 Sig: TAKE 1 TABLET BY MOUTH EVERY DAY Patient last appointment: 04/16/2021 Next Appointment: 02/04/2022 Patient Phone numbers: [phone] (home) Request is for script(s) to be escript to pharmacy. Roverto West MA documented in this encounterSamaritan Hospital09-09-2022 History of Present illness Narrative* Robert Farias MD - 11/12/2021 7:14 AM EDT noted documented in this encounterSamaritan Hospital08-19-2022 History of Present illness Narrative* Robert Farias MD - 10/22/2021 2:30 PM EDT This note was created using [employer]Writer. Subjective Jaylin Carroll is a 61 year [...] Plan First visit 06/19/2020 ( moved from [place] ) RA and wants treatment for that [...] 2nd 3 rd MCP ) Dr. 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 ( leukemia age 43 ) 2 son in [facility] 06/19/2020 Brother 2 healthy 06/19/2020 3 sister healthy 06/19/2020 Mother 58 ( CHF cancer spinal from breast ) 06/19/2020 ( did not smoke ) Father brain aneurysm 67 06/19/2020 ( did smoke) COVID Moderna 01/2021 (3) done 02/23 COVID cough, sneezing, sore throat, no temp etc . documented in this encounterSamaritan Hospital08-12-2022 Miscellaneous Notes* Telephone Encounter - Tia Carcamo MA - 10/15/2021 8:31 AM EDT Pharmacy faxed requesting the following refill. Requested Prescriptions Pending Prescriptions Disp Refills naproxen (NAPROSYN) 500 mg tablet [Pharmacy Med Name: NAPROXEN 500 MG TABLET] 180 tablet 1 Sig: TAKE 1 TABLET BY MOUTH TWICE A DAY WITH MEALS Patient last appointment: 04/16/2021 Next Appointment: 10/22/2021 Patient Phone numbers: [phone] (home) Request is for script(s) to be escript to pharmacy. Tia Carcamo MA documented in this encounterSamaritan Hospital07-27-2022 Miscellaneous Notes* Telephone Encounter - Brynn Fofana LPN - 09/29/2021 9:47 AM EDT Med had to be called into pts pharmacy- That was done for one 30 g tube to [facility] in [place]. Pt has been notified that cream is to be applied one hour prior to infusion around port site and cover with an occlusive drsg for skin anesthesia and voiced understanding. Brynn Fofana LPN * Telephone Encounter - Brynn Fofana LPN - 09/29/2021 9:06 AM EDT Med needs called in to pharm Brynn Fofana LPN documented in this encounterSamaritan Hospital07-26-2022 Miscellaneous Notes* Addendum Note - Brynn Fofana [...] suggested by infusion staff. Sent message to [facility] infusion staff to seetheir recommendation Brynn Fofana LPN documented in this encounterSamaritan Hospital07-08-2022 Miscellaneous Notes* Telephone Encounter - Brynn Fofana LPN - 09/10/2021 12:50 PM EDT Pharmacy faxed requesting the following refill. Pending Prescriptions Disp Refills TIZANIDINE 2 MG TABLET Sig: TAKE 1-3 TABLETS AT BEDTIME NEEDED BETTY: No Patient last appointment: 07/16/2021 Next Appointment: 10/22/2021 Patient Phone numbers: [phone] (home) Request is for script(s) to be escript to pharmacy. Brynn Fofana LPN documented in this encounterSamaritan Hospital06-13-2022 Miscellaneous Notes* Telephone Encounter - Tia Carcamo MA - 08/16/2021 9:40 AM EDT Pharmacy faxed requesting the following refill. Pending Prescriptions Disp Refills FOLIC ACID 1 MG TABLET 30 tablet 5 Sig: TAKE 1 TABLET BY MOUTH EVERY DAY BETTY: No Patient last appointment: 04/16/2021 Next Appointment: 10/22/2021 Patient Phone numbers: [phone] (home) Request is for script(s) to be escript to pharmacy. Tia Carcamo MA documented in this encounterSamaritan Hospital06-08-2022 Miscellaneous Notes* Telephone Encounter - Isabela Bal [employer] - 08/11/2021 2:01 PM EDT Renflexis PENDING with [facility] fax with office note pt scheduled Isabela [employer] documented in this encounterSamaritan Hospital06-06-2022 Miscellaneous Notes* Telephone Encounter - Tia Carcamo MA - 08/09/2021 9:11 AM EDT Pharmacy faxed requesting the following refill. Pending Prescriptions Disp Refills HYDROXYCHLOROQUINE 200 MG TABLET 30 tablet 2 Sig: TAKE 1 TABLET BY MOUTH EVERY DAY BETTY: Yes Patient last appointment: 04/16/2021 Next Appointment: 10/22/2021 Patient Phone numbers: [phone] (home) Request is for script(s) to be escript to pharmacy. Tia Carcamo MA documented in this [facility]05-26-2022 Miscellaneous Notes* Telephone Encounter - Brynn Fofana [...] remicade Robert Farias MD documented in this encounterSamaritan Hospital05-19-2022 Miscellaneous Notes* Telephone Encounter - Isabelajaron Bal [employer] - 07/22/2021 10:38 AM EDT Saudira Pen APPROVED [id number] 07.04.2021 - 07.21.2022 with caresource/cover my meds Isabela Bal [place] [facility] * Telephone Encounter - Isabelajaron Bal [employer] - 07/22/2021 9:33 AM EDT Humira Pen PENDING with [employer]/cover my meds Isabela Bal [employer] documented in this encounterSamaritan Hospital05-16-2022 Miscellaneous Notes* Addendum Note - Robert Farias [...] for IR Peripheral Inserted Tunnel Port.Procedure # [id number]. Once this order is placed they will take care of scheduling pt. I gave them all of the pts information over the phone today. Brynn Fofana LPN * Telephone Encounter - Robert Farias MD - 07/16/2021 4:14 PM EDT Brynn She needs a port for infusion for remicade Can you find out which one Thanks Robert Farias MD documented in this encounterSamaritan Hospital05-13-2022 History of Present illness Narrative* Robert Farias MD - 07/16/2021 10:50 AM EDT This note was created using [employer]. Subjective Jaylin Carroll is a 60 year [...] Plan First visit 06/19/2020 ( moved from [place] ) RA and wants treatment for that [...] [address] ) Dr. 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 ( leukemia age 43 ) 2 son in [facility] 06/19/2020 Brother 2 healthy 06/19/2020 3 sister healthy 06/19/2020 Mother 58 ( CHF cancer spinal from breast ) 06/19/2020 ( did not smoke ) Father brain aneurysm 67 06/19/2020 ( did smoke) COVID Moderna 01/2021 (3) done 02/23 COVID cough, sneezing, sore throat, no temp etc . [facility] encounter[facility] Miscellaneous Notes* Telephone Encounter - Tia Carcamo MA - 08/11/2020 4:01 PM EDT Pt is aware and understand. * Telephone Encounter - Robert Farias MD - 08/10/2020 6:01 PM EDT Please inform patient to get labs done Robert Farias MD documented in this encounterSam[facility] Hospital06-08-2021 Miscellaneous Notes* Telephone Encounter - Kelsea Sosa - 08/11/2020 1:52 PM EDT I spoke with the patient, she was calm and pleasant, said she will get her TB test done LUISA. Askedthat we communicate with her via phone going forward as MyChart is not preferred. Would like a [facility] infusion center close to her home (not sure if the [facility] has infusion). * Telephone Encounter [...] informed her that I would let my gas pumping station supervisor aware of the situation. Deysi TATE documented in this encounterSamaritan Hospital06-08-2021 Miscellaneous Notes* Telephone Encounter - Deysi Fried - 08/11/2020 10:02 AM EDT Patient states she will get the labs done on Tuesday 08/15. Deysi TATE documented in this encounterSam[facility]06-01-2021 Miscellaneous Notes* Telephone Encounter - Isabela Munoz - 08/04/2020 3:54 PM EDT Renflexis fax pending with nathanael Vann documented in this encounterSamaritan Hospital04-16-2021 Miscellaneous Notes* Telephone Encounter - Tatyana Shah - 06/19/2020 3:17 PM EDT At checkout per Dr Farias: Please get remicade (order in [facility] prior authorized) Patient had been on it in [place], last dose beginning of February. She has Nathanael romero, gave her brochure, she will check on copay assistance for infusions, fyi. Tatyana Diaz Private Pilot documented in this encounterSamaritan Hospital04-16-2021 History of Present illness Narrative* Robert Farias - 06/19/2020 2:24 PM EDT This note was created using [employer]. 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 Never smoked of each No ETOH . ( leukemia age 43 ) 2 son in [facility] 06/19/2020 Brother 2 healthy 06/19/2020 3 sister healthy 06/19/2020 Mother 58 ( CHF cancer spinal from breast ) 06/19/2020 ( did not smoke ) Father brain aneurysm 67 06/19/2020 ( did smoke) documented in this encounterSamaritan HospitalConsult note Author Kat Traylor [facility] Note Date/Time May 27, 2024 3:[address] [place] [address] Medical Records Department [address] [place] [address] Counseling Note - Pharmacy 05/27/24 1511 MR#: [id number] Acct: [id number] Name: JAYLIN CARROLL Rep #:[id number] : 1960 63 From: Kat Traylor PCP: Dr. Paul Greco MD Status:ADM IN O Y Location: [place] [address] [place] Med Reconciliation Pharmacy Service has performed discharge [...] mg PO QDAY #60 tabs 04/30/24 05/27/24 7421 <Electronically signed by Kat Traylor> Date _ Kat Perez Signature (if applicable): Date CC: ~ Signed [facility] Work Phone: Discharge summary Author Isael Tereletsky [facility] Note Date/Time May 27, 2024 3:0 6pm [facility] Medical Records Department [address] [place] [address] Instructions for Home/Discharge Instructions 05/27/24 1503 MR#: [id number] Acct: [id number] Name: JAYLIN CARROLL Rep #:[id number] : 1960 63 From: Isael Baeza DO [...] MD; Dr. Paul Greco MD ~ Signed [facility] Work Phone: Discharge summary Author [facility] Note Date/Time May 27, 2024 3:[address] [place] [address] System Medical Records Department [address] [place] [address] Discharge Summary 05/27/24 1506 MR#: [id number] Acct: [id number] Name: JAYLIN CARROLL Rep #:[id number] : 1960 63 From: Isael Baeza DO PCP: Dr. Paul Greco MD Status:ADM IN Location: [place] [address] Providers Date of Admission: 05/27/24 Date of [...] Neut % (Auto) 50.1, Lymph % (Auto) 35.2,[place] % (Auto) 10.7 H, Eos % (Auto) [...] Self Care Charges/Coding Visit Charges Inpatient E&M: 21142 Disch Hosp 05/27/24 1512 <Electronically signed by Isael Baeza DO> Cosigner Signature (if applicable): CC: Dr. Paul Greco MD; Dr. Isael Baeza DO~ Signed [facility] Work Phone: Evaluation note* Diagnosis Rheumatoid arthritis involving both hands with positive rheumatoid factor (HCC) [facility] encounter [facility]* Diagnosis Rheumatoid arthritis involving both hands with positive rheumatoid factor (HCC)- Primary Chronic bilateral low back pain without sciatica [facility]* Diagnosis Rheumatoid arthritis involving both hands with positive rheumatoid factor (HCC)- Primary [facility]* Diagnosis Rheumatoid arthritis involving both hands with positive rheumatoid factor (HCC)- Primary [facility]* Diagnosis Rheumatoid arthritis involving both hands with positive rheumatoid factor (HCC)- Primary [facility] Rheumatoid arthritis involving both hands with positive rheumatoid factor (HCC)- Primary [facility]* Diagnosis Rheumatoid arthritis involving both hands with positive rheumatoid factor (HCC)- Primary Rheumatoid arthritis involving both hands with positive rheumatoid factor (HCC) documented [facility]* Diagnosis Anesthesia of skin- Primary Disturbance of skin sensation documented [facility] encounter [facility]* Diagnosis Anesthesia of skin- Primary Disturbance of skin sensation [facility]* Diagnosis Rheumatoid arthritis involving both hands with positive rheumatoid factor (HCC)- Primary [facility]* Diagnosis Rheumatoid arthritis involving both hands with positive rheumatoid factor (HCC)- Primary [facility] this encounter [facility]* Diagnosis Rheumatoid arthritis involving both hands with positive rheumatoid factor (HCC)- Primary documented in [facility]* Diagnosis Rheumatoid arthritis involving both hands with positive rheumatoid factor (HCC)- Primary documented [facility]* Diagnosis Rheumatoid arthritis involving both hands with positive rheumatoid factor (HCC)- Primary Asymptomatic postmenopausal status documented in this [facility]* Diagnosis Rheumatoid arthritis involving both hands with positive rheumatoid factor (HCC)- Primary [facility]* Diagnosis Asymptomatic postmenopausal status documented [facility] noteNo assessment information availableWTriHealth Work Phone: Evaluation note* Diagnosis Rheumatoid arthritis involving both hands with positive rheumatoid factor (HCC)- Primary documented [facility] encounter [facility]* Diagnosis Rheumatoid arthritis involving both hands with positive rheumatoid factor (HCC)- Primary documented in this encounter [facility]* Diagnosis Rheumatoid arthritis involving both hands with positive rheumatoid factor (HCC)- Primary [facility]* Diagnosis Rheumatoid arthritis involving both hands with positive rheumatoid factor (HCC)- Primary documented in this encounter [facility]* Diagnosis Rheumatoid arthritis involving both hands with positive rheumatoid factor (HCC)- Primary documented in this encounter [facility]* Diagnosis Anemia, chronic disease- Primary Anemia of other chronic disease documented in this encounter [facility]* Diagnosis Rheumatoid arthritis involving both hands with positive rheumatoid factor (HCC)- Primary Anemia, chronic disease Anemia of other chronic disease Recurrent infections Unspecified infectious and parasitic diseases documented in this encounter [facility]* Diagnosis Rheumatoid arthritis involving both hands with positive rheumatoid factor (HCC)- Primary documented in this encounter [facility]* Diagnosis Rheumatoid arthritis involving both hands with positive rheumatoid factor (HCC)- Primary [facility]* Diagnosis Rheumatoid arthritis involving both hands with positive rheumatoid factor (HCC)- Primary [facility] encounter [facility]* Diagnosis Rheumatoid arthritis involving both hands with positive rheumatoid factor (HCC)- Primary Asymptomatic postmenopausal status High risk medication use Encounter for long-term (current) use of other medications documented [facility] encounter [facility]* Diagnosis Rheumatoid arthritis involving both hands with positive rheumatoid factor (HCC)- Primary [facility]* Diagnosis Rheumatoid arthritis involving both hands with positive rheumatoid factor (HCC)- Primary [facility] encounter [facility] for referral (narrative)No reason for referral information availableWTriHealth Work Phone: Reason for visit Narrative* Outpatient Procedure (Routine) - Pending Review Specialty Diagnoses / Procedures Referred By Edgarac t Referred To Contact [facility] IMAGING Diagnoses Asymptomatic menopausal state Procedures DXA BONE DENSITY AXIAL 1+ SITES DXA-AXIAL SKELETON [[id number]] Robert Farias MD [address] [address] Bd Imaging Referral ID Status Reason Start Date Expiration Date Visits Requested Visits Authorized [id number] Pending Review OON/Self Pay Override 02/07/2022 05/08/2022 1 1 [facility] Medications Administered Section Inactive Administered Medications - [...] over 2 Hours, ONCE, 1 dose, On Aruna 03/31/22 at 1100, TOTAL VOLUME = 250 mL. [...] 1100, TOTAL VOLUME = 250 mL. 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 No February 09, 2024 6:09pm Living Will No April 12 2:46pm Do you have a Healthcare Power of Media Aid? No April 12, 2024 2:46pm Living Will No March 10 9:33pm Do you have a Healthcare Power of Media Aid? No March 10, 2024 9:33pm Living Will No May 27, 2024 2:54am Do you have a Healthcare Power of Media Aid? No May 27, 2024 2:54am Advance Directive Response Recorded Date/ Time Do you have a Healthcare Power of Media Aid? No July 25, 2024 7:08pm Living Will No April 12 2:46pm Do you have a Healthcare Power of Media Aid? No April 12, 2024 2:46pm Living Will No May 27, 2024 2:54am Do you have a Healthcare Power of Media Aid? No May 27, 2024 2:54am Do you have a Healthcare Power of Media Aid? No July 03, 2024 6:16pm Advance Directive Response Recorded Date/ Time Do you have a Healthcare Power of Media Aid? No July 25, 2024 7:08pm Living Will No May 27, 2024 2:54am Do you have a Healthcare Power of Media Aid? No May 27, 2024 2:54am Do you have a Healthcare Power of Media Aid? No July 03, 2024 6:16pm Chief Complaint and Reason for Visit Chief Complaint EORDER Chief Complaint ASTHMA Asthma Chief Complaint ASTHMA Asthma EORDER Chief Complaint Admit Date VA-NonSTEMI<12months January 24, 2024 8:05am INT LABS January 31, 2024 7:57am VA-NonSTEMI<12months January 31, 2024 9:15am Hospital FU-ANEMIA February 06, 2024 9 :25am chest pain February 09, 2024 3 :12pm VA-NonSTEMI<12months February 21, 2024 9:15am S/P [facility] 11/8 NONSTEMI/OK TO LEAVE PER MM M February 26, 2024 9:09am E ORDER February 26, 2024 10:06am VA-NonSTEMI<12months March 08, 2024 6 :14am CHEST PAIN [...] Date INT LABS January 31, 2024 7:57am VA-NonSTEMI<12months January 31, 2024 9:15am Hospital FU-ANEMIA February 06, 2024 9 :25am chest pain February 09, 2024 3 :12pm VA-NonSTEMI<12months February 21, 2024 9:15am S/P [facility] 11/8 NONSTEMI/OK TO LEAVE PER MM M February 26, 2024 9:09am E ORDER February 26, 2024 10:06am VA-NonSTEMI<12months March 08, 2024 6 :14am CHEST PAIN [...] 2am Hypertension July 30, 2024 8:18a m Chief Complaint Admit Date Test Result April [...] M FU July 30, 2024 8:18a m HTN August 13, 2024 9:02 am Reason for Visit Admit Date Anemia April 30, 2024 7:58am Chest pain [...] or prosecute any alcohol or drug abuse patient.[facility] HospitalIn the event this information is protected by the Federal Confidentiality of Alcohol and Drug Abuse Patient Records regulations: The Federal rules restrict any use of the information to criminally investigate or prosecute any alcohol or drug abuse patient.[facility] HospitalIn the event this information is protected by the Federal Confidentiality of Alcohol and Drug Abuse Patient Records regulations: The Federal rules restrict any use of the information to criminally investigate or prosecute any alcohol or drug abuse patient.[facility] HospitalIn the event this information is protected by the Federal Confidentiality of Alcohol and Drug Abuse Patient Records regulations: The Federal rules restrict any use of the information to criminally investigate or prosecute any alcohol or drug abuse patient.[facility] HospitalIn the event this information is protected by the Federal Confidentiality of Alcohol and Drug Abuse Patient Records regulations: The Federal rules restrict any use of the information to criminally investigate or prosecute any alcohol or drug abuse patient.[facility] HospitalIn the event this information is protected by the Federal Confidentiality of Alcohol and Drug Abuse Patient Records regulations: The Federal rules restrict any use of the information to criminally investigate or prosecute any alcohol or drug abuse patient.[facility] HospitalIn the event this information is protected by the Federal Confidentiality of Alcohol and Drug Abuse Patient Records regulations: The Federal rules restrict any use of the information to criminally investigate or prosecute any alcohol or drug abuse patient.[facility] HospitalIn the event this information is protected by the Federal Confidentiality of Alcohol and Drug Abuse Patient Records regulations: The Federal rules restrict any use of the information to criminally investigate or prosecute any alcohol or drug abuse patient.[facility] HospitalIn the event this information is protected by the Federal Confidentiality of Alcohol and Drug Abuse Patient Records regulations: The Federal rules restrict any use of the information to criminally investigate or prosecute any alcohol or drug abuse patient.[facility] HospitalIn the event this information is protected by the Federal Confidentiality of Alcohol and Drug Abuse Patient Records regulations: The Federal rules restrict any use of the information to criminally investigate or prosecute any alcohol or drug abuse patient.[facility] HospitalIn the event this information is protected by the Federal Confidentiality of Alcohol and Drug Abuse Patient Records regulations: The Federal rules restrict any use of the information to criminally investigate or prosecute any alcohol or drug abuse patient.[facility] HospitalIn the event this information is protected by the Federal Confidentiality of Alcohol and Drug Abuse Patient Records regulations: The Federal rules restrict any use of the information to criminally investigate or prosecute any alcohol or drug abuse patient.[facility] HospitalIn the event this information is protected by the Federal Confidentiality of Alcohol and Drug Abuse Patient Records regulations: The Federal rules restrict any use of the information to criminally investigate or prosecute any alcohol or drug abuse patient.[facility] HospitalIn the event this information is protected by the Federal Confidentiality of Alcohol and Drug Abuse Patient Records regulations: The Federal rules restrict any use of the information to criminally investigate or prosecute any alcohol or drug abuse patient.[facility] HospitalIn the event this information is protected by the Federal Confidentiality of Alcohol and Drug Abuse Patient Records regulations: The Federal rules restrict any use of the information to criminally investigate or prosecute any alcohol or drug abuse patient.[facility] HospitalIn the event this information is protected by the Federal Confidentiality of Alcohol and Drug Abuse Patient Records regulations: The Federal rules restrict any use of the information to criminally investigate or prosecute any alcohol or drug abuse patient.[facility] HospitalIn the event this information is protected by the Federal Confidentiality of Alcohol and Drug Abuse Patient Records regulations: The Federal rules restrict any use of the information to criminally investigate or prosecute any alcohol or drug abuse patient.[facility] HospitalIn the event this information is protected by the Federal Confidentiality of Alcohol and Drug Abuse Patient Records regulations: The Federal rules restrict any use of the information to criminally investigate or prosecute any alcohol or drug abuse patient.[facility] HospitalIn the event this information is protected by the Federal Confidentiality of Alcohol and Drug Abuse Patient Records regulations: The Federal rules restrict any use of the information to criminally investigate or prosecute any alcohol or drug abuse patient.[facility] HospitalIn the event this information is protected by the Federal Confidentiality of Alcohol and Drug Abuse Patient Records regulations: The Federal rules restrict any use of the information to criminally investigate or prosecute any alcohol or drug abuse patient.[facility] HospitalIn the event this information is protected by the Federal Confidentiality of Alcohol and Drug Abuse Patient Records regulations: The Federal rules restrict any use of the information to criminally investigate or prosecute any alcohol or drug abuse patient.[facility] HospitalIn the event this information is protected by the Federal Confidentiality of Alcohol and Drug Abuse Patient Records regulations: The Federal rules restrict any use of the information to criminally investigate or prosecute any alcohol or drug abuse patient.[facility] HospitalIn the event this information is protected by the Federal Confidentiality of Alcohol and Drug Abuse Patient Records regulations: The Federal rules restrict any use of the information to criminally investigate or prosecute any alcohol or drug abuse patient.[facility] HospitalIn the event this information is protected by the Federal Confidentiality of Alcohol and Drug Abuse Patient Records regulations: The Federal rules restrict any use of the information to criminally investigate or prosecute any alcohol or drug abuse patient.[facility] HospitalIn the event this information is protected by the Federal Confidentiality of Alcohol and Drug Abuse Patient Records regulations: The Federal rules restrict any use of the information to criminally investigate or prosecute any alcohol or drug abuse patient.[facility] HospitalIn the event this information is protected by the Federal Confidentiality of Alcohol and Drug Abuse Patient Records regulations: The Federal rules restrict any use of the information to criminally investigate or prosecute any alcohol or drug abuse patient.[facility] HospitalIn the event this information is protected by the Federal Confidentiality of Alcohol and Drug Abuse Patient Records regulations: The Federal rules restrict any use of the information to criminally investigate or prosecute any alcohol or drug abuse patient.[facility] HospitalIn the event this information is protected by the Federal Confidentiality of Alcohol and Drug Abuse Patient Records regulations: The Federal rules restrict any use of the information to criminally investigate or prosecute any alcohol or drug abuse patient.[facility] HospitalIn the event this information is protected by the Federal Confidentiality of Alcohol and Drug Abuse Patient Records regulations: The Federal rules restrict any use of the information to criminally investigate or prosecute any alcohol or drug abuse patient.[facility] HospitalIn the event this information is protected by the Federal Confidentiality of Alcohol and Drug Abuse Patient Records regulations: The Federal rules restrict any use of the information to criminally investigate or prosecute any alcohol or drug abuse patient.[facility] HospitalIn the event this information is protected by the Federal Confidentiality of Alcohol and Drug Abuse Patient Records regulations: The Federal rules restrict any use of the information to criminally investigate or prosecute any alcohol or drug abuse patient.[facility] HospitalIn the event this information is protected by the Federal Confidentiality of Alcohol and Drug Abuse Patient Records regulations: The Federal rules restrict any use of the information to criminally investigate or prosecute any alcohol or drug abuse patient.[facility] HospitalIn the event this information is protected by the Federal Confidentiality of Alcohol and Drug Abuse Patient Records regulations: The Federal rules restrict any use of the information to criminally investigate or prosecute any alcohol or drug abuse patient.[facility] HospitalIn the event this information is protected by the Federal Confidentiality of Alcohol and Drug Abuse Patient Records regulations: The Federal rules restrict any use of the information to criminally investigate or prosecute any alcohol or drug abuse patient.[facility] HospitalIn the event this information is protected by the Federal Confidentiality of Alcohol and Drug Abuse Patient Records regulations: The Federal rules restrict any use of the information to criminally investigate or prosecute any alcohol or drug abuse patient.[facility] HospitalIn the event this information is protected by the Federal Confidentiality of Alcohol and Drug Abuse Patient Records regulations: The Federal rules restrict any use of the information to criminally investigate or prosecute any alcohol or drug abuse patient.[facility] HospitalIn the event this information is protected by the Federal Confidentiality of Alcohol and Drug Abuse Patient Records regulations: The Federal rules restrict any use of the information to criminally investigate or prosecute any alcohol or drug abuse patient.[facility] HospitalIn the event this information is protected by the Federal Confidentiality of Alcohol and Drug Abuse Patient Records regulations: The Federal rules restrict any use of the information to criminally investigate or prosecute any alcohol or drug abuse patient.[facility] the event this information is protected by the Federal Confidentiality of Alcohol and Drug Abuse Patient Records regulations: The Federal rules restrict any use of the information to criminally investigate or prosecute any alcohol or drug abuse patient.[facility] HospitalIn the event this information is protected by the Federal Confidentiality of Alcohol and Drug Abuse Patient Records regulations: The Federal rules restrict any use of the information to criminally investigate or prosecute any alcohol or drug abuse patient.[facility] HospitalIn the event this information is protected by [...] or prosecute any alcohol or drug abuse patient.[facility] HospitalIn the event this information is protected by the Federal Confidentiality of Alcohol and Drug Abuse Patient Records regulations: The Federal rules restrict any use of the information to criminally investigate or prosecute any alcohol or drug abuse patient.[facility] HospitalIn the event this information is protected by the Federal Confidentiality of Alcohol and Drug Abuse Patient Records regulations: The Federal rules restrict any use of the information to criminally investigate or prosecute any alcohol or drug abuse patient.[facility] HospitalIn the event this information is protected by the Federal Confidentiality of Alcohol and Drug Abuse Patient Records regulations: The Federal rules restrict any use of the information to criminally investigate or prosecute any alcohol or drug abuse patient.[facility] HospitalIn the event this information is protected by the Federal Confidentiality of Alcohol and Drug Abuse Patient Records regulations: The Federal rules restrict any use of the information to criminally investigate or prosecute any alcohol or drug abuse patient.[facility] HospitalIn the event this information is protected by the Federal Confidentiality of Alcohol and Drug Abuse Patient Records regulations: The Federal rules restrict any use of the information to criminally investigate or prosecute any alcohol or drug abuse patient.[facility] HospitalIn the event this information is protected by the Federal Confidentiality of Alcohol and Drug Abuse Patient Records regulations: The Federal rules restrict any use of the information to criminally investigate or prosecute any alcohol or drug abuse patient.[facility] HospitalIn the event this information is protected by the Federal Confidentiality of Alcohol and Drug Abuse Patient Records regulations: The Federal rules restrict any use of the information to criminally investigate or prosecute any alcohol or drug abuse patient.[facility] HospitalIn the event this information is protected by the Federal Confidentiality of Alcohol and Drug Abuse Patient Records regulations: The Federal rules restrict any use of the information to criminally investigate or prosecute any alcohol or drug abuse patient.[facility] HospitalIn the event this information is protected by the Federal Confidentiality of Alcohol and Drug Abuse Patient Records regulations: The Federal rules restrict any use of the information to criminally investigate or prosecute any alcohol or drug abuse patient.[facility] HospitalIn the event this information is protected by the Federal Confidentiality of Alcohol and Drug Abuse Patient Records regulations: The Federal rules restrict any use of the information to criminally investigate or prosecute any alcohol or drug abuse patient.[facility] HospitalIn the event this information is protected by the Federal Confidentiality of Alcohol and Drug Abuse Patient Records regulations: The Federal rules restrict any use of the information to criminally investigate or prosecute any alcohol or drug abuse patient.[facility] HospitalIn the event this information is protected by the Federal Confidentiality of Alcohol and Drug Abuse Patient Records regulations: The Federal rules restrict any use of the information to criminally investigate or prosecute any alcohol or drug abuse patient.[facility] HospitalIn the event this information is protected by the Federal Confidentiality of Alcohol and Drug Abuse Patient Records regulations: The Federal rules restrict any use of the information to criminally investigate or prosecute any alcohol or drug abuse patient.[facility] HospitalIn the event this information is protected by the Federal Confidentiality of Alcohol and Drug Abuse Patient Records regulations: The Federal rules restrict any use of the information to criminally investigate or prosecute any alcohol or drug abuse patient.[facility] HospitalIn the event this information is protected by the Federal Confidentiality of Alcohol and Drug Abuse Patient Records regulations: The Federal rules restrict any use of the information to criminally investigate or prosecute any alcohol or drug abuse patient.[facility] HospitalIn the event this information is protected by the Federal Confidentiality of Alcohol and Drug Abuse Patient Records regulations: The Federal rules restrict any use of the information to criminally investigate or prosecute any alcohol or drug abuse patient.[facility] HospitalIn the event this information is protected by the Federal Confidentiality of Alcohol and Drug Abuse Patient Records regulations: The Federal rules restrict any use of the information to criminally investigate or prosecute any alcohol or drug abuse patient.[facility] HospitalIn the event this information is protected by the Federal Confidentiality of Alcohol and Drug Abuse Patient Records regulations: The Federal rules restrict any use of the information to criminally investigate or prosecute any alcohol or drug abuse patient.[facility] HospitalIn the event this information is protected by the Federal Confidentiality of Alcohol and Drug Abuse Patient Records regulations: The Federal rules restrict any use of the information to criminally investigate or prosecute any alcohol or drug abuse patient.[facility] HospitalIn the event this information is protected by the Federal Confidentiality of Alcohol and Drug Abuse Patient Records regulations: The Federal rules restrict any use of the information to criminally investigate or prosecute any alcohol or drug abuse patient.[facility] HospitalIn the event this information is protected by the Federal Confidentiality of Alcohol and Drug Abuse Patient Records regulations: The Federal rules restrict any use of the information to criminally investigate or prosecute any alcohol or drug abuse patient.[facility] HospitalIn the event this information is protected by the Federal Confidentiality of Alcohol and Drug Abuse Patient Records regulations: The Federal rules restrict any use of the information to criminally investigate or prosecute any alcohol or drug abuse patient.[facility] HospitalIn the event this information is protected by the Federal Confidentiality of Alcohol and Drug Abuse Patient Records regulations: The Federal rules restrict any use of the information to criminally investigate or prosecute any alcohol or drug abuse patient.[facility] HospitalIn the event this information is protected by the Federal Confidentiality of Alcohol and Drug Abuse Patient Records regulations: The Federal rules restrict any use of the information to criminally investigate or prosecute any alcohol or drug abuse patient.[facility] HospitalIn the event this information is protected by the Federal Confidentiality of Alcohol and Drug Abuse Patient Records regulations: The Federal rules restrict any use of the information to criminally investigate or prosecute any alcohol or drug abuse patient.[facility] HospitalIn the event this information is protected by the Federal Confidentiality of Alcohol and Drug Abuse Patient Records regulations: The Federal rules restrict any use of the information to criminally investigate or prosecute any alcohol or drug abuse patient.[facility] HospitalIn the event this information is protected by the Federal Confidentiality of Alcohol and Drug Abuse Patient Records regulations: The Federal rules restrict any use of the information to criminally investigate or prosecute any alcohol or drug abuse patient.[facility] HospitalIn the event this information is protected by the Federal Confidentiality of Alcohol and Drug Abuse Patient Records regulations: The Federal rules restrict any use of the information to criminally investigate or prosecute any alcohol or drug abuse patient.[facility] HospitalIn the event this information is protected by the Federal Confidentiality of Alcohol and Drug Abuse Patient Records regulations: The Federal rules restrict any use of the information to criminally investigate or prosecute any alcohol or drug abuse patient.[facility] HospitalIn the event this information is protected by the Federal Confidentiality of Alcohol and Drug Abuse Patient Records regulations: The Federal rules restrict any use of the information to criminally investigate or prosecute any alcohol or drug abuse patient.[facility] HospitalIn the event this information is protected by the Federal Confidentiality of Alcohol and Drug Abuse Patient Records regulations: The Federal rules restrict any use of the information to criminally investigate or prosecute any alcohol or drug abuse patient.[facility] HospitalIn the event this information is protected by the Federal Confidentiality of Alcohol and Drug Abuse Patient Records regulations: The Federal rules restrict any use of the information to criminally investigate or prosecute any alcohol or drug abuse patient.[facility] HospitalIn the event this information is protected by the Federal Confidentiality of Alcohol and Drug Abuse Patient Records regulations: The Federal rules restrict any use of the information to criminally investigate or prosecute any alcohol or drug abuse patient.[facility] HospitalIn the event this information is protected by the Federal Confidentiality of Alcohol and Drug Abuse Patient Records regulations: The Federal rules restrict any use of the information to criminally investigate or prosecute any alcohol or drug abuse patient.[facility] HospitalIn the event this information is protected by the Federal Confidentiality of Alcohol and Drug Abuse Patient Records regulations: The Federal rules restrict any use of the information to criminally investigate or prosecute any alcohol or drug abuse patient.[facility] HospitalIn the event this information is protected by the Federal Confidentiality of Alcohol and Drug Abuse Patient Records regulations: The Federal rules restrict any use of the information to criminally investigate or prosecute any alcohol or drug abuse patient.[facility] HospitalIn the event this information is protected by the Federal Confidentiality of Alcohol and Drug Abuse Patient Records regulations: The Federal rules restrict any use of the information to criminally investigate or prosecute any alcohol or drug abuse patient.[facility] HospitalIn the event this information is protected by the Federal Confidentiality of Alcohol and Drug Abuse Patient Records regulations: The Federal rules restrict any use of the information to criminally investigate or prosecute any alcohol or drug abuse patient.[facility] HospitalIn the event this information is protected by the Federal Confidentiality of Alcohol and Drug Abuse Patient Records regulations: The Federal rules restrict any use of the information to criminally investigate or prosecute any alcohol or drug abuse patient.[facility] HospitalIn the event this information is protected by the Federal Confidentiality of Alcohol and Drug Abuse Patient Records regulations: The Federal rules restrict any use of the information to criminally investigate or prosecute any alcohol or drug abuse patient.[facility] HospitalIn the event this information is protected by the Federal Confidentiality of Alcohol and Drug Abuse Patient Records regulations: The Federal rules restrict any use of the information to criminally investigate or prosecute any alcohol or drug abuse patient.[facility] HospitalIn the event this information is protected by the Federal Confidentiality of Alcohol and Drug Abuse Patient Records regulations: The Federal rules restrict any use of the information to criminally investigate or prosecute any alcohol or drug abuse patient.[facility] HospitalIn the event this information is protected by the Federal Confidentiality of Alcohol and Drug Abuse Patient Records regulations: The Federal rules restrict any use of the information to criminally investigate or prosecute any alcohol or drug abuse patient.[facility] HospitalIn the event this information is protected by the Federal Confidentiality of Alcohol and Drug Abuse Patient Records regulations: The Federal rules restrict any use of the information to criminally investigate or prosecute any alcohol or drug abuse patient.[facility] HospitalIn the event this information is protected by the Federal Confidentiality of Alcohol and Drug Abuse Patient Records regulations: The Federal rules restrict any use of the information to criminally investigate or prosecute any alcohol or drug abuse patient.[facility] HospitalIn the event this information is protected by the Federal Confidentiality of Alcohol and Drug Abuse Patient Records regulations: The Federal rules restrict any use of the information to criminally investigate or prosecute any alcohol or drug abuse patient.[facility] the event this information is protected by the Federal Confidentiality of Alcohol and Drug Abuse Patient Records regulations: The Federal rules restrict any use of the information to criminally investigate or prosecute any alcohol or drug abuse patient.[facility] HospitalIn the event this information is protected by the Federal Confidentiality of Alcohol and Drug Abuse Patient Records regulations: The Federal rules restrict any use of the information to criminally investigate or prosecute any alcohol or drug abuse patient.[facility] HospitalIn the event this information is protected by [...] or prosecute any alcohol or drug abuse patient.[facility] HospitalIn the event this information is protected by the Federal Confidentiality of Alcohol and Drug Abuse Patient Records regulations: The Federal rules restrict any use of the information to criminally investigate or prosecute any alcohol or drug abuse patient.[facility] HospitalIn the event this information is protected by the Federal Confidentiality of Alcohol and Drug Abuse Patient Records regulations: The Federal rules restrict any use of the information to criminally investigate or prosecute any alcohol or drug abuse patient.[facility] HospitalIn the event this information is protected by the Federal Confidentiality of Alcohol and Drug Abuse Patient Records regulations: The Federal rules restrict any use of the information to criminally investigate or prosecute any alcohol or drug abuse patient.[facility] HospitalIn the event this information is protected by the Federal Confidentiality of Alcohol and Drug Abuse Patient Records regulations: The Federal rules restrict any use of the information to criminally investigate or prosecute any alcohol or drug abuse patient.[facility] HospitalIn the event this information is protected by the Federal Confidentiality of Alcohol and Drug Abuse Patient Records regulations: The Federal rules restrict any use of the information to criminally investigate or prosecute any alcohol or drug abuse patient.[facility] HospitalIn the event this information is protected by the Federal Confidentiality of Alcohol and Drug Abuse Patient Records regulations: The Federal rules restrict any use of the information to criminally investigate or prosecute any alcohol or drug abuse patient.[facility] HospitalIn the event this information is protected by the Federal Confidentiality of Alcohol and Drug Abuse Patient Records regulations: The Federal rules restrict any use of the information to criminally investigate or prosecute any alcohol or drug abuse patient.[facility] HospitalIn the event this information is protected by the Federal Confidentiality of Alcohol and Drug Abuse Patient Records regulations: The Federal rules restrict any use of the information to criminally investigate or prosecute any alcohol or drug abuse patient.[facility] HospitalIn the event this information is protected by the Federal Confidentiality of Alcohol and Drug Abuse Patient Records regulations: The Federal rules restrict any use of the information to criminally investigate or prosecute any alcohol or drug abuse patient.[facility] HospitalIn the event this information is protected by the Federal Confidentiality of Alcohol and Drug Abuse Patient Records regulations: The Federal rules restrict any use of the information to criminally investigate or prosecute any alcohol or drug abuse patient.[facility] HospitalIn the event this information is protected by the Federal Confidentiality of Alcohol and Drug Abuse Patient Records regulations: The Federal rules restrict any use of the information to criminally investigate or prosecute any alcohol or drug abuse patient.[facility] HospitalIn the event this information is protected by the Federal Confidentiality of Alcohol and Drug Abuse Patient Records regulations: The Federal rules restrict any use of the information to criminally investigate or prosecute any alcohol or drug abuse patient.[facility] HospitalIn the event this information is protected by the Federal Confidentiality of Alcohol and Drug Abuse Patient Records regulations: The Federal rules restrict any use of the information to criminally investigate or prosecute any alcohol or drug abuse patient.[facility] HospitalIn the event this information is protected by the Federal Confidentiality of Alcohol and Drug Abuse Patient Records regulations: The Federal rules restrict any use of the information to criminally investigate or prosecute any alcohol or drug abuse patient.[facility] HospitalIn the event this information is protected by the Federal Confidentiality of Alcohol and Drug Abuse Patient Records regulations: The Federal rules restrict any use of the information to criminally investigate or prosecute any alcohol or drug abuse patient.[facility] HospitalIn the event this information is protected by the Federal Confidentiality of Alcohol and Drug Abuse Patient Records regulations: The Federal rules restrict any use of the information to criminally investigate or prosecute any alcohol or drug abuse patient.[facility] HospitalIn the event this information is protected by the Federal Confidentiality of Alcohol and Drug Abuse Patient Records regulations: The Federal rules restrict any use of the information to criminally investigate or prosecute any alcohol or drug abuse patient.[facility] HospitalIn the event this information is protected by the Federal Confidentiality of Alcohol and Drug Abuse Patient Records regulations: The Federal rules restrict any use of the information to criminally investigate or prosecute any alcohol or drug abuse patient.[facility] Reason for Visit (unrecogniz ed section and content) Reason Comments Joint Pain Specialty Diagnoses / Procedures Referred By Contac t Referred To Contact Diagnoses Rheumatoid arthritis involving both hands with positive rheumatoid factor (HCC) Procedures INJECTION, RENFLEXIS INJECTION, RENFLEXIS Robert Hinojosa MD [address] [place] [address] [facility] [address] [place] [address] Referral ID Status Reason Start Date Expiration Date Visits Requested Visits Authorized [id number] Authorized OON/Self Pay Override Patient Cleared INN/SMCP Payor Auth Obtained Patient Cleared - Admin/Chairm an/Director advise to proceed or did not respond 08/13/2021 08/03/2024 7 28 Reason Comments Chemotherapy Treatment Specialty Diagnoses / Procedures Referred By Contac t Referred To Contact Diagnoses Rheumatoid arthritis involving both hands with positive rheumatoid factor (HCC) Procedures INJECTION, RENFLEXRobert Centeno MD [address] [address] [facility] [address] [place] [address] Referral ID Status Reason Start Date Expiration Date Visits Requested Visits Authorized [id number] Authorized OON/Self Pay Override Patient Cleared INN/SMCP Payor Auth Obtained Patient Cleared - Admin/Chairm an/Director advise to proceed or did not respond 08/13/2021 08/27/2023 7 21 Reason Comments Infusion Specialty Diagnoses / Procedures Referred By Contac t Referred To Contact Diagnoses Rheumatoid arthritis involving both hands with positive rheumatoid factor (HCC) Procedures Robert Hinojosa MD [address] [address] [facility] [address] [place] [address] Referral ID Status Reason Start Date Expiration Date Visits Requested Visits Authorized [id number] Authorized OON/Self Pay Override Patient Cleared INN/SMCP Payor Auth Obtained Patient Cleared - Admin/Chairm an/Director advise to proceed 08/13/2021 08/13/2022 12 24 Specialty Diagnoses / Procedures Referred By Contac t Referred To Contact RHEUMATOLOGY Diagnoses Rheumatoid arthritis with rheumatoid factor of right hand without organ or systems involvement Procedures office visit Robert Farias MD [address] [place] [address] [facility] [place] [address] [place] [address] Referral ID Status Reason Start Date Expiration Date Visits Requested Visits Authorized [id number] Pending Review OON/Self Pay Override 12/04/2021 03/04/2022 1 1 Reason Comments New Patient old records here Status Reason Specialty Diagnoses / Procedures Referred By Contact Referred To Contact Closed OON/Self Pay Override RHEUMATOLOGY Diagnoses Rheumatoid arthritis (HCC) Procedures EST PATIENT VISIT LEVEL 4 Office Visit Robert Farias [address] [place] [address] [facility] [address] [place] [address] Reason Comments Medication Authorization remicade Reason Comments Pending PA Renflexis fax pendin g with [facility] Reason Comments Phone Call Reason Comments Patient Update Referral ID Status Reason Start Date Expiration Date Visits Requested Visits Authorized [id number] Authorized OON/Self Pay Override Patient Cleared INN/SMCP Payor Auth Obtained 08/04/2020 08/04/2021 12 12 Reason Comments Hip Pain Reason Comments APPROVED Rick Medina APPROVED [id number] 07.04.2021 - 07.21.2022 with [facility]/cover my meds Reason Comments Refill Request Reason Comments PENDING Renflexis PENDING [facility] fax with office note pt scheduled Reason Onset Date Comments Refill Request 09/10/2021 Reason Comments Patient Question Reason Onset Date Comments Refill Request 09/29/2021 Specialty Diagnoses / Procedures Referred By Contac t Referred To Contact Diagnoses Rheumatoid arthritis involving both hands with positive rheumatoid factor (HCC) Procedures Renflexis Robert Farias MD [address] [facility] [address] [place] [id number] [facility] [address] [place] [address] Specialty Diagnoses / Procedures Referred By Contac t Referred To Contact RHEUMATOLOGY Diagnoses Rheumatoid arthritis (HCC) Procedures follow up Robert Farias MD [address] [place] [address] [facility] [address] [facility] [place] [address] Referral ID Status Reason Start Date Expiration Date Visits Requested Visits Authorized [id number] Pending Review OON/Self Pay Override 10/04/2021 01/02/2022 1 1 Reason Onset Date Comments Refill Request 01/12/2022 Reason Comments [employer] - Other Reason Onset Date Comments Refill Request 02/07/2022 Specialty Diagnoses / Procedures [facility] To Contact RHEUMATOLOGY Diagnoses Rheumatoid arthritis with rheumatoid factor of right hand without organ or systems involvement Procedures FOLLOW-UP E-ASSESSMENT Robert Farias MD [address] [place] [address] [place] [address] [place] [address] Referral ID Status Reason Start Date Expiration Date Visits Requested Visits Authorized [id number] Pending Review OON/Self Pay Override 04/06/2022 10/03/2022 1 1 Specialty Diagnoses / Procedures [facility] To Contact Diagnoses Rheumatoid arthritis involving both hands with positive rheumatoid factor (HCC) Procedures INJECTION, RENFLEXIS Renflexis Robert Farias MD [address] [place] [address] [facility] [address] [place] [address] Referral ID Status Reason Start Date Expiration Date Visits Requested Visits Authorized [id number] Pending Review OON/Self Pay Override Patient Cleared INN/SMCP Payor Auth Obtained Patient Cleared - Admin/Chair man/Directo r advise to proceed or did not respond 08/13/2021 08/27/2023 7 21 Reason Onset Date Comments Refill Request 12/19/2022 Referral ID Status Reason Start Date Expiration Date Visits Requested Visits Authorized [id number] Pending Review OON/Self Pay Override 09/04/2022 03/03/2023 2 2 Reason Comments Medication Request Renflexis Order Reason Onset Date Comments Refill Request 02/01/2023 Specialty Diagnoses / Procedures Referred By Berenice krause Referred To Contact RHEUMATOLOGY Diagnoses Rheumatoid arthritis with rheumatoid factor of right hand without organ or systems involvement Procedures FOLLOW-UP E-ASSESSMENT Robert Farias MD [address] [place] [address] [place] [address] Antonio Castillo [address] [place] [id number] Referral ID Status Reason Start Date Expiration Date Visits Requested Visits Authorized [id number] Pending Review OON/Self Pay Override 05/04/2023 1 1 Reason Onset Date Comments Refill Request 04/24/2023 Reason Onset Date Comments Refill Request 06/05/2023 Reason Onset Date Comments Refill Request 07/25/2023 Reason Onset Date Comments Refill Request 08/02/2023 Reason Comments Medication Preauthorization Renflexis- S tow Approved [id number] [facility]/Faxed 08.04.23-08.03.24 Reason Comments Rheumatoid Arthritis Specialty Diagnoses / Procedures Referred By Berenice krause Referred To Contact RHEUMATOLOGY Diagnoses Rheumatoid arthritis with rheumatoid factor of right hand without organ or systems involvement Procedures FOLLOW-UP E-ASSESSMENT Robert Farias MD [address] [place] [id number] [facility] [address] [place] [address] [place] [address] Referral ID Status Reason Start Date Expiration Date Visits Requested Visits Authorized [id number] Pending Review OON/Self Pay Override 05/08/2023 10/04/2023 1 1 Reason Onset Date Comments Refill Request 10/13/2023 Reason Onset Date Comments Refill Request 11/02/2023 Reason Onset Date Comments Refill Request 11/20/2023 Reason Onset Date Comments Refill Request 04/05/2024 Reason Comments RENFLEXIS - PENDING Renflexsukumar, Benedicta - PE NDING [id number] [employer] [facility] Specialty Diagnoses / Procedures Referred By Contac t Referred To Contact Diagnoses Rheumatoid arthritis involving both hands with positive rheumatoid factor (HCC) Procedures INJECTION, RENFLEXIS Cheyenne Garcia PA-C [address] [place] [address] Phone: tel: fax: Hematology/Oncology [address] [place] [address] Phone: tel: fax: Referral ID Status Reason Start Date Expiration Date Visits Requested Visits Authorized [id number] Authorized OON/Self Pay Override 09/13/2023 08/02/2024 2 6 Reason Comments Rheumatoid Arthritis Specialty Diagnoses / Procedures Referred By Contac t Referred To Contact RHEUMATOLOGY Diagnoses Rheumatoid arthritis with rheumatoid factor of right hand without organ or systems involvement Procedures FOLLOW-UP E-ASSESSMENT Robert Farias MD [address] [place] [address] Phone: tel: fax: [facility] General Arthritis [place] [address] Phone: tel: fax: Referral ID Status Reason Start Date Expiration Date Visits Requested Visits Authorized [id number] New Request OON/Self Pay Override 02/05/2024 07/03/2024 1 1 Reason Comments RENFLEXIS - PENDING RenYue aldrichw - PE NDING [id number] [employer]/Portal Specialty Diagnoses / Procedures Referred By Contac t Referred To Contact Diagnoses Rheumatoid arthritis involving both hands with positive rheumatoid factor (HCC) Procedures INJECTION, RENFLEXIS INJECTION, INFLECTRA Cheyenne Garcia PA-C [address] [place] [address] Phone: tel: fax: Hematology/Oncology [address] [place] [address] Phone: tel: fax: Referral ID Status Reason Start Date Expiration Date Visits Requested Visits Authorized [id number] Authorized OON/Self Pay Override Patient Cleared - Admin/Chairm an/Director advise to proceed or did not respond 09/13/2023 10/28/2024 3 9 Reason Onset Date Comments Refill Request 08/13/2024 Care Teams (unrecognized sec tion and content) Team Status: Active Member Role Status Sakshi Greco MD Primary Care Provider Active Team Status: Inactive Member Role Status Sakshi Greco MD Primary Care Provider Active St art: January 31, 2024 End: January 31, 2024 Xiang Rogers FRANCHISE MANAGER, FRANCHISE MANAGER-C Attending Provider Active S tart: January 31, 2024 End: January 31, 2024 Xiang Rogers FRANCHISE MANAGER, FRANCHISE MANAGER-C Referring Provider Active S tart: January 31, [...] 2024 End: February 26, 2024 Ana Rosa RONDON PA Attending Provider Active Start: February 26, 2024 End: February 26, 2024 Team Status: Inactive Member Role Status Sakshi Greco MD Primary Care Provider Active St art: February 26, 2024 End: February 26, 2024 Ana Rosa RONDON PA Attending Provider Active Start: February 26, 2024 End: February 26, 2024 Ana Rosa RONDON PA Referring Provider Active Start: February 26, 2024 [...] Team Status: Inactive Member Role Status Sakshi Gerco MD Primary Care Provider Active St art: [...] 2024 Team Status: Active Member Role Status Dates [...] Provider Active S tart: May 27, 2024 Groover Operator Relationship Specialty Start Date End Date Edis Trejo [address] [place] [address] PCP - General Family Practice 04/07/20 Groover Operator Relationship Specialty Start Date End Date Edis Trejo [address] [place] [address] PCP - General Family Practice 04/07/20 Groover Operator Relationship Specialty Start Date End Date Edis Trejo [address] [place] [address] PCP - General Family Practice 04/07/20 Groover Operator Relationship Specialty Start Date End Date Edis Trejo [address] [place] [address] PCP - General Family Practice 04/07/20 Groover Operator Relationship Specialty Start Date End Date Edis Trejo [address] [place] [address] PCP - General Family Practice 04/07/20 Groover Operator Relationship Specialty Start Date End Date Edis Trejo [address] [place] [address] PCP - General Family Practice 04/07/20 Groover Operator Relationship Specialty Start Date End Date Edis Trejo [address] [place] [address] PCP - General Family Practice 04/07/20 Groover Operator Relationship Specialty Start Date End Date Edis Trejo [address] [place] [address] PCP - General Family Practice 04/07/20 Groover Operator Relationship Specialty Start Date End Date Edis Trejo [address] [place] [address] PCP - General Family Practice 04/07/20 Groover Operator Relationship Specialty Start Date End Date Edis Trejo [address] [place] [address] PCP - General Family Practice 04/07/20 Groover Operator Relationship Specialty Start Date End Date Edis Trejo [address] [place] [address] PCP - General Family Practice 04/07/20 Groover Operator Relationship Specialty Start Date End Date Edis Trejo [address] [place] [address] PCP - General Family Medicine 04/07/20 Groover Operator Relationship Specialty Start Date End Date Edis Trejo [address] [place] [address] PCP - General Family Medicine 04/07/20 Groover Operator Relationship Specialty Start Date End Date Edis Trejo [address] [place] [address] PCP - General Family Medicine 04/07/20 Groover Operator Relationship Specialty Start Date End Date Edis Trejo [address] [place] [address] PCP - General Family Medicine 04/07/20 Groover Operator Relationship Specialty Start Date End Date Edis Trejo DO [address] [place] [address] PCP - General Family Medicine 04/07/20 Groover Operator Relationship Specialty Start Date End Date PadminiEdis [address] [place] [address] PCP - General Family Medicine 04/07/20 Groover Operator Relationship Specialty Start Date End Date Padmini Edis Ford [address] [place] [address] PCP - General Family Medicine 04/07/20 Groover Operator Relationship Specialty Start Date End Date Padmini Edis Ford [address] [place] [address] PCP - General Family Medicine 04/07/20 Groover Operator Relationship Specialty Start Date End Date Padmini Edis Ford [address] [place] [address] PCP - General Family Medicine 04/07/20 Team Status: Active Member Role Status Dates Dr. Jaren Huerta MD Family Provider Active Alisa Escobar DO Primary Care Provider Active Team Status: Inactive Member Role Status Dates Alisa Escobar DO Primary Care Provi lorna, Attending Provider, Referring Provider Active Groover Operator Relationship Specialty Start Date End Date Padmini Edis Ford [address] [place] [address] PCP - General Family Medicine 04/07/20 Groover Operator Relationship Specialty Start Date End Date Padmini Edis Ford [address] [place] [address] PCP - General Family Medicine 04/07/20 Groover Operator Relationship Specialty Start Date End Date Padmini Edis Ford [address] [place] [address] PCP - General Family Medicine 04/07/20 Groover Operator Relationship Specialty Start Date End Date Edis Trejo DO [address] [place] [address] PCP - General Family Medicine 04/07/20 Groover Operator Relationship Specialty Start Date End Date Edis Trejo DO [address] [place] [address] PCP - General Family Medicine 04/07/20 Groover Operator Relationship Specialty Start Date End Date Edis Trejo DO [address] [place] [address] PCP - General Family Medicine 04/07/20 Groover Operator Relationship Specialty Start Date End Date Edis Trejo DO [address] [place] [address] PCP - General Family Medicine 04/07/20 Team Status: Active Member Role Status Dates Alisa Escobar , Primary Care Provi lorna, Referring Provider, Other Provider Active Dr. Morgan Duarte , Attending Provider Active Groover Operator Relationship Specialty Start Date End Date Edis Trejo DO [address] [place] [address] PCP - General Family Medicine 04/07/20 Groover Operator Relationship Specialty Start Date End Date Edis Trejo DO [address] [place] [address] PCP - General Family Medicine 04/07/20 Groover Operator Relationship Specialty Start Date End Date Edis Trejo DO [address] [place] [address] PCP - General Family Medicine 04/07/20 Groover Operator Relationship Specialty Start Date End Date Edis Trejo DO [address] [place] [address] PCP - General Family Medicine 04/07/20 Groover Operator Relationship Specialty Start Date End Date Edis Trejo DO [address] [place] [address] PCP - General Family Medicine 04/07/20 Groover Operator Relationship Specialty Start Date End Date Edis Trejo DO [address] [place] [address] PCP - General Family Medicine 04/07/20 Groover Operator Relationship Specialty Start Date End Date Edis Trejo DO [address] [place] [address] PCP - General Family Medicine 04/07/20 Groover Operator Relationship Specialty Start Date End Date Edis Trejo DO [address] [place] [address] PCP - General Family Medicine 04/07/20 Groover Operator Relationship Specialty Start Date End Date Edis Trejo DO [address] [place] [address] PCP - General Family Medicine 04/07/20 Groover Operator Relationship Specialty Start Date End Date Edis Trejo DO [address] [place] [address] PCP - General Family Medicine 04/07/20 Groover Operator Relationship Specialty Start Date End Date Edis Trejo DO [address] [place] [address] PCP - General Family Medicine 04/07/20 Groover Operator Relationship Specialty Start Date End Date Edis Trejo DO [address] [place] [address] PCP - General Family Medicine 04/07/20 Groover Operator Relationship Specialty Start Date End Date Edis Trejo LilianaDO [address] [place] [address] PCP - General Family Medicine 04/07/20 Groover Operator Relationship Specialty Start Date End Date Edis Trejo DO [address] [place] [address] PCP - General Family Medicine 04/07/20 Groover Operator Relationship Specialty Start Date End Date Edis Trejo DO [address] [place] [address] PCP - General Family Medicine 04/07/20 Groover Operator Relationship Specialty Start Date End Date Edis Trejo DO [address] [place] [address] PCP - General Family Medicine 04/07/20 Groover Operator Relationship Specialty Start Date End Date Paul Greco MD [address] [place] [address] PCP - General Internal Medicine 09/29/23 Groover Operator Relationship Specialty Start Date End Date Paul Greco MD [address] [place] [address] PCP - General Internal Medicine 09/29/23 Groover Operator Relationship Specialty Start Date End Date Paul Greco MD [address] [place] [address] PCP - General Internal Medicine 09/29/23 Groover Operator Relationship Specialty Start Date End Date Paul Greco MD [address] [facility] [address] [place] [address] PCP - General Internal Medicine 09/29/23 Groover Operator Relationship Specialty Start Date End Date Paul Greco MD [address] [facility] [address] [place] [address] PCP - General Internal Medicine 09/29/23 Groover Operator Relationship Specialty Start Date End Date Paul Greco MD [address] [facility] [address] [place] [address] PCP - General Internal Medicine 09/29/23 Groover Operator Relationship Specialty Start Date End Date Paul Greco MD [address] [facility] [address] [place] [address] PCP - General Internal Medicine 09/29/23 Groover Operator Relationship Specialty Start Date End Date Paul Greco MD [address] [facility] [address] [place] [address] PCP - General Internal Medicine 09/29/23 Groover Operator Relationship Specialty Start Date End Date Paul Greco MD [address] [facility] [address] [place] [address] PCP - General Internal Medicine 09/29/23 Groover Operator Relationship Specialty Start Date End Date Paul Greco MD [address] [facility] [address] [place] [address] PCP - General Internal Medicine 09/29/23 Team Status: Active Member Role Status Sakshi [...] January 24, 2024 End: January 24, 2024 Groover Operator Relationship Specialty Start Date End Date Paul Greco MD [address] [facility] [address] [place] [address] PCP - General Internal Medicine 09/29/23 Groover Operator Relationship Specialty Start Date End Date Paul Greco MD [address] [facility] [address] [place], [place] [address] PCP - General Internal Medicine 09/29/23 Team [...] July 30, 2024 End: July 30, 2024 Palu Greco MD Referring Provider Active Start : July 30, 2024 End: July 30, 2024 Ambreen Delaney FRANCHISE MANAGER, FRANCHISE MANAGER-C Attending Provider Active Start: July 30, 2024 End: July 30, 2024 Groover Operator Relationship Specialty Start Date End Date Paul Greco MD [facility] [address] [facility] [address] [place] [address] PCP - General Internal Medicine 09/29/23 Team Status: Inactive Member Role Status Sakshi Greco MD Primary Care Provider Active St art: July 25, 2024 End: July 25, 2024 Dr. Ranjit Rosario MD Attending Provider Active Sta rt: July 25, 2024 End: July 25, 2024 Dr. Ranjit Rosario MD Emergency Provider Active Sta rt: July 25, 2024 End: July 25, 2024 Team Status: Inactive Member Role Status Sakshi Greco MD Primary Care Provider Active St art: August 06, 2024 End: August 06, 2024 Ambreen Delaney FRANCHISE MANAGER, FRANCHISE MANAGER-C Attending Provider Active Start: August 06, 2024 End: August 06, 2024 Ambreen Delaney FRANCHISE MANAGER, FRANCHISE MANAGER-C Referring Provider Active Start: August 06, 2024 End: August 06, 2024 Team Status: Inactive Member Role Status Sakshi Greco MD Primary Care Provider Active St art: August 13, 2024 End: August 13, 2024 Ambreen Delaney FRANCHISE MANAGER, FRANCHISE MANAGER-C Attending Provider Active Start: August 13, 2024 End: August 13, 2024 Ambreen Delaney FRANCHISE MANAGER, FRANCHISE MANAGER-C Referring Provider Active Start: August 13, 2024 End: August 13, 2024 Goals (unrecognized section and content) Goals may be documented in a n alternate sectionGoals may be documented in an alternate sectionGoals may be documented in an alternate section INFORMATION SOURCE (unrecogn ized section and content) DATE CREATED AUTHOR 08/15/2022 [facility] DATE CREATED AUTHOR AUTHOR'S ORGANIZ ATION 06/02/2024 [facility] DATE CREATED AUTHOR AUTHOR'S ORGANIZ ATION 08/13/2024 [facility] DATE CREATED AUTHOR AUTHOR'S ORGANIZ ATION 08/22/2024 [facility] Inactive Administered Medications - up to 3 [...] BE BASED ON THE PRIMARY CLINICAL RECORDS. [facility]. provides no warranty or guarantee of the accuracy or completeness of information in this document.
== END | disposition home or self-care (01) ==
LOC: OPMRI 07:06
PROVIDERS: PCP Family Medicine; Referring Provider Family Medicine; Visit Provider Family Medicine
DX: R29.90 Unspecified symptoms and signs involving the nervous system (principal)
CPT/HCPCS: 70551

== ENCOUNTER → 2025-01-31 | Outpatient (CLI) | payer OTHER, SELFPAY ==
--- NOTE | 2025-01-31 14:30 | RAD_ITS ---
PROCEDURE: CERV SPINE OBL/FLEX/EXT COMP 01/31/2025 REASON FOR EXAM: CERVICALGIA Left-sided neck pain radiating into left shoulder. Pain is increasing in severity. Injury years ago to the left shoulder. History of rheumatoid arthritis. TECHNIQUE: Procedure Code: [id number] Modality: DX Procedure: CERV SPINE OBL/FLEX/EXT COMP COMPARISON: None FINDINGS: Vertebrae: The cervical vertebral body heights are within normal limits. There is no spondylolysis. Mild spondylosis of the cervical spine is noted. The dens and lateral masses are suboptimally visualized due to overlying normal anatomical structures obscuring portions of the dens and lateral masses. Disc spaces: Intervertebral disc spaces are well-maintained. Alignment: The cervical alignment is within normal limits. There is no spondylolisthesis. soft tissues: No prevertebral soft tissue swelling is seen. RAD/Cerv Spine Obl/Flex/Ext Comp IMPRESSION: There is mild spondylosis of the cervical spine. If the patient's symptoms con tinue or worsen, an MRI may be of value for further evaluation of the disc spaces, nerve roots and soft tissue structures. MRI is much more sensitive at evaluating the soft tissue structures of the neck. Disclaimer: Reading Location: [id number]
--- OUTSIDE RECORDS SUMMARY | 2025-01-31 14:33 | XMS RPT_ITS | CCD ---
Author Organization [facility] Care Team Providers Care Automation Controls Specialist Name Role Phone Edis Trejo Primary [...] Dr. Jose Mondragon MD Referring Provider Roof CHASSIS ENGINEER-CXiang Attending Provider Roof CHASSIS ENGINEER-C, Xiang Barger Referring Provider Paul Greco MD Referring Provider Andressa Wasserman Attending Provider Paul Greco MD Attending Provider Dr. Gustabo العلي DO Attending Provider [phone] Gustabo العلي DO Emergency Provider Ana Rosa Hardin Attending Provider Ana Rosa Hardin Referring Provider Zurdo Polo MD Attending Provider Zurdo Polo MD Emergency Provider Anne-Marie SHETH, Dr. Rogers Attending Provider Anne-Marie SHETH, Dr. Rogers Other Provider Angus DORMAN, Paul Primary Care Provider Giancarlo DORMAN, Dr. [...] De Jesus DO Emergency Provider Dr. Ranjit Garces MD Emergency Provider Ambreen Hoffmann Attending Provider Dr. Ranjit Garces MD Attending Provider Ambreen Hoffmann Referring Provider Paul Greco MD Primary Care Provider Paul Greco MD Referring Provider Paul Greco MD Attending Provider Jarrett DORMAN, Inderprit Unavailable Angus DORMAN, Chalon Primary Care Provider Angus DORMAN, Chalon Referring Provider [phone] Angus, Chalon Primary Care Unavailable Rhett CHASSIS ENGINEER, Ambreen Attending Unavailable Rhett CHASSIS ENGINEER, Ambreen Referring Unavailable Angus, Chalon Primary Care Unavailable Giancarlo, Jose Referring Unavailable Giancarlo, Jose Attending Unavailable Angus, Chalon Primary Care Unavailable Giancarlo, Jose Referring Unavailable Giancarlo, Jose Attending Unavailable Angus, Chalon Primary Care Unavailable Roof CHASSIS ENGINEER, Xiang H Referring Unavailable Roof CHASSIS ENGINEER, Xiang H Attending Unavailable Angus, Chalon Primary Care Unavailable Giancarlo, Jose Referring Unavailable Giancarlo, Jose Attending Unavailable Angus, Chalon Primary Care Unavailable Angus, Chalon Attending Unavailable Angus, Chalon Referring Unavailable Angus, Chalon Primary Care Unavailable Zeke iSlva Consulting Unavailable Zeke Silva Admitting Unavailable Natalie Gaspar Attending Unavailable Antolin Wolfe Consulting Unavailable Angus, Chalon Primary Care Unavailable Isael Baeza Attending Unavailable Natalie Gaspar Consulting Unavailable White Natalie L Admitting Unavailable Angus, Chalon Primary Care Unavailable Ana Rosa Hardin Referring Unavail able Ana Rosa Hardin Attending Unavail able Angus, Chalon Primary Care Unavailable Angus, Chalon Referring Unavailable Angus, Chalon Attending Unavailable Angus, Chalon Primary Care Unavailable Angus, Chalon Attending Unavailable Angus, Chalon Referring Unavailable Corey De Jesus Attending Unavailable Angus, Chalon Primary Care Unavailable Ranjit Garces Attending Unavailable Angus, Chalon Primary Care Unavailable Angus, Chalon Primary Care Unavailable Gustabo العلي Attending Unavailable Angus, Chalon Primary Care Unavailable Zurdo Polo Attending Unavailable Angus, Chalon Primary Care Unavailable Andressa aHney Attending Unavailable Rhett CHASSIS ENGINEER, Ambreen Attending Unavailable Rhett CHASSIS ENGINEER, Ambreen Referring Unavailable Angus, Chalon Primary Care Unavailable Angus, Chalon Referring Unavailable Angus, Chalon Primary Care Unavailable Andressa Haney Attending Unavailable Angus, Chalon Referring Unavailable Angus, Chalon Primary Care Unavailable Ana Rosa Hardin Attending Unavail able Angus, Chalon Primary Care Unavailable Giancarlo, Jose Referring Unavailable Giancarlo, Jose Attending Unavailable Angus, Chalon Primary Care Unavailable Angus, Chalon Referring Unavailable Ken Xie Attending Unavailable Angus, Chalon Referring Unavailable Andressa Haney Attending Unavailable Angus, Chalon Primary Care Unavailable Angus, Chalon Primary Care Unavailable Giancarlo, Jose Referring Unavailable Giancarlo, Jose Attending Unavailable Angus, Chalon Primary Care Unavailable Giancarlo, Jose Attending Unavailable Angus, Chalon Primary Care Unavailable Colby Davey Attending Unavailable de Zeke Clayton Referring Unavailable Angus, Chalon Primary Care Unavailable Belal, Farouk Attending Unavailable PetarColby soler Attending Unavailable Angus, Chalon Referring Unavailable Angus, Chalon Primary Care Unavailable Friend, Ken Attending Unavailable Friend, Ken Consulting Unavailable Angus, Chalon Primary Care Unavailable Zeke Silva Consulting Unavailable White, Natalie L Attending Unavailable Zeke Silva Admitting Unavailable Belal, Farouk Consulting Unavailable White, Natalie L Consulting Unavailable Zeke Silva Attending Unavailable Angus, Chalon Primary Care Unavailable White, Natalie L Attending Unavailable White, Natalie L Consulting Unavailable White, Natalie L Admitting Unavailable White, Natalie L Admitting Unavailable Angus, Chalon Primary Care Unavailable White, Natalie L Consulting Unavailable PetarColby soler Attending Unavailable Isael Baeza Consulting Unavailable Angus, Chalon Referring Unavailable Rhett CHRISTIANSON, Ambreen Attending Unavailable Angus, Chalon Primary Care Unavailable Angus, Chalon Primary Care Unavailable Angus, Chalon Referring Unavailable Ambreen Delaney NP Attending Unavailable Nagus, Chalon Referring Unavailable Angus, Chalon Primary Care Unavailable Ana Rosa Hardin Attending Unavail able Angus, Chalon Primary Care Unavailable Angus, Chalon Referring Unavailable Andressa Haney Attending Unavailable FARIAS, INDERPRIT Referring Unavailable ANGUS, [...] Primary Care Unavailable FARIAS, INDERPRIT Referring Unavailable PAUL GRECO Primary Care Unavailable FARIAS, INDERPRIT Referring Unavailable FARIAS, INDERPRIT Attending Unavailable PAUL GRECO Primary Care Unavailable JARRETT INDERPRIT Referring Unavailable OLEG GRECOBART Primary Care Unavailable GAUTAM ADAM DO Attending Unavailable PHYSICIAN, NOT RECORDED Primary Care Unavaila ble Allergies Allergy Classification Reported Allergen(s) Allergy Type Date of Onset Reaction(s) Facility Opioid Agonists (9 sources) Meperidine Drug Allergy 1 Other: See Comments [facility] Sulfonamides (antibiotic) (9 sources) Sulfonamides (Antibiotic) Drug Allergy 1 GI Upset [facility] (20 sources) Meperidine; Translations: [MEPERIDINE] Drug Allergy 1 Other: See Comments [facility] (20 sources) Sulfonamides (Antibiotic); Translations: [SULFA (SULFONAMIDE ANTIBIOTICS)] Drug Allergy 1 GI Upset [facility] (7 sources) Sulfonamides (Antibiotic) Propensity to adverse reactions 5 Abd cramps/diarrhea [facility] (1 source) Meperidine Drug Allergy 5 [facility] (1 source) Sulfonamides (Antibiotic) Drug allergy (disorder) 5 [facility] Medications Current Medications Medication Drug [...] for shortness of breath or wheezing 8.5 0 January 13, 2024 12:51pm Pneumonia Pneumonia, unspecified organism Start: 01-11-2024 End: 01-13-2024 Albuterol Sulfate 2.5 [...] Start: 05-22-2020 take 1 puff(s) by mo [facility] every six hours as needed albuterol HFA (PROVENTIL HFA, VENTOLIN HFA) 90 mcg/actuation inhaler INHALE 1 PUFF BY MOUTH EVERY 6 HOURS NEEDED 05/22/2020 Active Comment on above: INHALE 1 PUFF BY PARTH EVERY 6 HOURS NEEDED amLODIPine 5 mg oral tablet (20 sources) Dihydropyridine Calcium Channel Fahad Start: take 1 tablet by mouth once daily amLODIPine (NORVASC) 5 mg tablet Take 5 mg by mouth once daily. 05/23/2024 Active Start: 03-29-2024 End: 04-12-2024 take 1 tablet by mouth once daily Amlodipine 5 mg tablet Discontinued 5 mg PO .COMPLEX 30 March 29, 2024 11:27am April 12, 2024 2:45pm 5 mg orally daily at noon; atorvastatin 80 mg oral tablet (20 sources) HMG-CoA Reductase Inhibitor Start: 01-13-2024 take 1 tablet by mouth once daily atorvastatin (LIPITOR) 80 mg tablet Take 80 mg by mouth once daily. 01/13/2024 Active cholecalciferol 1.25 mg oral capsule (17 sources) Vitamin D Start: 07-03-2024 End: 07-03-2024 Cholecalciferol (Vitamin D3) 1,250 mcg (50,000 unit) [...] oral tablet (20 sources) Start: 02-17-2021 End: 10-07-2024 take 1 tablet by mouth once daily folic acid 1 mg tablet Take 1 tablet by mouth once daily. 90 tablet 1 10/07/2024 Active Start: 07-26-2016 folic acid 1 m g tablet folic acid 1 mg tablet 0 07/26/2016 Active Comment on above: folic acid 1 mg tabl et TAKE 1 TABLET BY PARTH TH EVERY DAY Take 1 tablet by parth th once daily. hydroxychloroquine sulfate 200 mg oral tablet (20 sources) Antimalarial, Antirheumatic Agent Start: 2023 End: 2024 take 1 tablet by mouth once daily hydrOXYchloroQUINE (PLAQUENIL) 200 mg tablet Take 1 tablet by mouth once daily. 90 tablet 11/11/2024 Active Start: 11-15-2021 End: 05-02-2023 take 1 tablet [...] on above: TAKE 1 TABLET BY PARTH TWICE A DAY OR 2 TABLETS ONCE DAILY TAKE 1 TABLET BY PARTH EVERY DAY Take 1 tablet by parth once daily. take 1 tablet by parth once daily Infliximab-Abda (Renflexis) 100 mg recon soln (7 sources) Start: 01-11-2024 Infliximab-Abda (Renflexis) 100 mg recon soln Active IV .Q6W January 11, 2024 1:00am RA Start: 01-11-2024 Infliximab-Abd a (Renflexis) 100 mg recon soln Active IV .Q6W January 11, 2024 1:00am levothyroxine sodium 0.025 mg oral tablet (20 sources) l-Thyroxine Start: 05-22-2020 take 1 tablet by mouth once daily levothyroxine (SYNTHROID) 25 mcg tablet Take 25 mcg by mouth once daily. 05/22/2020 Active Comment on above: Take 25 mcg by mouth once daily. lidocaine 25 mg/ml / prilocaine 25 mg/ml topical cream (20 sources) Antiarrhythmic, Amide Local Anesthetic Start: 09-28-2021 lidocaine-prilocain e 2.5-2.5 % (EMLA) losartan potassium 25 mg oral tablet (6 sources) Angiotensin 2 Receptor Fahad Start: 10-29-2024 take 2 tablets by mouth twice daily Losartan 25 mg tablet Active 50 mg PO TWICE A DAY 60 October 29, 2024 8:44am Start: 07-30-2024 End: 10-29-2024 take 1 tablet by mouth twice daily Losartan 25 mg tablet Discontinued 25 mg PO TWICE A DAY 60 July 30, 2024 12:00am October 29, 2024 8:44am methotrexate 2.5 mg oral tablet (20 sources) Folate Analog Metabolic Inhibitor Start: 08-18-2024 End: 08-18-2025 take 6 tablets by mouth once methotrexate [...] 11, 2024 1:00am July 30, 2024 8:24am RA Start: 01-11-2024 Methotrexate S odium 2.5 mg [...] oral tablet (20 sources) beta-Adrenergic Fahad Start: take 1 tablet by mouth twice daily metoprolol tartrate, short acting, (LOPRESSOR) 50 mg tablet Take 50 mg by mouth two times a day. 05/30/2024 Active Start: 02-09-2024 End: 02-26-2024 take 1 tablet by mouth twice daily metoprolol tartrate, short acting, (LOPRESSOR) 50 mg tablet Take 50 mg by mouth two times a day. 05/30/2024 Active Start: 02-09-2024 End: 02-26-2024 take 1 tablet by mouth every twenty-four hours at bedtime Metoprolol Succinate 25 mg tablet extended release 24 hr Discontinued 25 mg PO AT BEDTIME 02 02February 09, 2024 1:00am February 26, 2024 10:47am montelukast 10 mg oral tablet (20 sources) Leukotriene Receptor Antagonist Start: 05-22-2020 take 1 tablet by mouth once daily montelukast (SINGULAIR) 10 mg tablet Take 10 mg by mouth once daily. 05/22/2020 Active Comment on above: Take 10 mg by mouth once daily. spironolactone 25 mg oral tablet (7 sources) Aldosterone Antagonist Start: 02-26-2024 take 1 tablet by mouth once daily Spironolactone 25 mg tablet Active 25 mg PO DAILY 02 02February 26, 2024 1:00am Completed/Discontinued Medications Medication Drug Class(es) Dates Sig [...] INSTEAD of the opioid, if preferred: N/A codeine phosphate 2 mg/ml / guaiFENesin 20 mg/ml oral solution (7 sources) Opioid Agonist Start: 03-11-2024 End: 04-12-2024 take 1 mL by mouth four times daily as needed for cough Codeine-Guaifenesin (Guaifenesin Ac) 10-100 mg/5 mL liquid Discontinued 5 mL PO 4 TIMES DAILY as needed for cough 140 7 0 March 11, 2024 5:26am April 12, 2024 2:42pm COVID-19 COVID-19 dapagliflozin 10 mg oral tablet (16 sources) Sodium-Glucose Cotransporter 2 Inhibitor Start: 01-11-2024 [...] breakfast. doxycycline hyclate 100 mg oral tablet (7 sources) Tetracycline-class Drug Start: End: 4 take 1 tablet by mouth twice daily Doxycycline Hyclate 100 mg tablet Discontinued 100 mg PO TWICE A DAY 10 5 0 January 13, 2024 1:00am February 09, 2024 6:41pm Pneumonia ferrous gluconate 240 mg oral tablet (14 sources) Start: End: take 1 tablet by mouth once daily Ferrous Gluconate (Ferate) 240 mg (27 mg iron) tablet Discontinued 240 mg PO DAILY 30 30 0 February 26, 2024 12:57pm April 12, 2024 2:43pm Fluticasone-Umeclidin -Vilanter (20 sources) Anticholinergic, Corticosteroid, beta2-Adrenergic Agonist Start: End: Fluticasone-Umeclidin -Vilanter (Trelegy Ellipta) 100-62.5-25 mcg blister with device Discontinued 1 NMA INHALATION DAILY January 11, 2024 1:00am April 12, 2024 2:43pm Start: 12-21-2023 End: 10-25-2024 take 1 puff(s) by inhalation once daily TRELEGY ELLIPTA 100-62.5-25 mcg inhalation powder Inhale 1 Puff as instructed once daily. 12/21/2023 10/25/2024 Discontinued (Course of therapy completed) 60 actuat formoterol fumarate 0.005 mg/actuat / [...] guaiFENesin 600 mg extended release oral tablet (7 sources) Start: 01-13-2024 End: 02-26-2024 take 1 tablet by mouth twice daily, then take 1 tablet by mouth every twelve hours Guaifenesin (Mucinex) 600 mg Tablet Extended Release 12hr Discontinued 600 mg PO TWICE A DAY 60 30 0 January 13, 2024 1:00am February 26, 2024 10:15am hydrALAZINE hydrochloride 25 mg oral tablet (20 sources) Arteriolar Vasodilator Start: 07-30-2024 End: 07-30-2024 take 5 mg by mouth three times daily Hydralazine 25 mg tablet Discontinued 5 mg PO THREE TIMES A DAY July 30, 2024 8:22am July 30, 2024 8:58am Start: 04-12-2024 End: 10-25-2024 take 1 tablet by mouth three times daily Hydralazine 25 mg tablet Discontinued 25 mg PO THREE TIMES A DAY April 12, 2024 1:00am July 30, 2024 8:24am inFLIXimab-abda 400 mg in Na Cl 0.9% 250 mL (RENFLEXIS) (7 sources) Start: [...] at 1100, TOTAL VOLUME = 250 mL. EXP:02/29/242199 Administer with 0.2 micron filter. Start: 01-18-2024 [...] 250 mL (RENFLEXIS) inFLIXimab-dyyb 400 mg in Na Cl 0.9% 250 mL (INFLECTRA) (3 sources) Start: 11-08-2024 End: 11-08-2024 400 mg (rounded from 444 mg = 5 mg/kg/dose 88.8 kg), INTRAVENOUS, at 83.33-250 mL/hr, Administer over 1-3 Hours, ONCE, 1 dose, On Mon11/08/24 at 1330, Total Volume: = 250 mL REFRIG EXP: 11/18/24 1400 Administer with 0.2 micron filter., Medication Substitution: [facility] preferred product has been replaced with the insurance mandated product Start: 09-27-2024 End: 09-27-2024 400 mg (rounded from 439.5 m g = 5 mg/kg/dose 87.9 kg), INTRAVENOUS, at 83.33-250 mL/hr, Administer over 1-3 Hours, ONCE, 1 dose, On Mon09/27/24 at 1330, Total Volume: = 250 mL REFRIG EXP: 10/07/24 1400 Administer with 0.2 micron filter., Medication Substitution: [facility] preferred product has been replaced with the insurance mandated product Start: 08-09-2024 End: 08-09-2024 400 mg (rounded from 426 mg = 5 mg/kg/dose 85.2 kg), INTRAVENOUS, at 83.33-250 mL/hr, Administer over 1-3 Hours, ONCE, 1 dose, On Mon08/09/24 at 1400, Total Volume: = 250 mL REFRIG EXP: 08/19/24 1400 Administer with 0.2 micron filter., Medication Substitution: [facility] preferred product has been replaced with the insurance mandated product ipratropium bromide 0.042 mg/actuat metered dose nasal spray (7 sources) Anticholinergic Start: 01-11-2024 End: 07-30-[address] [employer] 42 mcg (0.06 %) spray,non-aerosol Discontinued 2 [...] 1:00am January 11, 2024 11:28pm Start: 11-20-2019 End: 02-26-2024 take 1 tablet by mouth once daily lisinopril (ZESTRIL) 20 mg tablet Take 20 mg by mouth once daily. 11/20/2019 Active Start: 11-20-2019 lisinopril (ZE STRIL, PRINIVIL) 10 mg tablet lisinopril 10 mg tablet 0 11/20/2019 Active Comment on above: lisinopril 10 mg tab [...] 10:15am Start: 09-27-2023 take 1 tablet by once daily at breakfast metFORMIN ER (GLUCOPHAGE [...] 12, 2024 1:00am January 13, 2024 12:45pm arthritis Start: 08-09-2016 End: 07-24-2023 take 1 tablet [...] th two times a day with meals. Nirmatrelvir-Ritonavi r (Paxlovid) 300 mg (150 mg x 2)-100 mg tablets,dose pack (7 sources) Start: 03-11-2024 End: 04-12-2024 Nirmatrelvir-Ritonavir (Paxlovid) 300 mg (150 mg x 2)-100 mg tablets,dose pack Discontinued 0 PO .COMPLEX March 11, 2024 1:00am April 12, 2024 2:44pm take TWO 150 mg tablets of nirmatrelvir with ONE 100 mg tablet of ritonavir twice daily for 5 days Start: 03-11-2024 End: 04-12-2024 Nirmatrelvir-Ritonavir (Paxl ovid) 300 mg (150 mg x 2)-100 mg tablets,dose pack Discontinued 0 PO .COMPLEX March 11, 2024 1:00am April 12, 2024 2:44pm take TWO 150 mg tablets of nirmatrelvir with ONE 100 mg tablet of ritonavir twice daily for 5 days omeprazole 20 mg delayed release oral capsule (20 sources) Proton Pump Inhibitor Start: 06-06-2020 End: 06-14-2024 take 1 capsule by mouth once daily before mealtime omeprazole (PRILOSEC) 20 mg capsule TAKE 1 CAPSULE BY MOUTH EVERY DAY BEFORE A MEAL 06/06/2020 06/14/2024 Discontinued (Course of therapy completed) Comment on above: TAKE 1 CAPSULE BY MO RUST EVERY DAY BEFORE A MEAL potassium chloride 20 meq extended release oral tablet (7 sources) Start: 02-09-2024 End: 02-26-2024 take 1 tablet by mouth once daily Potassium Chloride 20 mEq tablet extended release Discontinued 20 meq PO daily 02 02February 09, 2024 1:00am February 26, 2024 3:40pm tiZANidine 2 mg oral tablet (20 sources) Central alpha-2 Adrenergic Agonist Start: 06-02-2023 End: 02-09-2025 take 1 tablet by mouth once daily at bedtime tiZANidine (ZANAFLEX) 2 mg tablet Take 1 tablet by mouth daily at bedtime. 30 tablet 2 08/14/2024 11/11/2024 Discontinued Start: 11-11-2021 End: 05-02-2023 take 1 tablet [...] tablets by mouth at bedtime if needed traMADol hydrochloride 50 mg oral tablet (7 sources) Opioid Agonist Start: 07-09-2019 take 1 tablet by mouth every six [...] Date Documented Date Episodic/Chronic Acute myocardial infarction (11 sources) Myocardial infarction; Translations: [Non-ST elevation (NSTEMI) myocardial infarction] Onset: 01-13-2024 02-26-2024 Chronic Deficiency and other anemia (20 sources) Anemia of chronic disease; Translations: [Anemia in other chronic diseases classified elsewhere] Onset: 02-05-2024 01-20-2024 Chronic Deficiency and other anemia (1 source) Anemia in other chronic diseases classified elsewhere; Translations: [Anemia, chronic disease] Onset: 02-05-2024 Chronic Deficiency and other anemia (20 sources) Anemia; Translations: [Anemia, unspecified] 01-29-2024 Episodic Deficiency and other anemia (1 source) Deficiency and other anemia Diabetes mellitus without complication (8 sources) Type 2 diabetes mellitus; Translations: [Type 2 diabetes mellitus without complications] Onset: 01-13-2024 01-21-2024 Chronic Essential hypertension (20 sources) Hypertensive disorder; Translations: [Essential (primary) hypertension] Onset: 01-13-2024 02-26-2024 Chronic Headache; including migraine (1 source) Headache; including migraine; Translations: [Headache, unspecified] Onset: 05-26-2024 Other aftercare (3 sources) Taking high risk medication; Translations: [Other fpc (current) drug therapy] 06-14-2024 Episodic Other and ill-defined cerebrovascular disease (2 sources) Cerebrovascular disease; Translations: [Cerebrovascular disease, unspecified] 10-25-2024 Chronic Other and ill-defined cerebrovascular disease (1 source) Cerebrovascular disease, unspecified; Translations: [Cerebrovascular disease] Onset: 10-25-2024 Chronic Other connective tissue disease (1 source) Unspecified symptoms and signs involving the nervous system; Translations: [Unspecified symptoms and signs involving the nervous system] Onset: 08-28-2024 Episodic Other lower respiratory disease (14 sources) Dyspnea; Translations: [Shortness of breath] 01-29-2024 Episodic Other lower respiratory disease (7 sources) Cough; Translations: [Cough] 03-19-2024 Episodic Other nervous system disorders (2 sources) Anesthesia of skin; Translations: [Anesthesia of skin] Episodic Other nutritional; endocrine; and metabolic disorders (7 sources) Obese class I; Translations: [Class 1 obesity] 01-21-2024 Chronic Other nutritional; endocrine; and metabolic disorders (1 source) Hypomagnesemia; Translations: [Hypomagnesemia] Onset: 05-26-2024 Chronic Other upper respiratory infections (7 sources) Upper respiratory infection; Translations: [Acute upper respiratory infection, unspecified] 02-17-2024 Episodic Residual codes; unclassified (6 sources) Postmenopausal state; Translations: [Asymptomatic menopausal state] Episodic Rheumatoid arthritis and related disease (20 sources) Bilateral rheumatoid arthritis of hands; Translations: [Rheumatoid arthritis with rheumatoid factor of right hand without organ or systems involvement] Onset: 06-19-2020 Chronic Unclassified (1 source) Obesity, class 1; Translations: [Obesity, class 1] Onset: 01-13-2024 Viral infection (7 sources) Disease caused by 2019-nCoV; Translations: [COVID-19] 03-10-2024 Episodic Past or Other Problems Problem Classification Problem Date Documented Date Episodic/Chronic Cardiac dysrhythmias (15 sources) Sinus tachycardia; Translations: [Tachycardia, unspecified] Onset: 05-26-2024 02-17-2024 Episodic Deficiency and other anemia (2 sources) Anemia, unspecified; Translations: [Anemia, unspecified] Onset: 04-30-2024 Episodic Deficiency and other anemia (1 source) Iron deficiency anemia, unspecified; Translations: [Iron deficiency anemia, unspecified] Onset: 04-30-2024 Episodic Fluid and electrolyte disorders (8 sources) Hypokalemia; Translations: [Hypokalemia] Onset: 01-13-2024 02-17-2024 Episodic Nonspecific chest pain (20 sources) Chest pain; Translations: [Chest pain, unspecified] Onset: 05-26-2024 05-27-2024 Episodic Other aftercare (1 source) 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; Translations: [High risk medication use] Onset: 06-14-2024 Episodic Other circulatory disease (1 source) Personal history of transient ischemic attack (TIA), and cerebral infarction without residual deficits; Translations: [Personal history of transient ischemic attack (TIA), and cerebral infarction without residual deficits] Onset: 05-26-2024 Episodic Other infections; including parasitic (20 sources) Recurrent infectious disease; Translations: [Unspecified infectious disease] Onset: 02-05-2024 02-05-2024 Episodic Other infections; including parasitic (1 source) Unspecified infectious disease; Translations: [Recurrent infections] Onset: 02-05-2024 Episodic Other lower respiratory disease (1 source) Shortness of breath; Translations: [Shortness of breath] Onset: 03-11-2024 Episodic Other lower respiratory disease (1 source) Personal history of pneumonia (recurrent); Translations: [Personal history of pneumonia (recurrent)] Onset: 05-26-2024 Episodic Other screening for suspected conditions (not mental disorders or infectious disease) (20 sources) Raised cardiac enzyme or marker; Translations: [Other specified abnormal findings of blood chemistry] Onset: 05-26-2024 01-11-2024 Episodic Pneumonia (except that caused by tuberculosis or sexually transmitted disease) (1 source) Pneumonia, unspecified organism; Translations: [Pneumonia, unspecified organism] Onset: 01-13-2024 Episodic Residual codes; unclassified (1 source) Asymptomatic menopausal state; Translations: [Asymptomatic postmenopausal status] Onset: 06-14-2024 Episodic Spondylosis; intervertebral disc disorders; other back problems (20 sources) Chronic low back pain; Translations: [Low back pain] Onset: 06-19-2020 06-19-2020 Episodic Syncope (1 source) Syncope and collapse; Translations: [Syncope and collapse] Onset: 05-26-2024 Episodic Results Test Name Value Interpretation Reference Range Facility LELO BY IFA SCREENon 11-09-19 Nuclear Ab pattern (S) [Interp] Nuclear homogeneous Normal [facility] Comment on above: Order Comment: Matt patricio Type: BLOOD SPECIMEN Ordering Facility: [facility] Address: [address] [place] [address] Performed By: #### [id number] #### [facility] CLIA [id number] [address] [place] [address] [place] Nuclear Ab Ql (S) Positive Abnormal Negative [facility] Center Comment on above: Order Comment: Matt patricio Type: BLOOD SPECIMEN Ordering Facility: [facility] Address: [address] [place] [address] Result Comment: Anti -nuclear antibody test is used as an aid in diagnosis of systemic autoimmune diseases. Where positive and clinically warranted, follow-up using disease-specific testing is recommended. Low positive titers are not uncommon with advanced age, certain chronic infections, and malignancies among others. Test methodology: Indirect fluorescence immunoassay (IFA) using HEp-2 cells. 1:160 Performed By: #### 5 7021-8 #### [facility] CLIA [id number] 1 [place] [address] [place] BETA 2 GLYCOPROTEIN, IGGon 0 11-08-2024 Beta 2 glycoprotein 1 IgG IA Qn <9 Normal <20 [facility] Comment on above: Order Comment: aMtt patricio Type: BLOOD SPECIMEN Ordering Facility: [facility] Address: [address] [place] [address] Result Comment: <20 SGU Negative 20-80 SGU Low Positive >80 SGU High Positive These results were obtained with the [employer] QUANTA Lite B2 GPI IgG DEREK. B2 GPI IgG values obtained with different manufacturers' assay methods may not be used interchangeably. The magnitude of the reported IgG levels cannot be correlated to an endpoint titer. Performed By: #### 4 537-7 #### [facility] CLIA [id number] [address] [place] [address] BETA 2 GLYCOPROTEIN, IGMon 0 11-08-2024 Beta 2 glycoprotein 1 IgM IA Qn <9 Normal <20 [facility] Comment on above: Order Comment: Matt patricio Type: BLOOD SPECIMEN Ordering Facility: [facility] Address: [address] [place] [address] Result Comment: <20 SMU Negative 20-80 SMU Low Positive >80 [facility]U High positive These results were obtained with the [employer] QUANTA Lite B2 GPI IgM DEREK. B2 GPI IgM values obtained with different manufacturers' assay methods may not be used interchangeably. The magnitude of the reported IgM levels cannot be correlated to an endpoint titer. Performed By: #### 4 537-7 #### [facility] CLIA [id number] [address] [place] [address] BLOOD TB SCREENon 11-08-2024 M. tuberculosis tuberculin stim IFN-g Ql (Bld) Negative Normal [facility] Comment on above: Order Comment: Matt patricio Type: BLOOD SPECIMEN Ordering Facility: [facility] Address: [address] [place] [address] Performed By: #### 4 537-7 #### [facility] CLIA [id number] [address] [place] [address] [place] MITOGEN MINUS NIL >9.93 Normal >=0.50 [facility] Comment on above: Order Comment: Speci men Type: BLOOD SPECIMEN Ordering Facility: [facility] Address: [address] [place] [address] Performed By: #### 4 537-7 #### [facility] CLIA [id number] [address] [place] [address] [place] TB GAMMA INTERPRETATION Infection with M . tuberculosis complex is unlikely. If latent tuberculosis infection is highly suspected, a negative result does not rule out the infection. Specimens from immunocompromised patients and those <5 years of age may show false negative results. In case of a contact investigation, please repeat 8-12 weeks after a known exposure. Normal [facility] Comment on above: Order Comment: Speci men Type: BLOOD SPECIMEN Ordering Facility: [facility] Address: [address] [place] [address] Performed By: #### 4 537-7 #### [facility] CLIA [id number] [address] [place] [address] [place] TB NIL 0.07 IU/mL Normal <=8.00 [facility] Comment on above: Order Comment: Speci men Type: BLOOD SPECIMEN Ordering Facility: [facility] Address: [address] [place] [address] Performed By: #### 4 537-7 #### [facility] CLIA [id number] [address] [place] [address] [place] TB1 AG MINUS NIL 0.00 IU/mL Normal <0.35 [facility] Comment on above: Order Comment: Speci men Type: BLOOD SPECIMEN Ordering Facility: [facility] Address: [address] [place] [address] Performed By: #### 4 537-7 #### [facility] CLIA [id number] [address] [place] [address] [place] TB2 AG MINUS NIL <0.00 Normal <0.35 [facility] Comment on above: Order Comment: Speci men Type: BLOOD SPECIMEN Ordering Facility: [facility] Address: [address] [place] [address] Performed By: #### 4 537-7 #### [facility] CLIA [id number] [address] [place] [address] [place] C3 SerPl-mCncon 11-08-2024 Complement C3 [Mass/Vol] 156 mg/dL Normal 86-166 [facility] Comment on above: Order Comment: Speci men Type: BLOOD SPECIMEN Ordering Facility: [facility] Address: [address] [place] [address] Performed By: #### 4 485-9, 4498-2 #### [facility] CLIA [id number] [address] [place] [address] [place] C4 SerPl-mCncon 11-08-2024 Complement C4 [Mass/Vol] 15 mg/dL Normal 13-46 [facility] Comment on above: Order Comment: Speci men Type: BLOOD SPECIMEN Ordering Facility: [facility] Address: [address] [place] [address] Performed By: #### 4 485-9, 4498-2 #### [facility] CLIA [id number] [address] [place] [address] [place] CARDIOLIPIN IGG ABSon 2024 Cardiolipin IgG IA Qn (S) <9.0 Normal <15.0 [facility] Comment on above: Order Comment: Speci men Type: BLOOD SPECIMEN Ordering Facility: [facility] Address: [address] [place] [address] Result Comment: <15 GPL Negative 15-20 GPL Indeterminate >20 GPL Positive The following results were obtained with the [employer] QUANTA Lite VISHNU IgG III DEREK. Cardiolipin IgG values obtained with the different manufacturers' assay methods may not be used interchangeably. The magnitude of the reported IgG levels cannot be correlated to an endpoint titer. Performed By: #### 4 537-7 #### [facility] CLIA [id number] [address] CARDIOLIPIN IGM ABSon 2024 Cardiolipin IgM IA Qn (S) <9.0 Normal <12.5 [facility] Comment on above: Order Comment: Speci men Type: BLOOD SPECIMEN Ordering Facility: [facility] Address: [address] [place] [address] Result Comment: <12. 5 MPL Negative 12.5-20 MPL Indeterminate >20 MPL Positive The following results were obtained with the [employer] Lite VISHNU IgM III DEREK. Cardiolipin IgM values obtained with the different manufacturers' assay methods may not be used interchangeably. The magnitude of the reported IgM levels cannot be correlated to an endpoint titer. ??? Performed By: #### 4 537-7 #### [facility] CLIA [id number] [address] [place] [address] [place] [facility] CBC W Auto Differential pane l (Bld)on 11-08-2024 Basophils (Bld) [#/Vol] [facility] Basophils/100 WBC (Bld) 0.3 % [facility] Differential cell count method Nom (Bld) Auto [facility] Eosinophils (Bld) [#/Vol] 0.22 10*3/uL [facility] Eosinophils/100 WBC (Bld) 3.0 % [facility] Erythrocyte distribution width (RBC) [Ratio] 16.5 % High 11.5 - 15.0 % [facility] Hematocrit (Bld) [Volume fraction] 38.8 % 36.0 - 46.0 % [facility] Hemoglobin (Bld) [Mass/Vol] 12.5 g/dL 11.5 - 15.5 g/dL [facility] Immature granulocytes (Bld) [#/Vol] 0.03 10*3/uL [facility] Immature granulocytes/100 WBC (Bld) 0.4 % [facility] Interpretation and review of laboratory results Abnormal [facility] Lymphocytes (Bld) [#/Vol] 2.17 10*3/uL [facility] Lymphocytes/100 WBC (Bld) 29.3 % [facility] MCH (RBC) [Entitic mass] 27.8 pg 26.0 - 34.0 pg [facility] MCHC (RBC) [Mass/Vol] 32.2 g/dL 30.5 - 36.0 g/dL [facility] MCV (RBC) [Entitic vol] 86.4 fL 80.0 - 100.0 fL [facility] Monocytes (Bld) [#/Vol] 0.48 10*3/uL [facility] Monocytes/100 WBC (Bld) 6.5 % [facility] Neutrophils (Bld) [#/Vol] 4.48 10*3/uL [facility] Neutrophils/100 WBC (Bld) 60.5 % [facility] Nucleated RBC (Bld) [#/Vol] NINF [facility] Nucleated RBC/100 WBC (Bld) [Ratio] 0.0 % /100 WBC [facility] Platelet mean volume (Bld) [Entitic vol] 10.3 fL 9.0 - 12.7 fL [facility] Platelets (Bld) [#/Vol] 215 10*3/uL [facility] RBC (Bld) [#/Vol] 4.49 10*6/uL 3.90 - 5.2 0 m/uL [facility] WBC (Bld) [#/Vol] 7.40 10*3/uL [facility] Basophils (Bld) [#/Vol] 10*3/uL Normal <0.11 [facility] Comment on above: Order Comment: Speci men Type: BLOOD SPECIMEN Ordering Facility: [facility] Address: [address] [place] [address] Performed By: #### 5 7021-8 #### [facility] CLIA [id number] [address] Basophils/100 WBC (Bld) 0.3 % Normal [facility] Comment on above: Order Comment: Speci men Type: BLOOD SPECIMEN Ordering Facility: [facility] Address: [address] [place] [address] Performed By: #### 5 7021-8 #### [facility] CLIA [id number] [address] Differential cell count method Nom (Bld) Auto Normal [facility] Comment on above: Order Comment: Speci men Type: BLOOD SPECIMEN Ordering Facility: [facility] Address: [address] [place] [address] Performed By: #### 5 7021-8 #### [facility] CLIA [id number] [address] Eosinophils (Bld) [#/Vol] 0.22 10*3/uL Normal <0.46 [facility] Comment on above: Order Comment: Speci men Type: BLOOD SPECIMEN Ordering Facility: [facility] Address: [facility] [place] [address] Performed By: #### 5 7021-8 #### [facility] CLIA [id number] [address] Eosinophils/100 WBC (Bld) 3.0 % Normal [facility] Comment on above: Order Comment: Speci men Type: BLOOD SPECIMEN Ordering Facility: [facility] Address: [address] [place] [address] Performed By: #### 5 7021-8 #### [facility] CLIA [id number] [address] [place] Erythrocyte distribution width (RBC) [Ratio] 16.5 % High 11.5-15.0 [facility] Comment on above: Order Comment: Speci men Type: BLOOD SPECIMEN Ordering Facility: [facility] Address: [address] [place] [address] Performed By: #### 5 7021-8 #### [facility] CLIA [id number] [address] Hematocrit (Bld) [Volume fraction] 38.8 % Normal 36.0-46.0 [facility] Comment on above: Order Comment: Speci men Type: BLOOD SPECIMEN Ordering Facility: [facility] Address: [address] [place] [address] Performed By: #### 5 7021-8 #### [facility] CLIA [id number] [address] [place] Hemoglobin (Bld) [Mass/Vol] 12.5 g/dL Normal 11.5-15.5 [facility] Comment on above: Order Comment: Speci men Type: BLOOD SPECIMEN Ordering Facility: [facility] Address: [address] [place] [address] Performed By: #### 5 7021-8 #### [facility] CLIA [id number] [address] Immature granulocytes (Bld) [#/Vol] 0.03 10*3/uL Normal <0.10 [facility] Comment on above: Order Comment: Speci men Type: BLOOD SPECIMEN Ordering Facility: [facility] Address: [address] [place] [address] Performed By: #### 5 7021-8 #### [facility] CLIA [id number] [address] Immature granulocytes/100 WBC (Bld) 0.4 % Normal [facility] Comment on above: Order Comment: Speci men Type: BLOOD SPECIMEN Ordering Facility: [facility] Address: [address] [place] [address] Performed By: #### 5 7021-8 #### [facility] CLIA [id number] [address] Lymphocytes (Bld) [#/Vol] 2.17 10*3/uL Normal 1.00-4.00 [facility] Comment on above: Order Comment: Speci men Type: BLOOD SPECIMEN Ordering Facility: [facility] Address: [address] [place] [address] Performed By: #### 5 7021-8 #### [facility] CLIA [id number] [address] Lymphocytes/100 WBC (Bld) 29.3 % Normal [facility] Comment on above: Order Comment: Speci men Type: BLOOD SPECIMEN Ordering Facility: [facility] Address: [address] [place] [address] Performed By: #### 5 7021-8 #### [facility] CLIA [id number] 1 [place] [address] [place] MCH (RBC) [Entitic mass] 27.8 pg Normal 26.0-34.0 [facility] Comment on above: Order Comment: Speci men Type: BLOOD SPECIMEN Ordering Facility: [facility] Address: [address] [place] [address] Performed By: #### 5 7021-8 #### [facility] CLIA [id number] [address] OF [facility] MCHC (RBC) [Mass/Vol] 32.2 g/dL Normal 30.5-36.0 [facility] Comment on above: Order Comment: Speci men Type: BLOOD SPECIMEN Ordering Facility: [facility] Address: [address] [place] [address] Performed By: #### 5 7021-8 #### [facility] CLIA [id number] [address] MCV (RBC) [Entitic vol] 86.4 fL Normal 80.0-100.0 [facility] Comment on above: Order Comment: Speci men Type: BLOOD SPECIMEN Ordering Facility: [facility] Address: [address] [place] [address] Performed By: #### 5 7021-8 #### [facility] CLIA [id number] [address] Monocytes (Bld) [#/Vol] 0.48 10*3/uL Normal <0.87 [facility] Comment on above: Order Comment: Speci men Type: BLOOD SPECIMEN Ordering Facility: [facility] Address: [address] [place] [address] Performed By: #### 5 7021-8 #### [facility] CLIA [id number] [address] Monocytes/100 WBC (Bld) 6.5 % Normal [facility] Comment on above: Order Comment: Speci men Type: BLOOD SPECIMEN Ordering Facility: [facility] Address: [address] [place] [address] Performed By: #### 5 7021-8 #### [facility] CLIA [id number] 1 [place] [address] [place] Neutrophils (Bld) [#/Vol] 4.48 10*3/uL Normal 1.45-7.50 [facility] Comment on above: Order Comment: Speci men Type: BLOOD SPECIMEN Ordering Facility: [facility] Address: [address] [place] [address] Performed By: #### 5 7021-8 #### [facility] CLIA [id number] [address] [place] Neutrophils/100 WBC (Bld) 60.5 % Normal [facility] Comment on above: Order Comment: Speci men Type: BLOOD SPECIMEN Ordering Facility: [facility] Address: [address] [place] [address] Performed By: #### 5 7021-8 #### [facility] CLIA [id number] [address] [place] Nucleated RBC (Bld) [#/Vol] 10*3/uL Normal <0.01 [facility] Comment on above: Order Comment: Speci men Type: BLOOD SPECIMEN Ordering Facility: [facility] Address: [address] [place] [address] Performed By: #### 5 7021-8 #### [facility] CLIA [id number] [address] [place] Nucleated RBC/100 WBC (Bld) [Ratio] 0.0 /[address] [facility] Comment on above: Order Comment: Speci men Type: BLOOD SPECIMEN Ordering Facility: [facility] Address: [address] [place] [address] Performed By: #### 5 7021-8 #### [facility] CLIA [id number] [address] [place] Platelet mean volume (Bld) [Entitic vol] 10.3 fL Normal 9.0-12.7 [facility] Comment on above: Order Comment: Speci men Type: BLOOD SPECIMEN Ordering Facility: [facility] Address: [address] [place] [address] Performed By: #### 5 7021-8 #### [facility] CLIA [id number] [address] Platelets (Bld) [#/Vol] 215 10*3/uL Normal 150-400 [facility] Comment on above: Order Comment: Speci men Type: BLOOD SPECIMEN Ordering Facility: [facility] Address: [address] [place] [address] Performed By: #### 5 7021-8 #### [facility] CLIA [id number] [address] [place] RBC (Bld) [#/Vol] 4.49 10*6/uL Normal 3.90-5.20 [facility] Comment on above: Order Comment: Speci men Type: BLOOD SPECIMEN Ordering Facility: [facility] Address: [address] [place] [address] Performed By: #### 5 7021-8 #### [facility] CLIA [id number] [address] OF [facility] WBC (Bld) [#/Vol] 7.40 10*3/uL Normal 3.70-11.00 [facility] Comment on above: Order Comment: Speci men Type: BLOOD SPECIMEN Ordering Facility: [facility] Address: [address] [place] [address] Performed By: #### 5 7021-8 #### [facility] CLIA [id number] [address] OF [facility] Cardiolipin IgA Ser IA-aCnco n 11-08-2024 Cardiolipin IgA IA Qn (S) <9.0 Normal <12.0 [facility] Comment on above: Order Comment: Speci men Type: BLOOD SPECIMEN Ordering Facility: [facility] Address: [address] [place] [address] Result Comment: <12 APL Negative 12-20 APL Indeterminate >20 APL Positive The following results were obtained with the [employer] QUANTA Lite VISHNU IgA III DEREK. Cardiolipin IgA values obtained with the different manufacturers' assay methods may not be used interchangeably. The magnitude of the reported IgA levels cannot be correlated to an endpoint titer. Performed By: #### 5 076-5, SHAWN POLANCO, CLARITA, BLUEM #### [facility] CLIA [id number] [address] [place] [address] [facility] Comprehensive metabolic 2000 panelon 11-08-2024 Albumin [Mass/Vol] 4.3 g/dL 3.9 - 4.9 g/dL [facility] ALP [Catalytic activity/Vol] 76 U/L 34 - 123 U/L [facility] ALT With P-5'-P [Catalytic activity/Vol] 26 U/L 7 - 38 U/L [facility] Anion gap [Moles/Vol] 13 mmol/L 8 - 15 mmol/L [facility] AST With P-5'-P [Catalytic activity/Vol] 27 U/L 13 - 35 U/L [facility] Bilirubin [Mass/Vol] 0.4 mg/dL 0.2 - 1 .3 mg/dL [facility] Calcium [Mass/Vol] 8.9 mg/dL 8.5 - 10. 2 mg/dL [facility] Chloride [Moles/Vol] 104 mmol/L 98 - 10 7 mmol/L [facility] CO2 [Moles/Vol] 23 mmol/L 22 - 30 mmol/L [facility] Creatinine [Mass/Vol] 0.61 mg/dL 0.58 - 0.96 mg/dL [facility] GFR/1.73 sq M.predicted among non-blacks MDRD (S/P/Bld) [Vol rate/Area] 100 mL/min/{1.73_m2} - PINF [facility] Comment on above: Estimated Glomerular Filtration Rate [...] not accurately reflect actual GFR. Glucose [Mass/Vol] 252 mg/dL High 74 - 99 mg/dL [facility] Comment on above: The [place] Diab[employer] Association (ADA) provides guidance for [...] Standards of Medical Care in Diabetes 2016, [place] [employer]. Diabetes Care. 2016.39(Suppl 1). Interpretation and review of laboratory results Abnormal [facility] Potassium [Moles/Vol] 3.9 mmol/L 3.7 - 5.1 mmol/L [facility] Protein [Mass/Vol] 6.6 g/dL 6.3 - 8.0 g/dL [facility] Sodium [Moles/Vol] 140 mmol/L 136 - 144 mmol/L [facility] Urea nitrogen [Mass/Vol] 10 mg/dL 7 - 21 mg/dL [facility] Albumin [Mass/Vol] 4.3 g/dL Normal 3.9-4.9 [facility] Comment on above: Order Comment: Matt patricio Type: BLOOD SPECIMEN Ordering Facility: [facility] Address: [address] [place] [address] Performed By: #### 2 4323-8 #### [facility] CLIA [id number] [address] ALP [Catalytic activity/Vol] 76 U/L Normal 34-123 [facility] Comment on above: Order Comment: Matt patricio Type: BLOOD SPECIMEN Ordering Facility: [facility] Address: [address] [place] [address] Performed By: #### 2 4323-8 #### [facility] CLIA [id number] [address] ALT With P-5'-P [Catalytic activity/Vol] 26 U/L Normal 7-38 [facility] Comment on above: Order Comment: Latonyai sheng Type: BLOOD SPECIMEN Ordering Facility: [facility] Address: [address] [place] [address] Performed By: #### 2 4323-8 #### [facility] CLIA [id number] 1 [place] [address] [place] Anion gap [Moles/Vol] 13 mmol/L Normal 8-15 [facility] Comment on above: Order Comment: Speci men Type: BLOOD SPECIMEN Ordering Facility: [facility] Address: [address] [place] [address] Performed By: #### 2 4323-8 #### [facility] CLIA [id number] 1 [place] [address] [place] AST With P-5'-P [Catalytic activity/Vol] 27 U/L Normal 13-35 [facility] Comment on above: Order Comment: Speci men Type: BLOOD SPECIMEN Ordering Facility: [facility] Address: [address] [place] [address] Performed By: #### 2 4323-8 #### [facility] CLIA [id number] 1 [place] [address] [place] Bilirubin [Mass/Vol] 0.4 mg/dL Normal 0.2-1.3 [facility] Comment on above: Order Comment: Speci men Type: BLOOD SPECIMEN Ordering Facility: [facility] Address: [address] [place] [address] Performed By: #### 2 4323-8 #### [facility] CLIA [id number] [address] [place] Calcium [Mass/Vol] 8.9 mg/dL Normal 8.5-10.2 [facility] Comment on above: Order Comment: Speci men Type: BLOOD SPECIMEN Ordering Facility: [facility] Address: [address] [place] [address] Performed By: #### 2 4323-8 #### [facility] CLIA [id number] 1 [place] [address] [place] Chloride [Moles/Vol] 104 mmol/L Normal 98-107 [facility] Comment on above: Order Comment: Speci men Type: BLOOD SPECIMEN Ordering Facility: [facility] Address: [address] [place] [address] Performed By: #### 2 4323-8 #### [facility] CLIA [id number] [address] [place] CO2 [Moles/Vol] 23 mmol/L Normal 22-30 [facility] Comment on above: Order Comment: Speci men Type: BLOOD SPECIMEN Ordering Facility: [facility] Address: [address] [place] [address] Performed By: #### 2 4323-8 #### [facility] CLIA [id number] [address] STATES OF [facility] Creatinine [Mass/Vol] 0.61 mg/dL Normal 0.58-0.96 [facility] Comment on above: Order Comment: Speci men Type: BLOOD SPECIMEN Ordering Facility: [facility] Address: [address] [place] [address] Performed By: #### 2 4323-8 #### [facility] CLIA [id number] [address] OF [place] eGFRcr SerPlBld CKD-EPI 2020 100 mL/min/1.73m??? Normal >=60 [facility] Comment on above: Order Comment: Speci men Type: BLOOD SPECIMEN Ordering Facility: [facility] Address: [address] [place] [address] Result Comment: Glynn mated Glomerular Filtration Rate [...] GFR. Performed By: #### 2 4323-8 #### [facility] CLIA [id number] [address] [place] Glucose [Mass/Vol] 252 mg/dL High 74-99 [facility] Comment on above: Order Comment: Speci men Type: BLOOD SPECIMEN Ordering Facility: [facility] Address: [address] [place] [address] Result Comment: The [place] Diabetes Association (ADA) provides guidance for cutoff [...] Standards of Medical Care in Diabetes 2016, [place] [employer]. Diabetes Care. 2016.39(Suppl 1). Performed By: #### 2 4323-8 #### [facility] CLIA [id number] 1 [place] [address] [place] Potassium [Moles/Vol] 3.9 mmol/L Normal 3.7-5.1 [facility] Comment on above: Order Comment: Matt sheng Type: BLOOD SPECIMEN Ordering Facility: [facility] Address: [address] [place] [address] Performed By: #### 2 4323-8 #### [facility] CLIA [id number] 1 [place] [address] [place] Protein [Mass/Vol] 6.6 g/dL Normal 6.3-8.0 [facility] Comment on above: Order Comment: Matt men Type: BLOOD SPECIMEN Ordering Facility: [facility] Address: [address] [id number] Performed By: #### 2 4323-8 #### [facility] CLIA [id number] 1 [place] [address] [place] Sodium [Moles/Vol] 140 mmol/L Normal 136-144 [facility] Comment on above: Order Comment: Matt men Type: BLOOD SPECIMEN Ordering Facility: [facility] Address: [address] [id number] Performed By: #### 2 4323-8 #### [facility] CLIA [id number] [address] [place] Urea nitrogen [Mass/Vol] 10 mg/dL Normal 7-21 [facility] Comment on above: Order Comment: Latonyai sheng Type: BLOOD SPECIMEN Ordering Facility: [facility] Address: [facility] [place] [address] Performed By: #### 2 4323-8 #### [facility] CLIA [id number] [address] OF [facility] CNPNon 10-30-2024 CNPN Telephone (AGRHEUHWN ) JAYLIN CARROLL ([id number]) 1960 F Date Time Provider Department 10/30/24 ROBERT FARIAS During your visit today, we recorded the following information about you: Balbina Alford 10/30/2024 3:13 PM Signed Kirill Esquivel - PENDING [id number] [facility] Balbina Alford Multicultural Manager Balbina Alford 11/01/2024 9:28 AM Signed Kirill Esquivel - APPROVED [id number] 10.22.24 - 10.22.25 for 440 mg for 9 visits [facility] Balbina Alford Multicultural Manager Allergies As of Date: 10/30/2024 Noted Allergy Reaction DEMEROL (MEPERIDINE) 06/19/2020 14 - Other: See Comments Comments: Lowered blood pressure extremely low SULFA (SULFONAMIDE ANTIBIOTICS) 06/19/2020 8 - GI Upset Comments: Stomach pain severe Date Reviewed: 09/27/2024 Reviewed by: Melissa Tran, IAM - Fully Assessed Reason for Visit: INFLECTRA - APPROVED [Other] Cmt: Kirill Esquivel - APPROVED [id number] 10.22.24 - 10.22.25 for 440 mg for 9 visits [facility] Prescriptions as of 11/01/2024 - folic acid 1 mg tablet Take 1 tablet by mouth once daily. - methotrexate 2.5 mg tablet Take 6 tablets by mouth every Monday. - tiZANidine (ZANAFLEX) 2 mg tablet Take 1 tablet by mouth daily at bedtime. - hydrOXYchloroQUINE (PLAQUENIL) 200 mg tablet take 1 tablet by mouth once daily - metoprolol tartrate, short acting, (LOPRESSOR) 50 mg tablet Take 50 mg by mouth two times a day. - amLODIPine (NORVASC) 5 mg tablet Take 5 mg by mouth once daily. - ferrous sulfate (IRON) 325 [...] Take 10 mg by mouth once daily. Problem List As Of Date 10/30/2024 Noted Resolved Rheumatoid arthritis involving both hands with *06/19/2020 Chronic bilateral low back pain without sciatic*06/19/2020 Anemia, chronic disease [D63.8] 02/05/2024 Recurrent infections [B99.9] 02/05/2024 Encounter Status:Closed by BALBINA ALFORD on 10/30/[address] [facility] Cardiology Visit Reporton Cardiology Visit Report Normal [facility] 10-25-2024 [facility] Telephone ([employer]) JAYLIN CARROLL ([id number]) 1960 F Date Time Provider Department 10/25/24 FARIAS ROBERT SARAAntoinette During your visit today, we recorded the following information about you: Allergies As of Date: 10/25/2024 Noted Allergy Reaction DEMEROL (MEPERIDINE) 06/19/2020 14 - Other: See Comments Comments: Lowered blood pressure extremely low SULFA (SULFONAMIDE ANTIBIOTICS) 06/19/2020 8 - GI Upset Comments: Stomach pain severe Date Reviewed: 09/27/2024 Reviewed by: Melissa Tran RN - Fully Assessed Reason for Visit: Appointment [186] Prescriptions as of 10/25/2024 - folic acid 1 mg tablet Take 1 tablet by mouth once daily. - methotrexate 2.5 mg tablet Take 6 tablets by mouth every Monday. - tiZANidine (ZANAFLEX) 2 mg tablet Take 1 tablet by mouth daily at bedtime. - hydrOXYchloroQUINE (PLAQUENIL) 200 mg tablet take 1 tablet by mouth once daily - metoprolol tartrate, short acting, (LOPRESSOR) 50 mg tablet Take 50 mg by mouth two times a day. - amLODIPine (NORVASC) 5 mg tablet Take 5 mg by mouth once daily. - ferrous sulfate (IRON) 325 [...] Take 10 mg by mouth once daily. Problem List As Of Date 10/25/2024 Noted Resolved Rheumatoid arthritis involving both hands with *06/19/2020 Chronic bilateral low back pain without sciatic*06/19/2020 Anemia, chronic disease [D63.8] 02/05/2024 Recurrent infections [B99.9] 02/05/2024 Encounter Status:Closed by PAULY GOODWIN on 10/25/24 [facility] 10-22-2024 CNPN Telephone (AGRHEUHWN ) JAYLIN CARROLL ([id number]) 1960 F Date Time Provider Department 10/22/24 ROBERT FARIAS During your visit today, we recorded the following information about you: Balbina Alford 10/22/2024 12:39 PM Signed Kirill Esquivel - PENDING [id number] [facility]Portal Balbina Alford Multicultural Manager Allergies As of Date: 10/22/2024 Noted Allergy Reaction DEMEROL (MEPERIDINE) 06/19/2020 14 - Other: See Comments Comments: Lowered blood pressure extremely low SULFA (SULFONAMIDE ANTIBIOTICS) 06/19/2020 8 - GI Upset Comments: Stomach pain severe Date Reviewed: 09/27/2024 Reviewed by: Melissa Tran, IAM - Fully Assessed Reason for Visit: INFLECTRA - PENDING [Other] Cmt: Kirill Esquivel - PENDING [id number] [facility] Prescriptions as of 10/22/2024 - folic acid 1 mg tablet Take 1 tablet by mouth once daily. - methotrexate 2.5 mg tablet Take 6 tablets by mouth every Monday. - tiZANidine (ZANAFLEX) 2 mg tablet Take 1 tablet by mouth daily at bedtime. - hydrOXYchloroQUINE (PLAQUENIL) 200 mg tablet take 1 tablet by mouth once daily - metoprolol tartrate, short acting, (LOPRESSOR) 50 mg tablet Take 50 mg by mouth two times a day. - amLODIPine (NORVASC) 5 mg tablet Take 5 mg by mouth once daily. - hydrALAZINE (APRESOLINE) 25 mg tablet Take 25 mg by mouth three times a day. - TRELEGY ELLIPTA 100-62.5-25 mcg inhalation powder [...] Take 10 mg by mouth once daily. Problem List As Of Date 10/22/2024 Noted Resolved Rheumatoid arthritis involving both hands with *06/19/2020 Chronic bilateral low back pain without sciatic*06/19/2020 Anemia, chronic disease [D63.8] 02/05/2024 Recurrent infections [B99.9] 02/05/2024 Encounter Status:Closed by BALBINA ALFORD on 10/22/24 [facility] Magnetic resonance imaging r eportOrdered By: Kristie Parry on 08-24-2024 Study report [facility] Imaging Services [address] [place], [place] [id number] Brain without Contrast MR#: [id number] Acct: [id number] Name: JAYLIN CARROLL Rep #: [id number] : 1960 F 64 From: Malick Parry MD PCP: Dr. Paul Greco MD Status: REG CL I Study:Brain without Contrast Date of Exam: 08/23/24 Exam# [id number] Ordering Dr: Renate Greco MD PROCEDURE: BRAIN WITHOUT CONTRAST 08/23/2024 REASON FOR EXAM: STROKE LIKE SYMPTOMS TECHNIQUE: BRAIN WITHOUT CONTRAST Multiplanar and multisequence images were obtained. COMPARISON: 05-26-2024 CT FINDINGS: No intracerebral or extra-axial hematomas. No hyperacute or acute infarctions could be depicted. Right frontal subcortical patchy area of high T2/FLAIR signal. No perifocal edema or mass effect. Normal MRI appearance of the left cerebral hemisphere, cerebellum and brain stem. Normal appearance of the ventricular system. Prominent cortical sulci and extra-axial CSF spaces. No midline shift. Normal MRI appearance of the petrous temporal bones and cerebellopontine angles with no obvious masses. Normal MRI appearance of orbital structures, both globes, optic nerves, optic chiasm, optic tracts and optic radiations. Scanned paranasal sinuses are unremarkable. MRI/Brain without Contrast IMPRESSION: Right cerebral chronic ischemic patch. No acute infarcts, intracerebral or extra-axial hematomas. Reading Location: [place] [address] CC: Dr. Paul Greco MD ~ Diabetes Educator: Signed [facility] Brain without Contraston Brain without Contrast Normal [facility] CNPNon 08-12-2024 [facility] Telephone ([employer]) JAYLIN CARROLL ([id number]) 1960 F Date Time Provider Department 08/12/24 ROBERT FARIAS During your visit today, we recorded the following information about you: Brynn Fofana LPN 08/12/2024 3:03 PM Signed Isael from [facility] lab states the TB test will need reordered. The lab did draw the specimen but the tubes were under filled. ELIDIA Aceves Inderprit, MD 08/12/2024 7:35 PM Signed Ordered [...] Order(s):BLOOD TB SCREEN, INCUBATED [[id number]] Order #: [id number] FUTURE Prescriptions as of 08/12/2024 - methotrexate [...] Status:Closed by BRYNN FOFANA on 08/12/[address] [facility] CBC W Auto Differential pane l (Bld)on 08-09-2024 Basophils (Bld) [#/Vol] 0.06 10*3/uL [facility] Basophils/100 WBC (Bld) 0.8 % [facility] Differential cell count method Nom (Bld) Auto [facility] Eosinophils (Bld) [#/Vol] 0.25 10*3/uL [facility] Eosinophils/100 WBC (Bld) 3.4 % [facility] Erythrocyte distribution width (RBC) [Ratio] 17.2 % High 11.5 - 15.0 % [facility] Hematocrit (Bld) [Volume fraction] 38.6 % 36.0 - 46.0 % [facility] Hemoglobin (Bld) [Mass/Vol] 11.9 g/dL 11.5 - 15.5 g/dL [facility] Immature granulocytes (Bld) [#/Vol] 0.03 10*3/uL [facility] Immature granulocytes/100 WBC (Bld) 0.4 % [facility] Interpretation and review of laboratory results Abnormal [facility] Lymphocytes (Bld) [#/Vol] 2.41 10*3/uL [facility] Lymphocytes/100 WBC (Bld) 33 % [facility] MCH (RBC) [Entitic mass] 26.4 pg 26.0 - 34.0 pg [facility] MCHC (RBC) [Mass/Vol] 30.8 g/dL 30.5 - 36.0 g/dL [facility] MCV (RBC) [Entitic vol] 85.8 fL 80.0 - 100.0 fL [facility] Monocytes (Bld) [#/Vol] 0.55 10*3/uL [facility] Monocytes/100 WBC (Bld) 7.5 % [facility] Neutrophils (Bld) [#/Vol] 4 10*3/uL [facility] Neutrophils/100 WBC (Bld) 54.9 % [facility] Nucleated RBC (Bld) [#/Vol] NINF [facility] Nucleated RBC/100 WBC (Bld) [Ratio] 0 % /100 WBC [facility] Platelet mean volume (Bld) [Entitic vol] 11 fL 9.0 - 12.7 fL [facility] Platelets (Bld) [#/Vol] 187 10*3/uL [facility] RBC (Bld) [#/Vol] 4.5 10*6/uL 3.90 - 5.2 0 m/uL [facility] WBC (Bld) [#/Vol] 7.3 10*3/uL [facility] Basophils (Bld) [#/Vol] 0.06 10*3/uL Normal <0.11 [facility] Comment on above: Order Comment: Speci men Type: BLOOD SPECIMEN Ordering Facility: [facility] Address: [address] [place] [address] Performed By: #### 5 7021-8 #### [facility] CLIA [id number] [address] Basophils/100 WBC (Bld) 0.8 % Normal [facility] Comment on above: Order Comment: Speci men Type: BLOOD SPECIMEN Ordering Facility: [facility] Address: [address] [place] [address] Performed By: #### 5 7021-8 #### [facility] CLIA [id number] [address] OF [facility] Differential cell count method Nom (Bld) Auto Normal [facility] Comment on above: Order Comment: Speci men Type: BLOOD SPECIMEN Ordering Facility: [facility] Address: [address] [place] [address] Performed By: #### 5 7021-8 #### [facility] CLIA [id number] [address] [place] Eosinophils (Bld) [#/Vol] 0.25 10*3/uL Normal <0.46 [facility] Comment on above: Order Comment: Speci men Type: BLOOD SPECIMEN Ordering Facility: [facility] Address: [address] [place] [address] Performed By: #### 5 7021-8 #### [facility] CLIA [id number] [address] [place] Eosinophils/100 WBC (Bld) 3.4 % Normal [facility] Comment on above: Order Comment: Speci men Type: BLOOD SPECIMEN Ordering Facility: [facility] Address: [address] [place] [address] Performed By: #### 5 7021-8 #### [facility] CLIA [id number] [address] [place] Erythrocyte distribution width (RBC) [Ratio] 17.2 % High 11.5-15.0 [facility] Comment on above: Order Comment: Speci men Type: BLOOD SPECIMEN Ordering Facility: [facility] Address: [address] [place] [address] Performed By: #### 5 7021-8 #### [facility] CLIA [id number] [address] [place] Hematocrit (Bld) [Volume fraction] 38.6 % Normal 36.0-46.0 [facility] Comment on above: Order Comment: Speci men Type: BLOOD SPECIMEN Ordering Facility: [facility] Address: [address] [place] [address] Performed By: #### 5 7021-8 #### [facility] CLIA [id number] [address] [place] Hemoglobin (Bld) [Mass/Vol] 11.9 g/dL Normal 11.5-15.5 [facility] Comment on above: Order Comment: Speci men Type: BLOOD SPECIMEN Ordering Facility: [facility] Address: [address] [place] [address] Performed By: #### 5 7021-8 #### [facility] CLIA [id number] [address] Immature granulocytes (Bld) [#/Vol] 0.03 10*3/uL Normal <0.10 [facility] Comment on above: Order Comment: Speci men Type: BLOOD SPECIMEN Ordering Facility: [facility] Address: [address] [place] [address] Performed By: #### 5 7021-8 #### [facility] CLIA [id number] [address] Immature granulocytes/100 WBC (Bld) 0.4 % Normal [facility] Comment on above: Order Comment: Speci men Type: BLOOD SPECIMEN Ordering Facility: [facility] Address: [address] [place] [address] Performed By: #### 5 7021-8 #### [facility] CLIA [id number] [address] Lymphocytes (Bld) [#/Vol] 2.41 10*3/uL Normal 1.00-4.00 [facility] Comment on above: Order Comment: Speci men Type: BLOOD SPECIMEN Ordering Facility: [facility] Address: [address] [place] [address] Performed By: #### 5 7021-8 #### [facility] CLIA [id number] [address] Lymphocytes/100 WBC (Bld) 33.0 % Normal [facility] Comment on above: Order Comment: Speci men Type: BLOOD SPECIMEN Ordering Facility: [facility] Address: [address] [place] [address] Performed By: #### 5 7021-8 #### [facility] CLIA [id number] [address] [place] MCH (RBC) [Entitic mass] 26.4 pg Normal 26.0-34.0 [facility] Comment on above: Order Comment: Speci men Type: BLOOD SPECIMEN Ordering Facility: [facility] Address: [address] [place] [address] Performed By: #### 5 7021-8 #### [facility] CLIA [id number] [address] MCHC (RBC) [Mass/Vol] 30.8 g/dL Normal 30.5-36.0 [facility] Comment on above: Order Comment: Speci men Type: BLOOD SPECIMEN Ordering Facility: [facility] Address: [address] [place] [address] Performed By: #### 5 7021-8 #### [facility] CLIA [id number] [address] MCV (RBC) [Entitic vol] 85.8 fL Normal 80.0-100.0 [facility] Comment on above: Order Comment: Speci men Type: BLOOD SPECIMEN Ordering Facility: [facility] Address: [address] [place] [address] Performed By: #### 5 7021-8 #### [facility] CLIA [id number] [address] Monocytes (Bld) [#/Vol] 0.55 10*3/uL Normal <0.87 [facility] Comment on above: Order Comment: Speci men Type: BLOOD SPECIMEN Ordering Facility: [facility] Address: [address] [place] [address] Performed By: #### 5 7021-8 #### [facility] CLIA [id number] [address] Monocytes/100 WBC (Bld) 7.5 % Normal [facility] Comment on above: Order Comment: Speci men Type: BLOOD SPECIMEN Ordering Facility: [facility] Address: [address] [place] [address] Performed By: #### 5 7021-8 #### [facility] CLIA [id number] [address] [place] Neutrophils (Bld) [#/Vol] 4.00 10*3/uL Normal 1.45-7.50 [facility] Comment on above: Order Comment: Speci men Type: BLOOD SPECIMEN Ordering Facility: [facility] Address: [address] [place] [address] Performed By: #### 5 7021-8 #### [facility] CLIA [id number] [address] [place] Neutrophils/100 WBC (Bld) 54.9 % Normal [facility] Comment on above: Order Comment: Speci men Type: BLOOD SPECIMEN Ordering Facility: [facility] Address: [address] [place] [address] Performed By: #### 5 7021-8 #### [facility] CLIA [id number] [address] [place] Nucleated RBC (Bld) [#/Vol] 10*3/uL Normal <0.01 [facility] Comment on above: Order Comment: Speci men Type: BLOOD SPECIMEN Ordering Facility: [facility] Address: [address] [place] [address] Performed By: #### 5 7021-8 #### [facility] CLIA [id number] [address] Nucleated RBC/100 WBC (Bld) [Ratio] 0.0 /[address] [facility] Comment on above: Order Comment: Speci men Type: BLOOD SPECIMEN Ordering Facility: [facility] Address: [address] [place] [address] Performed By: #### 5 7021-8 #### [facility] CLIA [id number] [address] [place] Platelet mean volume (Bld) [Entitic vol] 11.0 fL Normal 9.0-12.7 [facility] Comment on above: Order Comment: Speci men Type: BLOOD SPECIMEN Ordering Facility: [facility] Address: [address] [place] [address] Performed By: #### 5 7021-8 #### [facility] CLIA [id number] [address] Platelets (Bld) [#/Vol] 187 10*3/uL Normal 150-400 [facility] Comment on above: Order Comment: Speci men Type: BLOOD SPECIMEN Ordering Facility: [facility] Address: [address] [place] [address] Performed By: #### 5 7021-8 #### [facility] CLIA [id number] [address] RBC (Bld) [#/Vol] 4.50 10*6/uL Normal 3.90-5.20 [facility] Comment on above: Order Comment: Speci men Type: BLOOD SPECIMEN Ordering Facility: [facility] Address: [address] [place] [address] Performed By: #### 5 7021-8 #### [facility] CLIA [id number] [address] WBC (Bld) [#/Vol] 7.30 10*3/uL Normal 3.70-11.00 [facility] Comment on above: Order Comment: Speci men Type: BLOOD SPECIMEN Ordering Facility: [facility] Address: [address] [place] [address] Performed By: #### 5 7021-8 #### [facility] CLIA [id number] [address] [place] Comprehensive metabolic 2000 panelon 08-09-2024 Albumin [Mass/Vol] 4.2 g/dL 3.9 - 4.9 g/dL [facility] ALP [Catalytic activity/Vol] 66 U/L 34 - 123 U/L [facility] ALT With P-5'-P [Catalytic activity/Vol] 24 U/L 7 - 38 U/L [facility] Anion gap [Moles/Vol] 13 mmol/L 8 - 15 mmol/L [facility] AST With P-5'-P [Catalytic activity/Vol] 16 U/L 13 - 35 U/L [facility] Bilirubin [Mass/Vol] 0.3 mg/dL 0.2 - 1 .3 mg/dL [facility] Calcium [Mass/Vol] 9.2 mg/dL 8.5 - 10. 2 mg/dL [facility] Chloride [Moles/Vol] 105 mmol/L 98 - 10 7 mmol/L [facility] CO2 [Moles/Vol] 23 mmol/L 22 - 30 mmol/L [facility] Creatinine [Mass/Vol] 0.59 mg/dL 0.58 - 0.96 mg/dL [facility] GFR/1.73 sq M.predicted among non-blacks MDRD (S/P/Bld) [Vol rate/Area] 101 mL/min/{1.73_m2} - PINF [facility] Comment on above: Estimated Glomerular Filtration Rate [...] 182 mg/dL High 74 - 99 mg/dL [facility] Comment on above: The [place] [employer] (ADA) provides guidance for [...] Standards of Medical Care in Diabetes 2016, [place] [employer]. Diabetes Care. 2016.39(Suppl 1). Interpretation and review of laboratory results Abnormal [facility] Potassium [Moles/Vol] 3.5 mmol/L Low 3.7 - 5.1 mmol/L [facility] Protein [Mass/Vol] 6.5 g/dL 6.3 - 8.0 g/dL [facility] Sodium [Moles/Vol] 141 mmol/L 136 - 144 mmol/L [facility] Urea nitrogen [Mass/Vol] 8 mg/dL 7 - 21 mg/dL [facility] Albumin [Mass/Vol] 4.2 g/dL Normal 3.9-4.9 [facility] Comment on above: Order Comment: Speci men Type: BLOOD SPECIMEN Ordering Facility: [facility] Address: [address] [place] [address] Performed By: #### 4 537-7 #### [facility] CLIA [id number] [address] [place] [address] [place] ALP [Catalytic activity/Vol] 66 U/L Normal 34-123 [facility] Comment on above: Order Comment: Speci men Type: BLOOD SPECIMEN Ordering Facility: [facility] Address: [address] [place] [address] Performed By: #### 4 537-7 #### [facility] [facility] CLIA [id number] [address] [place] [address] [place] ALT With P-5'-P [Catalytic activity/Vol] 24 U/L Normal 7-38 [facility] Comment on above: Order Comment: Speci men Type: BLOOD SPECIMEN Ordering Facility: [facility] Address: [address] [place] [address] Performed By: #### 4 537-7 #### [facility] CLIA [id number] [address] [place] [address] [place] Anion gap [Moles/Vol] 13 mmol/L Normal 8-15 [facility] Comment on above: Order Comment: Speci men Type: BLOOD SPECIMEN Ordering Facility: [facility] Address: [address] [place] [address] Performed By: #### 4 537-7 #### [facility] CLIA [id number] [address] [place] [address] [place] AST With P-5'-P [Catalytic activity/Vol] 16 U/L Normal 13-35 [facility] Comment on above: Order Comment: Speci men Type: BLOOD SPECIMEN Ordering Facility: [facility] Address: [address] [place] [address] Performed By: #### 4 537-7 #### [facility] CLIA [id number] [address] [place] [address] [place] Bilirubin [Mass/Vol] 0.3 mg/dL Normal 0.2-1.3 [facility] Comment on above: Order Comment: Speci men Type: BLOOD SPECIMEN Ordering Facility: [facility] Address: [address] [place] [address] Performed By: #### 4 537-7 #### [facility] CLIA [id number] [address] [place] [address] [place] Calcium [Mass/Vol] 9.2 mg/dL Normal 8.5-10.2 [facility] Comment on above: Order Comment: Speci men Type: BLOOD SPECIMEN Ordering Facility: [facility] Address: [address] [place] [address] Performed By: #### 4 537-7 #### [facility] CLIA [id number] [address] [place] [address] [place] Chloride [Moles/Vol] 105 mmol/L Normal 98-107 [facility] Comment on above: Order Comment: Speci men Type: BLOOD SPECIMEN Ordering Facility: [facility] Address: [address] [place] [address] Performed By: #### 4 537-7 #### [facility] CLIA [id number] [address] [place] [address] [place] CO2 [Moles/Vol] 23 mmol/L Normal 22-30 [facility] Comment on above: Order Comment: Speci men Type: BLOOD SPECIMEN Ordering Facility: [facility] Address: [address] [place] [address] Performed By: #### 4 537-7 #### [facility] CLIA [id number] [address] [place] [address] [place] Creatinine [Mass/Vol] 0.59 mg/dL Normal 0.58-0.96 [facility] Comment on above: Order Comment: Matt patricio Type: BLOOD SPECIMEN Ordering Facility: [facility] Address: [address] [place] [address] Performed By: #### 4 537-7 #### [facility] CLIA [id number] [address] [place] [address] [place] [facility] Creatinine and Glomerular filtration rate.predicted panel (S/P/Bld) 101 mL/min/1.73m??? Normal >=60 [facility] Comment on above: Order Comment: Matt patricio Type: BLOOD SPECIMEN Ordering Facility: [facility] Address: [address] [place] [address] Result Comment: Glynn mated Glomerular Filtration Rate [...] accurately reflect actual GFR. Performed By: #### 4 537-7 #### [facility] CLIA [id number] [address] [place] [address] [place] Glucose [Mass/Vol] 182 mg/dL High 74-99 [facility] Comment on above: Order Comment: Matt patricio Type: BLOOD SPECIMEN Ordering Facility: [facility] Address: [address] [place] [address] Result Comment: The [place] [employer] (ADA) provides guidance for cutoff [...] Standards of Medical Care in Diabetes 2016, [place] [employer]. Diabetes Care. 2016.39(Suppl 1). Performed By: #### 4 537-7 #### [facility] CLIA [id number] [address] [place] [address] [place] Potassium [Moles/Vol] 3.5 mmol/L Low 3.7-5.1 [facility] Comment on above: Order Comment: Speci men Type: BLOOD SPECIMEN Ordering Facility: [facility] Address: [address] [place] [address] Performed By: #### 4 537-7 #### [facility] CLIA [id number] [address] [place], [place] [id number] [place] Protein [Mass/Vol] 6.5 g/dL Normal 6.3-8.0 [facility] Comment on above: Order Comment: Speci men Type: BLOOD SPECIMEN Ordering Facility: [facility] Address: [address] [place] [address] Performed By: #### 4 537-7 #### [facility] CLIA [id number] [address] [place], [place] [id number] [place] Sodium [Moles/Vol] 141 mmol/L Normal 136-144 [facility] Comment on above: Order Comment: Speci men Type: BLOOD SPECIMEN Ordering Facility: [facility] Address: [address] [place], [place] [address] Performed By: #### 4 537-7 #### [facility] CLIA [id number] [address] [place], [place] [id number] [place] Urea nitrogen [Mass/Vol] 8 mg/dL Normal 7-21 [facility] Comment on above: Order Comment: Speci men Type: BLOOD SPECIMEN Ordering Facility: [facility] Address: [address] [place], [place] [id number] Performed By: #### 4 537-7 #### [facility] CLIA [id number] [address] [place], [place] [address] [place] [address] [place] ESR Westergren method (Bld) [Velocity]on 08-09-2024 ESR (Bld) [Velocity] 5 mm/h Normal 0-20 [facility] Comment on above: Order Comment: Speci men Type: BLOOD SPECIMEN Ordering Facility: [facility] Address: [address] [place] [address] Performed By: #### 4 537-7 #### [facility] CLIA [id number] [address] [place] [address] [place] Anion gap in Serum or Plasma Ordered By: Ambreen Delaney on 08-06-2024 Anion gap [Moles/Vol] 11 mmol/L 5-15 [facility] BUN/creatinine ratioOrdered By: Ambreen Delaney on 08-06-2024 Urea nitrogen/Creatinine [Mass ratio] 20.3 mg/mg High 10-20 [facility] Basic Metabolic Profile (BMP )on 08-06-2024 BUN/CRE 20.3 RATIO High 10-20 [facility] Comment on above: Performed By: #### L 500.2500 ####[facility] [address] [place], [address] Calcium [Mass/Vol] 9.2 mg/dL Normal 7.6-11.0 [facility] Comment on above: Performed By: #### L 500.2500 ####[facility] [address] [place], [address] Chloride [Moles/Vol] 106 mmol/L Normal 98-108 [facility] Comment on above: Performed By: #### L 500.2500 ####[facility] [address] [facility] [address] [place], [address] CO2 [Moles/Vol] 23.8 mmol/L Normal 21.0-32.0 [facility] Comment on above: Performed By: #### L 500.2500 ####[facility] [address] [place], [address] Creatinine [Mass/Vol] 0.67 mg/dL Low 0.70-1.20 [facility] Comment on above: Performed By: #### L 500.2500 ####[facility] [address] [place], [address] GAP 11 Normal 5-15 [facility] Comment on above: Performed By: #### L 500.2500 ####[facility] [address] [place], [address] GFR/1.73 sq M.predicted among non-blacks MDRD (S/P/Bld) [Vol rate/Area] 98 mL/min/{1.73_m2} Normal >60 [facility] Comment on above: Result Comment: mL/m in/1.73m2 CKD-EPI Creatinine Equation (2020) Performed By: #### L 500.2500 ####[facility] [address] [place], [address] Glucose [Mass/Vol] 231 mg/dL High 70-99 [facility] Comment on above: Performed By: #### L 500.2500 ####[facility] [address] [place], [address] Potassium [Moles/Vol] 3.5 mmol/L Normal 3.3-5.1 [facility] Comment on above: Performed By: #### L 500.2500 ####[facility] [address] [place], [address] Sodium [Moles/Vol] 141 mmol/L Normal 133-145 [facility] Comment on above: Performed By: #### L 500.2500 ####[facility] [address] [place], [address] Urea nitrogen [Mass/Vol] 14 mg/dL Normal 4-19 [facility] Comment on above: Performed By: #### L 500.2500 ####[facility] [address] [place], [address] BUN Normal 4-19 [facility] Comment on above: Result Comment: DUP ORDER Performed By: #### L 500.2500 ####[facility] [address] [place], [address] BUN/CRE Normal 10-20 [facility] Comment on above: Result Comment: DUP ORDER Performed By: #### L 500.2500 ####[facility] [address] [place], [address] Calcium Normal 7.6-11.0 [facility] Comment on above: Result Comment: DUP ORDER Performed By: #### L 500.2500 ####[facility] [address] [place], [address] CL Normal 98-108 [facility] Comment on above: Result Comment: DUP ORDER Performed By: #### L 500.2500 ####[facility] [address] [place], [address] CO2 Normal 21.0-32.0 [facility] Comment on above: Result Comment: DUP ORDER Performed By: #### L 500.2500 ####[facility] [address] [place], [address] CREAT,SERUM Normal 0.70-1.20 [facility] Comment on above: Result Comment: DUP ORDER Performed By: #### L 500.2500 ####[facility] [address] [place], [address] eGFR Normal >60 [facility] Comment on above: Result Comment: DUP ORDER Performed By: #### L 500.2500 ####[facility] [address] [place], [address] GAP Normal 5-15 [facility] Comment on above: Result Comment: DUP ORDER Performed By: #### L 500.2500 ####[facility] [address] [place], [address] GLU Normal 70-99 [facility] Comment on above: Result Comment: DUP ORDER Performed By: #### L 500.2500 ####[facility] [address] [place], [address] Potassium Normal 3.3-5.1 [facility] Comment on above: Result Comment: DUP ORDER Performed By: #### L 500.2500 ####[facility] [address] [place], [address] Basic Metabolic Profile (BMP) Normal 133-145 [facility] Comment on above: Result Comment: DUP ORDER Performed By: #### L 500.2500 ####[facility] [address] [place], [address] Carbon dioxide, total [Moles /volume] in Central venous bloodOrdered By: Ambreen Delaney on 08-06-2024 CO2 [Moles/Vol] 23.8 mmol/L 21.0-32.0 [facility] Chloride assayOrdered By: Abran Delaney on 08-06-2024 Chloride [Moles/Vol] 106 mmol/L 98-108 [facility] Glomerular filtration rate ( GFR) estimation/1.73 sq m using serum, plasma, or whole bOrdered By: Ambreen Delaney on 08-06-2024 GFR/1.73 sq M.predicted among non-blacks MDRD (S/P/Bld) [Vol rate/Area] 98 mL/min/{1.73_m2} >60 [facility] Comment on above: mL/min/1.73m2 CKD-EP I Creatinine Equation (2020) Potassium measurement (mass/ volume)Ordered By: Ambreen Delaney on 08-06-2024 Potassium (Unsp spec) [Mass/Vol] 3.5 mmol/L 3.3-5.1 [facility] Serum creatinine measurement (mass/volume)Ordered By: Ambreen eDlaney on 08-06-2024 Creatinine [Mass/Vol] 0.67 mg/dL Low 0.70-1.20 [facility] Serum glucose measurement (m ass/volume)Ordered By: Ambreen Delaney on 08-06-2024 Glucose [Mass/Vol] 231 mg/dL High 70-99 [facility] Serum or plasma calcium aminta urement (mass/volume)Ordered By: Ambreen Delaney on 08-06-2024 Calcium [Mass/Vol] 9.2 mg/dL 7.6-11.0 [facility] Serum or plasma urea nitroge n measurement (mass/volume)Ordered By: Ambreen Delaney on 08-06-2024 Urea nitrogen [Mass/Vol] 14 mg/dL 4-19 [facility] Sodium levelOrdered By: Ximena Delaney on 08-06-2024 Sodium [Moles/Vol] 141 mmol/L 133-145 [facility] Cardiology Visit Reporton Cardiology Visit Report Normal [facility] L499.0043on 07-26-2024 Trop T High Sen Normal <=14 [facility] Comment on above: Result Comment: Canc elled via OM: Order cancelled - Patient discharged Performed By: #### L 499.0043 ####[facility] [address] [place], [address] 12 Lead EKGon 07-25-2024 12 Lead EKG Normal [facility] 12 Lead EKG Normal [facility] Absolute lymphocyte countOrd ered By: Ranjit Garces on 07-25-2024 Lymphocytes Auto (Unsp spec) [#/Vol] 2.48 10*3/uL 0.83-4.51 [facility] Absolute neutrophil countOrd ered By: Ranjitannabella Garces on 07-25-2024 Neutrophils (Bld) [#/Vol] 4.0 10*3/uL 2.0-7.7 [facility] Anion gap in Serum or Plasma Ordered By: Ranjit Garces on 07-25-2024 Anion gap [Moles/Vol] 15 mmol/L 5-15 [facility] Automated lymphocyte count a s percentage of total leukocytesOrdered By: Ranjitannabella Garces on 07-25-2024 Lymphocytes/100 WBC Auto (Unsp spec) 34.6 % 19-41 [facility] BUN/creatinine ratioOrdered By: Ranjit Garces on 07-25-2024 Urea nitrogen/Creatinine [Mass ratio] 13.0 mg/mg - [facility] Basic Metabolic Profile (BMP )on 07-25-2024 BUN/CRE 13.0 RATIO Normal 12-23 [facility] Comment on above: Performed By: #### L 500.2500, L501.4021, L100.0100 ####[facility] [address] [place], [address] Calcium [Mass/Vol] 9.3 mg/dL Normal 7.6-11.0 [facility] Comment on above: Performed By: #### L 500.2500, L501.4021, L100.0100 ####[facility] [address] [place], [address] Chloride [Moles/Vol] 106 mmol/L Normal 98-108 [facility] Comment on above: Performed By: #### L 500.2500, L501.4021, L100.0100 ####[facility] [address] [place], [address] CO2 [Moles/Vol] 21.1 mmol/L Normal 21.0-32.0 [facility] Comment on above: Performed By: #### L 500.2500, L501.4021, L100.0100 ####[facility] [address] [place], [address] Creatinine [Mass/Vol] 0.66 mg/dL Low 0.70-1.20 [facility] Comment on above: Performed By: #### L 500.2500, L501.4021, L100.0100 ####[facility] [address] [place], [address] ECRCL 88.89 ml/min Normal 50-250 [facility] Comment on above: Performed By: #### L 500.2500, L501.4021, L100.0100 ####[facility] [address] [place], [address] GAP 15 Normal 5-15 [facility] Comment on above: Performed By: #### L 500.2500, L501.4021, L100.0100 ####[facility] [address] [place], [address] GFR/1.73 sq M.predicted among non-blacks MDRD (S/P/Bld) [Vol rate/Area] 98 mL/min/{1.73_m2} Normal >60 [facility] Comment on above: Result Comment: mL/m in/1.73m2 CKD-EPI Creatinine Equation (2020) Performed By: #### L 500.2500, L501.4021, L100.0100 ####[facility] [address] [place], [address] Glucose [Mass/Vol] 182 mg/dL High 70-99 [facility] Comment on above: Performed By: #### L 500.2500, L501.4021, L100.0100 ####[facility] [address] [place], [address] Potassium [Moles/Vol] 3.2 mmol/L Low 3.3-5.1 [facility] Comment on above: Performed By: #### L 500.2500, L501.4021, L100.0100 ####[facility] [address] [place], [address] Sodium [Moles/Vol] 142 mmol/L Normal 133-145 [facility] Comment on above: Performed By: #### L 500.2500, L501.4021, L100.0100 ####[facility] [address] [place], [address] Urea nitrogen [Mass/Vol] 9 mg/dL Normal 4-19 [facility] Comment on above: Performed By: #### L 500.2500, L501.4021, L100.0100 ####[facility] [address] [place], [address] Basophil percentageOrdered B y: Ranjit Garces on 07-25-2024 Basophils/100 WBC (Bld) 0.3 % 0-1 [facility] CBC W/Diff, Automatedon 07-05 Absolute Lymph 2.48 X10 3/uL Normal 0.83-4.51 [facility] Comment on above: Performed By: #### L 500.2500, L501.4021, L100.0100 ####[facility] [address] [place], [address] Absolute Neut 4.0 X10 3/uL Normal 2.0-7.7 [facility] Comment on above: Performed By: #### L 500.2500, L501.4021, L100.0100 ####[facility] [address] [place], [address] Basophils/100 WBC (Bld) 0.3 % Normal 0-1 [facility] Comment on above: Performed By: #### L 500.2500, L501.4021, L100.0100 ####[facility] [address] [place], [address] Eosinophils/100 WBC (Bld) 2.4 % Normal 0-5 [facility] Comment on above: Performed By: #### L 500.2500, L501.4021, L100.0100 ####[facility] [address] [place], [address] Erythrocyte distribution width (RBC) [Ratio] 17.1 % High 11.6-14.6 [facility] Comment on above: Performed By: #### L 500.2500, L501.4021, L100.0100 ####[facility] [address] [place], [address] Hematocrit (Bld) [Volume fraction] 38.8 % Normal 37-47 [facility] Comment on above: Performed By: #### L 500.2500, L501.4021, L100.0100 ####[facility] [address] [place], [address] Hemoglobin (Bld) [Mass/Vol] 12.5 g/dL Normal 12.0-15.0 [facility] Comment on above: Performed By: #### L 500.2500, L501.4021, L100.0100 ####[facility] [address] [place], [address] IG% 0.400 Normal 0.0-0.9 [facility] Comment on above: Result Comment: IG% - Immature Granulocytes (promyelocytes, myelocytes andmetamyelocytes) > 1% indicates that a LEFT SHIFT is Present. Performed By: #### L 500.2500, L501.4021, L100.0100 ####[facility] [address] [place], [address] Lymphocytes/100 WBC (Bld) 34.6 % Normal 19-41 [facility] Comment on above: Performed By: #### L 500.2500, L501.4021, L100.0100 ####[facility] [address] [place], [address] MCH (RBC) [Entitic mass] 27.0 pg Normal 27.0-32.0 [facility] Comment on above: Performed By: #### L 500.2500, L501.4021, L100.0100 ####[facility] [address] [place], [address] MCHC (RBC) [Mass/Vol] 32.2 g/dL Normal 32-36 [facility] Comment on above: Performed By: #### L 500.2500, L501.4021, L100.0100 ####[facility] [address] [place], [address] MCV (RBC) [Entitic vol] 83.8 fL Normal 81-99 [facility] Comment on above: Performed By: #### L 500.2500, L501.4021, L100.0100 ####[facility] [address] [place], [address] Monocytes/100 WBC (Bld) 6.6 % Normal 0-10 [facility] Comment on above: Performed By: #### L 500.2500, L501.4021, L100.0100 ####[facility] [address] [place], [address] Neutrophils/100 WBC (Bld) 55.7 % Normal 47-70 [facility] Comment on above: Performed By: #### L 500.2500, L501.4021, L100.0100 ####[facility] [address] [place], [address] Nucleated RBC (Bld) [#/Vol] 0 10*3/uL Normal 0-5 [facility] Comment on above: Performed By: #### L 500.2500, L501.4021, L100.0100 ####[facility] [address] [place], [address] Platelet mean volume (Bld) [Entitic vol] 10.2 fL Normal 6.2-12.0 [facility] Comment on above: Performed By: #### L 500.2500, L501.4021, L100.0100 ####[facility] [address] [place], [address] Platelets (Bld) [#/Vol] 192 10*3/uL Normal 150-450 [facility] Comment on above: Performed By: #### L 500.2500, L501.4021, L100.0100 ####[facility] [address] [place], [address] RBC (Bld) [#/Vol] 4.63 10*6/uL Normal 4.2-5.4 [facility] Comment on above: Performed By: #### L 500.2500, L501.4021, L100.0100 ####[facility] [address] [place], [address] RDW SD 51.9 fl High 35.1-43.9 [facility] Comment on above: Performed By: #### L 500.2500, L501.4021, L100.0100 ####[facility] [address] [place], [address] WBC (Bld) [#/Vol] 7.2 10*3/uL Normal 4.4-11.0 [facility] Comment on above: Performed By: #### L 500.2500, L501.4021, L100.0100 ####[facility] [address] [place], [address] Carbon dioxide, total [Moles /volume] in Central venous bloodOrdered By: Ranjit Garces on 07-25-2024 CO2 [Moles/Vol] 21.1 mmol/L 21.0-32.0 [facility] Chest 1 View (Portable)on Chest 1 View (Portable) Normal [facility] Chloride assayOrdered By: Ug o Garces on 07-25-2024 Chloride [Moles/Vol] 106 mmol/L 98-108 [facility] Emergency Department Summary on 07-25-2024 Emergency Department Summary Normal [facility] Eosinophil percentageOrdered By: Ranjit Garces on 07-25-2024 Eosinophils/100 WBC (Bld) 2.4 % 0-5 [facility] Erythrocyte distribution wid th ratioOrdered By: Ranjit Garces on 07-25-2024 Erythrocyte distribution width (RBC) [Ratio] 17.1 % High 11.6-14.6 [facility] Erythrocyte distribution wid th standard deviationOrdered By: Ranjit Garces on 07-25-2024 Erythrocyte distribution width (RBC) [Ratio] 51.9 fl High 35.1-43.9 [facility] Glomerular filtration rate ( GFR) estimation/1.73 sq m using serum, plasma, or whole bOrdered By: Ranjit Garces on 07-25-2024 GFR/1.73 sq M.predicted among non-blacks MDRD (S/P/Bld) [Vol rate/Area] 98 mL/min/{1.73_m2} >60 [facility] Comment on above: mL/min/1.73m2 CKD-EP I Creatinine Equation (2020) Hematocrit Auto (Bld) [Volum e fraction]Ordered By: Ranjit Garces on 07-25-2024 Hematocrit (Bld) [Volume fraction] 38.8 % 37-47 [facility] Hemoglobin measurementOrdere d By: Ranjitannabella Garces on 07-25-2024 Hemoglobin (Bld) [Mass/Vol] 12.5 g/dL 12.0-15.0 [facility] Immature granulocytes/100 WB C Auto (Bld)Ordered By: Ranjitannabella Garces on 07-25-2024 Immature granulocytes/100 WBC (Bld) 0.400 % 0.0-0.9 [facility] Comment on above: IG% - Immature Granu locytes (promyelocytes, myelocytes and metamyelocytes) > 1% indicates that a LEFT SHIFT is Present. L499.0042on 07-25-2024 Trop T High Sen < 6 Normal <=14 [facility] Comment on above: Performed By: #### L 499.0042 ####[facility] [address] [place], [address] L501.4021on 07-25-2024 Trop T High Sen < 6 Normal <=14 [facility] Comment on above: Performed By: #### L 500.2500, L501.4021, L100.0100 ####[facility] [address] [place], [address] MCV (mean corpuscular volume ) determinationOrdered By: Ranjit Garces on 07-25-2024 MCV (RBC) [Entitic vol] 83.8 fL 81-99 [facility] Mean corpuscular hemoglobin (MCH) determinationOrdered By: Ranjit Garces on 07-25-2024 MCH (RBC) [Entitic mass] 27.0 pg 27.0-32.0 [facility] Mean corpuscular hemoglobin concentration (MCHC) determinationOrdered By: Ranjit Garces on 07-25-2024 MCHC (RBC) [Mass/Vol] 32.2 g/dL 32-36 [facility] Mean platelet volume determi nationOrdered By: Ranjit Garces on 07-25-2024 Platelet mean volume (Bld) [Entitic vol] 10.2 fL 6.2-12.0 [facility] Monocyte percentageOrdered B y: Ranjit Garces on 07-25-2024 Monocytes/100 WBC (Bld) 6.6 % 0-10 [facility] Neutrophil percentageOrdered By: Ranjit Garces on 07-25-2024 Neutrophils/100 WBC (Bld) 55.7 % 47-70 [facility] Nucleated red blood cell per centageOrdered By: Ranjit Garces on 07-25-2024 Nucleated RBC/100 WBC (Bld) [Ratio] 0 % 0-5 [facility] Platelet countOrdered By: Chan Garces on 07-25-2024 Platelets (Bld) [#/Vol] 192 10*3/uL 150-450 [facility] Potassium measurement (mass/ volume)Ordered By: Ranjit Garces on 07-25-2024 Potassium (Unsp spec) [Mass/Vol] 3.2 mmol/L Low 3.3-5.1 [facility] RBC Auto (Bld) [#/Vol]Ordere d By: Ranjit Garces on 07-25-2024 RBC (Bld) [#/Vol] 4.63 10*6/uL 4.2-5.4 [facility] Serum creatinine measurement (mass/volume)Ordered By: Ranjit Garces on 07-25-2024 Creatinine [Mass/Vol] 0.66 mg/dL Low 0.70-1.20 [facility] Serum glucose measurement (m ass/volume)Ordered By: Ranjit Garces on 07-25-2024 Glucose [Mass/Vol] 182 mg/dL High 70-99 [facility] Serum or plasma calcium aminta urement (mass/volume)Ordered By: Ranjit Garces on 07-25-2024 Calcium [Mass/Vol] 9.3 mg/dL 7.6-11.0 [facility] Serum or plasma urea nitroge n measurement (mass/volume)Ordered By: Ranjit Garces on 07-25-2024 Urea nitrogen [Mass/Vol] 9 mg/dL 4-19 [facility] Sodium levelOrdered By: Ranjit Garces on 07-25-2024 Sodium [Moles/Vol] 142 mmol/L 133-145 [facility] Troponin T.cardiac [Mass/vol ume] in Serum or Plasma by High sensitivity methodOrdered By: Ranjit Garces on 07-25-2024 Troponin T.cardiac High sensitivity method [Mass/Vol] < 6 ng/L <14 [facility] Troponin T.cardiac High sensitivity method [Mass/Vol] < 6 ng/L <14 [facility] Comment on above: Delta: 7 on 07/03/24 -1850 White blood cell (WBC) count Ordered By: Ranjit Garces on 07-25-2024 WBC (Bld) [#/Vol] 7.2 10*3/uL 4.4-11.0 [facility] JAYLIN CARROLL ([id number]) 1960 F Date Time Provider Department 07/18/24 ROBERT FARIAS During your visit today, we recorded the following information about you: Balbina Alford 07/30/2024 9:18 AM Addendum Kirill Contreras - PENDING [id number] [employer] Balbina Alford, Multicultural Manager Balbina Alford 07/30/2024 9:19 AM Signed Yue Esquivelw - PENDING [id number] [employer] Renflexsukumar DENIED - Need to try and fail [employer] or [employer] Balbina Alford Multicultural Manager Balbina Alford 08/07/2024 9:39 AM Signed Kirill Esquivel - APPROVED [id number] 07.30.24 - 10.28.24 for 3 [facility] Blabina Alford Multicultural Manager Allergies As of Date: 07/18/2024 Noted Allergy Reaction DEMEROL (MEPERIDINE) 06/19/2020 14 - Other: See Comments Comments: Lowered blood pressure extremely low SULFA (SULFONAMIDE ANTIBIOTICS) 06/19/2020 8 - GI Upset Comments: Stomach pain severe Date Reviewed: 06/14/2024 Reviewed by: Ashley Bedoya MA - Fully Assessed Reason for Visit: INFLTERESA - APPROVED [Other] Cmt: Kirill Esquivel - APPROVED [id number] 07.30.24 - 10.28.24 for 3 visits [facility] Renflexsukumar [place] - DENIED [id number] [facility] Prescriptions as of 08/07/2024 - methotrexate 2.5 [...] Status:Closed by BALBINA ALFORD on 07/18/[address] [facility] 12 Lead EKGon 07-03-2024 12 Lead EKG Normal [facility] Absolute lymphocyte countOrd ered By: Corey De Jesus on 07-03-2024 Lymphocytes Auto (Unsp spec) [#/Vol] 2.82 10*3/uL 0.83-4.51 [facility] Absolute neutrophil countOrd ered By: Corey De Jesus on 07-03-2024 Neutrophils (Bld) [#/Vol] 3.2 10*3/uL 2.0-7.7 [facility] Activated partial thrombopla stin time (aPTT) in platelet poor plasma by coagulation aOrdered By: Corey De Jesus on 07-03-2024 aPTT Coag (PPP) [Time] 28.5 s 24.1-36.2 [facility] Anion gap in Serum or Plasma Ordered By: Corey De Jesus on 07-03-2024 Anion gap [Moles/Vol] 14 mmol/L 07-18 [facility] Automated lymphocyte count a s percentage of total leukocytesOrdered By: Corey De Jesus on 07-03-2024 Lymphocytes/100 WBC Auto (Unsp spec) 41.7 % High 19-41 [facility] BUN/creatinine ratioOrdered By: Corey De Jesus on 07-03-2024 Urea nitrogen/Creatinine [Mass ratio] 28.0 mg/mg High 10-20 [facility] Basic Metabolic Profile (BMP )on 07-03-2024 BUN/CRE 28.0 RATIO High [address] [place] [address] Comment on above: Performed By: #### L 500.2500, L501.4021, L300.4310, L300.8000, L100.0100, L300.3900 ####[facility] [address] [place], [address] Calcium [Mass/Vol] 9.3 mg/dL Normal 7.6-11.0 [facility] Comment on above: Performed By: #### L 500.2500, L501.4021, L300.4310, L300.8000, L100.0100, L300.3900 ####[facility] [address] [place], [address] Chloride [Moles/Vol] 108 mmol/L Normal 98-108 [facility] Comment on above: Performed By: #### L 500.2500, L501.4021, L300.4310, L300.8000, L100.0100, L300.3900 ####[facility] [address] [place], [address] CO2 [Moles/Vol] 21.2 mmol/L Normal 21.0-32.0 [facility] Comment on above: Performed By: #### L 500.2500, L501.4021, L300.4310, L300.8000, L100.0100, L300.3900 ####[facility] [address] [place], [address] Creatinine [Mass/Vol] 0.59 mg/dL Low 0.70-1.20 [facility] Comment on above: Performed By: #### L 500.2500, L501.4021, L300.4310, L300.8000, L100.0100, L300.3900 ####[facility] [address] [place], [address] ECRCL 99.75 ml/min Normal 50-250 [facility] Comment on above: Performed By: #### L 500.2500, L501.4021, L300.4310, L300.8000, L100.0100, L300.3900 ####[facility] [address] [place], [address] GAP 14 Normal 5-15 [facility] Comment on above: Performed By: #### L 500.2500, L501.4021, L300.4310, L300.8000, L100.0100, L300.3900 ####[facility] [address] [place], [address] GFR/1.73 sq M.predicted among non-blacks MDRD (S/P/Bld) [Vol rate/Area] 101 mL/min/{1.73_m2} Normal >60 [facility] Comment on above: Result Comment: mL/m in/1.73m2 CKD-EPI Creatinine Equation (2020) Performed By: #### L 500.2500, L501.4021, L300.4310, L300.8000, L100.0100, L300.3900 ####[facility] [address] [place], [address] Glucose [Mass/Vol] 129 mg/dL High 70-99 [facility] Comment on above: Performed By: #### L 500.2500, L501.4021, L300.4310, L300.8000, L100.0100, L300.3900 ####[facility] [address] [place], [address] Potassium [Moles/Vol] 3.3 mmol/L Normal 3.3-5.1 [facility] Comment on above: Performed By: #### L 500.2500, L501.4021, L300.4310, L300.8000, L100.0100, L300.3900 ####[facility] [address] [place], [address] Sodium [Moles/Vol] 142 mmol/L Normal 133-145 [facility] Comment on above: Performed By: #### L 500.2500, L501.4021, L300.4310, L300.8000, L100.0100, L300.3900 ####[facility] [address] [place], [address] Urea nitrogen [Mass/Vol] 17 mg/dL Normal 4-19 [facility] Comment on above: Performed By: #### L 500.2500, L501.4021, L300.4310, L300.8000, L100.0100, L300.3900 ####[facility] [address] [place], [address] Basophil percentageOrdered B y: Corey De Jesus on 07-03-2024 Basophils/100 WBC (Bld) 0.4 % 0-1 [facility] CBC W/Diff, Automatedon 06-06-2024 Absolute Lymph 2.82 X10 3/uL Normal 0.83-4.51 [facility] Comment on above: Performed By: #### L 500.2500, L501.4021, L300.4310, L300.8000, L100.0100, L300.3900 ####[facility] [address] [place], [address] Absolute Neut 3.2 X10 3/uL Normal 2.0-7.7 [facility] Comment on above: Performed By: #### L 500.2500, L501.4021, L300.4310, L300.8000, L100.0100, L300.3900 ####[facility] [address] [place], [address] Basophils/100 WBC (Bld) 0.4 % Normal 0-1 [facility] Comment on above: Performed By: #### L 500.2500, L501.4021, L300.4310, L300.8000, L100.0100, L300.3900 ####[facility] [address] [place], [address] Eosinophils/100 WBC (Bld) 2.4 % Normal 0-5 [facility] Comment on above: Performed By: #### L 500.2500, L501.4021, L300.4310, L300.8000, L100.0100, L300.3900 ####[facility] [address] [place], [address] Erythrocyte distribution width (RBC) [Ratio] 18.0 % High 11.6-14.6 [facility] Comment on above: Performed By: #### L 500.2500, L501.4021, L300.4310, L300.8000, L100.0100, L300.3900 ####[facility] [address] [place], [address] Hematocrit (Bld) [Volume fraction] 38.5 % Normal 37-47 [facility] Comment on above: Performed By: #### L 500.2500, L501.4021, L300.4310, L300.8000, L100.0100, L300.3900 ####[facility] [address] [place], [address] Hemoglobin (Bld) [Mass/Vol] 12.5 g/dL Normal 12.0-15.0 [facility] Comment on above: Performed By: #### L 500.2500, L501.4021, L300.4310, L300.8000, L100.0100, L300.3900 ####[facility] [address] [place], [address] IG% 0.300 Normal 0.0-0.9 [facility] Comment on above: Result Comment: IG% - Immature Granulocytes (promyelocytes, myelocytes andmetamyelocytes) > 1% indicates that a LEFT SHIFT is Present. Performed By: #### L 500.2500, L501.4021, L300.4310, L300.8000, L100.0100, L300.3900 ####[facility] [address] [place], [address] Lymphocytes/100 WBC (Bld) 41.7 % High 19-41 [facility] Comment on above: Performed By: #### L 500.2500, L501.4021, L300.4310, L300.8000, L100.0100, L300.3900 ####[facility] [address] [place], [address] MCH (RBC) [Entitic mass] 27.1 pg Normal 27.0-32.0 [facility] Comment on above: Performed By: #### L 500.2500, L501.4021, L300.4310, L300.8000, L100.0100, L300.3900 ####[facility] [address] [place], [address] MCHC (RBC) [Mass/Vol] 32.5 g/dL Normal 32-36 [facility] Comment on above: Performed By: #### L 500.2500, L501.4021, L300.4310, L300.8000, L100.0100, L300.3900 ####[facility] [address] [place], [address] MCV (RBC) [Entitic vol] 83.5 fL Normal 81-99 [facility] Comment on above: Performed By: #### L 500.2500, L501.4021, L300.4310, L300.8000, L100.0100, L300.3900 ####[facility] [address] [place], [address] Monocytes/100 WBC (Bld) 7.5 % Normal 0-10 [facility] Comment on above: Performed By: #### L 500.2500, L501.4021, L300.4310, L300.8000, L100.0100, L300.3900 ####[facility] [address] [place], [address] Neutrophils/100 WBC (Bld) 47.7 % Normal 47-70 [facility] Comment on above: Performed By: #### L 500.2500, L501.4021, L300.4310, L300.8000, L100.0100, L300.3900 ####[facility] [address] [place], [address] Nucleated RBC (Bld) [#/Vol] 0 10*3/uL Normal 0-5 [facility] Comment on above: Performed By: #### L 500.2500, L501.4021, L300.4310, L300.8000, L100.0100, L300.3900 ####[facility] [address] [place], [address] Platelet mean volume (Bld) [Entitic vol] 9.9 fL Normal 6.2-12.0 [facility] Comment on above: Performed By: #### L 500.2500, L501.4021, L300.4310, L300.8000, L100.0100, L300.3900 ####[facility] [address] [place], [address] Platelets (Bld) [#/Vol] 208 10*3/uL Normal 150-450 [facility] Comment on above: Performed By: #### L 500.2500, L501.4021, L300.4310, L300.8000, L100.0100, L300.3900 ####[facility] [address] [place], [address] RBC (Bld) [#/Vol] 4.61 10*6/uL Normal 4.2-5.4 [facility] Comment on above: Performed By: #### L 500.2500, L501.4021, L300.4310, L300.8000, L100.0100, L300.3900 ####[facility] [address] [place], [address] RDW SD 53.6 fl High 35.1-43.9 [facility] Comment on above: Performed By: #### L 500.2500, L501.4021, L300.4310, L300.8000, L100.0100, L300.3900 ####[facility] [address] [place], [address] WBC (Bld) [#/Vol] 6.8 10*3/uL Normal 4.4-11.0 [facility] Comment on above: Performed By: #### L 500.2500, L501.4021, L300.4310, L300.8000, L100.0100, L300.3900 ####[facility] [address] [place], [address] Carbon dioxide, total [Moles /volume] in Central venous bloodOrdered By: Corey De Jesus on 07-03-2024 CO2 [Moles/Vol] 21.2 mmol/L 21.0-32.0 [facility] Chest 1 View (Portable)on Chest 1 View (Portable) Normal [facility] Chloride assayOrdered By: Trever De Jesus on 07-03-2024 Chloride [Moles/Vol] 108 mmol/L 98-108 [facility] D-Dimer Quantitative (DVT/PE )on 07-03-2024 D-DIMER QUANT < 0.27 Low 0.27-0.49 [facility] Comment on above: Result Comment: NORM AL D-Dimer level (<0.50) indicates no DVT or PE. Performed By: #### L 500.2500, L501.4021, L300.4310, L300.8000, L100.0100, L300.3900 ####[facility] [address] [place], [address] Emergency Department Summary on 07-03-2024 Emergency Department Summary Normal [facility] Eosinophil percentageOrdered By: Corey De Jesus on 07-03-2024 Eosinophils/100 WBC (Bld) 2.4 % 0-5 [facility] Erythrocyte distribution wid th ratioOrdered By: Corey De Jesus on 07-03-2024 Erythrocyte distribution width (RBC) [Ratio] 18.0 % High 11.6-14.6 [facility] Erythrocyte distribution wid th standard deviationOrdered By: Corey De Jesus on 07-03-2024 Erythrocyte distribution width (RBC) [Ratio] 53.6 fl High 35.1-43.9 [facility] Glomerular filtration rate ( GFR) estimation/1.73 sq m using serum, plasma, or whole bOrdered By: Coreycaio De Jesus on 07-03-2024 GFR/1.73 sq M.predicted among non-blacks MDRD (S/P/Bld) [Vol rate/Area] 101 mL/min/{1.73_m2} >60 [facility] Comment on above: mL/min/1.73m2 CKD-EP I Creatinine Equation (2020) Hematocrit Auto (Bld) [Volum e fraction]Ordered By: Corey De Jesus on 07-03-2024 Hematocrit (Bld) [Volume fraction] 38.5 % 37-47 [facility] Hemoglobin measurementOrdere d By: Corey De Jesus on 07-03-2024 Hemoglobin (Bld) [Mass/Vol] 12.5 g/dL 12.0-15.0 [facility] Immature granulocytes/100 WB C Auto (Bld)Ordered By: Corey De Jesus on 07-03-2024 Immature granulocytes/100 WBC (Bld) 0.300 % 0.0-0.9 [facility] Comment on above: IG% - Immature Granu locytes (promyelocytes, myelocytes and metamyelocytes) > 1% indicates that a LEFT SHIFT is Present. International normalized rat io (INR) calculationOrdered By: Corey De Jesus on 07-03-2024 INR Coag (Bld) [Relative time] 0.9 {INR} [facility] L499.0042on 07-03-2024 Trop T High Sen < 6 Normal <=14 [facility] Comment on above: Performed By: #### L 499.0042 ####[facility] [address] [place], [address] L499.0043on 07-03-2024 Trop T High Sen Normal <=14 [facility] Comment on above: Result Comment: Canc elled via OM: Order cancelled - Patient discharged Performed By: #### L 499.0043 ####[facility] [address] [place], [address] L501.4021on 07-03-2024 Trop T High Sen 7 ng/L Normal <=14 [facility] Comment on above: Performed By: #### L 500.2500, L501.4021, L300.4310, L300.8000, L100.0100, L300.3900 ####[facility] [address] [place], [address] MCV (mean corpuscular volume ) determinationOrdered By: Corey De Jesus on 07-03-2024 MCV (RBC) [Entitic vol] 83.5 fL 81-99 [facility] Mean corpuscular hemoglobin (MCH) determinationOrdered By: Corey De Jesus on 07-03-2024 MCH (RBC) [Entitic mass] 27.1 pg 27.0-32.0 [facility] Mean corpuscular hemoglobin concentration (MCHC) determinationOrdered By: Corey De Jesus on 07-03-2024 MCHC (RBC) [Mass/Vol] 32.5 g/dL 32-36 [facility] Mean platelet volume determi nationOrdered By: Corey De Jesus on 07-03-2024 Platelet mean volume (Bld) [Entitic vol] 9.9 fL 6.2-12.0 [facility] Monocyte percentageOrdered B y: Corey De Jesus on 07-03-2024 Monocytes/100 WBC (Bld) 7.5 % 0-10 [facility] Neutrophil percentageOrdered By: Corey De Jesus on 07-03-2024 Neutrophils/100 WBC (Bld) 47.7 % 47-70 [facility] Nucleated red blood cell per centageOrdered By: Corey De Jesus on 07-03-2024 Nucleated RBC/100 WBC (Bld) [Ratio] 0 % 0-5 [facility] Partial Thromboplast Timeon 07-03-2024 aPTT Coag (Bld) [Time] 28.5 s Normal 24.1-36.2 [facility] Comment on above: Performed By: #### L 500.2500, L501.4021, L300.4310, L300.8000, L100.0100, L300.3900 ####[facility] [address] [place], [address] Platelet countOrdered By: Trever De Jesus on 07-03-2024 Platelets (Bld) [#/Vol] 208 10*3/uL 150-450 [facility] Potassium measurement (mass/ volume)Ordered By: Corey De Jesus on 07-03-2024 Potassium (Unsp spec) [Mass/Vol] 3.3 mmol/L 3.3-5.1 [facility] Prothrombin Time w/INRon INR Coag (PPP) [Relative time] 0.9 {INR} Normal [facility] Comment on above: Performed By: #### L 500.2500, L501.4021, L300.4310, L300.8000, L100.0100, L300.3900 ####[facility] [address] [place], [address] PT Coag (PPP) [Time] 12.4 s Normal 11.7-14.9 [facility] Comment on above: Performed By: #### L 500.2500, L501.4021, L300.4310, L300.8000, L100.0100, L300.3900 ####[facility] [address] [place], [address] Prothrombin timeOrdered By: Corey De Jesus on 07-03-2024 PT Coag (PPP) [Time] 12.4 s 11.7-14.9 [facility] RBC Auto (Bld) [#/Vol]Ordere d By: Corey De Jesus on 07-03-2024 RBC (Bld) [#/Vol] 4.61 10*6/uL 4.2-5.4 [facility] Serum creatinine measurement (mass/volume)Ordered By: Corey De Jesus on 07-03-2024 Creatinine [Mass/Vol] 0.59 mg/dL Low 0.70-1.20 [facility] Serum glucose measurement (m ass/volume)Ordered By: Corey De Jesus on 07-03-2024 Glucose [Mass/Vol] 129 mg/dL High 70-99 [facility] Serum or plasma calcium aminta urement (mass/volume)Ordered By: Corey De Jesus on 07-03-2024 Calcium [Mass/Vol] 9.3 mg/dL 7.6-11.0 [facility] Serum or plasma urea nitroge n measurement (mass/volume)Ordered By: Corey De Jesus on 07-03-2024 Urea nitrogen [Mass/Vol] 17 mg/dL 4-19 [facility] Sodium levelOrdered By: Corey De Jesus on 07-03-2024 Sodium [Moles/Vol] 142 mmol/L 133-145 [facility] Troponin T.cardiac [Mass/vol ume] in Serum or Plasma by High sensitivity methodOrdered By: Corey De Jesus on 07-03-2024 Troponin T.cardiac High sensitivity method [Mass/Vol] < 6 ng/L <14 [facility] Troponin T.cardiac High sensitivity method [Mass/Vol] 7 ng/L <14 [facility] White blood cell (WBC) count Ordered By: Coery De Jesus on 07-03-2024 WBC (Bld) [#/Vol] 6.8 10*3/uL 4.4-11.0 [facility] CNOVon 06-14-2024 CNOV Office Visit (MACRINA ) JAYLIN CARROLL ([id number]) 1960 F Date Time Provider Department 06/14/24 2:40 PM ROBERT FARIAS During your visit today, we recorded the following information about you: Temperature Pulse Blood pressure Weight 98.2 degrees 84/minute 139/85 81.9 kg Height 1.549 m Robert Farias MD 06/14/2024 5:16 PM Signed This note was created using [employer]. Subjective Jaylin Carroll is a 63 year [...] ?C (98.2 ?F) Ht 154.9 cm (5' 1") Wt 81.9 kg (180 lb 9.6 oz) [...] Plan First visit 06/19/2020 ( moved from [place] ) RA and wants treatment for that 06/24 ( Q 4 months )) [place] coronary artery disease cannot use NSAID.. RA [...] 2nd 3 rd MCP ) Dr. Mendes [place] [facility] [place] [facility] : 01/2020 last [...] NSAID ) (( 01/2024 NSAID stopped as [place] ) (( no GI bleed, stool blood [...] skin testing (more content not included)... Normal [facility] Cardiology Visit Reporton Cardiology Visit Report Normal [facility] Gastroenterology Visit Repor ton 05-29-2024 Gastroenterology Visit Report Normal [facility] CNPMissy [facility]-20[facility] JAYLIN CARROLL ([id number]) 1960 F Date Time Provider Department 05/28/24 ROBERT FARIAS During your visit today, we recorded the following information about you: Balbina Alford 05/28/2024 10:11 AM Signed Kirill Contreras - PENDING [id number] [facility] Balbina Alford, Multicultural Manager Rocío Balbina 05/30/2024 10:50 AM Signed Kirill Contreras - ALREADY AUTH ON FILE [id number] 08.04.23 - 08.02.24 [facility] Balbina Alford, Multicultural Manager Allergies As of Date: 05/28/2024 Noted Allergy Reaction DEMEROL (MEPERIDINE) 06/19/2020 14 - Other: See Comments Comments: Lowered blood pressure extremely low SULFA (SULFONAMIDE ANTIBIOTICS) 06/19/2020 8 - GI Upset Comments: Stomach pain severe Date Reviewed: 04/11/2024 Reviewed by: Ryan Vasquez RN - Fully Assessed Reason for Visit: ANTONETTEFLEXSUKUMAR - APPROVED [Other] Cmt: Kirill Contreras - ALREADY AUTH ON FILE [id number] 08.04.23 - 08.02.24 [facility] Prescriptions as of 05/30/2024 - hydrOXYchloroQUINE (PLAQUENIL) [...] Status:Closed by BALBINA ALFORD on 05/28/[address] [facility] Lipid Profileon 05-28-2024 CHOL Normal <=200 [facility] Comment on above: Result Comment: Canc elled via OM: Order cancelled - Patient discharged Performed By: #### L 500.4100 ####[facility] [address] [place], [address] CHOL:HDL Normal [facility] Comment on above: Result Comment: Canc elled via OM: Order cancelled - Patient discharged Performed By: #### L 500.4100 ####[facility] [address] [place], [address] CLDL Normal [facility] Comment on above: Result Comment: Canc elled via OM: Order cancelled - Patient discharged Performed By: #### L 500.4100 ####[facility] [address] [place], [address] HDL Normal [facility] Comment on above: Result Comment: Canc elled via OM: Order cancelled - Patient discharged Performed By: #### L 500.4100 ####[facility] [address] [place], [address] TRIG Normal [facility] Comment on above: Result Comment: Canc elled via OM: Order cancelled - Patient discharged Performed By: #### L 500.4100 ####[facility] [address] [place], [address] VLDL Normal 5-40 [facility] Comment on above: Result Comment: Canc elled via OM: Order cancelled - Patient discharged Performed By: #### L 500.4100 ####[facility] [address] [place], [place], [address] 12 Lead EKGon 05-27-2024 12 Lead EKG Normal [facility] Absolute lymphocyte countOrd ered By: [facility] Hubert on 05-27-2024 Lymphocytes Auto (Unsp spec) [#/Vol] 2.50 10*3/uL 0.83-4.51 [facility] Absolute neutrophil countOrd ered By: [facility] Hubert on 05-27-2024 Neutrophils (Bld) [#/Vol] 3.6 10*3/uL 2.0-7.7 [facility] Anion gap in Serum or Plasma Ordered By: Natalie Hubert on 05-27-2024 Anion gap [Moles/Vol] 12 mmol/L 5-15 [facility] Automated lymphocyte count a s percentage of total leukocytesOrdered By: [facility] Hubert on 05-27-2024 Lymphocytes/100 WBC Auto (Unsp spec) 35.2 % 19-41 [facility] BUN/creatinine ratioOrdered By: [facility] Hubert on 05-27-2024 Urea nitrogen/Creatinine [Mass ratio] 21.9 mg/mg High 10-20 [facility] Basophil percentageOrdered B y: [facility] Hubert on 05-27-2024 Basophils/100 WBC (Bld) 0.3 % 0-1 [facility] Bedside Glucoseon 05-27-2024 FINGERSTICK GLU 124 mg/dL High 74-106 [facility] Comment on above: Result Comment: DILIA GEMENT OF PATIENT CARE PER NURSING PROTOCOL Performed By: #### L 501.080 ####[facility] [address] [place], [place], [id number] FINGERSTICK GLU 178 mg/dL High 74-106 [facility] Comment on above: Result Comment: DILIA GEMENT OF PATIENT CARE PER NURSING PROTOCOL Performed By: #### L 501.080 ####[facility] [address] [place], [address] Bilirubin, totalOrdered By: Natalie Gaspar on 05-27-2024 Bilirubin [Mass/Vol] 0.25 mg/dL 0.00-1.30 [facility] CBC W/Diff, Automatedon 05-05 Absolute Lymph 2.50 X10 3/uL Normal 0.83-4.51 [facility] Comment on above: Performed By: #### L 100.0100, L500.4050, L501.5200 ####[facility] [address] [place], [address] Absolute Neut 3.6 X10 3/uL Normal 2.0-7.7 [facility] Comment on above: Performed By: #### L 100.0100, L500.4050, L501.5200 ####[facility] [address] [place], [address] Basophils/100 WBC (Bld) 0.3 % Normal 0-1 [facility] Comment on above: Performed By: #### L 100.0100, L500.4050, L501.5200 ####[facility] [address] [place], [address] Eosinophils/100 WBC (Bld) 3.4 % Normal 0-5 [facility] Comment on above: Performed By: #### L 100.0100, L500.4050, L501.5200 ####[facility] [address] [place], [address] Erythrocyte distribution width (RBC) [Ratio] 19.5 % High 11.6-14.6 [facility] Comment on above: Performed By: #### L 100.0100, L500.4050, L501.5200 ####[facility] [address] [place], [address] Hematocrit (Bld) [Volume fraction] 37.1 % Normal 37-47 [facility] Comment on above: Performed By: #### L 100.0100, L500.4050, L501.5200 ####[facility] [address] [place], [address] Hemoglobin (Bld) [Mass/Vol] 11.7 g/dL Low 12.0-15.0 [facility] Comment on above: Performed By: #### L 100.0100, L500.4050, L501.5200 ####[facility] [address] [place], [address] IG% 0.300 Normal 0.0-0.9 [facility] Comment on above: Result Comment: IG% - Immature Granulocytes (promyelocytes, myelocytes andmetamyelocytes) > 1% indicates that a LEFT SHIFT is Present. Performed By: #### L 100.0100, L500.4050, L501.5200 ####[facility] [address] [place], [address] Lymphocytes/100 WBC (Bld) 35.2 % Normal 19-41 [facility] Comment on above: Performed By: #### L 100.0100, L500.4050, L501.5200 ####[facility] [address] [place], [address] MCH (RBC) [Entitic mass] 26.1 pg Low 27.0-32.0 [facility] Comment on above: Performed By: #### L 100.0100, L500.4050, L501.5200 ####[facility] [address] [place], [address] MCHC (RBC) [Mass/Vol] 31.5 g/dL Low 32-36 [facility] Comment on above: Performed By: #### L 100.0100, L500.4050, L501.5200 ####[facility] [address] [place], [address] MCV (RBC) [Entitic vol] 82.8 fL Normal 81-99 [facility] Comment on above: Performed By: #### L 100.0100, L500.4050, L501.5200 ####[facility] [address] [place], [address] Monocytes/100 WBC (Bld) 10.7 % High 0-10 [facility] Comment on above: Performed By: #### L 100.0100, L500.4050, L501.5200 ####[facility] [address] [place], [address] Neutrophils/100 WBC (Bld) 50.1 % Normal 47-70 [facility] Comment on above: Performed By: #### L 100.0100, L500.4050, L501.5200 ####[facility] [address] [place], [address] Nucleated RBC (Bld) [#/Vol] 0 10*3/uL Normal 0-5 [facility] Comment on above: Performed By: #### L 100.0100, L500.4050, L501.5200 ####[facility] [address] [place], [address] Platelet mean volume (Bld) [Entitic vol] 10.3 fL Normal 6.2-12.0 [facility] Comment on above: Performed By: #### L 100.0100, L500.4050, L501.5200 ####[facility] [address] [place], [address] Platelets (Bld) [#/Vol] 183 10*3/uL Normal 150-450 [facility] Comment on above: Performed By: #### L 100.0100, L500.4050, L501.5200 ####[facility] [address] [place], [address] RBC (Bld) [#/Vol] 4.48 10*6/uL Normal 4.2-5.4 [facility] Comment on above: Performed By: #### L 100.0100, L500.4050, L501.5200 ####[facility] [address] [place], [address] RDW SD 57.8 fl High 35.1-43.9 [facility] Comment on above: Performed By: #### L 100.0100, L500.4050, L501.5200 ####[facility] [address] [place], [address] WBC (Bld) [#/Vol] 7.1 10*3/uL Normal 4.4-11.0 [facility] Comment on above: Performed By: #### L 100.0100, L500.4050, L501.5200 ####[facility] [address] [place], [address] Carbon dioxide, total [Moles /volume] in Central venous bloodOrdered By: Natalie Gaspar on 05-27-2024 CO2 [Moles/Vol] 23.1 mmol/L 21.0-32.0 [facility] Cardiovascular stress test r eportOrdered By: Colby Davey on 05-27-2024 Study report [facility] [address] [place] [address] MR#: [id number] Acct: [id number] Name: JAYLIN CARROLL Rep #: [id number] : 1960 63 From: Colby Davey MD [...] Greco MD; Dr. Isael Baeza, DO ~ Date Dictated: 05/27/24 1504 Date Transcribed: 05/27/24 150 Diabetes Educator: [place] Signed [facility] Work Phone: Chloride assayOrdered By: Jenelle Gaspar on 05-27-2024 Chloride [Moles/Vol] 104 mmol/L 98-108 [facility] Comprehensive Metabolic Prof ilon 05-27-2024 Albumin [Mass/Vol] 4.1 g/dL Normal 3.4-4.8 [facility] Comment on above: Performed By: #### L 100.0100, L500.4050, L501.5200 ####[facility] [address] [place], [address] Albumin/Globulin [Mass ratio] 1.9 {ratio} Normal 0.9-2.4 [facility] Comment on above: Performed By: #### L 100.0100, L500.4050, L501.5200 ####[facility] [address] [place], [address] ALK PHOS 79 U/L Normal 35-104 [facility] Comment on above: Performed By: #### L 100.0100, L500.4050, L501.5200 ####[facility] [address] [place], [address] ALT [Catalytic activity/Vol] 20 U/L Normal <=34 [facility] Comment on above: Performed By: #### L 100.0100, L500.4050, L501.5200 ####[facility] [address] [place], [address] AST [Catalytic activity/Vol] 19 U/L Normal <=31 [facility] Comment on above: Performed By: #### L 100.0100, L500.4050, L501.5200 ####[facility] [address] [place], [address] Bilirubin [Mass/Vol] 0.25 mg/dL Normal 0.00-1.30 [facility] Comment on above: Performed By: #### L 100.0100, L500.4050, L501.5200 ####[facility] [address] [place], [address] BUN/CRE 21.9 RATIO High 10-20 [facility] Comment on above: Performed By: #### L 100.0100, L500.4050, L501.5200 ####[facility] [address] [place], [address] Calcium [Mass/Vol] 9.1 mg/dL Normal 7.6-11.0 [facility] Comment on above: Performed By: #### L 100.0100, L500.4050, L501.5200 ####[facility] [address] [place], [address] Chloride [Moles/Vol] 104 mmol/L Normal 98-108 [facility] Comment on above: Performed By: #### L 100.0100, L500.4050, L501.5200 ####[facility] [address] [place], [address] CO2 [Moles/Vol] 23.1 mmol/L Normal 21.0-32.0 [facility] Comment on above: Performed By: #### L 100.0100, L500.4050, L501.5200 ####[facility] [address] [place], [address] Creatinine [Mass/Vol] 0.71 mg/dL Normal 0.70-1.20 [facility] Comment on above: Performed By: #### L 100.0100, L500.4050, L501.5200 ####[facility] [address] [place], [address] ECRCL 79.78 ml/min Normal 50-250 [facility] Comment on above: Performed By: #### L 100.0100, L500.4050, L501.5200 ####[facility] [address] [place], [address] GAP 12 Normal 5-15 [facility] Comment on above: Performed By: #### L 100.0100, L500.4050, L501.5200 ####[facility] [address] [place], [address] GFR/1.73 sq M.predicted among non-blacks MDRD (S/P/Bld) [Vol rate/Area] 96 mL/min/{1.73_m2} Normal >60 [facility] Comment on above: Result Comment: mL/m in/1.73m2 CKD-EPI Creatinine Equation (2020) Performed By: #### L 100.0100, L500.4050, L501.5200 ####[facility] [address] [place], [address] Globulin (S) [Mass/Vol] 2.1 g/dL Low 2.2-4.2 [facility] Comment on above: Performed By: #### L 100.0100, L500.4050, L501.5200 ####[facility] [address] [place], [address] Glucose [Mass/Vol] 196 mg/dL High 70-99 [facility] Comment on above: Performed By: #### L 100.0100, L500.4050, L501.5200 ####[facility] [address] [place], [address] Potassium [Moles/Vol] 3.9 mmol/L Normal 3.3-5.1 [facility] Comment on above: Performed By: #### L 100.0100, L500.4050, L501.5200 ####[facility] [address] [place], [address] Sodium [Moles/Vol] 139 mmol/L Normal 133-145 [facility] Comment on above: Performed By: #### L 100.0100, L500.4050, L501.5200 ####[facility] [address] [place], [address] T PROT 6.3 g/dL Normal 5.9-8.4 [facility] Comment on above: Performed By: #### L 100.0100, L500.4050, L501.5200 ####[facility] [address] [place], [address] Urea nitrogen [Mass/Vol] 16 mg/dL Normal 4-19 [facility] Comment on above: Performed By: #### L 100.0100, L500.4050, L501.5200 ####[facility] [address] [place], [address] Discharge Instructionon 05-05 Discharge Instruction Normal [facility] Electrocardiogram reportOrde red By: Colby Davey on 05-27-2024 EKG study [facility] Cardiovascular Services [address] [place] [address] 12 Lead EKG 05/27/24 0314 MR#: [id number] Acct: [id number] Name: JAYLIN CARROLL Rep #:[id number] : 1960 63 From: Colby Davey MD Attending Dr: Dr. Isael Baeza, Status: ADM MACIEL Ordering Dr: Natalie Gaspar MD Date: 05/27/24 Location: [facility] Sex: F C Admitted: 05/27/24 Test Reason [...] was found Confirmed by PETAR DORMAN, COLBY ([id number]), associate editor ANNALISE HARRISON ([id number]) on 59:48:40 AM Referred By: Confirmed By: COLBY DAVEY MD 05/27/24 0948 Date _ Colby Davey MD CC: Dr. Natalie Gaspar MD; Dr. Paul Greco MD; Dr. Isael Baeza, DO ~ Signed [facility] Work Phone: Eosinophil percentageOrdered By: Natalie Gaspar on 05-27-2024 Eosinophils/100 WBC (Bld) 3.4 % 0-5 [facility] Erythrocyte distribution wid th ratioOrdered By: Natalie Gaspar on 05-27-2024 Erythrocyte distribution width (RBC) [Ratio] 19.5 % High 11.6-14.6 [facility] Erythrocyte distribution wid th standard deviationOrdered By: Natalie Gaspar on 05-27-2024 Erythrocyte distribution width (RBC) [Entitic vol] 57.8 fL High 35.1-43.9 [facility] Erythrocyte distribution width (RBC) [Ratio] 57.8 fl High 35.1-43.9 [facility] Estimation of creatinine debbie aranceOrdered By: Natalie Gaspar on 05-27-2024 Estimated Creatinine Clearance Calc 79.78 ml/min 50-250 [facility] GFR/1.73 sq M.predicted selma g non-blacks MDRD (S/P/Bld) [Vol rate/Area]Ordered By: Natalie Gaspar on 05-27-2024 Estimated GFR (MDRD) Non-Af Amer 96 >60 [facility] Comment on above: mL/min/1.73m2 CKD-EP I Creatinine Equation (2020) Glomerular filtration rate ( GFR) estimation/1.73 sq m using serum, plasma, or whole bOrdered By: Natalie Gaspar on 05-27-2024 GFR/1.73 sq M.predicted among non-blacks MDRD (S/P/Bld) [Vol rate/Area] 96 mL/min/{1.73_m2} >60 [facility] Comment on above: mL/min/1.73m2 CKD-EP I Creatinine Equation (2020) [facility] at [facility] deOrdered By: Isael Baeza on 05-27-2024 Bedside Glucose (Misc Panel) 124 mg/dL High 74-106 [facility] Comment on above: MANAGEMENT OF PATIEN T CARE PER NURSING PROTOCOL Glucose [Mass/Vol] 124 mg/dL High 74-106 [facility] Comment on above: MANAGEMENT OF PATIEN T CARE PER NURSING PROTOCOL H AND P Exam - Hospitaliston 05-27-2024 H&P Exam - Hospitalist Normal [facility] Hematocrit Auto (Bld) [Volum e fraction]Ordered By: Natalie Gaspar on 05-27-2024 Hematocrit (Bld) [Volume fraction] 37.1 % 37-47 [facility] Hemoglobin measurementOrdere d By: Natalie Gaspar on 05-27-2024 Hemoglobin (Bld) [Mass/Vol] 11.7 g/dL Low 12.0-15.0 [facility] Immature granulocytes/100 WB C Auto (Bld)Ordered By: Natalie Hbuert on 05-27-2024 Immature granulocytes/100 WBC (Bld) 0.300 % 0.0-0.9 [facility] Comment on above: IG% - Immature Granu locytes (promyelocytes, myelocytes and metamyelocytes) > 1% indicates that a LEFT SHIFT is Present. L499.0042on 05-27-2024 Trop T High Sen < 6 Normal <=14 [facility] Comment on above: Performed By: #### L 499.0042 ####[facility] [address] [place], [address] L499.0043on 05-27-2024 Trop T High Sen < 6 Normal <=14 [facility] Comment on above: Performed By: #### L 499.0043 ####[facility] [address] [place], [address] L501.4021on 05-27-2024 Trop T High Sen 7 ng/L Normal <=14 [facility] Comment on above: Performed By: #### L 501.4021 ####[facility] [address] [place], [address] Laboratory - Chemistry and C hemistry - challengeOrdered By: Natalie Gaspar on 05-27-2024 AST [Catalytic activity/Vol] 19 U/L <32 [facility] Lymphocytes Auto (Unsp spec) [#/Vol]Ordered By: Natalie Hubert on 05-27-2024 Lymphocytes (Bld) [#/Vol] 2.50 10*3/uL 0.83-4.51 [facility] Lymphocytes/100 WBC Auto (Un sp spec)Ordered By: Natalie Hubert on 05-27-2024 Lymphocytes/100 WBC (Bld) 35.2 % 19-41 [facility] MCV (mean corpuscular volume ) determinationOrdered By: Naatlie Gaspar on 05-27-2024 MCV (RBC) [Entitic vol] 82.8 fL 81-99 [facility] Magnesiumon 05-27-2024 Magnesium [Mass/Vol] 2.1 mg/dL Normal 1.5-2.2 [facility] Comment on above: Performed By: #### L 100.0100, L500.4050, L501.5200 ####[facility] [address] [place], [place], [address] Magnesium (Unsp spec) [Mass/ Vol]Ordered By: Natalie Gaspar on 05-27-2024 Magnesium [Mass/Vol] 2.1 mg/dL 1.5-2.2 [facility] Magnesium measurement (mass/ volume)Ordered By: Natalie Gaspar on 05-27-2024 Magnesium (Unsp spec) [Mass/Vol] 2.1 mg/dL 1.5-2.2 [facility] Mean corpuscular hemoglobin (MCH) determinationOrdered By: Natlaie Gaspar on 05-27-2024 MCH (RBC) [Entitic mass] 26.1 pg Low 27.0-32.0 [facility] Mean corpuscular hemoglobin concentration (MCHC) determinationOrdered By: Natalie Hubert on 05-27-2024 MCHC (RBC) [Mass/Vol] 31.5 g/dL Low 32-36 [facility] Mean platelet volume determi nationOrdered By: Natalie Gaspar on 05-27-2024 Platelet mean volume (Bld) [Entitic vol] 10.3 fL 6.2-12.0 [facility] Monocyte percentageOrdered B y: Naatlie White on 05-27-2024 Monocytes/100 WBC (Bld) 10.7 % High 0-10 [facility] Neutrophil percentageOrdered By: Hubert on 05-27-2024 Neutrophils/100 WBC (Bld) 50.1 % 47-70 [facility] No Panel InformationOrdered By: Natalie Gaspar on 05-27-2024 Troponin T High Sensitivity 7 ng/L <14 [facility] Nucleated red blood cell per centageOrdered By: Natalie Gaspar on 05-27-2024 Nucleated RBC/100 WBC (Bld) [Ratio] 0 % 0-5 [facility] Platelet countOrdered By: Jenelle Gaspar on 05-27-2024 Platelets (Bld) [#/Vol] 183 10*3/uL 150-450 [facility] Potassium (Unsp spec) [Mass/ Vol]Ordered By: Natalie Gaspar on 05-27-2024 Potassium [Moles/Vol] 3.9 mmol/L 3.3-5.1 [facility] Potassium measurement (mass/ volume)Ordered By: Natalie Gaspar on 05-27-2024 Potassium (Unsp spec) [Mass/Vol] 3.9 mmol/L 3.3-5.1 [facility] RBC Auto (Bld) [#/Vol]Ordere d By: Natalie Gaspar on 05-27-2024 RBC (Bld) [#/Vol] 4.48 10*6/uL 4.2-5.4 [facility] Serum creatinine measurement (mass/volume)Ordered By: Natalie Gaspar on 05-27-2024 Creatinine [Mass/Vol] 0.71 mg/dL 0.70-1.20 [facility] Serum globulin measurementOr dered By: Natalie Gaspar on 05-27-2024 Globulin (S) [Mass/Vol] 2.1 g/dL Low 2.2-4.2 [facility] Serum glucose measurement (m ass/volume)Ordered By: Natalie Gaspar on 05-27-2024 Glucose [Mass/Vol] 196 mg/dL High 70-99 [facility] Serum or plasma alanine mesa otransferase (ALT) measurementOrdered By: Natalie Gaspar on 05-27-2024 ALT [Catalytic activity/Vol] 20 U/L <35 [facility] Serum or plasma albumin aminta urement (mass/volume)Ordered By: Natalie Gaspar on 05-27-2024 Albumin [Mass/Vol] 4.1 g/dL 3.4-4.8 [facility] Serum or plasma albumin/glob ulin mass ratioOrdered By: Natalie Gaspar on 05-27-2024 Albumin/Globulin [Mass ratio] 1.9 {ratio} 0.9-2.4 [facility] Serum or plasma alkaline arcelia sphatase measurementOrdered By: Natalie Gaspar on 05-27-2024 ALP [Catalytic activity/Vol] 79 U/L 35-104 [facility] Serum or plasma calcium aminta urement (mass/volume)Ordered By: Natalie Gaspar on 05-27-2024 Calcium [Mass/Vol] 9.1 mg/dL 7.6-11.0 [facility] Serum or plasma urea nitroge n measurement (mass/volume)Ordered By: Natalie Gaspar on 05-27-2024 Urea nitrogen [Mass/Vol] 16 mg/dL 4-19 [facility] Sodium levelOrdered By: Loyu mn Hubert on 05-27-2024 Sodium [Moles/Vol] 139 mmol/L 133-145 [facility] Stress Reporton 05-27-2024 Stress Report Normal [facility] Total proteinOrdered By: Loy olmosn Hubert on 05-27-2024 Protein [Mass/Vol] 6.3 g/dL 5.9-8.4 [facility] Troponin T.cardiac High sens itivity method [Mass/Vol]Ordered By: Natalie Gaspar on 05-27-2024 Troponin T High Sensitivity 4 Hour < 6 ng/L <14 [facility] Troponin T High Sensitivity 2 Hour < 6 ng/L <14 [facility] Troponin T.cardiac [Mass/vol ume] in Serum or Plasma by High sensitivity methodOrdered By: Natalie Gaspar on 05-27-2024 Troponin T.cardiac High sensitivity method [Mass/Vol] < 6 ng/L <14 [facility] Troponin T.cardiac High sensitivity method [Mass/Vol] < 6 ng/L <14 [facility] White blood cell (WBC) count Ordered By: Natalie Gaspar on 05-27-2024 WBC (Bld) [#/Vol] 7.1 10*3/uL 4.4-11.0 [facility] .Auto Diffon 05-26-2024 Basophil, Absolute 0.0 10 3/mcL Normal 0.0-0.2 [facility] Comment on above: Performed By: #### M DW, MG, TROPHS, ANEU, PBNP, CBC, GFR, BMP, ADIFF #### [place] [address] [address] Basophils/100 WBC (Bld) 0.5 % Normal 0.0-2.5 [facility] Comment on above: Performed By: #### M DW, MG, TROPHS, ANEU, PBNP, CBC, GFR, BMP, ADIFF #### [address] [address] Eosinophil, Absolute 0.3 10 3/mcL Normal 0.0-0.7 [facility] Comment on above: Performed By: #### M DW, MG, TROPHS, ANEU, PBNP, CBC, GFR, BMP, ADIFF #### [address] [address] Eosinophils/100 WBC (Bld) 3.2 % Normal 0.0-7.0 [facility] Comment on above: Performed By: #### M DW, MG, TROPHS, ANEU, PBNP, CBC, GFR, BMP, ADIFF #### [address] [address] Lymphocyte, Absolute 2.6 10 3/mcL Normal 0.9-4.3 [facility] Comment on above: Performed By: #### M DW, MG, TROPHS, ANEU, PBNP, CBC, GFR, BMP, ADIFF #### [address] [address] Lymphocytes/100 WBC (Bld) 33.0 % Normal 20.0-40.0 [facility] Comment on above: Performed By: #### M DW, MG, TROPHS, ANEU, PBNP, CBC, GFR, BMP, ADIFF #### [address] [address] Monocyte, Absolute 0.7 10 3/mcL Normal 0.1-1.4 [facility] Comment on above: Performed By: #### M DW, MG, TROPHS, ANEU, PBNP, CBC, GFR, BMP, ADIFF #### [address] [address] Monocytes/100 WBC (Bld) 8.5 % Normal 2.0-13.0 [facility] Comment on above: Performed By: #### M DW, MG, TROPHS, ANEU, PBNP, CBC, GFR, BMP, ADIFF #### [address] [address] Neutrophils/100 WBC (Bld) 54.8 % Normal 50.0-75.0 [facility] Comment on above: Performed By: #### M DW, MG, TROPHS, ANEU, PBNP, CBC, GFR, BMP, ADIFF #### [address] [address] .GFRon 05-26-2024 Estimated Glomerular Filtration Rate 79 ml/min/1.73sqm Normal [facility] Comment on above: Result Comment: Stages of [...] calculate the eGFR results. Performed By: #### U A, UAMICAO #### [address] [address] .MDWon 05-26-2024 Monocyte Distribution Width 18.55 Normal 0.00-20.00 [facility] Comment on above: Result Comment: For ED adult patients suspected of sepsis, MDW<=20.0 does not rule out sepsis or risk of sepsis Performed By: #### M DW, MG, TROPHS, ANEU, PBNP, CBC, GFR, BMP, ADIFF #### [address] [address] .NEUABSon 05-26-2024 Neutrophil, Absolute 4.4 10 3/mcL Normal 2.3-8.1 [facility] Comment on above: Performed By: #### M DW, MG, TROPHS, ANEU, PBNP, CBC, GFR, BMP, ADIFF #### [id number] [place], [place] [address] .Urinalysis Microscopic (AO) on 05-26-2024 UA RBC None Seen Normal None Seen [facility] Comment on above: Performed By: #### U A, UAMICAO #### [address] [address] UA Squam Epithelial 0-5 Abnormal None Seen [facility] Comment on above: Performed By: #### U A, UAMICAO #### [address] [address] UA WBC 0-5 Abnormal None Seen [facility] Comment on above: Performed By: #### U A UAMICAO #### [address] [address] BMPon 05-26-2024 BUN/Creatinine Ratio 18 ratio Normal 7-27 [facility] Comment on above: Performed By: #### M DW, MG, TROPHS, ANEU, PBNP, CBC, GFR, BMP, ADIFF #### [address] [address] Calcium [Mass/Vol] 9.5 mg/dL Normal 8.4-10.2 [facility] Comment on above: Performed By: #### M DW, MG, TROPHS, ANEU, PBNP, CBC, GFR, BMP, ADIFF #### [address] [address] Chloride [Moles/Vol] 102 mmol/L Normal 98-107 [facility] Comment on above: Performed By: #### M DW, MG, TROPHS, ANEU, PBNP, CBC, GFR, BMP, ADIFF #### [address] [address] CO2 [Moles/Vol] 27 mmol/L Normal 23-31 [facility] Comment on above: Performed By: #### M DW, MG, TROPHS, ANEU, PBNP, CBC, GFR, BMP, ADIFF #### [address] [address] Creatinine [Mass/Vol] 0.83 mg/dL Normal 0.55-1.02 [facility] Comment on above: Result Comment: Test ing performed on Siemens Dimension EXL analyzer using a modified kinetic Jaya technique. Performed By: #### M DW, MG, TROPHS, ANEU, PBNP, CBC, GFR, BMP, ADIFF #### [address] [address] Electrolyte Balance 9.0 mEq/L Normal 4.0-15.0 [facility] Comment on above: Performed By: #### M DW, MG, TROPHS, ANEU, PBNP, CBC, GFR, BMP, ADIFF #### [address] [address] Glucose [Mass/Vol] 268 mg/dL High 80-115 [facility] Comment on above: Performed By: #### M DW, MG, TROPHS, ANEU, PBNP, CBC, GFR, BMP, ADIFF #### [address] [address] Potassium [Moles/Vol] 3.6 mmol/L Normal 3.5-5.1 [facility] Comment on above: Performed By: #### M DW, MG, TROPHS, ANEU, PBNP, CBC, GFR, BMP, ADIFF #### [address] [address] Sodium [Moles/Vol] 138 mmol/L Normal 136-145 [facility] Comment on above: Performed By: #### M DW, MG, TROPHS, ANEU, PBNP, CBC, GFR, BMP, ADIFF #### [address] [address] Urea nitrogen [Mass/Vol] 15 mg/dL Normal 7-18 [facility] Comment on above: Performed By: #### M DW, MG, TROPHS, ANEU, PBNP, CBC, GFR, BMP, ADIFF #### [address] [address] CBCon 05-26-2024 Erythrocyte distribution width (RBC) [Ratio] 21.0 % High 11.5-15.5 [facility] Comment on above: Performed By: #### M DW, MG, TROPHS, ANEU, PBNP, CBC, GFR, BMP, ADIFF #### [address] [address] Hematocrit (Bld) [Volume fraction] 39.8 % Normal 34.0-46.0 [facility] Comment on above: Performed By: #### M DW, MG, TROPHS, ANEU, PBNP, CBC, GFR, BMP, ADIFF #### [address] [address] Hgb 12.8 G/dL Normal 12.0-16.0 [facility] Comment on above: Performed By: #### M DW, MG, TROPHS, ANEU, PBNP, CBC, GFR, BMP, ADIFF #### [address] [address] MCH (RBC) [Entitic mass] 25.7 pg Low 27.0-33.0 [facility] Comment on above: Performed By: #### M DW, MG, TROPHS, ANEU, PBNP, CBC, GFR, BMP, ADIFF #### [address] [address] MCHC 32.1 G/dL Normal 32.0-36.0 [facility] Comment on above: Performed By: #### M DW, MG, TROPHS, ANEU, PBNP, CBC, GFR, BMP, ADIFF #### [address] [address] MCV (RBC) [Entitic vol] 80.2 fL Normal 80.0-99.0 [facility] Comment on above: Performed By: #### M DW, MG, TROPHS, ANEU, PBNP, CBC, GFR, BMP, ADIFF #### [address] [address] Platelet 179 10 3/mcL Normal 150-450 [facility] Comment on above: Performed By: #### M DW, MG, TROPHS, ANEU, PBNP, CBC, GFR, BMP, ADIFF #### [address] [address] Platelet mean volume (Bld) [Entitic vol] 8.6 fL Normal 6.6-10.5 [facility] Comment on above: Performed By: #### M DW, MG, TROPHS, ANEU, PBNP, CBC, GFR, BMP, ADIFF #### [address] [address] RBC 4.96 10 6/mcL Normal 4.10-5.30 [facility] Comment on above: Performed By: #### M DW, MG, TROPHS, ANEU, PBNP, CBC, GFR, BMP, ADIFF #### [address] [address] WBC 8.0 10 3/mcL Normal 4.5-10.8 [facility] Comment on above: Performed By: #### M DW, MG, TROPHS, ANEU, PBNP, CBC, GFR, BMP, ADIFF #### [address] [address] [address] HEAD OR BRAIN W/O CONTRAS Ton [...] Date: 05/26/2024 9:29:37 PM Ordering Provider: GAUTAM TEREEbony Normal [facility] MGon 05-26-2024 Magnesium [Mass/Vol] 1.5 mg/dL Low 1.8-2.4 [facility] Comment on above: Performed By: #### U LIU Hope #### [address] [address] PBNPon 05-26-2024 Natriuretic peptide B (Bld) [Mass/Vol] 80 pg/mL Normal 0-125 [facility] Comment on above: Result Comment: NT-p roBNP results of less than 300 pg/mL effectively rules out acute congestive heart failure with 99% negative predictive value. Performed By: #### LIU Rodriguez #### [address] [address] TROPHSon 05-26-2024 High Sensitivity Troponin I 74 ng/L High 051 [facility] Comment on above: Result Comment: High Sensitive Troponin I Reference Ranges: Female: 0-51 ng/L Male: 0-76 ng/L Testing performed on [employer] [place] using a homogeneous sandwich chemiluminescent immunoassay based on [employer] technology. Performed By: #### T ROP #### [address] [address] High Sensitivity Troponin I 81 ng/L High 0-51 [facility] Comment on above: Result Comment: High Sensitive Troponin I Reference Ranges: Female: 0-51 ng/L Male: 0-76 ng/L Testing performed on [employer] [place] using a homogeneous sandwich chemiluminescent immunoassay based on [employer] technology. Performed By: #### M DW, MG, TROPHS, ANEU, PBNP, CBC, GFR, BMP, ADIFF #### [address] [address] [facility] 05-26-2024 Color (U) Yellow Normal [facility] Comment on above: Performed By: #### U LIU Hope #### [address] [address] Glucose (U) [Mass/Vol] Negative Normal Negative [facility] Comment on above: Performed By: #### U LIU Hope #### [address] [address] Ketones Ql (U) Negative Normal Negative [facility] Comment on above: Performed By: #### U A, UAMICAO #### [place] [address] UA Appear Clear Normal Clear [facility] Comment on above: Performed By: #### U A, UAMICAO #### [place] [address] UA Blood Negative Normal Negative [facility] Comment on above: Performed By: #### U A, UAMICAO #### [place] [address] UA Leuk Est Small Abnormal Negative [facility] Comment on above: Performed By: #### U A, UAMICAO #### [place] [address] UA Nitrite Negative Normal Negative [facility] Comment on above: Performed By: #### U A, UAMICAO #### [place] [address] UA pH 6.0 Normal 5.0 - 8.0 [facility] Comment on above: Performed By: #### U A, UAMICAO #### [place] [address] UA Protein Negative Normal Negative [facility] Comment on above: Performed By: #### U A, UAMICAO #### [place] [address] UA Spec Grav 1.025 Normal 1.015-1.025 [facility] Comment on above: Performed By: #### U A, UAMICAO #### [place] [address] UA Specimen Type Clean Catch Normal [facility] Comment on above: Performed By: #### U A, UAMICAO #### [place] [address] UA Urobilinogen 0.2 E.U./dL Normal 0.2-1.0 [facility] Comment on above: Performed By: #### U LIU Hope #### [facility] [address], [place] [address] Urobilinogen (U) [Mass/Vol] Negative Normal Negative [facility] Comment on above: Performed By: #### U LIU Hope #### [facility] [address], [place] [address] XR CHEST 1 VIEWon 05-26-2024 XR CHEST [...] 9:32:39 PM Ordering Provider: GAUTAM ADAM Normal [facility] Lower GI hemoglobin IA Ql (S tl)Ordered By: Andressa Haney on 05-03-2024 Stool Occult Blood (MIGDALIA) [facility] Stool Occult Blood iFOBon STOB Normal [facility] Comment on above: Performed By: #### M 100.7900 ####[facility] [address] [place], [place], [id number] Stool gastrointestinal hemog lobin detection by immunologic methodOrdered By: Andressa Haney on 05-03-2024 Lower GI hemoglobin IA Ql (Stl) [facility] Gastroenterology Visit Repor ton 02-25-2025 Gastroenterology Visit Report Normal [facility] Bedside Glucoseon 04-15-2024 FINGERSTICK GLU 122 mg/dL High 74-106 [facility] Comment on above: Result Comment: DILIA SALCEDO OF PATIENT CARE PER NURSING PROTOCOL Performed By: #### L 501.080 ####[facility] [id number] [place], [place], [address] Colonoscopy Reporton 025 Colonoscopy Report Normal [facility] EGD Reporton 04-15-2024 EGD Report Normal [facility] Glucose measurement at [facility] deOrdered By: Ken Xie on 04-15-2024 Bedside Glucose (Misc Panel) 122 mg/dL High 74-106 [facility] Comment on above: MANAGEMENT OF PATIEN T CARE PER NURSING PROTOCOL Glucose [Mass/Vol] 122 mg/dL High 74-106 [facility] Comment on above: MANAGEMENT OF PATIEN T CARE PER NURSING PROTOCOL H Pylori (initial)on 025 H Pylori (initial) Normal [facility] Comment on above: Performed By: #### P H.PYLORI ####[facility] [address] [place], [place], [address] MR/POSTOP.ANEon 04-15-2024 MR/POSTOP.ANE Normal [facility] MR/[id number] 04-15-2024 MR/POSTOPAN2 Normal [facility] Surgery Specimen Level Naina 04-15-2024 Surgery Specimen Level IV Normal [facility] Comment on above: Performed By: #### P SUIV ####[facility] [id number] [place], [address] MR/PAT.ANEon 04-12-2024 MR/PAT.ANE Normal [facility] CBC W Auto Differential pane l (Bld)on 04-11-2024 Basophils (Bld) [#/Vol] 0.03 10*3/uL [facility] Basophils/100 WBC (Bld) 0.4 % [facility] Differential cell count method Nom (Bld) Auto [facility] Eosinophils (Bld) [#/Vol] 0.23 10*3/uL [facility] Eosinophils/100 WBC (Bld) 3.2 % [facility] Erythrocyte distribution width (RBC) [Ratio] 19.3 % High 11.5 - 15.0 % [facility] Hematocrit (Bld) [Volume fraction] 36.9 % 36.0 - 46.0 % [facility] Hemoglobin (Bld) [Mass/Vol] 10.9 g/dL Low 11.5 - 15.5 g/dL [facility] Immature granulocytes (Bld) [#/Vol] 0.03 10*3/uL [facility] Immature granulocytes/100 WBC (Bld) 0.4 % [facility] Interpretation and review of laboratory results Abnormal [facility] Lymphocytes (Bld) [#/Vol] 2.65 10*3/uL [facility] Lymphocytes/100 WBC (Bld) 36.6 % [facility] MCH (RBC) [Entitic mass] 24.8 pg Low 26.0 - 34.0 pg [facility] MCHC (RBC) [Mass/Vol] 29.5 g/dL Low 30.5 - 36.0 g/dL [facility] MCV (RBC) [Entitic vol] 83.9 fL 80.0 - 100.0 fL [facility] Monocytes (Bld) [#/Vol] 0.42 10*3/uL [facility] Monocytes/100 WBC (Bld) 5.8 % [facility] Neutrophils (Bld) [#/Vol] 3.89 10*3/uL [facility] Neutrophils/100 WBC (Bld) 53.6 % [facility] Nucleated RBC (Bld) [#/Vol] [facility] Nucleated RBC/100 WBC (Bld) [Ratio] 0.0 % /100 WBC [facility] Platelet mean volume (Bld) [Entitic vol] 10.1 fL 9.0 - 12.7 fL [facility] Platelets (Bld) [#/Vol] 315 10*3/uL [facility] RBC (Bld) [#/Vol] 4.40 10*6/uL 3.90 - 5.2 0 m/uL [facility] WBC (Bld) [#/Vol] 7.25 10*3/uL [facility] Basophils (Bld) [#/Vol] 0.03 10*3/uL Normal <0.11 [facility] Comment on above: Order Comment: Speci men Type: BLOOD SPECIMEN Ordering Facility: [facility] Address: [address] [place] [address] Performed By: #### 5 7021-8 #### [facility] CLIA [id number] [address] Basophils/100 WBC (Bld) 0.4 % Normal [facility] Comment on above: Order Comment: Speci men Type: BLOOD SPECIMEN Ordering Facility: [facility] Address: [address] [place] [address] Performed By: #### 5 7021-8 #### [facility] CLIA [id number] [address] Differential cell count method Nom (Bld) Auto Normal [facility] Comment on above: Order Comment: Speci men Type: BLOOD SPECIMEN Ordering Facility: [facility] Address: [address] [place] [address] Performed By: #### 5 7021-8 #### [facility] CLIA [id number] [address] Eosinophils (Bld) [#/Vol] 0.23 10*3/uL Normal <0.46 [facility] Comment on above: Order Comment: Speci men Type: BLOOD SPECIMEN Ordering Facility: [facility] Address: [address] [place] [address] Performed By: #### 5 7021-8 #### [facility] CLIA [id number] [address] Eosinophils/100 WBC (Bld) 3.2 % Normal [facility] Comment on above: Order Comment: Speci men Type: BLOOD SPECIMEN Ordering Facility: [facility] Address: [address] [place] [address] Performed By: #### 5 7021-8 #### [facility] CLIA [id number] [address] Erythrocyte distribution width (RBC) [Ratio] 19.3 % High 11.5-15.0 [facility] Comment on above: Order Comment: Speci men Type: BLOOD SPECIMEN Ordering Facility: [facility] Address: [address] [place] [address] Performed By: #### 5 7021-8 #### [facility] CLIA [id number] [address] [place] Hematocrit (Bld) [Volume fraction] 36.9 % Normal 36.0-46.0 [facility] Comment on above: Order Comment: Speci men Type: BLOOD SPECIMEN Ordering Facility: [facility] Address: [address] [place] [address] Performed By: #### 5 7021-8 #### [facility] CLIA [id number] [address] [place] Hemoglobin (Bld) [Mass/Vol] 10.9 g/dL Low 11.5-15.5 [facility] Comment on above: Order Comment: Speci men Type: BLOOD SPECIMEN Ordering Facility: [facility] Address: [address] [place] [address] Performed By: #### 5 7021-8 #### [facility] CLIA [id number] [address] [place] Immature granulocytes (Bld) [#/Vol] 0.03 10*3/uL Normal <0.10 [facility] Comment on above: Order Comment: Speci men Type: BLOOD SPECIMEN Ordering Facility: [facility] Address: [address] [place] [address] Performed By: #### 5 7021-8 #### [facility] CLIA [id number] [address] [place] Immature granulocytes/100 WBC (Bld) 0.4 % Normal [facility] Comment on above: Order Comment: Speci men Type: BLOOD SPECIMEN Ordering Facility: [facility] Address: [address] [place] [address] Performed By: #### 5 7021-8 #### [facility] CLIA [id number] [address] [place] Lymphocytes (Bld) [#/Vol] 2.65 10*3/uL Normal 1.00-4.00 [facility] Comment on above: Order Comment: Speci men Type: BLOOD SPECIMEN Ordering Facility: [facility] Address: [address] [place] [address] Performed By: #### 5 7021-8 #### [facility] CLIA [id number] [address] Lymphocytes/100 WBC (Bld) 36.6 % Normal [facility] Comment on above: Order Comment: Speci men Type: BLOOD SPECIMEN Ordering Facility: [facility] Address: [address] [place] [address] Performed By: #### 5 7021-8 #### [facility] CLIA [id number] [address] STATES OF [facility] MCH (RBC) [Entitic mass] 24.8 pg Low 26.0-34.0 [facility] Comment on above: Order Comment: Speci men Type: BLOOD SPECIMEN Ordering Facility: [facility] Address: [address] [place] [address] Performed By: #### 5 7021-8 #### [facility] CLIA [id number] [address] OF [facility] MCHC (RBC) [Mass/Vol] 29.5 g/dL Low 30.5-36.0 [facility] Comment on above: Order Comment: Speci men Type: BLOOD SPECIMEN Ordering Facility: [facility] Address: [address] [place] [address] Performed By: #### 5 7021-8 #### [facility] CLIA [id number] [address] MCV (RBC) [Entitic vol] 83.9 fL Normal 80.0-100.0 [facility] Comment on above: Order Comment: Speci men Type: BLOOD SPECIMEN Ordering Facility: [facility] Address: [address] [place] [address] Performed By: #### 5 7021-8 #### [facility] CLIA [id number] [address] [place] Monocytes (Bld) [#/Vol] 0.42 10*3/uL Normal <0.87 [facility] Comment on above: Order Comment: Speci men Type: BLOOD SPECIMEN Ordering Facility: [facility] Address: [address] [place] [address] Performed By: #### 5 7021-8 #### [facility] CLIA [id number] [address] [place] Monocytes/100 WBC (Bld) 5.8 % Normal A [facility] Comment on above: Order Comment: Speci men Type: BLOOD SPECIMEN Ordering Facility: [facility] Address: [address] [place] [address] Performed By: #### 5 7021-8 #### [facility] CLIA [id number] [address] [place] Neutrophils (Bld) [#/Vol] 3.89 10*3/uL Normal 1.45-7.50 [facility] Comment on above: Order Comment: Speci men Type: BLOOD SPECIMEN Ordering Facility: [facility] Address: [address] [place] [address] Performed By: #### 5 7021-8 #### [facility] CLIA [id number] [address] [place] Neutrophils/100 WBC (Bld) 53.6 % Normal [facility] Comment on above: Order Comment: Speci men Type: BLOOD SPECIMEN Ordering Facility: [facility] Address: [address] [place] [address] Performed By: #### 5 7021-8 #### [facility] CLIA [id number] [address] [place] Nucleated RBC (Bld) [#/Vol] 10*3/uL Normal <0.01 [facility] Comment on above: Order Comment: Speci men Type: BLOOD SPECIMEN Ordering Facility: [facility] Address: [address] [place] [address] Performed By: #### 5 7021-8 #### [facility] CLIA [id number] [address] [place] Nucleated RBC/100 WBC (Bld) [Ratio] 0.0 /[address] [facility] Comment on above: Order Comment: Speci men Type: BLOOD SPECIMEN Ordering Facility: [facility] Address: [facility] [place] [address] Performed By: #### 5 7021-8 #### [facility] CLIA [id number] [address] [place] Platelet mean volume (Bld) [Entitic vol] 10.1 fL Normal 9.0-12.7 [facility] Comment on above: Order Comment: Speci men Type: BLOOD SPECIMEN Ordering Facility: [facility] Address: [address] [place] [address] Performed By: #### 5 7021-8 #### [facility] CLIA [id number] [address] [place] Platelets (Bld) [#/Vol] 315 10*3/uL Normal 150-400 [facility] Comment on above: Order Comment: Speci men Type: BLOOD SPECIMEN Ordering Facility: [facility] Address: [address] [place] [address] Performed By: #### 5 7021-8 #### [facility] CLIA [id number] [address] [place] RBC (Bld) [#/Vol] 4.40 10*6/uL Normal 3.90-5.20 [facility] Comment on above: Order Comment: Speci men Type: BLOOD SPECIMEN Ordering Facility: [facility] Address: [address] [place] [address] Performed By: #### 5 7021-8 #### [facility] CLIA [id number] [address] [place] WBC (Bld) [#/Vol] 7.25 10*3/uL Normal 3.70-11.00 [facility] Comment on above: Order Comment: Matt patricio Type: BLOOD SPECIMEN Ordering Facility: [facility] Address: [address] [place] [address] Performed By: #### 5 7021-8 #### [facility] CLIA [id number] 1 [place] [address] [place] [facility] Comprehensive metabolic 2000 panelon 04-11-2024 Albumin [Mass/Vol] 4.1 g/dL 3.9 - 4.9 g/dL [facility] ALP [Catalytic activity/Vol] 88 U/L 34 - 123 U/L [facility] ALT [Catalytic activity/Vol] 19 U/L 7 - 38 U/L [facility] Anion gap [Moles/Vol] 8 mmol/L 8 - 15 mmol/L [facility] AST [Catalytic activity/Vol] 13 U/L 13 - 35 U/L [facility] Bilirubin [Mass/Vol] 0.4 mg/dL 0.2 - 1 .3 mg/dL [facility] Comment on above: Use of this assay is not recommended for patients undergoing treatment with eltrombopag due to the potential for falsely elevated results. Calcium [Mass/Vol] 9.5 mg/dL 8.5 - 10. 2 mg/dL [facility] Chloride [Moles/Vol] 106 mmol/L 98 - 10 7 mmol/L [facility] CO2 [Moles/Vol] 25 mmol/L 22 - 30 mmol/L [facility] Creatinine [Mass/Vol] 0.54 mg/dL Low 0.58 - 0.96 mg/dL [facility] Comment on above: Use of this assay is not recommended for patients undergoing treatment with phenindione, due to the potential for falsely depressed results. GFR/1.73 sq M.predicted among non-blacks MDRD (S/P/Bld) [Vol rate/Area] 104 mL/min/{1.73_m2} - PINF [facility] Comment on above: Estimated Glomerular Filtration Rate [...] 148 mg/dL High 74 - 99 mg/dL [facility] Comment on above: The [place] Di[employer] Association (ADA) provides guidance for [...] Standards of Medical Care in Diabetes 2016, [place] [employer]. Diabetes Care. 2016.39(Suppl 1). Interpretation and review of laboratory results Abnormal [facility] Potassium [Moles/Vol] 3.5 mmol/L Low 3.7 - 5.1 mmol/L [facility] Protein [Mass/Vol] 7.1 g/dL 6.3 - 8.0 g/dL [facility] Sodium [Moles/Vol] 139 mmol/L 136 - 144 mmol/L [facility] Urea nitrogen [Mass/Vol] 12 mg/dL 7 - 21 mg/dL [facility] Albumin [Mass/Vol] 4.1 g/dL Normal 3.9-4.9 [facility] Comment on above: Order Comment: Matt patricio Type: BLOOD SPECIMEN Ordering Facility: [facility] Address: [address] [place] [address] Performed By: #### 4 537-7 #### [facility] CLIA [id number] [address] [place] [address] [place] ALP [Catalytic activity/Vol] 88 U/L Normal 34-123 [facility] Comment on above: Order Comment: Matt patricio Type: BLOOD SPECIMEN Ordering Facility: [facility] Address: [address] [place] [address] Performed By: #### 4 537-7 #### [facility] CLIA [id number] [address] [place] [id number] [place] ALT [Catalytic activity/Vol] 19 U/L Normal 7-38 [facility] Comment on above: Order Comment: Speci men Type: BLOOD SPECIMEN Ordering Facility: [facility] Address: [address] [place] [address] Performed By: #### 4 537-7 #### [facility] CLIA [id number] [address] [place], [place] [id number] [place] Anion gap [Moles/Vol] 8 mmol/L Normal 8-15 [facility] Comment on above: Order Comment: Speci men Type: BLOOD SPECIMEN Ordering Facility: [facility] Address: [address] [place] [address] Performed By: #### 4 537-7 #### [facility] CLIA [id number] [address] [place] [address] [place] AST [Catalytic activity/Vol] 13 U/L Normal 13-35 [facility] Comment on above: Order Comment: Speci men Type: BLOOD SPECIMEN Ordering Facility: [facility] Address: [address] [place] [address] Performed By: #### 4 537-7 #### [facility] CLIA [id number] [address] [place] [address] [place] Bilirubin [Mass/Vol] 0.4 mg/dL Normal 0.2-1.3 [facility] Comment on above: Order Comment: Speci men Type: BLOOD SPECIMEN Ordering Facility: [facility] Address: [address] [place] [address] Result Comment: Use of this assay is not recommended for patients undergoing treatment with eltrombopag due to the potential for falsely elevated results. Performed By: #### 4 537-7 #### [facility] CLIA [id number] [address] [place] [address] [place] Calcium [Mass/Vol] 9.5 mg/dL Normal 8.5-10.2 [facility] Comment on above: Order Comment: Speci men Type: BLOOD SPECIMEN Ordering Facility: [facility] Address: [address] [place] [address] Performed By: #### 4 537-7 #### [facility] CLIA [id number] [address] [place] [address] [place] Chloride [Moles/Vol] 106 mmol/L Normal 98-107 [facility] Comment on above: Order Comment: Speci men Type: BLOOD SPECIMEN Ordering Facility: [facility] Address: [address] [place] [address] Performed By: #### 4 537-7 #### [facility] CLIA [id number] [address] [place] [address] [place] CO2 [Moles/Vol] 25 mmol/L Normal 22-30 [facility] Comment on above: Order Comment: Speci men Type: BLOOD SPECIMEN Ordering Facility: [facility] Address: [address] [place] [address] Performed By: #### 4 537-7 #### [facility] CLIA [id number] [address] [place] [address] [place] Creatinine [Mass/Vol] 0.54 mg/dL Low 0.58-0.96 [facility] Comment on above: Order Comment: Speci men Type: BLOOD SPECIMEN Ordering Facility: [facility] Address: [address] [place] [address] Result Comment: Use of this assay is not recommended for patients undergoing treatment with phenindione, due to the potential for falsely depressed results. Performed By: #### 4 537-7 #### [facility] CLIA [id number] [address] [place] [address] [place] Creatinine and Glomerular filtration rate.predicted panel (S/P/Bld) 104 mL/min/1.73m??? Normal >=60 [facility] Comment on above: Order Comment: Speci men Type: BLOOD SPECIMEN Ordering Facility: [facility] Address: [address] [place] [address] Result Comment: Glynn mated Glomerular Filtration Rate [...] accurately reflect actual GFR. Performed By: #### 4 537-7 #### [facility] CLIA [id number] [address] [place] [address] [place] Glucose [Mass/Vol] 148 mg/dL High 74-99 [facility] Comment on above: Order Comment: Matt patricio Type: BLOOD SPECIMEN Ordering Facility: [facility] Address: [address] [place] [address] Result Comment: The [place] Diabetes Association (ADA) provides guidance for cutoff [...] Standards of Medical Care in Diabetes 2016, [place] [employer]. Diabetes Care. 2016.39(Suppl 1). Performed By: #### 4 537-7 #### [facility] CLIA [id number] [address] [place] [address] [place] Potassium [Moles/Vol] 3.5 mmol/L Low 3.7-5.1 [facility] Comment on above: Order Comment: Matt patricio Type: BLOOD SPECIMEN Ordering Facility: [facility] Address: [address] [place], [place] [id number] Performed By: #### 4 537-7 #### [facility] CLIA [id number] [address] [place] [address] [place] Protein [Mass/Vol] 7.1 g/dL Normal 6.3-8.0 [facility] Comment on above: Order Comment: Speci men Type: BLOOD SPECIMEN Ordering Facility: [facility] Address: [address] [place] [address] Performed By: #### 4 537-7 #### [facility] CLIA [id number] [address] [place] [address] [place] Sodium [Moles/Vol] 139 mmol/L Normal 136-144 [facility] Comment on above: Order Comment: Speci men Type: BLOOD SPECIMEN Ordering Facility: [facility] Address: [address] [place] [address] Performed By: #### 4 537-7 #### [facility] CLIA [id number] [address] [place] [address] [place] Urea nitrogen [Mass/Vol] 12 mg/dL Normal 7-21 [facility] Comment on above: Order Comment: Speci men Type: BLOOD SPECIMEN Ordering Facility: [facility] Address: [address] [place] [address] Performed By: #### 4 537-7 #### [facility] CLIA [id number] [address] [place] [address] [place] L501.4020on 03-11-2024 TROPONIN-I HS 412 pg/mL Invalid Interpretation Code 3.0-54.0 [facility] Comment on above: Order Comment: 'TROP ' Serial specimen #1, #2 or #3: 3 Result Comment: Rosat ical Result(s) Called at: 04:15:30 03/11/2024 by: Karin. to Nicole FREIGHT BRAKEMAN. Results read back by same. Please Note: New Test Units and Gender Specific Reference Ranges. For more information see Policy Stat Procedure [place] High Sensitivity Troponin (TNIH) and attachments. Performed By: #### L 501.4020 ####[facility] [address] [place], [address] Troponin IOrdered By: Osmani Marie on 03-11-2024 Troponin I High Sensitivity 412 pg/mL High 3.0-54.0 [facility] Comment on above: Critical Result(s) C alled at: 04:15:30 03/11/2024 by: Pj Oswald. to LSparr FREIGHT BRAKEMAN. Results read back by same. Please Note: New Test Units and Gender Specific Reference Ranges. For more information see Policy Stat Procedure [place] High Sensitivity Troponin (TNIH) and attachments. 12 Lead EKGon 03-10-2024 12 Lead EKG Normal [facility] Absolute neutrophil countOrd ered By: Paco Sellers on 03-10-2024 Neutrophils (Bld) [#/Vol] 8.0 10*3/uL High 2.0-7.7 [facility] Basic Metabolic Profile (BMP )on 03-10-2024 BUN/CRE 13.4 RATIO Normal 10-20 [facility] Comment on above: Order Comment: 1Y Performed By: #### L 500.2500, L100.0100, L501.5425 ####[facility] [address] [place], [address] CA,Total 9.3 mg/dL Normal 8.5-10.1 [facility] Comment on above: Order Comment: 1Y Performed By: #### L 500.2500, L100.0100, L501.5425 ####[facility] [address] [place], [address] Chloride [Moles/Vol] 103 mmol/L Normal 98-107 [facility] Comment on above: Order Comment: 1Y Performed By: #### L 500.2500, L100.0100, L501.5425 ####[facility] [address] [place], [address] CO2 [Moles/Vol] 26.0 mmol/L Normal 21.0-32.0 [facility] Comment on above: Order Comment: 1Y Performed By: #### L 500.2500, L100.0100, L501.5425 ####[facility] [address] [place], [address] Creatinine [Mass/Vol] 0.67 mg/dL Normal 0.55-1.02 [facility] Comment on above: Order Comment: 1Y Result Comment: The validity of the calculated GFR GFRAA in patients over70 years has not been determined. Clinical correlation isessential. Performed By: #### L 500.2500, L100.0100, L501.5425 ####[facility] [address] [place], [address] ECRCL 84.43 ml/min Normal [facility] Comment on above: Order Comment: 1Y Performed By: #### L 500.2500, L100.0100, L501.5425 ####[facility] [address] [place], [address] EST GFR - AA 114 mL/min Normal >60 [facility] Comment on above: Order Comment: 1Y Result Comment: Afri can Gabonese GFR Calc Performed By: #### L 500.2500, L100.0100, L501.5425 ####[facility] [address] [place], [address] GAP 8 Normal 5-15 [facility] Comment on above: Order Comment: 1Y Performed By: #### L 500.2500, L100.0100, L501.5425 ####[facility] [address] [place], [address] GFR/1.73 sq M.predicted among non-blacks MDRD (S/P/Bld) [Vol rate/Area] 94 mL/min/{1.73_m2} Normal >60 [facility] Comment on above: Order Comment: 1Y Result Comment: Non- GFR Calc Performed By: #### L 500.2500, L100.0100, L501.5425 ####[facility] [address] [place], [address] Glucose [Mass/Vol] 349 mg/dL High 74-106 [facility] Comment on above: Order Comment: 1Y Result Comment: Gluc ose result greater than or equal to 200 mg/dLsuggests DIABETES MELLITUS per A.D.A. criteria. Performed By: #### L 500.2500, L100.0100, L501.5425 ####[facility] [address] [place], [address] Potassium [Moles/Vol] 3.4 mmol/L Low 3.5-5.1 [facility] Comment on above: Order Comment: 1Y Performed By: #### L 500.2500, L100.0100, L501.5425 ####[facility] [address] [place], [address] Sodium [Moles/Vol] 137 mmol/L Normal 136-145 [facility] Comment on above: Order Comment: 1Y Performed By: #### L 500.2500, L100.0100, L501.5425 ####[facility] [address] [place], [address] Urea nitrogen [Mass/Vol] 9 mg/dL Normal 7-18 [facility] Comment on above: Order Comment: 1Y Performed By: #### L 500.2500, L100.0100, L501.5425 ####[facility] [address] [place], [address] Basophil percentageOrdered B y: Paco Sellers on 03-10-2024 Basophils/100 WBC (Bld) 0.3 % 0-1 [facility] Blood urea nitrogen (BUN)/cr eatinine ratioOrdered By: Paco Sellers on 03-10-2024 Urea nitrogen/Creatinine [Mass ratio] 13.4 mg/mg 10-20 [facility] CBC W/Diff, Automatedon Absolute Lymph 1.59 X10 3/uL Normal 0.83-4.51 [facility] Comment on above: Performed By: #### L 500.2500, L100.0100, L501.5425 ####[facility] [address] [place], [address] Absolute Neut 8.0 X10 3/uL High 2.0-7.7 [facility] Comment on above: Performed By: #### L 500.2500, L100.0100, L501.5425 ####[facility] [address] [place], [address] Basophils/100 WBC (Bld) 0.3 % Normal 0-1 [facility] Comment on above: Performed By: #### L 500.2500, L100.0100, L501.5425 ####[facility] [address] [place], [address] Eosinophils/100 WBC (Bld) 1.1 % Normal 0-5 [facility] Comment on above: Performed By: #### L 500.2500, L100.0100, L501.5425 ####[facility] [address] [place], [address] Erythrocyte distribution width (RBC) [Ratio] 17.8 % High 11.6-14.6 [facility] Comment on above: Performed By: #### L 500.2500, L100.0100, L501.5425 ####[facility] [address] [place], [address] Hematocrit (Bld) [Volume fraction] 33.5 % Low 37-47 [facility] Comment on above: Performed By: #### L 500.2500, L100.0100, L501.5425 ####[facility] [address] [place], [address] Hemoglobin (Bld) [Mass/Vol] 10.2 g/dL Low 12.0-15.0 [facility] Comment on above: Performed By: #### L 500.2500, L100.0100, L501.5425 ####[facility] [address] [place], [address] IG% 1.100 High 0.0-0.9 [facility] Comment on above: Result Comment: IG% - Immature Granulocytes (promyelocytes, myelocytes andmetamyelocytes) > 1% indicates that a LEFT SHIFT is Present. Performed By: #### L 500.2500, L100.0100, L501.5425 ####[facility] [address] [place], [address] Lymphocytes/100 WBC (Bld) 14.8 % Low 19-41 [facility] Comment on above: Performed By: #### L 500.2500, L100.0100, L501.5425 ####[facility] [address] [place], [address] MCH (RBC) [Entitic mass] 24.2 pg Low 27.0-32.0 [facility] Comment on above: Performed By: #### L 500.2500, L100.0100, L501.5425 ####[facility] [address] [place], [address] MCHC (RBC) [Mass/Vol] 30.4 g/dL Low 32-36 [facility] Comment on above: Performed By: #### L 500.2500, L100.0100, L501.5425 ####[facility] [address] [place], [address] MCV (RBC) [Entitic vol] 79.4 fL Low 81-99 [facility] Comment on above: Performed By: #### L 500.2500, L100.0100, L501.5425 ####[facility] [address] [place], [address] Monocytes/100 WBC (Bld) 8.6 % Normal 0-10 [facility] Comment on above: Performed By: #### L 500.2500, L100.0100, L501.5425 ####[facility] [address] [place], [address] Neutrophils/100 WBC (Bld) 74.1 % High 47-70 [facility] Comment on above: Performed By: #### L 500.2500, L100.0100, L501.5425 ####[facility] [address] [place], [address] Nucleated RBC (Bld) [#/Vol] 0 10*3/uL Normal 0-5 [facility] Comment on above: Performed By: #### L 500.2500, L100.0100, L501.5425 ####[facility] [address] [place], [address] Platelet mean volume (Bld) [Entitic vol] 9.3 fL Normal 6.2-12.0 [facility] Comment on above: Performed By: #### L 500.2500, L100.0100, L501.5425 ####[facility] [address] [place], [address] Platelets (Bld) [#/Vol] 311 10*3/uL Normal 150-450 [facility] Comment on above: Performed By: #### L 500.2500, L100.0100, L501.5425 ####[facility] [address] [place], [address] RBC (Bld) [#/Vol] 4.22 10*6/uL Normal 4.2-5.4 [facility] Comment on above: Performed By: #### L 500.2500, L100.0100, L501.5425 ####[facility] [address] [place], [address] RDW SD 51.0 fl High 35.1-43.9 [facility] Comment on above: Performed By: #### L 500.2500, L100.0100, L501.5425 ####[facility] [address] [place], [address] WBC (Bld) [#/Vol] 10.8 10*3/uL Normal 4.4-11.0 [facility] Comment on above: Performed By: #### L 500.2500, L100.0100, L501.5425 ####[facility] [address] [place], [address] CTA Chest W/WO Contraston CTA Chest W/WO Contrast Normal [facility] Carbon dioxide measurementOr dered By: Paco Sellers on 03-10-2024 CO2 [Moles/Vol] 26.0 mmol/L 21.0-32.0 [facility] Chest PA and Lateralon 03-10 Chest PA and Lateral Normal [facility] Chloride measurementOrdered By: Paco Sellers on 03-10-2024 Chloride [Moles/Vol] 103 mmol/L 98-107 [facility] Emergency Department Summary on 03-10-2024 Emergency Department Summary Normal [facility] Eosinophil percentageOrdered By: Paco Sellers on 03-10-2024 Eosinophils/100 WBC (Bld) 1.1 % 0-5 [facility] Erythrocyte distribution wid th ratioOrdered By: Paco Sellers on 03-10-2024 Erythrocyte distribution width (RBC) [Ratio] 17.8 % High 11.6-14.6 [facility] Erythrocyte distribution wid th standard deviationOrdered By: Paco Sellers on 03-10-2024 Erythrocyte distribution width (RBC) [Entitic vol] 51.0 fL High 35.1-43.9 [facility] Estimated glomerular filtrat ion rate (GFR) AmericanOrdered By: Paco Sellers on 03-10-2024 Estimated GFR (MDRD) Amer 114 mL/min >60 [facility] Comment on above: GFR Calc Estimation of creatinine debbie aranceOrdered By: Paco Sellers on 03-10-2024 Estimated Creatinine Clearance Calc 84.43 ml/min [facility] Glomerular filtration rate ( GFR) estimationOrdered By: Paco Verito on 03-10-2024 Estimated GFR (MDRD) Non-Af Amer 94 mL/min >60 [facility] Comment on above: Non- GFR Calc Glucose measurementOrdered B y: Paco Sellers on 03-10-2024 Glucose [Mass/Vol] 349 mg/dL High 74-106 [facility] Comment on above: Glucose result great er than or equal to 200 mg/dLsuggests DIABETES MELLITUS per A.D.A. criteria. Hematocrit Auto (Bld) [Volum e fraction]Ordered By: Paco Sellers on 03-10-2024 Hematocrit (Bld) [Volume fraction] 33.5 % Low 37-47 [facility] Hemoglobin measurementOrdere d By: Paco Sellers on 03-10-2024 Hemoglobin (Bld) [Mass/Vol] 10.2 g/dL Low 12.0-15.0 [facility] Immature granulocytes/100 WB C Auto (Bld)Ordered By: Paco Sellers on 03-10-2024 Immature granulocytes/100 WBC (Bld) 1.100 % High 0.0-0.9 [facility] Comment on above: IG% - Immature Granu locytes (promyelocytes, myelocytes and metamyelocytes) > 1% indicates that a LEFT SHIFT is Present. Influenza virus A and B and SARS-CoV-2 (COVID-19) and Respiratory syncytial virus RNAOrdered By: Paco Sellers on 03-10-2024 SARS-CoV-2 (COVID-19) RNA RAMIREZ+probe Ql (Unsp spec) SARS-CoV-2 (COVID 19 PCR) Abnormal [facility] L501.4020on 03-10-2024 TROPONIN-I HS 508 pg/mL Invalid Interpretation Code 3.0-54.0 [facility] Comment on above: Result Comment: Crit ical Result(s) Called at: 23:43:14 03/10/2024 by: Karin. to Nicole FREIGHT BRAKEMAN. Results read back by same. Please Note: New Test Units and Gender Specific Reference Ranges. For more information see Policy Stat Procedure [place] High Sensitivity Troponin (TNIH) and attachments. Performed By: #### L 501.4020 ####[facility] [address] [place], [address] L501.5425on 03-10-2024 TROPONIN-I HS 502 pg/mL Invalid Interpretation Code 3.0-54.0 [facility] Comment on above: Order Comment: 1Y Result Comment: Crit ical Result(s) Called at: 21:21:21 03/10/2024 by: BERNARDINO. Results read back by Samuel Salinas Please Note: New Test Units and Gender Specific Reference Ranges. For more information see Policy Stat Procedure [place] High Sensitivity Troponin (TNIH) and attachments. Performed By: #### L 500.2500, L100.0100, L501.5425 ####[facility] [address] [place], [address] Lymphocytes Auto (Unsp spec) [#/Vol]Ordered By: Paco Sellers on 03-10-2024 Lymphocytes (Bld) [#/Vol] 1.59 10*3/uL 0.83-4.51 [facility] Lymphocytes/100 WBC Auto (Un sp spec)Ordered By: Paco Sellers on 03-10-2024 Lymphocytes/100 WBC (Bld) 14.8 % Low 19-41 [facility] M100.678on 03-10-2024 M100.678 Normal [facility] Comment on above: Performed By: #### M 100.678 ####[facility] [address] [place], [address] MCV (mean corpuscular volume ) determinationOrdered By: Paco Sellers on 03-10-2024 MCV (RBC) [Entitic vol] 79.4 fL Low 81-99 [facility] Mean corpuscular hemoglobin (MCH) determinationOrdered By: Paco Sellers on 03-10-2024 MCH (RBC) [Entitic mass] 24.2 pg Low 27.0-32.0 [facility] Mean corpuscular hemoglobin concentration (MCHC) determinationOrdered By: Paco Sellers on 03-10-2024 MCHC (RBC) [Mass/Vol] 30.4 g/dL Low 32-36 [facility] Mean platelet volume determi nationOrdered By: Paco Sellers on 03-10-2024 Platelet mean volume (Bld) [Entitic vol] 9.3 fL 6.2-12.0 [facility] Monocyte percentageOrdered B y: Paco Sellers on 03-10-2024 Monocytes/100 WBC (Bld) 8.6 % 0-10 [facility] Neutrophil percentageOrdered By: Paco Sellers on 03-10-2024 Neutrophils/100 WBC (Bld) 74.1 % High 47-70 [facility] Nucleated red blood cell per centageOrdered By: Paco Sellers on 03-10-2024 Nucleated RBC/100 WBC (Bld) [Ratio] 0 % 0-5 [facility] Platelet countOrdered By: Pa ul Verito on 03-10-2024 Platelets (Bld) [#/Vol] 311 10*3/uL 150-450 [facility] Potassium measurementOrdered By: Paco Sellers on 03-10-2024 Potassium [Moles/Vol] 3.4 mmol/L Low 3.5-5.1 [facility] RBC Auto (Bld) [#/Vol]Ordere d By: Paco Sellers on 03-10-2024 RBC (Bld) [#/Vol] 4.22 10*6/uL 4.2-5.4 [facility] Serum anion gap measurementO rdered By: Paco Sellers on 03-10-2024 Anion gap [Moles/Vol] 8 mmol/L 5-15 [facility] Serum or plasma calcium aminta urement (mass/volume)Ordered By: Paco Sellers on 03-10-2024 Calcium [Mass/Vol] 9.3 mg/dL 8.5-10.1 [facility] Serum or plasma creatinine m easurement (mass/volume)Ordered By: Paco Sellers on 03-10-2024 Creatinine [Mass/Vol] 0.67 mg/dL 0.55-1.02 [facility] Comment on above: The validity of the calculated GFR & GFRAA in patients over 70 years has not been determined. Clinical correlation is essential. Serum or plasma urea nitroge n measurement (mass/volume)Ordered By: Paco Sellers on 03-10-2024 Urea nitrogen [Mass/Vol] 9 mg/dL 7-18 [facility] Sodium levelOrdered By: Paco Sellers on 03-10-2024 Sodium [Moles/Vol] 137 mmol/L 136-145 [facility] White blood cell (WBC) count Ordered By: Paco Sellers on 03-10-2024 WBC (Bld) [#/Vol] 10.8 10*3/uL 4.4-11.0 [facility] Basic Metabolic Profile (BMP )on 02-26-2024 BUN/CRE 16.1 RATIO Normal 10-20 [facility] Comment on above: Performed By: #### L 500.2500 ####[facility] [address] [place], [address] CA,Total 9.7 mg/dL Normal 8.5-10.1 [facility] Comment on above: Performed By: #### L 500.2500 ####[facility] [address] [place], [address] Chloride [Moles/Vol] 106 mmol/L Normal 98-107 [facility] Comment on above: Performed By: #### L 500.2500 ####[facility] [address] [place], [address] CO2 [Moles/Vol] 27.0 mmol/L Normal 21.0-32.0 [facility] Comment on above: Performed By: #### L 500.2500 ####[facility] [address] [place], [address] Creatinine [Mass/Vol] 0.62 mg/dL Normal 0.55-1.02 [facility] Comment on above: Result Comment: The validity of the calculated GFR GFRAA in patients over70 years has not been determined. Clinical correlation isessential. Performed By: #### L 500.2500 ####[facility] [address] [place], [address] EST GFR - AA 125 mL/min Normal >60 [facility] Comment on above: Result Comment: Afri can Gabonese GFR Calc Performed By: #### L 500.2500 ####[facility] [address] [place], [address] GAP 6 Normal 5-15 [facility] Comment on above: Performed By: #### L 500.2500 ####[facility] [address] [place], [address] GFR/1.73 sq M.predicted among non-blacks MDRD (S/P/Bld) [Vol rate/Area] 103 mL/min/{1.73_m2} Normal >60 [facility] Comment on above: Result Comment: Non- GFR Calc Performed By: #### L 500.2500 ####[facility] [address] [place], [address] Glucose [Mass/Vol] 152 mg/dL High 74-106 [facility] Comment on above: Result Comment: Fast ing Glucose result greater than or equal to 126 mg/dLsuggests DIABETES MELLITUS per A.D.A. criteria. Performed By: #### L 500.2500 ####[facility] [address] [place], [address] Potassium [Moles/Vol] 4.2 mmol/L Normal 3.5-5.1 [facility] Comment on above: Performed By: #### L 500.2500 ####[facility] [address] [place], [address] Sodium [Moles/Vol] 139 mmol/L Normal 136-145 [facility] Comment on above: Performed By: #### L 500.2500 ####[facility] [address] [place], [address] Urea nitrogen [Mass/Vol] 10 mg/dL Normal 7-18 [facility] Comment on above: Performed By: #### L 500.2500 ####[facility] [address] [place], [address] Blood urea nitrogen (BUN)/cr eatinine ratioOrdered By: Ana Rosa Oquendo on 02-26-2024 Urea nitrogen/Creatinine [Mass ratio] 16.1 mg/mg 10-20 [facility] Carbon dioxide measurementOr dered By: Ana Rosa Oquendo on 02-26-2024 CO2 [Moles/Vol] 27.0 mmol/L 21.0-32.0 [facility] Cardiology Visit Reporton Cardiology Visit Report Normal [facility] Chloride measurementOrdered By: Ana Rosa Oquendo on 02-26-2024 Chloride [Moles/Vol] 106 mmol/L 98-107 [facility] Estimated glomerular filtrat ion rate (GFR) AmericanOrdered By: Ana Rosa Oquendo on 02-26-2024 Estimated GFR (MDRD) Amer 125 mL/min >60 [facility] Comment on above: GFR Calc Glomerular filtration rate ( GFR) estimationOrdered By: Ana Rosa Oquendo on 02-26-2024 Estimated GFR (MDRD) Non-Af Amer 103 mL/min >60 [facility] Comment on above: Non- GFR Calc Glucose measurementOrdered B y: Ana Rosa Oquendo on 02-26-2024 Glucose [Mass/Vol] 152 mg/dL High 74-106 [facility] Comment on above: Fasting Glucose resu lt greater than or equal to 126 mg/dL suggests DIABETES MELLITUS per A.D.A. criteria. Potassium measurementOrdered By: Ana Rosa Oquendo on 02-26-2024 Potassium [Moles/Vol] 4.2 mmol/L 3.5-5.1 [facility] Serum anion gap measurementO rdered By: Ana Rosa Oquendo on 02-26-2024 Anion gap [Moles/Vol] 6 mmol/L 5-15 [facility] Serum or plasma calcium aminta urement (mass/volume)Ordered By: Ana Rosa Oquendo on 02-26-2024 Calcium [Mass/Vol] 9.7 mg/dL 8.5-10.1 [facility] Serum or plasma creatinine m easurement (mass/volume)Ordered By: Ana Rosa Oquendo on 02-26-2024 Creatinine [Mass/Vol] 0.62 mg/dL 0.55-1.02 [facility] Comment on above: The validity of the calculated GFR & GFRAA in patients over 70 years has not been determined. Clinical correlation is essential. Serum or plasma urea nitroge n measurement (mass/volume)Ordered By: Ana Rosa Oquendo on 02-26-2024 Urea nitrogen [Mass/Vol] 10 mg/dL 7-18 [facility] Sodium levelOrdered By: J Carlos Oquendo on 02-26-2024 Sodium [Moles/Vol] 139 mmol/L 136-145 [facility] 12 Lead EKGon 02-09-2024 12 Lead EKG Normal [facility] 12 Lead EKG Normal [facility] 25-PK-Ctovtpz DOrdered By: Che Greco on 02-09-2024 Vitamin D 25-Hydroxy 72.0 ng/mL [facility] Comment on above: Vitamin D 25(OH) Sta tus Range Deficiency <20 ng/mL (50nmol/L) Insufficiency 20 - 30 ng/mL (50 - 75 nmol/L) Sufficiency 30 - 100 ng/mL (75 - 250 nmol/L) Toxicity >100 ng/mL (>250 nmol/L) Absolute neutrophil countOrd ered By: Gustabo العلي on 02-09-2024 Neutrophils (Bld) [#/Vol] 5.4 10*3/uL 2.0-7.7 [facility] Absolute neutrophil countOrd ered By: Paul Greco on 02-09-2024 Neutrophils (Bld) [#/Vol] 6.1 10*3/uL 2.0-7.7 [facility] Albumin to globulin ratioOrd ered By: Paul Greco on 02-09-2024 Albumin/Globulin [Mass ratio] 1.0 {ratio} 0.9-2.4 [facility] Basic Metabolic Profile (BMP )on 02-09-2024 BUN/CRE 16.2 RATIO Normal 10- [facility] Comment on above: Order Comment: 1Y Performed By: #### L 500.2500, L501.5425, L300.3900, L100.0100 ####[facility] [address] [place], [address] CA,Total 9.1 mg/dL Normal 8.5-10.1 [facility] Comment on above: Order Comment: 1Y Performed By: #### L 500.2500, L501.5425, L300.3900, L100.0100 ####[facility] [address] [place], [address] Chloride [Moles/Vol] 110 mmol/L High 98-107 [facility] Comment on above: Order Comment: 1Y Performed By: #### L 500.2500, L501.5425, L300.3900, L100.0100 ####[facility] [address] [place], [address] CO2 [Moles/Vol] 23.0 mmol/L Normal 21.0-32.0 [facility] Comment on above: Order Comment: 1Y Performed By: #### L 500.2500, L501.5425, L300.3900, L100.0100 ####[facility] [address] [place], [address] Creatinine [Mass/Vol] 0.62 mg/dL Normal 0.55-1.02 [facility] Comment on above: Order Comment: 1Y Result Comment: The validity of the calculated GFR GFRAA in patients over70 years has not been determined. Clinical correlation isessential. Performed By: #### L 500.2500, L501.5425, L300.3900, L100.0100 ####[facility] [address] [place], [address] ECRCL 91.87 ml/min Normal [facility] Comment on above: Order Comment: 1Y Performed By: #### L 500.2500, L501.5425, L300.3900, L100.0100 ####[facility] [address] [place], [address] EST GFR - AA 125 mL/min Normal >60 [facility] Comment on above: Order Comment: 1Y Result Comment: Afri can [place]onese GFR Calc Performed By: #### L 500.2500, L501.5425, L300.3900, L100.0100 ####[facility] [address] [place], [address] GAP 9 Normal 5-15 [facility] Comment on above: Order Comment: 1Y Performed By: #### L 500.2500, L501.5425, L300.3900, L100.0100 ####[facility] [address] [place], [address] GFR/1.73 sq M.predicted among non-blacks MDRD (S/P/Bld) [Vol rate/Area] 104 mL/min/{1.73_m2} Normal >60 [facility] Comment on above: Order Comment: 1Y Result Comment: Non- GFR Calc Performed By: #### L 500.2500, L501.5425, L300.3900, L100.0100 ####[facility] [address] [place], [address] Glucose [Mass/Vol] 147 mg/dL High 74-106 [facility] Comment on above: Order Comment: 1Y Result Comment: Fast ing Glucose result greater than or equal to 126 mg/dLsuggests DIABETES MELLITUS per A.D.A. criteria. Performed By: #### L 500.2500, L501.5425, L300.3900, L100.0100 ####[facility] [address] [place], [address] Potassium [Moles/Vol] 3.0 mmol/L Low 3.5-5.1 [facility] Comment on above: Order Comment: 1Y Performed By: #### L 500.2500, L501.5425, L300.3900, L100.0100 ####[facility] [address] [place], [address] Sodium [Moles/Vol] 141 mmol/L Normal 136-145 [facility] Comment on above: Order Comment: 1Y Performed By: #### L 500.2500, L501.5425, L300.3900, L100.0100 ####[facility] [address] [place], [address] Urea nitrogen [Mass/Vol] 10 mg/dL Normal 7-18 [facility] Comment on above: Order Comment: 1Y Performed By: #### L 500.2500, L501.5425, L300.3900, L100.0100 ####[facility] [address] [place], [address] Basophil percentageOrdered B y: Gustabo العلي on 02-09-2024 Basophils/100 WBC (Bld) 0.5 % 0-1 [facility] Basophil percentageOrdered B y: Paul Greco on 02-09-2024 Basophils/100 WBC (Bld) 0.5 % 0-1 [facility] Bilirubin, totalOrdered By: Paul Greco on 02-09-2024 Bilirubin [Mass/Vol] 0.80 mg/dL 0.20-1.00 [facility] Comment on above: For patients on eltr ombopag therapy, use of Dimension [place] TBIL is not recommended. Blood urea nitrogen (BUN)/cr eatinine ratioOrdered By: Gustabo العلي on 02-09-2024 Urea nitrogen/Creatinine [Mass ratio] 16.2 mg/mg 12-23 [facility] Blood urea nitrogen (BUN)/cr eatinine ratioOrdered By: Paul Greco on 02-09-2024 Urea nitrogen/Creatinine [Mass ratio] 13.1 mg/mg 12-23 [facility] CBC W/Diff, Automatedon Absolute Lymph 1.50 X10 3/uL Normal 0.83-4.51 [facility] Comment on above: Performed By: #### L 500.2500, L501.5425, L300.3900, L100.0100 ####[facility] [address] [place], [address] Absolute Neut 5.4 X10 3/uL Normal 2.0-7.7 [facility] Comment on above: Performed By: #### L 500.2500, L501.5425, L300.3900, L100.0100 ####[facility] [address] [place], [address] Basophils/100 WBC (Bld) 0.5 % Normal 0-1 [facility] Comment on above: Performed By: #### L 500.2500, L501.5425, L300.3900, L100.0100 ####[facility] [address] [place], [address] Eosinophils/100 WBC (Bld) 1.1 % Normal 0-5 [facility] Comment on above: Performed By: #### L 500.2500, L501.5425, L300.3900, L100.0100 ####[facility] [address] [place], [address] Erythrocyte distribution width (RBC) [Ratio] 19.0 % High 11.6-14.6 [facility] Comment on above: Performed By: #### L 500.2500, L501.5425, L300.3900, L100.0100 ####[facility] [address] [place], [address] Hematocrit (Bld) [Volume fraction] 37.5 % Normal 37-47 [facility] Comment on above: Performed By: #### L 500.2500, L501.5425, L300.3900, L100.0100 ####[facility] [address] [place], [address] Hemoglobin (Bld) [Mass/Vol] 11.7 g/dL Low 12.0-15.0 [facility] Comment on above: Performed By: #### L 500.2500, L501.5425, L300.3900, L100.0100 ####[facility] [address] [place], [address] IG% 0.400 Normal 0.0-0.9 [facility] Comment on above: Result Comment: IG% - Immature Granulocytes (promyelocytes, myelocytes andmetamyelocytes) > 1% indicates that a LEFT SHIFT is Present. Performed By: #### L 500.2500, L501.5425, L300.3900, L100.0100 ####[facility] [address] [place], [address] Lymphocytes/100 WBC (Bld) 18.8 % Low 19-41 [facility] Comment on above: Performed By: #### L 500.2500, L501.5425, L300.3900, L100.0100 ####[facility] [address] [place], [address] MCH (RBC) [Entitic mass] 25.3 pg Low 27.0-32.0 [facility] Comment on above: Performed By: #### L 500.2500, L501.5425, L300.3900, L100.0100 ####[facility] [address] [place], [address] MCHC (RBC) [Mass/Vol] 31.2 g/dL Low 32-36 [facility] Comment on above: Performed By: #### L 500.2500, L501.5425, L300.3900, L100.0100 ####[facility] [address] [place], [address] MCV (RBC) [Entitic vol] 81.2 fL Normal 81-99 [facility] Comment on above: Performed By: #### L 500.2500, L501.5425, L300.3900, L100.0100 ####[facility] [address] [place], [address] Monocytes/100 WBC (Bld) 12.0 % High 0-10 [facility] Comment on above: Performed By: #### L 500.2500, L501.5425, L300.3900, L100.0100 ####[facility] [address] [place], [address] Neutrophils/100 WBC (Bld) 67.2 % Normal 47-70 [facility] Comment on above: Performed By: #### L 500.2500, L501.5425, L300.3900, L100.0100 ####[facility] [address] [place], [address] Nucleated RBC (Bld) [#/Vol] 0 10*3/uL Normal 0-5 [facility] Comment on above: Performed By: #### L 500.2500, L501.5425, L300.3900, L100.0100 ####[facility] [address] [place], [address] Platelet mean volume (Bld) [Entitic vol] 10.1 fL Normal 6.2-12.0 [facility] Comment on above: Performed By: #### L 500.2500, L501.5425, L300.3900, L100.0100 ####[facility] [address] [place], [address] Platelets (Bld) [#/Vol] 219 10*3/uL Normal 150-450 [facility] Comment on above: Performed By: #### L 500.2500, L501.5425, L300.3900, L100.0100 ####[facility] [address] [place], [address] RBC (Bld) [#/Vol] 4.62 10*6/uL Normal 4.2-5.4 [facility] Comment on above: Performed By: #### L 500.2500, L501.5425, L300.3900, L100.0100 ####[facility] [address] [place], [address] RDW SD 54.4 fl High 35.1-43.9 [facility] Comment on above: Performed By: #### L 500.2500, L501.5425, L300.3900, L100.0100 ####[facility] [address] [place], [address] WBC (Bld) [#/Vol] 8.0 10*3/uL Normal 4.4-11.0 [facility] Comment on above: Performed By: #### L 500.2500, L501.5425, L300.3900, L100.0100 ####[facility] [address] [place], [address] Absolute Lymph 1.61 X10 3/uL Normal 0.83-4.51 [facility] Comment on above: Order Comment: Order Date: 01/11/24Order Info: 0184-1 - CBCD Performed By: #### L 506.1000, L100.0100, L501.9520, L500.4050 ####[facility] [address] [place], [address] Absolute Neut 6.1 X10 3/uL Normal 2.0-7.7 [facility] Comment on above: Order Comment: Order Date: 01/11/24Order Info: 0184-1 - CBCD Performed By: #### L 506.1000, L100.0100, L501.9520, L500.4050 ####[facility] [address] [place], [address] Basophils/100 WBC (Bld) 0.5 % Normal 0-1 [facility] Comment on above: Order Comment: Order Date: 01/11/24Order Info: 0184-1 - CBCD Performed By: #### L 506.1000, L100.0100, L501.9520, L500.4050 ####[facility] [address] [place], [address] Eosinophils/100 WBC (Bld) 1.1 % Normal 0-5 [facility] Comment on above: Order Comment: Order Date: 01/11/24Order Info: 0184-1 - CBCD Performed By: #### L 506.1000, L100.0100, L501.9520, L500.4050 ####[facility] [address] [place], [address] Erythrocyte distribution width (RBC) [Ratio] 19.4 % High 11.6-14.6 [facility] Comment on above: Order Comment: Order Date: 01/11/24Order Info: 0184- - CBCD Performed By: #### L 506.1000, L100.0100, L501.9520, L500.4050 ####[facility] [address] [place], [address] Hematocrit (Bld) [Volume fraction] 39.9 % Normal 37-47 [facility] Comment on above: Order Comment: Order Date: 01/11/24Order Info: 0184- - CBCD Performed By: #### L 506.1000, L100.0100, L501.9520, L500.4050 ####[facility] [address] [place], [address] Hemoglobin (Bld) [Mass/Vol] 12.2 g/dL Normal 12.0-15.0 [facility] Comment on above: Order Comment: Order Date: 01/11/24Order Info: 0184-1 - CBCD Performed By: #### L 506.1000, L100.0100, L501.9520, L500.4050 ####[facility] [address] [place], [address] IG% 0.500 Normal 0.0-0.9 [facility] Comment on above: Order Comment: Order Date: 01/11/24Order Info: 0184-1 - CBCD Result Comment: IG% - Immature Granulocytes (promyelocytes, myelocytes andmetamyelocytes) > 1% indicates that a LEFT SHIFT is Present. Performed By: #### L 506.1000, L100.0100, L501.9520, L500.4050 ####[facility] [address] [place], [address] Lymphocytes/100 WBC (Bld) 18.4 % Low 19-41 [facility] Comment on above: Order Comment: Order Date: 01/11/24Order Info: 0184-1 - CBCD Performed By: #### L 506.1000, L100.0100, L501.9520, L500.4050 ####[facility] [address] [place], [address] MCH (RBC) [Entitic mass] 25.1 pg Low 27.0-32.0 [facility] Comment on above: Order Comment: Order Date: 01/11/24Order Info: 0184-1 - CBCD Performed By: #### L 506.1000, L100.0100, L501.9520, L500.4050 ####[facility] [address] [place], [address] MCHC (RBC) [Mass/Vol] 30.6 g/dL Low 32-36 [facility] Comment on above: Order Comment: Order Date: 01/11/24Order Info: 0184-1 - CBCD Performed By: #### L 506.1000, L100.0100, L501.9520, L500.4050 ####[facility] [address] [place], [address] MCV (RBC) [Entitic vol] 82.1 fL Normal 81-99 [facility] Comment on above: Order Comment: Order Date: 01/11/24Order Info: 0184-1 - CBCD Performed By: #### L 506.1000, L100.0100, L501.9520, L500.4050 ####[facility] [address] [place], [address] Monocytes/100 WBC (Bld) 10.5 % High 0-10 [facility] Comment on above: Order Comment: Order Date: 01/11/24Order Info: 0184-1 - CBCD Performed By: #### L 506.1000, L100.0100, L501.9520, L500.4050 ####[facility] [address] [place], [address] Neutrophils/100 WBC (Bld) 69.0 % Normal 47-70 [facility] Comment on above: Order Comment: Order Date: 01/11/24Order Info: 0184-1 - CBCD Performed By: #### L 506.1000, L100.0100, L501.9520, L500.4050 ####[facility] [address] [place], [address] Nucleated RBC (Bld) [#/Vol] 0 10*3/uL Normal 0-5 [facility] Comment on above: Order Comment: Order Date: 01/11/24Order Info: 0184-1 - CBCD Performed By: #### L 506.1000, L100.0100, L501.9520, L500.4050 ####[facility] [address] [place], [address] Platelet mean volume (Bld) [Entitic vol] 10.5 fL Normal 6.2-12.0 [facility] Comment on above: Order Comment: Order Date: 01/11/24Order Info: 0184-1 - CBCD Performed By: #### L 506.1000, L100.0100, L501.9520, L500.4050 ####[facility] [address] [place], [address] Platelets (Bld) [#/Vol] 246 10*3/uL Normal 150-450 [facility] Comment on above: Order Comment: Order Date: 01/11/24Order Info: 0184- - CBCD Performed By: #### L 506.1000, L100.0100, L501.9520, L500.4050 ####[facility] [address] [place], [address] RBC (Bld) [#/Vol] 4.86 10*6/uL Normal 4.2-5.4 [facility] Comment on above: Order Comment: Order Date: 01/11/24Order Info: 018- - CBCD Performed By: #### L 506.1000, L100.0100, L501.9520, L500.4050 ####[facility] [address] [place], [address] RDW SD 56.5 fl High 35.1-43.9 [facility] Comment on above: Order Comment: Order Date: 01/11/24Order Info: 0184- - CBCD Performed By: #### L 506.1000, L100.0100, L501.9520, L500.4050 ####[facility] [address] [place], [address] WBC (Bld) [#/Vol] 8.8 10*3/uL Normal 4.4-11.0 [facility] Comment on above: Order Comment: Order Date: 01/11/24Order Info: 0184- - CBCD Performed By: #### L 506.1000, L100.0100, L501.9520, L500.4050 ####[facility] [address] [place], [address] CTA Chest W/WO Contraston CTA Chest W/WO Contrast Normal [facility] Carbon dioxide measurementOr dered By: Gustabo Arreola 02-09-2024 CO2 [Moles/Vol] 23.0 mmol/L 21.0-32.0 [facility] Carbon dioxide measurementOr dered By: Olegbart Greco on 02-09-2024 CO2 [Moles/Vol] 23.0 mmol/L 21.0-32.0 [facility] Chloride measurementOrdered By: Gustabo العلي on 02-09-2024 Chloride [Moles/Vol] 110 mmol/L High 98-107 [facility] Chloride measurementOrdered By: Paul Greco on 02-09-2024 Chloride [Moles/Vol] 107 mmol/L 98-107 [facility] Comprehensive Metabolic Prof ilon 02-09-2024 Albumin [Mass/Vol] 3.8 g/dL Normal 3.2-5.0 [facility] Comment on above: Order Comment: Order Date: 01/11/24Order Info: 0786-1 - CMPOrder Info: 3016-3 - TSH1 Performed By: #### L 506.1000, L100.0100, L501.9520, L500.4050 ####[facility] [address] [place], [address] Albumin/Globulin [Mass ratio] 1.0 {ratio} Normal 0.9-2.4 [facility] Comment on above: Order Comment: Order Date: 01/11/24Order Info: 0786-1 - CMPOrder Info: 3016-3 - TSH1 Performed By: #### L 506.1000, L100.0100, L501.9520, L500.4050 ####[facility] [address] [place], [address] ALK P 77 U/L Normal 45-117 [facility] Comment on above: Order Comment: Order Date: 01/11/24Order Info: 0786-1 - CMPOrder Info: 3016-3 - TSH1 Performed By: #### L 506.1000, L100.0100, L501.9520, L500.4050 ####[facility] [address] [place], [address] ALT [Catalytic activity/Vol] 21 U/L Normal 13-56 [facility] Comment on above: Order Comment: Order Date: 01/11/24Order Info: 0786-1 - CMPOrder Info: 3015-3 - TSH1 Performed By: #### L 506.1000, L100.0100, L501.9520, L500.4050 ####[facility] [address] [place], [address] AST [Catalytic activity/Vol] 12 U/L Low 15-37 [facility] Comment on above: Order Comment: Order Date: 01/11/24Order Info: 785- - CMPOrder Info: 3015-3 - TSH1 Performed By: #### L 506.1000, L100.0100, L501.9520, L500.4050 ####[facility] [address] [place], [address] Bilirubin [Mass/Vol] 0.80 mg/dL Normal 0.20-1.00 [facility] Comment on above: Order Comment: Order Date: 01/11/24Order Info: 0786- - CMPOrder Info: 3015-3 - TSH1 Result Comment: For patients on eltrombopag therapy, use of Dimension [place] TBIL is not recommended. Performed By: #### L 506.1000, L100.0100, L501.9520, L500.4050 ####[facility] [address] [place], [address] BUN/CRE 13.1 RATIO Normal 10-20 [facility] Comment on above: Order Comment: Order Date: 01/11/24Order Info: 0786- - CMPOrder Info: 301- - TSH1 Performed By: #### L 506.1000, L100.0100, L501.9520, L500.4050 ####[facility] [address] [place], [address] CA,Total 9.4 mg/dL Normal 8.5-10.1 [facility] Comment on above: Order Comment: Order Date: 01/11/24Order Info: 0786- - CMPOrder Info: 3016-3 - TSH1 Performed By: #### L 506.1000, L100.0100, L501.9520, L500.4050 ####[facility] [address] [place], [address] Chloride [Moles/Vol] 107 mmol/L Normal 98-107 [facility] Comment on above: Order Comment: Order Date: 01/11/24Order Info: 0786-1 - CMPOrder Info: 3015-05 - TSH1 Performed By: #### L 506.1000, L100.0100, L501.9520, L500.4050 ####[facility] [address] [place], [address] CO2 [Moles/Vol] 23.0 mmol/L Normal 21.0-32.0 [facility] Comment on above: Order Comment: Order Date: 01/11/24Order Info: 0786-1 - CMPOrder Info: 3015-05 - TSH1 Performed By: #### L 506.1000, L100.0100, L501.9520, L500.4050 ####[facility] [address] [place], [address] Creatinine [Mass/Vol] 0.61 mg/dL Normal 0.55-1.02 [facility] Comment on above: Order Comment: Order Date: 01/11/24Order Info: 0786-1 - CMPOrder Info: 3015-05 - TSH1 Result Comment: The validity of the calculated GFR GFRAA in patients over70 years has not been determined. Clinical correlation isessential. Performed By: #### L 506.1000, L100.0100, L501.9520, L500.4050 ####[facility] [address] [place], [address] EST GFR - AA 127 mL/min Normal >60 [facility] Comment on above: Order Comment: Order Date: 01/11/24Order Info: 0786-1 - CMPOrder Info: 3015-05 - TSH1 Result Comment: Afri can [place] GFR Calc Performed By: #### L 506.1000, L100.0100, L501.9520, L500.4050 ####[facility] [address] [place], [address] GAP 10 Normal 5-15 [facility] Comment on above: Order Comment: Order Date: 01/11/24Order Info: 0786-1 - CMPOrder Info: 3015-05 - TSH1 Performed By: #### L 506.1000, L100.0100, L501.9520, L500.4050 ####[facility] [address] [place], [address] GFR/1.73 sq M.predicted among non-blacks MDRD (S/P/Bld) [Vol rate/Area] 105 mL/min/{1.73_m2} Normal >60 [facility] Comment on above: Order Comment: Order Date: 01/11/24Order Info: 0786-1 - CMPOrder Info: 3015-05 - TSH Result Comment: Non- GFR Calc Performed By: #### L 506.1000, L100.0100, L501.9520, L500.4050 ####[facility] [address] [place], [address] Globulin (S) [Mass/Vol] 3.7 g/dL Normal 2.2-4.2 [facility] Comment on above: Order Comment: Order Date: 01/11/24Order Info: 0786-1 - CMPOrder Info: 30108-06 - TSH1 Performed By: #### L 506.1000, L100.0100, L501.9520, L500.4050 ####[facility] [address] [place], [address] Glucose [Mass/Vol] 174 mg/dL High 74-106 [facility] Comment on above: Order Comment: Order Date: 01/11/24Order Info: 0786-1 - CMPOrder Info: 30108-06 - TSH1 Result Comment: Fast ing Glucose result greater than or equal to 126 mg/dLsuggests DIABETES MELLITUS per A.D.A. criteria. Performed By: #### L 506.1000, L100.0100, L501.9520, L500.4050 ####[facility] [address] [place], [address] Potassium [Moles/Vol] 3.1 mmol/L Low 3.5-5.1 [facility] Comment on above: Order Comment: Order Date: 01/11/24Order Info: 0786-1 - CMPOrder Info: 3015-3 - TSH1 Performed By: #### L 506.1000, L100.0100, L501.9520, L500.4050 ####[facility] [address] [place], [address] Sodium [Moles/Vol] 140 mmol/L Normal 136-145 [facility] Comment on above: Order Comment: Order Date: 01/11/24Order Info: 0786- - CMPOrder Info: 3 - TSH1 Performed By: #### L 506.1000, L100.0100, L501.9520, L500.4050 ####[facility] [address] [place], [address] T PROT 7.5 g/dL Normal 6.4-8.2 [facility] Comment on above: Order Comment: Order Date: 01/11/24Order Info: 0786- - CMPOrder Info: 3015-3 - TSH1 Performed By: #### L 506.1000, L100.0100, L501.9520, L500.4050 ####[facility] [address] [place], [address] Urea nitrogen [Mass/Vol] 8 mg/dL Normal 7-18 [facility] Comment on above: Order Comment: Order Date: 01/11/24Order Info: 0786-1 - CMPOrder Info: 3015-3 - TSH1 Performed By: #### L 506.1000, L100.0100, L501.9520, L500.4050 ####[facility] [address] [place], [address] Emergency Department Summary on 02-09-2024 Emergency Department Summary Normal [facility] Eosinophil percentageOrdered By: Gustabo العلي on 02-09-2024 Eosinophils/100 WBC (Bld) 1.1 % 0-5 [facility] Eosinophil percentageOrdered By: Paul Greco on 02-09-2024 Eosinophils/100 WBC (Bld) 1.1 % 0-5 [facility] Erythrocyte distribution wid th ratioOrdered By: Gustabo العلي on 02-09-2024 Erythrocyte distribution width (RBC) [Ratio] 19.0 % High 11.6-14.6 [facility] Erythrocyte distribution wid th ratioOrdered By: Paul Greco on 02-09-2024 Erythrocyte distribution width (RBC) [Ratio] 19.4 % High 11.6-14.6 [facility] Erythrocyte distribution wid th standard deviationOrdered By: Gustabo العلي on 02-09-2024 Erythrocyte distribution width (RBC) [Entitic vol] 54.4 fL High 35.1-43.9 [facility] Erythrocyte distribution wid th standard deviationOrdered By: Paul Greco on 02-09-2024 Erythrocyte distribution width (RBC) [Entitic vol] 56.5 fL High 35.1-43.9 [facility] Estimated glomerular filtrat ion rate (GFR) AmericanOrdered By: Gustabo العلي on 02-09-2024 Estimated GFR (MDRD) Amer 125 mL/min >60 [facility] Comment on above: GFR Calc Estimated glomerular filtrat ion rate (GFR) AmericanOrdered By: Paul Greco on 02-09-2024 Estimated GFR (MDRD) Amer 127 mL/min >60 [facility] Comment on above: GFR Calc Estimation of creatinine debbie aranceOrdered By: Gustabo العلي on 02-09-2024 Estimated Creatinine Clearance Calc 91.87 ml/min [facility] Glomerular filtration rate ( GFR) estimationOrdered By: Gustabo العلي on 02-09-2024 Estimated GFR (MDRD) Non-Af Amer 104 mL/min >60 [facility] Comment on above: Non- GFR Calc Glomerular filtration rate ( GFR) estimationOrdered By: Paul Greco on 02-09-2024 Estimated GFR (MDRD) Non-Af Amer 105 mL/min >60 [facility] Comment on above: Non- GFR Calc Glucose measurementOrdered B y: Gustabo العلي on 02-09-2024 Glucose [Mass/Vol] 147 mg/dL High 74-106 [facility] Comment on above: Fasting Glucose resu lt greater than or equal to 126 mg/dL suggests DIABETES MELLITUS per A.D.A. criteria. Glucose measurementOrdered B y: Paul Greco on 02-09-2024 Glucose [Mass/Vol] 174 mg/dL High 74-106 [facility] Comment on above: Fasting Glucose resu lt greater than or equal to 126 mg/dL suggests DIABETES MELLITUS per A.D.A. criteria. Hematocrit Auto (Bld) [Volum e fraction]Ordered By: Gustabo العلي on 02-09-2024 Hematocrit (Bld) [Volume fraction] 37.5 % [address] [place] [address] Hematocrit Auto (Bld) [Volum e fraction]Ordered By: Paul Greco on 02-09-2024 Hematocrit (Bld) [Volume fraction] 39.9 % [address] [place] [address] Hemoglobin measurementOrdere d By: Gustabo العلي on 02-09-2024 Hemoglobin (Bld) [Mass/Vol] 11.7 g/dL Low 12.0-15.0 [facility] Hemoglobin measurementOrdere d By: Paul Greco on 02-09-2024 Hemoglobin (Bld) [Mass/Vol] 12.2 g/dL 12.0-15.0 [facility] Immature granulocytes/100 WB C Auto (Bld)Ordered By: Gustabo العلي on 02-09-2024 Immature granulocytes/100 WBC (Bld) 0.400 % 0.0-0.9 [facility] Comment on above: IG% - Immature Granu locytes (promyelocytes, myelocytes and metamyelocytes) > 1% indicates that a LEFT SHIFT is Present. Immature granulocytes/100 WB C Auto (Bld)Ordered By: Paul Greco on 02-09-2024 Immature granulocytes/100 WBC (Bld) 0.500 % 0.0-0.9 [facility] Comment on above: IG% - Immature Granu locytes (promyelocytes, myelocytes and metamyelocytes) > 1% indicates that a LEFT SHIFT is Present. International normalized rat io (INR) calculationOrdered By: Gustabo العلي on 02-09-2024 INR Coag (Bld) [Relative time] 1.1 {INR} [facility] L501.4020on 02-09-2024 TROPONIN-I HS 213 pg/mL Invalid Interpretation Code 3.0-54.0 [facility] Comment on above: Order Comment: Order Date: 01/11/24Order Info: 0786-1 - CMPOrder Info: 3016-3 - TSH1 Result Comment: Crit ical Result(s) Called at: 13:41:02 02/09/2024 by:Millicent Hansen. Results read back by same. Please Note: New Test Units and Gender Specific Reference Ranges. For more information see Policy Stat Procedure [place] High Sensitivity Troponin (TNIH) and attachments. Performed By: #### L 501.4020 ####[facility] [address] [place], [place], [address] L501.5425on 02-09-2024 TROPONIN-I HS 214 pg/mL Invalid Interpretation Code 3.0-54.0 [facility] Comment on above: Order Comment: 1Y Result Comment: Crit ical Result(s) Called at: 17:46:00 02/09/2024 by: BERNARDINO. Results read back by Dr. العلي Please Note: New Test Units and Gender Specific Reference Ranges. For more information see Policy Stat Procedure [place] High Sensitivity Troponin (TNIH) and attachments. Performed By: #### L 500.2500, L501.5425, L300.3900, L100.0100 ####[facility] [address] [place], [address] Laboratory - Chemistry and C hemistry - challengeOrdered By: Paul Greco on 02-09-2024 AST [Catalytic activity/Vol] 12 U/L Low 15-37 [facility] Lymphocytes Auto (Unsp spec) [#/Vol]Ordered By: Gustabo العلي on 02-09-2024 Lymphocytes (Bld) [#/Vol] 1.50 10*3/uL 0.83-4.51 [facility] Lymphocytes Auto (Unsp spec) [#/Vol]Ordered By: Paul Greco on 02-09-2024 Lymphocytes (Bld) [#/Vol] 1.61 10*3/uL 0.83-4.51 [facility] Lymphocytes/100 WBC Auto (Un sp spec)Ordered By: Gustabo العلي on 02-09-2024 Lymphocytes/100 WBC (Bld) 18.8 % Low 19-41 [facility] Lymphocytes/100 WBC Auto (Un sp spec)Ordered By: Paul Greco on 02-09-2024 Lymphocytes/100 WBC (Bld) 18.4 % Low 19-41 [facility] MCV (mean corpuscular volume ) determinationOrdered By: Gustabo العلي on 02-09-2024 MCV (RBC) [Entitic vol] 81.2 fL 81-99 [facility] MCV (mean corpuscular volume ) determinationOrdered By: Paul Greco on 02-09-2024 MCV (RBC) [Entitic vol] 82.1 fL 81-99 [facility] Mean corpuscular hemoglobin (MCH) determinationOrdered By: Gustabo العلي on 02-09-2024 MCH (RBC) [Entitic mass] 25.3 pg Low 27.0-32.0 [facility] Mean corpuscular hemoglobin (MCH) determinationOrdered By: Paul Greco on 02-09-2024 MCH (RBC) [Entitic mass] 25.1 pg Low 27.0-32.0 [facility] Mean corpuscular hemoglobin concentration (MCHC) determinationOrdered By: Gustabo العلي on 02-09-2024 MCHC (RBC) [Mass/Vol] 31.2 g/dL Low 32-36 [facility] Mean corpuscular hemoglobin concentration (MCHC) determinationOrdered By: Paul Greco on 02-09-2024 MCHC (RBC) [Mass/Vol] 30.6 g/dL Low 32-36 [facility] Mean platelet volume determi nationOrdered By: Gustabo العلي on 02-09-2024 Platelet mean volume (Bld) [Entitic vol] 10.1 fL 6.2-12.0 [facility] Mean platelet volume determi nationOrdered By: Paul Greco on 02-09-2024 Platelet mean volume (Bld) [Entitic vol] 10.5 fL 6.2-12.0 [facility] Monocyte percentageOrdered B y: Gustabo العلي on 02-09-2024 Monocytes/100 WBC (Bld) 12.0 % High 0-10 [facility] Monocyte percentageOrdered B y: Paul Greco on 02-09-2024 Monocytes/100 WBC (Bld) 10.5 % High 0-10 [facility] Neutrophil percentageOrdered By: Gustabo العلي on 02-09-2024 Neutrophils/100 WBC (Bld) 67.2 % 47-70 [facility] Neutrophil percentageOrdered By: Paul Greco on 02-09-2024 Neutrophils/100 WBC (Bld) 69.0 % 47-70 [facility] Nucleated red blood cell per centageOrdered By: Gustabo العلي on 02-09-2024 Nucleated RBC/100 WBC (Bld) [Ratio] 0 % 0-5 [facility] Nucleated red blood cell per centageOrdered By: Paul Greco on 02-09-2024 Nucleated RBC/100 WBC (Bld) [Ratio] 0 % 0-5 [facility] Platelet countOrdered By: Velasquez العلي on 02-09-2024 Platelets (Bld) [#/Vol] 219 10*3/uL 150-450 [facility] Platelet countOrdered By: Julianna Greco on 02-09-2024 Platelets (Bld) [#/Vol] 246 10*3/uL 150-450 [facility] Potassium measurementOrdered By: Gustabo العلي on 02-09-2024 Potassium [Moles/Vol] 3.0 mmol/L Low 3.5-5.1 [facility] Potassium measurementOrdered By: Paul Greco on 02-09-2024 Potassium [Moles/Vol] 3.1 mmol/L Low 3.5-5.1 [facility] Prothrombin Time w/INRon INR Coag (PPP) [Relative time] 1.1 {INR} Normal [facility] Comment on above: Performed By: #### L 500.2500, L501.5425, L300.3900, L100.0100 ####[facility] [address] [place], [address] PT Coag (PPP) [Time] 13.9 s Normal 11.7-14.9 [facility] Comment on above: Performed By: #### L 500.2500, L501.5425, L300.3900, L100.0100 ####[facility] [address] [place], [address] Prothrombin timeOrdered By: Gustabo العلي on 02-09-2024 PT Coag (PPP) [Time] 13.9 s 11.7-14.9 [facility] RBC Auto (Bld) [#/Vol]Ordere d By: Gustabo العلي on 02-09-2024 RBC (Bld) [#/Vol] 4.62 10*6/uL 4.2-5.4 [facility] RBC Auto (Bld) [#/Vol]Ordere d By: Paul Greco on 02-09-2024 RBC (Bld) [#/Vol] 4.86 10*6/uL 4.2-5.4 [facility] Serum anion gap measurementO rdered By: Gustabo العلي on 02-09-2024 Anion gap [Moles/Vol] 9 mmol/L 07-18 [facility] Serum anion gap measurementO rdered By: Paul Greco on 02-09-2024 Anion gap [Moles/Vol] 10 mmol/L - [facility] Serum globulin measurementOr dered By: Paul Greco on 02-09-2024 Globulin (S) [Mass/Vol] 3.7 g/dL 2.2-4.2 [facility] Serum or plasma alanine mesa otransferase (ALT) measurementOrdered By: Paul Greco on 02-09-2024 ALT [Catalytic activity/Vol] 21 U/L - [facility] Serum or plasma albumin aminta urement (mass/volume)Ordered By: Paul Greco on 02-09-2024 Albumin [Mass/Vol] 3.8 g/dL 3.2-5.0 [facility] Serum or plasma alkaline arcelia sphatase measurementOrdered By: Paul Greco on 02-09-2024 ALP [Catalytic activity/Vol] 77 U/L 45-117 [facility] Serum or plasma calcium aminta urement (mass/volume)Ordered By: Gustabo العلي on 02-09-2024 Calcium [Mass/Vol] 9.1 mg/dL 8.5-10.1 [facility] Serum or plasma calcium aminta urement (mass/volume)Ordered By: Paul Greco on 02-09-2024 Calcium [Mass/Vol] 9.4 mg/dL 8.5-10.1 [facility] Serum or plasma creatinine m easurement (mass/volume)Ordered By: Gustabo العلي on 02-09-2024 Creatinine [Mass/Vol] 0.62 mg/dL 0.55-1.02 [facility] Comment on above: The validity of the calculated GFR & GFRAA in patients over 70 years has not been determined. Clinical correlation is essential. Serum or plasma creatinine m easurement (mass/volume)Ordered By: Paul Greco on 02-09-2024 Creatinine [Mass/Vol] 0.61 mg/dL 0.55-1.02 [facility] Comment on above: The validity of the calculated GFR & GFRAA in patients over 70 years has not been determined. Clinical correlation is essential. Serum or plasma urea nitroge n measurement (mass/volume)Ordered By: Gustabo العلي on 02-09-2024 Urea nitrogen [Mass/Vol] 10 mg/dL 7-18 [facility] Serum or plasma urea nitroge n measurement (mass/volume)Ordered By: Paul Greco on 02-09-2024 Urea nitrogen [Mass/Vol] 8 mg/dL 7-18 [facility] Sodium levelOrdered By: Gustabo العلي on 02-09-2024 Sodium [Moles/Vol] 141 mmol/L 136-145 [facility] Sodium levelOrdered By: Oleg Greco on 02-09-2024 Sodium [Moles/Vol] 140 mmol/L 136-145 [facility] TSH QnOrdered By: Paul fabian on 02-09-2024 Thyroid Stimulating Hormone (TSH) 1.820 uIU/mL 0.358-3.740 [facility] Thyroid Stim Hormone (TSH)on 02-09-2024 TSH 1.820 uIU/mL Normal 0.358-3.740 [facility] Comment on above: Order Comment: Order Date: 01/11/24Order Info: [id number] - CMPOrder Info: [id number] - TSH1 Performed By: #### L 506.1000, L100.0100, L501.9520, L500.4050 ####[facility] [address] [place], [place], [id number] Total proteinOrdered By: Renate Greco on 02-09-2024 Protein [Mass/Vol] 7.5 g/dL 6.4-8.2 [facility] Tropinin I.cardiac panel Hig h sensitivity methodOrdered By: Gustabo العلي on 02-09-2024 Troponin I High Sensitivity 214 pg/mL High 3.0-54.0 [facility] Comment on above: Critical Result(s) C alled at: 17:46:00 02/09/2024 by: KATHIA STONE. Results read back by Dr. العلي Please Note: New Test Units and Gender Specific Reference Ranges. For more information see Policy Stat Procedure [place] High Sensitivity Troponin (TNIH) and attachments. Troponin IOrdered By: Paul Greco on 02-09-2024 Troponin I High Sensitivity 213 pg/mL High 3.0-54.0 [facility] Comment on above: Critical Result(s) C alled at: 13:41:02 02/09/2024 by: Millicent Hansen. Results read back by same. Please Note: New Test Units and Gender Specific Reference Ranges. For more information see Policy Stat Procedure [place] High Sensitivity Troponin (TNIH) and attachments. Vitamin D,25 Hydroxyon 02-08 Vitamin D 25-OH 72.0 ng/mL Normal [facility] Comment on above: Order Comment: Order Date: 01/11/24Order Info: [id number] - VITD25 Result Comment: Magdalena min D 25(OH) Status Range Deficiency <20 ng/mL (50nmol/L) Insufficiency 20 - 30 ng/mL (50 - 75 nmol/L) Sufficiency 30 - 100 ng/mL (75 - 250 nmol/L) Toxicity >100 ng/mL (>250 nmol/L) Performed By: #### L 506.1000, L100.0100, L501.9520, L500.4050 ####[facility] [address] [place], [place], [id number] White blood cell (WBC) count Ordered By: Gustabo العلي on 02-09-2024 WBC (Bld) [#/Vol] 8.0 10*3/uL 4.4-11.0 [facility] White blood cell (WBC) count Ordered By: Paul Greco on 02-09-2024 WBC (Bld) [#/Vol] 8.8 10*3/uL 4.4-11.0 [facility] Gastroenterology Visit Repor ton 02-06-2024 Gastroenterology Visit Report Normal [facility] Absolute neutrophil countOrd ered By: Xiang Rogers on 01-31-2024 Neutrophils (Bld) [#/Vol] 2.4 10*3/uL 2.0-7.7 [facility] Albumin to globulin ratioOrd ered By: Xiang Rogers on 01-31-2024 Albumin/Globulin [Mass ratio] 1.1 {ratio} 0.9-2.4 [facility] BNP (brain natriuretic pepti de measurement)Ordered By: Xiang Rogers on 01-31-2024 Natriuretic peptide B (Bld) [Mass/Vol] 55.2 pg/mL 0-100 [facility] BNP,B-Type NATRIURETIC PEPTI Kem 01-31-2024 Natriuretic peptide B (Bld) [Mass/Vol] 55.2 pg/mL Normal 0-100 [facility] Comment on above: Performed By: #### L 500.4050, L100.0100, L503.6620 ####[facility] [address] [place], [address] Basophil percentageOrdered B y: Xiang Rogers on 01-31-2024 Basophils/100 WBC (Bld) 1.0 % 0-1 [facility] Bilirubin, totalOrdered By: Xiang Rogers on 01-31-2024 Bilirubin [Mass/Vol] 0.50 mg/dL 0.20-1.00 [facility] Comment on above: For patients on eltr ombopag therapy, use of Dimension [place] TBIL is not recommended. Blood urea nitrogen (BUN)/cr eatinine ratioOrdered By: Xiang Rogers on 01-31-2024 Urea nitrogen/Creatinine [Mass ratio] 12.9 mg/mg - [facility] CBC W/Diff, Automatedon 01-05 Absolute Lymph 1.73 X10 3/uL Normal 0.83-4.51 [facility] Comment on above: Performed By: #### L 500.4050, L100.0100, L503.6620 ####[facility] [address] [place], [address] Absolute Neut 2.4 X10 3/uL Normal 2.0-7.7 [facility] Comment on above: Performed By: #### L 500.4050, L100.0100, L503.6620 ####[facility] [address] [place], [address] Basophils/100 WBC (Bld) 1.0 % Normal 0-1 [facility] Comment on above: Performed By: #### L 500.4050, L100.0100, L503.6620 ####[facility] [address] [place], [address] Eosinophils/100 WBC (Bld) 3.3 % Normal 0-5 [facility] Comment on above: Performed By: #### L 500.4050, L100.0100, L503.6620 ####[facility] [address] [place], [address] Erythrocyte distribution width (RBC) [Ratio] 20.0 % High 11.6-14.6 [facility] Comment on above: Performed By: #### L 500.4050, L100.0100, L503.6620 ####[facility] [address] [place], [address] Hematocrit (Bld) [Volume fraction] 38.6 % Normal 37-47 [facility] Comment on above: Performed By: #### L 500.4050, L100.0100, L503.6620 ####[facility] [address] [place], [address] Hemoglobin (Bld) [Mass/Vol] 11.7 g/dL Low 12.0-15.0 [facility] Comment on above: Performed By: #### L 500.4050, L100.0100, L503.6620 ####[facility] [address] [place], [address] IG% 0.200 Normal 0.0-0.9 [facility] Comment on above: Result Comment: IG% - Immature Granulocytes (promyelocytes, myelocytes andmetamyelocytes) > 1% indicates that a LEFT SHIFT is Present. Performed By: #### L 500.4050, L100.0100, L503.6620 ####[facility] [address] [place], [address] Lymphocytes/100 WBC (Bld) 35.6 % Normal 19-41 [facility] Comment on above: Performed By: #### L 500.4050, L100.0100, L503.6620 ####[facility] [address] [place], [address] MCH (RBC) [Entitic mass] 24.8 pg Low 27.0-32.0 [facility] Comment on above: Performed By: #### L 500.4050, L100.0100, L503.6620 ####[facility] [address] [place], [address] MCHC (RBC) [Mass/Vol] 30.3 g/dL Low 32-36 [facility] Comment on above: Performed By: #### L 500.4050, L100.0100, L503.6620 ####[facility] [address] [place], [address] MCV (RBC) [Entitic vol] 81.8 fL Normal 81-99 [facility] Comment on above: Performed By: #### L 500.4050, L100.0100, L503.6620 ####[facility] [address] [place], [address] Monocytes/100 WBC (Bld) 9.9 % Normal 0-10 [facility] Comment on above: Performed By: #### L 500.4050, L100.0100, L503.6620 ####[facility] [address] [place], [address] Neutrophils/100 WBC (Bld) 50.0 % Normal 47-70 [facility] Comment on above: Performed By: #### L 500.4050, L100.0100, L503.6620 ####[facility] [address] [place], [address] Nucleated RBC (Bld) [#/Vol] 0 10*3/uL Normal 0-5 [facility] Comment on above: Performed By: #### L 500.4050, L100.0100, L503.6620 ####[facility] [address] [place], [address] Platelet mean volume (Bld) [Entitic vol] 9.9 fL Normal 6.2-12.0 [facility] Comment on above: Performed By: #### L 500.4050, L100.0100, L503.6620 ####[facility] [address] [place], [address] Platelets (Bld) [#/Vol] 268 10*3/uL Normal 150-450 [facility] Comment on above: Performed By: #### L 500.4050, L100.0100, L503.6620 ####[facility] [address] [place], [address] RBC (Bld) [#/Vol] 4.72 10*6/uL Normal 4.2-5.4 [facility] Comment on above: Performed By: #### L 500.4050, L100.0100, L503.6620 ####[facility] [address] [place], [address] RDW SD 58.1 fl High 35.1-43.9 [facility] Comment on above: Performed By: #### L 500.4050, L100.0100, L503.6620 ####[facility] [address] [place], [address] WBC (Bld) [#/Vol] 4.9 10*3/uL Normal 4.4-11.0 [facility] Comment on above: Performed By: #### L 500.4050, L100.0100, L503.6620 ####[facility] [address] [place], [address] Carbon dioxide measurementOr dered By: Xiang Rogers on 01-31-2024 CO2 [Moles/Vol] 31.0 mmol/L 21.0-32.0 [facility] Chloride measurementOrdered By: Xiang Rogers on 01-31-2024 Chloride [Moles/Vol] 105 mmol/L 98-107 [facility] Comprehensive Metabolic Prof ilon 01-31-2024 Albumin [Mass/Vol] 3.6 g/dL Normal 3.2-5.0 [facility] Comment on above: Performed By: #### L 500.4050, L100.0100, L503.6620 ####[facility] [address] [place], [address] Albumin/Globulin [Mass ratio] 1.1 {ratio} Normal 0.9-2.4 [facility] Comment on above: Performed By: #### L 500.4050, L100.0100, L503.6620 ####[facility] [address] [place], [address] ALK P 107 U/L Normal 45-117 [facility] Comment on above: Performed By: #### L 500.4050, L100.0100, L503.6620 ####[facility] [address] [place], [address] ALT [Catalytic activity/Vol] 23 U/L Normal 13-56 [facility] Comment on above: Performed By: #### L 500.4050, L100.0100, L503.6620 ####[facility] [address] [place], [address] AST [Catalytic activity/Vol] 18 U/L Normal 15-37 [facility] Comment on above: Performed By: #### L 500.4050, L100.0100, L503.6620 ####[facility] [address] [place], [address] Bilirubin [Mass/Vol] 0.50 mg/dL Normal 0.20-1.00 [facility] Comment on above: Result Comment: For patients on eltrombopag therapy, use of Dimension [place] TBIL is not recommended. Performed By: #### L 500.4050, L100.0100, L503.6620 ####[facility] [address] [place], [address] BUN/CRE 12.9 RATIO Normal 10-20 [facility] Comment on above: Performed By: #### L 500.4050, L100.0100, L503.6620 ####[facility] [address] [place], [address] CA,Total 9.6 mg/dL Normal 8.5-10.1 [facility] Comment on above: Performed By: #### L 500.4050, L100.0100, L503.6620 ####[facility] [address] [place], [address] Chloride [Moles/Vol] 105 mmol/L Normal 98-107 [facility] Comment on above: Performed By: #### L 500.4050, L100.0100, L503.6620 ####[facility] [address] [place], [address] CO2 [Moles/Vol] 31.0 mmol/L Normal 21.0-32.0 [facility] Comment on above: Performed By: #### L 500.4050, L100.0100, L503.6620 ####[facility] [address] [place], [address] Creatinine [Mass/Vol] 0.70 mg/dL Normal 0.55-1.02 [facility] Comment on above: Result Comment: The validity of the calculated GFR GFRAA in patients over70 years has not been determined. Clinical correlation isessential. Performed By: #### L 500.4050, L100.0100, L503.6620 ####[facility] [address] [place], [address] EST GFR - AA 109 mL/min Normal >60 [facility] Comment on above: Result Comment: Afri can [place] GFR Calc Performed By: #### L 500.4050, L100.0100, L503.6620 ####[facility] [address] [place], [address] GAP 6 Normal 5-15 [facility] Comment on above: Performed By: #### L 500.4050, L100.0100, L503.6620 ####[facility] [address] [place], [address] GFR/1.73 sq M.predicted among non-blacks MDRD (S/P/Bld) [Vol rate/Area] 90 mL/min/{1.73_m2} Normal >60 [facility] Comment on above: Result Comment: Non- GFR Calc Performed By: #### L 500.4050, L100.0100, L503.6620 ####[facility] [address] [place], [address] Globulin (S) [Mass/Vol] 3.3 g/dL Normal 2.2-4.2 [facility] Comment on above: Performed By: #### L 500.4050, L100.0100, L503.6620 ####[facility] [address] [place], [address] Glucose [Mass/Vol] 216 mg/dL High 74-106 [facility] Comment on above: Result Comment: Gluc ose result greater than or equal to 200 mg/dLsuggests DIABETES MELLITUS per A.D.A. criteria. Performed By: #### L 500.4050, L100.0100, L503.6620 ####[facility] [address] [place], [address] Potassium [Moles/Vol] 3.1 mmol/L Low 3.5-5.1 [facility] Comment on above: Performed By: #### L 500.4050, L100.0100, L503.6620 ####[facility] [address] [place], [address] Sodium [Moles/Vol] 142 mmol/L Normal 136-145 [facility] Comment on above: Performed By: #### L 500.4050, L100.0100, L503.6620 ####[facility] [address] [place], [address] T PROT 6.9 g/dL Normal 6.4-8.2 [facility] Comment on above: Performed By: #### L 500.4050, L100.0100, L503.6620 ####[facility] [address] [place], [place], [address] Urea nitrogen [Mass/Vol] 9 mg/dL Normal 7-18 [facility] Comment on above: Performed By: #### L 500.4050, L100.0100, L503.6658 ####[facility] [address] [place], [place], [id number] Eosinophil percentageOrdered By: Xiang Rogers on 01-31-2024 Eosinophils/100 WBC (Bld) 3.3 % 0-5 [facility] Erythrocyte distribution wid th ratioOrdered By: Xiang Rogers on 01-31-2024 Erythrocyte distribution width (RBC) [Ratio] 20.0 % High 11.6-14.6 [facility] Erythrocyte distribution wid th standard deviationOrdered By: Xiang Rogers on 01-31-2024 Erythrocyte distribution width (RBC) [Entitic vol] 58.1 fL High 35.1-43.9 [facility] Estimated glomerular filtrat ion rate (GFR) AmericanOrdered By: Xiang Rogers on 01-31-2024 Estimated GFR (MDRD) Amer 109 mL/min >60 [facility] Comment on above: GFR Calc Glomerular filtration rate ( GFR) estimationOrdered By: Xiang Rogers on 01-31-2024 Estimated GFR (MDRD) Non-Af Amer 90 mL/min >60 [facility] Comment on above: Non- GFR Calc Glucose measurementOrdered B y: Xiang Rogers on 01-31-2024 Glucose [Mass/Vol] 216 mg/dL High 74-106 [facility] Comment on above: Glucose result great er than or equal to 200 mg/dLsuggests DIABETES MELLITUS per A.D.A. criteria. Hematocrit Auto (Bld) [Volum e fraction]Ordered By: Xiang Rogers on 01-31-2024 Hematocrit (Bld) [Volume fraction] 38.6 % 37-47 [facility] Hemoglobin measurementOrdere d By: Xiang Rogers on 01-31-2024 Hemoglobin (Bld) [Mass/Vol] 11.7 g/dL Low 12.0-15.0 [facility] Immature granulocytes/100 WB C Auto (Bld)Ordered By: Xiang Rogers on 01-31-2024 Immature granulocytes/100 WBC (Bld) 0.200 % 0.0-0.9 [facility] Comment on above: IG% - Immature Granu locytes (promyelocytes, myelocytes and metamyelocytes) > 1% indicates that a LEFT SHIFT is Present. Laboratory - Chemistry and C hemistry - challengeOrdered By: Xiang Rogers on 01-31-2024 AST [Catalytic activity/Vol] 18 U/L 15-37 [facility] Lymphocytes Auto (Unsp spec) [#/Vol]Ordered By: Xiang Rogers on 01-31-2024 Lymphocytes (Bld) [#/Vol] 1.73 10*3/uL 0.83-4.51 [facility] Lymphocytes/100 WBC Auto (Un sp spec)Ordered By: Xiang Rogers on 01-31-2024 Lymphocytes/100 WBC (Bld) 35.6 % 19-41 [facility] MCV (mean corpuscular volume ) determinationOrdered By: Xiang Rogers on 01-31-2024 MCV (RBC) [Entitic vol] 81.8 fL 81-99 [facility] Mean corpuscular hemoglobin (MCH) determinationOrdered By: Xiang Rogers on 01-31-2024 MCH (RBC) [Entitic mass] 24.8 pg Low 27.0-32.0 [facility] Mean corpuscular hemoglobin concentration (MCHC) determinationOrdered By: Xiang Rogers on 01-31-2024 MCHC (RBC) [Mass/Vol] 30.3 g/dL Low 32-36 [facility] Mean platelet volume determi nationOrdered By: Xiang Rogers on 01-31-2024 Platelet mean volume (Bld) [Entitic vol] 9.9 fL 6.2-12.0 [facility] Monocyte percentageOrdered B y: Xiang Rogers on 01-31-2024 Monocytes/100 WBC (Bld) 9.9 % 0-10 [facility] Neutrophil percentageOrdered By: Xiang Rogers on 01-31-2024 Neutrophils/100 WBC (Bld) 50.0 % 47-70 [facility] Nucleated red blood cell per centageOrdered By: Xiang Rogers on 01-31-2024 Nucleated RBC/100 WBC (Bld) [Ratio] 0 % 0-5 [facility] Platelet countOrdered By: Nicole Rogers on 01-31-2024 Platelets (Bld) [#/Vol] 268 10*3/uL 150-450 [facility] Potassium measurementOrdered By: Xiang Rogers on 01-31-2024 Potassium [Moles/Vol] 3.1 mmol/L Low 3.5-5.1 [facility] RBC Auto (Bld) [#/Vol]Ordere d By: Xiang Rogers on 01-31-2024 RBC (Bld) [#/Vol] 4.72 10*6/uL 4.2-5.4 [facility] Serum anion gap measurementO rdered By: Xiang Rogers on 01-31-2024 Anion gap [Moles/Vol] 6 mmol/L 5-15 [facility] Serum globulin measurementOr dered By: Xiang Rogers on 01-31-2024 Globulin (S) [Mass/Vol] 3.3 g/dL 2.2-4.2 [facility] Serum or plasma alanine mesa otransferase (ALT) measurementOrdered By: Xiang Rogers on 01-31-2024 ALT [Catalytic activity/Vol] 23 U/L 13-56 [facility] Serum or plasma albumin aminta urement (mass/volume)Ordered By: Xiang Rogers on 01-31-2024 Albumin [Mass/Vol] 3.6 g/dL 3.2-5.0 [facility] Serum or plasma alkaline arcelia sphatase measurementOrdered By: Xiang Rogers on 01-31-2024 ALP [Catalytic activity/Vol] 107 U/L 45-117 [facility] Serum or plasma calcium aminta urement (mass/volume)Ordered By: Xiang Rogers on 01-31-2024 Calcium [Mass/Vol] 9.6 mg/dL 8.5-10.1 [facility] Serum or plasma creatinine m easurement (mass/volume)Ordered By: Xiang Rogers on 01-31-2024 Creatinine [Mass/Vol] 0.70 mg/dL 0.55-1.02 [facility] Comment on above: The validity of the calculated GFR & GFRAA in patients over 70 years has not been determined. Clinical correlation is essential. Serum or plasma urea nitroge n measurement (mass/volume)Ordered By: Xiang Rogers on 01-31-2024 Urea nitrogen [Mass/Vol] 9 mg/dL 7-18 [facility] Sodium levelOrdered By: Xiang Ken on 01-31-2024 Sodium [Moles/Vol] 142 mmol/L 136-145 [facility] Total proteinOrdered By: Florencio palomares Ken on 01-31-2024 Protein [Mass/Vol] 6.9 g/dL 6.4-8.2 [facility] White blood cell (WBC) count Ordered By: Xiang Ken on 01-31-2024 WBC (Bld) [#/Vol] 4.9 10*3/uL 4.4-11.0 [facility] CR - History AND Physicalon 01-24-2024 CR - History & Physical Normal [facility] CNPNon 01-20-2024 CNPN Telephone (AGRHEUHWN ) JAYLIN CARROLL ([id number]) 1960 F Date Time Provider Department 01/20/24 ROBERT FARIAS During your visit today, we recorded the following information about you: Robert Farias MD 01/20/2024 2:58 PM Signed Please let her know labs show anemia Get test done ordered Also stool test MD Sylwia Reis Gail, LPN 01/22/2024 9:27 AM Signed Pt was discharged on Monday after a two day stay at [facility] diagnosed with pneumonia and [place] (NSTEMI). Discharge summary in Epic (care everywhere). Pt had a heart cath done without intervention but was started on plavix. ABX tx has been completed and pt also was diagnosed with anemia and started on oral iron. Pt is to follow up with GI and that appointment will be made with a provider in the [place] area. Pt reports that the stool for [...] pain severe Date Reviewed: 01/18/2024 Reviewed by: Godlie Bullock RN - Fully Assessed Primary Visit Diagnosis:Anemia, chronic disease [D63.8] Order(s):IRON AND TIBC [SQIRON] Order #: [id number] FUTURE VITAMIN B12 [SQB12] Order #: [id number] FUTURE FOLATE, SERUM [SQSERFOL] Order #: [id number] FUTURE FERRITIN [SQFERR] Order #: [id number] FUTURE IMMUNOCHEMICAL FECAL OCCULT BLOOD TEST [SQIFOBT] Order #: [id number]. #:[id number] Prescriptions as of 01/22/2024 - hydrOXYchloroQUINE (PLAQUENIL) [...] Status:Closed by BRYNN FOFANA on 01/22/[address] [facility] CBC W Auto Differential pane l (Bld)on 01-18-2024 Basophils (Bld) [#/Vol] 0.05 10*3/uL Normal <0.11 [facility] Comment on above: Order Comment: Speci men Type: BLOOD SPECIMEN Ordering Facility: [facility] Address: [address] [place] [address] Performed By: #### 5 7021-8 #### [facility] CLIA [id number] 1 [place] [address] [place] Basophils/100 WBC (Bld) 0.6 % Normal [facility] Comment on above: Order Comment: Speci men Type: BLOOD SPECIMEN Ordering Facility: [facility] Address: [address] [place] [address] Performed By: #### 5 7021-8 #### [facility] CLIA [id number] [address] [place] Differential cell count method Nom (Bld) Auto Normal [facility] Comment on above: Order Comment: Speci men Type: BLOOD SPECIMEN Ordering Facility: [facility] Address: [address] [place] [address] Performed By: #### 5 7021-8 #### [facility] CLIA [id number] 1 [place] [address] [place] Eosinophils (Bld) [#/Vol] 0.20 10*3/uL Normal <0.46 [facility] Comment on above: Order Comment: Speci men Type: BLOOD SPECIMEN Ordering Facility: [facility] Address: [address] [place] [address] Performed By: #### 5 7021-8 #### [facility] CLIA [id number] [address] [place] Eosinophils/100 WBC (Bld) 2.5 % Normal [facility] Comment on above: Order Comment: Speci men Type: BLOOD SPECIMEN Ordering Facility: [facility] Address: [address] [place] [address] Performed By: #### 5 7021-8 #### [facility] CLIA [id number] [address] [place] Erythrocyte distribution width (RBC) [Ratio] 19.1 % High 11.5-15.0 [facility] Comment on above: Order Comment: Speci men Type: BLOOD SPECIMEN Ordering Facility: [facility] Address: [address] [place] [address] Performed By: #### 5 7021-8 #### [facility] CLIA [id number] [address] [place] Hematocrit (Bld) [Volume fraction] 30.9 % Low 36.0-46.0 [facility] Comment on above: Order Comment: Speci men Type: BLOOD SPECIMEN Ordering Facility: [facility] Address: [address] [place] [address] Performed By: #### 5 7021-8 #### [facility] CLIA [id number] [address] [place] Hemoglobin (Bld) [Mass/Vol] 9.4 g/dL Low 11.5-15.5 [facility] Comment on above: Order Comment: Speci men Type: BLOOD SPECIMEN Ordering Facility: [facility] Address: [address] [place] [address] Performed By: #### 5 7021-8 #### [facility] CLIA [id number] [address] OF [facility] Immature granulocytes (Bld) [#/Vol] 0.33 10*3/uL High <0.10 [facility] Comment on above: Order Comment: Speci men Type: BLOOD SPECIMEN Ordering Facility: [facility] Address: [address] [place] [address] Performed By: #### 5 7021-8 #### [facility] CLIA [id number] [address] [place] Immature granulocytes/100 WBC (Bld) 4.1 % Normal [facility] Comment on above: Order Comment: Speci men Type: BLOOD SPECIMEN Ordering Facility: [facility] Address: [address] [place] [address] Performed By: #### 5 7021-8 #### [facility] CLIA [id number] [address] [place] Lymphocytes (Bld) [#/Vol] 1.27 10*3/uL Normal 1.00-4.00 [facility] Comment on above: Order Comment: Speci men Type: BLOOD SPECIMEN Ordering Facility: [facility] Address: [address] [place] [address] Performed By: #### 5 7021-8 #### [facility] CLIA [id number] [address] Lymphocytes/100 WBC (Bld) 15.8 % Normal [facility] Comment on above: Order Comment: Speci men Type: BLOOD SPECIMEN Ordering Facility: [facility] Address: [address] [place] [address] Performed By: #### 5 7021-8 #### [facility] CLIA [id number] [address] [place] MCH (RBC) [Entitic mass] 24.6 pg Low 26.0-34.0 [facility] Comment on above: Order Comment: Speci men Type: BLOOD SPECIMEN Ordering Facility: [facility] Address: [address] [place] [address] Performed By: #### 5 7021-8 #### [facility] CLIA [id number] [address] [place] MCHC (RBC) [Mass/Vol] 30.4 g/dL Low 30.5-36.0 [facility] Comment on above: Order Comment: Speci men Type: BLOOD SPECIMEN Ordering Facility: [facility] Address: [address] [place] [address] Performed By: #### 5 7021-8 #### [facility] CLIA [id number] [address] [place] MCV (RBC) [Entitic vol] 80.9 fL Normal 80.0-100.0 [facility] Comment on above: Order Comment: Speci men Type: BLOOD SPECIMEN Ordering Facility: [facility] Address: [address] [place] [address] Performed By: #### 5 7021-8 #### [facility] CLIA [id number] [address] [place] Monocytes (Bld) [#/Vol] 0.24 10*3/uL Normal <0.87 [facility] Comment on above: Order Comment: Speci men Type: BLOOD SPECIMEN Ordering Facility: [facility] Address: [address] [place] [address] Performed By: #### 5 7021-8 #### [facility] CLIA [id number] [address] [place] Monocytes/100 WBC (Bld) 3.0 % Normal [facility] Comment on above: Order Comment: Speci men Type: BLOOD SPECIMEN Ordering Facility: [facility] Address: [address] [place] [address] Performed By: #### 5 7021-8 #### [facility] CLIA [id number] [address] [place] Neutrophils (Bld) [#/Vol] 5.94 10*3/uL Normal 1.45-7.50 [facility] Comment on above: Order Comment: Speci men Type: BLOOD SPECIMEN Ordering Facility: [facility] Address: [address] [place] [address] Performed By: #### 5 7021-8 #### [facility] CLIA [id number] [address] [place] Neutrophils/100 WBC (Bld) 74.0 % Normal [facility] Comment on above: Order Comment: Speci men Type: BLOOD SPECIMEN Ordering Facility: [facility] Address: [address] [place] [address] Performed By: #### 5 7021-8 #### [facility] CLIA [id number] [address] [place] Nucleated RBC (Bld) [#/Vol] 10*3/uL Normal <0.01 [facility] Comment on above: Order Comment: Speci men Type: BLOOD SPECIMEN Ordering Facility: [facility] Address: [address] [place] [address] Performed By: #### 5 7021-8 #### [facility] CLIA [id number] [address] [place] Nucleated RBC/100 WBC (Bld) [Ratio] 0.0 /[address] [facility] Comment on above: Order Comment: Speci men Type: BLOOD SPECIMEN Ordering Facility: [facility] Address: [address] [place] [address] Performed By: #### 5 7021-8 #### [facility] CLIA [id number] [address] [place] Platelet mean volume (Bld) [Entitic vol] 9.5 fL Normal 9.0-12.7 [facility] Comment on above: Order Comment: Speci men Type: BLOOD SPECIMEN Ordering Facility: [facility] Address: [address] [place] [address] Performed By: #### 5 7021-8 #### [facility] CLIA [id number] [address] [place] Platelets (Bld) [#/Vol] 352 10*3/uL Normal 150-400 [facility] Comment on above: Order Comment: Speci men Type: BLOOD SPECIMEN Ordering Facility: [facility] Address: [address] [place] [address] Performed By: #### 5 7021-8 #### [facility] CLIA [id number] [address] RBC (Bld) [#/Vol] 3.82 10*6/uL Low 3.90-5.20 [facility] Comment on above: Order Comment: Speci men Type: BLOOD SPECIMEN Ordering Facility: [facility] Address: [address] [place] [address] Performed By: #### 5 7021-8 #### [facility] CLIA [id number] [address] OF [facility] WBC (Bld) [#/Vol] 8.03 10*3/uL Normal 3.70-11.00 [facility] Comment on above: Order Comment: Speci men Type: BLOOD SPECIMEN Ordering Facility: [facility] Address: [address] [place] [address] Performed By: #### 5 7021-8 #### [facility] CLIA [id number] [address] Comprehensive metabolic 2000 panelon 01-18-2024 Albumin [Mass/Vol] 3.6 g/dL Low 3.9-4.9 [facility] Comment on above: Order Comment: Speci men Type: BLOOD SPECIMEN Ordering Facility: [facility] Address: [address] [place] [address] Performed By: #### 2 4323-8 #### [facility] CLIA [id number] [address] ALP [Catalytic activity/Vol] 101 U/L Normal 34-123 [facility] Comment on above: Order Comment: Speci men Type: BLOOD SPECIMEN Ordering Facility: [facility] Address: [address] [place] [address] Performed By: #### 2 4323-8 #### [facility] CLIA [id number] [address] ALT With P-5'-P [Catalytic activity/Vol] 27 U/L Normal 7-38 [facility] Comment on above: Order Comment: Speci men Type: BLOOD SPECIMEN Ordering Facility: [facility] Address: [address] [place] [address] Performed By: #### 2 4323-8 #### [facility] CLIA [id number] 1 [place] [address] [place] Anion gap [Moles/Vol] 14 mmol/L Normal 8-15 [facility] Comment on above: Order Comment: Speci men Type: BLOOD SPECIMEN Ordering Facility: [facility] Address: [address] [place] [address] Performed By: #### 2 4323-8 #### [facility] CLIA [id number] 1 [place] [address] [place] AST With P-5'-P [Catalytic activity/Vol] 23 U/L Normal 13-35 [facility] Comment on above: Order Comment: Speci men Type: BLOOD SPECIMEN Ordering Facility: [facility] Address: [address] [place] [address] Performed By: #### 2 4323-8 #### [facility] CLIA [id number] 1 [place] [address] [place] Bilirubin [Mass/Vol] 0.3 mg/dL Normal 0.2-1.3 [facility] Comment on above: Order Comment: Speci men Type: BLOOD SPECIMEN Ordering Facility: [facility] Address: [address] [place] [address] Performed By: #### 2 4323-8 #### [facility] CLIA [id number] [address] [place] Calcium [Mass/Vol] 9.2 mg/dL Normal 8.5-10.2 [facility] Comment on above: Order Comment: Speci men Type: BLOOD SPECIMEN Ordering Facility: [facility] Address: [address] [place] [address] Performed By: #### 2 4323-8 #### [facility] CLIA [id number] 1 [place] [address] [place] Chloride [Moles/Vol] 104 mmol/L Normal 98-107 [facility] Comment on above: Order Comment: Speci men Type: BLOOD SPECIMEN Ordering Facility: [facility] Address: [address] [place] [address] Performed By: #### 2 4323-8 #### [facility] CLIA [id number] [address] STATES [facility] CO2 [Moles/Vol] 23 mmol/L Normal 22-30 [facility] Comment on above: Order Comment: Speci men Type: BLOOD SPECIMEN Ordering Facility: [facility] Address: [address] [place] [address] Performed By: #### 2 4323-8 #### [facility] CLIA [id number] [address] Creatinine [Mass/Vol] 0.46 mg/dL Low 0.58-0.96 [facility] Comment on above: Order Comment: Speci men Type: BLOOD SPECIMEN Ordering Facility: [facility] Address: [address] [place] [address] Performed By: #### 2 4323-8 #### [facility] CLIA [id number] [address] Creatinine and Glomerular filtration rate.predicted panel (S/P/Bld) 108 mL/min/1.73m??? Normal >=60 [facility] Comment on above: Order Comment: Speci men Type: BLOOD SPECIMEN Ordering Facility: [facility] Address: [address] [place] [address] Result Comment: Glynn mated Glomerular Filtration Rate [...] GFR. Performed By: #### 2 4323-8 #### [facility] CLIA [id number] [address] OF [facility] Glucose [Mass/Vol] 192 mg/dL High 74-99 [facility] Comment on above: Order Comment: Speci men Type: BLOOD SPECIMEN Ordering Facility: [facility] Address: [address] [place] [address] Result Comment: The [place] [employer] (ADA) provides guidance for cutoff [...] Standards of Medical Care in Diabetes 2016, [place] [employer]. Diabetes Care. 2016.39(Suppl 1). Performed By: #### 2 4323-8 #### [facility] CLIA [id number] 1 [place] [address] [place] Potassium [Moles/Vol] 3.6 mmol/L Low 3.7-5.1 [facility] Comment on above: Order Comment: Speci men Type: BLOOD SPECIMEN Ordering Facility: [facility] Address: [address] [place] [address] Performed By: #### 2 4323-8 #### [facility] CLIA [id number] 1 [place] [address] [place] Protein [Mass/Vol] 6.3 g/dL Normal 6.3-8.0 [facility] Comment on above: Order Comment: Speci men Type: BLOOD SPECIMEN Ordering Facility: [facility] Address: [address] [place] [id number] Performed By: #### 2 4323-8 #### [facility] CLIA [id number] 1 [place] [address] [place] Sodium [Moles/Vol] 141 mmol/L Normal 136-144 [facility] Comment on above: Order Comment: Speci men Type: BLOOD SPECIMEN Ordering Facility: [facility] Address: [address] [place] [address] Performed By: #### 2 4323-8 #### [facility] CLIA [id number] 1 [place] [address] [place] Urea nitrogen [Mass/Vol] 10 mg/dL Normal 7-21 [facility] Comment on above: Order Comment: Speci men Type: BLOOD SPECIMEN Ordering Facility: [facility] Address: [facility] [place] [address] Performed By: #### 2 4323-8 #### [facility] CLIA [id number] [address] [place] [id number] [place] CBC W/Diff, Automatedon 11- Absolute Neut Normal 2.0-7.7 [facility] Comment on above: Result Comment: Canc elled via OM: Order cancelled - Patient discharged Performed By: #### L 500.4050, L100.0100 ####[facility] [address] [place], [address] HCT Normal 37-47 [facility] Comment on above: Result Comment: Canc elled via OM: Order cancelled - Patient discharged Performed By: #### L 500.4050, L100.0100 ####[facility] [address] [place], [address] HGB Normal 12.0-15.0 [facility] Comment on above: Result Comment: Canc elled via OM: Order cancelled - Patient discharged Performed By: #### L 500.4050, L100.0100 ####[facility] [address] [place], [address] MCH Normal 27.0-32.0 [facility] Comment on above: Result Comment: Canc elled via OM: Order cancelled - Patient discharged Performed By: #### L 500.4050, L100.0100 ####[facility] [address] [place], [address] MCHC Normal 32-36 [facility] Comment on above: Result Comment: Canc elled via OM: Order cancelled - Patient discharged Performed By: #### L 500.4050, L100.0100 ####[facility] [address] [place], [address] MCV Normal 81-99 [facility] Comment on above: Result Comment: Canc elled via OM: Order cancelled - Patient discharged Performed By: #### L 500.4050, L100.0100 ####[facility] [address] [place], [address] NEUT% Normal 47-70 [facility] Comment on above: Result Comment: Canc elled via OM: Order cancelled - Patient discharged Performed By: #### L 500.4050, L100.0100 ####[facility] [address] [place], [address] PLT Normal 150-450 [facility] Comment on above: Result Comment: Canc elled via OM: Order cancelled - Patient discharged Performed By: #### L 500.4050, L100.0100 ####[facility] [address] [place], [address] RBC Normal 4.2-5.4 [facility] Comment on above: Result Comment: Canc elled via OM: Order cancelled - Patient discharged Performed By: #### L 500.4050, L100.0100 ####[facility] [address] [place], [address] RDW CV Normal 11.6-14.6 [facility] Comment on above: Result Comment: Canc elled via OM: Order cancelled - Patient discharged Performed By: #### L 500.4050, L100.0100 ####[facility] [address] [place], [address] RDW SD Normal 35.1-43.9 [facility] Comment on above: Result Comment: Canc elled via OM: Order cancelled - Patient discharged Performed By: #### L 500.4050, L100.0100 ####[facility] [address] [place], [address] WBC Normal 4.4-11.0 [facility] Comment on above: Result Comment: Canc elled via OM: Order cancelled - Patient discharged Performed By: #### L 500.4050, L100.0100 ####[facility] [address] [place], [address] Comprehensive Metabolic Prof ilon 01-16-2024 ALB Normal 3.2-5.0 [facility] Comment on above: Result Comment: Canc elled via OM: Order cancelled - Patient discharged Performed By: #### L 500.4050, L100.0100 ####[facility] [address] [place], [address] ALK P Normal 45-117 [facility] Comment on above: Result Comment: Canc elled via OM: Order cancelled - Patient discharged Performed By: #### L 500.4050, L100.0100 ####[facility] [address] [place], [address] ALT Normal 13-56 [facility] Comment on above: Result Comment: Canc elled via OM: Order cancelled - Patient discharged Performed By: #### L 500.4050, L100.0100 ####[facility] [address] [place], [address] AST Normal 15-37 [facility] Comment on above: Result Comment: Canc elled via OM: Order cancelled - Patient discharged Performed By: #### L 500.4050, L100.0100 ####[facility] [address] [place], [address] BUN Normal 7-18 [facility] Comment on above: Result Comment: Canc elled via OM: Order cancelled - Patient discharged Performed By: #### L 500.4050, L100.0100 ####[facility] [address] [place], [address] BUN/CRE Normal 10-20 [facility] Comment on above: Result Comment: Canc elled via OM: Order cancelled - Patient discharged Performed By: #### L 500.4050, L100.0100 ####[facility] [address] [place], [address] CA,Total Normal 8.5-10.1 [facility] Comment on above: Result Comment: Canc elled via OM: Order cancelled - Patient discharged Performed By: #### L 500.4050, L100.0100 ####[facility] [address] [place], [address] CL Normal 98-107 [facility] Comment on above: Result Comment: Canc elled via OM: Order cancelled - Patient discharged Performed By: #### L 500.4050, L100.0100 ####[facility] [address] [place], [address] CO2 Normal 21.0-32.0 [facility] Comment on above: Result Comment: Canc elled via OM: Order cancelled - Patient discharged Performed By: #### L 500.4050, L100.0100 ####[facility] [address] [place], [address] CREAT,SERUM Normal 0.55-1.02 [facility] Comment on above: Result Comment: Canc elled via OM: Order cancelled - Patient discharged Performed By: #### L 500.4050, L100.0100 ####[facility] [address] [place], [address] EST GFR Normal >60 [facility] Comment on above: Result Comment: Canc elled via OM: Order cancelled - Patient discharged Performed By: #### L 500.4050, L100.0100 ####[facility] [address] [place], [address] EST GFR - AA Normal >60 [facility] Comment on above: Result Comment: Canc elled via OM: Order cancelled - Patient discharged Performed By: #### L 500.4050, L100.0100 ####[facility] [address] [place], [address] GAP Normal 5-15 [facility] Comment on above: Result Comment: Canc elled via OM: Order cancelled - Patient discharged Performed By: #### L 500.4050, L100.0100 ####[facility] [address] [place], [address] GLU Normal 74-106 [facility] Comment on above: Result Comment: Canc elled via OM: Order cancelled - Patient discharged Performed By: #### L 500.4050, L100.0100 ####[facility] [address] [place], [address] Potassium Normal 3.5-5.1 [facility] Comment on above: Result Comment: Canc elled via OM: Order cancelled - Patient discharged Performed By: #### L 500.4050, L100.0100 ####[facility] [address] [place], [address] T BILI Normal 0.20-1.00 [facility] Comment on above: Result Comment: Canc elled via OM: Order cancelled - Patient discharged Performed By: #### L 500.4050, L100.0100 ####[facility] [address] [place], [address] T PROT Normal 6.4-8.2 [facility] Comment on above: Result Comment: Canc elled via OM: Order cancelled - Patient discharged Performed By: #### L 500.4050, L100.0100 ####[facility] [address] [place], [address] Comprehensive Metabolic Profil Normal 136-145 [facility] Comment on above: Result Comment: Canc elled via OM: Order cancelled - Patient discharged Performed By: #### L 500.4050, L100.0100 ####[facility] [address] [place], [address] CBC W/Diff, Automatedon 11- Absolute Neut Normal 2.0-7.7 [facility] Comment on above: Result Comment: Canc elled via OM: Order cancelled - Patient discharged Performed By: #### L 500.4050, L100.0100 ####[facility] [address] [place], [address] HCT Normal 37-47 [facility] Comment on above: Result Comment: Canc elled via OM: Order cancelled - Patient discharged Performed By: #### L 500.4050, L100.0100 ####[facility] [address] [place], [address] HGB Normal 12.0-15.0 [facility] Comment on above: Result Comment: Canc elled via OM: Order cancelled - Patient discharged Performed By: #### L 500.4050, L100.0100 ####[facility] [address] [place], [address] MCH Normal 27.0-32.0 [facility] Comment on above: Result Comment: Canc elled via OM: Order cancelled - Patient discharged Performed By: #### L 500.4050, L100.0100 ####[facility] [address] [place], [address] MCHC Normal 32-36 [facility] Comment on above: Result Comment: Canc elled via OM: Order cancelled - Patient discharged Performed By: #### L 500.4050, L100.0100 ####[facility] [address] [place], [address] MCV Normal 81-99 [facility] Comment on above: Result Comment: Canc elled via OM: Order cancelled - Patient discharged Performed By: #### L 500.4050, L100.0100 ####[facility] [address] [place], [address] NEUT% Normal 47-70 [facility] Comment on above: Result Comment: Canc elled via OM: Order cancelled - Patient discharged Performed By: #### L 500.4050, L100.0100 ####[facility] [address] [place], [address] PLT Normal 150-450 [facility] Comment on above: Result Comment: Canc elled via OM: Order cancelled - Patient discharged Performed By: #### L 500.4050, L100.0100 ####[facility] [address] [place], [address] RBC Normal 4.2-5.4 [facility] Comment on above: Result Comment: Canc elled via OM: Order cancelled - Patient discharged Performed By: #### L 500.4050, L100.0100 ####[facility] [address] [place], [address] RDW CV Normal 11.6-14.6 [facility] Comment on above: Result Comment: Canc elled via OM: Order cancelled - Patient discharged Performed By: #### L 500.4050, L100.0100 ####[facility] [address] [place], [address] RDW SD Normal 35.1-43.9 [facility] Comment on above: Result Comment: Canc elled via OM: Order cancelled - Patient discharged Performed By: #### L 500.4050, L100.0100 ####[facility] [address] [place], [address] WBC Normal 4.4-11.0 [facility] Comment on above: Result Comment: Canc elled via OM: Order cancelled - Patient discharged Performed By: #### L 500.4050, L100.0100 ####[facility] [address] [place], [address] Comprehensive Metabolic Prof ilon 01-15-2024 ALB Normal 3.2-5.0 [facility] Comment on above: Result Comment: Canc elled via OM: Order cancelled - Patient discharged Performed By: #### L 500.4050, L100.0100 ####[facility] [address] [place], [address] ALK P Normal 45-117 [facility] Comment on above: Result Comment: Canc elled via OM: Order cancelled - Patient discharged Performed By: #### L 500.4050, L100.0100 ####[facility] [address] [place], [address] ALT Normal 13-56 [facility] Comment on above: Result Comment: Canc elled via OM: Order cancelled - Patient discharged Performed By: #### L 500.4050, L100.0100 ####[facility] [address] [place], [address] AST Normal 15-37 [facility] Comment on above: Result Comment: Canc elled via OM: Order cancelled - Patient discharged Performed By: #### L 500.4050, L100.0100 ####[facility] [address] [place], [address] BUN Normal 7-18 [facility] Comment on above: Result Comment: Canc elled via OM: Order cancelled - Patient discharged Performed By: #### L 500.4050, L100.0100 ####[facility] [address] [place], [address] BUN/CRE Normal 10-20 [facility] Comment on above: Result Comment: Canc elled via OM: Order cancelled - Patient discharged Performed By: #### L 500.4050, L100.0100 ####[facility] [address] [place], [address] CA,Total Normal 8.5-10.1 [facility] Comment on above: Result Comment: Canc elled via OM: Order cancelled - Patient discharged Performed By: #### L 500.4050, L100.0100 ####[facility] [address] [place], [address] CL Normal 98-107 [facility] Comment on above: Result Comment: Canc elled via OM: Order cancelled - Patient discharged Performed By: #### L 500.4050, L100.0100 ####[facility] [address] [place], [address] CO2 Normal 21.0-32.0 [facility] Comment on above: Result Comment: Canc elled via OM: Order cancelled - Patient discharged Performed By: #### L 500.4050, L100.0100 ####[facility] [address] [place], [address] CREAT,SERUM Normal 0.55-1.02 [facility] Comment on above: Result Comment: Canc elled via OM: Order cancelled - Patient discharged Performed By: #### L 500.4050, L100.0100 ####[facility] [address] [place], [address] EST GFR Normal >60 [facility] Comment on above: Result Comment: Canc elled via OM: Order cancelled - Patient discharged Performed By: #### L 500.4050, L100.0100 ####[facility] [address] [place], [address] EST GFR - AA Normal >60 [facility] Comment on above: Result Comment: Canc elled via OM: Order cancelled - Patient discharged Performed By: #### L 500.4050, L100.0100 ####[facility] [address] [place], [address] GAP Normal 5-15 [facility] Comment on above: Result Comment: Canc elled via OM: Order cancelled - Patient discharged Performed By: #### L 500.4050, L100.0100 ####[facility] [address] [place], [address] GLU Normal 74-106 [facility] Comment on above: Result Comment: Canc elled via OM: Order cancelled - Patient discharged Performed By: #### L 500.4050, L100.0100 ####[facility] [address] [place], [address] Potassium Normal 3.5-5.1 [facility] Comment on above: Result Comment: Canc elled via OM: Order cancelled - Patient discharged Performed By: #### L 500.4050, L100.0100 ####[facility] [address] [place], [address] T BILI Normal 0.20-1.00 [facility] Comment on above: Result Comment: Canc elled via OM: Order cancelled - Patient discharged Performed By: #### L 500.4050, L100.0100 ####[facility] [address] [place], [address] T PROT Normal 6.4-8.2 [facility] Comment on above: Result Comment: Canc elled via OM: Order cancelled - Patient discharged Performed By: #### L 500.4050, L100.0100 ####[facility] [address] [place], [address] Comprehensive Metabolic Profil Normal 136-145 [facility] Comment on above: Result Comment: Canc elled via OM: Order cancelled - Patient discharged Performed By: #### L 500.4050, L100.0100 ####[facility] [address] [place], [address] CBC W/Diff, Automatedon 11-1 0-2023 Absolute Neut Normal 2.0-7.7 [facility] Comment on above: Result Comment: Canc elled via OM: Order cancelled - Patient discharged Performed By: #### L 100.0100, L500.4050 ####[facility] [address] [place], [address] HCT Normal 37-47 [facility] Comment on above: Result Comment: Canc elled via OM: Order cancelled - Patient discharged Performed By: #### L 100.0100, L500.4050 ####[facility] [address] [place], [address] HGB Normal 12.0-15.0 [facility] Comment on above: Result Comment: Canc elled via OM: Order cancelled - Patient discharged Performed By: #### L 100.0100, L500.4050 ####[facility] [address] [place], [address] MCH Normal 27.0-32.0 [facility] Comment on above: Result Comment: Canc elled via OM: Order cancelled - Patient discharged Performed By: #### L 100.0100, L500.4050 ####[facility] [address] [place], [address] MCHC Normal 32-36 [facility] Comment on above: Result Comment: Canc elled via OM: Order cancelled - Patient discharged Performed By: #### L 100.0100, L500.4050 ####[facility] [address] [place], [address] MCV Normal 81-99 [facility] Comment on above: Result Comment: Canc elled via OM: Order cancelled - Patient discharged Performed By: #### L 100.0100, L500.4050 ####[facility] [address] [place], [address] NEUT% Normal 47-70 [facility] Comment on above: Result Comment: Canc elled via OM: Order cancelled - Patient discharged Performed By: #### L 100.0100, L500.4050 ####[facility] [address] [place], [address] PLT Normal 150-450 [facility] Comment on above: Result Comment: Canc elled via OM: Order cancelled - Patient discharged Performed By: #### L 100.0100, L500.4050 ####[facility] [address] [place], [address] RBC Normal 4.2-5.4 [facility] Comment on above: Result Comment: Canc elled via OM: Order cancelled - Patient discharged Performed By: #### L 100.0100, L500.4050 ####[facility] [address] [place], [address] RDW CV Normal 11.6-14.6 [facility] Comment on above: Result Comment: Canc elled via OM: Order cancelled - Patient discharged Performed By: #### L 100.0100, L500.4050 ####[facility] [address] [place], [address] RDW SD Normal 35.1-43.9 [facility] Comment on above: Result Comment: Canc elled via OM: Order cancelled - Patient discharged Performed By: #### L 100.0100, L500.4050 ####[facility] [address] [place], [address] WBC Normal 4.4-11.0 [facility] Comment on above: Result Comment: Canc elled via OM: Order cancelled - Patient discharged Performed By: #### L 100.0100, L500.4050 ####[facility] [address] [place], [address] Comprehensive Metabolic Prof juan carlos 01-14-2024 ALB Normal 3.2-5.0 [facility] Comment on above: Result Comment: Canc elled via OM: Order cancelled - Patient discharged Performed By: #### L 100.0100, L500.4050 ####[facility] [address] [place], [address] ALK P Normal 45-117 [facility] Comment on above: Result Comment: Canc elled via OM: Order cancelled - Patient discharged Performed By: #### L 100.0100, L500.4050 ####[facility] [address] [place], [address] ALT Normal 13-56 [facility] Comment on above: Result Comment: Canc elled via OM: Order cancelled - Patient discharged Performed By: #### L 100.0100, L500.4050 ####[facility] [address] [place], [address] AST Normal 15-37 [facility] Comment on above: Result Comment: Canc elled via OM: Order cancelled - Patient discharged Performed By: #### L 100.0100, L500.4050 ####[facility] [address] [place], [address] BUN Normal 7-18 [facility] Comment on above: Result Comment: Canc elled via OM: Order cancelled - Patient discharged Performed By: #### L 100.0100, L500.4050 ####[facility] [address] [place], [address] BUN/CRE Normal 10-20 [facility] Comment on above: Result Comment: Canc elled via OM: Order cancelled - Patient discharged Performed By: #### L 100.0100, L500.4050 ####[facility] [address] [place], [address] CA,Total Normal 8.5-10.1 [facility] Comment on above: Result Comment: Canc elled via OM: Order cancelled - Patient discharged Performed By: #### L 100.0100, L500.4050 ####[facility] [address] [place], [address] CL Normal 98-107 [facility] Comment on above: Result Comment: Canc elled via OM: Order cancelled - Patient discharged Performed By: #### L 100.0100, L500.4050 ####[facility] [address] [place], [address] CO2 Normal 21.0-32.0 [facility] Comment on above: Result Comment: Canc elled via OM: Order cancelled - Patient discharged Performed By: #### L 100.0100, L500.4050 ####[facility] [address] [place], [address] CREAT,SERUM Normal 0.55-1.02 [facility] Comment on above: Result Comment: Canc elled via OM: Order cancelled - Patient discharged Performed By: #### L 100.0100, L500.4050 ####[facility] [address] [place], [address] EST GFR Normal >60 [facility] Comment on above: Result Comment: Canc elled via OM: Order cancelled - Patient discharged Performed By: #### L 100.0100, L500.4050 ####[facility] [address] [place], [address] EST GFR - AA Normal >60 [facility] Comment on above: Result Comment: Canc elled via OM: Order cancelled - Patient discharged Performed By: #### L 100.0100, L500.4050 ####[facility] [address] [place], [address] GAP Normal 5-15 [facility] Comment on above: Result Comment: Canc elled via OM: Order cancelled - Patient discharged Performed By: #### L 100.0100, L500.4050 ####[facility] [address] [place], [address] GLU Normal 74-106 [facility] Comment on above: Result Comment: Canc elled via OM: Order cancelled - Patient discharged Performed By: #### L 100.0100, L500.4050 ####[facility] [address] [place], [address] Potassium Normal 3.5-5.1 [facility] Comment on above: Result Comment: Canc elled via OM: Order cancelled - Patient discharged Performed By: #### L 100.0100, L500.4050 ####[facility] [address] [place], [address] T BILI Normal 0.20-1.00 [facility] Comment on above: Result Comment: Canc elled via OM: Order cancelled - Patient discharged Performed By: #### L 100.0100, L500.4050 ####[facility] [address] [place], [address] T PROT Normal 6.4-8.2 [facility] Comment on above: Result Comment: Canc elled via OM: Order cancelled - Patient discharged Performed By: #### L 100.0100, L500.4050 ####[facility] [address] [place], [address] Comprehensive Metabolic Profil Normal 136-145 [facility] Comment on above: Result Comment: Canc elled via OM: Order cancelled - Patient discharged Performed By: #### L 100.0100, L500.4050 ####[facility] [address] [place], [address] Bedside Glucoseon 01-13-2024 FINGERSTICK GLU 203 mg/dL High 74-106 [facility] Comment on above: Result Comment: DILIA GEMENT OF PATIENT CARE PER NURSING PROTOCOL Performed By: #### L 501.080 ####[facility] [address] [place], [address] FINGERSTICK GLU 148 mg/dL High 74-106 [facility] Comment on above: Result Comment: DILIA GEMENT OF PATIENT CARE PER NURSING PROTOCOL Performed By: #### L 501.080 ####[facility] [address] [place], [address] CBC W/Diff, Automatedon 11-0 9-2023 Absolute Lymph 1.15 X10 3/uL Normal 0.83-4.51 [facility] Comment on above: Performed By: #### L 100.0100 ####[facility] [address] [place], [address] Absolute Neut 5.9 X10 3/uL Normal 2.0-7.7 [facility] Comment on above: Performed By: #### L 100.0100 ####[facility] [address] [place], [address] Basophils/100 WBC (Bld) 0.5 % Normal 0-1 [facility] Comment on above: Performed By: #### L 100.0100 ####[facility] [address] [place], [address] Eosinophils/100 WBC (Bld) 2.0 % Normal 0-5 [facility] Comment on above: Performed By: #### L 100.0100 ####[facility] [address] [place], [address] Erythrocyte distribution width (RBC) [Ratio] 19.1 % High 11.6-14.6 [facility] Comment on above: Performed By: #### L 100.0100 ####[facility] [address] [place], [address] Hematocrit (Bld) [Volume fraction] 27.0 % Low 37-47 [facility] Comment on above: Performed By: #### L 100.0100 ####[facility] [address] [place], [address] Hemoglobin (Bld) [Mass/Vol] 8.2 g/dL Low 12.0-15.0 [facility] Comment on above: Performed By: #### L 100.0100 ####[facility] [address] [place], [address] IG% 3.400 High 0.0-0.9 [facility] Comment on above: Result Comment: IG% - Immature Granulocytes (promyelocytes, myelocytes andmetamyelocytes) > 1% indicates that a LEFT SHIFT is Present. Performed By: #### L 100.0100 ####[facility] [address] [place], [address] Lymphocytes/100 WBC (Bld) 13.5 % Low 19-41 [facility] Comment on above: Performed By: #### L 100.0100 ####[facility] [address] [place], [address] MCH (RBC) [Entitic mass] 24.1 pg Low 27.0-32.0 [facility] Comment on above: Performed By: #### L 100.0100 ####[facility] [address] [place], [address] MCHC (RBC) [Mass/Vol] 30.4 g/dL Low 32-36 [facility] Comment on above: Performed By: #### L 100.0100 ####[facility] [address] [place], [address] MCV (RBC) [Entitic vol] 79.4 fL Low 81-99 [facility] Comment on above: Performed By: #### L 100.0100 ####[facility] [address] [place], [address] Monocytes/100 WBC (Bld) 11.5 % High 0-10 [facility] Comment on above: Performed By: #### L 100.0100 ####[facility] [address] [place], [address] Neutrophils/100 WBC (Bld) 69.1 % Normal 47-70 [facility] Comment on above: Performed By: #### L 100.0100 ####[facility] [address] [place], [address] Nucleated RBC (Bld) [#/Vol] 0.2 10*3/uL Normal 0-5 [facility] Comment on above: Performed By: #### L 100.0100 ####[facility] [address] [place], [address] Platelet mean volume (Bld) [Entitic vol] 9.1 fL Normal 6.2-12.0 [facility] Comment on above: Performed By: #### L 100.0100 ####[facility] [address] [place], [address] Platelets (Bld) [#/Vol] 324 10*3/uL Normal 150-450 [facility] Comment on above: Performed By: #### L 100.0100 ####[facility] [address] [place], [address] RBC (Bld) [#/Vol] 3.40 10*6/uL Low 4.2-5.4 [facility] Comment on above: Performed By: #### L 100.0100 ####[facility] [address] [place], [address] RDW SD 54.2 fl High 35.1-43.9 [facility] Comment on above: Performed By: #### L 100.0100 ####[facility] [address] [place], [address] WBC (Bld) [#/Vol] 8.5 10*3/uL Normal 4.4-11.0 [facility] Comment on above: Performed By: #### L 100.0100 ####[facility] [address] [place], [address] Comprehensive Metabolic Prof ilon 01-13-2024 Albumin [Mass/Vol] 2.3 g/dL Low 3.2-5.0 [facility] Comment on above: Performed By: #### L 501.5200, L500.4050, L501.2300 ####[facility] [address] [place], [address] Albumin/Globulin [Mass ratio] 0.6 {ratio} Low 0.9-2.4 [facility] Comment on above: Performed By: #### L 501.5200, L500.4050, L501.2300 ####[facility] [address] [place], [address] ALK P 98 U/L Normal 45-117 [facility] Comment on above: Performed By: #### L 501.5200, L500.4050, L501.2300 ####[facility] [address] [place], [address] ALT [Catalytic activity/Vol] 20 U/L Normal 13-56 [facility] Comment on above: Performed By: #### L 501.5200, L500.4050, L501.2300 ####[facility] [address] [place], [address] AST [Catalytic activity/Vol] 21 U/L Normal 15-37 [facility] Comment on above: Performed By: #### L 501.5200, L500.4050, L501.2300 ####[facility] [address] [place], [address] Bilirubin [Mass/Vol] 0.30 mg/dL Normal 0.20-1.00 [facility] Comment on above: Result Comment: For patients on eltrombopag therapy, use of Dimension [place] TBIL is not recommended. Performed By: #### L 501.5200, L500.4050, L501.2300 ####[facility] [address] [place], [address] BUN/CRE 12.9 RATIO Normal 10-20 [facility] Comment on above: Performed By: #### L 501.5200, L500.4050, L501.2300 ####[facility] [address] [place], [address] CA,Total 8.4 mg/dL Low 8.5-10.1 [facility] Comment on above: Performed By: #### L 501.5200, L500.4050, L501.2300 ####[facility] [address] [place], [address] Chloride [Moles/Vol] 111 mmol/L High 98-107 [facility] Comment on above: Performed By: #### L 501.5200, L500.4050, L501.2300 ####[facility] [address] [place], [address] CO2 [Moles/Vol] 25.0 mmol/L Normal 21.0-32.0 [facility] Comment on above: Performed By: #### L 501.5200, L500.4050, L501.2300 ####[facility] [address] [place], [address] Creatinine [Mass/Vol] 0.62 mg/dL Normal 0.55-1.02 [facility] Comment on above: Result Comment: The validity of the calculated GFR GFRAA in patients over70 years has not been determined. Clinical correlation isessential. Performed By: #### L 501.5200, L500.4050, L501.2300 ####[facility] [address] [place], [address] ECRCL 93.75 ml/min Normal [facility] Comment on above: Performed By: #### L 501.5200, L500.4050, L501.2300 ####[facility] [address] [place], [address] EST GFR - AA 125 mL/min Normal >60 [facility] Comment on above: Result Comment: Afri can [place] GFR Calc Performed By: #### L 501.5200, L500.4050, L501.2300 ####[facility] [address] [place], [address] GAP 5 Normal 5-15 [facility] Comment on above: Performed By: #### L 501.5200, L500.4050, L501.2300 ####[facility] [address] [place], [address] GFR/1.73 sq M.predicted among non-blacks MDRD (S/P/Bld) [Vol rate/Area] 103 mL/min/{1.73_m2} Normal >60 [facility] Comment on above: Result Comment: Non- GFR Calc Performed By: #### L 501.5200, L500.4050, L501.2300 ####[facility] [address] [place], [address] Globulin (S) [Mass/Vol] 3.9 g/dL Normal 2.2-4.2 [facility] Comment on above: Performed By: #### L 501.5200, L500.4050, L501.2300 ####[facility] [address] [place], [address] Glucose [Mass/Vol] 161 mg/dL High 74-106 [facility] Comment on above: Result Comment: Fast ing Glucose result greater than or equal to 126 mg/dLsuggests DIABETES MELLITUS per A.D.A. criteria. Performed By: #### L 501.5200, L500.4050, L501.2300 ####[facility] [address] [place], [address] Potassium [Moles/Vol] 3.2 mmol/L Low 3.5-5.1 [facility] Comment on above: Performed By: #### L 501.5200, L500.4050, L501.2300 ####[facility] [address] [place], [address] Sodium [Moles/Vol] 140 mmol/L Normal 136-145 [facility] Comment on above: Performed By: #### L 501.5200, L500.4050, L501.2300 ####[facility] [address] [place], [address] T PROT 6.2 g/dL Low 6.4-8.2 [facility] Comment on above: Performed By: #### L 501.5200, L500.4050, L501.2300 ####[facility] [address] [place], [address] Urea nitrogen [Mass/Vol] 8 mg/dL Normal 7-18 [facility] Comment on above: Performed By: #### L 501.5200, L500.4050, L501.2300 ####[facility] [address] [place], [address] Discharge Instructionon 11-0 Discharge Instruction Normal [facility] Magnesiumon 01-13-2024 Magnesium [Mass/Vol] 1.8 mg/dL Normal 1.6-2.6 [facility] Comment on above: Order Comment: Comme nts: add to am labs Performed By: #### L 501.5200 ####[facility] [address] [place], [address] Magnesium [Mass/Vol] 1.8 mg/dL Normal 1.6-2.6 [facility] Comment on above: Performed By: #### L 501.5200, L500.4050, L501.2300 ####[facility] [address] [place], [address] Phosphoruson 01-13-2024 Phosphate [Mass/Vol] 2.8 mg/dL Normal 2.5-4.9 [facility] Comment on above: Performed By: #### L 501.5200, L500.4050, L501.2300 ####[facility] [address] [place], [address] 12 Lead EKGon 01-12-2024 12 Lead EKG Normal [facility] Bedside Glucoseon 01-12-2024 FINGERSTICK GLU 196 mg/dL High 74-106 [facility] Comment on above: Result Comment: DILIA GEMENT OF PATIENT CARE PER NURSING PROTOCOL Performed By: #### L 501.080 ####[facility] [address] [place], [address] FINGERSTICK GLU 156 mg/dL High 74-106 [facility] Comment on above: Result Comment: DILIA GEMENT OF PATIENT CARE PER NURSING PROTOCOL Performed By: #### L 501.080 ####[facility] [address] [place], [address] FINGERSTICK GLU 198 mg/dL High 74-106 [facility] Comment on above: Result Comment: DILIA GEMENT OF PATIENT CARE PER NURSING PROTOCOL Performed By: #### L 501.080 ####[facility] [address] [place], [address] CBC W/Diff, Automatedon Absolute Lymph 1.19 X10 3/uL Normal 0.83-4.51 [facility] Comment on above: Performed By: #### L 100.0100 ####[facility] [address] [place], [address] Absolute Neut 7.4 X10 3/uL Normal 2.0-7.7 [facility] Comment on above: Performed By: #### L 100.0100 ####[facility] [address] [place], [address] Basophils/100 WBC (Bld) 0.5 % Normal 0-1 [facility] Comment on above: Performed By: #### L 100.0100 ####[facility] [address] [place], [address] Eosinophils/100 WBC (Bld) 0.8 % Normal 0-5 [facility] Comment on above: Performed By: #### L 100.0100 ####[facility] [address] [place], [address] Erythrocyte distribution width (RBC) [Ratio] 19.1 % High 11.6-14.6 [facility] Comment on above: Performed By: #### L 100.0100 ####[facility] [address] [place], [address] Hematocrit (Bld) [Volume fraction] 28.6 % Low 37-47 [facility] Comment on above: Performed By: #### L 100.0100 ####[facility] [address] [place], [address] Hemoglobin (Bld) [Mass/Vol] 8.4 g/dL Low 12.0-15.0 [facility] Comment on above: Performed By: #### L 100.0100 ####[facility] [address] [place], [address] IG% 2.200 High 0.0-0.9 [facility] Comment on above: Result Comment: IG% - Immature Granulocytes (promyelocytes, myelocytes andmetamyelocytes) > 1% indicates that a LEFT SHIFT is Present. Performed By: #### L 100.0100 ####[facility] [address] [place], [address] Lymphocytes/100 WBC (Bld) 11.7 % Low 19-41 [facility] Comment on above: Performed By: #### L 100.0100 ####[facility] [address] [place], [address] MCH (RBC) [Entitic mass] 23.5 pg Low 27.0-32.0 [facility] Comment on above: Performed By: #### L 100.0100 ####[facility] [address] [place], [address] MCHC (RBC) [Mass/Vol] 29.4 g/dL Low 32-36 [facility] Comment on above: Performed By: #### L 100.0100 ####[facility] [address] [place], [address] MCV (RBC) [Entitic vol] 79.9 fL Low 81-99 [facility] Comment on above: Performed By: #### L 100.0100 ####[facility] [address] [place], [address] Monocytes/100 WBC (Bld) 11.8 % High 0-10 [facility] Comment on above: Performed By: #### L 100.0100 ####[facility] [address] [place], [address] Neutrophils/100 WBC (Bld) 73.0 % High 47-70 [facility] Comment on above: Performed By: #### L 100.0100 ####[facility] [address] [place], [address] Nucleated RBC (Bld) [#/Vol] 0.2 10*3/uL Normal 0-5 [facility] Comment on above: Performed By: #### L 100.0100 ####[facility] [address] [place], [address] Platelet mean volume (Bld) [Entitic vol] 8.8 fL Normal 6.2-12.0 [facility] Comment on above: Performed By: #### L 100.0100 ####[facility] [address] [place], [address] Platelets (Bld) [#/Vol] 338 10*3/uL Normal 150-450 [facility] Comment on above: Performed By: #### L 100.0100 ####[facility] [address] [place], [address] RBC (Bld) [#/Vol] 3.58 10*6/uL Low 4.2-5.4 [facility] Comment on above: Performed By: #### L 100.0100 ####[facility] [address] [place], [address] RDW SD 53.8 fl High 35.1-43.9 [facility] Comment on above: Performed By: #### L 100.0100 ####[facility] [address] [place], [address] WBC (Bld) [#/Vol] 10.1 10*3/uL Normal 4.4-11.0 [facility] Comment on above: Performed By: #### L 100.0100 ####[facility] [address] [place], [address] Absolute Lymph 1.67 X10 3/uL Normal 0.83-4.51 [facility] Comment on above: Performed By: #### L 500.4050, L501.9520, L100.0100, L501.2300, L501.5200 ####[facility] [address] [place], [address] Absolute Neut 7.3 X10 3/uL Normal 2.0-7.7 [facility] Comment on above: Performed By: #### L 500.4050, L501.9520, L100.0100, L501.2300, L501.5200 ####[facility] [address] [place], [address] Basophils/100 WBC (Bld) 0.4 % Normal 0-1 [facility] Comment on above: Performed By: #### L 500.4050, L501.9520, L100.0100, L501.2300, L501.5200 ####[facility] [address] [place], [address] Eosinophils/100 WBC (Bld) 1.5 % Normal 0-5 [facility] Comment on above: Performed By: #### L 500.4050, L501.9520, L100.0100, L501.2300, L501.5200 ####[facility] [address] [place], [address] Erythrocyte distribution width (RBC) [Ratio] 19.0 % High 11.6-14.6 [facility] Comment on above: Performed By: #### L 500.4050, L501.9520, L100.0100, L501.2300, L501.5200 ####[facility] [address] [place], [address] Hematocrit (Bld) [Volume fraction] 25.7 % Low 37-47 [facility] Comment on above: Performed By: #### L 500.4050, L501.9520, L100.0100, L501.2300, L501.5200 ####[facility] [address] [place], [address] Hemoglobin (Bld) [Mass/Vol] 7.9 g/dL Low 12.0-15.0 [facility] Comment on above: Performed By: #### L 500.4050, L501.9520, L100.0100, L501.2300, L501.5200 ####[facility] [address] [place], [address] IG% 1.600 High 0.0-0.9 [facility] Comment on above: Result Comment: IG% - Immature Granulocytes (promyelocytes, myelocytes andmetamyelocytes) > 1% indicates that a LEFT SHIFT is Present. Performed By: #### L 500.4050, L501.9520, L100.0100, L501.2300, L501.5200 ####[facility] [address] [place], [address] Lymphocytes/100 WBC (Bld) 16.0 % Low 19-41 [facility] Comment on above: Performed By: #### L 500.4050, L501.9520, L100.0100, L501.2300, L501.5200 ####[facility] [address] [place], [address] MCH (RBC) [Entitic mass] 24.1 pg Low 27.0-32.0 [facility] Comment on above: Performed By: #### L 500.4050, L501.9520, L100.0100, L501.2300, L501.5200 ####[facility] [address] [place], [address] MCHC (RBC) [Mass/Vol] 30.7 g/dL Low 32-36 [facility] Comment on above: Performed By: #### L 500.4050, L501.9520, L100.0100, L501.2300, L501.5200 ####[facility] [address] [place], [address] MCV (RBC) [Entitic vol] 78.4 fL Low 81-99 [facility] Comment on above: Performed By: #### L 500.4050, L501.9520, L100.0100, L501.2300, L501.5200 ####[facility] [address] [place], [address] Monocytes/100 WBC (Bld) 10.8 % High 0-10 [facility] Comment on above: Performed By: #### L 500.4050, L501.9520, L100.0100, L501.2300, L501.5200 ####[facility] [address] [place], [address] Neutrophils/100 WBC (Bld) 69.7 % Normal 47-70 [facility] Comment on above: Performed By: #### L 500.4050, L501.9520, L100.0100, L501.2300, L501.5200 ####[facility] [address] [place], [address] Nucleated RBC (Bld) [#/Vol] 0 10*3/uL Normal 0-5 [facility] Comment on above: Performed By: #### L 500.4050, L501.9520, L100.0100, L501.2300, L501.5200 ####[facility] [address] [place], [address] Platelet mean volume (Bld) [Entitic vol] 9.0 fL Normal 6.2-12.0 [facility] Comment on above: Performed By: #### L 500.4050, L501.9520, L100.0100, L501.2300, L501.5200 ####[facility] [address] [place], [address] Platelets (Bld) [#/Vol] 289 10*3/uL Normal 150-450 [facility] Comment on above: Performed By: #### L 500.4050, L501.9520, L100.0100, L501.2300, L501.5200 ####[facility] [address] [place], [address] RBC (Bld) [#/Vol] 3.28 10*6/uL Low 4.2-5.4 [facility] Comment on above: Performed By: #### L 500.4050, L501.9520, L100.0100, L501.2300, L501.5200 ####[facility] [address] [place], [address] RDW SD 52.6 fl High 35.1-43.9 [facility] Comment on above: Performed By: #### L 500.4050, L501.9520, L100.0100, L501.2300, L501.5200 ####[facility] [address] [place], [address] WBC (Bld) [#/Vol] 10.5 10*3/uL Normal 4.4-11.0 [facility] Comment on above: Performed By: #### L 500.4050, L501.9520, L100.0100, L501.2300, L501.5200 ####[facility] [address] [place], [address] CVS/PCIREPORTon 01-12-2024 CVS/PCIREPORT Normal [facility] Comprehensive Metabolic Prof ilon 01-12-2024 Albumin [Mass/Vol] 2.3 g/dL Low 3.2-5.0 [facility] Comment on above: Performed By: #### L 500.4050, L501.9520, L100.0100, L501.2300, L501.5200 ####[facility] [address] [place], [address] Albumin/Globulin [Mass ratio] 0.6 {ratio} Low 0.9-2.4 [facility] Comment on above: Performed By: #### L 500.4050, L501.9520, L100.0100, L501.2300, L501.5200 ####[facility] [address] [place], [address] ALK P 90 U/L Normal 45-117 [facility] Comment on above: Performed By: #### L 500.4050, L501.9520, L100.0100, L501.2300, L501.5200 ####[facility] [address] [place], [address] ALT [Catalytic activity/Vol] 21 U/L Normal 13-56 [facility] Comment on above: Performed By: #### L 500.4050, L501.9520, L100.0100, L501.2300, L501.5200 ####[facility] [address] [place], [address] AST [Catalytic activity/Vol] 20 U/L Normal 15-37 [facility] Comment on above: Performed By: #### L 500.4050, L501.9520, L100.0100, L501.2300, L501.5200 ####[facility] [address] [place], [address] Bilirubin [Mass/Vol] 0.50 mg/dL Normal 0.20-1.00 [facility] Comment on above: Result Comment: For patients on eltrombopag therapy, use of Dimension [place] TBIL is not recommended. Performed By: #### L 500.4050, L501.9520, L100.0100, L501.2300, L501.5200 ####[facility] [address] [place], [address] BUN/CRE 18.1 RATIO Normal 10-20 [facility] Comment on above: Performed By: #### L 500.4050, L501.9520, L100.0100, L501.2300, L501.5200 ####[facility] [address] [place], [address] CA,Total 8.8 mg/dL Normal 8.5-10.1 [facility] Comment on above: Performed By: #### L 500.4050, L501.9520, L100.0100, L501.2300, L501.5200 ####[facility] [address] [place], [address] Chloride [Moles/Vol] 110 mmol/L High 98-107 [facility] Comment on above: Performed By: #### L 500.4050, L501.9520, L100.0100, L501.2300, L501.5200 ####[facility] [address] [place], [address] CO2 [Moles/Vol] 24.0 mmol/L Normal 21.0-32.0 [facility] Comment on above: Performed By: #### L 500.4050, L501.9520, L100.0100, L501.2300, L501.5200 ####[facility] [address] [place], [address] Creatinine [Mass/Vol] 0.55 mg/dL Normal 0.55-1.02 [facility] Comment on above: Result Comment: The validity of the calculated GFR GFRAA in patients over70 years has not been determined. Clinical correlation isessential. Performed By: #### L 500.4050, L501.9520, L100.0100, L501.2300, L501.5200 ####[facility] [address] [place], [address] ECRCL 104.22 ml/min Normal [facility] Comment on above: Performed By: #### L 500.4050, L501.9520, L100.0100, L501.2300, L501.5200 ####[facility] [address] [place], [address] EST GFR - AA 143 mL/min Normal >60 [facility] Comment on above: Result Comment: Afri can [place] GFR Calc Performed By: #### L 500.4050, L501.9520, L100.0100, L501.2300, L501.5200 ####[facility] [address] [place], [address] GAP 6 Normal 5-15 [facility] Comment on above: Performed By: #### L 500.4050, L501.9520, L100.0100, L501.2300, L501.5200 ####[facility] [address] [place], [address] GFR/1.73 sq M.predicted among non-blacks MDRD (S/P/Bld) [Vol rate/Area] 118 mL/min/{1.73_m2} Normal >60 [facility] Comment on above: Result Comment: Non- GFR Calc Performed By: #### L 500.4050, L501.9520, L100.0100, L501.2300, L501.5200 ####[facility] [address] [place], [address] Globulin (S) [Mass/Vol] 3.7 g/dL Normal 2.2-4.2 [facility] Comment on above: Performed By: #### L 500.4050, L501.9520, L100.0100, L501.2300, L501.5200 ####[facility] [address] [place], [address] Glucose [Mass/Vol] 167 mg/dL High 74-106 [facility] Comment on above: Result Comment: Fast ing Glucose result greater than or equal to 126 mg/dLsuggests DIABETES MELLITUS per A.D.A. criteria. Performed By: #### L 500.4050, L501.9520, L100.0100, L501.2300, L501.5200 ####[facility] [address] [place], [address] Potassium [Moles/Vol] 3.8 mmol/L Normal 3.5-5.1 [facility] Comment on above: Performed By: #### L 500.4050, L501.9520, L100.0100, L501.2300, L501.5200 ####[facility] [address] [place], [address] Sodium [Moles/Vol] 140 mmol/L Normal 136-145 [facility] Comment on above: Performed By: #### L 500.4050, L501.9520, L100.0100, L501.2300, L501.5200 ####[facility] [address] [place], [address] T PROT 6.0 g/dL Low 6.4-8.2 [facility] Comment on above: Performed By: #### L 500.4050, L501.9520, L100.0100, L501.2300, L501.5200 ####[facility] [address] [place], [address] Urea nitrogen [Mass/Vol] 10 mg/dL Normal 7-18 [facility] Comment on above: Performed By: #### L 500.4050, L501.9520, L100.0100, L501.2300, L501.5200 ####[facility] [address] [place], [address] Consultation - Cardiologyon 01-12-2024 Consultation - Cardiology Normal [facility] Ferritinon 01-12-2024 Ferritin [Mass/Vol] 290 ng/mL High 8-252 [facility] Comment on above: Order Comment: Comme nts: add to am labs'TROP' Serial specimen #1, #2 or #3: 1add to am labs Performed By: #### L 501.4020, L500.4100, L503.6550, L503.6030 ####[facility] [address] [place], [place], [address] Iron+Iron Binding Capacityon 01-12-2024 Iron [Mass/Vol] 11 ug/dL Low 50-170 [facility] Comment on above: Order Comment: Comme nts: add to am labs'TROP' Serial specimen #1, #2 or #3: 1add to am labs Performed By: #### L 501.4020, L500.4100, L503.6550, L503.6030 ####[facility] [address] [place], [address] IRON SATURATION 6.7 Low 15.0-55.0 [facility] Comment on above: Order Comment: Comme nts: add to am labs'TROP' Serial specimen #1, #2 or #3: 1add to am labs Performed By: #### L 501.4020, L500.4100, L503.6550, L503.6030 ####[facility] [address] [place], [address] TIBC 163 ug/dL Low 250-450 [facility] Comment on above: Order Comment: Comme nts: add to am labs'TROP' Serial specimen #1, #2 or #3: 1add to am labs Performed By: #### L 501.4020, L500.4100, L503.6550, L503.6030 ####[facility] [address] [place], [address] L501.4020on 01-12-2024 TROPONIN-I HS 466 pg/mL Invalid Interpretation Code 3.0-54.0 [facility] Comment on above: Order Comment: Comme nts: add to am labs'TROP' Serial specimen #1, #2 or #3: 1add to am labs Result Comment: Crit ical Result(s) Called at: 08:57:24 01/12/2024 by: García to Annalise Gore. Results read back by same. Please Note: New Test Units and Gender Specific Reference Ranges. For more information see Policy Stat Procedure [place] High Sensitivity Troponin (TNIH) and attachments. Performed By: #### L 501.4020, L500.4100, L503.6550, L503.6030 ####[facility] [address] [place], [address] Legionella Antigen Urineon 1 03-13-2023 LEGU URINE, RANDOM Negative Presumptive negative for Legionella pneumophila serogroup 1 antigen in urine, suggesting no recent or current infection. Legionella Ag, Urine Negative (See interpretation below) Normal [facility] Comment on above: Performed By: #### M 300.4500, M300.4600 ####[facility] [address] [place], [address] Lipid Profileon 01-12-2024 Cholesterol [Mass/Vol] 69 mg/dL Normal 200 [facility] Comment on above: Order Comment: Comme nts: add to am labs'TROP' Serial specimen #1, #2 or #3: 1add to am labs Result Comment: <200 mg/dL Desirable 200-240 mg/dL Borderline >240 mg/dL High Risk Performed By: #### L 501.4020, L500.4100, L503.6550, L503.6030 ####[facility] [address] [place], [address] Cholesterol in HDL [Mass/Vol] 25 mg/dL Low [facility] Comment on above: Order Comment: Comme nts: add to am labs'TROP' Serial specimen #1, #2 or #3: 1add to am labs Result Comment: The drugs N-Acetylcysteine and Metamizole may falselydepress this assay. Reference Range HDL <40 mg/dL Low HDL Cholesterol HDL >or= 60 mg/dL High HDL Cholesterol Performed By: #### L 501.4020, L500.4100, L503.6550, L503.6030 ####[facility] [address] [place], [address] Cholesterol in LDL [Mass/Vol] 30 mg/dL Normal 0-130 [facility] Comment on above: Order Comment: Comme nts: add to am labs'TROP' Serial specimen #1, #2 or #3: 1add to am labs Performed By: #### L 501.4020, L500.4100, L503.6550, L503.6030 ####[facility] [address] [place], [address] Cholesterol in VLDL [Mass/Vol] 14 mg/dL Normal 5-40 [facility] Comment on above: Order Comment: Comme nts: add to am labs'TROP' Serial specimen #1, #2 or #3: 1add to am labs Performed By: #### L 501.4020, L500.4100, L503.6550, L503.6030 ####[facility] [address] [place], [address] Triglyceride [Mass/Vol] 71 mg/dL Normal [facility] Comment on above: Order Comment: Comme nts: [...] By: #### L 501.4020, L500.4100, L503.6550, L503.6030 ####[facility] [address] [place], [address] Magnesiumon 01-12-2024 Magnesium [Mass/Vol] 2.0 mg/dL Normal 1.6-2.6 [facility] Comment on above: Performed By: #### L 500.4050, L501.9520, L100.0100, L501.2300, L501.5200 ####[facility] [address] [place], [address] Phosphoruson 01-12-2024 Phosphate [Mass/Vol] 3.2 mg/dL Normal 2.5-4.9 [facility] Comment on above: Performed By: #### L 500.4050, L501.9520, L100.0100, L501.2300, L501.5200 ####[facility] [address] [place], [address] Stool Occult Blood iFOBon STOB Normal [facility] Comment on above: Performed By: #### M 100.7900 ####[facility] [address] [place], [address] Strep pneumoniae Antig(UR,CS F)on 01-12-2024 STPAG Normal [facility] Comment on above: Performed By: #### M 300.4500, M300.4600 ####[facility] [address] [place], [address] Thyroid Stim Hormone (TSH)on 01-12-2024 TSH 2.490 uIU/mL Normal 0.358-3.740 [facility] Comment on above: Performed By: #### L 500.4050, L501.9520, L100.0100, L501.2300, L501.5200 ####[facility] [address] [place], [address] 12 Lead EKGon 01-11-2024 12 Lead EKG Normal [facility] 12 Lead EKG Normal [facility] Basic Metabolic Profile (BMP )on 01-11-2024 BUN/CRE 13.8 RATIO Normal 10-20 [facility] Comment on above: Order Comment: 'TROP ' Serial specimen #1, #2 or #3: 1 Performed By: #### L 501.4020, L100.0100, L500.2500 ####[facility] [address] [place], [address] CA,Total 8.9 mg/dL Normal 8.5-10.1 [facility] Comment on above: Order Comment: 'TROP ' Serial specimen #1, #2 or #3: 1 Performed By: #### L 501.4020, L100.0100, L500.2500 ####[facility] [address] [place], [address] Chloride [Moles/Vol] 106 mmol/L Normal 98-107 [facility] Comment on above: Order Comment: 'TROP ' Serial specimen #1, #2 or #3: 1 Performed By: #### L 501.4020, L100.0100, L500.2500 ####[facility] [address] [place], [address] CO2 [Moles/Vol] 25.0 mmol/L Normal 21.0-32.0 [facility] Comment on above: Order Comment: 'TROP ' Serial specimen #1, #2 or #3: 1 Performed By: #### L 501.4020, L100.0100, L500.2500 ####[facility] [address] [place], [address] Creatinine [Mass/Vol] 0.65 mg/dL Normal 0.55-1.02 [facility] Comment on above: Order Comment: 'TROP ' Serial specimen #1, #2 or #3: 1 Result Comment: The validity of the calculated GFR GFRAA in patients over70 years has not been determined. Clinical correlation isessential. Performed By: #### L 501.4020, L100.0100, L500.2500 ####[facility] [address] [place], [address] ECRCL 88.73 ml/min Normal [facility] Comment on above: Order Comment: 'TROP ' Serial specimen #1, #2 or #3: 1 Performed By: #### L 501.4020, L100.0100, L500.2500 ####[facility] [address] [place], [address] EST GFR - AA 118 mL/min Normal >60 [facility] Comment on above: Order Comment: 'TROP ' Serial specimen #1, #2 or #3: 1 Result Comment: Afri can [place] GFR Calc Performed By: #### L 501.4020, L100.0100, L500.2500 ####[facility] [address] [place], [address] GAP 6 Normal 5-15 [facility] Comment on above: Order Comment: 'TROP ' Serial specimen #1, #2 or #3: 1 Performed By: #### L 501.4020, L100.0100, L500.2500 ####[facility] [address] [place], [address] GFR/1.73 sq M.predicted among non-blacks MDRD (S/P/Bld) [Vol rate/Area] 98 mL/min/{1.73_m2} Normal >60 [facility] Comment on above: Order Comment: 'TROP ' Serial specimen #1, #2 or #3: 1 Result Comment: Non- GFR Calc Performed By: #### L 501.4020, L100.0100, L500.2500 ####[facility] [address] [place], [address] Glucose [Mass/Vol] 165 mg/dL High 74-106 [facility] Comment on above: Order Comment: 'TROP ' Serial specimen #1, #2 or #3: 1 Result Comment: Fast ing Glucose result greater than or equal to 126 mg/dLsuggests DIABETES MELLITUS per A.D.A. criteria. Performed By: #### L 501.4020, L100.0100, L500.2500 ####[facility] [address] [place], [address] Potassium [Moles/Vol] 3.3 mmol/L Low 3.5-5.1 [facility] Comment on above: Order Comment: 'TROP ' Serial specimen #1, #2 or #3: 1 Performed By: #### L 501.4020, L100.0100, L500.2500 ####[facility] [address] [place], [address] Sodium [Moles/Vol] 138 mmol/L Normal 136-145 [facility] Comment on above: Order Comment: 'TROP ' Serial specimen #1, #2 or #3: 1 Performed By: #### L 501.4020, L100.0100, L500.2500 ####[facility] [address] [place], [address] Urea nitrogen [Mass/Vol] 9 mg/dL Normal 7-18 [facility] Comment on above: Order Comment: 'TROP ' Serial specimen #1, #2 or #3: 1 Performed By: #### L 501.4020, L100.0100, L500.2500 ####[facility] [address] [place], [address] Bedside Glucoseon 01-11-2024 FINGERSTICK GLU 155 mg/dL High 74-106 [facility] Comment on above: Result Comment: DILIA SALCEDO OF PATIENT CARE PER NURSING PROTOCOL Performed By: #### L 501.080 ####[facility] [address] [place], [address] CBC W/Diff, Automatedon 11-0 Absolute Lymph 1.46 X10 3/uL Normal 0.83-4.51 [facility] Comment on above: Performed By: #### L 501.4020, L100.0100, L500.2500 ####[facility] [address] [place], [address] Absolute Neut 9.9 X10 3/uL High 2.0-7.7 [facility] Comment on above: Performed By: #### L 501.4020, L100.0100, L500.2500 ####[facility] [address] [place], [address] Basophils/100 WBC (Bld) 0.5 % Normal 0-1 [facility] Comment on above: Performed By: #### L 501.4020, L100.0100, L500.2500 ####[facility] [address] [place], [address] Eosinophils/100 WBC (Bld) 1.1 % Normal 0-5 [facility] Comment on above: Performed By: #### L 501.4020, L100.0100, L500.2500 ####[facility] [address] [place], [address] Erythrocyte distribution width (RBC) [Ratio] 18.7 % High 11.6-14.6 [facility] Comment on above: Performed By: #### L 501.4020, L100.0100, L500.2500 ####[facility] [address] [place], [address] Hematocrit (Bld) [Volume fraction] 28.8 % Low 37-47 [facility] Comment on above: Performed By: #### L 501.4020, L100.0100, L500.2500 ####[facility] [address] [place], [address] Hemoglobin (Bld) [Mass/Vol] 8.9 g/dL Low 12.0-15.0 [facility] Comment on above: Performed By: #### L 501.4020, L100.0100, L500.2500 ####[facility] [address] [place], [address] IG% 2.900 High 0.0-0.9 [facility] Comment on above: Result Comment: IG% - Immature Granulocytes (promyelocytes, myelocytes andmetamyelocytes) > 1% indicates that a LEFT SHIFT is Present. Performed By: #### L 501.4020, L100.0100, L500.2500 ####[facility] [address] [place], [address] Lymphocytes/100 WBC (Bld) 11.1 % Low 19-41 [facility] Comment on above: Performed By: #### L 501.4020, L100.0100, L500.2500 ####[facility] [address] [place], [address] MCH (RBC) [Entitic mass] 24.3 pg Low 27.0-32.0 [facility] Comment on above: Performed By: #### L 501.4020, L100.0100, L500.2500 ####[facility] [address] [place], [address] MCHC (RBC) [Mass/Vol] 30.9 g/dL Low 32-36 [facility] Comment on above: Performed By: #### L 501.4020, L100.0100, L500.2500 ####[facility] [address] [place], [address] MCV (RBC) [Entitic vol] 78.7 fL Low 81-99 [facility] Comment on above: Performed By: #### L 501.4020, L100.0100, L500.2500 ####[facility] [address] [place], [address] Monocytes/100 WBC (Bld) 9.2 % Normal 0-10 [facility] Comment on above: Performed By: #### L 501.4020, L100.0100, L500.2500 ####[facility] [address] [place], [address] Neutrophils/100 WBC (Bld) 75.2 % High 47-70 [facility] Comment on above: Performed By: #### L 501.4020, L100.0100, L500.2500 ####[facility] [address] [place], [address] Nucleated RBC (Bld) [#/Vol] 0.2 10*3/uL Normal 0-5 [facility] Comment on above: Performed By: #### L 501.4020, L100.0100, L500.2500 ####[facility] [address] [place], [address] Platelet mean volume (Bld) [Entitic vol] 8.9 fL Normal 6.2-12.0 [facility] Comment on above: Performed By: #### L 501.4020, L100.0100, L500.2500 ####[facility] [address] [place], [address] Platelets (Bld) [#/Vol] 380 10*3/uL Normal 150-450 [facility] Comment on above: Performed By: #### L 501.4020, L100.0100, L500.2500 ####[facility] [address] [place], [address] RBC (Bld) [#/Vol] 3.66 10*6/uL Low 4.2-5.4 [facility] Comment on above: Performed By: #### L 501.4020, L100.0100, L500.2500 ####[facility] [address] [place], [address] RDW SD 52.1 fl High 35.1-43.9 [facility] Comment on above: Performed By: #### L 501.4020, L100.0100, L500.2500 ####[facility] [address] [place], [address] WBC (Bld) [#/Vol] 13.2 10*3/uL High 4.4-11.0 [facility] Comment on above: Performed By: #### L 501.4020, L100.0100, L500.2500 ####[facility] [address] [place], [address] Absolute Lymph 1.85 X10 3/uL Normal 0.83-4.51 [facility] Comment on above: Performed By: #### L 501.4020, L100.0100, L500.4050, L501.9520, L506.1000 ####[facility] [address] [place], [address] Absolute Neut 9.4 X10 3/uL High 2.0-7.7 [facility] Comment on above: Performed By: #### L 501.4020, L100.0100, L500.4050, L501.9520, L506.1000 ####[facility] [address] [place], [address] Basophils/100 WBC (Bld) 0.7 % Normal 0-1 [facility] Comment on above: Performed By: #### L 501.4020, L100.0100, L500.4050, L501.9520, L506.1000 ####[facility] [address] [place], [address] Eosinophils/100 WBC (Bld) 1.0 % Normal 0-5 [facility] Comment on above: Performed By: #### L 501.4020, L100.0100, L500.4050, L501.9520, L506.1000 ####[facility] [address] [place], [address] Erythrocyte distribution width (RBC) [Ratio] 18.7 % High 11.6-14.6 [facility] Comment on above: Performed By: #### L 501.4020, L100.0100, L500.4050, L501.9520, L506.1000 ####[facility] [address] [place], [address] Hematocrit (Bld) [Volume fraction] 31.0 % Low 37-47 [facility] Comment on above: Performed By: #### L 501.4020, L100.0100, L500.4050, L501.9520, L506.1000 ####[facility] [address] [place], [address] Hemoglobin (Bld) [Mass/Vol] 9.4 g/dL Low 12.0-15.0 [facility] Comment on above: Performed By: #### L 501.4020, L100.0100, L500.4050, L501.9520, L506.1000 ####[facility] [address] [place], [address] IG% 2.300 High 0.0-0.9 [facility] Comment on above: Result Comment: IG% - Immature Granulocytes (promyelocytes, myelocytes andmetamyelocytes) > 1% indicates that a LEFT SHIFT is Present. Performed By: #### L 501.4020, L100.0100, L500.4050, L501.9520, L506.1000 ####[facility] [address] [place], [address] Lymphocytes/100 WBC (Bld) 14.4 % Low 19-41 [facility] Comment on above: Performed By: #### L 501.4020, L100.0100, L500.4050, L501.9520, L506.1000 ####[facility] [address] [place], [address] MCH (RBC) [Entitic mass] 24.0 pg Low 27.0-32.0 [facility] Comment on above: Performed By: #### L 501.4020, L100.0100, L500.4050, L501.9520, L506.1000 ####[facility] [address] [place], [address] MCHC (RBC) [Mass/Vol] 30.3 g/dL Low 32-36 [facility] Comment on above: Performed By: #### L 501.4020, L100.0100, L500.4050, L501.9520, L506.1000 ####[facility] [address] [place], [address] MCV (RBC) [Entitic vol] 79.1 fL Low 81-99 [facility] Comment on above: Performed By: #### L 501.4020, L100.0100, L500.4050, L501.9520, L506.1000 ####[facility] [address] [place], [address] Monocytes/100 WBC (Bld) 8.6 % Normal 0-10 [facility] Comment on above: Performed By: #### L 501.4020, L100.0100, L500.4050, L501.9520, L506.1000 ####[facility] [address] [place], [address] Neutrophils/100 WBC (Bld) 73.0 % High 47-70 [facility] Comment on above: Performed By: #### L 501.4020, L100.0100, L500.4050, L501.9520, L506.1000 ####[facility] [address] [place], [address] Nucleated RBC (Bld) [#/Vol] 0 10*3/uL Normal 0-5 [facility] Comment on above: Performed By: #### L 501.4020, L100.0100, L500.4050, L501.9520, L506.1000 ####[facility] [address] [place], [address] Platelet mean volume (Bld) [Entitic vol] 9.0 fL Normal 6.2-12.0 [facility] Comment on above: Performed By: #### L 501.4020, L100.0100, L500.4050, L501.9520, L506.1000 ####[facility] [address] [place], [address] Platelets (Bld) [#/Vol] 411 10*3/uL Normal 150-450 [facility] Comment on above: Performed By: #### L 501.4020, L100.0100, L500.4050, L501.9520, L506.1000 ####[facility] [address] [place], [address] RBC (Bld) [#/Vol] 3.92 10*6/uL Low 4.2-5.4 [facility] Comment on above: Performed By: #### L 501.4020, L100.0100, L500.4050, L501.9520, L506.1000 ####[facility] [address] [place], [address] RDW SD 52.8 fl High 35.1-43.9 [facility] Comment on above: Performed By: #### L 501.4020, L100.0100, L500.4050, L501.9520, L506.1000 ####[facility] [address] [place], [address] WBC (Bld) [#/Vol] 12.9 10*3/uL High 4.4-11.0 [facility] Comment on above: Performed By: #### L 501.4020, L100.0100, L500.4050, L501.9520, L506.1000 ####[facility] [address] [place], [address] CTA Chest W/WO Contraston CTA Chest W/WO Contrast Normal [facility] Chest PA and Lateralon 01-10 Chest PA and Lateral Normal [facility] Comprehensive Metabolic Prof ilon 01-11-2024 Albumin [Mass/Vol] 3.0 g/dL Low 3.2-5.0 [facility] Comment on above: Order Comment: 1 Performed By: #### L 501.4020, L100.0100, L500.4050, L501.9520, L506.1000 ####[facility] [address] [place], [address] Albumin/Globulin [Mass ratio] 0.7 {ratio} Low 0.9-2.4 [facility] Comment on above: Order Comment: 1 Performed By: #### L 501.4020, L100.0100, L500.4050, L501.9520, L506.1000 ####[facility] [address] [place], [address] ALK P 103 U/L Normal 45-117 [facility] Comment on above: Order Comment: 1 Performed By: #### L 501.4020, L100.0100, L500.4050, L501.9520, L506.1000 ####[facility] [address] [place], [address] ALT [Catalytic activity/Vol] 21 U/L Normal 13-56 [facility] Comment on above: Order Comment: 1 Performed By: #### L 501.4020, L100.0100, L500.4050, L501.9520, L506.1000 ####[facility] [address] [place], [address] AST [Catalytic activity/Vol] 13 U/L Low 15-37 [facility] Comment on above: Order Comment: 1 Performed By: #### L 501.4020, L100.0100, L500.4050, L501.9520, L506.1000 ####[facility] [address] [place], [address] Bilirubin [Mass/Vol] 0.50 mg/dL Normal 0.20-1.00 [facility] Comment on above: Order Comment: 1 Result Comment: For patients on eltrombopag therapy, use of Dimension [place] TBIL is not recommended. Performed By: #### L 501.4020, L100.0100, L500.4050, L501.9520, L506.1000 ####[facility] [address] [place], [address] BUN/CRE 8.7 RATIO Low 10-20 [facility] Comment on above: Order Comment: 1 Performed By: #### L 501.4020, L100.0100, L500.4050, L501.9520, L506.1000 ####[facility] [address] [place], [address] CA,Total 9.2 mg/dL Normal 8.5-10.1 [facility] Comment on above: Order Comment: 1 Performed By: #### L 501.4020, L100.0100, L500.4050, L501.9520, L506.1000 ####[facility] [address] [place], [address] Chloride [Moles/Vol] 107 mmol/L Normal 98-107 [facility] Comment on above: Order Comment: 1 Performed By: #### L 501.4020, L100.0100, L500.4050, L501.9520, L506.1000 ####[facility] [address] [place], [address] CO2 [Moles/Vol] 25.0 mmol/L Normal 21.0-32.0 [facility] Comment on above: Order Comment: 1 Performed By: #### L 501.4020, L100.0100, L500.4050, L501.9520, L506.1000 ####[facility] [address] [place], [address] Creatinine [Mass/Vol] 0.69 mg/dL Normal 0.55-1.02 [facility] Comment on above: Order Comment: 1 Result Comment: The validity of the calculated GFR GFRAA in patients over70 years has not been determined. Clinical correlation isessential. Performed By: #### L 501.4020, L100.0100, L500.4050, L501.9520, L506.1000 ####[facility] [address] [place], [address] EST GFR - AA 110 mL/min Normal >60 [facility] Comment on above: Order Comment: 1 Result Comment: Afri can [place] GFR Calc Performed By: #### L 501.4020, L100.0100, L500.4050, L501.9520, L506.1000 ####[facility] [address] [place], [address] GAP 8 Normal 5-15 [facility] Comment on above: Order Comment: 1 Performed By: #### L 501.4020, L100.0100, L500.4050, L501.9520, L506.1000 ####[facility] [address] [place], [address] GFR/1.73 sq M.predicted among non-blacks MDRD (S/P/Bld) [Vol rate/Area] 91 mL/min/{1.73_m2} Normal >60 [facility] Comment on above: Order Comment: 1 Result Comment: Non- GFR Calc Performed By: #### L 501.4020, L100.0100, L500.4050, L501.9520, L506.1000 ####[facility] [address] [place], [address] Globulin (S) [Mass/Vol] 4.3 g/dL High 2.2-4.2 [facility] Comment on above: Order Comment: 1 Performed By: #### L 501.4020, L100.0100, L500.4050, L501.9520, L506.1000 ####[facility] [address] [place], [address] Glucose [Mass/Vol] 165 mg/dL High 74-106 [facility] Comment on above: Order Comment: 1 Result Comment: Fast ing Glucose result greater than or equal to 126 mg/dLsuggests DIABETES MELLITUS per A.D.A. criteria. Performed By: #### L 501.4020, L100.0100, L500.4050, L501.9520, L506.1000 ####[facility] [address] [place], [address] Potassium [Moles/Vol] 3.1 mmol/L Low 3.5-5.1 [facility] Comment on above: Order Comment: 1 Performed By: #### L 501.4020, L100.0100, L500.4050, L501.9520, L506.1000 ####[facility] [address] [place], [address] Sodium [Moles/Vol] 139 mmol/L Normal 136-145 [facility] Comment on above: Order Comment: 1 Performed By: #### L 501.4020, L100.0100, L500.4050, L501.9520, L506.1000 ####[facility] [address] [place], [address] T PROT 7.3 g/dL Normal 6.4-8.2 [facility] Comment on above: Order Comment: 1 Performed By: #### L 501.4020, L100.0100, L500.4050, L501.9520, L506.1000 ####[facility] [address] [place], [address] Urea nitrogen [Mass/Vol] 6 mg/dL Low 7-18 [facility] Comment on above: Order Comment: 1 Performed By: #### L 501.4020, L100.0100, L500.4050, L501.9520, L506.1000 ####[facility] [address] [place], [address] D-Dimer Quantitative (DVT/PE )on 01-11-2024 D-DIMER QUANT 1.58 FEU/ug/m Invalid Interpretation Code 0.27-0.49 [facility] Comment on above: Result Comment: D-Di emily ELEVATED (>0.49): Additional studies and clinicalassessments are indicated to conclude diagnosis of:Deep Vein Thrombosis (DVT) or Pulmonary Embolism (PE)RESULTS CALLED TO MARKUS 01/11/24 1827 Kathia Stone.REPORT READ BACK BY .SAME Performed By: #### L 300.8000 ####[facility] [address] [place], [address] Echo Complete W/ Contraston 01-11-2024 Echo Complete W/ Contrast Normal [facility] Emergency Department Summary on 01-11-2024 Emergency Department Summary Normal [facility] H AND P Exam - Hospitaliston 01-11-2024 H&P Exam - Hospitalist Normal [facility] L501.4020on 01-11-2024 TROPONIN-I HS 624 pg/mL Invalid Interpretation Code 3.0-54.0 [facility] Comment on above: Order Comment: 'TROP ' Serial specimen #1, #2 or #3: 2 Result Comment: Crit ical Result(s) Called at: 23:17:55 01/11/2024 by:Annalise BROWN. Results read back by same. Please Note: New Test Units and Gender Specific Reference Ranges. For more information see Policy Stat Procedure [place] High Sensitivity Troponin (TNIH) and attachments. Performed By: #### L 501.4020 ####[facility] [address] [place], [address] TROPONIN-I HS 581 pg/mL Invalid Interpretation Code 3.0-54.0 [facility] Comment on above: Order Comment: 'TROP ' Serial specimen #1, #2 or #3: 1 Result Comment: Crit ical Result(s) Called at: 18:32:20 01/11/2024 by: KYAW TOLEDO. Results read back by same. Please Note: New Test Units and Gender Specific Reference Ranges. For more information see Policy Stat Procedure [place] High Sensitivity Troponin (TNIH) and attachments. Performed By: #### L 501.4020, L100.0100, L500.2500 ####[facility] [address] [place], [address] TROPONIN-I HS 570 pg/mL Invalid Interpretation Code 3.0-54.0 [facility] Comment on above: Order Comment: 1 Result Comment: Crit ical Result(s) Called at: 16:27:33 01/11/2024 by: KYAW GRECO. Results read back by same. Please Note: New Test Units and Gender Specific Reference Ranges. For more information see Policy Stat Procedure [place] High Sensitivity Troponin (TNIH) and attachments. Performed By: #### L 501.4020, L100.0100, L500.4050, L501.9520, L506.1000 ####[facility] [address] [place], [address] Thyroid Stim Hormone (TSH)on 01-11-2024 TSH 2.240 uIU/mL Normal 0.358-3.740 [facility] Comment on above: Order Comment: 1 Performed By: #### L 501.4020, L100.0100, L500.4050, L501.9520, L506.1000 ####[facility] [address] [place], [address] Vitamin D,25 Hydroxyon 01-10 Vitamin D 25-OH 17.8 ng/mL Normal [facility] Comment on above: Result Comment: Magdalena min D 25(OH) Status Range Deficiency <20 ng/mL (50nmol/L) Insufficiency 20 - 30 ng/mL (50 - 75 nmol/L) Sufficiency 30 - 100 ng/mL (75 - 250 nmol/L) Toxicity >100 ng/mL (>250 nmol/L) Performed By: #### L 501.4020, L100.0100, L500.4050, L501.9520, L506.1000 ####[facility] [address] [place], [address] CBC W Auto Differential pane l (Bld)on 09-22-2023 Basophils (Bld) [#/Vol] NINF [facility] Basophils/100 WBC (Bld) 0.4 % [facility] Differential cell count method Nom (Bld) Auto [facility] Eosinophils (Bld) [#/Vol] 0.12 10*3/uL [facility] Eosinophils/100 WBC (Bld) 2.3 % [facility] Erythrocyte distribution width (RBC) [Ratio] 17.6 % High 11.5 - 15.0 % [facility] Hematocrit (Bld) [Volume fraction] 37.3 % 36.0 - 46.0 % [facility] Hemoglobin (Bld) [Mass/Vol] 11.7 g/dL 11.5 - 15.5 g/dL [facility] Immature granulocytes (Bld) [#/Vol] 0.03 10*3/uL [facility] Immature granulocytes/100 WBC (Bld) 0.6 % [facility] Interpretation and review of laboratory results Abnormal [facility] Lymphocytes (Bld) [#/Vol] 1.64 10*3/uL [facility] Lymphocytes/100 WBC (Bld) 31.2 % [facility] MCH (RBC) [Entitic mass] 25.1 pg Low 26.0 - 34.0 pg [facility] MCHC (RBC) [Mass/Vol] 31.4 g/dL 30.5 - 36.0 g/dL [facility] MCV (RBC) [Entitic vol] 80.0 fL 80.0 - 100.0 fL [facility] Monocytes (Bld) [#/Vol] 0.49 10*3/uL [facility] Monocytes/100 WBC (Bld) 9.3 % [facility] Neutrophils (Bld) [#/Vol] 2.95 10*3/uL [facility] Neutrophils/100 WBC (Bld) 56.2 % [facility] Nucleated RBC (Bld) [#/Vol] [facility] Nucleated RBC/100 WBC (Bld) [Ratio] [facility] Platelet mean volume (Bld) [Entitic vol] 9.3 fL 9.0 - 12.7 fL [facility] Platelets (Bld) [#/Vol] 260 10*3/uL [facility] RBC (Bld) [#/Vol] 4.66 10*6/uL 3.90 - 5.2 0 m/uL [facility] WBC (Bld) [#/Vol] 5.25 10*3/uL [facility] Comprehensive metabolic 2000 panelon 09-22-2023 Albumin [Mass/Vol] 4.1 g/dL 3.9 - 4.9 g/dL [facility] ALP [Catalytic activity/Vol] 73 U/L 34 - 123 U/L [facility] ALT With P-5'-P [Catalytic activity/Vol] 14 U/L 7 - 38 U/L [facility] Anion gap [Moles/Vol] 11 mmol/L 8 - 15 mmol/L [facility] AST With P-5'-P [Catalytic activity/Vol] 15 U/L 13 - 35 U/L [facility] Bilirubin [Mass/Vol] 0.2 mg/dL 0.2 - 1 .3 mg/dL [facility] Calcium [Mass/Vol] 9.2 mg/dL 8.5 - 10. 2 mg/dL [facility] Chloride [Moles/Vol] 105 mmol/L 98 - 10 7 mmol/L [facility] CO2 [Moles/Vol] 24 mmol/L 22 - 30 mmol/L [facility] Creatinine [Mass/Vol] 0.53 mg/dL Low 0.58 - 0.96 mg/dL [facility] GFR/1.73 sq M.predicted among non-blacks MDRD (S/P/Bld) [Vol rate/Area] 104 mL/min/{1.73_m2} - PINF [facility] Comment on above: Estimated Glomerular Filtration Rate [...] 136 mg/dL High 74 - 99 mg/dL [facility] Comment on above: The [place] Diab[employer] s Association (ADA) provides guidance for [...] Standards of Medical Care in Diabetes 2016, [place] [employer] Association. Diabetes Care. 2016.39(Suppl 1). Interpretation and review of laboratory results Abnormal [facility] Potassium [Moles/Vol] 3.9 mmol/L 3.7 - 5.1 mmol/L [facility] Protein [Mass/Vol] 6.7 g/dL 6.3 - 8.0 g/dL [facility] Sodium [Moles/Vol] 140 mmol/L 136 - 144 mmol/L [facility] Urea nitrogen [Mass/Vol] 15 mg/dL 7 - 21 mg/dL [facility] CBC W Auto Differential pane l (Bld)on 06-16-2023 Basophils (Bld) [#/Vol] 0.03 10*3/uL <0.11 k/uL [facility] Basophils/100 WBC (Bld) 0.5 % [facility] Differential cell count method Nom (Bld) Auto [facility] Eosinophils (Bld) [#/Vol] 0.11 10*3/uL <0.46 k/uL [facility] Eosinophils/100 WBC (Bld) 1.8 % [facility] Erythrocyte distribution width (RBC) [Ratio] 20.1 % High 11.5 - 15.0 % [facility] Hematocrit (Bld) [Volume fraction] 40.9 % 36.0 - 46.0 % [facility] Hemoglobin (Bld) [Mass/Vol] 12.7 g/dL 11.5 - 15.5 g/dL [facility] Immature granulocytes (Bld) [#/Vol] <0.10 k/uL [facility] Immature granulocytes/100 WBC (Bld) 0.3 % [facility] Lymphocytes (Bld) [#/Vol] 1.83 10*3/uL 1.00 - 4.00 k/uL [facility] Lymphocytes/100 WBC (Bld) 29.9 % [facility] MCH (RBC) [Entitic mass] 25.3 pg Low 26.0 - 34.0 pg [facility] MCHC (RBC) [Mass/Vol] 31.1 g/dL 30.5 - 36.0 g/dL [facility] MCV (RBC) [Entitic vol] 81.5 fL 80.0 - 100.0 fL [facility] Monocytes (Bld) [#/Vol] 0.40 10*3/uL <0.87 k/uL [facility] Monocytes/100 WBC (Bld) 6.5 % [facility]ld[facility] [#/Vol] 3.73 10*3/uL 1.45 - 7.50 k/uL [facility] Neutrophils/100 WBC (Bld) 61.0 % [facility] Nucleated RBC (Bld) [#/Vol] <0.01 k/uL [facility] Nucleated RBC/100 WBC (Bld) [Ratio] 0.0 /100 WBC [facility] Platelet mean volume (Bld) [Entitic vol] 10.6 fL 9.0 - 12.7 fL [facility] Platelets (Bld) [#/Vol] 244 10*3/uL 150 - 400 k/uL [facility] RBC (Bld) [#/Vol] 5.02 10*6/uL 3.90 - 5.2 0 m/uL [facility] WBC (Bld) [#/Vol] 6.12 10*3/uL 3.70 - 11. 00 k/uL [facility] Comprehensive metabolic 2000 panelon 06-16-2023 Albumin [Mass/Vol] 4.6 g/dL 3.9 - 4.9 g/dL [facility] ALP [Catalytic activity/Vol] 65 U/L 34 - 123 U/L [facility] ALT With P-5'-P [Catalytic activity/Vol] 14 U/L 7 - 38 U/L [facility] Anion gap [Moles/Vol] 10 mmol/L 9 - 18 mmol/L [facility] AST With P-5'-P [Catalytic activity/Vol] 16 U/L 13 - 35 U/L [facility] Bilirubin [Mass/Vol] 0.2 mg/dL 0.2 - 1 .3 mg/dL [facility] Calcium [Mass/Vol] 9.4 mg/dL 8.5 - 10. 2 mg/dL [facility] Chloride [Moles/Vol] 107 mmol/L High 97 - 10 5 mmol/L [facility] CO2 [Moles/Vol] 24 mmol/L 22 - 30 mmol/L [facility] Creatinine [Mass/Vol] 0.60 mg/dL 0.58 - 0.96 mg/dL [facility] Estimated Glomerular Filtration Rate 102 mL/min/1.73m >=60 mL/min/1.73m [facility] Glucose [Mass/Vol] 114 mg/dL High 74 - 99 mg/dL [facility] Potassium [Moles/Vol] 3.7 mmol/L 3.7 - 5.1 mmol/L [facility] Protein [Mass/Vol] 7.0 g/dL 6.3 - 8.0 g/dL [facility] Sodium [Moles/Vol] 141 mmol/L 136 - 144 mmol/L [facility] Urea nitrogen [Mass/Vol] 15 mg/dL 7 - 21 mg/dL [facility] CBC W Auto Differential pane l (Bld)on 01-20-2023 Basophils (Bld) [#/Vol] <0.11 k/uL [facility] Basophils/100 WBC (Bld) 0.4 % [facility] Differential cell count method Nom (Bld) Auto [facility] Eosinophils (Bld) [#/Vol] 0.10 10*3/uL <0.46 k/uL [facility] Eosinophils/100 WBC (Bld) 1.8 % [facility] Erythrocyte distribution width (RBC) [Ratio] 18.2 % High 11.5 - 15.0 % [facility] Hematocrit (Bld) [Volume fraction] 36.7 % 36.0 - 46.0 % [facility] Hemoglobin (Bld) [Mass/Vol] 11.5 g/dL 11.5 - 15.5 g/dL [facility] Immature granulocytes (Bld) [#/Vol] 0.03 10*3/uL <0.10 k/uL [facility] Immature granulocytes/100 WBC (Bld) 0.5 % [facility] Lymphocytes (Bld) [#/Vol] 1.16 10*3/uL 1.00 - 4.00 k/uL [facility] Lymphocytes/100 WBC (Bld) 21.1 % [facility] MCH (RBC) [Entitic mass] 25.1 pg Low 26.0 - 34.0 pg [facility] MCHC (RBC) [Mass/Vol] 31.3 g/dL 30.5 - 36.0 g/dL [facility] MCV (RBC) [Entitic vol] 80.1 fL 80.0 - 100.0 fL [facility] Monocytes (Bld) [#/Vol] 0.42 10*3/uL <0.87 k/uL [facility] Monocytes/100 WBC (Bld) 7.7 % [facility] Neutrophils (Bld) [#/Vol] 3.76 10*3/uL 1.45 - 7.50 k/uL [facility] Neutrophils/100 WBC (Bld) 68.5 % [facility] Nucleated RBC (Bld) [#/Vol] <0.01 k/uL [facility] Nucleated RBC/100 WBC (Bld) [Ratio] 0.0 /100 WBC [facility] Platelet mean volume (Bld) [Entitic vol] 9.5 fL 9.0 - 12.7 fL [facility] Platelets (Bld) [#/Vol] 229 10*3/uL 150 - 400 k/uL [facility] RBC (Bld) [#/Vol] 4.58 10*6/uL 3.90 - 5.2 0 m/uL [facility] WBC (Bld) [#/Vol] 5.49 10*3/uL 3.70 - 11. 00 k/uL [facility] Comprehensive metabolic 2000 panelon 01-20-2023 Albumin [Mass/Vol] 4.5 g/dL 3.9 - 4.9 g/dL [facility] ALP [Catalytic activity/Vol] 76 U/L 34 - 123 U/L [facility] ALT With P-5'-P [Catalytic activity/Vol] 17 U/L 7 - 38 U/L [facility] Anion gap [Moles/Vol] 11 mmol/L 9 - 18 mmol/L [facility] AST With P-5'-P [Catalytic activity/Vol] 17 U/L 13 - 35 U/L [facility] Bilirubin [Mass/Vol] 0.3 mg/dL 0.2 - 1 .3 mg/dL [facility] Calcium [Mass/Vol] 9.6 mg/dL 8.5 - 10. 2 mg/dL [facility] Chloride [Moles/Vol] 106 mmol/L High 97 - 10 5 mmol/L [facility] CO2 [Moles/Vol] 23 mmol/L 22 - 30 mmol/L [facility] Creatinine [Mass/Vol] 0.61 mg/dL 0.58 - 0.96 mg/dL [facility] Estimated Glomerular Filtration Rate 101 mL/min/1.73m >=60 mL/min/1.73m [facility] Glucose [Mass/Vol] 132 mg/dL High 74 - 99 mg/dL [facility] Potassium [Moles/Vol] 3.6 mmol/L Low 3.7 - 5.1 mmol/L [facility] Protein [Mass/Vol] 7.4 g/dL 6.3 - 8.0 g/dL [facility] Sodium [Moles/Vol] 140 mmol/L 136 - 144 mmol/L [facility] Urea nitrogen [Mass/Vol] 17 mg/dL 7 - 21 mg/dL [facility] No Panel InformationOrdered By: Alisa Escobar on 12-30-2022 Thyroid Stimulating Hormone (TSH) 1.73 uIU/mL 0.358-3.74 [facility] CBC W Auto Differential pane l (Bld)on 10-14-2022 Basophils (Bld) [#/Vol] 0.03 10*3/uL <0.11 k/uL [facility] Basophils/100 WBC (Bld) 0.4 % [facility] Differential cell count method Nom (Bld) Auto [facility] Eosinophils (Bld) [#/Vol] 0.20 10*3/uL <0.46 k/uL [facility] Eosinophils/100 WBC (Bld) 2.8 % [facility] Erythrocyte distribution width (RBC) [Ratio] 17.1 % High 11.5 - 15.0 % [facility] Hematocrit (Bld) [Volume fraction] 38.7 % 36.0 - 46.0 % [facility] Hemoglobin (Bld) [Mass/Vol] 12.4 g/dL 11.5 - 15.5 g/dL [facility] Immature granulocytes (Bld) [#/Vol] 0.04 10*3/uL <0.10 k/uL [facility] Immature granulocytes/100 WBC (Bld) 0.6 % [facility] Lymphocytes (Bld) [#/Vol] 2.47 10*3/uL 1.00 - 4.00 k/uL [facility] Lymphocytes/100 WBC (Bld) 34.5 % [facility] MCH (RBC) [Entitic mass] 27.0 pg 26.0 - 34.0 pg [facility] MCHC (RBC) [Mass/Vol] 32.0 g/dL 30.5 - 36.0 g/dL [facility] MCV (RBC) [Entitic vol] 84.1 fL 80.0 - 100.0 fL [facility] Monocytes (Bld) [#/Vol] 0.48 10*3/uL <0.87 k/uL [facility] Monocytes/100 WBC (Bld) 6.7 % [facility] Neutrophils (Bld) [#/Vol] 3.93 10*3/uL 1.45 - 7.50 k/uL [facility] Neutrophils/100 WBC (Bld) 55.0 % [facility] Nucleated RBC (Bld) [#/Vol] <0.01 k/uL [facility] Nucleated RBC/100 WBC (Bld) [Ratio] 0.0 /100 WBC [facility] Platelet mean volume (Bld) [Entitic vol] 11.2 fL 9.0 - 12.7 fL [facility] Platelets (Bld) [#/Vol] 231 10*3/uL 150 - 400 k/uL [facility] RBC (Bld) [#/Vol] 4.60 10*6/uL 3.90 - 5.2 0 m/uL [facility] WBC (Bld) [#/Vol] 7.15 10*3/uL 3.70 - 11. 00 k/uL [facility] Comprehensive metabolic 2000 panelon 10-14-2022 Albumin [Mass/Vol] 4.4 g/dL 3.9 - 4.9 g/dL [facility] ALP [Catalytic activity/Vol] 74 U/L 34 - 123 U/L [facility] ALT With P-5'-P [Catalytic activity/Vol] 10 U/L 7 - 38 U/L [facility] Anion gap [Moles/Vol] 12 mmol/L 9 - 18 mmol/L [facility] AST With P-5'-P [Catalytic activity/Vol] 20 U/L 13 - 35 U/L [facility] Bilirubin [Mass/Vol] 0.2 mg/dL 0.2 - 1 .3 mg/dL [facility] Calcium [Mass/Vol] 9.4 mg/dL 8.5 - 10. 2 mg/dL [facility] Chloride [Moles/Vol] 105 mmol/L 97 - 10 5 mmol/L [facility] CO2 [Moles/Vol] 24 mmol/L 22 - 30 mmol/L [facility] Creatinine [Mass/Vol] 0.62 mg/dL 0.58 - 0.96 mg/dL [facility] Estimated Glomerular Filtration Rate 101 mL/min/1.73m >=60 mL/min/1.73m [facility] Glucose [Mass/Vol] 155 mg/dL High 74 - 99 mg/dL [facility] Potassium [Moles/Vol] 3.8 mmol/L 3.7 - 5.1 mmol/L [facility] Protein [Mass/Vol] 6.7 g/dL 6.3 - 8.0 g/dL [facility] Sodium [Moles/Vol] 141 mmol/L 136 - 144 mmol/L [facility] Urea nitrogen [Mass/Vol] 23 mg/dL High 7 - 21 mg/dL [facility] ESR Westergren method (Bld) [Velocity]on 10-14-2022 ESR (Bld) [Velocity] 2 mm/h 0 - 20 mm/hr [facility] Basophil percentageOrdered B y: Alisa Williamnger on 05-06-2022 Bilirubin [Mass/Vol] 0.40 mg/dL 0.20-1.00 [facility] Comment on above: For patients on eltr ombopag therapy, use of Dimension [place] TBIL is not recommended. Chloride [Moles/Vol] 106 mmol/L 98-107 [facility] Cholesterol [Mass/Vol] 184 mg/dL <200 [facility] Comment on above: <200 mg/dL Desirable 200-240 mg/dL Borderline >240 mg/dL High Risk Glucose [Mass/Vol] 159 mg/dL 74-106 [facility] Comment on above: Fasting Glucose resu lt greater than or equal to 126 mg/dL suggests DIABETES MELLITUS per A.D.A. criteria. Potassium [Moles/Vol] 3.5 mmol/L 3.5-5.1 [facility] Protein [Mass/Vol] 6.9 g/dL 6.4-8.2 [facility] Sodium [Moles/Vol] 142 mmol/L 136-145 [facility] Triglyceride [Mass/Vol] 95 mg/dL <199 [facility] Comment on above: The drugs N-Acetylcy steine and Metamizole may falsely depress this assay.Serum Triglycerides Reference Interval Normal <150 mg/dL Borderline high 150 - 199 mg/dL High 200 - 499 mg/dL Very High > or = 500 mg/dL Laboratory - Chemistry and C hemistry - challengeOrdered By: Alisa Escobar on 05-06-2022 ALP [Catalytic activity/Vol] 72 U/L 45-117 [facility] ALT [Catalytic activity/Vol] 21 U/L 13-56 [facility] CO2 [Moles/Vol] 29.0 mmol/L 21.0-32.0 [facility] Globulin (S) [Mass/Vol] 2.8 g/dL 2.2-4.2 [facility] Urea nitrogen/Creatinine [Mass ratio] 28.4 mg/mg 10-20 [facility] No Panel InformationOrdered By: Alisa Escobar on 05-06-2022 Estimated GFR (MDRD) Amer 108 mL/min >60 [facility] Comment on above: GFR Calc Estimated GFR (MDRD) Non-Af Amer 90 mL/min >60 [facility] Comment on above: Non- GFR Calc Thyroid Stimulating Hormone (TSH) 3.72 uIU/mL 0.358-3.74 [facility] Serum or plasma albumin aminta urement (mass/volume)Ordered By: Alisa Escobar on 05-06-2022 Albumin [Mass/Vol] 4.1 g/dL 3.2-5.0 [facility] Serum or plasma albumin/glob ulin mass ratioOrdered By: Alisa Escobar on 05-06-2022 Albumin/Globulin [Mass ratio] 1.5 {ratio} 0.9-2.4 [facility] Serum or plasma calcium aminta urement (mass/volume)Ordered By: Alisa Escobar on 05-06-2022 Calcium [Mass/Vol] 9.0 mg/dL 8.5-10.1 [facility] Serum or plasma cholesterol in HDL measurement (mass/volume)Ordered By: Alisa Escobar on 05-06-2022 Cholesterol in HDL [Mass/Vol] 50 mg/dL >40 [facility] Comment on above: The drugs N-Acetylcy steine and Metamizole may falsely depress this assay. Reference Range HDL <40 mg/dL Low HDL Cholesterol HDL >or= 60 mg/dL High HDL Cholesterol Serum or plasma cholesterol in VLDL measurement (mass/volume)Ordered By: Alisa Escobar on 05-06-2022 Cholesterol in VLDL [Mass/Vol] 19 mg/dL 5-40 [facility] Serum or plasma creatinine m easurement (mass/volume)Ordered By: Alisa Escobar on 05-06-2022 Creatinine [Mass/Vol] 0.70 mg/dL 0.55-1.02 [facility] Comment on above: The validity of the calculated GFR & GFRAA in patients over 70 years has not been determined. Clinical correlation is essential. Serum or plasma low density lipoprotein (LDL) cholesterol measurement (mass/volume)Ordered By: Alisa Escobar on 05-06-2022 Cholesterol in LDL [Mass/Vol] 115 mg/dL 0-130 [facility] Serum or plasma urea nitroge n measurement (mass/volume)Ordered By: Alisa Escobar on 05-06-2022 Urea nitrogen [Mass/Vol] 20 mg/dL 7-18 [facility] Thin prep Papanicolaou smear with manual screeningOrdered By: Alisa Escobar on 05-06-2022 Thin prep Papanicolaou smear with manual screening 17 U/L 15-37 [facility] Thin prep Papanicolaou smear with manual screening 7 5-15 [facility] Thin prep Papanicolaou smear with manual screening 20.2 mg/L NO RANGE EST. [facility] Whole blood hemoglobin A1c/t otal hemoglobin ratio (mass fraction)Ordered By: Alisa Escobar on 05-06-2022 HbA1c (Bld) [Mass fraction] 6.4 % 3.8-5.6 [facility] Comment on above: Normal < 5.7 % Predi abetic 5.7 - 6.4 % Diabetic >or= 6.5 % Please note range changes. CBC panel Auto (Bld)on 03-31 Erythrocyte distribution width (RBC) [Ratio] 18.4 % High 11.5 - 15.0 % [facility] Hematocrit (Bld) [Volume fraction] 37.9 % 36.0 - 46.0 % [facility] Hemoglobin (Bld) [Mass/Vol] 12.1 g/dL 11.5 - 15.5 g/dL [facility] MCH (RBC) [Entitic mass] 26.9 pg 26.0 - 34.0 pg [facility] MCHC (RBC) [Mass/Vol] 31.9 g/dL 30.5 - 36.0 g/dL [facility] MCV (RBC) [Entitic vol] 84.2 fL 80.0 - 100.0 fL [facility] Nucleated RBC (Bld) [#/Vol] <0.01 k/uL [facility] Platelet mean volume (Bld) [Entitic vol] 11.8 fL 9.0 - 12.7 fL [facility] Platelets (Bld) [#/Vol] 192 10*3/uL 150 - 400 k/uL [facility] RBC (Bld) [#/Vol] 4.50 10*6/uL 3.90 - 5.2 0 m/uL [facility] WBC (Bld) [#/Vol] 4.63 10*3/uL 3.70 - 11. 00 k/uL [facility] Comprehensive metabolic 2000 panelon 03-31-2022 Albumin [Mass/Vol] 4.3 g/dL 3.9 - 4.9 g/dL [facility] ALP [Catalytic activity/Vol] 80 U/L 34 - 123 U/L [facility] ALT With P-5'-P [Catalytic activity/Vol] 18 U/L 7 - 38 U/L [facility] Anion gap [Moles/Vol] 10 mmol/L 9 - 18 mmol/L [facility] AST With P-5'-P [Catalytic activity/Vol] 21 U/L 13 - 35 U/L [facility] Bilirubin [Mass/Vol] 0.3 mg/dL 0.2 - 1 .3 mg/dL [facility] Calcium [Mass/Vol] 9.1 mg/dL 8.5 - 10. 2 mg/dL [facility] Chloride [Moles/Vol] 106 mmol/L High 97 - 10 5 mmol/L [facility] CO2 [Moles/Vol] 25 mmol/L 22 - 30 mmol/L [facility] Creatinine [Mass/Vol] 0.61 mg/dL 0.58 - 0.96 mg/dL [facility] Estimated Glomerular Filtration Rate 102 mL/min/1.73m >=60 mL/min/1.73m [facility] Glucose [Mass/Vol] 222 mg/dL High 74 - 99 mg/dL [facility] Potassium [Moles/Vol] 3.5 mmol/L Low 3.7 - 5.1 mmol/L [facility] Protein [Mass/Vol] 6.6 g/dL 6.3 - 8.0 g/dL [facility] Sodium [Moles/Vol] 141 mmol/L 136 - 144 mmol/L [facility] Urea nitrogen [Mass/Vol] 10 mg/dL 7 - 21 mg/dL [facility] DXA-AXIAL SKELETONon 023 [facility] CBC panel Auto (Bld)on 11-19 Erythrocyte distribution width (RBC) [Ratio] 17.4 % High 11.5 - 15.0 % [facility] Hematocrit (Bld) [Volume fraction] 38.6 % 36.0 - 46.0 % [facility] Hemoglobin (Bld) [Mass/Vol] 12.3 g/dL 11.5 - 15.5 g/dL [facility] MCH (RBC) [Entitic mass] 26.3 pg 26.0 - 34.0 pg [facility] MCHC (RBC) [Mass/Vol] 31.9 g/dL 30.5 - 36.0 g/dL [facility] MCV (RBC) [Entitic vol] 82.5 fL 80.0 - 100.0 fL [facility] Nucleated RBC (Bld) [#/Vol] <0.01 k/uL [facility] Platelet mean volume (Bld) [Entitic vol] 10.7 fL 9.0 - 12.7 fL [facility] Platelets (Bld) [#/Vol] 219 10*3/uL 150 - 400 k/uL [facility] RBC (Bld) [#/Vol] 4.68 10*6/uL 3.90 - 5.2 0 m/uL [facility] WBC (Bld) [#/Vol] 4.99 10*3/uL 3.70 - 11. 00 k/uL [facility] Comprehensive metabolic 2000 panelon 11-19-2021 Albumin [Mass/Vol] 4.6 g/dL 3.9 - 4.9 g/dL [facility] ALP [Catalytic activity/Vol] 61 U/L 34 - 123 U/L [facility] ALT With P-5'-P [Catalytic activity/Vol] 25 U/L 7 - 38 U/L [facility] Anion gap [Moles/Vol] 12 mmol/L 9 - 18 mmol/L [facility] AST With P-5'-P [Catalytic activity/Vol] 22 U/L 13 - 35 U/L [facility] Bilirubin [Mass/Vol] 0.4 mg/dL 0.2 - 1 .3 mg/dL [facility] Calcium [Mass/Vol] 8.9 mg/dL 8.5 - 10. 2 mg/dL [facility] Chloride [Moles/Vol] 105 mmol/L 97 - 10 5 mmol/L [facility] CO2 [Moles/Vol] 24 mmol/L 22 - 30 mmol/L [facility] Creatinine [Mass/Vol] 0.58 mg/dL 0.58 - 0.96 mg/dL [facility] Estimated Glomerular Filtration Rate 103 mL/min/1.73m >=60 mL/min/1.73m [facility] Glucose [Mass/Vol] 139 mg/dL High 74 - 99 mg/dL [facility] Potassium [Moles/Vol] 3.7 mmol/L 3.7 - 5.1 mmol/L [facility] Protein [Mass/Vol] 6.7 g/dL 6.3 - 8.0 g/dL [facility] Sodium [Moles/Vol] 141 mmol/L 136 - 144 mmol/L [facility] Urea nitrogen [Mass/Vol] 14 mg/dL 7 - 21 mg/dL [facility] CBC W Auto Differential pane l (Bld)on 09-16-2021 Basophils (Bld) [#/Vol] 0.03 10*3/uL Normal <0.11 [facility] Comment on above: Order Comment: Speci men Type: BLOOD SPECIMEN Ordering Facility: [facility] Address: [address] [place] [address] Performed By: #### 5 7021-8 #### [facility] CLIA [id number] [address] [place] [address] [place] Basophils/100 WBC (Bld) 0.5 % [facility] on above: Order Comment: Speci men Type: BLOOD SPECIMEN Ordering Facility: [facility] Address: [address] [place] [address] Performed By: #### 5 7021-8 #### [facility] CLIA [id number] [address] [place] [address] [place] Differential cell count method Nom (Bld) Auto Normal [facility] Comment on above: Order Comment: Speci men Type: BLOOD SPECIMEN Ordering Facility: [facility] Address: [address] [place], [place] [address] Performed By: #### 5 7021-8 #### [facility] CLIA [id number] [address] [place] [address] [place] Eosinophils (Bld) [#/Vol] 0.20 10*3/uL Normal <0.46 [facility] Comment on above: Order Comment: Speci men Type: BLOOD SPECIMEN Ordering Facility: [facility] Address: [address] [place], [place] [address] Performed By: #### 5 7021-8 #### [facility] CLIA [id number] [address] [place] [address] [place] Eosinophils/100 WBC (Bld) 3.0 % Normal [facility] Comment on above: Order Comment: Speci men Type: BLOOD SPECIMEN Ordering Facility: [facility] Address: [address] [place], [place] [address] Performed By: #### 5 7021-8 #### [facility] CLIA [id number] [address] [place] [address] [place] Erythrocyte distribution width (RBC) [Ratio] 18.0 % High 11.5-15.0 [facility] Comment on above: Order Comment: Speci men Type: BLOOD SPECIMEN Ordering Facility: [facility] Address: [address] [place] [address] Performed By: #### 5 7021-8 #### [facility] CLIA [id number] [address] [place] [address] [place] Hematocrit (Bld) [Volume fraction] 40.2 % Normal .0-46.0 [facility] Comment on above: Order Comment: Speci men Type: BLOOD SPECIMEN Ordering Facility: [facility] Address: [address] [place] [address] Performed By: #### 5 7021-8 #### [facility] CLIA [id number] [address] [place] [address] [place] Hemoglobin (Bld) [Mass/Vol] 12.8 g/dL Normal 11.5-15.5 [facility] Comment on above: Order Comment: Speci men Type: BLOOD SPECIMEN Ordering Facility: [facility] Address: [address] [place] [address] Performed By: #### 5 7021-8 #### [facility] CLIA [id number] [address] [place] [address] [place] IMMATURE GRAN % 0.5 % Normal [facility] Comment on above: Order Comment: Speci men Type: BLOOD SPECIMEN Ordering Facility: [facility] Address: [address] [place] [address] Performed By: #### 5 7021-8 #### [facility] CLIA [id number] [address] [place] [address] [place] IMMATURE GRAN ABS 0.03 k/uL Normal <0.10 [facility] Comment on above: Order Comment: Speci men Type: BLOOD SPECIMEN Ordering Facility: [facility] Address: [address] [place], [place] [address] Performed By: #### 5 7021-8 #### [facility] CLIA [id number] [address] [place] [address] [place] Lymphocytes (Bld) [#/Vol] 2.34 10*3/uL Normal 1.00-4.00 [facility] Comment on above: Order Comment: Speci men Type: BLOOD SPECIMEN Ordering Facility: [facility] Address: [address] [place], [place] [address] Performed By: #### 5 7021-8 #### [facility] CLIA [id number] [address] [place] [address] [place] Lymphocytes/100 WBC (Bld) 35.6 % Normal [facility] Comment on above: Order Comment: Speci men Type: BLOOD SPECIMEN Ordering Facility: [facility] Address: [address] [place], [place] [address] Performed By: #### 5 7021-8 #### [facility] CLIA [id number] [address] [place] [address] [place] MCH (RBC) [Entitic mass] 26.1 pg Normal 26.0-34.0 [facility] Comment on above: Order Comment: Speci men Type: BLOOD SPECIMEN Ordering Facility: [facility] Address: [address] [place], [place] [address] Performed By: #### 5 7021-8 #### [facility] CLIA [id number] [address] [place] [address] [place] MCHC (RBC) [Mass/Vol] 31.8 g/dL Normal 30.5-36.0 [facility] Comment on above: Order Comment: Speci men Type: BLOOD SPECIMEN Ordering Facility: [facility] Address: [address] [place], [place] [address] Performed By: #### 5 7021-8 #### [facility] CLIA [id number] [address] [place] [address] [place] MCV (RBC) [Entitic vol] 82.0 fL Normal 80.0-100.0 [facility] Comment on above: Order Comment: Speci men Type: BLOOD SPECIMEN Ordering Facility: [facility] Address: [address] [place], [place] [address] Performed By: #### 5 7021-8 #### [facility] CLIA [id number] [address] [place] [address] [place] Monocytes (Bld) [#/Vol] 0.54 10*3/uL Normal <0.87 [facility] Comment on above: Order Comment: Speci men Type: BLOOD SPECIMEN Ordering Facility: [facility] Address: [address] [place] [address] Performed By: #### 5 7021-8 #### [facility] CLIA [id number] [address] [place] [address] [place] Monocytes/100 WBC (Bld) 8.2 % Normal [facility] Comment on above: Order Comment: Speci men Type: BLOOD SPECIMEN Ordering Facility: [facility] Address: [address] [place] [address] Performed By: #### 5 7021-8 #### [facility] CLIA [id number] [address] [place] [address] [place] Neutrophils (Bld) [#/Vol] 3.43 10*3/uL Normal 1.45-7.50 [facility] Comment on above: Order Comment: Speci men Type: BLOOD SPECIMEN Ordering Facility: [facility] Address: [address] [place], [place] [address] Performed By: #### 5 7021-8 #### [facility] CLIA [id number] [address] [place] [address] [place] Neutrophils/100 WBC (Bld) 52.2 % Normal [facility] Comment on above: Order Comment: Speci men Type: BLOOD SPECIMEN Ordering Facility: [facility] Address: [address] [place], [place] [address] Performed By: #### 5 7021-8 #### [facility] CLIA [id number] [address] [place] [address] [place] Nucleated RBC (Bld) [#/Vol] 10*3/uL Normal <0.01 [facility] Comment on above: Order Comment: Speci men Type: BLOOD SPECIMEN Ordering Facility: [facility] Address: [address] [place], [place] [address] Performed By: #### 5 7021-8 #### [facility] CLIA [id number] [address] [place] [address] [place] Nucleated RBC/100 WBC (Bld) [Ratio] 0.0 /100 WBC Normal [facility] Comment on above: Order Comment: Speci men Type: BLOOD SPECIMEN Ordering Facility: [facility] Address: [address] [place], [place] [address] Performed By: #### 5 7021-8 #### [facility] CLIA [id number] [address] [place] [address] [place] Platelet mean volume (Bld) [Entitic vol] 10.7 fL Normal 9.0-12.7 [facility] Comment on above: Order Comment: Speci men Type: BLOOD SPECIMEN Ordering Facility: [facility] Address: [address] [place], [place] [address] Performed By: #### 5 7021-8 #### [facility] CLIA [id number] [address] [place] [address] [place] Platelets (Bld) [#/Vol] 243 10*3/uL Normal 150-400 [facility] Comment on above: Order Comment: Speci men Type: BLOOD SPECIMEN Ordering Facility: [facility] Address: [address] [place] [address] Performed By: #### 5 7021-8 #### [facility] CLIA [id number] [address] [place] [address] [place] RBC (Bld) [#/Vol] 4.90 10*6/uL Normal 3.90-5.[address] [facility] Comment on above: Order Comment: Speci men Type: BLOOD SPECIMEN Ordering Facility: [facility] Address: [address] [place] [address] Performed By: #### 5 7021-8 #### [facility] CLIA [id number] [address] [place] [address] [place] WBC (Bld) [#/Vol] 6.57 10*3/uL Normal 3.70-11.[address] [facility] Comment on above: Order Comment: Speci men Type: BLOOD SPECIMEN Ordering Facility: [facility] Address: [address] [place] [address] Performed By: #### 5 7021-8 #### [facility] CLIA [id number] [address] [place] [address] [place] Vital Signs Date Time Vital Sign Value Performing Clinician Facility 11-08-2024 14:23-0400 Diastolic blood pressure 77 mm[Hg] [place] Work Phone: [facility] 11-08-2024 14:23-0400 Heart rate 68 /min [place] Work Phone: [facility] 11-08-2024 14:23-0400 Respiratory rate 18 /min [facility] [place] Work Phone: [facility] 11-08-2024 14:23-0400 Systolic blood pressure 124 mm[Hg] Chair [place] Work Phone: [facility] 11-08-2024 13:23-0400 Body temperature 97.5 [degF] Chair [place] Work Phone: [facility] 11-08-2024 13:23-0400 SaO2% (BldA) [Mass fraction] 97 % Chair [place] Work Phone: [facility] 11-08-2024 13:02-0400 Body mass index (BMI) [Ratio] 36.99 kg/m2 Chair [place] Work Phone: [facility] 11-08-2024 13:02-0400 Body weight 88.8 kg Chair [place] Work Phone: [facility] 10-29-2024 07:03-0400 Body height 157.48 cm Paul Greco MD Work Phone: [facility] 10-29-2024 07:03-0400 Body mass index (BMI) [Ratio] 35.6 kg/m2 Paul Greco MD Work Phone: [facility] 10-29-2024 07:03-0400 Body weight 88.45 kg Paul Greco MD Work Phone: [facility] 10-29-2024 07:03-0400 Diastolic blood pressure 87 mm[Hg] Paul Greco MD Work Phone: [facility] 10-29-2024 07:03-0400 Heart rate 70 /min Paul Greco MD Work Phone: [facility] 10-29-2024 07:03-0400 Respiratory rate 18 /min Paul Greco MD Work Phone: [facility] 10-29-2024 07:03-0400 SaO2% (BldA) [Mass fraction] 92 % Paul Greco MD Work Phone: [facility] 10-29-2024 07:03-0400 Systolic blood pressure 133 mm[Hg] Paul Greco MD Work Phone: [facility] 09-27-2024 13:25-0400 Body mass index (BMI) [Ratio] 36.62 kg/m2 [facility] 09-27-2024 13:25-0400 Body weight 87.9 kg [facility] 09-27-2024 13:25-0400 Respiratory rate 18 /min [facility] 08-09-2024 15:07-0400 Diastolic blood pressure 83 mm[Hg] [facility] 08-09-2024 15:07-0400 Heart rate 68 /min [facility] 08-09-2024 15:07-0400 Systolic blood pressure 134 mm[Hg] [facility] 08-09-2024 14:29-0400 Respiratory rate 18 /min [facility] 08-09-2024 13:29-0400 Body mass index (BMI) [Ratio] 35.49 kg/m2 [facility] 08-09-2024 13:29-0400 Body temperature 97.59 [degF] [facility] 08-09-2024 13:29-0400 Body weight 85.2 kg [facility] 08-09-2024 13:29-0400 SaO2% (BldA) [Mass fraction] 99 % [facility] 07-30-2024 06:42-0400 Body mass index (BMI) [Ratio] 34.2 kg/m2 Paul Greco MD Work Phone: [facility] 07-30-2024 06:42-0400 Body weight 84.82 kg Paul Grceo MD Work Phone: [facility] 07-30-2024 06:42-0400 Diastolic blood pressure 84 mm[Hg] Paul Greco MD Work Phone: [facility] 07-30-2024 06:42-0400 Heart rate 74 /min Paul Greco MD Work Phone: [facility] 07-30-2024 06:42-0400 Respiratory rate 18 /min Paul Greco MD Work Phone: [facility] 07-30-2024 06:42-0400 SaO2% (BldA) [Mass fraction] 95 % Paul Greco MD Work Phone: [facility] 07-30-2024 06:42-0400 Systolic blood pressure 125 mm[Hg] Paul Greco MD Work Phone: [facility] 07-25-2024 22:24-0400 Body temperature 97.8 [degF] Paul Greco MD Work Phone: [facility] 07-25-2024 22:24-0400 Diastolic blood pressure 66 mm[Hg] Paul Greco MD Work Phone: [facility] 07-25-2024 22:24-0400 Heart rate 99 /min Paul Greco MD Work Phone: [facility] 07-25-2024 22:24-0400 Respiratory rate 18 /min Paul Greco MD Work Phone: [facility] 07-25-2024 22:24-0400 SaO2% (BldA) [Mass fraction] 99 % Paul Greco MD Work Phone: [facility] 07-25-2024 22:24-0400 Systolic blood pressure 132 mm[Hg] Paul Greco MD Work Phone: [facility] 07-25-2024 19:03-0400 Body height 157.48 cm Paul Greco MD Work Phone: 3(397)[phone] [place] [address] 07-25-2024 19:03-0400 Body mass index (BMI) [Ratio] 34.7 kg/m2 Paul Greco MD Work Phone: 8(524)[phone] [place] [address] 07-25-2024 19:03-0400 Body weight 86.2 kg Paul Greco MD Work Phone: [facility] 07-03-2024 22:13-0400 Body temperature 98.3 [degF] Paul Greco MD Work Phone: [facility] 07-03-2024 22:13-0400 Diastolic blood pressure 65 mm[Hg] Paul Greco MD Work Phone: 1(677)[phone] [place] [address] 07-03-2024 22:13-0400 Heart rate 70 /min Paul Greco MD Work Phone: [facility] 07-03-2024 22:13-0400 Respiratory rate 18 /min Paul Greco MD Work Phone: [facility] 07-03-2024 22:13-0400 SaO2% (BldA) [Mass fraction] 100 % Paul Greco MD Work Phone: [facility] 07-03-2024 22:13-0400 Systolic blood pressure 142 mm[Hg] Paul Greco MD Work Phone: [facility] 07-03-2024 18:10-0400 Body mass index (BMI) [Ratio] 34.9 kg/m2 Paul Greco MD Work Phone: [facility] 07-03-2024 18:10-0400 Body weight 86.7 kg Paul Greco MD Work Phone: [facility] 06-14-2024 14:27-0400 Body height 154.9 cm Robert Farias MD Work Phone: [facility] 06-14-2024 14:27-0400 Body mass index (BMI) [Ratio] 34.12 kg/m2 Robert Farias MD Work Phone: [facility] 06-14-2024 14:27-0400 Body temperature 98.2 [degF] Robert Farias MD Work Phone: [facility] 06-14-2024 14:27-0400 Body weight 81.92 kg Robert Farias MD Work Phone: [facility] 06-14-2024 14:27-0400 Diastolic blood pressure 85 mm[Hg] Robert Farias MD Work Phone: [facility] 06-14-2024 14:27-0400 Heart rate 84 /min Robert Farias MD Work Phone: [facility] 06-14-2024 14:27-0400 Systolic blood pressure 139 mm[Hg] Robert Farias MD Work Phone: [facility] 06-03-2024 11:40-0400 Diastolic blood pressure 71 mm[Hg] [facility] 06-03-2024 11:40-0400 Heart rate 76 /min [facility] 06-03-2024 11:40-0400 SaO2% (BldA) [Mass fraction] 98 % [facility] Comment on above: 06-03-2024 11:40-0400 Systolic blood pressure 119 mm[Hg] [facility] 06-03-2024 11:32-0400 Body mass index (BMI) [Ratio] 33.99 kg/m2 [facility] 06-03-2024 11:32-0400 Body weight 81.6 kg [facility] 06-03-2024 11:32-0400 Respiratory rate 18 /min [facility] 05-31-2024 07:57-0400 Body mass index (BMI) [Ratio] 32.1 kg/m2 Paul Greco MD Work Phone: [facility] 05-31-2024 07:57-0400 Body weight 79.83 kg Paul Greco MD Work Phone: [facility] 05-31-2024 07:57-0400 Diastolic blood pressure 77 mm[Hg] Paul Greco MD Work Phone: [facility] 05-31-2024 07:57-0400 Heart rate 81 /min Paul Greco MD Work Phone: [facility] 05-31-2024 07:57-0400 Respiratory rate 18 /min Paul Greco MD Work Phone: [facility] 05-31-2024 07:57-0400 SaO2% (BldA) [Mass fraction] 97 % Paul Greco MD Work Phone: [facility] 05-31-2024 07:57-0400 Systolic blood pressure 110 mm[Hg] Paul Greco MD Work Phone: [facility] 05-27-2024 15:41-0400 Heart rate 86 /min Paul Greco MD Work Phone: [facility] 05-27-2024 10:00-0400 Body temperature 97.9 [degF] Paul Greco MD Work Phone: [facility] 05-27-2024 10:00-0400 Diastolic blood pressure 80 mm[Hg] Paul Greco MD Work Phone: [facility] 05-27-2024 10:00-0400 Respiratory rate 16 /min Paul Greco MD Work Phone: [facility] 05-27-2024 10:00-0400 SaO2% (BldA) [Mass fraction] 95 % Paul Greco MD Work Phone: [facility] 05-27-2024 10:00-0400 Systolic blood pressure 139 mm[Hg] Paul Greco MD Work Phone: [facility] 05-27-2024 04:13-0400 Body mass index (BMI) [Ratio] 32.5 kg/m2 Paul Greco MD Work Phone: [facility] 05-27-2024 04:13-0400 Body weight 80.64 kg Paul Greco MD Work Phone: 0(797)[phone] [place] [address] 05-27-2024 02:30-0400 Body height 157.48 cm Paul Greco MD Work Phone: [facility] 04-15-2024 13:10-0500 Body temperature 97.7 [degF] Paul Greco MD Work Phone: [facility] 04-15-2024 13:10-0500 Diastolic blood pressure 68 mm[Hg] Paul Greco MD Work Phone: [facility] 04-15-2024 13:10-0500 Heart rate 84 /min Paul Greco MD Work Phone: [facility] 04-15-2024 13:10-0500 Respiratory rate 14 /min Paul Greco MD Work Phone: [facility] 04-15-2024 13:10-0500 SaO2% (BldA) [Mass fraction] 100 % Paul Greco MD Work Phone: [facility] 04-15-2024 13:10-0500 Systolic blood pressure 104 mm[Hg] Paul Greco MD Work Phone: [facility] 04-15-2024 11:04-0500 Body height 157.48 cm Paul Greco MD Work Phone: [facility] 04-15-2024 11:04-0500 Body mass index (BMI) [Ratio] 30.6 kg/m2 Paul Greco MD Work Phone: [facility] 04-15-2024 11:04-0500 Body weight 76 kg Paul Greco MD Work Phone: [facility] 04-11-2024 10:15-0500 Body mass index (BMI) [Ratio] 32.66 kg/m2 [facility] 04-11-2024 10:15-0500 Body temperature 96.8 [degF] [facility] 04-11-2024 10:15-0500 Body weight 78.4 kg [facility] 04-11-2024 10:15-0500 Diastolic blood pressure 81 mm[Hg] [facility] 04-11-2024 10:15-0500 Heart rate 85 /min [facility] 04-11-2024 10:15-0500 Respiratory rate 18 /min [facility] 04-11-2024 10:15-0500 SaO2% (BldA) [Mass fraction] 98 % [facility] 04-11-2024 10:15-0500 Systolic blood pressure 160 mm[Hg] [facility] 03-11-2024 04:26-0500 Body temperature 98 [degF] Paul Greco MD Work Phone: [facility] 03-11-2024 04:26-0500 Diastolic blood pressure 73 mm[Hg] Paul Greco MD Work Phone: [facility] 03-11-2024 04:26-0500 Heart rate 98 /min Paul Greco MD Work Phone: [facility] 03-11-2024 04:26-0500 Respiratory rate 17 /min Paul Greco MD Work Phone: [facility] 03-11-2024 04:26-0500 SaO2% (BldA) [Mass fraction] 93 % Paul Greco MD Work Phone: [facility] 03-11-2024 04:26-0500 Systolic blood pressure 114 mm[Hg] Paul Greco MD Work Phone: [facility] 03-10-2024 20:18-0500 Body mass index (BMI) [Ratio] 32.4 kg/m2 Paul Greco MD Work Phone: [facility] 03-10-2024 20:18-0500 Body weight 80.42 kg Paul Greco MD Work Phone: [facility] 03-06-2024 00:19-0500 Body weight 79.15 kg Paul Greco MD Work Phone: [facility] 02-29-2024 11:53-0500 Diastolic blood pressure 84 mm[Hg] [facility] 02-29-2024 11:53-0500 Heart rate 81 /min [facility] 02-29-2024 11:53-0500 Systolic blood pressure 126 mm[Hg] [facility] 02-29-2024 10:33-0500 Body mass index (BMI) [Ratio] 33.03 kg/m2 [facility] 02-29-2024 10:33-0500 Body temperature 97.3 [degF] [facility] 02-29-2024 10:33-0500 Body weight 79.3 kg [facility] 02-29-2024 10:33-0500 Respiratory rate 16 /min [facility] 02-26-2024 09:13-0500 Body mass index (BMI) [Ratio] 31.2 kg/m2 Paul Greco MD Work Phone: [facility] 02-26-2024 09:13-0500 Body weight 77.56 kg Paul Greco MD Work Phone: [facility] 02-26-2024 09:13-0500 Diastolic blood pressure 94 mm[Hg] Paul Greco MD Work Phone: [facility] 02-26-2024 09:13-0500 Heart rate 84 /min Paul Greco MD Work Phone: [facility] 02-26-2024 09:13-0500 Respiratory rate 18 /min Paul Greco MD Work Phone: [facility] 02-26-2024 09:13-0500 SaO2% (BldA) [Mass fraction] 95 % Paul Greco MD Work Phone: [facility] 02-26-2024 09:13-0500 Systolic blood pressure 132 mm[Hg] Paul Greco MD Work Phone: [facility] 02-23-2024 11:26-0500 Body weight 79.15 kg Paul Greco MD Work Phone: [facility] 02-09-2024 19:47-0500 Body temperature 99.1 [degF] Paul Greco MD Work Phone: [facility] 02-09-2024 19:47-0500 Diastolic blood pressure 95 mm[Hg] Paul Greco MD Work Phone: [facility] 02-09-2024 19:47-0500 Heart rate 111 /min Paul Greco MD Work Phone: [facility] 02-09-2024 19:47-0500 Respiratory rate 16 /min Paul Greco MD Work Phone: [facility] 02-09-2024 19:47-0500 SaO2% (BldA) [Mass fraction] 96 % Paul Greco MD Work Phone: [facility] 02-09-2024 19:47-0500 Systolic blood pressure 152 mm[Hg] Paul Greco MD Work Phone: [facility] 02-09-2024 17:09-0500 Body mass index (BMI) [Ratio] 32.8 kg/m2 Paul Greco MD Work Phone: [facility] 02-09-2024 17:09-0500 Body weight 81.5 kg Paul Greco MD Work Phone: [facility] 01-24-2024 09:04-0500 Body weight 78.92 kg Paul Greco MD Work Phone: [facility] 01-24-2024 08:42-0500 Body mass index (BMI) [Ratio] 31.8 kg/m2 Paul Greco MD Work Phone: [facility] 01-24-2024 08:42-0500 Diastolic blood pressure 90 mm[Hg] Paul Greco MD Work Phone: [facility] 01-24-2024 08:42-0500 Heart rate 104 /min Paul Greco MD Work Phone: [facility] 01-24-2024 08:42-0500 SaO2% (BldA) [Mass fraction] 95 % Paul Greco MD Work Phone: [facility] 01-24-2024 08:42-0500 Systolic blood pressure 150 mm[Hg] aPul Greco MD Work Phone: [facility] 01-18-2024 10:06-0500 Body temperature 97.3 [degF] [facility] 01-18-2024 10:06-0500 Diastolic blood pressure 94 mm[Hg] [facility] 01-18-2024 10:06-0500 Heart rate 99 /min [facility] 01-18-2024 10:06-0500 Respiratory rate 18 /min [facility] 01-18-2024 10:06-0500 SaO2% (BldA) [Mass fraction] 97 % [facility] 01-18-2024 10:06-0500 Systolic blood pressure 157 mm[Hg] [facility] 01-18-2024 08:45-0500 Body mass index (BMI) [Ratio] 33.99 kg/m2 [facility] 01-18-2024 08:45-0500 Body weight 81.6 kg [facility] 11-10-2023 10:34-0400 Body temperature 97.7 [degF] [facility] 11-10-2023 10:34-0400 Diastolic blood pressure 91 mm[Hg] [facility] 09-06-2024 10:34-0400 Heart rate 88 /min [facility] 11-10-2023 10:34-0400 Respiratory rate 18 /min [facility] 11-10-2023 10:34-0400 SaO2% (BldA) [Mass fraction] 98 % [facility] 11-10-2023 10:34-0400 Systolic blood pressure 177 mm[Hg] [facility] 11-10-2023 10:23-0400 Body mass index (BMI) [Ratio] 35.2 kg/m2 [facility] 11-10-2023 10:23-0400 Body weight 84.5 kg [facility] 09-29-2023 14:27-0400 Body height 154.9 cm Robert Farias MD Work Phone: [facility] 09-29-2023 14:27-0400 Body mass index (BMI) [Ratio] 35.39 kg/m2 Robert Farias MD Work Phone: [facility] 09-29-2023 14:27-0400 Body temperature 98.2 [degF] Robert Farias MD Work Phone: [facility] 09-29-2023 14:27-0400 Body weight 84.96 kg Robert Farias MD Work Phone: [facility] 09-29-2023 14:27-0400 Diastolic blood pressure 83 mm[Hg] Robert Farias MD Work Phone: [facility] 09-29-2023 14:27-0400 Heart rate 105 /min Robert Farias MD Work Phone: [facility] 09-29-2023 14:27-0400 Systolic blood pressure 173 mm[Hg] Robert Farias MD Work Phone: [facility] 09-22-2023 12:00-0400 Diastolic blood pressure 89 mm[Hg] [facility] 09-22-2023 12:00-0400 Heart rate 80 /min [facility] 09-22-2023 12:00-0400 Respiratory rate 16 /min [facility] 09-22-2023 12:00-0400 Systolic blood pressure 188 mm[Hg] [facility] 09-22-2023 10:27-0400 Body mass index (BMI) [Ratio] 35.31 kg/m2 [facility] 09-22-2023 10:27-0400 Body temperature 98.6 [degF] [facility] 09-22-2023 10:27-0400 Body weight 84.78 kg [facility] 09-22-2023 10:27-0400 SaO2% (BldA) [Mass fraction] 97 % [facility] 08-04-2023 10:54-0400 Body temperature 97.7 [degF] [facility] 08-04-2023 10:54-0400 Diastolic blood pressure 94 mm[Hg] [facility] 08-04-2023 10:54-0400 Heart rate 64 /min [facility] 08-04-2023 10:54-0400 Respiratory rate 18 /min [facility] 08-04-2023 10:54-0400 SaO2% (BldA) [Mass fraction] 98 % [facility] 08-04-2023 10:54-0400 Systolic blood pressure 162 mm[Hg] [facility] 08-04-2023 10:36-0400 Body mass index (BMI) [Ratio] 34.8 kg/m2 [facility] 08-04-2023 10:36-0400 Body weight 83.55 kg [facility] 06-16-2023 10:35-0400 Body temperature 98.91 [degF] [facility] 06-16-2023 10:35-0400 Diastolic blood pressure 92 mm[Hg] [facility] 06-16-2023 10:35-0400 Heart rate 79 /min [facility] 06-16-2023 10:35-0400 Respiratory rate 16 /min [facility] 06-16-2023 10:35-0400 Systolic blood pressure 160 mm[Hg] [facility] 06-16-2023 10:28-0400 Body weight 83.37 kg [facility] 04-28-2023 10:59-0500 Body temperature 97.3 [degF] Chair [place] Work Phone: [facility] 04-28-2023 10:59-0500 Diastolic blood pressure 90 mm[Hg] Chair [place] Work Phone: [facility] 04-28-2023 10:59-0500 Heart rate 61 /min Chair [place] Work Phone: [facility] 04-28-2023 10:59-0500 Respiratory rate 18 /min Chair [place] Work Phone: [facility] 04-28-2023 10:59-0500 Systolic blood pressure 168 mm[Hg] Chair [place] Work Phone: [facility] 04-28-2023 10:31-0500 Body weight 83.87 kg Chair [place] Work Phone: [facility] 01-20-2023 12:30-0500 Diastolic blood pressure 80 mm[Hg] [facility] 01-20-2023 12:30-0500 Heart rate 82 /min [facility] 01-20-2023 12:30-0500 Systolic blood pressure 168 mm[Hg] [facility] 01-20-2023 10:40-0500 Body temperature 97.9 [degF] [facility] 01-20-2023 10:40-0500 Body weight 83.51 kg [facility] 01-20-2023 10:40-0500 Respiratory rate 20 /min [facility] 12-02-2022 13:06-0400 Diastolic blood pressure 82 mm[Hg] Chair [place] Work Phone: [facility] 12-02-2022 13:06-0400 Heart rate 89 /min Chair [place] Work Phone: [facility] 12-02-2022 13:06-0400 Respiratory rate 18 /min Chair [place] Work Phone: [facility] 12-02-2022 13:06-0400 SaO2% (BldA) [Mass fraction] 97 % Chair [place] Work Phone: [facility] 12-02-2022 13:06-0400 Systolic blood pressure 149 mm[Hg] Chair [place] Work Phone: [facility] 12-02-2022 11:42-0400 Body temperature 97.9 [degF] Chair [place] Work Phone: [facility] 12-02-2022 11:42-0400 Body weight 85.91 kg Chair [place] Work Phone: [facility] 10-14-2022 10:24-0400 Body temperature 98.1 [degF] [facility] 10-14-2022 10:24-0400 Body weight 89.22 kg [facility] 10-14-2022 10:24-0400 Diastolic blood pressure 90 mm[Hg] [facility] 10-14-2022 10:24-0400 Heart rate 72 /min [facility] 10-14-2022 10:24-0400 Respiratory rate 20 /min [facility] 10-14-2022 10:24-0400 Systolic blood pressure 166 mm[Hg] [facility] 08-26-2022 12:03-0400 Diastolic blood pressure 80 mm[Hg] Chair [place] Work Phone: [facility] 08-26-2022 12:03-0400 Heart rate 69 /min Chair [place] Work Phone: [facility] 08-26-2022 12:03-0400 Respiratory rate 18 /min Chair [place] Work Phone: [facility] 08-26-2022 12:03-0400 Systolic blood pressure 154 mm[Hg] Chair [place] Work Phone: [facility] 08-26-2022 10:30-0400 Body temperature 97.5 [degF] Chair [place] Work Phone: [facility] 08-26-2022 10:30-0400 Body weight 88.27 kg Chair [place] Work Phone: [facility] 08-26-2022 10:30-0400 SaO2% (BldA) [Mass fraction] 98 % Chair [place] Work Phone: [facility] 07-08-2022 09:37-0400 Body weight 89.09 kg Chair [place] Work Phone: [facility] 05-20-2022 09:48-0400 Diastolic blood pressure 85 mm[Hg] [facility] 05-20-2022 09:48-0400 Heart rate 74 /min [facility] 05-20-2022 09:48-0400 Respiratory rate 18 /min [facility] 05-20-2022 09:48-0400 Systolic blood pressure 180 mm[Hg] [facility] 05-20-2022 09:37-0400 Body weight 90.72 kg [facility] 03-31-2022 10:38-0500 Body temperature 98.1 [degF] [facility] 03-31-2022 10:38-0500 Body weight 89.5 kg [facility] 03-31-2022 10:38-0500 Diastolic blood pressure 79 mm[Hg] [facility] 03-31-2022 10:38-0500 Heart rate 83 /min [facility] 03-31-2022 10:38-0500 Respiratory rate 16 /min [facility] 03-31-2022 10:38-0500 Systolic blood pressure 161 mm[Hg] [facility] 01-07-2022 10:07-0400 Diastolic blood pressure 83 mm[Hg] Chair [place] Work Phone: [facility] 01-07-2022 10:07-0400 Heart rate 80 /min Chair [place] Work Phone: [facility] 01-07-2022 10:07-0400 Systolic blood pressure 158 mm[Hg] Chair [place] Work Phone: [facility] 01-07-2022 10:06-0400 Body temperature 98.2 [degF] Chair [place] Work Phone: [facility] 01-07-2022 10:06-0400 Respiratory rate 16 /min Chair [place] Work Phone: [facility] 01-07-2022 10:00-0400 Body weight 89.63 kg Chair [place] Work Phone: [facility] 11-19-2021 11:46-0400 Diastolic blood pressure 73 mm[Hg] Chair [place] Work Phone: [facility] 11-19-2021 11:46-0400 Heart rate 72 /min Chair [place] Work Phone: [facility] 11-19-2021 11:46-0400 Respiratory rate 18 /min Chair [place] Work Phone: [facility] 11-19-2021 11:46-0400 Systolic blood pressure 142 mm[Hg] Chair [place] Work Phone: [facility] 11-19-2021 10:40-0400 Body temperature 97.5 [degF] Chair [place] Work Phone: [facility] 10-22-2021 14:25-0400 Body height 154.9 cm Robert Farias MD Work Phone: [facility] 10-22-2021 14:25-0400 Body temperature 98.1 [degF] Robert Farias MD Work Phone: [facility] 10-22-2021 14:25-0400 Body weight 92.67 kg Robert Farias MD Work Phone: [facility] 10-22-2021 14:25-0400 Diastolic blood pressure 97 mm[Hg] Robert Farias MD Work Phone: [facility] 10-22-2021 14:25-0400 Heart rate 84 /min Robert Farias MD Work Phone: [facility] 10-22-2021 14:25-0400 Systolic blood pressure 169 mm[Hg] Robert Farias MD Work Phone: [facility] 10-01-2021 10:07-0400 Body weight 93.44 kg [facility] 08-13-2021 10:10-0400 Body temperature 97.81 [degF] [facility] 08-13-2021 10:10-0400 Diastolic blood pressure 71 mm[Hg] [facility] 08-13-2021 10:10-0400 Heart rate 79 /min [facility] 08-13-2021 10:10-0400 Respiratory rate 16 /min [facility] 08-13-2021 10:10-0400 Systolic blood pressure 149 mm[Hg] [facility] 08-13-2021 10:08-0400 Body weight 91.99 kg [facility] 07-16-2021 15:33-0400 Body height 154.9 cm Robert Farias MD Work Phone: [facility] 07-16-2021 15:33-0400 Body temperature 98.2 [degF] Robert Farias MD Work Phone: [facility] 07-16-2021 15:33-0400 Body weight 89.81 kg Robert Farias MD Work Phone: [facility] 07-16-2021 15:33-0400 Diastolic blood pressure 108 mm[Hg] Robert Farias MD Work Phone: [facility] 07-16-2021 15:33-0400 Heart rate 86 /min Robert Farias MD Work Phone: [facility] 07-16-2021 15:33-0400 Systolic blood pressure 188 mm[Hg] Robert Farias MD Work Phone: [facility] 06-25-2021 09:30-0400 Body temperature 97.7 [degF] [facility] 06-25-2021 09:30-0400 Body weight 90.81 kg [facility] 06-25-2021 09:30-0400 Diastolic blood pressure 95 mm[Hg] [facility] 06-25-2021 09:30-0400 Heart rate 82 /min [facility] 06-25-2021 09:30-0400 Respiratory rate 20 /min Chair [facility] 06-25-2021 09:30-0400 Systolic blood pressure 165 mm[Hg] [facility] 06-19-2020 14:10-0400 Body temperature 98.6 [degF] Robert Farias Work Phone: [facility] 06-19-2020 14:10-0400 Body weight 86.55 kg Robert Farias Work Phone: [facility] 06-19-2020 14:10-0400 Diastolic blood pressure 91 mm[Hg] Robert Farias Work Phone: [facility] 06-19-2020 14:10-0400 Heart rate 88 /min Robert Farias Work Phone: [facility] 06-19-2020 14:10-0400 Systolic blood pressure 133 mm[Hg] Robert Farias Work Phone: [facility] Encounters Encounter Date Encounter Type Care Provider Facility Start: 12-20-2024 End: 12-20-2024 ambulatory ROBERT FARIAS Facility:[facility] Start: 11-11-2024 End: 11-11-2024 Refill Robert Farias MD Work Phone: [facility] General [facility] [place] Comment on above: Refill Request Start: 11-08-2024 End: 11-08-2024 ambulatory Chair 7 [facility] [place] Work Phone: Hematology/Oncology Comment on above: Rheumatoid arthritis involving both hands with positive rheumatoid factor (HCC) (Primary Dx); High risk medication use; Cerebrovascular disease Start: 11-07-2024 End: 11-07-2024 Orders Only Robert Farias MD Work Phone: [facility] [place] Start: 10-30-2024 End: 10-30-2024 Telephone encounter Robert Farias MD Work Phone: [facility] Arthritis & Rheumatology Comment on above: INFLECTRA - PENDING (Inflectra, [place] - PENDING [id number] [facility] Star/Portal) Start: 10-29-2024 End: 10-29-2024 Patient encounter procedure Ambreen Delaney NP-C -[facility] Work Phone: Start: 10-29-2024 End: 10-29-2024 ambulatory Paul Greco MD Work Phone: [facility] Start: 10-25-2024 End: 10-25-2024 Telephone encounter Robert Farias MD Work Phone: [facility] [place] Comment on above: Appointment Start: 10-25-2024 End: 10-25-2024 Patient encounter procedure Robert Farias MD Work Phone: [facility] [place] Comment on above: Rheumatoid arthritis involving both hands with positive rheumatoid factor (HCC) (Primary Dx); High risk medication use; Cerebrovascular disease; Asymptomatic postmenopausal status Start: 10-25-2024 End: 10-25-2024 Telemedicine consultation with patient Robert Farias MD Work Phone: [facility] [place] Start: 10-25-2024 End: 10-25-2024 ambulatory ROBERT FARIAS Facility:[facility] Start: 10-22-2024 End: 10-22-2024 Telephone encounter Robert Farias MD Work Phone: [facility] Arthritis & Rheumatology Comment on above: INFLECTRA - PENDING (Inflectra, [place] - PENDING [id number] [facility] Simple Star/Portal) Start: 10-07-2024 End: 10-07-2024 Refill Robert Farias MD Work Phone: [facility] [place] Comment on above: Refill Request Start: 09-27-2024 End: 09-27-2024 ambulatory Chair 3 [facility] Hematology/Oncology Comment on above: Rheumatoid arthritis involving both hands with positive rheumatoid factor (HCC) (Primary Dx) Start: 08-23-2024 End: 08-23-2024 ambulatory Paul Greco MD Work Phone: [facility] Work Phone: Start: 08-23-2024 End: 08-23-[address] Paul Greco MD -[facility] Work Phone: Start: 08-23-2024 End: 08-23-2024 ambulatory Paul Greco Facility:[facility] Start: 08-13-2024 End: 08-13-2024 Patient encounter procedure Ambreen Delaney CHASSIS ENGINEER-C -Cardiovascular Services Work Phone: Start: 08-13-2024 End: 08-14-2024 Refill Robert Farias MD Work Phone: [facility] [place] Comment on above: Refill Request Start: 08-13-2024 End: 08-13-2024 ambulatory Paul Greco Facility:[facility] Start: 08-12-2024 End: 08-12-2024 Telephone encounter Robert Farias MD Work Phone: [facility] [place] Start: 08-11-2024 Encounter for genera l adult medical examination without abnormal findings Ambreen Delaney NP [facility] Start: 08-09-2024 End: 08-09-2024 ambulatory Chair 5 [facility] Hematology/Oncology Comment on above: Rheumatoid arthritis involving both hands with positive rheumatoid factor (HCC) (Primary Dx) Start: 08-06-2024 End: 08-06-2024 ambulatory Paul Greco MD Work Phone: [facility] Work Phone: Start: 08-06-2024 End: 08-06-2024 Patient encounter procedure Ambreen Delaney CHASSIS ENGINEER-C -Laboratory Work Phone: Start: 08-06-2024 End: 08-06-2024 ambulatory Ambreen Delaney NP Facility:[facility] Start: 07-30-2024 End: 07-30-2024 Patient encounter procedure Ambreen Delaney CHASSIS ENGINEER-C -[facility] Work Phone: Start: 07-30-2024 End: 07-30-2024 ambulatory Paul Greco MD Work Phone: [facility] Work Phone: Start: 07-25-2024 End: 07-25-2024 Emergency department patient visit Paul Greco MD Work Phone: -Emergency Department Work Phone: Start: 07-18-2024 End: 07-18-2024 Telephone encounter Robert Farias MD Work Phone: [facility] Arthritis & Rheumatology Comment on above: RENFLEXIS - PENDING (Antonetteflexsukumar, [place] - PENDING [id number] [facility]/Portal) Start: 07-09-2024 End: 07-09-2024 Refill Robert Farias MD Work Phone: [facility] [place] Comment on above: Refill Request Start: 07-03-2024 End: 07-03-2024 Emergency department patient visit Dr. Corey De Jesus DO -Emergency Department Work Phone: Start: 06-14-2024 End: 06-14-2024 Patient encounter procedure Robert Farias MD Work Phone: [facility] [place] Comment on above: Rheumatoid arthritis involving both hands with positive rheumatoid factor (HCC) (Primary Dx); Asymptomatic postmenopausal status; High risk medication use Start: 06-14-2024 End: 06-14-2024 ambulatory ROBERT FARIAS Facility:[facility] Start: 06-03-2024 End: 06-03-2024 ambulatory [facility] 3 [facility] Hematology/Oncology Comment on above: Rheumatoid arthritis involving both hands with positive rheumatoid factor (HCC) (Primary Dx) Start: 05-31-2024 End: 05-31-2024 Patient encounter procedure Ana Rosa RONDON -[facility] Work Phone: Start: 05-31-2024 End: 05-31-2024 ambulatory Paul Greco Facility:[facility] Start: 05-29-2024 End: 05-29-2024 Patient encounter procedure Andressa RONDON -[facility] Work Phone: Start: 05-29-2024 End: 05-29-2024 ambulatory [facility] Facility:[facility] Start: 05-28-2024 End: 05-28-2024 Telephone encounter Robert Farias MD Work Phone: [facility] Arthritis & Rheumatology Comment on above: RENFLEXIS - PENDING (Renflexis, [place] - PENDING [id number] [facility] Portal) Start: 05-27-2024 Non-patient / Non-visit Dr. Yvonne DORMAN -[facility] Start: 05-27-2024 Non-patient / Non-visit Dr. Jenelle Gaspar MD -[facility] Work Phone: Start: 05-27-2024 End: 05-27-2024 ambulatory [facility] Facility:[facility] Start: 05-27-2024 End: 05-27-2024 Evaluation and management of inpatient Dr. Isael Baeza DO -Progressive Care Unit Work Phone: Start: 05-27-2024 End: 05-27-2024 observation encounter Paul Greco MD Work Phone: [facility] Work Phone: Start: 05-26-2024 End: 05-27-2024 [facility] Start: 05-03-2024 End: 05-03-2024 ambulatory Paul Greco MD Work Phone: [facility] Work Phone: Start: 05-03-2024 End: 05-03-2024 Patient encounter procedure Andressa RONDON -Laboratory, Specimen Work Phone: Start: 05-03-2024 End: 05-03-2024 ambulatory Paul Angus Facility:[facility] Start: 04-30-2024 End: 04-30-2024 Patient encounter procedure Andressa RONDON -[facility] Work Phone: Start: 04-30-2024 End: 04-30-2024 ambulatory Chalon Angus Facility:[facility] Start: 04-16-2024 ambulatory Chalon Angus Facility:[facility] Start: 04-15-2024 ambulatory Chalon Angus Facility:[facility] Start: 04-15-2024 Non-patient / Non-visit Ken Boston juice DO -[facility] Start: 04-15-2024 End: 04-15-2024 Admission to same day surgery center Ken Xie DO -Endoscopy Work Phone: Start: 04-15-2024 End: 04-15-2024 ambulatory Chalon Angus Facility:[facility] Start: 04-13-2024 End: 06-13-2024 Follow-up encounter Robert Farias MD Work Phone: [facility] [place] Start: 04-11-2024 End: 04-11-2024 ambulatory Chair 2 [facility] Hematology/Oncology Comment on above: Rheumatoid arthritis involving both hands with positive rheumatoid factor (HCC) (Primary Dx) Start: 04-10-2024 End: 04-10-2024 Refill Robert Farias MD Work Phone: [facility] [place] Comment on above: Refill Request Start: 04-05-2024 End: 04-08-2024 Refill Robert Farias MD Work Phone: [facility] [place] Comment on above: Refill Request Start: 03-31-2024 End: 04-01-2024 Refill Robert Farias MD Work Phone: [facility] [place] Comment on above: Refill Request Start: 03-10-2024 End: 03-11-2024 Emergency department patient visit Dr. Zurdo Polo MD -Emergency Department Work Phone: Start: 03-08-2024 End: 04-05-[address] Jose Mondragon MD -Cardiac Rehab Work Phone: Start: 03-08-2024 End: 04-05-2024 ambulatory Chalon Angus Facility:[facility] Start: 02-29-2024 End: 02-29-2024 ambulatory Chair 2 [facility] Hematology/Oncology Comment on above: Rheumatoid arthritis involving both hands with positive rheumatoid factor (HCC) (Primary Dx) Start: 02-26-2024 End: 02-26-2024 Patient encounter procedure Ana Rosa RONDON -[facility] Work Phone: Start: 02-26-2024 End: 02-26-2024 ambulatory Chalon Angus Facility:[facility] Start: 02-26-2024 End: 02-26-2024 ambulatory Chalon [facility] Facility:[facility] Start: 02-21-2024 End: 03-05-2024 ambulatory Chalon Angus Facility:[facility] Start: 02-21-2024 End: 03-05-[address] Jose Mondragon MD -Cardiac Rehab Work Phone: Start: 02-09-2024 End: 02-09-2024 Emergency department patient visit Dr. Gustabo Harris -Emergency Department Work Phone: Start: 02-09-2024 End: 02-09-[address] Paul Greco MD -Laboratory, [facility] Start: 02-09-2024 End: 02-09-2024 ambulatory Chalbart Angus Facility:[facility] Start: 02-06-2024 End: 02-06-2024 Patient encounter procedure Andressa RONDON -[facility] Work Phone: Start: 02-06-2024 End: 02-06-2024 ambulatory Chalbart Angus Facility:[facility] Start: 02-05-2024 End: 02-05-2024 Patient encounter procedure Robert Farias MD Work Phone: [facility]ritis [facility] Rheumatology [place] Comment on above: Rheumatoid arthritis involving both hands with positive rheumatoid factor (HCC) (Primary Dx); Anemia, chronic disease; Recurrent infections Start: 02-05-2024 End: 02-05-2024 Telemedicine consultation with patient Robert Farias MD Work Phone: [facility] [place] Start: 02-05-2024 End: 02-05-2024 ambulatory [facility]ERT [facility]AS [facility] Start: 01-31-2024 End: 02-03-2024 ambulatory Chalon Angus Facility:[facility] Start: 01-31-2024 End: 02-03-[address] Jose Mondragon MD -Cardiac Rehab Work Phone: Start: 01-31-2024 End: 01-31-2024 Patient encounter procedure Xiang Rogers CHASSIS ENGINEER-C -Laboratory Work Phone: Start: 01-31-2024 End: 01-31-2024 ambulatory Chalon Angus Facility:[facility] Start: 01-24-2024 End: 01-24-[address] Jose Mondragon MD -Cardiac Rehab Work Phone: Start: 01-24-2024 End: 01-24-2024 ambulatory Chalon Angus Facility:[facility] Start: 01-22-2024 End: 01-22-2024 Refill Robert Farias MD Work Phone: [facility] Rheumatology [place] Comment on above: Refill Request Start: 01-20-2024 End: 01-22-2024 Telephone encounter Robert Farias MD Work Phone: [facility] Arthritis & Rheumatology Start: 01-18-2024 End: 01-18-2024 ambulatory Chair 5 [facility] Hematology/Oncology Comment on above: Rheumatoid arthritis involving both hands with positive rheumatoid factor (HCC) (Primary Dx) Start: 01-17-2024 Non-patient / Non-visit Dr. Reinaldo Mondragon MD -[facility] Start: 01-17-2024 ambulatory Chalon Angus Facility:[facility] Start: 01-12-2024 ambulatory Chalon Angus Facility:[facility] Start: 01-11-2024 End: 01-11-2024 ambulatory Chalon Angus Facility:[facility] Start: 01-11-2024 ambulatory Chalon Angus Facility:[facility] Start: 01-11-2024 End: 01-13-2024 Evaluation and management of inpatient Chalon Angus Facility:[facility] Start: 01-11-2024 End: 01-11-2024 Refill Robert Farias MD Work Phone: [facility]ritis [facility] Rheumat[facility] [place] Comment on above: Refill Request Start: 01-11-2024 End: 01-11-2024 ambulatory [facility] Facility:[facility] Start: 11-20-2023 End: 11-21-2023 Refill Robert Farias MD Work Phone: [facility] Rheumatology [place] Comment on above: Refill Request Start: 11-10-2023 End: 11-10-2023 ambulatory Chair 6 [facility] Hematology/Oncology Comment on above: Rheumatoid arthritis involving both hands with positive rheumatoid factor (HCC) (Primary Dx) Start: 11-02-2023 End: 11-02-2023 Refill Robert Farias MD Work Phone: [facility] [place] Comment on above: Refill Request Start: 10-13-2023 Refill Robert barger MD Work Phone: [facility] Rhe[facility] [place] Comment on above: Refill Request Start: 10-13-2023 Refill Robert barger MD Work Phone: [facility] Rhe[facility]ology [place] Comment on above: Refill Request Start: 09-29-2023 End: 09-29-2023 Patient encounter procedure Robert Farias MD Work Phone: [facility] Rheumatology [place] Comment on above: Rheumatoid arthritis involving both hands with positive rheumatoid factor (HCC) (Primary Dx) Start: 09-22-2023 End: 09-22-2023 ambulatory Chair 3 [facility] Hematology/Oncology Comment on above: Rheumatoid arthritis involving both hands with positive rheumatoid factor (HCC) (Primary Dx) Start: 09-13-2023 Orders Only Becca Garcia PA-C Work Phone: [facility] Rheumatology and Arthritis Start: 08-04-2023 End: 08-04-2023 ambulatory Chair 3 [facility] Hematology/Oncology Comment on above: Rheumatoid arthritis involving both hands with positive rheumatoid factor (HCC) (Primary Dx) Start: 08-03-2023 Telephone encounter Robert Farias MD Work Phone: [facility] Arthritis & Rheumatology Comment on above: Medication Preauthor ization (Renflexis- [place] Approved [id number] [employer]/Faxed 08.04.23-08.03.24) Start: 08-02-2023 Refill Robert barger MD Work Phone: [facility]ritis [facility] Rheumatology [place] Comment on above: Refill Request Start: 07-28-2023 Orders Only Robert barger MD Work Phone: [facility] [place] Start: 07-25-2023 Refill Robert barger MD Work Phone: [facility] [place] Comment on above: Refill Request Start: 06-16-2023 End: 06-16-2023 ambulatory Chair 6 [facility] Hematology/Oncology Comment on above: Rheumatoid arthritis involving both hands with positive rheumatoid factor (HCC) (Primary Dx) Start: 06-05-2023 Refill Robert barger MD Work Phone: [facility]ritis [facility] Rheumatology [place] Comment on above: Refill Request Start: 05-07-2023 Refill Robert barger MD Work Phone: [facility] [place] Comment on above: Refill Request Start: 04-28-2023 End: 04-28-2023 ambulatory Chair 7 [facility] Work Phone: Hematology/Oncology Comment on above: Rheumatoid arthritis involving both hands with positive rheumatoid factor (HCC) (Primary Dx) Start: 04-24-2023 Refill Robert barger MD Work Phone: [facility]ritis [facility] Rheumatology [place] Comment on above: Refill Request Start: 04-20-2023 Telephone encounter Robert Farias MD Work Phone: [facility] [place] Start: 04-17-2023 End: 04-17-2023 ambulatory Robert Farias MD Work Phone: [facility]ritis and Rheumatology [place] Comment on above: Rheumatoid arthritis involving both hands with positive rheumatoid factor (HCC) (Primary Dx) Start: 04-17-2023 End: 04-17-2023 Telemedicine consultation with patient Robert Farias MD Work Phone: [facility] Start: 02-01-2023 Refill Robert barger MD Work Phone: [facility]ritis [facility] Rheumatology [place] Comment on above: Refill Request Start: 01-20-2023 End: 01-20-20[address] amb[address] [place] [address] Hematology/Oncology Comment on above: Rheumatoid arthritis involving both hands with positive rheumatoid factor (HCC) (Primary Dx) Start: 01-12-2023 Telephone encounter Robert Farias MD Work Phone: [facility] [place] Comment on above: Medication Request ( Renflexis Order) Start: 01-10-2023 Refill Robert barger MD Work Phone: [facility] [place] Comment on above: Refill Request Start: 12-30-2022 End: 12-30-2022 ambulatory DO Alisa Escobar Work Phone: [facility] Work Phone: Start: 12-30-2022 End: 12-30-2022 Patient encounter procedure DO Alisa Escobar Work Phone: [facility] Work Phone: Start: 12-26-2022 End: 12-26-2022 ambulatory Robert Farias MD Work Phone: [facility]ritis [facility] Rhe[facility]ology [place] Comment on above: Rheumatoid arthritis involving both hands with positive rheumatoid factor (HCC) (Primary Dx) Start: 12-26-2022 End: 12-26-2022 Telemedicine consultation with patient Robert Farias MD Work Phone: [facility] Start: 12-19-2022 Refill Indjenaro barger MD Work Phone: Medical Records Comment on above: Refill Request Start: 12-08-2022 Refill Robert barger MD Work Phone: [facility] Rhe[facility] [place] Comment on above: Refill Request Start: 12-07-2022 Refill Robert barger MD Work Phone: [facility] Arthritis & Rheumatology Comment on above: Refill Request Start: 12-02-2022 End: 12-02-2022 ambulatory Chair 9 [facility] Work Phone: Hematology/Oncology Comment on above: Rheumatoid arthritis involving both hands with positive rheumatoid factor (HCC) (Primary Dx) Start: 11-26-2022 Orders Only Robert barger MD Work Phone: [facility] [place] Start: 11-11-2022 Refill Robert barger MD Work Phone: [facility] [place] Comment on above: Refill Request Start: 10-31-2022 Non-patient / Non-visit DO Olegario Escobar Work Phone: [facility] Start: 10-27-2022 End: 10-27-2022 ambulatory DO Alisa Escobar Work Phone: [facility] Work Phone: Start: 10-27-2022 End: 10-27-2022 Patient encounter procedure DO Alisa Escobar Work Phone: [facility]-Pulmonary Services/Neurology Work Phone: Start: 10-14-2022 End: 10-14-2022 ambulatory Chair 1 [facility] Hematology/Oncology Comment on above: Rheumatoid arthritis involving both hands with positive rheumatoid factor (HCC) (Primary Dx) Start: 10-09-2022 Refill Robert barger MD Work Phone: [facility]ritis [facility] Rheumatology [place] Comment on above: Refill Request Start: 09-14-2022 Refill Robert barger MD Work Phone: [facility] Arthritis & Rheumatology Comment on above: Refill Request Start: 09-08-2022 Refill Robert barger MD Work Phone: Medical Records Comment on above: Refill Request Start: 09-02-2022 End: 09-02-2022 ambulatory Robert Farias MD Work Phone: [facility]ritis [facility] Rhe[facility] [place] Comment on above: Rheumatoid arthritis involving both hands with positive rheumatoid factor (HCC) (Primary Dx) Start: 09-02-2022 End: 09-02-2022 Telemedicine consultation with patient Robert Farias MD Work Phone: [facility] Start: 08-26-2022 End: 08-26-2022 ambulatory Chair 7 [facility] [place] Work Phone: Hematology/Oncology Comment on above: Rheumatoid arthritis involving both hands with positive rheumatoid factor (HCC) (Primary Dx) Start: 08-24-2022 Orders Only Robert barger MD Work Phone: [facility] [place] Start: 08-10-2022 Refill Robert barger MD Work Phone: [facility] [place] Comment on above: Refill Request Start: 07-08-2022 End: 07-08-2022 ambulatory Chair 7 [facility] Work Phone: Hematology/Oncology Comment on above: Rheumatoid arthritis involving both hands with positive rheumatoid factor (HCC) (Primary Dx) Start: 06-30-2022 Orders Only Robert barger MD Work Phone: [facility] [place] Start: 06-29-2022 Refill Robert barger MD Work Phone: Medical Records Comment on above: Refill Request Start: 06-21-2022 Refill Robert barger MD Work Phone: [facility] Arthritis & Rheumatology Comment on above: Refill Request Start: 06-10-2022 Refill Indjenaro barger MD Work Phone: [facility] [place] Comment on above: Refill Request Start: 05-20-2022 End: 05-20-2022 ambulatory Chair 3 [facility] Hematology/Oncology Comment on above: Rheumatoid arthritis involving both hands with positive rheumatoid factor (HCC) (Primary Dx) Start: 05-12-2022 Refill Indjenaro barger MD Work Phone: [facility] [place] Comment on above: Refill Request Start: 05-06-2022 End: 05-06-2022 ambulatory [facility] Work Phone: Start: 05-06-2022 End: 05-06-2022 Patient encounter procedure [facility] Start: 05-02-2022 Refill Indjenaro barger MD Work Phone: Medical Records Comment on above: Refill Request Start: 04-13-2022 Refill Indjenaro barger MD Work Phone: [facility]ritis [facility] [place] Comment on above: Refill Request Start: 03-31-2022 End: 03-31-2022 ambulatory Chair 4 [facility] Hematology/Oncology Comment on above: Rheumatoid arthritis involving both hands with positive rheumatoid factor (HCC) (Primary Dx) Start: 03-31-2022 End: 03-31-2022 Subsequent hospital visit by physician [facility] [place] [facility] Comment on above: Asymptomatic postmen opausal status [Z78.0] Start: 03-30-2022 Refill Indjenaro barger MD Work Phone: [facility] Arthritis & Rheumatology Comment on above: Refill Request Start: 03-04-2022 Refill Indjenaro barger MD Work Phone: Medical Records Comment on above: Refill Request Start: 02-13-2022 Refill Indjenaro barger MD Work Phone: Medical Records Comment on above: Refill Request Start: 02-07-2022 Refill Robert barger MD Work Phone: [facility] [place] Comment on above: Refill Request Start: 02-04-2022 End: 02-04-2022 ambulatory Robert Farias MD Work Phone: [facility]ritis [facility] Rhe[facility] [place] Comment on above: Rheumatoid arthritis involving both hands with positive rheumatoid factor (HCC) (Primary Dx); Asymptomatic postmenopausal status Start: 02-04-2022 End: 02-04-2022 Telemedicine consultation with patient Robert Farias MD Work Phone: [facility] Start: 01-20-2022 Refill Robert barger MD Work Phone: Medical Records Comment on above: Refill Request Start: 01-20-2022 Telephone encounter Shawn Farias [facility]ritis and Rheumatology [place] Comment on above: [employer] Start: 01-12-2022 Refill Robert barger MD Work Phone: [facility] [facility] Comment on above: Refill Request Start: 01-07-2022 End: 01-07-2022 ambulatory Chair 8 [facility] Work Phone: Hematology/Oncology Comment on above: Rheumatoid arthritis involving both hands with positive rheumatoid factor (HCC) (Primary Dx) Start: 01-03-2022 Orders Only Robert barger MD Work Phone: [facility] [place] Start: 12-24-2021 Refill Robert barger MD Work Phone: Medical Records Comment on above: Refill Request Start: 12-15-2021 Refill Robert barger MD Work Phone: [facility] [place] Comment on above: Refill Request Start: 11-19-2021 End: 11-19-2021 ambulatory Chair 7 [facility] Work Phone: Hematology/Oncology Comment on above: Rheumatoid arthritis involving both hands with positive rheumatoid factor (HCC) (Primary Dx) Start: 11-12-2021 Orders Only Robert barger MD Work Phone: [facility] [place] Start: 10-22-2021 End: 10-22-2021 Patient encounter procedure Robert Farias MD Work Phone: [facility] [place] Comment on above: Rheumatoid arthritis involving both hands with positive rheumatoid factor (HCC) (Primary Dx) Start: 10-14-2021 Refill Robert barger MD Work Phone: [facility] [place] Comment on above: Refill Request Start: 10-01-2021 End: 10-01-2021 ambulatory Chair 1 [facility] Hematology/Oncology Comment on above: Rheumatoid arthritis involving both hands with positive rheumatoid factor (HCC) (Primary Dx) Start: 09-29-2021 Telephone encounter Robert Farias MD Work Phone: [facility] [place] Comment on above: Refill Request Start: 09-28-2021 Telephone encounter Robert Farias MD Work Phone: [facility] [place] Comment on above: Patient Question Start: 09-16-2021 End: 09-16-2021 ambulatory INDJENARO FARIAS Facility:[facility] Start: 09-10-2021 Refill Robert barger MD Work Phone: Medical Records Comment on above: Refill Request Start: 08-14-2021 Refill Robert barger MD Work Phone: [facility] [place] Comment on above: Refill Request Start: 08-13-2021 End: 08-13-2021 ambulatory Chair 4 [facility] Hematology/Oncology Comment on above: Rheumatoid arthritis involving both hands with positive rheumatoid factor (HCC) (Primary Dx) Start: 08-11-2021 Telephone encounter Robert Farias MD Work Phone: [facility] Rhe[facility]ology Comment on above: PENDING ([facility] P ENDING with [facility] fax with office note pt scheduled) Start: 08-10-2021 Orders Only Robert barger MD Work Phone: [facility] [place] Start: 08-09-2021 Refill Robert barger MD Work Phone: [facility] [place] Comment on above: Refill Request Start: 07-22-2021 Telephone encounter Robert Farias MD Work Phone: [facility] Comment on above: APPROVED (Humira Pen APPROVED [id number] 07.04.2021 - 07.21.2022 with [facility]/cover my meds) Start: 07-16-2021 End: 07-16-2021 Patient encounter procedure Robert Farias MD Work Phone: [facility] [place] Comment on above: Rheumatoid arthritis involving both hands with positive rheumatoid factor (HCC) (Primary Dx) Start: 07-16-2021 Telephone encounter Robert Farias MD Work Phone: [facility] [place] Comment on above: Patient Update Start: 06-25-2021 End: 06-25-2021 ambulatory Chair 1 [facility] Hematology/Oncology Comment on above: Rheumatoid arthritis involving both hands with positive rheumatoid factor (HCC) (Primary Dx) Start: 08-11-2020 ambulatory [facility] Provider [facility] Comment on above: RE:Labs Needed Pleas e Start: 08-11-2020 End: 08-11-2020 E-mail encounter from caregiver [facility] Provider [facility] Start: 08-11-2020 End: 08-11-2020 Telephone encounter Robert Farias MD Work Phone: [facility] Comment on above: Phone Call Start: 08-10-2020 End: 08-10-2020 Telephone encounter Robert Farias MD Work Phone: [facility] [place] Comment on above: Patient Update Start: 08-04-2020 End: 08-04-2020 Telephone encounter Robert Farias MD Work Phone: [facility] Comment on above: Pending PA ([facility] s fax pending with [facility]) Start: 06-19-2020 End: 06-19-2020 Hemonc Orders Only Robert Farias Work Phone: [facility] Rhe[facility] Comment on above: Rheumatoid arthritis involving both hands with positive rheumatoid factor (HCC) Rheumatoid arthritis involving both hands with positive rheumatoid factor (HCC) (Primary Dx); Chronic bilateral low back pain without sciatica Medication Authoriza tion (remicade) Procedures Date Procedure Procedure Detail Performing Clinician Start: 11-08-2024 Blood count complete auto&auto difrntl wbc Inderwiliit Jarrett DORMAN Work Phone: Start: 08-23-2024 MRI of brain without contrast Paul Greco MD Work Phone: Start: 08-09-2024 Blood count complete auto&auto difrntl wbc Becca Jose PA-C Work Phone: Start: 07-25-2024 Plain chest [...] 04-11-2024 Blood count complete auto&auto difrntl wbc Becca [place] PA-C Work Phone: Start: 03-10-2024 CT angiography [...] 09-22-2023 Blood count complete auto&auto difrntl wbc Becca RONDON-C Work Phone: Start: 06-16-2023 Blood count complete [...] DTaP,Tdap,Td Vaccine (2 - Td or Tdap) [facility] Start: 11-09-2027 Diabetes Screening Diabetes Screening [facility] Start: 08-10-2027 Diabetes Screening Diabetes Screening [facility] Start: 04-11-2027 Diabetes Screening Diabetes Screening [facility] Start: 01-17-2027 Diabetes Screening Diabetes Screening [facility] Start: 10-29-2026 Screening for malignant neoplasm of colon [facility] Start: 09-21-2026 Diabetes Screening Diabetes Screening [facility] Start: 06-15-2026 Diabetes Screening Diabetes Screening [facility] Start: 01-20-2026 Diabetes Screening Diabetes Screening [facility] Start: 10-14-2025 DIABETES SCREEN DIABETES SCREEN [facility] Start: 10-14-2025 Diabetes Screening Diabetes Screening [facility] Start: 06-25-2025 End: 06-25-2025 Patient encounter procedure 06/25/2025 9:00 AM EDT [facility] [place] [address] Robert Farias MD [address] [place], [place] [id number] 8 month fu [facility] [place] Comment on above: 8 month fu Start: 05-20-2025 DIABETES SCREEN DIABETES SCREEN [facility] Start: 03-31-2025 DIABETES SCREEN DIABETES SCREEN [facility] Start: 02-26-2025 End: 02-26-2025 Patient encounter procedure 02/26/2025 8:00 AM EST [facility] [address] [address] Robert Farias MD [address] [place], [place] [id number] 4 month fu [facility] [place] Comment on above: 4 month fu Start: 02-07-2025 End: 02-07-2025 ambulatory 02/07/2025 1:00 PM EST [facility] Hematology/Oncology [address] [place], [place] [id number] *[facility] Comment on above: *[facility] Start: 12-20-2024 End: 12-20-2024 ambulatory 12/20/2024 1:00 PM EDT [facility] Hematology/Oncology [address] [place], [place] [id number] *[facility] Comment on above: *[facility] Start: 11-19-2024 DIABETES SCREEN DIABETES SCREEN [facility] Start: 11-08-2024 End: 11-08-2024 ambulatory Hematology/Oncology Comment on above: *[facility] - (Auth Pe nding) Start: 11-04-2024 Influenza vaccination Influenza Vaccine (#1) [facility] Start: 10-25-2024 End: 01-24-2025 LELO BY IFA SCREEN LELO BY IFA SCREEN Lab Routine Cerebrovascular disease Expected: 10/25/2024, Expires: 01/24/2025 [facility] Comment on above: Expected: 10/25/2024, Expires: Start: 10-25-2024 End: 01-24-2025 B 2 GPI IGG & IGM B 2 GPI IGG & IGM Lab Routine Cerebrovascular disease Expected: 10/25/2024, Expires: 01/24/2025 [facility] Comment on above: Expected: 10/25/2024, Expires: Start: 10-25-2024 End: 01-24-2025 BLOOD TB SCREEN BLOOD TB SCREEN Lab Routine Rheumatoid arthritis involving both hands with positive rheumatoid factor (HCC) High risk medication use Expected: 10/25/2024, Expires: 01/24/2025 [facility] Work Phone: Comment on above: Expected: 10/25/2024, Expires: Start: 10-25-2024 End: 01-24-2025 Cardiolipin IgG and IgM panel - Serum ANTI-CARDIOLIPIN AB Lab Routine Cerebrovascular disease Expected: 10/25/2024, Expires: 01/24/2025 [facility] Comment on above: Expected: 10/25/2024, Expires: Start: 10-25-2024 End: 01-24-2025 CBC W Auto Differential panel - Blood COMPLETE BLOOD COUNT AND DIFFERENTIAL Lab Routine Rheumatoid arthritis involving both hands with positive rheumatoid factor (HCC) High risk medication use Expected: 10/25/2024, Expires: 01/24/2025 [facility] Comment on above: Expected: 10/25/2024, Expires: Start: 10-25-2024 End: 01-24-2025 Complement C3 [Mass/volume] in Serum or Plasma C3 COMPLEMENT Lab Routine Cerebrovascular disease Expected: 10/25/2024, Expires: 01/24/2025 [facility] Comment on above: Expected: 10/25/2024, Expires: Start: 10-25-2024 End: 01-24-2025 Complement C4 [Mass/volume] in Serum or Plasma C4 COMPLEMENT Lab Routine Cerebrovascular disease Expected: 10/25/2024, Expires: 01/24/2025 [facility] Comment on above: Expected: 10/25/2024, Expires: Start: 10-25-2024 End: 01-24-2025 Comprehensive metabolic 2000 panel - Serum or Plasma COMPREHENSIVE METABOLIC PANEL Lab Routine Rheumatoid arthritis involving both hands with positive rheumatoid factor (HCC) High risk medication use Expected: 10/25/2024, Expires: 01/24/2025 [facility] Comment on above: Expected: 10/25/2024, Expires: Start: 10-25-2024 End: 10-25-2024 [facility] 10/25/2024 7:00 AM EDT [facility] [address] [address] Robert Farias MD [address] [place], [place] [phone] 4 mo f/up, MTX refill, pe [facility] [place] Comment on above: 4 mo f/up, MTX refill, pe Start: 09-27-2024 End: 09-27-2024 ambulatory 09/27/2024 1:30 PM EDT [facility]fusion [facility] Hematology/Oncology [address] [place] [address] *[facility] Comment on above: *[facility] Start: 08-12-2024 End: 11-11-2024 BLOOD TB SCREEN, INCUBATED BLOOD TB SCREEN, INCUBATED Lab Routine Rheumatoid arthritis involving both hands with positive rheumatoid factor (HCC) Expected: 08/12/2024, Expires: 11/11/2024 [facility] Work Phone: Comment on above: Expected: 08/12/2024, Expires: Start: 07-25-2024 [facility] Start: 07-25-2024 [facility] Start: 07-23-2024 End: 07-23-2024 ambulatory Hematology/Oncology Comment on above: *[facility] - (Auth Pe nding) Start: 07-12-2024 DIABETES SCREEN DIABETES SCREEN [facility] Start: 07-04-2024 End: 07-04-2024 ambulatory 07/04/2024 10:30 AM EDT [facility] Hematology[facility]Oncology [address] [place], [place] [phone] *[facility] Hematology/Oncology Comment on above: *[facility] Start: 07-03-2024 [facility] Start: 07-03-2024 [facility] Start: 06-14-2024 End: 06-14-2024 Patient encounter procedure 06/14/2024 2:40 PM EDT Office Visit [facility] [address] [phone] Robert Farias MD [address] [place] [address] Follow up [facility] [place] Comment on above: Follow up Start: 06-14-2024 End: 09-13-2024 BLOOD TB SCREEN, INCUBATED BLOOD TB SCREEN, INCUBATED Lab Routine Rheumatoid arthritis involving both hands with positive rheumatoid factor (HCC) Expected: 06/14/2024, Expires: 09/13/2024 [facility] Comment on above: Expected: 06/14/2024, Expires: Start: 06-14-2024 End: 09-13-2024 CBC panel - Blood by Automated count COMPLETE BLOOD COUNT Lab Routine Rheumatoid arthritis involving both hands with positive rheumatoid factor (HCC) Expected: 06/14/2024, Expires: 09/13/2024 [facility] Comment on above: Expected: 06/14/2024, Expires: Start: 06-14-2024 End: 09-13-2024 Comprehensive metabolic 2000 panel - Serum or Plasma COMPREHENSIVE METABOLIC PANEL Lab Routine Rheumatoid arthritis involving both hands with positive rheumatoid factor (HCC) Expected: 06/14/2024, Expires: 09/13/2024 [facility] Comment on above: Expected: 06/14/2024, Expires: Start: 06-14-2024 End: 09-13-2024 Erythrocyte sedimentation rate SEDIMENTATION RATE, WESTERGREN Lab Routine Rheumatoid arthritis involving both hands with positive rheumatoid factor (HCC) Expected: 06/14/2024, Expires: 09/13/2024 [facility] Comment on above: Expected: 06/14/2024, Expires: Start: 06-03-2024 End: 06-03-2024 ambulatory 06/03/2024 12:00 PM EDT Infusion Center Hematology/Oncology [address] [place], [place] [phone] [facility] - (Auth Pending) Hematology/Oncology Comment on above: [facility] - (Auth Pending) Start: 05-27-2024 Patient discharge [facility] Start: 05-27-2024 Venous catheter care management [facility] Start: 05-27-2024 Care regimes management [facility] Start: 05-27-2024 Notification of physician [facility] Start: 05-27-2024 Admission procedure [facility] Start: 05-27-2024 Assessment of risk of venous thromboembolism [facility] Start: 05-27-2024 Incentive spirometry [facility] Start: 05-27-2024 Insertion of catheter into peripheral vein [facility] Start: 05-27-2024 Measuring intake and output [facility] Start: 05-27-2024 Providing care according to standard [facility] Start: 05-27-2024 Provision of activity privileges [facility] Start: 05-27-2024 Introduction of urinary catheter [facility] Start: 05-27-2024 Oxygen therapy [facility] Start: 05-27-2024 Referral to service [facility] Start: 05-27-2024 End: 05-27-2024 [facility] Start: 05-23-2024 End: 05-23-2024 ambulatory 05/23/2024 10:30 AM EDT Infusion Center Hematology/Oncology [place] [address] [place] [address] *[facility] Hematology/Oncology Comment on above: *[facility] Start: 04-15-2024 Colonoscopy w/biopsy single/multiple COLONOSCOPY AND BIOPSY [facility] Start: 04-15-2024 Egd transoral biopsy single/multiple EGD BIOPSY SINGLE/MULTIPLE [facility] Start: 04-15-2024 Venous catheter care management [facility] Start: 04-15-2024 Irrigation of vascular catheter [facility] Start: 04-15-2024 Patient discharge [facility] Start: 04-13-2024 DIABETES SCREEN DIABETES SCREEN [facility] Start: 04-11-2024 End: 04-11-2024 ambulatory 04/11/2024 10:30 AM EST [facility]fusion Center Hematology/Oncology [address] [place], [place] [phone] *[facility] Hematology/Oncology Comment on above: *[facility] Start: 03-11-2024 [facility] Start: 03-11-2024 Venous catheter care management [facility] Start: 03-10-2024 [facility] Start: 02-29-2024 End: 02-29-2024 ambulatory 02/29/2024 10:30 AM EST [facility]fusion [facility] Hematology/Oncology [address] [place] [address] *[facility] Hematology/Oncology Comment on above: *[facility] Start: 02-16-2024 End: 02-16-2024 ambulatory 02/16/2024 10:30 AM EST [facility]fusion [facility] Hematology/Oncology [address] [place], [place] [id number] *[facility] Hematology/Oncology Comment on above: *[facility] Start: 02-09-2024 Venous catheter care management [facility] Start: 02-09-2024 [facility] Start: 02-09-2024 End: 02-09-2024 [facility] Start: 02-05-2024 End: 02-05-2024 Patient encounter procedure 02/05/2024 9:00 AM EST [facility] [address] [address] Robert Farias MD [address] [place] [address] 4 months [facility] [place] Comment on above: 4 months Start: 01-24-2024 Patient referral to dietitian [facility] Start: 01-20-2024 End: 04-20-2024 Cobalamin (Vitamin B12) [Mass/volume] in Serum or Plasma VITAMIN B12 Lab Routine Anemia, chronic disease Expected: 01/20/2024, Expires: 04/20/2024 [facility] Comment on above: Expected: 01/20/2024, Expires: Start: 01-20-2024 End: 04-20-2024 Ferritin [Mass/volume] in Serum or Plasma FERRITIN Lab Routine Anemia, chronic disease Expected: 01/20/2024, Expires: 04/20/2024 [facility] Comment on above: Expected: 01/20/2024, Expires: Start: 01-20-2024 End: 04-20-2024 Folate [Mass/volume] in Serum or Plasma FOLATE, SERUM Lab Routine Anemia, chronic disease Expected: 01/20/2024, Expires: 04/20/2024 [facility] Comment on above: Expected: 01/20/2024, Expires: Start: 01-20-2024 End: 04-20-2024 Iron and Iron binding capacity panel - Serum or Plasma IRON AND TIBC Lab Routine Anemia, chronic disease Expected: 01/20/2024, Expires: 04/20/2024 [facility] Work Phone: Comment on above: Expected: 01/20/2024, Expires: Start: 01-18-2024 End: 01-18-2024 ambulatory 01/18/2024 9:00 AM EST Infusion Center Hematology/Oncology [address] [place] [address] *[facility] Hematology/Oncology Comment on above: *[facility] Start: 01-17-2024 Patient referral [facility] Work Phone: Start: 12-29-2023 End: 12-29-2023 ambulatory 12/29/2023 10:30 AM EDT Infusion Center Hematology/Oncology [address] [place] [address] *[facility] Hematology/Oncology Comment on above: *[facility] Start: 11-10-2023 End: 11-10-2023 ambulatory 11/10/2023 10:30 AM EDT Infusion Center Hematology/Oncology [address] [place], [place] [id number] *[facility] Hematology/Oncology Comment on above: *[facility] Start: 11-05-2023 Covid-19 Vaccine () Covid-19 Vaccine () [facility] Start: 11-05-2023 Covid-19 Vaccine () Covid-19 Vaccine () [facility] Start: 11-05-2023 Influenza vaccination Influenza Vaccine (#1) [facility] Start: 09-29-2023 End: 09-29-2023 Patient encounter procedure 09/29/2023 2:20 PM EDT Office Visit [facility] [place] [address] Robert Farias MD [address] [place], [place] [phone] Follow up [facility] [place] Comment on above: Follow up Start: 09-22-2023 End: 09-22-2023 ambulatory 09/22/2023 10:30 AM EDT Infusion Center Hematology/Oncology [address] [place] [address] *[facility] Hematology/Oncology Comment on above: *[facility] Start: 09-15-2023 End: 09-15-2023 Patient encounter procedure 09/15/2023 2:40 PM EDT Office Visit [facility] [address] [id number] Robert Farias MD [address] [place], [place] [id number] Follow up [facility] [place] Comment on above: Follow up Start: 08-04-2023 End: 08-04-2023 ambulatory Hematology/Oncology Comment on above: *[facility] - (Auth Pe nding) Start: 06-16-2023 End: 09-15-2023 BLOOD TB SCREEN, INCUBATED [facility] Work Phone: Comment on above: Expected: 06/16/2023, Expires: Start: 05-25-2023 Lipid 1996 panel - Serum or Plasma Lipid Screening [facility] Start: 05-25-2023 Lipid panel Lipid Screening [facility] Start: 05-25-2023 LIPID SCREEN LIPID SCREEN [facility] Start: 04-17-2023 End: 07-17-2023 BLOOD TB SCREEN BLOOD TB SCREEN Lab Routine Rheumatoid arthritis involving both hands with positive rheumatoid factor (HCC) Expected: 04/17/2023, Expires: 07/17/2023 [facility] Work Phone: Comment on above: Expected: 04/17/2023, Expires: Start: 04-17-2023 End: 07-17-2023 CBC W Auto Differential panel - Blood CBC + DIFF Lab Routine Rheumatoid arthritis involving both hands with positive rheumatoid factor (HCC) Expected: 04/17/2023, Expires: 07/17/2023 [facility] Work Phone: Comment on above: Expected: 04/17/2023, Expires: Start: 04-17-2023 End: 07-17-2023 Comprehensive metabolic 2000 panel - Serum or Plasma COMP METABOLIC PANEL Lab Routine Rheumatoid arthritis involving both hands with positive rheumatoid factor (HCC) Expected: 04/17/2023, Expires: 07/17/2023 [facility] Work Phone: Comment on above: Expected: 04/17/2023, Expires: Start: 03-09-2023 Covid-19 Vaccine () Covid-19 Vaccine () [facility] Start: 03-06-2023 Behavioral Health Screening Behavioral Health Screening [facility] Start: 03-06-2023 Depression Assessment Depression Assessment [facility] Start: 12-26-2022 End: 03-27-2023 CBC W Auto Differential panel - Blood CBC + DIFF Lab Routine Rheumatoid arthritis involving both hands with positive rheumatoid factor (HCC) Expected: 12/26/2022, Expires: 03/27/2023 [facility] Work Phone: Comment on above: Expected: 12/26/2022, Expires: 4 Start: 12-26-2022 End: 03-27-2023 Comprehensive metabolic 2000 panel - Serum or Plasma COMP METABOLIC PANEL Lab Routine Rheumatoid arthritis involving both hands with positive rheumatoid factor (HCC) Expected: 12/26/2022, Expires: 03/27/2023 [facility] Work Phone: Comment on above: Expected: 12/26/2022, Expires: Start: 12-26-2022 End: 03-27-2023 Erythrocyte sedimentation rate SED RATE WESTERGREN Lab Routine Rheumatoid arthritis involving both hands with positive rheumatoid factor (HCC) Expected: 12/26/2022, Expires: 03/27/2023 [facility] Work Phone: Comment on above: Expected: 12/26/2022, Expires: Start: 11-04-2022 Covid-19 Vaccine () Covid-19 Vaccine () [facility] Start: 11-04-2022 Influenza vaccination [facility] Start: 09-02-2022 End: 11-02-2022 CBC W Auto Differential panel - Blood CBC + DIFF Lab Routine Rheumatoid arthritis involving both hands with positive rheumatoid factor (HCC) Expected: 09/02/2022, Expires: 11/02/2022 [facility] Work Phone: Comment on above: Expected: 09/02/2022, Expires: Start: 09-02-2022 End: 11-02-2022 Comprehensive metabolic 2000 panel - Serum or Plasma COMP METABOLIC PANEL Lab Routine Rheumatoid arthritis involving both hands with positive rheumatoid factor (HCC) Expected: 09/02/2022, Expires: 11/02/2022 [facility] Work Phone: Comment on above: Expected: 09/02/2022, Expires: 3 Start: 09-02-2022 End: 11-02-2022 Erythrocyte sedimentation rate SED RATE WESTERGREN Lab Routine Rheumatoid arthritis involving both hands with positive rheumatoid factor (HCC) Expected: 09/02/2022, Expires: 11/02/2022 [facility] Work Phone: Comment on above: Expected: 09/02/2022, Expires: 3 Start: 03-10-2022 COVID-19 VACCINE (5 - Moderna risk series) COVID-19 VACCINE (5 - Moderna risk series) [facility] Start: 03-06-2022 DEPRESSION ASSESSMENT DEPRESSION ASSESSMENT [facility] Start: 02-04-2022 End: 04-06-2022 CBC panel - Blood by Automated count CBC Lab Routine Rheumatoid arthritis involving both hands with positive rheumatoid factor (HCC) Expected: 02/04/2022, Expires: 04/06/2022 [facility] Work Phone: Comment on above: Expected: 02/04/2022, Expires: 3 Start: 02-04-2022 End: 04-06-2022 Comprehensive metabolic 2000 panel - Serum or Plasma COMP METABOLIC PANEL Lab Routine Rheumatoid arthritis involving both hands with positive rheumatoid factor (HCC) Expected: 02/04/2022, Expires: 04/06/2022 [facility] Work Phone: Comment on above: Expected: 02/04/2022, Expires: 3 Start: 02-04-2022 End: 04-06-2022 Erythrocyte sedimentation rate SED RATE WESTERGREN Lab Routine Rheumatoid arthritis involving both hands with positive rheumatoid factor (HCC) Expected: 02/04/2022, Expires: 04/06/2022 [facility] Work Phone: Comment on above: Expected: 02/04/2022, Expires: 3 Start: 11-04-2021 Influenza vaccination INFLUENZA (#1) [facility] Start: 10-22-2021 End: 12-22-2021 BLOOD TB SCREEN, INCUBATED BLOOD TB SCREEN, INCUBATED Lab Routine Rheumatoid arthritis involving both hands with positive rheumatoid factor (HCC) Expected: 10/22/2021, Expires: 12/22/2021 [facility] Work Phone: Comment on above: Expected: 10/22/2021, Expires: 2 Start: 10-22-2021 End: 12-22-2021 CBC panel - Blood by Automated count CBC Lab Routine Rheumatoid arthritis involving both hands with positive rheumatoid factor (HCC) Expected: 10/22/2021, Expires: 12/22/2021 [facility] Work Phone: Comment on above: Expected: 10/22/2021, Expires: 2 Start: 10-22-2021 End: 12-22-2021 Comprehensive metabolic 2000 panel - Serum or Plasma COMP METABOLIC PANEL Lab Routine Rheumatoid arthritis involving both hands with positive rheumatoid factor (HCC) Expected: 10/22/2021, Expires: 12/22/2021 [facility] Work Phone: Comment on above: Expected: 10/22/2021, Expires: 2 Start: 10-22-2021 End: 12-22-2021 Erythrocyte sedimentation rate SED RATE WESTERGREN Lab Routine Rheumatoid arthritis involving both hands with positive rheumatoid factor (HCC) Expected: 10/22/2021, Expires: 12/22/2021 [facility] Work Phone: Comment on above: Expected: 10/22/2021, Expires: 2 Start: 04-25-2021 COVID-19 VACCINE (4 - Booster for Moderna series) COVID-19 VACCINE (4 - Booster for Moderna series) [facility] Start: 04-17-2021 COVID-19 VACCINE (4 - Booster for Moderna series) COVID-19 VACCINE (4 - Booster for Moderna series) [facility] Start: 03-20-2021 COVID-19 VACCINE (4 - Booster for Moderna series) COVID-19 VACCINE (4 - Booster for Moderna series) [facility] Start: 03-06-2021 DEPRESSION ASSESSMENT DEPRESSION ASSESSMENT [facility] Start: 11-04-2020 Influenza vaccination INFLUENZA (Season Ended) [facility] Start: 08-10-2020 End: 08-10-2021 BLOOD TB SCREEN, INCUBATED BLOOD TB SCREEN, INCUBATED Lab Routine Rheumatoid arthritis involving both hands with positive rheumatoid factor (HCC) Expected: 08/10/2020, Expires: 08/10/2021 [facility] Comment on above: Expected: 08/10/2020, Expires: 2 Start: 08-10-2020 End: 08-10-2021 CBC W Auto Differential panel - Blood CBC + DIFF Lab Routine Rheumatoid arthritis involving both hands with positive rheumatoid factor (HCC) Expected: 08/10/2020, Expires: 08/10/2021 [facility] Comment on above: Expected: 08/10/2020, Expires: 2 Start: 08-10-2020 End: 08-10-2021 Comprehensive metabolic 2000 panel - Serum or Plasma COMP METABOLIC PANEL Lab Routine Rheumatoid arthritis involving both hands with positive rheumatoid factor (HCC) Expected: 08/10/2020, Expires: 08/10/2021 [facility] Comment on above: Expected: 08/10/2020, Expires: 2 Start: 08-10-2020 End: 08-10-2021 Erythrocyte sedimentation rate SED RATE WESTERGREN Lab Routine Rheumatoid arthritis involving both hands with positive rheumatoid factor (HCC) Expected: 08/10/2020, Expires: 08/10/2021 [facility] Comment on above: Expected: 08/10/2020, Expires: 2 Start: 08-10-2020 End: 08-10-2021 Hepatitis B virus surface Ab [Presence] in Serum by Immunoassay HEP B SURF AG SCRN Lab Routine Rheumatoid arthritis involving both hands with positive rheumatoid factor (HCC) Expected: 08/10/2020, Expires: 08/10/2021 [facility] Comment on above: Expected: 08/10/2020, Expires: 2 Start: 08-10-2020 End: 08-10-2021 Hepatitis C virus Ab [Presence] in Serum HEP C AB IA W/CONF SCRN Lab Routine Rheumatoid arthritis involving both hands with positive rheumatoid factor (HCC) Expected: 08/10/2020, Expires: 08/10/2021 [facility] Comment on above: Expected: 08/10/2020, Expires: 2 Start: 2020 RSV Vaccine (1 - 1-dose 60+ series) RSV Vaccine (1 - 1-dose 60+ series) [facility] Start: 2020 RSV Vaccine (1 - Risk 60-74 years 1-dose series) RSV Vaccine (1 - Risk 60-74 years 1-dose series) [facility] Start: 06-18-2020 COVID-19 VACCINE (2 - Moderna 2-dose series) COVID-19 VACCINE (2 - Moderna 2-dose series) [facility] Start: 11-18-2019 Shingrix Vaccine (2 of 2) Shingrix Vaccine (2 of 2) [facility] Start: 05-25-2019 Screening for malignant neoplasm of breast Mammogram Screening [facility] Start: 07-24-2018 Pneumococcal vaccination [facility] Start: 2010 Screening for malignant neoplasm of colon [facility] Start: 2010 SHINGRIX VACCINE (1 of 2) SHINGRIX VACCINE (1 of 2) [facility] Start: 2005 COLOGUARD (FIT-DNA) COLOGUARD (FIT-DNA) [facility] Start: 2005 Colonoscopy COLONOSCOPY [facility] Start: 2005 COLORECTAL CANCER SCREENING COLORECTAL CANCER SCREENING [facility] Start: [address] COLONOGRAPHY [facility] Start: 2005 DIABETES SCREEN DIABETES SCREEN [facility] Start: 2005 FECAL OCCULT BLOOD FECAL OCCULT BLOOD [facility] Start: 2005 LIPID SCREEN LIPID SCREEN [facility] Start: 2005 Screening for malignant neoplasm of colon [facility] Start: 2005 SIGMOIDOSCOPY SIGMOIDOSCOPY [facility] Start: 2000 Mammography [facility] Start: 2000 Screening for malignant neoplasm of breast Mammogram Screening [facility] Start: 1990 HPV TESTING HPV TESTING [facility] Start: 1990 Screening for malignant neoplasm of cervix HPV Testing [facility] Start: 1981 PAP TESTING PAP TESTING [facility] Start: 1981 Screening for malignant neoplasm of cervix Pap Testing [facility] Start: 08-01-1979 SHINGRIX VACCINE (1 of 2) SHINGRIX VACCINE (1 of 2) [facility] Start: 08-01-1979 Urine microalbumin profile [facility] Start: 1978 Anxiety Screening Anxiety Screening [facility] Start: 1978 Depression Screening Depression Screening [facility] Start: 1978 HEPATITIS C SCREENING HEPATITIS C SCREENING [facility] Start: 1978 HIV SCREENING HIV SCREENING [facility] Start: 1978 HIV screening HIV Screening [facility] Start: 1972 Adult depression screening assessment DEPRESSION SCREENING [facility] Start: 08-01-1971 Screening for malignant neoplasm of cervix Cervical Cancer Screening [facility] Start: 1966 PNEUMOCOCCAL (1 - PCV) PNEUMOCOCCAL (1 - PCV) [facility] Start: 1966 Pneumococcal vaccination Pneumococcal Vaccine (1 - PCV) [facility] Ambulatory blood pressure recording [facility] LELO BY IFA SCREEN LELO BY IFA SCR EEN Lab Routine Cerebrovascular disease 11/08/2024 1:05 PM EDT [facility] B 2 GPI IGG & IGM B 2 GPI IGG & IGM Lab Routine Cerebrovascular disease 11/08/2024 1:05 PM EDT [facility] Basic metabolic 2008 panel with ionized calcium - Serum or Plasma [facility] Basic metabolic 2008 panel with ionized calcium - Serum or Plasma [facility] BETA 2 GLYCOPROTEIN, IGG BETA 2 GLYCOPROTEIN, IGG Lab Routine Cerebrovascular disease 11/08/2024 1:05 PM EDT [facility] BETA 2 GLYCOPROTEIN, IGM BETA 2 GLYCOPROTEIN, IGM Lab Routine Cerebrovascular disease 11/08/2024 1:05 PM [facility] BLOOD TB SCREEN BLOOD TB SCREEN Lab Routine Rheumatoid arthritis involving both hands with positive rheumatoid factor (HCC) High risk medication use 11/08/2024 1:05 PM T [facility] BLOOD TB SCREEN, INCUBATED BLOOD TB SCREEN, INCUBATED Lab Routine Rheumatoid arthritis involving both hands with positive rheumatoid factor (HCC) 11/19/2021 10:36 AM [facility] Work Phone: BLOOD TB SCREEN, INCUBATED BLOOD TB SCREEN, INCUBATED Lab Routine Rheumatoid arthritis involving both hands with positive rheumatoid factor (HCC) 08/09/2024 2:08 PM [facility] Cardiolipin IgA Ab [Units/volume] in Serum by Immunoassay CARDIOLIPIN IGA ABS Lab Routine Cerebrovascular disease 11/08/2024 1:05 PM [facility] CARDIOLIPIN IGG ABS CARDIOLIPIN IGG ABS Lab Routine Cerebrovascular disease 11/08/2024 1:05 PM EDT [facility] Cardiolipin IgG and IgM panel - Serum ANTI-CARDIOLIPIN AB Lab Routine Cerebrovascular disease 11/08/2024 1:05 PM EDT [facility] CARDIOLIPIN IGM ABS CARDIOLIPIN IGM ABS Lab Routine Cerebrovascular disease 11/08/2024 1:05 PM [facility] CBC W Auto Different ial panel - Blood CBC + DIFF Lab Routine Rheumatoid arthritis involving both hands with positive rheumatoid factor (HCC) 05/20/2022 9:45 AM EDT [facility] Work Phone: End: 09-21-2024 CBC W Auto Differential panel - Blood COMPLETE BLOOD COUNT AND DIFFERENTIAL Lab Routine Rheumatoid arthritis involving both hands with positive rheumatoid factor (HCC) Every 3 months for 4 Occurrences starting 09/22/2023 until 09/21/2024, 1 completed [facility] Work Phone: Comment on above: Every 3 months for 4 Occurrences startin g 09/22/2023 until 09/21/2024, 1 completed End: 01-17-2025 CBC W Auto Differential panel - Blood COMPLETE BLOOD COUNT AND DIFFERENTIAL Lab Routine Rheumatoid arthritis involving both hands with positive rheumatoid factor (HCC) Every 3 months for 4 Occurrences starting 01/18/2024 until 01/17/2025 [facility] Work Phone: Comment on above: Every 3 months for 4 Occurrences startin g 01/18/2024 until 01/17/2025 CBC W Auto Different ial panel - Blood COMPLETE BLOOD COUNT AND DIFFERENTIAL Lab Routine Rheumatoid arthritis involving both hands with positive rheumatoid factor (HCC) 01/18/2024 8:50 AM [facility] End: 04-11-2025 CBC W Auto Differential panel - Blood COMPLETE BLOOD COUNT AND DIFFERENTIAL Lab Routine Rheumatoid arthritis involving both hands with positive rheumatoid factor (HCC) Every 3 months for 4 Occurrences starting 04/11/2024 until 04/11/2025 [facility] Work Phone: Comment on above: Every 3 months for 4 Occurrences startin g 04/11/2024 until 04/11/2025 End: 08-09-2025 CBC W Auto Differential panel - Blood COMPLETE BLOOD COUNT AND DIFFERENTIAL Lab Routine Rheumatoid arthritis involving both hands with positive rheumatoid factor (HCC) Every 3 months for 4 Occurrences starting 08/09/2024 until 08/09/2025 [facility] Work Phone: Comment on above: Every 3 months for 4 Occurrences startin g 08/09/2024 until 08/09/2025 End: 11-08-2025 CBC W Auto Differential panel - Blood COMPLETE BLOOD COUNT AND DIFFERENTIAL Lab Routine Rheumatoid arthritis involving both hands with positive rheumatoid factor (HCC) Every 3 months for 4 Occurrences starting 11/08/2024 until 11/08/2025 [facility] Work Phone: Comment on above: Every 3 months for 4 Occurrences startin g 11/08/2024 until 11/08/2025 Complement C3 [Mass/volume] in Serum or Plasma C3 COMPLEMENT Lab Routine Cerebrovascular disease 11/08/2024 1:05 PM EDT [facility] Complement C4 [Mass/volume] in Serum or Plasma C4 COMPLEMENT Lab Routine Cerebrovascular disease 11/08/2024 1:05 PM EDT [facility] Comprehensive metabo lic 2000 panel - Serum or Plasma COMP METABOLIC PANEL Lab Routine Rheumatoid arthritis involving both hands with positive rheumatoid factor (HCC) [facility] End: 09-21-2024 Comprehensive metabolic 2000 panel - Serum or Plasma COMPREHENSIVE METABOLIC PANEL Lab Routine Rheumatoid arthritis involving both hands with positive rheumatoid factor (HCC) Every 3 months for 4 Occurrences starting 09/22/2023 until 09/21/2024, 1 completed [facility] Comment on above: Every 3 months for 4 Occurrences startin g 09/22/2023 until 09/21/2024, 1 completed End: 01-17-2025 Comprehensive metabolic 2000 panel - Serum or Plasma COMPREHENSIVE METABOLIC PANEL Lab Routine Rheumatoid arthritis involving both hands with positive rheumatoid factor (HCC) Every 3 months for 4 Occurrences starting 01/18/2024 until 01/17/2025 [facility] Comment on above: Every 3 months for 4 Occurrences startin g 01/18/2024 until 01/17/2025 Comprehensive metabo lic 2000 panel - Serum or Plasma COMPREHENSIVE METABOLIC PANEL Lab Routine Rheumatoid arthritis involving both hands with positive rheumatoid factor (HCC) 01/18/2024 8:50 AM [facility] End: 04-11-2025 Comprehensive metabolic 2000 panel - Serum or Plasma COMPREHENSIVE METABOLIC PANEL Lab Routine Rheumatoid arthritis involving both hands with positive rheumatoid factor (HCC) Every 3 months for 4 Occurrences starting 04/11/2024 until 04/11/2025 [facility] Comment on above: Every 3 months for 4 Occurrences startin g 04/11/2024 until 04/11/2025 End: 08-09-2025 Comprehensive metabolic 2000 panel - Serum or Plasma COMPREHENSIVE METABOLIC PANEL Lab Routine Rheumatoid arthritis involving both hands with positive rheumatoid factor (HCC) Every 3 months for 4 Occurrences starting 08/09/2024 until 08/09/2025 [facility] Comment on above: Every 3 months for 4 Occurrences startin g 08/09/2024 until 08/09/2025 End: 11-08-2025 Comprehensive metabolic 2000 panel - Serum or Plasma COMPREHENSIVE METABOLIC PANEL Lab Routine Rheumatoid arthritis involving both hands with positive rheumatoid factor (HCC) Every 3 months for 4 Occurrences starting 11/08/2024 until 11/08/2025 [facility] Comment on above: Every 3 months for 4 Occurrences startin g 11/08/2024 until 11/08/2025 End: 07-14-2025 DXA Skeletal system.axial Views for bone density DXA-AXIAL SKELETON Radiology Routine Asymptomatic postmenopausal status 1 Occurrences starting 06/14/2024 until 07/14/2025 [facility] Work Phone: Comment on above: 1 Occurrences starting 06/14/2024 until 07/14/2025 End: 11-24-2025 DXA Skeletal system.axial Views for bone density DXA-AXIAL SKELETON Radiology Routine Asymptomatic postmenopausal status 1 Occurrences starting 10/25/2024 until 11/24/2025 [facility] Comment on above: 1 Occurrences starting 10/25/2024 until 11/24/2025 End: 03-06-2023 DXA-AXIAL SKELETON DXA-AXIAL SKELETON Radiology Routine Asymptomatic postmenopausal status 1 Occurrences starting 02/04/2022 until 03/06/2023 [facility] Work Phone: Comment on above: 1 Occurrences starting 02/04/2022 until 03/06/2023 Erythrocyte sedimentation rate SED RATE WESTERGREN Lab Routine Rheumatoid arthritis involving both hands with positive rheumatoid factor (HCC) 11/19/2021 10:36 AM EDT [facility] Work Phone: Erythrocyte sedimentation rate SED RATE WESTERGREN Lab Routine Rheumatoid arthritis involving both hands with positive rheumatoid factor (HCC) 03/31/2022 10:47 AM EST [facility] Work Phone: Erythrocyte sedimentation rate SED RATE WESTERGREN Lab Routine Rheumatoid arthritis involving both hands with positive rheumatoid factor (HCC) 05/20/2022 9:45 AM EDT [facility] Work Phone: Erythrocyte sedimentation rate SED RATE WESTERGREN Lab Routine Rheumatoid arthritis involving both hands with positive rheumatoid factor (HCC) 01/20/2023 10:51 AM EST [facility] Work Phone: Erythrocyte sedimentation rate SEDIMENTATION RATE, WESTERGREN Lab Routine Rheumatoid arthritis involving both hands with positive rheumatoid factor (HCC) 08/09/2024 2:08 PM EDT [facility] Work Phone: Hemoglobin.gastroint glynn nal.lower [Presence] in Stool by Immunoassay IMMUNOCHEMICAL FECAL OCCULT BLOOD TEST Lab Routine Anemia, chronic disease Ordered: 01/20/2024 [facility] Comment on above: Ordered: 01/20/2024 IR PERIPH INSERTED T [place] IR PERIPH INSERTED [place] Radiology Routine Rheumatoid arthritis involving both hands with positive rheumatoid factor (HCC) Ordered: 07/19/2021 [facility] Work Phone: Comment on above: Ordered: 07/19/2021 Patient Education [facility] Work Phone: Patient referral [facility] Work Phone: [facility] Immunizations Immunization Date Immunization Notes Care Provider Robby snowden 01-12-2024 influenza, seasonal, injectable, preservative free Paul Greco MD Work Phone: [facility] 01-12-2024 influenza virus vaccine, unspecified formulation [place] [facility] 01-12-2023 influenza virus vaccine, unspecified formulation Becca Garcia PA-C Work Phone: [facility] 01-13-2022 influenza virus vaccine, unspecified formulation Robert Farias MD Work Phone: [facility] Payers Date Payer Category Payer Unknown [id number] 2024 Self-pay [id number] 2020 Private Health Insurance [facility] [id number] 2020 Unknown [id number]. [id number] 2020 Unknown [id number]. 1.13.159.2. [id number] 2020 Unknown [id number] 1960 Unknown [id number] 2.840.1.085721.3.579.2. 627 Medicaid MEDICAID [id number] Unknown [id number] .840.1.723225.3.579.2. 462 Unknown [id number] 2.840.1.726755.3.579.2. 462 Unknown [id number] 2.16.840.1.686491.3.579.2. 462 Unknown [id number] 2.16.840.1.914246.3.579.2. 462 Unknown [id number] 2.16.840.1.225282.3.579.2. 462 Unknown [id number] 2.16.840.1.248551.3.579.2. 462 Unknown [id number] 2.16.840.1.138101.3.579.2. 462 Unknown [id number] 2.16.840.1.195345.3.579.2. 462 Unknown [id number] 2.16.840.1.860686.3.579.2. 462 Unknown [id number] 2.16.840.1.297910.3.579.2. 462 Unknown [id number] 2.16.840.1.491857.3.579.2. 462 Unknown [id number] 2.16.840.1.356509.3.579.2. 462 Unknown [id number] 2.16.840.1.186241.3.579.2. 462 Unknown [id number] 2.16.840.1.827612.3.579.2. 462 Unknown [id number] 2.16.840.1.269535.3.579.2. 462 Unknown [id number] 2.16.840.1.849484.3.579.2. 462 Unknown [id number] 2.16.840.1.796415.3.579.2. 462 Unknown [id number] 2.16.840.1.788591.3.579.2. 462 Unknown [id number] 2.16.840.1.810224.3.579.2. 462 Unknown [id number] 2.16.840.1.529599.3.579.2. 462 Unknown [id number] 2.16.840.1.788915.3.579.2. 462 Unknown [id number] 2.16.840.1.534094.3.579.2. 462 Unknown [id number] 2.16.840.1.063213.3.579.2. 462 Unknown [id number] 2.16.840.1.854135.3.579.2. 462 Unknown [id number] 2.16.840.1.330093.3.579.2. 462 Unknown [id number] 2.16.840.1.870351.3.579.2. 462 Unknown [id number] 2.16.840.1.451632.3.579.2. 462 Unknown [id number] 2.16.840.1.100071.3.579.2. 462 Unknown [id number] 2.16840.1.858323.3.579.2. 462 Unknown [id number] 2.16840.1.261649.3.579.2. 462 Unknown [id number] 2.16.840.1.193855.3.579.2. 462 Unknown [id number] 2.16.840.1.469136.3.579.2. 462 Unknown [id number] 2.16840.1.947900.3.579.2. 462 Unknown [id number] 2.16840.1.637270.3.579.2. 462 Unknown [id number] 2.16840.1.939211.3.579.2. 462 Unknown [id number] 2.16840.1.914470.3.579.2. 462 Unknown [id number] 2.16840.1.027537.3.579.2. 462 Social History Date Type Detail Facility Start: 06-19-2020 End: 09-29-2023 Tobacco smoking status SDIS Never smoker [facility] Start: 06-19-2020 End: 09-29-2023 Tobacco use and exposure Never used [facility] Start: 06-19-2020 End: 06-14-2024 Alcohol intake Ex-drinker (finding) [facility] Start: 1960 Sex Assigned At Not on file [facility] Start: 06-15-2021 End: 10-22-2021 Exposure to SARS-CoV-2 (event) Not sure [facility] Start: 1960 Sex Assigned At Female [facility] Start: 10-22-2021 End: 07-08-2022 History of Social function [facility] Start: 10-22-2021 End: 07-08-2022 Tobacco use panel [facility] Start: 04-07-2020 National Score (1-10 0), lower number is lower risk 74 [facility] Start: 05-16-2024 End: 05-27-2024 Sex Female (finding) [facility] Medical Equipment Procedure Code Equipment Code Equipment Origin al Text Equipment Identifier Dates [place] [employer] I sp Mri 8fr Implantable Infusion 1 Lumen Attachable - [id number] Start: 09-21-2021 Goals Date Patient Goal Desired Activity /State Functional Status Date Assessment Result Facility 05-27-2024 Functional status Ambulates;Bathroom Priv ilege [facility] Work Phone: Mental Status Date Assessment Result Facility 07-25-2024 Cognitive function Voice/Name [facility] Work Phone: 07-03-2024 [facility] Work Phone: 05-27-2024 Cognitive function Voice/Name [facility] Work Phone: 04-15-2024 Cognitive function Level Of Cons ciousness Sedated [facility] Work Phone: 04-15-2024 Cognitive function Patient Orien tation Person;Place;Time [facility] Work Phone: 03-10-2024 Cognitive function Awake;Alert;A ppropriate;Follo ws Commands [facility] Work Phone: 02-09-2024 Cognitive function Voice/Name [facility] Work Phone: Clinical Notes 06-19-2020 to 11-11-2024 Telephone Encounter - Ashley Bedoya MA - 11/11/2024 11:58 AM EDTTelephone Encounter - Ashley Bedoya MA - 11/11/2024 11:58 AM EDTTelephone Encounter - Balbina Alford - 10/30/2024 2:53 PM EDT Note Date & Type Note Facility 11-11-2024 Telephone encounter Note Pharmacy sent a [employer] message requesting the following refill. Requested Prescriptions Pending Prescriptions Disp Refills hydrOXYchloroQUINE (PLAQUENIL) 200 mg tablet 90 tablet 0 Sig: Take 1 tablet by mouth once daily. tiZANidine (ZANAFLEX) 2 mg tablet 30 tablet 2 Sig: Take 1 tablet by mouth daily at bedtime. Patient last appointment: 10/25/2024 Next Appointment: 02/26/2025 Patient Phone numbers: [phone] (home) Request is for script(s) to be escript to pharmacy. Ashley Bedoya MA [facility] 11-11-2024 Miscellaneous Notes Pharmacy sent a [employer]sRated message requesting the following refill. Requested Prescriptions Pending Prescriptions Disp Refills hydrOXYchloroQUINE (PLAQUENIL) 200 mg tablet 90 tablet 0 Sig: Take 1 tablet by mouth once daily. tiZANidine (ZANAFLEX) 2 mg tablet 30 tablet 2 Sig: Take 1 tablet by mouth daily at bedtime. Patient last appointment: 10/25/2024 Next Appointment: 02/26/2025 Patient Phone numbers: [phone] (home) Request is for script(s) to be escript to pharmacy. Ashley Bedoya MA documented in this encounter [facility] 10-30-2024 Telephone encounter Note Kirill Esquivel - PENDING [id number] [facility]/Portal Balbina Rocío, Multicultural Manager [facility] 10-30-2024 Miscellaneous Notes [place], [place] - PENDING [id number] [facility]/Portal Balbina Alford, Multicultural Manager documented in this encounter [facility] 10-25-2024 Instructions Robert Farias MD - 10/25/2024 7:18 AM EDT BONE MINERAL DENSITY PATIENT INSTRUCTIONS ========= Bone mineral density testing measures the amount [...] usual activities immediately. documented in this encounter [facility] 10-25-2024 Note HNO ID: [id number] Author: ROBERT FARIAS MD Service: ? Author Type: Physician Type: Progress Notes Filed: 11/16/2024 19:28 Note Text: Subjective Jaylin Carroll is a 64 year old female. I am doing good At time headache Attributes to BP MRI done and stroke Plans to see neurology Never had stroke BP controlled BP at home 138/80 No sob No belly pain No side effect with med Gelling but no stiffness No pain in the joint Review of Systems Objective There were no vitals taken for this visit. Physical Exam Constitutional: General: She is not in acute distress. Appearance: She is not ill-appearing or toxic-appearing. Comments: Wrist hand no clear synovitis This is a virtual visit. It required patient provider interaction for the medical decision making as documented below . .I have communicated my name and active licensure. The patient's identity and physical location were verified at the time of this visit. Either the patient or their legal customer development representative has been informed of the risks and benefits of -- and alternatives to -- treatment through a remote evaluation and consents to proceed with the evaluation remotely. Some elements of this note have been copied from my earlier notes, the present note has been updated where appropriate and my reflects my current medical decision making from today. First visit 06/19/2020 ( moved from [place] ) RA and wants treatment for that 06/24 ( Q 4 months )) [place] coronary artery disease cannot use NSAID.. RA ( RF 184, CCP 125 ) age 15 onset 2023 Quantiferon M. 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 Mendes [place] [facility] [place] [facility] : 01/2020 last [...] 01/18/2024, before that nov 09 ) ) (excellent response, tolerating med well, no sign of infection, no sign of tuberculosis ) 10/25 02/24 05/26 08/26 10.04/2906/14/2024 10/25/2024 remission . ( coronary artery disease will not cut back on med as cannot use NSAID ) , concerns for drug induced lupus as ischemic events, check serology. Fu 4 mth PA, I will see in 8 monhst 11/18/2024 labs positive LELO but APS neg, just observe. Drug and disease monitoring 11/2019 wbc 3900 [...] 01/18/24 cmp cr 0.46, .04/12/2024 K 3.5 08/09/24 cmp cbc normal glu 182, Anemia 2023 9.4/30.9 low (( not on NSAID ) (( 01/2024 NSAID stopped as [place] ) (( no GI bleed, stool blood [...] 2018 done )) prevnar 21 done 2024 2024 MRI brain sinus normal coronary artery disease (( 2023 dec :: hospitalized pneumonia 2023, found to have [place] ) ( NSTEMI ) 2023 CTA chest : no PE, left lung base infiltrate 2023 EC (more content not included)... [facility] 10-25-2024 History of Presen t illness Narrative Subjective Jaylin Carroll is a 64 year old female. I am doing good At time headache Attributes to BP MRI done and stroke Plans to see neurology Never had stroke BP controlled BP at home 138/80 No sob No belly pain No side effect with med Gelling but no stiffness No pain in the joint Review of Systems Objective There were no vitals taken for this visit. Physical Exam Constitutional: General: She is not in acute distress. Appearance: She is not ill-appearing or toxic-appearing. Comments: Wrist hand no clear synovitis This is a virtual visit. It required patient provider interaction for the medical decision making as documented below . .I have communicated my name and active licensure. The patient's identity and physical location were verified at the time of this visit. Either the patient or their legal customer development representative has been informed of the risks and benefits of -- and alternatives to -- treatment through a remote evaluation and consents to proceed with the evaluation remotely. Some elements of this note have been copied from my earlier notes, the present note has been updated where appropriate and my reflects my current medical decision making from today. First visit 06/19/2020 ( moved from [place] ) RA and wants treatment for that 06/24 ( Q 4 months )) [place] coronary artery disease cannot use NSAID.. RA [...] 2nd 3 rd MCP ) Dr. Mendes [place] [facility] [place] [facility] : 01/2020 last [...] 01/18/2024, before that nov 09 ) ) (excellent response, tolerating med well, no sign of infection, no sign of tuberculosis ) 10/25 02/24 05/26 08/26 10.04/2906/14/2024 10/25/2024 remission . ( coronary artery disease will not cut back on med as cannot use NSAID ) , concerns for drug induced lupus as ischemic events, check serology. Fu 4 mth PA, I will see in 8 monhst Drug and disease monitoring 11/2019 wbc 3900 [...] 01/18/24 cmp cr 0.46, .04/12/2024 K 3.5 08/09/24 cmp cbc normal glu 182, Anemia 2023 9.4/30.9 low (( not on NSAID ) (( 01/2024 NSAID stopped as [place] ) (( no GI bleed, stool blood [...] 2018 done )) prevnar 21 done 2024 2024 MRI brain sinus normal coronary artery disease (( 2023 :: hospitalized pneumonia 2023, found to have [place] ) ( NSTEMI ) 2023 CTA chest [...] to 50%. TT 02/05/24 cardiology following . Cerebrovascular disease 2024 MRI : Right frontal subcortical patchy area of high T2/FLAIR signal. No perifocal edema or mass effect. Right cerebral chronic ischemic patch. 2023 stool for occult blood neg 2015 [...] BMD is 0.82 g/cm2 -1.6... TT none 10/25/2024 DXA ordered Pain mgt ( pain adv [...] 90 min low impact. 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 ( leukemia age 43 ) 06/24 2 son in [facility] 06/19/2020 Brother 2 healthy 06/19/2020 3 sister healthy 06/19/2020 Mother 58 ( CHF cancer spinal from breast ) 06/19/2020 ( did not smoke ) Father brain aneurysm 67 06/19/2020 ( did smoke) 02/23 COVID cough, sneezing, sore throat, no temp etc . 03/2023 COVID pneumonia and [place] documented in this encounter [facility] 10-22-2024 Telephone encounter Note [facility], [place] - PENDING [id number] [facility] Balbina Alford, Multicultural Manager [facility] 10-22-2024 Miscellaneous Notes [facility], [place] - PENDING [id number] [facility] Balbina Alford Multicultural Manager documented in this encounter [facility] 10-07-2024 Telephone encounter Note Pharmacy sent a RealRidert message requesting the following refill. Requested Prescriptions Pending Prescriptions Disp Refills folic acid 1 mg tablet 90 tablet 1 Sig: Take 1 tablet by mouth once daily. Patient last appointment: 06/14/2024 Next Appointment: 10/25/2024 Patient Phone numbers: [phone] (home) Request is for script(s) to be escript to pharmacy. Ashley Bedoya MA [facility] 10-07-2024 Miscellaneous Notes Pharmacy sent a RootsRated message requesting the following refill. Requested Prescriptions Pending Prescriptions Disp Refills folic acid 1 mg tablet 90 tablet 1 Sig: Take 1 tablet by mouth once daily. Patient last appointment: 06/14/2024 Next Appointment: 10/25/2024 Patient Phone numbers: [phone] (home) Request is for script(s) to be escript to pharmacy. Ashley Bedoya MA documented in this encounter [facility] 08-14-2024 Telephone encounter Note Patient sent a MyChart message requesting the following refill. Requested Prescriptions Pending Prescriptions Disp Refills tiZANidine (ZANAFLEX) 2 mg tablet 30 tablet 2 Sig: Take 1 tablet by mouth daily at bedtime. Patient last appointment: 06/14/2024 Next Appointment: 10/25/2024 Patient Phone numbers: [phone] (home) Request is for script(s) to be escript to pharmacy. Ann Marie Frank MA [facility] 08-14-2024 Miscellaneous Notes Patient sent a MyChart message requesting the following refill. Requested Prescriptions Pending Prescriptions Disp Refills tiZANidine (ZANAFLEX) 2 mg tablet 30 tablet 2 Sig: Take 1 tablet by mouth daily at bedtime. Patient last appointment: 06/14/2024 Next Appointment: 10/25/2024 Patient Phone numbers: [phone] (home) Request is for script(s) to be escript to pharmacy. Ann Marie Frank MA documented in this encounter [facility] 08-14-2024 Telephone encounter Note Patient sent a [email or web address] message requesting the following refill. On patient's medication list: Sig: take 6 tablets by mouth once every week Requested Prescriptions Pending Prescriptions Disp Refills methotrexate 2.5 mg tablet 72 tablet 1 Patient last appointment: 06/14/2024 Next Appointment: 10/25/24 Patient Phone numbers: [phone] (home) Request is for script(s) to be escript to pharmacy. Ann Marie Frank MA [facility] 08-14-2024 Miscellaneous Notes Patient sent a MyChart message requesting the following refill. On patient's medication list: Sig: take 6 tablets by mouth once every week Requested Prescriptions Pending Prescriptions Disp Refills methotrexate 2.5 mg tablet 72 tablet 1 Patient last appointment: 06/14/2024 Next Appointment: 10/25/24 Patient Phone numbers: [phone] (home) Request is for script(s) to be escript to pharmacy. Ann Marie Frank MA documented in this encounter [facility] 08-12-2024 Note Addended by: ROBERT FARIAS on: 08/12/2024 07:36 PM Modules accepted: Orders [facility] 08-12-2024 Miscellaneous Notes Addended by: ROBERT FARIAS on: 08/12/2024 07:36 PM Modules accepted: Orders Ordered Robert Farias MD Isale from [facility] lab states the TB test will need reordered. The lab did draw the specimen but the tubes were under filled. Brynn Fofana LPN documented in this encounter [facility] 08-12-2024 Telephone encounter Note Ordered Robert Farias MD [facility] 08-12-2024 Telephone encounter Note Isael from [facility] lab states the TB test will need reordered. The lab did draw the specimen but the tubes were under filled. Brynn Fofana LPN [facility] 08-09-2024 Note HNO ID: [id number] Author: RYAN VASQUEZ RN Service: ? Author Type: Registered Nurse Type: Progress Notes Filed: 08/09/2024 15:27 Note Text: 14:27 Pt getting inflectra infusion and c/o vertigo and headache. She states it is not from the inflectra and has had 3 other similar episodes recently with ER visits. Pt states "they are not able to find anything wrong and this is so weird". Pt BP elevated 160/80 and then 5 min later 140/80. HR remained in the 70's. Pt stated after about 3-5 minutes she was starting to feel better but now had tingling in feet. Pt A/O x 4 with brother (cart driver) present. She states she has started to monitor herself at home. She has upcoming MRI scheduled and is anxious to see what it shows. 15:07 Pt states she is having another "episode". RN suggests pt needs to get checked out in ER and she declines. Pt discharged from infusion center. Pts brother is driving her to his home tonight since she does not feel it would be helpful to be seen in ER. Pt states she is going to call her career technical education teacher and PCP. [facility] 08-09-2024 History of Presen t illness Narrative 14:27 Pt getting inflectra infusion and c/o vertigo and headache. She states it is not from the inflectra and has had 3 other similar episodes recently with ER visits. Pt states "they are not able to find anything wrong and this is so weird". Pt BP elevated 160/80 and then 5 min later 140/80. HR remained in the 70's. Pt stated after about 3-5 minutes she was starting to feel better but now had tingling in feet. Pt A/O x 4 with brother (cart driver) present. She states she has started to monitor herself at home. She has upcoming MRI scheduled and is anxious to see what it shows. 15:07 Pt states she is having another "episode". RN suggests pt needs to get checked out in ER and she declines. Pt discharged from infusion center. Pts brother is driving her to his home tonight since she does not feel it would be helpful to be seen in ER. Pt states she is going to call her career technical education teacher and PCP. documented in this encounter [facility] 07-30-2024 Evaluation note Diagnosis Onset Date Resolution Hypertension chronic July 30 8:18am Hypertension chronic October 29, 2024 8:11am [facility] Work Phone: [phone] Telephone encounter Note* Telephone Encounter - Balbina Alford - 07/18/2024 12:14 PM EDT Yue Contrerasw - PENDING [id number] [employer]Portal Balbina Alford Multicultural Manager [facility]05-15-2025 Miscellaneous Notes* Telephone Encounter - Balbina Alford - 07/18/2024 12:14 PM EDT Yue Contrerasw - PENDING [id number] [employer] Balbina Alford Multicultural Manager [facility] Telephone encounter Note * Telephone Encounter - Brynn Fofana LPN - 07/09/2024 10:11 AM EDT Pharmacy faxed requesting the following refill Refill(s) Requested: Requested Prescriptions Pending Prescriptions Disp Refills hydrOXYchloroQUINE (PLAQUENIL) 200 mg tablet [Pharmacy Med Name: HYDROXYCHLOROQUINE 200 MG TAB] 90 tablet 0 Sig: take 1 tablet by mouth once daily ALLERGIES Allergen Reactions Demerol [Meperidine] Other: See Comments Lowered blood pressure extremely low Sulfa (Sulfonamide * GI Upset Stomach pain severe (home) [phone] (cell) Last Office Visit Date: 06/14/2024 Last [facility] Visit: Visit date not found Future Appointment: Visit date not found The patients preferred pharmacy has been captured for this encounter? yes Request is for script(s) to be escript to pharmacy. Brynn Fofana LPN [facility]05-06-2025 Miscellaneous Notes* Telephone Encounter - Brynn Fofana LPN - 07/09/2024 10:11 AM EDT Pharmacy faxed requesting the following refill Refill(s) Requested: Requested Prescriptions Pending Prescriptions Disp Refills hydrOXYchloroQUINE (PLAQUENIL) 200 mg tablet [Pharmacy Med Name: HYDROXYCHLOROQUINE 200 MG TAB] 90 tablet 0 Sig: take 1 tablet by mouth once daily ALLERGIES Allergen Reactions Demerol [Meperidine] Other: See Comments Lowered blood pressure extremely low Sulfa (Sulfonamide * GI Upset Stomach pain severe (home) [phone] (cell) Last Office Visit Date: 06/14/2024 Last [facility] Visit: Visit date not found Future Appointment: Visit date not found The patients preferred pharmacy has been captured for this encounter? yes Request is for script(s) to be escript to pharmacy. Brynn Fofana LPN documented in [facility]04-11-2025 Instructions* Patient Instructions* Robert Farias MD - 06/14/2024 2:47 PM EDT BONE MINERAL DENSITY PATIENT INSTRUCTIONS Bone mineral [...] your usual activities immediately. documented in this encounterA[facility]04-11-2025 NoteHNO ID: [id number] Author: ROBERT FARIAS MD Service: ? Author Type: Physician Type: Progress Notes Filed: 06/14/2024 17:16 Note Text: This note was created using Amcom Softwareriter. Subjective Jaylin Carroll is a 63 year [...] ?C (98.2 ?F) Ht 154.9 cm (5' 1") Wt 81.9 kg (180 lb 9.6 oz) [...] Plan First visit 06/19/2020 ( moved from [place] ) RA and wants treatment for that 06/24 ( Q 4 months )) [place] coronary artery disease cannot use NSAID.. RA [...] 2nd 3 rd MCP ) Dr. Mendes [place] [facility] [place] [facility] : 01/2020 last [...] cr 0.46, .04/12/2024 K 3.5 Anemia 2023 9.07/03.9 low (( not on NSAID ) (( 01/2024 NSAID stopped as [place] ) (( no GI bleed, stool blood [...] 2024 coronary artery d (more content not included)...[facility] 06-14-2024 History of Present illness Narrative* Robert Farisa MD - 06/14/2024 2:46 PM EDT This note was created using Amcom Softwareriter. Subjective Jaylin Carroll is a 63 year [...] C (98.2 F) Ht 154.9 cm (5' 1") Wt 81.9 kg (180 lb 9.6 oz) [...] Plan First visit 06/19/2020 ( moved from [place] ) RA and wants treatment for that 06/24 ( Q 4 months )) [place] coronary artery disease cannot use NSAID.. RA [...] 2nd 3 rd MCP ) Dr. Mendes [place] [facility] [place] [facility] : 01/2020 last [...] NSAID ) (( 01/2024 NSAID stopped as [place] ) (( no GI bleed, stool blood [...] done 2024 coronary artery disease (( 2023 dec :: hospitalized pneumonia 2023, found to have [place] ) ( NSTEMI ) 2023 CTA chest [...] neck BMD is0.82 g/cm2 -1.6... TT none 06/14/2024 DXA ordered [...] 90 min low impact. 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 ( leukemia age 43 ) 06/24 2 son in [facility] 06/19/2020 Brother 2 healthy 06/19/2020 3 sister healthy 06/19/2020 Mother 58 ( CHF cancer spinal from breast ) 06/19/2020 ( did not smoke ) Father brain aneurysm 67 06/19/2020 ( did smoke) 02/23 COVID cough, sneezing, sore throat, no temp etc . 03/2023 COVID pneumonia and [place] [facility] Telephone encounter Note * Telephone Encounter - Balbina Alford - 05/28/2024 10:09 AM EDT Ben, [place] - PENDING [id number] [facility] Portal Balbina Alford, Multicultural Manager [facility]03-25-2025 Miscellaneous Notes* Telephone Encounter - Balbina Alford - 05/28/2024 10:09 AM EDT Ben, [place] - PENDING [id number] [facility] Portal Balbina Alford, Multicultural Manager documented in this encounterA[facility]03-24-2025 Discharge summary [facility] Medical Records Department [address] [place] [address] Discharge Summary 05/27/24 1506 MR#: [id number] Acct: [id number] Name: JAYLIN CARROLL Rep #:[id number] : 1960 63 From: Isael Baeza DO PCP: Dr. Paul Greco MD Status:ADM IN Location: [place] [id number]- Providers Date of Admission: 05/27/24 Date of [...] puff inhalation Q4H PRN shortness of breath orwheezing #8.5 grams 01/13/24 atorvastatin 80 mg tablet [...] outside hospital initially on 05/26/2024 with onset ofchest discomfort which was described as an ache, and nonradiating. Patient was directly transferredto PCU as an observation patient, cardiac enzymes remained elevated but there were at approximatelythe same level. Patient had reproducible pain on examination when she was admitted to PCU. Magnesium at the outside emergency room was low at 1.5 troponin was 81. EKG showed a sinus tachycardia without evidence of ischemia. Patient was placed in observation status on PCU and observed, she underwenta resting nuclear stress test which was negative for reversible ischemia. On 05/27/2024, patient wasseen and examined: On examination she appeared in good health and spirits, she does not appear to be in any distress. Vital signs as documented. Skin warm and dry and without overt rashes. Neck without JVD, thyroid appears normal, trachea is midline, neck is supple. Lungs clear, normal air movementwasnoted. Heart exam notable for regular rhythm, normal sounds and absence of murmurs, rubs or garces ps. Abdomen unremarkable and without evidence of organomegaly, [...] MCH 26.1 L, MCHC 31.5 L, RDW StdDeviation 57.8 H, RDW Coeff of Jeison 19.5 H, Plt Count 183, MPV 10.3, Immature Gran % (Auto) 0.300, Neut % (Auto) 50.1, Lymph % (Auto) 35.2,Sampson % (Auto) 10.7 H, Eos % (Auto) 3.4, Baso % (Auto) 0.3, Absolute Neuts (auto)3.6, Absolute Lymphs (auto) 2.50, Nucleated RBC % 0, Sodium 139, Potassium 3.9, Chloride 104, Carbon Dioxide 23.1, Anion Gap 12, BUN 16, Creatinine 0.71, Estim Creat Clear Calc 79.78, Est GFR (MDRD) Non-Af 96, BUN/Creatinine Ratio 21.9 H, Glucose 196 H, Calcium 9.1, Magnesium 2.1,Total Bilirubin 0.25, AST 19, ALT 20, Alkaline Phosphatase 79, Troponin T Hi Sens 4Hr < 6, TotalProtein 6.3, Albumin 4.1, Globulin 2.1 L, Albumin/Globulin [...] Self Care Charges/Coding Visit Charges Inpatient E&M: 61821 Disch Hosp 05/27/24 1512 Cosigner Signature (if applicable): CC: Dr. Paul Greco MD; Dr. Isael Baeza, DO~ Signed [facility]03-24-2025 Consult note [facility] Medical Records Department [address] [place] [address] Counseling Note - Pharmacy 05/27/24 1511 MR#: [id number] Acct: [id number] Name: JAYLIN CARROLL Rep #:[id number] : 1960 63 From: Kat Traylor PCP: Dr. Paul Greco MD Status:ADM IN Y Location: [place] [address] Pharmacy [place] Med Reconciliation Pharmacy Service has performed discharge [...] puff inhalation Q4H PRN shortness of breath orwheezing #8.5 grams 01/13/24 atorvastatin 80 mg tablet [...] PO QDAY #60 tabs 04/30/24 05/27/24 1511 Date _ Kat Reese Signature (if applicable): Date CC: ~ Signed [facility]03-24-2025 Discharge summary [facility] Medical Records Department [address] [place] [address] Instructions for Home/Discharge Instructions 05/27/24 1503 MR#: [id number] Acct: [id number] Name: JAYLIN CARROLL Rep #:[id number] : 1960 63 From: Isael Baeza DO [...] can be placed): Home, Self Care 05/27/24 1506Mark Felisha SHETH CC: Dr. Natalie Gaspar MD; Dr. Paul Greco MD ~ Signed [facility]03-24-2025 [facility]03-24-2025 History and physical note Author Natalie White [facility] Note Date/Time May 27, 2024 3:2 8am [facility] Medical Records Department [address] [place] [address] H&P Exam - Hospitalist 05/27/247 MR#: [id number] Acct: [id number] Name: JAYLIN CARROLL Rep #:[id number] : 1960 63 From: Natalie Gaspar MD PCP: Dr. Paul Greco MD Status:ADM IN O Location: [facility] QUF140- 1 HPI - General General Date of [...] future capsule endoscopy. Patient presented to the [facility] ED [facility] initially on 05/26/2024 secondary to history [...] at baseline. Upon transfer and evaluation at [facility] upon arrival patient does have reproducible [...] 1, magnesium 2 g IV x 1. [facility] Medical History Wears partial dentures [...] to 50% who now presents to the [facility] as a direct admission on 05/27/24 with initiall presentation to the OS ED [facility] initially on 05/26/2024secondary to history of [...] at outside facility however initial obtained at [facility] 7 thus unclear if these were [...] Code status. Charges/Coding Visit Charges Inpatient E&M: 61470 Init Hosp L3 05/27/24 0328 <Electronically signed by Natalie Gaspar MD> Cosigner Signature (if applicable): CC: Dr. Natalie Gaspar MD; Dr. Paul Greco MD~ Signed [facility] Work Phone: 1(802) 198-271903-24-2025 History and physical note [facility] Medical Records Department [address] [facility] [place] [address] H&P Exam - Hospitalist 05/27/24226 MR#: [id number] Acct: [id number] Name: JAYLIN CARROLL Rep #:[id number] : 1960 63 From: Natalie Gaspar MD PCP: Dr. Paul Greco MD Status:ADM IN O Location: [place] [address] HPI - General General Date of Admission: [...] any dyspnea or diaphoresis to the outside [facility] ED. EMS administered full-strength aspirin [...] at baseline. Upon transfer and evaluation at [facility] upon arrival patient does have reproducible [...] brain with no acute intracranial findings, chest x- ray with no acute cardiopulmonary findings with a right IJV tunneled catheter port tip projecting over the right atrium, EKG withsinus tachycardia with no acute evidence of ischemia. In the outside ED patient was administered morphine 4 mg IV x 1, Zofran 4 mg IV x 1, magnesium 2 g IV x 1. [facility] Medical History Wears partial dentures [...] to 50% who now presents to the [facility] as a direct admission on 05/27/24 with initiall presentation to the OS ED [facility] initially on 05/26/2024secondary to history of [...] at outside facility however initial obtained at [facility] 7 thus unclear if these were [...] Code status. Charges/Coding Visit Charges Inpatient E&M: 57738 Init Hosp L3 05/27/24 0328 Cosigner Signature (if applicable): CC: Dr. Natalie Gaspar MD; Dr. Paul Greco MD~ Signed [facility]02-25-2025 Evaluation note* Diagnosis Onset Date Resolution Status Admit Date Anemia acute April 30, 2024 7:58am Chest pain inactive May 27 1:28am Anemia acute May 29 7:45am Hypertension chronic May 31, 2024 9:02am Chest pain inactive May 31 9:02am Hypertension chronic July 30 8:18am [facility] Work Phone: 1(119) 941-931402-10-2025 Evaluation note* Diagnosis Onset Date Resolution Status Admit Date Anemia acute April 15, 2024 10:42am Anemia acute April 30, 2024 7:58am Chest pain inactive May 27 1:28am Anemia acute May 29 7:45am Hypertension chronic May 31, 2024 9:02am Chest pain inactive May 31 9:02am Hypertension chronic July 30 8:18am [facility] Work Phone: 1(556) 586-449802-10-2025 [facility]02-05-2025 Telephone encounter Note* Telephone Encounter - Ashley Bedoya MA - 04/10/2024 2:15 PM EST Pharmacy sent a RootsRated message requesting the following refill. Requested Prescriptions Pending Prescriptions Disp Refills hydrOXYchloroQUINE (PLAQUENIL) 200 mg tablet [Pharmacy Med Name: HYDROXYCHLOROQUINE 200 MG TAB] 90 tablet 0 Sig: take 1 tablet by mouth once daily Patient last appointment: 02/05/2024 Next Appointment: 06/14/2024 Patient Phone numbers: [phone] (home) Request is for script(s) to be escript to pharmacy. Ashley Bedoya MA [facility]02-05-2025 Miscellaneous Notes* Telephone Encounter - Ashley Bedoya MA - 04/10/2024 2:15 PM EST Pharmacy sent a RootsRated message requesting the following refill. Requested Prescriptions Pending Prescriptions Disp Refills hydrOXYchloroQUINE (PLAQUENIL) 200 mg tablet [Pharmacy Med Name: HYDROXYCHLOROQUINE 200 MG TAB] 90 tablet 0 Sig: take 1 tablet by mouth once daily Patient last appointment: 02/05/2024 Next Appointment: 06/14/2024 Patient Phone numbers: [phone] (home) Request is for script(s) to be escript to pharmacy. Ashley Bedoya MA documented in this encounterAcmc Healthcare System02-03-2025 Telephone encounter Note * Telephone Encounter - Ashley Bedoya MA - 04/08/2024 8:10 AM EST Ignore, already approved. [facility]02-03-2025 Miscellaneous Notes* Telephone Encounter - Ashley Bedoya MA - 04/08/2024 8:10 AM EST Ignore, already approved. documented in this encounterAcmc Healthcare System02-03-2025 Telephone encounter Note * Telephone Encounter - Ashley Bedoya MA - 04/08/2024 8:09 AM EST Pharmacy sent a RootsRated message requesting the following refill. Requested Prescriptions Pending Prescriptions Disp Refills tiZANidine (ZANAFLEX) 2 mg tablet 30 tablet 2 Sig: Take 1 tablet by mouth daily at bedtime. Patient last appointment: 02/05/2024 Next Appointment: 06/14/2024 Patient Phone numbers: [phone] (home) Request is for script(s) to be escript to pharmacy. Ashley Bedoya MA [facility]02-03-2025 Miscellaneous Notes* Telephone Encounter - Ashley Bedoya MA - 04/08/2024 8:09 AM EST Pharmacy sent a RealRidert message requesting the following refill. Requested Prescriptions Pending Prescriptions Disp Refills tiZANidine (ZANAFLEX) 2 mg tablet 30 tablet 2 Sig: Take 1 tablet by mouth daily at bedtime. Patient last appointment: 02/05/2024 Next Appointment: 06/14/2024 Patient Phone numbers: [phone] (home) Request is for script(s) to be escript to pharmacy. Ashley Bedoya MA documented in this encounterAcmc Healthcare System01-27-2025 Telephone encounter Note * Telephone Encounter - Ashley Bedoya MA - 04/01/2024 9:08 AM EST Pharmacy sent a RootsRated message requesting the following refill. Requested Prescriptions Pending Prescriptions Disp Refills folic acid 1 mg tablet [Pharmacy Med Name: FOLIC ACID 1 MG TABLET] 90 tablet 1 Sig: take 1 tablet by mouth once daily Patient last appointment: 02/05/2024 Next Appointment: 06/14/2024 Patient Phone numbers: [phone] (home) Request is for script(s) to be escript to pharmacy. Ashley Bedoya MA [facility]01-27-2025 Miscellaneous Notes* Telephone Encounter - Ashley Bedoya MA - 04/01/2024 9:08 AM EST Pharmacy sent a RootsRated message requesting the following refill. Requested Prescriptions Pending Prescriptions Disp Refills folic acid 1 mg tablet [Pharmacy Med Name: FOLIC ACID 1 MG TABLET] 90 tablet 1 Sig: take 1 tablet by mouth once daily Patient last appointment: 02/05/2024 Next Appointment: 06/14/2024 Patient Phone numbers: [phone] (home) Request is for script(s) to be escript to pharmacy. Ashley Bedoya MA documented in this encounterAcmc Healthcare System12-03-2024 Evaluation note* Diagnosis Onset Date Resolution Status Admit Date Anemia acute February 06, 2024 9:25am Anemia acute February 26, 2024 9:09am Hypertension chronic February 9:09am NSTEMI, initial episode of care resolved February 25, 2 024 9:09am Anemia acute April 15, 2024 10:42am Anemia acute April 30, 2024 7:58am [facility] Work Phone: 1(856) 788-207212-03-2024 Evaluation note* Diagnosis Onset Date Resolution Status Admit Date Anemia acute February 06, 2024 9:25am Anemia acute February 26, 2024 9:09am Hypertension chronic February 9:09am NSTEMI, initial episode of care resolved February 25, 2 024 9:09am Anemia acute April 15, 2024 10:42am Anemia acute April 30, 2024 7:58am Chest pain acute May 27 1:28am [facility] Work Phone: 1(487) 932-553712-02-2024 NoteHNO ID: [id number] Author: ROBERT FARIAS MD Service: ? Author Type: Physician Type: Progress Notes Filed: 04/13/2024 12:51 Note Text: This note was created using NoteWriter. Subjective Jaylin Carroll is a 63 year old female. [place] (( was sick with pneumonia and was [...] Plan First visit 06/19/2020 ( moved from [place] ) RA and wants treatment for that 06/24 ( Q 4 months )) [place] coronary artery disease cannot use NSAID RA [...] 2nd 3 rd MCP ) Dr. Mendes [place] [facility] [place] [facility] : 01/2020 last [...] 01/18/2024, before that nov 09 ) ) 802/24 10.23 04/29 09/26 remission . Hira pending, ( working mon to Monday 5 [...] cr 0.46, .04/12/2024 K 3.5 Anemia 2023 9.430.9 low (( not on NSAID ) (( 01/2024 NSAID stopped as [place] ) (( no GI bleed, stool blood [...] :: hospitalized pneumonia 2023, found to have [place] ) ( NSTEMI ) 2023 CTA chest [...] last 2023 cologuard neg (more content not included)...[facility] 02-05-2024 History of Present illness Narrative* Robert Farias MD - 02/05/2024 9:18 AM EST This note was created using NoteWriter. Subjective Jaylin Carroll is a 63 year old female. [place] (( was sick with pneumonia and was [...] Plan First visit 06/19/2020 ( moved from [place] ) RA and wants treatment for that 06/24 ( Q 4 months )) [place] coronary artery disease cannot use NSAID RA [...] NSAID ) (( 01/2024 NSAID stopped as [place] ) (( no GI bleed, stool blood [...] :: hospitalized pneumonia 2023, found to have [place] ) ( NSTEMI ) 2023 CTA chest [...] 90 min low impact. 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 ( leukemia age 43 ) 06/24 2 son in [facility] 06/19/2020 Brother 2 healthy 06/19/2020 [...] visit. Either the patient or their legal customer development representative has been informed of the risks and benefits of -- and alternatives to -- treatment through a remote evaluation and consents to proceed with the evaluation remotely. I spent a total of 30 minutes on the date of the service which included [id number] patient care. documented in this encounterAcmc Healthcare System11-18-2024 Telephone encounter Note * Telephone Encounter - Ashley Bedoya MA - 01/22/2024 10:26 AM EST Pharmacy sent a RootsRated message requesting the following refill. Requested Prescriptions Pending Prescriptions Disp Refills tiZANidine (ZANAFLEX) 2 mg tablet [Pharmacy Med Name: TIZANIDINE HCL 2 MG TABLET] 60 tablet 2 Sig: TAKE 1 TO 3 TABLETS BY MOUTH AT BEDTIME IF NEEDED Patient last appointment: 09/29/2023 Next Appointment: 02/05/2024 Patient Phone numbers: [phone] (home) Request is for script(s) to be escript to pharmacy. Ashley Bedoya MA [facility]11-18-2024 Miscellaneous Notes* Telephone Encounter - Ashley Bedoya MA - 01/22/2024 10:26 AM EST Pharmacy sent a RootsRated message requesting the following refill. Requested Prescriptions Pending Prescriptions Disp Refills tiZANidine (ZANAFLEX) 2 mg tablet [Pharmacy Med Name: TIZANIDINE HCL 2 MG TABLET] 60 tablet 2 Sig: TAKE 1 TO 3 TABLETS BY MOUTH AT BEDTIME IF NEEDED Patient last appointment: 09/29/2023 Next Appointment: 02/05/2024 Patient Phone numbers: [phone] (home) Request is for script(s) to be escript to pharmacy. Ashley Bedoya MA documented in this encounterAcmc Healthcare System11-18-2024 Telephone encounter Note * Telephone Encounter - Brynn Fofana LPN - 01/22/2024 9:14 AM EST Pt was discharged on Monday after a two day stay at [facility] diagnosed with pneumonia andMI (NSTEMI). Discharge summary in Epic (care everywhere). Pt had a heart cath done without intervention but was started on plavix. ABX tx has been completed and pt also was diagnosed with anemia and started on oral iron. Pt is to follow up with GI and that appointment will be made with a provider in the [place] area. Pt reports that the stool for OB was negative in the hospital. Pt would prefer to follow up with GI and not do the additional blood work as ordered by Dr.Singh neri has many post admission follow ups scheduled. Brynn Fofana LPN [facility]11-18-2024 Miscellaneous Notes* Telephone Encounter - Brynn Fofana LPN - 01/22/2024 9:14 AM EST Pt was discharged on Monday after a two day stay at [facility] diagnosed with pneumonia andMI (NSTEMI). Discharge summary in Epic (care everywhere). Pt had a heart cath done without intervention but was started on plavix. ABX tx has been completed and pt also was diagnosed with anemia and started on oral iron. Pt is to follow up with GI and that appointment will be made with a provider in the [place] area. Pt reports that the stool for [...] test Robert Farias MD documented in this encounterAcmc Healthcare System11-16-2024 Telephone encounter Note * Telephone Encounter - Robert Farias MD - 01/20/2024 2:57 PM EST Please let her know labs show anemia Get test done ordered Also stool test Robert Farias MD [facility]11-09-2024 [facility]11-07-2024 Telephone encounter Note* Telephone Encounter - Ashley Bedoya MA - 01/11/2024 1:12 PM EST Pharmacy sent a MyChart message requesting the following refill. Requested Prescriptions Pending Prescriptions Disp Refills hydrOXYchloroQUINE (PLAQUENIL) 200 mg tablet [Pharmacy Med Name: HYDROXYCHLOROQUINE 200 MG TAB] 90 tablet 0 Sig: take 1 tablet by mouth once daily Patient last appointment: 09/29/2023 Next Appointment: 02/05/2024 Patient Phone numbers: [phone] (home) Request is for script(s) to be escript to pharmacy. Ashley Bedoya MA [facility]11-07-2024 Miscellaneous Notes* Telephone Encounter - Ashley Bedoya MA - 01/11/2024 1:12 PM EST Pharmacy sent a RootsRated message requesting the following refill. Requested Prescriptions Pending Prescriptions Disp Refills hydrOXYchloroQUINE (PLAQUENIL) 200 mg tablet [Pharmacy Med Name: HYDROXYCHLOROQUINE 200 MG TAB] 90 tablet 0 Sig: take 1 tablet by mouth once daily Patient last appointment: 09/29/2023 Next Appointment: 02/05/2024 Patient Phone numbers: [phone] (home) Request is for script(s) to be escript to pharmacy. Ashley Bedoya MA documented in this encounterAcmc Healthcare System09-17-2024 Telephone encounter Note * Telephone Encounter - Ashley Bedoya MA - 11/21/2023 9:10 AM EDT Patient sent a RootsRated message requesting the following refill. Requested Prescriptions Pending Prescriptions Disp Refills tiZANidine (ZANAFLEX) 2 mg tablet 60 tablet 2 Sig: take 1 to 3 tablets by mouth at bedtime if needed Patient last appointment: 09/29/2023 Next Appointment: 02/05/2024 Patient Phone numbers: [phone] (home) Request is for script(s) to be escript to pharmacy. Ashley Bedoya MA [facility]09-17-2024 Miscellaneous Notes* Telephone Encounter - Ashley Bedoya MA - 11/21/2023 9:10 AM EDT Patient sent a MyChart message requesting the following refill. Requested Prescriptions Pending Prescriptions Disp Refills tiZANidine (ZANAFLEX) 2 mg tablet 60 tablet 2 Sig: take 1 to 3 tablets by mouth at bedtime if needed Patient last appointment: 09/29/2023 Next Appointment: 02/05/2024 Patient Phone numbers: [phone] (home) Request is for script(s) to be escript to pharmacy. Ashley Bedoya MA documented in this encounterAcmc Healthcare System09-17-2024 Telephone encounter Note * Telephone Encounter - Ashley Bedoya MA - 11/21/2023 9:09 AM EDT Patient sent a RealRidert message requesting the following refill. Requested Prescriptions Pending Prescriptions Disp Refills methotrexate 2.5 mg tablet 96 tablet 0 Sig: Take 8 tablets by mouth one time a week. Patient last appointment: 09/29/2023 Next Appointment: 11/20/2023 Patient Phone numbers: [phone] (home) Request is for script(s) to be escript to pharmacy. Ashley Bedoya MA [facility]09-17-2024 Miscellaneous Notes* Telephone Encounter - Ashley Bedoya MA - 11/21/2023 9:09 AM EDT Patient sent a Stigni.bghart message requesting the following refill. Requested Prescriptions Pending Prescriptions Disp Refills methotrexate 2.5 mg tablet 96 tablet 0 Sig: Take 8 tablets by mouth one time a week. Patient last appointment: 09/29/2023 Next Appointment: 11/20/2023 Patient Phone numbers: [phone] (home) Request is for script(s) to be escript to pharmacy. Ashley Bedoya MA documented in this encounterAcmc Healthcare System08-29-2024 Telephone encounter Note * Telephone Encounter - Ashley Bedoya MA - 11/02/2023 8:22 AM EDT Patient sent a MyChart message requesting the following refill. Requested Prescriptions Pending Prescriptions Disp Refills naproxen (NAPROSYN) 500 mg tablet 180 tablet 0 Sig: Take 1 tablet by mouth two times a day with meals. Patient last appointment: 09/29/2023 Next Appointment: 02/05/2024 Patient Phone numbers: [phone] (home) Request is for script(s) to be escript to pharmacy. Ashley Bedoya MA [facility]08-29[facility] Miscellaneous Notes* Telephone Encounter - Ashley Bedoya MA - 11/02/2023 8:22 AM EDT Patient sent a Stigni.bghart message requesting the following refill. Requested Prescriptions Pending Prescriptions Disp Refills naproxen (NAPROSYN) 500 mg tablet 180 tablet 0 Sig: Take 1 tablet by mouth two times a day with meals. Patient last appointment: 09/29/2023 Next Appointment: 02/05/2024 Patient Phone numbers: [phone] (home) Request is for script(s) to be escript to pharmacy. Ashley Bedoya MA documented in this encounterAcmc Healthcare System08-12-2024 Telephone encounter Note * Telephone Encounter - Ashley Bedoya MA - 10/16/2023 7:56 AM EDT Pharmacy sent a Stigni.bghart message requesting the following refill. Requested Prescriptions Pending Prescriptions Disp Refills hydrOXYchloroQUINE (PLAQUENIL) 200 mg tablet [Pharmacy Med Name: HYDROXYCHLOROQUINE 200 MG TAB] 90 tablet 0 Sig: take 1 tablet by mouth once daily Patient last appointment: 09/29/2023 Next Appointment: 02/05/2024 Patient Phone numbers: [phone] (home) Request is for script(s) to be escript to pharmacy. Ashley Bedoya MA [facility]08-12-2024 Miscellaneous Notes* Telephone Encounter - Ashley Bedoya MA - 10/16/2023 7:56 AM EDT Pharmacy sent a RealRidert message requesting the following refill. Requested Prescriptions Pending Prescriptions Disp Refills hydrOXYchloroQUINE (PLAQUENIL) 200 mg tablet [Pharmacy Med Name: HYDROXYCHLOROQUINE 200 MG TAB] 90 tablet 0 Sig: take 1 tablet by mouth once daily Patient last appointment: 09/29/2023 Next Appointment: 02/05/2024 Patient Phone numbers: [phone] (home) Request is for script(s) to be escript to pharmacy. Ashley Bedoya MA documented in this encounterAcmc Healthcare System08-09-2024 Telephone encounter Note * Telephone Encounter - Ashley Bedoya MA - 10/13/2023 1:04 PM EDT Pharmacy sent a RootsRated message requesting the following refill. Requested Prescriptions Pending Prescriptions Disp Refills folic acid 1 mg tablet 90 tablet 1 Sig: Take 1 tablet by mouth once daily. Patient last appointment: 09/29/2023 Next Appointment: 02/05/2024 Patient Phone numbers: [phone] (home) Request is for script(s) to be escript to pharmacy. Ashley Bedoya MA [facility]08-09-2024 Miscellaneous Notes* Telephone Encounter - Ashley Bedoya MA - 10/13/2023 1:04 PM EDT Pharmacy sent a RootsRated message requesting the following refill. Requested Prescriptions Pending Prescriptions Disp Refills folic acid 1 mg tablet 90 tablet 1 Sig: Take 1 tablet by mouth once daily. Patient last appointment: 09/29/2023 Next Appointment: 02/05/2024 Patient Phone numbers: [phone] (home) Request is for script(s) to be escript to pharmacy. Ashley Bedoya MA documented in this encounterAcmc Healthcare System07-26-2024 History of Present illness Narrative* Robert Farias MD - 09/29/2023 2:45 PM EDT This note was created using Amcom Softwareriter. Subjective Jaylin Carroll is a 63 year old female. I am good Back "tweaked " 2 week ago Was in [facility] Not sure what happened Then [address] worse Given diff muscle relaxer and now scan tolerate Yesterday was not able to move Flared back up No pain else Naproxen bid all the time Review of Systems Objective BP 173/83 (BP Site: Left Arm, BP Position: Sitting) Pulse 105 Temp 36.8 C (98.2 F) Ht 154.9 cm (5' 1") Wt 85 kg (187 lb 4.8 oz) [...] Plan First visit 06/19/2020 ( moved from [place] ) RA and wants treatment for that [...] 2nd 3 rd MCP ) Dr. Mendes [place] [facility] [place] [facility] : 01/2020 last [...] 90 min low impact. 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 ( leukemia age 43 ) 06/24 2 son in [facility] 06/19/2020 Brother 2 healthy 06/19/2020 3 sister healthy 06/19/2020 Mother 58 ( CHF cancer spinal from breast ) 06/19/2020 ( did not smoke ) Father brain aneurysm 67 06/19/2020 ( did smoke) 02/23 COVID cough, sneezing, sore throat, no temp etc . documented in this encounterAcmc Healthcare System07-10-2024 History of Present illness Narrative* Becca Garcia PA-C - 09/13/2023 9:07 AM EDT Patient needs to keep follow up in September to continue treatment. documented in this encounterAcmc Healthcare System05-30-2024 Telephone encounter Note * Telephone Encounter - Deysi Fried - 08/03/2023 9:00 AM EDT Samara Julian Approved [id number] [facility]/Faxed 08.04.23-08.03.24 Deysi Mantilla, Head Transfer Clerk [facility]05-30-2024 Miscellaneous Notes* Telephone Encounter - Deysi Fried - 08/03/2023 9:00 AM EDT Samara [place] Approved [id number] [facility]/Faxed 08.04.23-08.03.24 Deysi Mantilla Head Transfer Clerk documented in this encounterAcmc Healthcare System05-29-2024 Telephone encounter Note * Telephone Encounter - Ashley Bedoya MA - 08/02/2023 9:31 AM EDT Pharmacy sent a MyChart message requesting the following refill. Requested Prescriptions Pending Prescriptions Disp Refills methotrexate 2.5 mg tablet 96 tablet 0 Sig: Take 8 tablets by mouth one time a week. Patient last appointment: 04/17/2023 Next Appointment: 09/15/2023 Patient Phone numbers: [phone] (home) Request is for script(s) to be escript to pharmacy. Ashley Bedoya MA [facility]05-29-2024 Miscellaneous Notes* Telephone Encounter - sAhley Bedoya MA - 08/02/2023 9:31 AM EDT Pharmacy sent a Stigni.bghart message requesting the following refill. Requested Prescriptions Pending Prescriptions Disp Refills methotrexate 2.5 mg tablet 96 tablet 0 Sig: Take 8 tablets by mouth one time a week. Patient last appointment: 04/17/2023 Next Appointment: 09/15/2023 Patient Phone numbers: [phone] (home) Request is for script(s) to be escript to pharmacy. Ashley Bedoya MA documented in this encounterAcmc Healthcare System05-24-2024 History of Present illness Narrative* Robert Farias MD - 07/28/2023 10:55 AM EDT Noted Robert Farias MD documented in this encounterAcmc Healthcare System05-22-2024 Telephone encounter Note * Telephone Encounter - Ashley Bedoya MA - 07/26/2023 9:09 AM EDT Patient sent a MyChart [...] 04/16/2021 Next Appointment: 09/15/2023 Patient Phone numbers: [phone] (home) Request is for script(s) to be escript to pharmacy. Ashley Bedoya MA Patient wants 90 day supply as she will be on vacation. [facility]05-22-[facility]24 Miscellaneous Notes* Telephone Encounter - Ashley Bedoya MA - 07/26/2023 9:09 AM EDT Patient sent a RootsRated message requesting the following refill. Requested Prescriptions [...] 04/16/2021 Next Appointment: 09/15/2023 Patient Phone numbers: [phone] (home) Request is for script(s) to be escript to pharmacy. Ashley Bedoya MA Patient wants 90 day supply as she will be on vacation. documented in this encounterAcmc Healthcare System04-12-2024 Miscellaneous Notes* Addendum Note - Emiliano Nassar - 06/16/2023 2:16 PM EDTAddended by: EMILIANO NASSAR on: 06/16/2023 02:16 PM Modules accepted: Orders documented in this encounterAcmc Healthcare System04-02-2024 Miscellaneous Notes* Telephone Encounter - Brynn Fofana [...] * GI Upset Stomach pain severe (home) [phone] (cell) Last Office Visit Date: 04/16/2021 Last [facility] Visit: 04/17/2023 Future Appointment: 09/15/2023 The patients preferred pharmacy has been captured for this encounter? yes Request is for script(s) to be escript to pharmacy. Brynn Fofana LPN documented in this encounterAcmc Healthcare System03-04-2024 Miscellaneous Notes* Telephone Encounter - Pauly Goodwin - 05/08/2023 3:31 PM EST Patient is scheduled. Pauly Goodwin * Telephone Encounter - Ashley Bedoya MA - 05/08/2023 7:46 AM EST Pharmacy sent a RootsRated message requesting the following refill. Requested Prescriptions Pending Prescriptions Disp Refills hydrOXYchloroQUINE (PLAQUENIL) 200 mg tablet [Pharmacy Med Name: HYDROXYCHLOROQUINE 200 MG TAB] 30 tablet 2 Sig: take 1 tablet by mouth once daily Patient last appointment: 04/17/2023 Next Appointment: Visit date not found Patient Phone numbers: [phone] (home) Request is for script(s) to be escript to pharmacy. Ashley Bedoya MA Needs 3 mth follow up documented in this encounterAcmc Healthcare System02-20-2024 Miscellaneous Notes* Telephone Encounter - Ashley Bedoya MA - 04/25/2023 10:00 AM EST Patient sent a RootsRated message requesting the following refill. Requested Prescriptions Pending Prescriptions Disp Refills naproxen (NAPROSYN) 500 mg tablet 180 tablet 0 Sig: Take 1 tablet by mouth two times a day with meals. Patient last appointment: 04/16/2021 Next Appointment: Visit date not found Patient Phone numbers: [phone] (home) Request is for script(s) to be escript to pharmacy. Ashley Bedoya MA documented in this encounterAcmc Healthcare System02-15-2024 Miscellaneous Notes* Telephone Encounter - Ashley Bedoya [...] of : 1960 Primary Care Provider: Edis F Padmini, DO Patient has been identified by name and Date of (Y/N): y Patient: Jaylin Carroll Date of : 1960 Provider for this encounter: Edis Trejo DO Reason for the call/escalation: Message Was Patient Referred to 911/Seek Emergency Treatment (Y/N): n Did Patient Agree (Y/N): n Was An Attempt Made To Transfer The Patient To The Office (Y/N): n Were You Able To Reach Someone At The Office (Y/N): n If Yes - Patient Was Transferred To (Caregivers Name): n If No - Which [facility] Leadership Automation Controls Specialist Did You Speak With Regarding This Patient: n Was an appointment scheduled (Y/N): n Reason patient was requesting visit (RFV/signs and symptoms/diagnosis) : Monika jordan [facility] in needing the completed re enrollment packet to be faxed back to [phone] Person calling if other than patient: yes Return call to if other than patient: yes Best contact number: Thank you, Dluce Rehman April 18, 2023 9:42 AM documented in this encounterAcmc Healthcare System02-12-2024 History of Present illness Narrative* Robert Farias [...] Plan First visit 06/19/2020 ( moved from [place] ) RA and wants treatment for that [...] 02/24 fully covered next 02/26/2410/25 10.23 04/29 remission . Optha pending, ( working mon [...] 90 min low impact. 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 ( leukemia age 43 ) 06/24 2 son in [facility] 06/19/2020 Brother 2 healthy 06/19/2020 [...] visit. Either the patient or their legal customer development representative has been informed of the risks and benefits of -- and alternatives to -- treatment through a remote evaluation andconsents to proceed with the evaluation remotely. documented in this encounterAcmc Healthcare System11-29-2023 Miscellaneous Notes* Telephone Encounter - Ann Marie Frank MA - 02/01/2023 2:13 PM EST Patient sent a RootsRated message requesting the following refill. Requested Prescriptions [...] 12/26/22 Next Appointment: 04/17/2023 Patient Phone numbers: [phone] (home) Request is for script(s) to be escript to pharmacy. Ann Marie Frank MA documented in this encounterAcmc Healthcare System11-09-2023 Miscellaneous Notes* Telephone Encounter - Bianca Kent - 01/12/2023 2:31 PM EST Summary: Ben copay I think this is in regards to her needing to reapply for next year. I haven't got any forms yet so I will have to give them a call. Please let me know if you get anything from them over the fax. Thanks!! * Telephone Encounter - Roverto West MA - 01/12/2023 1:20 PM EST Keke from [employer] called and stated they needed Renflexis order form. She said can call them back if there's any questions, . documented in this encounterAcmc Healthcare System11-07-2023 Miscellaneous Notes* Telephone Encounter - Roverto West MA - 01/10/2023 10:38 AM EST Pharmacy faxed requesting the following refill. Requested Prescriptions Pending Prescriptions Disp Refills naproxen (NAPROSYN) 500 mg tablet [Pharmacy Med Name: NAPROXEN 500 MG TABLET] 180 tablet 0 Sig: Take 1 tablet by mouth two times a day with meals. Patient last appointment: 04/16/2021 Next Appointment: 04/17/2023 Patient Phone numbers: [phone] (home) Request is for script(s) to be escript to pharmacy. Roverto West MA documented in this encounterAcmc Healthcare System10-23-2023 History of Present illness Narrative* Robert Farias MD - 12/26/2022 3:26 PM EDT This note was created using Amcom Softwareriter. Subjective Jaylin Carroll is a 62 year [...] Plan First visit 06/19/2020 ( moved from [place] ) RA and wants treatment for that [...] insurance covering 02/24 fully covered next 01/20/2310/25 10.23 remission . Optha pending, ( working mon [...] 90 min low impact. 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 ( leukemia age 43 ) 06/24 2 son in [facility] 06/19/2020 Brother 2 healthy 06/19/2020 [...] visit. Either the patient or their legal customer development representative has been informed of the risks and benefits of -- and alternatives to -- treatment through a remote evaluation andconsents to proceed with the evaluation remotely. documented in this encounterAcmc Healthcare System10-16-2023 Miscellaneous Notes* Telephone Encounter - Roverto West MA - 12/19/2022 2:05 PM EDT Patient sent a [employer] message requesting the following refill. Requested Prescriptions Pending Prescriptions Disp Refills tiZANidine (ZANAFLEX) 2 mg tablet 60 tablet 2 Sig: Take 1-3 tablets by mouth at bedtime as needed. Patient last appointment: Visit date not found Next Appointment: 12/26/2022 Patient Phone numbers: [phone] (home) Request is for script(s) to be escript to pharmacy. Roverto West MA * Telephone Encounter - Roverto West MA - 12/19/2022 2:04 PM EDTMessage from [employer]: Refills have been requested for the following medications: tiZANidine (ZANAFLEX) 2 mg tablet [Dr. Bradley Farias] Preferred pharmacy: [id number] [place] [address] - [address] [facility] [phone] Delivery method: Pickup documented in this encounterAcmc Healthcare System10-05-2023 Miscellaneous Notes* Telephone Encounter - Roverto West MA - 12/08/2022 9:16 AM EDT Pharmacy faxed requesting the following refill. Requested Prescriptions Pending Prescriptions Disp Refills folic acid 1 mg tablet [Pharmacy Med Name: FOLIC ACID 1 MG TABLET] 90 tablet 1 Sig: Take 1 tablet by mouth once daily. Patient last appointment: 04/16/2021 Next Appointment: 12/26/2022 Patient Phone numbers: [phone] (home) Request is for script(s) to be escript to pharmacy. Roverto West MA documented in this encounterAcmc Healthcare System10-04-2023 Miscellaneous Notes* Telephone Encounter - Roverto West MA - 12/07/2022 8:32 AM EDT Pharmacy faxed requesting the following refill. Requested Prescriptions Pending Prescriptions Disp Refills methotrexate 2.5 mg tablet [Pharmacy Med Name: METHOTREXATE 2.5 MG TABLET] 96 tablet 0 Sig: Take 8 tablets by mouth one time a week. Patient last appointment: 06/19/2020 Next Appointment: 12/26/2022 Patient Phone numbers: [phone] (home) Request is for script(s) to be escript to pharmacy. Roverto West MA documented in this encounterAcmc Healthcare System09-23-2023 History of Present illness Narrative* Robert Farias MD - 11/26/2022 7:02 PM EDT Merna Farias MD documented in this [facility]09-08-2023 Miscellaneous Notes* Telephone Encounter - Roverto West MA - 11/11/2022 9:30 AM EDT Pharmacy faxed requesting the following refill. Requested Prescriptions Pending Prescriptions Disp Refills hydrOXYchloroQUINE (PLAQUENIL) 200 mg tablet [Pharmacy Med Name: HYDROXYCHLOROQUINE 200 MG TAB] 30 tablet 2 Sig: Take 1 tablet by mouth once daily. Patient last appointment: 04/16/2021 Next Appointment: 12/26/2022 Patient Phone numbers: [phone] (home) Request is for script(s) to be escript to pharmacy. Roverto West MA documented in this encounterCleveland [id number] Procedure [facility]08-07-2023 Miscellaneous Notes* Telephone Encounter - Roverto West MA - 10/10/2022 11:08 AM EDT Pharmacy faxed requesting the following refill. Requested Prescriptions Pending Prescriptions Disp Refills naproxen (NAPROSYN) 500 mg tablet [Pharmacy Med Name: NAPROXEN 500 MG TABLET] 180 tablet 0 Sig: Take 1 tablet by mouth twice daily with meals. Patient last appointment: 04/16/2021 Next Appointment: 12/26/2022 Patient Phone numbers: [phone] (home) Request is for script(s) to be escript to pharmacy. Roverto West MA documented in this encounterAcmc Healthcare System07-12-2023 Miscellaneous Notes* Telephone Encounter - Roverto West MA - 09/14/2022 9:07 AM EDT Pharmacy faxed requesting the following refill. Requested Prescriptions Pending Prescriptions Disp Refills methotrexate 2.5 mg tablet [Pharmacy Med Name: METHOTREXATE 2.5 MG TABLET] 96 tablet 0 Sig: Take 8 tablets by mouth one time a week. Patient last appointment: 06/19/2020 Next Appointment: 12/26/2022 Patient Phone numbers: [phone] (home) Request is for script(s) to be escript to pharmacy. Roverto West MA documented in this encounterAcmc Healthcare System07-06-2023 Miscellaneous Notes* Telephone Encounter - Roverto West [...] found Next Appointment: 12/26/2022 Patient Phone numbers: [phone] (home) Request is for script(s) to be escript to pharmacy. Roverto West MA documented in this encounterAcmc Healthcare System06-30-2023 History of Present illness Narrative* Robert Farias MD - 09/02/2022 3:12 PM EDT This note was created using Am[employer] Software[employer]. Subjective Jaylin Carroll is a 62 year [...] Plan First visit 06/19/2020 ( moved from [place] ) RA and wants treatment for that [...] 2nd 3 rd MCP ) Dr. Mendes [place] Rheum [place] [facility]um : 01/2020 last [...] 90 min low impact. 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 ( leukemia age 43 ) 06/24 2 son in [facility] 06/19/2020 Brother 2 healthy 06/19/2020 [...] visit. Either the patient or their legal customer development representative has been informed of the risks and benefits of -- and alternatives to -- treatment through a remote evaluation andconsents to proceed with the evaluation remotely. documented in this encounterAcmc Healthcare System06-21-2023 History of Present illness Narrative* Robert Farias MD - 08/24/2022 6:30 PM EDT Noted Robert Farias MD documented in this encounterAcmc Healthcare System06-07-2023 Miscellaneous Notes* Telephone Encounter - Roverto West MA - 08/10/2022 3:31 PM EDT Pharmacy faxed requesting the following refill. Requested Prescriptions Pending Prescriptions Disp Refills hydrOXYchloroQUINE (PLAQUENIL) 200 mg tablet [Pharmacy Med Name: HYDROXYCHLOROQUINE 200 MG TAB] 30 tablet 2 Sig: Take 1 tablet by mouth once daily. Patient last appointment: 04/16/2021 Next Appointment: 09/02/2022 Patient Phone numbers: [phone] (home) Request is for script(s) to be escript to pharmacy. Roverto West MA documented in this encounterAcmc Healthcare System04-27-2023 History of Present illness Narrative* Robert Farias MD - 06/30/2022 8:36 PM EDT Noted Robert Farias MD documented in this encounterAcmc Healthcare System04-26-2023 Miscellaneous Notes* Telephone Encounter - Roverto West [...] found Next Appointment: 09/02/2022 Patient Phone numbers: [phone] (home) Request is for script(s) to be escript to pharmacy. Roverto West MA documented in this encounterAcmc Healthcare System04-18-2023 Miscellaneous Notes* Telephone Encounter - Roverto West MA - 06/21/2022 1:56 PM EDT Pharmacy faxed requesting the following refill. Requested Prescriptions Pending Prescriptions Disp Refills methotrexate 2.5 mg tablet [Pharmacy Med Name: METHOTREXATE 2.5 MG TABLET] 96 tablet 0 Sig: Take 8 tablets by mouth every Monday. Patient last appointment: 06/19/2020 Next Appointment: 09/02/2022 Patient Phone numbers: [phone] (home) Request is for script(s) to be escript to pharmacy. Roverto West MA documented in this encounterAcmc Healthcare System04-07-2023 Miscellaneous Notes* Telephone Encounter - Brynn Fofana [...] * GI Upset Stomach pain severe (home) [phone] (cell) Last Office Visit Date: 04/16/2021 Last [facility] Visit: 05/12/2022 Future Appointment: Visit date not found The patients preferred pharmacy has been captured for this encounter? yes Request is for script(s) to be escript to pharmacy. Brynn Fofana LPN documented in this encounterAcmc Healthcare System03-09-2023 Miscellaneous Notes* Telephone Encounter - Roverto West MA - 05/12/2022 11:48 AM EST Pharmacy faxed requesting the following refill. Requested Prescriptions Pending Prescriptions Disp Refills hydrOXYchloroQUINE (PLAQUENIL) 200 mg tablet [Pharmacy Med Name: HYDROXYCHLOROQUINE 200 MG TAB] 30 tablet 2 Sig: Take 1 tablet by mouth once daily. Patient last appointment: 04/16/2021 Next Appointment: 05/12/2022 Patient Phone numbers: [phone] (home) Request is for script(s) to be escript to pharmacy. Roverto West MA documented in this encounterAcmc Healthcare System02-27-2023 Miscellaneous Notes* Telephone Encounter - oRverto West MA - 05/02/2022 11:46 AM EST Pharmacy faxed requesting the following refill. Requested Prescriptions Pending Prescriptions Disp Refills tiZANidine (ZANAFLEX) 2 mg tablet [Pharmacy Med Name: TIZANIDINE HCL 2 MG TABLET] 60 tablet 2 Sig: TAKE 1 TO 3 TABLETS BY MOUTH AT BEDTIME NEEDED Patient last appointment: Visit date not found Next Appointment: 05/12/2022 Patient Phone numbers: [phone] (home) Request is for script(s) to be escript to pharmacy. Roverto West MA documented in this encounterAcmc Healthcare System02-08-2023 Miscellaneous Notes* Telephone Encounter - Roverto West MA - 04/13/2022 10:19 AM EST Pharmacy faxed requesting the following refill. Requested Prescriptions Pending Prescriptions Disp Refills naproxen (NAPROSYN) 500 mg tablet [Pharmacy Med Name: NAPROXEN 500 MG TABLET] 180 tablet 1 Sig: TAKE 1 TABLET BY MOUTH TWICE A DAY WITH MEALS Patient last appointment: 04/16/2021 Next Appointment: 05/12/2022 Patient Phone numbers: [phone] (home) Request is for script(s) to be escript to pharmacy. Roverto West MA documented in this encounterAcmc Healthcare System01-26-2023 History of Present illness Narrative* RT Alan(R) [...] 31, 2022 9:36 AM documented in this [facility]01-25-2023 Miscellaneous Notes* Telephone Encounter - Roverto West MA - 03/30/2022 1:24 PM EST Pharmacy faxed requesting the following refill. Requested Prescriptions Pending Prescriptions Disp Refills methotrexate 2.5 mg tablet [Pharmacy Med Name: METHOTREXATE 2.5 MG TABLET] 96 tablet 0 Sig: TAKE 8 TABLETS BY MOUTH EVERY MONDAY. Patient last appointment: 06/19/2020 Next Appointment: 05/12/2022 Patient Phone numbers: [phone] (home) Request is for script(s) to be escript to pharmacy. Roverto West MA documented in this [facility]12-30-2022 Miscellaneous Notes* Telephone Encounter - Roverto West [...] found Next Appointment: 05/12/2022 Patient Phone numbers: [phone] (home) Request is for script(s) to be escript to pharmacy. Roverto West MA documented in this [facility]12-12-2022 Miscellaneous Notes* Telephone Encounter - Brynn Fofana LPN - 02/14/2022 3:12 PM EST Pharmacy faxed requesting the following refill. Requested Prescriptions Pending Prescriptions Disp Refills tiZANidine (ZANAFLEX) 2 mg tablet [Pharmacy Med Name: TIZANIDINE HCL 2 MG TABLET] 60 tablet 0 Sig: TAKE 1 TO 3 TABLETS BY MOUTH AT BEDTIME NEEDED Patient last appointment: 02/04/2022 virtual Next Appointment: 05/12/2022 Patient Phone numbers: [phone] (home) Request is for script(s) to be escript to pharmacy. Brynn Fofana LPN documented in this encounterAcmc Healthcare System12-05-2022 Miscellaneous Notes* Telephone Encounter - Brynn Fofana LPN - 02/07/2022 3:04 PM EST Pharmacy faxed requesting the following refill. Requested Prescriptions Pending Prescriptions Disp Refills hydrOXYchloroQUINE (PLAQUENIL) 200 mg tablet 30 tablet 2 Sig: Take 1 tablet by mouth once daily. Patient last appointment: 02/04/2022 virtual Next Appointment: 05/12/2022 Patient Phone numbers: [phone] (home) Request is for script(s) to be escript to pharmacy. Brynn Fofana LPN documented in this [facility]12-02-2022 Instructions* Patient Instructions* Robert Farias MD - [...] your usual activities immediately. documented in this encounterAcmc Healthcare System12-01-2022 History of Present illness Narrative* Robert Farias MD - 02/03/2022 8:01 PM EST This note was created using EventKloud. Subjective Jaylin Carroll is a 61 year [...] Plan First visit 06/19/2020 ( moved from [place] ) RA and wants treatment for that [...] 2nd 3 rd MCP ) Dr. Mendes [place] Rheum [place] [facility] : 01/2020 last [...] 90 min low impact. 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 ( leukemia age 43 ) 06/24 2 son in [facility] 06/19/2020 Brother 2 healthy 06/19/2020 3 sister healthy 06/19/2020 Mother 58 ( CHF cancer spinal from breast ) 06/19/2020 ( did not smoke ) Father brain aneurysm 67 06/19/2020 ( did smoke) COVID Moderna 01/2021 (3) done 02/23 COVID cough, sneezing, sore throat, no temp etc . documented in this encounterAcmc Healthcare System11-17-2022 Miscellaneous Notes* Telephone Encounter - Brynn Fofana LPN - 01/20/2022 3:41 PM EST Hammer Smith from [employer] calls today and leaves reference # of [id number] in regards to renflexis. Asked for call back at [phone]. Byrnn Fofana LPN documented in this encounterAcmc Healthcare System11-17-2022 Miscellaneous Notes* Telephone Encounter - Roverto West [...] found Next Appointment: 02/04/2022 Patient Phone numbers: [phone] (home) Request is for script(s) to be escript to pharmacy. Roverto West MA documented in this encounterAcmc Healthcare System11-09-2022 Miscellaneous Notes* Telephone Encounter - Roverto West MA - 01/12/2022 2:49 PM EST Pharmacy faxed requesting the following refill. Requested Prescriptions Pending Prescriptions Disp Refills methotrexate 2.5 mg tablet 96 tablet 0 Sig: Take 8 tablets by mouth every Monday. Patient last appointment: 06/19/2020 Next Appointment: 02/04/2022 Patient Phone numbers: [phone] (home) Request is for script(s) to be escript to pharmacy. Roverto West MA documented in this encounterAcmc Healthcare System10-31-2022 History of Present illness Narrative* Robert Farias MD - 01/03/2022 2:40 PM EDT Noted Robert Farias MD documented in this encounterAcmc Healthcare System10-21-2022 Miscellaneous Notes* Telephone Encounter - Roverto West [...] found Next Appointment: 02/04/2022 Patient Phone numbers: [phone] (home) Request is for script(s) to be escript to pharmacy. Roverto West MA documented in this encounterAcmc Healthcare System10-12-2022 Miscellaneous Notes* Telephone Encounter - Roverto West MA - 12/15/2021 12:08 PM EDT Pharmacy faxed requesting the following refill. Requested Prescriptions Pending Prescriptions Disp Refills folic acid 1 mg tablet [Pharmacy Med Name: FOLIC ACID 1 MG TABLET] 90 tablet 1 Sig: TAKE 1 TABLET BY MOUTH EVERY DAY Patient last appointment: 04/16/2021 Next Appointment: 02/04/2022 Patient Phone numbers: [phone] (home) Request is for script(s) to be escript to pharmacy. Roverto West MA documented in this encounterAcmc Healthcare System09-09-2022 History of Present illness Narrative* Roebrt Farias MD - 11/12/2021 7:14 AM EDT noted documented in this encounterAcmc Healthcare System08-19-2022 History of Present illness Narrative* Robert Farias MD - 10/22/2021 2:30 PM EDT This note was created using Amcom Softwareriter. Subjective Jaylin Carroll is a 61 year [...] (98.1 F) (Temporal) Height 154.9 cm (5' 1") Weight 92.7 kg (204 lb 4.8 oz) [...] Plan First visit 06/19/2020 ( moved from [place] ) RA and wants treatment for that [...] 2nd 3 rd MCP ) Dr. 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 ( leukemia age 43 ) 2 son in [facility] 06/19/2020 Brother 2 healthy 06/19/2020 3 sister healthy 06/19/2020 Mother 58 ( CHF cancer spinal from breast ) 06/19/2020 ( did not smoke ) Father brain aneurysm 67 06/19/2020 ( did smoke) COVID Moderna 01/2021 (3) done 02/23 COVID cough, sneezing, sore throat, no temp etc . documented in this encounterAcmc Healthcare System08-12-2022 Miscellaneous Notes* Telephone Encounter - Tia Carcamo MA - 10/15/2021 8:31 AM EDT Pharmacy faxed requesting the following refill. Requested Prescriptions Pending Prescriptions Disp Refills naproxen (NAPROSYN) 500 mg tablet [Pharmacy Med Name: NAPROXEN 500 MG TABLET] 180 tablet 1 Sig: TAKE 1 TABLET BY MOUTH TWICE A DAY WITH MEALS Patient last appointment: 04/16/2021 Next Appointment: 10/22/2021 Patient Phone numbers: [phone] (home) Request is for script(s) to be escript to pharmacy. Tia Carcamo MA documented in this encounterAcmc Healthcare System07-27-2022 Miscellaneous Notes* Telephone Encounter - Brynn Fofana LPN - 09/29/2021 9:47 AM EDT Med had to be called into pts pharmacy- That was done for one 30 g tube to [facility] in [place]. Pt has been notified that cream is to be applied one hour prior to infusion around port site and cover with an occlusive drsg for skin anesthesia and voiced understanding. Brynn Fofana LPN * Telephone Encounter - Brynn Fofana LPN - 09/29/2021 9:06 AM EDT Med needs called in to pharm Brynn Fofana LPN documented in this encounterAcmc Healthcare System07-26-2022 Miscellaneous Notes* Addendum Note - Brynn Fofana [...] suggested by infusion staff. Sent message to [place] infusion staff to seetheir recommendation Brynn Fofana LPN documented in this encounterAcmc Healthcare System07-08-2022 Miscellaneous Notes* Telephone Encounter - Brynn Fofana LPN - 09/10/2021 12:50 PM EDT Pharmacy faxed requesting the following refill. Pending Prescriptions Disp Refills TIZANIDINE 2 MG TABLET Sig: TAKE 1-3 TABLETS AT BEDTIME NEEDED BETTY: No Patient last appointment: 07/16/2021 Next Appointment: 10/22/2021 Patient Phone numbers: [phone] (home) Request is for script(s) to be escript to pharmacy. Brynn Fofana LPN documented in this encounterAcmc Healthcare System06-13-2022 Miscellaneous Notes* Telephone Encounter - Tia Carcamo MA - 08/16/2021 9:40 AM EDT Pharmacy faxed requesting the following refill. Pending Prescriptions Disp Refills FOLIC ACID 1 MG TABLET 30 tablet 5 Sig: TAKE 1 TABLET BY MOUTH EVERY DAY BETTY: No Patient last appointment: 04/16/2021 Next Appointment: 10/22/2021 Patient Phone numbers: [phone] (home) Request is for script(s) to be escript to pharmacy. Tia Carcamo MA documented in this encounterAcmc Healthcare System06-08-2022 Miscellaneous Notes* Telephone Encounter - Isabela Bal Senior Sales Engineer Ppg - 08/11/2021 2:01 PM EDT Renflexis PENDING with [facility] fax with office note pt scheduled Isabela Bal Johnston [employer] documented in this encounterAcmc Healthcare System06-06-2022 Miscellaneous Notes* Telephone Encounter - Tia Carcamo MA - 08/09/2021 9:11 AM EDT Pharmacy faxed requesting the following refill. Pending Prescriptions Disp Refills HYDROXYCHLOROQUINE 200 MG TABLET 30 tablet 2 Sig: TAKE 1 TABLET BY MOUTH EVERY DAY BETTY: Yes Patient last appointment: 04/16/2021 Next Appointment: 10/22/2021 Patient Phone numbers: [phone] (home) Request is for script(s) to be escript to pharmacy. Tia Carcamo MA documented in this encounterAcmc Healthcare System05-26-2022 Miscellaneous Notes* Telephone Encounter - Brynn Fofana [...] remicade Robert Farias MD documented in this encounterAcmc Healthcare System05-19-2022 Miscellaneous Notes* Telephone Encounter - Isabela Bal Senior Sales Engineer P[employer] - 07/22/2021 10:38 AM EDT Saudira Pen APPROVED [id number] 07.04.2021 - 07.21.2022 with caresource/cover my meds Isabela Bal Johnston [employer] * Telephone Encounter - Isabela Bal Johnston [employer] - 07/22/2021 9:33 AM EDT Saudira Pen PENDING with [employer]/cover my meds Isabela Bal Senior Sales Engineer P[employer] documented in this encounterAcmc Healthcare System05-16-2022 Miscellaneous Notes* Addendum Note - Robert Farias MD - 07/19/2021 12:37 PM EDT Addended by: ROBERT FARIAS on: 07/19/2021 12:37 PM Modules accepted: Orders * Telephone Encounter - Robert Farias MD - 07/19/2021 12:36 PM EDT Placed orders Thanks Robert Farias MD * Telephone Encounter - Brynn Fofana LPN - 07/19/2021 10:42 AM EDT Called an spoke to Josefa at [facility]- the order needs placed for IR Peripheral Inserted Tunnel Port.Procedure # [id number]. Once this order is placed they will take care of scheduling pt. I gave them all of the pts information over the phone today. Brynn Fofana LPN * Telephone Encounter - Robert Farias MD - 07/16/2021 4:14 PM EDT Brynn She needs a port for infusion for remicade Can you find out which one Thanks Robert Farias MD documented in this encounterAcmc Healthcare System05-13-2022 History of Present illness Narrative* Robert Farias MD - 07/16/2021 10:50 AM EDT This note was created using Amcom Softwareriter. Subjective Jaylin Carroll is a 60 year [...] (98.2 F) (Temporal) Height 154.9 cm (5' 1") Weight 89.8 kg (198 lb) Body Mass [...] Plan First visit 06/19/2020 ( moved from [place] ) RA and wants treatment for that [...] 2nd 3 rd MCP ) Dr. 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 ( leukemia age 43 ) 2 son in [facility] 06/19/2020 Brother 2 healthy 06/19/2020 3 sister healthy 06/19/2020 Mother 58 ( CHF cancer spinal from breast ) 06/19/2020 ( did not smoke ) Father brain aneurysm 67 06/19/2020 ( did smoke) COVID Moderna 01/2021 (3) done 02/23 COVID cough, sneezing, sore throat, no temp etc . documented in this encounterAcmc Healthcare System06-08-2021 Miscellaneous Notes* Telephone Encounter - Tia Carcamo MA - 08/11/2020 4:01 PM EDT Pt is aware and understand. * Telephone Encounter - Robert Farias MD - 08/10/2020 6:01 PM EDT Please inform patient to get labs done Robert Farias MD documented in this encounterAcmc Healthcare System06-08-2021 Miscellaneous Notes* Telephone Encounter - Kelsea Sosa - 08/11/2020 1:52 PM EDT I spoke with the patient, she was calm and pleasant, said she will get her TB test done LUISA. Askedthat we communicate with her via phone going forward as MyChart is not preferred. [facility] like a [facility] infusion [facility] to her home (not sure if the [facility] infusion). * Telephone Encounter [...] informed her that I would let my screen printing supervisor aware of the situation. Deysi TATE documented in this encounterAcmc Healthcare System06-08-2021 Miscellaneous Notes* Telephone Encounter - Deysi Fried - 08/11/2020 10:02 AM EDT Patient states she will get the labs done on Tuesday 08/15. Deysi TATE documented in this encounterAcmc Healthcare System06-01-2021 Miscellaneous Notes* Telephone Encounter - Isabela Munoz - 08/04/2020 3:54 PM EDT Renflexis fax pending with nathanael Vann documented in this encounterAcmc Healthcare System04-16-2021 Miscellaneous Notes* Telephone Encounter - Tatyana Shah - 06/19/2020 3:17 PM EDT At checkout per Dr Farias: Please get remicade (order in [facility] prior authorized) Patient had been on it in [place], last dose beginning of February. She has Nathanael romero, gave her brochure, she will check on copay assistance for infusions, fyi. Tatyana Diaz Senior Sales Engineer documented in this encounterAcmc Healthcare System04-16-2021 History of Present illness Narrative* Robert Farias - 06/19/2020 2:24 PM EDT This note was created using EventKloud. 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 Never smoked of each No ETOH . ( leukemia age 43 ) 2 son in [facility] 06/19/2020 Brother 2 healthy 06/19/2020 3 sister healthy 06/19/2020 Mother 58 ( CHF cancer spinal from breast ) 06/19/2020 ( did not smoke ) Father brain aneurysm 67 06/19/2020 ( did smoke) documented in this encounterAcmc Healthcare SystemConsult note Author Kat Traylor [facility] Note Date/Time May 27, 2024 3:[address] [place] [address] Medical Records Department [address] [place] [id number] Counseling Note - Pharmacy 05/27/24 1511 MR#: [id number] Acct: [id number] Name: JAYLIN CARROLL Rep #:[id number] : 1960 63 From: Kat Traylor PCP: Dr. Paul Greco MD Status:ADM IN O Y Location: [place] [address] Pharmacy [place] Med Reconciliation Pharmacy Service has performed discharge [...] mg PO QDAY #60 tabs 04/30/24 05/27/24 4331 <Electronically signed by Kat Traylor> Date _ Kat Traylor Cosigner Signature (if applicable): Date CC: ~ Signed [facility] Work Phone: Discharge summary Author Isael Baeza [facility] Note Date/Time May 27, 2024 3:0 6pm [facility] Medical Records Department [address] [place] [address] Instructions for Home/Discharge Instructions 05/27/24 1503 MR#: [id number] Acct: [id number] Name: JAYLIN CARROLL Rep #:[id number] : 1960 63 From: Isael Baeza DO [...] MD; Dr. Paul Greco MD ~ Signed [facility] Work Phone: Discharge summary Author [facility] Note Date/Time May 27, 2024 3:[address] [place] [address] System Medical Records Department [address] [place] [id number] Discharge Summary 05/27/24 1506 MR#: [id number] Acct: [id number] Name: JAYLIN CARROLL Rep #:[id number] : 1960 63 From: Isael Baeza DO PCP: Dr. Paul Greco MD Status:ADM IN Location: [place] [address] Providers Date of Admission: 05/27/24 Date of [...] Neut % (Auto) 50.1, Lymph % (Auto) 35.2,Sampson % (Auto) 10.7 H, Eos % (Auto) [...] Self Care Charges/Coding Visit Charges Inpatient E&M: 29555 Disch Hosp 05/27/24 1512 <Electronically signed by Isael Baeza DO> Cosigner Signature (if applicable): CC: Dr. Paul Greco MD; Dr. Isael Baeza DO~ Signed [facility] Work Phone: Evaluation note* Diagnosis Rheumatoid arthritis involving both hands with positive rheumatoid factor (HCC) documented in this encounter [facility] note* Diagnosis Rheumatoid arthritis involving both hands with positive rheumatoid factor (HCC)- Primary Chronic bilateral low back pain without sciatica documented in this encounter [facility] note* Diagnosis Rheumatoid arthritis involving both hands with positive rheumatoid factor (HCC)- Primary [facility] Diagnosis Rheumatoid arthritis involving both hands with positive rheumatoid factor (HCC)- Primary [facility]* Diagnosis Rheumatoid arthritis involving both hands with positive rheumatoid factor (HCC)- Primary [facility]* Diagnosis Rheumatoid arthritis involving both hands with positive rheumatoid factor (HCC)- Primary [facility]* Diagnosis Rheumatoid arthritis involving both hands with positive rheumatoid factor (HCC)- Primary Rheumatoid arthritis involving both hands with positive rheumatoid factor (HCC) [facility]* Diagnosis Anesthesia of skin- Primary Disturbance of skin sensation [facility]* Diagnosis Anesthesia of skin- Primary Disturbance of skin sensation [facility]* Diagnosis Rheumatoid arthritis involving both hands with positive rheumatoid factor (HCC)- Primary [facility]* Diagnosis Rheumatoid arthritis involving both hands [...] postmenopausal status [facility]* Diagnosis Rheumatoid arthritis involving both hands with positive rheumatoid factor (HCC)- Primary [facility]* Diagnosis Asymptomatic postmenopausal status documented in this [facility] noteNo assessment information availableWChildren's Hospital for [facility] Work Phone: Evaluation note* Diagnosis Rheumatoid arthritis involving both hands with positive rheumatoid factor (HCC)- Primary [facility]* Diagnosis Rheumatoid arthritis involving both hands with positive rheumatoid factor (HCC)- Primary [facility]* Diagnosis Rheumatoid arthritis involving both hands with positive rheumatoid factor (HCC)- Primary [facility]* Diagnosis Rheumatoid arthritis involving both hands with positive rheumatoid factor (HCC)- Primary [facility]* Diagnosis Rheumatoid arthritis involving both hands with positive rheumatoid factor (HCC)- Primary [facility]* Diagnosis Anemia, chronic disease- Primary Anemia of other chronic disease [facility]* Diagnosis Rheumatoid arthritis involving both hands with positive rheumatoid factor (HCC)- Primary Anemia, chronic disease Anemia of other chronic disease Recurrent infections Unspecified infectious and parasitic diseases [facility]* Diagnosis Rheumatoid arthritis involving both hands with positive rheumatoid factor (HCC)- Primary [facility]* Diagnosis Rheumatoid arthritis involving both hands with positive rheumatoid factor (HCC)- Primary [facility]* Diagnosis Rheumatoid arthritis involving both hands with positive rheumatoid factor (HCC)- Primary documented in this encounter [facility]* Diagnosis Rheumatoid arthritis involving both hands with positive rheumatoid factor (HCC)- Primary Asymptomatic postmenopausal status High risk medication use Encounter for long-term (current) use of other medications documented in this encounter [facility]* Diagnosis Rheumatoid arthritis involving both hands with positive rheumatoid factor (HCC)- Primary documented in this encounter [facility]* Diagnosis Rheumatoid arthritis involving both hands with positive rheumatoid factor (HCC)- Primary documented in this encounter [facility]* Diagnosis Rheumatoid arthritis involving both hands with positive rheumatoid factor (HCC)- Primary High risk medication use Encounter for long-term (current) use of other medications Cerebrovascular disease Cerebrovascular disease, unspecified Asymptomatic postmenopausal status documented in this encounter [facility]* Diagnosis Rheumatoid arthritis involving both hands with positive rheumatoid factor (HCC)- Primary High risk medication use Encounter for long-term (current) use of other medications Cerebrovascular disease Cerebrovascular disease, unspecified documented in this encounter [facility] (narrative)No reason for referral information availableWChildren's Hospital for Rehabilitation Work Phone: Reason for visit Narrative* Outpatient Procedure (Routine) - Pending Review Specialty Diagnoses / Procedures Referred By Contac t Referred To Contact BD IMAGING Diagnoses Asymptomatic menopausal state Procedures DXA BONE DENSITY AXIAL 1+ SITES DXA-AXIAL SKELETON [[id number]] Robert Farias MD [address] [place] [address] Bd Imaging Referral ID Status Reason Start Date Expiration Date Visits Requested Visits Authorized [id number] Pending Review OON/Self Pay Override 02/07/2022 05/08/2022 1 1 [facility] Medications Administered Section Inactive Administered Medications - [...] FoundDocuments on File Type Date Recorded Patient Hammer Smith Expl anation Advance Directive(s) 09/21/2021 7:41 AM Documents on File Type Date Recorded Patient Hammer Smith Expl anation Advance Directive(s) 09/21/2021 7:41 AM Advance Directive Response Recorded Date/ Time Advance Directives on File No Novem 2023 9:20am Living Will No January 23, 024 9:20am Power of Health Associate No January 24, 2024 9:20am Living Will No February 08 6:09pm Power of Health Associate No February 09, 2024 6:09pm Living Will No April 12 2:46pm Power of Health Associate No April 12, 2024 2:46pm Living Will No March 10 9:33pm Power of Health Associate No March 10 025 9:33pm Advance Directive Response Recorded Date/ Time Living Will No February 08 6:09pm Do you have a Healthcare Power of Health Associate? No February 09, 2024 6:09pm Living Will No April 12 2:46pm Do you have a Healthcare Power of Health Associate? No April 12, 2024 2:46pm Living Will No March 10 9:33pm Do you have a Healthcare Power of Health Associate? No March 10, 2024 9:33pm Living Will No May 27, 2024 2:54am Do you have a Healthcare Power of Health Associate? No May 27, 2024 2:54am Advance Directive Response Recorded Date/ Time Do you have a Healthcare Power of Health Associate? No July 25, 2024 7:08pm Living Will No April 12 2:46pm Do you have a Healthcare Power of Health Associate? No April 12, 2024 2:46pm Living Will No May 27, 2024 2:54am Do you have a Healthcare Power of Health Associate? No May 27, 2024 2:54am Do you have a Healthcare Power of Health Associate? No July 03, 2024 6:16pm Advance Directive Response Recorded Date/ Time Do you have a Healthcare Power of Health Associate? No July 25, 2024 7:08pm Living Will No May 27, 2024 2:54am Do you have a Healthcare Power of Health Associate? No May 27, 2024 2:54am Do you have a Healthcare Power of Health Associate? No July 03, 2024 6:16pm Advance Directive Response Recorded Date/ Time Do you have a Healthcare Power of Health Associate? No July 25, 2024 7:08pm Do you have a Healthcare Power of Health Associate? No July 03, 2024 6:16pm Chief Complaint and Reason for Visit Chief Complaint EORDER Chief Complaint ASTHMA Asthma Chief Complaint ASTHMA Asthma EORDER Chief Complaint Admit Date [place]-NonSTEMI<12months January 24, 2024 8:05am INT LABS January 31, 2024 7:57am [place]-NonSTEMI<12months January 31, 2024 9:15am Hospital FU-[facility]EMIA February 06, 2024 9 :25am chest pain February 09, 2024 3 :12pm [place]-NonSTEMI<12months February 21, 2024 9:15am S/P [facility] 11/8 NONSTEMI/OK TO LEAVE PER MM M February 26, 2024 9:09am E ORDER February 26, 2024 10:06am [place]-NonSTEMI<12months March 08, 2024 6 :14am CHEST PAIN [...] Date INT LABS January 31, 2024 7:57am [place]-NonSTEMI<12months January 31, 2024 9:15am Hospital FU-ANEMIA February 06, 2024 9 :25am chest pain February 09, 2024 3 :12pm [place]-NonSTEMI<12months February 21, 2024 9:15am S/P [facility] 01/11 NONSTEMI/OK TO LEAVE PER MM M February 26, 2024 9:09am E ORDER February 26, 2024 10:06am [place]-NonSTEMI<12months March 08, 2024 6 :14am CHEST PAIN [...] m HTN August 13, 2024 9:02 am STROKE LIKE SYMPTOMS August 23, 2024 6:3 0am Chief Complaint Admit Date chest pain July 03, 2024 6:0 9pm CHEST PAIN July 25, 2024 7:02p m 2 M FU July 30, 2024 8:18a m HTN August 13, 2024 9:02 am STROKE LIKE SYMPTOMS August 23, 2024 6:3 0am 3 M FU October 29, 2024 8: 11am Reason for Visit Admit Date Hypertension July 30, 2024 8:18a m Hypertension October 29, 2024 8: 11am Summary Purpose Family History No Family History [...] or prosecute any alcohol or drug abuse patient.[facility] SystemIn the event this information is protected by the Federal Confidentiality of Alcohol and Drug Abuse Patient Records regulations: The Federal rules restrict any use of the information to criminally investigate or prosecute any alcohol or drug abuse patient.[facility] SystemIn the event this information is protected by the Federal Confidentiality of Alcohol and Drug Abuse Patient Records regulations: The Federal rules restrict any use of the information to criminally investigate or prosecute any alcohol or drug abuse patient.[facility] SystemIn the event this information is protected by the Federal Confidentiality of Alcohol and Drug Abuse Patient Records regulations: The Federal rules restrict any use of the information to criminally investigate or prosecute any alcohol or drug abuse patient.[facility] SystemIn the event this information is protected by the Federal Confidentiality of Alcohol and Drug Abuse Patient Records regulations: The Federal rules restrict any use of the information to criminally investigate or prosecute any alcohol or drug abuse patient.[facility] SystemIn the event this information is protected by the Federal Confidentiality of Alcohol and Drug Abuse Patient Records regulations: The Federal rules restrict any use of the information to criminally investigate or prosecute any alcohol or drug abuse patient.[facility] SystemIn the event this information is protected by the Federal Confidentiality of Alcohol and Drug Abuse Patient Records regulations: The Federal rules restrict any use of the information to criminally investigate or prosecute any alcohol or drug abuse patient.[facility] SystemIn the event this information is protected by the Federal Confidentiality of Alcohol and Drug Abuse Patient Records regulations: The Federal rules restrict any use of the information to criminally investigate or prosecute any alcohol or drug abuse patient.[facility] SystemIn the event this information is protected by the Federal Confidentiality of Alcohol and Drug Abuse Patient Records regulations: The Federal rules restrict any use of the information to criminally investigate or prosecute any alcohol or drug abuse patient.[facility] SystemIn the event this information is protected by the Federal Confidentiality of Alcohol and Drug Abuse Patient Records regulations: The Federal rules restrict any use of the information to criminally investigate or prosecute any alcohol or drug abuse patient.[facility] SystemIn the event this information is protected by the Federal Confidentiality of Alcohol and Drug Abuse Patient Records regulations: The Federal rules restrict any use of the information to criminally investigate or prosecute any alcohol or drug abuse patient.[facility] SystemIn the event this information is protected by the Federal Confidentiality of Alcohol and Drug Abuse Patient Records regulations: The Federal rules restrict any use of the information to criminally investigate or prosecute any alcohol or drug abuse patient.[facility] SystemIn the event this information is protected by the Federal Confidentiality of Alcohol and Drug Abuse Patient Records regulations: The Federal rules restrict any use of the information to criminally investigate or prosecute any alcohol or drug abuse patient.[facility] SystemIn the event this information is protected by the Federal Confidentiality of Alcohol and Drug Abuse Patient Records regulations: The Federal rules restrict any use of the information to criminally investigate or prosecute any alcohol or drug abuse patient.[facility] SystemIn the event this information is protected by the Federal Confidentiality of Alcohol and Drug Abuse Patient Records regulations: The Federal rules restrict any use of the information to criminally investigate or prosecute any alcohol or drug abuse patient.[facility] SystemIn the event this information is protected by the Federal Confidentiality of Alcohol and Drug Abuse Patient Records regulations: The Federal rules restrict any use of the information to criminally investigate or prosecute any alcohol or drug abuse patient.[facility] SystemIn the event this information is protected by the Federal Confidentiality of Alcohol and Drug Abuse Patient Records regulations: The Federal rules restrict any use of the information to criminally investigate or prosecute any alcohol or drug abuse patient.[facility] SystemIn the event this information is protected by the Federal Confidentiality of Alcohol and Drug Abuse Patient Records regulations: The Federal rules restrict any use of the information to criminally investigate or prosecute any alcohol or drug abuse patient.[facility] SystemIn the event this information is protected by the Federal Confidentiality of Alcohol and Drug Abuse Patient Records regulations: The Federal rules restrict any use of the information to criminally investigate or prosecute any alcohol or drug abuse patient.[facility] SystemIn the event this information is protected by the Federal Confidentiality of Alcohol and Drug Abuse Patient Records regulations: The Federal rules restrict any use of the information to criminally investigate or prosecute any alcohol or drug abuse patient.[facility] SystemIn the event this information is protected by the Federal Confidentiality of Alcohol and Drug Abuse Patient Records regulations: The Federal rules restrict any use of the information to criminally investigate or prosecute any alcohol or drug abuse patient.[facility] SystemIn the event this information is protected by the Federal Confidentiality of Alcohol and Drug Abuse Patient Records regulations: The Federal rules restrict any use of the information to criminally investigate or prosecute any alcohol or drug abuse patient.[facility] SystemIn the event this information is protected by the Federal Confidentiality of Alcohol and Drug Abuse Patient Records regulations: The Federal rules restrict any use of the information to criminally investigate or prosecute any alcohol or drug abuse patient.[facility] SystemIn the event this information is protected by the Federal Confidentiality of Alcohol and Drug Abuse Patient Records regulations: The Federal rules restrict any use of the information to criminally investigate or prosecute any alcohol or drug abuse patient.[facility] SystemIn the event this information is protected by the Federal Confidentiality of Alcohol and Drug Abuse Patient Records regulations: The Federal rules restrict any use of the information to criminally investigate or prosecute any alcohol or drug abuse patient.[facility] SystemIn the event this information is protected by the Federal Confidentiality of Alcohol and Drug Abuse Patient Records regulations: The Federal rules restrict any use of the information to criminally investigate or prosecute any alcohol or drug abuse patient.[facility] SystemIn the event this information is protected by the Federal Confidentiality of Alcohol and Drug Abuse Patient Records regulations: The Federal rules restrict any use of the information to criminally investigate or prosecute any alcohol or drug abuse patient.[facility] SystemIn the event this information is protected by the Federal Confidentiality of Alcohol and Drug Abuse Patient Records regulations: The Federal rules restrict any use of the information to criminally investigate or prosecute any alcohol or drug abuse patient.[facility] SystemIn the event this information is protected by the Federal Confidentiality of Alcohol and Drug Abuse Patient Records regulations: The Federal rules restrict any use of the information to criminally investigate or prosecute any alcohol or drug abuse patient.[facility] SystemIn the event this information is protected by the Federal Confidentiality of Alcohol and Drug Abuse Patient Records regulations: The Federal rules restrict any use of the information to criminally investigate or prosecute any alcohol or drug abuse patient.[facility] SystemIn the event this information is protected by the Federal Confidentiality of Alcohol and Drug Abuse Patient Records regulations: The Federal rules restrict any use of the information to criminally investigate or prosecute any alcohol or drug abuse patient.[facility] SystemIn the event this information is protected by the Federal Confidentiality of Alcohol and Drug Abuse Patient Records regulations: The Federal rules restrict any use of the information to criminally investigate or prosecute any alcohol or drug abuse patient.[facility] SystemIn the event this information is protected by the Federal Confidentiality of Alcohol and Drug Abuse Patient Records regulations: The Federal rules restrict any use of the information to criminally investigate or prosecute any alcohol or drug abuse patient.[facility] SystemIn the event this information is protected by the Federal Confidentiality of Alcohol and Drug Abuse Patient Records regulations: The Federal rules restrict any use of the information to criminally investigate or prosecute any alcohol or drug abuse patient.[facility] SystemIn the event this information is protected by the Federal Confidentiality of Alcohol and Drug Abuse Patient Records regulations: The Federal rules restrict any use of the information to criminally investigate or prosecute any alcohol or drug abuse patient.[facility] SystemIn the event this information is protected by the Federal Confidentiality of Alcohol and Drug Abuse Patient Records regulations: The Federal rules restrict any use of the information to criminally investigate or prosecute any alcohol or drug abuse patient.[facility] SystemIn the event this information is protected by the Federal Confidentiality of Alcohol and Drug Abuse Patient Records regulations: The Federal rules restrict any use of the information to criminally investigate or prosecute any alcohol or drug abuse patient.[facility] SystemIn the event this information is protected by the Federal Confidentiality of Alcohol and Drug Abuse Patient Records regulations: The Federal rules restrict any use of the information to criminally investigate or prosecute any alcohol or drug abuse patient.[facility] SystemIn the event this information is protected by the Federal Confidentiality of Alcohol and Drug Abuse Patient Records regulations: The Federal rules restrict any use of the information to criminally investigate or prosecute any alcohol or drug abuse patient.[facility] SystemIn the event this information is protected by the Federal Confidentiality of Alcohol and Drug Abuse Patient Records regulations: The Federal rules restrict any use of the information to criminally investigate or prosecute any alcohol or drug abuse patient.[facility] SystemIn the event this information is protected by the Federal Confidentiality of Alcohol and Drug Abuse Patient Records regulations: The Federal rules restrict any use of the information to criminally investigate or prosecute any alcohol or drug abuse patient.[facility] SystemIn the event this information is protected by the Federal Confidentiality of Alcohol and Drug Abuse Patient Records regulations: The Federal rules restrict any use of the information to criminally investigate or prosecute any alcohol or drug abuse patient.[facility] SystemIn the event this information is protected by the Federal Confidentiality of Alcohol and Drug Abuse Patient Records regulations: The Federal rules restrict any use of the information to criminally investigate or prosecute any alcohol or drug abuse patient.[facility] SystemIn the event this information is protected by the Federal Confidentiality of Alcohol and Drug Abuse Patient Records regulations: The Federal rules restrict any use of the information to criminally investigate or prosecute any alcohol or drug abuse patient.[facility] SystemIn the event this information is protected by the Federal Confidentiality of Alcohol and Drug Abuse Patient Records regulations: The Federal rules restrict any use of the information to criminally investigate or prosecute any alcohol or drug abuse patient.[facility] SystemIn the event this information is protected by the Federal Confidentiality of Alcohol and Drug Abuse Patient Records regulations: The Federal rules restrict any use of the information to criminally investigate or prosecute any alcohol or drug abuse patient.[facility] SystemIn the event this information is protected by the Federal Confidentiality of Alcohol and Drug Abuse Patient Records regulations: The Federal rules restrict any use of the information to criminally investigate or prosecute any alcohol or drug abuse patient.[facility] SystemIn the event this information is protected by the Federal Confidentiality of Alcohol and Drug Abuse Patient Records regulations: The Federal rules restrict any use of the information to criminally investigate or prosecute any alcohol or drug abuse patient.[facility] SystemIn the event this information is protected by the Federal Confidentiality of Alcohol and Drug Abuse Patient Records regulations: The Federal rules restrict any use of the information to criminally investigate or prosecute any alcohol or drug abuse patient.[facility] SystemIn the event this information is protected by the Federal Confidentiality of Alcohol and Drug Abuse Patient Records regulations: The Federal rules restrict any use of the information to criminally investigate or prosecute any alcohol or drug abuse patient.[facility] SystemIn the event this information is protected by the Federal Confidentiality of Alcohol and Drug Abuse Patient Records regulations: The Federal rules restrict any use of the information to criminally investigate or prosecute any alcohol or drug abuse patient.[facility] SystemIn the event this information is protected by the Federal Confidentiality of Alcohol and Drug Abuse Patient Records regulations: The Federal rules restrict any use of the information to criminally investigate or prosecute any alcohol or drug abuse patient.[facility] SystemIn the event this information is protected by the Federal Confidentiality of Alcohol and Drug Abuse Patient Records regulations: The Federal rules restrict any use of the information to criminally investigate or prosecute any alcohol or drug abuse patient.[facility] SystemIn the event this information is protected by the Federal Confidentiality of Alcohol and Drug Abuse Patient Records regulations: The Federal rules restrict any use of the information to criminally investigate or prosecute any alcohol or drug abuse patient.[facility] SystemIn the event this information is protected by the Federal Confidentiality of Alcohol and Drug Abuse Patient Records regulations: The Federal rules restrict any use of the information to criminally investigate or prosecute any alcohol or drug abuse patient.[facility] SystemIn the event this information is protected by the Federal Confidentiality of Alcohol and Drug Abuse Patient Records regulations: The Federal rules restrict any use of the information to criminally investigate or prosecute any alcohol or drug abuse patient.[facility] SystemIn the event this information is protected by the Federal Confidentiality of Alcohol and Drug Abuse Patient Records regulations: The Federal rules restrict any use of the information to criminally investigate or prosecute any alcohol or drug abuse patient.[facility] SystemIn the event this information is protected by the Federal Confidentiality of Alcohol and Drug Abuse Patient Records regulations: The Federal rules restrict any use of the information to criminally investigate or prosecute any alcohol or drug abuse patient.[facility] SystemIn the event this information is protected by the Federal Confidentiality of Alcohol and Drug Abuse Patient Records regulations: The Federal rules restrict any use of the information to criminally investigate or prosecute any alcohol or drug abuse patient.[facility] SystemIn the event this information is protected by the Federal Confidentiality of Alcohol and Drug Abuse Patient Records regulations: The Federal rules restrict any use of the information to criminally investigate or prosecute any alcohol or drug abuse patient.[facility] SystemIn the event this information is protected by the Federal Confidentiality of Alcohol and Drug Abuse Patient Records regulations: The Federal rules restrict any use of the information to criminally investigate or prosecute any alcohol or drug abuse patient.[facility] SystemIn the event this information is protected by the Federal Confidentiality of Alcohol and Drug Abuse Patient Records regulations: The Federal rules restrict any use of the information to criminally investigate or prosecute any alcohol or drug abuse patient.[facility] SystemIn the event this information is protected by the Federal Confidentiality of Alcohol and Drug Abuse Patient Records regulations: The Federal rules restrict any use of the information to criminally investigate or prosecute any alcohol or drug abuse patient.[facility] SystemIn the event this information is protected by the Federal Confidentiality of Alcohol and Drug Abuse Patient Records regulations: The Federal rules restrict any use of the information to criminally investigate or prosecute any alcohol or drug abuse patient.[facility] SystemIn the event this information is protected by the Federal Confidentiality of Alcohol and Drug Abuse Patient Records regulations: The Federal rules restrict any use of the information to criminally investigate or prosecute any alcohol or drug abuse patient.[facility] SystemIn the event this information is protected by the Federal Confidentiality of Alcohol and Drug Abuse Patient Records regulations: The Federal rules restrict any use of the information to criminally investigate or prosecute any alcohol or drug abuse patient.[facility] SystemIn the event this information is protected by the Federal Confidentiality of Alcohol and Drug Abuse Patient Records regulations: The Federal rules restrict any use of the information to criminally investigate or prosecute any alcohol or drug abuse patient.[facility] SystemIn the event this information is protected by the Federal Confidentiality of Alcohol and Drug Abuse Patient Records regulations: The Federal rules restrict any use of the information to criminally investigate or prosecute any alcohol or drug abuse patient.[facility] SystemIn the event this information is protected by the Federal Confidentiality of Alcohol and Drug Abuse Patient Records regulations: The Federal rules restrict any use of the information to criminally investigate or prosecute any alcohol or drug abuse patient.[facility] SystemIn the event this information is protected by the Federal Confidentiality of Alcohol and Drug Abuse Patient Records regulations: The Federal rules restrict any use of the information to criminally investigate or prosecute any alcohol or drug abuse patient.[facility] SystemIn the event this information is protected by the Federal Confidentiality of Alcohol and Drug Abuse Patient Records regulations: The Federal rules restrict any use of the information to criminally investigate or prosecute any alcohol or drug abuse patient.[facility] SystemIn the event this information is protected by the Federal Confidentiality of Alcohol and Drug Abuse Patient Records regulations: The Federal rules restrict any use of the information to criminally investigate or prosecute any alcohol or drug abuse patient.[facility] SystemIn the event this information is protected by the Federal Confidentiality of Alcohol and Drug Abuse Patient Records regulations: The Federal rules restrict any use of the information to criminally investigate or prosecute any alcohol or drug abuse patient.[facility] SystemIn the event this information is protected by the Federal Confidentiality of Alcohol and Drug Abuse Patient Records regulations: The Federal rules restrict any use of the information to criminally investigate or prosecute any alcohol or drug abuse patient.[facility] SystemIn the event this information is protected by the Federal Confidentiality of Alcohol and Drug Abuse Patient Records regulations: The Federal rules restrict any use of the information to criminally investigate or prosecute any alcohol or drug abuse patient.[facility] SystemIn the event this information is protected by the Federal Confidentiality of Alcohol and Drug Abuse Patient Records regulations: The Federal rules restrict any use of the information to criminally investigate or prosecute any alcohol or drug abuse patient.[facility] SystemIn the event this information is protected by the Federal Confidentiality of Alcohol and Drug Abuse Patient Records regulations: The Federal rules restrict any use of the information to criminally investigate or prosecute any alcohol or drug abuse patient.[facility] SystemIn the event this information is protected by the Federal Confidentiality of Alcohol and Drug Abuse Patient Records regulations: The Federal rules restrict any use of the information to criminally investigate or prosecute any alcohol or drug abuse patient.[facility] SystemIn the event this information is protected by the Federal Confidentiality of Alcohol and Drug Abuse Patient Records regulations: The Federal rules restrict any use of the information to criminally investigate or prosecute any alcohol or drug abuse patient.[facility] SystemIn the event this information is protected by the Federal Confidentiality of Alcohol and Drug Abuse Patient Records regulations: The Federal rules restrict any use of the information to criminally investigate or prosecute any alcohol or drug abuse patient.[facility] SystemIn the event this information is protected by the Federal Confidentiality of Alcohol and Drug Abuse Patient Records regulations: The Federal rules restrict any use of the information to criminally investigate or prosecute any alcohol or drug abuse patient.[facility] SystemIn the event this information is protected by the Federal Confidentiality of Alcohol and Drug Abuse Patient Records regulations: The Federal rules restrict any use of the information to criminally investigate or prosecute any alcohol or drug abuse patient.[facility] SystemIn the event this information is protected by the Federal Confidentiality of Alcohol and Drug Abuse Patient Records regulations: The Federal rules restrict any use of the information to criminally investigate or prosecute any alcohol or drug abuse patient.[facility] SystemIn the event this information is protected by the Federal Confidentiality of Alcohol and Drug Abuse Patient Records regulations: The Federal rules restrict any use of the information to criminally investigate or prosecute any alcohol or drug abuse patient.[facility] SystemIn the event this information is protected by the Federal Confidentiality of Alcohol and Drug Abuse Patient Records regulations: The Federal rules restrict any use of the information to criminally investigate or prosecute any alcohol or drug abuse patient.[facility] SystemIn the event this information is protected by the Federal Confidentiality of Alcohol and Drug Abuse Patient Records regulations: The Federal rules restrict any use of the information to criminally investigate or prosecute any alcohol or drug abuse patient.[facility] SystemIn the event this information is protected by the Federal Confidentiality of Alcohol and Drug Abuse Patient Records regulations: The Federal rules restrict any use of the information to criminally investigate or prosecute any alcohol or drug abuse patient.[facility] SystemIn the event this information is protected by the Federal Confidentiality of Alcohol and Drug Abuse Patient Records regulations: The Federal rules restrict any use of the information to criminally investigate or prosecute any alcohol or drug abuse patient.[facility] SystemIn the event this information is protected by the Federal Confidentiality of Alcohol and Drug Abuse Patient Records regulations: The Federal rules restrict any use of the information to criminally investigate or prosecute any alcohol or drug abuse patient.[facility] SystemIn the event this information is protected by the Federal Confidentiality of Alcohol and Drug Abuse Patient Records regulations: The Federal rules restrict any use of the information to criminally investigate or prosecute any alcohol or drug abuse patient.[facility] SystemIn the event this information is protected by the Federal Confidentiality of Alcohol and Drug Abuse Patient Records regulations: The Federal rules restrict any use of the information to criminally investigate or prosecute any alcohol or drug abuse patient.[facility] SystemIn the event this information is protected by the Federal Confidentiality of Alcohol and Drug Abuse Patient Records regulations: The Federal rules restrict any use of the information to criminally investigate or prosecute any alcohol or drug abuse patient.[facility] SystemIn the event this information is protected by the Federal Confidentiality of Alcohol and Drug Abuse Patient Records regulations: The Federal rules restrict any use of the information to criminally investigate or prosecute any alcohol or drug abuse patient.[facility] SystemIn the event this information is protected by the Federal Confidentiality of Alcohol and Drug Abuse Patient Records regulations: The Federal rules restrict any use of the information to criminally investigate or prosecute any alcohol or drug abuse patient.[facility] SystemIn the event this information is protected by the Federal Confidentiality of Alcohol and Drug Abuse Patient Records regulations: The Federal rules restrict any use of the information to criminally investigate or prosecute any alcohol or drug abuse patient.[facility] SystemIn the event this information is protected by the Federal Confidentiality of Alcohol and Drug Abuse Patient Records regulations: The Federal rules restrict any use of the information to criminally investigate or prosecute any alcohol or drug abuse patient.[facility] SystemIn the event this information is protected by the Federal Confidentiality of Alcohol and Drug Abuse Patient Records regulations: The Federal rules restrict any use of the information to criminally investigate or prosecute any alcohol or drug abuse patient.[facility] SystemIn the event this information is protected by the Federal Confidentiality of Alcohol and Drug Abuse Patient Records regulations: The Federal rules restrict any use of the information to criminally investigate or prosecute any alcohol or drug abuse patient.[facility] SystemIn the event this information is protected by the Federal Confidentiality of Alcohol and Drug Abuse Patient Records regulations: The Federal rules restrict any use of the information to criminally investigate or prosecute any alcohol or drug abuse patient.[facility] SystemIn the event this information is protected by the Federal Confidentiality of Alcohol and Drug Abuse Patient Records regulations: The Federal rules restrict any use of the information to criminally investigate or prosecute any alcohol or drug abuse patient.[facility] SystemIn the event this information is protected by the Federal Confidentiality of Alcohol and Drug Abuse Patient Records regulations: The Federal rules restrict any use of the information to criminally investigate or prosecute any alcohol or drug abuse patient.[facility] SystemIn the event this information is protected by the Federal Confidentiality of Alcohol and Drug Abuse Patient Records regulations: The Federal rules restrict any use of the information to criminally investigate or prosecute any alcohol or drug abuse patient.[facility] SystemIn the event this information is protected by the Federal Confidentiality of Alcohol and Drug Abuse Patient Records regulations: The Federal rules restrict any use of the information to criminally investigate or prosecute any alcohol or drug abuse patient.[facility] SystemIn the event this information is protected by the Federal Confidentiality of Alcohol and Drug Abuse Patient Records regulations: The Federal rules restrict any use of the information to criminally investigate or prosecute any alcohol or drug abuse patient.[facility] SystemIn the event this information is protected by the Federal Confidentiality of Alcohol and Drug Abuse Patient Records regulations: The Federal rules restrict any use of the information to criminally investigate or prosecute any alcohol or drug abuse patient.[facility] SystemIn the event this information is protected by the Federal Confidentiality of Alcohol and Drug Abuse Patient Records regulations: The Federal rules restrict any use of the information to criminally investigate or prosecute any alcohol or drug abuse patient.[facility] SystemIn the event this information is protected by the Federal Confidentiality of Alcohol and Drug Abuse Patient Records regulations: The Federal rules restrict any use of the information to criminally investigate or prosecute any alcohol or drug abuse patient.[facility] SystemIn the event this information is protected by the Federal Confidentiality of Alcohol and Drug Abuse Patient Records regulations: The Federal rules restrict any use of the information to criminally investigate or prosecute any alcohol or drug abuse patient.[facility] SystemIn the event this information is protected by the Federal Confidentiality of Alcohol and Drug Abuse Patient Records regulations: The Federal rules restrict any use of the information to criminally investigate or prosecute any alcohol or drug abuse patient.[facility] SystemIn the event this information is protected by the Federal Confidentiality of Alcohol and Drug Abuse Patient Records regulations: The Federal rules restrict any use of the information to criminally investigate or prosecute any alcohol or drug abuse patient.[facility] SystemIn the event this information is protected by the Federal Confidentiality of Alcohol and Drug Abuse Patient Records regulations: The Federal rules restrict any use of the information to criminally investigate or prosecute any alcohol or drug abuse patient.[facility] SystemIn the event this information is protected by the Federal Confidentiality of Alcohol and Drug Abuse Patient Records regulations: The Federal rules restrict any use of the information to criminally investigate or prosecute any alcohol or drug abuse patient.[facility] SystemIn the event this information is protected by the Federal Confidentiality of Alcohol and Drug Abuse Patient Records regulations: The Federal rules restrict any use of the information to criminally investigate or prosecute any alcohol or drug abuse patient.[facility] SystemIn the event this information is protected by the Federal Confidentiality of Alcohol and Drug Abuse Patient Records regulations: The Federal rules restrict any use of the information to criminally investigate or prosecute any alcohol or drug abuse patient.[facility] SystemIn the event this information is protected by the Federal Confidentiality of Alcohol and Drug Abuse Patient Records regulations: The Federal rules restrict any use of the information to criminally investigate or prosecute any alcohol or drug abuse patient.[facility] SystemIn the event this information is protected by the Federal Confidentiality of Alcohol and Drug Abuse Patient Records regulations: The Federal rules restrict any use of the information to criminally investigate or prosecute any alcohol or drug abuse patient.[facility] SystemIn the event this information is protected by the Federal Confidentiality of Alcohol and Drug Abuse Patient Records regulations: The Federal rules restrict any use of the information to criminally investigate or prosecute any alcohol or drug abuse patient.[facility] SystemIn the event this information is protected by the Federal Confidentiality of Alcohol and Drug Abuse Patient Records regulations: The Federal rules restrict any use of the information to criminally investigate or prosecute any alcohol or drug abuse patient.[facility] SystemIn the event this information is protected by the Federal Confidentiality of Alcohol and Drug Abuse Patient Records regulations: The Federal rules restrict any use of the information to criminally investigate or prosecute any alcohol or drug abuse patient.[facility] Reason for Visit (unrecogniz ed section and content) Reason Comments Joint Pain Specialty Diagnoses / Procedures Referred By Contac t Referred To Contact Diagnoses Rheumatoid arthritis involving both hands with positive rheumatoid factor (HCC) Procedures INJECTION, RENFLEXIS INJECTION, RENFLEXIS Robert Hinojosa MD [address] [place] [address] [facility] [address] [place] [address] Referral ID Status Reason Start Date Expiration Date Visits Requested Visits Authorized [id number] Authorized OON/Self Pay Override Patient Cleared INN/SMCP Payor Auth Obtained Patient Cleared - Admin/Chairm an/Director advise to proceed or did not respond 08/13/2021 08/03/2024 7 28 Reason Comments Chemotherapy Treatment Specialty Diagnoses / Procedures Referred By Contac t Referred To Contact Diagnoses Rheumatoid arthritis involving both hands with positive rheumatoid factor (HCC) Procedures INJECTION, ANTONETTEFLEXRoebrt Centeno MD [facility] [place] [address] [facility] [address] [place] [address] Referral ID Status Reason Start Date Expiration Date Visits Requested Visits Authorized [id number] Authorized OON/Self Pay Override Patient Cleared INN/SMCP Payor Auth Obtained Patient Cleared - Admin/Chairm an/Director advise to proceed or did not respond 08/13/2021 08/27/2023 7 21 Reason Comments Infusion Specialty Diagnoses / Procedures Referred By Contac t Referred To Contact Diagnoses Rheumatoid arthritis involving both hands with positive rheumatoid factor (HCC) Procedures Robert Hinojosa MD [address] [place] [address] [facility] [address] [place] [address] Referral ID Status Reason Start Date Expiration Date Visits Requested Visits Authorized [id number] Authorized OON/Self Pay Override Patient Cleared INN/SMCP Payor Auth Obtained Patient Cleared - Admin/Chairm an/Director advise to proceed 08/13/2021 08/13/2022 12 24 Specialty Diagnoses / Procedures Referred By Contac t Referred To Contact RHEUMATOLOGY Diagnoses Rheumatoid arthritis with rheumatoid factor of right hand without organ or systems involvement Procedures office visit Robert Farias MD [address] [place] [address] [address] [place] [address] Referral ID Status Reason Start Date Expiration Date Visits Requested Visits Authorized [id number] Pending Review OON/Self Pay Override 12/04/2021 03/04/2022 1 1 Reason Comments New Patient old records here Status Reason Specialty Diagnoses / Procedures Referred By Contact Referred To Contact Closed OON/Self Pay Override RHEUMATOLOGY Diagnoses Rheumatoid arthritis (HCC) Procedures EST PATIENT VISIT LEVEL 4 Office Visit Robert Farias [address] [place] [address] [facility] [address] [place] [address] Reason Comments Medication Authorization remicade Reason Comments Pending PA Renflexis fax pendin g with [facility] Reason Comments Phone Call Reason Comments Patient Update Referral ID Status Reason Start Date Expiration Date Visits Requested Visits Authorized [id number] Authorized OON/Self Pay Override Patient Cleared INN/SMCP Payor Auth Obtained 08/04/2020 08/04/2021 12 12 Reason Comments Hip Pain Reason Comments APPROVED Humira Pen APPROVED [id number] 07.04.2021 - 07.21.2022 with [facility]/cover my meds Reason Comments Refill Request Reason Comments PENDING Renflexis PENDING [facility] with office note pt scheduled Reason Onset Date Comments Refill Request 09/10/2021 Reason Comments Patient Question Reason Onset Date Comments Refill Request 09/29/2021 Specialty Diagnoses / Procedures Referred By Contac t Referred To Contact Diagnoses Rheumatoid arthritis involving both hands with positive rheumatoid factor (HCC) Procedures Renflexis Robert Farias MD [address] [id number] [facility] [address] [place] [address] Specialty Diagnoses / Procedures Referred By Contac t Referred To Contact RHEUMATOLOGY Diagnoses Rheumatoid arthritis (HCC) Procedures follow up Robert Farias MD [address] [id number] [facility] Priyank 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 [place] [address] Referral ID Status Reason Start Date Expiration Date Visits Requested Visits Authorized [id number] Pending Review OON/Self Pay Override 04/06/2022 10/03/2022 1 1 Specialty Diagnoses / Procedures Referred By Contac t Referred To Contact Diagnoses Rheumatoid arthritis involving both hands with positive rheumatoid factor (HCC) Procedures INJECTION, RENFLEXIS Renflexis Paul Fariasit, MD [address] [place] [address] [facility] [address] [place] [address] Referral ID Status Reason Start Date Expiration Date Visits Requested Visits Authorized [id number] Pending Review OON/Self Pay Override Patient Cleared INN/SMCP Payor Auth Obtained Patient Cleared - Admin/Chair man/Directo r advise to proceed or did not respond 08/13/2021 08/27/2023 7 21 Reason Onset Date Comments Refill Request 12/19/2022 Referral ID Status Reason Start Date Expiration Date Visits Requested Visits Authorized [id number] Pending Review OON/Self Pay Override 09/04/2022 03/03/2023 2 2 Reason Comments Medication Request Renflexis Order Reason Onset Date Comments Refill Request 02/01/2023 Specialty Diagnoses / Procedures Referred By Contac Referred To Contact RHEUMATOLOGY Diagnoses Rheumatoid arthritis with rheumatoid factor of right hand without organ or systems involvement Procedures FOLLOW-UP E-ASSESSMENT Robert Farias MD [address] [place] [address] Antonio Jackson [address] [place] [address] Referral ID Status Reason Start Date Expiration Date Visits Requested Visits Authorized [id number] Pending Review OON/Self Pay Override 05/04/2023 1 1 Reason Onset Date Comments Refill Request 04/24/2023 Reason Onset Date Comments Refill Request 06/05/2023 Reason Onset Date Comments Refill Request 07/25/2023 Reason Onset Date Comments Refill Request 08/02/2023 Reason Comments Medication Preauthorization Renflexis- S tow Approved [id number] [facility]/Faxed 08.04.23-08.03.24 Reason Comments Rheumatoid Arthritis Specialty Diagnoses / Procedures Referred By Conturiel t Referred To Contact RHEUMATOLOGY Diagnoses Rheumatoid arthritis with rheumatoid factor of right hand without organ or systems involvement Procedures FOLLOW-UP E-ASSESSMENT Robert Farias MD [facility] [place] [address] [place] [address] Referral ID Status Reason Start Date Expiration Date Visits Requested Visits Authorized [id number] Pending Review OON/Self Pay Override 05/08/2023 10/04/2023 1 1 Reason Onset Date Comments Refill Request 10/13/2023 Reason Onset Date Comments Refill Request 11/02/2023 Reason Onset Date Comments Refill Request 11/20/2023 Reason Onset Date Comments Refill Request 04/05/2024 Reason Comments RENFLEXIS - PENDING Kirill Contreras - PE NDING [id number] [facility] Specialty Diagnoses / Procedures Referred By Berenice t Referred To Contact Diagnoses Rheumatoid arthritis involving both hands with positive rheumatoid factor (HCC) Procedures INJECTION, RENFLEXIS Becca Garcia PA-C [address] [place] [address] Phone: tel: fax: Hematology/Oncology [address] [place] [address] Phone: tel: fax: Referral ID Status Reason Start Date Expiration Date Visits Requested Visits Authorized [id number] Authorized OON/Self Pay Override 09/13/2023 08/02/2024 2 6 Reason Comments Rheumatoid Arthritis Specialty Diagnoses / Procedures Referred By Contac t Referred To Contact RHEUMATOLOGY Diagnoses Rheumatoid arthritis with rheumatoid factor of right hand without organ or systems involvement Procedures FOLLOW-UP E-ASSESSMENT Robert Farias MD [address] [place] [address] Phone: tel: fax: [facility] General [place] [address] Phone: tel: fax: Referral ID Status Reason Start Date Expiration Date Visits Requested Visits Authorized [id number] New Request OON/Self Pay Override 02/05/2024 07/03/2024 1 1 Reason Comments RENFLEXIS - PENDING Renflexis, [place] - [place] NDING [id number] [employer] Specialty Diagnoses / Procedures Referred By Contac t Referred To Contact Diagnoses Rheumatoid arthritis involving both hands with positive rheumatoid factor (HCC) Procedures INJECTION, RENFLEXIS INJECTION, INFLECTRA Becca Garcia PA-C [address] [place] [address] Phone: tel: fax: Hematology/Oncology [address] [place] [address] Phone: tel: fax: Referral ID Status Reason Start Date Expiration Date Visits Requested Visits Authorized [id number] Authorized OON/Self Pay Override Patient Cleared - Admin/Chairm an/Director advise to proceed or did not respond 09/13/2023 10/28/2024 3 9 Reason Onset Date Comments Refill Request 08/13/2024 Reason Onset Date Comments Refill Request 10/07/2024 Reason Comments INFLECTRA - PENDING Inflectra, [place] - [place] NDING [id number] [facility]/Portal Reason Comments Rheumatoid Arthritis fu Specialty Diagnoses / Procedures Referred By Conturiel t Referred To Contact RHEUMATOLOGY Diagnoses Rheumatoid arthritis with rheumatoid factor of right hand without organ or systems involvement (HCC) Procedures FOLLOW-UP E-ASSESSMENT Robert Farias MD [address] [place] [address] Phone: tel: fax: Robert Farias MD [address] [place] [address] Phone: tel: fax: Referral ID Status Reason Start Date Expiration Date Visits Requested Visits Authorized [id number] New Request OON/Self Pay Override 06/14/2024 11/01/2024 2 2 Reason Comments Appointment Reason Comments INFLECTRA - PENDING Inflectra, [place] - [place] NDING [id number] [facility] Specialty Diagnoses / Procedures Referred By Contac t Referred To Contact Diagnoses Rheumatoid arthritis involving both hands with positive rheumatoid factor (HCC) Procedures INJECTION, RENFLEXIS INJECTION, INFLECTRA INJECTION, INFLECTRA Becca Garcia PA-C [address] [place] [address] Phone: tel: fax: Hematology/Oncology [address] [place] [address] Phone: tel: fax: Referral ID Status Reason Start Date Expiration Date Visits Requested Visits Authorized [id number] Authorized OON/Self Pay Override Patient Cleared - Admin/Chairm an/Director advise to proceed or did not respond 09/13/2023 10/22/2025 8 17 Reason Onset Date Comments Refill Request 11/11/2024 Care Teams (unrecognized sec tion and content) Team Status: Active Member Role Status Sakshi Greco MD Primary Care Provider Active Team Status: Inactive Member Role Status Sakshi Greco MD Primary Care Provider Active St art: January 31, 2024 End: January 31, 2024 Xiang Rogers CHASSIS ENGINEER, CHASSIS ENGINEER-C Attending Provider Active S tart: January 31, 2024 End: January 31, 2024 Xiang Rogers CHASSIS ENGINEER, CHASSIS ENGINEER-C Referring Provider Active S tart: January 31, [...] Provider Active S tart: May 27, 2024 Automation Controls Specialist Relationship Specialty Start Date End Date Edis Trejo [address] [place] [address] PCP - General Family Practice 04/07/20 Automation Controls Specialist Relationship Specialty Start Date End Date Edis Trejo [address] [place] [address] PCP - General Family Practice 04/07/20 Automation Controls Specialist Relationship Specialty Start Date End Date Edis Trejo [address] [place] [address] PCP - General Family Practice 04/07/20 Automation Controls Specialist Relationship Specialty Start Date End Date Edis Trejo [address] [place] [address] PCP - General Family Practice 04/07/20 Automation Controls Specialist Relationship Specialty Start Date End Date Edis Trejo [address] [place] [address] PCP - General Family Practice 04/07/20 Automation Controls Specialist Relationship Specialty Start Date End Date Edis Trejo [address] [place] [address] PCP - General Family Practice 04/07/20 Automation Controls Specialist Relationship Specialty Start Date End Date Edis Trejo [address] [place] [address] PCP - General Family Practice 04/07/20 Automation Controls Specialist Relationship Specialty Start Date End Date Edis Trejo [address] [place] [address] PCP - General Family Practice 04/07/20 Automation Controls Specialist Relationship Specialty Start Date End Date Edis Trejo [address] [place] [address] PCP - General Family Practice 04/07/20 Automation Controls Specialist Relationship Specialty Start Date End Date Edis Trejo [address] [place] [address] PCP - General Family Practice 04/07/20 Automation Controls Specialist Relationship Specialty Start Date End Date Edis Trejo [address] [place] [address] PCP - General Family Practice 04/07/20 Automation Controls Specialist Relationship Specialty Start Date End Date Edis Trejo [address] [place] [address] PCP - General Family Medicine 04/07/20 Automation Controls Specialist Relationship Specialty Start Date End Date Edis Trejo [address] [place] [address] PCP - General Family Medicine 04/07/20 Automation Controls Specialist Relationship Specialty Start Date End Date Edis Trejo [address] [place] [address] PCP - General Family Medicine 04/07/20 Automation Controls Specialist Relationship Specialty Start Date End Date Edis Trejo [address] [place] [address] PCP - General Family Medicine 04/07/20 Automation Controls Specialist Relationship Specialty Start Date End Date PadminiEdis, [address] [place] [address] PCP - General Family Medicine 04/07/20 Automation Controls Specialist Relationship Specialty Start Date End Date Padmini Edis Ford [address] [place] [address] PCP - General Family Medicine 04/07/20 Automation Controls Specialist Relationship Specialty Start Date End Date Padmini Edis Ford [address] [place] [address] PCP - General Family Medicine 04/07/20 Automation Controls Specialist Relationship Specialty Start Date End Date Padmini Edis Ford [address] [place] [address] PCP - General Family Medicine 04/07/20 Automation Controls Specialist Relationship Specialty Start Date End Date Padmini Edis Ford, DO [address] [place] [address] PCP - General Family Medicine 04/07/20 Team Status: Active Member Role Status Dates Dr. Jaren Huerta MD Family Provider Active Alisa Escobar DO Primary Care Provider Active Team Status: Inactive Member Role Status Dates Alisa Escobar DO Primary Care Provi lorna, Attending Provider, Referring Provider Active Automation Controls Specialist Relationship Specialty Start Date End Date Padmini Edis Ford, DO [address] [place] [address] PCP - General Family Medicine 04/07/20 Automation Controls Specialist Relationship Specialty Start Date End Date Padmini Edis Ford [address] [place] [address] PCP - General Family Medicine 04/07/20 Automation Controls Specialist Relationship Specialty Start Date End Date Edis Trejo DO [address] [place] [address] PCP - General Family Medicine 04/07/20 Automation Controls Specialist Relationship Specialty Start Date End Date Edis Trejo DO [address] [place] [address] PCP - General Family Medicine 04/07/20 Automation Controls Specialist Relationship Specialty Start Date End Date Edis Trejo DO [address] [place] [address] PCP - General Family Medicine 04/07/20 Automation Controls Specialist Relationship Specialty Start Date End Date Edis Trejo DO [address] [place] [address] PCP - General Family Medicine 04/07/20 Automation Controls Specialist Relationship Specialty Start Date End Date Edis Trejo DO [address] [place] [address] PCP - General Family Medicine 04/07/20 Team Status: Active Member Role Status Dates Alisa Escobar , Primary Care Provi lorna, Referring Provider, Other Provider Active Dr. Morgan Duarte , DO Attending Provider Active Automation Controls Specialist Relationship Specialty Start Date End Date Edis Trejo DO [address] [place] [address] PCP - General Family Medicine 04/07/20 Automation Controls Specialist Relationship Specialty Start Date End Date Edis Trejo DO [address] [place] [address] PCP - General Family Medicine 04/07/20 Automation Controls Specialist Relationship Specialty Start Date End Date Edis Trejo DO [address] [place] [address] (Work) PCP - General Family Medicine 04/07/20 Automation Controls Specialist Relationship Specialty Start Date End Date Edis Trejo DO [address] [place] [address] PCP - General Family Medicine 04/07/20 Automation Controls Specialist Relationship Specialty Start Date End Date Edis Trejo DO [address] [place] [address] PCP - General Family Medicine 04/07/20 Automation Controls Specialist Relationship Specialty Start Date End Date Edis Trejo DO [address] [place] [address] PCP - General Family Medicine 04/07/20 Automation Controls Specialist Relationship Specialty Start Date End Date Edis Trejo DO [address] [place] [address] PCP - General Family Medicine 04/07/20 Automation Controls Specialist Relationship Specialty Start Date End Date Edis Trejo DO [address] [place] [address] PCP - General Family Medicine 04/07/20 Automation Controls Specialist Relationship Specialty Start Date End Date Edis Trejo DO [address] [place] [address] PCP - General Family Medicine 04/07/20 Automation Controls Specialist Relationship Specialty Start Date End Date Edis Trejo DO [address] [place] [address] PCP - General Family Medicine 04/07/20 Automation Controls Specialist Relationship Specialty Start Date End Date Edis Trejo DO [address] [place] [address] PCP - General Family Medicine 04/07/20 Automation Controls Specialist Relationship Specialty Start Date End Date PadminiEdis keeneDO [address] [place] [address] PCP - General Family Medicine 04/07/20 Automation Controls Specialist Relationship Specialty Start Date End Date Padmini Edis FordDO [address] [place] [address] PCP - General Family Medicine 04/07/20 Automation Controls Specialist Relationship Specialty Start Date End Date Padmini Edis FordDO [address] [place] [address] PCP - General Family Medicine 04/07/20 Automation Controls Specialist Relationship Specialty Start Date End Date Padmini Edis FordDO [address] [place] [address] PCP - General Family Medicine 04/07/20 Automation Controls Specialist Relationship Specialty Start Date End Date Edis Trejo DO [address] [place] [address] PCP - General Family Medicine 04/07/20 Automation Controls Specialist Relationship Specialty Start Date End Date Paul Greco MD [address] [facility] [address] [place], [place] [id number] PCP - General Internal Medicine 09/29/23 Automation Controls Specialist Relationship Specialty Start Date End Date Paul Greco MD [address] [facility] [address] [place] [address] PCP - General Internal Medicine 09/29/23 Automation Controls Specialist Relationship Specialty Start Date End Date Paul Greco MD [address] [facility] [address] [place] [address] PCP - General Internal Medicine 09/29/23 Automation Controls Specialist Relationship Specialty Start Date End Date Paul Greco MD [address] [facility] [address] [place] [address] PCP - General Internal Medicine 09/29/23 Automation Controls Specialist Relationship Specialty Start Date End Date Paul Greco MD [address] [facility] [address] [place] [address] PCP - General Internal Medicine 09/29/23 Automation Controls Specialist Relationship Specialty Start Date End Date Paul Greco MD [address] [place] [address] [place] [address] PCP - General Internal Medicine 09/29/23 Automation Controls Specialist Relationship Specialty Start Date End Date Paul Greco MD [address] [facility] [address] [place] [address] PCP - General Internal Medicine 09/29/23 Automation Controls Specialist Relationship Specialty Start Date End Date Paul Greco MD [address] [facility] [address] [place] [address] PCP - General Internal Medicine 09/29/23 Automation Controls Specialist Relationship Specialty Start Date End Date Paul Greco MD [address] [place] [address] [place] [address] PCP - General Internal Medicine 09/29/23 Automation Controls Specialist Relationship Specialty Start Date End Date Paul Greco MD [address] [facility] [address] [place], [place] [address] PCP - General Internal Medicine 09/29/23 Team [...] January 24, 2024 End: January 24, 2024 Automation Controls Specialist Relationship Specialty Start Date End Date Paul Greco MD [address] [facility] [address] [place] [address] PCP - General Internal Medicine 09/29/23 Automation Controls Specialist Relationship Specialty Start Date End Date Paul Greco MD [address] [facility] [address] [place] [address] PCP - General Internal Medicine 09/29/23 Team [...] July 03, 2024 Dr. Corey De Jesus , Emergency Provider Active Start: July 03, 2024 End: July 03, 2024 Team Status: Inactive Member Role Status Sakshi Greco MD Primary Care Provider Active St art: July 25, 2024 End: July 25, 2024 Dr. Ranjit Garces MD Emergency Provider Active Sta rt: July 25, 2024 End: July 25, 2024 Team Status: Inactive Member Role Status Sakshi Greco MD Primary Care Provider Active St art: July 30, 2024 End: July 30, 2024 Paul Greco MD Referring Provider Active Start : July 30, 2024 End: July 30, 2024 Ambreen Delaney CHASSIS ENGINEER, CHASSIS ENGINEER-C Attending Provider Active Start: July 30, 2024 End: July 30, 2024 Automation Controls Specialist Relationship Specialty Start Date End Date Paul Greco MD [address] [place] [address] PCP - General Internal Medicine 09/29/23 Team Status: Inactive Member Role Status Sakshi Greco MD Primary Care Provider Active St art: July 25, 2024 End: July 25, 2024 Dr. Ranjit Garces MD Attending Provider Active Sta rt: July 25, 2024 End: July 25, 2024 Dr. Ranjit Garces MD Emergency Provider Active Sta rt: July 25, 2024 End: July 25, 2024 Team Status: Inactive Member Role Status Sakshi Greco MD Primary Care Provider Active St art: August 06, 2024 End: August 06, 2024 Ambreen Delaney NP, CHASSIS ENGINEER-C Attending Provider Active Start: August 06, 2024 End: August 06, 2024 Ambreen Delaney CHASSIS ENGINEER, CHASSIS ENGINEER-C Referring Provider Active Start: August 06, 2024 End: August 06, 2024 Team Status: Inactive Member Role Status Dates Paul Greco MD Primary Care Provider Active St art: August 13, 2024 End: August 13, 2024 Ambreen Delaney CHASSIS ENGINEER, CHASSIS ENGINEER-C Attending Provider Active Start: August 13, 2024 End: August 13, 2024 Ambreen Delaney CHASSIS ENGINEER, CHASSIS ENGINEER-C Referring Provider Active Start: August 13, 2024 End: August 13, 2024 Team Status: Inactive Member Role Status Dates Paul Greco MD Primary Care Provider Active St art: August 23, 2024 End: August 23, 2024 Paul Greco MD Attending Provider Active Start : August 23, 2024 End: August 23, 2024 Paul Greco MD Referring Provider Active Start : August 23, 2024 End: August 23, 2024 Automation Controls Specialist Relationship Specialty Start Date End Date Paul Greco MD [address] [facility] [address] [place], [place] [address] PCP - General Internal Medicine 09/29/23 Automation Controls Specialist Relationship Specialty Start Date End Date Paul Greco MD [address] [facility] [address] [place], [place] [address] PCP - General Internal Medicine 09/29/23 Robert Farias MD [address] [place], [place] [address] Rheumatology 10/04/24 Automation Controls Specialist Relationship Specialty Start Date End Date Paul Greco MD [address] [facility] [address] [place], [place] [address] PCP - General Internal Medicine 09/29/23 Robert Farias MD [address] [place] [address] Rheumatology 10/04/24 Automation Controls Specialist Relationship Specialty Start Date End Date Paul Greco MD [address] [facility] [address] [place] [address] PCP - General Internal Medicine 09/29/23 Robert Farias MD [address] [place] [address] Rheumatology 10/04/24 Automation Controls Specialist Relationship Specialty Start Date End Date Paul Greco MD Yolette Michaeln [facility] [address] [place] [address] PCP - General Internal Medicine 09/29/23 Robert Farias MD [address] [place] [address] Rheumatology 10/04/24 Team Status: Active Member Role/Relationship Status Sakshi Greco MD Primary Care Provider Active Team Status: Inactive Member Role/Relationship Status Sakshi Greco MD Primary Care Provider Active St art: July 03, 2024 End: July 03, 2024 Dr. Corey De Jesus DO Attending Provider Active Start: July 03, 2024 End: July 03, 2024 Dr. Corey De Jesus , Emergency Provider Active Start: July 03, 2024 End: July 03, 2024 Team Status: Inactive Member Role/Relationship Status Sakshi Greco MD Primary Care Provider Active St art: July 25, 2024 End: July 25, 2024 Dr. Ranjit Garces MD Attending Provider Active Sta rt: July 25, 2024 End: July 25, 2024 Dr. Ranjit Garces MD Emergency Provider Active Sta rt: July 25, 2024 End: July 25, 2024 Team Status: Inactive Member Role/Relationship Status Sakshi Greco MD Primary Care Provider Active St art: July 30, 2024 End: July 30, 2024 Paul Greco MD Referring Provider Active Start : July 30, 2024 End: July 30, 2024 Ambreen Delaney CHASSIS ENGINEER, CHASSIS ENGINEER-C Attending Provider Active Start: July 30, 2024 End: July 30, 2024 Team Status: Inactive Member Role/Relationship Status Dates Paul Greco MD Primary Care Provider Active St art: August 06, 2024 End: August 06, 2024 Ambreen Delaney CHASSIS ENGINEER, CHASSIS ENGINEER-C Attending Provider Active Start: August 06, 2024 End: August 06, 2024 Ambreen Delaney CHASSIS ENGINEER, CHASSIS ENGINEER-C Referring Provider Active Start: August 06, 2024 End: August 06, 2024 Team Status: Inactive Member Role/Relationship Status Dates Paul Greco MD Primary Care Provider Active St art: August 13, 2024 End: August 13, 2024 Ambreen Delaney CHASSIS ENGINEER, CHASSIS ENGINEER-C Attending Provider Active Start: August 13, 2024 End: August 13, 2024 Ambreen Delaney CHASSIS ENGINEER, CHASSIS ENGINEER-C Referring Provider Active Start: August 13, 2024 End: August 13, 2024 Team Status: Inactive Member Role/Relationship Status Dates Paul Greco MD Primary Care Provider Active St art: August 23, 2024 End: August 23, 2024 Paul Greco MD Attending Provider Active Start : August 23, 2024 End: August 23, 2024 Paul Greco MD Referring Provider Active Start : August 23, 2024 End: August 23, 2024 Team Status: Inactive Member Role/Relationship Status Dates Paul Greco MD Primary Care Provider Active St art: October 29, 2024 End: October 29, 2024 Paul Greco MD Referring Provider Active Start : October 29, 2024 End: October 29, 2024 Ambreen Delaney CHASSIS ENGINEER, CHASSIS ENGINEER-C Attending Provider Active Start: October 29, 2024 End: October 29, 2024 Automation Controls Specialist Relationship Specialty Start Date End Date Paul Greco MD [address] [address] PCP - General Internal Medicine 09/29/23 Robert Farias MD [address] [place], [place] [id number] Rheumatology 10/04/24 Automation Controls Specialist Relationship Specialty Start Date End Date Paul Greco MD [address] [facility] [address] [place] [address] PCP - General Internal Medicine 09/29/23 Robert Farias MD [address] [place], [place] [id number] Rheumatology 10/04/24 Automation Controls Specialist Relationship Specialty Start Date End Date Paul Greco MD [address] [facility] [address] [place] [address] PCP - General Internal Medicine 09/29/23 Robert Farias MD [address] [place] [address] Rheumatology 10/04/24 Automation Controls Specialist Relationship Specialty Start Date End Date Paul Greco MD [address] [facility] [address] [place] [address] PCP - General Internal Medicine 09/29/23 Robert Farias MD [address] [place] [address] Rheumatology 10/04/24 Goals (unrecognized section and content) Goals may be documented in a n alternate sectionGoals may be documented in an alternate sectionGoals may be documented in an alternate sectionGoals may be documented in an alternate section INFORMATION SOURCE (unrecogn ized section and content) DATE CREATED AUTHOR 08/15/2022 [facility] DATE CREATED AUTHOR AUTHOR'S ORGANIZ ATION 10/30/2024 [facility] DATE CREATED AUTHOR AUTHOR'S ORGANIZ ATION 12/22/2024 [facility] DATE CREATED AUTHOR AUTHOR'S ORGANIZ ATION 01/03/2025 [facility] Inactive Administered Medications - up to 3 [...] BE BASED ON THE PRIMARY CLINICAL RECORDS. [employer] [facility]. provides no warranty or guarantee of the accuracy or completeness of information in this document.
== END | disposition home or self-care (01) ==
LOC: MTRAD 14:29
PROVIDERS: PCP Family Medicine
DX: M54.2 Cervicalgia (principal); M06.9 Rheumatoid arthritis, unspecified; R51.9 Headache, unspecified
CPT/HCPCS: 72052

== ENCOUNTER → 2025-02-26 | Outpatient (CLI) | payer OTHER, SELFPAY ==
--- OUTSIDE RECORDS SUMMARY | 2025-02-26 07:47 | XMS RPT_ITS | CCD ---
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 Jose Mondragon MD Referring Provider Roof COMPRESSOR MECHANIC-CXiang Attending Provider Roof COMPRESSOR MECHANIC-C, Xiang Barger Referring Provider Paul Greco MD [...] Unavailable Angus DORMAN, Chalon Primary Care Provider [phone] Angus DORMAN, Chalon Referring Provider [phone] Angus, Chalon Primary Care Unavailable Rhett COMPRESSOR MECHANIC, Ambreen Attending Unavailable Rhett COMPRESSOR MECHANIC, Ambreen Referring Unavailable Angus, Chalon Primary Care Unavailable Giancarlo, Jose Referring Unavailable Giancarlo, Jose Attending Unavailable Angus, Chalon Primary Care Unavailable Giancarlo, Jose Referring Unavailable Giancarlo, Jose Attending Unavailable Angus, Chalon Primary Care Unavailable Roof COMPRESSOR MECHANIC, Xiang H Referring Unavailable Roof COMPRESSOR MECHANIC, Xiang H Attending Unavailable Angus, Chalon Primary Care Unavailable Giancarlo, Jose Referring Unavailable Giancarlo, Jose Attending Unavailable Angus, Chalon Primary Care Unavailable Angus, Chalon Attending Unavailable Angus, Chalon Referring Unavailable Angus, Chalon Primary Care Unavailable Zeke Silva Consulting Unavailable Zeke Silva Admitting Unavailable Natalie [...] Primary Care Unavailable Andressa Haney Attending Unavailable Rhett COMPRESSOR MECHANIC, Ambreen Attending Unavailable Rhett COMPRESSOR MECHANIC, Ambreen Referring Unavailable Angus, Chalon Primary Care [...] Ambreen Delaney NP Attending Unavailable Angus, Chalon Referring Unavailable Angus, [...] Meperidine Drug Allergy 1 Other: See Comments [facility] Sulfonamides (antibiotic) (9 sources) Sulfonamides (Antibiotic) Drug Allergy 1 GI Upset [facility] (20 sources) Meperidine; Translations: [MEPERIDINE] Drug Allergy 1 Other: See Comments [facility] (20 sources) Sulfonamides (Antibiotic); Translations: [SULFA (SULFONAMIDE ANTIBIOTICS)] Drug Allergy 1 GI Upset [facility] (7 sources) Sulfonamides (Antibiotic) Propensity to adverse reactions 5 Abd cramps/diarrhea [facility] (1 source) Meperidine Drug Allergy 5 [facility] (1 source) Sulfonamides (Antibiotic) Drug allergy (disorder) 5 [facility] Medications Current Medications Medication Drug [...] Start: 05-22-2020 take 1 puff(s) by mo [facility] every six hours as needed albuterol [...] Administer with 0.2 micron filter., Medication Substitution: [facility] preferred product has been replaced with the insurance mandated product Start: 09-27-2024 End: 09-27-2024 400 mg (rounded from 439.5 m g = 5 mg/kg/dose 87.9 kg), INTRAVENOUS, at 83.33-250 mL/hr, Administer over 1-3 Hours, ONCE, 1 dose, On Mon09/27/24 at 1330, Total Volume: = 250 mL REFRIG EXP: 10/07/24 1400 Administer with 0.2 micron filter., Medication Substitution: [facility] preferred product has been replaced with the insurance mandated product Start: 08-09-2024 End: 08-09-2024 400 mg (rounded from 426 mg = 5 mg/kg/dose 85.2 kg), INTRAVENOUS, at 83.33-250 mL/hr, Administer over 1-3 Hours, ONCE, 1 dose, On Mon08/09/24 at 1400, Total Volume: = 250 mL REFRIG EXP: 08/19/24 1400 Administer with 0.2 micron filter., Medication Substitution: [facility] preferred product has been replaced with the insurance mandated product ipratropium bromide 0.042 mg/actuat metered dose nasal spray (7 sources) Anticholinergic Start: 01-11-2024 End: 07-30-2024 Ipratropium [place] 42 mcg (0.06 %) spray,non-aerosol Discontinued 2 [...] on above: TAKE 1 CAPSULE BY [facility] EVERY DAY BEFORE A MEAL potassium chloride [...] sources) Taking high risk medication; Translations: [Other care home (current) drug therapy] 06-14-2024 Episodic Other and [...] 05-27-2024 Episodic Other aftercare (1 source) 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; Translations: [High risk [...] Ab pattern (S) [Interp] Nuclear homogeneous Normal [facility] Comment on above: Order Comment: Matt patricio Type: BLOOD SPECIMEN Ordering Facility: [facility] Address: [address] [place] [address] Performed By: #### 5 7021-8 #### [facility] CLIA [id number] [address] [place] [address] [place] Nuclear Ab Ql (S) Positive Abnormal Negative [facility] Comment on above: Order Comment: Matt patricio Type: BLOOD SPECIMEN Ordering Facility: [facility] Address: [address] [place] [address] Result Comment: Anti -nuclear antibody test is used as an aid in diagnosis of systemic autoimmune diseases. Where positive and clinically warranted, follow-up using disease-specific testing is recommended. Low positive titers are not uncommon with advanced age, certain chronic infections, and malignancies among others. Test methodology: Indirect fluorescence immunoassay (IFA) using HEp-2 cells. 1:160 Performed By: #### 5 7021-8 #### [facility] CLIA [id number] [address] [place] [address] [place] BETA 2 GLYCOPROTEIN, IGGon 0 11-08-2024 Beta 2 glycoprotein 1 IgG IA Qn <9 Normal <20 [facility] Comment on above: Order Comment: Matt patricio Type: BLOOD SPECIMEN Ordering Facility: [facility] Address: [address] [place] [address] Result Comment: <20 [facility]U Negative 20-80 [facility] Low Positive >80 [facility] High Positive These results were obtained with the [employer] QUANTA Lite B2 GPI IgG DEREK. B2 GPI IgG values obtained with different manufacturers' assay methods may not be used interchangeably. The magnitude of the reported IgG levels cannot be correlated to an endpoint titer. Performed By: #### 4 537-7 #### [facility] CLIA [id number] [address] [place] [address] BETA 2 GLYCOPROTEIN, IGMon 0 11-08-2024 Beta 2 glycoprotein 1 IgM IA Qn <9 Normal <20 [facility] Comment on above: Order Comment: Matt patricio Type: BLOOD SPECIMEN Ordering Facility: [facility] Address: [address] [place] [address] Result Comment: <20 [facility] Negative 20-80 [facility] Low Positive >80 [facility] High positive These results were obtained with the [employer] QUANTA Lite B2 GPI IgM DEREK. B2 GPI IgM values obtained with different manufacturers' assay methods may not be used interchangeably. The magnitude of the reported IgM levels cannot be correlated to an endpoint titer. Performed By: #### 4 537-7 #### [facility] CLIA [id number] [address] [place] [address] BLOOD TB SCREENon 11-08-2024 M. tuberculosis tuberculin stim IFN-g Ql (Bld) Negative Normal [facility] Comment on above: Order Comment: Matt patricio Type: BLOOD SPECIMEN Ordering Facility: [facility] Address: [address] [place] [address] Performed By: #### 4 537-7 #### [facility] CLIA [id number] [address] [place] [address] [place] MITOGEN MINUS NIL >9.93 Normal >=0.50 [facility] Comment on above: Order Comment: Speci men Type: BLOOD SPECIMEN Ordering Facility: [facility] Address: [address] [place] [address] Performed By: #### 4 537-7 #### [facility] CLIA [id number] [address] [place] [address] [place] TB GAMMA INTERPRETATION Infection with M . tuberculosis complex is unlikely. If latent tuberculosis infection is highly suspected, a negative result does not rule out the infection. Specimens from immunocompromised patients and those <5 years of age may show false negative results. In case of a contact investigation, please repeat 8-12 weeks after a known exposure. Normal [facility] Comment on above: Order Comment: Speci men Type: BLOOD SPECIMEN Ordering Facility: [facility] Address: [address] [place] [address] Performed By: #### 4 537-7 #### [facility] CLIA [id number] [address] [place] [address] [place] TB NIL 0.07 IU/mL Normal <=8.00 [facility] Comment on above: Order Comment: Speci men Type: BLOOD SPECIMEN Ordering Facility: [facility] Address: [address] [place] [address] Performed By: #### 4 537-7 #### [facility] CLIA [id number] [address] [place] [address] [place] TB1 AG MINUS NIL 0.00 IU/mL Normal <0.35 [facility] Comment on above: Order Comment: Speci men Type: BLOOD SPECIMEN Ordering Facility: [facility] Address: [address] [place] [address] Performed By: #### 4 537-7 #### [facility] CLIA [id number] [address] [place] [address] [place] TB2 AG MINUS NIL <0.00 Normal <0.35 [facility] Comment on above: Order Comment: Speci men Type: BLOOD SPECIMEN Ordering Facility: [facility] Address: [address] [place] [address] Performed By: #### 4 537-7 #### [facility] CLIA [id number] [address] [place] [address] [place] C3 SerPl-mCncon 11-08-2024 Complement C3 [Mass/Vol] 156 mg/dL Normal 86-166 [facility] Comment on above: Order Comment: Speci men Type: BLOOD SPECIMEN Ordering Facility: [facility] Address: [address] [place] [address] Performed By: #### 4 485-9, 4498-2 #### [facility] CLIA [id number] [address] [place] [address] [place] C4 SerPl-mCncon 11-08-2024 Complement C4 [Mass/Vol] 15 mg/dL Normal 13-46 [facility] Comment on above: Order Comment: Speci men Type: BLOOD SPECIMEN Ordering Facility: [facility] Address: [address] [place] [address] Performed By: #### 4 485-9, 4498-2 #### [facility] CLIA [id number] [address] [place] [address] [place] CARDIOLIPIN IGG ABSon 2024 Cardiolipin IgG IA Qn (S) <9.0 Normal <15.0 [facility] Comment on above: Order Comment: Speci men Type: BLOOD SPECIMEN Ordering Facility: [facility] Address: [address] [place] [address] Result Comment: <15 GPL Negative 15-20 GPL Indeterminate >20 GPL Positive The following results were obtained with the [employer] QUANTA Lite VISHNU IgG III DEREK. Cardiolipin IgG values obtained with the different manufacturers' assay methods may not be used interchangeably. The magnitude of the reported IgG levels cannot be correlated to an endpoint titer. Performed By: #### 4 537-7 #### [facility] CLIA [id number] [address] CARDIOLIPIN IGM ABSon 2024 Cardiolipin IgM IA Qn (S) <9.0 Normal <12.5 [facility] Comment on above: Order Comment: Speci men Type: BLOOD SPECIMEN Ordering Facility: [facility] Address: [address] [place] [address] Result Comment: <12. 5 MPL Negative 12.5-20 MPL Indeterminate >20 MPL Positive The following results were obtained with the [employer] Lite VISHNU IgM III DEREK. Cardiolipin IgM values obtained with the different manufacturers' assay methods may not be used interchangeably. The magnitude of the reported IgM levels cannot be correlated to an endpoint titer. ??? Performed By: #### 4 537-7 #### [facility] CLIA [id number] [address] [place] [address] [place] [facility] CBC W Auto Differential pane l (Bld)on 11-08-2024 Basophils (Bld) [#/Vol] [facility] Basophils/100 WBC (Bld) 0.3 % [facility] Differential cell count method Nom (Bld) Auto [facility] Eosinophils (Bld) [#/Vol] 0.22 10*3/uL [facility] Eosinophils/100 WBC (Bld) 3.0 % [facility] Erythrocyte distribution width (RBC) [Ratio] 16.5 % High 11.5 - 15.0 % [facility] Hematocrit (Bld) [Volume fraction] 38.8 % 36.0 - 46.0 % [facility] Hemoglobin (Bld) [Mass/Vol] 12.5 g/dL 11.5 - 15.5 g/dL [facility] Immature granulocytes (Bld) [#/Vol] 0.03 10*3/uL [facility] Immature granulocytes/100 WBC (Bld) 0.4 % [facility] Interpretation and review of laboratory results Abnormal [facility] Lymphocytes (Bld) [#/Vol] 2.17 10*3/uL [facility] Lymphocytes/100 WBC (Bld) 29.3 % [facility] MCH (RBC) [Entitic mass] 27.8 pg 26.0 - 34.0 pg [facility] MCHC (RBC) [Mass/Vol] 32.2 g/dL 30.5 - 36.0 g/dL [facility] MCV (RBC) [Entitic vol] 86.4 fL 80.0 - 100.0 fL [facility] Monocytes (Bld) [#/Vol] 0.48 10*3/uL [facility] Monocytes/100 WBC (Bld) 6.5 % C [facility] Neutrophils (Bld) [#/Vol] 4.48 10*3/uL [facility] Neutrophils/100 WBC (Bld) 60.5 % [facility] Nucleated RBC (Bld) [#/Vol] NINF [facility] Nucleated RBC/100 WBC (Bld) [Ratio] 0.0 % /100 WBC [facility] Platelet mean volume (Bld) [Entitic vol] 10.3 fL 9.0 - 12.7 fL [facility] Platelets (Bld) [#/Vol] 215 10*3/uL [facility] RBC (Bld) [#/Vol] 4.49 10*6/uL 3.90 - 5.2 0 m/uL [facility] WBC (Bld) [#/Vol] 7.40 10*3/uL [facility] Basophils (Bld) [#/Vol] 10*3/uL Normal <0.11 [place] Comment on above: Order Comment: Speci men Type: BLOOD SPECIMEN Ordering Facility: [facility] Address: [address] [place] [address] Performed By: #### 5 7021-8 #### [employer] [facility] CLIA [id number] [address] Basophils/100 WBC (Bld) 0.3 % Normal [place] Comment on above: Order Comment: Speci men Type: BLOOD SPECIMEN Ordering Facility: [facility] Address: [address] [place] [address] Performed By: #### 5 7021-8 #### [facility] CLIA [id number] [address] Differential cell count method Nom (Bld) Auto Normal [facility] Comment on above: Order Comment: Speci men Type: BLOOD SPECIMEN Ordering Facility: [facility] Address: [address] [place] [address] Performed By: #### 5 7021-8 #### [facility] CLIA [id number] [address] Eosinophils (Bld) [#/Vol] 0.22 10*3/uL Normal <0.46 [facility] Comment on above: Order Comment: Speci men Type: BLOOD SPECIMEN Ordering Facility: [facility] Address: [facility] [place] [address] Performed By: #### 5 7021-8 #### [facility] CLIA [id number] [address] Eosinophils/100 WBC (Bld) 3.0 % Normal [facility] Comment on above: Order Comment: Speci men Type: BLOOD SPECIMEN Ordering Facility: [facility] Address: [address] [place] [address] Performed By: #### 5 7021-8 #### [facility] CLIA [id number] [address] [place] Erythrocyte distribution width (RBC) [Ratio] 16.5 % High 11.5-15.0 [facility] Comment on above: Order Comment: Speci men Type: BLOOD SPECIMEN Ordering Facility: [facility] Address: [address] [place] [address] Performed By: #### 5 7021-8 #### [facility] CLIA [id number] [address] Hematocrit (Bld) [Volume fraction] 38.8 % Normal 36.0-46.0 [facility] Comment on above: Order Comment: Speci men Type: BLOOD SPECIMEN Ordering Facility: [facility] Address: [address] [place] [address] Performed By: #### 5 7021-8 #### [facility] CLIA [id number] [address] [place] Hemoglobin (Bld) [Mass/Vol] 12.5 g/dL Normal 11.5-15.5 [facility] Comment on above: Order Comment: Speci men Type: BLOOD SPECIMEN Ordering Facility: [facility] Address: [address] [place] [address] Performed By: #### 5 7021-8 #### [facility] CLIA [id number] [address] Immature granulocytes (Bld) [#/Vol] 0.03 10*3/uL Normal <0.10 [facility] Comment on above: Order Comment: Speci men Type: BLOOD SPECIMEN Ordering Facility: [facility] Address: [address] [place] [address] Performed By: #### 5 7021-8 #### [facility] CLIA [id number] [address] Immature granulocytes/100 WBC (Bld) 0.4 % Normal [facility] Comment on above: Order Comment: Speci men Type: BLOOD SPECIMEN Ordering Facility[facility] Address: [address] [place] [address] Performed By: #### 5 7021-8 #### [facility] CLIA [id number] [address] Lymphocytes (Bld) [#/Vol] 2.17 10*3/uL Normal 1.00-4.00 [facility] Comment on above: Order Comment: Speci men Type: BLOOD SPECIMEN Ordering Facility: [facility] Address: [address] [place] [address] Performed By: #### 5 7021-8 #### [facility] CLIA [id number] [address] Lymphocytes/100 WBC (Bld) 29.3 % Normal [facility] Comment on above: Order Comment: Speci men Type: BLOOD SPECIMEN Ordering Facility: [facility] Address: [address] [place] [address] Performed By: #### 5 7021-8 #### [facility] CLIA [id number] [address] [place] [address] [place] MCH (RBC) [Entitic mass] 27.8 pg Normal 26.0-34.0 [facility] Comment on above: Order Comment: Speci men Type: BLOOD SPECIMEN Ordering Facility[facility] Address: [address] [place] [address] Performed By: #### 5 7021-8 #### [facility] CLIA [id number] [address] OF [facility] MCHC (RBC) [Mass/Vol] 32.2 g/dL Normal 30.5-36.0 [facility] Comment on above: Order Comment: Speci men Type: BLOOD SPECIMEN Ordering Facility[facility] Address: [address] [place] [address] Performed By: #### 5 7021-8 #### [facility] CLIA [id number] [address] MCV (RBC) [Entitic vol] 86.4 fL Normal 80.0-100.0 [place] Comment on above: Order Comment: Speci men Type: BLOOD SPECIMEN Ordering Facility[facility] Address: [address] [place] [address] Performed By: #### 5 7021-8 #### [facility] CLIA [id number] [address] Monocytes (Bld) [#/Vol] 0.48 10*3/uL Normal <0.87 [facility] Comment on above: Order Comment: Speci men Type: BLOOD SPECIMEN Ordering Facility[facility] Address: [address] [place] [address] Performed By: #### 5 7021-8 #### [facility] CLIA [id number] [address] Monocytes/100 WBC (Bld) 6.5 % Normal [place] Comment on above: Order Comment: Speci men Type: BLOOD SPECIMEN Ordering Facility[facility] Address: [address] [place] [address] Performed By: #### 5 7021-8 #### [facility] CLIA [id number] [address] [place] [address] [place] Neutrophils (Bld) [#/Vol] 4.48 10*3/uL Normal 1.45-7.50 [facility] Comment on above: Order Comment: Speci men Type: BLOOD SPECIMEN Ordering Facility[facility] Address: [address] [place] [address] Performed By: #### 5 7021-8 #### [facility] CLIA [id number] [address] [place] Neutrophils/100 WBC (Bld) 60.5 % Normal [facility] Comment on above: Order Comment: Speci men Type: BLOOD SPECIMEN Ordering Facility[facility] Address: [address] [place] [address] Performed By: #### 5 7021-8 #### [facility] CLIA [id number] [address] [place] Nucleated RBC (Bld) [#/Vol] 10*3/uL Normal <0.01 [facility] Comment on above: Order Comment: Speci men Type: BLOOD SPECIMEN Ordering Facility[facility] Address: [address] [place] [address] Performed By: #### 5 7021-8 #### [facility] CLIA [id number] [address] [place] Nucleated RBC/100 WBC (Bld) [Ratio] 0.0 /100 WBC Normal [facility] Comment on above: Order Comment: Speci men Type: BLOOD SPECIMEN Ordering Facility[facility] Address: [address] [place] [address] Performed By: #### 5 7021-8 #### [facility] CLIA [id number] [address] [place] Platelet mean volume (Bld) [Entitic vol] 10.3 fL Normal 9.0-12.7 [facility] Comment on above: Order Comment: Speci men Type: BLOOD SPECIMEN Ordering Facility[facility] Address: [address] [place] [address] Performed By: #### 5 7021-8 #### [facility] CLIA [id number] [address] Platelets (Bld) [#/Vol] 215 10*3/uL Normal 150-400 [facility] Comment on above: Order Comment: Speci men Type: BLOOD SPECIMEN Ordering Facility[facility] Address: [address] [place] [address] Performed By: #### 5 7021-8 #### [facility] CLIA [id number] [address] [place] RBC (Bld) [#/Vol] 4.49 10*6/uL Normal 3.90-5.20 [facility] Comment on above: Order Comment: Speci men Type: BLOOD SPECIMEN Order[facility] Facility[facility] Address: [address] [place] [address] Performed By: #### 5 7021-8 #### [facility] CLIA [id number] [address] OF [facility] WBC (Bld) [#/Vol] 7.40 10*3/uL Normal 3.70-11.00 [facility] Comment on above: Order Comment: Speci men Type: BLOOD SPECIMEN Ordering Facility[facility] Address: [address] [place] [address] Performed By: #### 5 7021-8 #### [facility] CLIA [id number] [address] OF [facility] Cardiolipin IgA Ser IA-aCnco n 11-08-2024 Cardiolipin IgA IA Qn (S) <9.0 Normal <12.0 [facility] Comment on above: Order Comment: Speci men Type: BLOOD SPECIMEN Ordering Facility[facility] Address: [address] [place] [address] Result Comment: <12 APL Negative 12-20 APL Indeterminate >20 APL Positive The following results were obtained with the [employer] Lite VISHNU IgA III DEREK. Cardiolipin IgA values obtained with the different manufacturers' assay methods may not be used interchangeably. The magnitude of the reported IgA levels cannot be correlated to an endpoint titer. Performed By: #### 5 076-5, SHAWN POLANCO, CLARITA, BLUEM #### [facility] CLIA [id number] [address] [place] [address] [facility] Comprehensive metabolic 2000 panelon 11-08-2024 Albumin [Mass/Vol] 4.3 g/dL 3.9 - 4.9 g/dL [facility] ALP [Catalytic activity/Vol] 76 U/L 34 - 123 U/L [facility] ALT With P-5'-P [Catalytic activity/Vol] 26 U/L 7 - 38 U/L [facility] Anion gap [Moles/Vol] 13 mmol/L 8 - 15 mmol/L [facility] AST With P-5'-P [Catalytic activity/Vol] 27 U/L 13 - 35 U/L [facility] Bilirubin [Mass/Vol] 0.4 mg/dL 0.2 - 1 .3 mg/dL [facility] Calcium [Mass/Vol] 8.9 mg/dL 8.5 - 10. 2 mg/dL [facility] Chloride [Moles/Vol] 104 mmol/L 98 - 10 7 mmol/L [facility] CO2 [Moles/Vol] 23 mmol/L 22 - 30 mmol/L [facility] Creatinine [Mass/Vol] 0.61 mg/dL 0.58 - 0.96 mg/dL [facility] GFR/1.73 sq M.predicted among non-blacks MDRD (S/P/Bld) [Vol rate/Area] 100 mL/min/{1.73_m2} - PINF [facility] Comment on above: Estimated Glomerular Filtration [...] 252 mg/dL High 74 - 99 mg/dL [facility] Comment on above: The [place] Diabete s Association (ADA) provides guidance for [...] Standards of Medical Care in Diabetes 2016, [place] Diabetes Association. Diabetes Care. 2016.39(Suppl 1). Interpretation and review of laboratory results Abnormal [facility] Potassium [Moles/Vol] 3.9 mmol/L 3.7 - 5.1 mmol/L [facility] Protein [Mass/Vol] 6.6 g/dL 6.3 - 8.0 g/dL [facility] Sodium [Moles/Vol] 140 mmol/L 136 - 144 mmol/L [facility] Urea nitrogen [Mass/Vol] 10 mg/dL 7 - 21 mg/dL [facility] Albumin [Mass/Vol] 4.3 g/dL Normal 3.9-4.9 [facility] Comment on above: Order Comment: Matt patricio Type: BLOOD SPECIMEN Ordering Facility: [facility] Address: [address] [place] [address] Performed By: #### 2 4323-8 #### [facility] CLIA [id number] [address] ALP [Catalytic activity/Vol] 76 U/L Normal 34-123 [facility] Comment on above: Order Comment: Matt patricio Type: BLOOD SPECIMEN Ordering Facility: [facility] Address: [address] [place] [address] Performed By: #### 2 4323-8 #### [facility] CLIA [id number] [address] ALT With P-5'-P [Catalytic activity/Vol] 26 U/L Normal 7-38 [facility] Comment on above: Order Comment: Latonyai sheng Type: BLOOD SPECIMEN Ordering Facility: [facility] Address: [address] [place] [address] Performed By: #### 2 4323-8 #### [facility] CLIA [id number] [address] [place] [address] [place] Anion gap [Moles/Vol] 13 mmol/L Normal 8-15 [facility] Comment on above: Order Comment: Speci men Type: BLOOD SPECIMEN Ordering Facility: [facility] Address: [address] [place] [address] Performed By: #### 2 4323-8 #### [facility] CLIA [id number] [address] [place] [address] [place] AST With P-5'-P [Catalytic activity/Vol] 27 U/L Normal 13-35 [facility] Comment on above: Order Comment: Speci men Type: BLOOD SPECIMEN Ordering Facility: [facility] Address: [address] [place] [address] Performed By: #### 2 4323-8 #### [facility] CLIA [id number] [address] [place] [address] [place] Bilirubin [Mass/Vol] 0.4 mg/dL Normal 0.2-1.3 [facility] Comment on above: Order Comment: Speci men Type: BLOOD SPECIMEN Ordering Facility: [facility] Address: [address] [place] [address] Performed By: #### 2 4323-8 #### [facility] CLIA [id number] [address] [place] Calcium [Mass/Vol] 8.9 mg/dL Normal 8.5-10.2 [facility] Comment on above: Order Comment: Speci men Type: BLOOD SPECIMEN Ordering Facility: [facility] Address: [address] [place] [address] Performed By: #### 2 4323-8 #### [facility] CLIA [id number] [address] [place] [address] [place] Chloride [Moles/Vol] 104 mmol/L Normal 98-107 [facility] Comment on above: Order Comment: Speci men Type: BLOOD SPECIMEN Ordering Facility: [facility] Address: [address] [place] [address] Performed By: #### 2 4323-8 #### [facility] CLIA [id number] [address] [place] CO2 [Moles/Vol] 23 mmol/L Normal 22-30 [facility] Comment on above: Order Comment: Speci men Type: BLOOD SPECIMEN Ordering Facility: [facility] Address: [address] [place] [address] Performed By: #### 2 4323-8 #### [facility] CLIA [id number] [address] STATES OF [facility] Creatinine [Mass/Vol] 0.61 mg/dL Normal 0.58-0.96 [facility] Comment on above: Order Comment: Speci men Type: BLOOD SPECIMEN Ordering Facility: [facility] Address: [address] [place] [address] Performed By: #### 2 4323-8 #### [facility] CLIA [id number] [address] [place] eGFRcr SerPlBld CKD-EPI 2020 100 mL/min/1.73m??? Normal >=60 [facility] Comment on above: Order Comment: Speci men Type: BLOOD SPECIMEN Ordering Facility: [facility] Address: [address] [place] [address] Result Comment: Glynn mated Glomerular Filtration Rate [...] 2 4323-8 #### [facility] CLIA [id number] [address] [place] Glucose [Mass/Vol] 252 mg/dL High 74-99 [facility] Comment on above: Order Comment: Speci men Type: BLOOD SPECIMEN Ordering Facility: [facility] Address: [address] [place] [address] Result Comment: The [place] Diabetes Association (ADA) provides guidance for cutoff [...] Standards of Medical Care in Diabetes 2016, [place] Diabetes Association. Diabetes Care. 2016.39(Suppl 1). Performed By: #### 2 4323-8 #### [employer] [facility] CLIA [id number] [address] [place] [address] [place] Potassium [Moles/Vol] 3.9 mmol/L Normal 3.7-5.1 [facility] Comment on above: Order Comment: Matt sheng Type: BLOOD SPECIMEN Ordering Facility: [facility] Address: [address] [place] [address] Performed By: #### 2 4323-8 #### [facility] CLIA [id number] [address] [place] [address] [place] Protein [Mass/Vol] 6.6 g/dL Normal 6.3-8.0 [facility] Comment on above: Order Comment: Matt men Type: BLOOD SPECIMEN Ordering Facility: [facility] Address: [address] [place] [id number] Performed By: #### 2 4323-8 #### [facility] CLIA [id number] [address] [place] [address] [place] Sodium [Moles/Vol] 140 mmol/L Normal 136-144 [facility] Comment on above: Order Comment: Matt men Type: BLOOD SPECIMEN Ordering Facility: [facility] Address: [address] [place] [id number] Performed By: #### 2 4323-8 #### [facility] CLIA [id number] [address] [place] Urea nitrogen [Mass/Vol] 10 mg/dL Normal 7-21 [facility] Comment on above: Order Comment: Latonyai sheng Type: BLOOD SPECIMEN Ordering Facility: [facility] Address: [facility] [place] [address] Performed By: #### 2 4323-8 #### [facility] CLIA [id number] [address] OF [facility] CNPNon 10-30-2024 CNPN Telephone (AGRHEUHWN ) JAYLIN CARROLL ([id number]) 1960 F Date Time Provider Department 10/30/24 ROBERT FARIAS During your visit today, we recorded the following information about you: Balbina Alford 10/30/2024 3:13 PM Signed Kirill Esquivel - PENDING [id number] [facility]/Port[facility] Balbina Alford Area Field Worker Balbina Alford 11/01/2024 9:28 AM Signed Kirill Esquivel - APPROVED [id number] 10.22.24 - 10.22.25 for 440 mg for 9 visits [facility] Balbina Alford Area Field Worker Allergies As of Date: 10/30/2024 Noted Allergy Reaction DEMEROL (MEPERIDINE) 06/19/2020 14 - Other: See Comments Comments: Lowered blood pressure extremely low SULFA (SULFONAMIDE ANTIBIOTICS) 06/19/2020 8 - GI Upset Comments: Stomach pain severe Date Reviewed: 09/27/2024 Reviewed by: Melissa Tran, IAM - Fully Assessed Reason for Visit: INFLECTRA - APPROVED [Other] Cmt: Kirill Esquivel - APPROVED [id number] 10.22.24 - 10.22.25 for 440 mg for 9 visits [facility]al Prescriptions as of 11/01/2024 - folic acid [...] Status:Closed by BALBINA ALFORD on 10/30/24 Normal [facility] Cardiology Visit Reporton Cardiology Visit Report Normal [facility] 10-25-2024 [facility] Telephone (Coridon) JAYLIN CARROLL ([id number]) 1960 F Date Time Provider Department 10/25/24 [...] Encounter Status:Closed by PAULY GOODWIN on 10/25/24 [facility] [place] 10-22-2024 CNPN Telephone (AGRHEUHWN ) JAYLIN CARROLL ([id number]) 1960 F Date Time Provider Department 10/22/24 ROBERT FARIAS During your visit today, we recorded the following information about you: Balbina Alford 10/22/2024 12:39 PM Signed Kirill Esquivel - PENDING [id number] [employer]/Portal Balbina Alford Area Field Worker Allergies As of Date: 10/22/2024 Noted Allergy Reaction DEMEROL (MEPERIDINE) 06/19/2020 14 - Other: See Comments Comments: Lowered blood pressure extremely low SULFA (SULFONAMIDE ANTIBIOTICS) 06/19/2020 8 - GI Upset Comments: Stomach pain severe Date Reviewed: 09/27/2024 Reviewed by: Melissa Tran, IAM - Fully Assessed Reason for Visit: INFLECTRA - PENDING [Other] Cmt: Kirill Esquivel - PENDING [id number] [employer] Prescriptions as of 10/22/2024 - folic acid [...] Encounter Status:Closed by BALBINA ALFORD on 10/22/24 [facility] Magnetic resonance imaging r eportOrdered By: Kristie Parry on 08-24-2024 Study report [facility] Imaging Services [address] [place], [place] [id number] Brain without Contrast MR#: [id number] Acct: [id number] Name: JAYLIN CARROLL Rep #: [id number] : 1960 F 64 From: Malick Parry MD PCP: Dr. Paul Greco MD Status: REG CL I Study:Brain without Contrast Date of Exam: 08/23/24 Exam# [id number] Ordering Dr: Renate Greco MD PROCEDURE: BRAIN [...] infarcts, intracerebral or extra-axial hematomas. Reading Location: [place] [address] CC: Dr. Paul Greco MD ~ Compliance Intern: Signed [facility] Brain without Contraston Brain without Contrast Normal [facility] CNPNon 08-12-2024 [facility] Telephone (Coridon) JAYLIN CARROLL ([id number]) 1960 F Date Time Provider Department 08/12/24 ROBERT FARIAS During your visit today, we recorded the following information about you: Brynn Fofana LPN 08/12/2024 3:03 PM Signed Isael from [facility] lab states the TB test will need [...] Order(s):BLOOD TB SCREEN, INCUBATED [SQINTPGP] Order #: [id number] FUTURE Prescriptions as of 08/12/2024 - methotrexate [...] Status:Closed by BRYNN FOFANA on 08/12/24 Normal [facility] CBC W Auto Differential pane l (Bld)on 08-09-2024 Basophils (Bld) [#/Vol] 0.06 10*3/uL [facility] Basophils/100 WBC (Bld) 0.8 % C [facility] Differential cell count method Nom (Bld) Auto [facility] Eosinophils (Bld) [#/Vol] 0.25 10*3/uL [facility] Eosinophils/100 WBC (Bld) 3.4 % [facility] Erythrocyte distribution width (RBC) [Ratio] 17.2 % High 11.5 - 15.0 % [facility] Hematocrit (Bld) [Volume fraction] 38.6 % 36.0 - 46.0 % [facility] Hemoglobin (Bld) [Mass/Vol] 11.9 g/dL 11.5 - 15.5 g/dL [facility] Immature granulocytes (Bld) [#/Vol] 0.03 10*3/uL [facility] Immature granulocytes/100 WBC (Bld) 0.4 % [facility] Interpretation and review of laboratory results Abnormal [facility] Lymphocytes (Bld) [#/Vol] 2.41 10*3/uL [facility] Lymphocytes/100 WBC (Bld) 33 % [facility] MCH (RBC) [Entitic mass] 26.4 pg 26.0 - 34.0 pg [facility] MCHC (RBC) [Mass/Vol] 30.8 g/dL 30.5 - 36.0 g/dL [facility] MCV (RBC) [Entitic vol] 85.8 fL 80.0 - 100.0 fL [facility] Monocytes (Bld) [#/Vol] 0.55 10*3/uL [facility] Monocytes/100 WBC (Bld) 7.5 % C [facility] Neutrophils (Bld) [#/Vol] 4 10*3/uL [facility] Neutrophils/100 WBC (Bld) 54.9 % [facility] Nucleated RBC (Bld) [#/Vol] NINF [facility] Nucleated RBC/100 WBC (Bld) [Ratio] 0 % /100 WBC [facility] Platelet mean volume (Bld) [Entitic vol] 11 fL 9.0 - 12.7 fL [facility] Platelets (Bld) [#/Vol] 187 10*3/uL [facility] RBC (Bld) [#/Vol] 4.5 10*6/uL 3.90 - 5.2 0 m/uL [facility] WBC (Bld) [#/Vol] 7.3 10*3/uL [facility] Basophils (Bld) [#/Vol] 0.06 10*3/uL Normal <0.11 [facility] Comment on above: Order Comment: Speci men Type: BLOOD SPECIMEN Ordering Facility: [facility] Address: [address] [place] [address] Performed By: #### 5 7021-8 #### [facility] CLIA [id number] [address] Basophils/100 WBC (Bld) 0.8 % Normal A [facility] Comment on above: Order Comment: Speci men Type: BLOOD SPECIMEN Ordering Facility: [facility] Address: [address] [place] [address] Performed By: #### 5 7021-8 #### [facility] CLIA [id number] [address] OF [facility] Differential cell count method Nom (Bld) Auto Normal [facility] Comment on above: Order Comment: Speci men Type: BLOOD SPECIMEN Ordering Facility: [facility] Address: [address] [place] [address] Performed By: #### 5 7021-8 #### [facility] CLIA [id number] [address] [place] Eosinophils (Bld) [#/Vol] 0.25 10*3/uL Normal <0.46 [facility] Comment on above: Order Comment: Speci men Type: BLOOD SPECIMEN Ordering Facility: [facility] Address: [address] [place] [address] Performed By: #### 5 7021-8 #### [facility] CLIA [id number] [address] [place] Eosinophils/100 WBC (Bld) 3.4 % Normal [facility] Comment on above: Order Comment: Speci men Type: BLOOD SPECIMEN Ordering Facility: [facility] Address: [address] [place] [address] Performed By: #### 5 7021-8 #### [facility] CLIA [id number] [address] [place] Erythrocyte distribution width (RBC) [Ratio] 17.2 % High 11.5-15.0 [facility] Comment on above: Order Comment: Speci men Type: BLOOD SPECIMEN Ordering Facility: [facility] Address: [address] [place] [address] Performed By: #### 5 7021-8 #### [facility] CLIA [id number] [address] [place] Hematocrit (Bld) [Volume fraction] 38.6 % Normal 36.0-46.0 [facility] Comment on above: Order Comment: Speci men Type: BLOOD SPECIMEN Ordering Facility: [facility] Address: [address] [place] [address] Performed By: #### 5 7021-8 #### [facility] CLIA [id number] [address] [place] Hemoglobin (Bld) [Mass/Vol] 11.9 g/dL Normal 11.5-15.5 [facility] Comment on above: Order Comment: Speci men Type: BLOOD SPECIMEN Ordering Facility: [facility] Address: [address] [place] [address] Performed By: #### 5 7021-8 #### [facility] CLIA [id number] [address] Immature granulocytes (Bld) [#/Vol] 0.03 10*3/uL Normal <0.10 [facility] Comment on above: Order Comment: Speci men Type: BLOOD SPECIMEN Ordering Facility: [facility] Address: [address] [place] [address] Performed By: #### 5 7021-8 #### [facility] CLIA [id number] [address] Immature granulocytes/100 WBC (Bld) 0.4 % Normal [facility] Comment on above: Order Comment: Speci men Type: BLOOD SPECIMEN Ordering Facility: [facility] Address: [address] [place] [address] Performed By: #### 5 7021-8 #### [facility] CLIA [id number] [address] Lymphocytes (Bld) [#/Vol] 2.41 10*3/uL Normal 1.00-4.00 [facility] Comment on above: Order Comment: Speci men Type: BLOOD SPECIMEN Ordering Facility: [facility] Address: [address] [place] [address] Performed By: #### 5 7021-8 #### [facility] CLIA [id number] [address] Lymphocytes/100 WBC (Bld) 33.0 % Normal [facility] Comment on above: Order Comment: Speci men Type: BLOOD SPECIMEN Ordering Facility[facility] Address: [address] [place] [address] Performed By: #### 5 7021-8 #### [facility] CLIA [id number] [address] [place] MCH (RBC) [Entitic mass] 26.4 pg Normal 26.0-34.0 [facility] Comment on above: Order Comment: Speci men Type: BLOOD SPECIMEN Ordering Facility[facility] Address: [address] [place] [address] Performed By: #### 5 7021-8 #### [facility] CLIA [id number] [address] MCHC (RBC) [Mass/Vol] 30.8 g/dL Normal 30.5-36.0 [facility] Comment on above: Order Comment: Speci men Type: BLOOD SPECIMEN Ordering Facility[facility] Address: [address] [place] [address] Performed By: #### 5 7021-8 #### [facility] CLIA [id number] [address] MCV (RBC) [Entitic vol] 85.8 fL Normal 80.0-100.0 [place] Comment on above: Order Comment: Speci men Type: BLOOD SPECIMEN Ordering Facility: [facility] Address: [address] [place] [address] Performed By: #### 5 7021-8 #### [facility] CLIA [id number] [address] Monocytes (Bld) [#/Vol] 0.55 10*3/uL Normal <0.87 [facility] Comment on above: Order Comment: Speci men Type: BLOOD SPECIMEN Ordering Facility: [facility] Address: [address] [place] [address] Performed By: #### 5 7021-8 #### [facility] CLIA [id number] [address] Monocytes/100 WBC (Bld) 7.5 % Normal [place] Comment on above: Order Comment: Speci men Type: BLOOD SPECIMEN Order[facility] Facility[facility] Address: [address] [place] [address] Performed By: #### 5 7021-8 #### [facility] CLIA [id number] [address] [place] Neutrophils (Bld) [#/Vol] 4.00 10*3/uL Normal 1.45-7.50 [facility] Comment on above: Order Comment: Speci men Type: BLOOD SPECIMEN Ordering Facility: [facility] Address: [address] [place] [address] Performed By: #### 5 7021-8 #### [facility] CLIA [id number] [address] [place] Neutrophils/100 WBC (Bld) 54.9 % Normal [facility] Comment on above: Order Comment: Speci men Type: BLOOD SPECIMEN Order[facility] Facility[facility] Address: [address] [place] [address] Performed By: #### 5 7021-8 #### [facility] CLIA [id number] [address] [place] Nucleated RBC (Bld) [#/Vol] 10*3/uL Normal <0.01 [facility] Comment on above: Order Comment: Speci men Type: BLOOD SPECIMEN Ordering Facility[facility] Address: [address] [place] [address] Performed By: #### 5 7021-8 #### [facility] CLIA [id number] [address] Nucleated RBC/100 WBC (Bld) [Ratio] 0.0 /100 WBC Normal [facility] Comment on above: Order Comment: Speci men Type: BLOOD SPECIMEN Ordering Facility[facility] Address: [address] [place] [address] Performed By: #### 5 7021-8 #### [facility] CLIA [id number] [address] [place] Platelet mean volume (Bld) [Entitic vol] 11.0 fL Normal 9.0-12.7 [facility] Comment on above: Order Comment: Speci men Type: BLOOD SPECIMEN Order[facility] Facility[facility] Address: [address] [place] [address] Performed By: #### 5 7021-8 #### [facility] CLIA [id number] [address] Platelets (Bld) [#/Vol] 187 10*3/uL Normal 150-400 [facility] Comment on above: Order Comment: Speci men Type: BLOOD SPECIMEN Order[facility] Facility[facility] Address: [address] [place] [address] Performed By: #### 5 7021-8 #### [facility] CLIA [id number] [address] RBC (Bld) [#/Vol] 4.50 10*6/uL Normal 3.90-5.20 [facility] Comment on above: Order Comment: Speci men Type: BLOOD SPECIMEN Ordering Facility[facility] Address: [address] [place] [address] Performed By: #### 5 7021-8 #### [facility] CLIA [id number] [address] WBC (Bld) [#/Vol] 7.30 10*3/uL Normal 3.70-11.00 [facility] Comment on above: Order Comment: Speci men Type: BLOOD SPECIMEN Ordering Facility[facility] Address: [address] [place] [address] Performed By: #### 5 7021-8 #### [facility] CLIA [id number] [address] [place] Comprehensive metabolic 2000 panelon 08-09-2024 Albumin [Mass/Vol] 4.2 g/dL 3.9 - 4.9 g/dL [facility] ALP [Catalytic activity/Vol] 66 U/L 34 - 123 U/L [facility] ALT With P-5'-P [Catalytic activity/Vol] 24 U/L 7 - 38 U/L [facility] Anion gap [Moles/Vol] 13 mmol/L 8 - 15 mmol/L [facility] AST With P-5'-P [Catalytic activity/Vol] 16 U/L 13 - 35 U/L [facility] Bilirubin [Mass/Vol] 0.3 mg/dL 0.2 - 1 .3 mg/dL [facility] Calcium [Mass/Vol] 9.2 mg/dL 8.5 - 10. 2 mg/dL [facility] Chloride [Moles/Vol] 105 mmol/L 98 - 10 7 mmol/L [facility] CO2 [Moles/Vol] 23 mmol/L 22 - 30 mmol/L [facility] Creatinine [Mass/Vol] 0.59 mg/dL 0.58 - 0.96 mg/dL [facility] GFR/1.73 sq M.predicted among non-blacks MDRD (S/P/Bld) [Vol rate/Area] 101 mL/min/{1.73_m2} - PINF [facility] Comment on above: Estimated Glomerular Filtration [...] 182 mg/dL High 74 - 99 mg/dL [facility] Comment on above: The [place] Diabete s Association (ADA) provides guidance for [...] Standards of Medical Care in Diabetes 2016, [place] [employer]. Diabetes Care. 2016.39(Suppl 1). Interpretation and review of laboratory results Abnormal [facility] Potassium [Moles/Vol] 3.5 mmol/L Low 3.7 - 5.1 mmol/L [facility] Protein [Mass/Vol] 6.5 g/dL 6.3 - 8.0 g/dL [facility] Sodium [Moles/Vol] 141 mmol/L 136 - 144 mmol/L [facility] Urea nitrogen [Mass/Vol] 8 mg/dL 7 - 21 mg/dL [facility] Albumin [Mass/Vol] 4.2 g/dL Normal 3.9-4.9 [facility] Comment on above: Order Comment: Speci men Type: BLOOD SPECIMEN Order[facility] Facility[facility] Address: [address] [place] [address] Performed By: #### 4 537-7 #### [facility] CLIA [id number] [address] [place] [address] [place] ALP [Catalytic activity/Vol] 66 U/L Normal 34-123 [facility] Comment on above: Order Comment: Speci men Type: BLOOD SPECIMEN Ordering Facility[facility] Address: [address] [place] [address] Performed By: #### 4 537-7 #### [facility] CLIA [id number] [address] [place] [address] [place] ALT With P-5'-P [Catalytic activity/Vol] 24 U/L Normal 7-38 [facility] Comment on above: Order Comment: Speci men Type: BLOOD SPECIMEN Order[facility] Facility[facility] Address: [address] [place] [address] Performed By: #### 4 537-7 #### [facility] CLIA [id number] [address] [place] [address] [place] Anion gap [Moles/Vol] 13 mmol/L Normal 8-15 [facility] Comment on above: Order Comment: Speci men Type: BLOOD SPECIMEN [facility] [facility] Address: [address] [place] [address] Performed By: #### 4 537-7 #### [facility] CLIA [id number] [address] [place] [address] [place] AST With P-5'-P [Catalytic activity/Vol] 16 U/L Normal 13-35 [facility] Comment on above: Order Comment: Speci men Type: BLOOD SPECIMEN Ordering Facility: [facility] Address: [address] [place] [address] Performed By: #### 4 537-7 #### [facility] CLIA [id number] [address] [place] [address] [place] Bilirubin [Mass/Vol] 0.3 mg/dL Normal 0.2-1.3 [facility] Comment on above: Order Comment: Speci men Type: BLOOD SPECIMEN Ordering Facility: [facility] Address: [address] [place] [address] Performed By: #### 4 537-7 #### [facility] CLIA [id number] [address] [place] [address] [place] Calcium [Mass/Vol] 9.2 mg/dL Normal 8.5-10.2 [facility] Comment on above: Order Comment: Speci men Type: BLOOD SPECIMEN Ordering Facility: [facility] Address: [address] [place] [address] Performed By: #### 4 537-7 #### [facility] CLIA [id number] [address] [place] [address] [place] Chloride [Moles/Vol] 105 mmol/L Normal 98-107 [facility] Comment on above: Order Comment: Speci men Type: BLOOD SPECIMEN Ordering Facility: [facility] Address: [address] [place] [address] Performed By: #### 4 537-7 #### [facility] CLIA [id number] [address] [place] [address] [place] CO2 [Moles/Vol] 23 mmol/L Normal 22-30 [facility] Comment on above: Order Comment: Speci men Type: BLOOD SPECIMEN Ordering Facility: [facility] Address: [address] [place] [address] Performed By: #### 4 537-7 #### [facility] CLIA [id number] [address] [place] [address] [place] Creatinine [Mass/Vol] 0.59 mg/dL Normal 0.58-0.96 [facility] Comment on above: Order Comment: Matt patricio Type: BLOOD SPECIMEN Ordering Facility: [facility] Address: [address] [place] [address] Performed By: #### 4 537-7 #### [facility] CLIA [id number] [address] [place] [address] [facility] Creatinine and Glomerular filtration rate.predicted panel (S/P/Bld) 101 mL/min/1.73m??? Normal >=60 [facility] Comment on above: Order Comment: Matt patricio Type: BLOOD SPECIMEN Ordering Facility: [facility] Address: [address] [place] [address] Result Comment: Glynn mated Glomerular Filtration Rate [...] GFR. Performed By: #### 4 537-7 #### [facility] CLIA [id number] [address] [place] [address] [place] Glucose [Mass/Vol] 182 mg/dL High 74-99 [facility] Comment on above: Order Comment: Matt patricio Type: BLOOD SPECIMEN Ordering Facility: [facility] Address: [address] [place] [address] Result Comment: The [place] [employer] (ADA) provides guidance for cutoff [...] Standards of Medical Care in Diabetes 2016, [place] [employer]. Diabetes Care. 2016.39(Suppl 1). Performed By: #### 4 537-7 #### [facility] CLIA [id number] [address] [place] [address] [place] Potassium [Moles/Vol] 3.5 mmol/L Low 3.7-5.1 [facility] Comment on above: Order Comment: Speci men Type: BLOOD SPECIMEN Ordering Facility: [facility] Address: [address] [place] [address] Performed By: #### 4 537-7 #### [facility] CLIA [id number] [address] [place], [place] [id number] [place] Protein [Mass/Vol] 6.5 g/dL Normal 6.3-8.0 [facility] Comment on above: Order Comment: Speci men Type: BLOOD SPECIMEN Ordering Facility: [facility] Address: [address] [place] [address] Performed By: #### 4 537-7 #### [facility] CLIA [id number] [address] [place], [place] [address] [place] Sodium [Moles/Vol] 141 mmol/L Normal 136-144 [facility] Comment on above: Order Comment: Speci men Type: BLOOD SPECIMEN Ordering Facility: [facility] Address: [address] [place], [place] [address] Performed By: #### 4 537-7 #### [facility] CLIA [id number] [address] [place], [place] [address] [place] Urea nitrogen [Mass/Vol] 8 mg/dL Normal 7-21 [facility] Comment on above: Order Comment: Speci men Type: BLOOD SPECIMEN Ordering Facility: [facility] Address: [address] [place], [place] [address] Performed By: #### 4 537-7 #### [facility] CLIA [id number] [address] [place], [place] [address] [place] [address] [place] ESR Westergren method (Bld) [Velocity]on 08-09-2024 ESR (Bld) [Velocity] 5 mm/h Normal 0-20 [facility] Comment on above: Order Comment: Speci men Type: BLOOD SPECIMEN Ordering Facility: [facility] Address: [address] [place] [address] Performed By: #### 4 537-7 #### [facility] CLIA [id number] [address] [place] [address] [place] Anion gap in Serum or Plasma Ordered By: Ambreen Delaney on 08-06-2024 Anion gap [Moles/Vol] 11 mmol/L 5-15 [facility] BUN/creatinine ratioOrdered By: Ambreen Delaney on 08-06-2024 Urea nitrogen/Creatinine [Mass ratio] 20.3 mg/mg High 10-20 [facility] Basic Metabolic Profile (BMP )on 08-06-2024 BUN/CRE 20.3 RATIO High 10-20 [facility] Comment on above: Performed By: #### L 500.2500 ####[facility] [address] [facility] [place], [address] Calcium [Mass/Vol] 9.2 mg/dL Normal 7.6-11.0 [facility] Comment on above: Performed By: #### L 500.2500 ####[facility] [address] [place], [address] Chloride [Moles/Vol] 106 mmol/L Normal 98-108 [facility] Comment on above: Performed By: #### L 500.2500 ####[facility] [address] [facility] [place], [address] CO2 [Moles/Vol] 23.8 mmol/L Normal 21.0-32.0 [facility] Comment on above: Performed By: #### L 500.2500 ####[facility] [address] [place], [address] Creatinine [Mass/Vol] 0.67 mg/dL Low 0.70-1.20 [facility] Comment on above: Performed By: #### L 500.2500 ####[facility] [address] [place], [address] GAP 11 Normal 5-15 [facility] Comment on above: Performed By: #### L 500.2500 ####[facility] [address] [place], [address] GFR/1.73 sq M.predicted among non-blacks MDRD (S/P/Bld) [Vol rate/Area] 98 mL/min/{1.73_m2} Normal >60 [facility] Comment on above: Result Comment: mL/m in/1.73m2 CKD-EPI Creatinine Equation (2020) Performed By: #### L 500.2500 ####[facility] [address] [place], [address] Glucose [Mass/Vol] 231 mg/dL High 70-99 [facility] Comment on above: Performed By: #### L 500.2500 ####[facility] [address] [place], [address] Potassium [Moles/Vol] 3.5 mmol/L Normal 3.3-5.1 [facility] Comment on above: Performed By: #### L 500.2500 ####[facility] [address] [place], [address] Sodium [Moles/Vol] 141 mmol/L Normal 133-145 [facility] Comment on above: Performed By: #### L 500.2500 ####[facility] [address] [place], [address] Urea nitrogen [Mass/Vol] 14 mg/dL Normal 4-19 [facility] Comment on above: Performed By: #### L 500.2500 ####[facility] [address] [place], [address] BUN Normal 4-19 [facility] Comment on above: Result Comment: DUP ORDER Performed By: #### L 500.2500 ####[facility] [address] [place], [address] BUN/CRE Normal 10-20 [facility] Comment on above: Result Comment: DUP ORDER Performed By: #### L 500.2500 ####[facility] [address] [place], [address] Calcium Normal 7.6-11.0 [facility] Comment on above: Result Comment: DUP ORDER Performed By: #### L 500.2500 ####[facility] [address] [place], [address] CL Normal 98-108 [facility] Comment on above: Result Comment: DUP ORDER Performed By: #### L 500.2500 ####[facility] [address] [place], [address] CO2 Normal 21.0-32.0 [facility] Comment on above: Result Comment: DUP ORDER Performed By: #### L 500.2500 ####[facility] [address] [place], [address] CREAT,SERUM Normal 0.70-1.20 [facility] Comment on above: Result Comment: DUP ORDER Performed By: #### L 500.2500 ####[facility] [address] [place], [address] eGFR Normal >60 [facility] Comment on above: Result Comment: DUP ORDER Performed By: #### L 500.2500 ####[facility] [address] [place], [address] GAP Normal 5-15 [facility] Comment on above: Result Comment: DUP ORDER Performed By: #### L 500.2500 ####[facility] [address] [place], [address] GLU Normal 70-99 [facility] Comment on above: Result Comment: DUP ORDER Performed By: #### L 500.2500 ####[facility] [address] [place], [address] Potassium Normal 3.3-5.1 [facility] Comment on above: Result Comment: DUP ORDER Performed By: #### L 500.2500 ####[facility] [address] [place], [address] Basic Metabolic Profile (BMP) Normal 133-145 [facility] Comment on above: Result Comment: DUP ORDER Performed By: #### L 500.2500 ####[facility] [address] [place], [address] Carbon dioxide, total [Moles /volume] in Central venous bloodOrdered By: Ambreen Delaney on 08-06-2024 CO2 [Moles/Vol] 23.8 mmol/L 21.0-32.0 [facility] Chloride assayOrdered By: Abran Delaney on 08-06-2024 Chloride [Moles/Vol] 106 mmol/L 98-108 [facility] Glomerular filtration rate ( GFR) estimation/1.73 sq m using serum, plasma, or whole bOrdered By: Ambreen Delaney on 08-06-2024 GFR/1.73 sq M.predicted among non-blacks MDRD (S/P/Bld) [Vol rate/Area] 98 mL/min/{1.73_m2} >60 [facility] Comment on above: mL/min/1.73m2 CKD-EP I Creatinine Equation (2020) Potassium measurement (mass/ volume)Ordered By: Ambreen Delaney on 08-06-2024 Potassium (Unsp spec) [Mass/Vol] 3.5 mmol/L 3.3-5.1 [facility] Serum creatinine measurement (mass/volume)Ordered By: Ambreen Delaney on 08-06-2024 Creatinine [Mass/Vol] 0.67 mg/dL Low 0.70-1.20 [facility] Serum glucose measurement (m ass/volume)Ordered By: Ambreen Delaney on 08-06-2024 Glucose [Mass/Vol] 231 mg/dL High 70-99 [facility] Serum or plasma calcium aminta urement (mass/volume)Ordered By: Ambreen Delaney on 08-06-2024 Calcium [Mass/Vol] 9.2 mg/dL 7.6-11.0 [facility] Serum or plasma urea nitroge n measurement (mass/volume)Ordered By: Ambreen Delaney on 08-06-2024 Urea nitrogen [Mass/Vol] 14 mg/dL 4-19 [facility] Sodium levelOrdered By: Ximena Delaney on 08-06-2024 Sodium [Moles/Vol] 141 mmol/L 133-145 [facility] Cardiology Visit Reporton Cardiology Visit Report Normal [facility] L499.0043on 07-26-2024 Trop T High Sen Normal <=14 [facility] Comment on above: Result Comment: Canc elled via OM: Order cancelled - Patient discharged Performed By: #### L 499.0043 ####[facility] [address] [place], [address] 12 Lead EKGon 07-25-2024 12 Lead EKG Normal [facility] 12 Lead EKG Normal [facility] Absolute lymphocyte countOrd ered By: Ranjit Garces on 07-25-2024 Lymphocytes Auto (Unsp spec) [#/Vol] 2.48 10*3/uL 0.83-4.51 [facility] Absolute neutrophil countOrd ered By: Ranjitannabella Garces on 07-25-2024 Neutrophils (Bld) [#/Vol] 4.0 10*3/uL 2.0-7.7 [facility] Anion gap in Serum or Plasma Ordered By: Ranjit Garces on 07-25-2024 Anion gap [Moles/Vol] 15 mmol/L 5-15 [facility] Automated lymphocyte count a s percentage of total leukocytesOrdered By: Ranjitannabella Garces on 07-25-2024 Lymphocytes/100 WBC Auto (Unsp spec) 34.6 % 19-41 [facility] BUN/creatinine ratioOrdered By: Ranjit Garces on 07-25-2024 Urea nitrogen/Creatinine [Mass ratio] 13.0 mg/mg - [facility] Basic Metabolic Profile (BMP )on 07-25-2024 BUN/CRE 13.0 RATIO Normal 12-23 [facility] Comment on above: Performed By: #### L 500.2500, L501.4021, L100.0100 ####[facility] [address] [place], [address] Calcium [Mass/Vol] 9.3 mg/dL Normal 7.6-11.0 [facility] Comment on above: Performed By: #### L 500.2500, L501.4021, L100.0100 ####[facility] [address] [place], [address] Chloride [Moles/Vol] 106 mmol/L Normal 98-108 [facility] Comment on above: Performed By: #### L 500.2500, L501.4021, L100.0100 ####[facility] [address] [place], [address] CO2 [Moles/Vol] 21.1 mmol/L Normal 21.0-32.0 [facility] Comment on above: Performed By: #### L 500.2500, L501.4021, L100.0100 ####[facility] [address] [place], [address] Creatinine [Mass/Vol] 0.66 mg/dL Low 0.70-1.20 [facility] Comment on above: Performed By: #### L 500.2500, L501.4021, L100.0100 ####[facility] [address] [place], [address] ECRCL 88.89 ml/min Normal 50-250 [facility] Comment on above: Performed By: #### L 500.2500, L501.4021, L100.0100 ####[facility] [address] [place], [address] GAP 15 Normal 5-15 [facility] Comment on above: Performed By: #### L 500.2500, L501.4021, L100.0100 ####[facility] [address] [place], [address] GFR/1.73 sq M.predicted among non-blacks MDRD (S/P/Bld) [Vol rate/Area] 98 mL/min/{1.73_m2} Normal >60 [facility] Comment on above: Result Comment: mL/m in/1.73m2 CKD-EPI Creatinine Equation (2020) Performed By: #### L 500.2500, L501.4021, L100.0100 ####[facility] [address] [place], [address] Glucose [Mass/Vol] 182 mg/dL High 70-99 [facility] Comment on above: Performed By: #### L 500.2500, L501.4021, L100.0100 ####[facility] [address] [place], [address] Potassium [Moles/Vol] 3.2 mmol/L Low 3.3-5.1 [facility] Comment on above: Performed By: #### L 500.2500, L501.4021, L100.0100 ####[facility] [address] [place], [address] Sodium [Moles/Vol] 142 mmol/L Normal 133-145 [facility] Comment on above: Performed By: #### L 500.2500, L501.4021, L100.0100 ####[facility] [address] [place], [address] Urea nitrogen [Mass/Vol] 9 mg/dL Normal 4-19 [facility] Comment on above: Performed By: #### L 500.2500, L501.4021, L100.0100 ####[facility] [address] [place], [address] Basophil percentageOrdered B y: Ranjit Garces on 07-25-2024 Basophils/100 WBC (Bld) 0.3 % 0-1 [facility] CBC W/Diff, Automatedon 07-05 Absolute Lymph 2.48 X10 3/uL Normal 0.83-4.51 [facility] Comment on above: Performed By: #### L 500.2500, L501.4021, L100.0100 ####[facility] [address] [place], [address] Absolute Neut 4.0 X10 3/uL Normal 2.0-7.7 [facility] Comment on above: Performed By: #### L 500.2500, L501.4021, L100.0100 ####[facility] [address] [place], [address] Basophils/100 WBC (Bld) 0.3 % Normal 0-1 [facility] Comment on above: Performed By: #### L 500.2500, L501.4021, L100.0100 ####[facility] [address] [place], [address] Eosinophils/100 WBC (Bld) 2.4 % Normal 0-5 [facility] Comment on above: Performed By: #### L 500.2500, L501.4021, L100.0100 ####[facility] [address] [place], [address] Erythrocyte distribution width (RBC) [Ratio] 17.1 % High 11.6-14.6 [facility] Comment on above: Performed By: #### L 500.2500, L501.4021, L100.0100 ####[facility] [address] [place], [address] Hematocrit (Bld) [Volume fraction] 38.8 % Normal 37-47 [facility] Comment on above: Performed By: #### L 500.2500, L501.4021, L100.0100 ####[facility] [address] [place], [address] Hemoglobin (Bld) [Mass/Vol] 12.5 g/dL Normal 12.0-15.0 [facility] Comment on above: Performed By: #### L 500.2500, L501.4021, L100.0100 ####[facility] [address] [place], [address] IG% 0.400 Normal 0.0-0.9 [facility] Comment on above: Result Comment: IG% - Immature Granulocytes (promyelocytes, myelocytes andmetamyelocytes) > 1% indicates that a LEFT SHIFT is Present. Performed By: #### L 500.2500, L501.4021, L100.0100 ####[facility] [address] [place], [address] Lymphocytes/100 WBC (Bld) 34.6 % Normal 19-41 [facility] Comment on above: Performed By: #### L 500.2500, L501.4021, L100.0100 ####[facility] [address] [place], [address] MCH (RBC) [Entitic mass] 27.0 pg Normal 27.0-32.0 [facility] Comment on above: Performed By: #### L 500.2500, L501.4021, L100.0100 ####[facility] [address] [place], [address] MCHC (RBC) [Mass/Vol] 32.2 g/dL Normal 32-36 [facility] Comment on above: Performed By: #### L 500.2500, L501.4021, L100.0100 ####[facility] [address] [place], [address] MCV (RBC) [Entitic vol] 83.8 fL Normal 81-99 [facility] Comment on above: Performed By: #### L 500.2500, L501.4021, L100.0100 ####[facility] [address] [place], [address] Monocytes/100 WBC (Bld) 6.6 % Normal 0-10 [facility] Comment on above: Performed By: #### L 500.2500, L501.4021, L100.0100 ####[facility] [address] [place], [address] Neutrophils/100 WBC (Bld) 55.7 % Normal 47-70 [facility] Comment on above: Performed By: #### L 500.2500, L501.4021, L100.0100 ####[facility] [address] [place], [address] Nucleated RBC (Bld) [#/Vol] 0 10*3/uL Normal 0-5 [facility] Comment on above: Performed By: #### L 500.2500, L501.4021, L100.0100 ####[facility] [address] [place], [address] Platelet mean volume (Bld) [Entitic vol] 10.2 fL Normal 6.2-12.0 [facility] Comment on above: Performed By: #### L 500.2500, L501.4021, L100.0100 ####[facility] [address] [place], [address] Platelets (Bld) [#/Vol] 192 10*3/uL Normal 150-450 [facility] Comment on above: Performed By: #### L 500.2500, L501.4021, L100.0100 ####[facility] [address] [place], [address] RBC (Bld) [#/Vol] 4.63 10*6/uL Normal 4.2-5.4 [facility] Comment on above: Performed By: #### L 500.2500, L501.4021, L100.0100 ####[facility] [address] [place], [address] RDW SD 51.9 fl High 35.1-43.9 [facility] Comment on above: Performed By: #### L 500.2500, L501.4021, L100.0100 ####[facility] [address] [place], [address] WBC (Bld) [#/Vol] 7.2 10*3/uL Normal 4.4-11.0 [facility] Comment on above: Performed By: #### L 500.2500, L501.4021, L100.0100 ####[facility] [address] [place], [address] Carbon dioxide, total [Moles /volume] in Central venous bloodOrdered By: Ranjit Garces on 07-25-2024 CO2 [Moles/Vol] 21.1 mmol/L 21.0-32.0 [facility] Chest 1 View (Portable)on Chest 1 View (Portable) Normal [facility] Chloride assayOrdered By: Ug o Garces on 07-25-2024 Chloride [Moles/Vol] 106 mmol/L 98-108 [facility] Emergency Department Summary on 07-25-2024 Emergency Department Summary Normal [facility] Eosinophil percentageOrdered By: Ranjit Garces on 07-25-2024 Eosinophils/100 WBC (Bld) 2.4 % 0-5 [facility] Erythrocyte distribution wid th ratioOrdered By: Ranjit Garces on 07-25-2024 Erythrocyte distribution width (RBC) [Ratio] 17.1 % High 11.6-14.6 [facility] Erythrocyte distribution wid th standard deviationOrdered By: Ranjit Garces on 07-25-2024 Erythrocyte distribution width (RBC) [Ratio] 51.9 fl High 35.1-43.9 [facility] Glomerular filtration rate ( GFR) estimation/1.73 sq m using serum, plasma, or whole bOrdered By: Ranjit Garces on 07-25-2024 GFR/1.73 sq M.predicted among non-blacks MDRD (S/P/Bld) [Vol rate/Area] 98 mL/min/{1.73_m2} >60 [facility] Comment on above: mL/min/1.73m2 CKD-EP I Creatinine Equation (2020) Hematocrit Auto (Bld) [Volum e fraction]Ordered By: Ranjit Garces on 07-25-2024 Hematocrit (Bld) [Volume fraction] 38.8 % 37-47 [facility] Hemoglobin measurementOrdere d By: Ranjitannabella Garces on 07-25-2024 Hemoglobin (Bld) [Mass/Vol] 12.5 g/dL 12.0-15.0 [facility] Immature granulocytes/100 WB C Auto (Bld)Ordered By: Ranjitannabella Garces on 07-25-2024 Immature granulocytes/100 WBC (Bld) 0.400 % 0.0-0.9 [facility] Comment on above: IG% - Immature Granu locytes (promyelocytes, myelocytes and metamyelocytes) > 1% indicates that a LEFT SHIFT is Present. L499.0042on 07-25-2024 Trop T High Sen < 6 Normal <=14 [facility] Comment on above: Performed By: #### L 499.0042 ####[facility] [address] [place], [address] L501.4021on 07-25-2024 Trop T High Sen < 6 Normal <=14 [facility] Comment on above: Performed By: #### L 500.2500, L501.4021, L100.0100 ####[facility] [address] [place], [address] MCV (mean corpuscular volume ) determinationOrdered By: Ranjit Garces on 07-25-2024 MCV (RBC) [Entitic vol] 83.8 fL 81-99 [facility] Mean corpuscular hemoglobin (MCH) determinationOrdered By: Ranjit Garces on 07-25-2024 MCH (RBC) [Entitic mass] 27.0 pg 27.0-32.0 [facility] Mean corpuscular hemoglobin concentration (MCHC) determinationOrdered By: Ranjit Garces on 07-25-2024 MCHC (RBC) [Mass/Vol] 32.2 g/dL 32-36 [facility] Mean platelet volume determi nationOrdered By: Ranjit Garces on 07-25-2024 Platelet mean volume (Bld) [Entitic vol] 10.2 fL 6.2-12.0 [facility] Monocyte percentageOrdered B y: Ranjit Garces on 07-25-2024 Monocytes/100 WBC (Bld) 6.6 % 0-10 [facility] Neutrophil percentageOrdered By: Ranjit Garces on 07-25-2024 Neutrophils/100 WBC (Bld) 55.7 % 47-70 [facility] Nucleated red blood cell per centageOrdered By: Ranjit Garces on 07-25-2024 Nucleated RBC/100 WBC (Bld) [Ratio] 0 % 0-5 [facility] Platelet countOrdered By: Chan Garces on 07-25-2024 Platelets (Bld) [#/Vol] 192 10*3/uL 150-450 [facility] Potassium measurement (mass/ volume)Ordered By: Ranjit Garces on 07-25-2024 Potassium (Unsp spec) [Mass/Vol] 3.2 mmol/L Low 3.3-5.1 [facility] RBC Auto (Bld) [#/Vol]Ordere d By: Ranjit Garecs on 07-25-2024 RBC (Bld) [#/Vol] 4.63 10*6/uL 4.2-5.4 [facility] Serum creatinine measurement (mass/volume)Ordered By: Ranjit Garces on 07-25-2024 Creatinine [Mass/Vol] 0.66 mg/dL Low 0.70-1.20 [facility] Serum glucose measurement (m ass/volume)Ordered By: Ranjit Garces on 07-25-2024 Glucose [Mass/Vol] 182 mg/dL High 70-99 [facility] Serum or plasma calcium aminta urement (mass/volume)Ordered By: Ranjit Garces on 07-25-2024 Calcium [Mass/Vol] 9.3 mg/dL 7.6-11.0 [facility] Serum or plasma urea nitroge n measurement (mass/volume)Ordered By: Ranjit Garces on 07-25-2024 Urea nitrogen [Mass/Vol] 9 mg/dL 4-19 [facility] Sodium levelOrdered By: Ranjit Garces on 07-25-2024 Sodium [Moles/Vol] 142 mmol/L 133-145 [facility] Troponin T.cardiac [Mass/vol ume] in Serum or Plasma by High sensitivity methodOrdered By: Ranjit Garces on 07-25-2024 Troponin T.cardiac High sensitivity method [Mass/Vol] < 6 ng/L <14 [facility] Troponin T.cardiac High sensitivity method [Mass/Vol] < 6 ng/L <14 [facility] Comment on above: Delta: 7 on 07/03/24 -1850 White blood cell (WBC) count Ordered By: Ranjit Garces on 07-25-2024 WBC (Bld) [#/Vol] 7.2 10*3/uL 4.4-11.0 [facility] JAYLIN CARROLL ([id number]) 1960 F Date Time Provider Department 07/18/24 ROBERT FARIAS During your visit today, we recorded the following information about you: Balbina Alford 07/30/2024 9:18 AM Addendum Kirlil Contreras - PENDING [id number] [employer] Balbina Alford, Area Field Worker Balbina Alford 07/30/2024 9:19 AM Signed Yue Esquivelw - PENDING [id number] [employer] Renflexsukumar DENIED - Need to try and fail [employer] or [employer] Balbina Alford Area Field Worker Balbina Alford 08/07/2024 9:39 AM Signed Kirill Esquivel - APPROVED [id number] 07.30.24 - 10.28.24 [facility] Blabina Alford Area Field Worker Allergies As of Date: 07/18/2024 Noted Allergy Reaction DEMEROL (MEPERIDINE) 06/19/2020 14 - Other: See Comments Comments: Lowered blood pressure extremely low SULFA (SULFONAMIDE ANTIBIOTICS) 06/19/2020 8 - GI Upset Comments: Stomach pain severe Date Reviewed: 06/14/2024 Reviewed by: Ashley Bedoya MA - Fully Assessed Reason for Visit: INFLTERESA - APPROVED [Other] Cmt: Kirill Esquivel - APPROVED [id number] 07.30.24 - 10.28.24 for 3 [facility] Renflexsukumar [place] - DENIED [id number] [facility] Prescriptions as of 08/07/2024 - methotrexate 2.5 [...] Status:Closed by BALBINA ALFORD on 07/18/24 Normal [facility] 12 Lead EKGon 07-03-2024 12 Lead EKG Normal [facility] Absolute lymphocyte countOrd ered By: Corey De Jesus on 07-03-2024 Lymphocytes Auto (Unsp spec) [#/Vol] 2.82 10*3/uL 0.83-4.51 [facility] Absolute neutrophil countOrd ered By: Corey De Jesus on 07-03-2024 Neutrophils (Bld) [#/Vol] 3.2 10*3/uL 2.0-7.7 [facility] Activated partial thrombopla stin time (aPTT) in platelet poor plasma by coagulation aOrdered By: Corey De Jesus on 07-03-2024 aPTT Coag (PPP) [Time] 28.5 s 24.1-36.2 [facility] Anion gap in Serum or Plasma Ordered By: Corey De Jesus on 07-03-2024 Anion gap [Moles/Vol] 14 mmol/L 07-18 [facility] Automated lymphocyte count a s percentage of total leukocytesOrdered By: Corey De Jesus on 07-03-2024 Lymphocytes/100 WBC Auto (Unsp spec) 41.7 % High 19-41 [facility] BUN/creatinine ratioOrdered By: Corey De Jesus on 07-03-2024 Urea nitrogen/Creatinine [Mass ratio] 28.0 mg/mg High 10-20 [facility] Basic Metabolic Profile (BMP )on 07-03-2024 BUN/CRE 28.0 RATIO High [address] [place] [address] Comment on above: Performed By: #### L 500.2500, L501.4021, L300.4310, L300.8000, L100.0100, L300.3900 ####[facility] [address] [place], [address] Calcium [Mass/Vol] 9.3 mg/dL Normal 7.6-11.0 [facility] Comment on above: Performed By: #### L 500.2500, L501.4021, L300.4310, L300.8000, L100.0100, L300.3900 ####[facility] [address] [place], [address] Chloride [Moles/Vol] 108 mmol/L Normal 98-108 [facility] Comment on above: Performed By: #### L 500.2500, L501.4021, L300.4310, L300.8000, L100.0100, L300.3900 ####[facility] [address] [place], [address] CO2 [Moles/Vol] 21.2 mmol/L Normal 21.0-32.0 [facility] Comment on above: Performed By: #### L 500.2500, L501.4021, L300.4310, L300.8000, L100.0100, L300.3900 ####[facility] [address] [place], [address] Creatinine [Mass/Vol] 0.59 mg/dL Low 0.70-1.20 [facility] Comment on above: Performed By: #### L 500.2500, L501.4021, L300.4310, L300.8000, L100.0100, L300.3900 ####[facility] [address] [place], [address] ECRCL 99.75 ml/min Normal 50-250 [facility] Comment on above: Performed By: #### L 500.2500, L501.4021, L300.4310, L300.8000, L100.0100, L300.3900 ####[facility] [address] [place], [address] GAP 14 Normal 5-15 [facility] Comment on above: Performed By: #### L 500.2500, L501.4021, L300.4310, L300.8000, L100.0100, L300.3900 ####[facility] [address] [place], [address] GFR/1.73 sq M.predicted among non-blacks MDRD (S/P/Bld) [Vol rate/Area] 101 mL/min/{1.73_m2} Normal >60 [facility] Comment on above: Result Comment: mL/m in/1.73m2 CKD-EPI Creatinine Equation (2020) Performed By: #### L 500.2500, L501.4021, L300.4310, L300.8000, L100.0100, L300.3900 ####[facility] [address] [place], [address] Glucose [Mass/Vol] 129 mg/dL High 70-99 [facility] Comment on above: Performed By: #### L 500.2500, L501.4021, L300.4310, L300.8000, L100.0100, L300.3900 ####[facility] [address] [place], [address] Potassium [Moles/Vol] 3.3 mmol/L Normal 3.3-5.1 [facility] Comment on above: Performed By: #### L 500.2500, L501.4021, L300.4310, L300.8000, L100.0100, L300.3900 ####[facility] [address] [place], [address] Sodium [Moles/Vol] 142 mmol/L Normal 133-145 [facility] Comment on above: Performed By: #### L 500.2500, L501.4021, L300.4310, L300.8000, L100.0100, L300.3900 ####[facility] [address] [place], [address] Urea nitrogen [Mass/Vol] 17 mg/dL Normal 4-19 [facility] Comment on above: Performed By: #### L 500.2500, L501.4021, L300.4310, L300.8000, L100.0100, L300.3900 ####[facility] [address] [place], [address] Basophil percentageOrdered B y: Corey De Jesus on 07-03-2024 Basophils/100 WBC (Bld) 0.4 % 0-1 [facility] CBC W/Diff, Automatedon 06-06-2024 Absolute Lymph 2.82 X10 3/uL Normal 0.83-4.51 [facility] Comment on above: Performed By: #### L 500.2500, L501.4021, L300.4310, L300.8000, L100.0100, L300.3900 ####[facility] [address] [place], [address] Absolute Neut 3.2 X10 3/uL Normal 2.0-7.7 [facility] Comment on above: Performed By: #### L 500.2500, L501.4021, L300.4310, L300.8000, L100.0100, L300.3900 ####[facility] [address] [place], [address] Basophils/100 WBC (Bld) 0.4 % Normal 0-1 [facility] Comment on above: Performed By: #### L 500.2500, L501.4021, L300.4310, L300.8000, L100.0100, L300.3900 ####[facility] [address] [place], [address] Eosinophils/100 WBC (Bld) 2.4 % Normal 0-5 [facility] Comment on above: Performed By: #### L 500.2500, L501.4021, L300.4310, L300.8000, L100.0100, L300.3900 ####[facility] [address] [place], [address] Erythrocyte distribution width (RBC) [Ratio] 18.0 % High 11.6-14.6 [facility] Comment on above: Performed By: #### L 500.2500, L501.4021, L300.4310, L300.8000, L100.0100, L300.3900 ####[facility] [address] [place], [address] Hematocrit (Bld) [Volume fraction] 38.5 % Normal 37-47 [facility] Comment on above: Performed By: #### L 500.2500, L501.4021, L300.4310, L300.8000, L100.0100, L300.3900 ####[facility] [address] [place], [address] Hemoglobin (Bld) [Mass/Vol] 12.5 g/dL Normal 12.0-15.0 [facility] Comment on above: Performed By: #### L 500.2500, L501.4021, L300.4310, L300.8000, L100.0100, L300.3900 ####[facility] [address] [place], [address] IG% 0.300 Normal 0.0-0.9 [facility] Comment on above: Result Comment: IG% - Immature Granulocytes (promyelocytes, myelocytes andmetamyelocytes) > 1% indicates that a LEFT SHIFT is Present. Performed By: #### L 500.2500, L501.4021, L300.4310, L300.8000, L100.0100, L300.3900 ####[facility] [address] [place], [address] Lymphocytes/100 WBC (Bld) 41.7 % High 19-41 [facility] Comment on above: Performed By: #### L 500.2500, L501.4021, L300.4310, L300.8000, L100.0100, L300.3900 ####[facility] [address] [place], [address] MCH (RBC) [Entitic mass] 27.1 pg Normal 27.0-32.0 [facility] Comment on above: Performed By: #### L 500.2500, L501.4021, L300.4310, L300.8000, L100.0100, L300.3900 ####[facility] [address] [place], [address] MCHC (RBC) [Mass/Vol] 32.5 g/dL Normal 32-36 [facility] Comment on above: Performed By: #### L 500.2500, L501.4021, L300.4310, L300.8000, L100.0100, L300.3900 ####[facility] [address] [place], [address] MCV (RBC) [Entitic vol] 83.5 fL Normal 81-99 [facility] Comment on above: Performed By: #### L 500.2500, L501.4021, L300.4310, L300.8000, L100.0100, L300.3900 ####[facility] [address] [place], [address] Monocytes/100 WBC (Bld) 7.5 % Normal 0-10 [facility] Comment on above: Performed By: #### L 500.2500, L501.4021, L300.4310, L300.8000, L100.0100, L300.3900 ####[facility] [address] [place], [address] Neutrophils/100 WBC (Bld) 47.7 % Normal 47-70 [facility] Comment on above: Performed By: #### L 500.2500, L501.4021, L300.4310, L300.8000, L100.0100, L300.3900 ####[facility] [address] [place], [address] Nucleated RBC (Bld) [#/Vol] 0 10*3/uL Normal 0-5 [facility] Comment on above: Performed By: #### L 500.2500, L501.4021, L300.4310, L300.8000, L100.0100, L300.3900 ####[facility] [address] [place], [address] Platelet mean volume (Bld) [Entitic vol] 9.9 fL Normal 6.2-12.0 [facility] Comment on above: Performed By: #### L 500.2500, L501.4021, L300.4310, L300.8000, L100.0100, L300.3900 ####[facility] [address] [place], [address] Platelets (Bld) [#/Vol] 208 10*3/uL Normal 150-450 [facility] Comment on above: Performed By: #### L 500.2500, L501.4021, L300.4310, L300.8000, L100.0100, L300.3900 ####[facility] [address] [place], [address] RBC (Bld) [#/Vol] 4.61 10*6/uL Normal 4.2-5.4 [facility] Comment on above: Performed By: #### L 500.2500, L501.4021, L300.4310, L300.8000, L100.0100, L300.3900 ####[facility] [address] [place], [address] RDW SD 53.6 fl High 35.1-43.9 [facility] Comment on above: Performed By: #### L 500.2500, L501.4021, L300.4310, L300.8000, L100.0100, L300.3900 ####[facility] [address] [place], [address] WBC (Bld) [#/Vol] 6.8 10*3/uL Normal 4.4-11.0 [facility] Comment on above: Performed By: #### L 500.2500, L501.4021, L300.4310, L300.8000, L100.0100, L300.3900 ####[facility] [address] [place], [address] Carbon dioxide, total [Moles /volume] in Central venous bloodOrdered By: Corey De Jesus on 07-03-2024 CO2 [Moles/Vol] 21.2 mmol/L 21.0-32.0 [facility] Chest 1 View (Portable)on Chest 1 View (Portable) Normal [facility] Chloride assayOrdered By: Trever De Jesus on 07-03-2024 Chloride [Moles/Vol] 108 mmol/L 98-108 [facility] D-Dimer Quantitative (DVT/PE )on 07-03-2024 D-DIMER QUANT < 0.27 Low 0.27-0.49 [facility] Comment on above: Result Comment: NORM AL D-Dimer level (<0.50) indicates no DVT or PE. Performed By: #### L 500.2500, L501.4021, L300.4310, L300.8000, L100.0100, L300.3900 ####[facility] [address] [place], [address] Emergency Department Summary on 07-03-2024 Emergency Department Summary Normal [facility] Eosinophil percentageOrdered By: Corey De Jesus on 07-03-2024 Eosinophils/100 WBC (Bld) 2.4 % 0-5 [facility] Erythrocyte distribution wid th ratioOrdered By: Corey De Jesus on 07-03-2024 Erythrocyte distribution width (RBC) [Ratio] 18.0 % High 11.6-14.6 [facility] Erythrocyte distribution wid th standard deviationOrdered By: Corey De Jesus on 07-03-2024 Erythrocyte distribution width (RBC) [Ratio] 53.6 fl High 35.1-43.9 [facility] Glomerular filtration rate ( GFR) estimation/1.73 sq m using serum, plasma, or whole bOrdered By: Coreycaio De Jesus on 07-03-2024 GFR/1.73 sq M.predicted among non-blacks MDRD (S/P/Bld) [Vol rate/Area] 101 mL/min/{1.73_m2} >60 [facility] Comment on above: mL/min/1.73m2 CKD-EP I Creatinine Equation (2020) Hematocrit Auto (Bld) [Volum e fraction]Ordered By: Corey De Jesus on 07-03-2024 Hematocrit (Bld) [Volume fraction] 38.5 % 37-47 [facility] Hemoglobin measurementOrdere d By: Corey De Jesus on 07-03-2024 Hemoglobin (Bld) [Mass/Vol] 12.5 g/dL 12.0-15.0 [facility] Immature granulocytes/100 WB C Auto (Bld)Ordered By: Corey De Jesus on 07-03-2024 Immature granulocytes/100 WBC (Bld) 0.300 % 0.0-0.9 [facility] Comment on above: IG% - Immature Granu locytes (promyelocytes, myelocytes and metamyelocytes) > 1% indicates that a LEFT SHIFT is Present. International normalized rat io (INR) calculationOrdered By: Corey De Jesus on 07-03-2024 INR Coag (Bld) [Relative time] 0.9 {INR} [facility] L499.0042on 07-03-2024 Trop T High Sen < 6 Normal <=14 [facility] Comment on above: Performed By: #### L 499.0042 ####[facility] [address] [place], [address] L499.0043on 07-03-2024 Trop T High Sen Normal <=14 [facility] Comment on above: Result Comment: Canc elled via OM: Order cancelled - Patient discharged Performed By: #### L 499.0043 ####[facility] [address] [place], [address] L501.4021on 07-03-2024 Trop T High Sen 7 ng/L Normal <=14 [facility] Comment on above: Performed By: #### L 500.2500, L501.4021, L300.4310, L300.8000, L100.0100, L300.3900 ####[facility] [address] [place], [address] MCV (mean corpuscular volume ) determinationOrdered By: Corey De Jesus on 07-03-2024 MCV (RBC) [Entitic vol] 83.5 fL 81-99 [facility] Mean corpuscular hemoglobin (MCH) determinationOrdered By: Corey De Jesus on 07-03-2024 MCH (RBC) [Entitic mass] 27.1 pg 27.0-32.0 [facility] Mean corpuscular hemoglobin concentration (MCHC) determinationOrdered By: Corey De Jesus on 07-03-2024 MCHC (RBC) [Mass/Vol] 32.5 g/dL 32-36 [facility] Mean platelet volume determi nationOrdered By: Corey De Jesus on 07-03-2024 Platelet mean volume (Bld) [Entitic vol] 9.9 fL 6.2-12.0 [facility] Monocyte percentageOrdered B y: Corey De Jesus on 07-03-2024 Monocytes/100 WBC (Bld) 7.5 % 0-10 [facility] Neutrophil percentageOrdered By: Corey De Jesus on 07-03-2024 Neutrophils/100 WBC (Bld) 47.7 % 47-70 [facility] Nucleated red blood cell per centageOrdered By: Corey De Jesus on 07-03-2024 Nucleated RBC/100 WBC (Bld) [Ratio] 0 % 0-5 [facility] Partial Thromboplast Timeon 07-03-2024 aPTT Coag (Bld) [Time] 28.5 s Normal 24.1-36.2 [facility] Comment on above: Performed By: #### L 500.2500, L501.4021, L300.4310, L300.8000, L100.0100, L300.3900 ####[facility] [address] [place], [address] Platelet countOrdered By: Trever De Jesus on 07-03-2024 Platelets (Bld) [#/Vol] 208 10*3/uL 150-450 [facility] Potassium measurement (mass/ volume)Ordered By: Corey De Jesus on 07-03-2024 Potassium (Unsp spec) [Mass/Vol] 3.3 mmol/L 3.3-5.1 [facility] Prothrombin Time w/INRon INR Coag (PPP) [Relative time] 0.9 {INR} Normal [facility] Comment on above: Performed By: #### L 500.2500, L501.4021, L300.4310, L300.8000, L100.0100, L300.3900 ####[facility] [address] [place], [address] PT Coag (PPP) [Time] 12.4 s Normal 11.7-14.9 [facility] Comment on above: Performed By: #### L 500.2500, L501.4021, L300.4310, L300.8000, L100.0100, L300.3900 ####[facility] [address] [place], [address] Prothrombin timeOrdered By: Corey De Jesus on 07-03-2024 PT Coag (PPP) [Time] 12.4 s 11.7-14.9 [facility] RBC Auto (Bld) [#/Vol]Ordere d By: Corey De Jesus on 07-03-2024 RBC (Bld) [#/Vol] 4.61 10*6/uL 4.2-5.4 [facility] Serum creatinine measurement (mass/volume)Ordered By: Corey De Jesus on 07-03-2024 Creatinine [Mass/Vol] 0.59 mg/dL Low 0.70-1.20 [facility] Serum glucose measurement (m ass/volume)Ordered By: Corey De Jesus on 07-03-2024 Glucose [Mass/Vol] 129 mg/dL High 70-99 [facility] Serum or plasma calcium aminta urement (mass/volume)Ordered By: Corey De Jesus on 07-03-2024 Calcium [Mass/Vol] 9.3 mg/dL 7.6-11.0 [facility] Serum or plasma urea nitroge n measurement (mass/volume)Ordered By: Corey De Jesus on 07-03-2024 Urea nitrogen [Mass/Vol] 17 mg/dL 4-19 [facility] Sodium levelOrdered By: Corey De Jesus on 07-03-2024 Sodium [Moles/Vol] 142 mmol/L 133-145 [facility] Troponin T.cardiac [Mass/vol ume] in Serum or Plasma by High sensitivity methodOrdered By: Corey De Jesus on 07-03-2024 Troponin T.cardiac High sensitivity method [Mass/Vol] < 6 ng/L <14 [facility] Troponin T.cardiac High sensitivity method [Mass/Vol] 7 ng/L <14 [facility] White blood cell (WBC) count Ordered By: Corey De Jesus on 07-03-2024 WBC (Bld) [#/Vol] 6.8 10*3/uL 4.4-11.0 [facility] CNOVon 06-14-2024 CNOV Office Visit (MACRINA ) JAYLIN CARROLL ([id number]) 1960 F Date Time Provider Department 06/14/24 2:40 PM ROBERT FARIAS During your visit today, we recorded the following information about you: Temperature Pulse Blood pressure Weight 98.2 degrees 84/minute 139/85 81.9 kg Height 1.549 m Robert Farias MD 06/14/2024 5:16 PM Signed This note was created using Epiphany[employer]. Subjective Jaylin Carroll is a 63 year [...] Plan First visit 06/19/2020 ( moved from [place] ) RA and wants treatment for that 06/24 ( Q 4 months )) [place] coronary artery disease cannot use NSAID.. RA [...] 2nd 3 rd MCP ) Dr. Mendes [place] [facility] [place] [facility] : 01/2020 last [...] NSAID ) (( 01/2024 NSAID stopped as [place] ) (( no GI bleed, stool blood [...] skin testing (more content not included)... Normal [facility] Cardiology Visit Reporton Cardiology Visit Report Normal [facility] Gastroenterology Visit Repor ton 05-29-2024 Gastroenterology Visit Report Normal [facility] JAYLIN CARROLL ([id number]) 1960 F Date Time Provider Department 05/28/24 ROBERT FARIAS During your visit today, we recorded the following information about you: Balbina Alford 05/28/2024 10:11 AM Signed Kirill Contreras - PENDING [id number] [facility] Balbina Alford, Area Field Worker Rocío Balbina 05/30/2024 10:50 AM Signed Kirill Contreras - ALREADY AUTH ON FILE [id number] 08.04.23 - 08.02.24 [facility] Balbina Alford, Area Field Worker Allergies As of Date: 05/28/2024 Noted Allergy Reaction DEMEROL (MEPERIDINE) 06/19/2020 14 - Other: See Comments Comments: Lowered blood pressure extremely low SULFA (SULFONAMIDE ANTIBIOTICS) 06/19/2020 8 - GI Upset Comments: Stomach pain severe Date Reviewed: 04/11/2024 Reviewed by: Ryan Vasquez RN - Fully Assessed Reason for Visit: ANTONETTEFLEXSUKUMAR - APPROVED [Other] Cmt: Kirill Contreras - ALREADY AUTH ON FILE [id number] 08.04.23 - 08.02.24 [facility] Prescriptions as of 05/30/2024 - hydrOXYchloroQUINE [...] Status:Closed by BALBINA ALFORD on 05/28/24 Normal [facility] Lipid Profileon 05-28-2024 CHOL Normal <=200 [facility] Comment on above: Result Comment: Canc elled via OM: Order cancelled - Patient discharged Performed By: #### L 500.4100 ####[facility] [address] [place], [address] CHOL:HDL Normal [facility] Comment on above: Result Comment: Canc elled via OM: Order cancelled - Patient discharged Performed By: #### L 500.4100 ####[facility] [address] [place], [address] CLDL Normal [facility] Comment on above: Result Comment: Canc elled via OM: Order cancelled - Patient discharged Performed By: #### L 500.4100 ####[facility] [address] [place], [address] HDL Normal [facility] Comment on above: Result Comment: Canc elled via OM: Order cancelled - Patient discharged Performed By: #### L 500.4100 ####[facility] [address] [place], [address] TRIG Normal [facility] Comment on above: Result Comment: Canc elled via OM: Order cancelled - Patient discharged Performed By: #### L 500.4100 ####[facility] [address] [place], [place], [id number] VLDL Normal 5-40 [facility] Comment on above: Result Comment: Canc elled via OM: Order cancelled - Patient discharged Performed By: #### L 500.4100 ####[facility] [address] [place], [place], [address] 12 Lead EKGon 05-27-2024 12 Lead EKG Normal [facility] Absolute lymphocyte countOrd ered By: [facility] Hubert on 05-27-2024 Lymphocytes Auto (Unsp spec) [#/Vol] 2.50 10*3/uL 0.83-4.51 [facility] Absolute neutrophil countOrd ered By: [facility] Hubert on 05-27-2024 Neutrophils (Bld) [#/Vol] 3.6 10*3/uL 2.0-7.7 [facility] Anion gap in Serum or Plasma Ordered By: Natalei Hubert on 05-27-2024 Anion gap [Moles/Vol] 12 mmol/L 5-15 [facility] Automated lymphocyte count a s percentage of total leukocytesOrdered By: [facility] Hubert on 05-27-2024 Lymphocytes/100 WBC Auto (Unsp spec) 35.2 % 19-41 [facility] BUN/creatinine ratioOrdered By: [facility] Hubert on 05-27-2024 Urea nitrogen/Creatinine [Mass ratio] 21.9 mg/mg High 10-20 [facility] Basophil percentageOrdered B y: [facility] Hubert on 05-27-2024 Basophils/100 WBC (Bld) 0.3 % 0-1 [facility] Bedside Glucoseon 05-27-2024 FINGERSTICK GLU 124 mg/dL High 74-106 [facility] Comment on above: Result Comment: DILIA GEMENT OF PATIENT CARE PER NURSING PROTOCOL Performed By: #### L 501.080 ####[facility] [address] [place], [place], [id number] FINGERSTICK GLU 178 mg/dL High 74-106 [facility] Comment on above: Result Comment: DILIA GEMENT OF PATIENT CARE PER NURSING PROTOCOL Performed By: #### L 501.080 ####[facility] [address] [place], [address] Bilirubin, totalOrdered By: Natalie Gaspar on 05-27-2024 Bilirubin [Mass/Vol] 0.25 mg/dL 0.00-1.30 [facility] CBC W/Diff, Automatedon 05-05 Absolute Lymph 2.50 X10 3/uL Normal 0.83-4.51 [facility] Comment on above: Performed By: #### L 100.0100, L500.4050, L501.5200 ####[facility] [address] [place], [address] Absolute Neut 3.6 X10 3/uL Normal 2.0-7.7 [facility] Comment on above: Performed By: #### L 100.0100, L500.4050, L501.5200 ####[facility] [address] [place], [address] Basophils/100 WBC (Bld) 0.3 % Normal 0-1 [facility] Comment on above: Performed By: #### L 100.0100, L500.4050, L501.5200 ####[facility] [address] [place], [address] Eosinophils/100 WBC (Bld) 3.4 % Normal 0-5 [facility] Comment on above: Performed By: #### L 100.0100, L500.4050, L501.5200 ####[facility] [address] [place], [address] Erythrocyte distribution width (RBC) [Ratio] 19.5 % High 11.6-14.6 [facility] Comment on above: Performed By: #### L 100.0100, L500.4050, L501.5200 ####[facility] [address] [place], [address] Hematocrit (Bld) [Volume fraction] 37.1 % Normal 37-47 [facility] Comment on above: Performed By: #### L 100.0100, L500.4050, L501.5200 ####[facility] [address] [place], [address] Hemoglobin (Bld) [Mass/Vol] 11.7 g/dL Low 12.0-15.0 [facility] Comment on above: Performed By: #### L 100.0100, L500.4050, L501.5200 ####[facility] [address] [place], [address] IG% 0.300 Normal 0.0-0.9 [facility] Comment on above: Result Comment: IG% - Immature Granulocytes (promyelocytes, myelocytes andmetamyelocytes) > 1% indicates that a LEFT SHIFT is Present. Performed By: #### L 100.0100, L500.4050, L501.5200 ####[facility] [address] [place], [address] Lymphocytes/100 WBC (Bld) 35.2 % Normal 19-41 [facility] Comment on above: Performed By: #### L 100.0100, L500.4050, L501.5200 ####[facility] [address] [place], [address] MCH (RBC) [Entitic mass] 26.1 pg Low 27.0-32.0 [facility] Comment on above: Performed By: #### L 100.0100, L500.4050, L501.5200 ####[facility] [address] [place], [address] MCHC (RBC) [Mass/Vol] 31.5 g/dL Low 32-36 [facility] Comment on above: Performed By: #### L 100.0100, L500.4050, L501.5200 ####[facility] [address] [place], [address] MCV (RBC) [Entitic vol] 82.8 fL Normal 81-99 [facility] Comment on above: Performed By: #### L 100.0100, L500.4050, L501.5200 ####[facility] [address] [place], [address] Monocytes/100 WBC (Bld) 10.7 % High 0-10 [facility] Comment on above: Performed By: #### L 100.0100, L500.4050, L501.5200 ####[facility] [address] [place], [address] Neutrophils/100 WBC (Bld) 50.1 % Normal 47-70 [facility] Comment on above: Performed By: #### L 100.0100, L500.4050, L501.5200 ####[facility] [address] [place], [address] Nucleated RBC (Bld) [#/Vol] 0 10*3/uL Normal 0-5 [facility] Comment on above: Performed By: #### L 100.0100, L500.4050, L501.5200 ####[facility] [address] [place], [address] Platelet mean volume (Bld) [Entitic vol] 10.3 fL Normal 6.2-12.0 [facility] Comment on above: Performed By: #### L 100.0100, L500.4050, L501.5200 ####[facility] [address] [place], [address] Platelets (Bld) [#/Vol] 183 10*3/uL Normal 150-450 [facility] Comment on above: Performed By: #### L 100.0100, L500.4050, L501.5200 ####[facility] [address] [place], [address] RBC (Bld) [#/Vol] 4.48 10*6/uL Normal 4.2-5.4 [facility] Comment on above: Performed By: #### L 100.0100, L500.4050, L501.5200 ####[facility] [address] [place], [address] RDW SD 57.8 fl High 35.1-43.9 [facility] Comment on above: Performed By: #### L 100.0100, L500.4050, L501.5200 ####[facility] [address] [place], [address] WBC (Bld) [#/Vol] 7.1 10*3/uL Normal 4.4-11.0 [facility] Comment on above: Performed By: #### L 100.0100, L500.4050, L501.5200 ####[facility] [address] [place], [address] Carbon dioxide, total [Moles /volume] in Central venous bloodOrdered By: Natalie Gaspar on 05-27-2024 CO2 [Moles/Vol] 23.1 mmol/L 21.0-32.0 [facility] Cardiovascular stress test r eportOrdered By: Colby Davey on 05-27-2024 Study report [facility] Cardi[facility] Services [address] [place] [address] MR#: [id number] Acct: [id number] Name: JAYLIN CARROLL Rep #: [id number] : 1960 63 From: Colby Davey MD [...] Paul Greco MD; Dr. Isael Baeza, ~ Date Dictated: 05/27/24 1504 Date Transcribed: 05/27/24 150 Compliance Intern: CO Signed [facility] Work Phone: Chloride assayOrdered By: Jenelle Gaspar on 05-27-2024 Chloride [Moles/Vol] 104 mmol/L 98-108 [facility] Comprehensive Metabolic Prof ilon 05-27-2024 Albumin [Mass/Vol] 4.1 g/dL Normal 3.4-4.8 [facility] Comment on above: Performed By: #### L 100.0100, L500.4050, L501.5200 ####[facility] [address] [place], [address] Albumin/Globulin [Mass ratio] 1.9 {ratio} Normal 0.9-2.4 [facility] Comment on above: Performed By: #### L 100.0100, L500.4050, L501.5200 ####[facility] [address] [place], [address] ALK PHOS 79 U/L Normal 35-104 [facility] Comment on above: Performed By: #### L 100.0100, L500.4050, L501.5200 ####[facility] [address] [place], [address] ALT [Catalytic activity/Vol] 20 U/L Normal <=34 [facility] Comment on above: Performed By: #### L 100.0100, L500.4050, L501.5200 ####[facility] [address] [place], [address] AST [Catalytic activity/Vol] 19 U/L Normal <=31 [facility] Comment on above: Performed By: #### L 100.0100, L500.4050, L501.5200 ####[facility] [address] [place], [address] Bilirubin [Mass/Vol] 0.25 mg/dL Normal 0.00-1.30 [facility] Comment on above: Performed By: #### L 100.0100, L500.4050, L501.5200 ####[facility] [address] [place], [address] BUN/CRE 21.9 RATIO High 10-20 [facility] Comment on above: Performed By: #### L 100.0100, L500.4050, L501.5200 ####[facility] [address] [place], [address] Calcium [Mass/Vol] 9.1 mg/dL Normal 7.6-11.0 [facility] Comment on above: Performed By: #### L 100.0100, L500.4050, L501.5200 ####[facility] [address] [place], [address] Chloride [Moles/Vol] 104 mmol/L Normal 98-108 [facility] Comment on above: Performed By: #### L 100.0100, L500.4050, L501.5200 ####[facility] [address] [place], [address] CO2 [Moles/Vol] 23.1 mmol/L Normal 21.0-32.0 [facility] Comment on above: Performed By: #### L 100.0100, L500.4050, L501.5200 ####[facility] [address] [place], [address] Creatinine [Mass/Vol] 0.71 mg/dL Normal 0.70-1.20 [facility] Comment on above: Performed By: #### L 100.0100, L500.4050, L501.5200 ####[facility] [address] [place], [address] ECRCL 79.78 ml/min Normal 50-250 [facility] Comment on above: Performed By: #### L 100.0100, L500.4050, L501.5200 ####[facility] [address] [place], [address] GAP 12 Normal 5-15 [facility] Comment on above: Performed By: #### L 100.0100, L500.4050, L501.5200 ####[facility] [address] [place], [address] GFR/1.73 sq M.predicted among non-blacks MDRD (S/P/Bld) [Vol rate/Area] 96 mL/min/{1.73_m2} Normal >60 [facility] Comment on above: Result Comment: mL/m in/1.73m2 CKD-EPI Creatinine Equation (2020) Performed By: #### L 100.0100, L500.4050, L501.5200 ####[facility] [address] [place], [address] Globulin (S) [Mass/Vol] 2.1 g/dL Low 2.2-4.2 [facility] Comment on above: Performed By: #### L 100.0100, L500.4050, L501.5200 ####[facility] [address] [place], [address] Glucose [Mass/Vol] 196 mg/dL High 70-99 [facility] Comment on above: Performed By: #### L 100.0100, L500.4050, L501.5200 ####[facility] [address] [place], [address] Potassium [Moles/Vol] 3.9 mmol/L Normal 3.3-5.1 [facility] Comment on above: Performed By: #### L 100.0100, L500.4050, L501.5200 ####[facility] [address] [place], [address] Sodium [Moles/Vol] 139 mmol/L Normal 133-145 [facility] Comment on above: Performed By: #### L 100.0100, L500.4050, L501.5200 ####[facility] [address] [place], [address] T PROT 6.3 g/dL Normal 5.9-8.4 [facility] Comment on above: Performed By: #### L 100.0100, L500.4050, L501.5200 ####[facility] [address] [place], [address] Urea nitrogen [Mass/Vol] 16 mg/dL Normal 4-19 [facility] Comment on above: Performed By: #### L 100.0100, L500.4050, L501.5200 ####[facility] [address] [place], [address] Discharge Instructionon 05-05 Discharge Instruction Normal [facility] Electrocardiogram reportOrde red By: Colby Davey on 05-27-2024 EKG study [facility] Cardiovascular Services [address] [place] [address] 12 Lead EKG 05/27/24 0314 MR#: [id number] Acct: [id number] Name: JAYLIN CARROLL Rep #:[id number] : 1960 63 From: Colby Davey MD Attending Dr: Dr. Isael Baeza DO Status: ADM MACIEL Ordering Dr: Natalie Gaspar MD Date: 05/27/24 Location: [facility] Sex: F C Admitted: 05/27/24 Test Reason [...] was found Confirmed by PETAR DORMAN, COLBY ([id number]), school photograph editor ANNALISE HARRISON ([id number]) on 59:48:40 AM Referred By: Confirmed By: COLBY DAVEY MD 05/27/24 0948 Date _ Colby Davey MD CC: Dr. Natalie Gaspar MD; Dr. Paul Greco MD; Dr. Isael Baeza, DO ~ Signed [facility] Work Phone: Eosinophil percentageOrdered By: Natalie Gaspar on 05-27-2024 Eosinophils/100 WBC (Bld) 3.4 % 0-5 [facility] Erythrocyte distribution wid th ratioOrdered By: Natalie Gaspar on 05-27-2024 Erythrocyte distribution width (RBC) [Ratio] 19.5 % High 11.6-14.6 [facility] Erythrocyte distribution wid th standard deviationOrdered By: Natalie Gaspar on 05-27-2024 Erythrocyte distribution width (RBC) [Entitic vol] 57.8 fL High 35.1-43.9 [facility] Erythrocyte distribution width (RBC) [Ratio] 57.8 fl High 35.1-43.9 [facility] Estimation of creatinine debbie aranceOrdered By: Natalie Gaspar on 05-27-2024 Estimated Creatinine Clearance Calc 79.78 ml/min 50-250 [facility] GFR/1.73 sq M.predicted selma g non-blacks MDRD (S/P/Bld) [Vol rate/Area]Ordered By: Natalie Gaspar on 05-27-2024 Estimated GFR (MDRD) Non-Af Amer 96 >60 [facility] Comment on above: mL/min/1.73m2 CKD-EP I Creatinine Equation (2020) Glomerular filtration rate ( GFR) estimation/1.73 sq m using serum, plasma, or whole bOrdered By: Natalie Gaspar on 05-27-2024 GFR/1.73 sq M.predicted among non-blacks MDRD (S/P/Bld) [Vol rate/Area] 96 mL/min/{1.73_m2} >60 [facility] Comment on above: mL/min/1.73m2 CKD-EP I Creatinine Equation (2020) [facility] deOrdered By: Isael Baeza on 05-27-2024 Bedside Glucose (Misc Panel) 124 mg/dL High 74-106 [facility] Comment on above: MANAGEMENT OF PATIEN T CARE PER NURSING PROTOCOL Glucose [Mass/Vol] 124 mg/dL High 74-106 [facility] Comment on above: MANAGEMENT OF PATIEN T CARE PER NURSING PROTOCOL H AND P Exam - Hospitaliston 05-27-2024 H&P Exam - Hospitalist Normal [facility] Hematocrit Auto (Bld) [Volum e fraction]Ordered By: Natalie Gaspar on 05-27-2024 Hematocrit (Bld) [Volume fraction] 37.1 % 37-47 [facility] Hemoglobin measurementOrdere d By: Natalie Gaspar on 05-27-2024 Hemoglobin (Bld) [Mass/Vol] 11.7 g/dL Low 12.0-15.0 [facility] Immature granulocytes/100 WB C Auto (Bld)Ordered By: Hubert on 05-27-2024 Immature granulocytes/100 WBC (Bld) 0.300 % 0.0-0.9 [facility] Comment on above: IG% - Immature Granu locytes (promyelocytes, myelocytes and metamyelocytes) > 1% indicates that a LEFT SHIFT is Present. L499.0042on 05-27-2024 Trop T High Sen < 6 Normal <=14 [facility] Comment on above: Performed By: #### L 499.0042 ####[facility] [address] [place], [address] L499.0043on 05-27-2024 Trop T High Sen < 6 Normal <=14 [facility] Comment on above: Performed By: #### L 499.0043 ####[facility] [address] [place], [address] L501.4021on 05-27-2024 Trop T High Sen 7 ng/L Normal <=14 [facility] Comment on above: Performed By: #### L 501.4021 ####[facility] [address] [place], [address] Laboratory - Chemistry and C hemistry - challengeOrdered By: Natalie Hubert on 05-27-2024 AST [Catalytic activity/Vol] 19 U/L <32 [facility] Lymphocytes Auto (Unsp spec) [#/Vol]Ordered By: Natalie Hubert on 05-27-2024 Lymphocytes (Bld) [#/Vol] 2.50 10*3/uL 0.83-4.51 [facility] Lymphocytes/100 WBC Auto (Un sp spec)Ordered By: on 05-27-2024 Lymphocytes/100 WBC (Bld) 35.2 % 19-41 [facility] MCV (mean corpuscular volume ) determinationOrdered By: Natalie Hubert on 05-27-2024 MCV (RBC) [Entitic vol] 82.8 fL 81-99 [facility] Magnesiumon 05-27-2024 Magnesium [Mass/Vol] 2.1 mg/dL Normal 1.5-2.2 [facility] Comment on above: Performed By: #### L 100.0100, L500.4050, L501.5200 ####[facility] [address] [place], [place], [id number] Magnesium (Unsp spec) [Mass/ Vol]Ordered By: Natalie Gaspar on 05-27-2024 Magnesium [Mass/Vol] 2.1 mg/dL 1.5-2.2 [facility] Magnesium measurement (mass/ volume)Ordered By: Natalie Gaspar on 05-27-2024 Magnesium (Unsp spec) [Mass/Vol] 2.1 mg/dL 1.5-2.2 [facility] Mean corpuscular hemoglobin (MCH) determinationOrdered By: Natalie Gaspar on 05-27-2024 MCH (RBC) [Entitic mass] 26.1 pg Low 27.0-32.0 [facility] Mean corpuscular hemoglobin concentration (MCHC) determinationOrdered By: Natalie Hubert on 05-27-2024 MCHC (RBC) [Mass/Vol] 31.5 g/dL Low 32-36 [facility] Mean platelet volume determi nationOrdered By: Natalie Gaspar on 05-27-2024 Platelet mean volume (Bld) [Entitic vol] 10.3 fL 6.2-12.0 [facility] Monocyte percentageOrdered B y: Natalie Gaspar on 05-27-2024 Monocytes/100 WBC (Bld) 10.7 % High 0-10 [facility] Neutrophil percentageOrdered By: Hubert on 05-27-2024 Neutrophils/100 WBC (Bld) 50.1 % 47-70 [facility] No Panel InformationOrdered By: Natalie Gaspar on 05-27-2024 Troponin T High Sensitivity 7 ng/L <14 [facility] Nucleated red blood cell per centageOrdered By: Natalie Gaspar on 05-27-2024 Nucleated RBC/100 WBC (Bld) [Ratio] 0 % 0-5 [facility] Platelet countOrdered By: Jenelle Gaspar on 05-27-2024 Platelets (Bld) [#/Vol] 183 10*3/uL 150-450 [facility] Potassium (Unsp spec) [Mass/ Vol]Ordered By: Natalie Gaspar on 05-27-2024 Potassium [Moles/Vol] 3.9 mmol/L 3.3-5.1 [facility] Potassium measurement (mass/ volume)Ordered By: Natalie Gaspar on 05-27-2024 Potassium (Unsp spec) [Mass/Vol] 3.9 mmol/L 3.3-5.1 [facility] RBC Auto (Bld) [#/Vol]Ordere d By: Natalie Gaspar on 05-27-2024 RBC (Bld) [#/Vol] 4.48 10*6/uL 4.2-5.4 [facility] Serum creatinine measurement (mass/volume)Ordered By: Natalie Gaspar on 05-27-2024 Creatinine [Mass/Vol] 0.71 mg/dL 0.70-1.20 [facility] Serum globulin measurementOr dered By: Natalie Gaspar on 05-27-2024 Globulin (S) [Mass/Vol] 2.1 g/dL Low 2.2-4.2 [facility] Serum glucose measurement (m ass/volume)Ordered By: Natalie Gaspar on 05-27-2024 Glucose [Mass/Vol] 196 mg/dL High 70-99 [facility] Serum or plasma alanine mesa otransferase (ALT) measurementOrdered By: Natalie Gaspar on 05-27-2024 ALT [Catalytic activity/Vol] 20 U/L <35 [facility] Serum or plasma albumin aminta urement (mass/volume)Ordered By: Natalie Gaspar on 05-27-2024 Albumin [Mass/Vol] 4.1 g/dL 3.4-4.8 [facility] Serum or plasma albumin/glob ulin mass ratioOrdered By: Natalie Gaspar on 05-27-2024 Albumin/Globulin [Mass ratio] 1.9 {ratio} 0.9-2.4 [facility] Serum or plasma alkaline arcelia sphatase measurementOrdered By: Natalie Gaspar on 05-27-2024 ALP [Catalytic activity/Vol] 79 U/L 35-104 [facility] Serum or plasma calcium aminta urement (mass/volume)Ordered By: Natalie Gaspar on 05-27-2024 Calcium [Mass/Vol] 9.1 mg/dL 7.6-11.0 [facility] Serum or plasma urea nitroge n measurement (mass/volume)Ordered By: Natalie Hubert on 05-27-2024 Urea nitrogen [Mass/Vol] 16 mg/dL 4-19 [facility] Sodium levelOrdered By: Loyu mn White on 05-27-2024 Sodium [Moles/Vol] 139 mmol/L 133-145 [facility] Stress Reporton 05-27-2024 Stress Report Normal [facility] Total proteinOrdered By: Loy olmosn Hubert on 05-27-2024 Protein [Mass/Vol] 6.3 g/dL 5.9-8.4 [facility] Troponin T.cardiac High sens itivity method [Mass/Vol]Ordered By: Natalie Gaspar on 05-27-2024 Troponin T High Sensitivity 4 Hour < 6 ng/L <14 [facility] Troponin T High Sensitivity 2 Hour < 6 ng/L <14 [facility] Troponin T.cardiac [Mass/vol ume] in Serum or Plasma by High sensitivity methodOrdered By: Natalie Gaspar on 05-27-2024 Troponin T.cardiac High sensitivity method [Mass/Vol] < 6 ng/L <14 [facility] Troponin T.cardiac High sensitivity method [Mass/Vol] < 6 ng/L <14 [facility] White blood cell (WBC) count Ordered By: Natalie Gaspar on 05-27-2024 WBC (Bld) [#/Vol] 7.1 10*3/uL 4.4-11.0 [facility] .Auto Diffon 05-26-2024 Basophil, Absolute 0.0 10 3/mcL Normal 0.0-0.2 [facility] Comment on above: Performed By: #### M DW, MG, TROPHS, ANEU, PBNP, CBC, GFR, BMP, ADIFF #### [address] [place], [place] [address] Basophils/100 WBC (Bld) 0.5 % Normal 0.0-2.5 [facility] Comment on above: Performed By: #### M DW, MG, TROPHS, ANEU, PBNP, CBC, GFR, BMP, ADIFF #### [address] [address] Eosinophil, Absolute 0.3 10 3/mcL Normal 0.0-0.7 [facility] Comment on above: Performed By: #### M DW, MG, TROPHS, ANEU, PBNP, CBC, GFR, BMP, ADIFF #### [address] [address] Eosinophils/100 WBC (Bld) 3.2 % Normal 0.0-7.0 [facility] Comment on above: Performed By: #### M DW, MG, TROPHS, ANEU, PBNP, CBC, GFR, BMP, ADIFF #### [address] [address] Lymphocyte, Absolute 2.6 10 3/mcL Normal 0.9-4.3 [facility] Comment on above: Performed By: #### M DW, MG, TROPHS, ANEU, PBNP, CBC, GFR, BMP, ADIFF #### [address] [address] Lymphocytes/100 WBC (Bld) 33.0 % Normal 20.0-40.0 [facility] Comment on above: Performed By: #### M DW, MG, TROPHS, ANEU, PBNP, CBC, GFR, BMP, ADIFF #### [address] [address] Monocyte, Absolute 0.7 10 3/mcL Normal 0.1-1.4 [facility] Comment on above: Performed By: #### M DW, MG, TROPHS, ANEU, PBNP, CBC, GFR, BMP, ADIFF #### [address] [address] Monocytes/100 WBC (Bld) 8.5 % Normal 2.0-13.0 [facility] Comment on above: Performed By: #### M DW, MG, TROPHS, ANEU, PBNP, CBC, GFR, BMP, ADIFF #### [address] [address] Neutrophils/100 WBC (Bld) 54.8 % Normal 50.0-75.0 [facility] Comment on above: Performed By: #### M DW, MG, TROPHS, ANEU, PBNP, CBC, GFR, BMP, ADIFF #### [address] [address] .GFRon 05-26-2024 Estimated Glomerular Filtration Rate 79 ml/min/1.73sqm Normal [facility] Comment on above: Result Comment: Stages of [...] the eGFR results. Performed By: #### U A UAMICAO #### [address] [address] .MDWon 05-26-2024 Monocyte Distribution Width 18.55 Normal 0.00-20.00 [facility] Comment on above: Result Comment: For ED adult patients suspected of sepsis, MDW<=20.0 does not rule out sepsis or risk of sepsis Performed By: #### M DW, MG, TROPHS, ANEU, PBNP, CBC, GFR, BMP, ADIFF #### [address] [address] .NEUABSon 05-26-2024 Neutrophil, Absolute 4.4 10 3/mcL Normal 2.3-8.1 [facility] Comment on above: Performed By: #### M DW, MG, TROPHS, ANEU, PBNP, CBC, GFR, BMP, ADIFF #### [address] [place], [place] [address] .Urinalysis Microscopic (AO) on 05-26-2024 UA RBC None Seen Normal None Seen [facility] Comment on above: Performed By: #### U A, UAMICAO #### [address] [address] UA Squam Epithelial 0-5 Abnormal None Seen [facility] Comment on above: Performed By: #### U A, UAMICAO #### [address] [address] UA WBC 0-5 Abnormal None Seen [facility] Comment on above: Performed By: #### U A, UAMICAO #### [address] [address] BMPon 05-26-2024 BUN/Creatinine Ratio 18 ratio Normal 7-27 [facility] Comment on above: Performed By: #### M DW, MG, TROPHS, ANEU, PBNP, CBC, GFR, BMP, ADIFF #### [address] [address] Calcium [Mass/Vol] 9.5 mg/dL Normal 8.4-10.2 [facility] Comment on above: Performed By: #### M DW, MG, TROPHS, ANEU, PBNP, CBC, GFR, BMP, ADIFF #### [address] [address] Chloride [Moles/Vol] 102 mmol/L Normal 98-107 [facility] Comment on above: Performed By: #### M DW, MG, TROPHS, ANEU, PBNP, CBC, GFR, BMP, ADIFF #### [address] [address] CO2 [Moles/Vol] 27 mmol/L Normal 23-31 [facility] Comment on above: Performed By: #### M DW, MG, TROPHS, ANEU, PBNP, CBC, GFR, BMP, ADIFF #### [address] [address] Creatinine [Mass/Vol] 0.83 mg/dL Normal 0.55-1.02 [facility] Comment on above: Result Comment: Test ing performed on Siemens Dimension EXL analyzer using a modified kinetic Jaya technique. Performed By: #### M DW, MG, TROPHS, ANEU, PBNP, CBC, GFR, BMP, ADIFF #### [address] [address] Electrolyte Balance 9.0 mEq/L Normal 4.0-15.0 [facility] Comment on above: Performed By: #### M DW, MG, TROPHS, ANEU, PBNP, CBC, GFR, BMP, ADIFF #### [address] [address] Glucose [Mass/Vol] 268 mg/dL High 80-115 [facility] Comment on above: Performed By: #### M DW, MG, TROPHS, ANEU, PBNP, CBC, GFR, BMP, ADIFF #### [address] [address] Potassium [Moles/Vol] 3.6 mmol/L Normal 3.5-5.1 [facility] Comment on above: Performed By: #### M DW, MG, TROPHS, ANEU, PBNP, CBC, GFR, BMP, ADIFF #### [address] [address] Sodium [Moles/Vol] 138 mmol/L Normal 136-145 [facility] Comment on above: Performed By: #### M DW, MG, TROPHS, ANEU, PBNP, CBC, GFR, BMP, ADIFF #### [address] [address] Urea nitrogen [Mass/Vol] 15 mg/dL Normal 7-18 [facility] Comment on above: Performed By: #### M DW, MG, TROPHS, ANEU, PBNP, CBC, GFR, BMP, ADIFF #### [address] [address] CBCon 05-26-2024 Erythrocyte distribution width (RBC) [Ratio] 21.0 % High 11.5-15.5 [facility] Comment on above: Performed By: #### M DW, MG, TROPHS, ANEU, PBNP, CBC, GFR, BMP, ADIFF #### [address] [address] Hematocrit (Bld) [Volume fraction] 39.8 % Normal 34.0-46.0 [facility] Comment on above: Performed By: #### M DW, MG, TROPHS, ANEU, PBNP, CBC, GFR, BMP, ADIFF #### [address] [address] Hgb 12.8 G/dL Normal 12.0-16.0 [facility] Comment on above: Performed By: #### M DW, MG, TROPHS, ANEU, PBNP, CBC, GFR, BMP, ADIFF #### [address] [address] MCH (RBC) [Entitic mass] 25.7 pg Low 27.0-33.0 [facility] Comment on above: Performed By: #### M DW, MG, TROPHS, ANEU, PBNP, CBC, GFR, BMP, ADIFF #### [address] [address] MCHC 32.1 G/dL Normal 32.0-36.0 [facility] Comment on above: Performed By: #### M DW, MG, TROPHS, ANEU, PBNP, CBC, GFR, BMP, ADIFF #### [address] [address] MCV (RBC) [Entitic vol] 80.2 fL Normal 80.0-99.0 [facility] Comment on above: Performed By: #### M DW, MG, TROPHS, ANEU, PBNP, CBC, GFR, BMP, ADIFF #### [address] [address] Platelet 179 10 3/mcL Normal 150-450 [facility] Comment on above: Performed By: #### M DW, MG, TROPHS, ANEU, PBNP, CBC, GFR, BMP, ADIFF #### [address] [address] Platelet mean volume (Bld) [Entitic vol] 8.6 fL Normal 6.6-10.5 [facility] Comment on above: Performed By: #### M DW, MG, TROPHS, ANEU, PBNP, CBC, GFR, BMP, ADIFF #### [address] [address] RBC 4.96 10 6/mcL Normal 4.10-5.30 [facility] Comment on above: Performed By: #### M DW, MG, TROPHS, ANEU, PBNP, CBC, GFR, BMP, ADIFF #### [address] [address] WBC 8.0 10 3/mcL Normal 4.5-10.8 [facility] Comment on above: Performed By: #### M DW, MG, TROPHS, ANEU, PBNP, CBC, GFR, BMP, ADIFF #### [address] [address] [address] HEAD OR BRAIN W/O CONTRAS Ton [...] Date: 05/26/2024 9:29:37 PM Ordering Provider: GAUTAM RANICHANDA Normal [facility] MGon 05-26-2024 Magnesium [Mass/Vol] 1.5 mg/dL Low 1.8-2.4 [facility] Comment on above: Performed By: #### U LIU Hope #### [address] [address] PBNPon 05-26-2024 Natriuretic peptide B (Bld) [Mass/Vol] 80 pg/mL Normal 0-125 [facility] Comment on above: Result Comment: NT-p roBNP results of less than 300 pg/mL effectively rules out acute congestive heart failure with 99% negative predictive value. Performed By: #### LIU Rodriguez #### [address] [address] TROPHSon 05-26-2024 High Sensitivity Troponin I 74 ng/L High 0-51 [facility] Comment on above: Result Comment: High Sensitive Troponin I Reference Ranges: Female: 0-51 ng/L Male: 0-76 ng/L Testing performed on [place] using a homogeneous sandwich chemiluminescent immunoassay based on Noquo technology. Performed By: #### T ROP #### [place] [address] High Sensitivity Troponin I 81 ng/L High 0-51 [facility] Comment on above: Result Comment: High Sensitive Troponin I Reference Ranges: Female: 0-51 ng/L Male: 0-76 ng/L Testing performed on Dimension EXL using a homogeneous sandwich chemiluminescent immunoassay based on Noquo technology. Performed By: #### M DW, MG, TROPHS, ANEU, PBNP, CBC, GFR, BMP, ADIFF #### [address] [address] [facility] 05-26-2024 Color (U) Yellow Normal [facility] Comment on above: Performed By: #### U LIU Hope #### [address] [address] Glucose (U) [Mass/Vol] Negative Normal Negative [facility] Comment on above: Performed By: #### U LIU Hope #### [place] [address] Ketones Ql (U) Negative Normal Negative [facility] Comment on above: Performed By: #### U A, UAMICAO #### [place] [address] UA Appear Clear Normal Clear [facility] Comment on above: Performed By: #### U A, UAMICAO #### [place] [address] UA Blood Negative Normal Negative [facility] Comment on above: Performed By: #### U A, UAMICAO #### [place] [address] UA Leuk Est Small Abnormal Negative [facility] Comment on above: Performed By: #### U A, UAMICAO #### [place] [address] UA Nitrite Negative Normal Negative [facility] Comment on above: Performed By: #### U A, UAMICAO #### [place] [address] UA pH 6.0 Normal 5.0 - 8.0 [facility] Comment on above: Performed By: #### U A, UAMICAO #### [place] [address] UA Protein Negative Normal Negative [facility] Comment on above: Performed By: #### U A, UAMICAO #### [place] [address] UA Spec Grav 1.025 Normal 1.015-1.025 [facility] Comment on above: Performed By: #### U A, UAMICAO #### [place] [address] UA Specimen Type Clean Catch Normal [facility] Comment on above: Performed By: #### U A, UAMICAO #### [place] [address] UA Urobilinogen 0.2 E.U./dL Normal 0.2-1.0 [facility] Comment on above: Performed By: #### U LIU Hope #### [facility] [address] [place], [place] [address] Urobilinogen (U) [Mass/Vol] Negative Normal Negative [facility] Comment on above: Performed By: #### U LIU Hope #### [facility] [address] [place], [place] [address] XR CHEST 1 VIEWon 05-26-2024 XR CHEST [...] 9:32:39 PM Ordering Provider: GAUTAM ADAM Normal [facility] Lower GI hemoglobin IA Ql (S tl)Ordered By: Andressa Haney on 05-03-2024 Stool Occult Blood (MIGDALIA) [facility] Stool Occult Blood iFOBon STOB Normal [facility] Comment on above: Performed By: #### M 100.7900 ####[facility] [address] [place], [place], [id number] Stool gastrointestinal hemog lobin detection by immunologic methodOrdered By: Andressa Haney on 05-03-2024 Lower GI hemoglobin IA Ql (Stl) [facility] Gastroenterology Visit Repor ton 04-30-2024 Gastroenterology Visit Report Normal [facility] Bedside Glucoseon 04-15-2024 FINGERSTICK GLU 122 mg/dL High 74-106 [facility] Comment on above: Result Comment: DILIA SALCEDO OF PATIENT CARE PER NURSING PROTOCOL Performed By: #### L 501.080 ####[facility] [address] [place], [place], [address] Colonoscopy Reporton 025 Colonoscopy Report Normal [facility] EGD Reporton 04-15-2024 EGD Report Normal [facility] Glucose measurement at [facility] deOrdered By: Ken Xie on 04-15-2024 Bedside Glucose (Misc Panel) 122 mg/dL High 74-106 [facility] Comment on above: MANAGEMENT OF PATIEN T CARE PER NURSING PROTOCOL Glucose [Mass/Vol] 122 mg/dL High 74-106 [facility] Comment on above: MANAGEMENT OF PATIEN T CARE PER NURSING PROTOCOL H Pylori (initial)on 025 H Pylori (initial) Normal [facility] Comment on above: Performed By: #### P H.PYLORI ####[facility] [address] [place], [address] MR/POSTOP.ANEon 04-15-2024 MR/POSTOP.ANE Normal [facility] MR/[id number] 04-15-2024 MR/POSTOPAN2 Normal [facility] Surgery Specimen Level Naina 04-15-2024 Surgery Specimen Level IV Normal [facility] Comment on above: Performed By: #### P SUIV ####[facility] [id number] [place], [address] MR/PAT.ANEon 04-12-2024 MR/PAT.ANE Normal [facility] CBC W Auto Differential pane l (Bld)on 04-11-2024 Basophils (Bld) [#/Vol] 0.03 10*3/uL [facility] Basophils/100 WBC (Bld) 0.4 % C [facility] Differential cell count method Nom (Bld) Auto [facility] Eosinophils (Bld) [#/Vol] 0.23 10*3/uL [facility] Eosinophils/100 WBC (Bld) 3.2 % [facility] Erythrocyte distribution width (RBC) [Ratio] 19.3 % High 11.5 - 15.0 % [facility] Hematocrit (Bld) [Volume fraction] 36.9 % 36.0 - 46.0 % [facility] Hemoglobin (Bld) [Mass/Vol] 10.9 g/dL Low 11.5 - 15.5 g/dL [facility] Immature granulocytes (Bld) [#/Vol] 0.03 10*3/uL [facility] Immature granulocytes/100 WBC (Bld) 0.4 % [facility] Interpretation and review of laboratory results Abnormal [facility] Lymphocytes (Bld) [#/Vol] 2.65 10*3/uL [facility] Lymphocytes/100 WBC (Bld) 36.6 % [facility] MCH (RBC) [Entitic mass] 24.8 pg Low 26.0 - 34.0 pg [facility] MCHC (RBC) [Mass/Vol] 29.5 g/dL Low 30.5 - 36.0 g/dL [facility] MCV (RBC) [Entitic vol] 83.9 fL 80.0 - 100.0 fL [facility] Monocytes (Bld) [#/Vol] 0.42 10*3/uL [facility] Monocytes/100 WBC (Bld) 5.8 % C [facility] Neutrophils (Bld) [#/Vol] 3.89 10*3/uL [facility] Neutrophils/100 WBC (Bld) 53.6 % [facility] Nucleated RBC (Bld) [#/Vol] [facility] Nucleated RBC/100 WBC (Bld) [Ratio] 0.0 % /100 WBC [facility] Platelet mean volume (Bld) [Entitic vol] 10.1 fL 9.0 - 12.7 fL [facility] Platelets (Bld) [#/Vol] 315 10*3/uL [facility] RBC (Bld) [#/Vol] 4.40 10*6/uL 3.90 - 5.2 0 m/uL [facility] WBC (Bld) [#/Vol] 7.25 10*3/uL [facility] Basophils (Bld) [#/Vol] 0.03 10*3/uL Normal <0.11 [facility] Comment on above: Order Comment: Speci men Type: BLOOD SPECIMEN Ordering Facility: [facility] Address: [address] [place] [address] Performed By: #### 5 7021-8 #### [facility] CLIA [id number] [address] Basophils/100 WBC (Bld) 0.4 % Normal A [facility] Comment on above: Order Comment: Speci men Type: BLOOD SPECIMEN Ordering Facility: [facility] Address: [address] [place] [address] Performed By: #### 5 7021-8 #### [facility] CLIA [id number] [address] Differential cell count method Nom (Bld) Auto Normal [facility] Comment on above: Order Comment: Speci men Type: BLOOD SPECIMEN Ordering Facility: [facility] Address: [address] [place] [address] Performed By: #### 5 7021-8 #### [facility] CLIA [id number] [address] OF [facility] Eosinophils (Bld) [#/Vol] 0.23 10*3/uL Normal <0.46 [facility] Comment on above: Order Comment: Speci men Type: BLOOD SPECIMEN Ordering Facility: [facility] Address: [address] [place] [address] Performed By: #### 5 7021-8 #### [facility] CLIA [id number] [address] Eosinophils/100 WBC (Bld) 3.2 % Normal [facility] Comment on above: Order Comment: Speci men Type: BLOOD SPECIMEN Ordering Facility: [facility] Address: [address] [place] [address] Performed By: #### 5 7021-8 #### [facility] CLIA [id number] [address] Erythrocyte distribution width (RBC) [Ratio] 19.3 % High 11.5-15.0 [facility] Comment on above: Order Comment: Speci men Type: BLOOD SPECIMEN Ordering Facility: [facility] Address: [facility] [place] [address] Performed By: #### 5 7021-8 #### [facility] CLIA [id number] [address] [place] Hematocrit (Bld) [Volume fraction] 36.9 % Normal 36.0-46.0 [facility] Comment on above: Order Comment: Speci men Type: BLOOD SPECIMEN Ordering Facility: [facility] Address: [address] [place] [address] Performed By: #### 5 7021-8 #### [facility] CLIA [id number] [address] [place] Hemoglobin (Bld) [Mass/Vol] 10.9 g/dL Low 11.5-15.5 [facility] Comment on above: Order Comment: Speci men Type: BLOOD SPECIMEN Ordering Facility: [facility] Address: [address] [place] [address] Performed By: #### 5 7021-8 #### [facility] CLIA [id number] [address] Immature granulocytes (Bld) [#/Vol] 0.03 10*3/uL Normal <0.10 [facility] Comment on above: Order Comment: Speci men Type: BLOOD SPECIMEN Ordering Facility: [facility] Address: [address] [place] [address] Performed By: #### 5 7021-8 #### [facility] CLIA [id number] [address] [place] Immature granulocytes/100 WBC (Bld) 0.4 % Normal [facility] Comment on above: Order Comment: Speci men Type: BLOOD SPECIMEN Ordering Facility: [facility] Address: [address] [place] [address] Performed By: #### 5 7021-8 #### [facility] CLIA [id number] [address] [place] Lymphocytes (Bld) [#/Vol] 2.65 10*3/uL Normal 1.00-4.00 [facility] Comment on above: Order Comment: Speci men Type: BLOOD SPECIMEN Ordering Facility: [facility] Address: [address] [place] [address] Performed By: #### 5 7021-8 #### [facility] CLIA [id number] [address] Lymphocytes/100 WBC (Bld) 36.6 % Normal [facility] Comment on above: Order Comment: Speci men Type: BLOOD SPECIMEN Ordering Facility: [facility] Address: [address] [place] [address] Performed By: #### 5 7021-8 #### [facility] CLIA [id number] [address] OF [facility] MCH (RBC) [Entitic mass] 24.8 pg Low 26.0-34.0 [facility] Comment on above: Order Comment: Speci men Type: BLOOD SPECIMEN Ordering Facility: [facility] Address: [address] [place] [address] Performed By: #### 5 7021-8 #### [facility] CLIA [id number] [address] OF [facility] MCHC (RBC) [Mass/Vol] 29.5 g/dL Low 30.5-36.0 [facility] Comment on above: Order Comment: Speci men Type: BLOOD SPECIMEN Ordering Facility: [facility] Address: [address] [place] [address] Performed By: #### 5 7021-8 #### [facility] CLIA [id number] [address] MCV (RBC) [Entitic vol] 83.9 fL Normal 80.0-100.0 [place] Comment on above: Order Comment: Speci men Type: BLOOD SPECIMEN Ordering Facility: [facility] Address: [address] [place] [address] Performed By: #### 5 7021-8 #### [facility] CLIA [id number] [address] [place] Monocytes (Bld) [#/Vol] 0.42 10*3/uL Normal <0.87 [facility] Comment on above: Order Comment: Speci men Type: BLOOD SPECIMEN Ordering Facility: [facility] Address: [address] [place] [address] Performed By: #### 5 7021-8 #### [facility] CLIA [id number] [address] [place] Monocytes/100 WBC (Bld) 5.8 % Normal A [facility] Comment on above: Order Comment: Speci men Type: BLOOD SPECIMEN Ordering Facility: [facility] Address: [address] [place] [address] Performed By: #### 5 7021-8 #### [facility] CLIA [id number] [address] [place] Neutrophils (Bld) [#/Vol] 3.89 10*3/uL Normal 1.45-7.50 [facility] Comment on above: Order Comment: Speci men Type: BLOOD SPECIMEN Ordering Facility: [facility] Address: [address] [place] [address] Performed By: #### 5 7021-8 #### [facility] CLIA [id number] [address] [place] Neutrophils/100 WBC (Bld) 53.6 % Normal [facility] Comment on above: Order Comment: Speci men Type: BLOOD SPECIMEN Ordering Facility: [facility] Address: [address] [place] [address] Performed By: #### 5 7021-8 #### [facility] CLIA [id number] [address] [place] Nucleated RBC (Bld) [#/Vol] 10*3/uL Normal <0.01 [facility] Comment on above: Order Comment: Speci men Type: BLOOD SPECIMEN Ordering Facility: [facility] Address: [address] [place] [address] Performed By: #### 5 7021-8 #### [facility] CLIA [id number] [address] [place] Nucleated RBC/100 WBC (Bld) [Ratio] 0.0 /100 WBC Normal [facility] Comment on above: Order Comment: Speci men Type: BLOOD SPECIMEN Ordering Facility: [facility] Address: [address] [place] [address] Performed By: #### 5 7021-8 #### [facility] CLIA [id number] [address] [place] Platelet mean volume (Bld) [Entitic vol] 10.1 fL Normal 9.0-12.7 [facility] Comment on above: Order Comment: Speci men Type: BLOOD SPECIMEN Ordering Facility: [facility] Address: [address] [place] [address] Performed By: #### 5 7021-8 #### [facility] CLIA [id number] [address] [place] Platelets (Bld) [#/Vol] 315 10*3/uL Normal 150-400 [facility] Comment on above: Order Comment: Speci men Type: BLOOD SPECIMEN Ordering Facility: [facility] Address: [address] [place] [address] Performed By: #### 5 7021-8 #### [facility] CLIA [id number] [address] [place] RBC (Bld) [#/Vol] 4.40 10*6/uL Normal 3.90-5.20 [facility] Comment on above: Order Comment: Speci men Type: BLOOD SPECIMEN Ordering Facility: [facility] Address: [address] [place] [address] Performed By: #### 5 7021-8 #### [facility] CLIA [id number] [address] [place] WBC (Bld) [#/Vol] 7.25 10*3/uL Normal 3.70-11.00 [facility] Comment on above: Order Comment: Matt patricio Type: BLOOD SPECIMEN Ordering Facility: [facility] Address: [address] [place] [address] Performed By: #### 5 7021-8 #### [facility] CLIA [id number] 1 [place] [address] [place] [facility] Comprehensive metabolic 2000 panelon 04-11-2024 Albumin [Mass/Vol] 4.1 g/dL 3.9 - 4.9 g/dL [facility] ALP [Catalytic activity/Vol] 88 U/L 34 - 123 U/L [facility] ALT [Catalytic activity/Vol] 19 U/L 7 - 38 U/L [facility] Anion gap [Moles/Vol] 8 mmol/L 8 - 15 mmol/L [facility] AST [Catalytic activity/Vol] 13 U/L 13 - 35 U/L [facility] Bilirubin [Mass/Vol] 0.4 mg/dL 0.2 - 1 .3 mg/dL [facility] Comment on above: Use of this assay is not recommended for patients undergoing treatment with eltrombopag due to the potential for falsely elevated results. Calcium [Mass/Vol] 9.5 mg/dL 8.5 - 10. 2 mg/dL [facility] Chloride [Moles/Vol] 106 mmol/L 98 - 10 7 mmol/L [facility] CO2 [Moles/Vol] 25 mmol/L 22 - 30 mmol/L [facility] Creatinine [Mass/Vol] 0.54 mg/dL Low 0.58 - 0.96 mg/dL [facility] Comment on above: Use of this assay is not recommended for patients undergoing treatment with phenindione, due to the potential for falsely depressed results. GFR/1.73 sq M.predicted among non-blacks MDRD (S/P/Bld) [Vol rate/Area] 104 mL/min/{1.73_m2} - PINF [facility] Comment on above: Estimated Glomerular Filtration [...] 148 mg/dL High 74 - 99 mg/dL [facility] Comment on above: The [place] [employer] (ADA) provides guidance for [...] Standards of Medical Care in Diabetes 2016, [place] [employer]. Diabetes Care. 2016.39(Suppl 1). Interpretation and review of laboratory results Abnormal [facility] Potassium [Moles/Vol] 3.5 mmol/L Low 3.7 - 5.1 mmol/L [facility] Protein [Mass/Vol] 7.1 g/dL 6.3 - 8.0 g/dL [facility] Sodium [Moles/Vol] 139 mmol/L 136 - 144 mmol/L [facility] Urea nitrogen [Mass/Vol] 12 mg/dL 7 - 21 mg/dL [facility] Albumin [Mass/Vol] 4.1 g/dL Normal 3.9-4.9 [facility] Comment on above: Order Comment: Latonyai sheng Type: BLOOD SPECIMEN Ordering Facility: [facility] Address: [address] [place] [address] Performed By: #### 4 537-7 #### [facility] CLIA [id number] [address] [place] [address] [place] ALP [Catalytic activity/Vol] 88 U/L Normal 34-123 [facility] Comment on above: Order Comment: Latonyai sheng Type: BLOOD SPECIMEN Ordering Facility: [facility] Address: [address] [place] [address] Performed By: #### 4 537-7 #### [facility] CLIA [id number] [address] [place] [id number] [place] ALT [Catalytic activity/Vol] 19 U/L Normal 7-38 [facility] Comment on above: Order Comment: Speci men Type: BLOOD SPECIMEN Ordering Facility: [facility] Address: [address] [place] [address] Performed By: #### 4 537-7 #### [facility] CLIA [id number] [address] [place] [address] [place] Anion gap [Moles/Vol] 8 mmol/L Normal 8-15 [facility] Comment on above: Order Comment: Speci men Type: BLOOD SPECIMEN Ordering Facility: [facility] Address: [address] [place] [address] Performed By: #### 4 537-7 #### [facility] CLIA [id number] [address] [place] [address] [place] AST [Catalytic activity/Vol] 13 U/L Normal 13-35 [facility] Comment on above: Order Comment: Speci men Type: BLOOD SPECIMEN Ordering Facility: [facility] Address: [address] [place] [address] Performed By: #### 4 537-7 #### [facility] CLIA [id number] [address] [place] [address] [place] Bilirubin [Mass/Vol] 0.4 mg/dL Normal 0.2-1.3 [facility] Comment on above: Order Comment: Speci men Type: BLOOD SPECIMEN Ordering Facility: [facility] Address: [address] [place] [address] Result Comment: Use of this assay is not recommended for patients undergoing treatment with eltrombopag due to the potential for falsely elevated results. Performed By: #### 4 537-7 #### [facility] CLIA [id number] [address] [place] [address] [place] Calcium [Mass/Vol] 9.5 mg/dL Normal 8.5-10.2 [facility] Comment on above: Order Comment: Speci men Type: BLOOD SPECIMEN Ordering Facility: [facility] Address: [address] [place] [address] Performed By: #### 4 537-7 #### [facility] CLIA [id number] [address] [place] [address] [place] Chloride [Moles/Vol] 106 mmol/L Normal 98-107 [facility] Comment on above: Order Comment: Speci men Type: BLOOD SPECIMEN Ordering Facility: [facility] Address: [address] [place] [address] Performed By: #### 4 537-7 #### [facility] CLIA [id number] [address] [place] [address] [place] CO2 [Moles/Vol] 25 mmol/L Normal 22-30 [facility] Comment on above: Order Comment: Speci men Type: BLOOD SPECIMEN Ordering Facility: [facility] Address: [address] [place] [address] Performed By: #### 4 537-7 #### [facility] CLIA [id number] [address] [place] [address] [place] Creatinine [Mass/Vol] 0.54 mg/dL Low 0.58-0.96 [facility] Comment on above: Order Comment: Speci men Type: BLOOD SPECIMEN Ordering Facility: [facility] Address: [address] [place] [address] Result Comment: Use of this assay is not recommended for patients undergoing treatment with phenindione, due to the potential for falsely depressed results. Performed By: #### 4 537-7 #### [facility] CLIA [id number] [address] [place] [address] [place] Creatinine and Glomerular filtration rate.predicted panel (S/P/Bld) 104 mL/min/1.73m??? Normal >=60 [facility] Comment on above: Order Comment: Speci men Type: BLOOD SPECIMEN Ordering Facility: [facility] Address: [address] [place] [address] Result Comment: Glynn mated Glomerular Filtration Rate [...] GFR. Performed By: #### 4 537-7 #### [facility] CLIA [id number] [address] [place] [address] [place] Glucose [Mass/Vol] 148 mg/dL High 74-99 [facility] Comment on above: Order Comment: Matt patricio Type: BLOOD SPECIMEN Ordering Facility: [facility] Address: [address] [place] [address] Result Comment: The [place] [employer] (ADA) provides guidance for cutoff [...] Standards of Medical Care in Diabetes 2016, [place] [employer]. Diabetes Care. 2016.39(Suppl 1). Performed By: #### 4 537-7 #### [facility] CLIA [id number] [address] [place], [place] [id number] [place] Potassium [Moles/Vol] 3.5 mmol/L Low 3.7-5.1 [facility] Comment on above: Order Comment: Matt patricio Type: BLOOD SPECIMEN Ordering Facility: [facility] Address: [address] [place], [place] [id number] Performed By: #### 4 537-7 #### [facility] CLIA [id number] [address] [place] [address] [place] Protein [Mass/Vol] 7.1 g/dL Normal 6.3-8.0 [facility] Comment on above: Order Comment: Speci men Type: BLOOD SPECIMEN Ordering Facility: [facility] Address: [address] [place] [address] Performed By: #### 4 537-7 #### [facility] CLIA [id number] [address] [place] [address] [place] Sodium [Moles/Vol] 139 mmol/L Normal 136-144 [facility] Comment on above: Order Comment: Speci men Type: BLOOD SPECIMEN Ordering Facility: [facility] Address: [address] [place] [address] Performed By: #### 4 537-7 #### [facility] CLIA [id number] [address] [place] [address] [place] Urea nitrogen [Mass/Vol] 12 mg/dL Normal 7-21 [facility] Comment on above: Order Comment: Speci men Type: BLOOD SPECIMEN Ordering Facility: [facility] Address: [address] [place] [address] Performed By: #### 4 537-7 #### [facility] CLIA [id number] [address] [place] [address] [place] L501.4020on 03-11-2024 TROPONIN-I HS 412 pg/mL Invalid Interpretation Code 3.0-54.0 [facility] Comment on above: Order Comment: 'TROP ' Serial specimen #1, #2 or #3: 3 Result Comment: Crit ical Result(s) Called at: 04:15:30 03/11/2024 by: Karin. to Nicole [facility]. Results read back by same. Please Note: New Test Units and Gender Specific Reference Ranges. For more information see Policy Stat Procedure Kerrick High Sensitivity Troponin (TNIH) and attachments. Performed By: #### L 501.4020 ####[facility] [address] [place], [address] Troponin IOrdered By: Osmani Marie on 03-11-2024 Troponin I High Sensitivity 412 pg/mL High 3.0-54.0 [facility] Comment on above: Critical Result(s) C alled at: 04:15:30 03/11/2024 by: Pj Oswald. to LSparr HOUSEKEEPER AND LAUNDRY ASSISTANT. Results read back by same. Please Note: New Test Units and Gender Specific Reference Ranges. For more information see Policy Stat Procedure Kerrick High Sensitivity Troponin (TNIH) and attachments. 12 Lead EKGon 03-10-2024 12 Lead EKG Normal [facility] Absolute neutrophil countOrd ered By: Paco Sellers on 03-10-2024 Neutrophils (Bld) [#/Vol] 8.0 10*3/uL High 2.0-7.7 [facility] Basic Metabolic Profile (BMP )on 03-10-2024 BUN/CRE 13.4 RATIO Normal 10-20 [facility] Comment on above: Order Comment: 1Y Performed By: #### L 500.2500, L100.0100, L501.5425 ####[facility] [address] [place], [address] CA,Total 9.3 mg/dL Normal 8.5-10.1 [facility] Comment on above: Order Comment: 1Y Performed By: #### L 500.2500, L100.0100, L501.5425 ####[facility] [address] [place], [address] Chloride [Moles/Vol] 103 mmol/L Normal 98-107 [facility] Comment on above: Order Comment: 1Y Performed By: #### L 500.2500, L100.0100, L501.5425 ####[facility] [address] [place], [address] CO2 [Moles/Vol] 26.0 mmol/L Normal 21.0-32.0 [facility] Comment on above: Order Comment: 1Y Performed By: #### L 500.2500, L100.0100, L501.5425 ####[facility] [address] [place], [address] Creatinine [Mass/Vol] 0.67 mg/dL Normal 0.55-1.02 [facility] Comment on above: Order Comment: 1Y Result Comment: The validity of the calculated GFR GFRAA in patients over70 years has not been determined. Clinical correlation isessential. Performed By: #### L 500.2500, L100.0100, L501.5425 ####[facility] [address] [place], [address] ECRCL 84.43 ml/min Normal [facility] Comment on above: Order Comment: 1Y Performed By: #### L 500.2500, L100.0100, L501.5425 ####[facility] [address] [place], [address] EST GFR - AA 114 mL/min Normal >60 [facility] Comment on above: Order Comment: 1Y Result Comment: Afri can Nepalese GFR Calc Performed By: #### L 500.2500, L100.0100, L501.5425 ####[facility] [address] [place], [address] GAP 8 Normal 5-15 [facility] Comment on above: Order Comment: 1Y Performed By: #### L 500.2500, L100.0100, L501.5425 ####[facility] [address] [place], [address] GFR/1.73 sq M.predicted among non-blacks MDRD (S/P/Bld) [Vol rate/Area] 94 mL/min/{1.73_m2} Normal >60 [facility] Comment on above: Order Comment: 1Y Result Comment: Non- GFR Calc Performed By: #### L 500.2500, L100.0100, L501.5425 ####[facility] [address] [place], [address] Glucose [Mass/Vol] 349 mg/dL High 74-106 [facility] Comment on above: Order Comment: 1Y Result Comment: Gluc ose result greater than or equal to 200 mg/dLsuggests DIABETES MELLITUS per A.D.A. criteria. Performed By: #### L 500.2500, L100.0100, L501.5425 ####[facility] [address] [place], [address] Potassium [Moles/Vol] 3.4 mmol/L Low 3.5-5.1 [facility] Comment on above: Order Comment: 1Y Performed By: #### L 500.2500, L100.0100, L501.5425 ####[facility] [address] [place], [address] Sodium [Moles/Vol] 137 mmol/L Normal 136-145 [facility] Comment on above: Order Comment: 1Y Performed By: #### L 500.2500, L100.0100, L501.5425 ####[facility] [address] [place], [address] Urea nitrogen [Mass/Vol] 9 mg/dL Normal 7-18 [facility] Comment on above: Order Comment: 1Y Performed By: #### L 500.2500, L100.0100, L501.5425 ####[facility] [address] [place], [address] Basophil percentageOrdered B y: Paco Sellers on 03-10-2024 Basophils/100 WBC (Bld) 0.3 % 0-1 [facility] Blood urea nitrogen (BUN)/cr eatinine ratioOrdered By: Paco Sellers on 03-10-2024 Urea nitrogen/Creatinine [Mass ratio] 13.4 mg/mg 10-20 [facility] CBC W/Diff, Automatedon 01-0 5-2025 Absolute Lymph 1.59 X10 3/uL Normal 0.83-4.51 [facility] Comment on above: Performed By: #### L 500.2500, L100.0100, L501.5425 ####[facility] [address] [place], [address] Absolute Neut 8.0 X10 3/uL High 2.0-7.7 [facility] Comment on above: Performed By: #### L 500.2500, L100.0100, L501.5425 ####[facility] [address] [place], [address] Basophils/100 WBC (Bld) 0.3 % Normal 0-1 [facility] Comment on above: Performed By: #### L 500.2500, L100.0100, L501.5425 ####[facility] [address] [place], [address] Eosinophils/100 WBC (Bld) 1.1 % Normal 0-5 [facility] Comment on above: Performed By: #### L 500.2500, L100.0100, L501.5425 ####[facility] [address] [place], [address] Erythrocyte distribution width (RBC) [Ratio] 17.8 % High 11.6-14.6 [facility] Comment on above: Performed By: #### L 500.2500, L100.0100, L501.5425 ####[facility] [address] [place], [address] Hematocrit (Bld) [Volume fraction] 33.5 % Low 37-47 [facility] Comment on above: Performed By: #### L 500.2500, L100.0100, L501.5425 ####[facility] [address] [place], [address] Hemoglobin (Bld) [Mass/Vol] 10.2 g/dL Low 12.0-15.0 [facility] Comment on above: Performed By: #### L 500.2500, L100.0100, L501.5425 ####[facility] [address] [place], [address] IG% 1.100 High 0.0-0.9 [facility] Comment on above: Result Comment: IG% - Immature Granulocytes (promyelocytes, myelocytes andmetamyelocytes) > 1% indicates that a LEFT SHIFT is Present. Performed By: #### L 500.2500, L100.0100, L501.5425 ####[facility] [address] [place], [address] Lymphocytes/100 WBC (Bld) 14.8 % Low 19-41 [facility] Comment on above: Performed By: #### L 500.2500, L100.0100, L501.5425 ####[facility] [address] [place], [address] MCH (RBC) [Entitic mass] 24.2 pg Low 27.0-32.0 [facility] Comment on above: Performed By: #### L 500.2500, L100.0100, L501.5425 ####[facility] [address] [place], [address] MCHC (RBC) [Mass/Vol] 30.4 g/dL Low 32-36 [facility] Comment on above: Performed By: #### L 500.2500, L100.0100, L501.5425 ####[facility] [address] [place], [address] MCV (RBC) [Entitic vol] 79.4 fL Low 81-99 [facility] Comment on above: Performed By: #### L 500.2500, L100.0100, L501.5425 ####[facility] [address] [place], [address] Monocytes/100 WBC (Bld) 8.6 % Normal 0-10 [facility] Comment on above: Performed By: #### L 500.2500, L100.0100, L501.5425 ####[facility] [address] [place], [address] Neutrophils/100 WBC (Bld) 74.1 % High 47-70 [facility] Comment on above: Performed By: #### L 500.2500, L100.0100, L501.5425 ####[facility] [address] [place], [address] Nucleated RBC (Bld) [#/Vol] 0 10*3/uL Normal 0-5 [facility] Comment on above: Performed By: #### L 500.2500, L100.0100, L501.5425 ####[facility] [address] [place], [address] Platelet mean volume (Bld) [Entitic vol] 9.3 fL Normal 6.2-12.0 [facility] Comment on above: Performed By: #### L 500.2500, L100.0100, L501.5425 ####[facility] [address] [place], [address] Platelets (Bld) [#/Vol] 311 10*3/uL Normal 150-450 [facility] Comment on above: Performed By: #### L 500.2500, L100.0100, L501.5425 ####[facility] [address] [place], [address] RBC (Bld) [#/Vol] 4.22 10*6/uL Normal 4.2-5.4 [facility] Comment on above: Performed By: #### L 500.2500, L100.0100, L501.5425 ####[facility] [address] [place], [address] RDW SD 51.0 fl High 35.1-43.9 [facility] Comment on above: Performed By: #### L 500.2500, L100.0100, L501.5425 ####[facility] [address] [place], [address] WBC (Bld) [#/Vol] 10.8 10*3/uL Normal 4.4-11.0 [facility] Comment on above: Performed By: #### L 500.2500, L100.0100, L501.5425 ####[facility] [address] [place], [address] CTA Chest W/WO Contraston CTA Chest W/WO Contrast Normal [facility] Carbon dioxide measurementOr dered By: Paco Sellers on 03-10-2024 CO2 [Moles/Vol] 26.0 mmol/L 21.0-32.0 [facility] Chest PA and Lateralon 03-10 Chest PA and Lateral Normal [facility] Chloride measurementOrdered By: Paco Sellers on 03-10-2024 Chloride [Moles/Vol] 103 mmol/L 98-107 [facility] Emergency Department Summary on 03-10-2024 Emergency Department Summary Normal [facility] Eosinophil percentageOrdered By: Paco Sellers on 03-10-2024 Eosinophils/100 WBC (Bld) 1.1 % 0-5 [facility] Erythrocyte distribution wid th ratioOrdered By: Paco Sellers on 03-10-2024 Erythrocyte distribution width (RBC) [Ratio] 17.8 % High 11.6-14.6 [facility] Erythrocyte distribution wid th standard deviationOrdered By: Paco Sellers on 03-10-2024 Erythrocyte distribution width (RBC) [Entitic vol] 51.0 fL High 35.1-43.9 [facility] Estimated glomerular filtrat ion rate (GFR) AmericanOrdered By: Paco Sellers on 03-10-2024 Estimated GFR (MDRD) Amer 114 mL/min >60 [facility] Comment on above: GFR Calc Estimation of creatinine debbie aranceOrdered By: Paco Sellers on 03-10-2024 Estimated Creatinine Clearance Calc 84.43 ml/min [facility] Glomerular filtration rate ( GFR) estimationOrdered By: Paco Gironchristy on 03-10-2024 Estimated GFR (MDRD) Non-Af Amer 94 mL/min >60 [facility] Comment on above: Non- GFR Calc Glucose measurementOrdered B y: Paco Sellers on 03-10-2024 Glucose [Mass/Vol] 349 mg/dL High 74-106 [facility] Comment on above: Glucose result great er than or equal to 200 mg/dLsuggests DIABETES MELLITUS per A.D.A. criteria. Hematocrit Auto (Bld) [Volum e fraction]Ordered By: Paco Sellers on 03-10-2024 Hematocrit (Bld) [Volume fraction] 33.5 % Low 37-47 [facility] Hemoglobin measurementOrdere d By: Paco Sellers on 03-10-2024 Hemoglobin (Bld) [Mass/Vol] 10.2 g/dL Low 12.0-15.0 [facility] Immature granulocytes/100 WB C Auto (Bld)Ordered By: Paco Sellers on 03-10-2024 Immature granulocytes/100 WBC (Bld) 1.100 % High 0.0-0.9 [facility] Comment on above: IG% - Immature Granu locytes (promyelocytes, myelocytes and metamyelocytes) > 1% indicates that a LEFT SHIFT is Present. Influenza virus A and B and SARS-CoV-2 (COVID-19) and Respiratory syncytial virus RNAOrdered By: Paco Sellers on 03-10-2024 SARS-CoV-2 (COVID-19) RNA RAMIREZ+probe Ql (Unsp spec) SARS-CoV-2 (COVID 19 PCR) Abnormal [facility] L501.4020on 03-10-2024 TROPONIN-I HS 508 pg/mL Invalid Interpretation Code 3.0-54.0 [facility] Comment on above: Result Comment: Crit ical Result(s) Called at: 23:43:14 03/10/2024 by: Karin. to Nicole HOUSEKEEPER AND LAUNDR[employer] ASSISTANT. Results read back by same. Please Note: New Test Units and Gender Specific Reference Ranges. For more information see Policy Stat Procedure Kerrick High Sensitivity Troponin (TNIH) and attachments. Performed By: #### L 501.4020 ####[facility] [address] [place], [address] L501.5425on 03-10-2024 TROPONIN-I HS 502 pg/mL Invalid Interpretation Code 3.0-54.0 [facility] Comment on above: Order Comment: 1Y Result Comment: Crit ical Result(s) Called at: 21:21:21 03/10/2024 by: BERNARDINO. Results read back by Samuel Salinas Please Note: New Test Units and Gender Specific Reference Ranges. For more information see Policy Stat Procedure Kerrick High Sensitivity Troponin (TNIH) and attachments. Performed By: #### L 500.2500, L100.0100, L501.5425 ####[facility] [address] [place], [address] Lymphocytes Auto (Unsp spec) [#/Vol]Ordered By: Paco Sellers on 03-10-2024 Lymphocytes (Bld) [#/Vol] 1.59 10*3/uL 0.83-4.51 [facility] Lymphocytes/100 WBC Auto (Un sp spec)Ordered By: Paco Sellers on 03-10-2024 Lymphocytes/100 WBC (Bld) 14.8 % Low 19-41 [facility] M100.678on 03-10-2024 M100.678 Normal [facility] Comment on above: Performed By: #### M 100.678 ####[facility] [address] [place], [address] MCV (mean corpuscular volume ) determinationOrdered By: Paco Sellers on 03-10-2024 MCV (RBC) [Entitic vol] 79.4 fL Low 81-99 [facility] Mean corpuscular hemoglobin (MCH) determinationOrdered By: Paco Sellers on 03-10-2024 MCH (RBC) [Entitic mass] 24.2 pg Low 27.0-32.0 [facility] Mean corpuscular hemoglobin concentration (MCHC) determinationOrdered By: Paco Sellers on 03-10-2024 MCHC (RBC) [Mass/Vol] 30.4 g/dL Low 32-36 [facility] Mean platelet volume determi nationOrdered By: Paco Sellers on 03-10-2024 Platelet mean volume (Bld) [Entitic vol] 9.3 fL 6.2-12.0 [facility] Monocyte percentageOrdered B y: Paco Sellers on 03-10-2024 Monocytes/100 WBC (Bld) 8.6 % 0-10 [facility] Neutrophil percentageOrdered By: Paco Sellers on 03-10-2024 Neutrophils/100 WBC (Bld) 74.1 % High 47-70 [facility] Nucleated red blood cell per centageOrdered By: Paco Sellers on 03-10-2024 Nucleated RBC/100 WBC (Bld) [Ratio] 0 % 0-5 [facility] Platelet countOrdered By: Nela Sellers on 03-10-2024 Platelets (Bld) [#/Vol] 311 10*3/uL 150-450 [facility] Potassium measurementOrdered By: Paco Sellers on 03-10-2024 Potassium [Moles/Vol] 3.4 mmol/L Low 3.5-5.1 [facility] RBC Auto (Bld) [#/Vol]Ordere d By: Paco Sellers on 03-10-2024 RBC (Bld) [#/Vol] 4.22 10*6/uL 4.2-5.4 [facility] Serum anion gap measurementO rdered By: Paco Sellers on 03-10-2024 Anion gap [Moles/Vol] 8 mmol/L 5-15 [facility] Serum or plasma calcium aminta urement (mass/volume)Ordered By: Paco Sellers on 03-10-2024 Calcium [Mass/Vol] 9.3 mg/dL 8.5-10.1 [facility] Serum or plasma creatinine m easurement (mass/volume)Ordered By: Paco Sellers on 03-10-2024 Creatinine [Mass/Vol] 0.67 mg/dL 0.55-1.02 [facility] Comment on above: The validity of the calculated GFR & GFRAA in patients over 70 years has not been determined. Clinical correlation is essential. Serum or plasma urea nitroge n measurement (mass/volume)Ordered By: Paco Sellers on 03-10-2024 Urea nitrogen [Mass/Vol] 9 mg/dL 7-18 [facility] Sodium levelOrdered By: Paco Sellers on 03-10-2024 Sodium [Moles/Vol] 137 mmol/L 136-145 [facility] White blood cell (WBC) count Ordered By: Paco Sellers on 03-10-2024 WBC (Bld) [#/Vol] 10.8 10*3/uL 4.4-11.0 [facility] Basic Metabolic Profile (BMP )on 02-26-2024 BUN/CRE 16.1 RATIO Normal 10-20 [facility] Comment on above: Performed By: #### L 500.2500 ####[facility] [address] [place], [address] CA,Total 9.7 mg/dL Normal 8.5-10.1 [facility] Comment on above: Performed By: #### L 500.2500 ####[facility] [address] [place], [address] Chloride [Moles/Vol] 106 mmol/L Normal 98-107 [facility] Comment on above: Performed By: #### L 500.2500 ####[facility] [address] [place], [address] CO2 [Moles/Vol] 27.0 mmol/L Normal 21.0-32.0 [facility] Comment on above: Performed By: #### L 500.2500 ####[facility] [address] [place], [address] Creatinine [Mass/Vol] 0.62 mg/dL Normal 0.55-1.02 [facility] Comment on above: Result Comment: The validity of the calculated GFR GFRAA in patients over70 years has not been determined. Clinical correlation isessential. Performed By: #### L 500.2500 ####[facility] [address] [place], [address] EST GFR - AA 125 mL/min Normal >60 [facility] Comment on above: Result Comment: Afri can Nepalese GFR Calc Performed By: #### L 500.2500 ####[facility] [address] [place], [address] GAP 6 Normal 5-15 [facility] Comment on above: Performed By: #### L 500.2500 ####[facility] [address] [place], [address] GFR/1.73 sq M.predicted among non-blacks MDRD (S/P/Bld) [Vol rate/Area] 103 mL/min/{1.73_m2} Normal >60 [facility] Comment on above: Result Comment: Non- GFR Calc Performed By: #### L 500.2500 ####[facility] [address] [place], [address] Glucose [Mass/Vol] 152 mg/dL High 74-106 [facility] Comment on above: Result Comment: Fast ing Glucose result greater than or equal to 126 mg/dLsuggests DIABETES MELLITUS per A.D.A. criteria. Performed By: #### L 500.2500 ####[facility] [address] [place], [address] Potassium [Moles/Vol] 4.2 mmol/L Normal 3.5-5.1 [facility] Comment on above: Performed By: #### L 500.2500 ####[facility] [address] [place], [address] Sodium [Moles/Vol] 139 mmol/L Normal 136-145 [facility] Comment on above: Performed By: #### L 500.2500 ####[facility] [address] [place], [address] Urea nitrogen [Mass/Vol] 10 mg/dL Normal 7-18 [facility] Comment on above: Performed By: #### L 500.2500 ####[facility] [address] [place], [address] Blood urea nitrogen (BUN)/cr eatinine ratioOrdered By: Ana Rosa Oquendo on 02-26-2024 Urea nitrogen/Creatinine [Mass ratio] 16.1 mg/mg 10-20 [facility] Carbon dioxide measurementOr dered By: Ana Rosa Oquendo on 02-26-2024 CO2 [Moles/Vol] 27.0 mmol/L 21.0-32.0 [facility] Cardiology Visit Reporton Cardiology Visit Report Normal [facility] Chloride measurementOrdered By: Ana Rosa Oquendo on 02-26-2024 Chloride [Moles/Vol] 106 mmol/L 98-107 [facility] Estimated glomerular filtrat ion rate (GFR) AmericanOrdered By: Ana Rosa Oquendo on 02-26-2024 Estimated GFR (MDRD) Amer 125 mL/min >60 [facility] Comment on above: GFR Calc Glomerular filtration rate ( GFR) estimationOrdered By: Ana Rosa Oquendo on 02-26-2024 Estimated GFR (MDRD) Non-Af Amer 103 mL/min >60 [facility] Comment on above: Non- GFR Calc Glucose measurementOrdered B y: Ana Rosa Oquendo on 02-26-2024 Glucose [Mass/Vol] 152 mg/dL High 74-106 [facility] Comment on above: Fasting Glucose resu lt greater than or equal to 126 mg/dL suggests DIABETES MELLITUS per A.D.A. criteria. Potassium measurementOrdered By: Ana Rosa Oquendo on 02-26-2024 Potassium [Moles/Vol] 4.2 mmol/L 3.5-5.1 [facility] Serum anion gap measurementO rdered By: Ana Rosa Oquendo on 02-26-2024 Anion gap [Moles/Vol] 6 mmol/L 5-15 [facility] Serum or plasma calcium aminta urement (mass/volume)Ordered By: Ana Rosa Oquendo on 02-26-2024 Calcium [Mass/Vol] 9.7 mg/dL 8.5-10.1 [facility] Serum or plasma creatinine m easurement (mass/volume)Ordered By: Ana Rosa Oquendo on 02-26-2024 Creatinine [Mass/Vol] 0.62 mg/dL 0.55-1.02 [facility] Comment on above: The validity of the calculated GFR & GFRAA in patients over 70 years has not been determined. Clinical correlation is essential. Serum or plasma urea nitroge n measurement (mass/volume)Ordered By: Ana Rosa Oquendo on 02-26-2024 Urea nitrogen [Mass/Vol] 10 mg/dL 7-18 [facility] Sodium levelOrdered By: J Carlos Oquendo on 02-26-2024 Sodium [Moles/Vol] 139 mmol/L 136-145 [facility] 12 Lead EKGon 02-09-2024 12 Lead EKG Normal [facility] 12 Lead EKG Normal [facility] 57-JJ-Entgbww DOrdered By: Che Greco on 02-09-2024 Vitamin D 25-Hydroxy 72.0 ng/mL [facility] Comment on above: Vitamin D 25(OH) Sta tus Range Deficiency <20 ng/mL (50nmol/L) Insufficiency 20 - 30 ng/mL (50 - 75 nmol/L) Sufficiency 30 - 100 ng/mL (75 - 250 nmol/L) Toxicity >100 ng/mL (>250 nmol/L) Absolute neutrophil countOrd ered By: Gustabo العلي on 02-09-2024 Neutrophils (Bld) [#/Vol] 5.4 10*3/uL 2.0-7.7 [facility] Absolute neutrophil countOrd ered By: Paul Greco on 02-09-2024 Neutrophils (Bld) [#/Vol] 6.1 10*3/uL 2.0-7.7 [facility] Albumin to globulin ratioOrd ered By: Paul Greco on 02-09-2024 Albumin/Globulin [Mass ratio] 1.0 {ratio} 0.9-2.4 [facility] Basic Metabolic Profile (BMP )on 02-09-2024 BUN/CRE 16.2 RATIO Normal 10-20 [facility] Comment on above: Order Comment: 1Y Performed By: #### L 500.2500, L501.5425, L300.3900, L100.0100 ####[facility] [address] [place], [address] CA,Total 9.1 mg/dL Normal 8.5-10.1 [facility] Comment on above: Order Comment: 1Y Performed By: #### L 500.2500, L501.5425, L300.3900, L100.0100 ####[facility] [address] [place], [address] Chloride [Moles/Vol] 110 mmol/L High 98-107 [facility] Comment on above: Order Comment: 1Y Performed By: #### L 500.2500, L501.5425, L300.3900, L100.0100 ####[facility] [address] [place], [address] CO2 [Moles/Vol] 23.0 mmol/L Normal 21.0-32.0 [facility] Comment on above: Order Comment: 1Y Performed By: #### L 500.2500, L501.5425, L300.3900, L100.0100 ####[facility] [address] [place], [address] Creatinine [Mass/Vol] 0.62 mg/dL Normal 0.55-1.02 [facility] Comment on above: Order Comment: 1Y Result Comment: The validity of the calculated GFR GFRAA in patients over70 years has not been determined. Clinical correlation isessential. Performed By: #### L 500.2500, L501.5425, L300.3900, L100.0100 ####[facility] [address] [place], [address] ECRCL 91.87 ml/min Normal [facility] Comment on above: Order Comment: 1Y Performed By: #### L 500.2500, L501.5425, L300.3900, L100.0100 ####[facility] [address] [place], [address] EST GFR - AA 125 mL/min Normal >60 [facility] Comment on above: Order Comment: 1Y Result Comment: Afri can Nepalese GFR Calc Performed By: #### L 500.2500, L501.5425, L300.3900, L100.0100 ####[facility] [address] [place], [address] GAP 9 Normal 5-15 [facility] Comment on above: Order Comment: 1Y Performed By: #### L 500.2500, L501.5425, L300.3900, L100.0100 ####[facility] [address] [place], [address] GFR/1.73 sq M.predicted among non-blacks MDRD (S/P/Bld) [Vol rate/Area] 104 mL/min/{1.73_m2} Normal >60 [facility] Comment on above: Order Comment: 1Y Result Comment: Non- GFR Calc Performed By: #### L 500.2500, L501.5425, L300.3900, L100.0100 ####[facility] [address] [place], [address] Glucose [Mass/Vol] 147 mg/dL High 74-106 [facility] Comment on above: Order Comment: 1Y Result Comment: Fast ing Glucose result greater than or equal to 126 mg/dLsuggests DIABETES MELLITUS per A.D.A. criteria. Performed By: #### L 500.2500, L501.5425, L300.3900, L100.0100 ####[facility] [address] [place], [address] Potassium [Moles/Vol] 3.0 mmol/L Low 3.5-5.1 [facility] Comment on above: Order Comment: 1Y Performed By: #### L 500.2500, L501.5425, L300.3900, L100.0100 ####[facility] [address] [place], [address] Sodium [Moles/Vol] 141 mmol/L Normal 136-145 [facility] Comment on above: Order Comment: 1Y Performed By: #### L 500.2500, L501.5425, L300.3900, L100.0100 ####[facility] [address] [place], [address] Urea nitrogen [Mass/Vol] 10 mg/dL Normal 7-18 [facility] Comment on above: Order Comment: 1Y Performed By: #### L 500.2500, L501.5425, L300.3900, L100.0100 ####[facility] [address], [address] Basophil percentageOrdered B y: Gustabo العلي on 02-09-2024 Basophils/100 WBC (Bld) 0.5 % 0-1 [facility] Basophil percentageOrdered B y: Paul Greco on 02-09-2024 Basophils/100 WBC (Bld) 0.5 % 0-1 [facility] Bilirubin, totalOrdered By: Paul Greco on 02-09-2024 Bilirubin [Mass/Vol] 0.80 mg/dL 0.20-1.00 [facility] Comment on above: For patients on eltr ombopag therapy, use of Dimension Kerrick TBIL is not recommended. Blood urea nitrogen (BUN)/cr eatinine ratioOrdered By: Gustabo العلي on 02-09-2024 Urea nitrogen/Creatinine [Mass ratio] 16.2 mg/mg 12-23 [facility] Blood urea nitrogen (BUN)/cr eatinine ratioOrdered By: Paul Greco on 02-09-2024 Urea nitrogen/Creatinine [Mass ratio] 13.1 mg/mg 12-23 [facility] CBC W/Diff, Automatedon Absolute Lymph 1.50 X10 3/uL Normal 0.83-4.51 [facility] Comment on above: Performed By: #### L 500.2500, L501.5425, L300.3900, L100.0100 ####[facility] [address] [place], [address] Absolute Neut 5.4 X10 3/uL Normal 2.0-7.7 [facility] Comment on above: Performed By: #### L 500.2500, L501.5425, L300.3900, L100.0100 ####[facility] [address] [place], [address] Basophils/100 WBC (Bld) 0.5 % Normal 0-1 [facility] Comment on above: Performed By: #### L 500.2500, L501.5425, L300.3900, L100.0100 ####[facility] [address] [place], [address] Eosinophils/100 WBC (Bld) 1.1 % Normal 0-5 [facility] Comment on above: Performed By: #### L 500.2500, L501.5425, L300.3900, L100.0100 ####[facility] [address] [place], [address] Erythrocyte distribution width (RBC) [Ratio] 19.0 % High 11.6-14.6 [facility] Comment on above: Performed By: #### L 500.2500, L501.5425, L300.3900, L100.0100 ####[facility] [address] [place], [address] Hematocrit (Bld) [Volume fraction] 37.5 % Normal 37-47 [facility] Comment on above: Performed By: #### L 500.2500, L501.5425, L300.3900, L100.0100 ####[facility] [address] [place], [address] Hemoglobin (Bld) [Mass/Vol] 11.7 g/dL Low 12.0-15.0 [facility] Comment on above: Performed By: #### L 500.2500, L501.5425, L300.3900, L100.0100 ####[facility] [address] [place], [address] IG% 0.400 Normal 0.0-0.9 [facility] Comment on above: Result Comment: IG% - Immature Granulocytes (promyelocytes, myelocytes andmetamyelocytes) > 1% indicates that a LEFT SHIFT is Present. Performed By: #### L 500.2500, L501.5425, L300.3900, L100.0100 ####[facility] [address] [place], [address] Lymphocytes/100 WBC (Bld) 18.8 % Low 19-41 [facility] Comment on above: Performed By: #### L 500.2500, L501.5425, L300.3900, L100.0100 ####[facility] [address] [place], [address] MCH (RBC) [Entitic mass] 25.3 pg Low 27.0-32.0 [facility] Comment on above: Performed By: #### L 500.2500, L501.5425, L300.3900, L100.0100 ####[facility] [address] [place], [address] MCHC (RBC) [Mass/Vol] 31.2 g/dL Low 32-36 [facility] Comment on above: Performed By: #### L 500.2500, L501.5425, L300.3900, L100.0100 ####[facility] [address] [place], [address] MCV (RBC) [Entitic vol] 81.2 fL Normal 81-99 [facility] Comment on above: Performed By: #### L 500.2500, L501.5425, L300.3900, L100.0100 ####[facility] [address] [place], [address] Monocytes/100 WBC (Bld) 12.0 % High 0-10 [facility] Comment on above: Performed By: #### L 500.2500, L501.5425, L300.3900, L100.0100 ####[facility] [address] [place], [address] Neutrophils/100 WBC (Bld) 67.2 % Normal 47-70 [facility] Comment on above: Performed By: #### L 500.2500, L501.5425, L300.3900, L100.0100 ####[facility] [address] [place], [address] Nucleated RBC (Bld) [#/Vol] 0 10*3/uL Normal 0-5 [facility] Comment on above: Performed By: #### L 500.2500, L501.5425, L300.3900, L100.0100 ####[facility] [address] [place], [address] Platelet mean volume (Bld) [Entitic vol] 10.1 fL Normal 6.2-12.0 [facility] Comment on above: Performed By: #### L 500.2500, L501.5425, L300.3900, L100.0100 ####[facility] [address] [place], [address] Platelets (Bld) [#/Vol] 219 10*3/uL Normal 150-450 [facility] Comment on above: Performed By: #### L 500.2500, L501.5425, L300.3900, L100.0100 ####[facility] [address] [place], [address] RBC (Bld) [#/Vol] 4.62 10*6/uL Normal 4.2-5.4 [facility] Comment on above: Performed By: #### L 500.2500, L501.5425, L300.3900, L100.0100 ####[facility] [address] [place], [address] RDW SD 54.4 fl High 35.1-43.9 [facility] Comment on above: Performed By: #### L 500.2500, L501.5425, L300.3900, L100.0100 ####[facility] [address] [place], [address] WBC (Bld) [#/Vol] 8.0 10*3/uL Normal 4.4-11.0 [facility] Comment on above: Performed By: #### L 500.2500, L501.5425, L300.3900, L100.0100 ####[facility] [address] [place], [address] Absolute Lymph 1.61 X10 3/uL Normal 0.83-4.51 [facility] Comment on above: Order Comment: Order Date: 01/11/24Order Info: 0184-1 - CBCD Performed By: #### L 506.1000, L100.0100, L501.9520, L500.4050 ####[facility] [address] [place], [address] Absolute Neut 6.1 X10 3/uL Normal 2.0-7.7 [facility] Comment on above: Order Comment: Order Date: 01/11/24Order Info: 0184-1 - CBCD Performed By: #### L 506.1000, L100.0100, L501.9520, L500.4050 ####[facility] [address] [place], [address] Basophils/100 WBC (Bld) 0.5 % Normal 0-1 [facility] Comment on above: Order Comment: Order Date: 01/11/24Order Info: 0184-1 - CBCD Performed By: #### L 506.1000, L100.0100, L501.9520, L500.4050 ####[facility] [address] [place], [address] Eosinophils/100 WBC (Bld) 1.1 % Normal 0-5 [facility] Comment on above: Order Comment: Order Date: 01/11/24Order Info: 018- - CBCD Performed By: #### L 506.1000, L100.0100, L501.9520, L500.4050 ####[facility] [address] [place], [address] Erythrocyte distribution width (RBC) [Ratio] 19.4 % High 11.6-14.6 [facility] Comment on above: Order Comment: Order Date: 01/11/24Order Info: 018- - CBCD Performed By: #### L 506.1000, L100.0100, L501.9520, L500.4050 ####[facility] [address] [place], [address] Hematocrit (Bld) [Volume fraction] 39.9 % Normal 37-47 [facility] Comment on above: Order Comment: Order Date: 01/11/24Order Info: 018- - CBCD Performed By: #### L 506.1000, L100.0100, L501.9520, L500.4050 ####[facility] [address] [place], [address] Hemoglobin (Bld) [Mass/Vol] 12.2 g/dL Normal 12.0-15.0 [facility] Comment on above: Order Comment: Order Date: 01/11/24Order Info: 018-1 - CBCD Performed By: #### L 506.1000, L100.0100, L501.9520, L500.4050 ####[facility] [address] [place], [address] IG% 0.500 Normal 0.0-0.9 [facility] Comment on above: Order Comment: Order Date: 01/11/24Order Info: 0184-1 - CBCD Result Comment: IG% - Immature Granulocytes (promyelocytes, myelocytes andmetamyelocytes) > 1% indicates that a LEFT SHIFT is Present. Performed By: #### L 506.1000, L100.0100, L501.9520, L500.4050 ####[facility] [address] [place], [address] Lymphocytes/100 WBC (Bld) 18.4 % Low 19-41 [facility] Comment on above: Order Comment: Order Date: 01/11/24Order Info: 0184-1 - CBCD Performed By: #### L 506.1000, L100.0100, L501.9520, L500.4050 ####[facility] [address] [place], [address] MCH (RBC) [Entitic mass] 25.1 pg Low 27.0-32.0 [facility] Comment on above: Order Comment: Order Date: 01/11/24Order Info: 0184-1 - CBCD Performed By: #### L 506.1000, L100.0100, L501.9520, L500.4050 ####[facility] [address] [place], [address] MCHC (RBC) [Mass/Vol] 30.6 g/dL Low 32-36 [facility] Comment on above: Order Comment: Order Date: 01/11/24Order Info: 0184-1 - CBCD Performed By: #### L 506.1000, L100.0100, L501.9520, L500.4050 ####[facility] [address] [place], [address] MCV (RBC) [Entitic vol] 82.1 fL Normal 81-99 [facility] Comment on above: Order Comment: Order Date: 01/11/24Order Info: 0184-1 - CBCD Performed By: #### L 506.1000, L100.0100, L501.9520, L500.4050 ####[facility] [address] [place], [address] Monocytes/100 WBC (Bld) 10.5 % High 0-10 [facility] Comment on above: Order Comment: Order Date: 01/11/24Order Info: 0184-1 - CBCD Performed By: #### L 506.1000, L100.0100, L501.9520, L500.4050 ####[facility] [address] [place], [address] Neutrophils/100 WBC (Bld) 69.0 % Normal 47-70 [facility] Comment on above: Order Comment: Order Date: 01/11/24Order Info: 0184- - CBCD Performed By: #### L 506.1000, L100.0100, L501.9520, L500.4050 ####[facility] [address] [place], [address] Nucleated RBC (Bld) [#/Vol] 0 10*3/uL Normal 0-5 [facility] Comment on above: Order Comment: Order Date: 01/11/24Order Info: 018-1 - CBCD Performed By: #### L 506.1000, L100.0100, L501.9520, L500.4050 ####[facility] [address] [place], [address] Platelet mean volume (Bld) [Entitic vol] 10.5 fL Normal 6.2-12.0 [facility] Comment on above: Order Comment: Order Date: 01/11/24Order Info: 0184-1 - CBCD Performed By: #### L 506.1000, L100.0100, L501.9520, L500.4050 ####[facility] [address] [place], [address] Platelets (Bld) [#/Vol] 246 10*3/uL Normal 150-450 [facility] Comment on above: Order Comment: Order Date: 01/11/24Order Info: 0184- - CBCD Performed By: #### L 506.1000, L100.0100, L501.9520, L500.4050 ####[facility] [address] [place], [address] RBC (Bld) [#/Vol] 4.86 10*6/uL Normal 4.2-5.4 [facility] Comment on above: Order Comment: Order Date: 01/11/24Order Info: 018- - CBCD Performed By: #### L 506.1000, L100.0100, L501.9520, L500.4050 ####[facility] [address] [place], [address] RDW SD 56.5 fl High 35.1-43.9 [facility] Comment on above: Order Comment: Order Date: 01/11/24Order Info: 0184- - CBCD Performed By: #### L 506.1000, L100.0100, L501.9520, L500.4050 ####[facility] [address] [place], [address] WBC (Bld) [#/Vol] 8.8 10*3/uL Normal 4.4-11.0 [facility] Comment on above: Order Comment: Order Date: 01/11/24Order Info: 0184- - CBCD Performed By: #### L 506.1000, L100.0100, L501.9520, L500.4050 ####[facility] [address] [place], [address] CTA Chest W/WO Contraston CTA Chest W/WO Contrast Normal [facility] Carbon dioxide measurementOr dered By: Gustabo Arreola 02-09-2024 CO2 [Moles/Vol] 23.0 mmol/L 21.0-32.0 [facility] Carbon dioxide measurementOr dered By: Paul Greco on 02-09-2024 CO2 [Moles/Vol] 23.0 mmol/L 21.0-32.0 [facility] Chloride measurementOrdered By: Gustabo العلي on 02-09-2024 Chloride [Moles/Vol] 110 mmol/L High 98-107 [facility] Chloride measurementOrdered By: Olegbart Greco on 02-09-2024 Chloride [Moles/Vol] 107 mmol/L 98-107 [facility] Comprehensive Metabolic Prof ilon 02-09-2024 Albumin [Mass/Vol] 3.8 g/dL Normal 3.2-5.0 [facility] Comment on above: Order Comment: Order Date: 01/11/24Order Info: 0786-1 - CMPOrder Info: 3016-3 - TSH1 Performed By: #### L 506.1000, L100.0100, L501.9520, L500.4050 ####[facility] [address] [place], [address] Albumin/Globulin [Mass ratio] 1.0 {ratio} Normal 0.9-2.4 [facility] Comment on above: Order Comment: Order Date: 01/11/24Order Info: 0786-1 - CMPOrder Info: 3016-3 - TSH1 Performed By: #### L 506.1000, L100.0100, L501.9520, L500.4050 ####[facility] [address] [place], [address] ALK P 77 U/L Normal 45-117 [facility] Comment on above: Order Comment: Order Date: 01/11/24Order Info: 0786-1 - CMPOrder Info: 3016-3 - TSH1 Performed By: #### L 506.1000, L100.0100, L501.9520, L500.4050 ####[facility] [address] [place], [address] ALT [Catalytic activity/Vol] 21 U/L Normal 13-56 [facility] Comment on above: Order Comment: Order Date: 01/11/24Order Info: 0786-1 - CMPOrder Info: 3016-3 - TSH1 Performed By: #### L 506.1000, L100.0100, L501.9520, L500.4050 ####[facility] [address] [place], [address] AST [Catalytic activity/Vol] 12 U/L Low 15-37 [facility] Comment on above: Order Comment: Order Date: 01/11/24Order Info: 785- - CMPOrder Info: 301-3 - TSH1 Performed By: #### L 506.1000, L100.0100, L501.9520, L500.4050 ####[facility] [address] [place], [address] Bilirubin [Mass/Vol] 0.80 mg/dL Normal 0.20-1.00 [facility] Comment on above: Order Comment: Order Date: 01/11/24Order Info: 0786 - CMPOrder Info: 3016-3 - TSH1 Result Comment: For patients on eltrombopag therapy, use of Dimension Kerrick TBIL is not recommended. Performed By: #### L 506.1000, L100.0100, L501.9520, L500.4050 ####[facility] [address] [place], [address] BUN/CRE 13.1 RATIO Normal 10-20 [facility] Comment on above: Order Comment: Order Date: 01/11/24Order Info: 0786- - CMPOrder Info: 301-3 - TSH1 Performed By: #### L 506.1000, L100.0100, L501.9520, L500.4050 ####[facility] [address] [place], [address] CA,Total 9.4 mg/dL Normal 8.5-10.1 [facility] Comment on above: Order Comment: Order Date: 01/11/24Order Info: 0786- - CMPOrder Info: 3016-3 - TSH1 Performed By: #### L 506.1000, L100.0100, L501.9520, L500.4050 ####[facility] [address] [place], [address] Chloride [Moles/Vol] 107 mmol/L Normal 98-107 [facility] Comment on above: Order Comment: Order Date: 01/11/24Order Info: 0786-1 - CMPOrder Info: 3015-05 - TSH1 Performed By: #### L 506.1000, L100.0100, L501.9520, L500.4050 ####[facility] [address] [place], [address] CO2 [Moles/Vol] 23.0 mmol/L Normal 21.0-32.0 [facility] Comment on above: Order Comment: Order Date: 01/11/24Order Info: 0786-1 - CMPOrder Info: 3015-05 - TSH1 Performed By: #### L 506.1000, L100.0100, L501.9520, L500.4050 ####[facility] [address] [place], [address] Creatinine [Mass/Vol] 0.61 mg/dL Normal 0.55-1.02 [facility] Comment on above: Order Comment: Order Date: 01/11/24Order Info: 0786-1 - CMPOrder Info: 3015-05 - TSH1 Result Comment: The validity of the calculated GFR GFRAA in patients over70 years has not been determined. Clinical correlation isessential. Performed By: #### L 506.1000, L100.0100, L501.9520, L500.4050 ####[facility] [address] [place], [address] EST GFR - AA 127 mL/min Normal >60 [facility] Comment on above: Order Comment: Order Date: 01/11/24Order Info: 0786-1 - CMPOrder Info: [id number] - TSH1 Result Comment: Afri can Nepalese GFR Calc Performed By: #### L 506.1000, L100.0100, L501.9520, L500.4050 ####[facility] [address] [place], [address] GAP 10 Normal 5-15 [facility] Comment on above: Order Comment: Order Date: 01/11/24Order Info: 0786-1 - CMPOrder Info: [id number] - TSH1 Performed By: #### L 506.1000, L100.0100, L501.9520, L500.4050 ####[facility] [address] [place], [address] GFR/1.73 sq M.predicted among non-blacks MDRD (S/P/Bld) [Vol rate/Area] 105 mL/min/{1.73_m2} Normal >60 [facility] Comment on above: Order Comment: Order Date: 01/11/24Order Info: 0786-1 - CMPOrder Info: 3015-05 - TSH Result Comment: Non- GFR Calc Performed By: #### L 506.1000, L100.0100, L501.9520, L500.4050 ####[facility] [address] [place], [address] Globulin (S) [Mass/Vol] 3.7 g/dL Normal 2.2-4.2 [facility] Comment on above: Order Comment: Order Date: 01/11/24Order Info: 0786-1 - CMPOrder Info: [id number] - TSH1 Performed By: #### L 506.1000, L100.0100, L501.9520, L500.4050 ####[facility] [address] [place], [address] Glucose [Mass/Vol] 174 mg/dL High 74-106 [facility] Comment on above: Order Comment: Order Date: 01/11/24Order Info: [id number] - CMPOrder Info: [id number] - TSH1 Result Comment: Fast ing Glucose result greater than or equal to 126 mg/dLsuggests DIABETES MELLITUS per A.D.A. criteria. Performed By: #### L 506.1000, L100.0100, L501.9520, L500.4050 ####[facility] [address] [place], [address] Potassium [Moles/Vol] 3.1 mmol/L Low 3.5-5.1 [facility] Comment on above: Order Comment: Order Date: 01/11/24Order Info: [id number] - CMPOrder Info: 3015-3 - TSH1 Performed By: #### L 506.1000, L100.0100, L501.9520, L500.4050 ####[facility] [address] [place], [address] Sodium [Moles/Vol] 140 mmol/L Normal 136-145 [facility] Comment on above: Order Comment: Order Date: 01/11/24Order Info: [id number]- - CMPOrder Info: [id number] - TSH1 Performed By: #### L 506.1000, L100.0100, L501.9520, L500.4050 ####[facility] [address] [place], [address] T PROT 7.5 g/dL Normal 6.4-8.2 [facility] [facility] Comment on above: Order Comment: Order Date: 01/11/24Order Info: [id number] CMPOrder Info: [id number] - TSH1 Performed By: #### L 506.1000, L100.0100, L501.9520, L500.4050 ####[facility] [address] [place], [address] Urea nitrogen [Mass/Vol] 8 mg/dL Normal 7-18 [facility] Comment on above: Order Comment: Order Date: 01/11/24Order Info: [id number] - CMPOrder Info: [id number] - TSH1 Performed By: #### L 506.1000, L100.0100, L501.9520, L500.4050 ####[facility] [address] [place], [address] Emergency Department Summary on 02-09-2024 Emergency Department Summary Normal [facility] Eosinophil percentageOrdered By: Gustabo العلي on 02-09-2024 Eosinophils/100 WBC (Bld) 1.1 % 0-5 [facility] Eosinophil percentageOrdered By: Paul Greco on 02-09-2024 Eosinophils/100 WBC (Bld) 1.1 % 0-5 [facility] Erythrocyte distribution wid th ratioOrdered By: Gustabo العلي on 02-09-2024 Erythrocyte distribution width (RBC) [Ratio] 19.0 % High 11.6-14.6 [facility] Erythrocyte distribution wid th ratioOrdered By: Paul Greco on 02-09-2024 Erythrocyte distribution width (RBC) [Ratio] 19.4 % High 11.6-14.6 [facility] Erythrocyte distribution wid th standard deviationOrdered By: Gustabo العلي on 02-09-2024 Erythrocyte distribution width (RBC) [Entitic vol] 54.4 fL High 35.1-43.9 [facility] Erythrocyte distribution wid th standard deviationOrdered By: Paul Greco on 02-09-2024 Erythrocyte distribution width (RBC) [Entitic vol] 56.5 fL High 35.1-43.9 [facility] Estimated glomerular filtrat ion rate (GFR) AmericanOrdered By: Gustabo العلي on 02-09-2024 Estimated GFR (MDRD) Amer 125 mL/min >60 [facility] Comment on above: GFR Calc Estimated glomerular filtrat ion rate (GFR) AmericanOrdered By: Paul Greco on 02-09-2024 Estimated GFR (MDRD) Amer 127 mL/min >60 [facility] Comment on above: GFR Calc Estimation of creatinine debbie aranceOrdered By: Gustabo العلي on 02-09-2024 Estimated Creatinine Clearance Calc 91.87 ml/min [facility] Glomerular filtration rate ( GFR) estimationOrdered By: Gustabo العلي on 02-09-2024 Estimated GFR (MDRD) Non-Af Amer 104 mL/min >60 [facility] Comment on above: Non- GFR Calc Glomerular filtration rate ( GFR) estimationOrdered By: Paul Greco on 02-09-2024 Estimated GFR (MDRD) Non-Af Amer 105 mL/min >60 [facility] Comment on above: Non- GFR Calc Glucose measurementOrdered B y: Gustabo العلي on 02-09-2024 Glucose [Mass/Vol] 147 mg/dL High 74-106 [facility] Comment on above: Fasting Glucose resu lt greater than or equal to 126 mg/dL suggests DIABETES MELLITUS per A.D.A. criteria. Glucose measurementOrdered B y: Paul Greco on 02-09-2024 Glucose [Mass/Vol] 174 mg/dL High 74-106 [facility] Comment on above: Fasting Glucose resu lt greater than or equal to 126 mg/dL suggests DIABETES MELLITUS per A.D.A. criteria. Hematocrit Auto (Bld) [Volum e fraction]Ordered By: Gustabo العلي on 02-09-2024 Hematocrit (Bld) [Volume fraction] 37.5 % [address] [place] [address] Hematocrit Auto (Bld) [Volum e fraction]Ordered By: Paul Greco on 02-09-2024 Hematocrit (Bld) [Volume fraction] 39.9 % [address] [place] [address] Hemoglobin measurementOrdere d By: Gustabo العلي on 02-09-2024 Hemoglobin (Bld) [Mass/Vol] 11.7 g/dL Low 12.0-15.0 [facility] Hemoglobin measurementOrdere d By: Paul Greco on 02-09-2024 Hemoglobin (Bld) [Mass/Vol] 12.2 g/dL 12.0-15.0 [facility] Immature granulocytes/100 WB C Auto (Bld)Ordered By: Gustabo العلي on 02-09-2024 Immature granulocytes/100 WBC (Bld) 0.400 % 0.0-0.9 [facility] Comment on above: IG% - Immature Granu locytes (promyelocytes, myelocytes and metamyelocytes) > 1% indicates that a LEFT SHIFT is Present. Immature granulocytes/100 WB C Auto (Bld)Ordered By: Paul Greco on 02-09-2024 Immature granulocytes/100 WBC (Bld) 0.500 % 0.0-0.9 [facility] Comment on above: IG% - Immature Granu locytes (promyelocytes, myelocytes and metamyelocytes) > 1% indicates that a LEFT SHIFT is Present. International normalized rat io (INR) calculationOrdered By: Gustabo العلي on 02-09-2024 INR Coag (Bld) [Relative time] 1.1 {INR} [facility] L501.4020on 02-09-2024 TROPONIN-I HS 213 pg/mL Invalid Interpretation Code 3.0-54.0 [facility] Comment on above: Order Comment: Order Date: 01/11/24Order Info: [id number] - CMPOrder Info: [id number] - TSH1 Result Comment: Crit ical Result(s) Called at: 13:41:02 02/09/2024 by:Millicent Hansen. Results read back by same. Please Note: New Test Units and Gender Specific Reference Ranges. For more information see Policy Stat Procedure Kerrick High Sensitivity Troponin (TNIH) and attachments. Performed By: #### L 501.4020 ####[facility] [address] [place], [place], [address] L501.5425on 02-09-2024 TROPONIN-I HS 214 pg/mL Invalid Interpretation Code 3.0-54.0 [facility] Comment on above: Order Comment: 1Y Result Comment: Crit ical Result(s) Called at: 17:46:00 02/09/2024 by: BERNARDINO. Results read back by Dr. العلي Please Note: New Test Units and Gender Specific Reference Ranges. For more information see Policy Stat Procedure Kerrick High Sensitivity Troponin (TNIH) and attachments. Performed By: #### L 500.2500, L501.5425, L300.3900, L100.0100 ####[facility] [address] [place], [address] Laboratory - Chemistry and C hemistry - challengeOrdered By: Paul Greco on 02-09-2024 AST [Catalytic activity/Vol] 12 U/L Low 15-37 [facility] Lymphocytes Auto (Unsp spec) [#/Vol]Ordered By: Gustabo العلي on 02-09-2024 Lymphocytes (Bld) [#/Vol] 1.50 10*3/uL 0.83-4.51 [facility] Lymphocytes Auto (Unsp spec) [#/Vol]Ordered By: Paul Greco on 02-09-2024 Lymphocytes (Bld) [#/Vol] 1.61 10*3/uL 0.83-4.51 [facility] Lymphocytes/100 WBC Auto (Un sp spec)Ordered By: Gustabo العلي on 02-09-2024 Lymphocytes/100 WBC (Bld) 18.8 % Low 19-41 [facility] Lymphocytes/100 WBC Auto (Un sp spec)Ordered By: Paul Greco on 02-09-2024 Lymphocytes/100 WBC (Bld) 18.4 % Low 19-41 [facility] MCV (mean corpuscular volume ) determinationOrdered By: Gustabo العلي on 02-09-2024 MCV (RBC) [Entitic vol] 81.2 fL 81-99 [facility] MCV (mean corpuscular volume ) determinationOrdered By: Paul Greco on 02-09-2024 MCV (RBC) [Entitic vol] 82.1 fL 81-99 [facility] Mean corpuscular hemoglobin (MCH) determinationOrdered By: Gustabo العلي on 02-09-2024 MCH (RBC) [Entitic mass] 25.3 pg Low 27.0-32.0 [facility] Mean corpuscular hemoglobin (MCH) determinationOrdered By: Paul Greco on 02-09-2024 MCH (RBC) [Entitic mass] 25.1 pg Low 27.0-32.0 [facility] Mean corpuscular hemoglobin concentration (MCHC) determinationOrdered By: Gustabo العلي on 02-09-2024 MCHC (RBC) [Mass/Vol] 31.2 g/dL Low 32-36 [facility] Mean corpuscular hemoglobin concentration (MCHC) determinationOrdered By: Paul Greco on 02-09-2024 MCHC (RBC) [Mass/Vol] 30.6 g/dL Low 32-36 [facility] Mean platelet volume determi nationOrdered By: Gustabo العلي on 02-09-2024 Platelet mean volume (Bld) [Entitic vol] 10.1 fL 6.2-12.0 [facility] Mean platelet volume determi nationOrdered By: Paul Grceo on 02-09-2024 Platelet mean volume (Bld) [Entitic vol] 10.5 fL 6.2-12.0 [facility] Monocyte percentageOrdered B y: Gustabo العلي on 02-09-2024 Monocytes/100 WBC (Bld) 12.0 % High 0-10 [facility] Monocyte percentageOrdered B y: Paul Greco on 02-09-2024 Monocytes/100 WBC (Bld) 10.5 % High 0-10 [facility] Neutrophil percentageOrdered By: Gustabo العلي on 02-09-2024 Neutrophils/100 WBC (Bld) 67.2 % 47-70 [facility] Neutrophil percentageOrdered By: Paul Greco on 02-09-2024 Neutrophils/100 WBC (Bld) 69.0 % 47-70 [facility] Nucleated red blood cell per centageOrdered By: Gustabo العلي on 02-09-2024 Nucleated RBC/100 WBC (Bld) [Ratio] 0 % 0-5 [facility] Nucleated red blood cell per centageOrdered By: Paul Greco on 02-09-2024 Nucleated RBC/100 WBC (Bld) [Ratio] 0 % 0-5 [facility] Platelet countOrdered By: Velasquez العلي on 02-09-2024 Platelets (Bld) [#/Vol] 219 10*3/uL 150-450 [facility] Platelet countOrdered By: Julianna Greco on 02-09-2024 Platelets (Bld) [#/Vol] 246 10*3/uL 150-450 [facility] Potassium measurementOrdered By: Gustabo العلي on 02-09-2024 Potassium [Moles/Vol] 3.0 mmol/L Low 3.5-5.1 [facility] Potassium measurementOrdered By: Paul Greco on 02-09-2024 Potassium [Moles/Vol] 3.1 mmol/L Low 3.5-5.1 [facility] Prothrombin Time w/INRon INR Coag (PPP) [Relative time] 1.1 {INR} Normal [facility] Comment on above: Performed By: #### L 500.2500, L501.5425, L300.3900, L100.0100 ####[facility] [address] [place], [address] PT Coag (PPP) [Time] 13.9 s Normal 11.7-14.9 [facility] Comment on above: Performed By: #### L 500.2500, L501.5425, L300.3900, L100.0100 ####[facility] [address] [place], [address] Prothrombin timeOrdered By: Gustabo العلي on 02-09-2024 PT Coag (PPP) [Time] 13.9 s 11.7-14.9 [facility] RBC Auto (Bld) [#/Vol]Ordere d By: Gustabo العلي on 02-09-2024 RBC (Bld) [#/Vol] 4.62 10*6/uL 4.2-5.4 [facility] RBC Auto (Bld) [#/Vol]Ordere d By: Paul Greco on 02-09-2024 RBC (Bld) [#/Vol] 4.86 10*6/uL 4.2-5.4 [facility] Serum anion gap measurementO rdered By: Gustabo العلي on 02-09-2024 Anion gap [Moles/Vol] 9 mmol/L 07-18 [facility] Serum anion gap measurementO rdered By: Paul Greco on 02-09-2024 Anion gap [Moles/Vol] 10 mmol/L - [facility] Serum globulin measurementOr dered By: Paul Greco on 02-09-2024 Globulin (S) [Mass/Vol] 3.7 g/dL 2.2-4.2 [facility] Serum or plasma alanine mesa otransferase (ALT) measurementOrdered By: Paul Greco on 02-09-2024 ALT [Catalytic activity/Vol] 21 U/L - [facility] Serum or plasma albumin aminta urement (mass/volume)Ordered By: Paul Greco on 02-09-2024 Albumin [Mass/Vol] 3.8 g/dL 3.2-5.0 [facility] Serum or plasma alkaline arcelia sphatase measurementOrdered By: Paul Greco on 02-09-2024 ALP [Catalytic activity/Vol] 77 U/L 45-117 [facility] Serum or plasma calcium aminta urement (mass/volume)Ordered By: Gustabo العلي on 02-09-2024 Calcium [Mass/Vol] 9.1 mg/dL 8.5-10.1 [facility] Serum or plasma calcium aminta urement (mass/volume)Ordered By: Paul Greco on 02-09-2024 Calcium [Mass/Vol] 9.4 mg/dL 8.5-10.1 [facility] Serum or plasma creatinine m easurement (mass/volume)Ordered By: Gustabo العلي on 02-09-2024 Creatinine [Mass/Vol] 0.62 mg/dL 0.55-1.02 [facility] Comment on above: The validity of the calculated GFR & GFRAA in patients over 70 years has not been determined. Clinical correlation is essential. Serum or plasma creatinine m easurement (mass/volume)Ordered By: Paul Greco on 02-09-2024 Creatinine [Mass/Vol] 0.61 mg/dL 0.55-1.02 [facility] Comment on above: The validity of the calculated GFR & GFRAA in patients over 70 years has not been determined. Clinical correlation is essential. Serum or plasma urea nitroge n measurement (mass/volume)Ordered By: Gustabo العلي on 02-09-2024 Urea nitrogen [Mass/Vol] 10 mg/dL 7-18 [facility] Serum or plasma urea nitroge n measurement (mass/volume)Ordered By: Paul Greco on 02-09-2024 Urea nitrogen [Mass/Vol] 8 mg/dL 7-18 [facility] Sodium levelOrdered By: Gustabo العلي on 02-09-2024 Sodium [Moles/Vol] 141 mmol/L 136-145 [facility] Sodium levelOrdered By: Oleg Greco on 02-09-2024 Sodium [Moles/Vol] 140 mmol/L 136-145 [facility] TSH QnOrdered By: Paul fabian on 02-09-2024 Thyroid Stimulating Hormone (TSH) 1.820 uIU/mL 0.358-3.740 [facility] Thyroid Stim Hormone (TSH)on 02-09-2024 TSH 1.820 uIU/mL Normal 0.358-3.740 [facility] Comment on above: Order Comment: Order Date: 01/11/24Order Info: [id number] - CMPOrder Info: [id number] - TSH1 Performed By: #### L 506.1000, L100.0100, L501.9520, L500.4050 ####[facility] [address] [place], [place], [address] Total proteinOrdered By: Renate Greco on 02-09-2024 Protein [Mass/Vol] 7.5 g/dL 6.4-8.2 [facility] Tropinin I.cardiac panel Hig h sensitivity methodOrdered By: Gustabo العلي on 02-09-2024 Troponin I High Sensitivity 214 pg/mL High 3.0-54.0 [facility] Comment on above: Critical Result(s) C alled at: 17:46:00 02/09/2024 by: KATHIA STONE. Results read back by Dr. العلي Please Note: New Test Units and Gender Specific Reference Ranges. For more information see Policy Stat Procedure Kerrick High Sensitivity Troponin (TNIH) and attachments. Troponin IOrdered By: Paul Greco on 02-09-2024 Troponin I High Sensitivity 213 pg/mL High 3.0-54.0 [facility] Comment on above: Critical Result(s) C alled at: 13:41:02 02/09/2024 by: Millicent Hansen. Results read back by same. Please Note: New Test Units and Gender Specific Reference Ranges. For more information see Policy Stat Procedure Kerrick High Sensitivity Troponin (TNIH) and attachments. Vitamin D,25 Hydroxyon 02-08 Vitamin D 25-OH 72.0 ng/mL Normal [facility] Comment on above: Order Comment: Order Date: 01/11/24Order Info: [id number] - [id number] Result Comment: Magdalena min D 25(OH) Status Range Deficiency <20 ng/mL (50nmol/L) Insufficiency 20 - 30 ng/mL (50 - 75 nmol/L) Sufficiency 30 - 100 ng/mL (75 - 250 nmol/L) Toxicity >100 ng/mL (>250 nmol/L) Performed By: #### L 506.1000, L100.0100, L501.9520, L500.4050 ####[facility] [address] [place], [place], [id number] White blood cell (WBC) count Ordered By: Gustabo العلي on 02-09-2024 WBC (Bld) [#/Vol] 8.0 10*3/uL 4.4-11.0 [facility] White blood cell (WBC) count Ordered By: Paul Greco on 02-09-2024 WBC (Bld) [#/Vol] 8.8 10*3/uL 4.4-11.0 [facility] Gastroenterology Visit Repor ton 02-06-2024 Gastroenterology Visit Report Normal [facility] Absolute neutrophil countOrd ered By: Xiang Rogers on 01-31-2024 Neutrophils (Bld) [#/Vol] 2.4 10*3/uL 2.0-7.7 [facility] Albumin to globulin ratioOrd ered By: Xiang Rogers on 01-31-2024 Albumin/Globulin [Mass ratio] 1.1 {ratio} 0.9-2.4 [facility] BNP (brain natriuretic pepti de measurement)Ordered By: Xiang Rogers on 01-31-2024 Natriuretic peptide B (Bld) [Mass/Vol] 55.2 pg/mL 0-100 [facility] BNP,B-Type NATRIURETIC PEPTI Kem 01-31-2024 Natriuretic peptide B (Bld) [Mass/Vol] 55.2 pg/mL Normal 0-100 [facility] Comment on above: Performed By: #### L 500.4050, L100.0100, L503.6620 ####[facility] [address] [place], [address] Basophil percentageOrdered B y: Xiang Rogers on 01-31-2024 Basophils/100 WBC (Bld) 1.0 % 0-1 [facility] Bilirubin, totalOrdered By: Xiang Rogers on 01-31-2024 Bilirubin [Mass/Vol] 0.50 mg/dL 0.20-1.00 [facility] Comment on above: For patients on eltr ombopag therapy, use of Dimension Kerrick TBIL is not recommended. Blood urea nitrogen (BUN)/cr eatinine ratioOrdered By: Xiang Rogers on 01-31-2024 Urea nitrogen/Creatinine [Mass ratio] 12.9 mg/mg - [facility] CBC W/Diff, Automatedon 01-05 Absolute Lymph 1.73 X10 3/uL Normal 0.83-4.51 [facility] Comment on above: Performed By: #### L 500.4050, L100.0100, L503.6620 ####[facility] [address] [place], [address] Absolute Neut 2.4 X10 3/uL Normal 2.0-7.7 [facility] Comment on above: Performed By: #### L 500.4050, L100.0100, L503.6620 ####[facility] [address] [place], [address] Basophils/100 WBC (Bld) 1.0 % Normal 0-1 [facility] Comment on above: Performed By: #### L 500.4050, L100.0100, L503.6620 ####[facility] [address] [place], [address] Eosinophils/100 WBC (Bld) 3.3 % Normal 0-5 [facility] Comment on above: Performed By: #### L 500.4050, L100.0100, L503.6620 ####[facility] [address] [place], [address] Erythrocyte distribution width (RBC) [Ratio] 20.0 % High 11.6-14.6 [facility] Comment on above: Performed By: #### L 500.4050, L100.0100, L503.6620 ####[facility] [address] [place], [address] Hematocrit (Bld) [Volume fraction] 38.6 % Normal 37-47 [facility] Comment on above: Performed By: #### L 500.4050, L100.0100, L503.6620 ####[facility] [address] [place], [address] Hemoglobin (Bld) [Mass/Vol] 11.7 g/dL Low 12.0-15.0 [facility] Comment on above: Performed By: #### L 500.4050, L100.0100, L503.6620 ####[facility] [address] [place], [address] IG% 0.200 Normal 0.0-0.9 [facility] Comment on above: Result Comment: IG% - Immature Granulocytes (promyelocytes, myelocytes andmetamyelocytes) > 1% indicates that a LEFT SHIFT is Present. Performed By: #### L 500.4050, L100.0100, L503.6620 ####[facility] [address] [place], [address] Lymphocytes/100 WBC (Bld) 35.6 % Normal 19-41 [facility] Comment on above: Performed By: #### L 500.4050, L100.0100, L503.6620 ####[facility] [address] [place], [address] MCH (RBC) [Entitic mass] 24.8 pg Low 27.0-32.0 [facility] Comment on above: Performed By: #### L 500.4050, L100.0100, L503.6620 ####[facility] [address] [place], [address] MCHC (RBC) [Mass/Vol] 30.3 g/dL Low 32-36 [facility] Comment on above: Performed By: #### L 500.4050, L100.0100, L503.6620 ####[facility] [address] [place], [address] MCV (RBC) [Entitic vol] 81.8 fL Normal 81-99 [facility] Comment on above: Performed By: #### L 500.4050, L100.0100, L503.6620 ####[facility] [address] [place], [address] Monocytes/100 WBC (Bld) 9.9 % Normal 0-10 [facility] Comment on above: Performed By: #### L 500.4050, L100.0100, L503.6620 ####[facility] [address] [place], [address] Neutrophils/100 WBC (Bld) 50.0 % Normal 47-70 [facility] Comment on above: Performed By: #### L 500.4050, L100.0100, L503.6620 ####[facility] [address] [place], [address] Nucleated RBC (Bld) [#/Vol] 0 10*3/uL Normal 0-5 [facility] Comment on above: Performed By: #### L 500.4050, L100.0100, L503.6620 ####[facility] [address] [place], [address] Platelet mean volume (Bld) [Entitic vol] 9.9 fL Normal 6.2-12.0 [facility] Comment on above: Performed By: #### L 500.4050, L100.0100, L503.6620 ####[facility] [address] [place], [address] Platelets (Bld) [#/Vol] 268 10*3/uL Normal 150-450 [facility] Comment on above: Performed By: #### L 500.4050, L100.0100, L503.6620 ####[facility] [address] [place], [address] RBC (Bld) [#/Vol] 4.72 10*6/uL Normal 4.2-5.4 [facility] Comment on above: Performed By: #### L 500.4050, L100.0100, L503.6620 ####[facility] [address] [place], [address] RDW SD 58.1 fl High 35.1-43.9 [facility] Comment on above: Performed By: #### L 500.4050, L100.0100, L503.6620 ####[facility] [address] [place], [address] WBC (Bld) [#/Vol] 4.9 10*3/uL Normal 4.4-11.0 [facility] Comment on above: Performed By: #### L 500.4050, L100.0100, L503.6620 ####[facility] [address] [place], [address] Carbon dioxide measurementOr dered By: Xiang Rogers on 01-31-2024 CO2 [Moles/Vol] 31.0 mmol/L 21.0-32.0 [facility] Chloride measurementOrdered By: Xiang Rogers on 01-31-2024 Chloride [Moles/Vol] 105 mmol/L 98-107 [facility] Comprehensive Metabolic Prof ilon 01-31-2024 Albumin [Mass/Vol] 3.6 g/dL Normal 3.2-5.0 [facility] Comment on above: Performed By: #### L 500.4050, L100.0100, L503.6620 ####[facility] [address] [place], [address] Albumin/Globulin [Mass ratio] 1.1 {ratio} Normal 0.9-2.4 [facility] Comment on above: Performed By: #### L 500.4050, L100.0100, L503.6620 ####[facility] [address] [place], [address] ALK P 107 U/L Normal 45-117 [facility] Comment on above: Performed By: #### L 500.4050, L100.0100, L503.6620 ####[facility] [address] [place], [address] ALT [Catalytic activity/Vol] 23 U/L Normal 13-56 [facility] Comment on above: Performed By: #### L 500.4050, L100.0100, L503.6620 ####[facility] [address] [place], [address] AST [Catalytic activity/Vol] 18 U/L Normal 15-37 [facility] Comment on above: Performed By: #### L 500.4050, L100.0100, L503.6620 ####[facility] [address] [place], [address] Bilirubin [Mass/Vol] 0.50 mg/dL Normal 0.20-1.00 [facility] Comment on above: Result Comment: For patients on eltrombopag therapy, use of Dimension Kerrick TBIL is not recommended. Performed By: #### L 500.4050, L100.0100, L503.6620 ####[facility] [address] [place], [address] BUN/CRE 12.9 RATIO Normal 10-20 [facility] Comment on above: Performed By: #### L 500.4050, L100.0100, L503.6620 ####[facility] [address] [place], [address] CA,Total 9.6 mg/dL Normal 8.5-10.1 [facility] Comment on above: Performed By: #### L 500.4050, L100.0100, L503.6620 ####[facility] [address] [place], [address] Chloride [Moles/Vol] 105 mmol/L Normal 98-107 [facility] Comment on above: Performed By: #### L 500.4050, L100.0100, L503.6620 ####[facility] [address] [place], [address] CO2 [Moles/Vol] 31.0 mmol/L Normal 21.0-32.0 [facility] Comment on above: Performed By: #### L 500.4050, L100.0100, L503.6620 ####[facility] [address] [place], [address] Creatinine [Mass/Vol] 0.70 mg/dL Normal 0.55-1.02 [facility] Comment on above: Result Comment: The validity of the calculated GFR GFRAA in patients over70 years has not been determined. Clinical correlation isessential. Performed By: #### L 500.4050, L100.0100, L503.6620 ####[facility] [address] [place], [address] EST GFR - AA 109 mL/min Normal >60 [facility] Comment on above: Result Comment: Afri can Nepalese GFR Calc Performed By: #### L 500.4050, L100.0100, L503.6620 ####[facility] [address] [place], [address] GAP 6 Normal 5-15 [facility] Comment on above: Performed By: #### L 500.4050, L100.0100, L503.6620 ####[facility] [address] [place], [address] GFR/1.73 sq M.predicted among non-blacks MDRD (S/P/Bld) [Vol rate/Area] 90 mL/min/{1.73_m2} Normal >60 [facility] Comment on above: Result Comment: Non- GFR Calc Performed By: #### L 500.4050, L100.0100, L503.6620 ####[facility] [address] [place], [address] Globulin (S) [Mass/Vol] 3.3 g/dL Normal 2.2-4.2 [facility] Comment on above: Performed By: #### L 500.4050, L100.0100, L503.6620 ####[facility] [address] [place], [address] Glucose [Mass/Vol] 216 mg/dL High 74-106 [facility] Comment on above: Result Comment: Gluc ose result greater than or equal to 200 mg/dLsuggests DIABETES MELLITUS per A.D.A. criteria. Performed By: #### L 500.4050, L100.0100, L503.6620 ####[facility] [address] [place], [address] Potassium [Moles/Vol] 3.1 mmol/L Low 3.5-5.1 [facility] Comment on above: Performed By: #### L 500.4050, L100.0100, L503.6620 ####[facility] [address] [place], [address] Sodium [Moles/Vol] 142 mmol/L Normal 136-145 [facility] Comment on above: Performed By: #### L 500.4050, L100.0100, L503.6620 ####[facility] [address] [place], [address] T PROT 6.9 g/dL Normal 6.4-8.2 [facility] Comment on above: Performed By: #### L 500.4050, L100.0100, L503.6620 ####[facility] [address] [place], [place], [id number] Urea nitrogen [Mass/Vol] 9 mg/dL Normal 7-18 [facility] Comment on above: Performed By: #### L 500.4050, L100.0100, L503.6626 ####[facility] [address] [place], [place], [id number] Eosinophil percentageOrdered By: Xiang Rogers on 01-31-2024 Eosinophils/100 WBC (Bld) 3.3 % 0-5 [facility] Erythrocyte distribution wid th ratioOrdered By: Xiang Rogers on 01-31-2024 Erythrocyte distribution width (RBC) [Ratio] 20.0 % High 11.6-14.6 [facility] Erythrocyte distribution wid th standard deviationOrdered By: Xiang Rogers on 01-31-2024 Erythrocyte distribution width (RBC) [Entitic vol] 58.1 fL High 35.1-43.9 [facility] Estimated glomerular filtrat ion rate (GFR) AmericanOrdered By: Xiang Rogers on 01-31-2024 Estimated GFR (MDRD) Amer 109 mL/min >60 [facility] Comment on above: GFR Calc Glomerular filtration rate ( GFR) estimationOrdered By: Xiang Rogers on 01-31-2024 Estimated GFR (MDRD) Non-Af Amer 90 mL/min >60 [facility] Comment on above: Non- GFR Calc Glucose measurementOrdered B y: Xiang Rogers on 01-31-2024 Glucose [Mass/Vol] 216 mg/dL High 74-106 [facility] Comment on above: Glucose result great er than or equal to 200 mg/dLsuggests DIABETES MELLITUS per A.D.A. criteria. Hematocrit Auto (Bld) [Volum e fraction]Ordered By: Xiang Rogers on 01-31-2024 Hematocrit (Bld) [Volume fraction] 38.6 % 37-47 [facility] Hemoglobin measurementOrdere d By: Xiang Rogers on 01-31-2024 Hemoglobin (Bld) [Mass/Vol] 11.7 g/dL Low 12.0-15.0 [facility] Immature granulocytes/100 WB C Auto (Bld)Ordered By: Xiang Rogers on 01-31-2024 Immature granulocytes/100 WBC (Bld) 0.200 % 0.0-0.9 [facility] Comment on above: IG% - Immature Granu locytes (promyelocytes, myelocytes and metamyelocytes) > 1% indicates that a LEFT SHIFT is Present. Laboratory - Chemistry and C hemistry - challengeOrdered By: Xiang Rogers on 01-31-2024 AST [Catalytic activity/Vol] 18 U/L 15-37 [facility] Lymphocytes Auto (Unsp spec) [#/Vol]Ordered By: Xiang Rogers on 01-31-2024 Lymphocytes (Bld) [#/Vol] 1.73 10*3/uL 0.83-4.51 [facility] Lymphocytes/100 WBC Auto (Un sp spec)Ordered By: Xiang Rogers on 01-31-2024 Lymphocytes/100 WBC (Bld) 35.6 % 19-41 [facility] MCV (mean corpuscular volume ) determinationOrdered By: Xiang Rogers on 01-31-2024 MCV (RBC) [Entitic vol] 81.8 fL 81-99 [facility] Mean corpuscular hemoglobin (MCH) determinationOrdered By: Xiang Rogers on 01-31-2024 MCH (RBC) [Entitic mass] 24.8 pg Low 27.0-32.0 [facility] Mean corpuscular hemoglobin concentration (MCHC) determinationOrdered By: Xiang Rogers on 01-31-2024 MCHC (RBC) [Mass/Vol] 30.3 g/dL Low 32-36 [facility] Mean platelet volume determi nationOrdered By: Xiang Rogers on 01-31-2024 Platelet mean volume (Bld) [Entitic vol] 9.9 fL 6.2-12.0 [facility] Monocyte percentageOrdered B y: Xiang Rogers on 01-31-2024 Monocytes/100 WBC (Bld) 9.9 % 0-10 [facility] Neutrophil percentageOrdered By: Xiang Rogers on 01-31-2024 Neutrophils/100 WBC (Bld) 50.0 % 47-70 [facility] Nucleated red blood cell per centageOrdered By: Xiang Rogers on 01-31-2024 Nucleated RBC/100 WBC (Bld) [Ratio] 0 % 0-5 [facility] Platelet countOrdered By: Nicole Rogers on 01-31-2024 Platelets (Bld) [#/Vol] 268 10*3/uL 150-450 [facility] Potassium measurementOrdered By: Xiang Rogers on 01-31-2024 Potassium [Moles/Vol] 3.1 mmol/L Low 3.5-5.1 [facility] RBC Auto (Bld) [#/Vol]Ordere d By: Xiang Rogers on 01-31-2024 RBC (Bld) [#/Vol] 4.72 10*6/uL 4.2-5.4 [facility] Serum anion gap measurementO rdered By: Xiang Rogers on 01-31-2024 Anion gap [Moles/Vol] 6 mmol/L 5-15 [facility] Serum globulin measurementOr dered By: Xaing Rogers on 01-31-2024 Globulin (S) [Mass/Vol] 3.3 g/dL 2.2-4.2 [facility] Serum or plasma alanine mesa otransferase (ALT) measurementOrdered By: Xiang Rogers on 01-31-2024 ALT [Catalytic activity/Vol] 23 U/L 13-56 [facility] Serum or plasma albumin aminta urement (mass/volume)Ordered By: Xiang Rogers on 01-31-2024 Albumin [Mass/Vol] 3.6 g/dL 3.2-5.0 [facility] Serum or plasma alkaline arcelia sphatase measurementOrdered By: Xiang Rogers on 01-31-2024 ALP [Catalytic activity/Vol] 107 U/L 45-117 [facility] Serum or plasma calcium aminta urement (mass/volume)Ordered By: Xiang Rogers on 01-31-2024 Calcium [Mass/Vol] 9.6 mg/dL 8.5-10.1 [facility] Serum or plasma creatinine m easurement (mass/volume)Ordered By: Xiang Rogers on 01-31-2024 Creatinine [Mass/Vol] 0.70 mg/dL 0.55-1.02 [facility] Comment on above: The validity of the calculated GFR & GFRAA in patients over 70 years has not been determined. Clinical correlation is essential. Serum or plasma urea nitroge n measurement (mass/volume)Ordered By: Xiang Rogers on 01-31-2024 Urea nitrogen [Mass/Vol] 9 mg/dL 7-18 [facility] Sodium levelOrdered By: Xiang Ken on 01-31-2024 Sodium [Moles/Vol] 142 mmol/L 136-145 [facility] Total proteinOrdered By: Florencio palomares Ken on 01-31-2024 Protein [Mass/Vol] 6.9 g/dL 6.4-8.2 [facility] White blood cell (WBC) count Ordered By: Xiang Ken on 01-31-2024 WBC (Bld) [#/Vol] 4.9 10*3/uL 4.4-11.0 [facility] CR - History AND Physicalon 01-24-2024 CR - History & Physical Normal [facility] CNPNon 01-20-2024 CNPN Telephone (AGRHEUHWN ) JAYLIN CARROLL ([id number]) 1960 F Date Time Provider Department 01/20/24 ROBERT FARIAS During your visit today, we recorded the following information about you: Robert Farias MD 01/20/2024 2:58 PM Signed Please let her know labs show anemia Get test done ordered Also stool test MD Sylwia Reis Gail, LPN 01/22/2024 9:27 AM Signed Pt was discharged on Monday after a two day stay at [facility] diagnosed with pneumonia and FL (NSTEMI). Discharge summary in Epic (care everywhere). Pt had a heart cath done without intervention but was started on plavix. ABX tx has been completed and pt also was diagnosed with anemia and started on oral iron. Pt is to follow up with GI and that appointment will be made with a provider in the [place] area. Pt reports that the stool for OB was negative in the hospital. Pt would prefer to follow up with GI and not do the additional blood work as ordered by as she has many post admission follow ups scheduled. Byrnn Fofana LPN Allergies As of Date: 01/20/2024 Noted Allergy Reaction DEMEROL (MEPERIDINE) 06/19/2020 14 - Other: See Comments Comments: Lowered blood pressure extremely low SULFA (SULFONAMIDE ANTIBIOTICS) 06/19/2020 8 - GI Upset Comments: Stomach pain severe Date Reviewed: 01/18/2024 Reviewed by: Goldie Bullock RN - Fully Assessed Primary Visit Diagnosis:Anemia, chronic disease [D63.8] Order(s):IRON AND TIBC [SQIRON] Order #: [id number] FUTURE VITAMIN B12 [SQB12] Order #: [id number] FUTURE FOLATE, SERUM [SQSERFOL] Order #: [id number] FUTURE FERRITIN [SQFERR] Order #: [id number] FUTURE IMMUNOCHEMICAL FECAL OCCULT BLOOD TEST [SQIFOBT] Order #: [id number]. #:[id number] Prescriptions as of 01/22/2024 - hydrOXYchloroQUINE (PLAQUENIL) [...] Status:Closed by BRYNN FOFANA on 01/22/24 Normal [facility] CBC W Auto Differential pane l (Bld)on 01-18-2024 Basophils (Bld) [#/Vol] 0.05 10*3/uL Normal <0.11 [facility] Comment on above: Order Comment: Speci men Type: BLOOD SPECIMEN Ordering Facility: [facility] Address: [address] [place] [address] Performed By: #### 5 7021-8 #### [facility] CLIA [id number] [address] [place] [address] [place] Basophils/100 WBC (Bld) 0.6 % Normal A [facility] Comment on above: Order Comment: Speci men Type: BLOOD SPECIMEN Ordering Facility: [facility] Address: [address] [place] [address] Performed By: #### 5 7021-8 #### [facility] CLIA [id number] [address] [place] Differential cell count method Nom (Bld) Auto Normal [facility] Comment on above: Order Comment: Speci men Type: BLOOD SPECIMEN Ordering Facility: [facility] Address: [address] [place] [address] Performed By: #### 5 7021-8 #### [facility] CLIA [id number] [address] [place] [address] [place] Eosinophils (Bld) [#/Vol] 0.20 10*3/uL Normal <0.46 [facility] Comment on above: Order Comment: Speci men Type: BLOOD SPECIMEN Ordering Facility: [facility] Address: [address] [place] [address] Performed By: #### 5 7021-8 #### [facility] CLIA [id number] [address] [place] Eosinophils/100 WBC (Bld) 2.5 % Normal [facility] Comment on above: Order Comment: Speci men Type: BLOOD SPECIMEN Ordering Facility: [facility] Address: [address] [place] [address] Performed By: #### 5 7021-8 #### [facility] CLIA [id number] [address] [place] Erythrocyte distribution width (RBC) [Ratio] 19.1 % High 11.5-15.0 [facility] Comment on above: Order Comment: Speci men Type: BLOOD SPECIMEN Ordering Facility: [facility] Address: [address] [place] [address] Performed By: #### 5 7021-8 #### [facility] CLIA [id number] [address] [place] Hematocrit (Bld) [Volume fraction] 30.9 % Low 36.0-46.0 [facility] Comment on above: Order Comment: Speci men Type: BLOOD SPECIMEN Ordering Facility: [facility] Address: [address] [place] [address] Performed By: #### 5 7021-8 #### [facility] CLIA [id number] [address] [place] Hemoglobin (Bld) [Mass/Vol] 9.4 g/dL Low 11.5-15.5 [facility] Comment on above: Order Comment: Speci men Type: BLOOD SPECIMEN Ordering Facility: [facility] Address: [address] [place] [address] Performed By: #### 5 7021-8 #### [facility] CLIA [id number] [address] [place] Immature granulocytes (Bld) [#/Vol] 0.33 10*3/uL High <0.10 [facility] Comment on above: Order Comment: Speci men Type: BLOOD SPECIMEN Ordering Facility: [facility] Address: [address] [place] [address] Performed By: #### 5 7021-8 #### [facility] CLIA [id number] [address] Immature granulocytes/100 WBC (Bld) 4.1 % Normal [facility] Comment on above: Order Comment: Speci men Type: BLOOD SPECIMEN Ordering Facility: [facility] Address: [address] [place] [address] Performed By: #### 5 7021-8 #### [facility] CLIA [id number] [address] [place] Lymphocytes (Bld) [#/Vol] 1.27 10*3/uL Normal 1.00-4.00 [facility] Comment on above: Order Comment: Speci men Type: BLOOD SPECIMEN Ordering Facility: [facility] Address: [address] [place] [address] Performed By: #### 5 7021-8 #### [facility] CLIA [id number] [address] Lymphocytes/100 WBC (Bld) 15.8 % Normal [facility] Comment on above: Order Comment: Speci men Type: BLOOD SPECIMEN Ordering Facility: [facility] Address: [address] [place] [address] Performed By: #### 5 7021-8 #### [facility] CLIA [id number] [address] [place] MCH (RBC) [Entitic mass] 24.6 pg Low 26.0-34.0 [facility] Comment on above: Order Comment: Speci men Type: BLOOD SPECIMEN Ordering Facility: [facility] Address: [address] [place] [address] Performed By: #### 5 7021-8 #### [facility] CLIA [id number] [address] [place] MCHC (RBC) [Mass/Vol] 30.4 g/dL Low 30.5-36.0 [facility] Comment on above: Order Comment: Speci men Type: BLOOD SPECIMEN Ordering Facility: [facility] Address: [address] [place] [address] Performed By: #### 5 7021-8 #### [facility] CLIA [id number] [address] [place] MCV (RBC) [Entitic vol] 80.9 fL Normal 80.0-100.0 [facility] Comment on above: Order Comment: Speci men Type: BLOOD SPECIMEN Ordering Facility: [facility] Address: [address] [place] [address] Performed By: #### 5 7021-8 #### [facility] CLIA [id number] [address] [place] Monocytes (Bld) [#/Vol] 0.24 10*3/uL Normal <0.87 [facility] Comment on above: Order Comment: Speci men Type: BLOOD SPECIMEN Ordering Facility: [facility] Address: [address] [place] [address] Performed By: #### 5 7021-8 #### [facility] CLIA [id number] [address] [place] Monocytes/100 WBC (Bld) 3.0 % Normal A [facility] Comment on above: Order Comment: Speci men Type: BLOOD SPECIMEN Ordering Facility: [facility] Address: [address] [place] [address] Performed By: #### 5 7021-8 #### [facility] CLIA [id number] [address] [place] Neutrophils (Bld) [#/Vol] 5.94 10*3/uL Normal 1.45-7.50 [facility] Comment on above: Order Comment: Speci men Type: BLOOD SPECIMEN Ordering Facility: [facility] Address: [address] [place] [address] Performed By: #### 5 7021-8 #### [facility] CLIA [id number] [address] [place] Neutrophils/100 WBC (Bld) 74.0 % Normal [facility] Comment on above: Order Comment: Speci men Type: BLOOD SPECIMEN Ordering Facility: [facility] Address: [address] [place] [address] Performed By: #### 5 7021-8 #### [facility] CLIA [id number] [address] Nucleated RBC (Bld) [#/Vol] 10*3/uL Normal <0.01 [facility] Comment on above: Order Comment: Speci men Type: BLOOD SPECIMEN Ordering Facility: [facility] Address: [address] [place] [address] Performed By: #### 5 7021-8 #### [facility] CLIA [id number] [address] [place] Nucleated RBC/100 WBC (Bld) [Ratio] 0.0 /100 WBC Normal [facility] Comment on above: Order Comment: Speci men Type: BLOOD SPECIMEN Ordering Facility: [facility] Address: [address] [place] [address] Performed By: #### 5 7021-8 #### [facility] CLIA [id number] [address] [place] Platelet mean volume (Bld) [Entitic vol] 9.5 fL Normal 9.0-12.7 [facility] Comment on above: Order Comment: Speci men Type: BLOOD SPECIMEN Ordering Facility: [facility] Address: [address] [place] [address] Performed By: #### 5 7021-8 #### [facility] CLIA [id number] [address] [place] Platelets (Bld) [#/Vol] 352 10*3/uL Normal 150-400 [facility] Comment on above: Order Comment: Speci men Type: BLOOD SPECIMEN Ordering Facility: [facility] Address: [address] [place] [address] Performed By: #### 5 7021-8 #### [facility] CLIA [id number] [address] RBC (Bld) [#/Vol] 3.82 10*6/uL Low 3.90-5.20 [facility] Comment on above: Order Comment: Speci men Type: BLOOD SPECIMEN Ordering Facility: [facility] Address: [address] [place] [address] Performed By: #### 5 7021-8 #### [facility] CLIA [id number] [address] OF [facility] WBC (Bld) [#/Vol] 8.03 10*3/uL Normal 3.70-11.00 [facility] Comment on above: Order Comment: Speci men Type: BLOOD SPECIMEN Ordering Facility: [facility] Address: [address] [place] [address] Performed By: #### 5 7021-8 #### [facility] CLIA [id number] [address] Comprehensive metabolic 2000 panelon 01-18-2024 Albumin [Mass/Vol] 3.6 g/dL Low 3.9-4.9 [facility] Comment on above: Order Comment: Speci men Type: BLOOD SPECIMEN Ordering Facility: [facility] Address: [address] [place] [address] Performed By: #### 2 4323-8 #### [facility] CLIA [id number] [address] ALP [Catalytic activity/Vol] 101 U/L Normal 34-123 [facility] Comment on above: Order Comment: Speci men Type: BLOOD SPECIMEN Ordering Facility: [facility] Address: [address] [place] [address] Performed By: #### 2 4323-8 #### [facility] CLIA [id number] [address] ALT With P-5'-P [Catalytic activity/Vol] 27 U/L Normal 7-38 [facility] Comment on above: Order Comment: Speci men Type: BLOOD SPECIMEN Ordering Facility: [facility] Address: [address] [place] [address] Performed By: #### 2 4323-8 #### [facility] CLIA [id number] [address] [place] [address] [place] Anion gap [Moles/Vol] 14 mmol/L Normal 8-15 [facility] Comment on above: Order Comment: Speci men Type: BLOOD SPECIMEN Ordering Facility: [facility] Address: [address] [place] [address] Performed By: #### 2 4323-8 #### [facility] CLIA [id number] [address] [place] [address] [place] AST With P-5'-P [Catalytic activity/Vol] 23 U/L Normal 13-35 [facility] Comment on above: Order Comment: Speci men Type: BLOOD SPECIMEN Ordering Facility: [facility] Address: [address] [place] [address] Performed By: #### 2 4323-8 #### [facility] CLIA [id number] [address] [place] [address] [place] Bilirubin [Mass/Vol] 0.3 mg/dL Normal 0.2-1.3 [facility] Comment on above: Order Comment: Speci men Type: BLOOD SPECIMEN Ordering Facility: [facility] Address: [address] [place] [address] Performed By: #### 2 4323-8 #### [facility] CLIA [id number] [address] [place] Calcium [Mass/Vol] 9.2 mg/dL Normal 8.5-10.2 [facility] Comment on above: Order Comment: Speci men Type: BLOOD SPECIMEN Ordering Facility: [facility] Address: [address] [place] [address] Performed By: #### 2 4323-8 #### [facility] CLIA [id number] [address] [place] [address] [place] Chloride [Moles/Vol] 104 mmol/L Normal 98-107 [facility] Comment on above: Order Comment: Speci men Type: BLOOD SPECIMEN Ordering Facility: [facility] Address: [address] [place] [address] Performed By: #### 2 4323-8 #### [facility] CLIA [id number] [address] STATES OF [facility] CO2 [Moles/Vol] 23 mmol/L Normal 22-30 [facility] Comment on above: Order Comment: Speci men Type: BLOOD SPECIMEN Ordering Facility: [facility] Address: [address] [place] [address] Performed By: #### 2 4323-8 #### [facility] CLIA [id number] [address] OF [facility] Creatinine [Mass/Vol] 0.46 mg/dL Low 0.58-0.96 [facility] Comment on above: Order Comment: Speci men Type: BLOOD SPECIMEN Ordering Facility: [facility] Address: [address] [place] [address] Performed By: #### 2 4323-8 #### [facility] CLIA [id number] [address] Creatinine and Glomerular filtration rate.predicted panel (S/P/Bld) 108 mL/min/1.73m??? Normal >=60 [facility] Comment on above: Order Comment: Speci men Type: BLOOD SPECIMEN Ordering Facility: [facility] Address: [address] [place] [address] Result Comment: Glynn mated Glomerular Filtration Rate [...] GFR. Performed By: #### 2 4323-8 #### [facility] CLIA [id number] [address] OF [facility] Glucose [Mass/Vol] 192 mg/dL High 74-99 [facility] Comment on above: Order Comment: Speci men Type: BLOOD SPECIMEN Ordering Facility: [facility] Address: [address] [place] [address] Result Comment: The [place] [employer] (ADA) provides guidance for cutoff [...] Standards of Medical Care in Diabetes 2016, [place] [employer]. Diabetes Care. 2016.39(Suppl 1). Performed By: #### 2 4323-8 #### [facility] CLIA [id number] [address] [place] [address] [place] Potassium [Moles/Vol] 3.6 mmol/L Low 3.7-5.1 [facility] Comment on above: Order Comment: Matt men Type: BLOOD SPECIMEN Ordering Facility: [facility] Address: [address] [place] [address] Performed By: #### 2 4323-8 #### [facility] CLIA [id number] [address] [place] [address] [place] Protein [Mass/Vol] 6.3 g/dL Normal 6.3-8.0 [facility] Comment on above: Order Comment: Speci men Type: BLOOD SPECIMEN Ordering Facility: [facility] Address: [address] [id number] Performed By: #### 2 4323-8 #### [facility] CLIA [id number] [address] [place] [address] [place] Sodium [Moles/Vol] 141 mmol/L Normal 136-144 [facility] Comment on above: Order Comment: Latonyai men Type: BLOOD SPECIMEN Ordering Facility: [facility] Address: [address] [id number] Performed By: #### 2 4323-8 #### [facility] CLIA [id number] [address] [place] [address] [place] Urea nitrogen [Mass/Vol] 10 mg/dL Normal 7-21 [facility] Comment on above: Order Comment: Speci men Type: BLOOD SPECIMEN Ordering Facility: [facility] Address: [facility] [place] [address] Performed By: #### 2 4323-8 #### [facility] CLIA [id number] [address] [place] [id number] [place] CBC W/Diff, Automatedon 11- Absolute Neut Normal 2.0-7.7 [facility] Comment on above: Result Comment: Canc elled via OM: Order cancelled - Patient discharged Performed By: #### L 500.4050, L100.0100 ####[facility] [address] [place], [address] HCT Normal 37-47 [facility] Comment on above: Result Comment: Canc elled via OM: Order cancelled - Patient discharged Performed By: #### L 500.4050, L100.0100 ####[facility] [address] [place], [address] HGB Normal 12.0-15.0 [facility] Comment on above: Result Comment: Canc elled via OM: Order cancelled - Patient discharged Performed By: #### L 500.4050, L100.0100 ####[facility] [address] [place], [address] MCH Normal 27.0-32.0 [facility] Comment on above: Result Comment: Canc elled via OM: Order cancelled - Patient discharged Performed By: #### L 500.4050, L100.0100 ####[facility] [address] [place], [address] MCHC Normal 32-36 [facility] Comment on above: Result Comment: Canc elled via OM: Order cancelled - Patient discharged Performed By: #### L 500.4050, L100.0100 ####[facility] [address] [place], [address] MCV Normal 81-99 [facility] Comment on above: Result Comment: Canc elled via OM: Order cancelled - Patient discharged Performed By: #### L 500.4050, L100.0100 ####[facility] [address] [place], [address] NEUT% Normal 47-70 [facility] Comment on above: Result Comment: Canc elled via OM: Order cancelled - Patient discharged Performed By: #### L 500.4050, L100.0100 ####[facility] [address] [place], [address] PLT Normal 150-450 [facility] Comment on above: Result Comment: Canc elled via OM: Order cancelled - Patient discharged Performed By: #### L 500.4050, L100.0100 ####[facility] [address] [place], [address] RBC Normal 4.2-5.4 [facility] Comment on above: Result Comment: Canc elled via OM: Order cancelled - Patient discharged Performed By: #### L 500.4050, L100.0100 ####[facility] [address] [place], [address] RDW CV Normal 11.6-14.6 [facility] Comment on above: Result Comment: Canc elled via OM: Order cancelled - Patient discharged Performed By: #### L 500.4050, L100.0100 ####[facility] [address] [place], [address] RDW SD Normal 35.1-43.9 [facility] Comment on above: Result Comment: Canc elled via OM: Order cancelled - Patient discharged Performed By: #### L 500.4050, L100.0100 ####[facility] [address] [place], [address] WBC Normal 4.4-11.0 [facility] Comment on above: Result Comment: Canc elled via OM: Order cancelled - Patient discharged Performed By: #### L 500.4050, L100.0100 ####[facility] [address] [place], [address] Comprehensive Metabolic Prof ilon 01-16-2024 ALB Normal 3.2-5.0 [facility] Comment on above: Result Comment: Canc elled via OM: Order cancelled - Patient discharged Performed By: #### L 500.4050, L100.0100 ####[facility] [address] [place], [address] ALK P Normal 45-117 [facility] Comment on above: Result Comment: Canc elled via OM: Order cancelled - Patient discharged Performed By: #### L 500.4050, L100.0100 ####[facility] [address] [place], [address] ALT Normal 13-56 [facility] Comment on above: Result Comment: Canc elled via OM: Order cancelled - Patient discharged Performed By: #### L 500.4050, L100.0100 ####[facility] [address] [place], [address] AST Normal 15-37 [facility] Comment on above: Result Comment: Canc elled via OM: Order cancelled - Patient discharged Performed By: #### L 500.4050, L100.0100 ####[facility] [address] [place], [address] BUN Normal 7-18 [facility] Comment on above: Result Comment: Canc elled via OM: Order cancelled - Patient discharged Performed By: #### L 500.4050, L100.0100 ####[facility] [address] [place], [address] BUN/CRE Normal 10-20 [facility] Comment on above: Result Comment: Canc elled via OM: Order cancelled - Patient discharged Performed By: #### L 500.4050, L100.0100 ####[facility] [address] [place], [address] CA,Total Normal 8.5-10.1 [facility] Comment on above: Result Comment: Canc elled via OM: Order cancelled - Patient discharged Performed By: #### L 500.4050, L100.0100 ####[facility] [address] [place], [address] CL Normal 98-107 [facility] Comment on above: Result Comment: Canc elled via OM: Order cancelled - Patient discharged Performed By: #### L 500.4050, L100.0100 ####[facility] [address] [place], [address] CO2 Normal 21.0-32.0 [facility] Comment on above: Result Comment: Canc elled via OM: Order cancelled - Patient discharged Performed By: #### L 500.4050, L100.0100 ####[facility] [address] [place], [address] CREAT,SERUM Normal 0.55-1.02 [facility] Comment on above: Result Comment: Canc elled via OM: Order cancelled - Patient discharged Performed By: #### L 500.4050, L100.0100 ####[facility] [address] [place], [address] EST GFR Normal >60 [facility] Comment on above: Result Comment: Canc elled via OM: Order cancelled - Patient discharged Performed By: #### L 500.4050, L100.0100 ####[facility] [address] [place], [address] EST GFR - AA Normal >60 [facility] Comment on above: Result Comment: Canc elled via OM: Order cancelled - Patient discharged Performed By: #### L 500.4050, L100.0100 ####[facility] [address] [place], [address] GAP Normal 5-15 [facility] Comment on above: Result Comment: Canc elled via OM: Order cancelled - Patient discharged Performed By: #### L 500.4050, L100.0100 ####[facility] [address] [place], [address] GLU Normal 74-106 [facility] Comment on above: Result Comment: Canc elled via OM: Order cancelled - Patient discharged Performed By: #### L 500.4050, L100.0100 ####[facility] [address] [place], [address] Potassium Normal 3.5-5.1 [facility] Comment on above: Result Comment: Canc elled via OM: Order cancelled - Patient discharged Performed By: #### L 500.4050, L100.0100 ####[facility] [address] [place], [address] T BILI Normal 0.20-1.00 [facility] Comment on above: Result Comment: Canc elled via OM: Order cancelled - Patient discharged Performed By: #### L 500.4050, L100.0100 ####[facility] [address] [place], [address] T PROT Normal 6.4-8.2 [facility] Comment on above: Result Comment: Canc elled via OM: Order cancelled - Patient discharged Performed By: #### L 500.4050, L100.0100 ####[facility] [address] [place], [address] Comprehensive Metabolic Profil Normal 136-145 [facility] Comment on above: Result Comment: Canc elled via OM: Order cancelled - Patient discharged Performed By: #### L 500.4050, L100.0100 ####[facility] [address] [place], [address] CBC W/Diff, Automatedon 11-1 Absolute Neut Normal 2.0-7.7 [facility] Comment on above: Result Comment: Canc elled via OM: Order cancelled - Patient discharged Performed By: #### L 500.4050, L100.0100 ####[facility] [address] [place], [address] HCT Normal 37-47 [facility] Comment on above: Result Comment: Canc elled via OM: Order cancelled - Patient discharged Performed By: #### L 500.4050, L100.0100 ####[facility] [address] [place], [address] HGB Normal 12.0-15.0 [facility] Comment on above: Result Comment: Canc elled via OM: Order cancelled - Patient discharged Performed By: #### L 500.4050, L100.0100 ####[facility] [address] [place], [address] MCH Normal 27.0-32.0 [facility] Comment on above: Result Comment: Canc elled via OM: Order cancelled - Patient discharged Performed By: #### L 500.4050, L100.0100 ####[facility] [address] [place], [address] MCHC Normal 32-36 [facility] Comment on above: Result Comment: Canc elled via OM: Order cancelled - Patient discharged Performed By: #### L 500.4050, L100.0100 ####[facility] [address] [place], [address] MCV Normal 81-99 [facility] Comment on above: Result Comment: Canc elled via OM: Order cancelled - Patient discharged Performed By: #### L 500.4050, L100.0100 ####[facility] [address] [place], [address] NEUT% Normal 47-70 [facility] Comment on above: Result Comment: Canc elled via OM: Order cancelled - Patient discharged Performed By: #### L 500.4050, L100.0100 ####[facility] [address] [place], [address] PLT Normal 150-450 [facility] Comment on above: Result Comment: Canc elled via OM: Order cancelled - Patient discharged Performed By: #### L 500.4050, L100.0100 ####[facility] [address] [place], [address] RBC Normal 4.2-5.4 [facility] Comment on above: Result Comment: Canc elled via OM: Order cancelled - Patient discharged Performed By: #### L 500.4050, L100.0100 ####[facility] [address] [place], [address] RDW CV Normal 11.6-14.6 [facility] Comment on above: Result Comment: Canc elled via OM: Order cancelled - Patient discharged Performed By: #### L 500.4050, L100.0100 ####[facility] [address] [place], [address] RDW SD Normal 35.1-43.9 [facility] Comment on above: Result Comment: Canc elled via OM: Order cancelled - Patient discharged Performed By: #### L 500.4050, L100.0100 ####[facility] [address] [place], [address] WBC Normal 4.4-11.0 [facility] Comment on above: Result Comment: Canc elled via OM: Order cancelled - Patient discharged Performed By: #### L 500.4050, L100.0100 ####[facility] [address] [place], [address] Comprehensive Metabolic Prof ilon 01-15-2024 ALB Normal 3.2-5.0 [facility] Comment on above: Result Comment: Canc elled via OM: Order cancelled - Patient discharged Performed By: #### L 500.4050, L100.0100 ####[facility] [address] [place], [address] ALK P Normal 45-117 [facility] Comment on above: Result Comment: Canc elled via OM: Order cancelled - Patient discharged Performed By: #### L 500.4050, L100.0100 ####[facility] [address] [place], [address] ALT Normal 13-56 [facility] Comment on above: Result Comment: Canc elled via OM: Order cancelled - Patient discharged Performed By: #### L 500.4050, L100.0100 ####[facility] [address] [place], [address] AST Normal 15-37 [facility] Comment on above: Result Comment: Canc elled via OM: Order cancelled - Patient discharged Performed By: #### L 500.4050, L100.0100 ####[facility] [address] [place], [address] BUN Normal 7-18 [facility] Comment on above: Result Comment: Canc elled via OM: Order cancelled - Patient discharged Performed By: #### L 500.4050, L100.0100 ####[facility] [address] [place], [address] BUN/CRE Normal 10-20 [facility] Comment on above: Result Comment: Canc elled via OM: Order cancelled - Patient discharged Performed By: #### L 500.4050, L100.0100 ####[facility] [address] [place], [address] CA,Total Normal 8.5-10.1 [facility] Comment on above: Result Comment: Canc elled via OM: Order cancelled - Patient discharged Performed By: #### L 500.4050, L100.0100 ####[facility] [address] [place], [address] CL Normal 98-107 [facility] Comment on above: Result Comment: Canc elled via OM: Order cancelled - Patient discharged Performed By: #### L 500.4050, L100.0100 ####[facility] [address] [place], [address] CO2 Normal 21.0-32.0 [facility] Comment on above: Result Comment: Canc elled via OM: Order cancelled - Patient discharged Performed By: #### L 500.4050, L100.0100 ####[facility] [address] [place], [address] CREAT,SERUM Normal 0.55-1.02 [facility] Comment on above: Result Comment: Canc elled via OM: Order cancelled - Patient discharged Performed By: #### L 500.4050, L100.0100 ####[facility] [address] [place], [address] EST GFR Normal >60 [facility] Comment on above: Result Comment: Canc elled via OM: Order cancelled - Patient discharged Performed By: #### L 500.4050, L100.0100 ####[facility] [address] [place], [address] EST GFR - AA Normal >60 [facility] Comment on above: Result Comment: Canc elled via OM: Order cancelled - Patient discharged Performed By: #### L 500.4050, L100.0100 ####[facility] [address] [place], [address] GAP Normal 5-15 [facility] Comment on above: Result Comment: Canc elled via OM: Order cancelled - Patient discharged Performed By: #### L 500.4050, L100.0100 ####[facility] [address] [place], [address] GLU Normal 74-106 [facility] Comment on above: Result Comment: Canc elled via OM: Order cancelled - Patient discharged Performed By: #### L 500.4050, L100.0100 ####[facility] [address] [place], [address] Potassium Normal 3.5-5.1 [facility] Comment on above: Result Comment: Canc elled via OM: Order cancelled - Patient discharged Performed By: #### L 500.4050, L100.0100 ####[facility] [address] [place], [address] T BILI Normal 0.20-1.00 [facility] Comment on above: Result Comment: Canc elled via OM: Order cancelled - Patient discharged Performed By: #### L 500.4050, L100.0100 ####[facility] [address] [place], [address] T PROT Normal 6.4-8.2 [facility] Comment on above: Result Comment: Canc elled via OM: Order cancelled - Patient discharged Performed By: #### L 500.4050, L100.0100 ####[facility] [address] [place], [address] Comprehensive Metabolic Profil Normal 136-145 [facility] Comment on above: Result Comment: Canc elled via OM: Order cancelled - Patient discharged Performed By: #### L 500.4050, L100.0100 ####[facility] [address] [place], [address] CBC W/Diff, Automatedon 11-1 0-2023 Absolute Neut Normal 2.0-7.7 [facility] Comment on above: Result Comment: Canc elled via OM: Order cancelled - Patient discharged Performed By: #### L 100.0100, L500.4050 ####[facility] [address] [place], [address] HCT Normal 37-47 [facility] Comment on above: Result Comment: Canc elled via OM: Order cancelled - Patient discharged Performed By: #### L 100.0100, L500.4050 ####[facility] [address] [place], [address] HGB Normal 12.0-15.0 [facility] Comment on above: Result Comment: Canc elled via OM: Order cancelled - Patient discharged Performed By: #### L 100.0100, L500.4050 ####[facility] [address] [place], [address] MCH Normal 27.0-32.0 [facility] Comment on above: Result Comment: Canc elled via OM: Order cancelled - Patient discharged Performed By: #### L 100.0100, L500.4050 ####[facility] [address] [place], [address] MCHC Normal 32-36 [facility] Comment on above: Result Comment: Canc elled via OM: Order cancelled - Patient discharged Performed By: #### L 100.0100, L500.4050 ####[facility] [address] [place], [address] MCV Normal 81-99 [facility] Comment on above: Result Comment: Canc elled via OM: Order cancelled - Patient discharged Performed By: #### L 100.0100, L500.4050 ####[facility] [address] [place], [address] NEUT% Normal 47-70 [facility] Comment on above: Result Comment: Canc elled via OM: Order cancelled - Patient discharged Performed By: #### L 100.0100, L500.4050 ####[facility] [address] [place], [address] PLT Normal 150-450 [facility] Comment on above: Result Comment: Canc elled via OM: Order cancelled - Patient discharged Performed By: #### L 100.0100, L500.4050 ####[facility] [address] [place], [address] RBC Normal 4.2-5.4 [facility] Comment on above: Result Comment: Canc elled via OM: Order cancelled - Patient discharged Performed By: #### L 100.0100, L500.4050 ####[facility] [address] [place], [address] RDW CV Normal 11.6-14.6 [facility] Comment on above: Result Comment: Canc elled via OM: Order cancelled - Patient discharged Performed By: #### L 100.0100, L500.4050 ####[facility] [address] [place], [address] RDW SD Normal 35.1-43.9 [facility] Comment on above: Result Comment: Canc elled via OM: Order cancelled - Patient discharged Performed By: #### L 100.0100, L500.4050 ####[facility] [address] [place], [address] WBC Normal 4.4-11.0 [facility] Comment on above: Result Comment: Canc elled via OM: Order cancelled - Patient discharged Performed By: #### L 100.0100, L500.4050 ####[facility] [address] [place], [address] Comprehensive Metabolic Prof juan carlos 01-14-2024 ALB Normal 3.2-5.0 [facility] Comment on above: Result Comment: Canc elled via OM: Order cancelled - Patient discharged Performed By: #### L 100.0100, L500.4050 ####[facility] [address] [place], [address] ALK P Normal 45-117 [facility] Comment on above: Result Comment: Canc elled via OM: Order cancelled - Patient discharged Performed By: #### L 100.0100, L500.4050 ####[facility] [address] [place], [address] ALT Normal 13-56 [facility] Comment on above: Result Comment: Canc elled via OM: Order cancelled - Patient discharged Performed By: #### L 100.0100, L500.4050 ####[facility] [address] [place], [address] AST Normal 15-37 [facility] Comment on above: Result Comment: Canc elled via OM: Order cancelled - Patient discharged Performed By: #### L 100.0100, L500.4050 ####[facility] [address] [place], [address] BUN Normal 7-18 [facility] Comment on above: Result Comment: Canc elled via OM: Order cancelled - Patient discharged Performed By: #### L 100.0100, L500.4050 ####[facility] [address] [place], [address] BUN/CRE Normal 10-20 [facility] Comment on above: Result Comment: Canc elled via OM: Order cancelled - Patient discharged Performed By: #### L 100.0100, L500.4050 ####[facility] [address] [place], [address] CA,Total Normal 8.5-10.1 [facility] Comment on above: Result Comment: Canc elled via OM: Order cancelled - Patient discharged Performed By: #### L 100.0100, L500.4050 ####[facility] [address] [place], [address] CL Normal 98-107 [facility] Comment on above: Result Comment: Canc elled via OM: Order cancelled - Patient discharged Performed By: #### L 100.0100, L500.4050 ####[facility] [address] [place], [address] CO2 Normal 21.0-32.0 [facility] Comment on above: Result Comment: Canc elled via OM: Order cancelled - Patient discharged Performed By: #### L 100.0100, L500.4050 ####[facility] [address] [place], [address] CREAT,SERUM Normal 0.55-1.02 [facility] Comment on above: Result Comment: Canc elled via OM: Order cancelled - Patient discharged Performed By: #### L 100.0100, L500.4050 ####[facility] [address] [place], [address] EST GFR Normal >60 [facility] Comment on above: Result Comment: Canc elled via OM: Order cancelled - Patient discharged Performed By: #### L 100.0100, L500.4050 ####[facility] [address] [place], [address] EST GFR - AA Normal >60 [facility] Comment on above: Result Comment: Canc elled via OM: Order cancelled - Patient discharged Performed By: #### L 100.0100, L500.4050 ####[facility] [address] [place], [address] GAP Normal 5-15 [facility] Comment on above: Result Comment: Canc elled via OM: Order cancelled - Patient discharged Performed By: #### L 100.0100, L500.4050 ####[facility] [address] [place], [address] GLU Normal 74-106 [facility] Comment on above: Result Comment: Canc elled via OM: Order cancelled - Patient discharged Performed By: #### L 100.0100, L500.4050 ####[facility] [address] [place], [address] Potassium Normal 3.5-5.1 [facility] Comment on above: Result Comment: Canc elled via OM: Order cancelled - Patient discharged Performed By: #### L 100.0100, L500.4050 ####[facility] [address] [place], [address] T BILI Normal 0.20-1.00 [facility] Comment on above: Result Comment: Canc elled via OM: Order cancelled - Patient discharged Performed By: #### L 100.0100, L500.4050 ####[facility] [address] [place], [address] T PROT Normal 6.4-8.2 [facility] Comment on above: Result Comment: Canc elled via OM: Order cancelled - Patient discharged Performed By: #### L 100.0100, L500.4050 ####[facility] [address] [place], [address] Comprehensive Metabolic Profil Normal 136-145 [facility] Comment on above: Result Comment: Canc elled via OM: Order cancelled - Patient discharged Performed By: #### L 100.0100, L500.4050 ####[facility] [address] [place], [address] Bedside Glucoseon 01-13-2024 FINGERSTICK GLU 203 mg/dL High 74-106 [facility] Comment on above: Result Comment: DILIA GEMENT OF PATIENT CARE PER NURSING PROTOCOL Performed By: #### L 501.080 ####[facility] [address] [place], [address] FINGERSTICK GLU 148 mg/dL High 74-106 [facility] Comment on above: Result Comment: DILIA GEMENT OF PATIENT CARE PER NURSING PROTOCOL Performed By: #### L 501.080 ####[facility] [address] [place], [address] CBC W/Diff, Automatedon 11-0 9-2023 Absolute Lymph 1.15 X10 3/uL Normal 0.83-4.51 [facility] Comment on above: Performed By: #### L 100.0100 ####[facility] [address] [place], [address] Absolute Neut 5.9 X10 3/uL Normal 2.0-7.7 [facility] Comment on above: Performed By: #### L 100.0100 ####[facility] [address] [place], [address] Basophils/100 WBC (Bld) 0.5 % Normal 0-1 [facility] Comment on above: Performed By: #### L 100.0100 ####[facility] [address] [place], [address] Eosinophils/100 WBC (Bld) 2.0 % Normal 0-5 [facility] Comment on above: Performed By: #### L 100.0100 ####[facility] [address] [place], [address] Erythrocyte distribution width (RBC) [Ratio] 19.1 % High 11.6-14.6 [facility] Comment on above: Performed By: #### L 100.0100 ####[facility] [address] [place], [address] Hematocrit (Bld) [Volume fraction] 27.0 % Low 37-47 [facility] Comment on above: Performed By: #### L 100.0100 ####[facility] [address] [place], [place], [address] Hemoglobin (Bld) [Mass/Vol] 8.2 g/dL Low 12.0-15.0 [facility] Comment on above: Performed By: #### L 100.0100 ####[facility] [address] [place], [address] IG% 3.400 High 0.0-0.9 [facility] Comment on above: Result Comment: IG% - Immature Granulocytes (promyelocytes, myelocytes andmetamyelocytes) > 1% indicates that a LEFT SHIFT is Present. Performed By: #### L 100.0100 ####[facility] [address] [place], [address] Lymphocytes/100 WBC (Bld) 13.5 % Low 19-41 [facility] Comment on above: Performed By: #### L 100.0100 ####[facility] [address] [place], [address] MCH (RBC) [Entitic mass] 24.1 pg Low 27.0-32.0 [facility] Comment on above: Performed By: #### L 100.0100 ####[facility] [address] [place], [address] MCHC (RBC) [Mass/Vol] 30.4 g/dL Low 32-36 [facility] Comment on above: Performed By: #### L 100.0100 ####[facility] [address] [place], [address] MCV (RBC) [Entitic vol] 79.4 fL Low 81-99 [facility] Comment on above: Performed By: #### L 100.0100 ####[facility] [address] [place], [address] Monocytes/100 WBC (Bld) 11.5 % High 0-10 [facility] Comment on above: Performed By: #### L 100.0100 ####[facility] [address] [place], [address] Neutrophils/100 WBC (Bld) 69.1 % Normal 47-70 [facility] Comment on above: Performed By: #### L 100.0100 ####[facility] [address] [place], [address] Nucleated RBC (Bld) [#/Vol] 0.2 10*3/uL Normal 0-5 [facility] Comment on above: Performed By: #### L 100.0100 ####[facility] [address] [place], [address] Platelet mean volume (Bld) [Entitic vol] 9.1 fL Normal 6.2-12.0 [facility] Comment on above: Performed By: #### L 100.0100 ####[facility] [address] [place], [address] Platelets (Bld) [#/Vol] 324 10*3/uL Normal 150-450 [facility] Comment on above: Performed By: #### L 100.0100 ####[facility] [address] [place], [address] RBC (Bld) [#/Vol] 3.40 10*6/uL Low 4.2-5.4 [facility] Comment on above: Performed By: #### L 100.0100 ####[facility] [address] [place], [address] RDW SD 54.2 fl High 35.1-43.9 [facility] Comment on above: Performed By: #### L 100.0100 ####[facility] [address] [place], [address] WBC (Bld) [#/Vol] 8.5 10*3/uL Normal 4.4-11.0 [facility] Comment on above: Performed By: #### L 100.0100 ####[facility] [address] [place], [address] Comprehensive Metabolic Prof ilon 01-13-2024 Albumin [Mass/Vol] 2.3 g/dL Low 3.2-5.0 [facility] Comment on above: Performed By: #### L 501.5200, L500.4050, L501.2300 ####[facility] [address] [place], [address] Albumin/Globulin [Mass ratio] 0.6 {ratio} Low 0.9-2.4 [facility] Comment on above: Performed By: #### L 501.5200, L500.4050, L501.2300 ####[facility] [address] [place], [address] ALK P 98 U/L Normal 45-117 [facility] Comment on above: Performed By: #### L 501.5200, L500.4050, L501.2300 ####[facility] [address] [place], [address] ALT [Catalytic activity/Vol] 20 U/L Normal 13-56 [facility] Comment on above: Performed By: #### L 501.5200, L500.4050, L501.2300 ####[facility] [address] [place], [address] AST [Catalytic activity/Vol] 21 U/L Normal 15-37 [facility] Comment on above: Performed By: #### L 501.5200, L500.4050, L501.2300 ####[facility] [address] [place], [address] Bilirubin [Mass/Vol] 0.30 mg/dL Normal 0.20-1.00 [facility] Comment on above: Result Comment: For patients on eltrombopag therapy, use of Dimension Kerrick TBIL is not recommended. Performed By: #### L 501.5200, L500.4050, L501.2300 ####[facility] [address] [place], [address] BUN/CRE 12.9 RATIO Normal 10-20 [facility] Comment on above: Performed By: #### L 501.5200, L500.4050, L501.2300 ####[facility] [address] [place], [address] CA,Total 8.4 mg/dL Low 8.5-10.1 [facility] Comment on above: Performed By: #### L 501.5200, L500.4050, L501.2300 ####[facility] [address] [place], [address] Chloride [Moles/Vol] 111 mmol/L High 98-107 [facility] Comment on above: Performed By: #### L 501.5200, L500.4050, L501.2300 ####[facility] [address] [place], [address] CO2 [Moles/Vol] 25.0 mmol/L Normal 21.0-32.0 [facility] Comment on above: Performed By: #### L 501.5200, L500.4050, L501.2300 ####[facility] [address] [place], [address] Creatinine [Mass/Vol] 0.62 mg/dL Normal 0.55-1.02 [facility] Comment on above: Result Comment: The validity of the calculated GFR GFRAA in patients over70 years has not been determined. Clinical correlation isessential. Performed By: #### L 501.5200, L500.4050, L501.2300 ####[facility] [address] [place], [address] ECRCL 93.75 ml/min Normal [facility] Comment on above: Performed By: #### L 501.5200, L500.4050, L501.2300 ####[facility] [address] [place], [address] EST GFR - AA 125 mL/min Normal >60 [facility] Comment on above: Result Comment: Afri can Nepalese GFR Calc Performed By: #### L 501.5200, L500.4050, L501.2300 ####[facility] [address] [place], [address] GAP 5 Normal 5-15 [facility] Comment on above: Performed By: #### L 501.5200, L500.4050, L501.2300 ####[facility] [address] [place], [address] GFR/1.73 sq M.predicted among non-blacks MDRD (S/P/Bld) [Vol rate/Area] 103 mL/min/{1.73_m2} Normal >60 [facility] Comment on above: Result Comment: Non- GFR Calc Performed By: #### L 501.5200, L500.4050, L501.2300 ####[facility] [address] [place], [address] Globulin (S) [Mass/Vol] 3.9 g/dL Normal 2.2-4.2 [facility] Comment on above: Performed By: #### L 501.5200, L500.4050, L501.2300 ####[facility] [address] [place], [address] Glucose [Mass/Vol] 161 mg/dL High 74-106 [facility] Comment on above: Result Comment: Fast ing Glucose result greater than or equal to 126 mg/dLsuggests DIABETES MELLITUS per A.D.A. criteria. Performed By: #### L 501.5200, L500.4050, L501.2300 ####[facility] [address] [place], [address] Potassium [Moles/Vol] 3.2 mmol/L Low 3.5-5.1 [facility] Comment on above: Performed By: #### L 501.5200, L500.4050, L501.2300 ####[facility] [address] [place], [address] Sodium [Moles/Vol] 140 mmol/L Normal 136-145 [facility] Comment on above: Performed By: #### L 501.5200, L500.4050, L501.2300 ####[facility] [address] [place], [address] T PROT 6.2 g/dL Low 6.4-8.2 [facility] Comment on above: Performed By: #### L 501.5200, L500.4050, L501.2300 ####[facility] [address] [place], [address] Urea nitrogen [Mass/Vol] 8 mg/dL Normal 7-18 [facility] Comment on above: Performed By: #### L 501.5200, L500.4050, L501.2300 ####[facility] [address] [place], [address] Discharge Instructionon 11-0 Discharge Instruction Normal [facility] Magnesiumon 01-13-2024 Magnesium [Mass/Vol] 1.8 mg/dL Normal 1.6-2.6 [facility] Comment on above: Order Comment: Comme nts: add to am labs Performed By: #### L 501.5200 ####[facility] [address] [place], [address] Magnesium [Mass/Vol] 1.8 mg/dL Normal 1.6-2.6 [facility] Comment on above: Performed By: #### L 501.5200, L500.4050, L501.2300 ####[facility] [address] [place], [address] Phosphoruson 01-13-2024 Phosphate [Mass/Vol] 2.8 mg/dL Normal 2.5-4.9 [facility] Comment on above: Performed By: #### L 501.5200, L500.4050, L501.2300 ####[facility] [address] [place], [address] 12 Lead EKGon 01-12-2024 12 Lead EKG Normal [facility] Bedside Glucoseon 01-12-2024 FINGERSTICK GLU 196 mg/dL High 74-106 [facility] Comment on above: Result Comment: DILIA GEMENT OF PATIENT CARE PER NURSING PROTOCOL Performed By: #### L 501.080 ####[facility] [address] [place], [address] FINGERSTICK GLU 156 mg/dL High 74-106 [facility] Comment on above: Result Comment: DILIA GEMENT OF PATIENT CARE PER NURSING PROTOCOL Performed By: #### L 501.080 ####[facility] [address] [place], [address] FINGERSTICK GLU 198 mg/dL High 74-106 [facility] Comment on above: Result Comment: DILIA GEMENT OF PATIENT CARE PER NURSING PROTOCOL Performed By: #### L 501.080 ####[facility] [address] [place], [address] CBC W/Diff, Automatedon - Absolute Lymph 1.19 X10 3/uL Normal 0.83-4.51 [facility] Comment on above: Performed By: #### L 100.0100 ####[facility] [address] [place], [address] Absolute Neut 7.4 X10 3/uL Normal 2.0-7.7 [facility] Comment on above: Performed By: #### L 100.0100 ####[facility] [address] [place], [address] Basophils/100 WBC (Bld) 0.5 % Normal 0-1 [facility] Comment on above: Performed By: #### L 100.0100 ####[facility] [address] [place], [address] Eosinophils/100 WBC (Bld) 0.8 % Normal 0-5 [facility] Comment on above: Performed By: #### L 100.0100 ####[facility] [address] [place], [address] Erythrocyte distribution width (RBC) [Ratio] 19.1 % High 11.6-14.6 [facility] Comment on above: Performed By: #### L 100.0100 ####[facility] [address] [place], [address] Hematocrit (Bld) [Volume fraction] 28.6 % Low 37-47 [facility] Comment on above: Performed By: #### L 100.0100 ####[facility] [address] [place], [address] Hemoglobin (Bld) [Mass/Vol] 8.4 g/dL Low 12.0-15.0 [facility] Comment on above: Performed By: #### L 100.0100 ####[facility] [address] [place], [address] IG% 2.200 High 0.0-0.9 [facility] Comment on above: Result Comment: IG% - Immature Granulocytes (promyelocytes, myelocytes andmetamyelocytes) > 1% indicates that a LEFT SHIFT is Present. Performed By: #### L 100.0100 ####[facility] [address] [place], [address] Lymphocytes/100 WBC (Bld) 11.7 % Low 19-41 [facility] Comment on above: Performed By: #### L 100.0100 ####[facility] [address] [place], [address] MCH (RBC) [Entitic mass] 23.5 pg Low 27.0-32.0 [facility] Comment on above: Performed By: #### L 100.0100 ####[facility] [address] [place], [address] MCHC (RBC) [Mass/Vol] 29.4 g/dL Low 32-36 [facility] Comment on above: Performed By: #### L 100.0100 ####[facility] [address] [place], [address] MCV (RBC) [Entitic vol] 79.9 fL Low 81-99 [facility] Comment on above: Performed By: #### L 100.0100 ####[facility] [address] [place], [address] Monocytes/100 WBC (Bld) 11.8 % High 0-10 [facility] Comment on above: Performed By: #### L 100.0100 ####[facility] [address] [place], [address] Neutrophils/100 WBC (Bld) 73.0 % High 47-70 [facility] Comment on above: Performed By: #### L 100.0100 ####[facility] [address] [place], [address] Nucleated RBC (Bld) [#/Vol] 0.2 10*3/uL Normal 0-5 [facility] Comment on above: Performed By: #### L 100.0100 ####[facility] [address] [place], [address] Platelet mean volume (Bld) [Entitic vol] 8.8 fL Normal 6.2-12.0 [facility] Comment on above: Performed By: #### L 100.0100 ####[facility] [address] [place], [address] Platelets (Bld) [#/Vol] 338 10*3/uL Normal 150-450 [facility] Comment on above: Performed By: #### L 100.0100 ####[facility] [address] [place], [address] RBC (Bld) [#/Vol] 3.58 10*6/uL Low 4.2-5.4 [facility] Comment on above: Performed By: #### L 100.0100 ####[facility] [address] [place], [address] RDW SD 53.8 fl High 35.1-43.9 [facility] Comment on above: Performed By: #### L 100.0100 ####[facility] [address] [place], [address] WBC (Bld) [#/Vol] 10.1 10*3/uL Normal 4.4-11.0 [facility] Comment on above: Performed By: #### L 100.0100 ####[facility] [address] [place], [address] Absolute Lymph 1.67 X10 3/uL Normal 0.83-4.51 [facility] Comment on above: Performed By: #### L 500.4050, L501.9520, L100.0100, L501.2300, L501.5200 ####[facility] [address] [place], [address] Absolute Neut 7.3 X10 3/uL Normal 2.0-7.7 [facility] Comment on above: Performed By: #### L 500.4050, L501.9520, L100.0100, L501.2300, L501.5200 ####[facility] [address] [place], [address] Basophils/100 WBC (Bld) 0.4 % Normal 0-1 [facility] Comment on above: Performed By: #### L 500.4050, L501.9520, L100.0100, L501.2300, L501.5200 ####[facility] [address] [place], [address] Eosinophils/100 WBC (Bld) 1.5 % Normal 0-5 [facility] Comment on above: Performed By: #### L 500.4050, L501.9520, L100.0100, L501.2300, L501.5200 ####[facility] [address] [place], [address] Erythrocyte distribution width (RBC) [Ratio] 19.0 % High 11.6-14.6 [facility] Comment on above: Performed By: #### L 500.4050, L501.9520, L100.0100, L501.2300, L501.5200 ####[facility] [address] [place], [address] Hematocrit (Bld) [Volume fraction] 25.7 % Low 37-47 [facility] Comment on above: Performed By: #### L 500.4050, L501.9520, L100.0100, L501.2300, L501.5200 ####[facility] [address] [place], [address] Hemoglobin (Bld) [Mass/Vol] 7.9 g/dL Low 12.0-15.0 [facility] Comment on above: Performed By: #### L 500.4050, L501.9520, L100.0100, L501.2300, L501.5200 ####[facility] [address] [place], [address] IG% 1.600 High 0.0-0.9 [facility] Comment on above: Result Comment: IG% - Immature Granulocytes (promyelocytes, myelocytes andmetamyelocytes) > 1% indicates that a LEFT SHIFT is Present. Performed By: #### L 500.4050, L501.9520, L100.0100, L501.2300, L501.5200 ####[facility] [address] [place], [address] Lymphocytes/100 WBC (Bld) 16.0 % Low 19-41 [facility] Comment on above: Performed By: #### L 500.4050, L501.9520, L100.0100, L501.2300, L501.5200 ####[facility] [address] [place], [address] MCH (RBC) [Entitic mass] 24.1 pg Low 27.0-32.0 [facility] Comment on above: Performed By: #### L 500.4050, L501.9520, L100.0100, L501.2300, L501.5200 ####[facility] [address] [place], [address] MCHC (RBC) [Mass/Vol] 30.7 g/dL Low 32-36 [facility] Comment on above: Performed By: #### L 500.4050, L501.9520, L100.0100, L501.2300, L501.5200 ####[facility] [address] [place], [address] MCV (RBC) [Entitic vol] 78.4 fL Low 81-99 [facility] Comment on above: Performed By: #### L 500.4050, L501.9520, L100.0100, L501.2300, L501.5200 ####[facility] [address] [place], [address] Monocytes/100 WBC (Bld) 10.8 % High 0-10 [facility] Comment on above: Performed By: #### L 500.4050, L501.9520, L100.0100, L501.2300, L501.5200 ####[facility] [address] [place], [address] Neutrophils/100 WBC (Bld) 69.7 % Normal 47-70 [facility] Comment on above: Performed By: #### L 500.4050, L501.9520, L100.0100, L501.2300, L501.5200 ####[facility] [address] [place], [address] Nucleated RBC (Bld) [#/Vol] 0 10*3/uL Normal 0-5 [facility] Comment on above: Performed By: #### L 500.4050, L501.9520, L100.0100, L501.2300, L501.5200 ####[facility] [address] [place], [address] Platelet mean volume (Bld) [Entitic vol] 9.0 fL Normal 6.2-12.0 [facility] Comment on above: Performed By: #### L 500.4050, L501.9520, L100.0100, L501.2300, L501.5200 ####[facility] [address] [place], [address] Platelets (Bld) [#/Vol] 289 10*3/uL Normal 150-450 [facility] Comment on above: Performed By: #### L 500.4050, L501.9520, L100.0100, L501.2300, L501.5200 ####[facility] [address] [place], [address] RBC (Bld) [#/Vol] 3.28 10*6/uL Low 4.2-5.4 [facility] Comment on above: Performed By: #### L 500.4050, L501.9520, L100.0100, L501.2300, L501.5200 ####[facility] [address] [place], [address] RDW SD 52.6 fl High 35.1-43.9 [facility] Comment on above: Performed By: #### L 500.4050, L501.9520, L100.0100, L501.2300, L501.5200 ####[facility] [address] [place], [address] WBC (Bld) [#/Vol] 10.5 10*3/uL Normal 4.4-11.0 [facility] Comment on above: Performed By: #### L 500.4050, L501.9520, L100.0100, L501.2300, L501.5200 ####[facility] [address] [place], [address] CVS/PCIREPORTon 01-12-2024 CVS/PCIREPORT Normal [facility] Comprehensive Metabolic Prof ilon 01-12-2024 Albumin [Mass/Vol] 2.3 g/dL Low 3.2-5.0 [facility] Comment on above: Performed By: #### L 500.4050, L501.9520, L100.0100, L501.2300, L501.5200 ####[facility] [address] [place], [address] Albumin/Globulin [Mass ratio] 0.6 {ratio} Low 0.9-2.4 [facility] Comment on above: Performed By: #### L 500.4050, L501.9520, L100.0100, L501.2300, L501.5200 ####[facility] [address] [place], [address] ALK P 90 U/L Normal 45-117 [facility] Comment on above: Performed By: #### L 500.4050, L501.9520, L100.0100, L501.2300, L501.5200 ####[facility] [address] [place], [address] ALT [Catalytic activity/Vol] 21 U/L Normal 13-56 [facility] Comment on above: Performed By: #### L 500.4050, L501.9520, L100.0100, L501.2300, L501.5200 ####[facility] [address] [place], [address] AST [Catalytic activity/Vol] 20 U/L Normal 15-37 [facility] Comment on above: Performed By: #### L 500.4050, L501.9520, L100.0100, L501.2300, L501.5200 ####[facility] [address] [place], [address] Bilirubin [Mass/Vol] 0.50 mg/dL Normal 0.20-1.00 [facility] Comment on above: Result Comment: For patients on eltrombopag therapy, use of Dimension Kerrick TBIL is not recommended. Performed By: #### L 500.4050, L501.9520, L100.0100, L501.2300, L501.5200 ####[facility] [address] [place], [address] BUN/CRE 18.1 RATIO Normal 10-20 [facility] Comment on above: Performed By: #### L 500.4050, L501.9520, L100.0100, L501.2300, L501.5200 ####[facility] [address] [place], [address] CA,Total 8.8 mg/dL Normal 8.5-10.1 [facility] Comment on above: Performed By: #### L 500.4050, L501.9520, L100.0100, L501.2300, L501.5200 ####[facility] [address] [place], [address] Chloride [Moles/Vol] 110 mmol/L High 98-107 [facility] Comment on above: Performed By: #### L 500.4050, L501.9520, L100.0100, L501.2300, L501.5200 ####[facility] [address] [place], [address] CO2 [Moles/Vol] 24.0 mmol/L Normal 21.0-32.0 [facility] Comment on above: Performed By: #### L 500.4050, L501.9520, L100.0100, L501.2300, L501.5200 ####[facility] [address] [place], [address] Creatinine [Mass/Vol] 0.55 mg/dL Normal 0.55-1.02 [facility] Comment on above: Result Comment: The validity of the calculated GFR GFRAA in patients over70 years has not been determined. Clinical correlation isessential. Performed By: #### L 500.4050, L501.9520, L100.0100, L501.2300, L501.5200 ####[facility] [address] [place], [address] ECRCL 104.22 ml/min Normal [facility] Comment on above: Performed By: #### L 500.4050, L501.9520, L100.0100, L501.2300, L501.5200 ####[facility] [address] [place], [address] EST GFR - AA 143 mL/min Normal >60 [facility] Comment on above: Result Comment: Afri can Nepalese GFR Calc Performed By: #### L 500.4050, L501.9520, L100.0100, L501.2300, L501.5200 ####[facility] [address] [place], [address] GAP 6 Normal 5-15 [facility] Comment on above: Performed By: #### L 500.4050, L501.9520, L100.0100, L501.2300, L501.5200 ####[facility] [address] [place], [address] GFR/1.73 sq M.predicted among non-blacks MDRD (S/P/Bld) [Vol rate/Area] 118 mL/min/{1.73_m2} Normal >60 [facility] Comment on above: Result Comment: Non- GFR Calc Performed By: #### L 500.4050, L501.9520, L100.0100, L501.2300, L501.5200 ####[facility] [address] [place], [address] Globulin (S) [Mass/Vol] 3.7 g/dL Normal 2.2-4.2 [facility] Comment on above: Performed By: #### L 500.4050, L501.9520, L100.0100, L501.2300, L501.5200 ####[facility] [address] [place], [address] Glucose [Mass/Vol] 167 mg/dL High 74-106 [facility] Comment on above: Result Comment: Fast ing Glucose result greater than or equal to 126 mg/dLsuggests DIABETES MELLITUS per A.D.A. criteria. Performed By: #### L 500.4050, L501.9520, L100.0100, L501.2300, L501.5200 ####[facility] [address] [place], [address] Potassium [Moles/Vol] 3.8 mmol/L Normal 3.5-5.1 [facility] Comment on above: Performed By: #### L 500.4050, L501.9520, L100.0100, L501.2300, L501.5200 ####[facility] [address] [place], [address] Sodium [Moles/Vol] 140 mmol/L Normal 136-145 [facility] Comment on above: Performed By: #### L 500.4050, L501.9520, L100.0100, L501.2300, L501.5200 ####[facility] [address] [place], [address] T PROT 6.0 g/dL Low 6.4-8.2 [facility] Comment on above: Performed By: #### L 500.4050, L501.9520, L100.0100, L501.2300, L501.5200 ####[facility] [address] [place], [address] Urea nitrogen [Mass/Vol] 10 mg/dL Normal 7-18 [facility] Comment on above: Performed By: #### L 500.4050, L501.9520, L100.0100, L501.2300, L501.5200 ####[facility] [address] [place], [address] Consultation - Cardiologyon 01-12-2024 Consultation - Cardiology Normal [facility] Ferritinon 01-12-2024 Ferritin [Mass/Vol] 290 ng/mL High 8-252 [facility] Comment on above: Order Comment: Comme nts: add to am labs'TROP' Serial specimen #1, #2 or #3: 1add to am labs Performed By: #### L 501.4020, L500.4100, L503.6550, L503.6030 ####[facility] [address] [place], [place], [id number] Iron+Iron Binding Capacityon 01-12-2024 Iron [Mass/Vol] 11 ug/dL Low 50-170 [facility] Comment on above: Order Comment: Comme nts: add to am labs'TROP' Serial specimen #1, #2 or #3: 1add to am labs Performed By: #### L 501.4020, L500.4100, L503.6550, L503.6030 ####[facility] [address] [place], [place], [id number] IRON SATURATION 6.7 Low 15.0-55.0 [facility] Comment on above: Order Comment: Comme nts: add to am labs'TROP' Serial specimen #1, #2 or #3: 1add to am labs Performed By: #### L 501.4020, L500.4100, L503.6550, L503.6030 ####[facility] [address] [place], [place], [id number] TIBC 163 ug/dL Low 250-450 [facility] Comment on above: Order Comment: Comme nts: add to am labs'TROP' Serial specimen #1, #2 or #3: 1add to am labs Performed By: #### L 501.4020, L500.4100, L503.6550, L503.6030 ####[facility] [address] [place], [place], [address] L501.4020on 01-12-2024 TROPONIN-I HS 466 pg/mL Invalid Interpretation Code 3.0-54.0 [facility] Comment on above: Order Comment: Comme nts: add to am labs'TROP' Serial specimen #1, #2 or #3: 1add to am labs Result Comment: Crit ical Result(s) Called at: 08:57:24 01/12/2024 by: García to Annalise Gore. Results read back by same. Please Note: New Test Units and Gender Specific Reference Ranges. For more information see Policy Stat Procedure Kerrick High Sensitivity Troponin (TNIH) and attachments. Performed By: #### L 501.4020, L500.4100, L503.6550, L503.6030 ####[facility] [address] [place], [address] Legionella Antigen Urineon 1 03-13-2023 LEGU URINE, RANDOM Negative Presumptive negative for Legionella pneumophila serogroup 1 antigen in urine, suggesting no recent or current infection. Legionella Ag, Urine Negative (See interpretation below) Normal [facility] Comment on above: Performed By: #### M 300.4500, M300.4600 ####[facility] [address] [place], [address] Lipid Profileon 01-12-2024 Cholesterol [Mass/Vol] 69 mg/dL Normal 200 [facility] Comment on above: Order Comment: Comme nts: add to am labs'TROP' Serial specimen #1, #2 or #3: 1add to am labs Result Comment: <200 mg/dL Desirable 200-240 mg/dL Borderline >240 mg/dL High Risk Performed By: #### L 501.4020, L500.4100, L503.6550, L503.6030 ####[facility] [address] [place], [address] Cholesterol in HDL [Mass/Vol] 25 mg/dL Low [facility] Comment on above: Order Comment: Comme nts: add to am labs'TROP' Serial specimen #1, #2 or #3: 1add to am labs Result Comment: The drugs N-Acetylcysteine and Metamizole may falselydepress this assay. Reference Range HDL <40 mg/dL Low HDL Cholesterol HDL >or= 60 mg/dL High HDL Cholesterol Performed By: #### L 501.4020, L500.4100, L503.6550, L503.6030 ####[facility] [address] [place], [address] Cholesterol in LDL [Mass/Vol] 30 mg/dL Normal 0-130 [facility] Comment on above: Order Comment: Comme nts: add to am labs'TROP' Serial specimen #1, #2 or #3: 1add to am labs Performed By: #### L 501.4020, L500.4100, L503.6550, L503.6030 ####[facility] [address], [address] Cholesterol in VLDL [Mass/Vol] 14 mg/dL Normal 5-40 [facility] Comment on above: Order Comment: Comme nts: add to am labs'TROP' Serial specimen #1, #2 or #3: 1add to am labs Performed By: #### L 501.4020, L500.4100, L503.6550, L503.6030 ####[facility] [address] [place], [address] Triglyceride [Mass/Vol] 71 mg/dL Normal [facility] Comment on above: Order Comment: [...] By: #### L 501.4020, L500.4100, L503.6550, L503.6030 ####[facility] [address] [place], [address] Magnesiumon 01-12-2024 Magnesium [Mass/Vol] 2.0 mg/dL Normal 1.6-2.6 [facility] Comment on above: Performed By: #### L 500.4050, L501.9520, L100.0100, L501.2300, L501.5200 ####[facility] [address] [place], [address] Phosphoruson 01-12-2024 Phosphate [Mass/Vol] 3.2 mg/dL Normal 2.5-4.9 [facility] Comment on above: Performed By: #### L 500.4050, L501.9520, L100.0100, L501.2300, L501.5200 ####[facility] [address] [place], [address] Stool Occult Blood iFOBon STOB Normal [facility] Comment on above: Performed By: #### M 100.7900 ####[facility] [address] [place], [address] Strep pneumoniae Antig(UR,CS F)on 01-12-2024 STPAG Normal [facility] Comment on above: Performed By: #### M 300.4500, M300.4600 ####[facility] [address] [place], [address] Thyroid Stim Hormone (TSH)on 01-12-2024 TSH 2.490 uIU/mL Normal 0.358-3.740 [facility] Comment on above: Performed By: #### L 500.4050, L501.9520, L100.0100, L501.2300, L501.5200 ####[facility] [address] [place], [address] 12 Lead EKGon 01-11-2024 12 Lead EKG Normal [facility] 12 Lead EKG Normal [facility] Basic Metabolic Profile (BMP )on 01-11-2024 BUN/CRE 13.8 RATIO Normal 10-20 [facility] Comment on above: Order Comment: 'TROP ' Serial specimen #1, #2 or #3: 1 Performed By: #### L 501.4020, L100.0100, L500.2500 ####[facility] [address] [place], [address] CA,Total 8.9 mg/dL Normal 8.5-10.1 [facility] Comment on above: Order Comment: 'TROP ' Serial specimen #1, #2 or #3: 1 Performed By: #### L 501.4020, L100.0100, L500.2500 ####[facility] [address] [place], [address] Chloride [Moles/Vol] 106 mmol/L Normal 98-107 [facility] Comment on above: Order Comment: 'TROP ' Serial specimen #1, #2 or #3: 1 Performed By: #### L 501.4020, L100.0100, L500.2500 ####[facility] [address] [place], [address] CO2 [Moles/Vol] 25.0 mmol/L Normal 21.0-32.0 [facility] Comment on above: Order Comment: 'TROP ' Serial specimen #1, #2 or #3: 1 Performed By: #### L 501.4020, L100.0100, L500.2500 ####[facility] [address] [place], [address] Creatinine [Mass/Vol] 0.65 mg/dL Normal 0.55-1.02 [facility] Comment on above: Order Comment: 'TROP ' Serial specimen #1, #2 or #3: 1 Result Comment: The validity of the calculated GFR GFRAA in patients over70 years has not been determined. Clinical correlation isessential. Performed By: #### L 501.4020, L100.0100, L500.2500 ####[facility] [address] [place], [address] ECRCL 88.73 ml/min Normal [facility] Comment on above: Order Comment: 'TROP ' Serial specimen #1, #2 or #3: 1 Performed By: #### L 501.4020, L100.0100, L500.2500 ####[facility] [address] [place], [address] EST GFR - AA 118 mL/min Normal >60 [facility] Comment on above: Order Comment: 'TROP ' Serial specimen #1, #2 or #3: 1 Result Comment: Afri can Nepalese GFR Calc Performed By: #### L 501.4020, L100.0100, L500.2500 ####[facility] [address] [place], [address] GAP 6 Normal 5-15 [facility] Comment on above: Order Comment: 'TROP ' Serial specimen #1, #2 or #3: 1 Performed By: #### L 501.4020, L100.0100, L500.2500 ####[facility] [address] [place], [address] GFR/1.73 sq M.predicted among non-blacks MDRD (S/P/Bld) [Vol rate/Area] 98 mL/min/{1.73_m2} Normal >60 [facility] Comment on above: Order Comment: 'TROP ' Serial specimen #1, #2 or #3: 1 Result Comment: Non- GFR Calc Performed By: #### L 501.4020, L100.0100, L500.2500 ####[facility] [address] [place], [address] Glucose [Mass/Vol] 165 mg/dL High 74-106 [facility] Comment on above: Order Comment: 'TROP ' Serial specimen #1, #2 or #3: 1 Result Comment: Fast ing Glucose result greater than or equal to 126 mg/dLsuggests DIABETES MELLITUS per A.D.A. criteria. Performed By: #### L 501.4020, L100.0100, L500.2500 ####[facility] [address] [place], [address] Potassium [Moles/Vol] 3.3 mmol/L Low 3.5-5.1 [facility] Comment on above: Order Comment: 'TROP ' Serial specimen #1, #2 or #3: 1 Performed By: #### L 501.4020, L100.0100, L500.2500 ####[facility] [address] [place], [address] Sodium [Moles/Vol] 138 mmol/L Normal 136-145 [facility] Comment on above: Order Comment: 'TROP ' Serial specimen #1, #2 or #3: 1 Performed By: #### L 501.4020, L100.0100, L500.2500 ####[facility] [address] [place], [address] Urea nitrogen [Mass/Vol] 9 mg/dL Normal 7-18 [facility] Comment on above: Order Comment: 'TROP ' Serial specimen #1, #2 or #3: 1 Performed By: #### L 501.4020, L100.0100, L500.2500 ####[facility] [address] [place], [address] Bedside Glucoseon 01-11-2024 FINGERSTICK GLU 155 mg/dL High 74-106 [facility] Comment on above: Result Comment: DILIA SALCEDO OF PATIENT CARE PER NURSING PROTOCOL Performed By: #### L 501.080 ####[facility] [address] [place], [address] CBC W/Diff, Automatedon 11-0 Absolute Lymph 1.46 X10 3/uL Normal 0.83-4.51 [facility] Comment on above: Performed By: #### L 501.4020, L100.0100, L500.2500 ####[facility] [address] [place], [address] Absolute Neut 9.9 X10 3/uL High 2.0-7.7 [facility] Comment on above: Performed By: #### L 501.4020, L100.0100, L500.2500 ####[facility] [address] [place], [address] Basophils/100 WBC (Bld) 0.5 % Normal 0-1 [facility] Comment on above: Performed By: #### L 501.4020, L100.0100, L500.2500 ####[facility] [address] [place], [address] Eosinophils/100 WBC (Bld) 1.1 % Normal 0-5 [facility] Comment on above: Performed By: #### L 501.4020, L100.0100, L500.2500 ####[facility] [address] [place], [address] Erythrocyte distribution width (RBC) [Ratio] 18.7 % High 11.6-14.6 [facility] Comment on above: Performed By: #### L 501.4020, L100.0100, L500.2500 ####[facility] [address] [place], [address] Hematocrit (Bld) [Volume fraction] 28.8 % Low 37-47 [facility] Comment on above: Performed By: #### L 501.4020, L100.0100, L500.2500 ####[facility] [address] [place], [address] Hemoglobin (Bld) [Mass/Vol] 8.9 g/dL Low 12.0-15.0 [facility] Comment on above: Performed By: #### L 501.4020, L100.0100, L500.2500 ####[facility] [address] [place], [address] IG% 2.900 High 0.0-0.9 [facility] Comment on above: Result Comment: IG% - Immature Granulocytes (promyelocytes, myelocytes andmetamyelocytes) > 1% indicates that a LEFT SHIFT is Present. Performed By: #### L 501.4020, L100.0100, L500.2500 ####[facility] [address] [place], [address] Lymphocytes/100 WBC (Bld) 11.1 % Low 19-41 [facility] Comment on above: Performed By: #### L 501.4020, L100.0100, L500.2500 ####[facility] [address] [place], [address] MCH (RBC) [Entitic mass] 24.3 pg Low 27.0-32.0 [facility] Comment on above: Performed By: #### L 501.4020, L100.0100, L500.2500 ####[facility] [address] [place], [address] MCHC (RBC) [Mass/Vol] 30.9 g/dL Low 32-36 [facility] Comment on above: Performed By: #### L 501.4020, L100.0100, L500.2500 ####[facility] [address] [place], [address] MCV (RBC) [Entitic vol] 78.7 fL Low 81-99 [facility] Comment on above: Performed By: #### L 501.4020, L100.0100, L500.2500 ####[facility] [address] [place], [address] Monocytes/100 WBC (Bld) 9.2 % Normal 0-10 [facility] Comment on above: Performed By: #### L 501.4020, L100.0100, L500.2500 ####[facility] [address] [place], [address] Neutrophils/100 WBC (Bld) 75.2 % High 47-70 [facility] Comment on above: Performed By: #### L 501.4020, L100.0100, L500.2500 ####[facility] [address] [place], [address] Nucleated RBC (Bld) [#/Vol] 0.2 10*3/uL Normal 0-5 [facility] Comment on above: Performed By: #### L 501.4020, L100.0100, L500.2500 ####[facility] [address] [place], [address] Platelet mean volume (Bld) [Entitic vol] 8.9 fL Normal 6.2-12.0 [facility] Comment on above: Performed By: #### L 501.4020, L100.0100, L500.2500 ####[facility] [address] [place], [address] Platelets (Bld) [#/Vol] 380 10*3/uL Normal 150-450 [facility] Comment on above: Performed By: #### L 501.4020, L100.0100, L500.2500 ####[facility] [address] [place], [address] RBC (Bld) [#/Vol] 3.66 10*6/uL Low 4.2-5.4 [facility] Comment on above: Performed By: #### L 501.4020, L100.0100, L500.2500 ####[facility] [address] [place], [address] RDW SD 52.1 fl High 35.1-43.9 [facility] Comment on above: Performed By: #### L 501.4020, L100.0100, L500.2500 ####[facility] [address] [place], [address] WBC (Bld) [#/Vol] 13.2 10*3/uL High 4.4-11.0 [facility] Comment on above: Performed By: #### L 501.4020, L100.0100, L500.2500 ####[facility] [address] [place], [address] Absolute Lymph 1.85 X10 3/uL Normal 0.83-4.51 [facility] Comment on above: Performed By: #### L 501.4020, L100.0100, L500.4050, L501.9520, L506.1000 ####[facility] [address] [place], [address] Absolute Neut 9.4 X10 3/uL High 2.0-7.7 [facility] Comment on above: Performed By: #### L 501.4020, L100.0100, L500.4050, L501.9520, L506.1000 ####[facility] [address] [place], [address] Basophils/100 WBC (Bld) 0.7 % Normal 0-1 [facility] Comment on above: Performed By: #### L 501.4020, L100.0100, L500.4050, L501.9520, L506.1000 ####[facility] [address] [place], [address] Eosinophils/100 WBC (Bld) 1.0 % Normal 0-5 [facility] Comment on above: Performed By: #### L 501.4020, L100.0100, L500.4050, L501.9520, L506.1000 ####[facility] [address] [place], [address] Erythrocyte distribution width (RBC) [Ratio] 18.7 % High 11.6-14.6 [facility] Comment on above: Performed By: #### L 501.4020, L100.0100, L500.4050, L501.9520, L506.1000 ####[facility] [address] [place], [address] Hematocrit (Bld) [Volume fraction] 31.0 % Low 37-47 [facility] Comment on above: Performed By: #### L 501.4020, L100.0100, L500.4050, L501.9520, L506.1000 ####[facility] [address] [place], [address] Hemoglobin (Bld) [Mass/Vol] 9.4 g/dL Low 12.0-15.0 [facility] Comment on above: Performed By: #### L 501.4020, L100.0100, L500.4050, L501.9520, L506.1000 ####[facility] [address] [place], [address] IG% 2.300 High 0.0-0.9 [facility] Comment on above: Result Comment: IG% - Immature Granulocytes (promyelocytes, myelocytes andmetamyelocytes) > 1% indicates that a LEFT SHIFT is Present. Performed By: #### L 501.4020, L100.0100, L500.4050, L501.9520, L506.1000 ####[facility] [address] [place], [address] Lymphocytes/100 WBC (Bld) 14.4 % Low 19-41 [facility] Comment on above: Performed By: #### L 501.4020, L100.0100, L500.4050, L501.9520, L506.1000 ####[facility] [address] [place], [address] MCH (RBC) [Entitic mass] 24.0 pg Low 27.0-32.0 [facility] Comment on above: Performed By: #### L 501.4020, L100.0100, L500.4050, L501.9520, L506.1000 ####[facility] [address] [place], [address] MCHC (RBC) [Mass/Vol] 30.3 g/dL Low 32-36 [facility] Comment on above: Performed By: #### L 501.4020, L100.0100, L500.4050, L501.9520, L506.1000 ####[facility] [address] [place], [address] MCV (RBC) [Entitic vol] 79.1 fL Low 81-99 [facility] Comment on above: Performed By: #### L 501.4020, L100.0100, L500.4050, L501.9520, L506.1000 ####[facility] [address] [place], [address] Monocytes/100 WBC (Bld) 8.6 % Normal 0-10 [facility] Comment on above: Performed By: #### L 501.4020, L100.0100, L500.4050, L501.9520, L506.1000 ####[facility] [address] [place], [address] Neutrophils/100 WBC (Bld) 73.0 % High 47-70 [facility] Comment on above: Performed By: #### L 501.4020, L100.0100, L500.4050, L501.9520, L506.1000 ####[facility] [address] [place], [address] Nucleated RBC (Bld) [#/Vol] 0 10*3/uL Normal 0-5 [facility] Comment on above: Performed By: #### L 501.4020, L100.0100, L500.4050, L501.9520, L506.1000 ####[facility] [address] [place], [address] Platelet mean volume (Bld) [Entitic vol] 9.0 fL Normal 6.2-12.0 [facility] Comment on above: Performed By: #### L 501.4020, L100.0100, L500.4050, L501.9520, L506.1000 ####[facility] [address] [place], [address] Platelets (Bld) [#/Vol] 411 10*3/uL Normal 150-450 [facility] Comment on above: Performed By: #### L 501.4020, L100.0100, L500.4050, L501.9520, L506.1000 ####[facility] [address] [place], [address] RBC (Bld) [#/Vol] 3.92 10*6/uL Low 4.2-5.4 [facility] Comment on above: Performed By: #### L 501.4020, L100.0100, L500.4050, L501.9520, L506.1000 ####[facility] [address] [place], [address] RDW SD 52.8 fl High 35.1-43.9 [facility] Comment on above: Performed By: #### L 501.4020, L100.0100, L500.4050, L501.9520, L506.1000 ####[facility] [address] [place], [address] WBC (Bld) [#/Vol] 12.9 10*3/uL High 4.4-11.0 [facility] Comment on above: Performed By: #### L 501.4020, L100.0100, L500.4050, L501.9520, L506.1000 ####[facility] [address] [place], [address] CTA Chest W/WO Contraston CTA Chest W/WO Contrast Normal [facility] Chest PA and Lateralon 01-10 Chest PA and Lateral Normal [facility] Comprehensive Metabolic Prof ilon 01-11-2024 Albumin [Mass/Vol] 3.0 g/dL Low 3.2-5.0 [facility] Comment on above: Order Comment: 1 Performed By: #### L 501.4020, L100.0100, L500.4050, L501.9520, L506.1000 ####[facility] [address] [place], [address] Albumin/Globulin [Mass ratio] 0.7 {ratio} Low 0.9-2.4 [facility] Comment on above: Order Comment: 1 Performed By: #### L 501.4020, L100.0100, L500.4050, L501.9520, L506.1000 ####[facility] [address] [place], [address] ALK P 103 U/L Normal 45-117 [facility] Comment on above: Order Comment: 1 Performed By: #### L 501.4020, L100.0100, L500.4050, L501.9520, L506.1000 ####[facility] [address] [place], [address] ALT [Catalytic activity/Vol] 21 U/L Normal 13-56 [facility] Comment on above: Order Comment: 1 Performed By: #### L 501.4020, L100.0100, L500.4050, L501.9520, L506.1000 ####[facility] [address] [place], [address] AST [Catalytic activity/Vol] 13 U/L Low 15-37 [facility] Comment on above: Order Comment: 1 Performed By: #### L 501.4020, L100.0100, L500.4050, L501.9520, L506.1000 ####[facility] [address] [place], [address] Bilirubin [Mass/Vol] 0.50 mg/dL Normal 0.20-1.00 [facility] Comment on above: Order Comment: 1 Result Comment: For patients on eltrombopag therapy, use of Dimension Kerrick TBIL is not recommended. Performed By: #### L 501.4020, L100.0100, L500.4050, L501.9520, L506.1000 ####[facility] [address] [place], [address] BUN/CRE 8.7 RATIO Low 10-20 [facility] Comment on above: Order Comment: 1 Performed By: #### L 501.4020, L100.0100, L500.4050, L501.9520, L506.1000 ####[facility] [address] [place], [address] CA,Total 9.2 mg/dL Normal 8.5-10.1 [facility] Comment on above: Order Comment: 1 Performed By: #### L 501.4020, L100.0100, L500.4050, L501.9520, L506.1000 ####[facility] [address] [place], [address] Chloride [Moles/Vol] 107 mmol/L Normal 98-107 [facility] Comment on above: Order Comment: 1 Performed By: #### L 501.4020, L100.0100, L500.4050, L501.9520, L506.1000 ####[facility] [address] [place], [address] CO2 [Moles/Vol] 25.0 mmol/L Normal 21.0-32.0 [facility] Comment on above: Order Comment: 1 Performed By: #### L 501.4020, L100.0100, L500.4050, L501.9520, L506.1000 ####[facility] [address] [place], [address] Creatinine [Mass/Vol] 0.69 mg/dL Normal 0.55-1.02 [facility] Comment on above: Order Comment: 1 Result Comment: The validity of the calculated GFR GFRAA in patients over70 years has not been determined. Clinical correlation isessential. Performed By: #### L 501.4020, L100.0100, L500.4050, L501.9520, L506.1000 ####[facility] [address] [place], [address] EST GFR - AA 110 mL/min Normal >60 [facility] Comment on above: Order Comment: 1 Result Comment: Afri can Nepales[place] GFR Calc Performed By: #### L 501.4020, L100.0100, L500.4050, L501.9520, L506.1000 ####[facility] [address] [place], [address] GAP 8 Normal 5-15 [facility] Comment on above: Order Comment: 1 Performed By: #### L 501.4020, L100.0100, L500.4050, L501.9520, L506.1000 ####[facility] [address] [place], [address] GFR/1.73 sq M.predicted among non-blacks MDRD (S/P/Bld) [Vol rate/Area] 91 mL/min/{1.73_m2} Normal >60 [facility] Comment on above: Order Comment: 1 Result Comment: Non- GFR Calc Performed By: #### L 501.4020, L100.0100, L500.4050, L501.9520, L506.1000 ####[facility] [address] [place], [address] Globulin (S) [Mass/Vol] 4.3 g/dL High 2.2-4.2 [facility] Comment on above: Order Comment: 1 Performed By: #### L 501.4020, L100.0100, L500.4050, L501.9520, L506.1000 ####[facility] [address] [place], [address] Glucose [Mass/Vol] 165 mg/dL High 74-106 [facility] Comment on above: Order Comment: 1 Result Comment: Fast ing Glucose result greater than or equal to 126 mg/dLsuggests DIABETES MELLITUS per A.D.A. criteria. Performed By: #### L 501.4020, L100.0100, L500.4050, L501.9520, L506.1000 ####[facility] [address] [place], [address] Potassium [Moles/Vol] 3.1 mmol/L Low 3.5-5.1 [facility] Comment on above: Order Comment: 1 Performed By: #### L 501.4020, L100.0100, L500.4050, L501.9520, L506.1000 ####[facility] [address] [place], [address] Sodium [Moles/Vol] 139 mmol/L Normal 136-145 [facility] Comment on above: Order Comment: 1 Performed By: #### L [id number], L100.0100, L500.4050, L501.9520, L506.1000 ####[facility] [address] [place], [address] T PROT 7.3 g/dL Normal 6.4-8.2 [facility] Comment on above: Order Comment: 1 Performed By: #### L [id number], L100.0100, L500.4050, L501.9520, L506.1000 ####[facility] [address] [place], [address] Urea nitrogen [Mass/Vol] 6 mg/dL Low 7-18 [facility] Comment on above: Order Comment: 1 Performed By: #### L [id number], L100.0100, L500.4050, L501.9520, L506.1000 ####[facility] [address] [place], [address] D-Dimer Quantitative (DVT/PE )on 01-11-2024 D-DIMER QUANT 1.58 FEU/ug/m Invalid Interpretation Code 0.27-0.49 [facility] Comment on above: Result Comment: D-Di emily ELEVATED (>0.49): Additional studies and clinicalassessments are indicated to conclude diagnosis of:Deep Vein Thrombosis (DVT) or Pulmonary Embolism (PE)RESULTS CALLED TO MARKUS 01/11/24 1827 Kathia Stone.REPORT READ BACK BY .SAME Performed By: #### L 300.8000 ####[facility] [address] [place], [address] Echo Complete W/ Contraston 01-11-2024 Echo Complete W/ Contrast Normal [facility] Emergency Department Summary on 01-11-2024 Emergency Department Summary Normal [facility] H AND P Exam - Hospitaliston 01-11-2024 H&P Exam - Hospitalist Normal [facility] L501.4020on 01-11-2024 TROPONIN-I HS 624 pg/mL Invalid Interpretation Code 3.0-54.0 [facility] Comment on above: Order Comment: 'TROP ' Serial specimen #1, #2 or #3: 2 Result Comment: Crit ical Result(s) Called at: 23:17:55 01/11/2024 by:Annalise BROWN. Results read back by same. Please Note: New Test Units and Gender Specific Reference Ranges. For more information see Policy Stat Procedure Kerrick High Sensitivity Troponin (TNIH) and attachments. Performed By: #### L 501.4020 ####[facility] [address] [place], [address] TROPONIN-I HS 581 pg/mL Invalid Interpretation Code 3.0-54.0 [facility] Comment on above: Order Comment: 'TROP ' Serial specimen #1, #2 or #3: 1 Result Comment: Crit ical Result(s) Called at: 18:32:20 01/11/2024 by: KYAW TOLEDO. Results read back by same. Please Note: New Test Units and Gender Specific Reference Ranges. For more information see Policy Stat Procedure Kerrick High Sensitivity Troponin (TNIH) and attachments. Performed By: #### L 501.4020, L100.0100, L500.2500 ####[facility] [address] [place], [address] TROPONIN-I HS 570 pg/mL Invalid Interpretation Code 3.0-54.0 [facility] Comment on above: Order Comment: 1 Result Comment: Crit ical Result(s) Called at: 16:27:33 01/11/2024 by: KYAW GRECO. Results read back by same. Please Note: New Test Units and Gender Specific Reference Ranges. For more information see Policy Stat Procedure Kerrick High Sensitivity Troponin (TNIH) and attachments. Performed By: #### L 501.4020, L100.0100, L500.4050, L501.9520, L506.1000 ####[facility] [address] [place], [address] Thyroid Stim Hormone (TSH)on 01-11-2024 TSH 2.240 uIU/mL Normal 0.358-3.740 [facility] Comment on above: Order Comment: 1 Performed By: #### L 501.4020, L100.0100, L500.4050, L501.9520, L506.1000 ####[facility] [address] [place], [address] Vitamin D,25 Hydroxyon 01-10 Vitamin D 25-OH 17.8 ng/mL Normal [facility] Comment on above: Result Comment: Magdalena min D 25(OH) Status Range Deficiency <20 ng/mL (50nmol/L) Insufficiency 20 - 30 ng/mL (50 - 75 nmol/L) Sufficiency 30 - 100 ng/mL (75 - 250 nmol/L) Toxicity >100 ng/mL (>250 nmol/L) Performed By: #### L 501.4020, L100.0100, L500.4050, L501.9520, L506.1000 ####[facility] [address] [place], [address] CBC W Auto Differential pane l (Bld)on 09-22-2023 Basophils (Bld) [#/Vol] NINF [facility] Basophils/100 WBC (Bld) 0.4 % [facility] Differential cell count method Nom (Bld) Auto [facility] Eosinophils (Bld) [#/Vol] 0.12 10*3/uL [facility] Eosinophils/100 WBC (Bld) 2.3 % [facility] Erythrocyte distribution width (RBC) [Ratio] 17.6 % High 11.5 - 15.0 % [facility] Hematocrit (Bld) [Volume fraction] 37.3 % 36.0 - 46.0 % [facility] Hemoglobin (Bld) [Mass/Vol] 11.7 g/dL 11.5 - 15.5 g/dL [facility] Immature granulocytes (Bld) [#/Vol] 0.03 10*3/uL [facility] Immature granulocytes/100 WBC (Bld) 0.6 % [facility] Interpretation and review of laboratory results Abnormal [facility] Lymphocytes (Bld) [#/Vol] 1.64 10*3/uL [facility] Lymphocytes/100 WBC (Bld) 31.2 % [facility] MCH (RBC) [Entitic mass] 25.1 pg Low 26.0 - 34.0 pg [facility] MCHC (RBC) [Mass/Vol] 31.4 g/dL 30.5 - 36.0 g/dL [facility] MCV (RBC) [Entitic vol] 80.0 fL 80.0 - 100.0 fL [facility] Monocytes (Bld) [#/Vol] 0.49 10*3/uL [facility] Monocytes/100 WBC (Bld) 9.3 % [facility] Neutrophils (Bld) [#/Vol] 2.95 10*3/uL [facility] Neutrophils/100 WBC (Bld) 56.2 % [facility] Nucleated RBC (Bld) [#/Vol] [facility] Nucleated RBC/100 WBC (Bld) [Ratio] [facility] Platelet mean volume (Bld) [Entitic vol] 9.3 fL 9.0 - 12.7 fL [facility] Platelets (Bld) [#/Vol] 260 10*3/uL [facility] RBC (Bld) [#/Vol] 4.66 10*6/uL 3.90 - 5.2 0 m/uL [facility] WBC (Bld) [#/Vol] 5.25 10*3/uL [facility] Comprehensive metabolic 2000 panelon 09-22-2023 Albumin [Mass/Vol] 4.1 g/dL 3.9 - 4.9 g/dL [facility] ALP [Catalytic activity/Vol] 73 U/L 34 - 123 U/L [facility] ALT With P-5'-P [Catalytic activity/Vol] 14 U/L 7 - 38 U/L [facility] Anion gap [Moles/Vol] 11 mmol/L 8 - 15 mmol/L [facility] AST With P-5'-P [Catalytic activity/Vol] 15 U/L 13 - 35 U/L [facility] Bilirubin [Mass/Vol] 0.2 mg/dL 0.2 - 1 .3 mg/dL [facility] Calcium [Mass/Vol] 9.2 mg/dL 8.5 - 10. 2 mg/dL [facility] Chloride [Moles/Vol] 105 mmol/L 98 - 10 7 mmol/L [facility] CO2 [Moles/Vol] 24 mmol/L 22 - 30 mmol/L [facility] Creatinine [Mass/Vol] 0.53 mg/dL Low 0.58 - 0.96 mg/dL [facility] GFR/1.73 sq M.predicted among non-blacks MDRD (S/P/Bld) [Vol rate/Area] 104 mL/min/{1.73_m2} - PINF [facility] Comment on above: Estimated Glomerular Filtration [...] 136 mg/dL High 74 - 99 mg/dL [facility] Comment on above: The [place] Diab[employer] s Association (ADA) provides guidance for [...] Standards of Medical Care in Diabetes 2016, [place] [employer]. Diabetes Care. 2016.39(Suppl 1). Interpretation and review of laboratory results Abnormal [facility] Potassium [Moles/Vol] 3.9 mmol/L 3.7 - 5.1 mmol/L [facility] Protein [Mass/Vol] 6.7 g/dL 6.3 - 8.0 g/dL [facility] Sodium [Moles/Vol] 140 mmol/L 136 - 144 mmol/L [facility] Urea nitrogen [Mass/Vol] 15 mg/dL 7 - 21 mg/dL [facility] CBC W Auto Differential pane l (Bld)on 06-16-2023 Basophils (Bld) [#/Vol] 0.03 10*3/uL <0.11 k/uL [facility] Basophils/100 WBC (Bld) 0.5 % [facility] Differential cell count method Nom (Bld) Auto [facility] Eosinophils (Bld) [#/Vol] 0.11 10*3/uL <0.46 k/uL [facility] Eosinophils/100 WBC (Bld) 1.8 % [facility] Erythrocyte distribution width (RBC) [Ratio] 20.1 % High 11.5 - 15.0 % [facility] Hematocrit (Bld) [Volume fraction] 40.9 % 36.0 - 46.0 % [facility] Hemoglobin (Bld) [Mass/Vol] 12.7 g/dL 11.5 - 15.5 g/dL [facility] Immature granulocytes (Bld) [#/Vol] <0.10 k/uL [facility] Immature granulocytes/100 WBC (Bld) 0.3 % [facility] Lymphocytes (Bld) [#/Vol] 1.83 10*3/uL 1.00 - 4.00 k/uL [facility] Lymphocytes/100 WBC (Bld) 29.9 % [facility] MCH (RBC) [Entitic mass] 25.3 pg Low 26.0 - 34.0 pg [facility] MCHC (RBC) [Mass/Vol] 31.1 g/dL 30.5 - 36.0 g/dL [facility] MCV (RBC) [Entitic vol] 81.5 fL 80.0 - 100.0 fL [facility] Monocytes (Bld) [#/Vol] 0.40 10*3/uL <0.87 k/uL [facility] Monocytes/100 WBC (Bld) 6.5 % [facility] Neutrophils (Bld) [#/Vol] 3.73 10*3/uL 1.45 - 7.50 k/uL [facility] Neutrophils/100 WBC (Bld) 61.0 % [facility] Nucleated RBC (Bld) [#/Vol] <0.01 k/uL [facility] Nucleated RBC/100 WBC (Bld) [Ratio] 0.0 /100 WBC [facility] Platelet mean volume (Bld) [Entitic vol] 10.6 fL 9.0 - 12.7 fL [facility] Platelets (Bld) [#/Vol] 244 10*3/uL 150 - 400 k/uL [facility] RBC (Bld) [#/Vol] 5.02 10*6/uL 3.90 - 5.2 0 m/uL [facility] WBC (Bld) [#/Vol] 6.12 10*3/uL 3.70 - 11. 00 k/uL [facility] Comprehensive metabolic 2000 panelon 06-16-2023 Albumin [Mass/Vol] 4.6 g/dL 3.9 - 4.9 g/dL [facility] ALP [Catalytic activity/Vol] 65 U/L 34 - 123 U/L [facility] ALT With P-5'-P [Catalytic activity/Vol] 14 U/L 7 - 38 U/L [facility] Anion gap [Moles/Vol] 10 mmol/L 9 - 18 mmol/L [facility] AST With P-5'-P [Catalytic activity/Vol] 16 U/L 13 - 35 U/L [facility] Bilirubin [Mass/Vol] 0.2 mg/dL 0.2 - 1 .3 mg/dL [facility] Calcium [Mass/Vol] 9.4 mg/dL 8.5 - 10. 2 mg/dL [facility] Chloride [Moles/Vol] 107 mmol/L High 97 - 10 5 mmol/L [facility] CO2 [Moles/Vol] 24 mmol/L 22 - 30 mmol/L [facility] Creatinine [Mass/Vol] 0.60 mg/dL 0.58 - 0.96 mg/dL [facility] Estimated Glomerular Filtration Rate 102 mL/min/1.73m >=60 mL/min/1.73m [facility] Glucose [Mass/Vol] 114 mg/dL High 74 - 99 mg/dL [facility] Potassium [Moles/Vol] 3.7 mmol/L 3.7 - 5.1 mmol/L [facility] Protein [Mass/Vol] 7.0 g/dL 6.3 - 8.0 g/dL [facility] Sodium [Moles/Vol] 141 mmol/L 136 - 144 mmol/L [facility] Urea nitrogen [Mass/Vol] 15 mg/dL 7 - 21 mg/dL [facility] CBC W Auto Differential pane l (Bld)on 01-20-2023 Basophils (Bld) [#/Vol] <0.11 k/uL [facility] Basophils/100 WBC (Bld) 0.4 % [facility] Differential cell count method Nom (Bld) Auto [facility] Eosinophils (Bld) [#/Vol] 0.10 10*3/uL <0.46 k/uL [facility] Eosinophils/100 WBC (Bld) 1.8 % [facility] Erythrocyte distribution width (RBC) [Ratio] 18.2 % High 11.5 - 15.0 % [facility] Hematocrit (Bld) [Volume fraction] 36.7 % 36.0 - 46.0 % [facility] Hemoglobin (Bld) [Mass/Vol] 11.5 g/dL 11.5 - 15.5 g/dL [facility] Immature granulocytes (Bld) [#/Vol] 0.03 10*3/uL <0.10 k/uL [facility] Immature granulocytes/100 WBC (Bld) 0.5 % [facility] Lymphocytes (Bld) [#/Vol] 1.16 10*3/uL 1.00 - 4.00 k/uL [facility] Lymphocytes/100 WBC (Bld) 21.1 % [facility] MCH (RBC) [Entitic mass] 25.1 pg Low 26.0 - 34.0 pg [facility] MCHC (RBC) [Mass/Vol] 31.3 g/dL 30.5 - 36.0 g/dL [facility] MCV (RBC) [Entitic vol] 80.1 fL 80.0 - 100.0 fL [facility] Monocytes (Bld) [#/Vol] 0.42 10*3/uL <0.87 k/uL [facility] Monocytes/100 WBC (Bld) 7.7 % [facility] Neutrophils (Bld) [#/Vol] 3.76 10*3/uL 1.45 - 7.50 k/uL [facility] Neutrophils/100 WBC (Bld) 68.5 % [facility] Nucleated RBC (Bld) [#/Vol] <0.01 k/uL [facility] Nucleated RBC/100 WBC (Bld) [Ratio] 0.0 /100 WBC [facility] Platelet mean volume (Bld) [Entitic vol] 9.5 fL 9.0 - 12.7 fL [facility] Platelets (Bld) [#/Vol] 229 10*3/uL 150 - 400 k/uL [facility] RBC (Bld) [#/Vol] 4.58 10*6/uL 3.90 - 5.2 0 m/uL [facility] WBC (Bld) [#/Vol] 5.49 10*3/uL 3.70 - 11. 00 k/uL [facility] Comprehensive metabolic 2000 panelon 01-20-2023 Albumin [Mass/Vol] 4.5 g/dL 3.9 - 4.9 g/dL [facility] ALP [Catalytic activity/Vol] 76 U/L 34 - 123 U/L [facility] ALT With P-5'-P [Catalytic activity/Vol] 17 U/L 7 - 38 U/L [facility] Anion gap [Moles/Vol] 11 mmol/L 9 - 18 mmol/L [facility] AST With P-5'-P [Catalytic activity/Vol] 17 U/L 13 - 35 U/L [facility] Bilirubin [Mass/Vol] 0.3 mg/dL 0.2 - 1 .3 mg/dL [facility] Calcium [Mass/Vol] 9.6 mg/dL 8.5 - 10. 2 mg/dL [facility] Chloride [Moles/Vol] 106 mmol/L High 97 - 10 5 mmol/L [facility] CO2 [Moles/Vol] 23 mmol/L 22 - 30 mmol/L [facility] Creatinine [Mass/Vol] 0.61 mg/dL 0.58 - 0.96 mg/dL [facility] Estimated Glomerular Filtration Rate 101 mL/min/1.73m >=60 mL/min/1.73m [facility] Glucose [Mass/Vol] 132 mg/dL High 74 - 99 mg/dL [facility] Potassium [Moles/Vol] 3.6 mmol/L Low 3.7 - 5.1 mmol/L [facility] Protein [Mass/Vol] 7.4 g/dL 6.3 - 8.0 g/dL [facility] Sodium [Moles/Vol] 140 mmol/L 136 - 144 mmol/L [facility] Urea nitrogen [Mass/Vol] 17 mg/dL 7 - 21 mg/dL [facility] No Panel InformationOrdered By: Alisa Escobar on 12-30-2022 Thyroid Stimulating Hormone (TSH) 1.73 uIU/mL 0.358-3.74 [facility] CBC W Auto Differential pane l (Bld)on 10-14-2022 Basophils (Bld) [#/Vol] 0.03 10*3/uL <0.11 k/uL [facility] Basophils/100 WBC (Bld) 0.4 % [facility] Differential cell count method Nom (Bld) Auto [facility] Eosinophils (Bld) [#/Vol] 0.20 10*3/uL <0.46 k/uL [facility] Eosinophils/100 WBC (Bld) 2.8 % [facility] Erythrocyte distribution width (RBC) [Ratio] 17.1 % High 11.5 - 15.0 % [facility] Hematocrit (Bld) [Volume fraction] 38.7 % 36.0 - 46.0 % [facility] Hemoglobin (Bld) [Mass/Vol] 12.4 g/dL 11.5 - 15.5 g/dL [facility] Immature granulocytes (Bld) [#/Vol] 0.04 10*3/uL <0.10 k/uL [facility] Immature granulocytes/100 WBC (Bld) 0.6 % [facility] Lymphocytes (Bld) [#/Vol] 2.47 10*3/uL 1.00 - 4.00 k/uL [facility] Lymphocytes/100 WBC (Bld) 34.5 % [facility] MCH (RBC) [Entitic mass] 27.0 pg 26.0 - 34.0 pg [facility] MCHC (RBC) [Mass/Vol] 32.0 g/dL 30.5 - 36.0 g/dL [facility] MCV (RBC) [Entitic vol] 84.1 fL 80.0 - 100.0 fL [facility] Monocytes (Bld) [#/Vol] 0.48 10*3/uL <0.87 k/uL [facility] Monocytes/100 WBC (Bld) 6.7 % [facility] Neutrophils (Bld) [#/Vol] 3.93 10*3/uL 1.45 - 7.50 k/uL [facility] Neutrophils/100 WBC (Bld) 55.0 % [facility] Nucleated RBC (Bld) [#/Vol] <0.01 k/uL [facility] Nucleated RBC/100 WBC (Bld) [Ratio] 0.0 /100 WBC [facility] Platelet mean volume (Bld) [Entitic vol] 11.2 fL 9.0 - 12.7 fL [facility] Platelets (Bld) [#/Vol] 231 10*3/uL 150 - 400 k/uL [facility] RBC (Bld) [#/Vol] 4.60 10*6/uL 3.90 - 5.2 0 m/uL [facility] WBC (Bld) [#/Vol] 7.15 10*3/uL 3.70 - 11. 00 k/uL [facility] Comprehensive metabolic 2000 panelon 10-14-2022 Albumin [Mass/Vol] 4.4 g/dL 3.9 - 4.9 g/dL [facility] ALP [Catalytic activity/Vol] 74 U/L 34 - 123 U/L [facility] ALT With P-5'-P [Catalytic activity/Vol] 10 U/L 7 - 38 U/L [facility] Anion gap [Moles/Vol] 12 mmol/L 9 - 18 mmol/L [facility] AST With P-5'-P [Catalytic activity/Vol] 20 U/L 13 - 35 U/L [facility] Bilirubin [Mass/Vol] 0.2 mg/dL 0.2 - 1 .3 mg/dL [facility] Calcium [Mass/Vol] 9.4 mg/dL 8.5 - 10. 2 mg/dL [facility] Chloride [Moles/Vol] 105 mmol/L 97 - 10 5 mmol/L [facility] CO2 [Moles/Vol] 24 mmol/L 22 - 30 mmol/L [facility] Creatinine [Mass/Vol] 0.62 mg/dL 0.58 - 0.96 mg/dL [facility] Estimated Glomerular Filtration Rate 101 mL/min/1.73m >=60 mL/min/1.73m [facility] Glucose [Mass/Vol] 155 mg/dL High 74 - 99 mg/dL [facility] Potassium [Moles/Vol] 3.8 mmol/L 3.7 - 5.1 mmol/L [facility] Protein [Mass/Vol] 6.7 g/dL 6.3 - 8.0 g/dL [facility] Sodium [Moles/Vol] 141 mmol/L 136 - 144 mmol/L [facility] Urea nitrogen [Mass/Vol] 23 mg/dL High 7 - 21 mg/dL [facility] ESR Westergren method (Bld) [Velocity]on 10-14-2022 ESR (Bld) [Velocity] 2 mm/h 0 - 20 mm/hr Cl [facility] Basophil percentageOrdered B y: Alisa Williamnger on 05-06-2022 Bilirubin [Mass/Vol] 0.40 mg/dL 0.20-1.00 [facility] Comment on above: For patients on eltr ombopag therapy, use of Dimension Kerrick TBIL is not recommended. Chloride [Moles/Vol] 106 mmol/L 98-107 [facility] Cholesterol [Mass/Vol] 184 mg/dL <200 [facility] Comment on above: <200 mg/dL Desirable 200-240 mg/dL Borderline >240 mg/dL High Risk Glucose [Mass/Vol] 159 mg/dL 74-106 [facility] Comment on above: Fasting Glucose resu lt greater than or equal to 126 mg/dL suggests DIABETES MELLITUS per A.D.A. criteria. Potassium [Moles/Vol] 3.5 mmol/L 3.5-5.1 [facility] Protein [Mass/Vol] 6.9 g/dL 6.4-8.2 [facility] Sodium [Moles/Vol] 142 mmol/L 136-145 [facility] Triglyceride [Mass/Vol] 95 mg/dL <199 [facility] Comment on above: The drugs N-Acetylcy steine and Metamizole may falsely depress this assay.Serum Triglycerides Reference Interval Normal <150 mg/dL Borderline high 150 - 199 mg/dL High 200 - 499 mg/dL Very High > or = 500 mg/dL Laboratory - Chemistry and C hemistry - challengeOrdered By: Alisa Escobar on 05-06-2022 ALP [Catalytic activity/Vol] 72 U/L 45-117 [facility] ALT [Catalytic activity/Vol] 21 U/L 13-56 [facility] CO2 [Moles/Vol] 29.0 mmol/L 21.0-32.0 [facility] Globulin (S) [Mass/Vol] 2.8 g/dL 2.2-4.2 W [facility] Urea nitrogen/Creatinine [Mass ratio] 28.4 mg/mg 10-20 [facility] No Panel InformationOrdered By: Alisa Escobar on 05-06-2022 Estimated GFR (MDRD) Amer 108 mL/min >60 [facility] Comment on above: GFR Calc Estimated GFR (MDRD) Non-Af Amer 90 mL/min >60 [facility] Comment on above: Non- GFR Calc Thyroid Stimulating Hormone (TSH) 3.72 uIU/mL 0.358-3.74 [facility] Serum or plasma albumin aminta urement (mass/volume)Ordered By: Alisa Escobar on 05-06-2022 Albumin [Mass/Vol] 4.1 g/dL 3.2-5.0 [facility] Serum or plasma albumin/glob ulin mass ratioOrdered By: Alisa Escobar on 05-06-2022 Albumin/Globulin [Mass ratio] 1.5 {ratio} 0.9-2.4 [facility] Serum or plasma calcium aminta urement (mass/volume)Ordered By: Alisa Escobar on 05-06-2022 Calcium [Mass/Vol] 9.0 mg/dL 8.5-10.1 [facility] Serum or plasma cholesterol in HDL measurement (mass/volume)Ordered By: Alisa Escobar on 05-06-2022 Cholesterol in HDL [Mass/Vol] 50 mg/dL >40 [facility] Comment on above: The drugs N-Acetylcy steine and Metamizole may falsely depress this assay. Reference Range HDL <40 mg/dL Low HDL Cholesterol HDL >or= 60 mg/dL High HDL Cholesterol Serum or plasma cholesterol in VLDL measurement (mass/volume)Ordered By: Alisa Escobar on 05-06-2022 Cholesterol in VLDL [Mass/Vol] 19 mg/dL 5-40 [facility] Serum or plasma creatinine m easurement (mass/volume)Ordered By: Alisa Escobar on 05-06-2022 Creatinine [Mass/Vol] 0.70 mg/dL 0.55-1.02 [facility] Comment on above: The validity of the calculated GFR & GFRAA in patients over 70 years has not been determined. Clinical correlation is essential. Serum or plasma low density lipoprotein (LDL) cholesterol measurement (mass/volume)Ordered By: Alisa Escobar on 05-06-2022 Cholesterol in LDL [Mass/Vol] 115 mg/dL 0-130 [facility] Serum or plasma urea nitroge n measurement (mass/volume)Ordered By: Alisa Escobar on 05-06-2022 Urea nitrogen [Mass/Vol] 20 mg/dL 7-18 [facility] Thin prep Papanicolaou smear with manual screeningOrdered By: Alisa Escobar on 05-06-2022 Thin prep Papanicolaou smear with manual screening 17 U/L 15-37 [facility] Thin prep Papanicolaou smear with manual screening 7 5-15 [facility] Thin prep Papanicolaou smear with manual screening 20.2 mg/L NO RANGE EST. [facility] Whole blood hemoglobin A1c/t otal hemoglobin ratio (mass fraction)Ordered By: Alisa Escobar on 05-06-2022 HbA1c (Bld) [Mass fraction] 6.4 % 3.8-5.6 [facility] Comment on above: Normal < 5.7 % Predi abetic 5.7 - 6.4 % Diabetic >or= 6.5 % Please note range changes. CBC panel Auto (Bld)on 03-31 Erythrocyte distribution width (RBC) [Ratio] 18.4 % High 11.5 - 15.0 % [facility] Hematocrit (Bld) [Volume fraction] 37.9 % 36.0 - 46.0 % [facility] Hemoglobin (Bld) [Mass/Vol] 12.1 g/dL 11.5 - 15.5 g/dL [facility] MCH (RBC) [Entitic mass] 26.9 pg 26.0 - 34.0 pg [facility] MCHC (RBC) [Mass/Vol] 31.9 g/dL 30.5 - 36.0 g/dL [facility] MCV (RBC) [Entitic vol] 84.2 fL 80.0 - 100.0 fL [facility] Nucleated RBC (Bld) [#/Vol] <0.01 k/uL [facility] Platelet mean volume (Bld) [Entitic vol] 11.8 fL 9.0 - 12.7 fL [facility] Platelets (Bld) [#/Vol] 192 10*3/uL 150 - 400 k/uL [facility] RBC (Bld) [#/Vol] 4.50 10*6/uL 3.90 - 5.2 0 m/uL [facility] WBC (Bld) [#/Vol] 4.63 10*3/uL 3.70 - 11. 00 k/uL [facility] Comprehensive metabolic 2000 panelon 03-31-2022 Albumin [Mass/Vol] 4.3 g/dL 3.9 - 4.9 g/dL [facility] ALP [Catalytic activity/Vol] 80 U/L 34 - 123 U/L [facility] ALT With P-5'-P [Catalytic activity/Vol] 18 U/L 7 - 38 U/L [facility] Anion gap [Moles/Vol] 10 mmol/L 9 - 18 mmol/L [facility] AST With P-5'-P [Catalytic activity/Vol] 21 U/L 13 - 35 U/L [facility] Bilirubin [Mass/Vol] 0.3 mg/dL 0.2 - 1 .3 mg/dL [facility] Calcium [Mass/Vol] 9.1 mg/dL 8.5 - 10. 2 mg/dL [facility] Chloride [Moles/Vol] 106 mmol/L High 97 - 10 5 mmol/L [facility] CO2 [Moles/Vol] 25 mmol/L 22 - 30 mmol/L [facility] Creatinine [Mass/Vol] 0.61 mg/dL 0.58 - 0.96 mg/dL [facility] Estimated Glomerular Filtration Rate 102 mL/min/1.73m >=60 mL/min/1.73m [facility] Glucose [Mass/Vol] 222 mg/dL High 74 - 99 mg/dL [facility] Potassium [Moles/Vol] 3.5 mmol/L Low 3.7 - 5.1 mmol/L [facility] Protein [Mass/Vol] 6.6 g/dL 6.3 - 8.0 g/dL [facility] Sodium [Moles/Vol] 141 mmol/L 136 - 144 mmol/L [facility] Urea nitrogen [Mass/Vol] 10 mg/dL 7 - 21 mg/dL [facility] DXA-AXIAL SKELETONon 023 [facility] CBC panel Auto (Bld)on 11-19 Erythrocyte distribution width (RBC) [Ratio] 17.4 % High 11.5 - 15.0 % [facility] Hematocrit (Bld) [Volume fraction] 38.6 % 36.0 - 46.0 % [facility] Hemoglobin (Bld) [Mass/Vol] 12.3 g/dL 11.5 - 15.5 g/dL [facility] MCH (RBC) [Entitic mass] 26.3 pg 26.0 - 34.0 pg [facility] MCHC (RBC) [Mass/Vol] 31.9 g/dL 30.5 - 36.0 g/dL [facility] MCV (RBC) [Entitic vol] 82.5 fL 80.0 - 100.0 fL [facility] Nucleated RBC (Bld) [#/Vol] <0.01 k/uL [facility] Platelet mean volume (Bld) [Entitic vol] 10.7 fL 9.0 - 12.7 fL [facility] Platelets (Bld) [#/Vol] 219 10*3/uL 150 - 400 k/uL [facility] RBC (Bld) [#/Vol] 4.68 10*6/uL 3.90 - 5.2 0 m/uL [facility] WBC (Bld) [#/Vol] 4.99 10*3/uL 3.70 - 11. 00 k/uL [facility] Comprehensive metabolic 2000 panelon 11-19-2021 Albumin [Mass/Vol] 4.6 g/dL 3.9 - 4.9 g/dL [facility] ALP [Catalytic activity/Vol] 61 U/L 34 - 123 U/L [facility] ALT With P-5'-P [Catalytic activity/Vol] 25 U/L 7 - 38 U/L [facility] Anion gap [Moles/Vol] 12 mmol/L 9 - 18 mmol/L [facility] AST With P-5'-P [Catalytic activity/Vol] 22 U/L 13 - 35 U/L [facility] Bilirubin [Mass/Vol] 0.4 mg/dL 0.2 - 1 .3 mg/dL [facility] Calcium [Mass/Vol] 8.9 mg/dL 8.5 - 10. 2 mg/dL [facility] Chloride [Moles/Vol] 105 mmol/L 97 - 10 5 mmol/L [facility] CO2 [Moles/Vol] 24 mmol/L 22 - 30 mmol/L [facility] Creatinine [Mass/Vol] 0.58 mg/dL 0.58 - 0.96 mg/dL [facility] Estimated Glomerular Filtration Rate 103 mL/min/1.73m >=60 mL/min/1.73m [facility] Glucose [Mass/Vol] 139 mg/dL High 74 - 99 mg/dL [facility] Potassium [Moles/Vol] 3.7 mmol/L 3.7 - 5.1 mmol/L [facility] Protein [Mass/Vol] 6.7 g/dL 6.3 - 8.0 g/dL [facility] Sodium [Moles/Vol] 141 mmol/L 136 - 144 mmol/L [facility] Urea nitrogen [Mass/Vol] 14 mg/dL 7 - 21 mg/dL [facility] CBC W Auto Differential pane l (Bld)on 09-16-2021 Basophils (Bld) [#/Vol] 0.03 10*3/uL Normal <0.11 [facility] Comment on above: Order Comment: Speci men Type: BLOOD SPECIMEN Ordering Facility: [facility] Address: [address] [place] [address] Performed By: #### 5 7021-8 #### [facility] CLIA [id number] [address] [place] [address] [place] [facility] Basophils/100 WBC (Bld) 0.5 % [facility] above: Order Comment: Speci men Type: BLOOD SPECIMEN Ordering Facility: [facility] Address: [address] [place] [address] Performed By: #### 5 7021-8 #### [facility] CLIA [id number] [address] [place] [address] [place] Differential cell count method Nom (Bld) Auto Normal [facility] Comment on above: Order Comment: Speci men Type: BLOOD SPECIMEN Ordering Facility: [facility] Address: [address] [place] [address] Performed By: #### 5 7021-8 #### [facility] CLIA [id number] [address] [place] [address] [place] Eosinophils (Bld) [#/Vol] 0.20 10*3/uL Normal <0.46 [facility] Comment on above: Order Comment: Speci men Type: BLOOD SPECIMEN Ordering Facility: [facility] Address: [address] [place] [address] Performed By: #### 5 7021-8 #### [facility] CLIA [id number] [address] [place] [address] [place] Eosinophils/100 WBC (Bld) 3.0 % Normal [facility] Comment on above: Order Comment: Speci men Type: BLOOD SPECIMEN Ordering Facility: [facility] Address: [address] [place] [address] Performed By: #### 5 7021-8 #### [facility] CLIA [id number] [address] [place] [address] [place] Erythrocyte distribution width (RBC) [Ratio] 18.0 % High 11.5-15.0 [facility] Comment on above: Order Comment: Speci men Type: BLOOD SPECIMEN Ordering Facility: [facility] Address: [address] [place], [place] [address] Performed By: #### 5 7021-8 #### [facility] CLIA [id number] [address] [place] [address] [place] Hematocrit (Bld) [Volume fraction] 40.2 % Normal 36.0-46.0 [facility] Comment on above: Order Comment: Speci men Type: BLOOD SPECIMEN Ordering Facility: [facility] Address: [address] [place], [place] [address] Performed By: #### 5 7021-8 #### [facility] CLIA [id number] [address] [place] [address] [place] Hemoglobin (Bld) [Mass/Vol] 12.8 g/dL Normal 11.5-15.5 [facility] Comment on above: Order Comment: Speci men Type: BLOOD SPECIMEN Ordering Facility: [facility] Address: [address] [place] [address] Performed By: #### 5 7021-8 #### [facility] CLIA [id number] [address] [place] [address] [place] IMMATURE GRAN % 0.5 % Normal [facility] Comment on above: Order Comment: Speci men Type: BLOOD SPECIMEN Ordering Facility: [facility] Address: [address] [place], [place] [address] Performed By: #### 5 7021-8 #### [facility] CLIA [id number] [address] [place] [address] [place] IMMATURE GRAN ABS 0.03 k/uL Normal <0.10 [facility] Comment on above: Order Comment: Speci men Type: BLOOD SPECIMEN Ordering Facility: [facility] Address: [address] [place], [place] [address] Performed By: #### 5 7021-8 #### [facility] CLIA [id number] [address] [place] [address] [place] Lymphocytes (Bld) [#/Vol] 2.34 10*3/uL Normal 1.00-4.00 [facility] Comment on above: Order Comment: Speci men Type: BLOOD SPECIMEN Ordering Facility: [facility] Address: [address] [place], [place] [address] Performed By: #### 5 7021-8 #### [facility] CLIA [id number] [address] [place] [address] [place] Lymphocytes/100 WBC (Bld) 35.6 % Normal [facility] Comment on above: Order Comment: Speci men Type: BLOOD SPECIMEN Ordering Facility: [facility] Address: [address] [place], [place] [address] Performed By: #### 5 7021-8 #### [facility] CLIA [id number] [address] [place] [address] [place] MCH (RBC) [Entitic mass] 26.1 pg Normal 26.0-34.0 [facility] Comment on above: Order Comment: Speci men Type: BLOOD SPECIMEN Ordering Facility: [facility] Address: [address] [place], [place] [address] Performed By: #### 5 7021-8 #### [facility] CLIA [id number] [address] [place] [address] [place] MCHC (RBC) [Mass/Vol] 31.8 g/dL Normal 30.5-36.0 [facility] Comment on above: Order Comment: Speci men Type: BLOOD SPECIMEN Ordering Facility: [facility] Address: [address] [place], [place] [address] Performed By: #### 5 7021-8 #### [facility] CLIA [id number] [address] [place] [address] [place] MCV (RBC) [Entitic vol] 82.0 fL Normal 80.0-100.0 C [facility] Comment on above: Order Comment: Speci men Type: BLOOD SPECIMEN Ordering Facility: [facility] Address: [address] [place], [place] [address] Performed By: #### 5 7021-8 #### [facility] CLIA [id number] [address] [place] [address] [place] Monocytes (Bld) [#/Vol] 0.54 10*3/uL Normal <0.87 [facility] Comment on above: Order Comment: Speci men Type: BLOOD SPECIMEN Ordering Facility: [facility] Address: [address] [place] [address] Performed By: #### 5 7021-8 #### [facility] CLIA [id number] [address] [place] [address] [place] Monocytes/100 WBC (Bld) 8.2 % Normal [facility] Comment on above: Order Comment: Speci men Type: BLOOD SPECIMEN Ordering Facility: [facility] Address: [address] [place] [address] Performed By: #### 5 7021-8 #### [facility] CLIA [id number] [address] [place] [address] [place] Neutrophils (Bld) [#/Vol] 3.43 10*3/uL Normal 1.45-7.50 [facility] Comment on above: Order Comment: Speci men Type: BLOOD SPECIMEN Ordering Facility: [facility] Address: [address] [place], [place] [address] Performed By: #### 5 7021-8 #### [facility] CLIA [id number] [address] [place] [address] [place] Neutrophils/100 WBC (Bld) 52.2 % Normal [facility] Comment on above: Order Comment: Speci men Type: BLOOD SPECIMEN Ordering Facility: [facility] Address: [address] [place], [place] [address] Performed By: #### 5 7021-8 #### [facility] CLIA [id number] [address] [place] [address] [place] Nucleated RBC (Bld) [#/Vol] 10*3/uL Normal <0.01 [facility] Comment on above: Order Comment: Speci men Type: BLOOD SPECIMEN Ordering Facility: [facility] Address: [address] [place], [place] [address] Performed By: #### 5 7021-8 #### [facility] CLIA [id number] [address] [place] [address] [place] Nucleated RBC/100 WBC (Bld) [Ratio] 0.0 /100 WBC Normal [facility] Comment on above: Order Comment: Speci men Type: BLOOD SPECIMEN Ordering Facility: [facility] Address: [address] [place], [place] [address] Performed By: #### 5 7021-8 #### [facility] CLIA [id number] [address] [place] [address] [place] Platelet mean volume (Bld) [Entitic vol] 10.7 fL Normal 9.0-12.7 [facility] Comment on above: Order Comment: Speci men Type: BLOOD SPECIMEN Ordering Facility: [facility] Address: [address] [place], [place] [address] Performed By: #### 5 7021-8 #### [facility] CLIA [id number] [address] [place] [address] [place] Platelets (Bld) [#/Vol] 243 10*3/uL Normal 150-400 [facility] Comment on above: Order Comment: Speci men Type: BLOOD SPECIMEN Ordering Facility: [facility] Address: [address] [place] [address] Performed By: #### 5 7021-8 #### [facility] CLIA [id number] [address] [place] [address] [place] RBC (Bld) [#/Vol] 4.90 10*6/uL Normal 3.90-5.20 [facility] Comment on above: Order Comment: Speci men Type: BLOOD SPECIMEN Ordering Facility: [facility] Address: [address] [place] [address] Performed By: #### 5 7021-8 #### [facility] CLIA [id number] [address] [place] [address] [place] WBC (Bld) [#/Vol] 6.57 10*3/uL Normal 3.70-11.00 [facility] Comment on above: Order Comment: Speci men Type: BLOOD SPECIMEN Ordering Facility: [facility] Address: [address] [place] [address] Performed By: #### 5 7021-8 #### [facility] CLIA [id number] [address] [place] [address] [place] Vital Signs Date Time Vital Sign Value Performing Clinician Facility 11-08-2024 14:23-0400 Diastolic blood pressure 77 mm[Hg] Chair Truro Work Phone: [facility] 11-08-2024 14:23-0400 Heart rate 68 /min Chair Truro Work Phone: [facility] 11-08-2024 14:23-0400 Respiratory rate 18 /min Chair Truro Work Phone: [facility] 11-08-2024 14:23-0400 Systolic blood pressure 124 mm[Hg] Chair Truro Work Phone: [facility] 11-08-2024 13:23-0400 Body temperature 97.5 [degF] Chair Truro Work Phone: [facility] 11-08-2024 13:23-0400 SaO2% (BldA) [Mass fraction] 97 % Chair Truro Work Phone: [facility] 11-08-2024 13:02-0400 Body mass index (BMI) [Ratio] 36.99 kg/m2 Chair Truro Work Phone: [facility] 11-08-2024 13:02-0400 Body weight 88.8 kg Chair Truro Work Phone: [facility] 10-29-2024 07:03-0400 Body height 157.48 cm Paul Greco MD Work Phone: [facility] 10-29-2024 07:03-0400 Body mass index (BMI) [Ratio] 35.6 kg/m2 Paul Greco MD Work Phone: [facility] 10-29-2024 07:03-0400 Body weight 88.45 kg Paul Greco MD Work Phone: [facility] 10-29-2024 07:03-0400 Diastolic blood pressure 87 mm[Hg] Paul Greco MD Work Phone: [facility] 10-29-2024 07:03-0400 Heart rate 70 /min Paul Greco MD Work Phone: [facility] 10-29-2024 07:03-0400 Respiratory rate 18 /min Paul Greco MD Work Phone: [facility] 10-29-2024 07:03-0400 SaO2% (BldA) [Mass fraction] 92 % Paul Greco MD Work Phone: [facility] 10-29-2024 07:03-0400 Systolic blood pressure 133 mm[Hg] Paul Greco MD Work Phone: [facility] 09-27-2024 13:25-0400 Body mass index (BMI) [Ratio] 36.62 kg/m2 [facility] 09-27-2024 13:25-0400 Body weight 87.9 kg [facility] 09-27-2024 13:25-0400 Respiratory rate 18 /min [facility] 08-09-2024 15:07-0400 Diastolic blood pressure 83 mm[Hg] [facility] 08-09-2024 15:07-0400 Heart rate 68 /min [facility] 08-09-2024 15:07-0400 Systolic blood pressure 134 mm[Hg] [facility] 08-09-2024 14:29-0400 Respiratory rate 18 /min [facility] 08-09-2024 13:29-0400 Body mass index (BMI) [Ratio] 35.49 kg/m2 [facility] 08-09-2024 13:29-0400 Body temperature 97.59 [degF] [facility] 08-09-2024 13:29-0400 Body weight 85.2 kg [facility] 08-09-2024 13:29-0400 SaO2% (BldA) [Mass fraction] 99 % [facility] 07-30-2024 06:42-0400 Body mass index (BMI) [Ratio] 34.2 kg/m2 Paul Greco MD Work Phone: [facility] 07-30-2024 06:42-0400 Body weight 84.82 kg Paul Greco MD Work Phone: [facility] 07-30-2024 06:42-0400 Diastolic blood pressure 84 mm[Hg] Paul Greco MD Work Phone: [facility] 07-30-2024 06:42-0400 Heart rate 74 /min Paul Greco MD Work Phone: [facility] 07-30-2024 06:42-0400 Respiratory rate 18 /min Paul Greco MD Work Phone: [facility] 07-30-2024 06:42-0400 SaO2% (BldA) [Mass fraction] 95 % Paul Greco MD Work Phone: [facility] 07-30-2024 06:42-0400 Systolic blood pressure 125 mm[Hg] Paul Greco MD Work Phone: [facility] 07-25-2024 22:24-0400 Body temperature 97.8 [degF] Paul Greco MD Work Phone: [facility] 07-25-2024 22:24-0400 Diastolic blood pressure 66 mm[Hg] Paul Greco MD Work Phone: [facility] 07-25-2024 22:24-0400 Heart rate 99 /min Paul Greco MD Work Phone: [facility] 07-25-2024 22:24-0400 Respiratory rate 18 /min Paul Greco MD Work Phone: [facility] 07-25-2024 22:24-0400 SaO2% (BldA) [Mass fraction] 99 % Paul Greco MD Work Phone: [facility] 07-25-2024 22:24-0400 Systolic blood pressure 132 mm[Hg] Paul Greco MD Work Phone: [facility] 07-25-2024 19:03-0400 Body height 157.48 cm Paul Greco MD Work Phone: 2(463)[phone] [place] [address] 07-25-2024 19:03-0400 Body mass index (BMI) [Ratio] 34.7 kg/m2 Paul Greco MD Work Phone: [phone])[phone] [place] [address] 07-25-2024 19:03-0400 Body weight 86.2 kg Paul Greco MD Work Phone: [facility] 07-03-2024 22:13-0400 Body temperature 98.3 [degF] Paul Greco MD Work Phone: [facility] 07-03-2024 22:13-0400 Diastolic blood pressure 65 mm[Hg] Paul Greco MD Work Phone: 2(882)[phone] [place] [address] 07-03-2024 22:13-0400 Heart rate 70 /min Paul Greco MD Work Phone: [facility] 07-03-2024 22:13-0400 Respiratory rate 18 /min Paul Greco MD Work Phone: [facility] 07-03-2024 22:13-0400 SaO2% (BldA) [Mass fraction] 100 % Paul Greco MD Work Phone: [facility] 07-03-2024 22:13-0400 Systolic blood pressure 142 mm[Hg] Paul Greco MD Work Phone: [facility] 07-03-2024 18:10-0400 Body mass index (BMI) [Ratio] 34.9 kg/m2 Paul Greco MD Work Phone: [facility] 07-03-2024 18:10-0400 Body weight 86.7 kg Paul Greco MD Work Phone: [facility] 06-14-2024 14:27-0400 Body height 154.9 cm Robert Farias MD Work Phone: [facility] 06-14-2024 14:27-0400 Body mass index (BMI) [Ratio] 34.12 kg/m2 Robert Farias MD Work Phone: [facility] 06-14-2024 14:27-0400 Body temperature 98.2 [degF] Robert Farias MD Work Phone: [facility] 06-14-2024 14:27-0400 Body weight 81.92 kg Robert Farias MD Work Phone: [facility] 06-14-2024 14:27-0400 Diastolic blood pressure 85 mm[Hg] Robert Farias MD Work Phone: [facility] 06-14-2024 14:27-0400 Heart rate 84 /min Robert Farias MD Work Phone: [facility] 06-14-2024 14:27-0400 Systolic blood pressure 139 mm[Hg] Robert Farias MD Work Phone: [facility] 06-03-2024 11:40-0400 Diastolic blood pressure 71 mm[Hg] [facility] 06-03-2024 11:40-0400 Heart rate 76 /min [facility] 06-03-2024 11:40-0400 SaO2% (BldA) [Mass fraction] 98 % [facility] Comment on above: 06-03-2024 11:40-0400 Systolic blood pressure 119 mm[Hg] [facility] 06-03-2024 11:32-0400 Body mass index (BMI) [Ratio] 33.99 kg/m2 [facility] 06-03-2024 11:32-0400 Body weight 81.6 kg [facility] 06-03-2024 11:32-0400 Respiratory rate 18 /min [facility] 05-31-2024 07:57-0400 Body mass index (BMI) [Ratio] 32.1 kg/m2 Paul Greco MD Work Phone: [facility] 05-31-2024 07:57-0400 Body weight 79.83 kg Paul Greco MD Work Phone: [facility] 05-31-2024 07:57-0400 Diastolic blood pressure 77 mm[Hg] Paul Greco MD Work Phone: [facility] 05-31-2024 07:57-0400 Heart rate 81 /min Paul Greco MD Work Phone: [facility] 05-31-2024 07:57-0400 Respiratory rate 18 /min Paul Greco MD Work Phone: [facility] 05-31-2024 07:57-0400 SaO2% (BldA) [Mass fraction] 97 % Paul Greco MD Work Phone: [facility] 05-31-2024 07:57-0400 Systolic blood pressure 110 mm[Hg] Paul Greco MD Work Phone: [facility] 05-27-2024 15:41-0400 Heart rate 86 /min Paul Greco MD Work Phone: [facility] 05-27-2024 10:00-0400 Body temperature 97.9 [degF] Paul Greco MD Work Phone: [facility] 05-27-2024 10:00-0400 Diastolic blood pressure 80 mm[Hg] Paul Greco MD Work Phone: [facility] 05-27-2024 10:00-0400 Respiratory rate 16 /min Paul Greco MD Work Phone: [facility] 05-27-2024 10:00-0400 SaO2% (BldA) [Mass fraction] 95 % Paul Greco MD Work Phone: [facility] 05-27-2024 10:00-0400 Systolic blood pressure 139 mm[Hg] Paul Greco MD Work Phone: [facility] 05-27-2024 04:13-0400 Body mass index (BMI) [Ratio] 32.5 kg/m2 Paul Greco MD Work Phone: [facility] 05-27-2024 04:13-0400 Body weight 80.64 kg Paul Greco MD Work Phone: [phone] [place] [address] 05-27-2024 02:30-0400 Body height 157.48 cm Paul Greco MD Work Phone: [facility] 04-15-2024 13:10-0500 Body temperature 97.7 [degF] Paul Greco MD Work Phone: [facility] 04-15-2024 13:10-0500 Diastolic blood pressure 68 mm[Hg] Paul Greco MD Work Phone: [facility] 04-15-2024 13:10-0500 Heart rate 84 /min Paul Greco MD Work Phone: [facility] 04-15-2024 13:10-0500 Respiratory rate 14 /min Paul Greco MD Work Phone: [facility] 04-15-2024 13:10-0500 SaO2% (BldA) [Mass fraction] 100 % Paul Greco MD Work Phone: [facility] 04-15-2024 13:10-0500 Systolic blood pressure 104 mm[Hg] Paul Greco MD Work Phone: [facility] 04-15-2024 11:04-0500 Body height 157.48 cm Paul Greco MD Work Phone: [facility] 04-15-2024 11:04-0500 Body mass index (BMI) [Ratio] 30.6 kg/m2 Paul Greco MD Work Phone: [facility] 04-15-2024 11:04-0500 Body weight 76 kg Paul Greco MD Work Phone: [facility] 04-11-2024 10:15-0500 Body mass index (BMI) [Ratio] 32.66 kg/m2 [facility] 04-11-2024 10:15-0500 Body temperature 96.8 [degF] [facility] 04-11-2024 10:15-0500 Body weight 78.4 kg [facility] 04-11-2024 10:15-0500 Diastolic blood pressure 81 mm[Hg] [facility] 04-11-2024 10:15-0500 Heart rate 85 /min [facility] 04-11-2024 10:15-0500 Respiratory rate 18 /min [facility] 04-11-2024 10:15-0500 SaO2% (BldA) [Mass fraction] 98 % [facility] 04-11-2024 10:15-0500 Systolic blood pressure 160 mm[Hg] [facility] 03-11-2024 04:26-0500 Body temperature 98 [degF] Paul Greco MD Work Phone: [facility] 03-11-2024 04:26-0500 Diastolic blood pressure 73 mm[Hg] Paul Greco MD Work Phone: [facility] 03-11-2024 04:26-0500 Heart rate 98 /min Paul Greco MD Work Phone: [facility] 03-11-2024 04:26-0500 Respiratory rate 17 /min Paul Greco MD Work Phone: [facility] 03-11-2024 04:26-0500 SaO2% (BldA) [Mass fraction] 93 % Paul Greco MD Work Phone: [facility] 03-11-2024 04:26-0500 Systolic blood pressure 114 mm[Hg] Paul Greco MD Work Phone: [facility] 03-10-2024 20:18-0500 Body mass index (BMI) [Ratio] 32.4 kg/m2 Paul Greco MD Work Phone: [facility] 03-10-2024 20:18-0500 Body weight 80.42 kg Paul Greco MD Work Phone: [facility] 03-06-2024 00:19-0500 Body weight 79.15 kg Paul Greco MD Work Phone: [facility] 02-29-2024 11:53-0500 Diastolic blood pressure 84 mm[Hg] [facility] 02-29-2024 11:53-0500 Heart rate 81 /min [facility] 02-29-2024 11:53-0500 Systolic blood pressure 126 mm[Hg] [facility] 02-29-2024 10:33-0500 Body mass index (BMI) [Ratio] 33.03 kg/m2 [facility] 02-29-2024 10:33-0500 Body temperature 97.3 [degF] [facility] 02-29-2024 10:33-0500 Body weight 79.3 kg [facility] 02-29-2024 10:33-0500 Respiratory rate 16 /min [facility] 02-26-2024 09:13-0500 Body mass index (BMI) [Ratio] 31.2 kg/m2 Paul Greco MD Work Phone: [facility] 02-26-2024 09:13-0500 Body weight 77.56 kg Paul Greco MD Work Phone: [facility] 02-26-2024 09:13-0500 Diastolic blood pressure 94 mm[Hg] Paul Greco MD Work Phone: [facility] 02-26-2024 09:13-0500 Heart rate 84 /min Paul Greco MD Work Phone: [facility] 02-26-2024 09:13-0500 Respiratory rate 18 /min Paul Greco MD Work Phone: [facility] 02-26-2024 09:13-0500 SaO2% (BldA) [Mass fraction] 95 % Paul Greco MD Work Phone: [facility] 02-26-2024 09:13-0500 Systolic blood pressure 132 mm[Hg] Paul Greco MD Work Phone: [facility] 02-23-2024 11:26-0500 Body weight 79.15 kg Paul Greco MD Work Phone: [facility] 02-09-2024 19:47-0500 Body temperature 99.1 [degF] Paul Greco MD Work Phone: [facility] 02-09-2024 19:47-0500 Diastolic blood pressure 95 mm[Hg] Paul Greco MD Work Phone: [facility] 02-09-2024 19:47-0500 Heart rate 111 /min Paul Greco MD Work Phone: [facility] 02-09-2024 19:47-0500 Respiratory rate 16 /min Paul Greco MD Work Phone: [facility] 02-09-2024 19:47-0500 SaO2% (BldA) [Mass fraction] 96 % Paul Greco MD Work Phone: [facility] 02-09-2024 19:47-0500 Systolic blood pressure 152 mm[Hg] Paul Greco MD Work Phone: [facility] 02-09-2024 17:09-0500 Body mass index (BMI) [Ratio] 32.8 kg/m2 Paul Greco MD Work Phone: [facility] 02-09-2024 17:09-0500 Body weight 81.5 kg Paul Greco MD Work Phone: [facility] 01-24-2024 09:04-0500 Body weight 78.92 kg Paul Greco MD Work Phone: [facility] 01-24-2024 08:42-0500 Body mass index (BMI) [Ratio] 31.8 kg/m2 Paul Greco MD Work Phone: [facility] 01-24-2024 08:42-0500 Diastolic blood pressure 90 mm[Hg] Paul rGeco MD Work Phone: [facility] 01-24-2024 08:42-0500 Heart rate 104 /min Paul Greco MD Work Phone: [facility] 01-24-2024 08:42-0500 SaO2% (BldA) [Mass fraction] 95 % Paul Greco MD Work Phone: [facility] 01-24-2024 08:42-0500 Systolic blood pressure 150 mm[Hg] Paul Greco MD Work Phone: [facility] 01-18-2024 10:06-0500 Body temperature 97.3 [degF] [facility] 01-18-2024 10:06-0500 Diastolic blood pressure 94 mm[Hg] [facility] 01-18-2024 10:06-0500 Heart rate 99 /min [facility] 01-18-2024 10:06-0500 Respiratory rate 18 /min [facility] 01-18-2024 10:06-0500 SaO2% (BldA) [Mass fraction] 97 % [facility] 01-18-2024 10:06-0500 Systolic blood pressure 157 mm[Hg] [facility] 01-18-2024 08:45-0500 Body mass index (BMI) [Ratio] 33.99 kg/m2 [facility] 01-18-2024 08:45-0500 Body weight 81.6 kg [facility] 11-10-2023 10:34-0400 Body temperature 97.7 [degF] [facility] 11-10-2023 10:34-0400 Diastolic blood pressure 91 mm[Hg] [facility] 11-10-2023 10:34-0400 Heart rate 88 /min [facility] 11-10-2023 10:34-0400 Respiratory rate 18 /min [facility] 11-10-2023 10:34-0400 SaO2% (BldA) [Mass fraction] 98 % [facility] 11-10-2023 10:34-0400 Systolic blood pressure 177 mm[Hg] [facility] 11-10-2023 10:23-0400 Body mass index (BMI) [Ratio] 35.2 kg/m2 [facility] 11-10-2023 10:23-0400 Body weight 84.5 kg [facility] 09-29-2023 14:27-0400 Body height 154.9 cm Robert Farias MD Work Phone: [facility] 09-29-2023 14:27-0400 Body mass index (BMI) [Ratio] 35.39 kg/m2 Robert Farias MD Work Phone: [facility] 09-29-2023 14:27-0400 Body temperature 98.2 [degF] Robert Farias MD Work Phone: [facility] 09-29-2023 14:27-0400 Body weight 84.96 kg Robert Farias MD Work Phone: [facility] 09-29-2023 14:27-0400 Diastolic blood pressure 83 mm[Hg] Robert Farias MD Work Phone: [facility] 09-29-2023 14:27-0400 Heart rate 105 /min Robert Farias MD Work Phone: [facility] 09-29-2023 14:27-0400 Systolic blood pressure 173 mm[Hg] Robert Farias MD Work Phone: [facility] 09-22-2023 12:00-0400 Diastolic blood pressure 89 mm[Hg] [facility] 09-22-2023 12:00-0400 Heart rate 80 /min [facility] 09-22-2023 12:00-0400 Respiratory rate 16 /min [facility] 09-22-2023 12:00-0400 Systolic blood pressure 188 mm[Hg] [facility] 09-22-2023 10:27-0400 Body mass index (BMI) [Ratio] 35.31 kg/m2 [facility] 09-22-2023 10:27-0400 Body temperature 98.6 [degF] [facility] 09-22-2023 10:27-0400 Body weight 84.78 kg [facility] 09-22-2023 10:27-0400 SaO2% (BldA) [Mass fraction] 97 % [facility] 08-04-2023 10:54-0400 Body temperature 97.7 [degF] [facility] 08-04-2023 10:54-0400 Diastolic blood pressure 94 mm[Hg] [facility] 08-04-2023 10:54-0400 Heart rate 64 /min [facility] 08-04-2023 10:54-0400 Respiratory rate 18 /min [facility] 08-04-2023 10:54-0400 SaO2% (BldA) [Mass fraction] 98 % [facility] 08-04-2023 10:54-0400 Systolic blood pressure 162 mm[Hg] [facility] 08-04-2023 10:36-0400 Body mass index (BMI) [Ratio] 34.8 kg/m2 [facility] 08-04-2023 10:36-0400 Body weight 83.55 kg [facility] 06-16-2023 10:35-0400 Body temperature 98.91 [degF] [facility] 06-16-2023 10:35-0400 Diastolic blood pressure 92 mm[Hg] [facility] 06-16-2023 10:35-0400 Heart rate 79 /min [facility] 06-16-2023 10:35-0400 Respiratory rate 16 /min [facility] 06-16-2023 10:35-0400 Systolic blood pressure 160 mm[Hg] [facility] 06-16-2023 10:28-0400 Body weight 83.37 kg [facility] 04-28-2023 10:59-0500 Body temperature 97.3 [degF] Chair Truro Work Phone: [facility] 04-28-2023 10:59-0500 Diastolic blood pressure 90 mm[Hg] Chair Truro Work Phone: [facility] 04-28-2023 10:59-0500 Heart rate 61 /min Chair Truro Work Phone: [facility] 04-28-2023 10:59-0500 Respiratory rate 18 /min Chair Truro Work Phone: [facility] 04-28-2023 10:59-0500 Systolic blood pressure 168 mm[Hg] Chair Truro Work Phone: [facility] 04-28-2023 10:31-0500 Body weight 83.87 kg Chair Truro Work Phone: [facility] 01-20-2023 12:30-0500 Diastolic blood pressure 80 mm[Hg] [facility] 01-20-2023 12:30-0500 Heart rate 82 /min [facility] 01-20-2023 12:30-0500 Systolic blood pressure 168 mm[Hg] [facility] 01-20-2023 10:40-0500 Body temperature 97.9 [degF] [facility] 01-20-2023 10:40-0500 Body weight 83.51 kg [facility] 01-20-2023 10:40-0500 Respiratory rate 20 /min [facility] 12-02-2022 13:06-0400 Diastolic blood pressure 82 mm[Hg] Chair Truro Work Phone: [facility] 12-02-2022 13:06-0400 Heart rate 89 /min Chair Truro Work Phone: [facility] 12-02-2022 13:06-0400 Respiratory rate 18 /min Chair Truro Work Phone: [facility] 12-02-2022 13:06-0400 SaO2% (BldA) [Mass fraction] 97 % Chair [place]ro Work Phone: [facility] 12-02-2022 13:06-0400 Systolic blood pressure 149 mm[Hg] Chair Truro Work Phone: [facility] 12-02-2022 11:42-0400 Body temperature 97.9 [degF] Chair Truro Work Phone: [facility] 12-02-2022 11:42-0400 Body weight 85.91 kg Chair Truro Work Phone: [facility] 10-14-2022 10:24-0400 Body temperature 98.1 [degF] [facility] 10-14-2022 10:24-0400 Body weight 89.22 kg [facility] 10-14-2022 10:24-0400 Diastolic blood pressure 90 mm[Hg] [facility] 10-14-2022 10:24-0400 Heart rate 72 /min [facility] 10-14-2022 10:24-0400 Respiratory rate 20 /min [facility] 10-14-2022 10:24-0400 Systolic blood pressure 166 mm[Hg] [facility] 08-26-2022 12:03-0400 Diastolic blood pressure 80 mm[Hg] Chair Truro Work Phone: [facility] 08-26-2022 12:03-0400 Heart rate 69 /min Chair Truro Work Phone: [facility] 08-26-2022 12:03-0400 Respiratory rate 18 /min Chair Truro Work Phone: [facility] 08-26-2022 12:03-0400 Systolic blood pressure 154 mm[Hg] Chair Truro Work Phone: [facility] 08-26-2022 10:30-0400 Body temperature 97.5 [degF] Chair Truro Work Phone: [facility] 08-26-2022 10:30-0400 Body weight 88.27 kg Chair Truro Work Phone: [facility] 08-26-2022 10:30-0400 SaO2% (BldA) [Mass fraction] 98 % Chair Truro Work Phone: [facility] 07-08-2022 09:37-0400 Body weight 89.09 kg Chair Truro Work Phone: [facility] 05-20-2022 09:48-0400 Diastolic blood pressure 85 mm[Hg] [facility] 05-20-2022 09:48-0400 Heart rate 74 /min [facility] 05-20-2022 09:48-0400 Respiratory rate 18 /min [facility] 05-20-2022 09:48-0400 Systolic blood pressure 180 mm[Hg] [facility] 05-20-2022 09:37-0400 Body weight 90.72 kg [facility] 03-31-2022 10:38-0500 Body temperature 98.1 [degF] [facility] 03-31-2022 10:38-0500 Body weight 89.5 kg [facility] 03-31-2022 10:38-0500 Diastolic blood pressure 79 mm[Hg] [facility] 03-31-2022 10:38-0500 Heart rate 83 /min [facility] 03-31-2022 10:38-0500 Respiratory rate 16 /min [facility] 03-31-2022 10:38-0500 Systolic blood pressure 161 mm[Hg] [facility] 01-07-2022 10:07-0400 Diastolic blood pressure 83 mm[Hg] Chair Truro Work Phone: [facility] 01-07-2022 10:07-0400 Heart rate 80 /min Chair Truro Work Phone: [facility] 01-07-2022 10:07-0400 Systolic blood pressure 158 mm[Hg] Chair Truro Work Phone: [facility] 01-07-2022 10:06-0400 Body temperature 98.2 [degF] Chair Truro Work Phone: [facility] 01-07-2022 10:06-0400 Respiratory rate 16 /min Chair Truro Work Phone: [facility] 01-07-2022 10:00-0400 Body weight 89.63 kg Chair Truro Work Phone: [facility] 11-19-2021 11:46-0400 Diastolic blood pressure 73 mm[Hg] Chair Truro Work Phone: [facility] 11-19-2021 11:46-0400 Heart rate 72 /min Chair Truro Work Phone: [facility] 11-19-2021 11:46-0400 Respiratory rate 18 /min Chair Truro Work Phone: [facility] 11-19-2021 11:46-0400 Systolic blood pressure 142 mm[Hg] Chair Truro Work Phone: [facility] 11-19-2021 10:40-0400 Body temperature 97.5 [degF] Chair Truro Work Phone: [facility] 10-22-2021 14:25-0400 Body height 154.9 cm Robert Farias MD Work Phone: [facility] 10-22-2021 14:25-0400 Body temperature 98.1 [degF] Robert Farias MD Work Phone: [facility] 10-22-2021 14:25-0400 Body weight 92.67 kg Robert Farias MD Work Phone: [facility] 10-22-2021 14:25-0400 Diastolic blood pressure 97 mm[Hg] Robert Farias MD Work Phone: [facility] 10-22-2021 14:25-0400 Heart rate 84 /min Robert Farias MD Work Phone: [facility] 10-22-2021 14:25-0400 Systolic blood pressure 169 mm[Hg] Robert Farias MD Work Phone: [facility] 10-01-2021 10:07-0400 Body weight 93.44 kg [facility] 08-13-2021 10:10-0400 Body temperature 97.81 [degF] [facility] 08-13-2021 10:10-0400 Diastolic blood pressure 71 mm[Hg] [facility] 08-13-2021 10:10-0400 Heart rate 79 /min [facility] 08-13-2021 10:10-0400 Respiratory rate 16 /min [facility] 08-13-2021 10:10-0400 Systolic blood pressure 149 mm[Hg] [facility] 08-13-2021 10:08-0400 Body weight 91.99 kg [facility] 07-16-2021 15:33-0400 Body height 154.9 cm Robert Farias MD Work Phone: [facility] 07-16-2021 15:33-0400 Body temperature 98.2 [degF] Robert Farias MD Work Phone: [facility] 07-16-2021 15:33-0400 Body weight 89.81 kg Robert Farias MD Work Phone: [facility] 07-16-2021 15:33-0400 Diastolic blood pressure 108 mm[Hg] Robert Farias MD Work Phone: [facility] 07-16-2021 15:33-0400 Heart rate 86 /min Robert Farias MD Work Phone: [facility] 07-16-2021 15:33-0400 Systolic blood pressure 188 mm[Hg] Robert Farias MD Work Phone: [facility] 06-25-2021 09:30-0400 Body temperature 97.7 [degF] [facility] 06-25-2021 09:30-0400 Body weight 90.81 kg [facility] 06-25-2021 09:30-0400 Diastolic blood pressure 95 mm[Hg] [facility] 06-25-2021 09:30-0400 Heart rate 82 /min Chair [facility] 06-25-2021 09:30-0400 Respiratory rate 20 /min Chair [facility] 06-25-2021 09:30-0400 Systolic blood pressure 165 mm[Hg] [facility] 06-19-2020 14:10-0400 Body temperature 98.6 [degF] Robert Farias Work Phone: [facility] 06-19-2020 14:10-0400 Body weight 86.55 kg Robert Farias Work Phone: [facility] 06-19-2020 14:10-0400 Diastolic blood pressure 91 mm[Hg] Robert Farias Work Phone: [facility] 06-19-2020 14:10-0400 Heart rate 88 /min Robert Farias Work Phone: [facility] 06-19-2020 14:10-0400 Systolic blood pressure 133 mm[Hg] Robert Farias Work Phone: [facility] Encounters Encounter Date Encounter Type Care Provider Facility Start: 12-20-2024 End: 12-20-2024 ambulatory ROBERT FARIAS Facility:[facility] Start: 11-11-2024 End: 11-11-2024 Refill Robert Farias MD Work Phone: [facility] [place] Comment on above: Refill Request Start: 11-08-2024 End: 11-08-2024 ambulatory Chair 7 [facility] [place] Work Phone: Hematology/Oncology Comment on above: Rheumatoid arthritis involving both hands with positive rheumatoid factor (HCC) (Primary Dx); High risk medication use; Cerebrovascular disease Start: 11-07-2024 End: 11-07-2024 Orders Only Robert Farias MD Work Phone: [facility] [place] Start: 10-30-2024 End: 10-30-2024 Telephone encounter Robert Farias MD Work Phone: [facility] Comment on above: INFLECTRA - PENDING (Inflectra, [place] - PENDING [id number] Formerly [facility] [employer]Portal) Start: 10-29-2024 End: 10-29-2024 Patient encounter procedure Ambreen Delaney NP-C -[facility] Work Phone: Start: 10-29-2024 End: 10-29-2024 ambulatory Paul Greco MD Work Phone: [facility] Start: 10-25-2024 End: 10-25-2024 Telephone encounter Robert Farias MD Work Phone: [facility] [place] Comment on above: Appointment Start: 10-25-2024 End: 10-25-2024 Patient encounter procedure Robert Farias MD Work Phone: [facility] [place] Comment on above: Rheumatoid arthritis involving both hands with positive rheumatoid factor (HCC) (Primary Dx); High risk medication use; Cerebrovascular disease; Asymptomatic postmenopausal status Start: 10-25-2024 End: 10-25-2024 Telemedicine consultation with patient Robert Farias MD Work Phone: [facility] [place] Start: 10-25-2024 End: 10-25-2024 ambulatory ROBERT FARIAS Facility:[facility] Start: 10-22-2024 End: 10-22-2024 Telephone encounter Robert Farias MD Work Phone: [facility] Comment on above: INFLECTRA - PENDING (Inflectra, [place] - PENDING [id number] Formerly [facility] [employer]) Start: 10-07-2024 End: 10-07-2024 Refill Robert Farias MD Work Phone: [facility] [place] Comment on above: Refill Request Start: 09-27-2024 End: 09-27-2024 ambulatory Chair 3 [facility] [place] Hematology/Oncology Comment on above: Rheumatoid arthritis involving both hands with positive rheumatoid factor (HCC) (Primary Dx) Start: 08-23-2024 End: 08-23-2024 ambulatory Paul Greco MD Work Phone: [facility] Work Phone: Start: 08-23-2024 End: 08-23-[address] Paul Greco MD -[facility] Work Phone: Start: 08-23-2024 End: 08-23-2024 ambulatory Paul Greco Facility:[facility] Start: 08-13-2024 End: 08-13-2024 Patient encounter procedure Ambreen Delaney [employer]-C -Cardiovascular Services Work Phone: Start: 08-13-2024 End: 08-14-2024 Refill Robert Farias MD Work Phone: [facility] [place] Comment on above: Refill Request Start: 08-13-2024 End: 08-13-2024 ambulatory Paul Greco Facility:[facility] Start: 08-12-2024 End: 08-12-2024 Telephone encounter Robert Farias MD Work Phone: [facility] [place] Start: 08-11-2024 Encounter for genera l adult medical examination without abnormal findings Ambreen Delaney NP [facility] Start: 08-09-2024 End: 08-09-2024 ambulatory Chair 5 [facility] Hematology/Oncology Comment on above: Rheumatoid arthritis involving both hands with positive rheumatoid factor (HCC) (Primary Dx) Start: 08-06-2024 End: 08-06-2024 ambulatory Paul Greco MD Work Phone: [facility] Work Phone: Start: 08-06-2024 End: 08-06-2024 Patient encounter procedure Ambreen Delaney [employer]-C -Laboratory Work Phone: Start: 08-06-2024 End: 08-06-2024 ambulatory Ambreen Delaney NP Facility:[facility] Start: 07-30-2024 End: 07-30-2024 Patient encounter procedure Ambreen Delaney [employer]-C -[facility] Work Phone: Start: 07-30-2024 End: 07-30-2024 ambulatory Paul Greco MD Work Phone: [facility] Work Phone: Start: 07-25-2024 End: 07-25-2024 Emergency department patient visit Paul Greco MD Work Phone: -Emergency Department Work Phone: Start: 07-18-2024 End: 07-18-2024 Telephone encounter Robert Farias MD Work Phone: [facility] Comment on above: RENFLEXIS - PENDING (Kirill Contreras - PENDING [id number] Formerly [facility]/[place]) Start: 07-09-2024 End: 07-09-2024 Refill Robert Farias MD Work Phone: [facility] [place] Comment on above: Refill Request Start: 07-03-2024 End: 07-03-2024 Emergency department patient visit Dr. Corey De Jesus DO -Emergency Department Work Phone: Start: 06-14-2024 End: 06-14-2024 Patient encounter procedure Robert Farias MD Work Phone: [facility] [place] Comment on above: Rheumatoid arthritis involving both hands with positive rheumatoid factor (HCC) (Primary Dx); Asymptomatic postmenopausal status; High risk medication use Start: 06-14-2024 End: 06-14-2024 ambulatory ROBERT FARIAS Facility:[facility] Start: 06-03-2024 End: 06-03-2024 ambulatory Chair 3 [facility] Hematology/Oncology Comment on above: Rheumatoid arthritis involving both hands with positive rheumatoid factor (HCC) (Primary Dx) Start: 05-31-2024 End: 05-31-2024 Patient encounter procedure Ana Rosa RONDON -[facility] Work Phone: Start: 05-31-2024 End: 05-31-2024 ambulatory Paul Greco Facility:[facility] Start: 05-29-2024 End: 05-29-2024 Patient encounter procedure Andressa RONDON -[facility] Work Phone: Start: 05-29-2024 End: 05-29-2024 ambulatory [facility] Facility:[facility] Start: 05-28-2024 End: 05-28-2024 Telephone encounter Robert Farias MD Work Phone: [facility] Comment on above: RENFLEXIS - PENDING (Renflexis, [place] - PENDING [id number] Formerly [facility] Portal) Start: 05-27-2024 Non-patient / Non-visit [facility]. Esparza [facility] Start: 05-27-2024 Non-patient / Non-visit Dr. Jenelle Gaspar MD -[facility] Work Phone: Start: 05-27-2024 End: 05-27-2024 ambulatory [facility] Facility:[facility] Start: 05-27-2024 End: 05-27-2024 Evaluation and management of inpatient Dr. Isael Baeza DO -Progressive Care Unit Work Phone: Start: 05-27-2024 End: 05-27-2024 observation encounter Paul Greco MD Work Phone: [facility] Work Phone: Start: 05-26-2024 End: 05-27-2024 Emergency department patient visit GAUTAM CARRANZA Facility:[facility] Start: 05-03-2024 End: 05-03-2024 ambulatory Paul Greco MD Work Phone: [facility] Work Phone: Start: 05-03-2024 End: 05-03-2024 Patient encounter procedure Andressa RONDON -Laboratory, Specimen Work Phone: Start: 05-03-2024 End: 05-03-2024 ambulatory Paul Angus Facility:[facility] Start: 04-30-2024 End: 04-30-2024 Patient encounter procedure Andressa RONDON -[facility] Work Phone: Start: 04-30-2024 End: 04-30-2024 ambulatory Chalon Angus Facility:[facility] Start: 04-16-2024 ambulatory Chalon Angus Facility:[facility] Start: 04-15-2024 ambulatory Chalon Angus Facility:[facility] Start: 04-15-2024 Non-patient / Non-visit Ken Mead nd DO -[facility] Start: 04-15-2024 End: 04-15-2024 Admission to same day surgery center Ken Xei DO -Endoscopy Work Phone: Start: 04-15-2024 End: 04-15-2024 ambulatory Chalon Angus Facility:[facility] Start: 04-13-2024 End: 06-13-2024 Follow-up encounter Robert Farias MD Work Phone: [facility] [place] Start: 04-11-2024 End: 04-11-2024 ambulatory Chair 2 [facility] Hematology/Oncology Comment on above: Rheumatoid arthritis involving both hands with positive rheumatoid factor (HCC) (Primary Dx) Start: 04-10-2024 End: 04-10-2024 Refill Robert Farias MD Work Phone: [facility] [place] Comment on above: Refill Request Start: 04-05-2024 End: 04-08-2024 Refill Robert Farias MD Work Phone: [facility] [place] Comment on above: Refill Request Start: 03-31-2024 End: 04-01-2024 Refill Robert Farias MD Work Phone: [facility] [place] Comment on above: Refill Request Start: 03-10-2024 End: 03-11-2024 Emergency department patient visit Dr. Zurdo Polo MD -Emergency Department Work Phone: Start: 03-08-2024 End: 04-05-[address] Jose Mondragon MD -Cardiac Rehab Work Phone: Start: 03-08-2024 End: 04-05-2024 ambulatory Chalon Angus Facility:[facility] Start: 02-29-2024 End: 02-29-2024 ambulatory Chair 2 [facility] Hematology/Oncology Comment on above: Rheumatoid arthritis involving both hands with positive rheumatoid factor (HCC) (Primary Dx) Start: 02-26-2024 End: 02-26-2024 Patient encounter procedure Ana Rosa RONDON -[facility] Work Phone: Start: 02-26-2024 End: 02-26-2024 ambulatory Chalon Angus Facility:[facility] Start: 02-26-2024 End: 02-26-2024 ambulatory Chalon [facility] Facility:[facility] Start: 02-21-2024 End: 03-05-2024 ambulatory Chalon Angus Facility:[facility] Start: 02-21-2024 End: 03-05-[address] Jose Mondragon MD -Cardiac Rehab Work Phone: Start: 02-09-2024 End: 02-09-2024 Emergency department patient visit Dr. Gustabo Harris -Emergency Department Work Phone: Start: 02-09-2024 End: 02-09-[address] Paul Greco MD -Laboratory, [facility] Start: 02-09-2024 End: 02-09-2024 ambulatory Chalbart Angus Facility:[facility] Start: 02-06-2024 End: 02-06-2024 Patient encounter procedure Andressa RONDON -[facility] Work Phone: Start: 02-06-2024 End: 02-06-2024 ambulatory Chalbart Angus Facility:[facility] Start: 02-05-2024 End: 02-05-2024 Patient encounter procedure Robert Farias MD Work Phone: [facility] [place] Comment on above: Rheumatoid arthritis involving both hands with positive rheumatoid factor (HCC) (Primary Dx); Anemia, chronic disease; Recurrent infections Start: 02-05-2024 End: 02-05-2024 Telemedicine consultation with patient Robert Farias MD Work Phone: [facility] [place] Start: 02-05-2024 End: 02-05-2024 ambulatory ROBERT FARIAS [facility] Start: 01-31-2024 End: 02-03-2024 ambulatory Chalon Angus Facility:[facility] Start: 01-31-2024 End: 02-03-[address] Jose Mondragon MD -Cardiac Rehab Work Phone: Start: 01-31-2024 End: 01-31-2024 Patient encounter procedure Xiang Rogers [employer]CH[employer]-C -Laboratory Work Phone: Start: 01-31-2024 End: 01-31-2024 ambulatory Chalon Angus [facility] [facility] Start: 01-24-2024 End: 01-24-[address] Jose Mondragon MD -Cardiac Rehab Work Phone: Start: 01-24-2024 End: 01-24-2024 ambulatory Chalon Angus Facility:[facility] Start: 01-22-2024 End: 01-22-2024 Refill Robert Farias MD Work Phone: [facility] [place] Comment on above: Refill Request Start: 01-20-2024 End: 01-22-2024 Telephone encounter Robert Farias MD Work Phone: [facility] Arthritis & Rheumatology Start: 01-18-2024 End: 01-18-2024 ambulatory Chair 5 [facility] Hematology/Oncology Comment on above: Rheumatoid arthritis involving both hands with positive rheumatoid factor (HCC) (Primary Dx) Start: 01-17-2024 Non-patient / Non-visit Dr. Reinaldo Mondragon MD -[facility] Start: 01-17-2024 ambulatory Chalon Angus [facility] Start: 01-12-2024 ambulatory Chalon Angus [facility] Start: 01-11-2024 End: 01-11-2024 ambulatory Chalon Angus Facility:[facility] Start: 01-11-2024 ambulatory Chalon Angus [facility] Start: 01-11-2024 End: 01-13-2024 Evaluation and management of inpatient Chalon Angus Facility:[facility] Start: 01-11-2024 End: 01-11-2024 Refill Robert Farias MD Work Phone: [facility] [place] Comment on above: Refill Request Start: 01-11-2024 End: 01-11-2024 ambulatory [facility] Facility:[facility] Start: 11-20-2023 End: 11-21-2023 Refill Robert Farias MD Work Phone: [facility] [place] Comment on above: Refill Request Start: 11-10-2023 End: 11-10-2023 ambulatory Chair 6 [facility] Hematology/Oncology Comment on above: Rheumatoid arthritis involving both hands with positive rheumatoid factor (HCC) (Primary Dx) Start: 11-02-2023 End: 11-02-2023 Refill Robert Farias MD Work Phone: [facility] [place] Comment on above: Refill Request Start: 10-13-2023 Refill Robert barger MD Work Phone: [facility] [place] Comment on above: Refill Request Start: 10-13-2023 Refill Robert barger MD Work Phone: [facility] [place] Comment on above: Refill Request Start: 09-29-2023 End: 09-29-2023 Patient encounter procedure Robert Farias MD Work Phone: [facility] [place] Comment on above: Rheumatoid arthritis involving both hands with positive rheumatoid factor (HCC) (Primary Dx) Start: 09-22-2023 End: 09-22-2023 ambulatory Chair 3 [facility] Hematology/Oncology Comment on above: Rheumatoid arthritis involving both hands with positive rheumatoid factor (HCC) (Primary Dx) Start: 09-13-2023 Orders Only Becca Garcia PA-C Work Phone: [facility] Rheumatology and Arthritis Start: 08-04-2023 End: 08-04-2023 ambulatory Chair 3 [facility] Hematology/Oncology Comment on above: Rheumatoid arthritis involving both hands with positive rheumatoid factor (HCC) (Primary Dx) Start: 08-03-2023 Telephone encounter Robert Farias MD Work Phone: [facility] Arthritis & Rheumatology Comment on above: Medication Preauthor ization (Renflexis- [place] Approved [id number] [employer]/Faxed 08.04.23-08.03.24) Start: 08-02-2023 Refill Robert barger MD Work Phone: [facility] [place] Comment on above: Refill Request Start: 07-28-2023 Orders Only Robert barger MD Work Phone: [facility] [place] Start: 07-25-2023 Refill Robert barger MD Work Phone: [facility] [place] Comment on above: Refill Request Start: 06-16-2023 End: 06-16-2023 ambulatory Chair 6 [facility] Hematology/Oncology Comment on above: Rheumatoid arthritis involving both hands with positive rheumatoid factor (HCC) (Primary Dx) Start: 06-05-2023 Refill Robert barger MD Work Phone: [facility] [place] Comment on above: Refill Request Start: 05-07-2023 Refill Robert barger MD Work Phone: [facility] [place] Comment on above: Refill Request Start: 04-28-2023 End: 04-28-2023 ambulatory Chair 7 [facility] Work Phone: Hematology/Oncology Comment on above: Rheumatoid arthritis involving both hands with positive rheumatoid factor (HCC) (Primary Dx) Start: 04-24-2023 Refill Robert barger MD Work Phone: [facility] [place] Comment on above: Refill Request Start: 04-20-2023 Telephone encounter Robert Farias MD Work Phone: [facility] [place] Start: 04-17-2023 End: 04-17-2023 ambulatory Robert Farias MD Work Phone: [facility] [place] Comment on above: Rheumatoid arthritis involving both hands with positive rheumatoid factor (HCC) (Primary Dx) Start: 04-17-2023 End: 04-17-2023 Telemedicine consultation with patient Robert Farias MD Work Phone: [facility] Start: 02-01-2023 Refill Robert barger MD Work Phone: [facility] [place] Comment on above: Refill Request Start: 01-20-2023 End: 01-20-2023 ambulatory Chair 5 [facility] Hematology/Oncology Comment on above: Rheumatoid arthritis involving both hands with positive rheumatoid factor (HCC) (Primary Dx) Start: 01-12-2023 Telephone encounter Robert Farias MD Work Phone: [facility] [place] Comment on above: Medication Request ( Renflexis Order) Start: 01-10-2023 Refill Robert barger MD Work Phone: [facility] [place] Comment on above: Refill Request Start: 12-30-2022 End: 12-30-2022 ambulatory DO Alisa Escobar Work Phone: [facility] Work Phone: Start: 12-30-2022 End: 12-30-2022 Patient encounter procedure DO Alisa Escobar Work Phone: [facility] Work Phone: Start: 12-26-2022 End: 12-26-2022 ambulatory Robert Farias MD Work Phone: [facility] [place] Comment on above: Rheumatoid arthritis involving both hands with positive rheumatoid factor (HCC) (Primary Dx) Start: 12-26-2022 End: 12-26-2022 Telemedicine consultation with patient Robert Farias MD Work Phone: [facility] Start: 12-19-2022 Refill Indneda barger MD Work Phone: Medical Records Comment on above: Refill Request Start: 12-08-2022 Refill Robert barger MD Work Phone: [facility] [place] Comment on above: Refill Request Start: 12-07-2022 Refill Robert barger MD Work Phone: [facility] Arthritis & Rheumatology Comment on above: Refill Request Start: 12-02-2022 End: 12-02-2022 ambulatory Chair 9 [facility] Work Phone: Hematology/Oncology Comment on above: Rheumatoid arthritis involving both hands with positive rheumatoid factor (HCC) (Primary Dx) Start: 11-26-2022 Orders Only Robert barger MD Work Phone: [facility] [place] Start: 11-11-2022 Refill Robert barger MD Work Phone: [facility] [place] Comment on above: Refill Request Start: 10-31-2022 Non-patient / Non-visit DO Olegario Escobar Work Phone: [facility] Start: 10-27-2022 End: 10-27-2022 ambulatory DO Alisa Escobar Work Phone: [facility] Work Phone: Start: 10-27-2022 End: 10-27-2022 Patient encounter procedure DO Alisa Escobar Work Phone: [facility]-Pulmonary Services/Neurology Work Phone: Start: 10-14-2022 End: 10-14-2022 ambulatory Chair 1 [facility] Hematology/Oncology Comment on above: Rheumatoid arthritis involving both hands with positive rheumatoid factor (HCC) (Primary Dx) Start: 10-09-2022 Refill Robert barger MD Work Phone: [facility] [place] Comment on above: Refill Request Start: 09-14-2022 Refill Robert barger MD Work Phone: [facility] Arthritis & Rheumatology Comment on above: Refill Request Start: 09-08-2022 Refill Robert barger MD Work Phone: Medical Records Comment on above: Refill Request Start: 09-02-2022 End: 09-02-2022 ambulatory Robert Farias MD Work Phone: [facility] [place] Comment on above: Rheumatoid arthritis involving both hands with positive rheumatoid factor (HCC) (Primary Dx) Start: 09-02-2022 End: 09-02-2022 Telemedicine consultation with patient Robert Farias MD Work Phone: [facility] Start: 08-26-2022 End: 08-26-2022 ambulatory Chair 7 [facility] [place] Work Phone: Hematology/Oncology Comment on above: Rheumatoid arthritis involving both hands with positive rheumatoid factor (HCC) (Primary Dx) Start: 08-24-2022 Orders Only Robert barger MD Work Phone: [facility] [place] Start: 08-10-2022 Refill Robert barger MD Work Phone: [facility] [place] Comment on above: Refill Request Start: 07-08-2022 End: 07-08-2022 ambulatory Chair 7 [facility] [place] Work Phone: Hematology/Oncology Comment on above: Rheumatoid arthritis involving both hands with positive rheumatoid factor (HCC) (Primary Dx) Start: 06-30-2022 Orders Only Robert barger MD Work Phone: [facility] [place] Start: 06-29-2022 Refill Robert barger MD Work Phone: Medical Records Comment on above: Refill Request Start: 06-21-2022 Refill Robert barger MD Work Phone: [facility] Arthritis & Rheumatology Comment on above: Refill Request Start: 06-10-2022 Refill Indneda barger MD Work Phone: [facility] [place] Comment on above: Refill Request Start: 05-20-2022 End: 05-20-2022 ambulatory Chair 3 [facility] Hematology/Oncology Comment on above: Rheumatoid arthritis involving both hands with positive rheumatoid factor (HCC) (Primary Dx) Start: 05-12-2022 Refill Indneda barger MD Work Phone: [facility] [place] Comment on above: Refill Request Start: 05-06-2022 End: 05-06-2022 ambulatory [facility] Work Phone: Start: 05-06-2022 End: 05-06-2022 Patient encounter procedure [facility] Start: 05-02-2022 Refill Robert barger MD Work Phone: Medical Records Comment on above: Refill Request Start: 04-13-2022 Refill Indneda barger MD Work Phone: [facility] [place] Comment on above: Refill Request Start: 03-31-2022 End: 03-31-2022 ambulatory Chair 4 [facility] Hematology/Oncology Comment on above: Rheumatoid arthritis involving both hands with positive rheumatoid factor (HCC) (Primary Dx) Start: 03-31-2022 End: 03-31-2022 Subsequent hospital visit by physician [facility] [place] [facility] Comment on above: Asymptomatic postmen opausal status [Z78.0] Start: 03-30-2022 Refill Indneda barger MD Work Phone: [facility] Arthritis & Rheumatology Comment on above: Refill Request Start: 03-04-2022 Refill Indneda barger MD Work Phone: Medical Records Comment on above: Refill Request Start: 02-13-2022 Refill Robert barger MD Work Phone: Medical Records Comment on above: Refill Request Start: 02-07-2022 Refill Robert barger MD Work Phone: [facility] [place] Comment on above: Refill Request Start: 02-04-2022 End: 02-04-2022 ambulatory Robert Farias MD Work Phone: [facility] [place] Comment on above: Rheumatoid arthritis involving both hands with positive rheumatoid factor (HCC) (Primary Dx); Asymptomatic postmenopausal status Start: 02-04-2022 End: 02-04-2022 Telemedicine consultation with patient Robert Farias MD Work Phone: [facility] Start: 01-20-2022 Refill Robert barger MD Work Phone: Medical Records Comment on above: Refill Request Start: 01-20-2022 Telephone encounter Shawn Farias [facility] [place] 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 Start: 01-12-2022 Refill Robert barger MD Work Phone: [facility] Arthritis & Rheumatology Comment on above: Refill Request Start: 01-07-2022 End: 01-07-2022 ambulatory Chair 8 [facility] [place] Work Phone: Hematology/Oncology Comment on above: Rheumatoid arthritis involving both hands with positive rheumatoid factor (HCC) (Primary Dx) Start: 01-03-2022 Orders Only Robert barger MD Work Phone: [facility] [place] Start: 12-24-2021 Refill Robert barger MD Work Phone: Medical Records Comment on above: Refill Request Start: 12-15-2021 Refill Robert barger MD Work Phone: [facility] [place] Comment on above: Refill Request Start: 11-19-2021 End: 11-19-2021 ambulatory Chair 7 [facility] [place] Work Phone: Hematology/Oncology Comment on above: Rheumatoid arthritis involving both hands with positive rheumatoid factor (HCC) (Primary Dx) Start: 11-12-2021 Orders Only Robert barger MD Work Phone: [facility] [place] Start: 10-22-2021 End: 10-22-2021 Patient encounter procedure Robert Farias MD Work Phone: [facility] [place] Comment on above: Rheumatoid arthritis involving both hands with positive rheumatoid factor (HCC) (Primary Dx) Start: 10-14-2021 Refill Robert barger MD Work Phone: [facility] [place] Comment on above: Refill Request Start: 10-01-2021 End: 10-01-2021 ambulatory Chair 1 [facility] Hematology/Oncology Comment on above: Rheumatoid arthritis involving both hands with positive rheumatoid factor (HCC) (Primary Dx) Start: 09-29-2021 Telephone encounter Robert Farias MD Work Phone: [facility] [place] Comment on above: Refill Request Start: 09-28-2021 Telephone encounter Robert Farias MD Work Phone: [facility] [place] Comment on above: Patient Question Start: 09-16-2021 End: 09-16-2021 ambulatory ROBERT FARIAS Facility:[facility] Start: 09-10-2021 Refill Robert barger MD Work Phone: Medical Records Comment on above: Refill Request Start: 08-14-2021 Refill Robert barger MD Work Phone: [facility] [place] Comment on above: Refill Request Start: 08-13-2021 End: 08-13-2021 ambulatory Chair 4 [facility] Hematology/Oncology Comment on above: Rheumatoid arthritis involving both hands with positive rheumatoid factor (HCC) (Primary Dx) Start: 08-11-2021 Telephone encounter Robert Farias MD Work Phone: [facility] Arthritis & Rheumatology Comment on above: PENDING (Renflexis P ENDING with [employer] fax with office note pt scheduled) Start: 08-10-2021 Orders Only Robert barger MD Work Phone: [facility] [place] Start: 08-09-2021 Refill Robert barger MD Work Phone: [facility] [place] Comment on above: Refill Request Start: 07-22-2021 Telephone encounter Robert Farias MD Work Phone: [facility] Comment on above: APPROVED (Humira Pen APPROVED [id number] 07.04.2021 - 07.21.2022 with [employer]/cover my meds) Start: 07-16-2021 End: 07-16-2021 Patient encounter procedure Robert Farias MD Work Phone: [facility] [place] Comment on above: Rheumatoid arthritis involving both hands with positive rheumatoid factor (HCC) (Primary Dx) Start: 07-16-2021 Telephone encounter Robert Farias MD Work Phone: [facility] [place] Comment on above: Patient Update Start: 06-25-2021 End: 06-25-2021 ambulatory Chair 1 [facility] Hematology/Oncology Comment on above: Rheumatoid arthritis involving both hands with positive rheumatoid factor (HCC) (Primary Dx) Start: 08-11-2020 ambulatory [facility] Comment on above: RE:Labs Needed Pleas e Start: 08-11-2020 End: 08-11-2020 E-mail encounter from caregiver [facility] Provider [facility] Start: 08-11-2020 End: 08-11-2020 Telephone encounter Robert Farias MD Work Phone: [facility] Comment on above: Phone Call Start: 08-10-2020 End: 08-10-2020 Telephone encounter Robert Farias MD Work Phone: [facility] [place] Comment on above: Patient Update Start: 08-04-2020 End: 08-04-2020 Telephone encounter Robert Farias MD Work Phone: [facility] Comment on above: Pending PA (Renflexi s fax pending with [employer]) Start: 06-19-2020 End: 06-19-2020 Hemonc Orders Only Robert Farias Work Phone: [facility] Arthritis & Rheumatology Comment on above: Rheumatoid [...] Blood count complete auto&auto difrntl wbc Becca [place]ter[place] PA-C Work Phone: Start: 03-10-2024 CT angiography [...] wbc Becca Jose PA-C Work Phone: Start: 06-16-2023 Blood count [...] DTaP,Tdap,Td Vaccine (2 - Td or Tdap) [facility] Start: 11-09-2027 Diabetes Screening Diabetes Screening [facility] Start: 08-10-2027 Diabetes Screening Diabetes Screening [facility] Start: 04-11-2027 Diabetes Screening Diabetes Screening [facility] Start: 01-17-2027 Diabetes Screening Diabetes Screening [facility] Start: 10-29-2026 Screening for malignant neoplasm of colon [facility] Start: 09-21-2026 Diabetes Screening Diabetes Screening [facility] Start: 06-15-2026 Diabetes Screening Diabetes Screening [facility] Start: 01-20-2026 Diabetes Screening Diabetes Screening [facility] Start: 10-14-2025 DIABETES SCREEN DIABETES SCREEN [facility] Start: 10-14-2025 Diabetes Screening Diabetes Screening [facility] Start: 06-25-2025 End: 06-25-2025 Patient encounter procedure 06/25/2025 9:00 AM [facility] [place] [address] Robert Farias MD [address] [place], [place] [id number] 8 [facility] [place] Comment on above: 8 month fu Start: 05-20-2025 DIABETES SCREEN DIABETES SCREEN [facility] Start: 03-31-2025 DIABETES SCREEN DIABETES SCREEN [facility] Start: 02-26-2025 End: 02-26-2025 Patient encounter procedure 02/26/2025 8:00 AM EST [facility] [address] [address] Robert Farias MD [address] [place], [place] [id number] 4 month fu [facility] [place] Comment on above: 4 month fu Start: 02-07-2025 End: 02-07-2025 ambulatory 02/07/2025 1:00 PM EST [facility] [address] [place], [place] [id number] *[facility] Comment on above: *[facility] Start: 12-20-2024 End: 12-20-2024 ambulatory 12/20/2024 1:00 PM EDT [facility]Oncology [address] [place], [place] [id number] *[facility] Comment on above: *[facility] Start: 11-19-2024 DIABETES SCREEN DIABETES SCREEN [facility] Start: 11-08-2024 End: 11-08-2024 ambulatory Hematology/Oncology Comment on above: *[facility] - (Auth Pe nding) Start: 11-04-2024 Influenza vaccination Influenza Vaccine (#1) Sylmar Dorethai c Start: 10-25-2024 End: 01-24-2025 LELO BY IFA SCREEN LELO BY IFA SCREEN Lab Routine Cerebrovascular disease Expected: 10/25/2024, Expires: 01/24/2025 [facility] Comment on above: Expected: 10/25/2024, Expires: Start: 10-25-2024 End: 01-24-2025 B 2 GPI IGG & IGM B 2 GPI IGG & IGM Lab Routine Cerebrovascular disease Expected: 10/25/2024, Expires: 01/24/2025 [facility] Comment on above: Expected: 10/25/2024, Expires: Start: 10-25-2024 End: 01-24-2025 BLOOD TB SCREEN BLOOD TB SCREEN Lab Routine Rheumatoid arthritis involving both hands with positive rheumatoid factor (HCC) High risk medication use Expected: 10/25/2024, Expires: 01/24/2025 [facility] Work Phone: Comment on above: Expected: 10/25/2024, Expires: Start: 10-25-2024 End: 01-24-2025 Cardiolipin IgG and IgM panel - Serum ANTI-CARDIOLIPIN AB Lab Routine Cerebrovascular disease Expected: 10/25/2024, Expires: 01/24/2025 [facility] Comment on above: Expected: 10/25/2024, Expires: Start: 10-25-2024 End: 01-24-2025 CBC W Auto Differential panel - Blood COMPLETE BLOOD COUNT AND DIFFERENTIAL Lab Routine Rheumatoid arthritis involving both hands with positive rheumatoid factor (HCC) High risk medication use Expected: 10/25/2024, Expires: 01/24/2025 [facility] Comment on above: Expected: 10/25/2024, Expires: Start: 10-25-2024 End: 01-24-2025 Complement C3 [Mass/volume] in Serum or Plasma C3 COMPLEMENT Lab Routine Cerebrovascular disease Expected: 10/25/2024, Expires: 01/24/2025 [facility] Comment on above: Expected: 10/25/2024, Expires: Start: 10-25-2024 End: 01-24-2025 Complement C4 [Mass/volume] in Serum or Plasma C4 COMPLEMENT Lab Routine Cerebrovascular disease Expected: 10/25/2024, Expires: 01/24/2025 [facility] Comment on above: Expected: 10/25/2024, Expires: Start: 10-25-2024 End: 01-24-2025 Comprehensive metabolic 2000 panel - Serum or Plasma COMPREHENSIVE METABOLIC PANEL Lab Routine Rheumatoid arthritis involving both hands with positive rheumatoid factor (HCC) High risk medication use Expected: 10/25/2024, Expires: 01/24/2025 [facility] Comment on above: Expected: 10/25/2024, Expires: Start: 10-25-2024 End: 10-25-2024 [facility] 10/25/2024 7:00 AM EDT [facility] [address] [address] Robert Farias MD [address] [place], [place] [id number] 4 mo f/up, MTX refill, pe [facility] [place] Comment on above: 4 mo f/up, MTX refill, pe Start: 09-27-2024 End: 09-27-2024 ambulatory 09/27/2024 1:30 PM EDT [facility] H[facility]Oncology [address] [place] [address] *[facility] Comment on above: *[facility] Start: 08-12-2024 End: 11-11-2024 BLOOD TB SCREEN, INCUBATED BLOOD TB SCREEN, INCUBATED Lab Routine Rheumatoid arthritis involving both hands with positive rheumatoid factor (HCC) Expected: 08/12/2024, Expires: 11/11/2024 [facility] Work Phone: Comment on above: Expected: 08/12/2024, Expires: Start: 07-25-2024 [facility] Start: 07-25-2024 [facility] Start: 07-23-2024 End: 07-23-2024 ambulatory Hematology/Oncology Comment on above: *[facility]flexis Renflexis - (Auth Pe nding) Start: 07-12-2024 DIABETES SCREEN DIABETES SCREEN [facility] Start: 07-04-2024 End: 07-04-2024 ambulatory 07/04/2024 10:30 AM EDT [facility] Hematology/Oncology [address] [place], [place] [id number] *[facility] Hematology/Oncology Comment on above: *[facility] Start: 07-03-2024 [facility] Start: 07-03-2024 [facility] Start: 06-14-2024 End: 06-14-2024 Patient encounter procedure 06/14/2024 2:40 PM EDT Office Visit [facility] General Arthritis and Rheumatology [address] [address] Robert Farias MD [address] [place] [address] Follow up [facility] General Arthritis and Rheumatology [place] Comment on above: Follow up Start: 06-14-2024 End: 09-13-2024 BLOOD TB SCREEN, INCUBATED BLOOD TB SCREEN, INCUBATED Lab Routine Rheumatoid arthritis involving both hands with positive rheumatoid factor (HCC) Expected: 06/14/2024, Expires: 09/13/2024 [facility] Comment on above: Expected: 06/14/2024, Expires: Start: 06-14-2024 End: 09-13-2024 CBC panel - Blood by Automated count COMPLETE BLOOD COUNT Lab Routine Rheumatoid arthritis involving both hands with positive rheumatoid factor (HCC) Expected: 06/14/2024, Expires: 09/13/2024 [facility] Comment on above: Expected: 06/14/2024, Expires: Start: 06-14-2024 End: 09-13-2024 Comprehensive metabolic 2000 panel - Serum or Plasma COMPREHENSIVE METABOLIC PANEL Lab Routine Rheumatoid arthritis involving both hands with positive rheumatoid factor (HCC) Expected: 06/14/2024, Expires: 09/13/2024 [facility] Comment on above: Expected: 06/14/2024, Expires: Start: 06-14-2024 End: 09-13-2024 Erythrocyte sedimentation rate SEDIMENTATION RATE, WESTERGREN Lab Routine Rheumatoid arthritis involving both hands with positive rheumatoid factor (HCC) Expected: 06/14/2024, Expires: 09/13/2024 [facility] Comment on above: Expected: 06/14/2024, Expires: Start: 06-03-2024 End: 06-03-2024 ambulatory 06/03/2024 12:00 PM EDT Infusion Center Hematology/Oncology [address] [place], [place] [id number] [facility] - (Auth Pending) Hematology/Oncology Comment on above: [facility] - (Auth Pending) Start: 05-27-2024 Patient discharge [facility] Start: 05-27-2024 Venous catheter care management [facility] Start: 05-27-2024 Care regimes management [facility] Start: 05-27-2024 Notification of physician [facility] Start: 05-27-2024 Admission procedure [facility] Start: 05-27-2024 Assessment of risk of venous thromboembolism [facility] Start: 05-27-2024 Incentive spirometry [facility] Start: 05-27-2024 Insertion of catheter into peripheral vein [facility] Start: 05-27-2024 Measuring intake and output [facility] Start: 05-27-2024 Providing care according to standard [facility] Start: 05-27-2024 Provision of activity privileges [facility] Start: 05-27-2024 Introduction of urinary catheter [facility] Start: 05-27-2024 Oxygen therapy [facility] Start: 05-27-2024 Referral to service [facility] Start: 05-27-2024 End: 05-27-2024 [facility] Start: 05-23-2024 End: 05-23-2024 ambulatory 05/23/2024 10:30 AM EDT Infusion Center Hematology/Oncology [address] [place] [address] *[facility] Hematology/On[facility] Comment on above: *[facility] Start: 04-15-2024 Colonoscopy w/biopsy single/multiple COLONOSCOPY AND BIOPSY [facility] Start: 04-15-2024 Egd transoral biopsy single/multiple EGD BIOPSY SINGLE/MULTIPLE [facility] Start: 04-15-2024 Venous catheter care management [facility] Start: 04-15-2024 Irrigation of vascular catheter [facility] Start: 04-15-2024 Patient discharge [facility] Start: 04-13-2024 DIABETES SCREEN DIABETES SCREEN [facility] Start: 04-11-2024 End: 04-11-2024 ambulatory 04/11/2024 10:30 AM EST Infusion Center Hematology/Oncology [address] [place], [place] [id number] *[facility] Hematology/Oncology Comment on above: *[facility] Start: 03-11-2024 [facility] Start: 03-11-2024 Venous catheter care management [facility] Start: 03-10-2024 [facility] Start: 02-29-2024 End: 02-29-2024 ambulatory 02/29/2024 10:30 AM EST Infusion Center Hematology/Oncology [address] [place], [place] [id number] *[facility] Hematology/Oncology Comment on above: *[facility] Start: 02-16-2024 End: 02-16-2024 ambulatory 02/16/2024 10:30 AM EST Infusion Center Hematology/Oncology [address] [place], [place] [id number] *[facility] Hematology/Oncology Comment on above: *[facility] Start: 02-09-2024 Venous catheter care management [facility] Start: 02-09-2024 [facility] Start: 02-09-2024 End: 02-09-2024 [facility] Start: 02-05-2024 End: 02-05-2024 Patient encounter procedure 02/05/2024 9:00 AM EST [facility] General Arthritis and Rheumatology [address] [address] Robert Farias MD [address] [place] [address] 4 months [facility] Arthritis and Rheumatology [place] Comment on above: 4 months Start: 01-24-2024 Patient referral to dietitian [facility] Start: 01-20-2024 End: 04-20-2024 Cobalamin (Vitamin B12) [Mass/volume] in Serum or Plasma VITAMIN B12 Lab Routine Anemia, chronic disease Expected: 01/20/2024, Expires: 04/20/2024 [facility] Comment on above: Expected: 01/20/2024, Expires: Start: 01-20-2024 End: 04-20-2024 Ferritin [Mass/volume] in Serum or Plasma FERRITIN Lab Routine Anemia, chronic disease Expected: 01/20/2024, Expires: 04/20/2024 [facility] Comment on above: Expected: 01/20/2024, Expires: Start: 01-20-2024 End: 04-20-2024 Folate [Mass/volume] in Serum or Plasma FOLATE, SERUM Lab Routine Anemia, chronic disease Expected: 01/20/2024, Expires: 04/20/2024 [facility] Comment on above: Expected: 01/20/2024, Expires: Start: 01-20-2024 End: 04-20-2024 Iron and Iron binding capacity panel - Serum or Plasma IRON AND TIBC Lab Routine Anemia, chronic disease Expected: 01/20/2024, Expires: 04/20/2024 [facility] Work Phone: Comment on above: Expected: 01/20/2024, Expires: Start: 01-18-2024 End: 01-18-2024 ambulatory 01/18/2024 9:00 AM EST Infusion Center Hematology/Oncology [address] [place] [address] *[facility] Hematology/Oncology Comment on above: *[facility] Start: 01-17-2024 Patient referral [facility] Work Phone: Start: 12-29-2023 End: 12-29-2023 ambulatory 12/29/2023 10:30 AM EDT Infusion Center Hematology/Oncology [address] [place] [address] *[facility] Hematology/Oncology Comment on above: *[facility] Start: 11-10-2023 End: 11-10-2023 ambulatory 11/10/2023 10:30 AM EDT Infusion Center Hematology/Oncology [address] [place], [place] [id number] *[facility] Hematology/Oncology Comment on above: *[facility] Start: 11-05-2023 Covid-19 Vaccine () Covid-19 Vaccine () [facility] Start: 11-05-2023 Covid-19 Vaccine () Covid-19 Vaccine () [facility] Start: 11-05-2023 Influenza vaccination Influenza Vaccine (#1) [facility] Start: 09-29-2023 End: 09-29-2023 Patient encounter procedure 09/29/2023 2:20 PM EDT Office Visit [facility] [place] General Arthritis and Rheumatology [address] [place] [id number] Robert Farias MD [address] [place], [place] [id number] Follow up [facility] [place] [facility] Arthritis and Rheumatology [place] Comment on above: Follow up Start: 09-22-2023 End: 09-22-2023 ambulatory 09/22/2023 10:30 AM EDT Infusion Center Hematology/Oncology [address] [place], [place] [id number] *[facility] Hematology/Oncology Comment on above: *[facility] Start: 09-15-2023 End: 09-15-2023 Patient encounter procedure 09/15/2023 2:40 PM EDT Office Visit [facility] [place] General Arthritis and Rheumatology [address] [id number] Robert Farias MD [address] [place], [place] [id number] Follow up [facility] [place] [facility] Ar[facility]ritis and Rheumatology [place] Comment on above: Follow up Start: 08-04-2023 End: 08-04-2023 ambulatory Hematology/Oncology Comment on above: *[facility] - (Auth Pe nding) Start: 06-16-2023 End: 09-15-2023 BLOOD TB SCREEN, INCUBATED [facility] Work Phone: Comment on above: Expected: 06/16/2023, Expires: Start: 05-25-2023 Lipid 1996 panel - Serum or Plasma Lipid Screening [facility] Start: 05-25-2023 Lipid panel Lipid Screening [facility] Start: 05-25-2023 LIPID SCREEN LIPID SCREEN [facility] Start: 04-17-2023 End: 07-17-2023 BLOOD TB SCREEN BLOOD TB SCREEN Lab Routine Rheumatoid arthritis involving both hands with positive rheumatoid factor (HCC) Expected: 04/17/2023, Expires: 07/17/2023 [facility] Work Phone: Comment on above: Expected: 04/17/2023, Expires: Start: 04-17-2023 End: 07-17-2023 CBC W Auto Differential panel - Blood CBC + DIFF Lab Routine Rheumatoid arthritis involving both hands with positive rheumatoid factor (HCC) Expected: 04/17/2023, Expires: 07/17/2023 [facility] Work Phone: Comment on above: Expected: 04/17/2023, Expires: Start: 04-17-2023 End: 07-17-2023 Comprehensive metabolic 2000 panel - Serum or Plasma COMP METABOLIC PANEL Lab Routine Rheumatoid arthritis involving both hands with positive rheumatoid factor (HCC) Expected: 04/17/2023, Expires: 07/17/2023 [facility] Work Phone: Comment on above: Expected: 04/17/2023, Expires: Start: 03-09-2023 Covid-19 Vaccine () Covid-19 Vaccine () [facility] Start: 03-06-2023 Behavioral Health Screening Behavioral Health Screening [facility] Start: 03-06-2023 Depression Assessment Depression Assessment [facility] Start: 12-26-2022 End: 03-27-2023 CBC W Auto Differential panel - Blood CBC + DIFF Lab Routine Rheumatoid arthritis involving both hands with positive rheumatoid factor (HCC) Expected: 12/26/2022, Expires: 03/27/2023 [facility] Work Phone: Comment on above: Expected: 12/26/2022, Expires: 4 Start: 12-26-2022 End: 03-27-2023 Comprehensive metabolic 2000 panel - Serum or Plasma COMP METABOLIC PANEL Lab Routine Rheumatoid arthritis involving both hands with positive rheumatoid factor (HCC) Expected: 12/26/2022, Expires: 03/27/2023 [facility] Work Phone: Comment on above: Expected: 12/26/2022, Expires: 4 Start: 12-26-2022 End: 03-27-2023 Erythrocyte sedimentation rate SED RATE WESTERGREN Lab Routine Rheumatoid arthritis involving both hands with positive rheumatoid factor (HCC) Expected: 12/26/2022, Expires: 03/27/2023 [facility] Work Phone: Comment on above: Expected: 12/26/2022, Expires: 4 Start: 11-04-2022 Covid-19 Vaccine () Covid-19 Vaccine () [facility] Start: 11-04-2022 Influenza vaccination [facility] Start: 09-02-2022 End: 11-02-2022 CBC W Auto Differential panel - Blood CBC + DIFF Lab Routine Rheumatoid arthritis involving both hands with positive rheumatoid factor (HCC) Expected: 09/02/2022, Expires: 11/02/2022 [facility] Work Phone: Comment on above: Expected: 09/02/2022, Expires: Start: 09-02-2022 End: 11-02-2022 Comprehensive metabolic 2000 panel - Serum or Plasma COMP METABOLIC PANEL Lab Routine Rheumatoid arthritis involving both hands with positive rheumatoid factor (HCC) Expected: 09/02/2022, Expires: 11/02/2022 [facility] Work Phone: Comment on above: Expected: 09/02/2022, Expires: 3 Start: 09-02-2022 End: 11-02-2022 Erythrocyte sedimentation rate SED RATE WESTERGREN Lab Routine Rheumatoid arthritis involving both hands with positive rheumatoid factor (HCC) Expected: 09/02/2022, Expires: 11/02/2022 [facility] Work Phone: Comment on above: Expected: 09/02/2022, Expires: 3 Start: 03-10-2022 COVID-19 VACCINE (5 - Moderna risk series) COVID-19 VACCINE (5 - Moderna risk series) [facility] Start: 03-06-2022 DEPRESSION ASSESSMENT DEPRESSION ASSESSMENT [facility] Start: 02-04-2022 End: 04-06-2022 CBC panel - Blood by Automated count CBC Lab Routine Rheumatoid arthritis involving both hands with positive rheumatoid factor (HCC) Expected: 02/04/2022, Expires: 04/06/2022 [facility] Work Phone: Comment on above: Expected: 02/04/2022, Expires: 3 Start: 02-04-2022 End: 04-06-2022 Comprehensive metabolic 2000 panel - Serum or Plasma COMP METABOLIC PANEL Lab Routine Rheumatoid arthritis involving both hands with positive rheumatoid factor (HCC) Expected: 02/04/2022, Expires: 04/06/2022 [facility] Work Phone: Comment on above: Expected: 02/04/2022, Expires: 3 Start: 02-04-2022 End: 04-06-2022 Erythrocyte sedimentation rate SED RATE WESTERGREN Lab Routine Rheumatoid arthritis involving both hands with positive rheumatoid factor (HCC) Expected: 02/04/2022, Expires: 04/06/2022 [facility] Work Phone: Comment on above: Expected: 02/04/2022, Expires: 3 Start: 11-04-2021 Influenza vaccination INFLUENZA (#1) [facility] Start: 10-22-2021 End: 12-22-2021 BLOOD TB SCREEN, INCUBATED BLOOD TB SCREEN, INCUBATED Lab Routine Rheumatoid arthritis involving both hands with positive rheumatoid factor (HCC) Expected: 10/22/2021, Expires: 12/22/2021 [facility] Work Phone: Comment on above: Expected: 10/22/2021, Expires: 2 Start: 10-22-2021 End: 12-22-2021 CBC panel - Blood by Automated count CBC Lab Routine Rheumatoid arthritis involving both hands with positive rheumatoid factor (HCC) Expected: 10/22/2021, Expires: 12/22/2021 [facility] Work Phone: Comment on above: Expected: 10/22/2021, Expires: 2 Start: 10-22-2021 End: 12-22-2021 Comprehensive metabolic 2000 panel - Serum or Plasma COMP METABOLIC PANEL Lab Routine Rheumatoid arthritis involving both hands with positive rheumatoid factor (HCC) Expected: 10/22/2021, Expires: 12/22/2021 [facility] Work Phone: Comment on above: Expected: 10/22/2021, Expires: 2 Start: 10-22-2021 End: 12-22-2021 Erythrocyte sedimentation rate SED RATE WESTERGREN Lab Routine Rheumatoid arthritis involving both hands with positive rheumatoid factor (HCC) Expected: 10/22/2021, Expires: 12/22/2021 [facility] Work Phone: Comment on above: Expected: 10/22/2021, Expires: 2 Start: 04-25-2021 COVID-19 VACCINE (4 - Booster for Moderna series) COVID-19 VACCINE (4 - Booster for Moderna series) [facility] Start: 04-17-2021 COVID-19 VACCINE (4 - Booster for Moderna series) COVID-19 VACCINE (4 - Booster for Moderna series) [facility] Start: 03-20-2021 COVID-19 VACCINE (4 - Booster for Moderna series) COVID-19 VACCINE (4 - Booster for Moderna series) [facility] Start: 03-06-2021 DEPRESSION ASSESSMENT DEPRESSION ASSESSMENT [facility] Start: 11-04-2020 [facility] Start: 08-10-2020 End: 08-10-2021 BLOOD TB SCREEN, INCUBATED BLOOD TB SCREEN, INCUBATED Lab Routine Rheumatoid arthritis involving both hands with positive rheumatoid factor (HCC) Expected: 08/10/2020, Expires: 08/10/2021 [facility] Comment on above: Expected: 08/10/2020, Expires: 2 Start: 08-10-2020 End: 08-10-2021 CBC W Auto Differential panel - Blood CBC + DIFF Lab Routine Rheumatoid arthritis involving both hands with positive rheumatoid factor (HCC) Expected: 08/10/2020, Expires: 08/10/2021 [facility] Comment on above: Expected: 08/10/2020, Expires: 2 Start: 08-10-2020 End: 08-10-2021 Comprehensive metabolic 2000 panel - Serum or Plasma COMP METABOLIC PANEL Lab Routine Rheumatoid arthritis involving both hands with positive rheumatoid factor (HCC) Expected: 08/10/2020, Expires: 08/10/2021 [facility] Comment on above: Expected: 08/10/2020, Expires: 2 Start: 08-10-2020 End: 08-10-2021 Erythrocyte sedimentation rate SED RATE WESTERGREN Lab Routine Rheumatoid arthritis involving both hands with positive rheumatoid factor (HCC) Expected: 08/10/2020, Expires: 08/10/2021 [facility] Comment on above: Expected: 08/10/2020, Expires: 2 Start: 08-10-2020 End: 08-10-2021 Hepatitis B virus surface Ab [Presence] in Serum by Immunoassay HEP B SURF AG SCRN Lab Routine Rheumatoid arthritis involving both hands with positive rheumatoid factor (HCC) Expected: 08/10/2020, Expires: 08/10/2021 [facility] Comment on above: Expected: 08/10/2020, Expires: 2 Start: 08-10-2020 End: 08-10-2021 Hepatitis C virus Ab [Presence] in Serum HEP C AB IA W/CONF SCRN Lab Routine Rheumatoid arthritis involving both hands with positive rheumatoid factor (HCC) Expected: 08/10/2020, Expires: 08/10/2021 [facility] Comment on above: Expected: 08/10/2020, Expires: 2 Start: 2020 RSV Vaccine (1 - 1-dose 60+ series) RSV Vaccine (1 - 1-dose 60+ series) [facility] Start: 2020 RSV Vaccine (1 - Risk 60-74 years 1-dose series) RSV Vaccine (1 - Risk 60-74 years 1-dose series) [facility] Start: 06-18-2020 COVID-19 VACCINE (2 - Moderna 2-dose series) COVID-19 VACCINE (2 - Moderna 2-dose series) [facility] Start: 11-18-2019 Shingrix Vaccine (2 of 2) Shingrix Vaccine (2 of 2) [facility] Start: 05-25-2019 Screening for malignant neoplasm of breast Mammogram Screening [facility] Start: 07-24-2018 Pneumococcal vaccination [facility] Start: 2010 Screening for malignant neoplasm of colon [facility] Start: 2010 SHINGRIX VACCINE (1 of 2) SHINGRIX VACCINE (1 of 2) [facility] Start: 2005 COLOGUARD (FIT-DNA) COLOGUARD (FIT-DNA) [facility] Start: 2005 Colonoscopy COLONOSCOPY [facility] Start: 2005 COLORECTAL CANCER SCREENING COLORECTAL CANCER SCREENING [facility] Start: [address] COLONOGRAPHY [facility] Start: 2005 DIABETES SCREEN DIABETES SCREEN [facility] Start: 2005 FECAL OCCULT BLOOD FECAL OCCULT BLOOD [facility] Start: 2005 LIPID SCREEN LIPID SCREEN [facility] Start: 2005 Screening for malignant neoplasm of colon [facility] Start: 2005 SIGMOIDOSCOPY SIGMOIDOSCOPY [facility] Start: 2000 Mammography [facility] Start: 2000 Screening for malignant neoplasm of breast Mammogram Screening [facility] Start: 1990 HPV TESTING HPV TESTING [facility] Start: 1990 Screening for malignant neoplasm of cervix HPV Testing [facility] Start: 1981 PAP TESTING PAP TESTING [facility] Start: 1981 Screening for malignant neoplasm of cervix Pap Testing [facility] Start: 08-01-1979 SHINGRIX VACCINE (1 of 2) SHINGRIX VACCINE (1 of 2) [facility] Start: 08-01-1979 Urine microalbumin profile [facility] Start: 1978 Anxiety Screening Anxiety Screening [facility] Start: 1978 Depression Screening Depression Screening [facility] Start: 1978 HEPATITIS C SCREENING HEPATITIS C SCREENING [facility] Start: 1978 HIV SCREENING HIV SCREENING [facility] Start: 1978 HIV screening HIV Screening [facility] Start: 1972 Adult depression screening assessment DEPRESSION SCREENING [facility] Start: 08-01-1971 Screening for malignant neoplasm of cervix Cervical Cancer Screening [facility] Start: 1966 PNEUMOCOCCAL (1 - PCV) PNEUMOCOCCAL (1 - PCV) [facility] Start: 1966 Pneumococcal vaccination Pneumococcal Vaccine (1 - PCV) [facility] Ambulatory blood pressure recording [facility] LELO BY IFA SCREEN LELO BY IFA SCR EEN Lab Routine Cerebrovascular disease 11/08/2024 1:05 PM EDT [facility] B 2 GPI IGG & IGM B 2 GPI IGG & IGM Lab Routine Cerebrovascular disease 11/08/2024 1:05 PM EDT [facility] Basic metabolic 2008 panel with ionized calcium - Serum or Plasma [facility] Basic metabolic 2008 panel with ionized calcium - Serum or Plasma [facility] BETA 2 GLYCOPROTEIN, IGG BETA 2 GLYCOPROTEIN, IGG Lab Routine Cerebrovascular disease 11/08/2024 1:05 PM EDT [facility] BETA 2 GLYCOPROTEIN, IGM BETA 2 GLYCOPROTEIN, IGM Lab Routine Cerebrovascular disease 11/08/2024 1:05 PM [facility] BLOOD TB SCREEN BLOOD TB SCREEN Lab Routine Rheumatoid arthritis involving both hands with positive rheumatoid factor (HCC) High risk medication use 11/08/2024 1:05 PM T [facility] BLOOD TB SCREEN, INCUBATED BLOOD TB SCREEN, INCUBATED Lab Routine Rheumatoid arthritis involving both hands with positive rheumatoid factor (HCC) 11/19/2021 10:36 AM T [facility] Work Phone: BLOOD TB SCREEN, INCUBATED BLOOD TB SCREEN, INCUBATED Lab Routine Rheumatoid arthritis involving both hands with positive rheumatoid factor (HCC) 08/09/2024 2:08 PM T [facility] Cardiolipin IgA Ab [Units/volume] in Serum by Immunoassay CARDIOLIPIN IGA ABS Lab Routine Cerebrovascular disease 11/08/2024 1:05 PM EDT [facility] CARDIOLIPIN IGG ABS CARDIOLIPIN IGG ABS Lab Routine Cerebrovascular disease 11/08/2024 1:05 PM EDT [facility] Cardiolipin IgG and IgM panel - Serum ANTI-CARDIOLIPIN AB Lab Routine Cerebrovascular disease 11/08/2024 1:05 PM EDT [facility] CARDIOLIPIN IGM ABS CARDIOLIPIN IGM ABS Lab Routine Cerebrovascular disease 11/08/2024 1:05 PM [facility] CBC W Auto Different ial panel - Blood CBC + DIFF Lab Routine Rheumatoid arthritis involving both hands with positive rheumatoid factor (HCC) [facility] End: 09-21-2024 CBC W Auto Differential panel - Blood COMPLETE BLOOD COUNT AND DIFFERENTIAL Lab Routine Rheumatoid arthritis involving both hands with positive rheumatoid factor (HCC) Every 3 months for 4 Occurrences starting 09/22/2023 until 09/21/2024, 1 completed [facility] Work Phone: Comment on above: Every 3 months for 4 Occurrences startin g 09/22/2023 until 09/21/2024, 1 completed End: 01-17-2025 CBC W Auto Differential panel - Blood COMPLETE BLOOD COUNT AND DIFFERENTIAL Lab Routine Rheumatoid arthritis involving both hands with positive rheumatoid factor (HCC) Every 3 months for 4 Occurrences starting 01/18/2024 until 01/17/2025 [facility] Work Phone: Comment on above: Every 3 months for 4 Occurrences startin g 01/18/2024 until 01/17/2025 CBC W Auto Different ial panel - Blood COMPLETE BLOOD COUNT AND DIFFERENTIAL Lab Routine Rheumatoid arthritis involving both hands with positive rheumatoid factor (HCC) 01/18/2024 8:50 AM [facility] End: 04-11-2025 CBC W Auto Differential panel - Blood COMPLETE BLOOD COUNT AND DIFFERENTIAL Lab Routine Rheumatoid arthritis involving both hands with positive rheumatoid factor (HCC) Every 3 months for 4 Occurrences starting 04/11/2024 until 04/11/2025 [facility] Work Phone: Comment on above: Every 3 months for 4 Occurrences startin g 04/11/2024 until 04/11/2025 End: 08-09-2025 CBC W Auto Differential panel - Blood COMPLETE BLOOD COUNT AND DIFFERENTIAL Lab Routine Rheumatoid arthritis involving both hands with positive rheumatoid factor (HCC) Every 3 months for 4 Occurrences starting 08/09/2024 until 08/09/2025 [facility] Work Phone: Comment on above: Every 3 months for 4 Occurrences startin g 08/09/2024 until 08/09/2025 End: 11-08-2025 CBC W Auto Differential panel - Blood COMPLETE BLOOD COUNT AND DIFFERENTIAL Lab Routine Rheumatoid arthritis involving both hands with positive rheumatoid factor (HCC) Every 3 months for 4 Occurrences starting 11/08/2024 until 11/08/2025 [facility] Work Phone: Comment on above: Every 3 months for 4 Occurrences startin g 11/08/2024 until 11/08/2025 Complement C3 [Mass/volume] in Serum or Plasma C3 COMPLEMENT Lab Routine Cerebrovascular disease 11/08/2024 1:05 PM EDT [facility] Complement C4 [Mass/volume] in Serum or Plasma C4 COMPLEMENT Lab Routine Cerebrovascular disease 11/08/2024 1:05 PM EDT [facility] Comprehensive metabo lic 2000 panel - Serum or Plasma COMP METABOLIC PANEL Lab Routine Rheumatoid arthritis involving both hands with positive rheumatoid factor (HCC) [facility] End: 09-21-2024 Comprehensive metabolic 2000 panel - Serum or Plasma COMPREHENSIVE METABOLIC PANEL Lab Routine Rheumatoid arthritis involving both hands with positive rheumatoid factor (HCC) Every 3 months for 4 Occurrences starting 09/22/2023 until 09/21/2024, 1 completed [facility] Comment on above: Every 3 months for 4 Occurrences startin g 09/22/2023 until 09/21/2024, 1 completed End: 01-17-2025 Comprehensive metabolic 2000 panel - Serum or Plasma COMPREHENSIVE METABOLIC PANEL Lab Routine Rheumatoid arthritis involving both hands with positive rheumatoid factor (HCC) Every 3 months for 4 Occurrences starting 01/18/2024 until 01/17/2025 [facility] Comment on above: Every 3 months for 4 Occurrences startin g 01/18/2024 until 01/17/2025 Comprehensive metabo lic 2000 panel - Serum or Plasma COMPREHENSIVE METABOLIC PANEL Lab Routine Rheumatoid arthritis involving both hands with positive rheumatoid factor (HCC) 01/18/2024 8:50 AM [facility] End: 04-11-2025 Comprehensive metabolic 2000 panel - Serum or Plasma COMPREHENSIVE METABOLIC PANEL Lab Routine Rheumatoid arthritis involving both hands with positive rheumatoid factor (HCC) Every 3 months for 4 Occurrences starting 04/11/2024 until 04/11/2025 [facility] Comment on above: Every 3 months for 4 Occurrences startin g 04/11/2024 until 04/11/2025 End: 08-09-2025 Comprehensive metabolic 2000 panel - Serum or Plasma COMPREHENSIVE METABOLIC PANEL Lab Routine Rheumatoid arthritis involving both hands with positive rheumatoid factor (HCC) Every 3 months for 4 Occurrences starting 08/09/2024 until 08/09/2025 [facility] Comment on above: Every 3 months for 4 Occurrences startin g 08/09/2024 until 08/09/2025 End: 11-08-2025 Comprehensive metabolic 2000 panel - Serum or Plasma COMPREHENSIVE METABOLIC PANEL Lab Routine Rheumatoid arthritis involving both hands with positive rheumatoid factor (HCC) Every 3 months for 4 Occurrences starting 11/08/2024 until 11/08/2025 [facility] Comment on above: Every 3 months for 4 Occurrences startin g 11/08/2024 until 11/08/2025 End: 07-14-2025 DXA Skeletal system.axial Views for bone density DXA-AXIAL SKELETON Radiology Routine Asymptomatic postmenopausal status 1 Occurrences starting 06/14/2024 until 07/14/2025 [facility] Work Phone: Comment on above: 1 Occurrences starting 06/14/2024 until 07/14/2025 End: 11-24-2025 DXA Skeletal system.axial Views for bone density DXA-AXIAL SKELETON Radiology Routine Asymptomatic postmenopausal status 1 Occurrences starting 10/25/2024 until 11/24/2025 [facility] Comment on above: 1 Occurrences starting 10/25/2024 until 11/24/2025 End: 03-06-2023 DXA-AXIAL SKELETON DXA-AXIAL SKELETON Radiology Routine Asymptomatic postmenopausal status 1 Occurrences starting 02/04/2022 until 03/06/2023 [facility] Work Phone: Comment on above: 1 Occurrences starting 02/04/2022 until 03/06/2023 Erythrocyte sedimentation rate SED RATE WESTERGREN Lab Routine Rheumatoid arthritis involving both hands with positive rheumatoid factor (HCC) 11/19/2021 10:36 AM EDT [facility] Work Phone: Erythrocyte sedimentation rate SED RATE WESTERGREN Lab Routine Rheumatoid arthritis involving both hands with positive rheumatoid factor (HCC) 03/31/2022 10:47 AM EST [facility] Work Phone: Erythrocyte sedimentation rate SED RATE WESTERGREN Lab Routine Rheumatoid arthritis involving both hands with positive rheumatoid factor (HCC) 05/20/2022 9:45 AM EDT [facility] Work Phone: Erythrocyte sedimentation rate SED RATE WESTERGREN Lab Routine Rheumatoid arthritis involving both hands with positive rheumatoid factor (HCC) 01/20/2023 10:51 AM EST [facility] Work Phone: Erythrocyte sedimentation rate SEDIMENTATION RATE, WESTERGREN Lab Routine Rheumatoid arthritis involving both hands with positive rheumatoid factor (HCC) 08/09/2024 2:08 PM EDT [facility] Work Phone: Hemoglobin.gastroint glynn nal.lower [Presence] in Stool by Immunoassay IMMUNOCHEMICAL FECAL OCCULT BLOOD TEST Lab Routine Anemia, chronic disease Ordered: 01/20/2024 [facility] Comment on above: Ordered: 01/20/2024 IR PERIPH INSERTED T [place] ([place]) IR PERIPH INSERTED T[place] ([place] Radiology Routine Rheumatoid arthritis involving both hands with positive rheumatoid factor (HCC) Ordered: 07/19/2021 [facility] Work Phone: Comment on above: Ordered: 07/19/2021 Patient Education [facility] Work Phone: Patient referral [facility] Work Phone: [facility] Immunizations Immunization Date Immunization Notes Care Provider Robby snowden 01-12-2024 influenza, seasonal, injectable, preservative free Paul Greco MD Work Phone: [facility] 01-12-2024 influenza virus vaccine, unspecified formulation Chair Truro [facility] 01-12-2023 influenza virus vaccine, unspecified formulation Becca Garcia PA-C Work Phone: [facility] 01-13-2022 influenza virus vaccine, unspecified formulation Robert Farias MD Work Phone: [facility] Payers Date Payer Category Payer Unknown [id number] 2024 Self-pay [id number] 2020 Private Health Insurance [facility] [id number] 2020 Unknown [id number]. 7.3.254606.315 2020 Unknown [id number]. 1.13.159.2. 7.3.250905.315 2020 Unknown [id number] 1960 Unknown [id number] 2.840.1.705546.3.579.2. 627 Medicaid MEDICAID [id number] Unknown [id number] .840.1.111159.3.579.2. 462 Unknown [id number] 2.840.1.569101.3.579.2. 462 Unknown [id number] 2.16.840.1.735050.3.579.2. 462 Unknown [id number] 2.16.840.1.668772.3.579.2. 462 Unknown [id number] 2.16.840.1.459332.3.579.2. 462 Unknown [id number] 2.16.840.1.054942.3.579.2. 462 Unknown [id number] 2.16.840.1.191329.3.579.2. 462 Unknown [id number] 2.16.840.1.270280.3.579.2. 462 Unknown [id number] 2.16.840.1.377679.3.579.2. 462 Unknown [id number] 2.16.840.1.330766.3.579.2. 462 Unknown [id number] 2.16.840.1.593733.3.579.2. 462 Unknown [id number] 2.16.840.1.783050.3.579.2. 462 Unknown [id number] 2.16.840.1.994664.3.579.2. 462 Unknown [id number] 2.16.840.1.696676.3.579.2. 462 Unknown [id number] 2.16.840.1.481205.3.579.2. 462 Unknown [id number] 2.16.840.1.229464.3.579.2. 462 Unknown [id number] 2.16.840.1.797138.3.579.2. 462 Unknown [id number] 2.16.840.1.978931.3.579.2. 462 Unknown [id number] 2.16.840.1.731500.3.579.2. 462 Unknown [id number] 2.16.840.1.639793.3.579.2. 462 Unknown [id number] 2.16.840.1.197367.3.579.2. 462 Unknown [id number] 2.16.840.1.554726.3.579.2. 462 Unknown [id number] 2.16.840.1.836288.3.579.2. 462 Unknown [id number] 2.16.840.1.330375.3.579.2. 462 Unknown [id number] 2.16.840.1.148108.3.579.2. 462 Unknown [id number] 2.16.840.1.110613.3.579.2. 462 Unknown [id number] 2.16.840.1.320186.3.579.2. 462 Unknown [id number] 2.16.840.1.945627.3.579.2. 462 Unknown [id number] 2.16.840.1.670925.3.579.2. 462 Unknown [id number] 2.16840.1.363514.3.579.2. 462 Unknown [id number] 2.16.840.1.749356.3.579.2. 462 Unknown [id number] 2.16.840.1.131524.3.579.2. 462 Unknown [id number] 2.16.840.1.251641.3.579.2. 462 Unknown [id number] 2.16840.1.754001.3.579.2. 462 Unknown [id number] 2.16840.1.190836.3.579.2. 462 Unknown [id number] 2.16840.1.139414.3.579.2. 462 Unknown [id number] 2.16840.1.901308.3.579.2. 462 Social History Date Type Detail Facility Start: 06-19-2020 End: 09-29-2023 Tobacco smoking status ILIS Never smoker [facility] Start: 06-19-2020 End: 09-29-2023 Tobacco use and exposure Never used [facility] Start: 06-19-2020 End: 06-14-2024 Alcohol intake Ex-drinker (finding) [facility] Start: 1960 Sex Assigned At Not on file C [facility] Start: 06-15-2021 End: 10-22-2021 Exposure to SARS-CoV-2 (event) Not sure [facility] Start: 1960 Sex Assigned At Female [facility] Start: 10-22-2021 End: 07-08-2022 History of Social function [facility] Start: 10-22-2021 End: 07-08-2022 Tobacco use panel [facility] Start: 04-07-2020 National Score (1-10 0), lower number is lower risk 74 [facility] Start: 05-16-2024 End: 05-27-2024 Sex Female (finding) [facility] Medical Equipment Procedure Code Equipment Code Equipment Origin al Text Equipment Identifier Dates Port Powerport I sp Mri 8fr Implantable Infusion 1 Lumen Attachable - [id number] Start: 09-21-2021 Goals Date Patient Goal Desired Activity /State Functional Status Date Assessment Result Facility 05-27-2024 Functional status Ambulates;Bathroom Priv ilege [facility] Work Phone: Mental Status Date Assessment Result Facility 07-25-2024 Cognitive function Voice/Name [facility] Work Phone: 07-03-2024 [facility] Work Phone: 05-27-2024 Cognitive function Voice/Name [facility] Work Phone: 04-15-2024 Cognitive function Level Of Cons ciousness Sedated [facility] Work Phone: 04-15-2024 Cognitive function Patient Orien tation Person;Place;Time [facility] Work Phone: 03-10-2024 Cognitive function Awake;Alert;A ppropriate;Follo ws Commands [facility] Work Phone: 02-09-2024 Cognitive function Voice/Name [facility] Work Phone: Clinical Notes 06-19-2020 to 11-11-2024 Telephone Encounter - Ashley Bedoya MA - 11/11/2024 11:58 AM EDTTelephone Encounter - Ashley Bedoya MA - 11/11/2024 11:58 AM EDTTelephone Encounter - Balbina Alford - 10/30/2024 2:53 PM EDT Note Date & Type Note Facility 11-11-2024 Telephone encounter Note Pharmacy sent a [employer] message requesting the following refill. Requested Prescriptions Pending Prescriptions Disp Refills hydrOXYchloroQUINE (PLAQUENIL) 200 mg tablet 90 tablet 0 Sig: Take 1 tablet by mouth once daily. tiZANidine (ZANAFLEX) 2 mg tablet 30 tablet 2 Sig: Take 1 tablet by mouth daily at bedtime. Patient last appointment: 10/25/2024 Next Appointment: 02/26/2025 Patient Phone numbers: [phone] (home) Request is for script(s) to be escript to pharmacy. Ashley Bedoya MA [facility] 11-11-2024 Miscellaneous Notes Pharmacy sent a [employer] message requesting the following refill. Requested Prescriptions Pending Prescriptions Disp Refills hydrOXYchloroQUINE (PLAQUENIL) 200 mg tablet 90 tablet 0 Sig: Take 1 tablet by mouth once daily. tiZANidine (ZANAFLEX) 2 mg tablet 30 tablet 2 Sig: Take 1 tablet by mouth daily at bedtime. Patient last appointment: 10/25/2024 Next Appointment: 02/26/2025 Patient Phone numbers: [phone] (home) Request is for script(s) to be escript to pharmacy. Ashley Bedoya MA documented in this encounter [facility] 10-30-2024 Telephone encounter Note Kirill Esquivel - PENDING [id number] [facility] Marketplace/Portal Balbina Rocío, Area Field Worker [facility] 10-30-2024 Miscellaneous Notes Sierra Truro - PENDING [id number] [facility] Marketplace/Portal Balbina Alford, Area Field Worker documented in this encounter [facility] 10-25-2024 Instructions Robert Farias MD - 10/25/2024 [...] usual activities immediately. documented in this encounter [facility] 10-25-2024 Note HNO ID: [id number] Author: ROBERT FARIAS MD Service: ? Author [...] visit. Either the patient or their legal student services representative has been informed of the risks [...] today. First visit 06/19/2020 ( moved from [place] RA and wants treatment for that 06/24 ( Q 4 months )) [place] coronary artery disease cannot use NSAID.. RA [...] 2nd 3 rd MCP ) Dr. Mendes [place] [facility] [place] [facility] : 01/2020 last [...] NSAID ) (( 01/2024 NSAID stopped as [place] ) (( no GI bleed, stool blood [...] :: hospitalized pneumonia 2023, found to have [place] ) ( NSTEMI ) 2023 CTA chest : no PE, left lung base infiltrate 2023 EC (more content not included)... [facility] 10-25-2024 History of Presen t illness Narrative [...] visit. Either the patient or their legal student services representative has been informed of the risks [...] today. First visit 06/19/2020 ( [place] ) RA and wants treatment for that 06/24 ( Q 4 months )) [place] coronary artery disease cannot use NSAID.. RA [...] 2nd 3 rd MCP ) Dr. Mendes [place] [facility] [place] [facility] : 01/2020 last [...] NSAID ) (( 01/2024 NSAID stopped as [place] ) (( no GI bleed, stool blood [...] :: hospitalized pneumonia 2023, found to have [place] ) ( NSTEMI ) 2023 CTA chest [...] 90 min low impact. 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 ( leukemia age 43 ) 06/24 2 son in [facility] 06/19/2020 Brother 2 healthy 06/19/2020 3 sister healthy 06/19/2020 Mother 58 ( CHF cancer spinal from breast ) 06/19/2020 ( did not smoke ) Father brain aneurysm 67 06/19/2020 ( did smoke) 02/23 COVID cough, sneezing, sore throat, no temp etc . 03/2023 COVID pneumonia and [place] documented in this encounter [facility] 10-22-2024 Telephone encounter Note [employer], [place] - [facility] [id number] [facility] Balbina Alford, Area Field Worker [facility] 10-22-2024 Miscellaneous Notes Ripect, [place] - PENDING [id number] [facility] Balbina Alford Area Field Worker documented in this encounter [facility] 10-07-2024 Telephone encounter Note Pharmacy sent a [employer] message requesting the following refill. Requested Prescriptions Pending Prescriptions Disp Refills folic acid 1 mg tablet 90 tablet 1 Sig: Take 1 tablet by mouth once daily. Patient last appointment: 06/14/2024 Next Appointment: 10/25/2024 Patient Phone numbers: [phone] (home) Request is for script(s) to be escript to pharmacy. Ashley Bedoya MA [facility] 10-07-2024 Miscellaneous Notes Pharmacy sent a [employer] message requesting the following refill. Requested Prescriptions Pending Prescriptions Disp Refills folic acid 1 mg tablet 90 tablet 1 Sig: Take 1 tablet by mouth once daily. Patient last appointment: 06/14/2024 Next Appointment: 10/25/2024 Patient Phone numbers: [phone] (home) Request is for script(s) to be escript to pharmacy. Ashley Bedoya MA documented in this encounter [facility] 08-14-2024 Telephone encounter Note Patient sent a MyChart message requesting the following refill. Requested Prescriptions Pending Prescriptions Disp Refills tiZANidine (ZANAFLEX) 2 mg tablet 30 tablet 2 Sig: Take 1 tablet by mouth daily at bedtime. Patient last appointment: 06/14/2024 Next Appointment: 10/25/2024 Patient Phone numbers: [phone] (home) Request is for script(s) to be escript to pharmacy. Ann Marie Frank MA [facility] 08-14-2024 Miscellaneous Notes Patient sent a MyChart message requesting the following refill. Requested Prescriptions Pending Prescriptions Disp Refills tiZANidine (ZANAFLEX) 2 mg tablet 30 tablet 2 Sig: Take 1 tablet by mouth daily at bedtime. Patient last appointment: 06/14/2024 Next Appointment: 10/25/2024 Patient Phone numbers: [phone] (home) Request is for script(s) to be escript to pharmacy. Ann Marie Frank MA documented in this encounter [facility] 08-14-2024 Telephone encounter Note Patient sent a [employer] message requesting the following refill. On patient's medication list: Sig: take 6 tablets by mouth once every week Requested Prescriptions Pending Prescriptions Disp Refills methotrexate 2.5 mg tablet 72 tablet 1 Patient last appointment: 06/14/2024 Next Appointment: 10/25/24 Patient Phone numbers: [phone] (home) Request is for script(s) to be escript to pharmacy. Ann Marie Frank MA [facility] 08-14-2024 Miscellaneous Notes Patient sent a MyChart message requesting the following refill. On patient's medication list: Sig: take 6 tablets by mouth once every week Requested Prescriptions Pending Prescriptions Disp Refills methotrexate 2.5 mg tablet 72 tablet 1 Patient last appointment: 06/14/2024 Next Appointment: 10/25/24 Patient Phone numbers: [phone] (home) Request is for script(s) to be escript to pharmacy. Ann Marie Frank MA documented in this encounter [facility] 08-12-2024 Note Addended by: ROBERT FARIAS on: 08/12/2024 07:36 PM Modules accepted: Orders [facility] 08-12-2024 Miscellaneous Notes Addended by: ROBERT FARIAS on: 08/12/2024 07:36 PM Modules accepted: Orders Ordered Robert Farias MD Isael from [facility] lab states the TB test will need reordered. The lab did draw the specimen but the tubes were under filled. Brynn Fofana LPN documented in this encounter [facility] 08-12-2024 Telephone encounter Note Ordered Robert Farias MD [facility] 08-12-2024 Telephone encounter Note Isael from [facility] lab states the TB test will need reordered. The lab did draw the specimen but the tubes were under filled. Brynn Fofana LPN [facility] 08-09-2024 Note HNO ID: [id number] Author: RYAN VASQUEZ RN Service: ? Author [...] feet. Pt A/O x 4 with brother (mixer driver) present. She states she has started [...] states she is going to call her sock and stocking ironer and PCP. [facility] 08-09-2024 History of Presen t illness Narrative [...] feet. Pt A/O x 4 with brother (mixer driver) present. She states she has started [...] states she is going to call her sock and stocking ironer and PCP. documented in this encounter [facility] 07-30-2024 Evaluation note Diagnosis Onset Date Resolution Hypertension chronic July 30 8:18am Hypertension chronic October 29, 2024 8:11am [facility] Work Phone: 1(209) 454-816505-15-2025 Telephone encounter Note* Telephone Encounter - Balbina Alford - 07/18/2024 12:14 PM EDT Yue Contrerasw - PENDING [id number] [employer]/Portal Balbina Alford, Area Field Worker [facility]05-15-2025 Miscellaneous Notes* Telephone Encounter - Balbina Alford - 07/18/2024 12:14 PM EDT Yue Contrerasw - PENDING [id number] [employer]/Portal Balbina Alford Area Field Worker [facility] Telephone encounter Note * Telephone Encounter - [...] * GI Upset Stomach pain severe (home) [phone] (cell) Last Office Visit Date: 06/14/2024 Last [facility] Visit: Visit date not found Future Appointment: Visit date not found The patients preferred pharmacy has been captured for this encounter? yes Request is for script(s) to be escript to pharmacy. Brynn Fofana LPN [facility]05-06-2025 Miscellaneous Notes* Telephone Encounter - Brynn Fofana [...] * GI Upset Stomach pain severe (home) [phone] (cell) Last Office Visit Date: 06/14/2024 Last [facility] Visit: Visit date not found Future Appointment: Visit date not found The patients preferred pharmacy has been captured for this encounter? yes Request is for script(s) to be escript to pharmacy. Brynn Fofana LPN [facility] Instructions* Patient Instructions* Robert Farias MD - [...] your usual activities immediately. [facility]25 NoteHNO ID: [id number] Author: ROBERT FARIAS MD Service: ? Author Type: Physician Type: Progress Notes Filed: 06/14/2024 17:16 Note Text: This note was created using Epiphanyriter. Subjective Jaylin Carroll is a 63 year [...] Plan First visit 06/19/2020 ( moved from [place] RA and wants treatment for that 06/24 ( Q 4 months )) [place] coronary artery disease cannot use NSAID.. RA [...] 2nd 3 rd MCP ) Dr. [place] [facility] : 01/2020 last [...] NSAID ) (( 01/2024 NSAID stopped as [place] ) (( no GI bleed, stool blood [...] 2024 coronary artery d (more content not included)...[facility] 06-14-2024 History of Present illness Narrative* Robert Farias MD - 06/14/2024 2:46 PM EDT This note was created using Epiphanyriter. Subjective Jaylin Carroll is a 63 year [...] Plan First visit 06/19/2020 ( [place] RA and wants treatment for that 06/24 ( Q 4 months )) [place] coronary artery disease cannot use NSAID.. RA [...] 2nd 3 rd MCP ) Dr. [place] [facility] : 01/2020 last [...] NSAID ) (( 01/2024 NSAID stopped as [place] ) (( no GI bleed, stool blood [...] :: hospitalized pneumonia 2023, found to have [place] ) ( NSTEMI ) 2023 CTA chest [...] 90 min low impact. 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 ( leukemia age 43 ) 06/24 2 son in [facility] 06/19/2020 Brother 2 healthy 06/19/2020 3 sister healthy 06/19/2020 Mother 58 ( CHF cancer spinal from breast ) 06/19/2020 ( did not smoke ) Father brain aneurysm 67 06/19/2020 ( did smoke) 02/23 COVID cough, sneezing, sore throat, no temp etc . 03/2023 COVID pneumonia and [place] [facility] Telephone encounter Note * Telephone Encounter - Balbina Alford - 05/28/2024 10:09 AM EDT Ben, [place] - PENDING [id number] [facility] Portal Balbina Alford, Area Field Worker [facility]03-25-2025 Miscellaneous Notes* Telephone Encounter - Balbina Alford - 05/28/2024 10:09 AM EDT [employer], [place] - PENDING [id number] [facility] Portal Balbina Alford, Area Field Worker [facility] Discharge summary [facility] Medical Records Department [address] [place] [address] Discharge Summary 05/27/24 1506 MR#: [id number] Acct: [id number] Name: JAYLIN CARROLL Rep #:[id number] : 1960 63 From: Isael Baeza DO PCP: Dr. Paul Greco MD Status:ADM IN Location: [place] [address] Providers Date of Admission: 05/27/24 Date of [...] Neut % (Auto) 50.1, Lymph % (Auto) 35.2,T[place]ferro % (Auto) 10.7 H, Eos % (Auto) [...] Self Care Charges/Coding Visit Charges Inpatient E&M: 03801 Disch Hosp 05/27/24 1512 Cosigner Signature (if applicable): CC: Dr. Paul Greco MD; Dr. Isael Baeza, DO~ Signed [facility]03-24-2025 Consult note [facility] Medical Records Department [address] [place] [address] Counseling Note - Pharmacy 05/27/24 1511 MR#: [id number] Acct: [id number] Name: JAYLIN CARROLL Rep #:[id number] : 1960 63 From: Kat Traylor PCP: Dr. Paul Greco MD Status:ADM IN O Y Location: [place] [address] Pharmacy ND Med Reconciliation Pharmacy Service has performed discharge [...] Signature (if applicable): Date CC: ~ Signed [facility]03-24-2025 Discharge summary [facility] Medical Records Department [address] [place] [address] Instructions for Home/Discharge Instructions 05/27/24 1503 MR#: [id number] Acct: [id number] Name: GLENJAYLIN E Rep #:[id number] : 1960 63 From: Isael Baeza DO [...] MD; Dr. Paul Greco MD ~ Signed [facility]03-24-[facility] History and physical note Author Natalie Gaspar [facility] Note Date/Time May 27, 2024 3:2 8am [facility] Medical Records Department [address] [place] [address] H&P Exam - Hospitalist 05/27/24226 MR#: [id number] Acct: [id number] Name: JAYLIN CARROLL Rep #:[id number] : 1960 63 From: Natalie Gaspar MD PCP: Dr. Paul Greco MD Status:ADM IN O Location: [facility] [id number] HPI - General General Date of [...] future capsule endoscopy. Patient presented to the [facility] ED [facility] initially on 05/26/2024 secondary to history of onset of chest discomfort just as she was getting ready for bed with sudden onset sternal aching nonradiating starting at approximately 7 PM initially sharp and then became more aching /10 in severity with concurrent onset mild lightheadedness [...] at baseline. Upon transfer and evaluation at [facility] upon arrival patient does have reproducible pain. [...] 2 g IV x 1. [facility] Medical History Wears partial dentures Wears glasses [...] to 50% who now presents to the [facility] as a direct admission on 05/27/24 with initiall presentation to the OS ED [facility] initially on 05/26/2024secondary to history of onset [...] at outside facility however initial obtained at [facility] 7 thus unclear if these were truly [...] Code status. Charges/Coding Visit Charges Inpatient E&M: 66160 Init Hosp L3 05/27/24 0328 <Electronically signed by Natalie Gaspar MD> Cosigner Signature (if applicable): CC: Dr. Natalie Gaspar MD; Dr. Paul Greco MD~ Signed [facility] Work Phone: 1(176) 536-933303-24-2025 History and physical note [facility] Medical Records Department [address] [place] [id number] H&P Exam - Hospitalist 05/27/24226 MR#: [id number] Acct: [id number] Name: JAYLIN CARROLL Rep #:[id number] : 1960 63 From: Natalie Gaspar MD PCP: Dr. Paul Greco MD Status:ADM IN O Location: [place] [address] HPI - General General Date of Admission: [...] dyspnea or diaphoresis to the outside [facility] ED. EMS administered full-strength aspirin [...] at baseline. Upon transfer and evaluation at [facility] upon arrival patient does have reproducible pain. [...] 2 g IV x 1. [facility] Medical History Wears partial dentures Wears glasses [...] to 50% who now presents to the [facility] as a direct admission on 05/27/24 with initiall presentation to the OS ED [facility] initially on 05/26/2024secondary to history of [...] at outside facility however initial obtained at [facility] 7 thus unclear if these were truly [...] Code status. Charges/Coding Visit Charges Inpatient E&M: 19831 Init Hosp L3 05/27/24 0328 Cosigner Signature (if applicable): CC: Dr. Natalie Gaspar MD; Dr. Paul Greco MD~ Signed [facility]02-25-2025 Evaluation note* Diagnosis Onset Date Resolution Status Admit Date Anemia acute April 30, 2024 7:58am Chest pain inactive May 27 1:28am Anemia acute May 29 7:45am Hypertension chronic May 31, 2024 9:02am Chest pain inactive May 31 9:02am Hypertension chronic July 30 8:18am [facility] Work Phone: 1(921) 168-906202-10-2025 Evaluation note* Diagnosis Onset Date Resolution Status Admit Date Anemia acute April 15, 2024 10:42am Anemia acute April 30, 2024 7:58am Chest pain inactive May 27 1:28am Anemia acute May 29 7:45am Hypertension chronic May 31, 2024 9:02am Chest pain inactive May 31 9:02am Hypertension chronic July 30 8:18am [facility] Work Phone: 1(237) 417-166202-10-2025 [facility]02-05-2025 Telephone encounter Note* Telephone Encounter - Ashley Bedoya MA - 04/10/2024 2:15 PM EST Pharmacy sent a [employer] message requesting the following refill. Requested Prescriptions Pending Prescriptions Disp Refills hydrOXYchloroQUINE (PLAQUENIL) 200 mg tablet [Pharmacy Med Name: HYDROXYCHLOROQUINE 200 MG TAB] 90 tablet 0 Sig: take 1 tablet by mouth once daily Patient last appointment: 02/05/2024 Next Appointment: 06/14/2024 Patient Phone numbers: [phone] (home) Request is for script(s) to be escript to pharmacy. Ashley Bedoya MA [facility]02-05-2025 Miscellaneous Notes* Telephone Encounter - Ashley Bedoya MA - 04/10/2024 2:15 PM EST Pharmacy sent a [employer] message requesting the following refill. Requested Prescriptions Pending Prescriptions Disp Refills hydrOXYchloroQUINE (PLAQUENIL) 200 mg tablet [Pharmacy Med Name: HYDROXYCHLOROQUINE 200 MG TAB] 90 tablet 0 Sig: take 1 tablet by mouth once daily Patient last appointment: 02/05/2024 Next Appointment: 06/14/2024 Patient Phone numbers: [phone] (home) Request is for script(s) to be escript to pharmacy. Ashley Bedoya MA documented in [facility] encounterW[facility]02-[facility]-2025 Telephone encounter Note * Telephone Encounter - Ashley Bedoya MA - 04/08/2024 8:10 AM EST Ignore, already approved. [facility]02-03-2025 Miscellaneous Notes* Telephone Encounter - Ashley Bedoya MA - 04/08/2024 8:10 AM EST Ignore, already approved. documented in this encounterWooster [facility]02-03-2025 Telephone encounter Note * Telephone Encounter - Ashley Bedoya MA - 04/08/2024 8:09 AM EST Pharmacy sent a [employer] message requesting the following refill. Requested Prescriptions Pending Prescriptions Disp Refills tiZANidine (ZANAFLEX) 2 mg tablet 30 tablet 2 Sig: Take 1 tablet by mouth daily at bedtime. Patient last appointment: 02/05/2024 Next Appointment: 06/14/2024 Patient Phone numbers: [phone] (home) Request is for script(s) to be escript to pharmacy. Ashley Bedoya MA [facility]02-03-2025 Miscellaneous Notes* Telephone Encounter - Ashley Bedoya MA - 04/08/2024 8:09 AM EST Pharmacy sent a [employer] message requesting the following refill. Requested Prescriptions Pending Prescriptions Disp Refills tiZANidine (ZANAFLEX) 2 mg tablet 30 tablet 2 Sig: Take 1 tablet by mouth daily at bedtime. Patient last appointment: 02/05/2024 Next Appointment: 06/14/2024 Patient Phone numbers: [phone] (home) Request is for script(s) to be escript to pharmacy. Ashley Bedoya MA documented in this encounterW[facility]01-27-2025 Telephone encounter Note * Telephone Encounter - Ashley Bedoya MA - 04/01/2024 9:08 AM EST Pharmacy sent a [employer] message requesting the following refill. Requested Prescriptions Pending Prescriptions Disp Refills folic acid 1 mg tablet [Pharmacy Med Name: FOLIC ACID 1 MG TABLET] 90 tablet 1 Sig: take 1 tablet by mouth once daily Patient last appointment: 02/05/2024 Next Appointment: 06/14/2024 Patient Phone numbers: [phone] (home) Request is for script(s) to be escript to pharmacy. Ashley Bedoya MA [facility]01-27-2025 Miscellaneous Notes* Telephone Encounter - Ashley Bedoya MA - 04/01/2024 9:08 AM EST Pharmacy sent a [employer] message requesting the following refill. Requested Prescriptions Pending Prescriptions Disp Refills folic acid 1 mg tablet [Pharmacy Med Name: FOLIC ACID 1 MG TABLET] 90 tablet 1 Sig: take 1 tablet by mouth once daily Patient last appointment: 02/05/2024 Next Appointment: 06/14/2024 Patient Phone numbers: [phone] (home) Request is for script(s) to be escript to pharmacy. Ashley Bedoya MA documented in this encounterWo[facility]12-03-2024 Evaluation note* Diagnosis Onset Date Resolution Status Admit Date Anemia acute February 06, 2024 9:25am Anemia acute February 26, 2024 9:09am Hypertension chronic February 9:09am NSTEMI, initial episode of care resolved February 25, 2 024 9:09am Anemia acute April 15, 2024 10:42am Anemia acute April 30, 2024 7:58am [facility] Work Phone: 1(904) 331-878512-03-2024 Evaluation note* Diagnosis Onset Date Resolution Status Admit Date Anemia acute February 06, 2024 9:25am Anemia acute February 26, 2024 9:09am Hypertension chronic February 9:09am NSTEMI, initial episode of care resolved February 25, 2 024 9:09am Anemia acute April 15, 2024 10:42am Anemia acute April 30, 2024 7:58am Chest pain acute May 27 1:28am [facility] Work Phone: 1(418) 624-525712-02-2024 NoteHNO ID: [id number] Author: ROBERT FARIAS MD Service: ? Author Type: Physician Type: Progress Notes Filed: 04/13/2024 12:51 Note Text: This note was created using NoteWriter. Subjective Jaylin Carroll is a 63 year old female. [place] (( was sick with pneumonia and was [...] Plan First visit 06/19/2020 ( moved from [place] ) RA and wants treatment for that 06/24 ( Q 4 months )) [place] coronary artery disease cannot use NSAID RA [...] 2nd 3 rd MCP ) Dr. Mendes [place] [facility] [place] [facility] : 01/2020 last [...] NSAID ) (( 01/2024 NSAID stopped as [place] ) (( no GI bleed, stool blood [...] :: hospitalized pneumonia 2023, found to have [place] ) ( NSTEMI ) 2023 CTA chest [...] last 2023 cologuard neg (more content not included)...[facility] 02-05-2024 History of Present illness Narrative* Robert Farias MD - 02/05/2024 9:18 AM EST This note was created using NoteWriter. Subjective Jaylin Carroll is a 63 year old female. [place] (( was sick with pneumonia and was [...] Plan First visit 06/19/2020 ( moved from [place] ) RA and wants treatment for that 06/24 ( Q 4 months )) [place] coronary artery disease cannot use NSAID RA [...] 2nd 3 rd MCP ) Dr. Mendes [place] [facility] [place] [facility] : 01/2020 last [...] NSAID ) (( 01/2024 NSAID stopped as [place] ) (( no GI bleed, stool blood [...] :: hospitalized pneumonia 2023, found to have [place] ) ( NSTEMI ) 2023 CTA chest [...] 90 min low impact. 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 ( leukemia age 43 ) 06/24 2 son in [facility] 06/19/2020 Brother 2 healthy 06/19/2020 3 sister [...] visit. Either the patient or their legal student services representative has been informed of the risks and benefits of -- and alternatives to -- treatment through a remote evaluation and consents to proceed with the evaluation remotely. I spent a total of 30 minutes on the date of the service which included [id number] patient care. documented in this encounterWo[facility]11-18-2024 Telephone encounter Note * Telephone Encounter - Ashley Beodya MA - 01/22/2024 10:26 AM EST Pharmacy sent a [employer] message requesting the following refill. Requested Prescriptions Pending Prescriptions Disp Refills tiZANidine (ZANAFLEX) 2 mg tablet [Pharmacy Med Name: TIZANIDINE HCL 2 MG TABLET] 60 tablet 2 Sig: TAKE 1 TO 3 TABLETS BY MOUTH AT BEDTIME IF NEEDED Patient last appointment: 09/29/2023 Next Appointment: 02/05/2024 Patient Phone numbers: [phone] (home) Request is for script(s) to be escript to pharmacy. Ashley Bedoya MA [facility]11-18-2024 Miscellaneous Notes* Telephone Encounter - Ashley Bedoya MA - 01/22/2024 10:26 AM EST Pharmacy sent a [employer] message requesting the following refill. Requested Prescriptions Pending Prescriptions Disp Refills tiZANidine (ZANAFLEX) 2 mg tablet [Pharmacy Med Name: TIZANIDINE HCL 2 MG TABLET] 60 tablet 2 Sig: TAKE 1 TO 3 TABLETS BY MOUTH AT BEDTIME IF NEEDED Patient last appointment: 09/29/2023 Next Appointment: 02/05/2024 Patient Phone numbers: [phone] (home) Request is for script(s) to be escript to pharmacy. Ashley Bedoya MA documented in this encounterWo[facility] Hospital11-18-2024 Telephone encounter Note * Telephone Encounter - Brynn Fofana LPN - 01/22/2024 9:14 AM EST Pt was discharged on Monday after a two day stay at [facility] diagnosed with pneumonia andMI (NSTEMI). Discharge summary in Epic (care everywhere). Pt had a heart cath done without intervention but was started on plavix. ABX tx has been completed and pt also was diagnosed with anemia and started on oral iron. Pt is to follow up with GI and that appointment will be made with a provider in the [place] area. Pt reports that the stool for OB was negative in the hospital. Pt would prefer to follow up with GI and not do the additional blood work as ordered by Dr.Singh neri has many post admission follow ups scheduled. Brynn Fofana LPN [facility]11-18-2024 Miscellaneous Notes* Telephone Encounter - Brynn Fofana LPN - 01/22/2024 9:14 AM EST Pt was discharged on Monday after a two day stay at [facility] diagnosed with pneumonia andMI (NSTEMI). Discharge summary in [facility] (care everywhere). Pt had a heart cath done without intervention but was started on plavix. ABX tx has been completed and pt also was diagnosed with anemia and started on oral iron. Pt is to follow up with GI and that appointment will be made with a provider in the [place] area. Pt reports that the stool for OB was negative in the hospital. Pt would prefer to follow up with GI and not do the additional blood work as ordered by Dr.Singh juarezhe has many post admission follow ups scheduled. Brynn Fofana LPN * Telephone Encounter - Robert Farias MD - 01/20/2024 2:57 PM EST Please let her know labs show anemia Get test done ordered Also stool test Robert Farias MD documented in this encounterWo[facility] Hospital11-16-2024 Telephone encounter Note * Telephone Encounter - Robert Farias MD - 01/20/2024 2:57 PM EST Please let her know labs show anemia Get test done ordered Also stool test Robert Farias MD [facility]11-09-2024 [facility]11-07-2024 Telephone encounter Note* Telephone Encounter - Ashley Bedoya MA - 01/11/2024 1:12 PM EST Pharmacy sent a [employer] message requesting the following refill. Requested Prescriptions Pending Prescriptions Disp Refills hydrOXYchloroQUINE (PLAQUENIL) 200 mg tablet [Pharmacy Med Name: HYDROXYCHLOROQUINE 200 MG TAB] 90 tablet 0 Sig: take 1 tablet by mouth once daily Patient last appointment: 09/29/2023 Next Appointment: 02/05/2024 Patient Phone numbers: [phone] (home) Request is for script(s) to be escript to pharmacy. Ashley Bedoya MA [facility]11-07-2024 Miscellaneous Notes* Telephone Encounter - Ashley Bedoya MA - 01/11/2024 1:12 PM EST Pharmacy sent a [employer] message requesting the following refill. Requested Prescriptions Pending Prescriptions Disp Refills hydrOXYchloroQUINE (PLAQUENIL) 200 mg tablet [Pharmacy Med Name: HYDROXYCHLOROQUINE 200 MG TAB] 90 tablet 0 Sig: take 1 tablet by mouth once daily Patient last appointment: 09/29/2023 Next Appointment: 02/05/2024 Patient Phone numbers: [phone] (home) Request is for script(s) to be escript to pharmacy. Ashley Bedoya MA documented in this encounterWooster [facility] Hospital09-17-2024 Telephone encounter Note * Telephone Encounter - Ashley Bedoya MA - 11/21/2023 9:10 AM EDT Patient sent a [employer] message requesting the following refill. Requested Prescriptions Pending Prescriptions Disp Refills tiZANidine (ZANAFLEX) 2 mg tablet 60 tablet 2 Sig: take 1 to 3 tablets by mouth at bedtime if needed Patient last appointment: 09/29/2023 Next Appointment: 02/05/2024 Patient Phone numbers: [phone] (home) Request is for script(s) to be escript to pharmacy. Ashley Bedoya MA [facility]09-17-2024 Miscellaneous Notes* Telephone Encounter - Ashley Bedoya MA - 11/21/2023 9:10 AM EDT Patient sent a MyChart message requesting the following refill. Requested Prescriptions Pending Prescriptions Disp Refills tiZANidine (ZANAFLEX) 2 mg tablet 60 tablet 2 Sig: take 1 to 3 tablets by mouth at bedtime if needed Patient last appointment: 09/29/2023 Next Appointment: 02/05/2024 Patient Phone numbers: [phone] (home) Request is for script(s) to be escript to pharmacy. Ashley Bedoya MA documented in this encounterWooster [facility] Hospital09-17-2024 Telephone encounter Note * Telephone Encounter - Ashley Bedoya MA - 11/21/2023 9:09 AM EDT Patient sent a [employer] message requesting the following refill. Requested Prescriptions Pending Prescriptions Disp Refills methotrexate 2.5 mg tablet 96 tablet 0 Sig: Take 8 tablets by mouth one time a week. Patient last appointment: 09/29/2023 Next Appointment: 11/20/2023 Patient Phone numbers: [phone] (home) Request is for script(s) to be escript to pharmacy. Ashley Bedoya MA [facility]09-17-2024 Miscellaneous Notes* Telephone Encounter - Ashley Bedoya MA - 11/21/2023 9:09 AM EDT Patient sent a [employer] message requesting the following refill. Requested Prescriptions Pending Prescriptions Disp Refills methotrexate 2.5 mg tablet 96 tablet 0 Sig: Take 8 tablets by mouth one time a week. Patient last appointment: 09/29/2023 Next Appointment: 11/20/2023 Patient Phone numbers: [phone] (home) Request is for script(s) to be escript to pharmacy. Ashley Bedoya MA documented in this encounterWo[facility] Hospital08-29-2024 Telephone encounter Note * Telephone Encounter - Ashley Bedoya MA - 11/02/2023 8:22 AM EDT Patient sent a MyChart message requesting the following refill. Requested Prescriptions Pending Prescriptions Disp Refills naproxen (NAPROSYN) 500 mg tablet 180 tablet 0 Sig: Take 1 tablet by mouth two times a day with meals. Patient last appointment: 09/29/2023 Next Appointment: 02/05/2024 Patient Phone numbers: [phone] (home) Request is for script(s) to be escript to pharmacy. Ashley Bedoya MA [facility]08-29-2024 Miscellaneous Notes* Telephone Encounter - Ashley Bedoya MA - 11/02/2023 8:22 AM EDT Patient sent a [employer] message requesting the following refill. Requested Prescriptions Pending Prescriptions Disp Refills naproxen (NAPROSYN) 500 mg tablet 180 tablet 0 Sig: Take 1 tablet by mouth two times a day with meals. Patient last appointment: 09/29/2023 Next Appointment: 02/05/2024 Patient Phone numbers: [phone] (home) Request is for script(s) to be escript to pharmacy. Ashley Bedoya MA documented in this encounterWo[facility] Hospital08-12-2024 Telephone encounter Note * Telephone Encounter - Ashley Bedoya MA - 10/16/2023 7:56 AM EDT Pharmacy sent a [employer] message requesting the following refill. Requested Prescriptions Pending Prescriptions Disp Refills hydrOXYchloroQUINE (PLAQUENIL) 200 mg tablet [Pharmacy Med Name: HYDROXYCHLOROQUINE 200 MG TAB] 90 tablet 0 Sig: take 1 tablet by mouth once daily Patient last appointment: 09/29/2023 Next Appointment: 02/05/2024 Patient Phone numbers: [phone] (home) Request is for script(s) to be escript to pharmacy. Ashley Bedoya MA [facility]08-12-2024 Miscellaneous Notes* Telephone Encounter - Ashley Bedoya MA - 10/16/2023 7:56 AM EDT Pharmacy sent a [employer] message requesting the following refill. Requested Prescriptions Pending Prescriptions Disp Refills hydrOXYchloroQUINE (PLAQUENIL) 200 mg tablet [Pharmacy Med Name: HYDROXYCHLOROQUINE 200 MG TAB] 90 tablet 0 Sig: take 1 tablet by mouth once daily Patient last appointment: 09/29/2023 Next Appointment: 02/05/2024 Patient Phone numbers: [phone] (home) Request is for script(s) to be escript to pharmacy. Ashley Bedoya MA documented in this encounterWo[facility]08-09-2024 Telephone encounter Note * Telephone Encounter - Ashley Bedoya MA - 10/13/2023 1:04 PM EDT Pharmacy sent a [employer] message requesting the following refill. Requested Prescriptions Pending Prescriptions Disp Refills folic acid 1 mg tablet 90 tablet 1 Sig: Take 1 tablet by mouth once daily. Patient last appointment: 09/29/2023 Next Appointment: 02/05/2024 Patient Phone numbers: [phone] (home) Request is for script(s) to be escript to pharmacy. Ashley Bedoya MA [facility]08-09-2024 Miscellaneous Notes* Telephone Encounter - Ashley Bedoya MA - 10/13/2023 1:04 PM EDT Pharmacy sent a [employer] message requesting the following refill. Requested Prescriptions Pending Prescriptions Disp Refills folic acid 1 mg tablet 90 tablet 1 Sig: Take 1 tablet by mouth once daily. Patient last appointment: 09/29/2023 Next Appointment: 02/05/2024 Patient Phone numbers: [phone] (home) Request is for script(s) to be escript to pharmacy. Ashley Bedoya MA documented in this encounterWo[facility] Hospital07-26-2024 History of Present illness Narrative* Robert Farias MD - 09/29/2023 2:45 PM EDT This note was created using Epiphanyriter. Subjective Jaylin Carroll is a 63 year old female. I am good Back tweaked 2 week ago Was in [facility] Not sure what happened Then 12 hour [...] Plan First visit 06/19/2020 ( moved from [place] ) RA and wants treatment for that [...] 2nd 3 rd MCP ) Dr. Mend[place] [facility] [place] [facility] : 01/2020 last [...] 90 min low impact. 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 ( leukemia age 43 ) 06/24 2 son in [facility] 06/19/2020 Brother 2 healthy 06/19/2020 3 sister healthy 06/19/2020 Mother 58 ( CHF cancer spinal from breast ) 06/19/2020 ( did not smoke ) Father brain aneurysm 67 06/19/2020 ( did smoke) 02/23 COVID cough, sneezing, sore throat, no temp etc . documented in this encounterWo[facility]07-10-2024 History of Present illness Narrative* Becca Garcia PA-C - 09/13/2023 9:07 AM EDT Patient needs to keep follow up in September to continue treatment. documented in this encounterWooster [facility] Hospital05-30-2024 Telephone encounter Note * Telephone Encounter - Deysi Fried - 08/03/2023 9:00 AM EDT [facility] [id number] [facility]caren/Faxed 08.04.23-08.03.24 Deysi Mantilla, Mangle Roller [facility]05-30-2024 Miscellaneous Notes* Telephone Encounter - Deysi Fried - 08/03/2023 9:00 AM EDT [employer] [place] Approved [id number] [facility]Faxed [id number] Dyesi Mantilla Mangle Roller documented in this encounterWooster Community Hospital05-29-2024 Telephone encounter Note * Telephone Encounter - Ashley Bedoya MA - 08/02/2023 9:31 AM EDT Pharmacy sent a MyChart message requesting the following refill. Requested Prescriptions Pending Prescriptions Disp Refills methotrexate 2.5 mg tablet 96 tablet 0 Sig: Take 8 tablets by mouth one time a week. Patient last appointment: 04/17/2023 Next Appointment: 09/15/2023 Patient Phone numbers: [phone] (home) Request is for script(s) to be escript to pharmacy. Ashley Bedoya MA [facility]05-29-2024 Miscellaneous Notes* Telephone Encounter - Ashley Bedoya MA - 08/02/2023 9:31 AM EDT Pharmacy sent a [employer] message requesting the following refill. Requested Prescriptions Pending Prescriptions Disp Refills methotrexate 2.5 mg tablet 96 tablet 0 Sig: Take 8 tablets by mouth one time a week. Patient last appointment: 04/17/2023 Next Appointment: 09/15/2023 Patient Phone numbers: [phone] (home) Request is for script(s) to be escript to pharmacy. Ashley Bedoya MA documented in this encounterWooster [facility] Hospital05-24-2024 History of Present illness Narrative* Robert Farias MD - 07/28/2023 10:55 AM EDT Noted Robert Farias MD documented in this encounterWooster Community Hospital05-22-2024 Telephone encounter Note * Telephone Encounter - Ashley Bedoya MA - 07/26/2023 9:09 AM EDT Patient sent a [employer] message requesting the following refill. Requested Prescriptions [...] 04/16/2021 Next Appointment: 09/15/2023 Patient Phone numbers: [phone] (home) Request is for script(s) to be escript to pharmacy. Ashley Bedoya MA Patient wants 90 day supply as she will be on vacation. [facility]05-22-[facility]24 Miscellaneous Notes* Telephone Encounter - Ashley Bedoya MA - 07/26/2023 9:09 AM EDT Patient sent a [employer] message requesting the following refill. Requested Prescriptions [...] 04/16/2021 Next Appointment: 09/15/2023 Patient Phone numbers: [phone] (home) Request is for script(s) to be escript to pharmacy. Ashley Bedoya MA Patient wants 90 day supply as she will be on vacation. documented in this encounterWooster [facility] Hospital04-12-2024 Miscellaneous Notes* Addendum Note - Emiliano Nassar - 06/16/2023 2:16 PM EDTAddended by: EMILIANO NASSAR on: 06/16/2023 02:16 PM Modules accepted: Orders documented in this encounterWo[facility] Hospital04-02-2024 Miscellaneous Notes* Telephone Encounter - Brynn [...] * GI Upset Stomach pain severe (home) [phone] (cell) Last Office Visit Date: 04/16/2021 Last [facility] Visit: 04/17/2023 Future Appointment: 09/15/2023 The patients preferred pharmacy has been captured for this encounter? yes Request is for script(s) to be escript to pharmacy. Brynn Fofana LPN documented in this encounterWooster Community Hospital03-04-2024 Miscellaneous Notes* Telephone Encounter - Pauly Goodwin - 05/08/2023 3:31 PM EST Patient is scheduled. Pauly Goodwin * Telephone Encounter - Ashley Bedoya MA - 05/08/2023 7:46 AM EST Pharmacy sent a [employer] message requesting the following refill. Requested Prescriptions Pending Prescriptions Disp Refills hydrOXYchloroQUINE (PLAQUENIL) 200 mg tablet [Pharmacy Med Name: HYDROXYCHLOROQUINE 200 MG TAB] 30 tablet 2 Sig: take 1 tablet by mouth once daily Patient last appointment: 04/17/2023 Next Appointment: Visit date not found Patient Phone numbers: [phone] (home) Request is for script(s) to be escript to pharmacy. Ashley Bedoya MA Needs 3 mth follow up documented in this encounterWooster Community Hospital02-20-2024 Miscellaneous Notes* Telephone Encounter - Ashley Bedoya MA - 04/25/2023 10:00 AM EST Patient sent a [employer] message requesting the following refill. Requested Prescriptions Pending Prescriptions Disp Refills naproxen (NAPROSYN) 500 mg tablet 180 tablet 0 Sig: Take 1 tablet by mouth two times a day with meals. Patient last appointment: 04/16/2021 Next Appointment: Visit date not found Patient Phone numbers: [phone] (home) Request is for script(s) to be escript to pharmacy. Ashley Bedoya MA documented in this encounterWooster Community Hospital02-15-2024 Miscellaneous Notes* Telephone Encounter - Ashley [...] the call/escalation: Message Was Patient Referred to [facility]/Seek Emergency Treatment (Y/N): n Did Patient Agree (Y/N): n Was An Attempt Made To Transfer The Patient To The Office (Y/N): n Were You Able To Reach Someone At The Office (Y/N): n If Yes - Patient Was Transferred To (Caregivers Name): n If No - Which [facility] Leadership Mechanical Apprentice Did You Speak With Regarding This Patient: n Was an appointment scheduled (Y/N): n Reason patient was requesting visit (RFV/signs and symptoms/diagnosis) : Monika from [facility] in needing the completed re enrollment packet to be faxed back to [phone] Person calling if other than patient: yes Return call to if other than patient: yes Best contact number: Thank you, Dulce Rehman April 18, 2023 9:42 AM documented in this encounterWooster Community Hospital02-12-2024 History of Present illness Narrative* Robert [...] Plan First visit 06/19/2020 ( [place] RA and wants treatment for that [...] 90 min low impact. 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 ( leukemia age 43 ) 06/24 2 son in [facility] 06/19/2020 Brother 2 healthy 06/19/2020 3 sister [...] visit. Either the patient or their legal student services representative has been informed of the risks and benefits of -- and alternatives to -- treatment through a remote evaluation andconsents to proceed with the evaluation remotely. documented in this encounterWooster [facility] Hospital11-29-2023 Miscellaneous Notes* Telephone Encounter - Ann Marie Frank MA - 02/01/2023 2:13 PM EST Patient sent a [employer] message requesting the following refill. Requested Prescriptions [...] 12/26/22 Next Appointment: 04/17/2023 Patient Phone numbers: [phone] (home) Request is for script(s) to be escript to pharmacy. Ann Marie Frank MA documented in this encounterWooster Community Hospital11-09-2023 Miscellaneous Notes* Telephone Encounter - Bianca [...] - 01/12/2023 1:20 PM EST Keke from [employer] called and stated they needed Renflexis order form. She said can call them back if there's any questions, . documented in this encounterWooster Community Hospital11-07-2023 Miscellaneous Notes* Telephone Encounter - Roverto West MA - 01/10/2023 10:38 AM EST Pharmacy faxed requesting the following refill. Requested Prescriptions Pending Prescriptions Disp Refills naproxen (NAPROSYN) 500 mg tablet [Pharmacy Med Name: NAPROXEN 500 MG TABLET] 180 tablet 0 Sig: Take 1 tablet by mouth two times a day with meals. Patient last appointment: 04/16/2021 Next Appointment: 04/17/2023 Patient Phone numbers: [phone] (home) Request is for script(s) to be escript to pharmacy. Roverto West MA documented in this encounterWooster Community Hospital10-23-2023 History of Present illness Narrative* Robert Farias MD - 12/26/2022 3:26 PM EDT This note was created using Epiphany[employer]. Subjective Jaylin Carroll is a 62 year [...] Plan First visit 06/19/2020 ( moved from [place] RA and wants treatment for that [...] 90 min low impact. 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 ( leukemia age 43 ) 06/24 2 son in [facility] 06/19/2020 Brother 2 healthy 06/19/2020 3 sister [...] visit. Either the patient or their legal student services representative has been informed of the risks and benefits of -- and alternatives to -- treatment through a remote evaluation andconsents to proceed with the evaluation remotely. documented in this encounterWooster Community Hospital10-16-2023 Miscellaneous Notes* Telephone Encounter - Roverto West MA - 12/19/2022 2:05 PM EDT Patient sent a [employer] message requesting the following refill. Requested Prescriptions Pending Prescriptions Disp Refills tiZANidine (ZANAFLEX) 2 mg tablet 60 tablet 2 Sig: Take 1-3 tablets by mouth at bedtime as needed. Patient last appointment: Visit date not found Next Appointment: 12/26/2022 Patient Phone numbers: [phone] (home) Request is for script(s) to be escript to pharmacy. Roverto West MA * Telephone Encounter - Roverto West MA - 12/19/2022 2:04 PM EDTMessage from [facility] Refills have been requested for the following medications: tiZANidine (ZANAFLEX) 2 mg tablet [Dr. Bradley Farias] Preferred pharmacy: [id number] [place] [address] [address] [facility] [phone] Delivery method: Pickup documented in this encounterWooster Community Hospital10-05-2023 Miscellaneous Notes* Telephone Encounter - Roverto West MA - 12/08/2022 9:16 AM EDT Pharmacy faxed requesting the following refill. Requested Prescriptions Pending Prescriptions Disp Refills folic acid 1 mg tablet [Pharmacy Med Name: FOLIC ACID 1 MG TABLET] 90 tablet 1 Sig: Take 1 tablet by mouth once daily. Patient last appointment: 04/16/2021 Next Appointment: 12/26/2022 Patient Phone numbers: [phone] (home) Request is for script(s) to be escript to pharmacy. Roverto West MA documented in this encounterWooster Community Hospital10-04-2023 Miscellaneous Notes* Telephone Encounter - Roverto West MA - 12/07/2022 8:32 AM EDT Pharmacy faxed requesting the following refill. Requested Prescriptions Pending Prescriptions Disp Refills methotrexate 2.5 mg tablet [Pharmacy Med Name: METHOTREXATE 2.5 MG TABLET] 96 tablet 0 Sig: Take 8 tablets by mouth one time a week. Patient last appointment: 06/19/2020 Next Appointment: 12/26/2022 Patient Phone numbers: [phone] (home) Request is for script(s) to be escript to pharmacy. Roverto West MA documented in this encounterWooster [facility] Hospital09-23-2023 History of Present illness Narrative* Robert Farias MD - 11/26/2022 7:02 PM EDT Noted Robert Farias MD documented in this encounterWooster Community Hospital09-08-2023 Miscellaneous Notes* Telephone Encounter - Roverto West MA - 11/11/2022 9:30 AM EDT Pharmacy faxed requesting the following refill. Requested Prescriptions Pending Prescriptions Disp Refills hydrOXYchloroQUINE (PLAQUENIL) 200 mg tablet [Pharmacy Med Name: HYDROXYCHLOROQUINE 200 MG TAB] 30 tablet 2 Sig: Take 1 tablet by mouth once daily. Patient last appointment: 04/16/2021 Next Appointment: 12/26/2022 Patient Phone numbers: [phone] (home) Request is for script(s) to be escript to pharmacy. Roverto West MA documented in this encounterWooster Community Hospital08-28-2023 Procedure [facility]08-07-2023 Miscellaneous Notes* Telephone Encounter - Roverto West MA - 10/10/2022 11:08 AM EDT Pharmacy faxed requesting the following refill. Requested Prescriptions Pending Prescriptions Disp Refills naproxen (NAPROSYN) 500 mg tablet [Pharmacy Med Name: NAPROXEN 500 MG TABLET] 180 tablet 0 Sig: Take 1 tablet by mouth twice daily with meals. Patient last appointment: 04/16/2021 Next Appointment: 12/26/2022 Patient Phone numbers: [phone] (home) Request is for script(s) to be escript to pharmacy. Roverto West MA documented in this encounterWooster [facility] Hospital07-12-2023 Miscellaneous Notes* Telephone Encounter - Roverto West MA - 09/14/2022 9:07 AM EDT Pharmacy faxed requesting the following refill. Requested Prescriptions Pending Prescriptions Disp Refills methotrexate 2.5 mg tablet [Pharmacy Med Name: METHOTREXATE 2.5 MG TABLET] 96 tablet 0 Sig: Take 8 tablets by mouth one time a week. Patient last appointment: 06/19/2020 Next Appointment: 12/26/2022 Patient Phone numbers: [phone] (home) Request is for script(s) to be escript to pharmacy. Roverto West MA documented in this encounterWooster [facility] Hospital07-06-2023 Miscellaneous Notes* Telephone Encounter - Roverto [...] found Next Appointment: 12/26/2022 Patient Phone numbers: [phone] (home) Request is for script(s) to be escript to pharmacy. Roverto West MA documented in this encounterWooster Community Hospital06-30-2023 History of Present illness Narrative* Robert Farias MD - 09/02/2022 3:12 PM EDT This note was created using [employer]. Subjective Jaylin Carroll is a 62 year [...] Plan First visit 06/19/2020 ( moved from [place] ) RA and wants treatment for that [...] 2nd 3 rd MCP ) Dr. Mendes [place] [facility] [place] [facility] : 01/2020 last [...] Left shoulder pain injury 2019 worked as [employer] ) 06/19/2020 tablet mixer fall on arm [...] 90 min low impact. 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 ( leukemia age 43 ) 06/24 2 son in [facility] 06/19/2020 Brother 2 healthy 06/19/2020 3 sister [...] visit. Either the patient or their legal student services representative has been informed of the risks and benefits of -- and alternatives to -- treatment through a remote evaluation andconsents to proceed with the evaluation remotely. documented in this encounterWooster [facility] Hospital06-21-2023 History of Present illness Narrative* Robert Farias MD - 08/24/2022 6:30 PM EDT Noted Robert Farias MD documented in this encounterWooster Community Hospital06-07-2023 Miscellaneous Notes* Telephone Encounter - Roverto West MA - 08/10/2022 3:31 PM EDT Pharmacy faxed requesting the following refill. Requested Prescriptions Pending Prescriptions Disp Refills hydrOXYchloroQUINE (PLAQUENIL) 200 mg tablet [Pharmacy Med Name: HYDROXYCHLOROQUINE 200 MG TAB] 30 tablet 2 Sig: Take 1 tablet by mouth once daily. Patient last appointment: 04/16/2021 Next Appointment: 09/02/2022 Patient Phone numbers: [phone] (home) Request is for script(s) to be escript to pharmacy. Roverto West MA documented in this encounterWo[facility] Hospital04-27-2023 History of Present illness Narrative* Robert Farias MD - 06/30/2022 8:36 PM EDT Noted Robert Farias MD documented in this encounterWooster Community Hospital04-26-2023 Miscellaneous Notes* Telephone Encounter - Roverto [...] found Next Appointment: 09/02/2022 Patient Phone numbers: [phone] (home) Request is for script(s) to be escript to pharmacy. Roverto West MA documented in this encounterWooster Community Hospital04-18-2023 Miscellaneous Notes* Telephone Encounter - Roverto West MA - 06/21/2022 1:56 PM EDT Pharmacy faxed requesting the following refill. Requested Prescriptions Pending Prescriptions Disp Refills methotrexate 2.5 mg tablet [Pharmacy Med Name: METHOTREXATE 2.5 MG TABLET] 96 tablet 0 Sig: Take 8 tablets by mouth every Imer. Patient last appointment: 06/19/2020 Next Appointment: 09/02/2022 Patient Phone numbers: [phone] (home) Request is for script(s) to be escript to pharmacy. Roverto West MA documented in this encounterWooster [facility] Hospital04-07-2023 Miscellaneous Notes* Telephone Encounter - Brynn [...] * GI Upset Stomach pain severe (home) [phone] (cell) Last Office Visit Date: 04/16/2021 Last [facility] Visit: 05/12/2022 Future Appointment: Visit date not found The patients preferred pharmacy has been captured for this encounter? yes Request is for script(s) to be escript to pharmacy. Brynn Fofana LPN documented in this encounterWooster [facility] Hospital03-09-2023 Miscellaneous Notes* Telephone Encounter - Roverto West MA - 05/12/2022 11:48 AM EST Pharmacy faxed requesting the following refill. Requested Prescriptions Pending Prescriptions Disp Refills hydrOXYchloroQUINE (PLAQUENIL) 200 mg tablet [Pharmacy Med Name: HYDROXYCHLOROQUINE 200 MG TAB] 30 tablet 2 Sig: Take 1 tablet by mouth once daily. Patient last appointment: 04/16/2021 Next Appointment: 05/12/2022 Patient Phone numbers: [phone] (home) Request is for script(s) to be escript to pharmacy. Roverto West MA documented in this encounterWooster [facility] Hospital02-27-2023 Miscellaneous Notes* Telephone Encounter - Roverto [...] found Next Appointment: 05/12/2022 Patient Phone numbers: [phone] (home) Request is for script(s) to be escript to pharmacy. Roverto West MA documented in this encounterWooster [facility] Hospital02-08-2023 Miscellaneous Notes* Telephone Encounter - Roverto West MA - 04/13/2022 10:19 AM EST Pharmacy faxed requesting the following refill. Requested Prescriptions Pending Prescriptions Disp Refills naproxen (NAPROSYN) 500 mg tablet [Pharmacy Med Name: NAPROXEN 500 MG TABLET] 180 tablet 1 Sig: TAKE 1 TABLET BY MOUTH TWICE A DAY WITH MEALS Patient last appointment: 04/16/2021 Next Appointment: 05/12/2022 Patient Phone numbers: [phone] (home) Request is for script(s) to be escript to pharmacy. Roverto West MA documented in this encounterWooster [facility] Hospital01-26-2023 History of Present illness Narrative* Balbina Beth RT(R) - 03/31/2022 9:30 AM EST Radiology Service [...] 31, 2022 9:36 AM documented in this encounterWooster Community Hospital01-25-2023 Miscellaneous Notes* Telephone Encounter - Roverto West MA - 03/30/2022 1:24 PM EST Pharmacy faxed requesting the following refill. Requested Prescriptions Pending Prescriptions Disp Refills methotrexate 2.5 mg tablet [Pharmacy Med Name: METHOTREXATE 2.5 MG TABLET] 96 tablet 0 Sig: TAKE 8 TABLETS BY MOUTH EVERY MONDAY. Patient last appointment: 06/19/2020 Next Appointment: 05/12/2022 Patient Phone numbers: [phone] (home) Request is for script(s) to be escript to pharmacy. Roverto West MA documented in this encounterWooster Community Hospital12-30-2022 Miscellaneous Notes* Telephone Encounter - Roverto [...] found Next Appointment: 05/12/2022 Patient Phone numbers: [phone] (home) Request is for script(s) to be escript to pharmacy. Roverto West MA documented in this [facility]12-12-2022 Miscellaneous Notes* Telephone Encounter - Brynn [...] virtual Next Appointment: 05/12/2022 Patient Phone numbers: [phone] (home) Request is for script(s) to be escript to pharmacy. Brynn Fofana LPN documented in this encounterWooster Community Hospital12-05-2022 Miscellaneous Notes* Telephone Encounter - Brynn Fofana LPN - 02/07/2022 3:04 PM EST Pharmacy faxed requesting the following refill. Requested Prescriptions Pending Prescriptions Disp Refills hydrOXYchloroQUINE (PLAQUENIL) 200 mg tablet 30 tablet 2 Sig: Take 1 tablet by mouth once daily. Patient last appointment: 02/04/2022 virtual Next Appointment: 05/12/2022 Patient Phone numbers: [phone] (home) Request is for script(s) to be escript to pharmacy. Brynn Fofana LPN documented in this encounterWooster [facility] Hospital12-02-2022 Instructions* Patient Instructions* Robert Farias MD [...] your usual activities immediately. documented in this encounterWooster Community Hospital12-01-2022 History of Present illness Narrative* Robert Farias MD - 02/03/2022 8:01 PM EST This note was created using [employer]. Subjective Jaylin Carroll is a 61 year [...] Plan First visit 06/19/2020 ( moved [place] RA and wants treatment for that [...] 90 min low impact. 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 ( leukemia age 43 ) 06/24 2 son in [facility] 06/19/2020 Brother 2 healthy 06/19/2020 3 sister healthy 06/19/2020 Mother 58 ( CHF cancer spinal from breast ) 06/19/2020 ( did not smoke ) Father brain aneurysm 67 06/19/2020 ( did smoke) COVID Moderna 01/2021 (3) done 02/23 COVID cough, sneezing, sore throat, no temp etc . 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 Asked for call back at [phone]. Brynn Fofana LPN documented in this encounterWooster Community Hospital11-17-2022 Miscellaneous Notes* Telephone Encounter - Roverto [...] found Next Appointment: 02/04/2022 Patient Phone numbers: [phone] (home) Request is for script(s) to be escript to pharmacy. Roverto West MA documented in this [facility]11-09-2022 Miscellaneous Notes* Telephone Encounter - Roverto West MA - 01/12/2022 2:49 PM EST Pharmacy faxed requesting the following refill. Requested Prescriptions Pending Prescriptions Disp Refills methotrexate 2.5 mg tablet 96 tablet 0 Sig: Take 8 tablets by mouth every Monday. Patient last appointment: 06/19/2020 Next Appointment: 02/04/2022 Patient Phone numbers: [phone] (home) Request is for script(s) to be escript to pharmacy. Roverto West MA documented in this [facility]10-31-2022 History of Present illness Narrative* Robert Farias MD - 01/03/2022 2:40 PM EDT Noted Robert Farias MD documented in this [facility]10-21-2022 Miscellaneous Notes* Telephone Encounter - Roverto [...] found Next Appointment: 02/04/2022 Patient Phone numbers: [phone] (home) Request is for script(s) to be escript to pharmacy. Roverto West MA documented in this encounterWooster [facility] Hospital10-12-2022 Miscellaneous Notes* Telephone Encounter - Roverto West MA - 12/15/2021 12:08 PM EDT Pharmacy faxed requesting the following refill. Requested Prescriptions Pending Prescriptions Disp Refills folic acid 1 mg tablet [Pharmacy Med Name: FOLIC ACID 1 MG TABLET] 90 tablet 1 Sig: TAKE 1 TABLET BY MOUTH EVERY DAY Patient last appointment: 04/16/2021 Next Appointment: 02/04/2022 Patient Phone numbers: [phone] (home) Request is for script(s) to be escript to pharmacy. Roverto West MA documented in this encounterWooster [facility] Hospital09-09-2022 History of Present illness Narrative* Robert Farias MD - 11/12/2021 7:14 AM EDT noted documented in this encounterWooster Community Hospital08-19-2022 History of Present illness Narrative* Robert Farias MD - 10/22/2021 2:30 PM EDT This note was created using Epiphany[employer]. Subjective Jaylin Carroll is a 61 year [...] Plan First visit 06/19/2020 ( [place] RA and wants treatment for that [...] 2nd 3 rd MCP ) Dr. 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 ( leukemia age 43 ) 2 son in [facility] 06/19/2020 Brother 2 healthy 06/19/2020 3 sister healthy 06/19/2020 Mother 58 ( CHF cancer spinal from breast ) 06/19/2020 ( did not smoke ) Father brain aneurysm 67 06/19/2020 ( did smoke) COVID Moderna 01/2021 (3) done 02/23 COVID cough, sneezing, sore throat, no temp etc . documented in this encounterWooster Community Hospital08-12-2022 Miscellaneous Notes* Telephone Encounter - Tia Carcamo MA - 10/15/2021 8:31 AM EDT Pharmacy faxed requesting the following refill. Requested Prescriptions Pending Prescriptions Disp Refills naproxen (NAPROSYN) 500 mg tablet [Pharmacy Med Name: NAPROXEN 500 MG TABLET] 180 tablet 1 Sig: TAKE 1 TABLET BY MOUTH TWICE A DAY WITH MEALS Patient last appointment: 04/16/2021 Next Appointment: 10/22/2021 Patient Phone numbers: [phone] (home) Request is for script(s) to be escript to pharmacy. Tia Carcamo MA documented in this encounterWooster Community Hospital07-27-2022 Miscellaneous Notes* Telephone Encounter - Brynn Fofana LPN - 09/29/2021 9:47 AM EDT Med had to be called into pts pharmacy- That was done for one 30 g tube to [facility] in [place]. Pt has been notified that cream is to be applied one hour prior to infusion around port site and cover with an occlusive drsg for skin anesthesia and voiced understanding. Brynn Fofana LPN * Telephone Encounter - Brynn Fofana LPN - 09/29/2021 9:06 AM EDT Med needs called in to pharm Brynn Fofana LPN documented in this encounterWooster Community Hospital07-26-2022 Miscellaneous Notes* Addendum Note - Brynn [...] suggested by infusion staff. Sent message to [facility] infusion staff to seetheir recommendation Brynn Fofana LPN documented in this encounterWooster Community Hospital07-08-2022 Miscellaneous Notes* Telephone Encounter - Brynn Fofana LPN - 09/10/2021 12:50 PM EDT Pharmacy faxed requesting the following refill. Pending Prescriptions Disp Refills TIZANIDINE 2 MG TABLET Sig: TAKE 1-3 TABLETS AT BEDTIME NEEDED BETTY: No Patient last appointment: 07/16/2021 Next Appointment: 10/22/2021 Patient Phone numbers: [phone] (home) Request is for script(s) to be escript to pharmacy. Brynn Fofana LPN documented in this encounterWooster Community Hospital06-13-2022 Miscellaneous Notes* Telephone Encounter - Tia Carcamo MA - 08/16/2021 9:40 AM EDT Pharmacy faxed requesting the following refill. Pending Prescriptions Disp Refills FOLIC ACID 1 MG TABLET 30 tablet 5 Sig: TAKE 1 TABLET BY MOUTH EVERY DAY BETTY: No Patient last appointment: 04/16/2021 Next Appointment: 10/22/2021 Patient Phone numbers: [phone] (home) Request is for script(s) to be escript to pharmacy. Tia Carcamo MA documented in this encounterWooster Community Hospital06-08-2022 Miscellaneous Notes* Telephone Encounter - Isabela Bal [employer]pg - 08/11/2021 2:01 PM EDT Renflexis PENDING with [facility] fax with office note pt scheduled Isabela Bal Alsip Ppg documented in this encounterWooster Community Hospital06-06-2022 Miscellaneous Notes* Telephone Encounter - Tia Carcamo MA - 08/09/2021 9:11 AM EDT Pharmacy faxed requesting the following refill. Pending Prescriptions Disp Refills HYDROXYCHLOROQUINE 200 MG TABLET 30 tablet 2 Sig: TAKE 1 TABLET BY MOUTH EVERY DAY BETTY: Yes Patient last appointment: 04/16/2021 Next Appointment: 10/22/2021 Patient Phone numbers: [phone] (home) Request is for script(s) to be escript to pharmacy. Tia Carcamo MA documented in this encounterWooster Community Hospital05-26-2022 Miscellaneous Notes* Telephone Encounter - Brynn [...] remicade Robert Farias MD documented in [facility] encounter[facility]22 Miscellaneous Notes* Telephone Encounter - Isabela Bal Alsip Ppg - 07/22/2021 10:38 AM EDT Humira Pen APPROVED [id number] 07.04.2021 - 07.21.2022 with caresource/cover my meds Isabela Bal Core Inspector Ppg * Telephone Encounter - Isabela Bal Alsip Ppg - 07/22/2021 9:33 AM EDT Humira Pen PENDING with caresource/cover my meds Isabela Bal Core Inspector Ppg documented in this encounterW[facility]05-16-2022 Miscellaneous Notes* Addendum Note - Robert Farias MD - 07/19/2021 12:37 PM EDT Addended by: ROBERT FARIAS on: 07/19/2021 12:37 PM Modules accepted: Orders * Telephone Encounter - Robert Farias MD - 07/19/2021 12:36 PM EDT Placed orders Thanks Robert Farias MD * Telephone Encounter - Brynn Fofana LPN - 07/19/2021 10:42 AM EDT Called an spoke to Josefa at [facility]- the order needs placed for IR Peripheral Inserted Tunnel Port.Procedure # [id number]. Once this order is placed they will take care of scheduling pt. I gave them all of the pts information over the phone today. Brynn Fofana LPN * Telephone Encounter - Robert Farias MD - 07/16/2021 4:14 PM EDT Brynn She needs a port for infusion for remicade Can you find out which one Thanks Robert Farias MD documented in this encounterW[facility]05-13-[facility]22 History of Present illness Narrative* Robert Farias MD - 07/16/2021 10:50 AM EDT This note was created using [employer]. 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 ( leukemia age 43 ) 2 son in [facility] 06/19/2020 Brother 2 healthy 06/19/2020 3 sister healthy 06/19/2020 Mother 58 ( CHF cancer spinal from breast ) 06/19/2020 ( did not smoke ) Father brain aneurysm 67 06/19/2020 ( did smoke) COVID Moderna 01/2021 (3) done 02/23 COVID cough, sneezing, sore throat, no temp etc . documented in this encounterW[facility]06-08-2021 Miscellaneous Notes* Telephone Encounter - Tia Carcamo MA - 08/11/2020 4:01 PM EDT Pt is aware and understand. * Telephone Encounter - Robert Farias MD - 08/10/2020 6:01 PM EDT Please inform patient to get labs done Robert Farias MD documented in this encounterW[facility]06-08-2021 Miscellaneous Notes* Telephone Encounter - Kelsea Sosa - 08/11/2020 1:52 PM EDT I spoke with the patient, she was calm and pleasant, said she will get her TB test done LUISA. Askedthat we communicate with her via phone going forward as MyChart is not preferred. [facility] (not sure if the [facility] has infusion). * Telephone Encounter - Deysi [...] informed her that I would let my smoke jumper supervisor aware of the situation. Deysi TATE documented in this encounterWooster [facility] Hospital06-08-2021 Miscellaneous Notes* Telephone Encounter - Deysi Fried - 08/11/2020 10:02 AM EDT Patient states she will get the labs done on Tuesday 08/15. Deysi TATE documented in this encounterW[facility] Hospital06-01-2021 Miscellaneous Notes* Telephone Encounter - Isabela Munoz - 08/04/2020 3:54 PM EDT Renflexis fax pending with nathanael Vann documented in this encounterWooster [facility] Hospital04-16-2021 Miscellaneous Notes* Telephone Encounter - Tatyana Shah - 06/19/2020 3:17 PM EDT At checkout per Dr Farias: Please get remicade (order in beacon prior authorized) Patient had been on it in [place], last dose beginning of February. She has Nathanael romero, gave her brochure, she will check on copay assistance for infusions, fyi. Tatyana Diaz Core Inspector documented in this encounterWooster [facility] Hospital04-16-2021 History of Present illness Narrative* Robert Farias - 06/19/2020 2:24 PM EDT This note was created using [employer]. 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 Never smoked of each No ETOH . ( leukemia age 43 ) 2 son in [facility] 06/19/2020 Brother 2 healthy 06/19/2020 3 sister healthy 06/19/2020 Mother 58 ( CHF cancer spinal from breast ) 06/19/2020 ( did not smoke ) Father brain aneurysm 67 06/19/2020 ( did smoke) documented in this encounterWooster Community HospitalConsult note Author Kat Traylor [facility] Note Date/Time May 27, 2024 3:[address] [place] [address] Medical Records Department [address] [place] [address] Counseling Note - Pharmacy 05/27/24 1511 MR#: [id number] Acct: [id number] Name: JAYLIN CARROLL Rep #:[id number] : 1960 63 From: Kat Traylor PCP: Dr. Paul Greco MD Status:ADM IN O Y Location: [place] [address] Pharmacy [place] Med Reconciliation Pharmacy Service has performed discharge [...] mg PO QDAY #60 tabs 04/30/24 05/27/24 1091 <Electronically signed by Kat Traylor> Date _ Kat Perez Signature (if applicable): Date CC: ~ Signed [facility] Work Phone: Discharge summary Author Isael Baeza [facility] Note Date/Time May 27, 2024 3:0 6pm [facility] Medical Records Department [address] [place] [address] Instructions for Home/Discharge Instructions 05/27/24 1503 MR#: [id number] Acct: [id number] Name: JAYLIN CARROLL Rep #:[id number] : 1960 63 From: Isael Baeza DO [...] Primary Care Provider: Paul Greco Consulting Providers: Natlaie Gaspar Discharge Orders/Prescriptions Prescriptions: Continued metformin 500 [...] MD; Dr. Paul Greco MD ~ Signed [facility] Work Phone: Discharge summary Author [facility] Note Date/Time May 27, 2024 3:[address] [place] [address] System Medical Records Department [address] [place] [id number] Discharge Summary 05/27/24 1506 MR#: [id number] Acct: [id number] Name: JAYLIN CARROLL Rep #:[id number] : 1960 63 From: Isael Baeza DO PCP: Dr. Paul Greco MD Status:ADM IN Location: [place] [address] Providers Date of Admission: 05/27/24 Date of [...] Neut % (Auto) 50.1, Lymph % (Auto) 35.2,Taliaferro % (Auto) 10.7 H, Eos % (Auto) [...] Self Care Charges/Coding Visit Charges Inpatient E&M: 94902 Disch Hosp 05/27/24 1512 <Electronically signed by Isael Baeza DO> Cosigner Signature (if applicable): CC: Dr. Paul Greco MD; Dr. Isael Baeza DO~ Signed [facility] Work Phone: Evaluation note* Diagnosis Rheumatoid arthritis involving both hands with positive rheumatoid factor (HCC) documented in this encounter [facility] note* Diagnosis Rheumatoid arthritis involving both hands with positive rheumatoid factor (HCC)- Primary Chronic bilateral low back pain without sciatica [facility] Diagnosis Rheumatoid arthritis involving both hands with positive rheumatoid factor (HCC)- Primary [facility]* Diagnosis Rheumatoid arthritis involving both hands with positive rheumatoid factor (HCC)- Primary [facility]* Diagnosis Rheumatoid arthritis involving both hands with positive rheumatoid factor (HCC)- Primary [facility]* Diagnosis Rheumatoid arthritis involving both hands with positive rheumatoid factor (HCC)- Primary [facility]* Diagnosis Rheumatoid arthritis involving both hands with positive rheumatoid factor (HCC)- Primary Rheumatoid arthritis involving both hands with positive rheumatoid factor (HCC) [facility]* Diagnosis Anesthesia of skin- Primary Disturbance of skin sensation documented [facility] encounter [facility]* Diagnosis Anesthesia of skin- Primary Disturbance of skin sensation [facility]* Diagnosis Rheumatoid arthritis involving both hands with positive rheumatoid factor (HCC)- Primary [facility]* Diagnosis Rheumatoid arthritis involving both hands with positive rheumatoid factor (HCC)- Primary [facility] Diagnosis Rheumatoid arthritis involving both hands with positive rheumatoid factor (HCC)- Primary [facility] Diagnosis Rheumatoid arthritis involving both hands with positive rheumatoid factor (HCC)- Primary [facility] Diagnosis Rheumatoid arthritis involving both hands with positive rheumatoid factor (HCC)- Primary Asymptomatic postmenopausal status documented [facility]* Diagnosis Rheumatoid arthritis involving both hands with positive rheumatoid factor (HCC)- Primary [facility]* Diagnosis Asymptomatic postmenopausal status documented in this encounter [facility] noteNo assessment information availableWUniversity Hospitals [facility] Work Phone: Evaluation note* Diagnosis Rheumatoid arthritis involving both hands with positive rheumatoid factor (HCC)- Primary documented [facility] encounter [facility]* Diagnosis Rheumatoid arthritis involving both hands with positive rheumatoid factor (HCC)- Primary [facility]* Diagnosis Rheumatoid arthritis involving both hands with positive rheumatoid factor (HCC)- Primary [facility]* Diagnosis Rheumatoid arthritis involving both hands with positive rheumatoid factor (HCC)- Primary [facility] encounter [facility]* Diagnosis Rheumatoid arthritis involving both hands with positive rheumatoid factor (HCC)- Primary documented in [facility] encounter [facility]* Diagnosis Anemia, chronic disease- Primary Anemia of other chronic disease documented in this encounter [facility]* Diagnosis Rheumatoid arthritis involving both hands with positive rheumatoid factor (HCC)- Primary Anemia, chronic disease Anemia of other chronic disease Recurrent infections Unspecified infectious and parasitic diseases documented in this encounter [facility]* Diagnosis Rheumatoid arthritis involving both hands with positive rheumatoid factor (HCC)- Primary documented [facility]* Diagnosis Rheumatoid arthritis involving both hands with positive rheumatoid factor (HCC)- Primary [facility]* Diagnosis Rheumatoid arthritis involving both hands with positive rheumatoid factor (HCC)- Primary [facility]* Diagnosis Rheumatoid arthritis involving both hands with positive rheumatoid factor (HCC)- Primary Asymptomatic postmenopausal status High risk medication use Encounter for long-term (current) use of other medications documented in this encounter [facility]* Diagnosis Rheumatoid arthritis involving both hands with positive rheumatoid factor (HCC)- Primary [facility]* Diagnosis Rheumatoid arthritis involving both hands with positive rheumatoid factor (HCC)- Primary [facility]* Diagnosis Rheumatoid arthritis involving both hands with positive rheumatoid factor (HCC)- Primary High risk medication use Encounter for long-term (current) use of other medications Cerebrovascular disease Cerebrovascular disease, unspecified Asymptomatic postmenopausal status documented in this encounter [facility]* Diagnosis Rheumatoid arthritis involving both hands with positive rheumatoid factor (HCC)- Primary High risk medication use Encounter for long-term (current) use of other medications Cerebrovascular disease Cerebrovascular disease, unspecified documented in this encounter [facility] CenterReason for referral (narrative)No reason for referral information availableWUniversity [facility]als [facility] Work Phone: Reason for visit Narrative* Outpatient Procedure (Routine) - Pending Review Specialty Diagnoses / Procedures Referred By Berenice krause Referred To Contact BD IMAGING Diagnoses Asymptomatic menopausal state Procedures DXA BONE DENSITY AXIAL 1+ SITES DXA-AXIAL SKELETON [[id number]] Robert Farias MD [address] [place] [address] Bd Imaging Referral ID Status Reason Start Date Expiration Date Visits Requested Visits Authorized [id number] Pending Review OON/Self Pay Override 02/07/2022 05/08/2022 1 1 [facility] Medications Administered Section Inactive Administered Medications [...] FoundDocuments on File Type Date Recorded 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 Advance Directive(s) 09/21/2021 7:41 AM Documents on File Type Date Recorded 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 Advance Directive(s) 09/21/2021 7:41 AM Advance Directive Response Recorded Date/ Time Advance Directives on File No Novem 2023 9:20am Living Will No January 23, 024 9:20am Power of Websphere Commerce Consultant No January 24, 2024 9:20am Living Will No February 08 6:09pm Power of [employer] Commerce Consultant No February 09, 2024 6:09pm Living Will No April 12 2:46pm Power of [employer] Commerce Consultant No April 12, 2024 2:46pm Living Will No March 10 9:33pm Power of [employer] Commerce Consultant No March 10 025 9:33pm Advance Directive Response Recorded Date/ Time Living Will No February 08 6:09pm Do you have a Healthcare Power of Websphere Commerce Consultant? No February 09, 2024 6:09pm Living Will No April 12 2:46pm Do you have a Healthcare Power of Websphere Commerce Consultant? No April 12, 2024 2:46pm Living Will No March 10 9:33pm Do you have a Healthcare Power of Websphere Commerce Consultant? No March 10, 2024 9:33pm Living Will No May 27, 2024 2:54am Do you have a Healthcare Power of Websphere Commerce Consultant? No May 27, 2024 2:54am Advance Directive Response Recorded Date/ Time Do you have a Healthcare Power of Websphere Commerce Consultant? No July 25, 2024 7:08pm Living Will No April 12 2:46pm Do you have a Healthcare Power of Websphere Commerce Consultant? No April 12, 2024 2:46pm Living Will No May 27, 2024 2:54am Do you have a Healthcare Power of Websphere Commerce Consultant? No May 27, 2024 2:54am Do you have a Healthcare Power of Websphere Commerce Consultant? No July 03, 2024 6:16pm Advance Directive Response Recorded Date/ Time Do you have a Healthcare Power of Web[employer] Commerce Consultant? No July 25, 2024 7:08pm Living Will No May 27, 2024 2:54am Do you have a Healthcare Power of Websphere Commerce Consultant? No May 27, 2024 2:54am Do you have a Healthcare Power of [employer] Commerce Consultant? No July 03, 2024 6:16pm Advance Directive Response Recorded Date/ Time Do you have a Healthcare Power of Websphere Commerce Consultant? No July 25, 2024 7:08pm Do you have a Healthcare Power of [employer] Commerce Consultant? No July 03, 2024 6:16pm Chief Complaint and Reason for Visit Chief Complaint EORDER Chief Complaint ASTHMA Asthma Chief Complaint ASTHMA Asthma EORDER Chief Complaint Admit Date FL-NonSTEMI<12months January 24, 2024 8:05am INT LABS January 31, 2024 7:57am FL-NonSTEMI<12months January 31, 2024 9:15am Hospital FU-[facility] February 06, 2024 9 :25am chest pain February 09, 2024 3 :12pm FL-NonSTEMI<12months February 21, 2024 9:15am S/P [facility] 01/11 NONSTEMI/OK TO LEAVE PER MM M February 26, 2024 9:09am E ORDER February 26, 2024 10:06am FL-NonSTEMI<12months March 08, 2024 6 :14am CHEST PAIN [...] Date INT LABS January 31, 2024 7:57am FL-NonSTEMI<12months January 31, 2024 9:15am Hospital FU-[facility] February 06, 2024 9 :25am chest pain February 09, 2024 3 :12pm FL-NonSTEMI<12months February 21, 2024 9:15am S/P [facility] 11/8 NONSTEMI/OK TO LEAVE PER MM M February 26, 2024 9:09am E ORDER February 26, 2024 10:06am FL-NonSTEMI<12months March 08, 2024 6 :14am CHEST PAIN [...] or prosecute any alcohol or drug abuse patient.[facility] HospitalIn the event this information is protected by the Federal Confidentiality of Alcohol and Drug Abuse Patient Records regulations: The Federal rules restrict any use of the information to criminally investigate or prosecute any alcohol or drug abuse patient.[facility] HospitalIn the event this information is protected by the Federal Confidentiality of Alcohol and Drug Abuse Patient Records regulations: The Federal rules restrict any use of the information to criminally investigate or prosecute any alcohol or drug abuse patient.[facility] HospitalIn the event this information is protected by the Federal Confidentiality of Alcohol and Drug Abuse Patient Records regulations: The Federal rules restrict any use of the information to criminally investigate or prosecute any alcohol or drug abuse patient.[facility] HospitalIn the event this information is protected by the Federal Confidentiality of Alcohol and Drug Abuse Patient Records regulations: The Federal rules restrict any use of the information to criminally investigate or prosecute any alcohol or drug abuse patient.[facility] HospitalIn the event this information is protected by the Federal Confidentiality of Alcohol and Drug Abuse Patient Records regulations: The Federal rules restrict any use of the information to criminally investigate or prosecute any alcohol or drug abuse patient.[facility] HospitalIn the event this information is protected [...] or prosecute any alcohol or drug abuse patient.[facility] HospitalIn the event this information is protected by the Federal Confidentiality of Alcohol and Drug Abuse Patient Records regulations: The Federal rules restrict any use of the information to criminally investigate or prosecute any alcohol or drug abuse patient.[facility] HospitalIn the event this information is protected by the Federal Confidentiality of Alcohol and Drug Abuse Patient Records regulations: The Federal rules restrict any use of the information to criminally investigate or prosecute any alcohol or drug abuse patient.[facility] HospitalIn the event this information is protected by the Federal Confidentiality of Alcohol and Drug Abuse Patient Records regulations: The Federal rules restrict any use of the information to criminally investigate or prosecute any alcohol or drug abuse patient.[facility] HospitalIn the event this information is protected by the Federal Confidentiality of Alcohol and Drug Abuse Patient Records regulations: The Federal rules restrict any use of the information to criminally investigate or prosecute any alcohol or drug abuse patient.[facility] HospitalIn the event this information is protected by the Federal Confidentiality of Alcohol and Drug Abuse Patient Records regulations: The Federal rules restrict any use of the information to criminally investigate or prosecute any alcohol or drug abuse patient.[facility] HospitalIn the event this information is protected by the Federal Confidentiality of Alcohol and Drug Abuse Patient Records regulations: The Federal rules restrict any use of the information to criminally investigate or prosecute any alcohol or drug abuse patient.[facility] HospitalIn the event this information is protected by the Federal Confidentiality of Alcohol and Drug Abuse Patient Records regulations: The Federal rules restrict any use of the information to criminally investigate or prosecute any alcohol or drug abuse patient.[facility] HospitalIn the event this information is protected by the Federal Confidentiality of Alcohol and Drug Abuse Patient Records regulations: The Federal rules restrict any use of the information to criminally investigate or prosecute any alcohol or drug abuse patient.[facility] HospitalIn the event this information is protected by the Federal Confidentiality of Alcohol and Drug Abuse Patient Records regulations: The Federal rules restrict any use of the information to criminally investigate or prosecute any alcohol or drug abuse patient.[facility] HospitalIn the event this information is protected by the Federal Confidentiality of Alcohol and Drug Abuse Patient Records regulations: The Federal rules restrict any use of the information to criminally investigate or prosecute any alcohol or drug abuse patient.[facility] HospitalIn the event this information is protected by the Federal Confidentiality of Alcohol and Drug Abuse Patient Records regulations: The Federal rules restrict any use of the information to criminally investigate or prosecute any alcohol or drug abuse patient.[facility] HospitalIn the event this information is protected by the Federal Confidentiality of Alcohol and Drug Abuse Patient Records regulations: The Federal rules restrict any use of the information to criminally investigate or prosecute any alcohol or drug abuse patient.[facility] HospitalIn the event this information is protected by the Federal Confidentiality of Alcohol and Drug Abuse Patient Records regulations: The Federal rules restrict any use of the information to criminally investigate or prosecute any alcohol or drug abuse patient.[facility] HospitalIn the event this information is protected by the Federal Confidentiality of Alcohol and Drug Abuse Patient Records regulations: The Federal rules restrict any use of the information to criminally investigate or prosecute any alcohol or drug abuse patient.[facility] HospitalIn the event this information is protected by the Federal Confidentiality of Alcohol and Drug Abuse Patient Records regulations: The Federal rules restrict any use of the information to criminally investigate or prosecute any alcohol or drug abuse patient.[facility] HospitalIn the event this information is protected by the Federal Confidentiality of Alcohol and Drug Abuse Patient Records regulations: The Federal rules restrict any use of the information to criminally investigate or prosecute any alcohol or drug abuse patient.[facility] HospitalIn the event this information is protected by the Federal Confidentiality of Alcohol and Drug Abuse Patient Records regulations: The Federal rules restrict any use of the information to criminally investigate or prosecute any alcohol or drug abuse patient.[facility] HospitalIn the event this information is protected by the Federal Confidentiality of Alcohol and Drug Abuse Patient Records regulations: The Federal rules restrict any use of the information to criminally investigate or prosecute any alcohol or drug abuse patient.[facility] [facility] HospitalIn the event this information is protected by the Federal Confidentiality of Alcohol and Drug Abuse Patient Records regulations: The Federal rules restrict any use of the information to criminally investigate or prosecute any alcohol or drug abuse patient.[facility]In the event this information is protected by the Federal Confidentiality of Alcohol and Drug Abuse Patient Records regulations: The Federal rules restrict any use of the information to criminally investigate or prosecute any alcohol or drug abuse patient.[facility]In the event this information is protected by the Federal Confidentiality of Alcohol and Drug Abuse Patient Records regulations: The Federal rules restrict any use of the information to criminally investigate or prosecute any alcohol or drug abuse patient.[facility]In the event this information is protected by the Federal Confidentiality of Alcohol and Drug Abuse Patient Records regulations: The Federal rules restrict any use of the information to criminally investigate or prosecute any alcohol or drug abuse patient.[facility]In the event this information is protected by the Federal Confidentiality of Alcohol and Drug Abuse Patient Records regulations: The Federal rules restrict any use of the information to criminally investigate or prosecute any alcohol or drug abuse patient.[facility]In the event this information is protected by the Federal Confidentiality of Alcohol and Drug Abuse Patient Records regulations: The Federal rules restrict any use of the information to criminally investigate or prosecute any alcohol or drug abuse patient.[facility]In the event this information is protected by the Federal Confidentiality of Alcohol and Drug Abuse Patient Records regulations: The Federal rules restrict any use of the information to criminally investigate or prosecute any alcohol or drug abuse patient.[facility]In the event this information is protected by the Federal Confidentiality of Alcohol and Drug Abuse Patient Records regulations: The Federal rules restrict any use of the information to criminally investigate or prosecute any alcohol or drug abuse patient.[facility]In the event this information is protected by the Federal Confidentiality of Alcohol and Drug Abuse Patient Records regulations: The Federal rules restrict any use of the information to criminally investigate or prosecute any alcohol or drug abuse patient.[facility]In the event this information is protected by the Federal Confidentiality of Alcohol and Drug Abuse Patient Records regulations: The Federal rules restrict any use of the information to criminally investigate or prosecute any alcohol or drug abuse patient.[facility]In the event this information is protected by the Federal Confidentiality of Alcohol and Drug Abuse Patient Records regulations: The Federal rules restrict any use of the information to criminally investigate or prosecute any alcohol or drug abuse patient.[facility]In the event this information is protected by the Federal Confidentiality of Alcohol and Drug Abuse Patient Records regulations: The Federal rules restrict any use of the information to criminally investigate or prosecute any alcohol or drug abuse patient.[facility]In the event this information is protected by the Federal Confidentiality of Alcohol and Drug Abuse Patient Records regulations: The Federal rules restrict any use of the information to criminally investigate or prosecute any alcohol or drug abuse patient.[facility]In the event this information is protected by the Federal Confidentiality of Alcohol and Drug Abuse Patient Records regulations: The Federal rules restrict any use of the information to criminally investigate or prosecute any alcohol or drug abuse patient.[facility]In the event this information is protected by the Federal Confidentiality of Alcohol and Drug Abuse Patient Records regulations: The Federal rules restrict any use of the information to criminally investigate or prosecute any alcohol or drug abuse patient.[facility] HospitalIn the event this information is protected by the Federal Confidentiality of Alcohol and Drug Abuse Patient Records regulations: The Federal rules restrict any use of the information to criminally investigate or prosecute any alcohol or drug abuse patient.[facility] HospitalIn the event this information is protected by the Federal Confidentiality of Alcohol and Drug Abuse Patient Records regulations: The Federal rules restrict any use of the information to criminally investigate or prosecute any alcohol or drug abuse patient.[facility]In the event this information is protected by the Federal Confidentiality of Alcohol and Drug Abuse Patient Records regulations: The Federal rules restrict any use of the information to criminally investigate or prosecute any alcohol or drug abuse patient.[facility] HospitalIn the event this information is protected by the Federal Confidentiality of Alcohol and Drug Abuse Patient Records regulations: The Federal rules restrict any use of the information to criminally investigate or prosecute any alcohol or drug abuse patient.[facility]In the event this information is protected by the Federal Confidentiality of Alcohol and Drug Abuse Patient Records regulations: The Federal rules restrict any use of the information to criminally investigate or prosecute any alcohol or drug abuse patient.[facility]In the event this information is protected by the Federal Confidentiality of Alcohol and Drug Abuse Patient Records regulations: The Federal rules restrict any use of the information to criminally investigate or prosecute any alcohol or drug abuse patient.[facility] HospitalIn the event this information is protected by the Federal Confidentiality of Alcohol and Drug Abuse Patient Records regulations: The Federal rules restrict any use of the information to criminally investigate or prosecute any alcohol or drug abuse patient.[facility]In the event this information is protected by the Federal Confidentiality of Alcohol and Drug Abuse Patient Records regulations: The Federal rules restrict any use of the information to criminally investigate or prosecute any alcohol or drug abuse patient.[facility] HospitalIn the event this information is protected by the Federal Confidentiality of Alcohol and Drug Abuse Patient Records regulations: The Federal rules restrict any use of the information to criminally investigate or prosecute any alcohol or drug abuse patient.[facility] HospitalIn the event this information is protected by the Federal Confidentiality of Alcohol and Drug Abuse Patient Records regulations: The Federal rules restrict any use of the information to criminally investigate or prosecute any alcohol or drug abuse patient.[facility]In the event this information is protected by the Federal Confidentiality of Alcohol and Drug Abuse Patient Records regulations: The Federal rules restrict any use of the information to criminally investigate or prosecute any alcohol or drug abuse patient.[facility] HospitalIn the event this information is protected by the Federal Confidentiality of Alcohol and Drug Abuse Patient Records regulations: The Federal rules restrict any use of the information to criminally investigate or prosecute any alcohol or drug abuse patient.[facility] HospitalIn the event this information is protected by the Federal Confidentiality of Alcohol and Drug Abuse Patient Records regulations: The Federal rules restrict any use of the information to criminally investigate or prosecute any alcohol or drug abuse patient.[facility] HospitalIn the event this information is protected by the Federal Confidentiality of Alcohol and Drug Abuse Patient Records regulations: The Federal rules restrict any use of the information to criminally investigate or prosecute any alcohol or drug abuse patient.[facility] HospitalIn the event this information is protected by the Federal Confidentiality of Alcohol and Drug Abuse Patient Records regulations: The Federal rules restrict any use of the information to criminally investigate or prosecute any alcohol or drug abuse patient.[facility] HospitalIn the event this information is protected [...] or prosecute any alcohol or drug abuse patient.[facility] HospitalIn the event this information is protected by the Federal Confidentiality of Alcohol and Drug Abuse Patient Records regulations: The Federal rules restrict any use of the information to criminally investigate or prosecute any alcohol or drug abuse patient.[facility]In the event this information is protected by the Federal Confidentiality of Alcohol and Drug Abuse Patient Records regulations: The Federal rules restrict any use of the information to criminally investigate or prosecute any alcohol or drug abuse patient.[facility]In the event this information is protected by the Federal Confidentiality of Alcohol and Drug Abuse Patient Records regulations: The Federal rules restrict any use of the information to criminally investigate or prosecute any alcohol or drug abuse patient.[facility]In the event this information is protected by the Federal Confidentiality of Alcohol and Drug Abuse Patient Records regulations: The Federal rules restrict any use of the information to criminally investigate or prosecute any alcohol or drug abuse patient.[facility]In the event this information is protected by the Federal Confidentiality of Alcohol and Drug Abuse Patient Records regulations: The Federal rules restrict any use of the information to criminally investigate or prosecute any alcohol or drug abuse patient.[facility]In the event this information is protected by the Federal Confidentiality of Alcohol and Drug Abuse Patient Records regulations: The Federal rules restrict any use of the information to criminally investigate or prosecute any alcohol or drug abuse patient.[facility] HospitalIn the event this information is protected by the Federal Confidentiality of Alcohol and Drug Abuse Patient Records regulations: The Federal rules restrict any use of the information to criminally investigate or prosecute any alcohol or drug abuse patient.[facility]In the event this information is protected by the Federal Confidentiality of Alcohol and Drug Abuse Patient Records regulations: The Federal rules restrict any use of the information to criminally investigate or prosecute any alcohol or drug abuse patient.[facility]In the event this information is protected by the Federal Confidentiality of Alcohol and Drug Abuse Patient Records regulations: The Federal rules restrict any use of the information to criminally investigate or prosecute any alcohol or drug abuse patient.[facility] HospitalIn the event this information is protected by the Federal Confidentiality of Alcohol and Drug Abuse Patient Records regulations: The Federal rules restrict any use of the information to criminally investigate or prosecute any alcohol or drug abuse patient.[facility]In the event this information is protected by the Federal Confidentiality of Alcohol and Drug Abuse Patient Records regulations: The Federal rules restrict any use of the information to criminally investigate or prosecute any alcohol or drug abuse patient.[facility] HospitalIn the event this information is protected by the Federal Confidentiality of Alcohol and Drug Abuse Patient Records regulations: The Federal rules restrict any use of the information to criminally investigate or prosecute any alcohol or drug abuse patient.[facility] HospitalIn the event this information is protected by the Federal Confidentiality of Alcohol and Drug Abuse Patient Records regulations: The Federal rules restrict any use of the information to criminally investigate or prosecute any alcohol or drug abuse patient.[facility]In the event this information is protected by the Federal Confidentiality of Alcohol and Drug Abuse Patient Records regulations: The Federal rules restrict any use of the information to criminally investigate or prosecute any alcohol or drug abuse patient.[facility]In the event this information is protected by the Federal Confidentiality of Alcohol and Drug Abuse Patient Records regulations: The Federal rules restrict any use of the information to criminally investigate or prosecute any alcohol or drug abuse patient.[facility] HospitalIn the event this information is protected by the Federal Confidentiality of Alcohol and Drug Abuse Patient Records regulations: The Federal rules restrict any use of the information to criminally investigate or prosecute any alcohol or drug abuse patient.[facility] HospitalIn the event this information is protected by the Federal Confidentiality of Alcohol and Drug Abuse Patient Records regulations: The Federal rules restrict any use of the information to criminally investigate or prosecute any alcohol or drug abuse patient.[facility] HospitalIn the event this information is protected by the Federal Confidentiality of Alcohol and Drug Abuse Patient Records regulations: The Federal rules restrict any use of the information to criminally investigate or prosecute any alcohol or drug abuse patient.[facility] HospitalIn the event this information is protected by the Federal Confidentiality of Alcohol and Drug Abuse Patient Records regulations: The Federal rules restrict any use of the information to criminally investigate or prosecute any alcohol or drug abuse patient.[facility] HospitalIn the event this information is protected by the Federal Confidentiality of Alcohol and Drug Abuse Patient Records regulations: The Federal rules restrict any use of the information to criminally investigate or prosecute any alcohol or drug abuse patient.[facility]In the event this information is protected by the Federal Confidentiality of Alcohol and Drug Abuse Patient Records regulations: The Federal rules restrict any use of the information to criminally investigate or prosecute any alcohol or drug abuse patient.[facility] HospitalIn the event this information is protected by the Federal Confidentiality of Alcohol and Drug Abuse Patient Records regulations: The Federal rules restrict any use of the information to criminally investigate or prosecute any alcohol or drug abuse patient.[facility] HospitalIn the event this information is protected by the Federal Confidentiality of Alcohol and Drug Abuse Patient Records regulations: The Federal rules restrict any use of the information to criminally investigate or prosecute any alcohol or drug abuse patient.[facility] HospitalIn the event this information is protected by the Federal Confidentiality of Alcohol and Drug Abuse Patient Records regulations: The Federal rules restrict any use of the information to criminally investigate or prosecute any alcohol or drug abuse patient.[facility] HospitalIn the event this information is protected by the Federal Confidentiality of Alcohol and Drug Abuse Patient Records regulations: The Federal rules restrict any use of the information to criminally investigate or prosecute any alcohol or drug abuse patient.[facility]In the event this information is protected by the Federal Confidentiality of Alcohol and Drug Abuse Patient Records regulations: The Federal rules restrict any use of the information to criminally investigate or prosecute any alcohol or drug abuse patient.[facility]In the event this information is protected by the Federal Confidentiality of Alcohol and Drug Abuse Patient Records regulations: The Federal rules restrict any use of the information to criminally investigate or prosecute any alcohol or drug abuse patient.[facility]In the event this information is protected by the Federal Confidentiality of Alcohol and Drug Abuse Patient Records regulations: The Federal rules restrict any use of the information to criminally investigate or prosecute any alcohol or drug abuse patient.[facility]In the event this information is protected by the Federal Confidentiality of Alcohol and Drug Abuse Patient Records regulations: The Federal rules restrict any use of the information to criminally investigate or prosecute any alcohol or drug abuse patient.[facility]In the event this information is protected by the Federal Confidentiality of Alcohol and Drug Abuse Patient Records regulations: The Federal rules restrict any use of the information to criminally investigate or prosecute any alcohol or drug abuse patient.[facility]In the event this information is protected by the Federal Confidentiality of Alcohol and Drug Abuse Patient Records regulations: The Federal rules restrict any use of the information to criminally investigate or prosecute any alcohol or drug abuse patient.[facility]In the event this information is protected by the Federal Confidentiality of Alcohol and Drug Abuse Patient Records regulations: The Federal rules restrict any use of the information to criminally investigate or prosecute any alcohol or drug abuse patient.[facility]In the event this information is protected by the Federal Confidentiality of Alcohol and Drug Abuse Patient Records regulations: The Federal rules restrict any use of the information to criminally investigate or prosecute any alcohol or drug abuse patient.[facility]In the event this information is protected by the Federal Confidentiality of Alcohol and Drug Abuse Patient Records regulations: The Federal rules restrict any use of the information to criminally investigate or prosecute any alcohol or drug abuse patient.[facility]In the event this information is protected by the Federal Confidentiality of Alcohol and Drug Abuse Patient Records regulations: The Federal rules restrict any use of the information to criminally investigate or prosecute any alcohol or drug abuse patient.[facility]In the event this information is protected by the Federal Confidentiality of Alcohol and Drug Abuse Patient Records regulations: The Federal rules restrict any use of the information to criminally investigate or prosecute any alcohol or drug abuse patient.[facility]In the event this information is protected by the Federal Confidentiality of Alcohol and Drug Abuse Patient Records regulations: The Federal rules restrict any use of the information to criminally investigate or prosecute any alcohol or drug abuse patient.[facility]In the event this information is protected by the Federal Confidentiality of Alcohol and Drug Abuse Patient Records regulations: The Federal rules restrict any use of the information to criminally investigate or prosecute any alcohol or drug abuse patient.[facility]In the event this information is protected by the Federal Confidentiality of Alcohol and Drug Abuse Patient Records regulations: The Federal rules restrict any use of the information to criminally investigate or prosecute any alcohol or drug abuse patient.[facility]In the event this information is protected by the Federal Confidentiality of Alcohol and Drug Abuse Patient Records regulations: The Federal rules restrict any use of the information to criminally investigate or prosecute any alcohol or drug abuse patient.[facility]In the event this information is protected by the Federal Confidentiality of Alcohol and Drug Abuse Patient Records regulations: The Federal rules restrict any use of the information to criminally investigate or prosecute any alcohol or drug abuse patient.[facility]In the event this information is protected by the Federal Confidentiality of Alcohol and Drug Abuse Patient Records regulations: The Federal rules restrict any use of the information to criminally investigate or prosecute any alcohol or drug abuse patient.[facility]In the event this information is protected by the Federal Confidentiality of Alcohol and Drug Abuse Patient Records regulations: The Federal rules restrict any use of the information to criminally investigate or prosecute any alcohol or drug abuse patient.[facility]In the event this information is protected by the Federal Confidentiality of Alcohol and Drug Abuse Patient Records regulations: The Federal rules restrict any use of the information to criminally investigate or prosecute any alcohol or drug abuse patient.[facility]In the event this information is protected by the Federal Confidentiality of Alcohol and Drug Abuse Patient Records regulations: The Federal rules restrict any use of the information to criminally investigate or prosecute any alcohol or drug abuse patient.[facility]In the event this information is protected by the Federal Confidentiality of Alcohol and Drug Abuse Patient Records regulations: The Federal rules restrict any use of the information to criminally investigate or prosecute any alcohol or drug abuse patient.[facility]In the event this information is protected by the Federal Confidentiality of Alcohol and Drug Abuse Patient Records regulations: The Federal rules restrict any use of the information to criminally investigate or prosecute any alcohol or drug abuse patient.[facility]In the event this information is protected by the Federal Confidentiality of Alcohol and Drug Abuse Patient Records regulations: The Federal rules restrict any use of the information to criminally investigate or prosecute any alcohol or drug abuse patient.[facility] HospitalIn the event this information is protected [...] or prosecute any alcohol or drug abuse patient.[facility] HospitalIn the event this information is protected by the Federal Confidentiality of Alcohol and Drug Abuse Patient Records regulations: The Federal rules restrict any use of the information to criminally investigate or prosecute any alcohol or drug abuse patient.[facility]In the event this information is protected by the Federal Confidentiality of Alcohol and Drug Abuse Patient Records regulations: The Federal rules restrict any use of the information to criminally investigate or prosecute any alcohol or drug abuse patient.[facility]In the event this information is protected by the Federal Confidentiality of Alcohol and Drug Abuse Patient Records regulations: The Federal rules restrict any use of the information to criminally investigate or prosecute any alcohol or drug abuse patient.[facility]In the event this information is protected by the Federal Confidentiality of Alcohol and Drug Abuse Patient Records regulations: The Federal rules restrict any use of the information to criminally investigate or prosecute any alcohol or drug abuse patient.[facility]In the event this information is protected by the Federal Confidentiality of Alcohol and Drug Abuse Patient Records regulations: The Federal rules restrict any use of the information to criminally investigate or prosecute any alcohol or drug abuse patient.[facility]In the event this information is protected by the Federal Confidentiality of Alcohol and Drug Abuse Patient Records regulations: The Federal rules restrict any use of the information to criminally investigate or prosecute any alcohol or drug abuse patient.[facility] HospitalIn the event this information is protected by the Federal Confidentiality of Alcohol and Drug Abuse Patient Records regulations: The Federal rules restrict any use of the information to criminally investigate or prosecute any alcohol or drug abuse patient.[facility] the event this information is protected by the Federal Confidentiality of Alcohol and Drug Abuse Patient Records regulations: The Federal rules restrict any use of the information to criminally investigate or prosecute any alcohol or drug abuse patient.[facility] the event this information is protected by the Federal Confidentiality of Alcohol and Drug Abuse Patient Records regulations: The Federal rules restrict any use of the information to criminally investigate or prosecute any alcohol or drug abuse patient.[facility] the event this information is protected by the Federal Confidentiality of Alcohol and Drug Abuse Patient Records regulations: The Federal rules restrict any use of the information to criminally investigate or prosecute any alcohol or drug abuse patient.[facility] the event this information is protected by the Federal Confidentiality of Alcohol and Drug Abuse Patient Records regulations: The Federal rules restrict any use of the information to criminally investigate or prosecute any alcohol or drug abuse patient.[facility] Reason for Visit (unrecogniz ed section and content) Reason Comments Joint Pain Specialty Diagnoses / Procedures Referred By Contac t Referred To Contact Diagnoses Rheumatoid arthritis involving both hands with positive rheumatoid factor (HCC) Procedures INJECTION, RENFLEXIS INJECTION, RENFLEXIS Robert Hinojosa MD [address] [place] [address] [facility] [address] [place] [address] Referral ID Status Reason Start Date Expiration Date Visits Requested Visits Authorized [id number] Authorized OON/Self Pay Override Patient Cleared INN/SMCP Payor Auth Obtained Patient Cleared - Admin/Chairm an/Director advise to proceed or did not respond 08/13/2021 08/03/2024 7 28 Reason Comments Chemotherapy Treatment Specialty Diagnoses / Procedures Referred By Contac t Referred To Contact Diagnoses Rheumatoid arthritis involving both hands with positive rheumatoid factor (HCC) Procedures INJECTION, ANTONETTEFLEXRobert Centeno MD [address] [place] [address] [facility] [address] [place] [address] Referral ID Status Reason Start Date Expiration Date Visits Requested Visits Authorized [id number] Authorized OON/Self Pay Override Patient Cleared INN/SMCP Payor Auth Obtained Patient Cleared - Admin/Chairm an/Director advise to proceed or did not respond 08/13/2021 08/27/2023 7 21 Reason Comments Infusion Specialty Diagnoses / Procedures Referred By Contac t Referred To Contact Diagnoses Rheumatoid arthritis involving both hands with positive rheumatoid factor (HCC) Procedures Robert Hinojosa MD [address] [place] [address] [facility] [address] [place] [address] Referral ID Status Reason Start Date Expiration Date Visits Requested Visits Authorized [id number] Authorized OON/Self Pay Override Patient Cleared INN/SMCP Payor Auth Obtained Patient Cleared - Admin/Chairm an/Director advise to proceed 08/13/2021 08/13/2022 12 24 Specialty Diagnoses / Procedures Referred By Contac t Referred To Contact RHEUMATOLOGY Diagnoses Rheumatoid arthritis with rheumatoid factor of right hand without organ or systems involvement Procedures office visit Robert Farias MD [address] [place] [address] [facility] [address] [place] [address] Referral ID Status Reason Start Date Expiration Date Visits Requested Visits Authorized [id number] Pending Review OON/Self Pay Override 12/04/2021 03/04/2022 1 1 Reason Comments New Patient old records here Status Reason Specialty Diagnoses / Procedures Referred By Contact Referred To Contact Closed OON/Self Pay Override RHEUMATOLOGY Diagnoses Rheumatoid arthritis (HCC) Procedures EST PATIENT VISIT LEVEL 4 Office Visit Robert Farias [address] [place] [address] [facility] [address] [place] [address] Reason Comments Medication Authorization remicade Reason Comments Pending PA Renflexis fax pendin g with [facility] Reason Comments Phone Call Reason Comments Patient Update Referral ID Status Reason Start Date Expiration Date Visits Requested Visits Authorized [id number] Authorized OON/Self Pay Override Patient Cleared INN/SMCP Payor Auth Obtained 08/04/2020 08/04/2021 12 12 Reason Comments Hip Pain Reason Comments APPROVED Humira Pen APPROVED [id number] 07.04.2021 - 07.21.2022 with [facility]/cover my meds Reason Comments Refill Request Reason Comments PENDING Renflexis PENDING wi th [facility] fax with office note pt scheduled Reason Onset Date Comments Refill Request 09/10/2021 Reason Comments Patient Question Reason Onset Date Comments Refill Request 09/29/2021 Specialty Diagnoses / Procedures Referred By Contac t Referred To Contact Diagnoses Rheumatoid arthritis involving both hands with positive rheumatoid factor (HCC) Procedures Robert Hinojosa MD [address] [address] [facility] [address] [place] [address] Specialty Diagnoses / Procedures Referred By Contac t Referred To Contact RHEUMATOLOGY Diagnoses Rheumatoid arthritis (HCC) Procedures follow up Robert Farias MD [address] [address] [place] [address] [place] [place] [id number] Referral ID Status Reason Start Date Expiration Date Visits Requested Visits Authorized [id number] Pending Review OON/Self Pay Override 10/04/2021 01/02/2022 1 1 Reason Onset Date Comments Refill Request 01/12/2022 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 Date Comments Refill Request 02/07/2022 Specialty Diagnoses / Procedures Referred By Contac t Referred To Contact RHEUMATOLOGY Diagnoses Rheumatoid arthritis with rheumatoid factor of right hand without organ or systems involvement Procedures FOLLOW-UP E-ASSESSMENT Robert Farias MD [address] [place] [address] [facility] [facility] [place] [address] Referral ID Status Reason Start Date Expiration Date Visits Requested Visits Authorized [id number] Pending Review OON/Self Pay Override 04/06/2022 10/03/2022 1 1 Specialty Diagnoses / Procedures Referred By Contac t Referred To Contact Diagnoses Rheumatoid arthritis involving both hands with positive rheumatoid factor (HCC) Procedures INJECTION, RENFLEXIS RenflexRobert Lofton MD [address] [place] [address] [facility] [address] [place] [address] Referral ID Status Reason Start Date Expiration Date Visits Requested Visits Authorized [id number] Pending Review OON/Self Pay Override Patient Cleared INN/SMCP Payor Auth Obtained Patient Cleared - Admin/Chair man/Directo r advise to proceed or did not respond 08/13/2021 08/27/2023 7 21 Reason Onset Date Comments Refill Request 12/19/2022 Referral ID Status Reason Start Date Expiration Date Visits Requested Visits Authorized [id number] Pending Review OON/Self Pay Override 09/04/2022 03/03/2023 2 2 Reason Comments Medication Request Renflexis Order Reason Onset Date Comments Refill Request 02/01/2023 Specialty Diagnoses / Procedures [facility] Referred To Contact RHEUMATOLOGY Diagnoses Rheumatoid arthritis with rheumatoid factor of right hand without organ or systems involvement Procedures FOLLOW-UP E-ASSESSMENT [facility] [place] [address] Antonio Jackson [facility] [place] [address] Referral ID Status Reason Start Date Expiration Date Visits Requested Visits Authorized [id number] Pending Review OON/Self Pay Override 3 05/04/2023 1 1 Reason Onset Date Comments Refill Request 04/24/2023 Reason Onset Date Comments Refill Request 06/05/2023 Reason Onset Date Comments Refill Request 07/25/2023 Reason Onset Date Comments Refill Request 08/02/2023 Reason Comments Medication Preauthorization Renflexis- S tow Approved [id number] [facility]/Faxed 08.04.23-08.03.24 Reason Comments Rheumatoid Arthritis Specialty Diagnoses / Procedures Referred By Contac t Referred To Contact RHEUMATOLOGY Diagnoses Rheumatoid arthritis with rheumatoid factor of right hand without organ or systems involvement Procedures FOLLOW-UP E-ASSESSMENT Robert Farias MD [address] [place] [address] [place] [address] Referral ID Status Reason Start Date Expiration Date Visits Requested Visits Authorized [id number] Pending Review OON/Self Pay Override 05/08/2023 10/04/2023 1 1 Reason Onset Date Comments Refill Request 10/13/2023 Reason Onset Date Comments Refill Request 11/02/2023 Reason Onset Date Comments Refill Request 11/20/2023 Reason Onset Date Comments Refill Request 04/05/2024 Reason Comments RENFLEXIS - PENDING Renflexsukumar, [place] - PE KYING [id number] [facility] Specialty Diagnoses / Procedures Referred By Berenice t Referred To Contact Diagnoses Rheumatoid arthritis involving both hands with positive rheumatoid factor (HCC) Procedures INJECTION, RENFLEXIS Becca Garcia PA-C [address] [place] [address] Phone: tel: fax: Hematology/Oncology [address] [place] [address] Phone: tel: fax: Referral ID Status Reason Start Date Expiration Date Visits Requested Visits Authorized [id number] Authorized OON/Self Pay Override 09/13/2023 08/02/2024 2 6 Reason Comments Rheumatoid Arthritis Specialty Diagnoses / Procedures Referred By Berenice t Referred To Contact RHEUMATOLOGY Diagnoses Rheumatoid arthritis with rheumatoid factor of right hand without organ or systems involvement Procedures FOLLOW-UP E-ASSESSMENT Robert Farias MD [address] [place] [address] Phone: tel: fax: [facility] General Arthritis [place] [address] Phone: tel: fax: Referral ID Status Reason Start Date Expiration Date Visits Requested Visits Authorized [id number] New Request OON/Self Pay Override 02/05/2024 07/03/2024 1 1 Reason Comments RENFLEXIS - PENDING Renflexsukumar, [place] - PE NDING [id number] [facility] Specialty Diagnoses / Procedures Referred By Contac t Referred To Contact Diagnoses Rheumatoid arthritis involving both hands with positive rheumatoid factor (HCC) Procedures INJECTION, RENFLEXIS INJECTION, INFLECTRA [place]cca victor PA-C [address] [place] [address] Phone: tel: fax: Hematology/Oncology [address] [place] [address] Phone: tel: fax: Referral ID Status Reason Start Date Expiration Date Visits Requested Visits Authorized [id number] Authorized OON/Self Pay Override Patient Cleared - Admin/Chairm an/Director advise to proceed or did not respond 09/13/2023 10/28/2024 3 9 Reason Onset Date Comments Refill Request 08/13/2024 Reason Onset Date Comments Refill Request 10/07/2024 Reason Comments INFLECTRA - PENDING Inflectra, [place] - PE NDING [id number] [facility]/Portal Reason Comments Rheumatoid Arthritis fu Specialty Diagnoses / Procedures Referred By Contac t Referred To Contact RHEUMATOLOGY Diagnoses Rheumatoid arthritis with rheumatoid factor of right hand without organ or systems involvement (HCC) Procedures FOLLOW-UP E-ASSESSMENT Robert Farias MD [address] [place] [address] Phone: tel: fax: [place] [address] [place] [address] Phone: tel: fax: Referral ID Status Reason Start Date Expiration Date Visits Requested Visits Authorized [id number] New Request OON/Self Pay Override 06/14/2024 11/01/2024 2 2 Reason Comments Appointment Reason Comments INFLECTRA - PENDING Inflectra, [place] - PE NDING [id number] [facility] Specialty Diagnoses / Procedures Referred By Contac t Referred To Contact Diagnoses Rheumatoid arthritis involving both hands with positive rheumatoid factor (HCC) Procedures INJECTION, RENFLEXIS INJECTION, INFLECTRA INJECTION, INFLECTRA [place], Becca, PA-C [address] [place] [address] Phone: tel: fax: Hematology/Oncology [address] [place] [address] Phone: tel: fax: Referral ID Status Reason Start Date Expiration Date Visits Requested Visits Authorized [id number] Authorized OON/Self Pay Override Patient Cleared - [...] 2024 End: January 31, 2024 Xiang Rogers COMPRESSOR MECHANIC, COMPRESSOR MECHANIC-C Attending Provider Active S tart: January 31, 2024 End: January 31, 2024 Xiang Rogers COMPRESSOR MECHANIC, COMPRESSOR MECHANIC-C Referring Provider Active S tart: January 31, [...] 2024 End: February 26, 2024 Ana Rosa RONODN, PA Attending Provider Active Start: February 26, 2024 End: February 26, 2024 Team Status: Inactive Member Role Status Sakshi Greco MD Primary Care Provider Active St art: February 26, 2024 End: February 26, 2024 Ana Rosa RONDON, PA Attending Provider Active Start: February 26, 2024 End: February 26, 2024 Ana Rosa Oquendo PA, PA Referring Provider Active Start: February 26, [...] Provider Active S tart: May 27, 2024 Mechanical Apprentice Relationship Specialty Start Date End Date Edis Trejo [address] [place] [address] PCP - General Family Practice 04/07/20 Mechanical Apprentice Relationship Specialty Start Date End Date Edis Trejo [address] [place] [address] PCP - General Family Practice 04/07/20 Mechanical Apprentice Relationship Specialty Start Date End Date Edis Trejo [address] [place] [address] PCP - General Family Practice 04/07/20 Mechanical Apprentice Relationship Specialty Start Date End Date Edis Trejo [address] [place] [address] PCP - General Family Practice 04/07/20 Mechanical Apprentice Relationship Specialty Start Date End Date Edis Trejo [address] [place] [address] PCP - General Family Practice 04/07/20 Mechanical Apprentice Relationship Specialty Start Date End Date Edis Trejo [address] [place] [address] PCP - General Family Practice 04/07/20 Mechanical Apprentice Relationship Specialty Start Date End Date Edis Trejo [address] [place] [address] PCP - General Family Practice 04/07/20 Mechanical Apprentice Relationship Specialty Start Date End Date Edis Trejo [address] [place] [address] PCP - General Family Practice 04/07/20 Mechanical Apprentice Relationship Specialty Start Date End Date Edis Trejo [address] [place] [address] PCP - General Family Practice 04/07/20 Mechanical Apprentice Relationship Specialty Start Date End Date Edis Trejo [address] [place] [address] PCP - General Family Practice 04/07/20 Mechanical Apprentice Relationship Specialty Start Date End Date Edis Trejo [address] [place] [address] PCP - General Family Practice 04/07/20 Mechanical Apprentice Relationship Specialty Start Date End Date Edis Trejo [address] [place] [address] PCP - General Family Medicine 04/07/20 Mechanical Apprentice Relationship Specialty Start Date End Date Edis Trejo [address] [place] [address] PCP - General Family Medicine 04/07/20 Mechanical Apprentice Relationship Specialty Start Date End Date Edis Trejo [address] [place] [address] PCP - General Family Medicine 04/07/20 Mechanical Apprentice Relationship Specialty Start Date End Date Edis Trejo [address] [place] [address] PCP - General Family Medicine 04/07/20 Mechanical Apprentice Relationship Specialty Start Date End Date Edis Trejo, [address] [place] [address] PCP - General Family Medicine 04/07/20 Mechanical Apprentice Relationship Specialty Start Date End Date Edis Trejo, DO [address] [place] [address] PCP - General Family Medicine 04/07/20 Mechanical Apprentice Relationship Specialty Start Date End Date Edis Trejo, [address] [place] [address] PCP - General Family Medicine 04/07/20 Mechanical Apprentice Relationship Specialty Start Date End Date Edis Trejo, [address] [place] [address] PCP - General Family Medicine 04/07/20 Mechanical Apprentice Relationship Specialty Start Date End Date Edis Trejo, [address] [place] [address] PCP - General Family Medicine 04/07/20 Team Status: Active Member Role Status Dates Dr. Jaren Huerta MD Family Provider Active Alisa Escobar DO Primary Care Provider Active Team Status: Inactive Member Role Status Dates Alisa Escobar DO Primary Care Provi lorna, Attending Provider, Referring Provider Active Mechanical Apprentice Relationship Specialty Start Date End Date Edis Trejo, [address] [place] [address] PCP - General Family Medicine 04/07/20 Mechanical Apprentice Relationship Specialty Start Date End Date Edis Trejo, [address] [place] [address] PCP - General Family Medicine 04/07/20 Mechanical Apprentice Relationship Specialty Start Date End Date PadminiEdis, [address] [place] [address] (Work) PCP - General Family Medicine 04/07/20 Mechanical Apprentice Relationship Specialty Start Date End Date Edis Trejo DO [address] [place] [address] PCP - General Family Medicine 04/07/20 Mechanical Apprentice Relationship Specialty Start Date End Date Edis Trejo DO [address] [place] [address] PCP - General Family Medicine 04/07/20 Mechanical Apprentice Relationship Specialty Start Date End Date Edis Trejo DO [address] [place] [address] PCP - General Family Medicine 04/07/20 Mechanical Apprentice Relationship Specialty Start Date End Date Edis Trejo DO [address] [place] [id number] PCP - General Family Medicine 04/07/20 Team Status: Active Member Role Status Dates Alisa Escobar , Primary Care Provi lorna, Referring Provider, Other Provider Active Dr. Morgan Duarte , Attending Provider Active Mechanical Apprentice Relationship Specialty Start Date End Date Edis Trejo DO [address] [place] [address] PCP - General Family Medicine 04/07/20 Mechanical Apprentice Relationship Specialty Start Date End Date Edis Trejo DO [address] [place] [address] PCP - General Family Medicine 04/07/20 Mechanical Apprentice Relationship Specialty Start Date End Date Edis Trejo DO [address] [place] [address] PCP - General Family Medicine 04/07/20 Mechanical Apprentice Relationship Specialty Start Date End Date Edis Trejo DO [address] [place] [address] PCP - General Family Medicine 04/07/20 Mechanical Apprentice Relationship Specialty Start Date End Date Edis Trejo DO [address] [place] [address] PCP - General Family Medicine 04/07/20 Mechanical Apprentice Relationship Specialty Start Date End Date Edis Trejo DO [address] [place] [address] PCP - General Family Medicine 04/07/20 Mechanical Apprentice Relationship Specialty Start Date End Date Eids Trejo DO [address] [place] [address] PCP - General Family Medicine 04/07/20 Mechanical Apprentice Relationship Specialty Start Date End Date Edis Trejo DO [address] [place] [address] PCP - General Family Medicine 04/07/20 Mechanical Apprentice Relationship Specialty Start Date End Date Edis Trejo DO [address] [place] [address] PCP - General Family Medicine 04/07/20 Mechanical Apprentice Relationship Specialty Start Date End Date Edis Trejo DO [address] [place] [address] PCP - General Family Medicine 04/07/20 Mechanical Apprentice Relationship Specialty Start Date End Date Edis Trejo DO [address] [place] [address] PCP - General Family Medicine 04/07/20 Mechanical Apprentice Relationship Specialty Start Date End Date Edis Trejo DO [address] [place] [address] PCP - General Family Medicine 04/07/20 Mechanical Apprentice Relationship Specialty Start Date End Date Edis Trejo DO [address] [place] [address] PCP - General Family Medicine 04/07/20 Mechanical Apprentice Relationship Specialty Start Date End Date Edis Trejo DO [address] [place] [address] PCP - General Family Medicine 04/07/20 Mechanical Apprentice Relationship Specialty Start Date End Date Edis Trejo DO [address] [place] [address] PCP - General Family Medicine 04/07/20 Mechanical Apprentice Relationship Specialty Start Date End Date Edis Trejo DO [address] [place] [address] PCP - General Family Medicine 04/07/20 Mechanical Apprentice Relationship Specialty Start Date End Date Paul Greco MD [address] [place] [address] PCP - General Internal Medicine 09/29/23 Mechanical Apprentice Relationship Specialty Start Date End Date Paul Greco MD [address] [place] [address] PCP - General Internal Medicine 09/29/23 Mechanical Apprentice Relationship Specialty Start Date End Date Paul Greco MD [address] [facility] [address] [place] [address] PCP - General Internal Medicine 09/29/23 Mechanical Apprentice Relationship Specialty Start Date End Date Paul Greco MD [address] [facility] [address] [place] [address] PCP - General Internal Medicine 09/29/23 Mechanical Apprentice Relationship Specialty Start Date End Date Paul Greco MD [address] [facility] [address] [place] [address] PCP - General Internal Medicine 09/29/23 Mechanical Apprentice Relationship Specialty Start Date End Date Paul Greco MD [address] [facility] [address] [place] [address] PCP - General Internal Medicine 09/29/23 Mechanical Apprentice Relationship Specialty Start Date End Date Paul Greco MD [address] [facility] [address] [place] [address] PCP - General Internal Medicine 09/29/23 Mechanical Apprentice Relationship Specialty Start Date End Date Paul Greco MD [address] [facility] [address] [place] [address] PCP - General Internal Medicine 09/29/23 Mechanical Apprentice Relationship Specialty Start Date End Date Paul Greco MD [address] [facility] [address] [place] [address] PCP - General Internal Medicine 09/29/23 Mechanical Apprentice Relationship Specialty Start Date End Date Paul Greco MD [address] [facility] [address] [place], [place] [address] PCP - General Internal Medicine 09/29/23 Team [...] January 24, 2024 End: January 24, 2024 Mechanical Apprentice Relationship Specialty Start Date End Date Paul Greco MD [address] [facility] [address] [place], [place] [address] PCP - General Internal Medicine 09/29/23 Mechanical Apprentice Relationship Specialty Start Date End Date Paul Greco MD [address] [facility] [address] [place], [place] [address] PCP - General Internal Medicine 09/29/23 Team Status: Inactive Member Role Status Dates [...] 31, 2024 End: May 31, 2024 Paul Greoc MD Referring Provider Active Start : May [...] 2024 End: July 30, 2024 Ambreen Delaney COMPRESSOR MECHANIC, COMPRESSOR MECHANIC-C Attending Provider Active Start: July 30, 2024 End: July 30, 2024 Mechanical Apprentice Relationship Specialty Start Date End Date Paul Greco MD [address] [place] [address] PCP - General Internal Medicine 09/29/23 Team [...] 2024 End: August 06, 2024 Ambreen Delaney COMPRESSOR MECHANIC, COMPRESSOR MECHANIC-C Attending Provider Active Start: August 06, 2024 End: August 06, 2024 Ambreen Delaney COMPRESSOR MECHANIC, COMPRESSOR MECHANIC-C Referring Provider Active Start: August 06, 2024 End: August 06, 2024 Team Status: Inactive Member Role Status Sakshi Greco MD Primary Care Provider Active St art: August 13, 2024 End: August 13, 2024 Ambreen Delaney COMPRESSOR MECHANIC, COMPRESSOR MECHANIC-C Attending Provider Active Start: August 13, 2024 End: August 13, 2024 Ambreen Delaney COMPRESSOR MECHANIC, COMPRESSOR MECHANIC-C Referring Provider Active Start: August 13, 2024 [...] August 23, 2024 End: August 23, 2024 Mechanical Apprentice Relationship Specialty Start Date End Date Paul Greco MD [address] [facility] [address] [place], [place] [address] PCP - General Internal Medicine 09/29/23 Mechanical Apprentice Relationship Specialty Start Date End Date Paul Greco MD [address] [address] PCP - General Internal Medicine 09/29/23 Robert Farias MD [address] [place], [place] [address] Rheumatology 10/04/24 Mechanical Apprentice Relationship Specialty Start Date End Date Paul Greco MD [address] [facility] [address] [place] [address] PCP - General Internal Medicine 09/29/23 Robert Farias MD [address] [place], [place] [id number] Rheumatology 10/04/24 Mechanical Apprentice Relationship Specialty Start Date End Date Paul Greco MD [address] [facility] [address] [place], [place] [id number] PCP - General Internal Medicine 09/29/23 Robert Farias MD [address] [place], [place] [address] Rheumatology 10/04/24 Mechanical Apprentice Relationship Specialty Start Date End Date Paul Greco MD [address] [address] PCP - General Internal Medicine 09/29/23 Robert Farias MD [address] [place] [address] Rheumatology 10/04/24 Team Status: Active Member Role/Relationship [...] 2024 End: July 30, 2024 Ambreen Delaney COMPRESSOR MECHANIC, COMPRESSOR MECHANIC-C Attending Provider Active Start: July 30, 2024 End: July 30, 2024 Team Status: Inactive Member Role/Relationship Status Sakshi Greco MD Primary Care Provider Active St art: August 06, 2024 End: August 06, 2024 Ambreen Delaney COMPRESSOR MECHANIC, COMPRESSOR MECHANIC-C Attending Provider Active Start: August 06, 2024 End: August 06, 2024 Ambreen Delaney COMPRESSOR MECHANIC, COMPRESSOR MECHANIC-C Referring Provider Active Start: August 06, 2024 End: August 06, 2024 Team Status: Inactive Member Role/Relationship Status Dates Paul Greco MD Primary Care Provider Active St art: August 13, 2024 End: August 13, 2024 Ambreen Delaney COMPRESSOR MECHANIC, COMPRESSOR MECHANIC-C Attending Provider Active Start: August 13, 2024 End: August 13, 2024 Ambreen Delaney COMPRESSOR MECHANIC, COMPRESSOR MECHANIC-C Referring Provider Active Start: August 13, 2024 [...] 2024 End: October 29, 2024 Ambreen Delaney COMPRESSOR MECHANIC, COMPRESSOR MECHANIC-C Attending Provider Active Start: October 29, 2024 End: October 29, 2024 Mechanical Apprentice Relationship Specialty Start Date End Date Paul Greco MD [address] [facility] [address] [place], [place] [id number] PCP - General Internal Medicine 09/29/23 Robert Farias MD [address] [place], [place] [id number] Rheumatology 10/04/24 Mechanical Apprentice Relationship Specialty Start Date End Date Paul Greco MD [address] [facility] [address] [place] [address] PCP - General Internal Medicine 09/29/23 Robert Farias MD [address] [place] [address] Rheumatology 10/04/24 Mechanical Apprentice Relationship Specialty Start Date End Date Paul Greco MD [address] [facility] [address] [place] [address] PCP - General Internal Medicine 09/29/23 Robert Farias MD [address] [place] [address] Rheumatology 10/04/24 Mechanical Apprentice Relationship Specialty Start Date End Date Paul Greco MD [address] [facility] [address] [place] [address] PCP - General Internal Medicine 09/29/23 Robert Farias MD [address] [place], [place] [address] Rheumatology 10/04/24 Goals (unrecognized section and content) Goals may be documented in a n alternate sectionGoals may be documented in an alternate sectionGoals may be documented in an alternate sectionGoals may be documented in an alternate section INFORMATION SOURCE (unrecogn ized section and content) DATE CREATED AUTHOR 08/15/2022 [facility] DATE CREATED AUTHOR AUTHOR'S ORGANIZ ATION 10/30/2024 [facility] DATE CREATED AUTHOR AUTHOR'S ORGANIZ ATION 12/22/2024 [facility] DATE CREATED AUTHOR AUTHOR'S ORGANIZ ATION 01/03/2025 [facility] Inactive Administered Medications - up to 3 [...] BE BASED ON THE PRIMARY CLINICAL RECORDS. Info [facility]. provides no warranty or guarantee of the accuracy or completeness of information in this document.
[2025-02-26 09:10] LABS: Hematocrit 42.5 % (37-47); Hemoglobin 13.5 g/dL (12.0-15.0); Immature Granulocytes Count 0.010 X10^3/uL (0.0-0.0); Mean Corp Hgb Conc 31.8 g/dL (32-36); Mean Corpuscular Volume 88.0 fL (81-99); Mean Platelet Vol. 11.0 fl (6.2-12.0); NRBC Flagged by Analyzer 0 % (0-5); Platelet Count 180 K/mm3 (150-450); RBC Distribution Width CV 15.6 % (11.6-14.6); RBC Distribution Width SD 50.5 fl (35.1-43.9); Red Blood Count 4.83 M/mm3 (4.2-5.4); White Blood Count 5.3 K/mm3 (4.4-11.0)
[2025-02-26 09:25] LABS: Internal QC Validated? YES +Cl - CLEAR BKGD; Pregnancy, Serum, hCG Quali. NEGATIVE Negative
[2025-02-26 09:30] LABS: Anion Gap 10 (7-18); BUN 11 mg/dL (4-19); BUN/Creat Ratio 14.1 RATIO (10-20); Calcium,Total 9.6 mg/dL (7.6-11.0); Carbon Dioxide 27.0 mmol/L (20.0-29.0); Chloride 104 mmol/L (96-106); Glucose 143 mg/dL (70-99); Potassium 3.6 mmol/L (3.5-5.1)
== END | disposition home or self-care (01) ==
LOC: CVS 07:43
PROVIDERS: PCP Family Medicine; Referring Provider Nurse Practitioner Gerontology; Visit Provider Nurse Practitioner Gerontology
DX: R07.9 Chest pain, unspecified (principal); R06.02 Shortness of breath; I25.10 Atherosclerotic heart disease of native coronary artery without angina pectoris
CPT/HCPCS: 36415; 80048; 84703; 85025; 93306